=== PATIENT | female | born 1950 | race African-American/Black ===

== ENCOUNTER 2017-03-02 10:04 | Inpatient (IN) | payer OTHER ==
[2017-03-02 10:56] VITALS: BMI 51.5
[2017-03-02] MEDS ORDERED: methylPREDNISolone NA SUCC 125 MG/2 ML VIAL IVPB ONE (11:04)
[2017-03-02] MEDS ORDERED: ASPIRIN 81 MG CHEWABLE TABLETS PO ONE (11:05)
--- NOTE | 2017-03-02 11:09 | PDOC ---
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 Patient reports having a nose bleed last night. She reports waking up today with diffuse chest pain with slight wheezing. She alerted EMS and was given one nebulizer treatment with slight relief of symptoms. Patient states she was given steroid medication for two weeks and finished the medication yesterday. 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 Hernandez PCP: Dr. Jerome Springer <Paige Swanson - Last Filed: 03/02/17 15:29> - General Chief Complaint: Chest Pain Stated Complaint: Shortness of Breath Time Seen by Provider: 03/02/17 10:20 Past History - Past Medical History Anemia: Yes Asthma: Yes Cancer: No Cardiac Disorders: No CVA: Yes COPD: Yes CHF: Yes Dementia: No Diabetes: No GI Disorders: No Disorders: No HTN: Yes Hypercholesterolemia: Yes Liver Disease: No Seizures: No Thyroid Disease: No Other medical history: hx of PE, RA - Surgical History Cardiac Surgery: No Neurologic Surgery: No Orthopedic Surgery: Yes - Immunization History Immunization Up to Date: Yes - Psycho/Social/Smoking Cessation Hx Anxiety: No Suicidal Ideation: No Smoking Status: No Smoking History: Former smoker Have you smoked in the past 12 months: No Number of Cigarettes Smoked Daily: 0 If you are a former smoker, when did you quit?: 1999 Cigars Per Day: 5 Information on smoking cessation initiated: No 'Breaking Loose' booklet given: 11/20/13 Hx Alcohol Use: No Drug/Substance Use Hx: No Substance Use Type: None Hx Substance Use Treatment: No <Jay Hyman - Last Filed: 03/02/17 14:10> <Paige Swanson - Last Filed: 03/02/17 15:29> - Past Medical History Allergies/Adverse Reactions: Allergies Allergy/AdvReac Type Severity Reaction Status Date / Time No Known Allergies Allergy Verified 03/02/17 10:40 Home Medications: Ambulatory Orders Mometasone Furoate [Nasonex] 1 - 2 inh NS PRN 01/21/14 Olmesartan/Hydrochlorothiazide [Benicar Hct 20-12.5 mg Tablet] 1 each PO DAILY 01/21/14 Promethazine/Phenyleph/Codeine [Promethazine Vc-Codeine Syrup] 120 ml PO PRN Aspirin [ASA -] 81 mg PO DAILY #30 tab.chew 08/03/14 Cholecalciferol (Vitamin D3) [Vitamin D3] 2,000 unit PO DAILY #30 capsule Docusate Sodium [Colace -] 200 mg PO PRN #30 capsule 08/03/14 Miconazole Nitrate [Miconazole Nitrate -] 1 applic TP PRN #7 tube 08/03/14 Clobetasol Propionate/Emoll [Olux-E 0.05% Foam] 100 gm TP PRN 11/20/15 Acetaminophen [Tylenol] 650 mg PO TID PRN 11/23/15 Colchicine [Colcrys] 0.6 mg PO DAILY PRN 11/23/15 Levalbuterol Tartrate [Xopenex Hfa] 15 gm IH BID 11/23/15 Nystatin Oral Suspension - [Nystatin Oral Susp 203838 Units/5 ML -] 5 ml PO BID 11/23/15 Olopatadine HCl [Patanase] 665 mcg NS DAILY 11/23/15 Albuterol 0.083% Nebulizer Claudia [Ventolin 0.083% Nebulizer Soln -] 1 neb NEB QID PRN #7 vial 11/26/15 Budesonide/Formeterol Fumarate [SYMBICORT 160/4.5mcg -] 1 inh PO BID #7 inhaler 11/26/15 Cyclosporine [Restasis] 1 each OP BID #30 droperette 11/26/15 Ferrous Sulfate [Feosol] 325 mg PO TID #30 ud 11/26/15 Furosemide [Lasix -] 20 mg PO BID #60 tablet 11/26/15 Guaifenesin AC [Robitussin AC -] 5 ml PO Q6H PRN #30 liquid 11/26/15 Meclizine HCl [Antivert -] 12.5 mg PO BID #30 tablet 11/26/15 Nifedipine ER [Procardia XL -] 30 mg PO DAILY #30 tab.er.24 11/26/15 Pantoprazole Sodium [Protonix -] 40 mg PO DAILY #30 tablet.ec 11/26/15 Prednisone [Deltasone -] 25 mg PO BID #30 tablet 11/26/15 Rosuvastatin Calcium [Crestor] 10 mg PO HS #30 tablet 11/26/15 Tiotropium [place] [Spiriva] 1 inh PO DAILY #7 inh 11/26/15 Warfarin Na [Coumadin -] 4 mg PO [id number]@1800 #30 tablet 11/26/15 Review of Systems - Review of Systems Constitutional: No: Chills, Fever HEENTM: No: Nose Congestion Respiratory: Yes: Cough, Shortness of Breath Cardiac (ROS): Yes: Chest Pain ABD/GI: No: Nausea, Vomiting Musculoskeletal: No: Muscle Pain All Other Systems: Reviewed and Negative <Jay Hyman - Last Filed: 03/02/17 14:10> - Review of Systems Able to Perform ROS?: Yes Comments:: 03/02/17 11:35 CONSTITUTIONAL: Absent: fever, no chills, no fatigue EYES: Absent: visual changes ENT: Present: Epistaxis Absent: ear pain, no sore throat CARDIOVASCULAR: Absent: chest pain, no palpitations RESPIRATORY: Present: Shortness of breath and wheezing Absent: cough GI: Absent: abdominal pain, no nausea, no vomiting, no constipation, no diarrhea GENITOURINARY: Absent: dysuria, no frequency, no hematuria MUSCULOSKELETAL: Absent: back pain, no arthralgia, no myalgia SKIN: Absent: rash NEURO: Absent: headache <Uts,Paige - Last Filed: 03/02/17 15:29> *Physical Exam - Vital Signs Last Vital Signs Temp Pulse Resp BP Pulse Ox 98.6 F 108 H 20 147/70 98 03/02/17 10:40 03/02/17 10:40 03/02/17 10:40 03/02/17 10:40 03/02/17 10:40 <Jay Hyman - Last Filed: 03/02/17 14:10> - Vital Signs Last Vital Signs Temp Pulse Resp BP Pulse Ox 98.6 F 108 H 20 147/70 98 03/02/17 10:40 03/02/17 10:40 03/02/17 10:40 03/02/17 10:40 03/02/17 10:40 - Physical Exam Comments: 03/02/17 11:36 GENERAL: Morbidly obese. Speaks in full sentences. Well-appearing, well-nourished. No apparent distress. HEENT: Left lateral subconjunctival hemorrhage. No chemosis. Normocephalic, atraumatic. PERRL, EOM intact. CARDIOVASCULAR: Normal S1, S2. Regular rate and rhythm. PULMONARY: Tachypnea. Distant breath sounds with some end expiratory wheezing. Prolonged expiration. No focal decreased breath sounds. ABDOMEN: Discomfort in the upper abdomen, no guarding. EXTREMITIES: 1+ edema in the bilateral lower extremities, with no calf tenderness or swelling. SKIN: Warm, dry. No rash NEUROLOGICAL: No focal neurological deficits. <Paige Swanson - Last Filed: 03/02/17 15:29> Heart Score/ECG Review #1 ECG reviewed & interpreted by me at: 10:41 General ECG Interpretation: Sinus Rhythm (tachy at 113), Normal Intervals (qtc 419), No acute ischemic changes <Jay Hyman - Last Filed: 03/02/17 14:10> ED Treatment Course - LABORATORY CBC & Chemistry Diagram: 03/02/17 11:00 03/02/17 11:00 - RADIOLOGY Radiology Studies Ordered: Category Date Time Status CHEST X-RAY PORTABLE* [RAD] Stat Radiology 03/02/17 10:36 Ordered <Jay Hyman - Last Filed: 03/02/17 14:10> - LABORATORY CBC & Chemistry Diagram: 03/02/17 11:00 03/02/17 11:00 - Medications Given in the ED: ED Medications Discontinued Medications Generic Name Dose Route Start Last Admin Trade Name Freq PRN Reason Stop Dose Admin Aspirin 162 mg 03/02/17 11:05 03/02/17 11:22 Asa - PO 03/02/17 11:06 162 mg ONCE ONE Administration Methylprednisolone Sodium Succinate 125 mg 03/02/17 11:04 03/02/17 11:22 Solu-Medrol - IVPB 03/02/17 11:05 125 mg ONCE ONE Administration <Paige Swanson - Last Filed: 03/02/17 15:29> Medical Decision Making - Medical Decision Making 03/02/17 11:06 A portion of this note was documented by scribe services under my direction. I have reviewed the details of the note, within reason, and agree with the documentation with the following case summary and management plan written by me. 66-year-old female with history of COPD on home O2 and CHF p/w chest congestion and L chest pain since this morning. EMS activated, given nebulizers with some improvement. no clear precipitating risk factor of change in cough/fever. vitals as noted, tachypneic diffuse end expiratory wheeze with prolonged expiration abdomen soft 66y/o F with both COPD and CHF p/w chest congestion/wheezing with some chest pain. Seems more consistent with COPD exacerbation, possible fluid. labs, ua ekg, cxr nebs, steroids, asa admit 03/02/17 13:27 White count 15.9, but completed steroid course yesterday. Hemoglobin 7.9, slightly worse than her baseline of 9. Creatinine 1.3, which is her baseline, troponin negative. Chest x-ray shows CHF but no acute infiltrate. Feels much better after nebulizers, received steroids. Will proceed with admission, Dr. 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 03/02/17 14:10 Accepted for inpatient tele by Dr. Whitlock, covering Dr. Springer. <Jay Hyman - Last Filed: 03/02/17 14:10> - Medical Decision Making 03/02/17 14:[address] Whitlock <Paige Swanson - Last Filed: 03/02/17 15:29> *DC/Admit/Observation/Transfer - Discharge Dispostion Admit: Yes <Jay Hyman - Last Filed: 03/02/17 14:10> - Attestations Scribe Attestion: 03/02/17 11:40 Documentation prepared by Paige Swanson, acting as medical officer psychiatry for Jay Hyman MD. <Paige Swanson - Last Filed: 03/02/17 15:29> Diagnosis at time of Disposition: COPD exacerbation CHF (congestive heart failure) Qualifiers: Congestive heart failure type: unspecified congestive heart failure type Congestive heart failure chronicity: chronic Qualified Code(s): I50.9 - Heart failure, unspecified - Discharge Dispostion Condition at time of disposition: Fair - Referrals
[2017-03-02 11:10] LABS: BASOPHIL 0.5 % (0-2.0); EOSINOPHIL 0.6 % (0-4.5); MCH 21.7 pg (25.7-33.7); MCHC 28.6 g/dl (32.0-36.0); MEAN CELL VOLUME 75.9 fl (80-96); MEAN PLT VOLUME 8.5 fl (7.5-11.1); NEUTROPHILS 84.9 % (42.8-82.8); PLATELET COUNT 219 K/MM3 (134-434); RDW 15.9 % (11.6-15.6); WHITE BLOOD COUNT 15.9 K/mm3 (4.0-10.0)
[2017-03-02] MEDS ORDERED: ASPIRIN 81 MG CHEWABLE TABLETS ONE (11:17)
[2017-03-02] MEDS ORDERED: methylPREDNISolone NA SUCC 125 MG/2 ML VIAL ONE (11:17)
[2017-03-02] MEDS ORDERED: ALBUTEROL SO4 2.5/IPRATROPIUM 0.5 INH SOL 3 ML VIAL.NEB. NEB ONE (11:17)
[2017-03-02] MEDS: ALBUTEROL SO4 2.5/IPRATROPIUM 0.5 INH SOL 3 ML VIAL.NEB. NEB SCH ×3 (11:22→13:43)
[2017-03-02 11:28] LABS: PROTHROMBIN TIME (PATIENT) 45.8 SEC (9.98-11.88)
[2017-03-02 11:48] LABS: ALBUMIN 3.5 g/dl (3.4-5.0); ANION GAP 8 (8-16); BILIRUBIN,TOTAL 0.3 mg/dL (0.2-1.0); CALCIUM 8.2 mg/dL (8.5-10.1); CO2 32 mmol/L (21-32); CREATININE 1.3 mg/dL (0.55-1.02); GLUCOSE,RANDOM 131 mg/dL (74-106); MAGNESIUM 1.8 mg/dL (1.8-2.4); SGOT/AST 19 U/L (15-37); SGPT/ALT 26 U/L (12-78); TOT PROT 6.5 g/dl (6.4-8.2)
[2017-03-02 11:49] LABS: ALK PHOS 66 U/L (45-117); TROPONIN I < 0.02 ng/ml (0.00-0.05)
[2017-03-02 11:52] LABS: INR 4.05 (0.82-1.09)
--- NOTE | 2017-03-02 12:34 | EKG ---
Test Reason : Blood Pressure : / mmHG Vent. Rate : 113 BPM Atrial Rate : 113 BPM P-R Int : 162 ms QRS Dur : 062 ms QT Int : 306 ms P-R-T Axes : 067 -04 019 degrees QTc Int : 419 ms SINUS TACHYCARDIA LOW VOLTAGE QRS POSSIBLE INFERIOR INFARCT , AGE UNDETERMINED ABNORMAL ECG WHEN COMPARED WITH ECG OF 20-NOV-2015 05:57, NO SIGNIFICANT CHANGE WAS FOUND Confirmed by CESAR CEVALLOS MD ([id number]) on 03/02/2017 12:34:40 PM Referred By: Confirmed By:CESAR CEVALLOS MD
[2017-03-02] MEDS ORDERED: LEVOFLOXACIN 750 MG IVPB 150 ML IVPB ONE (15:52)
--- NOTE | 2017-03-02 16:00 | PN ---
Teaching Attending Note Name of Resident: Peter Bolivar ATTENDING PHYSICIAN STATEMENT I saw and evaluated the patient. I reviewed the resident's note and discussed the case with the resident. I agree with the resident's findings and plan as documented. PULMONARY IMP DYSPNEA ADVANCED COPD O2 DEPENDENT WITH ACUTE EXACERBATION CHRONIC HYPOXEMIC RESPIRATORY CHF PULMONARY HTN H/O PULMONARY EMBOLISM EPISTAXIS SUPRA-THERAPEUTIC INR PLAN INHALED BRONCHODILATORS O2 ANTIBIOTICS SPUTUM C+S CHEST CT MONITOR INR ENT EVALUATION DR FOX
--- NOTE | 2017-03-02 16:06 | CONSULT ---
Consultation: REQUESTING PROVIDER: CONSULT REQUEST: We have been asked to medically evaluate this patient for ( pulmonology). HISTORY OF PRESENT ILLNESS: 66 y/o f with pmh of copd, chf, stroke, pulmonary embolism, pulmonary htn. Came to hospital with a complaint sob and chest pain. Patient states that she woke up with sob, she states that she has couple of episodes of copd excerbration every year. She states that this sob is also like her old one and she has weezing with it. Denies swelling in legs, denies recent travel. Patient states that she was on antibiotics and steroid taper. She finished her antibiotics around 10 days ago but from thursday she agian started having productive cough, yellow color sputum, increasing. She also report chills but denies fever. Patient also states that she has chest pain in middle of chest, and left side, radiating to left arm, constant, increase on lying down and got better with nebulizer therapy. Denies trauma to chest. Patient also reports epistaxis last night, which lasted for more than 2 hours. She states normally when she has epistaxis it stop in 15-20min. Patient also complaints of vaginal yeast infection. in ED patient got duoneb treatment and patient feels better. wheezing improved. REVIEW OF SYSTEMS: CONSTITUTIONAL: Absent: fever, chills, diaphoresis, HEENT: Absent: rhinorrhea, nasal congestion, throat pain, throat swelling, CARDIOVASCULAR: Absent: chest pain, syncope, palpitations, irregular heart rate, lightheadedness , peripheral edema RESPIRATORY: Absent: cough, shortness of breath, dyspnea with exertion, orthopnea, wheezing, stridor, hemoptysis GASTROINTESTINAL: Absent: abdominal pain, abdominal distension, nausea, vomiting, diarrhea, constipation, GENITOURINARY: Absent: dysuria, frequency, urgency, hesitancy, NEUROLOGIC: Absent: headache, PHYSICAL EXAMINATION GENERAL: Awake, alert, and fully oriented, in no acute distress. HEAD: Normal with no signs of trauma. EARS, NOSE, THROAT: Ears normal, nares patent. Moist mucous membranes. NECK: Normal range of motion, supple without lymphadenopathy, JVD, or masses. LUNGS: Breath sounds equal, clear to auscultation bilaterally.mild expiratory wheez HEART: Regular rate and rhythm, normal S1 and S2 without murmur, rub or gallop. ABDOMEN: Soft, nontender, not distended, normoactive bowel sounds, MUSCULOSKELETAL: Normal range of motion at all joints. No bony deformities or tenderness. No CVA tenderness. UPPER EXTREMITIES: 2+ pulses, warm, well-perfused. No cyanosis. LOWER EXTREMITIES: 2+ pulses, warm, well-perfused. No calf tenderness. No peripheral edema. Active Medications Generic Name Dose Route Start Last Admin Trade Name Freq PRN Reason Stop Dose Admin Albuterol Sulfate 1 amp 03/02/17 15:42 Ventolin 0.083% Nebulizer Soln - NEB Q4H PRN SHORT OF BREATH/WHEEZING Albuterol/Ipratropium 1 amp 03/02/17 15:42 Duoneb - NEB Q6H PRN SHORTNESS OF BREATH Levofloxacin 150 mls @ 100 mls/hr 03/02/17 15:52 Levaquin 750 Mg Premixed Ivpb - IVPB 03/02/17 17:21 ONCE ONE Methylprednisolone Sodium Succinate 40 mg 03/02/17 21:00 Solu-Medrol - IVPB Q6H-IV SAIMA Miconazole Nitrate 1 applic 03/02/17 22:00 Monistat-7 Vaginal Cream - VG 03/08/17 22:01 HS SAIMA Nystatin 500,000 unit 03/02/17 22:00 Mycolog - PO TID SAIMA Sodium Chloride 2 spray 03/02/17 15:46 [place] Nasal [place] - NS TID PRN NASAL CONGESTION ASSESSMENT DYSPNEA copd excerbration, Has advanced copd with oxygen dependent in home chf epistaxis supra therapeutic inr h/o pulmonary hypertension h/o pulmonary embolism h/o stroke h/o htn PLAN duoneb nebulizer iv steroid oxygen keep spo2 . 90 antibitics, levaquin get sputum c/s urine for legioneall/ strep Ct chest w/o contrast monitor vitals monitor inr ent evaluation cardiology evaluation Dispo: We will continue to follow the patient. Thank you for this consultative opportunity. Visit type - Emergency Visit Emergency Visit: Yes ED Registration Date: 03/02/17 Care time: The patient presented to the Emergency Department on the above date and was hospitalized for further evaluation of their emergent condition. - New Patient This patient is new to me today: Yes Date on this admission: 03/02/17 - Critical Care Critical Care patient: No
[2017-03-02] MEDS: ALBUTEROL SO4 2.5/IPRATROPIUM 0.5 INH SOL 3 ML VIAL.NEB. NEB PRN ×2 (16:23→22:39)
[2017-03-02 17:34] LABS: HYPOCHROMIA 2+; POLYCHROMASIA 1+
[2017-03-02] MEDS ORDERED: methylPREDNISolone NA SUCC 40 MG/1 ML VIAL IVPB SCH (21:00)
--- NOTE | 2017-03-02 21:22 | HP ---
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 Patient reports having a nose bleed last night. She reports waking up today with diffuse chest pain with slight wheezing. She alerted EMS and was given one nebulizer treatment with slight relief of symptoms. 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 Cardiovascular: Yes: CHF (chronic diastolic), HTN, Hyperlipdemia Pulmonary: Yes: COPD, O2 Dependent, Pulmonary Embolus, Other (pulmonary HTN) - Smoking History Smoking history: Former smoker Have you smoked in the past 12 months: No Aproximately how many cigarettes per day: 0 If you are a former smoker, when did you quit?: 1998 - Alcohol/Substance Use Hx Alcohol Use: No - Social History History of Recent Travel: No Home Medications - Allergies Allergies/Adverse Reactions: Allergies Allergy/AdvReac Type Severity Reaction Status Date / Time No Known Allergies Allergy Verified 03/02/17 10:40 - Home Medications Home Medications: Ambulatory Orders Mometasone Furoate [Nasonex] 1 - 2 inh NS PRN 01/21/14 Olmesartan/Hydrochlorothiazide [Benicar Hct 20-12.5 mg Tablet] 1 each PO DAILY 01/21/14 Promethazine/Phenyleph/Codeine [Promethazine Vc-Codeine Syrup] 120 ml PO PRN Aspirin [ASA -] 81 mg PO DAILY #30 tab.chew 08/03/14 Cholecalciferol (Vitamin D3) [Vitamin D3] 2,000 unit PO DAILY #30 capsule Docusate Sodium [Colace -] 200 mg PO PRN #30 capsule 08/03/14 Miconazole Nitrate [Miconazole Nitrate -] 1 applic TP PRN #7 tube 08/03/14 Clobetasol Propionate/Emoll [Olux-E 0.05% Foam] 100 gm TP PRN 11/20/15 Acetaminophen [Tylenol] 650 mg PO TID PRN 11/23/15 Colchicine [Colcrys] 0.6 mg PO DAILY PRN 11/23/15 Levalbuterol Tartrate [Xopenex Hfa] 15 gm IH BID 11/23/15 Nystatin Oral Suspension - [Nystatin Oral Susp 102534 Units/5 ML -] 5 ml PO BID 11/23/15 Olopatadine HCl [Patanase] 665 mcg NS DAILY 11/23/15 Albuterol 0.083% Nebulizer Claudia [Ventolin 0.083% Nebulizer Soln -] 1 neb NEB QID PRN #7 vial 11/26/15 Budesonide/Formeterol Fumarate [SYMBICORT 160/4.5mcg -] 1 inh PO BID #7 inhaler 11/26/15 Cyclosporine [Restasis] 1 each OP BID #30 droperette 11/26/15 Ferrous Sulfate [Feosol] 325 mg PO TID #30 ud 11/26/15 Furosemide [Lasix -] 20 mg PO BID #60 tablet 11/26/15 Guaifenesin AC [Robitussin AC -] 5 ml PO Q6H PRN #30 liquid 11/26/15 Meclizine HCl [Antivert -] 12.5 mg PO BID #30 tablet 11/26/15 Nifedipine ER [Procardia XL -] 30 mg PO DAILY #30 tab.er.24 11/26/15 Pantoprazole Sodium [Protonix -] 40 mg PO DAILY #30 tablet.ec 11/26/15 Prednisone [Deltasone -] 25 mg PO BID #30 tablet 11/26/15 Rosuvastatin Calcium [Crestor] 10 mg PO HS #30 tablet 11/26/15 Tiotropium [place] [Spiriva] 1 inh PO DAILY #7 inh 11/26/15 Warfarin Na [Coumadin -] 4 mg PO MoTuThFrSa@1800 #30 tablet 11/26/15 Family Disease History - Family Disease History Family History: Unremarkable Review of Systems - Review of Systems Constitutional: reports: Weakness Eyes: reports: Other (conjunctival hemorrhae lt eye w/ itchyness) Neck: reports: No Symptoms Cardiovascular: reports: Shortness of Breath Respiratory: reports: Cough, SOB, Wheezing Gastrointestinal: reports: No Symptoms Genitourinary: reports: No Symptoms Physical Examination Vital Signs: Vital Signs Temperature 98.3 F 03/02/17 19:57 Pulse Rate 104 H 03/02/17 19:57 Respiratory Rate 22 03/02/17 19:57 Blood Pressure 184/92 03/02/17 19:57 O2 Sat by Pulse Oximetry (%) 95 03/02/17 19:57 Constitutional: Yes: Obese Eyes: Yes: Other (Lt conjunctival hemorrhage) HENT: Yes: WNL Neck: Yes: Supple Cardiovascular: Yes: WNL, Regular Rate and Rhythm Respiratory: Yes: Wheezes Gastrointestinal: Yes: WNL, Normal Bowel Sounds, Soft, Abdomen, Obese Problem List - Problems (1) COPD exacerbation Assessment/Plan: Cont IV steroids/antibx Pulmonary consult Cont nebulizers Cont symbicort Code(s): J44.1 - CHRONIC OBSTRUCTIVE PULMONARY DISEASE W (ACUTE) EXACERBATION (2) Chronic diastolic (congestive) heart failure Code(s): I50.32 - CHRONIC DIASTOLIC (CONGESTIVE) HEART FAILURE (3) Coronary artery disease Code(s): I25.10 - ATHSCL HEART DISEASE OF [place] CORONARY ARTERY W/O ANG PCTRS (4) DVT (deep venous thrombosis) Assessment/Plan: Hold coumadin for today Daily PT/INR and adjust coumadin dose Code(s): I82.409 - ACUTE EMBOLISM AND THOMBOS UNSP DEEP VN UNSP LOWER EXTREMITY (5) History of pulmonary embolism Code(s): Z86.711 - PERSONAL HISTORY OF PULMONARY EMBOLISM (6) Hypertension Code(s): I10 - ESSENTIAL (PRIMARY) HYPERTENSION (7) Obesity Code(s): E66.9 - OBESITY, UNSPECIFIED
[2017-03-02] MEDS ORDERED: FUROSEMIDE 20 MG TABLET (FP) PO SCH (22:00)
[2017-03-02] MEDS ORDERED: NYSTATIN 500,000 UNITS TABLET PO SCH (22:00)
[2017-03-02] MEDS ORDERED: PATIENT'S OWN MEDICATION (NON-FORMULARY) (Cyclosporine [Restasis] 1 EACH) OP SCH (22:00)
[2017-03-02] MEDS: BUDESONIDE/FORMETEROL FUMARATE 160/4.5 mcg INHALER IH SCH (22:32)
[2017-03-02] MEDS: ACLIDINIUM BROMIDE 400 MCG/INH AERO.POWD IH SCH (22:33)
[2017-03-02] MEDS: MICONAZOLE NITRATE 2% VAGINAL CREAM 45 GM TUBE VG SCH (22:34)
[2017-03-02] MEDS: FERROUS SO4 325 MG TABLET (FP) PO SCH (22:34)
[2017-03-02] MEDS: MECLIZINE HCL 12.5 MG TABLET PO SCH (22:34)
[2017-03-02] MEDS: ROSUVASTATIN CA 10 MG TABLET (FP) PO SCH (22:34)
[2017-03-02] MEDS: FLUTICASONE PROP 0.05% 16 GM NASAL SPRAY NS SCH (22:34)
[2017-03-02] MEDS: NYSTATIN 500,000 UNITS/5 ML SUSPENSION PO SCH (22:36)
[2017-03-03] MEDS: methylPREDNISolone NA SUCC 40 MG/1 ML VIAL IVPB SCH ×3 (02:10→17:49)
[2017-03-03] MEDS: ALBUTEROL SO4 0.083% IH SOL 2.5 MG/3 ML VIAL.NEB. NEB PRN ×2 (06:15→14:30)
[2017-03-03] MEDS: FERROUS SO4 325 MG TABLET (FP) PO SCH ×3 (06:37→21:47)
[2017-03-03] MEDS: NYSTATIN 500,000 UNITS/5 ML SUSPENSION PO SCH ×3 (06:39→21:48)
[2017-03-03 08:09] LABS: BASOPHIL 0.1 % (0-2.0); MCH 21.6 pg (25.7-33.7); MCHC 28.4 g/dl (32.0-36.0); MEAN CELL VOLUME 76.2 fl (80-96); MEAN PLT VOLUME 9.4 fl (7.5-11.1); NEUTROPHILS 88.2 % (42.8-82.8); PLATELET COUNT 255 K/MM3 (134-434); RDW 15.6 % (11.6-15.6); WHITE BLOOD COUNT 16.2 K/mm3 (4.0-10.0)
--- NOTE | 2017-03-03 08:19 | CON.CARD ---
Consult Consult Specialty:: Cardiology Referred by:: ER Reason for Consultation:: Chest pain, sob - History of Present Illness Chief Complaint: Chest pain, sob History of Present Illness: 66 year old woman with a history of HTN, HLD, normal coronary arteries on cardiac cath 2013, chronic diastolic chf, COPD, pulm HTN, h/o Pulmonary embolism , CVA on coumadin admitted with chest pain and sob. Pt. seen and examined today in nad. Pt. states that thursday night she noticed hemorrhage in her left eye. when she woke up thursday morning she felt chest pain and sob. she does note a recent URI for which she was tx with Abx and steroids starting approx 1 week ago. SOB worse with exertion. denies pnd, orthopnea, or LE edema. no lightheadedness, dizziness, syncope, or near syncope. 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 Cardio/Vascular: Yes: CHF (chronic diastolic), HTN, Hyperlipdemia Pulmonary: Yes: COPD, O2 Dependent, Pulmonary Embolus, Other (pulmonary HTN) - Alcohol/Substance Use Hx Alcohol Use: No - Smoking History Smoking history: Former smoker Have you smoked in the past 12 months: No Aproximately how many cigarettes per day: 0 If you are a former smoker, when did you quit?: 1998 - Social History Usual Living Arrangement: Alone History of Recent Travel: No Home Medications - Allergies Allergies/Adverse Reactions: Allergies Allergy/AdvReac Type Severity Reaction Status Date / Time No Known Allergies Allergy Verified 03/02/17 10:40 - Home Medications Home Medications: Ambulatory Orders Mometasone Furoate [Nasonex] 1 - 2 inh NS PRN 01/21/14 Olmesartan/Hydrochlorothiazide [Benicar Hct 20-12.5 mg Tablet] 1 each PO DAILY 01/21/14 Promethazine/Phenyleph/Codeine [Promethazine Vc-Codeine Syrup] 120 ml PO PRN Aspirin [ASA -] 81 mg PO DAILY #30 tab.chew 08/03/14 Cholecalciferol (Vitamin D3) [Vitamin D3] 2,000 unit PO DAILY #30 capsule Docusate Sodium [Colace -] 200 mg PO PRN #30 capsule 08/03/14 Miconazole Nitrate [Miconazole Nitrate -] 1 applic TP PRN #7 tube 08/03/14 Clobetasol Propionate/Emoll [Olux-E 0.05% Foam] 100 gm TP PRN 11/20/15 Acetaminophen [Tylenol] 650 mg PO TID PRN 11/23/15 Colchicine [Colcrys] 0.6 mg PO DAILY PRN 11/23/15 Levalbuterol Tartrate [Xopenex Hfa] 15 gm IH BID 11/23/15 Nystatin Oral Suspension - [Nystatin Oral Susp 274404 Units/5 ML -] 5 ml PO BID 11/23/15 Olopatadine HCl [Patanase] 665 mcg NS DAILY 11/23/15 Albuterol 0.083% Nebulizer Claudia [Ventolin 0.083% Nebulizer Soln -] 1 neb NEB QID PRN #7 vial 11/26/15 Budesonide/Formeterol Fumarate [SYMBICORT 160/4.5mcg -] 1 inh PO BID #7 inhaler 11/26/15 Cyclosporine [Restasis] 1 each OP BID #30 droperette 11/26/15 Ferrous Sulfate [Feosol] 325 mg PO TID #30 ud 11/26/15 Furosemide [Lasix -] 20 mg PO BID #60 tablet 11/26/15 Guaifenesin AC [Robitussin AC -] 5 ml PO Q6H PRN #30 liquid 11/26/15 Meclizine HCl [Antivert -] 12.5 mg PO BID #30 tablet 11/26/15 Nifedipine ER [Procardia XL -] 30 mg PO DAILY #30 tab.er.24 11/26/15 Pantoprazole Sodium [Protonix -] 40 mg PO DAILY #30 tablet.ec 11/26/15 Prednisone [Deltasone -] 25 mg PO BID #30 tablet 11/26/15 Rosuvastatin Calcium [Crestor] 10 mg PO HS #30 tablet 11/26/15 Tiotropium [place] [Spiriva] 1 inh PO DAILY #7 inh 11/26/15 Warfarin Na [Coumadin -] 4 mg PO MoTuThFrSa@1800 #30 tablet 11/26/15 Vital Signs: Vital Signs Temperature 98.6 F 03/03/17 06:00 Pulse Rate 88 03/03/17 06:00 Respiratory Rate 20 03/03/17 06:00 Blood Pressure 126/63 03/03/17 06:00 O2 Sat by Pulse Oximetry (%) 95 03/02/17 21:00 - Other Data Labs, Other Data: INR, PTT INR 4.05 (0.82-1.09) H* D 03/02/17 11:00 Assessment/Plan 66 year old woman with a history of HTN, HLD, normal coronary arteries on cardiac cath 2013, chronic diastolic chf, COPD, pulm HTN, h/o Pulmonary embolism , CVA on coumadin admitted with chest pain and sob. Pt. seen and examined today in nad. Pt. states that thursday night she noticed hemorrhage in her left eye. when she woke up thursday morning she felt chest pain and sob. she does note a recent URI for which she was tx with Abx and steroids starting approx 1 week ago. SOB worse with exertion. SOB/chest tightness-likely AE COPD, possible mild acute on chronic diastolic CHF , unlikely ACS -cardiac cath a few years ago showed normal coronary arteries -no ischemia on ekg -cardiac enzymes wnl x 1, would check another set -no arrhythmia on tele -not significantly volume overloaded, cont po Lasix -pulmonary f/up -unlikely recurrent PE given supratherapeutic INR on admission -can check echo to re-evaluate pulm htn, RV function, lv function -ok to dc tele HTN-adequately controlled -cont home medical regimen H/o PE's-supratherapeutic INR -hold coumadin until INR in target range
[2017-03-03 08:43] LABS: INR 3.88 (0.82-1.09); PROTHROMBIN TIME (PATIENT) 43.9 SEC (9.98-11.88)
[2017-03-03 08:55] LABS: ALBUMIN 3.8 g/dl (3.4-5.0); BILIRUBIN,TOTAL 0.3 mg/dL (0.2-1.0); COCKROFT - GAULT 78.013; CREATININE 1.3 mg/dL (0.55-1.02); TOT PROT 7.1 g/dl (6.4-8.2)
[2017-03-03] MEDS: HYDROCHLOROTHIAZIDE 12.5 MG CAPSULE (FP) PO SCH (09:39)
[2017-03-03] MEDS: LEVOFLOXACIN 500 MG IVPB 100 ML IVPB SCH (09:39)
[2017-03-03] MEDS: PANTOPRAZOLE 20 MG TABLET (FP) PO SCH (09:40)
[2017-03-03] MEDS: MECLIZINE HCL 12.5 MG TABLET PO SCH ×2 (09:40→21:46)
[2017-03-03] MEDS: NIFEdipine E.R. 30 MG TABLET (FP) PO SCH (09:40)
[2017-03-03] MEDS: VALSARTAN 160 MG TABLET (UD) PO SCH (09:40)
[2017-03-03] MEDS: ASPIRIN 81 MG CHEWABLE TABLETS PO SCH (09:40)
[2017-03-03] MEDS: BUDESONIDE/FORMETEROL FUMARATE 160/4.5 mcg INHALER IH SCH ×2 (09:42→21:47)
[2017-03-03] MEDS: FLUTICASONE PROP 0.05% 16 GM NASAL SPRAY NS SCH ×2 (09:43→21:49)
[2017-03-03] MEDS: ACLIDINIUM BROMIDE 400 MCG/INH AERO.POWD IH SCH (09:55)
[2017-03-03] MEDS ORDERED: AZITHROMYCIN IVPB 500 MG in DEXTROSE 5%-WATER - 250 ML IVPB SCH (10:00)
[2017-03-03] MEDS ORDERED: CEFTRIAXONE 1 GM in DEXTROSE 5%-WATER - 50 ML IVPB SCH (10:00)
[2017-03-03] MEDS ORDERED: OLOPATADINE HCL NS SCH (10:00)
[2017-03-03] MEDS ORDERED: PATIENT'S OWN MEDICATION (NON-FORMULARY) (Olmesartan/Hydrochlorothiazide [Benicar Hct 20-1 PO SCH (10:00)
--- NOTE | 2017-03-03 10:11 | PN ---
Physical Exam: SUBJECTIVE: Patient seen and examined patient states that she again woke up in morning with sob, but it has improved since yesterday. states lightheadedness has improved since yesterday denies chest pain, nausea, vomiting. complains of irritation in eye in right eye. wheezing decreased since yesterday. OBJECTIVE: Vital Signs Period Temp Pulse Resp BP Sys/Nielsen Pulse Ox Last 24 Hr 98.1 F-98.6 F 61-108 16-22 126-184/63-94 95-100 GENERAL: Awake, alert, and fully oriented, in no acute distress. HEAD: Normal with no signs of trauma. EARS, NOSE, THROAT: Ears normal, nares patent. Moist mucous membranes. NECK: Normal range of motion, without lymphadenopathy, LUNGS: Breath sounds equal, clear to auscultation bilaterally.mild wheez i the end of expiration HEART: Regular rate and rhythm, normal S1 and S2 without murmur, rub or gallop. ABDOMEN: Soft, nontender, not distended, normoactive bowel sounds, MUSCULOSKELETAL: Normal range of motion at all joints. No bony deformities or tenderness. No CVA tenderness. UPPER EXTREMITIES: 2+ pulses, warm, well-perfused. No cyanosis. LOWER EXTREMITIES: 2+ pulses, warm, well-perfused. No calf tenderness. No peripheral edema. Laboratory Results - last 24 hr 03/03/17 03/03/17 03/03/17 06:00 06:00 06:00 WBC 16.2 H RBC 3.86 Hgb 8.3 L Hct 29.4 L MCV 76.2 L MCHC 28.4 L RDW 15.6 Plt Count 255 MPV 9.4 D Neutrophils % 88.2 H Lymphocytes % 8.8 D Monocytes % 2.9 L Eosinophils % 0.0 D Basophils % 0.1 INR 3.88 H Sodium 143 Potassium 5.1 D Chloride 101 Carbon Dioxide 32 Anion Gap 10 BUN 21 H Creatinine 1.3 H Creat Clearance w eGFR 40.73 Random Glucose 171 H D Calcium 9.0 Total Bilirubin 0.3 AST 16 ALT 25 Alkaline Phosphatase 66 Total Protein 7.1 Albumin 3.8 Active Medications Generic Name Dose Route Start Last Admin Trade Name Freq PRN Reason Stop Dose Admin Albuterol Sulfate 1 amp 03/02/17 15:42 03/03/17 06:15 Ventolin 0.083% Nebulizer Soln - NEB 1 amp Q4H PRN Administration SHORT OF BREATH/WHEEZING Albuterol/Ipratropium 1 amp 03/03/17 12:00 Duoneb - NEB QIDR TWIN Aspirin 81 mg 03/03/17 10:00 03/03/17 09:40 Asa - PO 81 mg DAILY TWIN Administration Budesonide/Formoterol Fumarate 1 puff 03/02/17 22:00 03/03/17 09:42 Symbicort 160/4.5mcg - IH 1 puff BID [facility]WIN Administration Docusate Sodium 200 mg 03/02/17 21:30 Colace - PO PRN TWIN Ferrous Sulfate 325 mg 03/02/17 22:00 03/03/17 06:37 Feosol - PO Not Given TID TWIN Fluticasone Propionate 1 spray 03/02/17 22:00 03/03/17 09:43 Flonase - NS 1 spray BID TWIN Administration Furosemide 20 mg 03/03/17 14:00 Lasix - PO BIDLASIX [facility] Hydrochlorothiazide 12.5 mg 03/03/17 10:00 03/03/17 09:39 Hctz - PO 12.5 mg DAILY [facility] Administration Levofloxacin 100 mls @ 100 mls/hr 03/03/17 10:00 03/03/17 09:39 Levaquin 500 Mg Premixed Ivpb - IVPB 100 mls/hr DAILY [facility] Administration Meclizine HCl 12.5 mg 03/02/17 22:00 03/03/17 09:40 Antivert - PO 12.5 mg BID [facility]WIN Administration Methylprednisolone Sodium Succinate 40 mg 03/03/17 02:00 03/03/17 09:41 Solu-Medrol - IVPB 40 mg Q8H-IV [facility]WIN Administration Miconazole Nitrate 1 applic 03/02/17 22:00 03/02/17 22:34 Monistat-7 Vaginal Cream - VG 03/08/17 22:01 1 applic HS [facility]WIN Administration Nifedipine 30 mg 03/03/17 10:00 03/03/17 09:40 Procardia Xl - PO 30 mg DAILY [facility] Administration Non-Formulary Medication 1 each 03/02/17 22:00 Cyclosporine [Restasis] OP BID [facility] Non-Formulary Medication 665 mcg 03/03/17 10:00 Olopatadine Hcl [Patanase] NS DAILY [facility] Nystatin 500,000 units 03/02/17 22:00 03/03/17 06:39 Nystatin Oral Suspension - PO 500,000 units TID [facility]WIN Administration Pantoprazole Sodium 40 mg 03/03/17 10:00 03/03/17 09:40 Protonix - PO 40 mg DAILY [facility] Administration Rosuvastatin Calcium 10 mg 03/02/17 22:00 03/02/17 22:34 Crestor - PO 10 mg HS [facility]WIN Administration Sodium Chloride 2 spray 03/02/17 15:46 [place] Nasal [place] - NS TID PRN NASAL CONGESTION Valsartan 160 mg 03/03/17 10:00 03/03/17 09:40 Diovan - PO 160 mg DAILY [facility]WIN Administration ASSESSMENT/PLAN: DYSPNEA copd excerbration, Has advanced copd with oxygen dependent in home chf epistaxis supra therapeutic inr h/o pulmonary hypertension h/o pulmonary embolism h/o stroke h/o htn PLAN duoneb nebulizer qid twin iv solumedrol 40 q8h humdified oxygen keep spo2 > 90 ocean nasal spray on iv levaquin get sputum c/s get urine for legioneall/ strep monitor vitals monitor inr, still elevated. ent evaluation for epistaxis cardiology evaluation appreciated consider opthalmology evaluation. Dispo: We will continue to follow the patient. Thank you for this consultative opportunity. Visit type - Emergency Visit Emergency Visit: Yes ED Registration Date: 03/02/17 Care time: The patient presented to the Emergency Department on the above date and was hospitalized for further evaluation of their emergent condition. - New Patient This patient is new to me today: No - Critical Care Critical Care patient: No
[2017-03-03] MEDS: ALBUTEROL SO4 2.5/IPRATROPIUM 0.5 INH SOL 3 ML VIAL.NEB. NEB SCH ×3 (11:00→23:30)
--- NOTE | 2017-03-03 11:06 | PN ---
Teaching Attending Note Name of Resident: Peter Bolivar ATTENDING PHYSICIAN STATEMENT I saw and evaluated the patient. I reviewed the resident's note and discussed the case with the resident. I agree with the resident's findings and plan as documented. pulmonary alert,feeling better,less dyspneic,-epistaxis. chest ct - infiltrates IMP DYSPNEA ADVANCED COPD O2 DEPENDENT WITH ACUTE EXACERBATION CHRONIC HYPOXEMIC RESPIRATORY CHF PULMONARY HTN H/O PULMONARY EMBOLISM EPISTAXIS SUPRA-THERAPEUTIC INR PLAN INHALED BRONCHODILATORS O2 ANTIBIOTICS STEROIDS MONITOR INR ENT EVALUATION DR FOX
[2017-03-03] MEDS: FUROSEMIDE 20 MG TABLET (FP) PO SCH (14:35)
[2017-03-03] MEDS: SODIUM CHLORIDE NASAL SPRAY 44 ML BOTTLE NS PRN ×2 (17:50→21:47)
[2017-03-03] MEDS ORDERED: WARFARIN NA 2 MG TABLET (UD) PO SCH (18:00)
[2017-03-03] MEDS: ROSUVASTATIN CA 10 MG TABLET (FP) PO SCH (21:47)
[2017-03-03] MEDS: MICONAZOLE NITRATE 2% VAGINAL CREAM 45 GM TUBE VG SCH (21:49)
--- NOTE | 2017-03-04 00:09 | PN ---
Progress Note, Physician History of Present Illness: Pt c/o itchiness of lt eye wc is still w/ erythema Pt was seen and examined on 03/03/17 however note was entered late - Current Medication List Current Medications: Active Medications Albuterol Sulfate (Ventolin 0.083% Nebulizer Soln -) 1 amp NEB Q4H PRN PRN Reason: SHORT OF BREATH/WHEEZING Last Admin: 03/03/17 14:30 Dose: 1 amp Albuterol/Ipratropium (Duoneb -) 1 amp NEB QIDR [facility] Last Admin: 03/03/17 23:30 Dose: 1 amp Aspirin (Asa -) 81 mg PO DAILY [facility] Last Admin: 03/03/17 09:40 Dose: 81 mg Budesonide/Formoterol Fumarate (Symbicort 160/4.5mcg -) 1 puff IH BID [facility] Last Admin: 03/03/17 21:47 Dose: 1 puff Docusate Sodium (Colace -) 200 mg PO DAILY PRN Ferrous Sulfate (Feosol -) 325 mg PO TID [facility] Last Admin: 03/03/17 21:47 Dose: Not Given Fluticasone Propionate (Flonase -) 1 spray NS BID [facility] Last Admin: 03/03/17 21:49 Dose: Not Given Furosemide (Lasix -) 20 mg PO BIDLASIX [facility] Last Admin: 03/03/17 14:35 Dose: 20 mg Hydrochlorothiazide (Hctz -) 12.5 mg PO DAILY [facility] Last Admin: 03/03/17 09:39 Dose: 12.5 mg Levofloxacin (Levaquin 500 Mg Premixed Ivpb -) 100 mls @ 100 mls/hr IVPB DAILY [facility] Last Admin: 03/03/17 09:39 Dose: 100 mls/hr Meclizine HCl (Antivert -) 12.5 mg PO BID [facility] Last Admin: 03/03/17 21:46 Dose: 12.5 mg Methylprednisolone Sodium Succinate (Solu-Medrol -) 40 mg IVPB Q8H-IV [facility] Last Admin: 03/03/17 17:49 Dose: 40 mg Miconazole Nitrate (Monistat-7 Vaginal Cream -) 1 applic VG HS [facility] Stop: 03/08/17 22:01 Last Admin: 03/03/17 21:49 Dose: 1 applic Nifedipine (Procardia Xl -) 30 mg PO DAILY [facility] Last Admin: 03/03/17 09:40 Dose: 30 mg Non-Formulary Medication (Cyclosporine [Restasis]) 1 each OP BID [facility] Non-Formulary Medication (Olopatadine Hcl [Patanase]) 665 mcg NS DAILY [facility] Nystatin (Nystatin Oral Suspension -) 500,000 units PO TID [facility] Last Admin: 03/03/17 21:48 Dose: 500,000 units Pantoprazole Sodium (Protonix -) 40 mg PO DAILY [facility] Last Admin: 03/03/17 09:40 Dose: 40 mg Polyethylene Glycol (Miralax (For Daily Use) -) 17 gm PO DAILY [facility] Rosuvastatin Calcium (Crestor -) 10 mg PO HS [facility] Last Admin: 03/03/17 21:47 Dose: 10 mg Sodium Chloride ([place] Nasal [place] -) 2 spray NS TID PRN PRN Reason: NASAL CONGESTION Last Admin: 03/03/17 21:47 Dose: 2 spray Valsartan (Diovan -) 160 mg PO DAILY [facility] Last Admin: 03/03/17 09:40 Dose: 160 mg - Objective Vital Signs: Vital Signs Temperature 98.1 F 03/03/17 17:00 Pulse Rate 95 H 03/03/17 17:00 Respiratory Rate 18 03/03/17 17:00 Blood Pressure 137/67 03/03/17 17:00 O2 Sat by Pulse Oximetry (%) 96 03/03/17 10:34 Constitutional: Yes: Well Nourished, Obese Eyes: Yes: Other (Lt conjunctival hemorrhage) Neck: Yes: Supple Cardiovascular: Yes: WNL, Regular Rate and Rhythm Respiratory: Yes: Wheezes Gastrointestinal: Yes: WNL, Normal Bowel Sounds, Soft, Abdomen, Obese Extremities: Yes: WNL Edema: No Peripheral Pulses WNL: No Labs: CBC, BMP 03/03/17 06:00 03/03/17 06:00 INR, PTT INR 3.88 (0.82-1.09) H 03/03/17 06:00 Problem List - Problems (1) COPD exacerbation Code(s): J44.1 - CHRONIC OBSTRUCTIVE PULMONARY DISEASE W (ACUTE) EXACERBATION (2) Coronary artery disease Code(s): I25.10 - ATHSCL HEART DISEASE OF [place] CORONARY ARTERY W/O ANG PCTRS (3) DVT (deep venous thrombosis) Code(s): I82.409 - ACUTE EMBOLISM AND [place] UNSP DEEP VN UNSP LOWER EXTREMITY (4) History of pulmonary embolism Code(s): Z86.711 - PERSONAL HISTORY OF PULMONARY EMBOLISM (5) Hypertension Code(s): I10 - ESSENTIAL (PRIMARY) HYPERTENSION (6) Obesity Code(s): E66.9 - OBESITY, UNSPECIFIED
[2017-03-04] MEDS: methylPREDNISolone NA SUCC 40 MG/1 ML VIAL IVPB SCH ×4 (02:56→23:22)
[2017-03-04] MEDS: ALBUTEROL SO4 2.5/IPRATROPIUM 0.5 INH SOL 3 ML VIAL.NEB. NEB SCH ×3 (06:30→17:52)
[2017-03-04] MEDS: FUROSEMIDE 20 MG TABLET (FP) PO SCH ×2 (06:32→14:12)
[2017-03-04] MEDS: NYSTATIN 500,000 UNITS/5 ML SUSPENSION PO SCH ×3 (06:32→21:57)
[2017-03-04] MEDS: FERROUS SO4 325 MG TABLET (FP) PO SCH ×3 (06:32→21:57)
[2017-03-04] MEDS: INSULIN SLIDING SCALE (NOVOLOG) 1 VIAL SQ SCH ×4 (06:33→22:07)
--- NOTE | 2017-03-04 09:23 | PN ---
Progress Note, Physician Chief Complaint: sitting comfortably, no distress TELE: reviewed. NSR and mild sinus tach - Current Medication List Current Medications: Active Medications Albuterol Sulfate (Ventolin 0.083% Nebulizer Soln -) 1 amp NEB Q4H PRN PRN Reason: SHORT OF BREATH/WHEEZING Last Admin: 03/03/17 14:30 Dose: 1 amp Albuterol/Ipratropium (Duoneb -) 1 amp NEB QIDR [facility] Last Admin: 03/04/17 06:30 Dose: 1 amp Aspirin (Asa -) 81 mg PO DAILY [facility] Last Admin: 03/03/17 09:40 Dose: 81 mg Budesonide/Formoterol Fumarate (Symbicort 160/4.5mcg -) 1 puff IH BID [facility] Last Admin: 03/03/17 21:47 Dose: 1 puff Docusate Sodium (Colace -) 200 mg PO DAILY PRN Ferrous Sulfate (Feosol -) 325 mg PO TID [facility] Last Admin: 03/04/17 06:32 Dose: 325 mg Fluticasone Propionate (Flonase -) 1 spray NS BID [facility] Last Admin: 03/03/17 21:49 Dose: Not Given Furosemide (Lasix -) 20 mg PO BIDLASIX [facility] Last Admin: 03/04/17 06:32 Dose: 20 mg Hydrochlorothiazide (Hctz -) 12.5 mg PO DAILY [facility] Last Admin: 03/03/17 09:39 Dose: 12.5 mg Levofloxacin (Levaquin 500 Mg Premixed Ivpb -) 100 mls @ 100 mls/hr IVPB DAILY [facility] Last Admin: 03/03/17 09:39 Dose: 100 mls/hr Insulin Aspart (Novolog Vial Sliding Scale -) 1 vial SQ ACHS [facility] PRN Reason: Protocol Last Admin: 03/04/17 06:33 Dose: Not Given Meclizine HCl (Antivert -) 12.5 mg PO BID [facility] Last Admin: 03/03/17 21:46 Dose: 12.5 mg Methylprednisolone Sodium Succinate (Solu-Medrol -) 40 mg IVPB Q8H-IV [facility] Last Admin: 03/04/17 02:56 Dose: 40 mg Miconazole Nitrate (Monistat-7 Vaginal Cream -) 1 applic VG HS [facility] Stop: 03/08/17 22:01 Last Admin: 03/03/17 21:49 Dose: 1 applic Nifedipine (Procardia Xl -) 30 mg PO DAILY [facility] Last Admin: 03/03/17 09:40 Dose: 30 mg Non-Formulary Medication (Cyclosporine [Restasis]) 1 each OP BID [facility] Non-Formulary Medication (Olopatadine Hcl [Patanase]) 665 mcg NS DAILY [facility] Nystatin (Nystatin Oral Suspension -) 500,000 units PO TID [facility] Last Admin: 03/04/17 06:32 Dose: 500,000 units Pantoprazole Sodium (Protonix -) 40 mg PO DAILY [facility] Last Admin: 03/03/17 09:40 Dose: 40 mg Polyethylene Glycol (Miralax (For Daily Use) -) 17 gm PO DAILY [facility] Rosuvastatin Calcium (Crestor -) 10 mg PO HS [facility] Last Admin: 03/03/17 21:47 Dose: 10 mg Sodium Chloride ([place] Nasal [place] -) 2 spray NS TID PRN PRN Reason: NASAL CONGESTION Last Admin: 03/03/17 21:47 Dose: 2 spray Valsartan (Diovan -) 160 mg PO DAILY [facility] Last Admin: 03/03/17 09:40 Dose: 160 mg - Objective Vital Signs: Vital Signs Temperature 98.2 F 03/04/17 08:07 Pulse Rate 110 H 03/04/17 08:07 Respiratory Rate 20 03/04/17 08:07 Blood Pressure 151/82 03/04/17 08:07 O2 Sat by Pulse Oximetry (%) 98 03/03/17 21:00 Constitutional: Yes: No Distress Cardiovascular: Yes: Regular Rate and Rhythm Respiratory: Yes: Other (mild bilateral expiratory wheezing) Gastrointestinal: Yes: Soft, Abdomen, Obese Edema: Yes Edema: LLE: 1+, RLE: 1+ Neurological: Yes: Alert Labs: CBC, BMP 03/03/17 06:00 03/03/17 06:00 INR, PTT INR 3.88 (0.82-1.09) H 03/03/17 06:00 Microbiology 03/02/17 00:45 Blood - Peripheral Venous Blood Culture - Preliminary NO GROWTH OBTAINED AFTER 24 HOURS, INCUBATION TO CONTINUE FOR 4 DAYS. 03/02/17 00:45 Blood - Peripheral Venous Blood Culture - Preliminary NO GROWTH OBTAINED AFTER 24 HOURS, INCUBATION TO CONTINUE FOR 4 DAYS. Laboratory Tests 03/03/17 03/03/1717 06:00 06:00 06:00 WBC 16.2 H Hgb 8.3 L Plt Count 255 INR 3.88 H Sodium 143 Potassium 5.1 D BUN 21 H Creatinine 1.3 H Assessment/Plan IMP: DYSPNEA ADVANCED COPD O2 DEPENDENT WITH ACUTE EXACERBATION CHRONIC HYPOXEMIC RESPIRATORY CHF PULMONARY HTN H/O PULMONARY EMBOLISM EPISTAXIS SUPRA-THERAPEUTIC INR REC: Holding coumadin, resume when INR between 2-3 (goal for h/o recurrent PE). Steroid taper as per pulmonary. Mild sinus tach likely due to acute exacerbation COPD, steroid and effect of albuterol
[2017-03-04] MEDS: POLYETHYLENE GLYCOL 3350 119 GM BTL PO SCH (09:54)
[2017-03-04] MEDS: NIFEdipine E.R. 30 MG TABLET (FP) PO SCH (09:55)
[2017-03-04] MEDS: HYDROCHLOROTHIAZIDE 12.5 MG CAPSULE (FP) PO SCH (09:55)
[2017-03-04] MEDS: ASPIRIN 81 MG CHEWABLE TABLETS PO SCH (09:55)
[2017-03-04] MEDS: MECLIZINE HCL 12.5 MG TABLET PO SCH ×2 (09:55→21:56)
[2017-03-04] MEDS: VALSARTAN 160 MG TABLET (UD) PO SCH (09:55)
[2017-03-04] MEDS: BUDESONIDE/FORMETEROL FUMARATE 160/4.5 mcg INHALER IH SCH ×2 (09:57→21:58)
[2017-03-04] MEDS: SODIUM CHLORIDE NASAL SPRAY 44 ML BOTTLE NS PRN (09:57)
[2017-03-04] MEDS: FLUTICASONE PROP 0.05% 16 GM NASAL SPRAY NS SCH ×2 (09:58→23:00)
[2017-03-04] MEDS ORDERED: DOCUSATE SODIUM 100 MG CAPSULE (FP) PO PRN (10:00)
[2017-03-04] MEDS: LEVOFLOXACIN 500 MG IVPB 100 ML IVPB SCH (10:27)
[2017-03-04] MEDS: PANTOPRAZOLE 20 MG TABLET (FP) PO SCH (10:27)
--- NOTE | 2017-03-04 11:23 | PN ---
Teaching Attending Note Name of Resident: Peter Bolivar ATTENDING PHYSICIAN STATEMENT I saw and evaluated the patient. I reviewed the resident's note and discussed the case with the resident. I agree with the resident's findings and plan as documented. pulmonary alert,still dyspneic,but slowly improving,+ cough(yellow sputum) IMP DYSPNEA ADVANCED COPD O2 DEPENDENT WITH ACUTE EXACERBATION CHRONIC HYPOXEMIC RESPIRATORY CHF PULMONARY HTN H/O PULMONARY EMBOLISM EPISTAXIS RESOLVED SUPRA-THERAPEUTIC INR CORRECTING PLAN INHALED BRONCHODILATORS O2 ANTIBIOTICS STEROID TAPER MONITOR INR ENT EVALUATION pending DR FOX
[2017-03-04] MEDS ORDERED: INSULIN (NOVOLOG) ASPART 100 UNITS/ML 10ML VIAL ONE (11:38)
[2017-03-04] MEDS: guaiFENesin/CODEINE 5 ML UNIT-DOSE CUPS PO PRN ×2 (14:11→22:10)
--- NOTE | 2017-03-04 19:41 | CON.ENT ---
Consult Consult Specialty:: ENT Referred by:: Dr. Whitlock Reason for Consultation:: nasal bleeding - History of Present Illness Chief Complaint: nasal bleeding History of Present Illness: 66 yo F admitted with shortness of breath hx COPD, on home O2 on Coumadin for pulmonary embolism and hx stroke reports intermittent chronic nasal bleeding usually lasts 10-15 minutes hd a longer episode 3 days ago at home said lasted 2 hours, then stopped also states INR was high. 2 days ago felt SOB, came to hospital no nasal bleeding since admission pt states that when she has nasal bleeding at home, she inserts cotton into nose and pinches her nose. 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 Cardio/Vascular: Yes: CHF (chronic diastolic), HTN, Hyperlipdemia Pulmonary: Yes: COPD, O2 Dependent, Pulmonary Embolus, Other (pulmonary HTN) - Alcohol/Substance Use Hx Alcohol Use: No - Smoking History Smoking history: Former smoker Have you smoked in the past 12 months: No Aproximately how many cigarettes per day: 0 If you are a former smoker, when did you quit?: 1998 - Social History Usual Living Arrangement: Alone History of Recent Travel: No Home Medications - Allergies Allergies/Adverse Reactions: Allergies Allergy/AdvReac Type Severity Reaction Status Date / Time No Known Allergies Allergy Verified 03/02/17 10:40 - Home Medications Home Medications: Ambulatory Orders Mometasone Furoate [Nasonex] 1 - 2 inh NS PRN 01/21/14 Olmesartan/Hydrochlorothiazide [Benicar Hct 20-12.5 mg Tablet] 1 each PO DAILY 01/21/14 Promethazine/Phenyleph/Codeine [Promethazine Vc-Codeine Syrup] 120 ml PO PRN Aspirin [ASA -] 81 mg PO DAILY #30 tab.chew 08/03/14 Cholecalciferol (Vitamin D3) [Vitamin D3] 2,000 unit PO DAILY #30 capsule Docusate Sodium [Colace -] 200 mg PO PRN #30 capsule 08/03/14 Miconazole Nitrate [Miconazole Nitrate -] 1 applic TP PRN #7 tube 08/03/14 Clobetasol Propionate/Emoll [Olux-E 0.05% Foam] 100 gm TP PRN 11/20/15 Acetaminophen [Tylenol] 650 mg PO TID PRN 11/23/15 Colchicine [Colcrys] 0.6 mg PO DAILY PRN 11/23/15 Levalbuterol Tartrate [Xopenex Hfa] 15 gm IH BID 11/23/15 Nystatin Oral Suspension - [Nystatin Oral Susp 219987 Units/5 ML -] 5 ml PO BID 11/23/15 Olopatadine HCl [Patanase] 665 mcg NS DAILY 11/23/15 Albuterol 0.083% Nebulizer [place] [Ventolin 0.083% Nebulizer Soln -] 1 neb NEB QID PRN #7 vial 11/26/15 Budesonide/Formeterol Fumarate [SYMBICORT 160/4.5mcg -] 1 inh PO BID #7 inhaler 11/26/15 Cyclosporine [Restasis] 1 each OP BID #30 droperette 11/26/15 Ferrous Sulfate [Feosol] 325 mg PO TID #30 ud 11/26/15 Furosemide [Lasix -] 20 mg PO BID #60 tablet 11/26/15 Guaifenesin AC [Robitussin AC -] 5 ml PO Q6H PRN #30 liquid 11/26/15 Meclizine HCl [Antivert -] 12.5 mg PO BID #30 tablet 11/26/15 Nifedipine ER [Procardia XL -] 30 mg PO DAILY #30 tab.er.24 11/26/15 Pantoprazole Sodium [Protonix -] 40 mg PO DAILY #30 tablet.ec 11/26/15 Prednisone [Deltasone -] 25 mg PO BID #30 tablet 11/26/15 Rosuvastatin Calcium [Crestor] 10 mg PO HS #30 tablet 11/26/15 Tiotropium [place] [Spiriva] 1 inh PO DAILY #7 inh 11/26/15 Warfarin Na [Coumadin -] 4 mg PO [id number]@1800 #30 tablet 11/26/15 Physical Exam-ENT Vital Signs: Vital Signs Temperature 98.1 F 03/04/17 14:00 Pulse Rate 106 H 03/04/17 14:00 Respiratory Rate 22 03/04/17 14:00 Blood Pressure 132/77 03/04/17 14:00 O2 Sat by Pulse Oximetry (%) 91 L 03/04/17 11:45 Constitutional: Yes: Well Nourished, No Distress, Calm Head: Yes: WNL Face: Yes: WNL Eyes: Yes: Other (left conjunctival injection) Nose: Yes: Other (no bleeding +dry blood and crust left nasal cavity, no active bleeding. Left nasal cavity clear, no bleeding) Oral/Pharynx: Yes: WNL (no bleeding) Outer Ear: Yes: WNL Imaging - Results Chest X-ray: Report Reviewed Cat Scan: Report Reviewed (chest) Problem List - Problems (1) Epistaxis, recurrent Assessment/Plan: pt with hx recurrent epistaxis use of nasal oxygen and anticoagulation for hx pulmonary embolism and stroke contributory usually left side has not had any bleeding since admission dry blood present left nasal cavity Recommend: nasal saline spray ordered, use BID needs to continue oxygen for COPD monitor INR and keep therapeutic may be candidate for elective cauterization if continues recurrent bleeding despite moisturizing measures Thank you for consultation, Sarthak Gonzalez MD FACS Code(s): R04.0 - EPISTAXIS
[2017-03-04] MEDS: MICONAZOLE NITRATE 2% VAGINAL CREAM 45 GM TUBE VG SCH (21:57)
[2017-03-04] MEDS: ROSUVASTATIN CA 10 MG TABLET (FP) PO SCH (21:57)
--- NOTE | 2017-03-04 22:50 | PN ---
Progress Note, Physician History of Present Illness: Pt c/o constipation - Current Medication List Current Medications: Active Medications Albuterol Sulfate (Ventolin 0.083% Nebulizer Soln -) 1 amp NEB Q4H PRN PRN Reason: SHORT OF BREATH/WHEEZING Last Admin: 03/03/17 14:30 Dose: 1 amp Albuterol/Ipratropium (Duoneb -) 1 amp NEB QIDR [facility] Last Admin: 03/04/17 17:52 Dose: 1 amp Aspirin (Asa -) 81 mg PO DAILY [facility] Last Admin: 03/04/17 09:55 Dose: 81 mg Budesonide/Formoterol Fumarate (Symbicort 160/4.5mcg -) 1 puff IH BID [facility] Last Admin: 03/04/17 21:58 Dose: 1 puff Docusate Sodium (Colace -) 200 mg PO DAILY [facility]N Last Admin: 03/04/17 09:56 Dose: 200 mg Ferrous Sulfate (Feosol -) 325 mg PO TID [facility] Last Admin: 03/04/17 21:57 Dose: 325 mg Fluticasone Propionate (Flonase -) 1 spray NS BID [facility] Last Admin: 03/04/17 09:58 Dose: Not Given Furosemide (Lasix -) 20 mg PO BIDLASIX [facility] Last Admin: 03/04/17 14:12 Dose: 20 mg Guaifenesin/Codeine Phosphate (Robitussin Ac -) 5 ml PO QID PRN PRN Reason: COUGH Last Admin: 03/04/17 22:10 Dose: 5 ml Hydrochlorothiazide (Hctz -) 12.5 mg PO DAILY [facility] Last Admin: 03/04/17 09:55 Dose: 12.5 mg Levofloxacin (Levaquin 500 Mg Premixed Ivpb -) 100 mls @ 100 mls/hr IVPB DAILY [facility] Last Admin: 03/04/17 10:27 Dose: 100 mls/hr Insulin Aspart (Novolog Vial Sliding Scale -) 1 vial SQ ACHS [facility] PRN Reason: Protocol Last Admin: 03/04/17 22:07 Dose: Not Given Meclizine HCl (Antivert -) 12.5 mg PO BID [facility] Last Admin: 03/04/17 21:56 Dose: 12.5 mg Methylprednisolone Sodium Succinate (Solu-Medrol -) 40 mg IVPB Q12H [facility] Last Admin: 03/04/17 11:41 Dose: Not Given Miconazole Nitrate (Monistat-7 Vaginal Cream -) 1 applic VG HS [facility] Stop: 03/08/17 22:01 Last Admin: 03/04/17 21:57 Dose: 1 applic Nifedipine (Procardia Xl -) 30 mg PO DAILY [facility] Last Admin: 03/04/17 09:55 Dose: 30 mg Non-Formulary Medication (Cyclosporine [Restasis]) 1 each OP BID [facility] Non-Formulary Medication (Olopatadine Hcl [Patanase]) 665 mcg NS DAILY [facility] Nystatin (Nystatin Oral Suspension -) 500,000 units PO TID [facility] Last Admin: 03/04/17 21:57 Dose: 500,000 units Pantoprazole Sodium (Protonix -) 40 mg PO DAILY [facility] Last Admin: 03/04/17 10:27 Dose: 40 mg Polyethylene Glycol (Miralax (For Daily Use) -) 17 gm PO DAILY [facility] Last Admin: 03/04/17 09:54 Dose: 17 grams Rosuvastatin Calcium (Crestor -) 10 mg PO [facility] Last Admin: 03/04/17 21:57 Dose: 10 mg Sodium Chloride ([place] Nasal [place] -) 2 spray NS TID PRN PRN Reason: NASAL CONGESTION Last Admin: 03/04/17 09:57 Dose: 2 spray Sodium Chloride ([place] Nasal [place] -) 2 spray NS BID [facility] Valsartan (Diovan -) 160 mg PO DAILY [facility] Last Admin: 03/04/17 09:55 Dose: 160 mg - Objective Vital Signs: Vital Signs Temperature 98.2 F 03/04/17 17:00 Pulse Rate 95 H 03/04/17 17:00 Respiratory Rate 18 03/04/17 17:00 Blood Pressure 133/66 03/04/17 17:00 O2 Sat by Pulse Oximetry (%) 91 L 03/04/17 11:45 Constitutional: Yes: Well Nourished, Obese Eyes: Yes: Other (Lt conjunctival hemorrhage improved) Cardiovascular: Yes: WNL, Regular Rate and Rhythm Respiratory: Yes: Wheezes Gastrointestinal: Yes: WNL, Soft, Abdomen, Obese Extremities: Yes: WNL Edema: No Labs: CBC, BMP 03/03/17 06:00 03/03/17 06:00 INR, PTT INR 3.88 (0.82-1.09) H 03/03/17 06:00 Problem List - Problems (1) COPD exacerbation Code(s): J44.1 - CHRONIC OBSTRUCTIVE PULMONARY DISEASE W (ACUTE) EXACERBATION (2) Coronary artery disease Code(s): I25.10 - ATHSCL HEART DISEASE OF [place] CORONARY ARTERY W/O ANG PCTRS (3) DVT (deep venous thrombosis) Code(s): I82.409 - ACUTE EMBOLISM AND THOMBOS UNSP DEEP VN UNSP LOWER EXTREMITY (4) History of pulmonary embolism Code(s): Z86.711 - PERSONAL HISTORY OF PULMONARY EMBOLISM (5) Hypertension Code(s): I10 - ESSENTIAL (PRIMARY) HYPERTENSION (6) Obesity Code(s): E66.9 - OBESITY, UNSPECIFIED Assessment/Plan 1. COPD exacerbation PT still requiring IV steroids/IV levaquin Cont nebulizers 2. Epitaxis As per ENT 3. HTN/CHF 4. H/O PE/DVT INR has been supratherapeutic Check in am and restart coumadin when appropiate
[2017-03-04] MEDS: SODIUM CHLORIDE NASAL SPRAY 44 ML BOTTLE NS SCH (22:59)
[2017-03-04] MEDS: SENNOSIDES 8.6MG TABLET (FP) PO SCH (23:22)
[2017-03-05] MEDS: ALBUTEROL SO4 2.5/IPRATROPIUM 0.5 INH SOL 3 ML VIAL.NEB. NEB SCH ×5 (00:40→18:25)
[2017-03-05] MEDS: FUROSEMIDE 20 MG TABLET (FP) PO SCH ×2 (05:56→13:57)
[2017-03-05] MEDS: NYSTATIN 500,000 UNITS/5 ML SUSPENSION PO SCH ×3 (05:56→22:29)
[2017-03-05] MEDS: INSULIN SLIDING SCALE (NOVOLOG) 1 VIAL SQ SCH ×4 (06:27→22:36)
[2017-03-05 07:04] LABS: INR 2.66 (0.82-1.09); PROTHROMBIN TIME (PATIENT) 29.9 SEC (9.98-11.88)
[2017-03-05 07:26] LABS: ALBUMIN 3.4 g/dl (3.4-5.0); CALCIUM 8.4 mg/dL (8.5-10.1); COCKROFT - GAULT 87.3375; CREATININE 1.3 mg/dL (0.55-1.02)
[2017-03-05 07:28] LABS: BILIRUBIN,TOTAL 0.3 mg/dL (0.2-1.0); TOT PROT 6.1 g/dl (6.4-8.2)
[2017-03-05 09:11] LABS: BASOPHIL 0.2 % (0-2.0); MCH 21.6 pg (25.7-33.7); MCHC 28.2 g/dl (32.0-36.0); MEAN CELL VOLUME 76.7 fl (80-96); MEAN PLT VOLUME 8.8 fl (7.5-11.1); NEUTROPHILS 85.7 % (42.8-82.8); PLATELET COUNT 218 K/MM3 (134-434); RDW 15.6 % (11.6-15.6); WHITE BLOOD COUNT 15.4 K/mm3 (4.0-10.0)
--- NOTE | 2017-03-05 09:34 | PN ---
Progress Note, Physician Chief Complaint: no chest pain INR back in therapeutic range - Current Medication List Current Medications: Active Medications Albuterol Sulfate (Ventolin 0.083% Nebulizer Soln -) 1 amp NEB Q4H PRN PRN Reason: SHORT OF BREATH/WHEEZING Last Admin: 03/03/17 14:30 Dose: 1 amp Albuterol/Ipratropium (Duoneb -) 1 amp NEB QIDR [facility] Last Admin: 03/05/17 06:58 Dose: 1 amp Aspirin (Asa -) 81 mg PO DAILY [facility] Last Admin: 03/04/17 09:55 Dose: 81 mg Budesonide/Formoterol Fumarate (Symbicort 160/4.5mcg -) 1 puff IH BID [facility] Last Admin: 03/04/17 21:58 Dose: 1 puff Docusate Sodium (Colace -) 200 mg PO DAILY PRN Last Admin: 03/04/17 09:56 Dose: 200 mg Ferrous Sulfate (Feosol -) 325 mg PO DAILY [facility] Fluticasone Propionate (Flonase -) 1 spray NS BID [facility] Last Admin: 03/04/17 23:00 Dose: Not Given Furosemide (Lasix -) 20 mg PO BIDLASIX [facility] Last Admin: 03/05/17 05:56 Dose: 20 mg Guaifenesin/Codeine Phosphate (Robitussin Ac -) 5 ml PO QID PRN PRN Reason: COUGH Last Admin: 03/04/17 22:10 Dose: 5 ml Hydrochlorothiazide (Hctz -) 12.5 mg PO DAILY [facility] Last Admin: 03/04/17 09:55 Dose: 12.5 mg Levofloxacin (Levaquin 500 Mg Premixed Ivpb -) 100 mls @ 100 mls/hr IVPB DAILY [facility] Last Admin: 03/04/17 10:27 Dose: 100 mls/hr Insulin Aspart (Novolog Vial Sliding Scale -) 1 vial SQ ACHS [facility] PRN Reason: Protocol Last Admin: 03/05/17 06:27 Dose: Not Given Meclizine HCl (Antivert -) 12.5 mg PO BID [facility] Last Admin: 03/04/17 21:56 Dose: 12.5 mg Methylprednisolone Sodium Succinate (Solu-Medrol -) 40 mg IVPB Q12H [facility] Last Admin: 03/04/17 23:22 Dose: 40 mg Miconazole Nitrate (Monistat-7 Vaginal Cream -) 1 applic VG HS [facility] Stop: 03/08/17 22:01 Last Admin: 03/04/17 21:57 Dose: 1 applic Nifedipine (Procardia Xl -) 30 mg PO DAILY [facility] Last Admin: 03/04/17 09:55 Dose: 30 mg Non-Formulary Medication (Cyclosporine [Restasis]) 1 each OP BID [facility] Non-Formulary Medication (Olopatadine Hcl [Patanase]) 665 mcg NS DAILY [facility] Nystatin (Nystatin Oral Suspension -) 500,000 units PO TID [facility] Last Admin: 03/05/17 05:56 Dose: 500,000 units Pantoprazole Sodium (Protonix -) 40 mg PO DAILY [facility] Last Admin: 03/04/17 10:27 Dose: 40 mg Polyethylene Glycol (Miralax (For Daily Use) -) 17 gm PO DAILY [facility] Last Admin: 03/04/17 09:54 Dose: 17 grams Rosuvastatin Calcium (Crestor -) 10 mg PO [facility] Last Admin: 03/04/17 21:57 Dose: 10 mg Senna (Senna -) 1 tab PO BID [facility] Last Admin: 03/04/17 23:22 Dose: 1 tab Sodium Chloride ([place] Nasal [place] -) 2 spray NS TID PRN PRN Reason: NASAL CONGESTION Last Admin: 03/04/17 09:57 Dose: 2 spray Sodium Chloride ([place] Nasal [place] -) 2 spray NS BID [facility] Last Admin: 03/04/17 22:59 Dose: 2 sprays Valsartan (Diovan -) 160 mg PO DAILY [facility] Last Admin: 03/04/17 09:55 Dose: 160 mg - Objective Vital Signs: Vital Signs Temperature 98.2 F 03/05/17 08:05 Pulse Rate 102 H 03/05/17 08:05 Respiratory Rate 18 03/05/17 08:05 Blood Pressure 142/70 03/05/17 08:05 O2 Sat by Pulse Oximetry (%) 96 03/04/17 21:00 Constitutional: Yes: No Distress Cardiovascular: Yes: Regular Rate and Rhythm (decreased breath sounds, but no active wheezing.) Respiratory: Yes: Other (see above) Edema: No Neurological: Yes: Alert Labs: CBC, BMP 03/05/17 05:35 03/05/17 05:35 INR, PTT INR 2.66 (0.82-1.09) H D 03/05/17 05:35 Laboratory Tests 03/05/17 03/05/17 03/05/17 05:35 05:35 05:35 WBC 15.4 H Hgb 7.3 L D Hct 25.9 L Plt Count 218 INR 2.66 H D Potassium 5.0 BUN 33 H D Creatinine 1.3 H - ....Imaging Other: Image Reviewed (NSR) Assessment/Plan IMP: DYSPNEA ADVANCED COPD O2 DEPENDENT WITH ACUTE EXACERBATION CHRONIC HYPOXEMIC RESPIRATORY CHF PULMONARY HTN H/O PULMONARY EMBOLISM EPISTAXIS SUPRA-THERAPEUTIC INR REC: Can resume coumadin as INR back within range, follow INR daily. Steroid taper as per pulmonary. Mild sinus tach likely due to acute exacerbation COPD, steroid and effect of albuterol
--- NOTE | 2017-03-05 09:39 | PN ---
Physical Exam: SUBJECTIVE: Patient seen and examined Patient sitting comfartably in bed, states that breathing and cough got slightly better but still feels congested. states normally she gets short of breth even if she tries to move in bed states cough is slightly better than before. denies nausea, vomting, fever OBJECTIVE: Vital Signs Period Temp Pulse Resp BP Sys/Nielsen Pulse Ox Last 24 Hr 98 F-98.6 F 71-108 18-22 124-146/66-88 91-96 GENERAL: Awake, alert, and fully oriented, in no acute distress. EARS, NOSE, THROAT: Ears normal, nares patent. Moist mucous membranes. NECK: Normal range of motion, without lymphadenopathy, LUNGS: Breath sounds equal, clear to auscultation bilaterally, decrease air entry b/l . still have wheez in end of expiration. HEART: s1s2 normal ABDOMEN: Soft, nontender, not distended, normoactive bowel sounds, UPPER EXTREMITIES: 2+ pulses, warm, well-perfused. No cyanosis. LOWER EXTREMITIES: 2+ pulses, warm, well-perfused. No calf tenderness. No peripheral edema. Laboratory Results - last 24 hr 03/04/17 03/04/17 03/04/17 11:07 15:46 22:03 WBC RBC Hgb Hct MCV MCHC RDW Plt Count MPV Neutrophils % Lymphocytes % Monocytes % Eosinophils % Basophils % INR Sodium Potassium Chloride Carbon Dioxide Anion Gap BUN Creatinine Creat Clearance w eGFR POC Glucometer 200 164 155 Random Glucose Calcium Total Bilirubin AST ALT Alkaline Phosphatase Total Protein Albumin 03/05/17 03/05/17 03/05/17 05:35 05:35 05:35 WBC 15.4 H RBC 3.37 L Hgb 7.3 L D Hct 25.9 L MCV 76.7 L MCHC 28.2 L RDW 15.6 Plt Count 218 MPV 8.8 Neutrophils % 85.7 H Lymphocytes % 8.5 Monocytes % 5.6 D Eosinophils % 0.0 Basophils % 0.2 INR 2.66 H D Sodium 142 Potassium 5.0 Chloride 98 Carbon Dioxide 36 H Anion Gap 8 BUN 33 H D Creatinine 1.3 H Creat Clearance w eGFR 40.73 POC Glucometer Random Glucose 164 H Calcium 8.4 L Total Bilirubin 0.3 AST 15 ALT 22 Alkaline Phosphatase 55 Total Protein 6.1 L Albumin 3.4 03/05/17 05:53 WBC RBC Hgb Hct MCV MCHC RDW Plt Count MPV Neutrophils % Lymphocytes % Monocytes % Eosinophils % Basophils % INR Sodium Potassium Chloride Carbon Dioxide Anion Gap BUN Creatinine Creat Clearance w eGFR POC Glucometer 168 Random Glucose Calcium Total Bilirubin AST ALT Alkaline Phosphatase Total Protein Albumin Active Medications Generic Name Dose Route Start Last Admin Trade Name Freq PRN Reason Stop Dose Admin Albuterol Sulfate 1 amp 03/02/17 15:42 03/03/17 14:30 Ventolin 0.083% Nebulizer Soln - NEB 1 amp Q4H PRN Administration SHORT OF BREATH/WHEEZING Albuterol/Ipratropium 1 amp 03/03/17 12:00 03/05/17 06:58 Duoneb - NEB 1 amp QIDR [facility] Administration Aspirin 81 mg 03/03/17 10:00 03/04/17 09:55 Asa - PO 81 mg DAILY [facility] Administration Budesonide/Formoterol Fumarate 1 puff 03/02/17 22:00 03/04/17 21:58 Symbicort 160/4.5mcg - IH 1 puff BID [facility] Administration Docusate Sodium 200 mg 03/04/17 10:00 03/04/17 09:56 Colace - PO 200 mg DAILY PRN Administration Ferrous Sulfate 325 mg 03/05/17 10:00 Feosol - PO DAILY [facility] Fluticasone Propionate 1 spray 03/02/17 22:00 03/04/17 23:00 Flonase - NS Not Given BID [facility] Furosemide 20 mg 03/03/17 14:00 03/05/17 05:56 Lasix - PO 20 mg BIDLASIX [facility] Administration Guaifenesin/Codeine Phosphate 5 ml 03/04/17 11:23 03/04/17 22:10 Robitussin Ac - PO 5 ml QID PRN Administration COUGH Hydrochlorothiazide 12.5 mg 03/03/17 10:00 03/04/17 09:55 Hctz - PO 12.5 mg DAILY [facility] Administration Levofloxacin 100 mls @ 100 mls/hr 03/03/17 10:00 03/04/17 10:27 Levaquin 500 Mg Premixed Ivpb - IVPB 100 mls/hr DAILY [facility] Administration Insulin Aspart 1 vial 03/04/17 07:00 03/05/17 06:27 Novolog Vial Sliding Scale - SQ Not Given ACHS [facility] Protocol Meclizine HCl 12.5 mg 03/02/17 22:00 03/04/17 21:56 Antivert - PO 12.5 mg BID [facility] Administration Methylprednisolone Sodium Succinate 40 mg 03/04/17 11:30 03/04/17 23:22 Solu-Medrol - IVPB 40 mg Q12H [facility] Administration Miconazole Nitrate 1 applic 03/02/17 22:00 03/04/17 21:57 Monistat-7 Vaginal Cream - VG 03/08/17 22:01 1 applic HS [facility] Administration Nifedipine 30 mg 03/03/17 10:00 03/04/17 09:55 Procardia Xl - PO 30 mg DAILY [facility] Administration Non-Formulary Medication 1 each 03/02/17 22:00 Cyclosporine [Restasis] OP BID [facility] Non-Formulary Medication 665 mcg 03/03/17 10:00 Olopatadine Hcl [Patanase] NS DAILY [facility] Nystatin 500,000 units 03/02/17 22:00 03/05/17 05:56 Nystatin Oral Suspension - PO 500,000 units TID [facility] Administration Pantoprazole Sodium 40 mg 03/03/17 10:00 03/04/17 10:27 Protonix - PO 40 mg DAILY [facility] Administration Polyethylene Glycol 17 gm 03/04/17 10:00 03/04/17 09:54 Miralax (For Daily Use) - PO 17 grams DAILY [facility] Administration Rosuvastatin Calcium 10 mg 03/02/17 22:00 03/04/17 21:57 Crestor - PO 10 mg HS [facility] Administration Senna 1 tab 03/04/17 23:00 03/04/17 23:22 Senna - PO 1 tab BID [facility] Administration Sodium Chloride 2 spray 03/02/17 15:46 03/04/17 09:57 [place] Nasal [place] - NS 2 spray TID PRN Administration NASAL CONGESTION Sodium Chloride 2 spray 03/04/17 22:00 03/04/17 22:59 [place] Nasal [place] - NS 2 sprays BID [facility] Administration Valsartan 160 mg 03/03/17 10:00 03/04/17 09:55 Diovan - PO 160 mg DAILY [facility] Administration ASSESSMENT/PLAN: DYSPNEA copd excerbration, Has advanced copd with oxygen dependent in home CHRONIC HYPOXEMIC RESPIRATORY chf epistaxis resolved supra therapeutic inr : improved h/o pulmonary hypertension h/o pulmonary embolism h/o stroke h/o htn PLAN duoneb nebulizer qid twin on symbicort 1 puff bid Iv steroid solu 40 mg bid humdified oxygen keep spo2 > 90 ocean nasal spray continue eith antibiotics on iv levaquin INR in theraputic range Dispo: We will continue to follow the patient. Thank you for this consultative opportunity. Visit type - Emergency Visit Emergency Visit: Yes ED Registration Date: 03/02/17 Care time: The patient presented to the Emergency Department on the above date and was hospitalized for further evaluation of their emergent condition. - New Patient This patient is new to me today: No - Critical Care Critical Care patient: No
[2017-03-05] MEDS: guaiFENesin/CODEINE 5 ML UNIT-DOSE CUPS PO PRN ×2 (09:53→22:32)
[2017-03-05] MEDS: LEVOFLOXACIN 500 MG IVPB 100 ML IVPB SCH (09:53)
[2017-03-05] MEDS: VALSARTAN 160 MG TABLET (UD) PO SCH (09:54)
[2017-03-05] MEDS: MECLIZINE HCL 12.5 MG TABLET PO SCH ×3 (09:54→22:51)
[2017-03-05] MEDS: SENNOSIDES 8.6MG TABLET (FP) PO SCH ×2 (09:54→22:26)
[2017-03-05] MEDS: HYDROCHLOROTHIAZIDE 12.5 MG CAPSULE (FP) PO SCH (09:54)
[2017-03-05] MEDS: PANTOPRAZOLE 20 MG TABLET (FP) PO SCH (09:54)
[2017-03-05] MEDS: FERROUS SO4 325 MG TABLET (FP) PO SCH (09:54)
[2017-03-05] MEDS: ASPIRIN 81 MG CHEWABLE TABLETS PO SCH (09:54)
[2017-03-05] MEDS: NIFEdipine E.R. 30 MG TABLET (FP) PO SCH (09:54)
[2017-03-05] MEDS: POLYETHYLENE GLYCOL 3350 119 GM BTL PO SCH (09:55)
[2017-03-05] MEDS: SODIUM CHLORIDE NASAL SPRAY 44 ML BOTTLE NS SCH ×2 (09:55→22:28)
[2017-03-05] MEDS: FLUTICASONE PROP 0.05% 16 GM NASAL SPRAY NS SCH ×2 (09:55→22:31)
[2017-03-05] MEDS: BUDESONIDE/FORMETEROL FUMARATE 160/4.5 mcg INHALER IH SCH ×2 (09:55→22:25)
[2017-03-05 10:24] LABS: HYPOCHROMIA 2+; PLATELET ESTIMATE ADEQUATE (NORMAL); TARGET CELLS FEW
[2017-03-05] MEDS: methylPREDNISolone NA SUCC 40 MG/1 ML VIAL IVPB SCH ×2 (11:52→22:37)
[2017-03-05 14:25] LABS: URIC ACID 7.3 mg/dL (2.6-7.2)
--- NOTE | 2017-03-05 14:52 | PN ---
Progress Note (short form) - Note Progress Note: PULMONARY Still with chest tightness, cough and wheezing. Last Vital Signs Temp Pulse Resp BP Pulse Ox 98.2 F 102 H 18 142/70 96 03/05/17 08:05 03/05/17 08:05 03/05/17 08:05 03/05/17 08:05 03/04/17 21:00 Gen: NAD at rest Heart: RRR Lung: distant breath sounds, +wheezes, rhonchi Abd: soft, nontender Ext: no edema CBC, BMP 03/05/17 05:35 03/05/17 05:35 Active Medications Albuterol Sulfate (Ventolin 0.083% Nebulizer Soln -) 1 amp NEB Q4H PRN PRN Reason: SHORT OF BREATH/WHEEZING Last Admin: 03/03/17 14:30 Dose: 1 amp Albuterol/Ipratropium (Duoneb -) 1 amp NEB QIDR [facility] Last Admin: 03/05/17 11:20 Dose: 1 amp Aspirin (Asa -) 81 mg PO DAILY [facility] Last Admin: 03/05/17 09:54 Dose: 81 mg Budesonide/Formoterol Fumarate (Symbicort 160/4.5mcg -) 1 puff IH BID [facility] Last Admin: 03/05/17 09:55 Dose: 1 puff Docusate Sodium (Colace -) 200 mg PO DAILY [facility] Last Admin: 03/04/17 09:56 Dose: 200 mg Ferrous Sulfate (Feosol -) 325 mg PO DAILY [facility] Last Admin: 03/05/17 09:54 Dose: 325 mg Fluticasone Propionate (Flonase -) 1 spray NS BID [facility] Last Admin: 03/05/17 09:55 Dose: Not Given Furosemide (Lasix -) 20 mg PO BIDLASIX [facility] Last Admin: 03/05/17 13:57 Dose: 20 mg Guaifenesin/Codeine Phosphate (Robitussin Ac -) 5 ml PO QID PRN PRN Reason: COUGH Last Admin: 03/05/17 09:53 Dose: 5 ml Hydrochlorothiazide (Hctz -) 12.5 mg PO DAILY [facility] Last Admin: 03/05/17 09:54 Dose: 12.5 mg Levofloxacin (Levaquin 500 Mg Premixed Ivpb -) 100 mls @ 100 mls/hr IVPB DAILY [facility] Last Admin: 03/05/17 09:53 Dose: 100 mls/hr Insulin Aspart (Novolog Vial Sliding Scale -) 1 vial SQ ACHS [facility] PRN Reason: Protocol Last Admin: 03/05/17 11:52 Dose: Not Given Meclizine HCl (Antivert -) 12.5 mg PO BID [facility] Last Admin: 03/05/17 09:54 Dose: 12.5 mg Methylprednisolone Sodium Succinate (Solu-Medrol -) 40 mg IVPB Q12H [facility] Last Admin: 03/05/17 11:52 Dose: 40 mg Miconazole Nitrate (Monistat-7 Vaginal Cream -) 1 applic VG [facility] Stop: 03/08/17 22:01 Last Admin: 03/04/17 21:57 Dose: 1 applic Nifedipine (Procardia Xl -) 30 mg PO DAILY [facility] Last Admin: 03/05/17 09:54 Dose: 30 mg Non-Formulary Medication (Cyclosporine [Restasis]) 1 each OP BID [facility] Non-Formulary Medication (Olopatadine Hcl [Patanase]) 665 mcg NS DAILY [facility] Nystatin (Nystatin Oral Suspension -) 500,000 units PO TID [facility] Last Admin: 03/05/17 13:56 Dose: 500,000 units Pantoprazole Sodium (Protonix -) 40 mg PO DAILY [facility] Last Admin: 03/05/17 09:54 Dose: 40 mg Polyethylene Glycol (Miralax (For Daily Use) -) 17 gm PO DAILY [facility] Last Admin: 03/05/17 09:55 Dose: 17 grams Rosuvastatin Calcium (Crestor -) 10 mg PO [facility] Last Admin: 03/04/17 21:57 Dose: 10 mg Senna (Senna -) 1 tab PO BID [facility] Last Admin: 03/05/17 09:54 Dose: 1 tab Sodium Chloride ([place] Nasal [place] -) 2 spray NS TID PRN PRN Reason: NASAL CONGESTION Last Admin: 03/04/17 09:57 Dose: 2 spray Sodium Chloride ([place] Nasal [place] -) 2 spray NS BID [facility] Last Admin: 03/05/17 09:55 Dose: 2 sprays Valsartan (Diovan -) 160 mg PO DAILY [facility] Last Admin: 03/05/17 09:54 Dose: 160 mg Warfarin Sodium (Coumadin -) 5 mg PO ONCE ONE Stop: 03/05/17 18:01 A/P Acute COPD Exacerbation Acute Hypoxic Respiratory Failure LV Diastolic Dysfunction Pulmonary HTN h/o PE - continue medrol at current dose - inhaled bronchodilators - O2 as needed - continue anticoagulation with target INR 2-3 - lasix
[2017-03-05] MEDS ORDERED: WARFARIN NA 5 MG TABLET (UD) PO ONE (18:00)
--- NOTE | 2017-03-05 20:32 | PN ---
Progress Note, Physician History of Present Illness: Pt still constipated - Current Medication List Current Medications: Active Medications Albuterol Sulfate (Ventolin 0.083% Nebulizer Soln -) 1 amp NEB Q4H PRN PRN Reason: SHORT OF BREATH/WHEEZING Last Admin: 03/03/17 14:30 Dose: 1 amp Albuterol/Ipratropium (Duoneb -) 1 amp NEB QIDR [facility] Last Admin: 03/05/17 18:25 Dose: Not Given Aspirin (Asa -) 81 mg PO DAILY [facility] Last Admin: 03/05/17 09:54 Dose: 81 mg Budesonide/Formoterol Fumarate (Symbicort 160/4.5mcg -) 1 puff IH BID [facility] Last Admin: 03/05/17 09:55 Dose: 1 puff Docusate Sodium (Colace -) 200 mg PO DAILY [facility] Last Admin: 03/04/17 09:56 Dose: 200 mg Ferrous Sulfate (Feosol -) 325 mg PO DAILY [facility] Last Admin: 03/05/17 09:54 Dose: 325 mg Fluticasone Propionate (Flonase -) 1 spray NS BID [facility] Last Admin: 03/05/17 09:55 Dose: Not Given Furosemide (Lasix -) 20 mg PO BIDLASIX [facility] Last Admin: 03/05/17 13:57 Dose: 20 mg Guaifenesin/Codeine Phosphate (Robitussin Ac -) 5 ml PO QID PRN PRN Reason: COUGH Last Admin: 03/05/17 09:53 Dose: 5 ml Hydrochlorothiazide (Hctz -) 12.5 mg PO DAILY [facility] Last Admin: 03/05/17 09:54 Dose: 12.5 mg Levofloxacin (Levaquin 500 Mg Premixed Ivpb -) 100 mls @ 100 mls/hr IVPB DAILY [facility] Last Admin: 03/05/17 09:53 Dose: 100 mls/hr Insulin Aspart (Novolog Vial Sliding Scale -) 1 vial SQ ACHS [facility] PRN Reason: Protocol Last Admin: 03/05/17 18:14 Dose: Not Given Meclizine HCl (Antivert -) 12.5 mg PO BID [facility] Last Admin: 03/05/17 09:54 Dose: 12.5 mg Methylprednisolone Sodium Succinate (Solu-Medrol -) 40 mg IVPB Q12H [facility] Last Admin: 03/05/17 11:52 Dose: 40 mg Miconazole Nitrate (Monistat-7 Vaginal Cream -) 1 applic VG [facility] Stop: 03/08/17 22:01 Last Admin: 03/04/17 21:57 Dose: 1 applic Nifedipine (Procardia Xl -) 30 mg PO DAILY [facility] Last Admin: 03/05/17 09:54 Dose: 30 mg Non-Formulary Medication (Cyclosporine [Restasis]) 1 each OP BID [facility] Non-Formulary Medication (Olopatadine Hcl [Patanase]) 665 mcg NS DAILY [facility] Nystatin (Nystatin Oral Suspension -) 500,000 units PO TID [facility] Last Admin: 03/05/17 13:56 Dose: 500,000 units Pantoprazole Sodium (Protonix -) 40 mg PO DAILY [facility] Last Admin: 03/05/17 09:54 Dose: 40 mg Polyethylene Glycol (Miralax (For Daily Use) -) 17 gm PO DAILY [facility] Last Admin: 03/05/17 09:55 Dose: 17 grams Rosuvastatin Calcium (Crestor -) 10 mg PO [facility] Last Admin: 03/04/17 21:57 Dose: 10 mg Senna (Senna -) 1 tab PO BID [facility] Last Admin: 03/05/17 09:54 Dose: 1 tab Sodium Chloride ([place] Nasal [place] -) 2 spray NS TID PRN PRN Reason: NASAL CONGESTION Last Admin: 03/04/17 09:57 Dose: 2 spray Sodium Chloride ([place] Nasal [place] -) 2 spray NS BID [facility] Last Admin: 03/05/17 09:55 Dose: 2 sprays Valsartan (Diovan -) 160 mg PO DAILY [facility] Last Admin: 03/05/17 09:54 Dose: 160 mg - Objective Vital Signs: Vital Signs Temperature 98.6 F 03/05/17 18:00 Pulse Rate 114 H 03/05/17 18:00 Respiratory Rate 20 03/05/17 18:00 Blood Pressure 123/69 03/05/17 18:00 O2 Sat by Pulse Oximetry (%) 97 03/05/17 15:00 Constitutional: Yes: Well Nourished, Obese Neck: Yes: Supple Cardiovascular: Yes: WNL, Regular Rate and Rhythm Respiratory: Yes: Wheezes Gastrointestinal: Yes: Normal Bowel Sounds, Soft, Abdomen, Obese Labs: CBC, BMP 03/05/17 05:35 03/05/17 05:35 INR, PTT INR 2.66 (0.82-1.09) H D 03/05/17 05:35 Problem List - Problems (1) Anemia Assessment/Plan: Monitor H/H Pt states that she has had blood transfusions in the past and was intubated? Heme consult Cont [id number] Anemia of chronic dz Code(s): D64.9 - ANEMIA, UNSPECIFIED (2) COPD exacerbation Assessment/Plan: Pt still requiring IV steroids Cont IV Levaquin Cont nebulizers Cont symbicort Code(s): J44.1 - CHRONIC OBSTRUCTIVE PULMONARY DISEASE W (ACUTE) EXACERBATION (3) Hypertension Assessment/Plan: Bp stable Cont procardia/diovan Code(s): I10 - ESSENTIAL (PRIMARY) HYPERTENSION (4) Chronic diastolic (congestive) heart failure Code(s): I50.32 - CHRONIC DIASTOLIC (CONGESTIVE) HEART FAILURE (5) Coronary artery disease Code(s): I25.10 - ATHSCL HEART DISEASE OF [place] CORONARY ARTERY W/O ANG PCTRS (6) DVT (deep venous thrombosis) Assessment/Plan: Cont coumadin Check pt/inr Code(s): I82.409 - ACUTE EMBOLISM AND THOMBOS UNSP DEEP VN UNSP LOWER EXTREMITY (7) History of pulmonary embolism Code(s): Z86.711 - PERSONAL HISTORY OF PULMONARY EMBOLISM (8) Obesity Code(s): E66.9 - OBESITY, UNSPECIFIED
[2017-03-05] MEDS: ROSUVASTATIN CA 10 MG TABLET (FP) PO SCH (22:28)
[2017-03-05] MEDS: MICONAZOLE NITRATE 2% VAGINAL CREAM 45 GM TUBE VG SCH (22:31)
[2017-03-06] MEDS: ALBUTEROL SO4 2.5/IPRATROPIUM 0.5 INH SOL 3 ML VIAL.NEB. NEB SCH ×5 (00:02→23:30)
[2017-03-06] MEDS: NYSTATIN 500,000 UNITS/5 ML SUSPENSION PO SCH ×3 (06:08→21:33)
[2017-03-06] MEDS: FUROSEMIDE 20 MG TABLET (FP) PO SCH ×2 (06:08→15:09)
[2017-03-06] MEDS: INSULIN SLIDING SCALE (NOVOLOG) 1 VIAL SQ SCH ×4 (06:09→21:36)
[2017-03-06 07:45] LABS: INR 2.02 (0.82-1.09); PROTHROMBIN TIME (PATIENT) 22.5 SEC (9.98-11.88)
[2017-03-06] MEDS ORDERED: BISACODYL 10 MG SUPP.RECT PR ONE (08:00)
[2017-03-06 08:29] LABS: BASOPHIL 0.1 % (0-2.0); MCH 21.7 pg (25.7-33.7); MCHC 28.4 g/dl (32.0-36.0); MEAN CELL VOLUME 76.4 fl (80-96); MEAN PLT VOLUME 8.9 fl (7.5-11.1); NEUTROPHILS 86.7 % (42.8-82.8); PLATELET COUNT 249 K/MM3 (134-434); RDW 16.1 % (11.6-15.6); WHITE BLOOD COUNT 16.5 K/mm3 (4.0-10.0)
--- NOTE | 2017-03-06 09:51 | PN ---
Progress Note, Physician Chief Complaint: sitting up in bed, no distress Denies chest pain - Current Medication List Current Medications: Active Medications Albuterol Sulfate (Ventolin 0.083% Nebulizer Soln -) 1 amp NEB Q4H PRN PRN Reason: SHORT OF BREATH/WHEEZING Last Admin: 03/03/17 14:30 Dose: 1 amp Albuterol/Ipratropium (Duoneb -) 1 amp NEB QIDR [facility] Last Admin: 03/06/17 06:45 Dose: 1 amp Aspirin (Asa -) 81 mg PO DAILY [facility] Last Admin: 03/05/17 09:54 Dose: 81 mg Budesonide/Formoterol Fumarate (Symbicort 160/4.5mcg -) 1 puff IH BID [facility] Last Admin: 03/05/17 22:25 Dose: 1 puff Ferrous Sulfate (Feosol -) 325 mg PO DAILY [facility] Last Admin: 03/05/17 09:54 Dose: 325 mg Fluticasone Propionate (Flonase -) 1 spray NS BID [facility] Last Admin: 03/05/17 22:31 Dose: Not Given Furosemide (Lasix -) 20 mg PO BIDLASIX [facility] Last Admin: 03/06/17 06:08 Dose: 20 mg Guaifenesin/Codeine Phosphate (Robitussin Ac -) 5 ml PO QID PRN PRN Reason: COUGH Last Admin: 03/05/17 22:32 Dose: 5 ml Hydrochlorothiazide (Hctz -) 12.5 mg PO DAILY [facility] Last Admin: 03/05/17 09:54 Dose: 12.5 mg Levofloxacin (Levaquin 500 Mg Premixed Ivpb -) 100 mls @ 100 mls/hr IVPB DAILY [facility] Last Admin: 03/05/17 09:53 Dose: 100 mls/hr Insulin Aspart (Novolog Vial Sliding Scale -) 1 vial SQ ACHS [facility] PRN Reason: Protocol Last Admin: 03/06/17 06:09 Dose: Not Given Meclizine HCl (Antivert -) 12.5 mg PO BID [facility] Last Admin: 03/05/17 22:51 Dose: 12.5 mg Methylprednisolone Sodium Succinate (Solu-Medrol -) 40 mg IVPB Q12H [facility] Last Admin: 03/05/17 22:37 Dose: 40 mg Miconazole Nitrate (Monistat-7 Vaginal Cream -) 1 applic VG [facility] Stop: 03/08/17 22:01 Last Admin: 03/05/17 22:31 Dose: 1 applic Nifedipine (Procardia Xl -) 30 mg PO DAILY [facility] Last Admin: 03/05/17 09:54 Dose: 30 mg Non-Formulary Medication (Cyclosporine [Restasis]) 1 each OP BID [facility] Non-Formulary Medication (Olopatadine Hcl [Patanase]) 665 mcg NS DAILY [facility] Nystatin (Nystatin Oral Suspension -) 500,000 units PO TID [facility] Last Admin: 03/06/17 06:08 Dose: 500,000 units Pantoprazole Sodium (Protonix -) 40 mg PO DAILY [facility] Last Admin: 03/05/17 09:54 Dose: 40 mg Polyethylene Glycol (Miralax (For Daily Use) -) 17 gm PO DAILY [facility] Last Admin: 03/05/17 09:55 Dose: 17 grams Rosuvastatin Calcium (Crestor -) 10 mg PO [facility] Last Admin: 03/05/17 22:28 Dose: 10 mg Senna (Senna -) 1 tab PO BID [facility] Last Admin: 03/05/17 22:26 Dose: 1 tab Sodium Chloride ([place] Nasal [place] -) 2 spray NS TID PRN PRN Reason: NASAL CONGESTION Last Admin: 03/04/17 09:57 Dose: 2 spray Sodium Chloride ([place] Nas[place] -) 2 spray NS BID [facility] Last Admin: 03/05/17 22:28 Dose: 2 sprays Valsartan (Diovan -) 160 mg PO DAILY [facility] Last Admin: 03/05/17 09:54 Dose: 160 mg - Objective Vital Signs: Vital Signs Temperature 98.3 F 03/06/17 05:57 Pulse Rate 75 03/06/17 05:57 Respiratory Rate 20 03/06/17 05:57 Blood Pressure 149/61 03/06/17 05:57 O2 Sat by Pulse Oximetry (%) 97 03/05/17 21:00 Constitutional: Yes: No Distress Cardiovascular: Yes: Regular Rate and Rhythm Respiratory: Yes: Other (scattered rhonchi, mild expiratory wheezing anteriorly) Gastrointestinal: Yes: Soft, Abdomen, Obese Edema: No Integumentary: Yes: Bruising Neurological: Yes: Alert Labs: CBC, BMP 03/06/17 06:00 03/05/17 05:35 INR, PTT INR 2.02 (0.82-1.09) H 03/06/17 06:00 Microbiology 03/02/17 00:45 Blood - Peripheral Venous Blood Culture - Preliminary NO GROWTH OBTAINED AFTER 72 HOURS, INCUBATION TO CONTINUE FOR 2 DAYS. 03/02/17 00:45 Blood - Peripheral Venous Blood Culture - Preliminary NO GROWTH OBTAINED AFTER 72 HOURS, INCUBATION TO CONTINUE FOR 2 DAYS. Laboratory Tests 03/06/17 03/06/17 06:00 06:00 WBC 16.5 H Hgb 7.8 L Plt Count 249 INR 2.02 H Assessment/Plan IMP: ADVANCED COPD O2 DEPENDENT WITH ACUTE EXACERBATION CHRONIC HYPOXEMIC RESPIRATORY CHF PULMONARY HTN H/O PULMONARY EMBOLISM EPISTAXIS SUPRA-THERAPEUTIC INR REC: Coumadin resumed, consider switch to a NOAC if ok w/ pulmonary. Steroid taper as per pulmonary. Mild sinus tach likely due to acute exacerbation COPD, steroid and effect of albuterol now improved/resolved.
--- NOTE | 2017-03-06 10:10 | PN ---
Physical Exam: SUBJECTIVE: Patient seen and examined patient states that she fells better, states bretahing is slighly better than yesterday but still gets short of breath while getting out of bed states cough has improved denies nausea, vomting, fever OBJECTIVE: Vital Signs Period Temp Pulse Resp BP Sys/Nielsen Pulse Ox Last 24 Hr 98.3 F-98.6 F 75-114 20-20 123-149/59-69 97-97 GENERAL: Awake, alert, and fully oriented, in no acute distress. EARS, NOSE, THROAT: Moist mucous membranes. NECK: no lymphadenopathy, LUNGS: Breath sounds equal, clear to auscultation bilaterally, decrease air entry b/l . wheez decreased since yesterday. HEART: s1s2 normal ABDOMEN: Soft, nontender, not distended, normoactive bowel sounds, UPPER EXTREMITIES: 2+ pulses, warm, well-perfused. No cyanosis. LOWER EXTREMITIES: warm, well-perfused. No peripheral edema. Laboratory Results - last 24 hr 03/05/17 03/05/17 03/05/17 05:35 05:35 05:35 WBC RBC Hgb Hct MCV MCHC RDW Plt Count MPV Neutrophils % Lymphocytes % Monocytes % Eosinophils % Basophils % Platelet Estimate Adequate Hypochromic-Microcytic 2+ Basophilic Stippling Occ Target Cells Few INR POC Glucometer Uric Acid 7.3 H Cancelled 03/05/17 03/05/17 03/05/17 11:51 17:51 22:35 WBC RBC Hgb Hct MCV MCHC RDW Plt Count MPV Neutrophils % Lymphocytes % Monocytes % Eosinophils % Basophils % Platelet Estimate Hypochromic-Microcytic Basophilic Stippling Target Cells INR POC Glucometer 115 172 194 Uric Acid 03/06/17 03/06/17 03/06/17 06:00 06:00 06:06 WBC 16.5 H RBC 3.60 Hgb 7.8 L Hct 27.5 L MCV 76.4 L MCHC 28.4 L RDW 16.1 H Plt Count 249 MPV 8.9 Neutrophils % 86.7 H Lymphocytes % 8.2 Monocytes % 5.0 Eosinophils % 0.0 Basophils % 0.1 Platelet Estimate Hypochromic-Microcytic Basophilic Stippling Target Cells INR 2.02 H POC Glucometer 172 Uric Acid Active Medications Generic Name Dose Route Start Last Admin Trade Name Freq PRN Reason Stop Dose Admin Albuterol Sulfate 1 amp 03/02/17 15:42 03/03/17 14:30 Ventolin 0.083% Nebulizer Soln - NEB 1 amp Q4H PRN Administration SHORT OF BREATH/WHEEZING Albuterol/Ipratropium 1 amp 03/03/17 12:00 03/06/17 06:45 Duoneb - NEB 1 amp QIDR TWIN Administration Aspirin 81 mg 03/03/17 10:00 03/05/17 09:54 Asa - PO 81 mg DAILY TWIN Administration Budesonide/Formoterol Fumarate 1 puff 03/02/17 22:00 03/05/17 22:25 Symbicort 160/4.5mcg - IH 1 puff BID TWIN Administration Ferrous Sulfate 325 mg 03/05/17 10:00 03/05/17 09:54 Feosol - PO 325 mg DAILY TWIN Administration Fluticasone Propionate 1 spray 03/02/17 22:00 03/05/17 22:31 Flonase - NS Not Given BID TWIN Furosemide 20 mg 03/03/17 14:00 03/06/17 06:08 Lasix - PO 20 mg BIDLASIX TWIN Administration Guaifenesin/Codeine Phosphate 5 ml 03/04/17 11:23 03/05/17 22:32 Robitussin Ac - PO 5 ml QID PRN Administration COUGH Hydrochlorothiazide 12.5 mg 03/03/17 10:00 03/05/17 09:54 Hctz - PO 12.5 mg DAILY TWIN Administration Levofloxacin 100 mls @ 100 mls/hr 03/03/17 10:00 03/05/17 09:53 Levaquin 500 Mg Premixed Ivpb - IVPB 100 mls/hr DAILY TWIN Administration Insulin Aspart 1 vial 03/04/17 07:00 03/06/17 06:09 Novolog Vial Sliding Scale - SQ Not Given ACHS [facility] Protocol Meclizine HCl 12.5 mg 03/02/17 22:00 03/05/17 22:51 Antivert - PO 12.5 mg BID TWIN Administration Methylprednisolone Sodium Succinate 40 mg 03/04/17 11:30 03/05/17 22:37 Solu-Medrol - IVPB 40 mg Q12H TWIN Administration Miconazole Nitrate 1 applic 03/02/17 22:00 03/05/17 22:31 Monistat-7 Vaginal Cream - VG 03/08/17 22:01 1 applic HS TWIN Administration Nifedipine 30 mg 03/03/17 10:00 03/05/17 09:54 Procardia Xl - PO 30 mg DAILY TWIN Administration Non-Formulary Medication 1 each 03/02/17 22:00 Cyclosporine [Restasis] OP BID TWIN Non-Formulary Medication 665 mcg 03/03/17 10:00 Olopatadine Hcl [Patanase] NS DAILY TWIN Nystatin 500,000 units 03/02/17 22:00 03/06/17 06:08 Nystatin Oral Suspension - PO 500,000 units TID TWIN Administration Pantoprazole Sodium 40 mg 03/03/17 10:00 03/05/17 09:54 Protonix - PO 40 mg DAILY TWIN Administration Polyethylene Glycol 17 gm 03/04/17 10:00 03/05/17 09:55 Miralax (For Daily Use) - PO 17 grams DAILY TWIN Administration Rosuvastatin Calcium 10 mg 03/02/17 22:00 03/05/17 22:28 Crestor - PO 10 mg HS TWIN Administration Senna 1 tab 03/04/17 23:00 03/05/17 22:26 Senna - PO 1 tab BID TWIN Administration Sodium Chloride 2 spray 03/02/17 15:46 03/04/17 09:57 [place] Nas[place] - NS 2 spray TID PRN Administration NASAL CONGESTION Sodium Chloride 2 spray 03/04/17 22:00 03/05/17 22:28 [place] - NS 2 sprays BID TWIN Administration Valsartan 160 mg 03/03/17 10:00 03/05/17 09:54 Diovan - PO 160 mg DAILY TWIN Administration ASSESSMENT/PLAN: DYSPNEA: improved copd excerbration, Has advanced copd with oxygen dependent in home CHRONIC HYPOXEMIC RESPIRATORY chronic chf : LV Diastolic Dysfunction epistaxis resolved supra therapeutic inr : improved h/o pulmonary hypertension h/o pulmonary embolism and dvt h/o stroke h/o htn morbid obesity PLAN continue duoneb nebulizer qid twin on symbicort 1 puff bid continue with Iv steroid solu 40 mg bid humdified oxygen keep spo2 > 90 ocean nasal spray for crusting in nose can change to po levaquin INR in theraputic range Visit type - Emergency Visit Emergency Visit: Yes ED Registration Date: 03/02/17 Care time: The patient presented to the Emergency Department on the above date and was hospitalized for further evaluation of their emergent condition. - New Patient This patient is new to me today: No - Critical Care Critical Care patient: No
[2017-03-06] MEDS ORDERED: PT OWN MED DRAWER 7, Y5N ONE (10:17)
[2017-03-06] MEDS: SODIUM CHLORIDE NASAL SPRAY 44 ML BOTTLE NS PRN ×2 (10:31→21:37)
[2017-03-06] MEDS: POLYETHYLENE GLYCOL 3350 119 GM BTL PO SCH (10:32)
[2017-03-06] MEDS: LEVOFLOXACIN 500 MG IVPB 100 ML IVPB SCH (10:32)
[2017-03-06] MEDS: BUDESONIDE/FORMETEROL FUMARATE 160/4.5 mcg INHALER IH SCH ×2 (10:32→21:37)
[2017-03-06] MEDS: ASPIRIN 81 MG CHEWABLE TABLETS PO SCH (10:36)
[2017-03-06] MEDS: NIFEdipine E.R. 30 MG TABLET (FP) PO SCH (10:36)
[2017-03-06] MEDS: SENNOSIDES 8.6MG TABLET (FP) PO SCH ×2 (10:36→21:32)
[2017-03-06] MEDS: FERROUS SO4 325 MG TABLET (FP) PO SCH (10:36)
[2017-03-06] MEDS: VALSARTAN 160 MG TABLET (UD) PO SCH (10:36)
[2017-03-06] MEDS: HYDROCHLOROTHIAZIDE 12.5 MG CAPSULE (FP) PO SCH (10:37)
[2017-03-06] MEDS: FLUTICASONE PROP 0.05% 16 GM NASAL SPRAY NS SCH ×2 (10:38→21:33)
[2017-03-06] MEDS: MECLIZINE HCL 12.5 MG TABLET PO SCH ×2 (10:39→21:32)
[2017-03-06] MEDS: PANTOPRAZOLE 20 MG TABLET (FP) PO SCH (10:39)
[2017-03-06] MEDS: SODIUM CHLORIDE NASAL SPRAY 44 ML BOTTLE NS SCH ×2 (10:41→22:00)
[2017-03-06] MEDS ORDERED: BISACODYL 10 MG SUPP.RECT RC ONE (10:45)
[2017-03-06] MEDS: methylPREDNISolone NA SUCC 40 MG/1 ML VIAL IVPB SCH (12:18)
--- NOTE | 2017-03-06 14:29 | PN ---
Teaching Attending Note Name of Resident: Peter Bolivar ATTENDING PHYSICIAN STATEMENT I saw and evaluated the patient. I reviewed the resident's note and discussed the case with the resident. I agree with the resident's findings and plan as documented. PATIENT STATES SHE HAD A HOME SLEEP STUDY THAT WAS NEGATIVE FOR [facility] AGREE WITH CURRENT LINE OF TREATMENT FOR A/E COPD WHICH SEEMS TO BE IMPROVING SLOWLY Danny ROMERO MD
[2017-03-06] MEDS ORDERED: WARFARIN NA 7.5 MG TABLET (FP) PO ONE (18:00)
[2017-03-06] MEDS: ROSUVASTATIN CA 10 MG TABLET (FP) PO SCH (21:33)
[2017-03-06] MEDS: MICONAZOLE NITRATE 2% VAGINAL CREAM 45 GM TUBE VG SCH (21:37)
[2017-03-06] MEDS: guaiFENesin/CODEINE 5 ML UNIT-DOSE CUPS PO PRN (21:45)
--- NOTE | 2017-03-06 22:42 | PN ---
Progress Note, Physician History of Present Illness: Pt still constipated - Current Medication List Current Medications: Active Medications Albuterol Sulfate (Ventolin 0.083% Nebulizer Soln -) 1 amp NEB Q4H PRN PRN Reason: SHORT OF BREATH/WHEEZING Last Admin: 03/03/17 14:30 Dose: 1 amp Albuterol/Ipratropium (Duoneb -) 1 amp NEB QIDR [facility] Last Admin: 03/06/17 17:16 Dose: 1 amp Aspirin (Asa -) 81 mg PO DAILY [facility] Last Admin: 03/06/17 10:36 Dose: 81 mg Budesonide/Formoterol Fumarate (Symbicort 160/4.5mcg -) 1 puff IH BID [facility] Last Admin: 03/06/17 21:37 Dose: 1 puff Ferrous Sulfate (Feosol -) 325 mg PO DAILY [facility] Last Admin: 03/06/17 10:36 Dose: 325 mg Fluticasone Propionate (Flonase -) 1 spray NS BID [facility] Last Admin: 03/06/17 21:33 Dose: Not Given Furosemide (Lasix -) 20 mg PO BIDLASIX [facility] Last Admin: 03/06/17 15:09 Dose: 20 mg Guaifenesin/Codeine Phosphate (Robitussin Ac -) 5 ml PO QID PRN PRN Reason: COUGH Last Admin: 03/06/17 21:45 Dose: 5 ml Hydrochlorothiazide (Hctz -) 12.5 mg PO DAILY [facility] Last Admin: 03/06/17 10:37 Dose: 12.5 mg Insulin Aspart (Novolog Vial Sliding Scale -) 1 vial SQ ACHS [facility] PRN Reason: Protocol Last Admin: 03/06/17 21:36 Dose: Not Given Levofloxacin (Levaquin -) 500 mg PO DAILY@0600 [facility] Meclizine HCl (Antivert -) 12.5 mg PO BID [facility] Last Admin: 03/06/17 21:32 Dose: 12.5 mg Methylprednisolone Sodium Succinate (Solu-Medrol -) 40 mg IVPB Q12H [facility] Last Admin: 03/06/17 12:18 Dose: 40 mg Miconazole Nitrate (Monistat-7 Vaginal Cream -) 1 applic VG HS [facility] Stop: 03/08/17 22:01 Last Admin: 03/06/17 21:37 Dose: 1 applic Nifedipine (Procardia Xl -) 30 mg PO DAILY [facility] Last Admin: 03/06/17 10:36 Dose: 30 mg Non-Formulary Medication (Cyclosporine [Restasis]) 1 each OP BID [facility] Non-Formulary Medication (Olopatadine Hcl [Patanase]) 665 mcg NS DAILY [facility] Nystatin (Nystatin Oral Suspension -) 500,000 units PO TID [facility] Last Admin: 03/06/17 21:33 Dose: 500,000 units Pantoprazole Sodium (Protonix -) 40 mg PO DAILY [facility] Last Admin: 03/06/17 10:39 Dose: 40 mg Polyethylene Glycol (Miralax (For Daily Use) -) 17 gm PO DAILY [facility] Last Admin: 03/06/17 10:32 Dose: 17 grams Rosuvastatin Calcium (Crestor -) 10 mg PO HS [facility] Last Admin: 03/06/17 21:33 Dose: 10 mg Senna (Senna -) 1 tab PO BID [facility] Last Admin: 03/06/17 21:32 Dose: 1 tab Sodium Chloride ([place] Nasal [place] -) 2 spray NS TID PRN PRN Reason: NASAL CONGESTION Last Admin: 03/06/17 21:37 Dose: 2 spray Sodium Chloride ([place] Nasal [place] -) 2 spray NS BID [facility] Last Admin: 03/06/17 10:41 Dose: 2 sprays Valsartan (Diovan -) 160 mg PO DAILY [facility] Last Admin: 03/06/17 10:36 Dose: 160 mg - Objective Vital Signs: Vital Signs Temperature 99.0 F 03/06/17 18:00 Pulse Rate 100 H 03/06/17 18:00 Respiratory Rate 20 03/06/17 18:00 Blood Pressure 109/62 03/06/17 18:00 O2 Sat by Pulse Oximetry (%) 97 03/06/17 11:11 Constitutional: Yes: Well Nourished, Obese HENT: Yes: WNL Neck: Yes: Supple Cardiovascular: Yes: WNL, Regular Rate and Rhythm Respiratory: Yes: Diminished, Other Gastrointestinal: Yes: WNL, Normal Bowel Sounds, Abdomen, Obese Labs: CBC, BMP 03/06/17 06:00 03/05/17 05:35 INR, PTT INR 2.02 (0.82-1.09) H 03/06/17 06:00 Problem List - Problems (1) Anemia Code(s): D64.9 - ANEMIA, UNSPECIFIED (2) COPD exacerbation Code(s): J44.1 - CHRONIC OBSTRUCTIVE PULMONARY DISEASE W (ACUTE) EXACERBATION (3) Hypertension Code(s): I10 - ESSENTIAL (PRIMARY) HYPERTENSION (4) Chronic diastolic (congestive) heart failure Code(s): I50.32 - CHRONIC DIASTOLIC (CONGESTIVE) HEART FAILURE (5) Coronary artery disease Code(s): I25.10 - ATHSCL HEART DISEASE OF [place] CORONARY ARTERY W/O ANG PCTRS (6) DVT (deep venous thrombosis) Code(s): I82.409 - ACUTE EMBOLISM AND THOMBOS UNSP DEEP VN UNSP LOWER EXTREMITY (7) History of pulmonary embolism Code(s): Z86.711 - PERSONAL HISTORY OF PULMONARY EMBOLISM (8) Obesity Code(s): E66.9 - OBESITY, UNSPECIFIED
[2017-03-07] MEDS: methylPREDNISolone NA SUCC 40 MG/1 ML VIAL IVPB SCH ×3 (00:02→23:49)
[2017-03-07] MEDS: LEVOFLOXACIN 500 MG TABLET (FP) PO SCH (06:19)
[2017-03-07] MEDS: NYSTATIN 500,000 UNITS/5 ML SUSPENSION PO SCH ×3 (06:19→22:38)
[2017-03-07] MEDS: FUROSEMIDE 20 MG TABLET (FP) PO SCH ×2 (06:19→13:19)
[2017-03-07] MEDS: INSULIN SLIDING SCALE (NOVOLOG) 1 VIAL SQ SCH ×4 (06:19→22:35)
[2017-03-07] MEDS: ALBUTEROL SO4 2.5/IPRATROPIUM 0.5 INH SOL 3 ML VIAL.NEB. NEB SCH ×4 (06:40→23:15)
[2017-03-07 07:47] LABS: BASOPHIL 0.5 % (0-2.0); MCH 21.5 pg (25.7-33.7); MCHC 28.3 g/dl (32.0-36.0); MEAN CELL VOLUME 75.9 fl (80-96); MEAN PLT VOLUME 9.3 fl (7.5-11.1); PLATELET COUNT 278 K/MM3 (134-434); RDW 15.9 % (11.6-15.6); WHITE BLOOD COUNT 18.2 K/mm3 (4.0-10.0)
[2017-03-07 08:18] LABS: ALBUMIN 3.6 g/dl (3.4-5.0); BILIRUBIN,TOTAL 0.4 mg/dL (0.2-1.0); CALCIUM 8.5 mg/dL (8.5-10.1); COCKROFT - GAULT 75.327; CREATININE 1.5 mg/dL (0.55-1.02); TOT PROT 6.4 g/dl (6.4-8.2)
[2017-03-07] MEDS: ASPIRIN 81 MG CHEWABLE TABLETS PO SCH (09:46)
[2017-03-07] MEDS: PANTOPRAZOLE 20 MG TABLET (FP) PO SCH (09:46)
[2017-03-07] MEDS: NIFEdipine E.R. 30 MG TABLET (FP) PO SCH (09:47)
[2017-03-07] MEDS: HYDROCHLOROTHIAZIDE 12.5 MG CAPSULE (FP) PO SCH (09:47)
[2017-03-07] MEDS: VALSARTAN 160 MG TABLET (UD) PO SCH (09:47)
[2017-03-07] MEDS: SENNOSIDES 8.6MG TABLET (FP) PO SCH ×2 (09:47→22:38)
[2017-03-07] MEDS: FERROUS SO4 325 MG TABLET (FP) PO SCH (09:47)
[2017-03-07] MEDS: BUDESONIDE/FORMETEROL FUMARATE 160/4.5 mcg INHALER IH SCH ×2 (09:49→22:38)
[2017-03-07] MEDS: SODIUM CHLORIDE NASAL SPRAY 44 ML BOTTLE NS SCH ×2 (09:49→22:45)
[2017-03-07] MEDS: FLUTICASONE PROP 0.05% 16 GM NASAL SPRAY NS SCH ×2 (09:50→22:31)
[2017-03-07] MEDS ORDERED: PT OWN MED DRAWER 7, Y5N ONE (09:51)
[2017-03-07] MEDS: POLYETHYLENE GLYCOL 3350 119 GM BTL PO SCH (09:53)
[2017-03-07] MEDS: MECLIZINE HCL 12.5 MG TABLET PO SCH ×2 (09:53→22:37)
[2017-03-07] MEDS: guaiFENesin/CODEINE 5 ML UNIT-DOSE CUPS PO PRN ×2 (11:00→22:37)
--- NOTE | 2017-03-07 12:11 | CONSULT ---
Consult Consult Specialty:: Hematology Reason for Consultation:: Anemia, ecchymoses - History of Present Illness Chief Complaint: Patient with COPD, frequent presentations for exacerbations, is admitted for same, noted to have multiple ecchymoses - possibly worse than her baseline. On coumadin for history of PE, and ?embolic stroke. Also with long standing microcytic anemia - with gradual downtrend over past several months. History of Present Illness: No acute complaints at this time - respiratory symptoms improved with steroids/ bronchodilation etc, Has always had ecchymoses while on coumaduin - but believes worse than usual at this time. Anemia chronic and has been on iron sulfate for a several years - with no evidence of response. No overt signs of GI bleeding, but noted that hemeoccult presently positive. 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 Cardio/Vascular: Yes: CHF (chronic diastolic), HTN, Hyperlipdemia Pulmonary: Yes: COPD, O2 Dependent, Pulmonary Embolus, Other (pulmonary HTN) Heme/Onc: Yes: Anemia, Hypercoaguable State - Alcohol/Substance Use Hx Alcohol Use: No - Smoking History Smoking history: Former smoker Have you smoked in the past 12 months: No Aproximately how many cigarettes per day: 0 If you are a former smoker, when did you quit?: 1998 - Social History Usual Living Arrangement: Alone History of Recent Travel: No Home Medications - Allergies Allergies/Adverse Reactions: Allergies Allergy/AdvReac Type Severity Reaction Status Date / Time No Known Allergies Allergy Verified 03/02/17 10:40 - Home Medications Home Medications: Ambulatory Orders Mometasone Furoate [Nasonex] 1 - 2 inh NS PRN 01/21/14 Olmesartan/Hydrochlorothiazide [Benicar Hct 20-12.5 mg Tablet] 1 each PO DAILY 01/21/14 Promethazine/Phenyleph/Codeine [Promethazine Vc-Codeine Syrup] 120 ml PO PRN Aspirin [ASA -] 81 mg PO DAILY #30 tab.chew 08/03/14 Cholecalciferol (Vitamin D3) [Vitamin D3] 2,000 unit PO DAILY #30 capsule Docusate Sodium [Colace -] 200 mg PO PRN #30 capsule 08/03/14 Miconazole Nitrate [Miconazole Nitrate -] 1 applic TP PRN #7 tube 08/03/14 Clobetasol Propionate/Emoll [Olux-E 0.05% Foam] 100 gm TP PRN 11/20/15 Acetaminophen [Tylenol] 650 mg PO TID PRN 11/23/15 Colchicine [Colcrys] 0.6 mg PO DAILY PRN 11/23/15 Levalbuterol Tartrate [Xopenex Hfa] 15 gm IH BID 11/23/15 Nystatin Oral Suspension - [Nystatin Oral Susp 094983 Units/5 ML -] 5 ml PO BID 11/23/15 Olopatadine HCl [Patanase] 665 mcg NS DAILY 11/23/15 Albuterol 0.083% Nebulizer [place] [Ventolin 0.083% Nebulizer Soln -] 1 neb NEB QID PRN #7 vial 11/26/15 Budesonide/Formeterol Fumarate [SYMBICORT 160/4.5mcg -] 1 inh PO BID #7 inhaler 11/26/15 Cyclosporine [Restasis] 1 each OP BID #30 droperette 11/26/15 Ferrous Sulfate [Feosol] 325 mg PO TID #30 ud 11/26/15 Furosemide [Lasix -] 20 mg PO BID #60 tablet 11/26/15 Guaifenesin AC [Robitussin AC -] 5 ml PO Q6H PRN #30 liquid 11/26/15 Meclizine HCl [Antivert -] 12.5 mg PO BID #30 tablet 11/26/15 Nifedipine ER [Procardia XL -] 30 mg PO DAILY #30 tab.er.24 11/26/15 Pantoprazole Sodium [Protonix -] 40 mg PO DAILY #30 tablet.ec 11/26/15 Prednisone [Deltasone -] 25 mg PO BID #30 tablet 11/26/15 Rosuvastatin Calcium [Crestor] 10 mg PO HS #30 tablet 11/26/15 Tiotropium [place] [Spiriva] 1 inh PO DAILY #7 inh 11/26/15 Warfarin Na [Coumadin -] 4 mg PO [id number] #30 tablet 11/26/15 Family Disease History - Family Disease History Family History: Unremarkable (No reported history of thromboembolism.) Review of Systems - Review of Systems Constitutional: reports: No Symptoms Eyes: reports: No Symptoms HENT: reports: No Symptoms Neck: reports: No Symptoms Cardiovascular: reports: No Symptoms Respiratory: reports: Exercise Intolerance, Orthopnea, SOB on Exertion Gastrointestinal: reports: No Symptoms Genitourinary: reports: No Symptoms Musculoskeletal: reports: No Symptoms Integumentary: reports: Bruising Neurological: reports: No Symptoms Endocrine: reports: No Symptoms Hematology/Lymphatic: reports: Easily Bruised Psychiatric: reports: No Symptoms Physical Exam Vital Signs: Vital Signs Temperature 98.2 F 03/07/17 09:00 Pulse Rate 107 H 03/07/17 09:00 Respiratory Rate 20 03/07/17 09:00 Blood Pressure 157/71 03/07/17 09:00 O2 Sat by Pulse Oximetry (%) 99 03/07/17 09:00 Constitutional: Yes: Well Nourished, Obese Eyes: Yes: WNL, Other (L eye injection) HENT: Yes: WNL, Atraumatic, Normocephalic Neck: Yes: WNL, Trachea Midline Cardiovascular: Yes: WNL, Regular Rate and Rhythm Respiratory: Yes: WNL, Wheezes Gastrointestinal: Yes: WNL, Normal Bowel Sounds, Soft, Abdomen, Obese Renal/: Yes: WNL Breast(s): Yes: WNL Musculoskeletal: Yes: WNL Extremities: Yes: WNL Integumentary: Yes: Bruising Neurological: Yes: WNL, Alert, Oriented ...Motor Strength: WNL Psychiatric: Yes: WNL Labs: CBC, BMP 03/07/17 06:00 03/07/17 06:00 Assessment/Plan Patient with COPD, multiple exacerbations, consulted re. ecchymoses, and anemia. Echymoses likley attributable to elevated INRs, aspirin, and steroids. Observation alone warranted, and maintaining INR <3. Remote history of PE (?provoked), on anticoagulation for a period of time but then apparently stopped. 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 In light of current morbidity with warfarin (echymoses, possible GI hemorrhage), important to revisit prior decision for lifelong AC. CVA in of itself is not an indication for full AC - aspirin alone may be sufficient. Microcytic anemia is long standing, empiricaly being treated with iron. Most recent available ferritin (2013) > 400, suggesting that microcytosis more likely attributable to a thalassemia trait. Patient with significant constipation from iron supplementation. Will check iron panel, and DC iron if ferritin > 100 at this time. Drop in Hb over past several months noted - warrants workup. Possibly attributable to decline in renal function. Will check hematinics, and also screen for plasma cell dyscrasias. Positive stool hemeoccult noted.
--- NOTE | 2017-03-07 13:46 | PN ---
Progress Note (short form) - Note Progress Note: PULMONARY Breathing slowly improving. +cough and wheezing. Last Vital Signs Temp Pulse Resp BP Pulse Ox 98.2 F 107 H 20 157/71 99 03/07/17 09:00 03/07/17 09:00 03/07/17 09:00 03/07/17 09:00 03/07/17 09:00 Gen: NAD at rest Heart: RRR Lung: distant breath sounds, +wheezes, rhonchi but less Abd: soft, nontender Ext: no edema CBC, BMP 03/07/17 06:00 03/07/17 06:00 Active Medications Albuterol Sulfate (Ventolin 0.083% Nebulizer Soln -) 1 amp NEB Q4H PRN PRN Reason: SHORT OF BREATH/WHEEZING Last Admin: 03/03/17 14:30 Dose: 1 amp Albuterol/Ipratropium (Duoneb -) 1 amp NEB QIDR [facility] Last Admin: 03/07/17 11:44 Dose: 1 amp Aspirin (Asa -) 81 mg PO DAILY [facility] Last Admin: 03/07/17 09:46 Dose: 81 mg Budesonide/Formoterol Fumarate (Symbicort 160/4.5mcg -) 1 puff IH BID [facility] Last Admin: 03/07/17 09:49 Dose: 1 puff Ferrous Sulfate (Feosol -) 325 mg PO DAILY [facility] Last Admin: 03/07/17 09:47 Dose: 325 mg Fluticasone Propionate (Flonase -) 1 spray NS BID [facility] Last Admin: 03/07/17 09:50 Dose: Not Given Furosemide (Lasix -) 20 mg PO BIDLASIX [facility] Last Admin: 03/07/17 13:19 Dose: 20 mg Guaifenesin/Codeine Phosphate (Robitussin Ac -) 5 ml PO QID PRN PRN Reason: COUGH Last Admin: 03/07/17 11:00 Dose: 5 ml Hydrochlorothiazide (Hctz -) 12.5 mg PO DAILY [facility] Last Admin: 03/07/17 09:47 Dose: 12.5 mg Insulin Aspart (Novolog Vial Sliding Scale -) 1 vial SQ ACHS [facility] PRN Reason: Protocol Last Admin: 03/07/17 11:54 Dose: Not Given Levofloxacin (Levaquin -) 500 mg PO DAILY@0600 [facility] Last Admin: 03/07/17 06:19 Dose: 500 mg Meclizine HCl (Antivert -) 12.5 mg PO BID [facility] Last Admin: 03/07/17 09:53 Dose: 12.5 mg Methylprednisolone Sodium Succinate (Solu-Medrol -) 40 mg IVPB Q12H [facility] Last Admin: 03/07/17 11:00 Dose: 40 mg Miconazole Nitrate (Monistat-7 Vaginal Cream -) 1 applic VG [facility] Stop: 03/08/17 22:01 Last Admin: 03/06/17 21:37 Dose: 1 applic Nifedipine (Procardia Xl -) 30 mg PO DAILY [facility] Last Admin: 03/07/17 09:47 Dose: 30 mg Non-Formulary Medication (Cyclosporine [Restasis]) 1 each OP BID [facility] Non-Formulary Medication (Olopatadine Hcl [Patanase]) 665 mcg NS DAILY [facility] Nystatin (Nystatin Oral Suspension -) 500,000 units PO TID [facility] Last Admin: 03/07/17 13:19 Dose: 500,000 units Pantoprazole Sodium (Protonix -) 40 mg PO DAILY [facility] Last Admin: 03/07/17 09:46 Dose: 40 mg Polyethylene Glycol (Miralax (For Daily Use) -) 17 gm PO DAILY [facility] Last Admin: 03/07/17 09:53 Dose: 17 grams Rosuvastatin Calcium (Crestor -) 10 mg PO [facility] Last Admin: 03/06/17 21:33 Dose: 10 mg Senna (Senna -) 1 tab PO BID [facility] Last Admin: 03/07/17 09:47 Dose: 1 tab Sodium Chloride ([place]al [place] -) 2 spray NS TID PRN PRN Reason: NASAL CONGESTION Last Admin: 03/06/17 21:37 Dose: 2 spray Sodium Chloride ([place] -) 2 spray NS BID [facility] Last Admin: 03/07/17 09:49 Dose: 2 sprays Valsartan (Diovan -) 160 mg PO DAILY [facility] Last Admin: 03/07/17 09:47 Dose: 160 mg A/P Acute COPD Exacerbation Acute Hypoxic Respiratory Failure LV Diastolic Dysfunction Pulmonary HTN h/o PE - continue medrol at current dose, can change steroids to PO in AM if continues to improve - inhaled bronchodilators - O2 as needed - continue anticoagulation with target INR 2-3 - lasix
--- NOTE | 2017-03-07 15:13 | PN ---
Progress Note, Physician History of Present Illness: Pt states that she is feeling weak and is not sure if she is able to be dc'ed tomorrow - Current Medication List Current Medications: Active Medications Albuterol Sulfate (Ventolin 0.083% Nebulizer Soln -) 1 amp NEB Q4H PRN PRN Reason: SHORT OF BREATH/WHEEZING Last Admin: 03/03/17 14:30 Dose: 1 amp Albuterol/Ipratropium (Duoneb -) 1 amp NEB QIDR [facility] Last Admin: 03/07/17 11:44 Dose: 1 amp Aspirin (Asa -) 81 mg PO DAILY [facility] Last Admin: 03/07/17 09:46 Dose: 81 mg Budesonide/Formoterol Fumarate (Symbicort 160/4.5mcg -) 1 puff IH BID [facility] Last Admin: 03/07/17 09:49 Dose: 1 puff Ferrous Sulfate (Feosol -) 325 mg PO DAILY [facility] Last Admin: 03/07/17 09:47 Dose: 325 mg Fluticasone Propionate (Flonase -) 1 spray NS BID [facility] Last Admin: 03/07/17 09:50 Dose: Not Given Furosemide (Lasix -) 20 mg PO BIDLASIX [facility] Last Admin: 03/07/17 13:19 Dose: 20 mg Guaifenesin/Codeine Phosphate (Robitussin Ac -) 5 ml PO QID PRN PRN Reason: COUGH Last Admin: 03/07/17 11:00 Dose: 5 ml Hydrochlorothiazide (Hctz -) 12.5 mg PO DAILY [facility] Last Admin: 03/07/17 09:47 Dose: 12.5 mg Insulin Aspart (Novolog Vial Sliding Scale -) 1 vial SQ ACHS [facility] PRN Reason: Protocol Last Admin: 03/07/17 11:54 Dose: Not Given Levofloxacin (Levaquin -) 500 mg PO DAILY@0600 [facility] Last Admin: 03/07/17 06:19 Dose: 500 mg Meclizine HCl (Antivert -) 12.5 mg PO BID [facility] Last Admin: 03/07/17 09:53 Dose: 12.5 mg Methylprednisolone Sodium Succinate (Solu-Medrol -) 40 mg IVPB Q12H [facility] Last Admin: 03/07/17 11:00 Dose: 40 mg Miconazole Nitrate (Monistat-7 Vaginal Cream -) 1 applic VG [facility] Stop: 03/08/17 22:01 Last Admin: 03/06/17 21:37 Dose: 1 applic Nifedipine (Procardia Xl -) 30 mg PO DAILY [facility] Last Admin: 03/07/17 09:47 Dose: 30 mg Non-Formulary Medication (Cyclosporine [Restasis]) 1 each OP BID [facility] Non-Formulary Medication (Olopatadine Hcl [Patanase]) 665 mcg NS DAILY [facility] Nystatin (Nystatin Oral Suspension -) 500,000 units PO TID [facility] Last Admin: 03/07/17 13:19 Dose: 500,000 units Pantoprazole Sodium (Protonix -) 40 mg PO DAILY [facility] Last Admin: 03/07/17 09:46 Dose: 40 mg Polyethylene Glycol (Miralax (For Daily Use) -) 17 gm PO DAILY [facility] Last Admin: 03/07/17 09:53 Dose: 17 grams Rosuvastatin Calcium (Crestor -) 10 mg PO [facility] Last Admin: 03/06/17 21:33 Dose: 10 mg Senna (Senna -) 1 tab PO BID [facility] Last Admin: 03/07/17 09:47 Dose: 1 tab Sodium Chloride ([place] Nasal [place] -) 2 spray NS TID PRN PRN Reason: NASAL CONGESTION Last Admin: 03/06/17 21:37 Dose: 2 spray Sodium Chloride ([place] Nasal [place] -) 2 spray NS BID [facility] Last Admin: 03/07/17 09:49 Dose: 2 sprays Valsartan (Diovan -) 160 mg PO DAILY [facility] Last Admin: 03/07/17 09:47 Dose: 160 mg Warfarin Sodium (Coumadin -) 5 mg PO DAILY@1800 [facility] - Objective Vital Signs: Vital Signs Temperature 98.9 F 03/07/17 15:10 Pulse Rate 91 H 03/07/17 15:10 Respiratory Rate 20 03/07/17 15:10 Blood Pressure 125/53 03/07/17 15:10 O2 Sat by Pulse Oximetry (%) 99 03/07/17 09:00 Constitutional: Yes: Well Nourished HENT: Yes: WNL Neck: Yes: Supple Cardiovascular: Yes: WNL, Regular Rate and Rhythm Respiratory: Yes: WNL, Regular, CTA Bilaterally Gastrointestinal: Yes: WNL, Normal Bowel Sounds, Soft Labs: CBC, BMP 03/07/17 06:00 03/07/17 06:00 INR, PTT INR 2.02 (0.82-1.09) H 03/06/17 06:00 Problem List - Problems (1) Anemia Code(s): D64.9 - ANEMIA, UNSPECIFIED (2) COPD exacerbation Code(s): J44.1 - CHRONIC OBSTRUCTIVE PULMONARY DISEASE W (ACUTE) EXACERBATION (3) Hypertension Code(s): I10 - ESSENTIAL (PRIMARY) HYPERTENSION (4) Chronic diastolic (congestive) heart failure Code(s): I50.32 - CHRONIC DIASTOLIC (CONGESTIVE) HEART FAILURE (5) Coronary artery disease Code(s): I25.10 - ATHSCL HEART DISEASE OF [place] CORONARY ARTERY W/O ANG PCTRS (6) DVT (deep venous thrombosis) Code(s): I82.409 - ACUTE EMBOLISM AND THOMBOS UNSP DEEP VN UNSP LOWER EXTREMITY (7) History of pulmonary embolism Code(s): Z86.711 - PERSONAL HISTORY OF PULMONARY EMBOLISM (8) Obesity Code(s): E66.9 - OBESITY, UNSPECIFIED
[2017-03-07 17:49] LABS: INR 3.34 (0.82-1.09); PROTHROMBIN TIME (PATIENT) 37.6 SEC (9.98-11.88)
[2017-03-07] MEDS: WARFARIN NA 5 MG TABLET (UD) PO SCH (20:29)
[2017-03-07] MEDS: MICONAZOLE NITRATE 2% VAGINAL CREAM 45 GM TUBE VG SCH (22:38)
[2017-03-07] MEDS: ROSUVASTATIN CA 10 MG TABLET (FP) PO SCH (22:38)
[2017-03-07] MEDS: SODIUM CHLORIDE NASAL SPRAY 44 ML BOTTLE NS PRN (22:39)
[2017-03-08] MEDS: ALBUTEROL SO4 0.083% IH SOL 2.5 MG/3 ML VIAL.NEB. NEB PRN (02:16)
[2017-03-08] MEDS: LEVOFLOXACIN 500 MG TABLET (FP) PO SCH (06:26)
[2017-03-08] MEDS: FUROSEMIDE 20 MG TABLET (FP) PO SCH ×2 (06:26→13:46)
[2017-03-08] MEDS: INSULIN SLIDING SCALE (NOVOLOG) 1 VIAL SQ SCH ×4 (06:26→22:43)
[2017-03-08] MEDS: NYSTATIN 500,000 UNITS/5 ML SUSPENSION PO SCH ×3 (06:26→22:38)
[2017-03-08] MEDS: ALBUTEROL SO4 2.5/IPRATROPIUM 0.5 INH SOL 3 ML VIAL.NEB. NEB SCH ×3 (06:30→18:05)
[2017-03-08 07:36] LABS: BASOPHIL 0.1 % (0-2.0); MCH 21.6 pg (25.7-33.7); MCHC 28.3 g/dl (32.0-36.0); MEAN CELL VOLUME 76.3 fl (80-96); MEAN PLT VOLUME 9.7 fl (7.5-11.1); NEUTROPHILS 87.9 % (42.8-82.8); PLATELET COUNT 293 K/MM3 (134-434); RDW 15.7 % (11.6-15.6); WHITE BLOOD COUNT 18.5 K/mm3 (4.0-10.0)
[2017-03-08 07:41] LABS: INR 3.39 (0.82-1.09); PROTHROMBIN TIME (PATIENT) 38.2 SEC (9.98-11.88)
[2017-03-08 08:00] LABS: ALBUMIN 3.5 g/dl (3.4-5.0); BILIRUBIN,TOTAL 0.4 mg/dL (0.2-1.0); CALCIUM 8.3 mg/dL (8.5-10.1); CREATININE 1.5 mg/dL (0.55-1.02); TOT PROT 6.3 g/dl (6.4-8.2)
[2017-03-08 08:02] LABS: FERRITIN 19.73 ng/ml (6.9-282.5)
[2017-03-08 08:26] LABS: COCKROFT - GAULT 75.3355
[2017-03-08] MEDS ORDERED: PT OWN MED DRAWER 7, Y5N ONE ×3 (10:04→21:44)
[2017-03-08] MEDS: HYDROCHLOROTHIAZIDE 12.5 MG CAPSULE (FP) PO SCH (11:22)
[2017-03-08] MEDS: ASPIRIN 81 MG CHEWABLE TABLETS PO SCH (11:22)
[2017-03-08] MEDS: methylPREDNISolone NA SUCC 40 MG/1 ML VIAL IVPB SCH ×2 (11:22→23:24)
[2017-03-08] MEDS: VALSARTAN 160 MG TABLET (UD) PO SCH (11:22)
[2017-03-08] MEDS: FERROUS SO4 325 MG TABLET (FP) PO SCH (11:22)
[2017-03-08] MEDS: PANTOPRAZOLE 20 MG TABLET (FP) PO SCH (11:23)
[2017-03-08] MEDS: FLUTICASONE PROP 0.05% 16 GM NASAL SPRAY NS SCH ×2 (11:24→22:41)
[2017-03-08] MEDS: guaiFENesin/CODEINE 5 ML UNIT-DOSE CUPS PO PRN ×2 (11:24→22:48)
[2017-03-08] MEDS: NIFEdipine E.R. 30 MG TABLET (FP) PO SCH (11:24)
[2017-03-08] MEDS: POLYETHYLENE GLYCOL 3350 119 GM BTL PO SCH (11:25)
--- NOTE | 2017-03-08 11:26 | PN ---
Progress Note (short form) - Note Progress Note: PULMONARY Breathing slowly improving but still with chest tightness. +cough and wheezing. Last Vital Signs Temp Pulse Resp BP Pulse Ox 98.9 F 100 H 20 119/63 96 03/08/17 10:00 03/08/17 10:00 03/08/17 10:00 03/08/17 10:00 03/08/17 09:00 Gen: NAD at rest Heart: RRR Lung: distant breath sounds, +wheezes, rhonchi but less Abd: soft, nontender Ext: no edema CBC, BMP 03/08/17 06:10 03/08/17 06:10 Active Medications Albuterol Sulfate (Ventolin 0.083% Nebulizer Soln -) 1 amp NEB Q4H PRN PRN Reason: SHORT OF BREATH/WHEEZING Last Admin: 03/08/17 02:16 Dose: 1 amp Albuterol/Ipratropium (Duoneb -) 1 amp NEB QIDR [facility] Last Admin: 03/08/17 06:30 Dose: 1 amp Aspirin (Asa -) 81 mg PO DAILY [facility] Last Admin: 03/07/17 09:46 Dose: 81 mg Budesonide/Formoterol Fumarate (Symbicort 160/4.5mcg -) 1 puff IH BID [facility] Last Admin: 03/07/17 22:38 Dose: 1 puff Ferrous Sulfate (Feosol -) 325 mg PO DAILY [facility] Last Admin: 03/07/17 09:47 Dose: 325 mg Fluticasone Propionate (Flonase -) 1 spray NS BID [facility] Last Admin: 03/07/17 22:31 Dose: Not Given Furosemide (Lasix -) 20 mg PO BIDLASIX [facility] Last Admin: 03/08/17 06:26 Dose: 20 mg Guaifenesin/Codeine Phosphate (Robitussin Ac -) 5 ml PO QID PRN PRN Reason: COUGH Last Admin: 03/07/17 22:37 Dose: 5 ml Hydrochlorothiazide (Hctz -) 12.5 mg PO DAILY [facility] Last Admin: 03/07/17 09:47 Dose: 12.5 mg Insulin Aspart (Novolog Vial Sliding Scale -) 1 vial SQ ACHS [facility] PRN Reason: Protocol Last Admin: 03/08/17 06:26 Dose: Not Given Levofloxacin (Levaquin -) 500 mg PO DAILY@0600 [facility] Last Admin: 03/08/17 06:26 Dose: 500 mg Meclizine HCl (Antivert -) 12.5 mg PO BID [facility] Last Admin: 03/07/17 22:37 Dose: 12.5 mg Methylprednisolone Sodium Succinate (Solu-Medrol -) 40 mg IVPB Q12H [facility] Last Admin: 03/07/17 23:49 Dose: 40 mg Miconazole Nitrate (Monistat-7 Vaginal Cream -) 1 applic VG [facility] Stop: 03/08/17 22:01 Last Admin: 03/07/17 22:38 Dose: 1 applic Nifedipine (Procardia Xl -) 30 mg PO DAILY [facility] Last Admin: 03/07/17 09:47 Dose: 30 mg Non-Formulary Medication (Cyclosporine [Restasis]) 1 each OP BID [facility] Non-Formulary Medication (Olopatadine Hcl [Patanase]) 665 mcg NS DAILY [facility] Nystatin (Nystatin Oral Suspension -) 500,000 units PO TID [facility] Last Admin: 03/08/17 06:26 Dose: 500,000 units Pantoprazole Sodium (Protonix -) 40 mg PO DAILY [facility] Last Admin: 03/07/17 09:46 Dose: 40 mg Polyethylene Glycol (Miralax (For Daily Use) -) 17 gm PO DAILY [facility] Last Admin: 03/07/17 09:53 Dose: 17 grams Rosuvastatin Calcium (Crestor -) 10 mg PO [facility] Last Admin: 03/07/17 22:38 Dose: 10 mg Senna (Senna -) 1 tab PO BID [facility] Last Admin: 03/07/17 22:38 Dose: 1 tab Sodium Chloride ([place] -) 2 spray NS TID PRN PRN Reason: NASAL CONGESTION Last Admin: 03/07/17 22:39 Dose: 2 spray Sodium Chloride ([place] -) 2 spray NS BID [facility] Last Admin: 03/07/17 22:45 Dose: 2 sprays Valsartan (Diovan -) 160 mg PO DAILY [facility] Last Admin: 03/07/17 09:47 Dose: 160 mg Warfarin Sodium (Coumadin -) 5 mg PO DAILY@1800 [facility] Last Admin: 03/07/17 20:29 Dose: Not Given A/P Acute COPD Exacerbation Acute Hypoxic Respiratory Failure LV Diastolic Dysfunction Pulmonary HTN h/o PE - will continue medrol at current dose, can change steroids to PO in AM if continues to improve - inhaled bronchodilators - O2 as needed - continue anticoagulation with target INR 2-3 - lasix
[2017-03-08] MEDS: SODIUM CHLORIDE NASAL SPRAY 44 ML BOTTLE NS PRN (11:27)
[2017-03-08] MEDS: BUDESONIDE/FORMETEROL FUMARATE 160/4.5 mcg INHALER IH SCH ×2 (11:27→22:41)
[2017-03-08] MEDS: SODIUM CHLORIDE NASAL SPRAY 44 ML BOTTLE NS SCH ×2 (11:59→22:40)
[2017-03-08] MEDS: SENNOSIDES 8.6MG TABLET (FP) PO SCH ×2 (11:59→22:39)
[2017-03-08] MEDS: MECLIZINE HCL 12.5 MG TABLET PO SCH ×2 (11:59→22:39)
--- NOTE | 2017-03-08 12:00 | PN ---
Progress Note (short form) - Note Progress Note: Patient seen in follow up. Overnight events noted. Now feeling well, without acute complaints. Meds reviewed. Current Medications Generic Name Dose Route Start Last Admin Trade Name Freq PRN Reason Stop Dose Admin Albuterol Sulfate 1 amp 03/02/17 15:42 03/08/17 02:16 Ventolin 0.083% Nebulizer Soln - NEB 1 amp Q4H PRN Administration SHORT OF BREATH/WHEEZING Albuterol/Ipratropium 1 amp 03/03/17 12:00 03/08/17 06:30 Duoneb - NEB 1 amp QIDR [facility] Administration Aspirin 81 mg 03/03/17 10:00 03/07/17 09:46 Asa - PO 81 mg DAILY [facility] Administration Budesonide/Formoterol Fumarate 1 puff 03/02/17 22:00 03/07/17 22:38 Symbicort 160/4.5mcg - IH 1 puff BID [facility] Administration Ferrous Sulfate 325 mg 03/05/17 10:00 03/07/17 09:47 Feosol - PO 325 mg DAILY [facility] Administration Fluticasone Propionate 1 spray 03/02/17 22:00 03/07/17 22:31 Flonase - NS Not Given BID [facility] Furosemide 20 mg 03/03/17 14:00 03/08/17 06:26 Lasix - PO 20 mg BIDLASIX [facility] Administration Guaifenesin/Codeine Phosphate 5 ml 03/04/17 11:23 03/07/17 22:37 Robitussin Ac - PO 5 ml QID PRN Administration COUGH Hydrochlorothiazide 12.5 mg 03/03/17 10:00 03/07/17 09:47 Hctz - PO 12.5 mg DAILY [facility] Administration Insulin Aspart 1 vial 03/04/17 07:00 03/08/17 06:26 Novolog Vial Sliding Scale - SQ Not Given ACHS [facility] Protocol Levofloxacin 500 mg 03/07/17 06:00 03/08/17 06:26 Levaquin - PO 500 mg DAILY@0600 [facility] Administration Meclizine HCl 12.5 mg 03/02/17 22:00 03/07/17 22:37 Antivert - PO 12.5 mg BID [facility] Administration Methylprednisolone Sodium Succinate 40 mg 03/04/17 11:30 03/07/17 23:49 Solu-Medrol - IVPB 40 mg Q12H [facility] Administration Miconazole Nitrate 1 applic 03/02/17 22:00 03/07/17 22:38 Monistat-7 Vaginal Cream - VG 03/08/17 22:01 1 applic HS [facility] Administration Nifedipine 30 mg 03/03/17 10:00 03/07/17 09:47 Procardia Xl - PO 30 mg DAILY [facility] Administration Non-Formulary Medication 1 each 03/02/17 22:00 Cyclosporine [Restasis] OP BID [facility] Non-Formulary Medication 665 mcg 03/03/17 10:00 Olopatadine Hcl [Patanase] NS DAILY [facility] Nystatin 500,000 units 03/02/17 22:00 03/08/17 06:26 Nystatin Oral Suspension - PO 500,000 units TID [facility] Administration Pantoprazole Sodium 40 mg 03/03/17 10:00 03/07/17 09:46 Protonix - PO 40 mg DAILY [facility] Administration Polyethylene Glycol 17 gm 03/04/17 10:00 03/07/17 09:53 Miralax (For Daily Use) - PO 17 grams DAILY [facility] Administration Rosuvastatin Calcium 10 mg 03/02/17 22:00 03/07/17 22:38 Crestor - PO 10 mg HS [facility] Administration Senna 1 tab 03/04/17 23:00 03/07/17 22:38 Senna - PO 1 tab BID [facility] Administration Sodium Chloride 2 spray 03/02/17 15:46 03/07/17 22:39 [place] - NS 2 spray TID PRN Administration NASAL CONGESTION Sodium Chloride 2 spray 03/04/17 22:00 03/07/17 22:45 [place] - NS 2 sprays BID [facility] Administration Valsartan 160 mg 03/03/17 10:00 03/07/17 09:47 Diovan - PO 160 mg DAILY [facility] Administration Warfarin Sodium 5 mg 03/07/17 18:00 03/07/17 20:29 Coumadin - PO Not Given DAILY@1800 [facility] On examination: Last Vital Signs Temp Pulse Resp BP Pulse Ox 98.9 F 100 H 20 119/63 96 03/08/17 10:00 03/08/17 10:00 03/08/17 10:00 03/08/17 10:00 03/08/17 09:00 General: In no acute distress, obese. Oropharyngeal: No signs mucosal hemorrhage, no mucosal lesions. Extremities: Pallor, no icterus, no pedal edema. Chest: Good air entry bilaterally, scattered wheezes. Abdomen: Distended, but resonant throughout, soft, no organomegaly, no masses. Neuro: Alert and oriented, non-focal. CVS: Normal sinus rhythm, S1, S2, no gallop or murmur. Skin: Scattered ecchymoses Labs reviewed: CBC, BMP 03/08/17 06:10 03/08/17 06:10 Assessment: Patient with COPD, multiple exacerbations, consulted re. ecchymoses, and anemia. Ecchymoses likely attributable to elevated INRs, aspirin, and steroids. Observation alone warranted, and maintaining INR <3. Remote history of PE (?provoked), on anticoagulation for a period of time but then apparently stopped. 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 In light of current morbidity with warfarin (echymoses, possible GI hemorrhage), important to revisit prior decision for lifelong AC. CVA in of itself is not an indication for full AC - aspirin alone may be sufficient. Microcytic anemia is long standing, empirically being treated with iron. Prior most recent available ferritin (2013) > 400, and was microcytic at that time, suggesting that microcytosis more likely attributable to a thalassemia trait, albeit anemia more marked than would be expected with thalassemia trait alone - warrants workup for concomitant etiological factors. Currently ferritin < 20, confirming current iron deficiency. Will offer IV iron while admitted Patient with significant constipation from oral iron supplementation. Drop in Hb over past several months noted - warrants workup. In light of newly discovered hypoferritinemia, likely attributable to ongoing GI bleed hemorrhage. Reinforced importance of re-evaluation strength of indication for anticoagulation. Possibly attributable to some extent to decline in renal function. Will also screen for plasma cell dyscrasias, albeit with low index of suspicion. Positive stool hemeoccult noted.
[2017-03-08] MEDS: WARFARIN NA 5 MG TABLET (UD) PO SCH (17:20)
[2017-03-08] MEDS: IRON SUCROSE INJECTION 200 MG in SODIUM CHLORIDE 100 ML IVPB SCH (17:20)
--- NOTE | 2017-03-08 20:53 | PN ---
Progress Note, Physician History of Present Illness: Pt states she is having some SOB today - Current Medication List Current Medications: Active Medications Albuterol Sulfate (Ventolin 0.083% Nebulizer Soln -) 1 amp NEB Q4H PRN PRN Reason: SHORT OF BREATH/WHEEZING Last Admin: 03/08/17 02:16 Dose: 1 amp Albuterol/Ipratropium (Duoneb -) 1 amp NEB QIDR [facility] Last Admin: 03/08/17 18:05 Dose: 1 amp Aspirin (Asa -) 81 mg PO DAILY [facility] Last Admin: 03/08/17 11:22 Dose: 81 mg Budesonide/Formoterol Fumarate (Symbicort 160/4.5mcg -) 1 puff IH BID [facility] Last Admin: 03/08/17 11:27 Dose: 1 puff Ferrous Sulfate (Feosol -) 325 mg PO DAILY [facility] Last Admin: 03/08/17 11:22 Dose: 325 mg Fluticasone Propionate (Flonase -) 1 spray NS BID [facility] Last Admin: 03/08/17 11:24 Dose: Not Given Furosemide (Lasix -) 20 mg PO BIDLASIX [facility] Last Admin: 03/08/17 13:46 Dose: 20 mg Guaifenesin/Codeine Phosphate (Robitussin Ac -) 5 ml PO QID PRN PRN Reason: COUGH Last Admin: 03/08/17 11:24 Dose: 5 ml Hydrochlorothiazide (Hctz -) 12.5 mg PO DAILY [facility] Last Admin: 03/08/17 11:22 Dose: 12.5 mg Iron Sucrose 200 mg/ Sodium (Chloride) 110 mls @ 110 mls/hr IVPB DAILY [facility] Last Admin: 03/08/17 17:20 Dose: 110 mls/hr Insulin Aspart (Novolog Vial Sliding Scale -) 1 vial SQ ACHS [facility] PRN Reason: Protocol Last Admin: 03/08/17 17:27 Dose: 2 units Levofloxacin (Levaquin -) 500 mg PO DAILY@0600 [facility] Last Admin: 03/08/17 06:26 Dose: 500 mg Meclizine HCl (Antivert -) 12.5 mg PO BID [facility] Last Admin: 03/08/17 11:59 Dose: 12.5 mg Methylprednisolone Sodium Succinate (Solu-Medrol -) 40 mg IVPB Q12H [facility] Last Admin: 03/08/17 11:22 Dose: 40 mg Miconazole Nitrate (Monistat-7 Vaginal Cream -) 1 applic VG HS [facility] Stop: 03/08/17 22:01 Last Admin: 03/07/17 22:38 Dose: 1 applic Nifedipine (Procardia Xl -) 30 mg PO DAILY [facility] Last Admin: 03/08/17 11:24 Dose: 30 mg Non-Formulary Medication (Cyclosporine [Restasis]) 1 each OP BID [facility] Non-Formulary Medication (Olopatadine Hcl [Patanase]) 665 mcg NS DAILY [facility] Nystatin (Nystatin Oral Suspension -) 500,000 units PO TID [facility] Last Admin: 03/08/17 13:46 Dose: 500,000 units Pantoprazole Sodium (Protonix -) 40 mg PO DAILY [facility] Last Admin: 03/08/17 11:23 Dose: 40 mg Polyethylene Glycol (Miralax (For Daily Use) -) 17 gm PO DAILY [facility] Last Admin: 03/08/17 11:25 Dose: 17 grams Rosuvastatin Calcium (Crestor -) 10 mg PO [facility] Last Admin: 03/07/17 22:38 Dose: 10 mg Senna (Senna -) 1 tab PO BID [facility] Last Admin: 03/08/17 11:59 Dose: 1 tab Sodium Chloride ([place]al [place] -) 2 spray NS TID PRN PRN Reason: NASAL CONGESTION Last Admin: 03/08/17 11:27 Dose: 2 spray Sodium Chloride ([place] Nasal [place] -) 2 spray NS BID [facility] Last Admin: 03/08/17 11:59 Dose: 2 sprays Valsartan (Diovan -) 160 mg PO DAILY [facility] Last Admin: 03/08/17 11:22 Dose: 160 mg Warfarin Sodium (Coumadin -) 5 mg PO DAILY@1800 [facility] Last Admin: 03/08/17 17:20 Dose: Not Given - Objective Vital Signs: Vital Signs Temperature 98.5 F 03/08/17 19:32 Pulse Rate 93 H 03/08/17 19:32 Respiratory Rate 20 03/08/17 19:32 Blood Pressure 110/54 03/08/17 19:32 O2 Sat by Pulse Oximetry (%) 96 03/08/17 09:00 Constitutional: Yes: Well Nourished, Obese Eyes: Yes: Other (Resolving Lt conjunctival hemorrhage) Neck: Yes: Supple Cardiovascular: Yes: WNL, Regular Rate and Rhythm Respiratory: Yes: Wheezes Gastrointestinal: Yes: WNL, Normal Bowel Sounds, Soft, Abdomen, Obese Labs: CBC, BMP 03/08/17 06:10 03/08/17 06:10 INR, PTT INR 3.39 (0.82-1.09) H 03/08/17 06:10 Problem List - Problems (1) Anemia Assessment/Plan: Monitor H/H Heme consult noted Will hold coumadin today IV Fe Will need to investigate AC w/ her PMD Code(s): D64.9 - ANEMIA, UNSPECIFIED (2) COPD exacerbation Assessment/Plan: Pt still requiring IV steroids wc are being tapered Cont po levaquin Cont nebulizers Cont symbicort Code(s): J44.1 - CHRONIC OBSTRUCTIVE PULMONARY DISEASE W (ACUTE) EXACERBATION (3) Hypertension Assessment/Plan: Bp stable Cont procardia/diovan Code(s): I10 - ESSENTIAL (PRIMARY) HYPERTENSION (4) Chronic diastolic (congestive) heart failure Code(s): I50.32 - CHRONIC DIASTOLIC (CONGESTIVE) HEART FAILURE (5) Coronary artery disease Code(s): I25.10 - ATHSCL HEART DISEASE OF [place] CORONARY ARTERY W/O ANG PCTRS (6) DVT (deep venous thrombosis) Assessment/Plan: Daily PT/INR and adjust coumadin dose Code(s): I82.409 - ACUTE EMBOLISM AND THOMBOS UNSP DEEP VN UNSP LOWER EXTREMITY (7) History of pulmonary embolism Code(s): Z86.711 - PERSONAL HISTORY OF PULMONARY EMBOLISM (8) Obesity Code(s): E66.9 - OBESITY, UNSPECIFIED
[2017-03-08] MEDS: ROSUVASTATIN CA 10 MG TABLET (FP) PO SCH (22:39)
[2017-03-08] MEDS: MICONAZOLE NITRATE 2% VAGINAL CREAM 45 GM TUBE VG SCH (22:41)
[2017-03-09 06:06] LABS: SERUM IRON 37 ug/dL (27-139)
[2017-03-09] MEDS ORDERED: PT OWN MED DRAWER 7, Y5N ONE ×2 (06:32→11:39)
[2017-03-09] MEDS: NYSTATIN 500,000 UNITS/5 ML SUSPENSION PO SCH ×3 (06:43→21:46)
[2017-03-09] MEDS: FUROSEMIDE 20 MG TABLET (FP) PO SCH ×2 (06:43→13:18)
[2017-03-09] MEDS: LEVOFLOXACIN 500 MG TABLET (FP) PO SCH (06:43)
[2017-03-09] MEDS: INSULIN SLIDING SCALE (NOVOLOG) 1 VIAL SQ SCH ×4 (06:46→21:50)
[2017-03-09] MEDS: ALBUTEROL SO4 2.5/IPRATROPIUM 0.5 INH SOL 3 ML VIAL.NEB. NEB SCH ×4 (06:55→18:18)
[2017-03-09 07:34] LABS: BASOPHIL 0.1 % (0-2.0); EOSINOPHIL 0.5 % (0-4.5); MCH 21.7 pg (25.7-33.7); MCHC 28.6 g/dl (32.0-36.0); MEAN CELL VOLUME 75.9 fl (80-96); MEAN PLT VOLUME 8.8 fl (7.5-11.1); NEUTROPHILS 89.2 % (42.8-82.8); PLATELET COUNT 280 K/MM3 (134-434); RDW 16.1 % (11.6-15.6); WHITE BLOOD COUNT 19.9 K/mm3 (4.0-10.0)
[2017-03-09 07:35] LABS: INR 2.93 (0.82-1.09)
[2017-03-09] MEDS: IRON SUCROSE INJECTION 200 MG in SODIUM CHLORIDE 100 ML IVPB SCH (10:40)
--- NOTE | 2017-03-09 11:05 | PN ---
Progress Note (short form) - Note Progress Note: Breathing feels about the same. Still with chest tightness, cough, and wheezing. Intake & Output 03/06/17 03/07/17 03/08/17 03/09/17 23:59 23:59 23:59 23:59 Intake Total 450 0 Balance 450 0 Weight 292 lb 12.8 oz 293 lb 1 oz 293 lb 1.6 oz 295 lb 14.4 oz Last Vital Signs Temp Pulse Resp BP Pulse Ox 98.6 F 110 H 20 156/75 96 03/09/17 05:50 03/09/17 05:50 03/09/17 05:50 03/09/17 05:50 03/08/17 21:00 Active Medications Albuterol Sulfate (Ventolin 0.083% Nebulizer Soln -) 1 amp NEB Q4H PRN PRN Reason: SHORT OF BREATH/WHEEZING Last Admin: 03/08/17 02:16 Dose: 1 amp Albuterol/Ipratropium (Duoneb -) 1 amp NEB QIDR [facility] Last Admin: 03/09/17 06:55 Dose: 1 amp Aspirin (Asa -) 81 mg PO DAILY [facility] Last Admin: 03/08/17 11:22 Dose: 81 mg Budesonide/Formoterol Fumarate (Symbicort 160/4.5mcg -) 1 puff IH BID [facility] Last Admin: 03/08/17 22:41 Dose: 1 puff Ferrous Sulfate (Feosol -) 325 mg PO DAILY [facility] Last Admin: 03/08/17 11:22 Dose: 325 mg Fluticasone Propionate (Flonase -) 1 spray NS BID [facility] Last Admin: 03/08/17 22:41 Dose: Not Given Furosemide (Lasix -) 20 mg PO BIDLASIX [facility] Last Admin: 03/09/17 06:43 Dose: 20 mg Guaifenesin/Codeine Phosphate (Robitussin Ac -) 5 ml PO QID PRN PRN Reason: COUGH Last Admin: 03/08/17 22:48 Dose: 5 ml Hydrochlorothiazide (Hctz -) 12.5 mg PO DAILY [facility] Last Admin: 03/08/17 11:22 Dose: 12.5 mg Iron Sucrose 200 mg/ Sodium (Chloride) 110 mls @ 110 mls/hr IVPB DAILY [facility] Last Admin: 05/15/17 10:40 Dose: 110 mls/hr Insulin Aspart (Novolog Vial Sliding Scale -) 1 vial SQ ACHS [facility] PRN Reason: Protocol Last Admin: 03/09/17 06:46 Dose: Not Given Levofloxacin (Levaquin -) 500 mg PO DAILY@0600 [facility] Last Admin: 03/09/17 06:43 Dose: 500 mg Meclizine HCl (Antivert -) 12.5 mg PO BID [facility] Last Admin: 03/08/17 22:39 Dose: 12.5 mg Methylprednisolone Sodium Succinate (Solu-Medrol -) 40 mg IVPB Q12H [facility] Last Admin: 03/08/17 23:24 Dose: 40 mg Nifedipine (Procardia Xl -) 30 mg PO DAILY [facility] Last Admin: 03/08/17 11:24 Dose: 30 mg Non-Formulary Medication (Cyclosporine [Restasis]) 1 each OP BID [facility] Non-Formulary Medication (Olopatadine Hcl [Patanase]) 665 mcg NS DAILY [facility] Nystatin (Nystatin Oral Suspension -) 500,000 units PO TID [facility] Last Admin: 03/09/17 06:43 Dose: 500,000 units Pantoprazole Sodium (Protonix -) 40 mg PO DAILY [facility] Last Admin: 03/08/17 11:23 Dose: 40 mg Polyethylene Glycol (Miralax (For Daily Use) -) 17 gm PO DAILY [facility] Last Admin: 03/08/17 11:25 Dose: 17 grams Rosuvastatin Calcium (Crestor -) 10 mg PO HS [facility] Last Admin: 03/08/17 22:39 Dose: 10 mg Senna (Senna -) 1 tab PO BID [facility] Last Admin: 03/08/17 22:39 Dose: 1 tab Sodium Chloride ([place] Nasal [place] -) 2 spray NS TID PRN PRN Reason: NASAL CONGESTION Last Admin: 03/08/17 11:27 Dose: 2 spray Sodium Chloride ([place] Nasal [place] -) 2 spray NS BID [facility] Last Admin: 03/08/17 22:40 Dose: 2 sprays Valsartan (Diovan -) 160 mg PO DAILY [facility] Last Admin: 03/08/17 11:22 Dose: 160 mg Gen: NAD at rest Heart: RRR Lung: distant breath sounds, +wheezes, rhonchi but less Abd: soft, nontender Ext: no edema Laboratory Results - last 24 hr 03/08/17 03/08/17 03/08/17 06:10 06:10 11:35 WBC RBC Hgb Hct MCV MCHC RDW Plt Count MPV Neutrophils % Lymphocytes % Monocytes % Eosinophils % Basophils % INR POC Glucometer 122 Iron 37 Vitamin B12 921 H Serum Folate 10 03/08/17 03/08/17 03/09/17 17:25 22:42 06:00 WBC 19.9 H RBC 3.46 L Hgb 7.5 L Hct 26.3 L MCV 75.9 L MCHC 28.6 L RDW 16.1 H Plt Count 280 MPV 8.8 Neutrophils % 89.2 H Lymphocytes % 5.9 L Monocytes % 4.3 Eosinophils % 0.5 D Basophils % 0.1 INR POC Glucometer 205 150 Iron Vitamin B12 Serum Folate 03/09/17 03/09/17 06:00 06:44 WBC RBC Hgb Hct MCV MCHC RDW Plt Count MPV Neutrophils % Lymphocytes % Monocytes % Eosinophils % Basophils % INR 2.93 H POC Glucometer 158 Iron Vitamin B12 Serum Folate A/P Acute COPD Exacerbation Acute Hypoxic Respiratory Failure LV Diastolic Dysfunction Pulmonary HTN h/o PE - will continue medrol at current dose - inhaled bronchodilators - Increase Symbicort to 2 inhalations BID - O2 as needed - continue anticoagulation with target INR 2-3 - Darcie Waters
[2017-03-09] MEDS: VALSARTAN 160 MG TABLET (UD) PO SCH (11:51)
[2017-03-09] MEDS: MECLIZINE HCL 12.5 MG TABLET PO SCH ×2 (11:51→21:45)
[2017-03-09] MEDS: ASPIRIN 81 MG CHEWABLE TABLETS PO SCH (11:51)
[2017-03-09] MEDS: SENNOSIDES 8.6MG TABLET (FP) PO SCH ×2 (11:52→21:45)
[2017-03-09] MEDS: HYDROCHLOROTHIAZIDE 12.5 MG CAPSULE (FP) PO SCH (11:52)
[2017-03-09] MEDS: POLYETHYLENE GLYCOL 3350 119 GM BTL PO SCH (11:52)
[2017-03-09] MEDS: FLUTICASONE PROP 0.05% 16 GM NASAL SPRAY NS SCH ×2 (11:52→21:45)
[2017-03-09] MEDS: NIFEdipine E.R. 30 MG TABLET (FP) PO SCH (11:52)
[2017-03-09] MEDS: PANTOPRAZOLE 20 MG TABLET (FP) PO SCH (11:52)
[2017-03-09] MEDS: FERROUS SO4 325 MG TABLET (FP) PO SCH (11:52)
[2017-03-09] MEDS: BUDESONIDE/FORMETEROL FUMARATE 160/4.5 mcg INHALER IH SCH ×2 (11:53→21:44)
[2017-03-09] MEDS: SODIUM CHLORIDE NASAL SPRAY 44 ML BOTTLE NS SCH ×2 (11:53→21:44)
[2017-03-09] MEDS: methylPREDNISolone NA SUCC 40 MG/1 ML VIAL IVPB SCH ×2 (11:54→22:56)
--- NOTE | 2017-03-09 21:21 | PN ---
Progress Note, Physician History of Present Illness: No new complaints - Current Medication List Current Medications: Active Medications Albuterol Sulfate (Ventolin 0.083% Nebulizer Soln -) 1 amp NEB Q4H PRN PRN Reason: SHORT OF BREATH/WHEEZING Last Admin: 03/08/17 02:16 Dose: 1 amp Albuterol/Ipratropium (Duoneb -) 1 amp NEB QIDR [facility] Last Admin: 03/09/17 18:18 Dose: 1 amp Aspirin (Asa -) 81 mg PO DAILY [facility] Last Admin: 03/09/17 11:51 Dose: 81 mg Budesonide/Formoterol Fumarate (Symbicort 160/4.5mcg -) 2 puff IH BID [facility] Fluticasone Propionate (Flonase -) 1 spray NS BID [facility] Last Admin: 03/09/17 11:52 Dose: Not Given Furosemide (Lasix -) 20 mg PO BIDLASIX [facility] Last Admin: 03/09/17 13:18 Dose: 20 mg Hydrochlorothiazide (Hctz -) 12.5 mg PO DAILY [facility] Last Admin: 03/09/17 11:52 Dose: 12.5 mg Iron Sucrose 200 mg/ Sodium (Chloride) 110 mls @ 110 mls/hr IVPB DAILY [facility] Last Admin: 03/09/17 10:40 Dose: 110 mls/hr Insulin Aspart (Novolog Vial Sliding Scale -) 1 vial SQ ACHS [facility] PRN Reason: Protocol Last Admin: 03/09/17 17:30 Dose: Not Given Levofloxacin (Levaquin -) 500 mg PO DAILY@0600 [facility] Last Admin: 03/09/17 06:43 Dose: 500 mg Meclizine HCl (Antivert -) 12.5 mg PO BID [facility] Last Admin: 03/09/17 11:51 Dose: 12.5 mg Methylprednisolone Sodium Succinate (Solu-Medrol -) 40 mg IVPB Q12H [facility] Last Admin: 03/09/17 11:54 Dose: 40 mg Nifedipine (Procardia Xl -) 30 mg PO DAILY [facility] Last Admin: 03/09/17 11:52 Dose: 30 mg Non-Formulary Medication (Cyclosporine [Restasis]) 1 each OP BID [facility] Non-Formulary Medication (Olopatadine Hcl [Patanase]) 665 mcg NS DAILY [facility] Nystatin (Nystatin Oral Suspension -) 500,000 units PO TID [facility] Last Admin: 03/09/17 13:18 Dose: 500,000 units Pantoprazole Sodium (Protonix -) 40 mg PO DAILY [facility] Last Admin: 03/09/17 11:52 Dose: 40 mg Polyethylene Glycol (Miralax (For Daily Use) -) 17 gm PO DAILY [facility] Last Admin: 03/09/17 11:52 Dose: 17 grams Rosuvastatin Calcium (Crestor -) 10 mg PO HS [facility] Last Admin: 03/08/17 22:39 Dose: 10 mg Senna (Senna -) 1 tab PO BID [facility] Last Admin: 03/09/17 11:52 Dose: 1 tab Sodium Chloride ([place] -) 2 spray NS TID PRN PRN Reason: NASAL CONGESTION Last Admin: 03/08/17 11:27 Dose: 2 spray Sodium Chloride ([place] -) 2 spray NS BID [facility] Last Admin: 03/09/17 11:53 Dose: 2 sprays Valsartan (Diovan -) 160 mg PO DAILY [facility] Last Admin: 03/09/17 11:51 Dose: 160 mg Warfarin Sodium (Coumadin -) 3 mg PO DAILY@1800 [facility] - Objective Vital Signs: Vital Signs Temperature 98.7 F 03/09/17 18:00 Pulse Rate 90 03/09/17 18:00 Respiratory Rate 20 03/09/17 18:00 Blood Pressure 131/64 03/09/17 18:00 O2 Sat by Pulse Oximetry (%) 93 L 03/09/17 09:00 Constitutional: Yes: Well Nourished Eyes: Yes: WNL, Other (Minimal lt conjunctival hemmorrhage) HENT: Yes: WNL Neck: Yes: Supple Cardiovascular: Yes: WNL, Regular Rate and Rhythm Respiratory: Yes: Diminished, Wheezes Gastrointestinal: Yes: WNL, Normal Bowel Sounds, Soft, Abdomen, Obese Extremities: Yes: Other ((+) multiple ecchymosis on upper extremities) Labs: CBC, BMP 03/09/17 06:00 03/08/17 06:10 INR, PTT INR 2.93 (0.82-1.09) H 03/09/17 06:00 Problem List - Problems (1) Anemia Assessment/Plan: Monitor H/H Probably due to chronic dz Stool heme (+) Will get GI consult Code(s): D64.9 - ANEMIA, UNSPECIFIED (2) COPD exacerbation Assessment/Plan: Cont IV steroids/antibx Pt encouraged to ambulate Cont nebulizers Cont symbicort Code(s): J44.1 - CHRONIC OBSTRUCTIVE PULMONARY DISEASE W (ACUTE) EXACERBATION (3) Hypertension Assessment/Plan: Bp stable Cont procardia/diovan Code(s): I10 - ESSENTIAL (PRIMARY) HYPERTENSION (4) Chronic diastolic (congestive) heart failure Code(s): I50.32 - CHRONIC DIASTOLIC (CONGESTIVE) HEART FAILURE (5) Coronary artery disease Code(s): I25.10 - ATHSCL HEART DISEASE OF [place] CORONARY ARTERY W/O ANG PCTRS (6) DVT (deep venous thrombosis) Assessment/Plan: Daily PT/INR and adjust coumadin dose Code(s): I82.409 - ACUTE EMBOLISM AND THOMBOS UNSP DEEP VN UNSP LOWER EXTREMITY (7) History of pulmonary embolism Code(s): Z86.711 - PERSONAL HISTORY OF PULMONARY EMBOLISM (8) Obesity Code(s): E66.9 - OBESITY, UNSPECIFIED
[2017-03-09] MEDS: WARFARIN NA 3 MG TABLET PO SCH (21:45)
[2017-03-09] MEDS: ROSUVASTATIN CA 10 MG TABLET (FP) PO SCH (21:45)
[2017-03-09] MEDS: guaiFENesin/CODEINE 5 ML UNIT-DOSE CUPS PO PRN (22:55)
[2017-03-10 06:06] LABS: TRANSFERRIN 272 mg/dL (200-370)
[2017-03-10] MEDS: FUROSEMIDE 20 MG TABLET (FP) PO SCH ×2 (06:06→15:47)
[2017-03-10] MEDS: LEVOFLOXACIN 500 MG TABLET (FP) PO SCH (06:06)
[2017-03-10] MEDS: NYSTATIN 500,000 UNITS/5 ML SUSPENSION PO SCH ×3 (06:06→22:51)
[2017-03-10] MEDS: INSULIN SLIDING SCALE (NOVOLOG) 1 VIAL SQ SCH ×4 (06:09→22:58)
[2017-03-10] MEDS: ALBUTEROL SO4 2.5/IPRATROPIUM 0.5 INH SOL 3 ML VIAL.NEB. NEB SCH ×4 (06:20→18:48)
[2017-03-10 07:42] LABS: MCH 21.7 pg (25.7-33.7); MCHC 28.5 g/dl (32.0-36.0); MEAN PLT VOLUME 9.2 fl (7.5-11.1); PLATELET COUNT 337 K/MM3 (134-434); RDW 15.8 % (11.6-15.6); WHITE BLOOD COUNT 24.5 K/mm3 (4.0-10.0)
[2017-03-10 09:00] LABS: INR 2.38 (0.82-1.09); PROTHROMBIN TIME (PATIENT) 26.7 SEC (9.98-11.88)
--- NOTE | 2017-03-10 09:30 | PN ---
Physical Exam: SUBJECTIVE: Patient seen and examined feeling better, states breathing is improving. Less sob while getting out of bed and going to bathroom. feels wheezing is also getting better states chest congestion is getting better. OBJECTIVE: Vital Signs Period Temp Pulse Resp BP Sys/Nielsen Pulse Ox Last 24 Hr 97.8 F-98.7 F 85-101 20-20 102-145/53-76 GENERAL: Awake, alert, and fully oriented, in no acute distress. EARS, NOSE, THROAT: Moist mucous membranes. NECK: no lymphadenopathy, LUNGS: Breath sounds equal, clear to auscultation bilaterally, decrease air entry b/l . wheez decreased since yesterday. HEART: s1s2 normal ABDOMEN: Soft, nontender, not distended, normoactive bowel sounds, UPPER EXTREMITIES: 2+ pulses, warm, well-perfused. No cyanosis. LOWER EXTREMITIES: warm, well-perfused. No peripheral edema. Laboratory Results - last 24 hr 03/08/17 03/09/17 03/09/17 06:10 12:01 17:28 WBC RBC Hgb Hct MCV MCHC RDW Plt Count MPV Neutrophils % Lymphocytes % INR POC Glucometer 121 171 Transferrin 272 03/09/17 03/10/17 03/10/17 21:49 06:00 06:00 WBC 24.5 H RBC 3.48 L Hgb 7.5 L Hct 26.4 L MCV 76.0 L MCHC 28.5 L RDW 15.8 H Plt Count 337 D MPV 9.2 Neutrophils % Y Lymphocytes % Y INR 2.38 H POC Glucometer 235 Transferrin 03/10/17 06:09 WBC RBC Hgb Hct MCV MCHC RDW Plt Count MPV Neutrophils % Lymphocytes % INR POC Glucometer 180 Transferrin Active Medications Generic Name Dose Route Start Last Admin Trade Name Freq PRN Reason Stop Dose Admin Albuterol Sulfate 1 amp 03/02/17 15:42 03/08/17 02:16 Ventolin 0.083% Nebulizer Soln - NEB 1 amp Q4H PRN Administration SHORT OF BREATH/WHEEZING Albuterol/Ipratropium 1 amp 03/03/17 12:00 03/10/17 06:20 Duoneb - NEB 1 amp QIDR [facility] Administration Aspirin 81 mg 03/03/17 10:00 03/09/17 11:51 Asa - PO 81 mg DAILY [facility] Administration Budesonide/Formoterol Fumarate 2 puff 03/09/17 11:07 03/09/17 21:44 Symbicort 160/4.5mcg - IH Not Given BID [facility] Fluticasone Propionate 1 spray 03/02/17 22:00 03/09/17 21:45 Flonase - NS Not Given BID [facility] Furosemide 20 mg 03/03/17 14:00 03/10/17 06:06 Lasix - PO 20 mg BIDLASIX [facility] Administration Guaifenesin/Codeine Phosphate 5 ml 03/09/17 21:59 03/09/17 22:55 Robitussin Ac - PO 5 ml Q6H PRN Administration COUGH Hydrochlorothiazide 12.5 mg 03/03/17 10:00 03/09/17 11:52 Hctz - PO 12.5 mg DAILY [facility] Administration Iron Sucrose 200 mg/ Sodium 110 mls @ 110 mls/hr 03/08/17 14:00 03/09/17 10:40 Chloride IVPB 110 mls/hr DAILY [facility] Administration Insulin Aspart 1 vial 03/04/17 07:00 03/10/17 06:09 Novolog Vial Sliding Scale - SQ Not Given ACHS [facility] Protocol Levofloxacin 500 mg 03/07/17 06:00 03/10/17 06:06 Levaquin - PO 500 mg DAILY@0600 [facility] Administration Meclizine HCl 12.5 mg 03/02/17 22:00 03/09/17 21:45 Antivert - PO 12.5 mg BID [facility] Administration Methylprednisolone Sodium Succinate 40 mg 03/04/17 11:30 03/09/17 22:56 Solu-Medrol - IVPB 40 mg Q12H [facility] Administration Nifedipine 30 mg 03/03/17 10:00 03/09/17 11:52 Procardia Xl - PO 30 mg DAILY [facility] Administration Non-Formulary Medication 1 each 03/02/17 22:00 Cyclosporine [Restasis] OP BID [facility] Non-Formulary Medication 665 mcg 03/03/17 10:00 Olopatadine Hcl [Patanase] NS DAILY [facility] Nystatin 500,000 units 03/02/17 22:00 03/10/17 06:06 Nystatin Oral Suspension - PO 500,000 units TID [facility] Administration Pantoprazole Sodium 40 mg 03/03/17 10:00 03/09/17 11:52 Protonix - PO 40 mg DAILY [facility] Administration Polyethylene Glycol 17 gm 03/04/17 10:00 03/09/17 11:52 Miralax (For Daily Use) - PO 17 grams DAILY [facility] Administration Rosuvastatin Calcium 10 mg 03/02/17 22:00 03/09/17 21:45 Crestor - PO 10 mg HS [facility] Administration Senna 1 tab 03/04/17 23:00 03/09/17 21:45 Senna - PO 1 tab BID [facility] Administration Sodium Chloride 2 spray 03/02/17 15:46 03/08/17 11:27 [place] Nasal [place] - NS 2 spray TID PRN Administration NASAL CONGESTION Sodium Chloride 2 spray 03/04/17 22:00 03/09/17 21:44 [place] Nas[place] - NS 2 sprays BID [facility] Administration Valsartan 160 mg 03/03/17 10:00 03/09/17 11:51 Diovan - PO 160 mg DAILY [facility] Administration Warfarin Sodium 3 mg 03/09/17 20:00 03/09/17 21:45 Coumadin - PO 3 mg DAILY@1800 [facility] Administration ASSESSMENT/PLAN: DYSPNEA: improved copd excerbration, Has advanced copd with oxygen dependent in home CHRONIC HYPOXEMIC RESPIRATORY chronic chf : LV Diastolic Dysfunction epistaxis resolved supra therapeutic inr : improved h/o pulmonary hypertension h/o pulmonary embolism and dvt h/o stroke h/o htn morbid obesity PLAN continue duoneb nebulizer qid twin on symbicort 2 puff bid continue with same dose of steroid humdified oxygen keep spo2 > 90 ocean nasal spray for crusting in nose po levaquin, will stop it tomorrow. monitor inr Visit type - Emergency Visit Emergency Visit: Yes ED Registration Date: 03/02/17 Care time: The patient presented to the Emergency Department on the above date and was hospitalized for further evaluation of their emergent condition. - New Patient This patient is new to me today: No - Critical Care Critical Care patient: No
[2017-03-10] MEDS ORDERED: PT OWN MED DRAWER 7, Y5N ONE ×2 (11:35→21:57)
[2017-03-10] MEDS: BUDESONIDE/FORMETEROL FUMARATE 160/4.5 mcg INHALER IH SCH ×2 (11:47→22:53)
[2017-03-10] MEDS: SODIUM CHLORIDE NASAL SPRAY 44 ML BOTTLE NS PRN (11:47)
[2017-03-10] MEDS: MECLIZINE HCL 12.5 MG TABLET PO SCH ×2 (11:49→22:51)
[2017-03-10] MEDS: ASPIRIN 81 MG CHEWABLE TABLETS PO SCH (11:50)
[2017-03-10] MEDS: FLUTICASONE PROP 0.05% 16 GM NASAL SPRAY NS SCH ×2 (11:50→22:51)
--- NOTE | 2017-03-10 11:50 | PN ---
Teaching Attending Note Name of Resident: Peter Bolivar ATTENDING PHYSICIAN STATEMENT I saw and evaluated the patient. I reviewed the resident's note and discussed the case with the resident. I agree with the resident's findings and plan as documented. SUBJECTIVE: Breathing feels a little better today. Less SOB and PICKERING. Still with some chest tightness, cough, and wheezing. Intake & Output 03/07/17 03/08/17 03/09/17 03/10/17 23:59 23:59 23:59 23:59 Intake Total 500 50 Balance 500 50 Weight 293 lb 1 oz 293 lb 1.6 oz 295 lb 14.4 oz 292 lb 11.2 oz Last Vital Signs Temp Pulse Resp BP Pulse Ox 98.1 F 90 20 129/62 93 L 03/10/17 06:00 03/10/17 06:00 03/10/17 06:00 03/10/17 06:00 03/09/17 09:00 Active Medications Albuterol Sulfate (Ventolin 0.083% Nebulizer Soln -) 1 amp NEB Q4H PRN PRN Reason: SHORT OF BREATH/WHEEZING Last Admin: 03/08/17 02:16 Dose: 1 amp Albuterol/Ipratropium (Duoneb -) 1 amp NEB QIDR [facility] Last Admin: 03/10/17 06:20 Dose: 1 amp Aspirin (Asa -) 81 mg PO DAILY [facility] Last Admin: 03/09/17 11:51 Dose: 81 mg Budesonide/Formoterol Fumarate (Symbicort 160/4.5mcg -) 2 puff IH BID [facility] Last Admin: 03/09/17 21:44 Dose: Not Given Fluticasone Propionate (Flonase -) 1 spray NS BID [facility] Last Admin: 03/09/17 21:45 Dose: Not Given Furosemide (Lasix -) 20 mg PO BIDLASIX [facility] Last Admin: 03/10/17 06:06 Dose: 20 mg Guaifenesin/Codeine Phosphate (Robitussin Ac -) 5 ml PO Q6H PRN PRN Reason: COUGH Last Admin: 03/09/17 22:55 Dose: 5 ml Hydrochlorothiazide (Hctz -) 12.5 mg PO DAILY [facility] Last Admin: 03/09/17 11:52 Dose: 12.5 mg Iron Sucrose 200 mg/ Sodium (Chloride) 110 mls @ 110 mls/hr IVPB DAILY [facility] Last Admin: 03/09/17 10:40 Dose: 110 mls/hr Insulin Aspart (Novolog Vial Sliding Scale -) 1 vial SQ ACHS [facility] PRN Reason: Protocol Last Admin: 03/10/17 06:09 Dose: Not Given Levofloxacin (Levaquin -) 500 mg PO DAILY@0600 [facility] Last Admin: 03/10/17 06:06 Dose: 500 mg Meclizine HCl (Antivert -) 12.5 mg PO BID [facility] Last Admin: 03/09/17 21:45 Dose: 12.5 mg Methylprednisolone Sodium Succinate (Solu-Medrol -) 40 mg IVPB Q12H [facility] Last Admin: 03/09/17 22:56 Dose: 40 mg Nifedipine (Procardia Xl -) 30 mg PO DAILY [facility] Last Admin: 03/09/17 11:52 Dose: 30 mg Non-Formulary Medication (Cyclosporine [Restasis]) 1 each OP BID [facility] Non-Formulary Medication (Olopatadine Hcl [Patanase]) 665 mcg NS DAILY [facility] Nystatin (Nystatin Oral Suspension -) 500,000 units PO TID [facility] Last Admin: 03/10/17 06:06 Dose: 500,000 units Pantoprazole Sodium (Protonix -) 40 mg PO DAILY [facility] Last Admin: 03/09/17 11:52 Dose: 40 mg Polyethylene Glycol (Miralax (For Daily Use) -) 17 gm PO DAILY [facility] Last Admin: 03/09/17 11:52 Dose: 17 grams Rosuvastatin Calcium (Crestor -) 10 mg PO HS [facility] Last Admin: 03/09/17 21:45 Dose: 10 mg Senna (Senna -) 1 tab PO BID [facility] Last Admin: 03/09/17 21:45 Dose: 1 tab Sodium Chloride ([place] Nasal [place] -) 2 spray NS TID PRN PRN Reason: NASAL CONGESTION Last Admin: 03/08/17 11:27 Dose: 2 spray Sodium Chloride ([place] Nasal [place] -) 2 spray NS BID [facility] Last Admin: 03/09/17 21:44 Dose: 2 sprays Valsartan (Diovan -) 160 mg PO DAILY [facility] Last Admin: 03/09/17 11:51 Dose: 160 mg Warfarin Sodium (Coumadin -) 3 mg PO DAILY@1800 [facility] Last Admin: 03/09/17 21:45 Dose: 3 mg Gen: NAD at rest Heart: RRR Lung: distant breath sounds, +wheezes, rhonchi but less Abd: soft, nontender Ext: no edema Laboratory Results - last 24 hr 03/08/17 03/09/17 03/09/17 06:10 12:01 17:28 WBC RBC Hgb Hct MCV MCHC RDW Plt Count MPV Neutrophils % Lymphocytes % INR POC Glucometer 121 171 Transferrin 272 03/09/17 03/10/17 03/10/17 21:49 06:00 06:00 WBC 24.5 H RBC 3.48 L Hgb 7.5 L Hct 26.4 L MCV 76.0 L MCHC 28.5 L RDW 15.8 H Plt Count 337 D MPV 9.2 Neutrophils % Y Lymphocytes % Y INR 2.38 H POC Glucometer 235 Transferrin 03/10/17 06:09 WBC RBC Hgb Hct MCV MCHC RDW Plt Count MPV Neutrophils % Lymphocytes % INR POC Glucometer 180 Transferrin A/P Acute COPD Exacerbation Acute Hypoxic Respiratory Failure LV Diastolic Dysfunction Pulmonary HTN h/o PE - will continue medrol at current dose -> can likely change to Prednisone by tomorrow - inhaled bronchodilators - Symbicort 2 inhalations BID - O2 as needed - continue anticoagulation with target INR 2-3 - Lasix - D/C ABX tomorrow Dr Waters
[2017-03-10] MEDS: SODIUM CHLORIDE NASAL SPRAY 44 ML BOTTLE NS SCH ×2 (11:51→22:53)
[2017-03-10] MEDS: POLYETHYLENE GLYCOL 3350 119 GM BTL PO SCH (11:51)
[2017-03-10] MEDS: HYDROCHLOROTHIAZIDE 12.5 MG CAPSULE (FP) PO SCH (11:51)
[2017-03-10] MEDS: PANTOPRAZOLE 20 MG TABLET (FP) PO SCH (11:52)
[2017-03-10] MEDS: SENNOSIDES 8.6MG TABLET (FP) PO SCH ×2 (11:53→22:50)
[2017-03-10] MEDS: guaiFENesin/CODEINE 5 ML UNIT-DOSE CUPS PO PRN ×2 (11:54→22:51)
[2017-03-10] MEDS: VALSARTAN 160 MG TABLET (UD) PO SCH (11:54)
[2017-03-10] MEDS: methylPREDNISolone NA SUCC 40 MG/1 ML VIAL IVPB SCH ×2 (11:54→22:54)
[2017-03-10] MEDS: IRON SUCROSE INJECTION 200 MG in SODIUM CHLORIDE 100 ML IVPB SCH (12:32)
[2017-03-10 13:23] LABS: PLATELET ESTIMATE ADEQUATE (NORMAL)
[2017-03-10] MEDS: ALBUTEROL SO4 0.083% IH SOL 2.5 MG/3 ML VIAL.NEB. NEB PRN (15:10)
[2017-03-10] MEDS: NIFEdipine E.R. 30 MG TABLET (FP) PO SCH (15:52)
[2017-03-10] MEDS: WARFARIN NA 3 MG TABLET PO SCH ×2 (17:47→20:38)
--- NOTE | 2017-03-10 18:15 | PN ---
Progress Note (short form) - Note Progress Note: Patient seen and examined Remains SOB and dyspneic on minimal exertion Complains of numerous ecchymoses on trunk and extremities Last Vital Signs Temp Pulse Resp BP Pulse Ox 98.9 F 99 H 20 117/63 98 03/10/17 14:56 03/10/17 14:56 03/10/17 14:56 03/10/17 14:56 03/10/17 09:00 Decrease vision left eye No thrush Diminished breath sounds bilaterally Cor -RSR Abd- obese Numerous extermity and truncal ecchymoses CBC, BMP 03/10/17 06:00 03/08/17 06:10 Current Medications Generic Name Dose Route Start Last Admin Trade Name Freq PRN Reason Stop Dose Admin Albuterol Sulfate 1 amp 03/02/17 15:42 03/10/17 15:10 Ventolin 0.083% Nebulizer Soln - NEB 1 amp Q4H PRN Administration SHORT OF BREATH/WHEEZING Albuterol/Ipratropium 1 amp 03/03/17 12:00 03/10/17 11:45 Duoneb - NEB 1 amp QIDR [facility] Administration Aspirin 81 mg 03/03/17 10:00 03/10/17 11:50 Asa - PO 81 mg DAILY [facility] Administration Budesonide/Formoterol Fumarate 2 puff 03/09/17 11:07 03/10/17 11:47 Symbicort 160/4.5mcg - IH 2 inh BID [facility] Administration Fluticasone Propionate 1 spray 03/02/17 22:00 03/10/17 11:50 Flonase - NS Not Given BID [facility] Furosemide 20 mg 03/03/17 14:00 03/10/17 15:47 Lasix - PO 20 mg BIDLASIX [facility] Administration Guaifenesin/Codeine Phosphate 5 ml 03/09/17 21:59 03/10/17 11:54 Robitussin Ac - PO 5 ml Q6H PRN Administration COUGH Hydrochlorothiazide 12.5 mg 03/03/17 10:00 03/10/17 11:51 Hctz - PO 12.5 mg DAILY [facility] Administration Iron Sucrose 200 mg/ Sodium 110 mls @ 110 mls/hr 03/08/17 14:00 03/10/17 12:32 Chloride IVPB 110 mls/hr DAILY [facility] Administration Insulin Aspart 1 vial 03/04/17 07:00 03/10/17 17:42 Novolog Vial Sliding Scale - SQ 2 units ACHS [facility] Administration Protocol Levofloxacin 500 mg 03/07/17 06:00 03/10/17 06:06 Levaquin - PO 500 mg DAILY@0600 [facility] Administration Meclizine HCl 12.5 mg 03/02/17 22:00 03/10/17 11:49 Antivert - PO 12.5 mg BID [facility] Administration Methylprednisolone Sodium Succinate 40 mg 03/04/17 11:30 03/10/17 11:54 Solu-Medrol - IVPB 40 mg Q12H [facility] Administration Nifedipine 30 mg 03/03/17 10:00 03/10/17 15:52 Procardia Xl - PO Not Given DAILY [facility] Non-Formulary Medication 1 each 03/02/17 22:00 Cyclosporine [Restasis] OP BID [facility] Non-Formulary Medication 665 mcg 03/03/17 10:00 Olopatadine Hcl [Patanase] NS DAILY [facility] Nystatin 500,000 units 03/02/17 22:00 03/10/17 15:51 Nystatin Oral Suspension - PO 500,000 units TID [facility] Administration Pantoprazole Sodium 40 mg 03/03/17 10:00 03/10/17 11:52 Protonix - PO 40 mg DAILY [facility] Administration Polyethylene Glycol 17 gm 03/04/17 10:00 03/10/17 11:51 Miralax (For Daily Use) - PO 17 grams DAILY [facility] Administration Rosuvastatin Calcium 10 mg 03/02/17 22:00 03/09/17 21:45 Crestor - PO 10 mg HS [facility] Administration Senna 1 tab 03/04/17 23:00 03/10/17 11:53 Senna - PO 1 tab BID [facility] Administration Sodium Chloride 2 spray 03/02/17 15:46 03/10/17 11:47 [place] Te[place] Pos Nasal Teec Nos Pos - NS 2 spray TID PRN Administration NASAL CONGESTION Sodium Chloride 2 spray 03/04/17 22:00 03/10/17 11:51 [place] Te[place] Pos Nasal Te[place] Pos - NS 2 sprays BID SAIMA Administration Valsartan 160 mg 03/03/17 10:00 03/10/17 11:54 Diovan - PO 160 mg DAILY SAIMA Administration Warfarin Sodium 3 mg 03/09/17 20:00 03/10/17 17:47 Coumadin - PO 3 mg DAILY@1800 SAIMA Administration Impression: Exacerbation of COPD Anemia- multifactorial including blood loss, chronic disease, renal insufficiency Receiving IV Venofer Ecchymoses- likely related to steroids, coumadin, ASA therapy Past hx of P.E. 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 In view of hemoccult positive stool , when feasible and when medically fit consider GI assessment. Continue ongoing therpay for COPD
--- NOTE | 2017-03-10 20:46 | PN ---
Progress Note, Physician History of Present Illness: No new complaints - Current Medication List Current Medications: Active Medications Albuterol Sulfate (Ventolin 0.083% Nebulizer Soln -) 1 amp NEB Q4H PRN PRN Reason: SHORT OF BREATH/WHEEZING Last Admin: 03/10/17 15:10 Dose: 1 amp Albuterol/Ipratropium (Duoneb -) 1 amp NEB QIDR [facility] Last Admin: 03/10/17 18:48 Dose: 1 amp Aspirin (Asa -) 81 mg PO DAILY [facility] Last Admin: 03/10/17 11:50 Dose: 81 mg Budesonide/Formoterol Fumarate (Symbicort 160/4.5mcg -) 2 puff IH BID [facility] Last Admin: 03/10/17 11:47 Dose: 2 inh Fluticasone Propionate (Flonase -) 1 spray NS BID [facility] Last Admin: 03/10/17 11:50 Dose: Not Given Furosemide (Lasix -) 20 mg PO BIDLASIX [facility] Last Admin: 03/10/17 15:47 Dose: 20 mg Guaifenesin/Codeine Phosphate (Robitussin Ac -) 5 ml PO Q6H PRN PRN Reason: COUGH Last Admin: 03/10/17 11:54 Dose: 5 ml Hydrochlorothiazide (Hctz -) 12.5 mg PO DAILY [facility] Last Admin: 03/10/17 11:51 Dose: 12.5 mg Iron Sucrose 200 mg/ Sodium (Chloride) 110 mls @ 110 mls/hr IVPB DAILY [facility] Last Admin: 03/10/17 12:32 Dose: 110 mls/hr Insulin Aspart (Novolog Vial Sliding Scale -) 1 vial SQ ACHS [facility] PRN Reason: Protocol Last Admin: 03/10/17 17:42 Dose: 2 units Levofloxacin (Levaquin -) 500 mg PO DAILY@0600 [facility] Last Admin: 03/10/17 06:06 Dose: 500 mg Meclizine HCl (Antivert -) 12.5 mg PO BID [facility] Last Admin: 03/10/17 11:49 Dose: 12.5 mg Methylprednisolone Sodium Succinate (Solu-Medrol -) 40 mg IVPB Q12H [facility] Last Admin: 03/10/17 11:54 Dose: 40 mg Nifedipine (Procardia Xl -) 30 mg PO DAILY [facility] Last Admin: 03/10/17 15:52 Dose: Not Given Non-Formulary Medication (Cyclosporine [Restasis]) 1 each OP BID [facility] Non-Formulary Medication (Olopatadine Hcl [Patanase]) 665 mcg NS DAILY [facility] Nystatin (Nystatin Oral Suspension -) 500,000 units PO TID [facility] Last Admin: 03/10/17 15:51 Dose: 500,000 units Pantoprazole Sodium (Protonix -) 40 mg PO DAILY [facility] Last Admin: 03/10/17 11:52 Dose: 40 mg Polyethylene Glycol (Miralax (For Daily Use) -) 17 gm PO DAILY [facility] Last Admin: 03/10/17 11:51 Dose: 17 grams Rosuvastatin Calcium (Crestor -) 10 mg PO HS [facility] Last Admin: 03/09/17 21:45 Dose: 10 mg Senna (Senna -) 1 tab PO BID [facility] Last Admin: 03/10/17 11:53 Dose: 1 tab Sodium Chloride ([place]al [place] -) 2 spray NS TID PRN PRN Reason: NASAL CONGESTION Last Admin: 03/10/17 11:47 Dose: 2 spray Sodium Chloride ([place] -) 2 spray NS BID [facility] Last Admin: 03/10/17 11:51 Dose: 2 sprays Valsartan (Diovan -) 160 mg PO DAILY [facility] Last Admin: 03/10/17 11:54 Dose: 160 mg Warfarin Sodium (Coumadin -) 3 mg PO DAILY@1800 [facility] Last Admin: 03/10/17 20:38 Dose: Not Given - Objective Vital Signs: Vital Signs Temperature 98.8 F 03/10/17 18:00 Pulse Rate 98 H 03/10/17 18:00 Respiratory Rate 20 03/10/17 18:00 Blood Pressure 116/54 03/10/17 18:00 O2 Sat by Pulse Oximetry (%) 98 03/10/17 09:00 Constitutional: Yes: Well Nourished Eyes: Yes: WNL Neck: Yes: Supple Cardiovascular: Yes: WNL, Regular Rate and Rhythm Respiratory: Yes: Wheezes Gastrointestinal: Yes: WNL, Normal Bowel Sounds, Soft, Abdomen, Obese Labs: CBC, BMP 03/10/17 06:00 03/08/17 06:10 INR, PTT INR 2.38 (0.82-1.09) H 03/10/17 06:00 Problem List - Problems (1) Anemia Assessment/Plan: Pt getting IV Fe+ Long d/c w/ pt about need for neuro consult to determine ling term AC Monitor H/H Probably due to chronic dz Stool heme (+) GI consult Code(s): D64.9 - ANEMIA, UNSPECIFIED (2) COPD exacerbation Assessment/Plan: Pt still requiring IV solumedrol DC antibx in am Pt encouraged to ambulate Cont nebulizers Cont symbicort PT eval As per pulmonary Possible dc planning for am Code(s): J44.1 - CHRONIC OBSTRUCTIVE PULMONARY DISEASE W (ACUTE) EXACERBATION (3) Hypertension Assessment/Plan: Bp stable Cont procardia/diovan However procardia was held today for slight hypotension Code(s): I10 - ESSENTIAL (PRIMARY) HYPERTENSION (4) Chronic diastolic (congestive) heart failure Code(s): I50.32 - CHRONIC DIASTOLIC (CONGESTIVE) HEART FAILURE (5) Coronary artery disease Code(s): I25.10 - ATHSCL HEART DISEASE OF [place] CORONARY ARTERY W/O ANG PCTRS (6) DVT (deep venous thrombosis) Code(s): I82.409 - ACUTE EMBOLISM AND THOMBOS UNSP DEEP VN UNSP LOWER EXTREMITY (7) History of pulmonary embolism Code(s): Z86.711 - PERSONAL HISTORY OF PULMONARY EMBOLISM (8) Obesity Code(s): E66.9 - OBESITY, UNSPECIFIED
--- NOTE | 2017-03-10 21:13 | CON.GI ---
Consult Consult Specialty:: GI Referred by:: Dr Whitolck Reason for Consultation:: Anemia - History of Present Illness Chief Complaint: Chest pain and SOB History of Present Illness: 66 F with h/o CHF, COPD, h/o PE, CVA on AC, admitted with CP and dyspnea. I am called to evaluate anemia. She has a Cr of 1.5 and GFR in the 30s. There is no report of ford bleeding. She is on AC. 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 Cardio/Vascular: Yes: CHF (chronic diastolic), HTN, Hyperlipdemia Pulmonary: Yes: COPD, O2 Dependent, Pulmonary Embolus, Other (pulmonary HTN) - Alcohol/Substance Use Hx Alcohol Use: No - Smoking History Smoking history: Former smoker Have you smoked in the past 12 months: No Aproximately how many cigarettes per day: 0 If you are a former smoker, when did you quit?: 1998 - Social History Usual Living Arrangement: Alone History of Recent Travel: No Home Medications - Allergies Allergies/Adverse Reactions: Allergies Allergy/AdvReac Type Severity Reaction Status Date / Time No Known Allergies Allergy Verified 03/02/17 10:40 - Home Medications Home Medications: Ambulatory Orders Mometasone Furoate [Nasonex] 1 - 2 inh NS PRN 01/21/14 Olmesartan/Hydrochlorothiazide [Benicar Hct 20-12.5 mg Tablet] 1 each PO DAILY 01/21/14 Promethazine/Phenyleph/Codeine [Promethazine Vc-Codeine Syrup] 120 ml PO PRN Aspirin [ASA -] 81 mg PO DAILY #30 tab.chew 08/03/14 Cholecalciferol (Vitamin D3) [Vitamin D3] 2,000 unit PO DAILY #30 capsule Docusate Sodium [Colace -] 200 mg PO PRN #30 capsule 08/03/14 Miconazole Nitrate [Miconazole Nitrate -] 1 applic TP PRN #7 tube 08/03/14 Clobetasol Propionate/Emoll [Olux-E 0.05% Foam] 100 gm TP PRN 11/20/15 Acetaminophen [Tylenol] 650 mg PO TID PRN 11/23/15 Colchicine [Colcrys] 0.6 mg PO DAILY PRN 11/23/15 Levalbuterol Tartrate [Xopenex Hfa] 15 gm IH BID 11/23/15 Nystatin Oral Suspension - [Nystatin Oral Susp 984166 Units/5 ML -] 5 ml PO BID 11/23/15 Olopatadine HCl [Patanase] 665 mcg NS DAILY 11/23/15 Albuterol 0.083% Nebulizer [place] [Ventolin 0.083% Nebulizer Soln -] 1 neb NEB QID PRN #7 vial 11/26/15 Budesonide/Formeterol Fumarate [SYMBICORT 160/4.5mcg -] 1 inh PO BID #7 inhaler 11/26/15 Cyclosporine [Restasis] 1 each OP BID #30 droperette 11/26/15 Ferrous Sulfate [Feosol] 325 mg PO TID #30 ud 11/26/15 Furosemide [Lasix -] 20 mg PO BID #60 tablet 11/26/15 Guaifenesin AC [Robitussin AC -] 5 ml PO Q6H PRN #30 liquid 11/26/15 Meclizine HCl [Antivert -] 12.5 mg PO BID #30 tablet 11/26/15 Nifedipine ER [Procardia XL -] 30 mg PO DAILY #30 tab.er.24 11/26/15 Pantoprazole Sodium [Protonix -] 40 mg PO DAILY #30 tablet.ec 11/26/15 Prednisone [Deltasone -] 25 mg PO BID #30 tablet 11/26/15 Rosuvastatin Calcium [Crestor] 10 mg PO HS #30 tablet 11/26/15 Tiotropium [place] [Spiriva] 1 inh PO DAILY #7 inh 11/26/15 Warfarin Na [Coumadin -] 4 mg PO MoTuThFrSa@1800 #30 tablet 11/26/15 Physical Exam-GI Vital Signs: Vital Signs Temperature 98.8 F 03/10/17 18:00 Pulse Rate 98 H 03/10/17 18:00 Respiratory Rate 20 03/10/17 18:00 Blood Pressure 116/54 03/10/17 18:00 O2 Sat by Pulse Oximetry (%) 98 03/10/17 09:00 Constitutional: Yes: Obese HENT: Yes: Atraumatic Cardiovascular: Yes: Regular Rate and Rhythm, Tachycardia Respiratory: Yes: Regular, On Nasal O2 Gastrointestinal Inspection: Yes: Other (obese abdomen) ...Auscultate: Yes: Normoactive Bowel Sounds ...Palpate: Yes: Soft. No: Tenderness Labs: CBC, BMP 03/10/17 06:00 03/08/17 06:10 INR, PTT INR 2.38 (0.82-1.09) H 03/10/17 06:00 Assessment/Plan Called to evaluate anemia. Patient had baseline Hgb of 9 prior to this admission. She has been 7.5 for a few days and there is no active bleeding. She is guaiac (+) but relates a nosebleed that lasted for 2 hours the other day. She denies rectal bleeding otherwise and is a poor candidate for procedures due to her weight and cardiorespiratory status. As Hgb currently stable, would refrain from over-transfusing this patient. Protonix, agree with diet. Please call should overt bleeding occur. Thank you
[2017-03-10] MEDS ORDERED: INSULIN (NOVOLOG) ASPART 100 UNITS/ML 10ML VIAL ONE (21:56)
[2017-03-10] MEDS: ROSUVASTATIN CA 10 MG TABLET (FP) PO SCH (22:51)
[2017-03-11 00:11] LABS: A/G RATIO 1.2 (0.7-1.7); ALBUMIN 3.3 g/dL (2.9-4.4); GLOBULIN, TOTAL 2.7 g/dL (2.2-3.9); M-SPIKE Not Observed g/dL (Not Observed)
[2017-03-11] MEDS ORDERED: PT OWN MED DRAWER 7, Y5N ONE ×3 (05:52→22:09)
[2017-03-11] MEDS: ALBUTEROL SO4 2.5/IPRATROPIUM 0.5 INH SOL 3 ML VIAL.NEB. NEB SCH ×4 (06:10→18:24)
[2017-03-11] MEDS: INSULIN SLIDING SCALE (NOVOLOG) 1 VIAL SQ SCH ×4 (06:17→23:11)
[2017-03-11] MEDS: LEVOFLOXACIN 500 MG TABLET (FP) PO SCH (06:18)
[2017-03-11] MEDS: FUROSEMIDE 20 MG TABLET (FP) PO SCH ×2 (06:18→13:22)
[2017-03-11] MEDS: NYSTATIN 500,000 UNITS/5 ML SUSPENSION PO SCH ×3 (06:18→23:09)
[2017-03-11 07:42] LABS: MCH 21.7 pg (25.7-33.7); MCHC 28.7 g/dl (32.0-36.0); MEAN CELL VOLUME 75.7 fl (80-96); MEAN PLT VOLUME 8.5 fl (7.5-11.1); PLATELET COUNT 301 K/MM3 (134-434); WHITE BLOOD COUNT 23.8 K/mm3 (4.0-10.0)
[2017-03-11 08:18] LABS: INR 2.53 (0.82-1.09); PROTHROMBIN TIME (PATIENT) 28.4 SEC (9.98-11.88)
--- NOTE | 2017-03-11 09:10 | PN ---
Physical Exam: SUBJECTIVE: Patient seen and examined feels better chest congestion has decreased sob has decreased cough has improved afebrile, denies chills denies chest pain OBJECTIVE: Vital Signs Period Temp Pulse Resp BP Sys/Nielsen Pulse Ox Last 24 Hr 98.5 F-98.9 F 73-99 20-20 113-142/52-63 98 GENERAL: Awake, alert, and fully oriented, in no acute distress. EARS, NOSE, THROAT: Moist mucous membranes. NECK: no lymphadenopathy, LUNGS: Breath sounds equal, clear to auscultation bilaterally,b/l air entry improved . mild wheez b/l on end of expiration HEART: s1s2 normal ABDOMEN: Soft, nontender, not distended, normoactive bowel sounds, UPPER EXTREMITIES: 2+ pulses, warm, well-perfused. No cyanosis. LOWER EXTREMITIES: warm, well-perfused. No peripheral edema. Laboratory Results - last 24 hr 03/08/17 03/10/17 03/10/17 06:10 06:00 12:35 WBC RBC Hgb Hct MCV MCHC RDW Plt Count MPV Neutrophils % 76.0 Lymphocytes % 15.0 D Monocytes % 7.0 Myelocytes 2 D Nucleated RBCs 2 H Differential Comment Manual diff done Platelet Estimate Adequate INR POC Glucometer 121 Prot Electrophoresis Serum Total Protein 6.0 Albumin 3.3 Globulin 2.7 Albumin/Globulin Ratio 1.2 Emzko-3-Hlsijffuz 0.2 Omsdp-6-Abalunceh 0.8 Beta Globulins 1.1 Gamma Globulins 0.6 ESDRAS M-Wolf Not observed Free [place] LC, Quant 13.98 Free Lambda LC, Quant 13.06 Free [place]/Lambda Ratio 1.07 03/10/17 03/10/17 03/11/17 17:40 22:58 06:00 WBC 23.8 H RBC 3.47 L Hgb 7.5 L Hct 26.2 L MCV 75.7 L MCHC 28.7 L RDW 16.0 H Plt Count 301 MPV 8.5 Neutrophils % Y Lymphocytes % Y Monocytes % Myelocytes Nucleated RBCs Differential Comment Platelet Estimate INR POC Glucometer 203 225 Prot Electrophoresis Serum Total Protein Albumin Globulin Albumin/Globulin Ratio Gjdkr-1-Ahjlxoaoe Ixtmr-6-Iazfbtize Beta Globulins Gamma Globulins ESDRAS M-Wolf Free [place] LC, Quant Free Lambda LC, Quant Free [place]/Lambda Ratio 03/11/17 03/11/17 06:00 06:17 WBC RBC Hgb Hct MCV MCHC RDW Plt Count MPV Neutrophils % Lymphocytes % Monocytes % Myelocytes Nucleated RBCs Differential Comment Platelet Estimate INR 2.53 H POC Glucometer 151 Prot Electrophoresis Serum Total Protein Albumin Globulin Albumin/Globulin Ratio Ooyfz-3-Pihvzbkxw Zakml-8-Cyxyppanq Beta Globulins Gamma Globulins ESDRAS M-Wolf Free [place] LC, Quant Free Lambda LC, Quant Free [place]/Lambda Ratio Active Medications Generic Name Dose Route Start Last Admin Trade Name Freq PRN Reason Stop Dose Admin Albuterol Sulfate 1 amp 03/02/17 15:42 03/10/17 15:10 Ventolin 0.083% Nebulizer Soln - NEB 1 amp Q4H PRN Administration SHORT OF BREATH/WHEEZING Albuterol/Ipratropium 1 amp 03/03/17 12:00 03/11/17 06:10 Duoneb - NEB 1 amp QIDR [facility] Administration Aspirin 81 mg 03/03/17 10:00 03/10/17 11:50 Asa - PO 81 mg DAILY [facility] Administration Budesonide/Formoterol Fumarate 2 puff 03/09/17 11:07 03/10/17 22:53 Symbicort 160/4.5mcg - IH 2 inh BID [facility] Administration Fluticasone Propionate 1 spray 03/02/17 22:00 03/10/17 22:51 Flonase - NS Not Given BID [facility] Furosemide 20 mg 03/03/17 14:00 03/11/17 06:18 Lasix - PO 20 mg BIDLASIX [facility] Administration Guaifenesin/Codeine Phosphate 5 ml 03/09/17 21:59 03/10/17 22:51 Robitussin Ac - PO 5 ml Q6H PRN Administration COUGH Hydrochlorothiazide 12.5 mg 03/03/17 10:00 03/10/17 11:51 Hctz - PO 12.5 mg DAILY [facility] Administration Iron Sucrose 200 mg/ Sodium 110 mls @ 110 mls/hr 03/08/17 14:00 03/10/17 12:32 Chloride IVPB 110 mls/hr DAILY [facility] Administration Insulin Aspart 1 vial 03/04/17 07:00 03/11/17 06:17 Novolog Vial Sliding Scale - SQ Not Given ACHS [facility] Protocol Meclizine HCl 12.5 mg 03/02/17 22:00 03/10/17 22:51 Antivert - PO 12.5 mg BID [facility] Administration Nifedipine 30 mg 03/03/17 10:00 03/10/17 15:52 Procardia Xl - PO Not Given DAILY [facility] Non-Formulary Medication 1 each 03/02/17 22:00 Cyclosporine [Restasis] OP BID [facility] Non-Formulary Medication 665 mcg 03/03/17 10:00 Olopatadine Hcl [Patanase] NS DAILY [facility] Nystatin 500,000 units 03/02/17 22:00 03/11/17 06:18 Nystatin Oral Suspension - PO 500,000 units TID [facility] Administration Pantoprazole Sodium 40 mg 03/03/17 10:00 03/10/17 11:52 Protonix - PO 40 mg DAILY [facility] Administration Polyethylene Glycol 17 gm 03/04/17 10:00 03/10/17 11:51 Miralax (For Daily Use) - PO 17 grams DAILY [facility] Administration Prednisone 40 mg 03/11/17 10:00 Deltasone - PO DAILY [facility] Rosuvastatin Calcium 10 mg 03/02/17 22:00 03/10/17 22:51 Crestor - PO 10 mg HS [facility] Administration Senna 1 tab 03/04/17 23:00 03/10/17 22:50 Senna - PO 1 tab BID [facility] Administration Sodium Chloride 2 spray 03/02/17 15:46 03/10/17 11:47 [place] Nasal [place] - NS 2 spray TID PRN Administration NASAL CONGESTION Sodium Chloride 2 spray 03/04/17 22:00 03/10/17 22:53 [place] Nasal [place] - NS 2 sprays BID [facility] Administration Valsartan 160 mg 03/03/17 10:00 03/10/17 11:54 Diovan - PO 160 mg DAILY [facility] Administration Warfarin Sodium 3 mg 03/10/17 20:15 03/10/17 20:38 Coumadin - PO Not Given DAILY@1800 [facility] ASSESSMENT/PLAN: DYSPNEA: improved copd excerbration, Has advanced copd with oxygen dependent in home CHRONIC HYPOXEMIC RESPIRATORY chronic chf : LV Diastolic Dysfunction epistaxis resolved supra therapeutic inr : improved h/o pulmonary hypertension h/o pulmonary embolism and dvt h/o stroke h/o htn morbid obesity PLAN continue duoneb nebulizer qid [facility] on symbicort 2 puff bid change to po steroid prednisone 40 humdified oxygen keep spo2 > 90 ocean nasal spray for crusting in nose stop antibiotic monitor inr, keep inr 2-3 Visit type - Emergency Visit Emergency Visit: Yes ED Registration Date: 03/02/17 Care time: The patient presented to the Emergency Department on the above date and was hospitalized for further evaluation of their emergent condition. - New Patient This patient is new to me today: No - Critical Care Critical Care patient: No
[2017-03-11 09:15] LABS: ALBUMIN 3.5 g/dl (3.4-5.0); BILIRUBIN,TOTAL 0.5 mg/dL (0.2-1.0); COCKROFT - GAULT 80.716; CREATININE 1.4 mg/dL (0.55-1.02); TOT PROT 6.1 g/dl (6.4-8.2)
[2017-03-11] MEDS: BUDESONIDE/FORMETEROL FUMARATE 160/4.5 mcg INHALER IH SCH ×2 (11:39→23:11)
[2017-03-11] MEDS: SODIUM CHLORIDE NASAL SPRAY 44 ML BOTTLE NS SCH ×2 (11:39→23:11)
[2017-03-11] MEDS: POLYETHYLENE GLYCOL 3350 119 GM BTL PO SCH (11:39)
[2017-03-11] MEDS: SENNOSIDES 8.6MG TABLET (FP) PO SCH ×2 (11:40→23:09)
[2017-03-11] MEDS: VALSARTAN 160 MG TABLET (UD) PO SCH (11:40)
[2017-03-11] MEDS: NIFEdipine E.R. 30 MG TABLET (FP) PO SCH (11:41)
[2017-03-11] MEDS: PANTOPRAZOLE 20 MG TABLET (FP) PO SCH (11:41)
[2017-03-11] MEDS: HYDROCHLOROTHIAZIDE 12.5 MG CAPSULE (FP) PO SCH (11:41)
[2017-03-11] MEDS: MECLIZINE HCL 12.5 MG TABLET PO SCH ×2 (11:42→23:09)
[2017-03-11] MEDS: FLUTICASONE PROP 0.05% 16 GM NASAL SPRAY NS SCH (11:42)
[2017-03-11] MEDS: IRON SUCROSE INJECTION 200 MG in SODIUM CHLORIDE 100 ML IVPB SCH (11:42)
[2017-03-11] MEDS: predniSONE 20 MG TABLET (UD) PO SCH (11:42)
[2017-03-11] MEDS: ASPIRIN 81 MG CHEWABLE TABLETS PO SCH (11:42)
--- NOTE | 2017-03-11 12:36 | PN ---
Teaching Attending Note Name of Resident: Peter Bolivar ATTENDING PHYSICIAN STATEMENT I saw and evaluated the patient. I reviewed the resident's note and discussed the case with the resident. I agree with the resident's findings and plan as documented. SUBJECTIVE:IMPROVED OBJECTIVE:DISTANT BREATH SOUNDS REVIEWED GI NOTE, NO PROCEDURE INDICATED AT THIS TIME ASSESSMENT AND PLAN: STABILIZING COPD/O2 DEP/M. OBESITY HAVE CHANGED TO ORAL PREDNISONE WILL MONITOR NEEDS PT Danny ROMERO MD
[2017-03-11 16:42] LABS: HYPOCHROMIA 2+; METAMYELOCYTE 1 % (0-2); PLATELET ESTIMATE ADEQUATE (NORMAL); POLYCHROMASIA 1+
[2017-03-11] MEDS: WARFARIN NA 3 MG TABLET PO SCH (17:37)
--- NOTE | 2017-03-11 17:44 | CONSULT ---
Consult - text type - Consultation Consultation Note: NEUROLOGY CONSULTATION is greatly appreciated: This 66 yo RH woman with h/o COPD, obesity, CHF is s/p PE in the distant past. 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 Torres). Has been on coumadin and ASA ever since. Multiple bleeding episodes including nose bleeds and GI bleeds requiring transfusions in the past and this hospitalization as well. Pt c/o diffuse, recurrent echymoses. JOANNE: Cor reg. No bruits. Neg Rashi's. Obese NEURO: MS/Speech: Normal CN II-XII: normal including bi/ monocular visual farmer. Fundi not well-visualized. Motor: No drift or tremor. Normal strength, bulk, tone and reflexes. Toes downgoing. Coord: No FTN dystaxia Sensory: Normal Gait: Slight waddle IMP: Normal neurological exam. No obvious neurological indication for continued anticoagulation ( certainly not dual therapy with ASA. Etiology of optic neuropathy not immediately apparent and, even if ischemic (arterial, not venous), would not necessarily be on an embolic basis. Antiplatelet monotherapy maight suffice. SUGGEST: Long-term ambulatory halter (>36 hrs) to r/o A Fib Echocardiogram for ventricular dyskinesis and valvulopathy. Consult Dr. Torres for review of prior ophtho w/u for etiology of visual disturbance LE venous dopplers to r/o DVT. Thank you very much, Barney Becker MD
--- NOTE | 2017-03-11 21:09 | PN ---
Progress Note, Physician - Current Medication List Current Medications: Active Medications Albuterol/Ipratropium (Duoneb -) 1 amp NEB QIDR [facility] Last Admin: 03/11/17 18:24 Dose: 1 amp Aspirin (Asa -) 81 mg PO DAILY [facility] Last Admin: 03/11/17 11:42 Dose: 81 mg Budesonide/Formoterol Fumarate (Symbicort 160/4.5mcg -) 2 puff IH BID [facility] Last Admin: 03/11/17 11:39 Dose: 2 inh Fluticasone Propionate (Flonase -) 1 spray NS BID [facility] Last Admin: 03/11/17 11:42 Dose: Not Given Furosemide (Lasix -) 20 mg PO BIDLASIX [facility] Last Admin: 03/11/17 13:22 Dose: 20 mg Guaifenesin/Codeine Phosphate (Robitussin Ac -) 5 ml PO Q6H PRN PRN Reason: COUGH Last Admin: 03/10/17 22:51 Dose: 5 ml Hydrochlorothiazide (Hctz -) 12.5 mg PO DAILY [facility] Last Admin: 03/11/17 11:41 Dose: 12.5 mg Iron Sucrose 200 mg/ Sodium (Chloride) 110 mls @ 110 mls/hr IVPB DAILY [facility] Last Admin: 03/11/17 11:42 Dose: 110 mls/hr Insulin Aspart (Novolog Vial Sliding Scale -) 1 vial SQ ACHS [facility] PRN Reason: Protocol Last Admin: 03/11/17 17:37 Dose: 2 units Meclizine HCl (Antivert -) 12.5 mg PO BID [facility] Last Admin: 03/11/17 11:42 Dose: 12.5 mg Nifedipine (Procardia Xl -) 30 mg PO DAILY [facility] Last Admin: 03/11/17 11:41 Dose: 30 mg Non-Formulary Medication (Cyclosporine [Restasis]) 1 each OP BID [facility] Non-Formulary Medication (Olopatadine Hcl [Patanase]) 665 mcg NS DAILY [facility] Nystatin (Nystatin Oral Suspension -) 500,000 units PO TID [facility] Last Admin: 03/11/17 13:22 Dose: 500,000 units Pantoprazole Sodium (Protonix -) 40 mg PO DAILY [facility] Last Admin: 03/11/17 11:41 Dose: 40 mg Polyethylene Glycol (Miralax (For Daily Use) -) 17 gm PO DAILY [facility] Last Admin: 03/11/17 11:39 Dose: 17 grams Prednisone (Deltasone -) 40 mg PO DAILY [facility] Last Admin: 03/11/17 11:42 Dose: 40 mg Rosuvastatin Calcium (Crestor -) 10 mg PO HS [facility] Last Admin: 03/10/17 22:51 Dose: 10 mg Senna (Senna -) 1 tab PO BID [facility] Last Admin: 03/11/17 11:40 Dose: 1 tab Sodium Chloride ([place] Nasal [place] -) 2 spray NS TID PRN PRN Reason: NASAL CONGESTION Last Admin: 03/10/17 11:47 Dose: 2 spray Sodium Chloride ([place] -) 2 spray NS BID [facility] Last Admin: 03/11/17 11:39 Dose: 2 sprays Valsartan (Diovan -) 160 mg PO DAILY [facility] Last Admin: 03/11/17 11:40 Dose: 160 mg Warfarin Sodium (Coumadin -) 3 mg PO DAILY@1800 [facility] Last Admin: 03/11/17 17:37 Dose: 3 mg - Objective Vital Signs: Vital Signs Temperature 98.8 F 03/11/17 17:19 Pulse Rate 92 H 03/11/17 17:19 Respiratory Rate 20 03/11/17 17:19 Blood Pressure 128/63 03/11/17 17:19 O2 Sat by Pulse Oximetry (%) 98 03/11/17 09:00 Constitutional: Yes: Well Nourished Eyes: Yes: WNL HENT: Yes: WNL Neck: Yes: Supple Cardiovascular: Yes: WNL, Regular Rate and Rhythm Respiratory: Yes: WNL, Regular, CTA Bilaterally Gastrointestinal: Yes: WNL, Normal Bowel Sounds, Soft, Abdomen, Obese Labs: CBC, BMP 03/11/17 06:00 03/11/17 06:00 INR, PTT INR 2.53 (0.82-1.09) H 03/11/17 06:00 Problem List - Problems (1) half-way current use of anticoagulant Assessment/Plan: Will need to determine [facility] use As per neuro unclear it retinal vein/artery was embolic Will need holter as outpt and cardio f/u Code(s): Z79.01 - RETAIL GIFT CARD MERCHANDISING (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 OF 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 (2) COPD exacerbation Assessment/Plan: Change to po steroids/antibxs Will cont to monitor Cont inhalers Code(s): J44.1 - CHRONIC OBSTRUCTIVE PULMONARY DISEASE W (ACUTE) EXACERBATION (3) Anemia Assessment/Plan: Pt getting IV Fe+ Monitor H/h Code(s): D64.9 - ANEMIA, UNSPECIFIED (4) Hypertension Assessment/Plan: Bp stable Code(s): I10 - ESSENTIAL (PRIMARY) HYPERTENSION (5) Chronic diastolic (congestive) heart failure Code(s): I50.32 - CHRONIC DIASTOLIC (CONGESTIVE) HEART FAILURE (6) Coronary artery disease Code(s): I25.10 - ATHSCL HEART DISEASE OF [place] CORONARY ARTERY W/O ANG PCTRS (7) DVT (deep venous thrombosis) Code(s): I82.409 - ACUTE EMBOLISM AND THOMBOS UNSP DEEP VN UNSP LOWER EXTREMITY (8) History of pulmonary embolism Code(s): Z86.711 - PERSONAL HISTORY OF PULMONARY EMBOLISM (9) Obesity Code(s): E66.9 - OBESITY, UNSPECIFIED
[2017-03-11] MEDS: ROSUVASTATIN CA 10 MG TABLET (FP) PO SCH (23:08)
[2017-03-11] MEDS: guaiFENesin/CODEINE 5 ML UNIT-DOSE CUPS PO PRN (23:14)
[2017-03-11] MEDS ORDERED: INSULIN (NOVOLOG) ASPART 100 UNITS/ML 10ML VIAL ONE (23:16)
[2017-03-12] MEDS: FLUTICASONE PROP 0.05% 16 GM NASAL SPRAY NS SCH ×3 (00:10→21:43)
[2017-03-12] MEDS: ALBUTEROL SO4 2.5/IPRATROPIUM 0.5 INH SOL 3 ML VIAL.NEB. NEB SCH ×2 (06:10)
[2017-03-12] MEDS: FUROSEMIDE 20 MG TABLET (FP) PO SCH ×2 (06:27→13:56)
[2017-03-12] MEDS: NYSTATIN 500,000 UNITS/5 ML SUSPENSION PO SCH ×3 (06:27→21:45)
[2017-03-12] MEDS: INSULIN SLIDING SCALE (NOVOLOG) 1 VIAL SQ SCH ×4 (06:38→21:45)
[2017-03-12 07:45] LABS: INR 2.45 (0.82-1.09); PROTHROMBIN TIME (PATIENT) 27.5 SEC (9.98-11.88)
--- NOTE | 2017-03-12 09:29 | PN ---
Physical Exam: SUBJECTIVE: Patient seen and examined feels better sob has improved, now able to walk till bathroom without sob. when came ho hospital use to get short of breath while changing position in bed. states cough has decreased significantly afebrile, denies chills, chest pain OBJECTIVE: Vital Signs Period Temp Pulse Resp BP Sys/Nielsen Pulse Ox Last 24 Hr 97.8 F-98.8 F 67-98 20-22 103-155/55-67 96 GENERAL: Awake, alert, and fully oriented, in no acute distress. EARS, NOSE, THROAT: Moist mucous membranes. NECK: no lymphadenopathy, LUNGS: Breath sounds equal, clear to auscultation bilaterally,b/l air entry improved . mild wheez b/l on end of expiration HEART: s1s2 normal ABDOMEN: Soft, nontender, not distended, normoactive bowel sounds, UPPER EXTREMITIES: 2+ pulses, warm, well-perfused. No cyanosis. LOWER EXTREMITIES: warm, well-perfused. No peripheral edema. Laboratory Results - last 24 hr 03/11/17 03/11/17 03/11/17 06:00 12:20 17:33 Neutrophils % 82.0 Lymphocytes % 10.0 D Monocytes % 6.0 Metamyelocytes 1 D Myelocytes 1 D Platelet Estimate Adequate Platelet Comment No clumping noted Polychromasia 1+ Hypochromic-Microcytic 2+ Basophilic Stippling 1+ POC Glucometer 110 222 03/11/17 03/12/17 23:08 06:25 Neutrophils % Lymphocytes % Monocytes % Metamyelocytes Myelocytes Platelet Estimate Platelet Comment Polychromasia Hypochromic-Microcytic Basophilic Stippling POC Glucometer 229 104 Active Medications Generic Name Dose Route Start Last Admin Trade Name Freq PRN Reason Stop Dose Admin Albuterol/Ipratropium 1 amp 03/03/17 12:00 03/12/17 06:10 Duoneb - NEB 1 amp QIDR SAIMA Administration Aspirin 81 mg 03/03/17 10:00 03/11/17 11:42 Asa - PO 81 mg DAILY SAIMA Administration Budesonide/Formoterol Fumarate 2 puff 03/09/17 11:07 03/11/17 23:11 Symbicort 160/4.5mcg - IH 2 inh BID SAIMA Administration Fluticasone Propionate 1 spray 03/02/17 22:00 03/12/17 00:10 Flonase - NS Not Given BID SAIMA Furosemide 20 mg 03/03/17 14:00 03/12/17 06:27 Lasix - PO 20 mg BIDLASIX SAIMA Administration Guaifenesin/Codeine Phosphate 5 ml 03/09/17 21:59 03/11/17 23:14 Robitussin Ac - PO 5 ml Q6H PRN Administration COUGH Hydrochlorothiazide 12.5 mg 03/03/17 10:00 03/11/17 11:41 Hctz - PO 12.5 mg DAILY SAIMA Administration Iron Sucrose 200 mg/ Sodium 110 mls @ 110 mls/hr 03/08/17 14:00 03/11/17 11:42 Chloride IVPB 110 mls/hr DAILY SAIMA Administration Insulin Aspart 1 vial 03/04/17 07:00 03/12/17 06:38 Novolog Vial Sliding Scale - SQ Not Given ACHS [facility] Protocol Meclizine HCl 12.5 mg 03/02/17 22:00 03/11/17 23:09 Antivert - PO 12.5 mg BID [facility]IMA Administration Nifedipine 30 mg 03/03/17 10:00 03/11/17 11:41 Procardia Xl - PO 30 mg DAILY SAIMA Administration Non-Formulary Medication 1 each 03/02/17 22:00 Cyclosporine [Restasis] OP BID SAIMA Non-Formulary Medication 665 mcg 03/03/17 10:00 Olopatadine Hcl [Patanase] NS DAILY [facility]IMA Nystatin 500,000 units 03/02/17 22:00 03/12/17 06:27 Nystatin Oral Suspension - PO 500,000 units TID SAIMA Administration Pantoprazole Sodium 40 mg 03/03/17 10:00 03/11/17 11:41 Protonix - PO 40 mg DAILY [facility] Administration Polyethylene Glycol 17 gm 03/04/17 10:00 03/11/17 11:39 Miralax (For Daily Use) - PO 17 grams DAILY [facility]IMA Administration Prednisone 40 mg 03/11/17 10:00 03/11/17 11:42 Deltasone - PO 40 mg DAILY [facility]IMA Administration Rosuvastatin Calcium 10 mg 03/02/17 22:00 03/11/17 23:08 Crestor - PO 10 mg HS SAIMA Administration Senna 1 tab 03/04/17 23:00 03/11/17 23:09 Senna - PO 1 tab BID [facility]IM[facility] Administration Sodium Chloride 2 spray 03/02/17 15:46 03/10/17 11:47 [place] Nasal [place] - NS 2 spray TID PRN Administration NASAL CONGESTION Sodium Chloride 2 spray 03/04/17 22:00 03/11/17 23:11 [place] - NS 2 sprays BID SAIMA Administration Valsartan 160 mg 03/03/17 10:00 03/11/17 11:40 Diovan - PO 160 mg DAILY SAIMA Administration Warfarin Sodium 3 mg 03/10/17 20:15 03/11/17 17:37 Coumadin - PO 3 mg DAILY@1800 [facility]IMA Administration ASSESSMENT/PLAN: DYSPNEA: improved copd excerbration, Has advanced copd with oxygen dependent in home CHRONIC HYPOXEMIC RESPIRATORY chronic chf : LV Diastolic Dysfunction epistaxis resolved supra therapeutic inr : improved h/o pulmonary hypertension h/o pulmonary embolism and dvt h/o stroke h/o htn morbid obesity PLAN change to tamiko clarkea on symbicort 2 puff bid albuterol prn continue po steroid humdified oxygen keep spo2 > 90 antibiotic stopped yesterday, patient had completed 10 day course of antibiotic. ( levaquin) monitor inr, keep inr 2-3 Visit type - Emergency Visit Emergency Visit: Yes ED Registration Date: 03/02/17 Care time: The patient presented to the Emergency Department on the above date and was hospitalized for further evaluation of their emergent condition. - New Patient This patient is new to me today: No - Critical Care Critical Care patient: No
--- NOTE | 2017-03-12 09:50 | PN ---
Teaching Attending Note Name of Resident: Peter Bolivar ATTENDING PHYSICIAN STATEMENT I saw and evaluated the patient. I reviewed the resident's note and discussed the case with the resident. I agree with the resident's findings and plan as documented. SUBJECTIVE: Breathing feels a little better today. Overall Less SOB and PICKERING. Still with some cough and raspy voice. Intake & Output 03/09/17 03/10/17 03/11/17 03/12/17 23:59 23:59 23:59 23:59 Intake Total 500 50 Balance 500 50 Weight 295 lb 14.4 oz 292 lb 11.2 oz 293 lb 1.6 oz 293 lb 11.2 oz Last Vital Signs Temp Pulse Resp BP Pulse Ox 97.8 F 110 H 22 143/60 94 L 03/12/17 09:25 03/12/17 09:48 03/12/17 09:25 03/12/17 09:25 03/12/17 09:48 Active Medications Albuterol Sulfate (Ventolin 0.083% Nebulizer Soln -) 1 amp NEB Q6H PRN PRN Reason: SHORT OF BREATH/WHEEZING Arformoterol Tartrate ([place] (Restricted To Pulmonology/Resp) -) 1 amp NEB BID [facility] Aspirin (Asa -) 81 mg PO DAILY [facility] Last Admin: 03/11/17 11:42 Dose: 81 mg Budesonide/Formoterol Fumarate (Symbicort 160/4.5mcg -) 2 puff IH BID [facility] Last Admin: 03/11/17 23:11 Dose: 2 inh Fluticasone Propionate (Flonase -) 1 spray NS BID [facility] Last Admin: 03/12/17 00:10 Dose: Not Given Furosemide (Lasix -) 20 mg PO BIDLASIX [facility] Last Admin: 03/12/17 06:27 Dose: 20 mg Guaifenesin/Codeine Phosphate (Robitussin Ac -) 5 ml PO Q6H PRN PRN Reason: COUGH Last Admin: 03/11/17 23:14 Dose: 5 ml Hydrochlorothiazide (Hctz -) 12.5 mg PO DAILY [facility] Last Admin: 03/11/17 11:41 Dose: 12.5 mg Iron Sucrose 200 mg/ Sodium (Chloride) 110 mls @ 110 mls/hr IVPB DAILY [facility] Last Admin: 03/11/17 11:42 Dose: 110 mls/hr Insulin Aspart (Novolog Vial Sliding Scale -) 1 vial SQ ACHS [facility] PRN Reason: Protocol Last Admin: 03/12/17 06:38 Dose: Not Given Meclizine HCl (Antivert -) 12.5 mg PO BID [facility] Last Admin: 03/11/17 23:09 Dose: 12.5 mg Nifedipine (Procardia Xl -) 30 mg PO DAILY [facility] Last Admin: 03/11/17 11:41 Dose: 30 mg Non-Formulary Medication (Cyclosporine [Restasis]) 1 each OP BID [facility] Non-Formulary Medication (Olopatadine Hcl [Patanase]) 665 mcg NS DAILY [facility] Nystatin (Nystatin Oral Suspension -) 500,000 units PO TID [facility] Last Admin: 03/12/17 06:27 Dose: 500,000 units Pantoprazole Sodium (Protonix -) 40 mg PO DAILY [facility] Last Admin: 03/11/17 11:41 Dose: 40 mg Polyethylene Glycol (Miralax (For Daily Use) -) 17 gm PO DAILY [facility] Last Admin: 03/11/17 11:39 Dose: 17 grams Prednisone (Deltasone -) 40 mg PO DAILY [facility] Last Admin: 03/11/17 11:42 Dose: 40 mg Rosuvastatin Calcium (Crestor -) 10 mg PO HS [facility] Last Admin: 03/11/17 23:08 Dose: 10 mg Senna (Senna -) 1 tab PO BID [facility] Last Admin: 03/11/17 23:09 Dose: 1 tab Sodium Chloride ([place] Nasal [place] -) 2 spray NS TID PRN PRN Reason: NASAL CONGESTION Last Admin: 03/10/17 11:47 Dose: 2 spray Sodium Chloride ([place] -) 2 spray NS BID [facility] Last Admin: 03/11/17 23:11 Dose: 2 sprays Tiotropium [place] (Spiriva -) 1 puff IH DAILY [facility] Valsartan (Diovan -) 160 mg PO DAILY [facility] Last Admin: 03/11/17 11:40 Dose: 160 mg Warfarin Sodium (Coumadin -) 3 mg PO DAILY@1800 [facility] Last Admin: 03/11/17 17:37 Dose: 3 mg Gen: NAD at rest Heart: RRR Lung: distant breath sounds, No wheezes, rhonchi but less, (+) Transmitted upper airway sounds Abd: soft, nontender Ext: no edema Laboratory Results - last 24 hr 03/11/17 03/11/17 03/11/17 06:00 12:20 17:33 Neutrophils % 82.0 Lymphocytes % 10.0 D Monocytes % 6.0 Metamyelocytes 1 D Myelocytes 1 D Platelet Estimate Adequate Platelet Comment No clumping noted Polychromasia 1+ Hypochromic-Microcytic 2+ Basophilic Stippling 1+ POC Glucometer 110 222 03/11/17 03/12/17 23:08 06:25 Neutrophils % Lymphocytes % Monocytes % Metamyelocytes Myelocytes Platelet Estimate Platelet Comment Polychromasia Hypochromic-Microcytic Basophilic Stippling POC Glucometer 229 104 A/P Acute COPD Exacerbation Acute Hypoxic Respiratory Failure LV Diastolic Dysfunction Pulmonary HTN h/o PE - Prednisone - Spiriva - Symbicort 2 inhalations BID - O2 as needed - continue anticoagulation with target INR 2-3 - Lasix - Monitor off ABX - (?) Short term rehab Dr Waters
[2017-03-12] MEDS ORDERED: ARFORMOTEROL TARTRATE 15 MCG/2 ML VIAL NEB SCH (10:00)
--- NOTE | 2017-03-12 10:28 | PN ---
Progress Note, Physician History of Present Illness: seen and examined today in nad. no overnight events. feeling better overall. pt concerned about bruising and superficial hemorrhage in eye. - Current Medication List Current Medications: Active Medications Aclidinium [place] (Tudorza -) 1 puff IH BID [facility]IMA Albuterol Sulfate (Ventolin 0.083% Nebulizer Soln -) 1 amp NEB Q6H PRN PRN Reason: SHORT OF BREATH/WHEEZING Arformoterol Tartrate (Brovana (Restricted To Pulmonology/Resp) -) 1 amp NEB BID [facility] Budesonide/Formoterol Fumarate (Symbicort 160/4.5mcg -) 2 puff IH BID [facility] Last Admin: 03/11/17 23:11 Dose: 2 inh Fluticasone Propionate (Flonase -) 1 spray NS BID [facility] Last Admin: 03/12/17 00:10 Dose: Not Given Furosemide (Lasix -) 20 mg PO BIDLASIX [facility] Last Admin: 03/12/17 06:27 Dose: 20 mg Guaifenesin/Codeine Phosphate (Robitussin Ac -) 5 ml PO Q6H PRN PRN Reason: COUGH Last Admin: 03/11/17 23:14 Dose: 5 ml Hydrochlorothiazide (Hctz -) 12.5 mg PO DAILY [facility] Last Admin: 03/11/17 11:41 Dose: 12.5 mg Iron Sucrose 200 mg/ Sodium (Chloride) 110 mls @ 110 mls/hr IVPB DAILY [facility] Last Admin: 03/11/17 11:42 Dose: 110 mls/hr Insulin Aspart (Novolog Vial Sliding Scale -) 1 vial SQ ACHS [facility] PRN Reason: Protocol Last Admin: 03/12/17 06:38 Dose: Not Given Meclizine HCl (Antivert -) 12.5 mg PO BID [facility] Last Admin: 03/11/17 23:09 Dose: 12.5 mg Nifedipine (Procardia Xl -) 30 mg PO DAILY [facility] Last Admin: 03/11/17 11:41 Dose: 30 mg Non-Formulary Medication (Cyclosporine [Restasis]) 1 each OP BID [facility] Non-Formulary Medication (Olopatadine Hcl [Patanase]) 665 mcg NS DAILY [facility] Nystatin (Nystatin Oral Suspension -) 500,000 units PO TID [facility] Last Admin: 03/12/17 06:27 Dose: 500,000 units Pantoprazole Sodium (Protonix -) 40 mg PO DAILY [facility] Last Admin: 03/11/17 11:41 Dose: 40 mg Polyethylene Glycol (Miralax (For Daily Use) -) 17 gm PO DAILY [facility] Last Admin: 03/11/17 11:39 Dose: 17 grams Prednisone (Deltasone -) 40 mg PO DAILY [facility] Last Admin: 03/11/17 11:42 Dose: 40 mg Rosuvastatin Calcium (Crestor -) 10 mg PO HS [facility] [place] Last Admin: 03/11/17 23:08 Dose: 10 mg Senna (Senna -) 1 tab PO BID [facility] Last Admin: 03/11/17 23:09 Dose: 1 tab Sodium Chloride ([place] Nasal [place] -) 2 spray NS TID PRN PRN Reason: NASAL CONGESTION Last Admin: 03/10/17 11:47 Dose: 2 spray Sodium Chloride ([place] Nasal [place] -) 2 spray NS BID [facility] Last Admin: 03/11/17 23:11 Dose: 2 sprays Valsartan (Diovan -) 160 mg PO DAILY [facility] Last Admin: 03/11/17 11:40 Dose: 160 mg Warfarin Sodium (Coumadin -) 3 mg PO DAILY@1800 [facility] Last Admin: 03/11/17 17:37 Dose: 3 mg - Objective Vital Signs: Vital Signs Temperature 97.8 F 03/12/17 09:25 Pulse Rate 110 H 03/12/17 09:48 Respiratory Rate 22 03/12/17 09:25 Blood Pressure 143/60 03/12/17 09:25 O2 Sat by Pulse Oximetry (%) 94 L 03/12/17 09:48 Constitutional: Yes: No Distress, Calm, Obese Eyes: Yes: Conjunctiva Clear, EOM Intact, PERRL HENT: Yes: Atraumatic, Normocephalic Neck: Yes: Supple, Thyromegaly Cardiovascular: Yes: Regular Rate and Rhythm, S1, S2. No: Bradycardia, Tachycardia, Pulse Irregular, Bruit, JVD, Gallop, Murmur, Rub, S3, S4, Varicosities Respiratory: Yes: Regular, Diminished, On Nasal O2. No: Rales, Rhonchi, SOB, Wheezes Gastrointestinal: Yes: WNL, Normal Bowel Sounds, Soft. No: Distention, Tenderness Musculoskeletal: Yes: WNL Extremities: Yes: WNL Edema: No Peripheral Pulses WNL: Yes Peripheral Pulses: Left Doralis Pedis: 2+, Right Dorsalis Pedis: 2+ Integumentary: Yes: WNL Neurological: Yes: Alert, Oriented Psychiatric: Yes: Alert, Oriented Labs: CBC, BMP 03/11/17 06:00 03/11/17 06:00 INR, PTT INR 2.45 (0.82-1.09) H 03/12/17 06:00 - ....Imaging Chest X-ray: Report Reviewed, Image Reviewed EKG: Report Reviewed, Image Reviewed Other: Report Reviewed, Image Reviewed Assessment/Plan IMP: ADVANCED COPD O2 DEPENDENT WITH ACUTE EXACERBATION CHRONIC HYPOXEMIC RESPIRATORY CHF PULMONARY HTN H/O PULMONARY EMBOLISM EPISTAXIS/bruising SUPRA-THERAPEUTIC INR REC: In regards to anti-coagulation: 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 There was no documentation of afib or aflutter at the time, it was started empirically. Pt. also had a cardiac cath 2013 that reportedly showed normal coronary arteries. In light of the above and considering her recurrent severe epistaxis, bruising, and conjunctival hemorrhages, it is reasonable to consider adjustment in her anti-coagulation regimen. Discussed at length with patient regarding the different options and risks vs benefits of each. She has decided to give a trial of stopping ASA (given no CAD on cardiac cath) and to continue with coumadin alone. At the same time will plan for longer term event monitoring as outpatient with a wearable event monitor and will consider an implantable loop recorder. Will also check a TTE today to confirm no sig structural heart disease. -dc ASA today -cont coumadin for goal INR 2-3 -echo today -further work up as outpatient with event monitor
[2017-03-12] MEDS ORDERED: ARFORMOTEROL TARTRATE 15 MCG/2 ML VIAL NEB ONE (10:42)
[2017-03-12] MEDS: PANTOPRAZOLE 20 MG TABLET (FP) PO SCH (11:00)
[2017-03-12] MEDS: predniSONE 20 MG TABLET (UD) PO SCH (11:00)
[2017-03-12] MEDS: POLYETHYLENE GLYCOL 3350 119 GM BTL PO SCH (11:00)
[2017-03-12] MEDS: NIFEdipine E.R. 30 MG TABLET (FP) PO SCH (11:00)
[2017-03-12] MEDS: HYDROCHLOROTHIAZIDE 12.5 MG CAPSULE (FP) PO SCH (11:00)
[2017-03-12] MEDS: VALSARTAN 160 MG TABLET (UD) PO SCH (11:00)
[2017-03-12] MEDS: SENNOSIDES 8.6MG TABLET (FP) PO SCH ×2 (11:00→21:49)
[2017-03-12] MEDS: ASPIRIN 81 MG CHEWABLE TABLETS PO SCH (11:43)
[2017-03-12] MEDS: MECLIZINE HCL 12.5 MG TABLET PO SCH ×2 (12:07→21:42)
[2017-03-12] MEDS: IRON SUCROSE INJECTION 200 MG in SODIUM CHLORIDE 100 ML IVPB SCH (12:08)
[2017-03-12] MEDS: BUDESONIDE/FORMETEROL FUMARATE 160/4.5 mcg INHALER IH SCH ×2 (12:18→21:50)
[2017-03-12] MEDS: SODIUM CHLORIDE NASAL SPRAY 44 ML BOTTLE NS SCH ×2 (12:19→21:50)
[2017-03-12] MEDS: ALBUTEROL SO4 0.083% IH SOL 2.5 MG/3 ML VIAL.NEB. NEB PRN ×2 (12:20→18:50)
[2017-03-12] MEDS: WARFARIN NA 3 MG TABLET PO SCH (18:07)
--- NOTE | 2017-03-12 18:08 | PN ---
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
--- NOTE | 2017-03-12 20:55 | PN ---
Progress Note, Physician History of Present Illness: No new complaints - Current Medication List Current Medications: Active Medications Aclidinium [place] (Tudorza -) 1 puff IH BID [facility] Albuterol Sulfate (Ventolin 0.083% Nebulizer Soln -) 1 amp NEB Q6H PRN PRN Reason: SHORT OF BREATH/WHEEZING Last Admin: 03/12/17 18:50 Dose: 1 amp Arformoterol Tartrate ([place]rov[place] (Restricted To Pulmonology/Resp) -) 1 amp NEB BID [facility] Budesonide/Formoterol Fumarate (Symbicort 160/4.5mcg -) 2 puff IH BID [facility] Last Admin: 03/12/17 12:18 Dose: 2 inh Fluticasone Propionate (Flonase -) 1 spray NS BID [facility] Last Admin: 03/12/17 12:19 Dose: 1 spray Furosemide (Lasix -) 20 mg PO BIDLASIX [facility] Last Admin: 03/12/17 13:56 Dose: 20 mg Guaifenesin/Codeine Phosphate (Robitussin Ac -) 5 ml PO Q6H PRN PRN Reason: COUGH Last Admin: 03/11/17 23:14 Dose: 5 ml Hydrochlorothiazide (Hctz -) 12.5 mg PO DAILY [facility] Last Admin: 03/12/17 11:00 Dose: 12.5 mg Iron Sucrose 200 mg/ Sodium (Chloride) 110 mls @ 110 mls/hr IVPB DAILY [facility] Last Admin: 03/12/17 12:08 Dose: 110 mls/hr Insulin Aspart (Novolog Vial Sliding Scale -) 1 vial SQ ACHS [facility] PRN Reason: Protocol Last Admin: 03/12/17 16:39 Dose: Not Given Meclizine HCl (Antivert -) 12.5 mg PO BID [facility] Last Admin: 03/12/17 12:07 Dose: 12.5 mg Nifedipine (Procardia Xl -) 30 mg PO DAILY [facility] Last Admin: 03/12/17 11:00 Dose: 30 mg Non-Formulary Medication (Cyclosporine [Restasis]) 1 each OP BID [facility] Non-Formulary Medication (Olopatadine Hcl [Patanase]) 665 mcg NS DAILY [facility] Nystatin (Nystatin Oral Suspension -) 500,000 units PO TID [facility] Last Admin: 03/12/17 13:56 Dose: 500,000 units Pantoprazole Sodium (Protonix -) 40 mg PO DAILY [facility] Last Admin: 03/12/17 11:00 Dose: 40 mg Polyethylene Glycol (Miralax (For Daily Use) -) 17 gm PO DAILY [facility] Last Admin: 03/12/17 11:00 Dose: 17 grams Prednisone (Deltasone -) 40 mg PO DAILY [facility] Last Admin: 03/12/17 11:00 Dose: 40 mg Rosuvastatin Calcium (Crestor -) 10 mg PO HS [facility] Last Admin: 03/11/17 23:08 Dose: 10 mg Senna (Senna -) 1 tab PO BID [facility] Last Admin: 03/12/17 11:00 Dose: 1 tab Sodium Chloride ([place] Nasal [place] -) 2 spray NS TID PRN PRN Reason: NASAL CONGESTION Last Admin: 03/10/17 11:47 Dose: 2 spray Sodium Chloride ([place] Nasal [place] -) 2 spray NS BID [facility] Last Admin: 03/12/17 12:19 Dose: 2 sprays Valsartan (Diovan -) 160 mg PO DAILY [facility] Last Admin: 03/12/17 11:00 Dose: 160 mg Warfarin Sodium (Coumadin -) 3 mg PO DAILY@1800 [facility] Last Admin: 03/12/17 18:07 Dose: 3 mg - Objective Vital Signs: Vital Signs Temperature 98.5 F 03/12/17 17:41 Pulse Rate 96 H 03/12/17 17:41 Respiratory Rate 20 03/12/17 17:41 Blood Pressure 133/62 03/12/17 17:41 O2 Sat by Pulse Oximetry (%) 94 L 03/12/17 09:48 Cardiovascular: Yes: WNL, Regular Rate and Rhythm Respiratory: Yes: WNL, Regular, CTA Bilaterally Gastrointestinal: Yes: WNL, Normal Bowel Sounds, Soft Labs: CBC, BMP 03/11/17 06:00 03/11/17 06:00 INR, PTT INR 2.45 (0.82-1.09) H 03/12/17 06:00 Problem List - Problems (1) prison current use of anticoagulant Code(s): Z79.01 - NURSING HOME (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 OF 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 (2) COPD exacerbation Code(s): J44.1 - CHRONIC OBSTRUCTIVE PULMONARY DISEASE W (ACUTE) EXACERBATION (3) Anemia Code(s): D64.9 - ANEMIA, UNSPECIFIED (4) Hypertension Code(s): I10 - ESSENTIAL (PRIMARY) HYPERTENSION (5) Chronic diastolic (congestive) heart failure Code(s): I50.32 - CHRONIC DIASTOLIC (CONGESTIVE) HEART FAILURE (6) Coronary artery disease Code(s): I25.10 - ATHSCL HEART DISEASE OF [place] CORONARY ARTERY W/O ANG PCTRS (7) DVT (deep venous thrombosis) Code(s): I82.409 - ACUTE EMBOLISM AND THOMBOS UNSP DEEP VN UNSP LOWER EXTREMITY (8) History of pulmonary embolism Code(s): Z86.711 - PERSONAL HISTORY OF PULMONARY EMBOLISM (9) Obesity Code(s): E66.9 - OBESITY, UNSPECIFIED
[2017-03-12] MEDS ORDERED: PT OWN MED DRAWER 7, Y5N ONE (21:13)
[2017-03-12] MEDS: ROSUVASTATIN CA 10 MG TABLET (FP) PO SCH (21:42)
[2017-03-12] MEDS: guaiFENesin/CODEINE 5 ML UNIT-DOSE CUPS PO PRN (21:45)
[2017-03-12] MEDS: ACLIDINIUM BROMIDE 400 MCG/INH AERO.POWD IH SCH (23:44)
[2017-03-13] MEDS: ALBUTEROL SO4 0.083% IH SOL 2.5 MG/3 ML VIAL.NEB. NEB PRN ×3 (05:41→20:55)
[2017-03-13] MEDS: FUROSEMIDE 20 MG TABLET (FP) PO SCH ×2 (06:03→13:05)
[2017-03-13] MEDS: NYSTATIN 500,000 UNITS/5 ML SUSPENSION PO SCH ×3 (06:03→22:08)
[2017-03-13] MEDS: INSULIN SLIDING SCALE (NOVOLOG) 1 VIAL SQ SCH ×4 (06:03→22:13)
[2017-03-13] MEDS ORDERED: PT OWN MED DRAWER 7, Y5N ONE (11:07)
[2017-03-13] MEDS: FLUTICASONE PROP 0.05% 16 GM NASAL SPRAY NS SCH ×2 (11:10→22:08)
[2017-03-13] MEDS: IRON SUCROSE INJECTION 200 MG in SODIUM CHLORIDE 100 ML IVPB SCH (11:33)
[2017-03-13] MEDS: MECLIZINE HCL 12.5 MG TABLET PO SCH ×2 (11:36→22:08)
[2017-03-13] MEDS: SENNOSIDES 8.6MG TABLET (FP) PO SCH ×2 (11:36→22:08)
[2017-03-13] MEDS: PANTOPRAZOLE 20 MG TABLET (FP) PO SCH (11:36)
[2017-03-13] MEDS: NIFEdipine E.R. 30 MG TABLET (FP) PO SCH (11:36)
[2017-03-13] MEDS: HYDROCHLOROTHIAZIDE 12.5 MG CAPSULE (FP) PO SCH (11:36)
[2017-03-13] MEDS: VALSARTAN 160 MG TABLET (UD) PO SCH (11:37)
[2017-03-13] MEDS: predniSONE 20 MG TABLET (UD) PO SCH (11:37)
[2017-03-13] MEDS: BUDESONIDE/FORMETEROL FUMARATE 160/4.5 mcg INHALER IH SCH ×2 (11:39→22:09)
[2017-03-13] MEDS: SODIUM CHLORIDE NASAL SPRAY 44 ML BOTTLE NS SCH ×2 (11:39→22:09)
[2017-03-13] MEDS: ACLIDINIUM BROMIDE 400 MCG/INH AERO.POWD IH SCH ×2 (11:40→22:09)
[2017-03-13] MEDS: POLYETHYLENE GLYCOL 3350 119 GM BTL PO SCH (11:46)
[2017-03-13 14:11] LABS: INR 2.27 (0.82-1.09); PROTHROMBIN TIME (PATIENT) 25.4 SEC (9.98-11.88)
--- NOTE | 2017-03-13 14:48 | PN ---
Progress Note, Physician History of Present Illness: pulmonary alert,feeling better,-resp distress - Current Medication List Current Medications: Active Medications Aclidinium [place] (Tudorza -) 1 puff IH BID [facility] Last Admin: 03/13/17 11:40 Dose: 1 puff Albuterol Sulfate (Ventolin 0.083% Nebulizer Soln -) 1 amp NEB Q6H PRN PRN Reason: SHORT OF BREATH/WHEEZING Last Admin: 03/13/17 10:42 Dose: 1 amp Arformoterol Tartrate (Brovana (Restricted To Pulmonology/Resp) -) 1 amp NEB BID [facility] Budesonide/Formoterol Fumarate (Symbicort 160/4.5mcg -) 2 puff IH BID [facility] Last Admin: 03/13/17 11:39 Dose: 2 inh Fluticasone Propionate (Flonase -) 1 spray NS BID [facility] Last Admin: 03/13/17 11:10 Dose: Not Given Furosemide (Lasix -) 20 mg PO BIDLASIX [facility] Last Admin: 03/13/17 13:05 Dose: 20 mg Hydrochlorothiazide (Hctz -) 12.5 mg PO DAILY [facility] Last Admin: 03/13/17 11:36 Dose: 12.5 mg Iron Sucrose 200 mg/ Sodium (Chloride) 110 mls @ 110 mls/hr IVPB DAILY [facility] Last Admin: 03/13/17 11:33 Dose: 110 mls/hr Insulin Aspart (Novolog Vial Sliding Scale -) 1 vial SQ ACHS [facility] PRN Reason: Protocol Last Admin: 03/13/17 12:41 Dose: Not Given Meclizine HCl (Antivert -) 12.5 mg PO BID [facility] Last Admin: 03/13/17 11:36 Dose: 12.5 mg Nifedipine (Procardia Xl -) 30 mg PO DAILY [facility] Last Admin: 03/13/17 11:36 Dose: 30 mg Non-Formulary Medication (Cyclosporine [Restasis]) 1 each OP BID [facility] Non-Formulary Medication (Olopatadine Hcl [Patanase]) 665 mcg NS DAILY [facility] Nystatin (Nystatin Oral Suspension -) 500,000 units PO TID [facility] Last Admin: 03/13/17 13:05 Dose: 500,000 units Pantoprazole Sodium (Protonix -) 40 mg PO DAILY [facility] Last Admin: 03/13/17 11:36 Dose: 40 mg Polyethylene Glycol (Miralax (For Daily Use) -) 17 gm PO DAILY [facility] Last Admin: 03/13/17 11:46 Dose: 17 grams Prednisone (Deltasone -) 40 mg PO DAILY [facility] Last Admin: 03/13/17 11:37 Dose: 40 mg Rosuvastatin Calcium (Crestor -) 10 mg PO HS [facility] Last Admin: 03/12/17 21:42 Dose: 10 mg Senna (Senna -) 1 tab PO BID [facility] Last Admin: 03/13/17 11:36 Dose: 1 tab Sodium Chloride ([place] Nasal [place] -) 2 spray NS TID PRN PRN Reason: NASAL CONGESTION Last Admin: 03/10/17 11:47 Dose: 2 spray Sodium Chloride ([place] Nasal [place] -) 2 spray NS BID [facility] Last Admin: 03/13/17 11:39 Dose: 2 sprays Valsartan (Diovan -) 160 mg PO DAILY [facility] Last Admin: 03/13/17 11:37 Dose: 160 mg Warfarin Sodium (Coumadin -) 3 mg PO DAILY@1800 [facility] Last Admin: 03/12/17 18:07 Dose: 3 mg - Objective Vital Signs: Vital Signs Temperature 98.3 F 03/13/17 10:00 Pulse Rate 81 03/13/17 10:42 Respiratory Rate 20 03/13/17 10:00 Blood Pressure 134/72 03/13/17 10:00 O2 Sat by Pulse Oximetry (%) 98 03/13/17 10:42 Constitutional: Yes: Calm, Obese Eyes: Yes: WNL HENT: Yes: WNL Neck: Yes: Supple Cardiovascular: Yes: Regular Rate and Rhythm, S1, S2 Respiratory: Yes: Diminished Gastrointestinal: Yes: Normal Bowel Sounds, Soft Extremities: Yes: WNL Edema: No Labs: CBC, BMP 03/11/17 06:00 03/11/17 06:00 INR, PTT INR 2.27 (0.82-1.09) H 03/13/17 13:40 Assessment/Plan IMP DYSPNEA ADVANCED COPD O2 DEPENDENT WITH ACUTE EXACERBATION improved CHRONIC HYPOXEMIC RESPIRATORY CHF PULMONARY HTN H/O PULMONARY EMBOLISM EPISTAXIS resolved SUPRA-THERAPEUTIC INR corrected ANEMIA PLAN INHALED BRONCHODILATORS O2 MONITOR INR SHORT TERM REHAB DR FOX
--- NOTE | 2017-03-13 17:16 | PN ---
Progress Note (short form) - Note Progress Note: PAtient seen and examined NO specific complaints Last Vital Signs Temp Pulse Resp BP Pulse Ox 98.3 F 81 20 134/72 98 03/13/17 10:00 03/13/17 10:42 03/13/17 10:00 03/13/17 10:00 03/13/17 10:42 Cor: RSR, No murmurs, No gallops Lungs: Clear to P&A Abd: Soft, Normal bowel sounds, No organomegaly Ext:No significant edema Skin: No rashes, Integument intact Abnormal Lab Results 03/13/17 13:40 INR 2.27 H Current Medications Aclidinium [place] (Tudorza -) 1 puff IH BID [facility] Last Admin: 03/13/17 11:40 Dose: 1 puff Albuterol Sulfate (Ventolin 0.083% Nebulizer Soln -) 1 amp NEB Q6H PRN PRN Reason: SHORT OF BREATH/WHEEZING Last Admin: 03/13/17 10:42 Dose: 1 amp Arformoterol Tartrate ([place]rovana (Restricted To Pulmonology/Resp) -) 1 amp NEB BID [facility] Budesonide/Formoterol Fumarate (Symbicort 160/4.5mcg -) 2 puff IH BID [facility] Last Admin: 03/13/17 11:39 Dose: 2 inh Fluticasone Propionate (Flonase -) 1 spray NS BID [facility] Last Admin: 03/13/17 11:10 Dose: Not Given Furosemide (Lasix -) 20 mg PO BIDLASIX [facility] Last Admin: 03/13/17 13:05 Dose: 20 mg Hydrochlorothiazide (Hctz -) 12.5 mg PO DAILY [facility] Last Admin: 03/13/17 11:36 Dose: 12.5 mg Insulin Aspart (Novolog Vial Sliding Scale -) 1 vial SQ ACHS [facility] PRN Reason: Protocol Last Admin: 03/13/17 12:41 Dose: Not Given Meclizine HCl (Antivert -) 12.5 mg PO BID [facility] Last Admin: 03/13/17 11:36 Dose: 12.5 mg Nifedipine (Procardia Xl -) 30 mg PO DAILY [facility] Last Admin: 03/13/17 11:36 Dose: 30 mg Non-Formulary Medication (Cyclosporine [Restasis]) 1 each OP BID [facility] Non-Formulary Medication (Olopatadine Hcl [Patanase]) 665 mcg NS DAILY [facility] Nystatin (Nystatin Oral Suspension -) 500,000 units PO TID [facility] Last Admin: 03/13/17 13:05 Dose: 500,000 units Pantoprazole Sodium (Protonix -) 40 mg PO DAILY [facility] Last Admin: 03/13/17 11:36 Dose: 40 mg Polyethylene Glycol (Miralax (For Daily Use) -) 17 gm PO DAILY [facility] Last Admin: 03/13/17 11:46 Dose: 17 grams Prednisone (Deltasone -) 40 mg PO DAILY [facility] Last Admin: 03/13/17 11:37 Dose: 40 mg Rosuvastatin Calcium (Crestor -) 10 mg PO HS [facility] Last Admin: 03/12/17 21:42 Dose: 10 mg Senna (Senna -) 1 tab PO BID [facility] Last Admin: 03/13/17 11:36 Dose: 1 tab Sodium Chloride ([place] Nasal Declo -) 2 spray NS TID PRN PRN Reason: NASAL CONGESTION Last Admin: 03/10/17 11:47 Dose: 2 spray Sodium Chloride ([place] Decl[place] Nasal Declo -) 2 spray NS BID [facility] Last Admin: 03/13/17 11:39 Dose: 2 sprays Valsartan (Diovan -) 160 mg PO DAILY [facility] Last Admin: 03/13/17 11:37 Dose: 160 mg Warfarin Sodium (Coumadin -) 3 mg PO DAILY@1800 [facility] Last Admin: 03/12/17 18:07 Dose: 3 mg A/P 66 y/o patient with morbid obesity/COPD, h/o DVT/PE, 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
[2017-03-13] MEDS: WARFARIN NA 3 MG TABLET PO SCH (18:03)
[2017-03-13] MEDS: ROSUVASTATIN CA 10 MG TABLET (FP) PO SCH (22:08)
--- NOTE | 2017-03-13 22:18 | PN ---
Progress Note, Physician History of Present Illness: No new complaints - Current Medication List Current Medications: Active Medications Aclidinium [place] (Tudorza -) 1 puff IH BID [facility] Last Admin: 03/13/17 22:09 Dose: Not Given Albuterol Sulfate (Ventolin 0.083% Nebulizer Soln -) 1 amp NEB Q6H PRN PRN Reason: SHORT OF BREATH/WHEEZING Last Admin: 03/13/17 20:55 Dose: 1 amp Arformoterol Tartrate (Brovana (Restricted To Pulmonology/Resp) -) 1 amp NEB BID [facility] Budesonide/Formoterol Fumarate (Symbicort 160/4.5mcg -) 2 puff IH BID [facility] Last Admin: 03/13/17 22:09 Dose: 2 inh Fluticasone Propionate (Flonase -) 1 spray NS BID [facility] Last Admin: 03/13/17 22:08 Dose: Not Given Furosemide (Lasix -) 20 mg PO BIDLASIX [facility] Last Admin: 03/13/17 13:05 Dose: 20 mg Hydrochlorothiazide (Hctz -) 12.5 mg PO DAILY [facility] Last Admin: 03/13/17 11:36 Dose: 12.5 mg Insulin Aspart (Novolog Vial Sliding Scale -) 1 vial SQ ACHS [facility] PRN Reason: Protocol Last Admin: 03/13/17 22:13 Dose: 2 units Meclizine HCl (Antivert -) 12.5 mg PO BID [facility] Last Admin: 03/13/17 22:08 Dose: 12.5 mg Nifedipine (Procardia Xl -) 30 mg PO DAILY [facility] Last Admin: 03/13/17 11:36 Dose: 30 mg Non-Formulary Medication (Cyclosporine [Restasis]) 1 each OP BID [facility] Non-Formulary Medication (Olopatadine Hcl [Patanase]) 665 mcg NS DAILY [facility] Nystatin (Nystatin Oral Suspension -) 500,000 units PO TID [facility] Last Admin: 03/13/17 22:08 Dose: 500,000 units Pantoprazole Sodium (Protonix -) 40 mg PO DAILY [facility] Last Admin: 03/13/17 11:36 Dose: 40 mg Polyethylene Glycol (Miralax (For Daily Use) -) 17 gm PO DAILY [facility] Last Admin: 03/13/17 11:46 Dose: 17 grams Prednisone (Deltasone -) 40 mg PO DAILY [facility] Last Admin: 05/19/17 11:37 Dose: 40 mg Rosuvastatin Calcium (Crestor -) 10 mg PO HS [facility] Last Admin: 03/13/17 22:08 Dose: 10 mg Senna (Senna -) 1 tab PO BID [facility] Last Admin: 03/13/17 22:08 Dose: 1 tab Sodium Chloride ([place] Nasal [place] -) 2 spray NS TID PRN PRN Reason: NASAL CONGESTION Last Admin: 03/10/17 11:47 Dose: 2 spray Sodium Chloride ([place] Nasal [place] -) 2 spray NS BID [facility] Last Admin: 03/13/17 22:09 Dose: 2 sprays Valsartan (Diovan -) 160 mg PO DAILY [facility] Last Admin: 03/13/17 11:37 Dose: 160 mg Warfarin Sodium (Coumadin -) 3 mg PO DAILY@1800 [facility] Last Admin: 03/13/17 18:03 Dose: 3 mg - Objective Vital Signs: Vital Signs Temperature 99.3 F 03/13/17 18:00 Pulse Rate 95 H 03/13/17 18:00 Respiratory Rate 18 03/13/17 18:00 Blood Pressure 138/68 03/13/17 18:00 O2 Sat by Pulse Oximetry (%) 98 03/13/17 10:42 Cardiovascular: Yes: WNL, Regular Rate and Rhythm Respiratory: Yes: WNL, Regular, CTA Bilaterally Gastrointestinal: Yes: WNL, Normal Bowel Sounds, Soft Labs: CBC, BMP 03/11/17 06:00 03/11/17 06:00 INR, PTT INR 2.27 (0.82-1.09) H 03/13/17 13:40 Problem List - Problems (1) intermission coordinator current use of anticoagulant Code(s): Z79.01 - RESIDENTIAL (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 OF 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 (2) COPD exacerbation Code(s): J44.1 - CHRONIC OBSTRUCTIVE PULMONARY DISEASE W (ACUTE) EXACERBATION (3) Anemia Code(s): D64.9 - ANEMIA, UNSPECIFIED (4) Hypertension Code(s): I10 - ESSENTIAL (PRIMARY) HYPERTENSION (5) Chronic diastolic (congestive) heart failure Code(s): I50.32 - CHRONIC DIASTOLIC (CONGESTIVE) HEART FAILURE (6) Coronary artery disease Code(s): I25.10 - ATHSCL HEART DISEASE OF [place] CORONARY ARTERY W/O ANG PCTRS (7) DVT (deep venous thrombosis) Code(s): I82.409 - ACUTE EMBOLISM AND THOMBOS UNSP DEEP VN UNSP LOWER EXTREMITY (8) History of pulmonary embolism Code(s): Z86.711 - PERSONAL HISTORY OF PULMONARY EMBOLISM (9) Obesity Code(s): E66.9 - OBESITY, UNSPECIFIED
[2017-03-14] MEDS: ALBUTEROL SO4 0.083% IH SOL 2.5 MG/3 ML VIAL.NEB. NEB PRN ×3 (00:07→11:23)
[2017-03-14] MEDS: NYSTATIN 500,000 UNITS/5 ML SUSPENSION PO SCH ×2 (06:20→14:20)
[2017-03-14] MEDS: FUROSEMIDE 20 MG TABLET (FP) PO SCH ×2 (06:20→14:20)
[2017-03-14] MEDS: INSULIN SLIDING SCALE (NOVOLOG) 1 VIAL SQ SCH ×2 (06:22→11:52)
[2017-03-14 07:45] LABS: MCH 21.8 pg (25.7-33.7); MCHC 28.6 g/dl (32.0-36.0); MEAN CELL VOLUME 76.3 fl (80-96); MEAN PLT VOLUME 8.6 fl (7.5-11.1); PLATELET COUNT 282 K/MM3 (134-434); RDW 16.5 % (11.6-15.6); WHITE BLOOD COUNT 29.1 K/mm3 (4.0-10.0)
[2017-03-14 07:56] LABS: ALBUMIN 3.4 g/dl (3.4-5.0); BILIRUBIN,TOTAL 0.8 mg/dL (0.2-1.0); CALCIUM 8.5 mg/dL (8.5-10.1); COCKROFT - GAULT 81.073; CREATININE 1.4 mg/dL (0.55-1.02)
[2017-03-14 10:29] LABS: HYPOCHROMIA 3+; PLATELET ESTIMATE ADEQUATE (NORMAL)
[2017-03-14 10:30] LABS: ANISOCYTOSIS 1+; MICROCYTOSIS 1+; TEAR DROP CELLS 1+
[2017-03-14] MEDS: VALSARTAN 160 MG TABLET (UD) PO SCH (10:33)
[2017-03-14] MEDS: SENNOSIDES 8.6MG TABLET (FP) PO SCH (10:33)
[2017-03-14] MEDS: MECLIZINE HCL 12.5 MG TABLET PO SCH (10:33)
[2017-03-14] MEDS: PANTOPRAZOLE 20 MG TABLET (FP) PO SCH (10:33)
[2017-03-14] MEDS: HYDROCHLOROTHIAZIDE 12.5 MG CAPSULE (FP) PO SCH (10:34)
[2017-03-14] MEDS: predniSONE 20 MG TABLET (UD) PO SCH (10:34)
[2017-03-14] MEDS: NIFEdipine E.R. 30 MG TABLET (FP) PO SCH (10:34)
[2017-03-14] MEDS: POLYETHYLENE GLYCOL 3350 119 GM BTL PO SCH (10:35)
[2017-03-14] MEDS: SODIUM CHLORIDE NASAL SPRAY 44 ML BOTTLE NS SCH (10:36)
[2017-03-14] MEDS: BUDESONIDE/FORMETEROL FUMARATE 160/4.5 mcg INHALER IH SCH (10:36)
[2017-03-14] MEDS: FLUTICASONE PROP 0.05% 16 GM NASAL SPRAY NS SCH (10:37)
[2017-03-14] MEDS: ACLIDINIUM BROMIDE 400 MCG/INH AERO.POWD IH SCH (10:37)
--- NOTE | 2017-03-14 12:39 | PN ---
Progress Note, Physician History of Present Illness: pulmonary alert,no distress,-cp,-sob at rest. - Current Medication List Current Medications: Active Medications Aclidinium [place] (Tudorza -) 1 puff IH BID [facility] Last Admin: 03/14/17 10:37 Dose: 1 puff Albuterol Sulfate (Ventolin 0.083% Nebulizer Soln -) 1 amp NEB Q6H PRN PRN Reason: SHORT OF BREATH/WHEEZING Last Admin: 03/14/17 11:23 Dose: 1 amp Arformoterol Tartrate (Brovana (Restricted To Pulmonology/Resp) -) 1 amp NEB BID [facility] Budesonide/Formoterol Fumarate (Symbicort 160/4.5mcg -) 2 puff IH BID [facility] Last Admin: 03/14/17 10:36 Dose: 2 inh Fluticasone Propionate (Flonase -) 1 spray NS BID [facility] Last Admin: 03/14/17 10:37 Dose: 1 spray Furosemide (Lasix -) 20 mg PO BIDLASIX [facility] Last Admin: 03/14/17 06:20 Dose: 20 mg Hydrochlorothiazide (Hctz -) 12.5 mg PO DAILY [facility] Last Admin: 03/14/17 10:34 Dose: 12.5 mg Insulin Aspart (Novolog Vial Sliding Scale -) 1 vial SQ ACHS [facility] PRN Reason: Protocol Last Admin: 03/14/17 11:52 Dose: Not Given Meclizine HCl (Antivert -) 12.5 mg PO BID [facility] Last Admin: 03/14/17 10:33 Dose: 12.5 mg Nifedipine (Procardia Xl -) 30 mg PO DAILY [facility] Last Admin: 03/14/17 10:34 Dose: 30 mg Non-Formulary Medication (Cyclosporine [Restasis]) 1 each OP BID [facility] Non-Formulary Medication (Olopatadine Hcl [Patanase]) 665 mcg NS DAILY [facility] Nystatin (Nystatin Oral Suspension -) 500,000 units PO TID [facility] Last Admin: 03/14/17 06:20 Dose: 500,000 units Pantoprazole Sodium (Protonix -) 40 mg PO DAILY [facility] Last Admin: 03/14/17 10:33 Dose: 40 mg Polyethylene Glycol (Miralax (For Daily Use) -) 17 gm PO DAILY [facility] Last Admin: 03/14/17 10:35 Dose: 17 grams Prednisone (Deltasone -) 40 mg PO DAILY [facility] Last Admin: 03/14/17 10:34 Dose: 40 mg Rosuvastatin Calcium (Crestor -) 10 mg PO HS [facility] Last Admin: 03/13/17 22:08 Dose: 10 mg Senna (Senna -) 1 tab PO BID [facility] Last Admin: 03/14/17 10:33 Dose: 1 tab Sodium Chloride ([place] Nasal [place] -) 2 spray NS TID PRN PRN Reason: NASAL CONGESTION Last Admin: 03/10/17 11:47 Dose: 2 spray Sodium Chloride ([place] Nasal [place] -) 2 spray NS BID [facility] Last Admin: 03/14/17 10:36 Dose: 2 sprays Valsartan (Diovan -) 160 mg PO DAILY [facility] Last Admin: 03/14/17 10:33 Dose: 160 mg Warfarin Sodium (Coumadin -) 3 mg PO DAILY@1800 [facility] Last Admin: 03/13/17 18:03 Dose: 3 mg - Objective Vital Signs: Vital Signs Temperature 98.2 F 03/14/17 06:00 Pulse Rate 87 03/14/17 10:21 Respiratory Rate 20 03/14/17 06:00 Blood Pressure 123/45 03/14/17 06:00 O2 Sat by Pulse Oximetry (%) 99 03/14/17 10:21 Constitutional: Yes: Well Nourished, Calm Eyes: Yes: WNL HENT: Yes: WNL Neck: Yes: WNL Cardiovascular: Yes: Regular Rate and Rhythm, S1, S2 Respiratory: Yes: Wheezes (few wheezes) Gastrointestinal: Yes: Normal Bowel Sounds, Soft Extremities: Yes: WNL Edema: Yes Labs: CBC, BMP 03/14/17 06:00 03/14/17 06:00 INR, PTT INR 2.27 (0.82-1.09) H 03/13/17 13:40 Assessment/Plan IMP DYSPNEA ADVANCED COPD O2 DEPENDENT WITH ACUTE EXACERBATION improved CHRONIC HYPOXEMIC RESPIRATORY CHF PULMONARY HTN H/O PULMONARY EMBOLISM EPISTAXIS resolved SUPRA-THERAPEUTIC INR corrected ANEMIA PLAN INHALED BRONCHODILATORS O2 MONITOR INR PREDNISONE SHORT TERM REHAB DR FOX
[2017-03-14 13:47] VITALS: BP 112/60; PULSE 92; TEMP 98.3
== END 2017-03-14 17:25 | DRG 190 ==
LOC: JER 10:04 → JERBED 14:11 → J4W 19:35 → J7W 03-05 14:40
PROVIDERS: ADMIT Internal Medicine; ATTEND Internal Medicine
PROC: 3E0F7GC Introduction of Other Therapeutic Substance into Respiratory Tract, Via Natural or Artificial Opening (ICD-10-PCS; principal; 2017-03-02)
DX: J44.1 Chronic obstructive pulmonary disease with (acute) exacerbation (principal); J96.21 Acute and chronic respiratory failure with hypoxia; Z68.42 Body mass index [BMI] 45.0-49.9, adult; I50.32 Chronic diastolic (congestive) heart failure; Z99.81 Dependence on supplemental oxygen; D64.9 Anemia, unspecified; I27.2 Other secondary pulmonary hypertension; R04.0 Epistaxis; E66.01 Morbid (severe) obesity due to excess calories; Z71.3 Dietary counseling and surveillance; Z86.711 Personal history of pulmonary embolism; Z79.01 Long term (current) use of anticoagulants; H11.32 Conjunctival hemorrhage, left eye; I11.0 Hypertensive heart disease with heart failure; Z87.891 Personal history of nicotine dependence; Z86.73 Personal history of transient ischemic attack (TIA), and cerebral infarction without residual deficits; K59.00 Constipation, unspecified; R23.3 Spontaneous ecchymoses; R79.1 Abnormal coagulation profile
CPT/HCPCS: 36415; 71010-TC; 71250-TC; 80053; 82272; 82550; 82607; 82728; 82746; 83540; 83735; 83883; 84155; 84165; 84466; 84484; 84550; 85025; 85044; 85610; 87040; 87070; 87081; 87205; 87899; 93005; 93010; 93306-TC; 94640; 97116-GP; 97161-GP; 99284-25; J1756

== ENCOUNTER 2017-06-14 15:15 | Inpatient (IN) | payer OTHER ==
--- NOTE | 2017-06-14 15:39 | PDOC ---
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 She relates her symptoms to her CHF but states that her pain radiates to her back which is new. She denies any fevers or chills, nausea, vomiting, diarrhea, cough, or urinary symptoms. 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 [employer] Comp[employer] Inspector: Brian Hernandez <Margarita Chávez - Last Filed: 06/14/17 18:25> <Angel Collins - Last Filed: 06/14/17 18:29> - General Chief Complaint: Chest Pain Stated Complaint: CHEST PAIN/SOB Time Seen by Provider: 06/14/17 15:38 Past History <Margarita Chávez - Last Filed: 06/14/17 18:25> - Past Medical History Anemia: Yes Asthma: Yes Cancer: No Cardiac Disorders: No CVA: Yes COPD: Yes CHF: Yes Dementia: No Diabetes: No GI Disorders: No Disorders: No HTN: Yes Hypercholesterolemia: Yes Liver Disease: No Seizures: No Thyroid Disease: No - Surgical History Cardiac Surgery: No Neurologic Surgery: No Orthopedic Surgery: Yes - Immunization History Immunization Up to Date: Yes - Psycho/Social/Smoking Cessation Hx Anxiety: No Suicidal Ideation: No Smoking Status: No Smoking History: Former smoker Have you smoked in the past 12 months: No Number of Cigarettes Smoked Daily: 0 If you are a former smoker, when did you quit?: 1998 Cigars Per Day: 5 Information on smoking cessation initiated: No 'Breaking Loose' booklet given: 11/20/13 Hx Alcohol Use: No Drug/Substance Use Hx: No Substance Use Type: None Hx Substance Use Treatment: No <Angel Collins - Last Filed: 06/14/17 18:29> - Past Medical History Allergies/Adverse Reactions: Allergies Allergy/AdvReac Type Severity Reaction Status Date / Time No Known Allergies Allergy Verified 06/14/17 15:30 Home Medications: Ambulatory Orders Mometasone Furoate [Nasonex] 1 - 2 inh NS PRN 03/29/14 Olmesartan/Hydrochlorothiazide [Benicar Hct 20-12.5 mg Tablet] 1 each PO DAILY 01/21/14 Promethazine/Phenyleph/Codeine [Promethazine Vc-Codeine Syrup] 120 ml PO PRN Aspirin [ASA -] 81 mg PO DAILY #30 tab.chew 08/03/14 Cholecalciferol (Vitamin D3) [Vitamin D3] 2,000 unit PO DAILY #30 capsule Docusate Sodium [Colace -] 200 mg PO PRN #30 capsule 08/03/14 Miconazole Nitrate [Miconazole Nitrate -] 1 applic TP PRN #7 tube 08/03/14 Clobetasol Propionate/Emoll [Olux-E 0.05% Foam] 100 gm TP PRN 11/20/15 Acetaminophen [Tylenol] 650 mg PO TID PRN 11/23/15 Colchicine [Colcrys] 0.6 mg PO DAILY PRN 11/23/15 Levalbuterol Tartrate [Xopenex Hfa] 15 gm IH BID 11/23/15 Nystatin Oral Suspension - [Nystatin Oral Susp 004322 Units/5 ML -] 5 ml PO BID 11/23/15 Olopatadine HCl [Patanase] 665 mcg NS DAILY 11/23/15 Albuterol 0.083% Nebulizer Claudia [Ventolin 0.083% Nebulizer Soln -] 1 neb NEB QID PRN #7 vial 11/26/15 Budesonide/Formeterol Fumarate [SYMBICORT 160/4.5mcg -] 1 inh PO BID #7 inhaler 11/26/15 Cyclosporine [Restasis] 1 each OP BID #30 droperette 11/26/15 Ferrous Sulfate [Feosol] 325 mg PO TID #30 ud 11/26/15 Furosemide [Lasix -] 20 mg PO BID #60 tablet 11/26/15 Guaifenesin AC [Robitussin AC -] 5 ml PO Q6H PRN #30 liquid 11/26/15 Meclizine HCl [Antivert -] 12.5 mg PO BID #30 tablet 11/26/15 Nifedipine ER [Procardia XL -] 30 mg PO DAILY #30 tab.er.24 11/26/15 Pantoprazole Sodium [Protonix -] 40 mg PO DAILY #30 tablet.ec 11/26/15 Rosuvastatin Calcium [Crestor] 10 mg PO HS #30 tablet 11/26/15 Tiotropium [place] [Spiriva] 1 inh PO DAILY #7 inh 11/26/15 Prednisone [Deltasone -] 10 mg PO DAILY 06/14/17 Warfarin Na [Coumadin -] 3 mg PO HS 06/14/17 Review of Systems - Review of Systems Able to Perform ROS?: Yes Comments:: 06/14/17 16:01 GENERAL/CONSTITUTIONAL: No fever or chills. No weakness. HEAD, EYES, EARS, NOSE AND THROAT: No change in vision. No ear pain or discharge. No sore throat. CARDIOVASCULAR: Present: Chest pain, SOB RESPIRATORY: No cough, wheezing, or hemoptysis. GASTROINTESTINAL: No nausea, vomiting, diarrhea or constipation. GENITOURINARY: No dysuria, frequency, or change in urination. MUSCULOSKELETAL: No joint or muscle swelling or pain. No neck or back pain. SKIN: No rash NEUROLOGIC: No headache, vertigo, loss of consciousness, or change in strength/ sensation. ENDOCRINE: No increased thirst. No abnormal weight change. HEMATOLOGIC/LYMPHATIC: No anemia, easy bleeding, or history of blood clots. ALLERGIC/IMMUNOLOGIC: No hives or skin allergy. All Other Systems: Reviewed and Negative <Margarita Chávez - Last Filed: 06/14/17 18:25> *Physical Exam - Vital Signs Last Vital Signs Temp Pulse Resp BP Pulse Ox 128 H 18 161/87 95 06/14/17 15:18 06/14/17 15:18 06/14/17 15:18 06/14/17 15:18 - Physical Exam Comments: 06/14/17 16:02 GENERAL: Awake, alert, and fully oriented, in no acute distress HEAD: No signs of trauma EYES: PERRLA, EOMI, sclera anicteric, conjunctiva clear ENT: Auricles normal inspection, hearing grossly normal, nares patent, oropharynx clear without exudates. Moist mucosa NECK: Positive JVD, Normal ROM, supple, no lymphadenopathy, or masses LUNGS: Breath sounds equal. Bilateral rales at the bases HEART: Regular rate and rhythm, normal S1 and S2, no murmurs, rubs or gallops ABDOMEN: Soft, nontender, normoactive bowel sounds. No guarding, no rebound. No masses EXTREMITIES: Normal range of motion, no edema. No clubbing or cyanosis. No cords, erythema, or tenderness NEUROLOGICAL: Cranial nerves II through XII grossly intact. Normal speech, normal gait SKIN: Warm, Dry, normal turgor, no rashes or lesions noted. <Margarita Chávez - Last Filed: 06/14/17 18:25> - Vital Signs Last Vital Signs Temp Pulse Resp BP Pulse Ox 128 H 18 161/87 95 06/14/17 15:18 06/14/17 15:18 06/14/17 15:18 06/14/17 15:18 <Angel Collins - Last Filed: 06/14/17 18:29> ED Treatment Course - LABORATORY CBC & Chemistry Diagram: 06/14/17 16:50 06/14/17 16:50 <Margarita Chávez - Last Filed: 06/14/17 18:25> - LABORATORY CBC & Chemistry Diagram: 06/14/17 16:50 06/14/17 16:50 <Angel Collins - Last Filed: 06/14/17 18:29> Medical Decision Making - Medical Decision Making 06/14/17 18:[address] call [address] to Dr[address] Graciela Whitlock, covering for Dr. Jerome Springer and call returned promptly. <Margarita Chávez - Last Filed: 06/14/17 18:25> *DC/Admit/Observation/Transfer - Attestations Scribe Attestion: 06/14/17 16:03 Documentation prepared by Margarita Chávez, acting as medical staff specialist for Angel Collins DO. <Margarita Chávez - Last Filed: 06/14/17 18:25> - Discharge Dispostion Admit: Yes - Attestations Physician Attestion: 06/14/17 15:39 I, Dr. Angel Collins, attest that this document has been prepared under my direction and personally reviewed by me in its entirety. I further attest, that it accurately reflects all work, treatment, procedures and medical decision -making performed by me. <Angel Collins - Last Filed: 06/14/17 18:29> Diagnosis at time of Disposition: COPD exacerbation CHF (congestive heart failure) Qualifiers: Congestive heart failure type: combined Congestive heart failure chronicity: acute on chronic Qualified Code(s): I50.43 - Acute on chronic combined systolic (congestive) and diastolic (congestive) heart failure - Discharge Dispostion Condition at time of disposition: Improved - Referrals Referrals: Jerome Springer MD [Primary Care Provider] -
[2017-06-14] MEDS ORDERED: ALBUTEROL SO4 0.083% IH SOL 2.5 MG/3 ML VIAL.NEB. NEB ONE ×2 (16:15→16:21)
[2017-06-14] MEDS ORDERED: ALBUTEROL SO4 2.5/IPRATROPIUM 0.5 INH SOL 3 ML VIAL.NEB. NEB ONE ×2 (16:15→16:22)
[2017-06-14] MEDS ORDERED: methylPREDNISolone NA SUCC 125 MG/2 ML VIAL IVPB ONE (16:15)
[2017-06-14] MEDS ORDERED: FUROSEMIDE 40 MG/4 ML INJECTABLE VIAL IVPUSH ONE (16:15)
[2017-06-14] MEDS ORDERED: FUROSEMIDE 40 MG/4 ML INJECTABLE VIAL ONE (16:22)
[2017-06-14] MEDS ORDERED: methylPREDNISolone NA SUCC 125 MG/2 ML VIAL ONE (17:04)
[2017-06-14 17:12] LABS: INR 2.66 (0.82-1.09); PROTHROMBIN TIME (PATIENT) 29.9 SEC (9.98-11.88)
[2017-06-14 17:44] LABS: BASOPHIL 0.5 % (0-2.0); EOSINOPHIL 0.6 % (0-4.5); MCH 22.3 pg (25.7-33.7); MCHC 29.2 g/dl (32.0-36.0); MEAN CELL VOLUME 76.5 fl (80-96); MEAN PLT VOLUME 9.7 fl (7.5-11.1); NEUTROPHILS 90.6 % (42.8-82.8); PLATELET COUNT 229 K/MM3 (134-434); RDW 16.4 % (11.6-15.6)
[2017-06-14] MEDS ORDERED: LEVOFLOXACIN 750 MG IVPB 150 ML IVPB ONE ×2 (18:28→18:33)
[2017-06-14 18:57] LABS: ALBUMIN 3.9 g/dl (3.4-5.0); ANION GAP 6 (8-16); BILIRUBIN,TOTAL 0.4 mg/dL (0.2-1.0); CO2 35 mmol/L (21-32); CREATININE 1.3 mg/dL (0.55-1.02); GLUCOSE,RANDOM 147 mg/dL (74-106); SGOT/AST 17 U/L (15-37); SGPT/ALT 28 U/L (12-78)
[2017-06-14 19:00] LABS: ALK PHOS 75 U/L (45-117); CPK 152 IU/L (26-192); TROPONIN I 0.02 ng/ml (0.00-0.05)
[2017-06-14 19:10] LABS: ARTERIAL BLOOD GAS BASE EXCESS 7.5 meq/l (-2-2); ARTERIAL BLOOD GAS HCO3 33.4 meq/L (22-26); ARTERIAL BLOOD GAS PO2 99.3 mmHg (80-100); ARTERIAL BLOOD GAS pH 7.38 (7.35-7.45)
[2017-06-14 19:11] LABS: ART PUNCT SITE RIGHT BRACHIAL; LPM/O2% 3.5 LPM; METHEMOGLOBIN 0.4 % (0.4-1.5); PT. ON O2? YES; TYPE OF O2 NASAL O2
[2017-06-15] MEDS ORDERED: ACETAMINOPHEN 325 MG TABLET (FP) PO PRN (02:55)
[2017-06-15] MEDS ORDERED: AZITHROMYCIN IVPB 250 ML IVPB ONE (02:59)
[2017-06-15] MEDS: FERROUS SO4 325 MG TABLET (FP) PO SCH ×3 (06:25→22:04)
[2017-06-15] MEDS ORDERED: FERROUS SO4 325 MG TABLET (FP) ONE (06:43)
[2017-06-15 07:50] LABS: BASOPHIL 0.4 % (0-2.0); EOSINOPHIL 0.1 % (0-4.5); MCH 22.2 pg (25.7-33.7); MCHC 29.1 g/dl (32.0-36.0); MEAN CELL VOLUME 76.1 fl (80-96); MEAN PLT VOLUME 8.6 fl (7.5-11.1); NEUTROPHILS 86.9 % (42.8-82.8); PLATELET COUNT 257 K/MM3 (134-434); RDW 15.7 % (11.6-15.6); WHITE BLOOD COUNT 17.1 K/mm3 (4.0-10.0)
[2017-06-15 08:19] LABS: ALBUMIN 3.8 g/dl (3.4-5.0); ANION GAP 5 (8-16); BILIRUBIN,TOTAL 0.4 mg/dL (0.2-1.0); CALCIUM 8.9 mg/dL (8.5-10.1); CO2 39 mmol/L (21-32); CREATININE 1.2 mg/dL (0.55-1.02); GLUCOSE,RANDOM 128 mg/dL (74-106); SGOT/AST 17 U/L (15-37); SGPT/ALT 26 U/L (12-78)
[2017-06-15 08:21] LABS: ALK PHOS 64 U/L (45-117); TOT PROT 6.7 g/dl (6.4-8.2)
[2017-06-15] MEDS ORDERED: ACETAMINOPHEN 325 MG TABLET (FP) ONE (08:43)
[2017-06-15] MEDS: HYDROCHLOROTHIAZIDE 12.5 MG CAPSULE (FP) PO SCH (09:43)
[2017-06-15] MEDS: PANTOPRAZOLE 40 MG TABLET (FP) PO SCH (09:43)
[2017-06-15] MEDS: FUROSEMIDE 40 MG/4 ML INJECTABLE VIAL IVPUSH SCH (09:43)
[2017-06-15] MEDS: ASPIRIN 81 MG CHEWABLE TABLETS PO SCH (09:43)
[2017-06-15] MEDS: NIFEdipine E.R. 30 MG TABLET (FP) PO SCH (09:43)
[2017-06-15] MEDS: BUDESONIDE/FORMETEROL FUMARATE 160/4.5 mcg INHALER IH SCH ×2 (09:44→22:02)
[2017-06-15] MEDS ORDERED: methylPREDNISolone NA SUCC 40 MG/1 ML VIAL ONE (09:48)
[2017-06-15] MEDS ORDERED: CEFTRIAXONE 50 ML ONE (09:48)
[2017-06-15 10:23] LABS: CPK 163 IU/L (26-192); TROPONIN I < 0.02 ng/ml (0.00-0.05)
[2017-06-15] MEDS: methylPREDNISolone NA SUCC 40 MG/1 ML VIAL IVPB SCH ×2 (10:30→17:25)
[2017-06-15] MEDS: CEFTRIAXONE 1 GM in DEXTROSE 5%-WATER - 50 ML IVPB SCH (10:30)
[2017-06-15] MEDS: VALSARTAN 160 MG TABLET (UD) PO SCH (10:30)
[2017-06-15] MEDS: ACLIDINIUM BROMIDE 400 MCG/INH AERO.POWD IH SCH ×2 (10:30→22:02)
--- NOTE | 2017-06-15 10:40 | CON.CARD ---
Consult Consult Specialty:: Cardiology Referred by:: Dr. Whitlock Reason for Consultation:: chest pain, sob - History of Present Illness Chief Complaint: back pain, chest pain, sob History of Present Illness: 67 year old woman with a history of HTN, HLD, normal coronary arteries on cardiac cath 2013, chronic diastolic chf, COPD, pulm HTN, h/o Pulmonary embolism , CVA on coumadin admitted with back pain, chest pain, sob. Pt. seen and examined today in nad. Pt. states that her symptoms have been going on for the past few days. she has noticed intermittent b/l LE edema which is currently improved. she states that she denies pnd, orthopnea. no lightheadedness, dizziness, syncope, or near syncope. also notes abd discomfort. 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 Cardio/Vascular: Yes: CHF (chronic diastolic), HTN, Hyperlipdemia Pulmonary: Yes: COPD, O2 Dependent, Pulmonary Embolus, Other (pulmonary HTN) - Alcohol/Substance Use Hx Alcohol Use: No - Smoking History Smoking history: Former smoker Have you smoked in the past 12 months: No Aproximately how many cigarettes per day: 0 If you are a former smoker, when did you quit?: 1998 - Social History Usual Living Arrangement: Alone History of Recent Travel: No Home Medications - Allergies Allergies/Adverse Reactions: Allergies Allergy/AdvReac Type Severity Reaction Status Date / Time No Known Allergies Allergy Verified 06/14/17 15:30 - Home Medications Home Medications: Ambulatory Orders Mometasone Furoate [Nasonex] 1 - 2 inh NS PRN 01/21/14 Olmesartan/Hydrochlorothiazide [Benicar Hct 20-12.5 mg Tablet] 1 each PO DAILY 01/21/14 Promethazine/Phenyleph/Codeine [Promethazine Vc-Codeine Syrup] 120 ml PO PRN Aspirin [ASA -] 81 mg PO DAILY #30 tab.chew 08/03/14 Cholecalciferol (Vitamin D3) [Vitamin D3] 2,000 unit PO DAILY #30 capsule Docusate Sodium [Colace -] 200 mg PO PRN #30 capsule 08/03/14 Miconazole Nitrate [Miconazole Nitrate -] 1 applic TP PRN #7 tube 08/03/14 Clobetasol Propionate/Emoll [Olux-E 0.05% Foam] 100 gm TP PRN 11/20/15 Acetaminophen [Tylenol] 650 mg PO TID PRN 11/23/15 Colchicine [Colcrys] 0.6 mg PO DAILY PRN 11/23/15 Levalbuterol Tartrate [Xopenex Hfa] 15 gm IH BID 11/23/15 Nystatin Oral Suspension - [Nystatin Oral Susp 930608 Units/5 ML -] 5 ml PO BID 11/23/15 Olopatadine HCl [Patanase] 665 mcg NS DAILY 11/23/15 Albuterol 0.083% Nebulizer Claudia [Ventolin 0.083% Nebulizer Soln -] 1 neb NEB QID PRN #7 vial 11/26/15 Budesonide/Formeterol Fumarate [SYMBICORT 160/4.5mcg -] 1 inh PO BID #7 inhaler 11/26/15 Cyclosporine [Restasis] 1 each OP BID #30 droperette 11/26/15 Ferrous Sulfate [Feosol] 325 mg PO TID #30 ud 11/26/15 Furosemide [Lasix -] 20 mg PO BID #60 tablet 11/26/15 Guaifenesin AC [Robitussin AC -] 5 ml PO Q6H PRN #30 liquid 11/26/15 Meclizine HCl [Antivert -] 12.5 mg PO BID #30 tablet 11/26/15 Nifedipine ER [Procardia XL -] 30 mg PO DAILY #30 tab.er.24 11/26/15 Pantoprazole Sodium [Protonix -] 40 mg PO DAILY #30 tablet.ec 11/26/15 Rosuvastatin Calcium [Crestor] 10 mg PO HS #30 tablet 11/26/15 Tiotropium [place] [Spiriva] 1 inh PO DAILY #7 inh 11/26/15 Prednisone [Deltasone -] 10 mg PO DAILY 06/14/17 Warfarin Na [Coumadin -] 3 mg PO HS 06/14/17 Family Disease History - Family Disease History Family History: Denies Review of Systems - Review of Systems Constitutional: reports: Malaise. denies: No Symptoms, Chills, Diaphoresis, Fever, Lethargy, Loss of Appetite, Night Sweats, Unintentional Wgt. Loss, Weakness, Other Eyes: denies: No Symptoms, Blind Spots, Blurred Vision, Double Vision, Eye Pain , Floaters, Photophobia, Recent Change in Vision, Other HENT: denies: No Symptoms, Difficult Swallowing, Ear Discharge, Ear Pain, Epistaxis, Gingival Bleeding, Hearing Loss, Mouth Swelling, Nasal Congestion, Ocular Prosthesis, Throat Pain, Toothache, Ringing in Ears, Other Neck: denies: No Symptoms, Decreased ROM, Lumps, Pain on Movement, Stiffness, Swollen Glands, Tenderness, Other Cardiovascular: reports: Chest Pain, Edema, Shortness of Breath. denies: No Symptoms, Palpitations, Other Respiratory: reports: Exercise Intolerance, SOB, SOB on Exertion. denies: No Symptoms, Cough, Hemoptysis, Orthopnea, PND, Snoring, Wheezing, Other Gastrointestinal: reports: Abdominal Pain. denies: No Symptoms, Bloating, Constipation, Diarrhea, Dysphagia, Indigestion, Melena, Nausea, Rectal Bleeding , Vomiting, Vomiting Blood, Other Genitourinary: denies: No Symptoms, Burning, Discharge, Dysuria, Flank Pain, Frequency, Hematuria, Incontinence, Lesions, Menses, Pain, Testicular Mass, Testicular Pain, Testicular Swelling, Urgency, Vaginal Bleeding, Other Breasts: denies: No Symptoms Reported, See HPI, Breast Implants, Discharge from Nipple, Lumps, Pain, Skin Changes, Other Musculoskeletal: reports: Back Pain. denies: No Symptoms, Crepitus, Decreased ROM, Extremity Pain, Joint Pain, Joint Swelling, Muscle Pain, Muscle Cramps, Muscle Weakness, Other Integumentary: denies: No Symptoms, Blister, Bruising, Change in Color, Eczema, Erythema, Incision, Lesions, Lump, Pallor, Pruritis, Rash, Wound, Other Neurological: denies: No Symptoms, Change in LOC, Change in Speech, Confusion, Dizziness, Headache, Incoordination, Numbness, Parasthesia, Pre-Existing Deficit , Seizure, Syncope, Tremors, Unsteady Gait, Weakness, Other Endocrine: denies: No Symptoms, Excessive Sweating, Flushing, Increased Hunger, Increased Thirst, Intolerance to Cold, Intolerance to Heat, Unexplained Weight Gain, Unexplained Weight Loss, Other Hematology/Lymphatic: denies: No Symptoms, Easily Bruised, Excessive Bleeding, Swollen Glands, Other Psychiatric: denies: No Symptoms, Altered Sleep Pattern, Anxiety, Depression, Hallucinations, Panic, Paranoia, Suicidal, Other - Risk Factors Known Risk Factors: Yes: Hypercholesterolemia, Hypertension, Physical Inactivity Vital Signs: Vital Signs Temperature 98.4 F 06/14/17 16:00 Pulse Rate 95 H 06/15/17 03:28 Respiratory Rate 18 06/15/17 00:27 Blood Pressure 130/75 06/15/17 00:27 O2 Sat by Pulse Oximetry (%) 98 06/15/17 00:27 Constitutional: Yes: No Distress, Obese Eyes: Yes: Conjunctiva Clear, EOM Intact, PERRL HENT: Yes: Atraumatic, Normocephalic Neck: Yes: Supple, Trachea Midline Respiratory: Yes: Regular, Diminished. No: Rales, Rhonchi, SOB, Wheezes Gastrointestinal: Yes: Normal Bowel Sounds, Soft. No: Distention, Tenderness Cardiovascular: Yes: Tachycardia. No: Regular Rate and Rhythm, Bradycardia, Pulse Irregular, Gallop, Rub, Varicosities, Other JVD: No Carotid Bruit: No PMI: Non-Displaced Heart Sounds: Yes: S1, S2. No: Split S2, S3, S4, Clicks, Gallop, Rub, Bruit Murmur: No: Systolic Murmur, Diastolic Murmur Musculoskeletal: Yes: Back Pain Edema: No Peripheral Pulses WNL: Yes Peripheral Pulses: 2+ Left Doralis Pedis, 2+ Right Dorsalis Pedis Integumentary: Yes: WNL Neurological: Yes: Alert, Oriented Psychiatric: Yes: Alert, Oriented - Other Data Labs, Other Data: CBC, BMP 06/15/17 07:35 06/15/17 07:35 INR, PTT INR 2.66 (0.82-1.09) H 06/14/17 16:50 Troponin, BNP 06/15/17 07:35 Troponin I < 0.02 B-Natriuretic Peptide 173.04 H Troponin, BNP 06/15/17 07:35 Troponin I < 0.02 B-Natriuretic Peptide 173.04 H ekg-sinus tach 144bpm, inf infarct, septal infarct, nsst Echo: Pending, Report Reviewed Prior Cardiac Procedures: Cardiac Catheterization Imaging - Results Chest X-ray: Report Reviewed, Image Reviewed EKG: Report Reviewed, Image Reviewed Other: Report Reviewed, Image Reviewed Assessment/Plan 67 year old woman with a history of HTN, HLD, normal coronary arteries on cardiac cath 2013, chronic diastolic chf, COPD, pulm HTN, h/o Pulmonary embolism , CVA on coumadin admitted with back pain, chest pain, sob. Pt. seen and examined today in nad. Pt. states that her symptoms have been going on for the past few days. she has noticed intermittent b/l LE edema which is currently improved. IMP: Chest pain ADVANCED COPD O2 DEPENDENT WITH ACUTE EXACERBATION CHRONIC HYPOXEMIC RESPIRATORY FAILURE CHronic diastolic CHF PULMONARY HTN H/O PULMONARY EMBOLISM EPISTAXIS/bruising SUPRA-THERAPEUTIC INR REC: Reports some improvement with Lasix, cont Lasix 40mg IV daily for now, but likely stop tomorrow Monitor strict I/Os and daily weights cardiac enzymes wnl, no ischemia on ekg evaluate for infectious source INR therapeutic on admission, PE unlikely Would obtain pulm evaluation ok to dc tele
--- NOTE | 2017-06-15 11:28 | EKG ---
Test Reason : Blood Pressure : / mmHG Vent. Rate : 144 BPM Atrial Rate : 144 BPM P-R Int : 162 ms QRS Dur : 058 ms QT Int : 308 ms P-R-T Axes : 073 -10 033 degrees QTc Int : 476 ms SINUS TACHYCARDIA LOW VOLTAGE QRS INFERIOR INFARCT (CITED ON OR BEFORE 02-MAR-2017) ABNORMAL ECG WHEN COMPARED WITH ECG OF 02-MAR-2017 10:41, VENT. RATE HAS INCREASED Confirmed by BAN ADAMS, CESAR ([id number]) on 06/15/2017 11:27:47 AM Referred By: Confirmed By:CESAR CEVALLOS MD
[2017-06-15 11:59] VITALS: BMI 48.6
[2017-06-15] MEDS: ALBUTEROL SO4 2.5/IPRATROPIUM 0.5 INH SOL 3 ML VIAL.NEB. NEB PRN (15:45)
--- NOTE | 2017-06-15 16:35 | PN ---
Progress Note (short form) - Note Progress Note: PULMONARY CONSULTATION DICTATED 06/15/17 IMP ACUTE ON CHRONIC HYPOXEMIC/HYPERCAPNEIC RESPIRATORY FAILURE COPD END STAGE WITH ACUTE EXACERBATION CHEST PAIN SYNDROME H/O PULMONARY EMBOLISM PULMONARY HTN BACK PAIN LIKELY SCIATICA HTN MORBID OBESITY PLAN INHALED BRONCHODILATORS O2 STEROIDS CARDIOLOGY EVALUATION ANALGESICS DR FOX Problem List - Problems (1) COPD exacerbation Code(s): J44.1 - CHRONIC OBSTRUCTIVE PULMONARY DISEASE W (ACUTE) EXACERBATION (2) Anemia Code(s): D64.9 - ANEMIA, UNSPECIFIED (3) Chest pain Code(s): R07.9 - CHEST PAIN, UNSPECIFIED Qualifiers: Chest pain type: unspecified Qualified Code(s): R07.9 - Chest pain, unspecified (4) Chronic diastolic (congestive) heart failure Code(s): I50.32 - CHRONIC DIASTOLIC (CONGESTIVE) HEART FAILURE (5) Coronary artery disease Code(s): I25.10 - ATHSCL HEART DISEASE OF [place] CORONARY ARTERY W/O ANG PCTRS (6) History of pulmonary embolism Code(s): Z86.711 - PERSONAL HISTORY OF PULMONARY EMBOLISM (7) nursing home current use of anticoagulant Code(s): Z79.01 - FDC (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 OF 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 (8) Obesity Code(s): E66.9 - OBESITY, UNSPECIFIED (9) Pulmonary hypertension Code(s): I27.2 - OTHER SECONDARY PULMONARY HYPERTENSION (10) SOB (shortness of breath) Code(s): R06.02 - SHORTNESS OF BREATH (11) Stroke Code(s): I63.9 - CEREBRAL INFARCTION, UNSPECIFIED (12) Acute on chronic respiratory failure with hypoxia and hypercapnia Code(s): J96.21 - ACUTE AND CHRONIC RESPIRATORY FAILURE WITH HYPOXIA J96.22 - ACUTE AND CHRONIC RESPIRATORY FAILURE WITH HYPERCAPNIA
--- NOTE | 2017-06-15 17:09 | HP ---
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 Cardiovascular: Yes: CHF (chronic diastolic), HTN, Hyperlipdemia Pulmonary: Yes: COPD, O2 Dependent, Pulmonary Embolus, Other (pulmonary HTN) Heme/Onc: Yes: Anemia, Hypercoaguable State - Smoking History Smoking history: Former smoker Have you smoked in the past 12 months: No Aproximately how many cigarettes per day: 0 If you are a former smoker, when did you quit?: 1998 - Alcohol/Substance Use Hx Alcohol Use: No - Social History History of Recent Travel: No Home Medications - Allergies Allergies/Adverse Reactions: Allergies Allergy/AdvReac Type Severity Reaction Status Date / Time No Known Allergies Allergy Verified 06/14/17 15:30 - Home Medications Home Medications: Ambulatory Orders Mometasone Furoate [Nasonex] 1 - 2 inh NS PRN 01/21/14 Olmesartan/Hydrochlorothiazide [Benicar Hct 20-12.5 mg Tablet] 1 each PO DAILY 01/21/14 Promethazine/Phenyleph/Codeine [Promethazine Vc-Codeine Syrup] 120 ml PO PRN Aspirin [ASA -] 81 mg PO DAILY #30 tab.chew 08/03/14 Cholecalciferol (Vitamin D3) [Vitamin D3] 2,000 unit PO DAILY #30 capsule Docusate Sodium [Colace -] 200 mg PO PRN #30 capsule 08/03/14 Miconazole Nitrate [Miconazole Nitrate -] 1 applic TP PRN #7 tube 08/03/14 Clobetasol Propionate/Emoll [Olux-E 0.05% Foam] 100 gm TP PRN 11/20/15 Acetaminophen [Tylenol] 650 mg PO TID PRN 11/23/15 Colchicine [Colcrys] 0.6 mg PO DAILY PRN 11/23/15 Levalbuterol Tartrate [Xopenex Hfa] 15 gm IH BID 11/23/15 Nystatin Oral Suspension - [Nystatin Oral Susp 686369 Units/5 ML -] 5 ml PO BID 11/23/15 Olopatadine HCl [Patanase] 665 mcg NS DAILY 11/23/15 Albuterol 0.083% Nebulizer Claudia [Ventolin 0.083% Nebulizer Soln -] 1 neb NEB QID PRN #7 vial 11/26/15 Budesonide/Formeterol Fumarate [SYMBICORT 160/4.5mcg -] 1 inh PO BID #7 inhaler 11/26/15 Cyclosporine [Restasis] 1 each OP BID #30 droperette 11/26/15 Ferrous Sulfate [Feosol] 325 mg PO TID #30 ud 11/26/15 Furosemide [Lasix -] 20 mg PO BID #60 tablet 11/26/15 Guaifenesin AC [Robitussin AC -] 5 ml PO Q6H PRN #30 liquid 11/26/15 Meclizine HCl [Antivert -] 12.5 mg PO BID #30 tablet 11/26/15 Nifedipine ER [Procardia XL -] 30 mg PO DAILY #30 tab.er.24 11/26/15 Pantoprazole Sodium [Protonix -] 40 mg PO DAILY #30 tablet.ec 11/26/15 Rosuvastatin Calcium [Crestor] 10 mg PO HS #30 tablet 11/26/15 Tiotropium [place] [Spiriva] 1 inh PO DAILY #7 inh 11/26/15 Prednisone [Deltasone -] 10 mg PO DAILY 06/14/17 Warfarin Na [Coumadin -] 3 mg PO HS 06/14/17 Physical Examination Vital Signs: Vital Signs Temperature 98.4 F 06/15/17 15:45 Pulse Rate 101 H 06/15/17 15:45 Respiratory Rate 22 06/15/17 15:45 Blood Pressure 138/75 06/15/17 15:45 O2 Sat by Pulse Oximetry (%) 95 06/15/17 15:19 Labs: CBC, BMP 06/15/17 07:35 06/15/17 07:35
[2017-06-15] MEDS: WARFARIN NA 3 MG TABLET PO SCH (17:25)
[2017-06-15] MEDS ORDERED: PT OWN MED DRAWER 7, Y5N ONE (21:59)
[2017-06-15] MEDS: ROSUVASTATIN CA 10 MG TABLET (FP) PO SCH (22:04)
[2017-06-16] MEDS: methylPREDNISolone NA SUCC 40 MG/1 ML VIAL IVPB SCH ×3 (02:07→17:58)
[2017-06-16] MEDS: ALBUTEROL SO4 2.5/IPRATROPIUM 0.5 INH SOL 3 ML VIAL.NEB. NEB PRN ×3 (05:21→22:16)
[2017-06-16] MEDS: FERROUS SO4 325 MG TABLET (FP) PO SCH ×3 (06:34→22:17)
--- NOTE | 2017-06-16 07:58 | CONS ---
DATE OF CONSULTATION: 06/15/2017 REFERRING PHYSICIAN: Graciela Whitlock MD The patient is a 67-year-old black female known to me from previous hospitalization plus office followup, past medication events, COPD on home O2, 4 L; history of pulmonary emboli, pulmonary hypertension; CVA, left eye; obesity, hypertension, admitted to [facility], [place] with complaint of couple-week history of increasing shortness of breath, chest discomfort. The patient states that a few weeks ago she started developing increasing shortness of breath and occasional cough and wheeze. At that time she placed herself on steroids, which offered initial improvement. After tapering the steroids, she again started getting increasing shortness of breath and difficulty taking deep breath. She also complained of some chest pain radiating to the left side. She describes the pain as pressure-like and occasionally sharp in character. She also has been complaining about back pain which radiates down the left lower extremity. Patient denies any fevers, chills, nausea, hemoptysis. Denies any nausea, vomiting, or diaphoresis. There is no history of recent URI symptoms. 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 SOCIAL HISTORY: History of smoking, quit in 1998. No occupational exposures. REVIEW OF SYSTEMS: Positive orthopnea, positive dyspnea. Occasional cough, occasional wheezing. Positive chest pain, positive back pain. No nausea, no vomiting, no abdominal pain. Positive lower extremity edema. MEDICATIONS: Current medications include: 1. Restasis. 2. Symbicort. 3. Solu-Medrol. 4. Tylenol. 5. Diovan. 6. Ceftriaxone. 7. Coumadin. 8. Antivert. 9. Tudorza. 10. DuoNeb. 11. Colace. 12. Procardia. 13. Crestor. 14. Feosol. 15. Lasix. 16. Aspirin. 17. Protonix. 18. Hydrochlorothiazide. PHYSICAL EXAMINATION: General: The patient is an obese black female, awake, alert, in no acute distress. Vital Signs: She is currently afebrile. Blood pressure is 138/75. Respiratory rate is 22. O2 saturation is 95% on 4 L. HEENT: Exam is normocephalic, atraumatic. Neck: Supple. Heart: Regular, S1, S2. Chest: Transmitted breath sounds bilaterally. Abdomen: Soft. Bowel sounds positive. Extremities: Bilateral lower extremity edema. LABORATORY: WBC is 17.1, hemoglobin 9.4, hematocrit 32.4, with a platelet count of 257,000. INR is 2.66. Blood gas: pH of 7.38, PCO2 of 57, a PO2 of 99, bicarbonate of 33, and a saturation of 98. That is on 3.5 L. Chemistries: BUN is 18, creatinine 1.2. Chest x-ray shows cardiomegaly, but no acute infiltrates or effusions. IMPRESSION: Acute on chronic hypoxemic hypercapnic respiratory failure, likely secondary to: 1. Chronic obstructive pulmonary disease exacerbation. 2. Mild congestive heart failure. 3. Chest pain syndrome. 4. Back pain, likely sciatica. 5. Hypertension. 6. History of pulmonary emboli. 7. Pulmonary hypertension. 8. Chronic kidney disease. PLAN: Continue inhaler bronchodilators, supplemental O2, steroids, cardiology evaluation. Consider workup for sciatica. Analgesics. Thank you. Will followup closely with you. STEPHIE FOX M.D. [id number]
[2017-06-16] MEDS ORDERED: PT OWN MED DRAWER 7, Y5N ONE (09:04)
[2017-06-16] MEDS ORDERED: DEXTROSE 5%-WATER - 50 ML IVPB ONE (09:05)
[2017-06-16] MEDS ORDERED: cefTRIAXone SODIUM 1 GM VIAL ONE (09:05)
[2017-06-16] MEDS: NIFEdipine E.R. 30 MG TABLET (FP) PO SCH (09:22)
[2017-06-16] MEDS: ASPIRIN 81 MG CHEWABLE TABLETS PO SCH (09:22)
[2017-06-16] MEDS: HYDROCHLOROTHIAZIDE 12.5 MG CAPSULE (FP) PO SCH (09:23)
[2017-06-16] MEDS: VALSARTAN 160 MG TABLET (UD) PO SCH (09:23)
[2017-06-16] MEDS: BUDESONIDE/FORMETEROL FUMARATE 160/4.5 mcg INHALER IH SCH ×2 (09:24→22:16)
[2017-06-16] MEDS: ACLIDINIUM BROMIDE 400 MCG/INH AERO.POWD IH SCH ×2 (09:25→22:17)
[2017-06-16] MEDS: FUROSEMIDE 40 MG/4 ML INJECTABLE VIAL IVPUSH SCH (09:26)
[2017-06-16] MEDS: PANTOPRAZOLE 40 MG TABLET (FP) PO SCH (09:26)
[2017-06-16] MEDS: CEFTRIAXONE 1 GM in DEXTROSE 5%-WATER - 50 ML IVPB SCH (11:01)
[2017-06-16] MEDS: DOCUSATE SODIUM 100 MG CAPSULE (FP) PO SCH ×2 (12:29→22:17)
[2017-06-16] MEDS: NYSTATIN POWDER 100,000 UNITS/GM - 15 GM TOPICAL POWDER TP PRN (14:43)
[2017-06-16] MEDS: SODIUM CHLORIDE NASAL SPRAY 44 ML BOTTLE NS PRN (14:43)
--- NOTE | 2017-06-16 15:15 | PN ---
Progress Note, Physician History of Present Illness: pulmonary alert,no significant change,dyspneic,chest discomfort - Current Medication List Current Medications: Active Medications Acetaminophen (Tylenol -) 650 mg PO Q8H PRN PRN Reason: PAIN Last Admin: 06/15/17 08:56 Dose: 650 mg Aclidinium [place] (Tudorza -) 1 puff IH BID [facility] Last Admin: 06/16/17 09:25 Dose: 1 puff Albuterol/Ipratropium (Duoneb -) 1 amp NEB Q6H PRN PRN Reason: SHORTNESS OF BREATH Last Admin: 06/16/17 14:05 Dose: 1 amp Aspirin (Asa -) 81 mg PO DAILY [facility] Last Admin: 06/16/17 09:22 Dose: 81 mg Budesonide/Formoterol Fumarate (Symbicort 160/4.5mcg -) 1 puff IH BID [facility] Last Admin: 06/16/17 09:24 Dose: 1 puff Docusate Sodium (Colace -) 100 mg PO BID [facility] Last Admin: 06/16/17 12:29 Dose: 100 mg Ferrous Sulfate (Feosol -) 325 mg PO TID [facility] Last Admin: 06/16/17 14:40 Dose: 325 mg Furosemide (Lasix Injection -) 40 mg IVPUSH DAILY [facility] Last Admin: 06/16/17 09:26 Dose: 40 mg Hydrochlorothiazide (Hctz -) 12.5 mg PO DAILY [facility] Last Admin: 06/16/17 09:23 Dose: 12.5 mg Ceftriaxone Sodium 1 gm/ (Dextrose) 50 mls @ 100 mls/hr IVPB DAILY [facility] Last Admin: 06/16/17 11:01 Dose: 100 mls/hr Meclizine HCl (Antivert -) 12.5 mg PO Q12H PRN PRN Reason: VERTIGO Methylprednisolone Sodium Succinate (Solu-Medrol -) 40 mg IVPB Q8H-IV [facility] Last Admin: 06/16/17 09:26 Dose: 40 mg Nifedipine (Procardia Xl -) 30 mg PO DAILY [facility] Last Admin: 06/16/17 09:22 Dose: 30 mg Pt's Own Med (Non- Form) (Cyclosporine [Restasis] 1 Each) 1 each OU BID [facility] Nystatin (Nystop Powder -) 1 applic TP BID PRN Last Admin: 06/16/17 14:43 Dose: 1 applic Pantoprazole Sodium (Protonix -) 40 mg PO DAILY [facility] Last Admin: 06/16/17 09:26 Dose: 40 mg Rosuvastatin Calcium (Crestor -) 10 mg PO HS [facility] Last Admin: 06/15/17 22:04 Dose: 10 mg Sodium Chloride ([place] Nasal [place] -) 1 spray NS Q4H PRN PRN Reason: NASAL CONGESTION Last Admin: 06/16/17 14:43 Dose: 1 spray Valsartan (Diovan -) 160 mg PO DAILY [facility] Last Admin: 06/16/17 09:23 Dose: 160 mg Warfarin Sodium (Coumadin -) 3 mg PO DAILY@1800 [facility] Last Admin: 06/15/17 17:25 Dose: 3 mg - Objective Vital Signs: Vital Signs Temperature 99.4 F 06/16/17 14:39 Pulse Rate 100 H 06/16/17 14:39 Respiratory Rate 21 06/16/17 14:39 Blood Pressure 120/62 06/16/17 14:39 O2 Sat by Pulse Oximetry (%) 96 06/16/17 10:45 Constitutional: Yes: Calm, Obese Eyes: Yes: WNL HENT: Yes: WNL Neck: Yes: WNL Cardiovascular: Yes: Regular Rate and Rhythm, S1, S2 Respiratory: Yes: Diminished Gastrointestinal: Yes: Normal Bowel Sounds, Soft Extremities: Yes: WNL Edema: Yes Labs: CBC, BMP Problem List - Problems (1) COPD exacerbation Code(s): J44.1 - CHRONIC OBSTRUCTIVE PULMONARY DISEASE W (ACUTE) EXACERBATION (2) Anemia Code(s): D64.9 - ANEMIA, UNSPECIFIED (3) Chest pain Code(s): R07.9 - CHEST PAIN, UNSPECIFIED Qualifiers: Chest pain type: unspecified Qualified Code(s): R07.9 - Chest pain, unspecified (4) Chronic diastolic (congestive) heart failure Code(s): I50.32 - CHRONIC DIASTOLIC (CONGESTIVE) HEART FAILURE (5) Coronary artery disease Code(s): I25.10 - ATHSCL HEART DISEASE OF [place] CORONARY ARTERY W/O ANG PCTRS (6) History of pulmonary embolism Code(s): Z86.711 - PERSONAL HISTORY OF PULMONARY EMBOLISM (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 Assessment/Plan IMP ACUTE ON CHRONIC HYPOXEMIC/HYPERCAPNEIC RESPIRATORY FAILURE COPD END STAGE WITH ACUTE EXACERBATION CHEST PAIN SYNDROME H/O PULMONARY EMBOLISM PULMONARY HTN BACK PAIN LIKELY SCIATICA HTN MORBID OBESITY PLAN INHALED BRONCHODILATORS O2 STEROIDS ANAL[address] DR FOX Problem List - Problems (1) COPD exacerbation Code(s): J44.1 - CHRONIC OBSTRUCTIVE PULMONARY DISEASE W (ACUTE) EXACERBATION (2) Anemia Code(s): D64.9 - ANEMIA, UNSPECIFIED (3) Chest pain Code(s): R07.9 - CHEST PAIN, UNSPECIFIED Qualifiers: Chest pain type: unspecified Qualified Code(s): R07.9 - Chest pain, unspecified (4) Chronic diastolic (congestive) heart failure Code(s): I50.32 - CHRONIC DIASTOLIC (CONGESTIVE) HEART FAILURE (5) Coronary artery disease Code(s): I25.10 - ATHSCL HEART DISEASE OF [place] CORONARY ARTERY W/O ANG PCTRS (6) History of pulmonary embolism Code(s): Z86.711 - PERSONAL HISTORY OF PULMONARY EMBOLISM (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
--- NOTE | 2017-06-16 17:02 | PN ---
Progress Note, Physician History of Present Illness: seen and examined today in nad. states she feels worse today, more sob and chest tightness. has been urinating a lot with lasix. no overnight events. - Current Medication List Current Medications: Active Medications Acetaminophen (Tylenol -) 650 mg PO Q8H PRN PRN Reason: PAIN Last Admin: 06/15/17 08:56 Dose: 650 mg Aclidinium [place] (Tudorza -) 1 puff IH BID [facility] Last Admin: 06/16/17 09:25 Dose: 1 puff Albuterol/Ipratropium (Duoneb -) 1 amp NEB Q6H PRN PRN Reason: SHORTNESS OF BREATH Last Admin: 06/16/17 14:05 Dose: 1 amp Aspirin (Asa -) 81 mg PO DAILY [facility] Last Admin: 06/16/17 09:22 Dose: 81 mg Budesonide/Formoterol Fumarate (Symbicort 160/4.5mcg -) 1 puff IH BID [facility] Last Admin: 06/16/17 09:24 Dose: 1 puff Docusate Sodium (Colace -) 100 mg PO BID [facility] Last Admin: 06/16/17 12:29 Dose: 100 mg Ferrous Sulfate (Feosol -) 325 mg PO TID [facility] Last Admin: 06/16/17 14:40 Dose: 325 mg Furosemide (Lasix -) 20 mg PO BID@0600,1400 [facility] Hydrochlorothiazide (Hctz -) 12.5 mg PO DAILY [facility] Last Admin: 06/16/17 09:23 Dose: 12.5 mg Ceftriaxone Sodium 1 gm/ (Dextrose) 50 mls @ 100 mls/hr IVPB DAILY [facility] Last Admin: 06/16/17 11:01 Dose: 100 mls/hr Meclizine HCl (Antivert -) 12.5 mg PO Q12H PRN PRN Reason: VERTIGO Methylprednisolone Sodium Succinate (Solu-Medrol -) 40 mg IVPB Q8H-IV [facility] Last Admin: 06/16/17 09:26 Dose: 40 mg Nifedipine (Procardia Xl -) 30 mg PO DAILY [facility] Last Admin: 06/16/17 09:22 Dose: 30 mg Pt's Own Med (Non- Form) (Cyclosporine [Restasis] 1 Each) 1 each OU BID [facility] Nystatin (Nystop Powder -) 1 applic TP BID PRN Last Admin: 06/16/17 14:43 Dose: 1 applic Pantoprazole Sodium (Protonix -) 40 mg PO DAILY [facility] Last Admin: 06/16/17 09:26 Dose: 40 mg Rosuvastatin Calcium (Crestor -) 10 mg PO HS [facility] Last Admin: 06/15/17 22:04 Dose: 10 mg Sodium Chloride ([place] Nasal [place] -) 1 spray NS Q4H PRN PRN Reason: NASAL CONGESTION Last Admin: 06/16/17 14:43 Dose: 1 spray Valsartan (Diovan -) 160 mg PO DAILY [facility] Last Admin: 06/16/17 09:23 Dose: 160 mg Warfarin Sodium (Coumadin -) 3 mg PO DAILY@1800 [facility] Last Admin: 06/15/17 17:25 Dose: 3 mg - Objective Vital Signs: Vital Signs Temperature 99.4 F 06/16/17 14:39 Pulse Rate 100 H 06/16/17 14:39 Respiratory Rate 21 06/16/17 14:39 Blood Pressure 120/62 06/16/17 14:39 O2 Sat by Pulse Oximetry (%) 96 06/16/17 10:45 Constitutional: Yes: No Distress, Calm, Obese Eyes: Yes: Conjunctiva Clear, EOM Intact, PERRL HENT: Yes: Atraumatic, Normocephalic Neck: Yes: Supple, Trachea Midline Cardiovascular: Yes: Regular Rate and Rhythm, S1, S2. No: Bradycardia, Tachycardia, Pulse Irregular, Bruit, JVD, Gallop, Murmur, Rub, S3, S4, Varicosities Respiratory: Yes: Regular, Diminished, On Nasal O2. No: Rales, Rhonchi, SOB, Wheezes Gastrointestinal: Yes: Normal Bowel Sounds, Soft. No: Distention, Tenderness Edema: No Peripheral Pulses WNL: Yes Peripheral Pulses: Left Doralis Pedis: 2+, Right Dorsalis Pedis: 2+ Neurological: Yes: Alert, Oriented Psychiatric: Yes: Alert, Oriented Labs: CBC, BMP 06/15/17 07:35 06/15/17 07:35 INR, PTT INR 2.66 (0.82-1.09) H 06/14/17 16:50 - ....Imaging Chest X-ray: Report Reviewed, Image Reviewed EKG: Report Reviewed, Image Reviewed Other: Report Reviewed, Image Reviewed Assessment/Plan 67 year old woman with a history of HTN, HLD, normal coronary arteries on cardiac cath 2013, chronic diastolic chf, COPD, pulm HTN, h/o Pulmonary embolism , CVA on coumadin admitted with back pain, chest pain, sob. SOB/chest tightness -pt does not appear to be in significant volume overload, clinically, radiographically, and bnp is not significantly elevated -she reports urinating a lot with Lasix but that her symptoms have worsened since yesterday which would not be consistent with CHF -symptoms more likely secondary to AE COPD -would stop IV Lasix and change back to home regimen of Lasix 20mg po bid -pulmonary evaluation appreciated -cardiac cath 2013 showed normal coronary arteries thus less likely her chest tightness is from ischemia, cardiac enzymes were wnl -cont tx of AE COPD -f/up echo that was done today -at this point, no additional planned inpatient cardiac work up H/o PE, pulm HTN, CVA -cont coumadin for goal INR 2-3 HTN-adequately controlled -cont current medical regimen
[2017-06-16] MEDS: WARFARIN NA 3 MG TABLET PO SCH (17:58)
[2017-06-16] MEDS: [UNRECOGNIZED DRUG - REMARK] OU SCH (22:16)
[2017-06-16] MEDS: ROSUVASTATIN CA 10 MG TABLET (FP) PO SCH (22:17)
--- NOTE | 2017-06-16 22:20 | PN ---
Progress Note, Physician History of Present Illness: Pt describes a chest like tightness [place] on [employer] - Current Medication List Current Medications: Active Medications Acetaminophen (Tylenol -) 650 mg PO Q8H PRN PRN Reason: PAIN Last Admin: 06/15/17 08:56 Dose: 650 mg Aclidinium [place] (Tudorza -) 1 puff IH BID [facility] Last Admin: 06/16/17 09:25 Dose: 1 puff Albuterol/Ipratropium (Duoneb -) 1 amp NEB Q6H PRN PRN Reason: SHORTNESS OF BREATH Last Admin: 06/16/17 22:16 Dose: 1 amp Aspirin (Asa -) 81 mg PO DAILY [facility] Last Admin: 06/16/17 09:22 Dose: 81 mg Budesonide/Formoterol Fumarate (Symbicort 160/4.5mcg -) 1 puff IH BID [facility] Last Admin: 06/16/17 09:24 Dose: 1 puff Docusate Sodium (Colace -) 100 mg PO BID [facility] Last Admin: 06/16/17 12:29 Dose: 100 mg Ferrous Sulfate (Feosol -) 325 mg PO TID [facility] Last Admin: 06/16/17 14:40 Dose: 325 mg Furosemide (Lasix -) 20 mg PO BID@0600,1400 [facility] Hydrochlorothiazide (Hctz -) 12.5 mg PO DAILY [facility] Last Admin: 06/16/17 09:23 Dose: 12.5 mg Ceftriaxone Sodium 1 gm/ (Dextrose) 50 mls @ 100 mls/hr IVPB DAILY [facility] Last Admin: 06/16/17 11:01 Dose: 100 mls/hr Meclizine HCl (Antivert -) 12.5 mg PO Q12H PRN PRN Reason: VERTIGO Methylprednisolone Sodium Succinate (Solu-Medrol -) 40 mg IVPB Q8H-IV [facility] Last Admin: 06/16/17 17:58 Dose: 40 mg Nifedipine (Procardia Xl -) 30 mg PO DAILY [facility] Last Admin: 06/16/17 09:22 Dose: 30 mg Pt's Own Med (Non- Form) (Cyclosporine [Restasis] 1 Each) 1 each OU BID [facility] Nystatin (Nystop Powder -) 1 applic TP BID PRN Last Admin: 06/16/17 14:43 Dose: 1 applic Pantoprazole Sodium (Protonix -) 40 mg PO DAILY [facility] Last Admin: 06/16/17 09:26 Dose: 40 mg Rosuvastatin Calcium (Crestor -) 10 mg PO HS [facility] Last Admin: 06/15/17 22:04 Dose: 10 mg Sodium Chloride ([place] Nas[place] -) 1 spray NS Q4H PRN PRN Reason: NASAL CONGESTION Last Admin: 06/16/17 14:43 Dose: 1 spray Valsartan (Diovan -) 160 mg PO DAILY [facility] Last Admin: 06/16/17 09:23 Dose: 160 mg Warfarin Sodium (Coumadin -) 3 mg PO DAILY@1800 [facility] Last Admin: 06/16/17 17:58 Dose: 3 mg - Objective Vital Signs: Vital Signs Temperature 98.2 F 06/16/17 18:00 Pulse Rate 92 H 06/16/17 18:00 Respiratory Rate 16 06/16/17 18:00 Blood Pressure 115/65 06/16/17 18:00 O2 Sat by Pulse Oximetry (%) 96 06/16/17 10:45 Constitutional: Yes: Well Nourished, Obese Neck: Yes: WNL, Supple Cardiovascular: Yes: WNL, Regular Rate and Rhythm Respiratory: Yes: Diminished Gastrointestinal: Yes: WNL, Normal Bowel Sounds, Soft Labs: CBC, BMP 06/15/17 07:35 06/15/17 07:35 INR, PTT INR 2.66 (0.82-1.09) H 06/14/17 16:50 Problem List - Problems (1) COPD exacerbation Assessment/Plan: Cont IV steroids/IV antibxs/nebulizers Monitor glucose Code(s): J44.1 - CHRONIC OBSTRUCTIVE PULMONARY DISEASE W (ACUTE) EXACERBATION (2) Chronic diastolic (congestive) heart failure Assessment/Plan: Acute on chronic diastolic heart failure Cont iv lasix Monitor electrolytes Code(s): I50.32 - CHRONIC DIASTOLIC (CONGESTIVE) HEART FAILURE (3) Acute on chronic respiratory failure with hypoxia and hypercapnia Assessment/Plan: Cardiac vs pulmonary CHF vs COPD Code(s): J96.21 - ACUTE AND CHRONIC RESPIRATORY FAILURE WITH HYPOXIA J96.22 - ACUTE AND CHRONIC RESPIRATORY FAILURE WITH HYPERCAPNIA (4) Anemia Assessment/Plan: Cont feoso4 Monitor H/H Code(s): D64.9 - ANEMIA, UNSPECIFIED (5) Coronary artery disease Code(s): I25.10 - ATHSCL HEART DISEASE OF [place] CORONARY ARTERY W/O ANG PCTRS (6) Hypertension Code(s): I10 - ESSENTIAL (PRIMARY) HYPERTENSION (7) SOB (shortness of breath) Code(s): R06.02 - SHORTNESS OF BREATH
[2017-06-17] MEDS: methylPREDNISolone NA SUCC 40 MG/1 ML VIAL IVPB SCH ×3 (01:04→17:30)
[2017-06-17] MEDS: FUROSEMIDE 20 MG TABLET (FP) PO SCH ×2 (06:00→14:31)
[2017-06-17] MEDS: FERROUS SO4 325 MG TABLET (FP) PO SCH ×3 (06:00→22:06)
[2017-06-17] MEDS: INSULIN SLIDING SCALE (NOVOLOG) 1 VIAL SQ SCH ×4 (07:00→22:06)
[2017-06-17] MEDS: ALBUTEROL SO4 2.5/IPRATROPIUM 0.5 INH SOL 3 ML VIAL.NEB. NEB PRN ×2 (07:34→14:23)
[2017-06-17 07:44] LABS: CALCIUM 8.6 mg/dL (8.5-10.1)
[2017-06-17 07:51] LABS: ALK PHOS 64 U/L (45-117); ANION GAP 8 (8-16); BILIRUBIN,TOTAL 0.4 mg/dL (0.2-1.0); CO2 40 mmol/L (21-32); CREATININE 1.3 mg/dL (0.55-1.02); GLUCOSE,RANDOM 164 mg/dL (74-106); SGOT/AST 13 U/L (15-37); SGPT/ALT 25 U/L (12-78); TOT PROT 7.1 g/dl (6.4-8.2)
[2017-06-17 10:00] LABS: BASOPHIL 0.2 % (0-2.0); MCH 21.7 pg (25.7-33.7); MEAN CELL VOLUME 77.3 fl (80-96); MEAN PLT VOLUME 8.8 fl (7.5-11.1); NEUTROPHILS 88.6 % (42.8-82.8); PLATELET COUNT 216 K/MM3 (134-434); RDW 16.2 % (11.6-15.6); WHITE BLOOD COUNT 17.9 K/mm3 (4.0-10.0)
[2017-06-17] MEDS ORDERED: DEXTROSE 5%-WATER - 50 ML IVPB ONE (10:56)
[2017-06-17] MEDS ORDERED: cefTRIAXone SODIUM 1 GM VIAL ONE (10:56)
[2017-06-17] MEDS: CEFTRIAXONE 1 GM in DEXTROSE 5%-WATER - 50 ML IVPB SCH (10:58)
[2017-06-17] MEDS: BUDESONIDE/FORMETEROL FUMARATE 160/4.5 mcg INHALER IH SCH ×2 (10:59→22:07)
[2017-06-17] MEDS: NIFEdipine E.R. 30 MG TABLET (FP) PO SCH (10:59)
[2017-06-17] MEDS: VALSARTAN 160 MG TABLET (UD) PO SCH (10:59)
[2017-06-17] MEDS: ASPIRIN 81 MG CHEWABLE TABLETS PO SCH (10:59)
[2017-06-17] MEDS: PANTOPRAZOLE 40 MG TABLET (FP) PO SCH (10:59)
[2017-06-17] MEDS: HYDROCHLOROTHIAZIDE 12.5 MG CAPSULE (FP) PO SCH (10:59)
[2017-06-17] MEDS: DOCUSATE SODIUM 100 MG CAPSULE (FP) PO SCH ×2 (10:59→22:06)
[2017-06-17] MEDS: ACLIDINIUM BROMIDE 400 MCG/INH AERO.POWD IH SCH ×2 (11:00→22:07)
[2017-06-17] MEDS: [UNRECOGNIZED DRUG - REMARK] OU SCH ×2 (11:03→22:09)
[2017-06-17] MEDS ORDERED: PT OWN MED DRAWER 7, Y5N ONE ×2 (12:00→21:41)
--- NOTE | 2017-06-17 12:55 | PN ---
Progress Note (short form) - Note Progress Note: PULMONARY KNOWN BY ME FROM PREVIOUS CONSULTATION VSS ANICTERIC SCATTERED EXP RHONCHI S1S2 OBESE SOFT MILD LOWER EXT EDEMA LABS/MEDS/NOTES/IMAGING/MEDS/ REVIEWED IMP ACUTE ON CHRONIC HYPOXEMIC/HYPERCAPNEIC RESPIRATORY FAILURE COPD END STAGE WITH ACUTE EXACERBATION CHEST PAIN SYNDROME H/O PULMONARY EMBOLISM PULMONARY HTN BACK PAIN LIKELY SCIAT[place] HTN MORBID OBESITY PLAN INHALED BRONCHODILATORS O2 STEROIDS ANALGESICS ANTIBIOTICS ANTICOAGULATION Danny ROMERO MD
--- NOTE | 2017-06-17 14:59 | PN ---
Progress Note, Physician History of Present Illness: seen and examined today in nad. states she is feeling better today. still has dyspnea and some chest tightness. pain in R shoulder after reaching for object in the bathroom - Current Medication List Current Medications: Active Medications Acetaminophen (Tylenol -) 650 mg PO Q8H PRN PRN Reason: PAIN Last Admin: 06/15/17 08:56 Dose: 650 mg Aclidinium [place] (Tudorza -) 1 puff IH BID [facility] Last Admin: 06/17/17 11:00 Dose: 1 puff Albuterol/Ipratropium (Duoneb -) 1 amp NEB Q6H PRN PRN Reason: SHORTNESS OF BREATH Last Admin: 06/17/17 14:23 Dose: 1 amp Aspirin (Asa -) 81 mg PO DAILY [facility] Last Admin: 06/17/17 10:59 Dose: 81 mg Budesonide/Formoterol Fumarate (Symbicort 160/4.5mcg -) 1 puff IH BID [facility] Last Admin: 06/17/17 10:59 Dose: 1 puff Docusate Sodium (Colace -) 100 mg PO BID [facility] Last Admin: 06/17/17 10:59 Dose: 100 mg Ferrous Sulfate (Feosol -) 325 mg PO TID [facility] Last Admin: 06/17/17 14:31 Dose: 325 mg Furosemide (Lasix -) 20 mg PO BID@0600,1400 [facility] Last Admin: 06/17/17 14:31 Dose: 20 mg Hydrochlorothiazide (Hctz -) 12.5 mg PO DAILY [facility] Last Admin: 06/17/17 10:59 Dose: 12.5 mg Ceftriaxone Sodium 1 gm/ (Dextrose) 50 mls @ 100 mls/hr IVPB DAILY [facility] Last Admin: 06/17/17 10:58 Dose: 100 mls/hr Insulin Aspart (Novolog Vial Sliding Scale -) 1 vial SQ ACHS [facility] PRN Reason: Protocol Last Admin: 06/17/17 12:16 Dose: Not Given Meclizine HCl (Antivert -) 12.5 mg PO Q12H PRN PRN Reason: VERTIGO Methylprednisolone Sodium Succinate (Solu-Medrol -) 40 mg IVPB Q8H-IV [facility] Last Admin: 06/17/17 10:59 Dose: 40 mg Nifedipine (Procardia Xl -) 30 mg PO DAILY [facility] Last Admin: 06/17/17 10:59 Dose: 30 mg Pt's Own Med (Non- Form) (Cyclosporine [Restasis] 1 Each) 1 each OU BID [facility] Last Admin: 06/17/17 11:03 Dose: 1 each Nystatin (Nystop Powder -) 1 applic TP BID PRN Last Admin: 06/16/17 14:43 Dose: 1 applic Pantoprazole Sodium (Protonix -) 40 mg PO DAILY [facility] Last Admin: 06/17/17 10:59 Dose: 40 mg Rosuvastatin Calcium (Crestor -) 10 mg PO HS [facility] Last Admin: 06/16/17 22:17 Dose: 10 mg Sodium Chloride ([place] Nasal [place] -) 1 spray NS Q4H PRN PRN Reason: NASAL CONGESTION Last Admin: 06/16/17 14:43 Dose: 1 spray Valsartan (Diovan -) 160 mg PO DAILY [facility] Last Admin: 06/17/17 10:59 Dose: 160 mg Warfarin Sodium (Coumadin -) 3 mg PO DAILY@1800 [facility] Last Admin: 06/16/17 17:58 Dose: 3 mg - Objective Vital Signs: Vital Signs Temperature 99.4 F 06/17/17 14:37 Pulse Rate 101 H 06/17/17 14:37 Respiratory Rate 20 06/17/17 14:37 Blood Pressure 122/93 06/17/17 14:37 O2 Sat by Pulse Oximetry (%) 95 06/17/17 11:02 Constitutional: Yes: No Distress, Calm, Obese Eyes: Yes: Conjunctiva Clear, EOM Intact, PERRL HENT: Yes: Atraumatic, Normocephalic Neck: Yes: Supple, Trachea Midline Cardiovascular: Yes: Regular Rate and Rhythm, S1, S2. No: Bradycardia, Tachycardia, Pulse Irregular, Bruit, JVD, Gallop, Murmur, Rub, S3, S4, Varicosities Respiratory: Yes: Regular, Diminished, On Nasal O2, Wheezes. No: Rales, Rhonchi , SOB Gastrointestinal: Yes: Normal Bowel Sounds, Soft. No: Distention, Tenderness Edema: No Peripheral Pulses WNL: Yes Peripheral Pulses: Left Doralis Pedis: 2+, Right Dorsalis Pedis: 2+ Neurological: Yes: Alert, Oriented Psychiatric: Yes: Alert, Oriented Labs: CBC, BMP 06/17/17 06:00 06/17/17 05:50 INR, PTT INR 2.66 (0.82-1.09) H 06/14/17 16:50 - ....Imaging Chest X-ray: Report Reviewed, Image Reviewed EKG: Report Reviewed, Image Reviewed Other: Report Reviewed, Image Reviewed Assessment/Plan 67 year old woman with a history of HTN, HLD, normal coronary arteries on cardiac cath 2013, chronic diastolic chf, COPD, pulm HTN, h/o Pulmonary embolism , CVA on coumadin admitted with back pain, chest pain, sob. SOB/chest tightness-most likely AE COPD -again does not appear to be in significant volume overload, clinically, radiographically, and bnp is not significantly elevated -lasix changed from IV to her home po dose after yesterdays am IV lasix dose -pulmonary evaluation appreciated -cardiac cath 2013 showed normal coronary arteries thus less likely her chest tightness is from ischemia, cardiac enzymes were wnl -cont tx of AE COPD -f/up echo that was completed yesterday, report not in EMR -at this point, no additional planned inpatient cardiac work up H/o PE, pulm HTN, CVA -cont coumadin for goal INR 2-3 HTN-adequately controlled -cont current medical regimen
[2017-06-17 16:24] LABS: INR 3.24 (0.82-1.09); PROTHROMBIN TIME (PATIENT) 36.5 SEC (9.98-11.88)
[2017-06-17] MEDS: WARFARIN NA 3 MG TABLET PO SCH (17:31)
[2017-06-17] MEDS: ROSUVASTATIN CA 10 MG TABLET (FP) PO SCH (22:06)
--- NOTE | 2017-06-17 23:31 | PN ---
Progress Note, Physician History of Present Illness: Pt c/o lt shoulder pain - Current Medication List Current Medications: Active Medications Acetaminophen (Tylenol -) 650 mg PO Q8H PRN PRN Reason: PAIN Last Admin: 06/15/17 08:56 Dose: 650 mg Aclidinium [place] (Tudorza -) 1 puff IH BID [facility] Last Admin: 06/17/17 22:07 Dose: 1 puff Albuterol/Ipratropium (Duoneb -) 1 amp NEB Q6H PRN PRN Reason: SHORTNESS OF BREATH Last Admin: 06/17/17 14:23 Dose: 1 amp Aspirin (Asa -) 81 mg PO DAILY [facility] Last Admin: 06/17/17 10:59 Dose: 81 mg Budesonide/Formoterol Fumarate (Symbicort 160/4.5mcg -) 1 puff IH BID [facility] Last Admin: 06/17/17 22:07 Dose: 1 puff Docusate Sodium (Colace -) 100 mg PO BID [facility] Last Admin: 06/17/17 22:06 Dose: 100 mg Ferrous Sulfate (Feosol -) 325 mg PO TID [facility] Last Admin: 06/17/17 22:06 Dose: 325 mg Furosemide (Lasix -) 20 mg PO BID@0600,1400 [facility] Last Admin: 06/17/17 14:31 Dose: 20 mg Hydrochlorothiazide (Hctz -) 12.5 mg PO DAILY [facility] Last Admin: 06/17/17 10:59 Dose: 12.5 mg Ceftriaxone Sodium 1 gm/ (Dextrose) 50 mls @ 100 mls/hr IVPB DAILY [facility] Last Admin: 06/17/17 10:58 Dose: 100 mls/hr Insulin Aspart (Novolog Vial Sliding Scale -) 1 vial SQ ACHS [facility] PRN Reason: Protocol Last Admin: 06/17/17 22:06 Dose: 4 units Meclizine HCl (Antivert -) 12.5 mg PO Q12H PRN PRN Reason: VERTIGO Methylprednisolone Sodium Succinate (Solu-Medrol -) 40 mg IVPB Q8H-IV [facility] Last Admin: 06/17/17 17:30 Dose: 40 mg Nifedipine (Procardia Xl -) 30 mg PO DAILY [facility] Last Admin: 06/17/17 10:59 Dose: 30 mg Pt's Own Med (Non- Form) (Cyclosporine [Restasis] 1 Each) 1 each OU BID [facility] Last Admin: 06/17/17 22:09 Dose: 1 each Nystatin (Nystop Powder -) 1 applic TP BID PRN Last Admin: 06/16/17 14:43 Dose: 1 applic Pantoprazole Sodium (Protonix -) 40 mg PO DAILY [facility] Last Admin: 06/17/17 10:59 Dose: 40 mg Rosuvastatin Calcium (Crestor -) 10 mg PO HS [facility] Last Admin: 06/17/17 22:06 Dose: 10 mg Sodium Chloride ([place] Nasal [place] -) 1 spray NS Q4H PRN PRN Reason: NASAL CONGESTION Last Admin: 06/16/17 14:43 Dose: 1 spray Valsartan (Diovan -) 160 mg PO DAILY [facility] Last Admin: 06/17/17 10:59 Dose: 160 mg Warfarin Sodium (Coumadin -) 3 mg PO DAILY@1800 [facility] Last Admin: 06/17/17 17:31 Dose: Not Given - Objective Vital Signs: Vital Signs Temperature 98.2 F 06/17/17 18:00 Pulse Rate 94 H 06/17/17 18:00 Respiratory Rate 16 06/17/17 18:00 Blood Pressure 130/67 06/17/17 18:00 O2 Sat by Pulse Oximetry (%) 95 06/17/17 11:02 Constitutional: Yes: Well Nourished HENT: Yes: WNL Neck: Yes: WNL, Supple Cardiovascular: Yes: Pulse Irregular Respiratory: Yes: Wheezes Gastrointestinal: Yes: Normal Bowel Sounds, Soft, Abdomen, Obese Edema: No Labs: CBC, BMP 06/17/17 06:00 06/17/17 05:50 INR, PTT INR 3.24 (0.82-1.09) H 06/17/17 15:30 Problem List - Problems (1) COPD exacerbation Assessment/Plan: Cont IV steroids/IV antibxs/nebulizers Monitor glucose Code(s): J44.1 - CHRONIC OBSTRUCTIVE PULMONARY DISEASE W (ACUTE) EXACERBATION (2) Chronic diastolic (congestive) heart failure Assessment/Plan: Acute on chronic diastolic heart failure Pt now on po lasix Monitor electrolytes Code(s): I50.32 - CHRONIC DIASTOLIC (CONGESTIVE) HEART FAILURE (3) Shoulder pain Assessment/Plan: Xray showed ?rotator cuff tear Will get ortho consult Spoke to pt about STR for dc planning and she refused Code(s): M25.519 - PAIN IN UNSPECIFIED SHOULDER (4) Pulmonary embolus Assessment/Plan: Cont coumadin Monitor pt/inr Code(s): I26.99 - OTHER PULMONARY EMBOLISM WITHOUT ACUTE COR PULMONALE (5) Acute on chronic respiratory failure with hypoxia and hypercapnia Code(s): J96.21 - ACUTE AND CHRONIC RESPIRATORY FAILURE WITH HYPOXIA J96.22 - ACUTE AND CHRONIC RESPIRATORY FAILURE WITH HYPERCAPNIA (6) Anemia Assessment/Plan: Cont feoso4 Monitor H/H Code(s): D64.9 - ANEMIA, UNSPECIFIED (7) Coronary artery disease Code(s): I25.10 - ATHSCL HEART DISEASE OF [place] CORONARY ARTERY W/O ANG PCTRS (8) Hypertension Code(s): I10 - ESSENTIAL (PRIMARY) HYPERTENSION (9) SOB (shortness of breath) Code(s): R06.02 - SHORTNESS OF BREATH (10) Morbid obesity Code(s): E66.01 - MORBID (SEVERE) OBESITY DUE TO EXCESS CALORIES
[2017-06-18] MEDS: methylPREDNISolone NA SUCC 40 MG/1 ML VIAL IVPB SCH ×3 (03:00→17:49)
[2017-06-18] MEDS ORDERED: PT OWN MED DRAWER 7, Y5N ONE ×2 (07:17→10:40)
[2017-06-18] MEDS: INSULIN SLIDING SCALE (NOVOLOG) 1 VIAL SQ SCH ×4 (07:32→21:55)
[2017-06-18] MEDS: FERROUS SO4 325 MG TABLET (FP) PO SCH ×3 (07:33→21:55)
[2017-06-18] MEDS: FUROSEMIDE 20 MG TABLET (FP) PO SCH ×2 (07:33→15:07)
[2017-06-18 08:10] LABS: INR 2.93 (0.82-1.09)
--- NOTE | 2017-06-18 08:37 | CONSULT ---
Consult - text type - Consultation Consultation Note: FULL CONSULT DICTATED IMP: BURSITIS RIGHT SHOULDER WITH CHRONIC ROTATOR CUFF TEAR PLAN: WARM SOAKS, NSAIDS IF MEDICALLY OK. IF SYMPTOMS PERSIST I WILL GIVE HER A CORTISONE INJECTION AN OUTPATIENT
--- NOTE | 2017-06-18 09:14 | CONS ---
ORTHOPEDIC CONSULTATION/[facility] DATE OF CONSULTATION: 06/18/2017 HISTORY OF PRESENT ILLNESS: Patient is a 67-year-old female with past medical history significant for COPD on O2 at home, a history of pulmonary embolus, stroke, and obesity, who was admitted to the hospital for shortness of breath. While in the bathroom, she reached to 1 of the bars to try to lift her, and since then, her right shoulder has been bothering her. Prior to that, patient denies problems with her shoulder. No real recent fall or trauma. PHYSICAL EXAMINATION: SHOULDER: She has a positive impingement sign on forward flexion and internal rotation and increased forward flexion. Good strength with thumb-down induction and external rotation and liftoff. Crepitus with range of motion of the shoulder. Nontender clavicle, AC joint, and acromion. Full range of motion elbow, wrist, and fingers. Active range of motion is only about 120 degrees of forward flexion of the shoulder and external rotation to about neutral and marked decreased internal rotation. X-rays show high-riding humeral head consistent with chronic rotator cuff tear. IMPRESSION: Chronic right rotator cuff tear, right shoulder with acute bursitis. PLAN: Warm soaks, nonsteroidals if medically able, and if the patient's symptoms do not improve, in the future, I would give her a lidocaine/depo injection. CAR NARANJO M.D. MARY [id number]
[2017-06-18] MEDS ORDERED: cefTRIAXone SODIUM 1 GM VIAL ONE (10:40)
[2017-06-18] MEDS ORDERED: DEXTROSE 5%-WATER - 50 ML IVPB ONE (10:40)
[2017-06-18] MEDS: CEFTRIAXONE 1 GM in DEXTROSE 5%-WATER - 50 ML IVPB SCH (10:44)
[2017-06-18] MEDS: HYDROCHLOROTHIAZIDE 12.5 MG CAPSULE (FP) PO SCH (10:45)
[2017-06-18] MEDS: PANTOPRAZOLE 40 MG TABLET (FP) PO SCH (10:45)
[2017-06-18] MEDS: DOCUSATE SODIUM 100 MG CAPSULE (FP) PO SCH ×2 (10:46→21:55)
[2017-06-18] MEDS: BUDESONIDE/FORMETEROL FUMARATE 160/4.5 mcg INHALER IH SCH ×2 (10:46→21:56)
[2017-06-18] MEDS: ACLIDINIUM BROMIDE 400 MCG/INH AERO.POWD IH SCH ×2 (10:46→21:56)
[2017-06-18] MEDS: VALSARTAN 160 MG TABLET (UD) PO SCH (10:46)
[2017-06-18] MEDS: ASPIRIN 81 MG CHEWABLE TABLETS PO SCH (10:46)
[2017-06-18] MEDS: NIFEdipine E.R. 30 MG TABLET (FP) PO SCH (10:46)
[2017-06-18] MEDS: [UNRECOGNIZED DRUG - REMARK] OU SCH ×2 (10:47→21:57)
[2017-06-18] MEDS: ALBUTEROL SO4 2.5/IPRATROPIUM 0.5 INH SOL 3 ML VIAL.NEB. NEB PRN (10:51)
--- NOTE | 2017-06-18 12:40 | PN ---
Progress Note, Physician History of Present Illness: PULMOARY ALERT,NO CHANGE STILL VERY DYSPNEIC WITH MIN EXERTION - Current Medication List Current Medications: Active Medications Acetaminophen (Tylenol -) 650 mg PO Q8H PRN PRN Reason: PAIN Last Admin: 06/15/17 08:56 Dose: 650 mg Aclidinium [place] (Tudorza -) 1 puff IH BID [facility] Last Admin: 06/18/17 10:46 Dose: 1 puff Albuterol/Ipratropium (Duoneb -) 1 amp NEB Q6H PRN PRN Reason: SHORTNESS OF BREATH Last Admin: 06/18/17 10:51 Dose: 1 amp Aspirin (Asa -) 81 mg PO DAILY [facility] Last Admin: 06/18/17 10:46 Dose: 81 mg Budesonide/Formoterol Fumarate (Symbicort 160/4.5mcg -) 1 puff IH BID [facility] Last Admin: 06/18/17 10:46 Dose: 1 puff Docusate Sodium (Colace -) 100 mg PO BID [facility] Last Admin: 06/18/17 10:46 Dose: 100 mg Ferrous Sulfate (Feosol -) 325 mg PO TID [facility] Last Admin: 06/18/17 07:33 Dose: 325 mg Furosemide (Lasix -) 20 mg PO BID@0600,1400 [facility] Last Admin: 06/18/17 07:33 Dose: 20 mg Hydrochlorothiazide (Hctz -) 12.5 mg PO DAILY [facility] Last Admin: 06/18/17 10:45 Dose: 12.5 mg Ceftriaxone Sodium 1 gm/ (Dextrose) 50 mls @ 100 mls/hr IVPB DAILY [facility] Last Admin: 06/18/17 10:44 Dose: 100 mls/hr Insulin Aspart (Novolog Vial Sliding Scale -) 1 vial SQ ACHS [facility] PRN Reason: Protocol Last Admin: 06/18/17 12:30 Dose: Not Given Meclizine HCl (Antivert -) 12.5 mg PO Q12H PRN PRN Reason: VERTIGO Methylprednisolone Sodium Succinate (Solu-Medrol -) 40 mg IVPB Q8H-IV [facility] Last Admin: 06/18/17 10:43 Dose: 40 mg Nifedipine (Procardia Xl -) 30 mg PO DAILY [facility] Last Admin: 06/18/17 10:46 Dose: 30 mg Pt's Own Med (Non- Form) (Cyclosporine [Restasis] 1 Each) 1 each OU BID [facility] Last Admin: 06/18/17 10:47 Dose: 1 each Nystatin (Nystop Powder -) 1 applic TP BID PRN Last Admin: 06/16/17 14:43 Dose: 1 applic Pantoprazole Sodium (Protonix -) 40 mg PO DAILY [facility] Last Admin: 06/18/17 10:45 Dose: 40 mg Rosuvastatin Calcium (Crestor -) 10 mg PO HS [facility] Last Admin: 06/17/17 22:06 Dose: 10 mg Sodium Chloride ([place]al [place] -) 1 spray NS Q4H PRN PRN Reason: NASAL CONGESTION Last Admin: 06/16/17 14:43 Dose: 1 spray Valsartan (Diovan -) 160 mg PO DAILY [facility] Last Admin: 06/18/17 10:46 Dose: 160 mg Warfarin Sodium (Coumadin -) 3 mg PO DAILY@1800 [facility] Last Admin: 06/17/17 17:31 Dose: Not Given - Objective Vital Signs: Vital Signs Temperature 99.0 F 06/18/17 06:00 Pulse Rate 80 06/18/17 10:50 Respiratory Rate 18 06/18/17 06:00 Blood Pressure 140/74 06/18/17 06:00 O2 Sat by Pulse Oximetry (%) 98 06/18/17 10:50 Constitutional: Yes: Calm, Obese Eyes: Yes: WNL HENT: Yes: WNL Neck: Yes: WNL Cardiovascular: Yes: Regular Rate and Rhythm, S1, S2 Respiratory: Yes: Wheezes (FEW SCATTERED LUPE WHEEZES) Gastrointestinal: Yes: Normal Bowel Sounds, Soft Extremities: Yes: WNL Edema: No Labs: CBC, BMP Problem List - Problems (1) COPD exacerbation Code(s): J44.1 - CHRONIC OBSTRUCTIVE PULMONARY DISEASE W (ACUTE) EXACERBATION (2) Anemia Code(s): D64.9 - ANEMIA, UNSPECIFIED (3) Chest pain Code(s): R07.9 - CHEST PAIN, UNSPECIFIED Qualifiers: Chest pain type: unspecified Qualified Code(s): R07.9 - Chest pain, unspecified (4) Chronic diastolic (congestive) heart failure Code(s): I50.32 - CHRONIC DIASTOLIC (CONGESTIVE) HEART FAILURE (5) Coronary artery disease Code(s): I25.10 - ATHSCL HEART DISEASE OF [place] CORONARY ARTERY W/O ANG PCTRS (6) History of pulmonary embolism Code(s): Z86.711 - PERSONAL HISTORY OF PULMONARY EMBOLISM (7) retirement current use of anticoagulant Code(s): Z79.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 Assessment/Plan IMP ACUTE ON CHRONIC HYPOXEMIC/HYPERCAPNEIC RESPIRATORY FAILURE COPD END STAGE WITH ACUTE EXACERBATION CHEST PAIN SYNDROME IMPROVED H/O PULMONARY EMBOLISM PULMONARY HTN BACK PAIN LIKELY SCIATICA HTN MORBID OBESITY L SHOULDER PAIN PLAN INHALED BRONCHODILATORS O2 STEROIDS ANALGESICS PT DR FOX Problem List - Problems (1) COPD exacerbation Code(s): J44.1 - CHRONIC OBSTRUCTIVE PULMONARY DISEASE W (ACUTE) EXACERBATION (2) Anemia Code(s): D64.9 - ANEMIA, UNSPECIFIED (3) Chest pain Code(s): R07.9 - CHEST PAIN, UNSPECIFIED Qualifiers: Chest pain type: unspecified Qualified Code(s): R07.9 - Chest pain, unspecified (4) Chronic diastolic (congestive) heart failure Code(s): I50.32 - CHRONIC DIASTOLIC (CONGESTIVE) HEART FAILURE (5) Coronary artery disease Code(s): I25.10 - ATHSCL HEART DISEASE OF [place] CORONARY ARTERY W/O ANG PCTRS (6) History of pulmonary embolism Code(s): Z86.711 - PERSONAL HISTORY OF PULMONARY EMBOLISM (7) retirement current use of anticoagulant Code(s): Z79.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
--- NOTE | 2017-06-18 13:43 | PN ---
Progress Note, Physician History of Present Illness: seen and examined today in nad. feels about the same today. chest tightness improved. wheezing continues. - Current Medication List Current Medications: Active Medications Acetaminophen (Tylenol -) 650 mg PO Q8H PRN PRN Reason: PAIN Last Admin: 06/15/17 08:56 Dose: 650 mg Aclidinium [place] (Tudorza -) 1 puff IH BID [facility] Last Admin: 06/18/17 10:46 Dose: 1 puff Albuterol/Ipratropium (Duoneb -) 1 amp NEB Q6H PRN PRN Reason: SHORTNESS OF BREATH Last Admin: 06/18/17 10:51 Dose: 1 amp Aspirin (Asa -) 81 mg PO DAILY [facility] Last Admin: 06/18/17 10:46 Dose: 81 mg Budesonide/Formoterol Fumarate (Symbicort 160/4.5mcg -) 1 puff IH BID [facility] Last Admin: 06/18/17 10:46 Dose: 1 puff Docusate Sodium (Colace -) 100 mg PO BID [facility] Last Admin: 06/18/17 10:46 Dose: 100 mg Ferrous Sulfate (Feosol -) 325 mg PO TID [facility] Last Admin: 06/18/17 07:33 Dose: 325 mg Furosemide (Lasix -) 20 mg PO BID@0600,1400 [facility] Last Admin: 06/18/17 07:33 Dose: 20 mg Hydrochlorothiazide (Hctz -) 12.5 mg PO DAILY [facility] Last Admin: 06/18/17 10:45 Dose: 12.5 mg Ceftriaxone Sodium 1 gm/ (Dextrose) 50 mls @ 100 mls/hr IVPB DAILY [facility] Last Admin: 06/18/17 10:44 Dose: 100 mls/hr Insulin Aspart (Novolog Vial Sliding Scale -) 1 vial SQ ACHS [facility] PRN Reason: Protocol Last Admin: 06/18/17 12:30 Dose: Not Given Meclizine HCl (Antivert -) 12.5 mg PO Q12H PRN PRN Reason: VERTIGO Methylprednisolone Sodium Succinate (Solu-Medrol -) 40 mg IVPB Q8H-IV [facility] Last Admin: 06/18/17 10:43 Dose: 40 mg Nifedipine (Procardia Xl -) 30 mg PO DAILY [facility] Last Admin: 06/18/17 10:46 Dose: 30 mg Pt's Own Med (Non- Form) (Cyclosporine [Restasis] 1 Each) 1 each OU BID [facility] Last Admin: 06/18/17 10:47 Dose: 1 each Nystatin (Nystop Powder -) 1 applic TP BID PRN Last Admin: 06/16/17 14:43 Dose: 1 applic Pantoprazole Sodium (Protonix -) 40 mg PO DAILY [facility] Last Admin: 06/18/17 10:45 Dose: 40 mg Rosuvastatin Calcium (Crestor -) 10 mg PO HS [facility] Last Admin: 06/17/17 22:06 Dose: 10 mg Sodium Chloride ([place] Nasal [place] -) 1 spray NS Q4H PRN PRN Reason: NASAL CONGESTION Last Admin: 06/16/17 14:43 Dose: 1 spray Valsartan (Diovan -) 160 mg PO DAILY [facility] Last Admin: 06/18/17 10:46 Dose: 160 mg Warfarin Sodium (Coumadin -) 3 mg PO DAILY@1800 [facility] Last Admin: 06/17/17 17:31 Dose: Not Given - Objective Vital Signs: Vital Signs Temperature 98.6 F 06/18/17 10:00 Pulse Rate 80 06/18/17 10:50 Respiratory Rate 22 06/18/17 10:00 Blood Pressure 145/75 06/18/17 10:00 O2 Sat by Pulse Oximetry (%) 98 06/18/17 10:50 Constitutional: Yes: No Distress, Calm, Obese Eyes: Yes: Conjunctiva Clear, EOM Intact, PERRL HENT: Yes: Atraumatic, Normocephalic Cardiovascular: Yes: Regular Rate and Rhythm, S1, S2. No: Bradycardia, Tachycardia, Pulse Irregular, Bruit, JVD, Gallop, Murmur, Rub, S3, S4, Varicosities Respiratory: Yes: Regular, Diminished, On Nasal O2, Wheezes. No: Rales, Rhonchi , SOB Gastrointestinal: Yes: Normal Bowel Sounds, Soft. No: Distention, Tenderness Edema: No Peripheral Pulses WNL: Yes Peripheral Pulses: Left Doralis Pedis: 2+, Right Dorsalis Pedis: 2+ Neurological: Yes: Alert, Oriented Psychiatric: Yes: Alert, Oriented Labs: CBC, BMP 06/17/17 06:00 06/17/17 05:50 INR, PTT INR 2.93 (0.82-1.09) H 06/18/17 06:00 - ....Imaging Chest X-ray: Report Reviewed, Image Reviewed EKG: Report Reviewed, Image Reviewed Other: Report Reviewed, Image Reviewed Assessment/Plan 67 year old woman with a history of HTN, HLD, normal coronary arteries on cardiac cath 2013, chronic diastolic chf, COPD, pulm HTN, h/o Pulmonary embolism , CVA on coumadin admitted with back pain, chest pain, sob. SOB/chest tightness-most likely AE COPD -euvolemic -cont po lasix -pulmonary evaluation appreciated -cardiac cath 2013 showed normal coronary arteries thus less likely her chest tightness is from ischemia, cardiac enzymes were wnl -cont tx of AE COPD -f/up echo that was done, report not in EMR -at this point, no additional planned inpatient cardiac work up H/o PE, pulm HTN, CVA -cont coumadin for goal INR 2-3 HTN-adequately controlled -cont current medical regimen
[2017-06-18] MEDS ORDERED: INSULIN (NOVOLOG) ASPART 100 UNITS/ML 10ML VIAL ONE ×2 (17:47→21:27)
[2017-06-18] MEDS: WARFARIN NA 3 MG TABLET PO SCH (18:49)
--- NOTE | 2017-06-18 19:52 | PN ---
Progress Note, Physician History of Present Illness: Pt having lt shoulder pain - Current Medication List Current Medications: Active Medications Acetaminophen (Tylenol -) 650 mg PO Q8H PRN PRN Reason: PAIN Last Admin: 06/15/17 08:56 Dose: 650 mg Aclidinium [place] (Tudorza -) 1 puff IH BID [facility] Last Admin: 06/18/17 10:46 Dose: 1 puff Albuterol/Ipratropium (Duoneb -) 1 amp NEB Q6H PRN PRN Reason: SHORTNESS OF BREATH Last Admin: 06/18/17 10:51 Dose: 1 amp Aspirin (Asa -) 81 mg PO DAILY [facility] Last Admin: 06/18/17 10:46 Dose: 81 mg Budesonide/Formoterol Fumarate (Symbicort 160/4.5mcg -) 1 puff IH BID [facility] Last Admin: 06/18/17 10:46 Dose: 1 puff Docusate Sodium (Colace -) 100 mg PO BID [facility] Last Admin: 06/18/17 10:46 Dose: 100 mg Ferrous Sulfate (Feosol -) 325 mg PO TID [facility] Last Admin: 06/18/17 15:07 Dose: 325 mg Furosemide (Lasix -) 20 mg PO BID@0600,1400 [facility] Last Admin: 06/18/17 15:07 Dose: 20 mg Hydrochlorothiazide (Hctz -) 12.5 mg PO DAILY [facility] Last Admin: 06/18/17 10:45 Dose: 12.5 mg Ceftriaxone Sodium 1 gm/ (Dextrose) 50 mls @ 100 mls/hr IVPB DAILY [facility] Last Admin: 06/18/17 10:44 Dose: 100 mls/hr Insulin Aspart (Novolog Vial Sliding Scale -) 1 vial SQ ACHS [facility] PRN Reason: Protocol Last Admin: 06/18/17 17:48 Dose: 2 units Meclizine HCl (Antivert -) 12.5 mg PO Q12H PRN PRN Reason: VERTIGO Methylprednisolone Sodium Succinate (Solu-Medrol -) 40 mg IVPB Q8H-IV [facility] Last Admin: 06/18/17 17:49 Dose: 40 mg Nifedipine (Procardia Xl -) 30 mg PO DAILY [facility] Last Admin: 06/18/17 10:46 Dose: 30 mg Pt's Own Med (Non- Form) (Cyclosporine [Restasis] 1 Each) 1 each OU BID [facility] Last Admin: 06/18/17 10:47 Dose: 1 each Nystatin (Nystop Powder -) 1 applic TP BID PRN Last Admin: 06/16/17 14:43 Dose: 1 applic Pantoprazole Sodium (Protonix -) 40 mg PO DAILY [facility] Last Admin: 06/18/17 10:45 Dose: 40 mg Rosuvastatin Calcium (Crestor -) 10 mg PO HS [facility] Last Admin: 06/17/17 22:06 Dose: 10 mg Sodium Chloride ([place] Nasal [place] -) 1 spray NS Q4H PRN PRN Reason: NASAL CONGESTION Last Admin: 06/16/17 14:43 Dose: 1 spray Valsartan (Diovan -) 160 mg PO DAILY [facility] Last Admin: 06/18/17 10:46 Dose: 160 mg Warfarin Sodium (Coumadin -) 3 mg PO DAILY@1800 [facility] Last Admin: 06/18/17 18:49 Dose: 3 mg - Objective Vital Signs: Vital Signs Temperature 97.9 F 06/18/17 18:10 Pulse Rate 99 H 06/18/17 18:10 Respiratory Rate 20 06/18/17 18:10 Blood Pressure 157/73 06/18/17 18:10 O2 Sat by Pulse Oximetry (%) 98 06/18/17 10:50 Constitutional: Yes: Well Nourished Neck: Yes: WNL, Supple Cardiovascular: Yes: WNL, Regular Rate and Rhythm Respiratory: Yes: Wheezes Gastrointestinal: Yes: WNL, Normal Bowel Sounds, Soft, Abdomen, Obese Labs: CBC, BMP 06/17/17 06:00 06/17/17 05:50 INR, PTT INR 2.93 (0.82-1.09) H 06/18/17 06:00 Problem List - Problems (1) COPD exacerbation Code(s): J44.1 - CHRONIC OBSTRUCTIVE PULMONARY DISEASE W (ACUTE) EXACERBATION (2) Chronic diastolic (congestive) heart failure Code(s): I50.32 - CHRONIC DIASTOLIC (CONGESTIVE) HEART FAILURE (3) Shoulder pain Code(s): M25.519 - PAIN IN UNSPECIFIED SHOULDER (4) Pulmonary embolus Code(s): I26.99 - OTHER PULMONARY EMBOLISM WITHOUT ACUTE COR PULMONALE (5) Acute on chronic respiratory failure with hypoxia and hypercapnia Code(s): J96.21 - ACUTE AND CHRONIC RESPIRATORY FAILURE WITH HYPOXIA J96.22 - ACUTE AND CHRONIC RESPIRATORY FAILURE WITH HYPERCAPNIA (6) Anemia Code(s): D64.9 - ANEMIA, UNSPECIFIED (7) Coronary artery disease Code(s): I25.10 - ATHSCL HEART DISEASE OF [place] CORONARY ARTERY W/O ANG PCTRS (8) Hypertension Code(s): I10 - ESSENTIAL (PRIMARY) HYPERTENSION (9) SOB (shortness of breath) Code(s): R06.02 - SHORTNESS OF BREATH (10) Morbid obesity Code(s): E66.01 - MORBID (SEVERE) OBESITY DUE TO EXCESS CALORIES
[2017-06-18] MEDS: ROSUVASTATIN CA 10 MG TABLET (FP) PO SCH (21:55)
[2017-06-19] MEDS: methylPREDNISolone NA SUCC 40 MG/1 ML VIAL IVPB SCH ×3 (02:46→17:24)
[2017-06-19] MEDS: FERROUS SO4 325 MG TABLET (FP) PO SCH ×3 (06:32→21:27)
[2017-06-19] MEDS: FUROSEMIDE 20 MG TABLET (FP) PO SCH ×2 (06:32→14:57)
[2017-06-19] MEDS: INSULIN SLIDING SCALE (NOVOLOG) 1 VIAL SQ SCH ×4 (06:33→21:28)
[2017-06-19] MEDS: ALBUTEROL SO4 2.5/IPRATROPIUM 0.5 INH SOL 3 ML VIAL.NEB. NEB PRN (08:09)
[2017-06-19 08:22] LABS: INR 2.8 (0.82-1.09); PROTHROMBIN TIME (PATIENT) 31.4 SEC (9.98-11.88)
[2017-06-19] MEDS ORDERED: cefTRIAXone SODIUM 1 GM VIAL ONE (10:02)
[2017-06-19] MEDS ORDERED: DEXTROSE 5%-WATER - 50 ML IVPB ONE (10:02)
[2017-06-19] MEDS: BUDESONIDE/FORMETEROL FUMARATE 160/4.5 mcg INHALER IH SCH ×2 (10:06→21:28)
[2017-06-19] MEDS: ACLIDINIUM BROMIDE 400 MCG/INH AERO.POWD IH SCH ×2 (10:06→21:28)
[2017-06-19] MEDS: DOCUSATE SODIUM 100 MG CAPSULE (FP) PO SCH ×2 (10:09→21:25)
[2017-06-19] MEDS: CEFTRIAXONE 1 GM in DEXTROSE 5%-WATER - 50 ML IVPB SCH (10:09)
[2017-06-19] MEDS: PANTOPRAZOLE 40 MG TABLET (FP) PO SCH (10:09)
[2017-06-19] MEDS: ASPIRIN 81 MG CHEWABLE TABLETS PO SCH (10:09)
[2017-06-19] MEDS: VALSARTAN 160 MG TABLET (UD) PO SCH (10:09)
[2017-06-19] MEDS: NIFEdipine E.R. 30 MG TABLET (FP) PO SCH (10:09)
[2017-06-19] MEDS: HYDROCHLOROTHIAZIDE 12.5 MG CAPSULE (FP) PO SCH (10:09)
[2017-06-19] MEDS: [UNRECOGNIZED DRUG - REMARK] OU SCH ×2 (10:10→21:25)
--- NOTE | 2017-06-19 11:02 | PN ---
Progress Note, Physician History of Present Illness: seen and examined today in nad. voice is more hoarse today, cont wheezing. chest tightness improving. - Current Medication List Current Medications: Active Medications Acetaminophen (Tylenol -) 650 mg PO Q8H PRN PRN Reason: PAIN Last Admin: 06/15/17 08:56 Dose: 650 mg Aclidinium [place] ([place]or[place] -) 1 puff IH BID [facility] Last Admin: 06/19/17 10:06 Dose: 1 puff Albuterol/Ipratropium (Duoneb -) 1 amp NEB Q6H PRN PRN Reason: SHORTNESS OF BREATH Last Admin: 06/19/17 08:09 Dose: 1 amp Aspirin (Asa -) 81 mg PO DAILY [facility] Last Admin: 06/19/17 10:09 Dose: 81 mg Budesonide/Formoterol Fumarate (Symbicort 160/4.5mcg -) 1 puff IH BID [facility] Last Admin: 06/19/17 10:06 Dose: 1 puff Docusate Sodium (Colace -) 100 mg PO BID [facility] Last Admin: 06/19/17 10:09 Dose: 100 mg Ferrous Sulfate (Feosol -) 325 mg PO TID [facility] Last Admin: 06/19/17 06:32 Dose: 325 mg Furosemide (Lasix -) 20 mg PO BID@0600,1400 [facility] Last Admin: 06/19/17 06:32 Dose: 20 mg Hydrochlorothiazide (Hctz -) 12.5 mg PO DAILY [facility] Last Admin: 06/19/17 10:09 Dose: 12.5 mg Ceftriaxone Sodium 1 gm/ (Dextrose) 50 mls @ 100 mls/hr IVPB DAILY [facility] Last Admin: 06/19/17 10:09 Dose: 100 mls/hr Insulin Aspart (Novolog Vial Sliding Scale -) 1 vial SQ ACHS [facility] PRN Reason: Protocol Last Admin: 06/19/17 06:33 Dose: Not Given Meclizine HCl (Antivert -) 12.5 mg PO Q12H PRN PRN Reason: VERTIGO Methylprednisolone Sodium Succinate (Solu-Medrol -) 40 mg IVPB Q8H-IV [facility] Last Admin: 06/19/17 10:10 Dose: 40 mg Nifedipine (Procardia Xl -) 30 mg PO DAILY [facility] Last Admin: 06/19/17 10:09 Dose: 30 mg Pt's Own Med (Non- Form) (Cyclosporine [Restasis] 1 Each) 1 each OU BID [facility] Last Admin: 06/19/17 10:10 Dose: 1 each Nystatin (Nystop Powder -) 1 applic TP BID [facility]N Last Admin: 06/16/17 14:43 Dose: 1 applic Pantoprazole Sodium (Protonix -) 40 mg PO DAILY [facility] Last Admin: 06/19/17 10:09 Dose: 40 mg Rosuvastatin Calcium (Crestor -) 10 mg PO HS [facility] Last Admin: 06/18/17 21:55 Dose: 10 mg Sodium Chloride ([place] Nasal [place] -) 1 spray NS Q4H PRN PRN Reason: NASAL CONGESTION Last Admin: 06/16/17 14:43 Dose: 1 spray Valsartan (Diovan -) 160 mg PO DAILY [facility] Last Admin: 06/19/17 10:09 Dose: 160 mg Warfarin Sodium (Coumadin -) 3 mg PO DAILY@1800 [facility] Last Admin: 06/18/17 18:49 Dose: 3 mg - Objective Vital Signs: Vital Signs Temperature 98.6 F 06/19/17 06:00 Pulse Rate 61 06/19/17 06:00 Respiratory Rate 12 06/19/17 06:00 Blood Pressure 150/67 06/19/17 06:00 O2 Sat by Pulse Oximetry (%) 97 06/18/17 21:00 Constitutional: Yes: No Distress, Calm, Obese Eyes: Yes: Conjunctiva Clear, EOM Intact HENT: Yes: Atraumatic, Normocephalic Neck: Yes: Supple, Trachea Midline Cardiovascular: Yes: Regular Rate and Rhythm, S1, S2. No: Bradycardia, Tachycardia, Pulse Irregular, Bruit, JVD, Gallop, Murmur, Rub, S3, S4, Varicosities Respiratory: Yes: Regular, Diminished, On Nasal O2, Wheezes. No: Rales, Rhonchi , SOB Gastrointestinal: Yes: Normal Bowel Sounds, Soft. No: Distention, Tenderness Edema: No Peripheral Pulses WNL: Yes Peripheral Pulses: Left Doralis Pedis: 2+, Right Dorsalis Pedis: 2+ Neurological: Yes: Alert, Oriented Psychiatric: Yes: Alert, Oriented Labs: CBC, BMP 06/17/17 06:00 06/17/17 05:50 INR, PTT INR 2.80 (0.82-1.09) H 06/19/17 07:40 - ....Imaging Chest X-ray: Report Reviewed, Image Reviewed EKG: Report Reviewed, Image Reviewed Other: Report Reviewed, Image Reviewed Assessment/Plan 67 year old woman with a history of HTN, HLD, normal coronary arteries on cardiac cath 2013, chronic diastolic chf, COPD, pulm HTN, h/o Pulmonary embolism , CVA on coumadin admitted with back pain, chest pain, sob. SOB/chest tightness-most likely AE COPD -euvolemic -cont po lasix at home dose -pulmonary following -cardiac cath 2013 showed normal coronary arteries thus less likely her chest tightness is from ischemia, cardiac enzymes were wnl -cont tx of AE COPD -f/up echo that was done on this admission, report still not in EMR, although low suspicion for any change -at this point, no additional planned inpatient cardiac work up -close outpatient f/up H/o PE, pulm HTN, CVA -cont coumadin for goal INR 2-3 HTN-adequately controlled -cont current medical regimen
--- NOTE | 2017-06-19 11:43 | PN ---
Progress Note (short form) - Note Progress Note: PULMONARY STILL WITH SOB VSS ANICTERIC SCATTERED EXP RHONCHI S1S2 OBESE SOFT MILD LOWER EXT [facility] LABS/MEDS/NOTES/IMAGING/MEDS/ REVIEWED IMP ACUTE ON CHRONIC HYPOXEMIC/HYPERCAPNEIC RESPIRATORY FAILURE COPD END STAGE WITH ACUTE EXACERBATION CHEST PAIN SYNDROME H/O PULMONARY EMBOLISM PULMONARY HTN BACK PAIN LIKELY SCIATICA HTN MORBID OBESITY PLAN INHALED BRONCHODILATORS O2 STEROIDS SAME DOSE ANALGESICS ANTIBIOTICS ANTICOAGULATION WILL FOLLOW Danny ROMERO MD
[2017-06-19] MEDS ORDERED: ALBUTEROL SO4 0.083% IH SOL 2.5 MG/3 ML VIAL.NEB. NEB SCH (11:45)
[2017-06-19] MEDS ORDERED: INSULIN (NOVOLOG) ASPART 100 UNITS/ML 10ML VIAL ONE (11:54)
[2017-06-19] MEDS: MECLIZINE HCL 12.5 MG TABLET PO PRN (14:59)
[2017-06-19] MEDS: WARFARIN NA 3 MG TABLET PO SCH (17:23)
[2017-06-19] MEDS ORDERED: FLUCONAZOLE 150 MG TABLET PO ONE (20:30)
[2017-06-19] MEDS: ROSUVASTATIN CA 10 MG TABLET (FP) PO SCH (21:25)
[2017-06-19] MEDS: CLOTRIMAZOLE 10 MG TROCHE (FP) PO SCH (21:34)
[2017-06-19] MEDS: ALBUTEROL SO4 0.083% IH SOL 2.5 MG/3 ML VIAL.NEB. NEB SCH (22:40)
--- NOTE | 2017-06-19 22:44 | PN ---
Progress Note, Physician History of Present Illness: Pt having lt shoulder pain - Current Medication List Current Medications: Active Medications Acetaminophen (Tylenol -) 650 mg PO Q8H PRN PRN Reason: PAIN Last Admin: 06/15/17 08:56 Dose: 650 mg Aclidinium [place] (Tudorza -) 1 puff IH BID [facility] Last Admin: 06/19/17 21:28 Dose: 1 puff Albuterol Sulfate (Ventolin 0.083% Nebulizer Soln -) 1 amp NEB TIDR [facility] Last Admin: 06/19/17 22:40 Dose: 1 amp Aspirin (Asa -) 81 mg PO DAILY [facility] Last Admin: 06/19/17 10:09 Dose: 81 mg Budesonide/Formoterol Fumarate (Symbicort 160/4.5mcg -) 1 puff IH BID [facility] Last Admin: 06/19/17 21:28 Dose: 1 puff Clotrimazole (Mycelex Emile's -) 10 mg PO 5XD [facility] Last Admin: 06/19/17 21:34 Dose: 10 mg Docusate Sodium (Colace -) 100 mg PO BID [facility] Last Admin: 06/19/17 21:25 Dose: 100 mg Ferrous Sulfate (Feosol -) 325 mg PO TID [facility] Last Admin: 06/19/17 21:27 Dose: 325 mg Furosemide (Lasix -) 20 mg PO BID@0600,1400 [facility] Last Admin: 06/19/17 14:57 Dose: 20 mg Hydrochlorothiazide (Hctz -) 12.5 mg PO DAILY [facility] Last Admin: 06/19/17 10:09 Dose: 12.5 mg Ceftriaxone Sodium 1 gm/ (Dextrose) 50 mls @ 100 mls/hr IVPB DAILY [facility] Last Admin: 06/19/17 10:09 Dose: 100 mls/hr Insulin Aspart (Novolog Vial Sliding Scale -) 1 vial SQ ACHS SAIMA PRN Reason: Protocol Last Admin: 06/19/17 21:28 Dose: 2 units Meclizine HCl (Antivert -) 12.5 mg PO Q12H PRN PRN Reason: VERTIGO Last Admin: 06/19/17 14:59 Dose: 12.5 mg Methylprednisolone Sodium Succinate (Solu-Medrol -) 40 mg IVPB Q8H-IV [facility] Last Admin: 06/19/17 17:24 Dose: 40 mg Nifedipine (Procardia Xl -) 30 mg PO DAILY [facility] Last Admin: 06/19/17 10:09 Dose: 30 mg Pt's Own Med (Non- Form) (Cyclosporine [Restasis] 1 Each) 1 each OU BID [facility] Last Admin: 06/19/17 21:25 Dose: 1 each Nystatin (Nystop Powder -) 1 applic TP BID PRN Last Admin: 06/16/17 14:43 Dose: 1 applic Pantoprazole Sodium (Protonix -) 40 mg PO DAILY [facility] Last Admin: 06/19/17 10:09 Dose: 40 mg Rosuvastatin Calcium (Crestor -) 10 mg PO HS [facility] Last Admin: 06/19/17 21:25 Dose: 10 mg Sodium Chloride ([place] Nasal [place] -) 1 spray NS Q4H PRN PRN Reason: NASAL CONGESTION Last Admin: 06/16/17 14:43 Dose: 1 spray Valsartan (Diovan -) 160 mg PO DAILY [facility] Last Admin: 06/19/17 10:09 Dose: 160 mg Warfarin Sodium (Coumadin -) 3 mg PO DAILY@1800 [facility] Last Admin: 06/19/17 17:23 Dose: 3 mg - Objective Vital Signs: Vital Signs Temperature 98.2 F 06/19/17 18:00 Pulse Rate 92 H 06/19/17 18:00 Respiratory Rate 20 06/19/17 18:00 Blood Pressure 111/51 06/19/17 18:00 O2 Sat by Pulse Oximetry (%) 98 06/19/17 09:00 Constitutional: Yes: Well Nourished HENT: Yes: WNL Neck: Yes: WNL, Supple Cardiovascular: Yes: WNL, Regular Rate and Rhythm Respiratory: Yes: Wheezes Gastrointestinal: Yes: WNL, Normal Bowel Sounds, Soft, Abdomen, Obese Labs: CBC, BMP 06/17/17 06:00 06/17/17 05:50 INR, PTT INR 2.80 (0.82-1.09) H 06/19/17 07:40 Problem List - Problems (1) COPD exacerbation Code(s): J44.1 - CHRONIC OBSTRUCTIVE PULMONARY DISEASE W (ACUTE) EXACERBATION (2) Chronic diastolic (congestive) heart failure Code(s): I50.32 - CHRONIC DIASTOLIC (CONGESTIVE) HEART FAILURE (3) Shoulder pain Code(s): M25.519 - PAIN IN UNSPECIFIED SHOULDER (4) Pulmonary embolus Code(s): I26.99 - OTHER PULMONARY EMBOLISM WITHOUT ACUTE COR PULMONALE (5) Acute on chronic respiratory failure with hypoxia and hypercapnia Code(s): J96.21 - ACUTE AND CHRONIC RESPIRATORY FAILURE WITH HYPOXIA J96.22 - ACUTE AND CHRONIC RESPIRATORY FAILURE WITH HYPERCAPNIA (6) Anemia Code(s): D64.9 - ANEMIA, UNSPECIFIED (7) Coronary artery disease Code(s): I25.10 - ATHSCL HEART DISEASE OF [place] CORONARY ARTERY W/O ANG PCTRS (8) Hypertension Code(s): I10 - ESSENTIAL (PRIMARY) HYPERTENSION (9) SOB (shortness of breath) Code(s): R06.02 - SHORTNESS OF BREATH (10) Morbid obesity Code(s): E66.01 - MORBID (SEVERE) OBESITY DUE TO EXCESS CALORIES
[2017-06-20] MEDS: methylPREDNISolone NA SUCC 40 MG/1 ML VIAL IVPB SCH ×3 (01:59→17:27)
[2017-06-20] MEDS: ALBUTEROL SO4 0.083% IH SOL 2.5 MG/3 ML VIAL.NEB. NEB SCH ×3 (06:30→22:10)
[2017-06-20] MEDS: FERROUS SO4 325 MG TABLET (FP) PO SCH ×3 (06:53→23:24)
[2017-06-20] MEDS: FUROSEMIDE 20 MG TABLET (FP) PO SCH ×2 (06:53→14:27)
[2017-06-20] MEDS: CLOTRIMAZOLE 10 MG TROCHE (FP) PO SCH ×5 (06:53→23:24)
[2017-06-20] MEDS: INSULIN SLIDING SCALE (NOVOLOG) 1 VIAL SQ SCH ×4 (06:54→23:25)
[2017-06-20] MEDS: MECLIZINE HCL 12.5 MG TABLET PO PRN (06:59)
[2017-06-20 07:06] LABS: INR 3.62 (0.82-1.09); PROTHROMBIN TIME (PATIENT) 40.9 SEC (9.98-11.88)
[2017-06-20 07:12] LABS: BASOPHIL 0.1 % (0-2.0); MCH 21.8 pg (25.7-33.7); MCHC 28.4 g/dl (32.0-36.0); MEAN CELL VOLUME 76.7 fl (80-96); MEAN PLT VOLUME 8.9 fl (7.5-11.1); NEUTROPHILS 89.8 % (42.8-82.8); PLATELET COUNT 207 K/MM3 (134-434); RDW 15.4 % (11.6-15.6); WHITE BLOOD COUNT 16.7 K/mm3 (4.0-10.0)
[2017-06-20 07:20] LABS: ALBUMIN 3.3 g/dl (3.4-5.0); ANION GAP 4 (8-16); CO2 42 mmol/L (21-32); GLUCOSE,RANDOM 157 mg/dL (74-106); SGOT/AST 10 U/L (15-37); SGPT/ALT 25 U/L (12-78)
[2017-06-20 07:22] LABS: ALK PHOS 52 U/L (45-117); BILIRUBIN,TOTAL 0.5 mg/dL (0.2-1.0); CREATININE 1.3 mg/dL (0.55-1.02)
[2017-06-20 08:34] LABS: ANISOCYTOSIS 1+; HYPOCHROMIA 1+; MICROCYTOSIS 1+; PLATELET COMMENT2 NO CLOTTING DETECTED; PLATELET COMMENT3 FEW LARGE PLTS; PLATELET ESTIMATE ADEQUATE (NORMAL); POIKILOCYTOSIS 1+; POLYCHROMASIA 1+
--- NOTE | 2017-06-20 08:52 | PN ---
Progress Note, Physician - Current Medication List Current Medications: Active Medications Acetaminophen (Tylenol -) 650 mg PO Q8H PRN PRN Reason: PAIN Last Admin: 06/15/17 08:56 Dose: 650 mg Aclidinium [place] (Tudorza -) 1 puff IH BID [facility] Last Admin: 06/19/17 21:28 Dose: 1 puff Albuterol Sulfate (Ventolin 0.083% Nebulizer Soln -) 1 amp NEB TIDR [facility] Last Admin: 06/20/17 06:30 Dose: 1 amp Aspirin (Asa -) 81 mg PO DAILY [facility] Last Admin: 06/19/17 10:09 Dose: 81 mg Budesonide/Formoterol Fumarate (Symbicort 160/4.5mcg -) 1 puff IH BID [facility] Last Admin: 06/19/17 21:28 Dose: 1 puff Clotrimazole (Mycelex Emile's -) 10 mg PO 5XD [facility] Last Admin: 06/20/17 06:53 Dose: 10 mg Docusate Sodium (Colace -) 100 mg PO BID [facility] Last Admin: 06/19/17 21:25 Dose: 100 mg Ferrous Sulfate (Feosol -) 325 mg PO TID [facility] Last Admin: 06/20/17 06:53 Dose: 325 mg Furosemide (Lasix -) 20 mg PO BID@0600,1400 [facility] Last Admin: 06/20/17 06:53 Dose: 20 mg Hydrochlorothiazide (Hctz -) 12.5 mg PO DAILY [facility] Last Admin: 06/19/17 10:09 Dose: 12.5 mg Ceftriaxone Sodium 1 gm/ (Dextrose) 50 mls @ 100 mls/hr IVPB DAILY [facility] Last Admin: 06/19/17 10:09 Dose: 100 mls/hr Insulin Aspart (Novolog Vial Sliding Scale -) 1 vial SQ ACHS SAIMA PRN Reason: Protocol Last Admin: 06/20/17 06:54 Dose: 2 units Meclizine HCl (Antivert -) 12.5 mg PO Q12H PRN PRN Reason: VERTIGO Last Admin: 06/20/17 06:59 Dose: 12.5 mg Methylprednisolone Sodium Succinate (Solu-Medrol -) 40 mg IVPB Q8H-IV [facility] Last Admin: 06/20/17 01:59 Dose: 40 mg Nifedipine (Procardia Xl -) 30 mg PO DAILY [facility] Last Admin: 06/19/17 10:09 Dose: 30 mg Pt's Own Med (Non- Form) (Cyclosporine [Restasis] 1 Each) 1 each OU BID [facility] Last Admin: 06/19/17 21:25 Dose: 1 each Nystatin (Nystop Powder -) 1 applic TP BID PRN Last Admin: 06/16/17 14:43 Dose: 1 applic Pantoprazole Sodium (Protonix -) 40 mg PO DAILY [facility] Last Admin: 06/19/17 10:09 Dose: 40 mg Rosuvastatin Calcium (Crestor -) 10 mg PO HS [facility] Last Admin: 06/19/17 21:25 Dose: 10 mg Sodium Chloride ([place] Nasal [place] -) 1 spray NS Q4H PRN PRN Reason: NASAL CONGESTION Last Admin: 06/16/17 14:43 Dose: 1 spray Valsartan (Diovan -) 160 mg PO DAILY [facility] Last Admin: 06/19/17 10:09 Dose: 160 mg Warfarin Sodium (Coumadin -) 3 mg PO DAILY@1800 [facility] Last Admin: 06/19/17 17:23 Dose: 3 mg - Objective Vital Signs: Vital Signs Temperature 98.6 F 06/20/17 06:00 Pulse Rate 78 06/20/17 06:00 Respiratory Rate 20 06/20/17 06:00 Blood Pressure 126/52 06/20/17 06:00 O2 Sat by Pulse Oximetry (%) 100 06/19/17 21:00 Eyes: Yes: WNL, Conjunctiva Clear, EOM Intact HENT: Yes: WNL, Atraumatic, Normocephalic Neck: Yes: WNL, Supple, Trachea Midline Cardiovascular: Yes: WNL, Regular Rate and Rhythm Respiratory: Yes: WNL, Regular, CTA Bilaterally Gastrointestinal: Yes: WNL, Normal Bowel Sounds Genitourinary: Yes: WNL Musculoskeletal: Yes: WNL Extremities: Yes: WNL Edema: No Integumentary: Yes: WNL Neurological: Yes: WNL, Alert, Oriented ...Motor Strength: WNL Psychiatric: Yes: WNL Labs: CBC, BMP 06/20/17 06:00 06/20/17 06:00 INR, PTT INR 3.62 (0.82-1.09) H 06/20/17 06:00 Assessment/Plan 67 year old woman with a history of HTN, HLD, normal coronary arteries on cardiac cath 2013, chronic diastolic chf, COPD, pulm HTN, h/o Pulmonary embolism , CVA on coumadin admitted with back pain, chest pain, sob. SOB/chest tightness-most likely AE COPD -euvolemic -cont po lasix at home dose -pulmonary following -cardiac cath 2013 showed normal coronary arteries thus less likely her chest tightness is from ischemia, cardiac enzymes were wnl -cont tx of AE COPD -f/up echo that was done on this admission, report still not in EMR, although low suspicion for any change -at this point, no additional planned inpatient cardiac work up -close outpatient f/up H/o PE, pulm HTN, CVA -cont coumadin for goal INR 2-3 HTN-adequately controlled -cont current medical regimen
[2017-06-20] MEDS ORDERED: DEXTROSE 5%-WATER - 50 ML IVPB ONE (09:09)
[2017-06-20] MEDS ORDERED: cefTRIAXone SODIUM 1 GM VIAL ONE (09:09)
[2017-06-20] MEDS: CEFTRIAXONE 1 GM in DEXTROSE 5%-WATER - 50 ML IVPB SCH (09:13)
[2017-06-20] MEDS: ACLIDINIUM BROMIDE 400 MCG/INH AERO.POWD IH SCH ×2 (09:14→23:27)
[2017-06-20] MEDS: BUDESONIDE/FORMETEROL FUMARATE 160/4.5 mcg INHALER IH SCH ×2 (09:14→23:26)
[2017-06-20] MEDS: ASPIRIN 81 MG CHEWABLE TABLETS PO SCH (09:14)
[2017-06-20] MEDS: PANTOPRAZOLE 40 MG TABLET (FP) PO SCH (09:14)
[2017-06-20] MEDS: VALSARTAN 160 MG TABLET (UD) PO SCH (09:14)
[2017-06-20] MEDS: HYDROCHLOROTHIAZIDE 12.5 MG CAPSULE (FP) PO SCH (09:14)
[2017-06-20] MEDS: DOCUSATE SODIUM 100 MG CAPSULE (FP) PO SCH ×2 (09:14→23:22)
[2017-06-20] MEDS: NIFEdipine E.R. 30 MG TABLET (FP) PO SCH (09:14)
[2017-06-20] MEDS: SODIUM CHLORIDE NASAL SPRAY 44 ML BOTTLE NS PRN (09:18)
[2017-06-20] MEDS: [UNRECOGNIZED DRUG - REMARK] OU SCH ×2 (09:18→23:24)
[2017-06-20] MEDS: NYSTATIN POWDER 100,000 UNITS/GM - 15 GM TOPICAL POWDER TP PRN (09:18)
--- NOTE | 2017-06-20 10:45 | PN ---
Progress Note (short form) - Note Progress Note: PULMONARY STILL WITH SOB/WHEEZE VSS ANICTERIC SCATTERED EXP RHONCHI S1S2 OBESE SOFT MILD LOWER EXT EDEMA LABS/MEDS/NOTES/IMAGING/MEDS/ REVIEWED IMP ACUTE ON CHRONIC HYPOXEMIC/HYPERCAPNEIC RESPIRATORY FAILURE COPD END STAGE WITH ACUTE EXACERBATION CHEST PAIN SYNDROME H/O PULMONARY EMBOLISM PULMONARY HTN BACK PAIN LIKELY SCIATICA HTN MORBID OBESITY PLAN INHALED BRONCHODILATORS O2 STEROIDS SAME DOSE ANALGESICS ANTIBIOTICS ANTICOAGULATION WILL FOLLOW Danny ROMERO MD
[2017-06-20] MEDS ORDERED: INSULIN (NOVOLOG) ASPART 100 UNITS/ML 10ML VIAL ONE ×2 (11:23→17:39)
[2017-06-20] MEDS ORDERED: PT OWN MED DRAWER 7, Y5N ONE (14:21)
[2017-06-20] MEDS: WARFARIN NA 3 MG TABLET PO SCH (17:00)
[2017-06-20] MEDS: ROSUVASTATIN CA 10 MG TABLET (FP) PO SCH (23:23)
--- NOTE | 2017-06-20 23:48 | PN ---
Progress Note, Physician History of Present Illness: No new complaints - Current Medication List Current Medications: Active Medications Acetaminophen (Tylenol -) 650 mg PO Q8H PRN PRN Reason: PAIN Last Admin: 06/15/17 08:56 Dose: 650 mg Aclidinium [place] (Tudorza -) 1 puff IH BID [facility] Last Admin: 06/20/17 23:27 Dose: 1 puff Albuterol Sulfate (Ventolin 0.083% Nebulizer Soln -) 1 amp NEB TIDR [facility] Last Admin: 06/20/17 22:10 Dose: 1 amp Aspirin (Asa -) 81 mg PO DAILY [facility] Last Admin: 06/20/17 09:14 Dose: 81 mg Budesonide/Formoterol Fumarate (Symbicort 160/4.5mcg -) 1 puff IH BID [facility] Last Admin: 06/20/17 23:26 Dose: 1 puff Clotrimazole (Mycelex Emile's -) 10 mg PO 5XD [facility] Last Admin: 06/20/17 23:24 Dose: 10 mg Docusate Sodium (Colace -) 100 mg PO BID [facility] Last Admin: 06/20/17 23:22 Dose: 100 mg Ferrous Sulfate (Feosol -) 325 mg PO TID [facility] Last Admin: 06/20/17 23:24 Dose: 325 mg Furosemide (Lasix -) 20 mg PO BID@0600,1400 [facility] Last Admin: 06/20/17 14:27 Dose: 20 mg Hydrochlorothiazide (Hctz -) 12.5 mg PO DAILY [facility] Last Admin: 06/20/17 09:14 Dose: 12.5 mg Ceftriaxone Sodium 1 gm/ (Dextrose) 50 mls @ 100 mls/hr IVPB DAILY [facility] Last Admin: 06/20/17 09:13 Dose: 100 mls/hr Insulin Aspart (Novolog Vial Sliding Scale -) 1 vial SQ ACHS SAIMA PRN Reason: Protocol Last Admin: 06/20/17 23:25 Dose: 6 units Meclizine HCl (Antivert -) 12.5 mg PO Q12H PRN PRN Reason: VERTIGO Last Admin: 06/20/17 06:59 Dose: 12.5 mg Methylprednisolone Sodium Succinate (Solu-Medrol -) 40 mg IVPB Q8H-IV [facility] Last Admin: 06/20/17 17:27 Dose: 40 mg Nifedipine (Procardia Xl -) 30 mg PO DAILY [facility] Last Admin: 06/20/17 09:14 Dose: 30 mg Pt's Own Med (Non- Form) (Cyclosporine [Restasis] 1 Each) 1 each OU BID [facility] Last Admin: 06/20/17 23:24 Dose: 1 each Nystatin (Nystop Powder -) 1 applic TP BID PRN Last Admin: 06/20/17 09:18 Dose: 1 applic Pantoprazole Sodium (Protonix -) 40 mg PO DAILY [facility] Last Admin: 06/20/17 09:14 Dose: 40 mg Rosuvastatin Calcium (Crestor -) 10 mg PO HS [facility] Last Admin: 06/20/17 23:23 Dose: 10 mg Sodium Chloride ([place] Nasal [place] -) 1 spray NS Q4H PRN PRN Reason: NASAL CONGESTION Last Admin: 06/20/17 09:18 Dose: 1 spray Valsartan (Diovan -) 160 mg PO DAILY [facility] Last Admin: 06/20/17 09:14 Dose: 160 mg Warfarin Sodium (Coumadin -) 3 mg PO DAILY@1800 [facility] Last Admin: 06/20/17 17:00 Dose: Not Given - Objective Vital Signs: Vital Signs Temperature 98.3 F 06/20/17 18:40 Pulse Rate 92 H 06/20/17 18:40 Respiratory Rate 19 06/20/17 18:40 Blood Pressure 148/84 06/20/17 18:40 O2 Sat by Pulse Oximetry (%) 98 06/20/17 13:40 Constitutional: Yes: Well Nourished Neck: Yes: WNL, Supple Cardiovascular: Yes: WNL, Regular Rate and Rhythm Respiratory: Yes: Wheezes Gastrointestinal: Yes: WNL, Normal Bowel Sounds, Soft, Abdomen, Obese Labs: CBC, BMP 06/20/17 06:00 06/20/17 06:00 INR, PTT INR 3.62 (0.82-1.09) H 06/20/17 06:00 Problem List - Problems (1) COPD exacerbation Code(s): J44.1 - CHRONIC OBSTRUCTIVE PULMONARY DISEASE W (ACUTE) EXACERBATION (2) Chronic diastolic (congestive) heart failure Code(s): I50.32 - CHRONIC DIASTOLIC (CONGESTIVE) HEART FAILURE (3) Shoulder pain Code(s): M25.519 - PAIN IN UNSPECIFIED SHOULDER (4) Pulmonary embolus Code(s): I26.99 - OTHER PULMONARY EMBOLISM WITHOUT ACUTE COR PULMONALE (5) Acute on chronic respiratory failure with hypoxia and hypercapnia Code(s): J96.21 - ACUTE AND CHRONIC RESPIRATORY FAILURE WITH HYPOXIA J96.22 - ACUTE AND CHRONIC RESPIRATORY FAILURE WITH HYPERCAPNIA (6) Anemia Code(s): D64.9 - ANEMIA, UNSPECIFIED (7) Coronary artery disease Code(s): I25.10 - ATHSCL HEART DISEASE OF [place] CORONARY ARTERY W/O ANG PCTRS (8) Hypertension Code(s): I10 - ESSENTIAL (PRIMARY) HYPERTENSION (9) SOB (shortness of breath) Code(s): R06.02 - SHORTNESS OF BREATH (10) Morbid obesity Code(s): E66.01 - MORBID (SEVERE) OBESITY DUE TO EXCESS CALORIES
[2017-06-21] MEDS: methylPREDNISolone NA SUCC 40 MG/1 ML VIAL IVPB SCH ×3 (01:34→17:06)
[2017-06-21] MEDS: FERROUS SO4 325 MG TABLET (FP) PO SCH ×3 (06:15→21:21)
[2017-06-21] MEDS: CLOTRIMAZOLE 10 MG TROCHE (FP) PO SCH ×5 (06:15→21:20)
[2017-06-21] MEDS: FUROSEMIDE 20 MG TABLET (FP) PO SCH ×2 (06:15→13:45)
[2017-06-21] MEDS: INSULIN SLIDING SCALE (NOVOLOG) 1 VIAL SQ SCH ×4 (06:18→21:22)
[2017-06-21] MEDS: ALBUTEROL SO4 0.083% IH SOL 2.5 MG/3 ML VIAL.NEB. NEB SCH ×4 (06:30→22:36)
[2017-06-21] MEDS ORDERED: INSULIN (NOVOLOG) ASPART 100 UNITS/ML 10ML VIAL ONE ×2 (07:00→18:13)
[2017-06-21] MEDS ORDERED: PT OWN MED DRAWER 7, Y5N ONE (07:01)
[2017-06-21 07:38] LABS: INR 3.18 (0.82-1.09); PROTHROMBIN TIME (PATIENT) 35.8 SEC (9.98-11.88)
[2017-06-21] MEDS ORDERED: DEXTROSE 5%-WATER - 50 ML IVPB ONE (09:18)
[2017-06-21] MEDS ORDERED: cefTRIAXone SODIUM 1 GM VIAL ONE (09:18)
[2017-06-21] MEDS: ACLIDINIUM BROMIDE 400 MCG/INH AERO.POWD IH SCH ×2 (09:20→21:22)
[2017-06-21] MEDS: BUDESONIDE/FORMETEROL FUMARATE 160/4.5 mcg INHALER IH SCH ×2 (09:20→21:22)
[2017-06-21] MEDS: HYDROCHLOROTHIAZIDE 12.5 MG CAPSULE (FP) PO SCH (09:22)
[2017-06-21] MEDS: CEFTRIAXONE 1 GM in DEXTROSE 5%-WATER - 50 ML IVPB SCH (09:22)
[2017-06-21] MEDS: ASPIRIN 81 MG CHEWABLE TABLETS PO SCH (09:22)
[2017-06-21] MEDS: NIFEdipine E.R. 30 MG TABLET (FP) PO SCH (09:22)
[2017-06-21] MEDS: PANTOPRAZOLE 40 MG TABLET (FP) PO SCH (09:22)
[2017-06-21] MEDS: DOCUSATE SODIUM 100 MG CAPSULE (FP) PO SCH ×2 (09:22→21:21)
[2017-06-21] MEDS: VALSARTAN 160 MG TABLET (UD) PO SCH (09:22)
[2017-06-21] MEDS: [UNRECOGNIZED DRUG - REMARK] OU SCH ×2 (09:22→21:24)
[2017-06-21] MEDS: NYSTATIN POWDER 100,000 UNITS/GM - 15 GM TOPICAL POWDER TP PRN ×2 (09:28→21:23)
[2017-06-21] MEDS: SODIUM CHLORIDE NASAL SPRAY 44 ML BOTTLE NS PRN (09:29)
[2017-06-21] MEDS: MECLIZINE HCL 12.5 MG TABLET PO PRN (13:47)
[2017-06-21] MEDS: WARFARIN NA 3 MG TABLET PO SCH (17:03)
[2017-06-21] MEDS: ACETAMINOPHEN 325 MG TABLET (FP) PO PRN (17:07)
--- NOTE | 2017-06-21 20:18 | PN ---
Progress Note, Physician History of Present Illness: Pt c/o lt shoulder pain - Current Medication List Current Medications: Active Medications Acetaminophen (Tylenol -) 650 mg PO Q4H PRN PRN Reason: FEVER OR PAIN Last Admin: 06/21/17 17:07 Dose: 650 mg Aclidinium [place] (Tudorza -) 1 puff IH BID [facility] Last Admin: 06/21/17 09:20 Dose: 1 puff Albuterol Sulfate (Ventolin 0.083% Nebulizer Soln -) 1 amp NEB TIDR [facility] Last Admin: 06/21/17 14:05 Dose: 1 amp Aspirin (Asa -) 81 mg PO DAILY [facility] Last Admin: 06/21/17 09:22 Dose: 81 mg Budesonide/Formoterol Fumarate (Symbicort 160/4.5mcg -) 1 puff IH BID [facility] Last Admin: 06/21/17 09:20 Dose: 1 puff Clotrimazole (Mycelex Emile's -) 10 mg PO 5XD [facility] Last Admin: 06/21/17 17:08 Dose: 10 mg Docusate Sodium (Colace -) 100 mg PO BID [facility] Last Admin: 06/21/17 09:22 Dose: 100 mg Ferrous Sulfate (Feosol -) 325 mg PO TID [facility] Last Admin: 06/21/17 13:45 Dose: 325 mg Furosemide (Lasix -) 20 mg PO BID@0600,1400 [facility] Last Admin: 06/21/17 13:45 Dose: 20 mg Hydrochlorothiazide (Hctz -) 12.5 mg PO DAILY [facility] Last Admin: 06/21/17 09:22 Dose: 12.5 mg Ceftriaxone Sodium 1 gm/ (Dextrose) 50 mls @ 100 mls/hr IVPB DAILY [facility] Last Admin: 06/21/17 09:22 Dose: 100 mls/hr Insulin Aspart (Novolog Vial Sliding Scale -) 1 vial SQ ACHS SAIMA PRN Reason: Protocol Last Admin: 06/21/17 17:06 Dose: 4 units Meclizine HCl (Antivert -) 12.5 mg PO Q12H PRN PRN Reason: VERTIGO Last Admin: 06/21/17 13:47 Dose: 12.5 mg Methylprednisolone Sodium Succinate (Solu-Medrol -) 40 mg IVPB Q8H-IV [facility] Last Admin: 06/21/17 17:06 Dose: 40 mg Nifedipine (Procardia Xl -) 30 mg PO DAILY [facility] Last Admin: 06/21/17 09:22 Dose: 30 mg Pt's Own Med (Non- Form) (Cyclosporine [Restasis] 1 Each) 1 each OU BID [facility] Last Admin: 06/21/17 09:22 Dose: 1 each Nystatin (Nystop Powder -) 1 applic TP BID PRN Last Admin: 06/21/17 09:28 Dose: 1 applic Pantoprazole Sodium (Protonix -) 40 mg PO DAILY [facility] Last Admin: 06/21/17 09:22 Dose: 40 mg Rosuvastatin Calcium (Crestor -) 10 mg PO HS [facility] Last Admin: 06/20/17 23:23 Dose: 10 mg Sodium Chloride ([place] Nasal [place] -) 1 spray NS Q4H PRN PRN Reason: NASAL CONGESTION Last Admin: 06/21/17 09:29 Dose: 1 spray Valsartan (Diovan -) 160 mg PO DAILY [facility] Last Admin: 06/21/17 09:22 Dose: 160 mg Warfarin Sodium (Coumadin -) 3 mg PO DAILY@1800 [facility] Last Admin: 06/21/17 17:03 Dose: Not Given - Objective Vital Signs: Vital Signs Temperature 98.8 F 06/21/17 17:58 Pulse Rate 94 H 06/21/17 15:02 Respiratory Rate 22 06/21/17 15:02 Blood Pressure 111/72 06/21/17 15:02 O2 Sat by Pulse Oximetry (%) 98 06/21/17 14:05 Constitutional: Yes: Well Nourished HENT: Yes: WNL Neck: Yes: WNL, Supple Cardiovascular: Yes: WNL, Regular Rate and Rhythm Respiratory: Yes: WNL, Regular, CTA Bilaterally Gastrointestinal: Yes: WNL, Normal Bowel Sounds, Soft, Abdomen, Obese Extremities: Yes: Other (limited ROM of upper extremities due to pain) Labs: CBC, BMP 06/20/17 06:00 06/20/17 06:00 INR, PTT INR 3.18 (0.82-1.09) H 06/21/17 06:15 Problem List - Problems (1) COPD exacerbation Assessment/Plan: Cont IV steroids/IV antibxs/nebulizers Monitor glucose Code(s): J44.1 - CHRONIC OBSTRUCTIVE PULMONARY DISEASE W (ACUTE) EXACERBATION (2) Chronic diastolic (congestive) heart failure Assessment/Plan: Acute on chronic diastolic heart failure Cont lasix Monitor electrolytes Code(s): I50.32 - CHRONIC DIASTOLIC (CONGESTIVE) HEART FAILURE (3) Shoulder pain Assessment/Plan: Xray showed ?rotator cuff tear Increase tylenol dose PT Code(s): M25.519 - PAIN IN UNSPECIFIED SHOULDER (4) Pulmonary embolus Assessment/Plan: Cont coumadin Monitor pt/inr Code(s): I26.99 - OTHER PULMONARY EMBOLISM WITHOUT ACUTE COR PULMONALE (5) Acute on chronic respiratory failure with hypoxia and hypercapnia Assessment/Plan: Cardiac vs pulmonary CHF vs COPD Code(s): J96.21 - ACUTE AND CHRONIC RESPIRATORY FAILURE WITH HYPOXIA J96.22 - ACUTE AND CHRONIC RESPIRATORY FAILURE WITH HYPERCAPNIA (6) Anemia Assessment/Plan: Cont feoso4 Monitor H/H Code(s): D64.9 - ANEMIA, UNSPECIFIED (7) Coronary artery disease Code(s): I25.10 - ATHSCL HEART DISEASE OF [place] CORONARY ARTERY W/O ANG PCTRS (8) Hypertension Code(s): I10 - ESSENTIAL (PRIMARY) HYPERTENSION (9) SOB (shortness of breath) Code(s): R06.02 - SHORTNESS OF BREATH (10) Morbid obesity Code(s): E66.01 - MORBID (SEVERE) OBESITY DUE TO EXCESS CALORIES
[2017-06-21] MEDS: ROSUVASTATIN CA 10 MG TABLET (FP) PO SCH (21:21)
[2017-06-21] MEDS: NYSTATIN 100,000 UNIT/GM TOPICAL CREAM 15 GM TUBE TP SCH (21:41)
[2017-06-22] MEDS: methylPREDNISolone NA SUCC 40 MG/1 ML VIAL IVPB SCH ×3 (01:49→21:52)
[2017-06-22] MEDS: FUROSEMIDE 20 MG TABLET (FP) PO SCH ×2 (06:15→14:52)
[2017-06-22] MEDS: CLOTRIMAZOLE 10 MG TROCHE (FP) PO SCH ×5 (06:15→21:51)
[2017-06-22] MEDS: FERROUS SO4 325 MG TABLET (FP) PO SCH ×3 (06:15→21:50)
[2017-06-22] MEDS: INSULIN SLIDING SCALE (NOVOLOG) 1 VIAL SQ SCH ×4 (06:15→21:51)
[2017-06-22] MEDS: ALBUTEROL SO4 0.083% IH SOL 2.5 MG/3 ML VIAL.NEB. NEB SCH ×3 (06:30→22:26)
[2017-06-22] MEDS ORDERED: INSULIN (NOVOLOG) ASPART 100 UNITS/ML 10ML VIAL ONE ×2 (06:30→21:40)
[2017-06-22] MEDS ORDERED: PT OWN MED DRAWER 7, Y5N ONE ×4 (06:31→21:41)
[2017-06-22 07:05] LABS: MCH 21.8 pg (25.7-33.7); MCHC 28.4 g/dl (32.0-36.0); MEAN CELL VOLUME 76.7 fl (80-96); PLATELET COUNT 215 K/MM3 (134-434); RDW 15.4 % (11.6-15.6); WHITE BLOOD COUNT 20.2 K/mm3 (4.0-10.0)
[2017-06-22 07:26] LABS: ALBUMIN 3.5 g/dl (3.4-5.0); ANION GAP 5 (8-16); BILIRUBIN,TOTAL 0.4 mg/dL (0.2-1.0); CALCIUM 8.8 mg/dL (8.5-10.1); CO2 43 mmol/L (21-32); CREATININE 1.3 mg/dL (0.55-1.02); GLUCOSE,RANDOM 159 mg/dL (74-106); SGOT/AST 15 U/L (15-37); SGPT/ALT 29 U/L (12-78); TOT PROT 6.1 g/dl (6.4-8.2)
[2017-06-22 07:27] LABS: ALK PHOS 59 U/L (45-117)
[2017-06-22 08:06] LABS: INR 2.35 (0.82-1.09); PROTHROMBIN TIME (PATIENT) 26.3 SEC (9.98-11.88)
[2017-06-22 08:54] LABS: TOTAL CELLS COUNTED 100
[2017-06-22 08:56] LABS: MYELOCYTE 1 % (0-2)
--- NOTE | 2017-06-22 08:57 | PN ---
Progress Note (short form) - Note Progress Note: Ortho Pt seen and examined feeling slightly better right shoulder- + ttp, decr rom, + empty can nvi a/p PT defers injection at the present time orthopedically stable f/u as outpt if pain persists and would like an injection d/w Dr. Kenyon
--- NOTE | 2017-06-22 09:03 | PN ---
Progress Note, Physician Chief Complaint: feeling "better" History of Present Illness: blood pressure well controlled - Current Medication List Current Medications: Active Medications Acetaminophen (Tylenol -) 650 mg PO Q4H PRN PRN Reason: FEVER OR PAIN Last Admin: 06/21/17 17:07 Dose: 650 mg Aclidinium [place] (Tudorza -) 1 puff IH BID [facility] Last Admin: 06/21/17 21:22 Dose: 1 puff Albuterol Sulfate (Ventolin 0.083% Nebulizer Soln -) 1 amp NEB TIDR [facility] Last Admin: 06/22/17 06:30 Dose: 1 amp Aspirin (Asa -) 81 mg PO DAILY [facility] Last Admin: 06/21/17 09:22 Dose: 81 mg Budesonide/Formoterol Fumarate (Symbicort 160/4.5mcg -) 1 puff IH BID [facility] Last Admin: 06/21/17 21:22 Dose: 1 puff Clotrimazole (Mycelex Emile's -) 10 mg PO 5XD [facility] Last Admin: 06/22/17 06:15 Dose: 10 mg Docusate Sodium (Colace -) 100 mg PO BID [facility] Last Admin: 06/21/17 21:21 Dose: 100 mg Ferrous Sulfate (Feosol -) 325 mg PO TID [facility] Last Admin: 06/22/17 06:15 Dose: 325 mg Furosemide (Lasix -) 20 mg PO BID@0600,1400 [facility] Last Admin: 06/22/17 06:15 Dose: 20 mg Hydrochlorothiazide (Hctz -) 12.5 mg PO DAILY [facility] Last Admin: 06/21/17 09:22 Dose: 12.5 mg Ceftriaxone Sodium 1 gm/ (Dextrose) 50 mls @ 100 mls/hr IVPB DAILY [facility] Last Admin: 06/21/17 09:22 Dose: 100 mls/hr Insulin Aspart (Novolog Vial Sliding Scale -) 1 vial SQ ACHS [facility] PRN Reason: Protocol Last Admin: 06/22/17 06:15 Dose: 2 units Meclizine HCl (Antivert -) 12.5 mg PO Q12H PRN PRN Reason: VERTIGO Last Admin: 06/21/17 13:47 Dose: 12.5 mg Methylprednisolone Sodium Succinate (Solu-Medrol -) 40 mg IVPB Q8H-IV [facility] Last Admin: 06/22/17 01:49 Dose: 40 mg Nifedipine (Procardia Xl -) 30 mg PO DAILY [facility] Last Admin: 06/21/17 09:22 Dose: 30 mg Pt's Own Med (Non- Form) (Cyclosporine [Restasis] 1 Each) 1 each OU BID [facility] Last Admin: 06/21/17 21:24 Dose: 1 each Nystatin (Nystop Powder -) 1 applic TP BID PRN Last Admin: 06/21/17 21:23 Dose: 1 applic Nystatin (Mycostatin Cream -) 1 applic TP BID [facility] Last Admin: 06/21/17 21:41 Dose: 1 applic Pantoprazole Sodium (Protonix -) 40 mg PO DAILY [facility] Last Admin: 06/21/17 09:22 Dose: 40 mg Rosuvastatin Calcium (Crestor -) 10 mg PO HS [facility] Last Admin: 06/21/17 21:21 Dose: 10 mg Sodium Chloride ([place] Nasal Shubuta -) 1 spray NS Q4H PRN PRN Reason: NASAL CONGESTION Last Admin: 06/21/17 09:29 Dose: 1 spray Valsartan (Diovan -) 160 mg PO DAILY [facility] Last Admin: 06/21/17 09:22 Dose: 160 mg Warfarin Sodium (Coumadin -) 3 mg PO DAILY@1800 [facility] Last Admin: 06/21/17 17:03 Dose: Not Given - Objective Vital Signs: Vital Signs Temperature 98.9 F 06/21/17 22:00 Pulse Rate 75 06/21/17 22:00 Respiratory Rate 20 06/21/17 22:00 Blood Pressure 121/58 06/21/17 22:00 O2 Sat by Pulse Oximetry (%) 99 06/21/17 23:57 Constitutional: Yes: No Distress, Calm Eyes: Yes: Conjunctiva Clear Cardiovascular: Yes: Regular Rate and Rhythm Respiratory: Yes: Other (mild expiratory wheezing) Gastrointestinal: Yes: Soft, Abdomen, Obese Edema: No Neurological: Yes: Alert, Oriented Labs: CBC, BMP 06/22/17 06:10 06/22/17 06:10 INR, PTT INR 2.35 (0.82-1.09) H 06/22/17 06:10 Assessment/Plan Assessment/Plan 67 year old woman with a history of HTN, HLD, normal coronary arteries on cardiac cath 2013, chronic diastolic chf, COPD, pulm HTN, h/o Pulmonary embolism , CVA on coumadin admitted with back pain, chest pain, sob. SOB/chest tightness-most likely AE COPD -euvolemic -cont po lasix -pulmonary following -cardiac cath 2013 showed normal coronary arteries thus less likely her chest tightness is from ischemia, cardiac enzymes were wnl -cont tx of AE COPD -at this point, no additional planned inpatient cardiac work up, awaiting echo report H/o PE, pulm HTN, CVA -cont coumadin for goal INR 2-3 HTN-adequately controlled -cont current medical regimen
[2017-06-22] MEDS ORDERED: DEXTROSE 5%-WATER - 50 ML IVPB ONE (09:04)
[2017-06-22] MEDS ORDERED: cefTRIAXone SODIUM 1 GM VIAL ONE (09:04)
[2017-06-22] MEDS: BUDESONIDE/FORMETEROL FUMARATE 160/4.5 mcg INHALER IH SCH ×2 (10:04→21:52)
[2017-06-22] MEDS: CEFTRIAXONE 1 GM in DEXTROSE 5%-WATER - 50 ML IVPB SCH (10:04)
[2017-06-22] MEDS: ACLIDINIUM BROMIDE 400 MCG/INH AERO.POWD IH SCH ×2 (10:04→21:53)
[2017-06-22] MEDS: SODIUM CHLORIDE NASAL SPRAY 44 ML BOTTLE NS PRN (10:05)
[2017-06-22] MEDS: NYSTATIN POWDER 100,000 UNITS/GM - 15 GM TOPICAL POWDER TP PRN (10:05)
[2017-06-22] MEDS: NYSTATIN 100,000 UNIT/GM TOPICAL CREAM 15 GM TUBE TP SCH ×2 (10:05→21:53)
[2017-06-22] MEDS: DOCUSATE SODIUM 100 MG CAPSULE (FP) PO SCH ×2 (10:06→21:48)
[2017-06-22] MEDS: HYDROCHLOROTHIAZIDE 12.5 MG CAPSULE (FP) PO SCH (10:06)
[2017-06-22] MEDS: NIFEdipine E.R. 30 MG TABLET (FP) PO SCH (10:06)
[2017-06-22] MEDS: VALSARTAN 160 MG TABLET (UD) PO SCH (10:06)
[2017-06-22] MEDS: PANTOPRAZOLE 40 MG TABLET (FP) PO SCH (10:07)
[2017-06-22] MEDS: ASPIRIN 81 MG CHEWABLE TABLETS PO SCH (10:07)
[2017-06-22] MEDS: [UNRECOGNIZED DRUG - REMARK] OU SCH ×2 (10:08→21:54)
--- NOTE | 2017-06-22 12:53 | PN ---
Progress Note, Physician History of Present Illness: pulmonary alert,c/o sob,less chest tightness - Current Medication List Current Medications: Active Medications Acetaminophen (Tylenol -) 650 mg PO Q4H PRN PRN Reason: FEVER OR PAIN Last Admin: 06/21/17 17:07 Dose: 650 mg Aclidinium [place] (Tudorza -) 1 puff IH BID [facility] Last Admin: 06/22/17 10:04 Dose: 1 puff Albuterol Sulfate (Ventolin 0.083% Nebulizer Soln -) 1 amp NEB TIDR [facility] Last Admin: 06/22/17 06:30 Dose: 1 amp Aspirin (Asa -) 81 mg PO DAILY [facility] Last Admin: 06/22/17 10:07 Dose: 81 mg Budesonide/Formoterol Fumarate (Symbicort 160/4.5mcg -) 1 puff IH BID [facility] Last Admin: 06/22/17 10:04 Dose: 1 puff Clotrimazole (Mycelex Emile's -) 10 mg PO 5XD [facility] Last Admin: 06/22/17 10:08 Dose: 10 mg Docusate Sodium (Colace -) 100 mg PO BID [facility] Last Admin: 06/22/17 10:06 Dose: 100 mg Ferrous Sulfate (Feosol -) 325 mg PO TID [facility] Last Admin: 06/22/17 06:15 Dose: 325 mg Furosemide (Lasix -) 20 mg PO BID@0600,1400 [facility] Last Admin: 06/22/17 06:15 Dose: 20 mg Hydrochlorothiazide (Hctz -) 12.5 mg PO DAILY [facility] Last Admin: 06/22/17 10:06 Dose: 12.5 mg Insulin Aspart (Novolog Vial Sliding Scale -) 1 vial SQ ACHS [facility] PRN Reason: Protocol Last Admin: 06/22/17 06:15 Dose: 2 units Meclizine HCl (Antivert -) 12.5 mg PO Q12H PRN PRN Reason: VERTIGO Last Admin: 06/21/17 13:47 Dose: 12.5 mg Methylprednisolone Sodium Succinate (Solu-Medrol -) 40 mg IVPB Q8H-IV [facility] Last Admin: 06/22/17 10:07 Dose: 40 mg Nifedipine (Procardia Xl -) 30 mg PO DAILY [facility] Last Admin: 06/22/17 10:06 Dose: 30 mg Pt's Own Med (Non- Form) (Cyclosporine [Restasis] 1 Each) 1 each OU BID [facility] Last Admin: 06/22/17 10:08 Dose: 1 each Nystatin (Nystop Powder -) 1 applic TP BID [facility]N Last Admin: 06/22/17 10:05 Dose: 1 applic Nystatin (Mycostatin Cream -) 1 applic TP BID [facility] Last Admin: 06/22/17 10:05 Dose: 1 applic Pantoprazole Sodium (Protonix -) 40 mg PO DAILY [facility] Last Admin: 06/22/17 10:07 Dose: 40 mg Rosuvastatin Calcium (Crestor -) 10 mg PO HS [facility] Last Admin: 06/21/17 21:21 Dose: 10 mg Sodium Chloride ([place] Nasal [place] -) 1 spray NS Q4H PRN PRN Reason: NASAL CONGESTION Last Admin: 06/22/17 10:05 Dose: 1 spray Valsartan (Diovan -) 160 mg PO DAILY [facility] Last Admin: 06/22/17 10:06 Dose: 160 mg Warfarin Sodium (Coumadin -) 3 mg PO DAILY@1800 [facility] Last Admin: 06/21/17 17:03 Dose: Not Given - Objective Vital Signs: Vital Signs Temperature 98.2 F 06/22/17 10:02 Pulse Rate 97 H 06/22/17 10:02 Respiratory Rate 20 06/22/17 10:02 Blood Pressure 136/81 06/22/17 10:02 O2 Sat by Pulse Oximetry (%) 99 06/21/17 23:57 Constitutional: Yes: Calm, Obese Eyes: Yes: WNL HENT: Yes: WNL Neck: Yes: WNL Cardiovascular: Yes: Regular Rate and Rhythm, S1, S2 Respiratory: Yes: CTA Bilaterally Gastrointestinal: Yes: Normal Bowel Sounds, Soft Extremities: Yes: WNL Edema: Yes Labs: CBC, BMP 06/22/17 06:10 06/22/17 06:10 INR, PTT INR 2.35 (0.82-1.09) H 06/22/17 06:10 Problem List - Problems (1) COPD exacerbation Code(s): J44.1 - CHRONIC OBSTRUCTIVE PULMONARY DISEASE W (ACUTE) EXACERBATION (2) Anemia Code(s): D64.9 - ANEMIA, UNSPECIFIED (3) Chest pain Code(s): R07.9 - CHEST PAIN, UNSPECIFIED Qualifiers: Chest pain type: unspecified Qualified Code(s): R07.9 - Chest pain, unspecified (4) Chronic diastolic (congestive) heart failure Code(s): I50.32 - CHRONIC DIASTOLIC (CONGESTIVE) HEART FAILURE (5) Coronary artery disease Code(s): I25.10 - ATHSCL HEART DISEASE OF [place] CORONARY ARTERY W/O ANG PCTRS (6) History of pulmonary embolism Code(s): Z86.711 - PERSONAL HISTORY OF PULMONARY EMBOLISM (7) FDC current use of anticoagulant Code(s): Z79.01 - DB2 DBA (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 OF 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 (8) Obesity Code(s): E66.9 - OBESITY, UNSPECIFIED (9) Pulmonary hypertension Code(s): I27.2 - OTHER SECONDARY PULMONARY HYPERTENSION (10) SOB (shortness of breath) Code(s): R06.02 - SHORTNESS OF BREATH (11) Stroke Code(s): I63.9 - CEREBRAL INFARCTION, UNSPECIFIED (12) Acute on chronic respiratory failure with hypoxia and hypercapnia Code(s): J96.21 - ACUTE AND CHRONIC RESPIRATORY FAILURE WITH HYPOXIA J96.22 - ACUTE AND CHRONIC RESPIRATORY FAILURE WITH HYPERCAPNIA Assessment/Plan IMP ACUTE ON CHRONIC HYPOXEMIC/HYPERCAPNEIC RESPIRATORY FAILURE COPD END STAGE WITH ACUTE EXACERBATION CHEST PAIN SYNDROME IMPROVED H/O PULMONARY EMBOLISM PULMONARY HTN BACK PAIN LIKELY SCIATICA HTN MORBID OBESITY L SHOULDER PAIN PLAN INHALED BRONCHODILATORS O2 STEROID TAPER ANALGESICS PT DR FOX Problem List - Problems (1) COPD exacerbation Code(s): J44.1 - CHRONIC OBSTRUCTIVE PULMONARY DISEASE W (ACUTE) EXACERBATION (2) Anemia Code(s): D64.9 - ANEMIA, UNSPECIFIED (3) Chest pain Code(s): R07.9 - CHEST PAIN, UNSPECIFIED Qualifiers: Chest pain type: unspecified Qualified Code(s): R07.9 - Chest pain, unspecified (4) Chronic diastolic (congestive) heart failure Code(s): I50.32 - CHRONIC DIASTOLIC (CONGESTIVE) HEART FAILURE (5) Coronary artery disease Code(s): I25.10 - ATHSCL HEART DISEASE OF [place] CORONARY ARTERY W/O ANG PCTRS (6) History of pulmonary embolism Code(s): Z86.711 - PERSONAL HISTORY OF PULMONARY EMBOLISM (7) FDC current use of anticoagulant Code(s): Z79.01 - FDC (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 OF 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 (8) Obesity Code(s): E66.9 - OBESITY, UNSPECIFIED (9) Pulmonary hypertension Code(s): I27.2 - OTHER SECONDARY PULMONARY HYPERTENSION (10) SOB (shortness of breath) Code(s): R06.02 - SHORTNESS OF BREATH (11) Stroke Code(s): I63.9 - CEREBRAL INFARCTION, UNSPECIFIED (12) Acute on chronic respiratory failure with hypoxia and hypercapnia Code(s): J96.21 - ACUTE AND CHRONIC RESPIRATORY FAILURE WITH HYPOXIA J96.22 - ACUTE AND CHRONIC RESPIRATORY FAILURE WITH HYPERCAPNIA
[2017-06-22] MEDS: ACETAMINOPHEN 325 MG TABLET (FP) PO PRN (14:58)
[2017-06-22] MEDS: ROSUVASTATIN CA 10 MG TABLET (FP) PO SCH (21:50)
--- NOTE | 2017-06-22 23:04 | PN ---
Progress Note, Physician - Current Medication List Current Medications: Active Medications Acetaminophen (Tylenol -) 650 mg PO Q4H PRN PRN Reason: FEVER OR PAIN Last Admin: 06/22/17 14:58 Dose: 650 mg Aclidinium [place] (Tudorza -) 1 puff IH BID [facility] Last Admin: 06/22/17 21:53 Dose: 1 puff Albuterol Sulfate (Ventolin 0.083% Nebulizer Soln -) 1 amp NEB TIDR [facility] Last Admin: 06/22/17 22:26 Dose: 1 amp Aspirin (Asa -) 81 mg PO DAILY [facility] Last Admin: 06/22/17 10:07 Dose: 81 mg Budesonide/Formoterol Fumarate (Symbicort 160/4.5mcg -) 1 puff IH BID [facility] Last Admin: 06/22/17 21:52 Dose: 1 puff Clotrimazole (Mycelex Emile's -) 10 mg PO 5XD [facility] Last Admin: 06/22/17 21:51 Dose: 10 mg Docusate Sodium (Colace -) 100 mg PO BID [facility] Last Admin: 06/22/17 21:48 Dose: 100 mg Ferrous Sulfate (Feosol -) 325 mg PO TID [facility] Last Admin: 06/22/17 21:50 Dose: 325 mg Furosemide (Lasix -) 20 mg PO BID@0600,1400 [facility] Last Admin: 06/22/17 14:52 Dose: 20 mg Hydrochlorothiazide (Hctz -) 12.5 mg PO DAILY [facility] Last Admin: 06/22/17 10:06 Dose: 12.5 mg Insulin Aspart (Novolog Vial Sliding Scale -) 1 vial SQ ACHS [facility] PRN Reason: Protocol Last Admin: 06/22/17 21:51 Dose: 2 units Meclizine HCl (Antivert -) 12.5 mg PO Q12H PRN PRN Reason: VERTIGO Last Admin: 06/21/17 13:47 Dose: 12.5 mg Methylprednisolone Sodium Succinate (Solu-Medrol -) 30 mg IVPB BID [facility] Last Admin: 06/22/17 21:52 Dose: 30 mg Nifedipine (Procardia Xl -) 30 mg PO DAILY [facility] Last Admin: 06/22/17 10:06 Dose: 30 mg Pt's Own Med (Non- Form) (Cyclosporine [Restasis] 1 Each) 1 each OU BID [facility] Last Admin: 06/22/17 21:54 Dose: 1 each Nystatin (Nystop Powder -) 1 applic TP BID [facility] Last Admin: 06/22/17 10:05 Dose: 1 applic Nystatin (Mycostatin Cream -) 1 applic TP BID [facility] Last Admin: 06/22/17 21:53 Dose: 1 applic Pantoprazole Sodium (Protonix -) 40 mg PO DAILY [facility] Last Admin: 06/22/17 10:07 Dose: 40 mg Rosuvastatin Calcium (Crestor -) 10 mg PO HS [facility] Last Admin: 06/22/17 21:50 Dose: 10 mg Sodium Chloride ([place] Nasal [place] -) 1 spray NS Q4H PRN PRN Reason: NASAL CONGESTION Last Admin: 06/22/17 10:05 Dose: 1 spray Valsartan (Diovan -) 160 mg PO DAILY [facility] Last Admin: 06/22/17 10:06 Dose: 160 mg - Objective Vital Signs: Vital Signs Temperature 98.6 F 06/22/17 18:00 Pulse Rate 85 06/22/17 18:00 Respiratory Rate 20 06/22/17 18:00 Blood Pressure 117/56 06/22/17 18:00 O2 Sat by Pulse Oximetry (%) 97 06/22/17 14:02 Labs: CBC, BMP 06/22/17 06:10 06/22/17 06:10 INR, PTT INR 2.35 (0.82-1.09) H 06/22/17 06:10 Problem List - Problems (1) COPD exacerbation Code(s): J44.1 - CHRONIC OBSTRUCTIVE PULMONARY DISEASE W (ACUTE) EXACERBATION (2) Chronic diastolic (congestive) heart failure Code(s): I50.32 - CHRONIC DIASTOLIC (CONGESTIVE) HEART FAILURE (3) Shoulder pain Code(s): M25.519 - PAIN IN UNSPECIFIED SHOULDER (4) Pulmonary embolus Code(s): I26.99 - OTHER PULMONARY EMBOLISM WITHOUT ACUTE COR PULMONALE (5) Acute on chronic respiratory failure with hypoxia and hypercapnia Code(s): J96.21 - ACUTE AND CHRONIC RESPIRATORY FAILURE WITH HYPOXIA J96.22 - ACUTE AND CHRONIC RESPIRATORY FAILURE WITH HYPERCAPNIA (6) Anemia Code(s): D64.9 - ANEMIA, UNSPECIFIED (7) Coronary artery disease Code(s): I25.10 - ATHSCL HEART DISEASE OF [place] CORONARY ARTERY W/O ANG PCTRS (8) Hypertension Code(s): I10 - ESSENTIAL (PRIMARY) HYPERTENSION (9) SOB (shortness of breath) Code(s): R06.02 - SHORTNESS OF BREATH (10) Morbid obesity Code(s): E66.01 - MORBID (SEVERE) OBESITY DUE TO EXCESS CALORIES
[2017-06-23] MEDS: WARFARIN NA 3 MG TABLET PO SCH ×2 (01:15→17:40)
[2017-06-23] MEDS: MECLIZINE HCL 12.5 MG TABLET PO PRN ×2 (01:17→14:26)
[2017-06-23] MEDS: FERROUS SO4 325 MG TABLET (FP) PO SCH ×3 (06:35→22:55)
[2017-06-23] MEDS: FUROSEMIDE 20 MG TABLET (FP) PO SCH ×2 (06:35→14:26)
[2017-06-23] MEDS: CLOTRIMAZOLE 10 MG TROCHE (FP) PO SCH ×5 (06:36→22:56)
[2017-06-23] MEDS: ALBUTEROL SO4 0.083% IH SOL 2.5 MG/3 ML VIAL.NEB. NEB SCH ×3 (06:37→22:10)
[2017-06-23] MEDS: INSULIN SLIDING SCALE (NOVOLOG) 1 VIAL SQ SCH ×4 (06:37→22:56)
[2017-06-23 09:30] LABS: INR 1.84 (0.82-1.09); PROTHROMBIN TIME (PATIENT) 20.5 SEC (9.98-11.88)
[2017-06-23] MEDS ORDERED: INSULIN (NOVOLOG) ASPART 100 UNITS/ML 10ML VIAL ONE ×2 (11:20→20:13)
[2017-06-23] MEDS: ACLIDINIUM BROMIDE 400 MCG/INH AERO.POWD IH SCH ×2 (11:23→22:57)
[2017-06-23] MEDS: BUDESONIDE/FORMETEROL FUMARATE 160/4.5 mcg INHALER IH SCH ×2 (11:23→22:57)
[2017-06-23] MEDS: DOCUSATE SODIUM 100 MG CAPSULE (FP) PO SCH ×2 (11:24→22:55)
[2017-06-23] MEDS: HYDROCHLOROTHIAZIDE 12.5 MG CAPSULE (FP) PO SCH (11:24)
[2017-06-23] MEDS: NIFEdipine E.R. 30 MG TABLET (FP) PO SCH (11:24)
[2017-06-23] MEDS: VALSARTAN 160 MG TABLET (UD) PO SCH (11:24)
[2017-06-23] MEDS: ASPIRIN 81 MG CHEWABLE TABLETS PO SCH (11:24)
[2017-06-23] MEDS: PANTOPRAZOLE 40 MG TABLET (FP) PO SCH (11:24)
[2017-06-23] MEDS: methylPREDNISolone NA SUCC 40 MG/1 ML VIAL IVPB SCH ×2 (11:24→18:03)
[2017-06-23] MEDS: NYSTATIN 100,000 UNIT/GM TOPICAL CREAM 15 GM TUBE TP SCH ×2 (11:25→22:56)
[2017-06-23] MEDS: NYSTATIN POWDER 100,000 UNITS/GM - 15 GM TOPICAL POWDER TP PRN (11:25)
[2017-06-23] MEDS: SODIUM CHLORIDE NASAL SPRAY 44 ML BOTTLE NS PRN (11:25)
[2017-06-23] MEDS: ACETAMINOPHEN 325 MG TABLET (FP) PO PRN (11:33)
--- NOTE | 2017-06-23 11:40 | PN ---
Progress Note, Physician History of Present Illness: pulmonary alert,feeling better,less dyspneic,-cp - Current Medication List Current Medications: Active Medications Acetaminophen (Tylenol -) 650 mg PO Q4H PRN PRN Reason: FEVER OR PAIN Last Admin: 06/22/17 14:58 Dose: 650 mg Aclidinium [place] (Tudorza -) 1 puff IH BID [facility] Last Admin: 06/22/17 21:53 Dose: 1 puff Albuterol Sulfate (Ventolin 0.083% Nebulizer Soln -) 1 amp NEB TIDR [facility] Last Admin: 06/23/17 06:37 Dose: 1 amp Aspirin (Asa -) 81 mg PO DAILY [facility] Last Admin: 06/22/17 10:07 Dose: 81 mg Budesonide/Formoterol Fumarate (Symbicort 160/4.5mcg -) 1 puff IH BID [facility] Last Admin: 06/22/17 21:52 Dose: 1 puff Clotrimazole (Mycelex Emile's -) 10 mg PO 5XD [facility] Last Admin: 06/23/17 06:36 Dose: 10 mg Docusate Sodium (Colace -) 100 mg PO BID [facility] Last Admin: 06/22/17 21:48 Dose: 100 mg Ferrous Sulfate (Feosol -) 325 mg PO TID [facility] Last Admin: 06/23/17 06:35 Dose: 325 mg Furosemide (Lasix -) 20 mg PO BID@0600,1400 [facility] Last Admin: 06/23/17 06:35 Dose: 20 mg Hydrochlorothiazide (Hctz -) 12.5 mg PO DAILY [facility] Last Admin: 06/22/17 10:06 Dose: 12.5 mg Insulin Aspart (Novolog Vial Sliding Scale -) 1 vial SQ ACHS [facility] PRN Reason: Protocol Last Admin: 06/23/17 06:37 Dose: 2 units Meclizine HCl (Antivert -) 12.5 mg PO Q12H PRN PRN Reason: VERTIGO Last Admin: 06/23/17 01:17 Dose: 12.5 mg Methylprednisolone Sodium Succinate (Solu-Medrol -) 30 mg IVPB BID [facility] Last Admin: 06/22/17 21:52 Dose: 30 mg Nifedipine (Procardia Xl -) 30 mg PO DAILY [facility] Last Admin: 06/22/17 10:06 Dose: 30 mg Pt's Own Med (Non- Form) (Cyclosporine [Restasis] 1 Each) 1 each OU BID [facility] Last Admin: 06/22/17 21:54 Dose: 1 each Nystatin (Nystop Powder -) 1 applic TP BID [facility] Last Admin: 06/22/17 10:05 Dose: 1 applic Nystatin (Mycostatin Cream -) 1 applic TP BID [facility] Last Admin: 06/22/17 21:53 Dose: 1 applic Pantoprazole Sodium (Protonix -) 40 mg PO DAILY [facility] Last Admin: 06/22/17 10:07 Dose: 40 mg Rosuvastatin Calcium (Crestor -) 10 mg PO HS [facility] Last Admin: 06/22/17 21:50 Dose: 10 mg Sodium Chloride ([place] Nasal [place] -) 1 spray NS Q4H PRN PRN Reason: NASAL CONGESTION Last Admin: 06/22/17 10:05 Dose: 1 spray Valsartan (Diovan -) 160 mg PO DAILY [facility] Last Admin: 06/22/17 10:06 Dose: 160 mg Warfarin Sodium (Coumadin -) 3 mg PO DAILY@1800 [facility] Last Admin: 06/23/17 01:15 Dose: 3 mg - Objective Vital Signs: Vital Signs Temperature 98.6 F 06/22/17 18:00 Pulse Rate 88 06/23/17 11:25 Respiratory Rate 20 06/22/17 22:00 Blood Pressure 132/74 06/22/17 22:00 O2 Sat by Pulse Oximetry (%) 98 06/23/17 11:25 Constitutional: Yes: Calm, Obese Eyes: Yes: WNL HENT: Yes: WNL Neck: Yes: WNL Cardiovascular: Yes: Regular Rate and Rhythm, S1, S2 Respiratory: Yes: CTA Bilaterally Gastrointestinal: Yes: Normal Bowel Sounds, Soft Extremities: Yes: WNL Edema: Yes Labs: CBC, BMP INR 1.84 (0.82-1.09) H 06/23/17 09:05 Problem List - Problems (1) COPD exacerbation Code(s): J44.1 - CHRONIC OBSTRUCTIVE PULMONARY DISEASE W (ACUTE) EXACERBATION (2) Anemia Code(s): D64.9 - ANEMIA, UNSPECIFIED (3) Chest pain Code(s): R07.9 - CHEST PAIN, UNSPECIFIED Qualifiers: Chest pain type: unspecified Qualified Code(s): R07.9 - Chest pain, unspecified (4) Chronic diastolic (congestive) heart failure Code(s): I50.32 - CHRONIC DIASTOLIC (CONGESTIVE) HEART FAILURE (5) Coronary artery disease Code(s): I25.10 - ATHSCL HEART DISEASE OF [place] CORONARY ARTERY W/O ANG PCTRS (6) History of pulmonary embolism Code(s): Z86.711 - PERSONAL HISTORY OF PULMONARY EMBOLISM (7) assisted current use of anticoagulant Code(s): Z79.01 - DESK MANAGER (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 OF 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 (8) Obesity Code(s): E66.9 - OBESITY, UNSPECIFIED (9) Pulmonary hypertension Code(s): I27.2 - OTHER SECONDARY PULMONARY HYPERTENSION (10) SOB (shortness of breath) Code(s): R06.02 - SHORTNESS OF BREATH (11) Stroke Code(s): I63.9 - CEREBRAL INFARCTION, UNSPECIFIED (12) Acute on chronic respiratory failure with hypoxia and hypercapnia Code(s): J96.21 - ACUTE AND CHRONIC RESPIRATORY FAILURE WITH HYPOXIA J96.22 - ACUTE AND CHRONIC RESPIRATORY FAILURE WITH HYPERCAPNIA Assessment/Plan IMP ACUTE ON CHRONIC HYPOXEMIC/HYPERCAPNEIC RESPIRATORY FAILURE COPD END STAGE WITH ACUTE EXACERBATION CHEST PAIN SYNDROME IMPROVED H/O PULMONARY EMBOLISM PULMONARY HTN BACK PAIN LIKELY SCIATICA HTN MORBID OBESITY L SHOULDER PAIN PLAN INHALED BRONCHODILATORS O2 STEROID TAPER ANALGESICS PT AC DR FOX Problem List - Problems (1) COPD exacerbation Code(s): J44.1 - CHRONIC OBSTRUCTIVE PULMONARY DISEASE W (ACUTE) EXACERBATION (2) Anemia Code(s): D64.9 - ANEMIA, UNSPECIFIED (3) Chest pain Code(s): R07.9 - CHEST PAIN, UNSPECIFIED Qualifiers: Chest pain type: unspecified Qualified Code(s): R07.9 - Chest pain, unspecified (4) Chronic diastolic (congestive) heart failure Code(s): I50.32 - CHRONIC DIASTOLIC (CONGESTIVE) HEART FAILURE (5) Coronary artery disease Code(s): I25.10 - ATHSCL HEART DISEASE OF [place] CORONARY ARTERY W/O ANG PCTRS (6) History of pulmonary embolism Code(s): Z86.711 - PERSONAL HISTORY OF PULMONARY EMBOLISM (7) oysterman current use of anticoagulant Code(s): Z79.01 - PENITENTIARY (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 OF 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 (8) Obesity Code(s): E66.9 - OBESITY, UNSPECIFIED (9) Pulmonary hypertension Code(s): I27.2 - OTHER SECONDARY PULMONARY HYPERTENSION (10) SOB (shortness of breath) Code(s): R06.02 - SHORTNESS OF BREATH (11) Stroke Code(s): I63.9 - CEREBRAL INFARCTION, UNSPECIFIED (12) Acute on chronic respiratory failure with hypoxia and hypercapnia Code(s): J96.21 - ACUTE AND CHRONIC RESPIRATORY FAILURE WITH HYPOXIA J96.22 - ACUTE AND CHRONIC RESPIRATORY FAILURE WITH HYPERCAPNIA
[2017-06-23] MEDS: [UNRECOGNIZED DRUG - REMARK] OU SCH ×2 (11:43→22:55)
[2017-06-23] MEDS ORDERED: WARFARIN NA 3 MG TABLET PO SCH (18:00)
[2017-06-23] MEDS: predniSONE 20 MG TABLET (UD) PO SCH (18:02)
[2017-06-23] MEDS: ROSUVASTATIN CA 10 MG TABLET (FP) PO SCH (22:55)
--- NOTE | 2017-06-23 23:25 | PN ---
Progress Note, Physician - Current Medication List Current Medications: Active Medications Acetaminophen (Tylenol -) 650 mg PO Q4H PRN PRN Reason: FEVER OR PAIN Last Admin: 06/23/17 11:33 Dose: 650 mg Aclidinium [place] (Tudorza -) 1 puff IH BID [facility] Last Admin: 06/23/17 22:57 Dose: 1 puff Albuterol Sulfate (Ventolin 0.083% Nebulizer Soln -) 1 amp NEB TIDR [facility] Last Admin: 06/23/17 22:10 Dose: 1 amp Aspirin (Asa -) 81 mg PO DAILY [facility] Last Admin: 06/23/17 11:24 Dose: 81 mg Budesonide/Formoterol Fumarate (Symbicort 160/4.5mcg -) 1 puff IH BID [facility] Last Admin: 06/23/17 22:57 Dose: 1 puff Clotrimazole (Mycelex Emile's -) 10 mg PO 5XD [facility] Last Admin: 06/23/17 22:56 Dose: 10 mg Docusate Sodium (Colace -) 100 mg PO BID [facility] Last Admin: 06/23/17 22:55 Dose: 100 mg Ferrous Sulfate (Feosol -) 325 mg PO TID [facility] Last Admin: 06/23/17 22:55 Dose: 325 mg Furosemide (Lasix -) 20 mg PO BID@0600,1400 [facility] Last Admin: 06/23/17 14:26 Dose: 20 mg Hydrochlorothiazide (Hctz -) 12.5 mg PO DAILY [facility] Last Admin: 06/23/17 11:24 Dose: 12.5 mg Insulin Aspart (Novolog Vial Sliding Scale -) 1 vial SQ ACHS [facility] PRN Reason: Protocol Last Admin: 06/23/17 22:56 Dose: 4 units Meclizine HCl (Antivert -) 12.5 mg PO Q12H PRN PRN Reason: VERTIGO Last Admin: 06/23/17 14:26 Dose: 12.5 mg Nifedipine (Procardia Xl -) 30 mg PO DAILY [facility] Last Admin: 06/23/17 11:24 Dose: 30 mg Pt's Own Med (Non- Form) (Cyclosporine [Restasis] 1 Each) 1 each OU BID [facility] Last Admin: 06/23/17 22:55 Dose: 1 each Nystatin (Nystop Powder -) 1 applic TP BID [facility] Last Admin: 06/23/17 11:25 Dose: 1 applic Nystatin (Mycostatin Cream -) 1 applic TP BID [facility] Last Admin: 06/23/17 22:56 Dose: 1 applic Pantoprazole Sodium (Protonix -) 40 mg PO DAILY [facility] Last Admin: 06/23/17 11:24 Dose: 40 mg Prednisone (Deltasone -) 40 mg PO DAILY [facility] Last Admin: 06/23/17 18:02 Dose: 40 mg Rosuvastatin Calcium (Crestor -) 10 mg PO HS [facility] Last Admin: 06/23/17 22:55 Dose: 10 mg Sodium Chloride ([place] Nasal [place] -) 1 spray NS Q4H PRN PRN Reason: NASAL CONGESTION Last Admin: 06/23/17 11:25 Dose: 1 spray Valsartan (Diovan -) 160 mg PO DAILY [facility] Last Admin: 06/23/17 11:24 Dose: 160 mg Warfarin Sodium (Coumadin -) 3 mg PO DAILY@1800 [facility] Last Admin: 06/23/17 17:40 Dose: 3 mg - Objective Vital Signs: Vital Signs Temperature 98.0 F 06/23/17 17:00 Pulse Rate 62 06/23/17 17:00 Respiratory Rate 18 06/23/17 17:00 Blood Pressure 117/62 06/23/17 17:00 O2 Sat by Pulse Oximetry (%) 98 06/23/17 19:45 Labs: CBC, BMP 06/22/17 06:10 06/22/17 06:10 INR, PTT INR 1.84 (0.82-1.09) H 06/23/17 09:05 Problem List - Problems (1) COPD exacerbation Code(s): J44.1 - CHRONIC OBSTRUCTIVE PULMONARY DISEASE W (ACUTE) EXACERBATION (2) Chronic diastolic (congestive) heart failure Code(s): I50.32 - CHRONIC DIASTOLIC (CONGESTIVE) HEART FAILURE (3) Shoulder pain Code(s): M25.519 - PAIN IN UNSPECIFIED SHOULDER (4) Pulmonary embolus Code(s): I26.99 - OTHER PULMONARY EMBOLISM WITHOUT ACUTE COR PULMONALE (5) Acute on chronic respiratory failure with hypoxia and hypercapnia Code(s): J96.21 - ACUTE AND CHRONIC RESPIRATORY FAILURE WITH HYPOXIA J96.22 - ACUTE AND CHRONIC RESPIRATORY FAILURE WITH HYPERCAPNIA (6) Anemia Code(s): D64.9 - ANEMIA, UNSPECIFIED (7) Coronary artery disease Code(s): I25.10 - ATHSCL HEART DISEASE OF [place] CORONARY ARTERY W/O ANG PCTRS (8) Hypertension Code(s): I10 - ESSENTIAL (PRIMARY) HYPERTENSION (9) SOB (shortness of breath) Code(s): R06.02 - SHORTNESS OF BREATH (10) Morbid obesity Code(s): E66.01 - MORBID (SEVERE) OBESITY DUE TO EXCESS CALORIES
[2017-06-24] MEDS: FERROUS SO4 325 MG TABLET (FP) PO SCH ×2 (06:36→14:02)
[2017-06-24] MEDS: CLOTRIMAZOLE 10 MG TROCHE (FP) PO SCH ×3 (06:37→14:02)
[2017-06-24] MEDS: FUROSEMIDE 20 MG TABLET (FP) PO SCH ×2 (06:37→14:02)
[2017-06-24] MEDS: ALBUTEROL SO4 0.083% IH SOL 2.5 MG/3 ML VIAL.NEB. NEB SCH ×2 (06:40→14:36)
[2017-06-24] MEDS: MECLIZINE HCL 12.5 MG TABLET PO PRN (06:40)
[2017-06-24] MEDS: INSULIN SLIDING SCALE (NOVOLOG) 1 VIAL SQ SCH ×2 (06:40→11:47)
[2017-06-24] MEDS ORDERED: INSULIN (NOVOLOG) ASPART 100 UNITS/ML 10ML VIAL ONE ×2 (06:55→11:47)
[2017-06-24] MEDS ORDERED: PT OWN MED DRAWER 7, Y5N ONE (06:55)
--- NOTE | 2017-06-24 08:47 | PN ---
Progress Note (short form) - Note Progress Note: Feeling much better Wheezing improved. Vitals reviewed in EMR, stable. Chest: decreased breath sounds but no wheezing (chronically decreased breath sounds) CV: S1-2. Regular. Ext: no edema REC: Ok for discharge from CV perspective. She has superficial bruises on arms (coumadin + Steroids) which need to be watched; but stopping coumadin is not option.
[2017-06-24] MEDS: BUDESONIDE/FORMETEROL FUMARATE 160/4.5 mcg INHALER IH SCH (09:31)
[2017-06-24] MEDS: NYSTATIN POWDER 100,000 UNITS/GM - 15 GM TOPICAL POWDER TP PRN (09:32)
[2017-06-24] MEDS: ACLIDINIUM BROMIDE 400 MCG/INH AERO.POWD IH SCH (09:32)
[2017-06-24] MEDS: SODIUM CHLORIDE NASAL SPRAY 44 ML BOTTLE NS PRN (09:32)
[2017-06-24] MEDS: PANTOPRAZOLE 40 MG TABLET (FP) PO SCH (09:33)
[2017-06-24] MEDS: NYSTATIN 100,000 UNIT/GM TOPICAL CREAM 15 GM TUBE TP SCH (09:33)
[2017-06-24] MEDS: predniSONE 20 MG TABLET (UD) PO SCH (09:33)
[2017-06-24] MEDS: VALSARTAN 160 MG TABLET (UD) PO SCH (09:34)
[2017-06-24] MEDS: ASPIRIN 81 MG CHEWABLE TABLETS PO SCH (09:34)
[2017-06-24] MEDS: NIFEdipine E.R. 30 MG TABLET (FP) PO SCH (09:34)
[2017-06-24] MEDS: DOCUSATE SODIUM 100 MG CAPSULE (FP) PO SCH (09:34)
[2017-06-24] MEDS: [UNRECOGNIZED DRUG - REMARK] OU SCH (09:34)
[2017-06-24] MEDS: HYDROCHLOROTHIAZIDE 12.5 MG CAPSULE (FP) PO SCH (09:34)
[2017-06-24] MEDS: ACETAMINOPHEN 325 MG TABLET (FP) PO PRN (09:48)
[2017-06-24] MEDS ORDERED: methylPREDNISolone NA SUCC 40 MG/1 ML VIAL IVPB SCH (10:00)
[2017-06-24 11:31] LABS: MCH 21.6 pg (25.7-33.7); MEAN PLT VOLUME 9.1 fl (7.5-11.1); PLATELET COUNT 231 K/MM3 (134-434); RDW 15.7 % (11.6-15.6); WHITE BLOOD COUNT 21.5 K/mm3 (4.0-10.0)
[2017-06-24 11:34] VITALS: PULSE 94
[2017-06-24] MEDS ORDERED: predniSONE 10 MG TABLET (UD) PO SCH (11:38)
--- NOTE | 2017-06-24 11:40 | PN ---
Progress Note (short form) - Note Progress Note: PULMONARY SUBJECTIVE IMPROVEMENT VSS ANICTERIC MINIMAL EXP RHONCHI LEFT BASE S1S2 OBESE SOFT MILD LOWER EXT EDEMA LABS/MEDS/NOTES/IMAGING/MEDS/ REVIEWED IMP ACUTE ON CHRONIC HYPOXEMIC/HYPERCAPNEIC RESPIRATORY FAILURE RESOLVED COPD END STAGE WITH ACUTE EXACERBATION RESOLVED CHEST PAIN SYNDROME H/O PULMONARY EMBOLISM PULMONARY HTN BACK PAIN LIKELY SCIATICA HTN MORBID OBESITY PLAN INHALED BRONCHODILATORS O2 STEROIDS TO TAPER ANALGESICS ANTICOAGULATION/DIURETICS NO OBJECTION FROM A PULMONARY STANDPOINT FOR CONTINUING TREATMENT IN A SNF REHAB Danny ROMERO MD
[2017-06-24 11:43] LABS: INR 1.88 (0.82-1.09); PROTHROMBIN TIME (PATIENT) 20.9 SEC (9.98-11.88)
[2017-06-24 12:16] LABS: ALBUMIN 3.4 g/dl (3.4-5.0); ANION GAP 9 (8-16); CALCIUM 8.6 mg/dL (8.5-10.1); CO2 40 mmol/L (21-32); GLUCOSE,RANDOM 178 mg/dL (74-106); SGPT/ALT 34 U/L (12-78)
[2017-06-24 12:19] LABS: ALK PHOS 67 U/L (45-117); BILIRUBIN,TOTAL 0.6 mg/dL (0.2-1.0); CREATININE 1.2 mg/dL (0.55-1.02); SGOT/AST 18 U/L (15-37); TOT PROT 5.9 g/dl (6.4-8.2)
[2017-06-24 12:31] VITALS: BP 131/56; TEMP 98.1
== END 2017-06-24 16:33 | DRG 189 ==
LOC: JER 15:15 → JERBED 18:30 → UNDOADMIN 19:09 → J5S 06-15 11:57
PROVIDERS: ADMIT Internal Medicine; ATTEND Internal Medicine
DX: J96.20 Acute and chronic respiratory failure, unspecified whether with hypoxia or hypercapnia (principal); J44.1 Chronic obstructive pulmonary disease with (acute) exacerbation; Z68.42 Body mass index [BMI] 45.0-49.9, adult; I50.32 Chronic diastolic (congestive) heart failure; Z99.81 Dependence on supplemental oxygen; E66.9 Obesity, unspecified; M71.9 Bursopathy, unspecified; Z87.891 Personal history of nicotine dependence; I27.2 Other secondary pulmonary hypertension; M54.30 Sciatica, unspecified side
CPT/HCPCS: 36415; 36600; 71010-TC; 73030-TC-RT; 80053; 82375; 82553; 82803; 83050; 83880; 84484; 85025; 85027; 85610; 93005; 93010; 93306-TC; 94640; 97116-GP; 97161-GP; 99285-25

== ENCOUNTER 2017-08-20 16:08 | Inpatient (IN) | payer OTHER ==
[2017-08-20] MEDS ORDERED: ALBUTEROL SO4 2.5/IPRATROPIUM 0.5 INH SOL 3 ML VIAL.NEB. NEB ONE ×2 (16:21→16:22)
[2017-08-20] MEDS ORDERED: methylPREDNISolone NA SUCC 125 MG/2 ML VIAL IVPUSH ONE (16:22)
--- NOTE | 2017-08-20 16:27 | PDOC ---
Attending Attestation - Resident Resident Name: Wicho Mills - HPI HPI: 08/20/17 17:13 Pt presents to the ED complaining of the acute onset of shortness of breath two hours ago. Patient has a history of severe COPD on chronic home O2 and a history of intubations. - Physicial Exam PE: 08/20/17 17:15 patient presented to the ED with severe tachpnea, speaking in one word sentences. + decreased air entry and accesory muscle use. Improving dramatically with nebs and bipap. - Medical Decision Making 08/20/17 17:16 Pt presents to the ED complaining of shortness of breath similar to previous COPD exacerbations. Improving dramatically on bipap. Most likely COPd exacerbation. Will treat with nebs and steroids, check labs and admit to medicine. <Romy Becerra - Last Filed: 08/20/17 17:13> - Medical Decision Making 08/20/17 18:[address] Whitlock [phone] 08/20/17 18:[address] Whitlock a second time <[place]a [place] - Last Filed: 08/20/17 18:36>
[2017-08-20] MEDS ORDERED: SODIUM CHLORIDE 0.9% 1000 ML INFUS.BAG IV ONE (16:30)
[2017-08-20 16:52] LABS: BASOPHIL 0.4 % (0-2.0); EOSINOPHIL 0.1 % (0-4.5); MCHC 28.8 g/dl (32.0-36.0); MEAN CELL VOLUME 76.4 fl (80-96); MEAN PLT VOLUME 9.8 fl (7.5-11.1); NEUTROPHILS 90.7 % (42.8-82.8); PLATELET COUNT 274 K/MM3 (134-434); RDW 16.1 % (11.6-15.6); WHITE BLOOD COUNT 15.3 K/mm3 (4.0-10.0)
[2017-08-20 17:04] LABS: PROTHROMBIN TIME (PATIENT) 54.9 SEC (9.98-11.88)
[2017-08-20 17:07] LABS: ACTIVATED PTT 42.5 SECONDS (26.9-34.4)
[2017-08-20 17:13] LABS: INR 4.86 (0.82-1.09)
[2017-08-20 17:17] LABS: ALBUMIN 3.9 g/dl (3.4-5.0); ANION GAP 12 (8-16); BILIRUBIN,TOTAL 0.5 mg/dL (0.2-1.0); CALCIUM 8.8 mg/dL (8.5-10.1); CO2 28 mmol/L (21-32); CREATININE 1.4 mg/dL (0.55-1.02); GLUCOSE,RANDOM 237 mg/dL (74-106); SGOT/AST 26 U/L (15-37); SGPT/ALT 29 U/L (12-78); TOT PROT 6.8 g/dl (6.4-8.2)
[2017-08-20 17:20] LABS: ALK PHOS 62 U/L (45-117); CPK 184 IU/L (26-192); TROPONIN I < 0.02 ng/ml (0.00-0.05)
[2017-08-20 17:36] LABS: ARTERIAL BLD GAS O2 SATURATION 99.9 % (90-98.9); ARTERIAL BLOOD GAS BASE EXCESS 6.4 meq/l (-2-2); ARTERIAL BLOOD GAS HCO3 32.8 meq/L (22-26); ARTERIAL BLOOD GAS pH 7.33 (7.35-7.45)
[2017-08-20 17:37] LABS: ALLENS TEST POSITIVE; ART PUNCT SITE RIGHT RADIAL; LPM/O2% 60%; MECH. VENT. BIPAP; METHEMOGLOBIN 0.5 % (0.4-1.5); PT. ON O2? YES; TYPE OF O2 BIPAP
[2017-08-20 17:38] LABS: VENT RATE 12
--- NOTE | 2017-08-20 18:20 | PDOC ---
History of Present Illness <Ren Hernandez - Last Filed: 08/20/17 19:29> - General History Source: Patient Exam Limitations: No Limitations - History of Present Illness Initial Comments: 08/20/17 18:12 The patient is a 67F with a PMH of COPD (on 4L at home), PE, and morbid obesity , who presents to the ED with shortness of breath. The patient states that she began not feeling well 3 days ago, but today she began to feel chills, cough, and became extremely short of breath. This happened in May of this year and she was admitted. She has been intubated once in the past but she does not recall when. The patient states that she was having CP, SOB, with some chills, but denies fevers, dysuria, cough, congestion. All: none PCP: Dr. Springer <[place] - Last Filed: 08/20/17 19:32> - General Chief Complaint: Shortness of Breath Stated Complaint: SHORTNESS OF BREATH Time Seen by Provider: 08/20/17 16:22 Past History <Ren Hernandez - Last Filed: 08/20/17 19:29> - Past Medical History Anemia: Yes Asthma: Yes Cancer: No Cardiac Disorders: No CVA: Yes COPD: Yes CHF: Yes Dementia: No Diabetes: No GI Disorders: No Disorders: No HTN: Yes Hypercholesterolemia: Yes Liver Disease: No Seizures: No Thyroid Disease: No - Surgical History Cardiac Surgery: No Neurologic Surgery: No Orthopedic Surgery: Yes - Immunization History Immunization Up to Date: Yes - Suicide/Smoking/Psychosocial Hx Smoking Status: No Smoking History: Unknown if ever smoked Have you smoked in the past 12 months: No Number of Cigarettes Smoked Daily: 0 If you are a former smoker, when did you quit?: 1998 Cigars Per Day: 5 Information on smoking cessation initiated: No 'Breaking Loose' booklet given: 11/20/13 Hx Alcohol Use: No Drug/Substance Use Hx: No Substance Use Type: None Hx Substance Use Treatment: No <[place] - Last Filed: 08/20/17 19:32> - Past Medical History Allergies/Adverse Reactions: Allergies Allergy/AdvReac Type Severity Reaction Status Date / Time No Known Allergies Allergy Verified 06/14/17 15:30 Home Medications: Ambulatory Orders Mometasone Furoate [Nasonex] 1 - 2 inh NS PRN 01/21/14 Olmesartan/Hydrochlorothiazide [Benicar Hct 20-12.5 mg Tablet] 1 each PO DAILY 01/21/14 Promethazine/Phenyleph/Codeine [Promethazine Vc-Codeine Syrup] 120 ml PO PRN Aspirin [ASA -] 81 mg PO DAILY #30 tab.chew 08/03/14 Cholecalciferol (Vitamin D3) [Vitamin D3] 2,000 unit PO DAILY #30 capsule Docusate Sodium [Colace -] 200 mg PO PRN #30 capsule 08/03/14 Miconazole Nitrate [Miconazole Nitrate -] 1 applic TP PRN #7 tube 08/03/14 Clobetasol Propionate/Emoll [Olux-E 0.05% Foam] 100 gm TP PRN 11/20/15 Acetaminophen [Tylenol] 650 mg PO TID PRN 11/23/15 Colchicine [Colcrys] 0.6 mg PO DAILY PRN 11/23/15 Nystatin Oral Suspension - [Nystatin Oral Susp 641446 Units/5 ML -] 5 ml PO BID 11/23/15 Olopatadine HCl [Patanase] 665 mcg NS DAILY 11/23/15 Budesonide/Formeterol Fumarate [SYMBICORT 160/4.5mcg -] 1 inh PO BID #7 inhaler 11/26/15 Cyclosporine [Restasis] 1 each OP BID #30 droperette 11/26/15 Ferrous Sulfate [Feosol] 325 mg PO TID #30 ud 11/26/15 Furosemide [Lasix -] 20 mg PO BID #60 tablet 11/26/15 Guaifenesin AC [Robitussin AC -] 5 ml PO Q6H PRN #30 liquid 11/26/15 Meclizine HCl [Antivert -] 12.5 mg PO BID #30 tablet 11/26/15 Nifedipine ER [Procardia XL -] 30 mg PO DAILY #30 tab.er.24 11/26/15 Pantoprazole Sodium [Protonix -] 40 mg PO DAILY #30 tablet.ec 11/26/15 Rosuvastatin Calcium [Crestor] 10 mg PO HS #30 tablet 11/26/15 Tiotropium [place] [Spiriva] 1 inh PO DAILY #7 inh 11/26/15 Warfarin Na [Coumadin -] 3 mg PO HS 06/14/17 Albuterol 0.083% Nebulizer Claudia [Ventolin 0.083% Nebulizer Soln -] 1 amp NEB TIDR amp 06/24/17 Furosemide [Lasix -] 20 mg PO BID@0600,1400 tablet 06/24/17 Insulin Sliding Scale [Novolog Vial Sliding Scale -] 1 vial SQ ACHS units 06/24 Nystatin Cream [Mycostatin Cream -] 1 applic TP BID applic 06/24/17 Nystatin Powder [Nystop Powder -] 1 applic TP BID PRN #0 applic 06/24/17 Prednisone [Deltasone -] 40 mg PO DAILY tablet 06/24/17 Sodium Chloride Nasal [place] [[place] Nasal [place] -] 1 spray NS Q4H PRN #0 spray 06/24/17 Valsartan [Diovan] 160 mg PO DAILY tablet 06/24/17 Warfarin Na [Coumadin -] 3 mg PO DAILY@1800 tablet 06/24/17 Review of Systems - Review of Systems Able to Perform ROS?: Yes Comments:: 08/20/17 18:21 GENERAL/CONSTITUTIONAL: No fever. No weakness. Positive for chills. HEAD, EYES, EARS, NOSE AND THROAT: No change in vision. No ear pain or discharge. No sore throat. GASTROINTESTINAL: No nausea, vomiting, diarrhea, constipation, or abdominal pain. GENITOURINARY: No dysuria, frequency, hematuria, or change in urination. CARDIOVASCULAR: No palpitations or lightheadedness. Positive for chest pain. RESPIRATORY: No cough, wheezing, or hemoptysis. Positive for shortness of breath. MUSCULOSKELETAL: No joint or muscle swelling or pain. No neck or back pain. SKIN: No rash or lesions. NEUROLOGIC: No headache, numbness, tingling, weakness, loss of consciousness, or change in strength/sensation. ENDOCRINE: No increased thirst. No abnormal weight change. HEMATOLOGIC/LYMPHATIC: No anemia, easy bleeding, or history of blood clots. ALLERGIC/IMMUNOLOGIC: No hives or skin allergy. Is the patient limited [place] proficient: No <[place] - Last Filed: 08/20/17 19:32> *Physical Exam - Vital Signs Last Vital Signs Temp Pulse Resp BP Pulse Ox 97.6 F 103 H 20 120/63 100 08/20/17 16:12 08/20/17 16:55 08/20/17 16:55 08/20/17 16:55 08/20/17 16:55 <Ren Hernandez - Last Filed: 08/20/17 19:29> - Vital Signs Last Vital Signs Temp Pulse Resp BP Pulse Ox 97.6 F 103 H 20 120/63 100 08/20/17 16:12 08/20/17 16:55 08/20/17 16:55 08/20/17 16:55 08/20/17 16:55 - Physical Exam General Appearance: Yes: Nourished, Appropriately Dressed. No: Apparent Distress HEENT: positive: Normal Voice, Hearing Grossly Normal Respiratory/Chest: positive: Normal Breath Sounds, Accessory Muscle Use. negative: Chest Tender, Lungs Clear (Coarse breath sounds b/l lower lobes.), Respiratory Distress, Labored Respiration Cardiovascular: positive: Regular Rhythm, Regular Rate, S1, S2. negative: Diastolic Murmur, Systolic Murmur Gastrointestinal/Abdominal: positive: Flat, Soft. negative: Tender, Guarding, Rebound, Tenderness Integumentary: positive: Dry, Warm. negative: Clammy, Ecchymosis Neurologic: positive: Fully Oriented, Alert, Normal Mood/Affect, Motor Strength 5/5 <[place] - Last Filed: 08/20/17 19:32> Heart Score/ECG Review #1 08/20/17 19:29 Vent rate 91 bpm Normal sinus rhythm Normal ECG <Ren Hernandez - Last Filed: 08/20/17 19:29> - ECG Impressions Comment:: 08/20/17 18:25 NSR Rate 108 QRS 64 QTc 452 <[place] - Last Filed: 08/20/17 19:32> ED Treatment Course - LABORATORY CBC & Chemistry Diagram: 08/20/17 16:46 08/20/17 16:46 - ADDITIONAL ORDERS Additional order review: Laboratory Results 08/20/17 08/20/17 08/20/17 17:30 16:46 16:46 PT with INR INR PTT (Actin FS) Puncture Site Right radial ABG pH 7.33 L ABG pCO2 at Pt Temp 63.8 H* ABG pO2 at Pt Temp 244.0 H* ABG HCO3 32.8 H ABG O2 Sat (Measured) 99.9 H* ABG O2 Content 12.0 L ABG Base Excess 6.4 H Willy Test Positive Carboxyhemoglobin 1.2 Methemoglobin 0.5 O2 Delivery Device Bipap Oxygen Flow Rate 60% Vent Mode S/t Vent Rate 12 Mechanical Rate Bipap PEEP 0.0 Pressure Support Vent 12/5 Sodium Potassium Chloride Carbon Dioxide Anion Gap BUN Creatinine Creat Clearance w eGFR Random Glucose Lactic Acid 3.4 H* Calcium Total Bilirubin AST ALT Alkaline Phosphatase Creatine Kinase Creatine Kinase Index CK-MB (CK-2) Troponin I Total Protein Albumin Blood Type O POSITIVE Antibody Screen Negative 08/20/17 08/20/17 16:46 16:46 PT with INR 54.90 H INR 4.86 H* D PTT (Actin FS) 42.5 H Puncture Site ABG pH ABG pCO2 at Pt Temp ABG pO2 at Pt Temp ABG HCO3 ABG O2 Sat (Measured) ABG O2 Content ABG Base Excess Willy Test Carboxyhemoglobin Methemoglobin O2 Delivery Device Oxygen Flow Rate Vent Mode Vent Rate Mechanical Rate PEEP Pressure Support Vent Sodium 143 Potassium 4.3 D Chloride 103 D Carbon Dioxide 28 D Anion Gap 12 BUN 15 D Creatinine 1.4 H Creat Clearance w eGFR 37.28 Random Glucose 237 H D Lactic Acid Calcium 8.8 Total Bilirubin 0.5 AST 26 D ALT 29 Alkaline Phosphatase 62 Creatine Kinase 184 Creatine Kinase Index 0.8 CK-MB (CK-2) 1.631 Troponin I < 0.02 Total Protein 6.8 Albumin 3.9 Blood Type Antibody Screen 08/20/17 16:46 RBC 4.03 MCV 76.4 L MCHC 28.8 L RDW 16.1 H MPV 9.8 Neutrophils % 90.7 H Lymphocytes % 5.6 L Monocytes % 3.2 L Eosinophils % 0.1 D Basophils % 0.4 D - Medications Given in the ED: ED Medications Discontinued Medications Generic Name Dose Route Start Last Admin Trade Name Freq PRN Reason Stop Dose Admin Albuterol/Ipratropium 1 amp 08/20/17 16:22 08/20/17 16:32 Duoneb - NEB 08/20/17 16:23 1 amp ONCE ONE Administration Methylprednisolone Sodium Succinate 125 mg 08/20/17 16:22 08/20/17 16:32 Solu-Medrol - IVPUSH 08/20/17 16:23 125 mg ONCE ONE Administration Sodium Chloride 500 ml 08/20/17 16:30 08/20/17 16:47 Normal Saline - IV 08/20/17 16:31 500 ml ONCE ONE Administration <Ren Hernandez - Last Filed: 08/20/17 19:29> - LABORATORY CBC & Chemistry Diagram: 08/20/17 16:46 08/20/17 16:46 - ADDITIONAL ORDERS Additional order review: Laboratory Results 08/20/17 08/20/17 08/20/17 17:30 16:46 16:46 PT with INR INR PTT (Actin FS) Puncture Site Right radial ABG pH 7.33 L ABG pCO2 at Pt Temp 63.8 H* ABG pO2 at Pt Temp 244.0 H* ABG HCO3 32.8 H ABG O2 Sat (Measured) 99.9 H* ABG O2 Content 12.0 L ABG Base Excess 6.4 H Willy Test Positive Carboxyhemoglobin 1.2 Methemoglobin 0.5 O2 Delivery Device Bipap Oxygen Flow Rate 60% Vent Mode S/t Vent Rate 12 Mechanical Rate Bipap PEEP 0.0 Pressure Support Vent 12/5 Sodium Potassium Chloride Carbon Dioxide Anion Gap BUN Creatinine Creat Clearance w eGFR Random Glucose Lactic Acid 3.4 H* Calcium Total Bilirubin AST ALT Alkaline Phosphatase Creatine Kinase Creatine Kinase Index CK-MB (CK-2) Troponin I Total Protein Albumin Blood Type O POSITIVE Antibody Screen Negative 08/20/17 08/20/17 16:46 16:46 PT with INR 54.90 H INR 4.86 H* D PTT (Actin FS) 42.5 H Puncture Site ABG pH ABG pCO2 at Pt Temp ABG pO2 at Pt Temp ABG HCO3 ABG O2 Sat (Measured) ABG O2 Content ABG Base Excess Willy Test Carboxyhemoglobin Methemoglobin O2 Delivery Device Oxygen Flow Rate Vent Mode Vent Rate Mechanical Rate PEEP Pressure Support Vent Sodium 143 Potassium 4.3 D Chloride 103 D Carbon Dioxide 28 D Anion Gap 12 BUN 15 D Creatinine 1.4 H Creat Clearance w eGFR 37.28 Random Glucose 237 H D Lactic Acid Calcium 8.8 Total Bilirubin 0.5 AST 26 D ALT 29 Alkaline Phosphatase 62 Creatine Kinase 184 Creatine Kinase Index 0.8 CK-MB (CK-2) 1.631 Troponin I < 0.02 Total Protein 6.8 Albumin 3.9 Blood Type Antibody Screen 08/20/17 16:46 RBC 4.03 MCV 76.4 L MCHC 28.8 L RDW 16.1 H MPV 9.8 Neutrophils % 90.7 H Lymphocytes % 5.6 L Monocytes % 3.2 L Eosinophils % 0.1 D Basophils % 0.4 D - RADIOLOGY Radiology Studies Ordered: Category Date Time Status CHEST X-RAY PORTABLE* [RAD] Stat Radiology 08/20/17 16:30 Ordered - Medications Given in the ED: ED Medications Discontinued Medications Generic Name Dose Route Start Last Admin Trade Name Freq PRN Reason Stop Dose Admin Albuterol/Ipratropium 1 amp 08/20/17 16:22 08/20/17 16:32 Duoneb - NEB 08/20/17 16:23 1 amp ONCE ONE Administration Methylprednisolone Sodium Succinate 125 mg 08/20/17 16:22 08/20/17 16:32 Solu-Medrol - IVPUSH 08/20/17 16:23 125 mg ONCE ONE Administration Sodium Chloride 500 ml 08/20/17 16:30 08/20/17 16:47 Normal Saline - IV 08/20/17 16:31 500 ml ONCE ONE Administration <[place] - Last Filed: 08/20/17 19:32> Medical Decision Making - Medical Decision Making 08/20/17 18:27 The patient is a 67F with a PMH of COPD on 4L, PE on coumadin who presents to the ED with SOB. On the differential is a PE, acute exacerbation of COPD, ACS, PNA. Will order appropriate labs/imaging. Lactate 3.4. 08/20/17 18:31 Labs significant for WBC count of 15.3, Hgb 8.9 (normal for pt), INR of 4.86, pCO2 on ABG 63.8. Will discuss with attending. 08/20/17 19:26 I took the patient off bipap and she is tolerating 7L O2 nasal canula. She is satting 100%. She complained of chest pressure so I ordered a stat EKG. It showed NSR. Patient admitted to Dr. Whitlock's service. Patient signed out to night resident, Dr. Morris. <[place] - Last Filed: 08/20/17 19:32> *DC/Admit/Observation/Transfer <Hernandez,Ren - Last Filed: 08/20/17 19:29> - Discharge Dispostion Admit: Yes <[place]o [place] - Last Filed: 08/20/17 19:32> Diagnosis at time of Disposition: SOB (shortness of breath) - Discharge Dispostion Condition at time of disposition: Stable - Referrals Referrals: Jerome Springer MD [Primary Care Provider] -
[2017-08-20] MEDS ORDERED: PIPERACILLIN/TAZOB 3.375 GM/50 ML PRE-DOCKED IV ONE (18:40)
[2017-08-20] MEDS ORDERED: SODIUM CHLORIDE 500 ML IV ONE (19:32)
[2017-08-20 20:08] LABS: PLATELET COMMENT2 NO CLOTTING DETECTED; PLATELET ESTIMATE ADEQUATE (NORMAL)
[2017-08-20 20:09] LABS: ANISOCYTOSIS 2+; HYPOCHROMIA 1+; MICROCYTOSIS 1+
[2017-08-20 20:12] LABS: URINE APPEARANCE SLCLOUDY; URINE BILIRUBIN NEGATIVE (NEGATIVE); URINE BLOOD NEGATIVE (NEGATIVE); URINE COLOR YELLOW; URINE GLUCOSE (UA) NEGATIVE (NEGATIVE); URINE KETONE NEGATIVE (NEGATIVE); URINE NITRITE NEGATIVE (NEGATIVE); URINE UROBILINOGEN NEGATIVE mg/dL (0.2-1.0)
[2017-08-20 20:16] LABS: URINE PROTEIN 2+ (NEGATIVE)
[2017-08-20 20:17] LABS: URINE HYALINE CAST 1 /lpf; URINE MUCUS RARE; URINE RBC 2 /hpf (0-3); URINE WBC 6 /hpf (3-5)
[2017-08-20 21:26] LABS: URINE LEUK ESTERASE TRACE (NEGATIVE)
[2017-08-20] MEDS ORDERED: PIPERACILLIN/TAZOB 3.375 GM 50 ML IVPB ONE (21:49)
[2017-08-20] MEDS: VANCOMYCIN 1,000 MG in DEXTROSE 5%-WATER - 250 ML IVPB SCH (23:00)
[2017-08-21] MEDS ORDERED: SODIUM CHLORIDE NASAL SPRAY 44 ML BOTTLE NS PRN (03:33)
[2017-08-21 03:34] LABS: VENOUS PH 7.25 (7.32-7.42)
[2017-08-21 03:37] LABS: VENOUS BLOOD GAS HCO3 31.8 meq/L (19-25)
[2017-08-21] MEDS ORDERED: LEVOFLOXACIN 500 MG IVPB 100 ML IVPB ONE ×2 (03:39→04:31)
[2017-08-21] MEDS ORDERED: DOCUSATE SODIUM 100 MG CAPSULE (FP) PO SCH (03:45)
[2017-08-21] MEDS ORDERED: methylPREDNISolone NA SUCC 40 MG/1 ML VIAL ONE (04:33)
[2017-08-21] MEDS: methylPREDNISolone NA SUCC 40 MG/1 ML VIAL IVPUSH SCH ×3 (04:56→17:22)
[2017-08-21] MEDS ORDERED: FUROSEMIDE 20 MG TABLET (FP) PO SCH (06:00)
[2017-08-21] MEDS: FERROUS SO4 325 MG TABLET (FP) PO SCH ×3 (06:10→23:03)
[2017-08-21] MEDS: INSULIN SLIDING SCALE (NOVOLOG) 1 VIAL SQ SCH ×4 (07:00→23:02)
--- NOTE | 2017-08-21 09:09 | CON.CARD ---
Cardiology Consult (text) - Consultation Consultation Note: Cardiology Consult Well known to out service: 67F, former smoker with severe COPD, history of PE on coumadin, mild non-obstx CAD, HTN, chronic diastolic CHF admitted again with increased PRIMO, wheezing, cough. Received IV steroids in ER wih improvement in sx. She has chronic PICKERING, chronic chest pain associated w/ cough; recently discharged from rehab. Denies fever or chills. No syncope. No palps. + edema b/l CXR showed mildly increased PVC. MEDS: reviewed in EMR Solumedrol Diovan and Benicar/HCT ASA Statin Levaquin ALL: None FH: Non- contrib SH: Former smoker. Over 25 pack years, quit. Exam: 96% on 2L NC, BP: 140s/70s P: 70s and regular Anicteric CV: S1, 2. RRR Chest: diffusely decreased breath sounds, currently no active wheezing Abd: obese soft, NT Ext: 2+ pitting edema to mid villagomez b/l Labs and Data: ECG: NSR with no acute ST changes CXR: reviewed. Microbiology Laboratory Tests 06/22/17 06/22/17 06/22/17 06:10 06:10 06:10 WBC Hgb 8.6 L Hct Plt Count 215 INR 2.35 H Puncture Site ABG pCO2 at Pt Temp ABG pO2 at Pt Temp Sodium Potassium Creatinine Lactic Acid Calcium 8.8 Total Bilirubin 0.4 AST 15 D ALT 29 Alkaline Phosphatase 59 Creatine Kinase Troponin I 08/20/17 08/20/17 08/20/17 16:46 16:46 16:46 WBC 15.3 H Hgb 8.9 L Hct 30.8 L Plt Count 274 INR 4.86 H* D Puncture Site ABG pCO2 at Pt Temp ABG pO2 at Pt Temp Sodium 143 Potassium 4.3 D Creatinine 1.4 H Lactic Acid Calcium Total Bilirubin AST ALT Alkaline Phosphatase Creatine Kinase 184 Troponin I < 0.02 08/20/17 08/20/17 16:46 17:30 WBC Hgb Hct Plt Count INR Puncture Site Right radial ABG pCO2 at Pt Temp 63.8 H* ABG pO2 at Pt Temp 244.0 H* Sodium Potassium Creatinine Lactic Acid 3.4 H* Calcium Total Bilirubin AST ALT Alkaline Phosphatase Creatine Kinase Troponin I IMP: AECOPD Acute on chronic diastolic CHF, mild exacerbation History of PE on coumadin REC: 1. CHF: mildly decompensated acute on chronic diastolic CHF -Mild CAD on recent cath -Recent echo in February with normal LV function -Will switch Lasix to 40mg IV daily -Ordered for both Alondra and Ana, will hold one for now -Daily weights, low sodium diet 2. AECOPD: -As per PMD and pulmonary -She also has chronic PHTN due to COPD which leads to right sided CHF symptoms 3. History of PEs on coumadin: -INR supratherapeutic -Hold coumadin until IN drifts within desired range of 2-3 and then resume at adjusted dose with daily INRs while on Abx.
--- NOTE | 2017-08-21 09:09 | EKG ---
Test Reason : Blood Pressure : / mmHG Vent. Rate : 091 BPM Atrial Rate : 091 BPM P-R Int : 162 ms QRS Dur : 072 ms QT Int : 368 ms P-R-T Axes : 064 -10 027 degrees QTc Int : 452 ms NORMAL SINUS RHYTHM NORMAL ECG WHEN COMPARED WITH ECG OF 20-AUG-2017 16:29, NO SIGNIFICANT CHANGE WAS FOUND Confirmed by JENNIFER IRBY MD ([id number]) on 08/21/2017 9:09:41 AM Referred By: Confirmed By:JENNIFER IRBY MD
[2017-08-21] MEDS ORDERED: PATIENT'S OWN MEDICATION (NON-FORMULARY) (Olmesartan/Hydrochlorothiazide [Benicar Hct 20-1 PO SCH (10:00)
[2017-08-21] MEDS: BUDESONIDE/FORMETEROL FUMARATE 160/4.5 mcg INHALER IH SCH ×2 (10:00→21:30)
[2017-08-21 10:59] LABS: BASOPHIL 0.4 % (0-2.0); EOSINOPHIL 0.1 % (0-4.5); MCH 22.3 pg (25.7-33.7); MCHC 29.5 g/dl (32.0-36.0); MEAN CELL VOLUME 75.6 fl (80-96); MEAN PLT VOLUME 8.6 fl (7.5-11.1); NEUTROPHILS 87.7 % (42.8-82.8); PLATELET COUNT 290 K/MM3 (134-434); RDW 15.9 % (11.6-15.6); WHITE BLOOD COUNT 19.5 K/mm3 (4.0-10.0)
[2017-08-21] MEDS: ALBUTEROL SO4 2.5/IPRATROPIUM 0.5 INH SOL 3 ML VIAL.NEB. NEB PRN ×2 (11:19→19:39)
[2017-08-21 11:23] LABS: PROTHROMBIN TIME (PATIENT) 64.1 SEC (9.98-11.88)
[2017-08-21 11:31] LABS: ALBUMIN 3.9 g/dl (3.4-5.0); ANION GAP 7 (8-16); CALCIUM 8.5 mg/dL (8.5-10.1); CO2 32 mmol/L (21-32); CREATININE 1.6 mg/dL (0.55-1.02); GLUCOSE,RANDOM 135 mg/dL (74-106); SGOT/AST 18 U/L (15-37); SGPT/ALT 29 U/L (12-78)
[2017-08-21 11:33] LABS: ALK PHOS 63 U/L (45-117); BILIRUBIN,TOTAL 0.3 mg/dL (0.2-1.0)
[2017-08-21 12:05] LABS: INR 5.67 (0.82-1.09)
[2017-08-21] MEDS: VALSARTAN 160 MG TABLET (UD) PO SCH (12:14)
[2017-08-21] MEDS: NIFEdipine E.R. 30 MG TABLET (FP) PO SCH (12:14)
[2017-08-21] MEDS: MECLIZINE HCL 12.5 MG TABLET PO SCH ×2 (12:15→21:29)
[2017-08-21] MEDS: PANTOPRAZOLE 40 MG TABLET (FP) PO SCH (12:15)
[2017-08-21] MEDS: CHOLECALCIFEROL (VITAMIN D3) 1,000 UNIT TABLET (FP) PO SCH (12:15)
[2017-08-21] MEDS: ASPIRIN 81 MG CHEWABLE TABLETS PO SCH (12:22)
[2017-08-21] MEDS: FUROSEMIDE 40 MG/4 ML INJECTABLE VIAL IVPUSH SCH (12:22)
--- NOTE | 2017-08-21 12:44 | HP ---
Admitting History and Physical - Primary Care Physician PCP: Sagar Springer E - Admission Chief Complaint: SOB History of Present Illness: The patient is a 67F with a PMH of COPD (on 4L at home), PE, and morbid obesity , who presents to the ED with shortness of breath. The patient states that she began not feeling well 3 days ago, but today she began to feel chills, cough, and became extremely short of breath. This happened in May of this year and she was admitted. She has been intubated once in the past but she does not recall when. The patient states that she was having CP, SOB, with some chills, but denies fevers, dysuria, cough, congestion. 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: Yes: CVA Cardiovascular: Yes: CHF (chronic diastolic), HTN, Hyperlipdemia Pulmonary: Yes: COPD, O2 Dependent, Pulmonary Embolus, Other (pulmonary HTN) Heme/Onc: Yes: Anemia, Hypercoaguable State - Smoking History Smoking history: Unknown if ever smoked Have you smoked in the past 12 months: No Aproximately how many cigarettes per day: 0 If you are a former smoker, when did you quit?: 1998 - Alcohol/Substance Use Hx Alcohol Use: No - Social History History of Recent Travel: No Home Medications - Allergies Allergies/Adverse Reactions: Allergies Allergy/AdvReac Type Severity Reaction Status Date / Time No Known Allergies Allergy Verified 06/14/17 15:30 - Home Medications Home Medications: Ambulatory Orders Mometasone Furoate [Nasonex] 1 - 2 inh NS PRN 01/21/14 Olmesartan/Hydrochlorothiazide [Benicar Hct 20-12.5 mg Tablet] 1 each PO DAILY 01/21/14 Promethazine/Phenyleph/Codeine [Promethazine Vc-Codeine Syrup] 120 ml PO PRN Cholecalciferol (Vitamin D3) [Vitamin D3] 2,000 unit PO DAILY #30 capsule Docusate Sodium [Colace -] 200 mg PO PRN #30 capsule 08/03/14 Clobetasol Propionate/Emoll [Olux-E 0.05% Foam] 100 gm TP PRN 11/20/15 Acetaminophen [Tylenol] 650 mg PO TID PRN 11/23/15 Colchicine [Colcrys] 0.6 mg PO DAILY PRN 11/23/15 Nystatin Oral Suspension - [Nystatin Oral Susp [id number] Units/5 ML -] 5 ml PO BID 11/23/15 Budesonide/Formeterol Fumarate [SYMBICORT 160/4.5mcg -] 1 inh PO BID #7 inhaler 11/26/15 Cyclosporine [Restasis] 1 each OP BID #30 droperette 11/26/15 Ferrous Sulfate [Feosol] 325 mg PO TID #30 ud 11/26/15 Furosemide [Lasix -] 20 mg PO BID #60 tablet 11/26/15 Guaifenesin AC [Robitussin AC -] 5 ml PO Q6H PRN #30 liquid 11/26/15 Meclizine HCl [Antivert -] 12.5 mg PO BID #30 tablet 11/26/15 Nifedipine ER [Procardia XL -] 30 mg PO DAILY #30 tab.er.24 11/26/15 Pantoprazole Sodium [Protonix -] 40 mg PO DAILY #30 tablet.ec 11/26/15 Rosuvastatin Calcium [Crestor] 10 mg PO HS #30 tablet 11/26/15 Tiotropium [place] [Spiriva] 1 inh PO DAILY #7 inh 11/26/15 Warfarin Na [Coumadin -] 3 mg PO HS 06/14/17 Albuterol 0.083% Nebulizer [place] [Ventolin 0.083% Nebulizer Soln -] 1 amp NEB TIDR amp 06/24/17 Nystatin Cream [Mycostatin Cream -] 1 applic TP BID applic 06/24/17 Prednisone [Deltasone -] 40 mg PO DAILY tablet 06/24/17 Review of Systems - Review of Systems Respiratory: reports: SOB Physical Examination Vital Signs: Vital Signs Temperature 99 F 08/21/17 06:50 Pulse Rate 112 H 08/21/17 06:50 Respiratory Rate 24 08/21/17 06:50 Blood Pressure 148/79 08/21/17 06:50 O2 Sat by Pulse Oximetry (%) 96 08/21/17 12:11 Constitutional: Yes: Calm, Obese Cardiovascular: Yes: Regular Rate and Rhythm, S1, S2 Respiratory: Yes: On Nasal O2, Other (decreased breath sounds in both lungs) Gastrointestinal: Yes: Normal Bowel Sounds, Soft, Abdomen, Obese Edema: Yes Edema: LLE: 1+, RLE: 1+ Neurological: Yes: Alert, Oriented Labs: CBC, BMP 08/21/17 10:40 08/21/17 10:40 Problem List - Problems (1) SOB (shortness of breath) Assessment/Plan: elevated wbc ID eval pulm eval copd exacerbation steroids abx bronchodilators oxygen Code(s): R06.02 - SHORTNESS OF BREATH (2) CHF (congestive heart failure) Assessment/Plan: iv lasix cardio on board valsartan monitor lytes Code(s): I50.9 - HEART FAILURE, UNSPECIFIED (3) COPD exacerbation Code(s): J44.1 - CHRONIC OBSTRUCTIVE PULMONARY DISEASE W (ACUTE) EXACERBATION (4) Pulmonary embolus Assessment/Plan: on coumadin INR is supratherapeutic will hold and monitor inr Code(s): I26.99 - OTHER PULMONARY EMBOLISM WITHOUT ACUTE COR PULMONALE
[2017-08-21] MEDS ORDERED: DOCUSATE SODIUM 100 MG CAPSULE (FP) PO PRN (13:01)
--- NOTE | 2017-08-21 14:39 | PN ---
Progress Note (short form) - Note Progress Note: PULMONARY CONSULTATION DICTATED 08/21/17 IMP ACUTE ON CHRONIC HYPOXEMIC/HYPERCAPNEIC RESPIRATORY FAILURE END STAGE COPD O2 DEPENDENT WITH ACUTE EXACERBATION URI DIASTOLIC HF PULMONARY HTN H/O RECURRENT PULMONARY EMBOLI HTN MORBID OBESITY PLAN IV STEROIDS SUPPLEMENTAL O2 INHALED BRONCHODILATORS NIPPV NEEDED DIURETICS SLEEP SCREEN DR FOX Problem List - Problems (1) SOB (shortness of breath) Code(s): R06.02 - SHORTNESS OF BREATH (2) Acute on chronic respiratory failure with hypoxia and hypercapnia Code(s): J96.21 - ACUTE AND CHRONIC RESPIRATORY FAILURE WITH HYPOXIA J96.22 - ACUTE AND CHRONIC RESPIRATORY FAILURE WITH HYPERCAPNIA (3) Anemia Code(s): D64.9 - ANEMIA, UNSPECIFIED (4) CHF (congestive heart failure) Code(s): I50.9 - HEART FAILURE, UNSPECIFIED (5) COPD exacerbation Code(s): J44.1 - CHRONIC OBSTRUCTIVE PULMONARY DISEASE W (ACUTE) EXACERBATION (6) Chronic diastolic (congestive) heart failure Code(s): I50.32 - CHRONIC DIASTOLIC (CONGESTIVE) HEART FAILURE (7) Coronary artery disease Code(s): I25.10 - ATHSCL HEART DISEASE OF [place] CORONARY ARTERY W/O ANG PCTRS (8) History of pulmonary embolism Code(s): Z86.711 - PERSONAL HISTORY OF PULMONARY EMBOLISM (9) Morbid obesity Code(s): E66.01 - MORBID (SEVERE) OBESITY DUE TO EXCESS CALORIES (10) Pulmonary hypertension Code(s): I27.2 - OTHER SECONDARY PULMONARY HYPERTENSION * DO NOT USE *
--- NOTE | 2017-08-21 15:00 | CON.ID ---
Consult Consult Specialty:: infectious diseases Referred by:: Reason for Consultation:: sob/pneumoia - History of Present Illness Chief Complaint: sob History of Present Illness: 67F with a PMH of COPD (on 4L at home), PE, and morbid obesity, admitted with shortness of breath. The patient states that she began not feeling well 3 days ago, but today she began to feel chills, cough, and became extremely short of breath. 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: Yes: CVA Cardio/Vascular: Yes: CHF (chronic diastolic), HTN, Hyperlipdemia Pulmonary: Yes: COPD, O2 Dependent, Pulmonary Embolus, Other (pulmonary HTN) - Alcohol/Substance Use Hx Alcohol Use: No - Smoking History Smoking history: Unknown if ever smoked Have you smoked in the past 12 months: No Aproximately how many cigarettes per day: 0 If you are a former smoker, when did you quit?: 1998 - Social History Usual Living Arrangement: Alone History of Recent Travel: No Home Medications - Allergies Allergies/Adverse Reactions: Allergies Allergy/AdvReac Type Severity Reaction Status Date / Time No Known Allergies Allergy Verified 06/14/17 15:30 - Home Medications Home Medications: Ambulatory Orders Mometasone Furoate [Nasonex] 1 - 2 inh NS PRN 01/21/14 Olmesartan/Hydrochlorothiazide [Benicar Hct 20-12.5 mg Tablet] 1 each PO DAILY 01/21/14 Promethazine/Phenyleph/Codeine [Promethazine Vc-Codeine Syrup] 120 ml PO PRN Cholecalciferol (Vitamin D3) [Vitamin D3] 2,000 unit PO DAILY #30 capsule Docusate Sodium [Colace -] 200 mg PO PRN #30 capsule 08/03/14 Clobetasol Propionate/Emoll [Olux-E 0.05% Foam] 100 gm TP PRN 11/20/15 Acetaminophen [Tylenol] 650 mg PO TID PRN 11/23/15 Colchicine [Colcrys] 0.6 mg PO DAILY PRN 11/23/15 Nystatin Oral Suspension - [Nystatin Oral Susp 687944 Units/5 ML -] 5 ml PO BID 11/23/15 Budesonide/Formeterol Fumarate [SYMBICORT 160/4.5mcg -] 1 inh PO BID #7 inhaler 11/26/15 Cyclosporine [Restasis] 1 each OP BID #30 droperette 11/26/15 Ferrous Sulfate [Feosol] 325 mg PO TID #30 ud 11/26/15 Furosemide [Lasix -] 20 mg PO BID #60 tablet 11/26/15 Guaifenesin AC [Robitussin AC -] 5 ml PO Q6H PRN #30 liquid 11/26/15 Meclizine HCl [Antivert -] 12.5 mg PO BID #30 tablet 11/26/15 Nifedipine ER [Procardia XL -] 30 mg PO DAILY #30 tab.er.24 11/26/15 Pantoprazole Sodium [Protonix -] 40 mg PO DAILY #30 tablet.ec 11/26/15 Rosuvastatin Calcium [Crestor] 10 mg PO HS #30 tablet 11/26/15 Tiotropium [place] [Spiriva] 1 inh PO DAILY #7 inh 11/26/15 Warfarin Na [Coumadin -] 3 mg PO HS 06/14/17 Albuterol 0.083% Nebulizer Claudia [Ventolin 0.083% Nebulizer Soln -] 1 amp NEB TIDR amp 06/24/17 Nystatin Cream [Mycostatin Cream -] 1 applic TP BID applic 06/24/17 Prednisone [Deltasone -] 40 mg PO DAILY tablet 06/24/17 Review of Systems - Review of Systems Constitutional: reports: Weakness Eyes: reports: No Symptoms HENT: reports: No Symptoms Neck: reports: No Symptoms Cardiovascular: reports: No Symptoms Respiratory: reports: Cough, SOB Physical Exam Vital Signs: Vital Signs Temperature 99.6 F 08/21/17 09:00 Pulse Rate 106 H 08/21/17 09:00 Respiratory Rate 24 08/21/17 09:00 Blood Pressure 151/73 08/21/17 09:00 O2 Sat by Pulse Oximetry (%) 96 08/21/17 12:11 Constitutional: Yes: Obese Eyes: Yes: Conjunctiva Clear HENT: Yes: Atraumatic Cardiovascular: Yes: Regular Rate and Rhythm Respiratory: Yes: On Nasal O2, Poor Air Entry (at both bases), Other Gastrointestinal: Yes: Normal Bowel Sounds, Soft Musculoskeletal: Yes: WNL Extremities: Yes: WNL Neurological: Yes: Alert, Oriented Psychiatric: Yes: Alert, Oriented Labs: CBC, BMP 08/21/17 10:40 08/21/17 10:40 Imaging - Results Chest X-ray: Report Reviewed, Image Reviewed Assessment/Plan Problem List - Problems (1) SOB (shortness of breath) Code(s): R06.02 - SHORTNESS OF BREATH (2) Acute on chronic respiratory failure with hypoxia and hypercapnia Code(s): J96.21 - ACUTE AND CHRONIC RESPIRATORY FAILURE WITH HYPOXIA J96.22 - ACUTE AND CHRONIC RESPIRATORY FAILURE WITH HYPERCAPNIA (3) Anemia Code(s): D64.9 - ANEMIA, UNSPECIFIED (4) CHF (congestive heart failure) Code(s): I50.9 - HEART FAILURE, UNSPECIFIED (5) COPD exacerbation Code(s): J44.1 - CHRONIC OBSTRUCTIVE PULMONARY DISEASE W (ACUTE) EXACERBATION (6) Chronic diastolic (congestive) heart failure Code(s): I50.32 - CHRONIC DIASTOLIC (CONGESTIVE) HEART FAILURE (7) Coronary artery disease Code(s): I25.10 - ATHSCL HEART DISEASE OF [place] CORONARY ARTERY W/O ANG PCTRS (8) History of pulmonary embolism Code(s): Z86.711 - PERSONAL HISTORY OF PULMONARY EMBOLISM (9) Morbid obesity Code(s): E66.01 - MORBID (SEVERE) OBESITY DUE TO EXCESS CALORIES (10) Pulmonary hypertension Code(s): I27.2 - OTHER SECONDARY PULMONARY HYPERTENSION * DO NOT USE * plan after looing at the picture and the story 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
[2017-08-21] MEDS: VANCOMYCIN 1,000 MG in DEXTROSE 5%-WATER - 250 ML IVPB SCH (15:05)
--- NOTE | 2017-08-21 15:27 | CONS ---
DATE OF CONSULTATION: 08/21/2017 REFERRING PHYSICIAN: Graciela Whitlock MD The patient is a 67-year-old black female well known to me from previous hospitalizations as well as office followup. Past medical history includes end- stage COPD on home oxygen therapy, pulmonary hypertension secondary to recurrent pulmonary emboli as well as COPD, history of morbid obesity, likely obstructive sleep apnea, hypercholesterolemia, history of CVA, congestive heart failure, admitted to [facility] with complaint of 3-day history of increasing shortness of breath, cough, and sputum production. Patient did complain of some chest tightness, not any actual chest pain. Denied and nausea, vomiting, or diaphoresis. On day of admission she started feeling some chills and cough and became acutely short of breath when ambulating. She presented to the emergency room with the above. In the ER she was noted to be in acute hypoxemic hypercapnic respiratory failure. She was placed on O2 and BiPAP with good clinical response and transferred to for further management. Patient denies any hemoptysis. There is no history of recent travel. Patient has been hospitalized on numerous occasions at [facility] secondary to COPD exacerbation. She was recently in pulmonary rehab. PAST MEDICAL HISTORY: Again includes advanced COPD on home O2, 4 L; pulmonary hypertension; chronic pulmonary emboli, maintained on anticoagulation; morbid obesity, history of CHF, anemia, hypertension, nonobstructive coronary artery disease. REVIEW OF SYSTEMS: Positive orthopnea, positive dyspnea, positive cough, positive sputum, yellow. Positive chest tightness, no chest pain. No chills, no fever, no hemoptysis, no abdominal pain. Positive lower extremity edema. CURRENT MEDICATIONS: Include Restasis, Symbicort, Solu-Medrol, Tylenol, Diovan, vancomycin, Antivert, Spiriva, DuoNeb, Colace, [place] nasal spray, Crestor, NovoLog, Lasix, Feosol, aspirin, Protonix, vitamin D3. PHYSICAL EXAMINATION: General: The patient is an obese female, awake, alert, in no acute distress. Vital Signs: She is currently afebrile. Blood pressure is 151/73, respiratory rate 24, O2 saturation is 97% on 3 L. HEENT: Normocephalic, atraumatic. Neck: Supple. Heart: Regular, S1, S2. Lungs: Scattered wheezes with few crackles at the bases. Abdomen: Soft. Bowel sounds are positive. Extremities: Bilateral lower extremity edema. LABORATORY: WBC is 19.5, hemoglobin 9, hematocrit 30.4, with a platelet count of 290,000. INR is 5.67. Blood gas shows pH 7.33, PCO2 of 63, a PO2 of 244, bicarbonate of 32, and a saturation of 99. That was on BiPAP with an IPAP of 12 , EPAP of 5, FiO2 of 60% with a rate of 12. Chest x-ray: There are no acute infiltrates and/or effusions. IMPRESSION: Acute on chronic hypoxemic hypercapnic respiratory failure secondary to: 1. Decompensated chronic obstructive pulmonary disease. 2. Possible pneumonia, acute bronchitis. 3. History of diastolic congestive heart failure. 4. Arteriosclerotic heart disease. 5. History of chronic pulmonary emboli. 6. Morbid obesity. 7. Likely obstructive sleep apnea. 8. Hypertension. PLAN: IV steroids, inhaled bronchodilators, supplemental O2, BiPAP at night and p.r.n., sleep screen, antibiotics, sputum for culture and sensitivity, daily weights, diuretics. STEPHIE FOX M.D. [id number] MTDD
[2017-08-21 16:58] VITALS: BMI 50.6
[2017-08-21] MEDS ORDERED: INSULIN (NOVOLOG) ASPART 100 UNITS/ML 10ML VIAL ONE (17:02)
[2017-08-21] MEDS: TIOTROPIUM BROMIDE 18 MCG/INH (DEVICE W/ 5 CAPSULES) IH SCH (17:17)
[2017-08-21] MEDS ORDERED: FLU VACCINE QUAD 60 MCG/0.5 ML (MDV 17-18) IM ONE (17:30)
[2017-08-21] MEDS ORDERED: PT OWN MED DRAWER 7, Y5N ONE (21:18)
[2017-08-21] MEDS: ROSUVASTATIN CA 10 MG TABLET (FP) PO SCH (21:27)
[2017-08-21] MEDS: NYSTATIN POWDER 100,000 UNITS/GM - 15 GM TOPICAL POWDER TP SCH (21:28)
--- NOTE | 2017-08-21 22:47 | HOSP ---
Subjective - Review of Symptoms Subjective: Paged to assess patient with epistaxis. Pt reports being oxygen-dependent and starting to have epistaxis around dinner time from her R nare. Pt reports having previous bleeds. Pt INR supratherapeutic at 5.16. Pt denies any taste of blood in her mouth or sensation of dripping. Physical Examination Vital Signs: Vital Signs Temperature 99.0 F 08/21/17 19:00 Pulse Rate 100 H 08/21/17 19:00 Respiratory Rate 20 08/21/17 19:00 Blood Pressure 150/77 08/21/17 19:00 O2 Sat by Pulse Oximetry (%) 96 08/21/17 12:11 Constitutional: Yes: Anxious HENT: Yes: Other (Clotted blood seen in R nare. None seen in left nare. No blood seen in back of throat or on back of tongue.) Cardiovascular: Yes: Regular Rate and Rhythm Respiratory: Yes: Regular, On Nasal O2 (Humidified) Neurological: Yes: Alert, Oriented Labs: CBC, BMP 08/21/17 10:40 08/21/17 10:40 Hospitalist Encounter Assessment: 1) Anterior epistaxis --Jerald rocket not indicated due to clotted blood --Digitation would most likely dislodge clot and cause more bleeding --Jerald rocket and other materials at bedside; nursing staff understand that if bleeding occurs again to page and packing will be placed --Pt instructed to not digitally explore, place any ice, or disturb the area in question Sarthak Joyce, DO - Internal Medicine PGY-1
[2017-08-22] MEDS: methylPREDNISolone NA SUCC 40 MG/1 ML VIAL IVPUSH SCH ×3 (02:11→17:57)
[2017-08-22] MEDS: INSULIN SLIDING SCALE (NOVOLOG) 1 VIAL SQ SCH ×4 (06:14→22:31)
[2017-08-22] MEDS: FERROUS SO4 325 MG TABLET (FP) PO SCH ×3 (06:14→22:23)
[2017-08-22 08:54] LABS: BASOPHIL 0.1 % (0-2.0); MCH 22.2 pg (25.7-33.7); MCHC 29.3 g/dl (32.0-36.0); MEAN CELL VOLUME 75.5 fl (80-96); MEAN PLT VOLUME 8.8 fl (7.5-11.1); NEUTROPHILS 89.2 % (42.8-82.8); PLATELET COUNT 266 K/MM3 (134-434); RDW 15.7 % (11.6-15.6); WHITE BLOOD COUNT 14.9 K/mm3 (4.0-10.0)
--- NOTE | 2017-08-22 09:04 | PN ---
Progress Note, Physician History of Present Illness: Well known to out service: 67F, former smoker with severe COPD, history of PE on coumadin, mild non-obstx CAD, HTN, chronic diastolic CHF admitted again with increased PRIMO, wheezing, cough. Received IV steroids in ER wih improvement in sx. She has chronic PICKERING, chronic chest pain associated w/ cough; recently discharged from rehab. Denies fever or chills. No syncope. No palps. + edema b/l CXR showed mildly increased PVC. - Current Medication List Current Medications: Active Medications Acetaminophen (Tylenol -) 650 mg PO TID PRN PRN Reason: PAIN Albuterol/Ipratropium (Duoneb -) 1 amp NEB Q6H PRN PRN Reason: SHORTNESS OF BREATH Last Admin: 08/21/17 19:39 Dose: 1 amp Aspirin (Asa -) 81 mg PO DAILY [facility] Last Admin: 08/21/17 12:22 Dose: 81 mg Budesonide/Formoterol Fumarate (Symbicort 160/4.5mcg -) 1 puff IH BID [facility] Last Admin: 08/21/17 21:30 Dose: Not Given Cholecalciferol (Vitamin D3 -) 2,000 unit PO DAILY [facility] Last Admin: 08/21/17 12:15 Dose: 2,000 unit Docusate Sodium (Colace -) 300 mg PO HS PRN PRN Reason: CONSTIPATION Ferrous Sulfate (Feosol -) 325 mg PO TID [facility] Last Admin: 08/22/17 06:14 Dose: 325 mg Furosemide (Lasix Injection -) 40 mg IVPUSH DAILY [facility] Last Admin: 08/21/17 12:22 Dose: 40 mg Insulin Aspart (Novolog Vial Sliding Scale -) 1 vial SQ ACHS [facility] PRN Reason: Protocol Last Admin: 08/22/17 06:14 Dose: 2 units Meclizine HCl (Antivert -) 12.5 mg PO BID [facility] Last Admin: 08/21/17 21:29 Dose: 12.5 mg Methylprednisolone Sodium Succinate (Solu-Medrol -) 40 mg IVPUSH Q8H-IV [facility] Last Admin: 08/22/17 02:11 Dose: 40 mg Nifedipine (Procardia Xl -) 30 mg PO DAILY [facility] Last Admin: 08/21/17 12:14 Dose: 30 mg Non-Formulary Medication (Cyclosporine [Restasis]) 1 each OP BID [facility] Nystatin (Nystop Powder -) 1 applic TP BID [facility] Last Admin: 08/21/17 21:28 Dose: 1 applic Pantoprazole Sodium (Protonix -) 40 mg PO DAILY [facility] Last Admin: 08/21/17 12:15 Dose: 40 mg Rosuvastatin Calcium (Crestor -) 10 mg PO HS [facility] Last Admin: 08/21/17 21:27 Dose: 10 mg Sodium Chloride ([place] -) 1 spray NS Q4H PRN PRN Reason: NASAL CONGESTION Tiotropium [place] (Spiriva -) 1 puff IH DAILY [facility] Last Admin: 08/21/17 17:17 Dose: Not Given Valsartan (Diovan -) 160 mg PO DAILY [facility] Last Admin: 08/21/17 12:14 Dose: 160 mg - Objective Vital Signs: Vital Signs Temperature 98.0 F 08/22/17 06:00 Pulse Rate 99 H 08/22/17 06:00 Respiratory Rate 20 08/22/17 06:00 Blood Pressure 145/77 08/22/17 06:00 O2 Sat by Pulse Oximetry (%) 96 08/21/17 12:11 Eyes: Yes: WNL, Conjunctiva Clear, EOM Intact HENT: Yes: WNL, Atraumatic, Normocephalic Neck: Yes: WNL, Supple, Trachea Midline Cardiovascular: Yes: WNL, Regular Rate and Rhythm Respiratory: Yes: WNL, Regular, Diminished Gastrointestinal: Yes: WNL, Normal Bowel Sounds Genitourinary: Yes: WNL Musculoskeletal: Yes: WNL Extremities: Yes: WNL Edema: No Integumentary: Yes: WNL Neurological: Yes: WNL, Alert, Oriented ...Motor Strength: WNL Psychiatric: Yes: WNL Labs: INR, PTT INR 5.67 (0.82-1.09) H* 08/21/17 10:40 Assessment/Plan AECOPD Acute on chronic diastolic CHF, mild exacerbation History of PE on coumadin REC: 1. CHF: mildly decompensated acute on chronic diastolic CHF -Mild CAD on recent cath -Recent echo in February with normal LV function -Will switch Lasix to 40mg IV daily -Ordered for both Benicar and Diovan, will hold one for now -Daily weights, low sodium diet 2. AECOPD: -As per PMD and pulmonary -She also has chronic PHTN due to COPD which leads to right sided CHF symptoms 3. History of PEs on coumadin: -INR supratherapeutic -Hold coumadin until IN drifts within desired range of 2-3 and then resume at adjusted dose with daily INRs while on Abx.
[2017-08-22 09:14] LABS: PROTHROMBIN TIME (PATIENT) 52.2 SEC (9.98-11.88)
[2017-08-22 09:25] LABS: ALBUMIN 3.7 g/dl (3.4-5.0); ANION GAP 7 (8-16); BILIRUBIN,TOTAL 0.7 mg/dL (0.2-1.0); CALCIUM 8.4 mg/dL (8.5-10.1); CO2 34 mmol/L (21-32); CREATININE 1.6 mg/dL (0.55-1.02); GLUCOSE,RANDOM 174 mg/dL (74-106); SGOT/AST 13 U/L (15-37); SGPT/ALT 25 U/L (12-78); TOT PROT 6.1 g/dl (6.4-8.2)
[2017-08-22 09:26] LABS: ALK PHOS 51 U/L (45-117)
[2017-08-22] MEDS ORDERED: PT OWN MED DRAWER 7, Y5N ONE ×2 (09:36→19:20)
[2017-08-22 09:38] LABS: INR 4.62 (0.82-1.09)
[2017-08-22] MEDS: ASPIRIN 81 MG CHEWABLE TABLETS PO SCH (09:43)
[2017-08-22] MEDS: TIOTROPIUM BROMIDE 18 MCG/INH (DEVICE W/ 5 CAPSULES) IH SCH (09:43)
[2017-08-22] MEDS: NYSTATIN POWDER 100,000 UNITS/GM - 15 GM TOPICAL POWDER TP SCH ×2 (09:43→22:23)
[2017-08-22] MEDS: CHOLECALCIFEROL (VITAMIN D3) 1,000 UNIT TABLET (FP) PO SCH (09:45)
[2017-08-22] MEDS: PANTOPRAZOLE 40 MG TABLET (FP) PO SCH (09:45)
[2017-08-22] MEDS: MECLIZINE HCL 12.5 MG TABLET PO SCH ×2 (09:45→22:23)
[2017-08-22] MEDS: VALSARTAN 160 MG TABLET (UD) PO SCH (09:45)
[2017-08-22] MEDS: NIFEdipine E.R. 30 MG TABLET (FP) PO SCH (09:46)
[2017-08-22] MEDS: BUDESONIDE/FORMETEROL FUMARATE 160/4.5 mcg INHALER IH SCH ×2 (09:46→22:23)
[2017-08-22] MEDS: FUROSEMIDE 40 MG/4 ML INJECTABLE VIAL IVPUSH SCH (09:46)
--- NOTE | 2017-08-22 10:56 | PN ---
Progress Note, Physician History of Present Illness: Pt seen and examined. Chart reviewed, events noted. She is currently alert, afebrile. Has dyspnea on exertion. Complains of hemorrhoidal itching. s/p epistaxis. - Current Medication List Current Medications: Active Medications Acetaminophen (Tylenol -) 650 mg PO TID PRN PRN Reason: PAIN Albuterol/Ipratropium (Duoneb -) 1 amp NEB Q6H PRN PRN Reason: SHORTNESS OF BREATH Last Admin: 08/21/17 19:39 Dose: 1 amp Aspirin (Asa -) 81 mg PO DAILY [facility] Last Admin: 08/22/17 09:43 Dose: 81 mg Budesonide/Formoterol Fumarate (Symbicort 160/4.5mcg -) 1 puff IH BID [facility] Last Admin: 08/22/17 09:46 Dose: 1 puff Cholecalciferol (Vitamin D3 -) 2,000 unit PO DAILY [facility] Last Admin: 08/22/17 09:45 Dose: 2,000 unit Docusate Sodium (Colace -) 300 mg PO HS PRN PRN Reason: CONSTIPATION Ferrous Sulfate (Feosol -) 325 mg PO TID [facility] Last Admin: 08/22/17 06:14 Dose: 325 mg Furosemide (Lasix Injection -) 40 mg IVPUSH DAILY [facility] Last Admin: 08/22/17 09:46 Dose: 40 mg Hydrocortisone (Anusol 2.5% Hc Cream -) 1 applic TP BID [facility] Insulin Aspart (Novolog Vial Sliding Scale -) 1 vial SQ ACHS [facility] PRN Reason: Protocol Last Admin: 08/22/17 06:14 Dose: 2 units Meclizine HCl (Antivert -) 12.5 mg PO BID [facility] Last Admin: 08/22/17 09:45 Dose: 12.5 mg Methylprednisolone Sodium Succinate (Solu-Medrol -) 40 mg IVPUSH Q8H-IV [facility] Last Admin: 08/22/17 09:43 Dose: 40 mg Nifedipine (Procardia Xl -) 30 mg PO DAILY [facility] Last Admin: 08/22/17 09:46 Dose: 30 mg Non-Formulary Medication (Cyclosporine [Restasis]) 1 each OP BID [facility] Nystatin (Nystop Powder -) 1 applic TP BID [facility] Last Admin: 08/22/17 09:43 Dose: 1 applic Pantoprazole Sodium (Protonix -) 40 mg PO DAILY [facility] Last Admin: 08/22/17 09:45 Dose: 40 mg Rosuvastatin Calcium (Crestor -) 10 mg PO HS [facility] Last Admin: 08/21/17 21:27 Dose: 10 mg Sodium Chloride ([place] -) 1 spray NS Q4H PRN PRN Reason: NASAL CONGESTION Tiotropium [place] (Spiriva -) 1 puff IH DAILY [facility] Last Admin: 08/22/17 09:43 Dose: Not Given Valsartan (Diovan -) 160 mg PO DAILY [facility] Last Admin: 08/22/17 09:45 Dose: 160 mg - Objective Vital Signs: Vital Signs Temperature 98.0 F 08/22/17 06:00 Pulse Rate 99 H 08/22/17 06:00 Respiratory Rate 20 08/22/17 06:00 Blood Pressure 145/77 08/22/17 06:00 O2 Sat by Pulse Oximetry (%) 96 08/21/17 12:11 Constitutional: Yes: Calm Cardiovascular: Yes: Tachycardia Respiratory: Yes: Diminished, Other (no wheezing, no rhonchi) Gastrointestinal: Yes: Normal Bowel Sounds, Soft, Abdomen, Obese ...Rectal Exam: Yes: Hemorrhoids/External Extremities: Yes: WNL Integumentary: Yes: WNL Neurological: Yes: Alert, Oriented Labs: CBC, BMP 08/22/17 08:36 08/22/17 08:36 INR, PTT INR 4.62 (0.82-1.09) H* 08/22/17 08:36 Blood cultures -results pending - ....Imaging Chest X-ray: Report Reviewed Problem List - Problems (1) Acute exacerbation of chronic bronchitis Code(s): J20.9 - ACUTE BRONCHITIS, UNSPECIFIED J42 - UNSPECIFIED CHRONIC BRONCHITIS (2) Anemia Code(s): D64.9 - ANEMIA, UNSPECIFIED (3) CHF (congestive heart failure) Code(s): I50.9 - HEART FAILURE, UNSPECIFIED (4) COPD exacerbation Code(s): J44.1 - CHRONIC OBSTRUCTIVE PULMONARY DISEASE W (ACUTE) EXACERBATION (5) Morbid obesity Code(s): E66.01 - MORBID (SEVERE) OBESITY DUE TO EXCESS CALORIES (6) Pulmonary embolus Code(s): I26.99 - OTHER PULMONARY EMBOLISM WITHOUT ACUTE COR PULMONALE Assessment/Plan COPD Exacerbation CHF Obesity Pt remains afebrile, with dry cough. Dyspnea on exertion. WBC trending down continue monitor off antibiotics for now
--- NOTE | 2017-08-22 11:44 | PN ---
Progress Note (short form) - Note Progress Note: Still with PICKERING. No further epistaxis. Intake & Output 08/19/17 08/20/17 08/21/17 08/22/17 23:59 23:59 23:59 23:59 Intake Total 1680 200 Output Total 450 Balance 1230 200 Weight 276 lb 295 lb 0.4 oz Last Vital Signs Temp Pulse Resp BP Pulse Ox 98.0 F 99 H 20 145/77 96 08/22/17 06:00 08/22/17 06:00 08/22/17 06:00 08/22/17 06:00 08/21/17 12:11 Active Medications Acetaminophen (Tylenol -) 650 mg PO TID PRN PRN Reason: PAIN Albuterol/Ipratropium (Duoneb -) 1 amp NEB Q6H PRN PRN Reason: SHORTNESS OF BREATH Last Admin: 08/21/17 19:39 Dose: 1 amp Aspirin (Asa -) 81 mg PO DAILY [facility] Last Admin: 08/22/17 09:43 Dose: 81 mg Budesonide/Formoterol Fumarate (Symbicort 160/4.5mcg -) 1 puff IH BID [facility] Last Admin: 08/22/17 09:46 Dose: 1 puff Cholecalciferol (Vitamin D3 -) 2,000 unit PO DAILY [facility] Last Admin: 08/22/17 09:45 Dose: 2,000 unit Docusate Sodium (Colace -) 300 mg PO HS PRN PRN Reason: CONSTIPATION Ferrous Sulfate (Feosol -) 325 mg PO TID [facility] Last Admin: 08/22/17 06:14 Dose: 325 mg Furosemide (Lasix Injection -) 40 mg IVPUSH DAILY [facility] Last Admin: 08/22/17 09:46 Dose: 40 mg Hydrocortisone (Anusol 2.5% Hc Cream -) 1 applic TP BID [facility] Insulin Aspart (Novolog Vial Sliding Scale -) 1 vial SQ ACHS [facility] PRN Reason: Protocol Last Admin: 08/22/17 06:14 Dose: 2 units Meclizine HCl (Antivert -) 12.5 mg PO BID [facility] Last Admin: 08/22/17 09:45 Dose: 12.5 mg Methylprednisolone Sodium Succinate (Solu-Medrol -) 40 mg IVPUSH Q8H-IV [facility] Last Admin: 08/22/17 09:43 Dose: 40 mg Nifedipine (Procardia Xl -) 30 mg PO DAILY [facility] Last Admin: 08/22/17 09:46 Dose: 30 mg Non-Formulary Medication (Cyclosporine [Restasis]) 1 each OP BID [facility] Nystatin (Nystop Powder -) 1 applic TP BID [facility] Last Admin: 08/22/17 09:43 Dose: 1 applic Pantoprazole Sodium (Protonix -) 40 mg PO DAILY [facility] Last Admin: 08/22/17 09:45 Dose: 40 mg Rosuvastatin Calcium (Crestor -) 10 mg PO HS [facility] Last Admin: 08/21/17 21:27 Dose: 10 mg Sodium Chloride ([place] Nasal [place] -) 1 spray NS Q4H PRN PRN Reason: NASAL CONGESTION Tiotropium [place] (Spiriva -) 1 puff IH DAILY [facility] Last Admin: 08/22/17 09:43 Dose: Not Given Valsartan (Diovan -) 160 mg PO DAILY [facility] Last Admin: 08/22/17 09:45 Dose: 160 mg Constitutional: Yes: NAD HENT: Yes: No active bleed Cardiovascular: Yes: Regular Rate and Rhythm Respiratory: Yes: Diminished at the bases Neurological: Yes: Alert, Oriented Laboratory Results - last 24 hr 08/21/17 08/21/17 08/21/17 10:40 10:40 12:06 WBC RBC Hgb Hct MCV MCH MCHC RDW Plt Count MPV Neutrophils % Lymphocytes % Monocytes % Eosinophils % Basophils % PT with INR 64.10 H INR 5.67 H* Sodium 145 Potassium 4.5 Chloride 106 Carbon Dioxide 32 Anion Gap 7 L BUN 17 Creatinine 1.6 H Creat Clearance w eGFR 31.96 POC Glucometer 159 Random Glucose 135 H D Calcium 8.5 Total Bilirubin 0.3 D AST 18 D ALT 29 Alkaline Phosphatase 63 Total Protein 7.0 Albumin 3.9 08/21/17 08/21/17 08/22/17 16:43 21:36 05:36 WBC RBC Hgb Hct MCV MCH MCHC RDW Plt Count MPV Neutrophils % Lymphocytes % Monocytes % Eosinophils % Basophils % PT with INR INR Sodium Potassium Chloride Carbon Dioxide Anion Gap BUN Creatinine Creat Clearance w eGFR POC Glucometer 183 186 155 Random Glucose Calcium Total Bilirubin AST ALT Alkaline Phosphatase Total Protein Albumin 08/22/17 08/22/17 08/22/17 08:36 08:36 08:36 WBC 14.9 H RBC 3.60 Hgb 8.0 L D Hct 27.2 L MCV 75.5 L MCH 22.2 L MCHC 29.3 L RDW 15.7 H Plt Count 266 MPV 8.8 Neutrophils % 89.2 H Lymphocytes % 5.3 L D Monocytes % 5.4 Eosinophils % 0.0 D Basophils % 0.1 PT with INR 52.20 H INR 4.62 H* Sodium 145 Potassium 4.4 Chloride 104 Carbon Dioxide 34 H Anion Gap 7 L BUN 25 H D Creatinine 1.6 H Creat Clearance w eGFR 31.96 POC Glucometer Random Glucose 174 H D Calcium 8.4 L Total Bilirubin 0.7 D AST 13 L D ALT 25 Alkaline Phosphatase 51 Total Protein 6.1 L Albumin 3.7 Problem List - Problems (1) SOB (shortness of breath) Code(s): R06.02 - SHORTNESS OF BREATH (2) Acute on chronic respiratory failure with hypoxia and hypercapnia Code(s): J96.21 - ACUTE AND CHRONIC RESPIRATORY FAILURE WITH HYPOXIA J96.22 - ACUTE AND CHRONIC RESPIRATORY FAILURE WITH HYPERCAPNIA (3) Anemia Code(s): D64.9 - ANEMIA, UNSPECIFIED (4) CHF (congestive heart failure) Code(s): I50.9 - HEART FAILURE, UNSPECIFIED (5) COPD exacerbation Code(s): J44.1 - CHRONIC OBSTRUCTIVE PULMONARY DISEASE W (ACUTE) EXACERBATION (6) Chronic diastolic (congestive) heart failure Code(s): I50.32 - CHRONIC DIASTOLIC (CONGESTIVE) HEART FAILURE (7) Coronary artery disease Code(s): I25.10 - ATHSCL HEART DISEASE OF [place] CORONARY ARTERY W/O ANG PCTRS (8) History of pulmonary embolism Code(s): Z86.711 - PERSONAL HISTORY OF PULMONARY EMBOLISM (9) Morbid obesity Code(s): E66.01 - MORBID (SEVERE) OBESITY DUE TO EXCESS CALORIES (10) Pulmonary hypertension Code(s): I27.2 - OTHER SECONDARY PULMONARY HYPERTENSION * DO NOT USE * IMP ACUTE ON CHRONIC HYPOXEMIC/HYPERCAPNEIC RESPIRATORY FAILURE END STAGE COPD O2 DEPENDENT WITH ACUTE EXACERBATION URI DIASTOLIC HF PULMONARY HTN H/O RECURRENT PULMONARY EMBOLI HTN MORBID OBESITY PLAN IV STEROIDS SUPPLEMENTAL O2 INHALED BRONCHODILATORS NIPPV NEEDED DIURETICS SLEEP SCREEN DR MANJARREZ
[2017-08-22] MEDS: ALBUTEROL SO4 2.5/IPRATROPIUM 0.5 INH SOL 3 ML VIAL.NEB. NEB PRN ×2 (11:46→18:38)
[2017-08-22] MEDS ORDERED: INSULIN (NOVOLOG) ASPART 100 UNITS/ML 10ML VIAL ONE (19:21)
--- NOTE | 2017-08-22 22:18 | DS ---
Physical Examination Vital Signs: Vital Signs Temperature 98.3 F 08/22/17 18:05 Pulse Rate 111 H 08/22/17 18:05 Respiratory Rate 20 08/22/17 18:05 Blood Pressure 130/69 08/22/17 18:05 O2 Sat by Pulse Oximetry (%) 98 08/22/17 18:37 Labs: CBC, BMP 08/22/17 08:36 08/22/17 08:36 Discharge Summary Reason For Visit: SHORTNESS OF BREATH Current Active Problems SOB (shortness of breath) (Acute) (1) SOB (shortness of breath) Assessment/Plan: Code(s): R06.02 - SHORTNESS OF BREATH (2) CHF (congestive heart failure) Assessment/Plan: Code(s): I50.9 - HEART FAILURE, UNSPECIFIED (3) COPD exacerbation Code(s): J44.1 - CHRONIC OBSTRUCTIVE PULMONARY DISEASE W (ACUTE) EXACERBATION (4) Pulmonary embolus Assessment/Plan: Code(s): I26.99 - OTHER PULMONARY EMBOLISM WITHOUT ACUTE COR PULMONALE Hospital Course: The patient is a 67F with a PMH of COPD (on 4L at home), PE, and morbid obesity , who presents to the ED with shortness of breath. The patient states that she began not feeling well 3 days ago, but today she began to feel chills, cough, and became extremely short of breath. This happened in May of this year and she was admitted. She has been intubated once in the past but she does not recall when. The patient states that she was having CP, SOB, with some chills. Pt was treated w/ IV steroids/antibxs and nebulizers. Pt followed by pulmonary. Condition: Good - Instructions Referrals: Jerome Springer MD [Primary Care Provider] - - Home Medications Comprehensive Discharge Medication List: Ambulatory Orders Mometasone Furoate [Nasonex] 1 - 2 inh NS PRN 01/21/14 Olmesartan/Hydrochlorothiazide [Benicar Hct 20-12.5 mg Tablet] 1 each PO DAILY 01/21/14 Promethazine/Phenyleph/Codeine [Promethazine Vc-Codeine Syrup] 120 ml PO PRN Cholecalciferol (Vitamin D3) [Vitamin D3] 2,000 unit PO DAILY #30 capsule Docusate Sodium [Colace -] 200 mg PO PRN #30 capsule 08/03/14 Clobetasol Propionate/Emoll [Olux-E 0.05% Foam] 100 gm TP PRN 11/20/15 Acetaminophen [Tylenol] 650 mg PO TID PRN 11/23/15 Colchicine [Colcrys] 0.6 mg PO DAILY PRN 11/23/15 Nystatin Oral Suspension - [Nystatin Oral Susp 462703 Units/5 ML -] 5 ml PO BID 11/23/15 Budesonide/Formeterol Fumarate [SYMBICORT 160/4.5mcg -] 1 inh PO BID #7 inhaler 11/26/15 Cyclosporine [Restasis] 1 each OP BID #30 droperette 11/26/15 Ferrous Sulfate [Feosol] 325 mg PO TID #30 ud 11/26/15 Furosemide [Lasix -] 20 mg PO BID #60 tablet 11/26/15 Guaifenesin AC [Robitussin AC -] 5 ml PO Q6H PRN #30 liquid 11/26/15 Meclizine HCl [Antivert -] 12.5 mg PO BID #30 tablet 11/26/15 Nifedipine ER [Procardia XL -] 30 mg PO DAILY #30 tab.er.24 11/26/15 Pantoprazole Sodium [Protonix -] 40 mg PO DAILY #30 tablet.ec 11/26/15 Rosuvastatin Calcium [Crestor] 10 mg PO HS #30 tablet 11/26/15 Tiotropium [place] [Spiriva] 1 inh PO DAILY #7 inh 11/26/15 Warfarin Na [Coumadin -] 3 mg PO HS 06/14/17 Albuterol 0.083% Nebulizer Claudia [Ventolin 0.083% Nebulizer Soln -] 1 amp NEB TIDR amp 06/24/17 Nystatin Cream [Mycostatin Cream -] 1 applic TP BID applic 06/24/17 Prednisone [Deltasone -] 40 mg PO DAILY tablet 06/24/17
[2017-08-22] MEDS: ROSUVASTATIN CA 10 MG TABLET (FP) PO SCH (22:23)
[2017-08-22] MEDS: HYDROCORTISONE 2.5% TOPICAL CREAM 30 GM TUBE TP SCH (23:03)
--- NOTE | 2017-08-22 23:15 | PN ---
Progress Note, Physician History of Present Illness: Pt w/ increased cough - Current Medication List Current Medications: Active Medications Acetaminophen (Tylenol -) 650 mg PO TID PRN PRN Reason: PAIN Albuterol/Ipratropium (Duoneb -) 1 amp NEB Q6H PRN PRN Reason: SHORTNESS OF BREATH Last Admin: 08/22/17 18:38 Dose: 1 amp Aspirin (Asa -) 81 mg PO DAILY [facility] Last Admin: 08/22/17 09:43 Dose: 81 mg Budesonide/Formoterol Fumarate (Symbicort 160/4.5mcg -) 1 puff IH BID [facility] Last Admin: 08/22/17 22:23 Dose: 1 puff Cholecalciferol (Vitamin D3 -) 2,000 unit PO DAILY [facility] Last Admin: 08/22/17 09:45 Dose: 2,000 unit Docusate Sodium (Colace -) 300 mg PO HS PRN PRN Reason: CONSTIPATION Ferrous Sulfate (Feosol -) 325 mg PO TID [facility] Last Admin: 08/22/17 22:23 Dose: 325 mg Furosemide (Lasix Injection -) 40 mg IVPUSH DAILY [facility] Last Admin: 08/22/17 09:46 Dose: 40 mg Hydrocortisone (Anusol 2.5% Hc Cream -) 1 applic TP BID [facility] Last Admin: 08/22/17 23:03 Dose: 1 applic Insulin Aspart (Novolog Vial Sliding Scale -) 1 vial SQ ACHS [facility] PRN Reason: Protocol Last Admin: 08/22/17 22:31 Dose: 4 units Meclizine HCl (Antivert -) 12.5 mg PO BID [facility] Last Admin: 08/22/17 22:23 Dose: 12.5 mg Methylprednisolone Sodium Succinate (Solu-Medrol -) 40 mg IVPUSH Q8H-IV [facility] Last Admin: 08/22/17 17:57 Dose: 40 mg Nifedipine (Procardia Xl -) 30 mg PO DAILY [facility] Last Admin: 08/22/17 09:46 Dose: 30 mg Non-Formulary Medication (Cyclosporine [Restasis]) 1 each OP BID [facility] Nystatin (Nystop Powder -) 1 applic TP BID [facility] Last Admin: 08/22/17 22:23 Dose: 1 applic Pantoprazole Sodium (Protonix -) 40 mg PO DAILY [facility] Last Admin: 08/22/17 09:45 Dose: 40 mg Rosuvastatin Calcium (Crestor -) 10 mg PO HS [facility] Last Admin: 08/22/17 22:23 Dose: 10 mg Sodium Chloride ([place] Nasal [place] -) 1 spray NS Q4H PRN PRN Reason: NASAL CONGESTION Tiotropium [place] (Spiriva -) 1 puff IH DAILY [facility] Last Admin: 08/22/17 09:43 Dose: Not Given Valsartan (Diovan -) 160 mg PO DAILY [facility] Last Admin: 08/22/17 09:45 Dose: 160 mg - Objective Vital Signs: Vital Signs Temperature 98.3 F 08/22/17 18:05 Pulse Rate 111 H 08/22/17 18:05 Respiratory Rate 20 08/22/17 18:05 Blood Pressure 130/69 08/22/17 18:05 O2 Sat by Pulse Oximetry (%) 98 08/22/17 18:37 Constitutional: Yes: Well Nourished, Obese Neck: Yes: WNL, Supple Cardiovascular: Yes: WNL, Regular Rate and Rhythm Respiratory: Yes: Diminished, Wheezes Gastrointestinal: Yes: WNL, Normal Bowel Sounds, Soft, Abdomen, Obese Labs: CBC, BMP 08/22/17 08:36 08/22/17 08:36 INR, PTT INR 4.62 (0.82-1.09) H* 08/22/17 08:36 Problem List - Problems (1) COPD exacerbation Assessment/Plan: Cont IV solumedrol Cont nebulizers/spiriva/symbicort Code(s): J44.1 - CHRONIC OBSTRUCTIVE PULMONARY DISEASE W (ACUTE) EXACERBATION (2) HLD (hyperlipidemia) Assessment/Plan: Cont crestor Code(s): E78.5 - HYPERLIPIDEMIA, UNSPECIFIED (3) Chronic diastolic (congestive) heart failure Assessment/Plan: Cont lasix Monitor electrolytes Code(s): I50.32 - CHRONIC DIASTOLIC (CONGESTIVE) HEART FAILURE (4) Hypertension Assessment/Plan: BP stable Cont procardia/diovan Code(s): I10 - ESSENTIAL (PRIMARY) HYPERTENSION (5) DVT (deep venous thrombosis) Assessment/Plan: PT/inr supratherapeutic Cont to follow Restart coumadin once below 3 Code(s): I82.409 - ACUTE EMBOLISM AND THOMBOS UNSP DEEP VN UNSP LOWER EXTREMITY (6) History of pulmonary embolism Assessment/Plan: PT/inr supratherapeutic Cont to follow Restart coumadin once below 3 Code(s): Z86.711 - PERSONAL HISTORY OF PULMONARY EMBOLISM (7) Hemorrhoid Assessment/Plan: Cont ausol Code(s): K64.9 - UNSPECIFIED HEMORRHOIDS (8) Coronary artery disease Code(s): I25.10 - ATHSCL HEART DISEASE OF [place] CORONARY ARTERY W/O ANG PCTRS (9) Morbid obesity Code(s): E66.01 - MORBID (SEVERE) OBESITY DUE TO EXCESS CALORIES
[2017-08-23] MEDS: methylPREDNISolone NA SUCC 40 MG/1 ML VIAL IVPUSH SCH ×3 (02:46→17:35)
[2017-08-23] MEDS: FERROUS SO4 325 MG TABLET (FP) PO SCH ×2 (06:18→14:57)
[2017-08-23] MEDS: INSULIN SLIDING SCALE (NOVOLOG) 1 VIAL SQ SCH ×4 (06:18→21:18)
[2017-08-23] MEDS: ALBUTEROL SO4 2.5/IPRATROPIUM 0.5 INH SOL 3 ML VIAL.NEB. NEB PRN ×3 (06:39→21:05)
--- NOTE | 2017-08-23 08:51 | PN ---
Progress Note, Physician History of Present Illness: Well known to out service: 67F, former smoker with severe COPD, history of PE on coumadin, mild non-obstx CAD, HTN, chronic diastolic CHF admitted again with increased PRIMO, wheezing, cough. Received IV steroids in ER wih improvement in sx. She has chronic PICKERING, chronic chest pain associated w/ cough; recently discharged from rehab. Denies fever or chills. No syncope. No palps. + edema b/l CXR showed mildly increased PVC. - Current Medication List Current Medications: Active Medications Acetaminophen (Tylenol -) 650 mg PO TID PRN PRN Reason: PAIN Albuterol/Ipratropium (Duoneb -) 1 amp NEB Q6H PRN PRN Reason: SHORTNESS OF BREATH Last Admin: 08/23/17 06:39 Dose: 1 amp Aspirin (Asa -) 81 mg PO DAILY [facility] Last Admin: 08/22/17 09:43 Dose: 81 mg Budesonide/Formoterol Fumarate (Symbicort 160/4.5mcg -) 1 puff IH BID [facility] Last Admin: 08/22/17 22:23 Dose: 1 puff Cholecalciferol (Vitamin D3 -) 2,000 unit PO DAILY [facility] Last Admin: 08/22/17 09:45 Dose: 2,000 unit Docusate Sodium (Colace -) 300 mg PO HS PRN PRN Reason: CONSTIPATION Ferrous Sulfate (Feosol -) 325 mg PO TID [facility] Last Admin: 08/23/17 06:18 Dose: 325 mg Furosemide (Lasix Injection -) 40 mg IVPUSH DAILY [facility] Last Admin: 08/22/17 09:46 Dose: 40 mg Hydrocortisone (Anusol 2.5% Hc Cream -) 1 applic TP BID [facility] Last Admin: 08/22/17 23:03 Dose: 1 applic Insulin Aspart (Novolog Vial Sliding Scale -) 1 vial SQ ACHS [facility] PRN Reason: Protocol Last Admin: 08/23/17 06:18 Dose: 4 units Meclizine HCl (Antivert -) 12.5 mg PO BID [facility] Last Admin: 08/22/17 22:23 Dose: 12.5 mg Methylprednisolone Sodium Succinate (Solu-Medrol -) 40 mg IVPUSH Q8H-IV [facility] Last Admin: 08/23/17 02:46 Dose: 40 mg Nifedipine (Procardia Xl -) 30 mg PO DAILY [facility] Last Admin: 08/22/17 09:46 Dose: 30 mg Non-Formulary Medication (Cyclosporine [Restasis]) 1 each OP BID [facility] Nystatin (Nystop Powder -) 1 applic TP BID [facility] Last Admin: 08/22/17 22:23 Dose: 1 applic Pantoprazole Sodium (Protonix -) 40 mg PO DAILY [facility] Last Admin: 08/22/17 09:45 Dose: 40 mg Rosuvastatin Calcium (Crestor -) 10 mg PO HS [facility] Last Admin: 08/22/17 22:23 Dose: 10 mg Sodium Chloride ([place] Nasal [place] -) 1 spray NS Q4H PRN PRN Reason: NASAL CONGESTION Tiotropium [place] (Spiriva -) 1 puff IH DAILY [facility] Last Admin: 08/22/17 09:43 Dose: Not Given Valsartan (Diovan -) 160 mg PO DAILY [facility] Last Admin: 08/22/17 09:45 Dose: 160 mg - Objective Vital Signs: Vital Signs Temperature 98 F 08/22/17 22:00 Pulse Rate 97 H 08/22/17 22:00 Respiratory Rate 18 08/22/17 22:00 Blood Pressure 137/63 08/22/17 22:00 O2 Sat by Pulse Oximetry (%) 98 08/22/17 21:00 Eyes: Yes: WNL, Conjunctiva Clear, EOM Intact HENT: Yes: WNL, Atraumatic, Normocephalic Neck: Yes: WNL, Supple, Trachea Midline Cardiovascular: Yes: WNL, Regular Rate and Rhythm Respiratory: Yes: WNL, Regular, CTA Bilaterally Gastrointestinal: Yes: WNL, Normal Bowel Sounds Genitourinary: Yes: WNL Musculoskeletal: Yes: WNL Extremities: Yes: WNL Edema: No Integumentary: Yes: WNL Neurological: Yes: WNL, Alert, Oriented ...Motor Strength: WNL Psychiatric: Yes: WNL Labs: CBC, BMP 08/22/17 08:36 08/22/17 08:36 INR, PTT INR 4.62 (0.82-1.09) H* 08/22/17 08:36 Assessment/Plan AECOPD Acute on chronic diastolic CHF, mild exacerbation History of PE on coumadin REC: 1. CHF: mildly decompensated acute on chronic diastolic CHF -Mild CAD on recent cath -Recent echo in February with normal LV function -Will switch Lasix to 40mg IV daily -Ordered for both Alondra and Ana, will hold one for now -Daily weights, low sodium diet 2. AECOPD: -As per PMD and pulmonary -She also has chronic PHTN due to COPD which leads to right sided CHF symptoms 3. History of PEs on coumadin: -INR supratherapeutic -Hold coumadin until IN drifts within desired range of 2-3 and then resume at adjusted dose with daily INRs while on Abx.
--- NOTE | 2017-08-23 09:10 | EKG ---
Test Reason : Blood Pressure : / mmHG Vent. Rate : 105 BPM Atrial Rate : 105 BPM P-R Int : 156 ms QRS Dur : 066 ms QT Int : 322 ms P-R-T Axes : 069 -15 037 degrees QTc Int : 425 ms POOR DATA QUALITY, INTERPRETATION MAY BE ADVERSELY AFFECTED SINUS TACHYCARDIA LOW VOLTAGE QRS POSSIBLE INFERIOR INFARCT , AGE UNDETERMINED ABNORMAL ECG WHEN COMPARED WITH ECG OF 20-AUG-2017 19:04, NO SIGNIFICANT CHANGE WAS FOUND Confirmed by YANIQUE THOMAS MD ([id number]) on 08/23/2017 9:09:40 AM Referred By: Confirmed By:YANIQUE THOMAS MD
[2017-08-23] MEDS: TIOTROPIUM BROMIDE 18 MCG/INH (DEVICE W/ 5 CAPSULES) IH SCH (10:33)
[2017-08-23] MEDS: BUDESONIDE/FORMETEROL FUMARATE 160/4.5 mcg INHALER IH SCH ×2 (10:33→21:19)
[2017-08-23] MEDS: ASPIRIN 81 MG CHEWABLE TABLETS PO SCH (10:35)
[2017-08-23] MEDS: CHOLECALCIFEROL (VITAMIN D3) 1,000 UNIT TABLET (FP) PO SCH (10:35)
[2017-08-23] MEDS: PANTOPRAZOLE 40 MG TABLET (FP) PO SCH (10:36)
[2017-08-23] MEDS: MECLIZINE HCL 12.5 MG TABLET PO SCH ×2 (10:36→21:18)
[2017-08-23] MEDS: FUROSEMIDE 40 MG/4 ML INJECTABLE VIAL IVPUSH SCH (10:36)
[2017-08-23] MEDS: NIFEdipine E.R. 30 MG TABLET (FP) PO SCH (10:36)
[2017-08-23] MEDS: VALSARTAN 160 MG TABLET (UD) PO SCH (10:36)
[2017-08-23] MEDS: NYSTATIN POWDER 100,000 UNITS/GM - 15 GM TOPICAL POWDER TP SCH ×2 (10:56→21:19)
--- NOTE | 2017-08-23 11:31 | PN ---
Progress Note (short form) - Note Progress Note: Still with PICKERING. No further epistaxis. Intake & Output 08/20/17 08/21/17 08/22/17 08/23/17 23:59 23:59 23:59 23:59 Intake Total 1680 1095 400 Output Total 450 Balance 1230 1095 400 Weight 276 lb 295 lb 0.4 oz 290 lb 8 oz Last Vital Signs Temp Pulse Resp BP Pulse Ox 100 F H 116 H 18 136/74 98 08/23/17 10:51 08/23/17 10:51 08/23/17 10:51 08/23/17 10:51 08/22/17 21:00 Active Medications Acetaminophen (Tylenol -) 650 mg PO TID PRN PRN Reason: PAIN Albuterol/Ipratropium (Duoneb -) 1 amp NEB Q6H PRN PRN Reason: SHORTNESS OF BREATH Last Admin: 08/23/17 06:39 Dose: 1 amp Aspirin (Asa -) 81 mg PO DAILY [facility] Last Admin: 08/23/17 10:35 Dose: 81 mg Budesonide/Formoterol Fumarate (Symbicort 160/4.5mcg -) 1 puff IH BID [facility] Last Admin: 08/23/17 10:33 Dose: 1 puff Cholecalciferol (Vitamin D3 -) 2,000 unit PO DAILY [facility] Last Admin: 08/23/17 10:35 Dose: 2,000 unit Docusate Sodium (Colace -) 300 mg PO HS PRN PRN Reason: CONSTIPATION Ferrous Sulfate (Feosol -) 325 mg PO TID [facility] Last Admin: 08/23/17 06:18 Dose: 325 mg Furosemide (Lasix Injection -) 40 mg IVPUSH DAILY [facility] Last Admin: 08/23/17 10:36 Dose: 40 mg Hydrocortisone (Anusol 2.5% Hc Cream -) 1 applic TP BID [facility] Last Admin: 08/22/17 23:03 Dose: 1 applic Insulin Aspart (Novolog Vial Sliding Scale -) 1 vial SQ ACHS [facility] PRN Reason: Protocol Last Admin: 08/23/17 06:18 Dose: 4 units Meclizine HCl (Antivert -) 12.5 mg PO BID [facility] Last Admin: 08/23/17 10:36 Dose: 12.5 mg Methylprednisolone Sodium Succinate (Solu-Medrol -) 40 mg IVPUSH Q8H-IV [facility] Last Admin: 08/23/17 10:34 Dose: 40 mg Nifedipine (Procardia Xl -) 30 mg PO DAILY [facility] Last Admin: 08/23/17 10:36 Dose: 30 mg Non-Formulary Medication (Cyclosporine [Restasis]) 1 each OP BID [facility] Nystatin (Nystop Powder -) 1 applic TP BID [facility] Last Admin: 08/22/17 22:23 Dose: 1 applic Pantoprazole Sodium (Protonix -) 40 mg PO DAILY [facility] Last Admin: 08/23/17 10:36 Dose: 40 mg Rosuvastatin Calcium (Crestor -) 10 mg PO HS [facility] Last Admin: 08/22/17 22:23 Dose: 10 mg Sodium Chloride ([place] [employer] Nasal [employer] -) 1 spray NS Q4H PRN PRN Reason: NASAL CONGESTION Tiotropium [place] (Spiriva -) 1 puff IH DAILY [facility] Last Admin: 08/23/17 10:33 Dose: 1 puff Valsartan (Diovan -) 160 mg PO DAILY [facility] Last Admin: 08/23/17 10:36 Dose: 160 mg Constitutional: Yes: NAD HENT: Yes: No active bleed Cardiovascular: Yes: Regular Rate and Rhythm Respiratory: Yes: Diminished at the bases Neurological: Yes: Alert, Oriented Laboratory Results - last 24 hr 08/22/17 08/22/17 08/22/17 12:01 17:42 22:28 POC Glucometer 204 196 213 08/23/17 06:16 POC Glucometer 218 Problem List - Problems (1) SOB (shortness of breath) Code(s): R06.02 - SHORTNESS OF BREATH (2) Acute on chronic respiratory failure with hypoxia and hypercapnia Code(s): J96.21 - ACUTE AND CHRONIC RESPIRATORY FAILURE WITH HYPOXIA J96.22 - ACUTE AND CHRONIC RESPIRATORY FAILURE WITH HYPERCAPNIA (3) Anemia Code(s): D64.9 - ANEMIA, UNSPECIFIED (4) CHF (congestive heart failure) Code(s): I50.9 - HEART FAILURE, UNSPECIFIED (5) COPD exacerbation Code(s): J44.1 - CHRONIC OBSTRUCTIVE PULMONARY DISEASE W (ACUTE) EXACERBATION (6) Chronic diastolic (congestive) heart failure Code(s): I50.32 - CHRONIC DIASTOLIC (CONGESTIVE) HEART FAILURE (7) Coronary artery disease Code(s): I25.10 - ATHSCL HEART DISEASE OF [place] CORONARY ARTERY W/O ANG PCTRS (8) History of pulmonary embolism Code(s): Z86.711 - PERSONAL HISTORY OF PULMONARY EMBOLISM (9) Morbid obesity Code(s): E66.01 - MORBID (SEVERE) OBESITY DUE TO EXCESS CALORIES (10) Pulmonary hypertension Code(s): I27.2 - OTHER SECONDARY PULMONARY HYPERTENSION * DO NOT USE * IMP ACUTE ON CHRONIC HYPOXEMIC/HYPERCAPNEIC RESPIRATORY FAILURE END STAGE COPD O2 DEPENDENT WITH ACUTE EXACERBATION URI DIASTOLIC HF PULMONARY HTN H/O RECURRENT PULMONARY EMBOLI HTN MORBID OBESITY PLAN IV STEROIDS SUPPLEMENTAL O2 INHALED BRONCHODILATORS NIPPV NEEDED DIURETICS SLEEP WORKUP AFTER DISCHARGE DR MANJARREZ
[2017-08-23] MEDS ORDERED: AZITHROMYCIN 250 MG TABLET PO ONE (14:09)
--- NOTE | 2017-08-23 14:18 | PN ---
Progress Note, Physician History of Present Illness: Pt seen and examined. c/o dyspnea on exertion. Reports increase in sputum production. Low grade temp elevation 100F today. - Current Medication List Current Medications: Active Medications Acetaminophen (Tylenol -) 650 mg PO TID PRN PRN Reason: PAIN Albuterol/Ipratropium (Duoneb -) 1 amp NEB Q6H PRN PRN Reason: SHORTNESS OF BREATH Last Admin: 08/23/17 13:20 Dose: 1 amp Aspirin (Asa -) 81 mg PO DAILY [facility] Last Admin: 08/23/17 10:35 Dose: 81 mg Azithromycin (Zithromax -) 250 mg PO DAILY [facility] Stop: 08/28/17 09:59 Budesonide/Formoterol Fumarate (Symbicort 160/4.5mcg -) 1 puff IH BID [facility] Last Admin: 08/23/17 10:33 Dose: 1 puff Cholecalciferol (Vitamin D3 -) 2,000 unit PO DAILY [facility] Last Admin: 08/23/17 10:35 Dose: 2,000 unit Ferrous Sulfate (Feosol -) 325 mg PO DAILY@0800 [facility] Furosemide (Lasix Injection -) 40 mg IVPUSH DAILY [facility] Last Admin: 08/23/17 10:36 Dose: 40 mg Hydrocortisone (Anusol 2.5% Hc Cream -) 1 applic TP BID [facility] Last Admin: 08/22/17 23:03 Dose: 1 applic Insulin Aspart (Novolog Vial Sliding Scale -) 1 vial SQ ACHS [facility] PRN Reason: Protocol Last Admin: 08/23/17 12:31 Dose: 2 units Meclizine HCl (Antivert -) 12.5 mg PO BID [facility] Last Admin: 08/23/17 10:36 Dose: 12.5 mg Methylprednisolone Sodium Succinate (Solu-Medrol -) 40 mg IVPUSH Q8H-IV [facility] Last Admin: 08/23/17 10:34 Dose: 40 mg Nifedipine (Procardia Xl -) 30 mg PO DAILY [facility] Last Admin: 08/23/17 10:36 Dose: 30 mg Non-Formulary Medication (Cyclosporine [Restasis]) 1 each OP BID [facility] Nystatin (Nystop Powder -) 1 applic TP BID [facility] Last Admin: 08/22/17 22:23 Dose: 1 applic Pantoprazole Sodium (Protonix -) 40 mg PO DAILY [facility] Last Admin: 08/23/17 10:36 Dose: 40 mg Rosuvastatin Calcium (Crestor -) 10 mg PO HS [facility] Last Admin: 08/22/17 22:23 Dose: 10 mg Senna (Senna -) 1 tab PO BID [facility] Sodium Chloride ([place] Nasal [place] -) 1 spray NS Q4H PRN PRN Reason: NASAL CONGESTION Tiotropium [place] (Spiriva -) 1 puff IH DAILY [facility] Last Admin: 08/23/17 10:33 Dose: 1 puff Valsartan (Diovan -) 160 mg PO DAILY [facility] Last Admin: 08/23/17 10:36 Dose: 160 mg - Objective Vital Signs: Vital Signs Temperature 100 F H 08/23/17 10:51 Pulse Rate 111 H 08/23/17 13:15 Respiratory Rate 18 08/23/17 10:51 Blood Pressure 136/74 08/23/17 10:51 O2 Sat by Pulse Oximetry (%) 99 08/23/17 13:15 Constitutional: Yes: No Distress Neck: Yes: Supple Cardiovascular: Yes: Tachycardia Respiratory: Yes: Diminished, Wheezes Gastrointestinal: Yes: Normal Bowel Sounds, Soft, Abdomen, Obese Genitourinary: Yes: WNL Integumentary: Yes: WNL Labs: CBC, BMP 08/22/17 08:36 08/22/17 08:36 INR, PTT INR 4.62 (0.82-1.09) H* 08/22/17 08:36 Problem List - Problems (1) Acute exacerbation of chronic bronchitis Code(s): J20.9 - ACUTE BRONCHITIS, UNSPECIFIED J42 - UNSPECIFIED CHRONIC BRONCHITIS (2) Anemia Code(s): D64.9 - ANEMIA, UNSPECIFIED (3) CHF (congestive heart failure) Code(s): I50.9 - HEART FAILURE, UNSPECIFIED (4) COPD exacerbation Code(s): J44.1 - CHRONIC OBSTRUCTIVE PULMONARY DISEASE W (ACUTE) EXACERBATION (5) Morbid obesity Code(s): E66.01 - MORBID (SEVERE) OBESITY DUE TO EXCESS CALORIES (6) Pulmonary embolus Code(s): I26.99 - OTHER PULMONARY EMBOLISM WITHOUT ACUTE COR PULMONALE Assessment/Plan COPD exacerbation Possible acute bronchitis Fever Leukocytosis, on steroids - start Azithromycin - continue monitor temperatures
[2017-08-23] MEDS: HYDROCORTISONE 2.5% TOPICAL CREAM 30 GM TUBE TP SCH ×2 (14:56→21:18)
--- NOTE | 2017-08-23 21:06 | PN ---
Progress Note, Physician History of Present Illness: Tmax 100.4 Pt w/ multiple complaints Hemorrhoids/wheezing - Current Medication List Current Medications: Active Medications Acetaminophen (Tylenol -) 650 mg PO TID PRN PRN Reason: PAIN Albuterol/Ipratropium (Duoneb -) 1 amp NEB Q6H PRN PRN Reason: SHORTNESS OF BREATH Last Admin: 08/23/17 21:05 Dose: 1 amp Aspirin (Asa -) 81 mg PO DAILY [facility] Last Admin: 08/23/17 10:35 Dose: 81 mg Azithromycin (Zithromax -) 250 mg PO DAILY [facility] Stop: 08/28/17 09:59 Budesonide/Formoterol Fumarate (Symbicort 160/4.5mcg -) 1 puff IH BID [facility] Last Admin: 08/23/17 10:33 Dose: 1 puff Cholecalciferol (Vitamin D3 -) 2,000 unit PO DAILY [facility] Last Admin: 08/23/17 10:35 Dose: 2,000 unit Ferrous Sulfate (Feosol -) 325 mg PO DAILY@0800 [facility] Furosemide (Lasix Injection -) 40 mg IVPUSH DAILY [facility] Last Admin: 08/23/17 10:36 Dose: 40 mg Hydrocortisone (Anusol 2.5% Hc Cream -) 1 applic TP BID [facility] Last Admin: 08/23/17 14:56 Dose: 1 applic Insulin Aspart (Novolog Vial Sliding Scale -) 1 vial SQ ACHS [facility] PRN Reason: Protocol Last Admin: 08/23/17 17:35 Dose: 6 units Meclizine HCl (Antivert -) 12.5 mg PO BID [facility] Last Admin: 08/23/17 10:36 Dose: 12.5 mg Methylprednisolone Sodium Succinate (Solu-Medrol -) 40 mg IVPUSH Q8H-IV [facility] Last Admin: 08/23/17 17:35 Dose: 40 mg Nifedipine (Procardia Xl -) 30 mg PO DAILY [facility] Last Admin: 08/23/17 10:36 Dose: 30 mg Non-Formulary Medication (Cyclosporine [Restasis]) 1 each OP BID [facility] Nystatin (Nystop Powder -) 1 applic TP BID [facility] Last Admin: 08/23/17 10:56 Dose: 1 applic Pantoprazole Sodium (Protonix -) 40 mg PO DAILY [facility] Last Admin: 08/23/17 10:36 Dose: 40 mg Rosuvastatin Calcium (Crestor -) 10 mg PO HS [facility] Last Admin: 08/22/17 22:23 Dose: 10 mg Senna (Senna -) 1 tab PO BID [facility] Sodium Chloride ([place] Nasal [place] -) 1 spray NS Q4H PRN PRN Reason: NASAL CONGESTION Tiotropium [place] (Spiriva -) 1 puff IH DAILY [facility] Last Admin: 08/23/17 10:33 Dose: 1 puff Valsartan (Diovan -) 160 mg PO DAILY [facility] Last Admin: 08/23/17 10:36 Dose: 160 mg - Objective Vital Signs: Vital Signs Temperature 100.2 F H 08/23/17 18:48 Pulse Rate 100 H 08/23/17 18:48 Respiratory Rate 20 08/23/17 18:48 Blood Pressure 125/75 08/23/17 18:48 O2 Sat by Pulse Oximetry (%) 99 08/23/17 13:15 Constitutional: Yes: Well Nourished Neck: Yes: WNL, Supple Cardiovascular: Yes: WNL, Regular Rate and Rhythm Respiratory: Yes: Diminished, Wheezes Gastrointestinal: Yes: WNL, Normal Bowel Sounds, Soft, Abdomen, Obese Labs: CBC, BMP 08/22/17 08:36 08/22/17 08:36 INR, PTT INR 4.62 (0.82-1.09) H* 08/22/17 08:36 Problem List - Problems (1) Anemia Code(s): D64.9 - ANEMIA, UNSPECIFIED (2) COPD exacerbation Assessment/Plan: Cont OV solumedrol Pt also w/ acute bronchitis and now has increased wbc w/ shift Cont nebulizers/spiriva/symbicort Pt now started on po zithro Code(s): J44.1 - CHRONIC OBSTRUCTIVE PULMONARY DISEASE W (ACUTE) EXACERBATION (3) DVT (deep venous thrombosis) Assessment/Plan: PT/inr supratherapeutic Cont to follow Restart coumadin once below 3 Code(s): I82.409 - ACUTE EMBOLISM AND THOMBOS UNSP DEEP VN UNSP LOWER EXTREMITY (4) History of pulmonary embolism Assessment/Plan: PT/inr supratherapeutic Cont to follow Restart coumadin once below 3 Code(s): Z86.711 - PERSONAL HISTORY OF PULMONARY EMBOLISM (5) Acute exacerbation of chronic bronchitis Code(s): J20.9 - ACUTE BRONCHITIS, UNSPECIFIED J42 - UNSPECIFIED CHRONIC BRONCHITIS (6) Chronic diastolic (congestive) heart failure Assessment/Plan: Cont lasix Monitor electrolytes Code(s): I50.32 - CHRONIC DIASTOLIC (CONGESTIVE) HEART FAILURE (7) Hypertension Assessment/Plan: BP stable Cont procardia/diovan Code(s): I10 - ESSENTIAL (PRIMARY) HYPERTENSION (8) HLD (hyperlipidemia) Assessment/Plan: Cont crestor Code(s): E78.5 - HYPERLIPIDEMIA, UNSPECIFIED (9) Hemorrhoid Assessment/Plan: Cont ausol Code(s): K64.9 - UNSPECIFIED HEMORRHOIDS (10) Morbid obesity Code(s): E66.01 - MORBID (SEVERE) OBESITY DUE TO EXCESS CALORIES (11) Coronary artery disease Code(s): I25.10 - ATHSCL HEART DISEASE OF [place] CORONARY ARTERY W/O ANG PCTRS
[2017-08-23] MEDS ORDERED: INSULIN (NOVOLOG) ASPART 100 UNITS/ML 10ML VIAL ONE (21:11)
[2017-08-23] MEDS: ROSUVASTATIN CA 10 MG TABLET (FP) PO SCH (21:18)
[2017-08-23] MEDS: SENNOSIDES 8.6MG TABLET (FP) PO SCH (21:19)
[2017-08-24] MEDS: methylPREDNISolone NA SUCC 40 MG/1 ML VIAL IVPUSH SCH ×3 (02:00→17:07)
[2017-08-24] MEDS: ALBUTEROL SO4 2.5/IPRATROPIUM 0.5 INH SOL 3 ML VIAL.NEB. NEB PRN ×2 (06:53→13:39)
[2017-08-24] MEDS: INSULIN SLIDING SCALE (NOVOLOG) 1 VIAL SQ SCH ×4 (06:56→22:14)
[2017-08-24] MEDS ORDERED: FERROUS SO4 325 MG TABLET (FP) PO SCH (08:00)
[2017-08-24 08:12] LABS: BASOPHIL 0.2 % (0-2.0); MCH 22.4 pg (25.7-33.7); MCHC 29.3 g/dl (32.0-36.0); MEAN CELL VOLUME 76.3 fl (80-96); MEAN PLT VOLUME 9.8 fl (7.5-11.1); NEUTROPHILS 86.2 % (42.8-82.8); PLATELET COUNT 283 K/MM3 (134-434); RDW 15.7 % (11.6-15.6); WHITE BLOOD COUNT 17.5 K/mm3 (4.0-10.0)
[2017-08-24 08:43] LABS: INR 2.93 (0.82-1.09); PROTHROMBIN TIME (PATIENT) 33.1 SEC (9.98-11.88)
[2017-08-24 08:50] LABS: ALBUMIN 3.5 g/dl (3.4-5.0); ANION GAP 7 (8-16); CALCIUM 8.3 mg/dL (8.5-10.1); CO2 37 mmol/L (21-32); GLUCOSE,RANDOM 155 mg/dL (74-106)
[2017-08-24 08:55] LABS: ALK PHOS 45 U/L (45-117); BILIRUBIN,TOTAL 0.4 mg/dL (0.2-1.0); CREATININE 1.3 mg/dL (0.55-1.02); SGOT/AST 10 U/L (15-37); SGPT/ALT 24 U/L (12-78); TOT PROT 6.1 g/dl (6.4-8.2)
[2017-08-24] MEDS: TIOTROPIUM BROMIDE 18 MCG/INH (DEVICE W/ 5 CAPSULES) IH SCH (11:20)
[2017-08-24] MEDS: BUDESONIDE/FORMETEROL FUMARATE 160/4.5 mcg INHALER IH SCH ×2 (11:21→22:02)
[2017-08-24] MEDS: NYSTATIN POWDER 100,000 UNITS/GM - 15 GM TOPICAL POWDER TP SCH ×2 (11:22→22:10)
[2017-08-24] MEDS: VALSARTAN 160 MG TABLET (UD) PO SCH (11:23)
[2017-08-24] MEDS: CHOLECALCIFEROL (VITAMIN D3) 1,000 UNIT TABLET (FP) PO SCH (11:23)
[2017-08-24] MEDS: FUROSEMIDE 40 MG/4 ML INJECTABLE VIAL IVPUSH SCH (11:24)
[2017-08-24] MEDS: MECLIZINE HCL 12.5 MG TABLET PO SCH ×2 (11:24→22:01)
[2017-08-24] MEDS: ASPIRIN 81 MG CHEWABLE TABLETS PO SCH (11:24)
[2017-08-24] MEDS: SENNOSIDES 8.6MG TABLET (FP) PO SCH ×2 (11:24→22:01)
[2017-08-24] MEDS: PANTOPRAZOLE 40 MG TABLET (FP) PO SCH (11:25)
[2017-08-24] MEDS: NIFEdipine E.R. 30 MG TABLET (FP) PO SCH (11:25)
[2017-08-24] MEDS: HYDROCORTISONE 2.5% TOPICAL CREAM 30 GM TUBE TP SCH ×2 (11:25→22:10)
[2017-08-24] MEDS: AZITHROMYCIN 250 MG TABLET PO SCH (11:27)
--- NOTE | 2017-08-24 11:36 | PN ---
Progress Note, Physician History of Present Illness: seen and examined today in nad. states she is wheezing more, has more plegm and cough, LE edema resolved. sob when getting up. - Current Medication List Current Medications: Active Medications Acetaminophen (Tylenol -) 650 mg PO TID PRN PRN Reason: PAIN Albuterol/Ipratropium (Duoneb -) 1 amp NEB Q6H PRN PRN Reason: SHORTNESS OF BREATH Last Admin: 08/24/17 06:53 Dose: 1 amp Aspirin (Asa -) 81 mg PO DAILY [facility] Last Admin: 08/24/17 11:24 Dose: 81 mg Azithromycin (Zithromax -) 250 mg PO DAILY [facility] Stop: 08/28/17 09:59 Last Admin: 08/24/17 11:27 Dose: 250 mg Budesonide/Formoterol Fumarate (Symbicort 160/4.5mcg -) 1 puff IH BID [facility] Last Admin: 08/24/17 11:21 Dose: 1 puff Cholecalciferol (Vitamin D3 -) 2,000 unit PO DAILY [facility] Last Admin: 08/24/17 11:23 Dose: 2,000 unit Ferrous Sulfate (Feosol -) 325 mg PO DAILY@0800 [facility] Furosemide (Lasix Injection -) 40 mg IVPUSH DAILY [facility] Last Admin: 08/24/17 11:24 Dose: 40 mg Hydrocortisone (Anusol 2.5% Hc Cream -) 1 applic TP BID [facility] Last Admin: 08/24/17 11:25 Dose: 1 applic Insulin Aspart (Novolog Vial Sliding Scale -) 1 vial SQ ACHS [facility] PRN Reason: Protocol Last Admin: 08/24/17 06:56 Dose: 2 units Meclizine HCl (Antivert -) 12.5 mg PO BID [facility] Last Admin: 08/24/17 11:24 Dose: 12.5 mg Methylprednisolone Sodium Succinate (Solu-Medrol -) 40 mg IVPUSH Q8H-IV [facility] Last Admin: 08/24/17 11:26 Dose: 40 mg Nifedipine (Procardia Xl -) 30 mg PO DAILY [facility] Last Admin: 08/24/17 11:25 Dose: 30 mg Non-Formulary Medication (Cyclosporine [Restasis]) 1 each OP BID [facility] Nystatin (Nystop Powder -) 1 applic TP BID [facility] Last Admin: 08/24/17 11:22 Dose: 1 applic Pantoprazole Sodium (Protonix -) 40 mg PO DAILY [facility] Last Admin: 08/24/17 11:25 Dose: 40 mg Rosuvastatin Calcium (Crestor -) 10 mg PO HS [facility] Last Admin: 08/23/17 21:18 Dose: 10 mg Senna (Senna -) 1 tab PO BID [facility] Last Admin: 08/24/17 11:24 Dose: 1 tab Sodium Chloride ([place] Nasal [place] -) 1 spray NS Q4H PRN PRN Reason: NASAL CONGESTION Tiotropium [place] (Spiriva -) 1 puff IH DAILY [facility] Last Admin: 08/24/17 11:20 Dose: 1 puff Valsartan (Diovan -) 160 mg PO DAILY [facility] Last Admin: 08/24/17 11:23 Dose: 160 mg - Objective Vital Signs: Vital Signs Temperature 98.8 F 08/24/17 09:23 Pulse Rate 117 H 08/24/17 09:23 Respiratory Rate 20 08/24/17 09:23 Blood Pressure 158/90 08/24/17 09:23 O2 Sat by Pulse Oximetry (%) 99 08/24/17 10:00 Constitutional: Yes: No Distress, Calm, Obese Eyes: Yes: Conjunctiva Clear, EOM Intact, PERRL HENT: Yes: Atraumatic, Normocephalic Neck: Yes: Supple, Trachea Midline Cardiovascular: Yes: Regular Rate and Rhythm, S1, S2. No: Bradycardia, Tachycardia, Pulse Irregular, Bruit, JVD, Gallop, Murmur, Rub, S3, S4, Varicosities Respiratory: Yes: Regular, Diminished, Rhonchi, Wheezes. No: Rales, SOB Gastrointestinal: Yes: Normal Bowel Sounds, Soft. No: Distention, Tenderness Extremities: Yes: WNL Edema: No Peripheral Pulses WNL: Yes Peripheral Pulses: Left Doralis Pedis: 2+, Right Dorsalis Pedis: 2+ Neurological: Yes: Alert, Oriented Psychiatric: Yes: Alert, Oriented Labs: CBC, BMP 08/24/17 06:58 08/24/17 06:58 INR, PTT INR 2.93 (0.82-1.09) H D 08/24/17 06:58 - ....Imaging Chest X-ray: Report Reviewed, Image Reviewed EKG: Report Reviewed, Image Reviewed Other: Report Reviewed, Image Reviewed Assessment/Plan AECOPD Acute on chronic diastolic CHF, mild exacerbation History of PE on coumadin REC: SOB-multifactorial, appears primarily AE COPD with mild superimposed acute on chronic diastolic CHF -Mild CAD on recent cath -Recent echo in February with normal LV function -LE edema has resolved, pt reported lightheadedness this am -I/Os positive but does not appear recorded accurately, weight is trending down -Will cont Lasix 40mg IV daily for 1 more day with plan to likely transition to po tomorrow -monitor strict I/Os, daily weights, labs for bun/creat, electrolytes and replete as needed AECOPD: -As per PMD and pulmonary -She also has chronic PHTN due to COPD which leads to right sided CHF symptoms History of PEs on coumadin: -INR in therapeutic range now, supratherapeutic on admission -likely need to reduce dose going forward
--- NOTE | 2017-08-24 11:45 | PN ---
Progress Note (short form) - Note Progress Note: PULMONARY Still feels short of breath with cough productive of green sputum. +wheezing. No fevers or chills. Last Vital Signs Temp Pulse Resp BP Pulse Ox 98.8 F 117 H 20 158/90 99 08/24/17 09:23 08/24/17 09:23 08/24/17 09:23 08/24/17 09:23 08/24/17 10:00 Gen: mildly tachypneic with speaking Heart: RRR Lung: distant breath sounds, scattered wheezes Abd: soft, nontender Ext: no edema CBC, BMP 08/24/17 06:58 08/24/17 06:58 Active Medications Acetaminophen (Tylenol -) 650 mg PO TID PRN PRN Reason: PAIN Albuterol/Ipratropium (Duoneb -) 1 amp NEB Q6H PRN PRN Reason: SHORTNESS OF BREATH Last Admin: 08/24/17 06:53 Dose: 1 amp Aspirin (Asa -) 81 mg PO DAILY [facility] Last Admin: 08/24/17 11:24 Dose: 81 mg Azithromycin (Zithromax -) 250 mg PO DAILY [facility] Stop: 08/28/17 09:59 Last Admin: 08/24/17 11:27 Dose: 250 mg Budesonide/Formoterol Fumarate (Symbicort 160/4.5mcg -) 1 puff IH BID [facility] Last Admin: 08/24/17 11:21 Dose: 1 puff Cholecalciferol (Vitamin D3 -) 2,000 unit PO DAILY [facility] Last Admin: 08/24/17 11:23 Dose: 2,000 unit Ferrous Sulfate (Feosol -) 325 mg PO DAILY@0800 [facility] Furosemide (Lasix Injection -) 40 mg IVPUSH DAILY [facility] Last Admin: 08/24/17 11:24 Dose: 40 mg Hydrocortisone (Anusol 2.5% Hc Cream -) 1 applic TP BID [facility] Last Admin: 08/24/17 11:25 Dose: 1 applic Insulin Aspart (Novolog Vial Sliding Scale -) 1 vial SQ ACHS [facility] PRN Reason: Protocol Last Admin: 08/24/17 06:56 Dose: 2 units Meclizine HCl (Antivert -) 12.5 mg PO BID [facility] Last Admin: 08/24/17 11:24 Dose: 12.5 mg Methylprednisolone Sodium Succinate (Solu-Medrol -) 40 mg IVPUSH Q8H-IV [facility] Last Admin: 08/24/17 11:26 Dose: 40 mg Nifedipine (Procardia Xl -) 30 mg PO DAILY [facility] Last Admin: 08/24/17 11:25 Dose: 30 mg Non-Formulary Medication (Cyclosporine [Restasis]) 1 each OP BID [facility] Nystatin (Nystop Powder -) 1 applic TP BID [facility] Last Admin: 08/24/17 11:22 Dose: 1 applic Pantoprazole Sodium (Protonix -) 40 mg PO DAILY [facility] Last Admin: 08/24/17 11:25 Dose: 40 mg Rosuvastatin Calcium (Crestor -) 10 mg PO HS [facility] Last Admin: 08/23/17 21:18 Dose: 10 mg Senna (Senna -) 1 tab PO BID [facility] Last Admin: 08/24/17 11:24 Dose: 1 tab Sodium Chloride ([place] Nasal [place] -) 1 spray NS Q4H PRN PRN Reason: NASAL CONGESTION Tiotropium [place] (Spiriva -) 1 puff IH DAILY [facility] Last Admin: 08/24/17 11:20 Dose: 1 puff Valsartan (Diovan -) 160 mg PO DAILY [facility] Last Admin: 08/24/17 11:23 Dose: 160 mg A/P Acute on Chronic Hypoxic and Hypercapneic Respiratory Failure Acute COPD Exacerbation URI LV Diastolic Dysfunction Pulmonary HTN h/o PE Morbid Obesity HTN - continue medrol at current dose - if feels the same or better tomorrow, can start to taper - inhaled bronchodilators - O2 to keep SpO2 >90% - DVT prophylaxis
[2017-08-24] MEDS ORDERED: PT OWN MED DRAWER 7, Y5N ONE ×3 (12:30→22:09)
--- NOTE | 2017-08-24 15:00 | PN ---
Progress Note, Physician History of Present Illness: patient feeling slightly better still sob - Current Medication List Current Medications: Active Medications Acetaminophen (Tylenol -) 650 mg PO TID PRN PRN Reason: PAIN Albuterol/Ipratropium (Duoneb -) 1 amp NEB Q6H PRN PRN Reason: SHORTNESS OF BREATH Last Admin: 08/24/17 13:39 Dose: 1 amp Aspirin (Asa -) 81 mg PO DAILY [facility] Last Admin: 08/24/17 11:24 Dose: 81 mg Azithromycin (Zithromax -) 250 mg PO DAILY [facility] Stop: 08/28/17 09:59 Last Admin: 08/24/17 11:27 Dose: 250 mg Budesonide/Formoterol Fumarate (Symbicort 160/4.5mcg -) 1 puff IH BID [facility] Last Admin: 08/24/17 11:21 Dose: 1 puff Cholecalciferol (Vitamin D3 -) 2,000 unit PO DAILY [facility] Last Admin: 08/24/17 11:23 Dose: 2,000 unit Ferrous Sulfate (Feosol -) 325 mg PO DAILY@0800 [facility] Last Admin: 08/24/17 12:19 Dose: 325 mg Furosemide (Lasix Injection -) 40 mg IVPUSH DAILY [facility] Last Admin: 08/24/17 11:24 Dose: 40 mg Hydrocortisone (Anusol 2.5% Hc Cream -) 1 applic TP BID [facility] Last Admin: 08/24/17 11:25 Dose: 1 applic Insulin Aspart (Novolog Vial Sliding Scale -) 1 vial SQ ACHS [facility] PRN Reason: Protocol Last Admin: 08/24/17 12:19 Dose: 6 units Meclizine HCl (Antivert -) 12.5 mg PO BID [facility] Last Admin: 08/24/17 11:24 Dose: 12.5 mg Methylprednisolone Sodium Succinate (Solu-Medrol -) 40 mg IVPUSH Q8H-IV [facility] Last Admin: 08/24/17 11:26 Dose: 40 mg Nifedipine (Procardia Xl -) 30 mg PO DAILY [facility] Last Admin: 08/24/17 11:25 Dose: 30 mg Non-Formulary Medication (Cyclosporine [Restasis]) 1 each OP BID [facility] Nystatin (Nystop Powder -) 1 applic TP BID [facility] Last Admin: 08/24/17 11:22 Dose: 1 applic Pantoprazole Sodium (Protonix -) 40 mg PO DAILY [facility] Last Admin: 08/24/17 11:25 Dose: 40 mg Rosuvastatin Calcium (Crestor -) 10 mg PO HS [facility] Last Admin: 08/23/17 21:18 Dose: 10 mg Senna (Senna -) 1 tab PO BID [facility] Last Admin: 08/24/17 11:24 Dose: 1 tab Sodium Chloride ([place] Nasal [place] -) 1 spray NS Q4H PRN PRN Reason: NASAL CONGESTION Tiotropium [place] (Spiriva -) 1 puff IH DAILY [facility] Last Admin: 08/24/17 11:20 Dose: 1 puff Valsartan (Diovan -) 160 mg PO DAILY [facility] Last Admin: 08/24/17 11:23 Dose: 160 mg - Objective Vital Signs: Vital Signs Temperature 98.8 F 08/24/17 09:23 Pulse Rate 117 H 08/24/17 09:23 Respiratory Rate 20 08/24/17 09:23 Blood Pressure 158/90 08/24/17 09:23 O2 Sat by Pulse Oximetry (%) 99 08/24/17 10:00 Constitutional: Yes: Calm, Mild Distress Cardiovascular: Yes: S1, S2 Respiratory: Yes: On Nasal O2, Poor Air Entry, Rhonchi Gastrointestinal: Yes: Normal Bowel Sounds, Soft Musculoskeletal: Yes: WNL Extremities: Yes: WNL Neurological: Yes: Alert, Oriented Psychiatric: Yes: Alert, Oriented Labs: CBC, BMP 08/24/17 06:58 08/24/17 06:58 INR, PTT INR 2.93 (0.82-1.09) H D 08/24/17 06:58 Assessment/Plan Problem List - Problems (1) SOB (shortness of breath) Code(s): R06.02 - SHORTNESS OF BREATH (2) Acute on chronic respiratory failure with hypoxia and hypercapnia Code(s): J96.21 - ACUTE AND CHRONIC RESPIRATORY FAILURE WITH HYPOXIA J96.22 - ACUTE AND CHRONIC RESPIRATORY FAILURE WITH HYPERCAPNIA (3) Anemia Code(s): D64.9 - ANEMIA, UNSPECIFIED (4) CHF (congestive heart failure) Code(s): I50.9 - HEART FAILURE, UNSPECIFIED (5) COPD exacerbation Code(s): J44.1 - CHRONIC OBSTRUCTIVE PULMONARY DISEASE W (ACUTE) EXACERBATION (6) Chronic diastolic (congestive) heart failure Code(s): I50.32 - CHRONIC DIASTOLIC (CONGESTIVE) HEART FAILURE (7) Coronary artery disease Code(s): I25.10 - ATHSCL HEART DISEASE OF [place] CORONARY ARTERY W/O ANG PCTRS (8) History of pulmonary embolism Code(s): Z86.711 - PERSONAL HISTORY OF PULMONARY EMBOLISM (9) Morbid obesity Code(s): E66.01 - MORBID (SEVERE) OBESITY DUE TO EXCESS CALORIES (10) Pulmonary hypertension Code(s): I27.2 - OTHER SECONDARY PULMONARY HYPERTENSION * DO NOT USE * plan after looing at the picture and the story i think this is probably copra processor exacerbation plan continue current mgmt cx result noted incentive schuyler rest as per primary team
[2017-08-24] MEDS ORDERED: WARFARIN NA 3 MG TABLET PO ONE ×2 (19:15→22:00)
--- NOTE | 2017-08-24 20:11 | PN ---
Progress Note, Physician History of Present Illness: No new complaints - Current Medication List Current Medications: Active Medications Acetaminophen (Tylenol -) 650 mg PO TID PRN PRN Reason: PAIN Albuterol/Ipratropium (Duoneb -) 1 amp NEB Q6H PRN PRN Reason: SHORTNESS OF BREATH Last Admin: 08/24/17 13:39 Dose: 1 amp Aspirin (Asa -) 81 mg PO DAILY [facility] Last Admin: 08/24/17 11:24 Dose: 81 mg Azithromycin (Zithromax -) 250 mg PO DAILY [facility] Stop: 08/28/17 09:59 Last Admin: 08/24/17 11:27 Dose: 250 mg Budesonide/Formoterol Fumarate (Symbicort 160/4.5mcg -) 1 puff IH BID [facility] Last Admin: 08/24/17 11:21 Dose: 1 puff Cholecalciferol (Vitamin D3 -) 2,000 unit PO DAILY [facility] Last Admin: 08/24/17 11:23 Dose: 2,000 unit Ferrous Sulfate (Feosol -) 325 mg PO TIDCM [facility] Furosemide (Lasix Injection -) 40 mg IVPUSH DAILY [facility] Last Admin: 08/24/17 11:24 Dose: 40 mg Hydrocortisone (Anusol 2.5% Hc Cream -) 1 applic TP BID [facility] Last Admin: 08/24/17 11:25 Dose: 1 applic Insulin Aspart (Novolog Vial Sliding Scale -) 1 vial SQ ACHS [facility] PRN Reason: Protocol Last Admin: 08/24/17 17:07 Dose: 4 units Meclizine HCl (Antivert -) 12.5 mg PO BID [facility] Last Admin: 08/24/17 11:24 Dose: 12.5 mg Methylprednisolone Sodium Succinate (Solu-Medrol -) 40 mg IVPUSH Q8H-IV [facility] Last Admin: 08/24/17 17:07 Dose: 40 mg Nifedipine (Procardia Xl -) 30 mg PO DAILY [facility] Last Admin: 08/24/17 11:25 Dose: 30 mg Non-Formulary Medication (Cyclosporine [Restasis]) 1 each OP BID [facility] Nystatin (Nystop Powder -) 1 applic TP BID [facility] Last Admin: 08/24/17 11:22 Dose: 1 applic Pantoprazole Sodium (Protonix -) 40 mg PO DAILY [facility] Last Admin: 08/24/17 11:25 Dose: 40 mg Rosuvastatin Calcium (Crestor -) 10 mg PO HS [facility] Last Admin: 08/23/17 21:18 Dose: 10 mg Senna (Senna -) 1 tab PO BID [facility] Last Admin: 08/24/17 11:24 Dose: 1 tab Sodium Chloride ([place] Nasal [place] -) 1 spray NS Q4H PRN PRN Reason: NASAL CONGESTION Tiotropium [place] (Spiriva -) 1 puff IH DAILY [facility] Last Admin: 08/24/17 11:20 Dose: 1 puff Valsartan (Diovan -) 160 mg PO DAILY [facility] Last Admin: 08/24/17 11:23 Dose: 160 mg - Objective Vital Signs: Vital Signs Temperature 98.8 F 08/24/17 19:16 Pulse Rate 95 H 08/24/17 19:16 Respiratory Rate 20 08/24/17 19:16 Blood Pressure 143/76 08/24/17 19:16 O2 Sat by Pulse Oximetry (%) 94 L 08/24/17 10:00 Constitutional: Yes: Well Nourished, Obese HENT: Yes: WNL Neck: Yes: WNL, Supple Cardiovascular: Yes: WNL, Regular Rate and Rhythm Respiratory: Yes: Wheezes Gastrointestinal: Yes: WNL, Normal Bowel Sounds, Soft, Abdomen, Obese Labs: CBC, BMP 08/24/17 06:58 08/24/17 06:58 INR, PTT INR 2.93 (0.82-1.09) H D 08/24/17 06:58 Problem List - Problems (1) COPD exacerbation Assessment/Plan: Cont IV solumedrol Cont nebulizers/spiriva/symbicort Code(s): J44.1 - CHRONIC OBSTRUCTIVE PULMONARY DISEASE W (ACUTE) EXACERBATION (2) HLD (hyperlipidemia) Assessment/Plan: Cont crestor Code(s): E78.5 - HYPERLIPIDEMIA, UNSPECIFIED (3) Chronic diastolic (congestive) heart failure Assessment/Plan: Cont lasix Monitor electrolytes Code(s): I50.32 - CHRONIC DIASTOLIC (CONGESTIVE) HEART FAILURE (4) Hypertension Assessment/Plan: BP stable Cont procardia/diovan Code(s): I10 - ESSENTIAL (PRIMARY) HYPERTENSION (5) History of pulmonary embolism Assessment/Plan: PT/inr in therapeutic range Coumadin restarted Code(s): Z86.711 - PERSONAL HISTORY OF PULMONARY EMBOLISM (6) DVT (deep venous thrombosis) Code(s): I82.409 - ACUTE EMBOLISM AND THOMBOS UNSP DEEP VN UNSP LOWER EXTREMITY (7) Hemorrhoid Code(s): K64.9 - UNSPECIFIED HEMORRHOIDS (8) Coronary artery disease Code(s): I25.10 - ATHSCL HEART DISEASE OF [place] CORONARY ARTERY W/O ANG PCTRS (9) Morbid obesity Code(s): E66.01 - MORBID (SEVERE) OBESITY DUE TO EXCESS CALORIES
[2017-08-24] MEDS: ROSUVASTATIN CA 10 MG TABLET (FP) PO SCH (22:01)
[2017-08-24] MEDS: FERROUS SO4 325 MG TABLET (FP) PO SCH (22:01)
[2017-08-25] MEDS: methylPREDNISolone NA SUCC 40 MG/1 ML VIAL IVPUSH SCH ×3 (02:46→18:07)
[2017-08-25] MEDS ORDERED: PT OWN MED DRAWER 7, Y5N ONE ×5 (05:58→20:36)
[2017-08-25] MEDS: INSULIN SLIDING SCALE (NOVOLOG) 1 VIAL SQ SCH ×4 (06:20→23:14)
[2017-08-25] MEDS ORDERED: FERROUS SO4 325 MG TABLET (FP) PO SCH (08:00)
[2017-08-25 08:05] LABS: INR 2.33 (0.82-1.09); PROTHROMBIN TIME (PATIENT) 26.3 SEC (9.98-11.88)
[2017-08-25] MEDS: CHOLECALCIFEROL (VITAMIN D3) 1,000 UNIT TABLET (FP) PO SCH (09:28)
[2017-08-25] MEDS: FERROUS SO4 325 MG TABLET (FP) PO SCH ×3 (09:28→18:07)
[2017-08-25] MEDS: SENNOSIDES 8.6MG TABLET (FP) PO SCH ×2 (09:29→23:06)
[2017-08-25] MEDS: ASPIRIN 81 MG CHEWABLE TABLETS PO SCH (09:29)
[2017-08-25] MEDS: MECLIZINE HCL 12.5 MG TABLET PO SCH ×2 (09:29→23:06)
[2017-08-25] MEDS: PANTOPRAZOLE 40 MG TABLET (FP) PO SCH (09:29)
[2017-08-25] MEDS: VALSARTAN 160 MG TABLET (UD) PO SCH (09:29)
[2017-08-25] MEDS: NIFEdipine E.R. 30 MG TABLET (FP) PO SCH (09:29)
[2017-08-25] MEDS: AZITHROMYCIN 250 MG TABLET PO SCH (09:30)
[2017-08-25] MEDS: BUDESONIDE/FORMETEROL FUMARATE 160/4.5 mcg INHALER IH SCH ×2 (09:31→23:05)
[2017-08-25] MEDS: FUROSEMIDE 40 MG/4 ML INJECTABLE VIAL IVPUSH SCH (09:40)
[2017-08-25] MEDS: TIOTROPIUM BROMIDE 18 MCG/INH (DEVICE W/ 5 CAPSULES) IH SCH (09:41)
[2017-08-25] MEDS: ACETAMINOPHEN 325 MG TABLET (FP) PO PRN (09:42)
--- NOTE | 2017-08-25 11:08 | EKG ---
Test Reason : Blood Pressure : / mmHG Vent. Rate : 108 BPM Atrial Rate : 108 BPM P-R Int : 150 ms QRS Dur : 064 ms QT Int : 338 ms P-R-T Axes : 070 -08 029 degrees QTc Int : 452 ms POOR DATA QUALITY, INTERPRETATION MAY BE ADVERSELY AFFECTED SINUS TACHYCARDIA LOW VOLTAGE QRS EARLY TRANSITION IN V2,MAY BE DUE TO TECHNICAL AND/OR POSITIONAL FACTORS, TRUE POSTERIOR WALL OH CANNOT BE EXCLUDED POSSIBLE INFERIOR INFARCT (CITED ON OR BEFORE 02-MAR-2017) ABNORMAL ECG WHEN COMPARED WITH ECG OF 14-JUN-2017 15:53, CRITERIA FOR SEPTAL INFARCT ARE NO LONGER PRESENT REPEAT EKG IF CLINICALLY INDICATED Confirmed by MALIA CROWELL MD ([id number]) on 08/25/2017 11:08:11 AM Referred By: Confirmed By:MALIA CROWELL MD
--- NOTE | 2017-08-25 11:55 | PN ---
Progress Note (short form) - Note Progress Note: PULMONARY Still feels chest tightness, short of breath with cough productive of green sputum. +wheezing. No fevers or chills. Last Vital Signs Temp Pulse Resp BP Pulse Ox 99 F 88 20 148/73 98 08/25/17 07:46 08/25/17 07:46 08/25/17 07:46 08/25/17 07:46 08/24/17 21:00 Gen: mildly tachypneic with speaking Heart: RRR Lung: distant breath sounds, poor air entry, scattered wheezes Abd: soft, nontender Ext: no edema CBC, BMP 08/24/17 06:58 08/24/17 06:58 Active Medications Acetaminophen (Tylenol -) 650 mg PO TID PRN PRN Reason: PAIN Last Admin: 08/25/17 09:42 Dose: 650 mg Albuterol/Ipratropium (Duoneb -) 1 amp NEB Q6H PRN PRN Reason: SHORTNESS OF BREATH Last Admin: 08/24/17 13:39 Dose: 1 amp Aspirin (Asa -) 81 mg PO DAILY [facility] Last Admin: 08/25/17 09:29 Dose: 81 mg Azithromycin (Zithromax -) 250 mg PO DAILY [facility] Stop: 08/28/17 09:59 Last Admin: 08/25/17 09:30 Dose: 250 mg Budesonide/Formoterol Fumarate (Symbicort 160/4.5mcg -) 1 puff IH BID [facility] Last Admin: 08/25/17 09:31 Dose: 1 puff Cholecalciferol (Vitamin D3 -) 2,000 unit PO DAILY [facility] Last Admin: 08/25/17 09:28 Dose: 2,000 unit Ferrous Sulfate (Feosol -) 325 mg PO TIDCM [facility] Last Admin: 08/25/17 09:28 Dose: 325 mg Furosemide (Lasix Injection -) 40 mg IVPUSH DAILY [facility] Last Admin: 08/25/17 09:40 Dose: 40 mg Hydrocortisone (Anusol 2.5% Hc Cream -) 1 applic TP BID [facility] Last Admin: 08/24/17 22:10 Dose: 1 applic Insulin Aspart (Novolog Vial Sliding Scale -) 1 vial SQ ACHS [facility] PRN Reason: Protocol Last Admin: 08/25/17 06:20 Dose: 2 units Meclizine HCl (Antivert -) 12.5 mg PO BID [facility] Last Admin: 08/25/17 09:29 Dose: 12.5 mg Methylprednisolone Sodium Succinate (Solu-Medrol -) 40 mg IVPUSH Q8H-IV [facility] Last Admin: 08/25/17 09:34 Dose: 40 mg Nifedipine (Procardia Xl -) 30 mg PO DAILY [facility] Last Admin: 08/25/17 09:29 Dose: 30 mg Non-Formulary Medication (Cyclosporine [Restasis]) 1 each OP BID [facility] Nystatin (Nystop Powder -) 1 applic TP BID [facility] Last Admin: 08/24/17 22:10 Dose: 1 applic Pantoprazole Sodium (Protonix -) 40 mg PO DAILY [facility] Last Admin: 08/25/17 09:29 Dose: 40 mg Rosuvastatin Calcium (Crestor -) 10 mg PO HS [facility] Last Admin: 08/24/17 22:01 Dose: 10 mg Senna (Senna -) 1 tab PO BID [facility] Last Admin: 08/25/17 09:29 Dose: 1 tab Sodium Chloride ([place] Nasal [place] -) 1 spray NS Q4H PRN PRN Reason: NASAL CONGESTION Tiotropium [place] (Spiriva -) 1 puff IH DAILY [facility] Last Admin: 08/25/17 09:41 Dose: 1 puff Valsartan (Diovan -) 160 mg PO DAILY [facility] Last Admin: 08/25/17 09:29 Dose: 160 mg A/P Acute on Chronic Hypoxic and Hypercapneic Respiratory Failure Acute COPD Exacerbation URI LV Diastolic Dysfunction Pulmonary HTN h/o PE Morbid Obesity HTN - continue medrol at current dose - inhaled bronchodilators standing and PRN - O2 to keep SpO2 >90% - DVT prophylaxis
[2017-08-25] MEDS: NYSTATIN POWDER 100,000 UNITS/GM - 15 GM TOPICAL POWDER TP SCH ×2 (13:41→23:06)
[2017-08-25] MEDS: HYDROCORTISONE 2.5% TOPICAL CREAM 30 GM TUBE TP SCH ×2 (13:42→23:06)
[2017-08-25] MEDS: ALBUTEROL SO4 2.5/IPRATROPIUM 0.5 INH SOL 3 ML VIAL.NEB. NEB PRN ×2 (13:57→23:17)
--- NOTE | 2017-08-25 14:57 | PN ---
Progress Note, Physician History of Present Illness: does not feel so well today overall no changes - Current Medication List Current Medications: Active Medications Acetaminophen (Tylenol -) 650 mg PO TID PRN PRN Reason: PAIN Last Admin: 08/25/17 09:42 Dose: 650 mg Albuterol/Ipratropium (Duoneb -) 1 amp NEB Q6H PRN PRN Reason: SHORTNESS OF BREATH Last Admin: 08/25/17 13:57 Dose: 1 amp Aspirin (Asa -) 81 mg PO DAILY [facility] Last Admin: 08/25/17 09:29 Dose: 81 mg Azithromycin (Zithromax -) 250 mg PO DAILY [facility] Stop: 08/28/17 09:59 Last Admin: 08/25/17 09:30 Dose: 250 mg Budesonide/Formoterol Fumarate (Symbicort 160/4.5mcg -) 1 puff IH BID [facility] Last Admin: 08/25/17 09:31 Dose: 1 puff Cholecalciferol (Vitamin D3 -) 2,000 unit PO DAILY [facility] Last Admin: 08/25/17 09:28 Dose: 2,000 unit Ferrous Sulfate (Feosol -) 325 mg PO TIDCM [facility] Last Admin: 08/25/17 13:41 Dose: 325 mg Furosemide (Lasix Injection -) 40 mg IVPUSH DAILY [facility] Last Admin: 08/25/17 09:40 Dose: 40 mg Hydrocortisone (Anusol 2.5% Hc Cream -) 1 applic TP BID [facility] Last Admin: 08/25/17 13:42 Dose: 1 applic Insulin Aspart (Novolog Vial Sliding Scale -) 1 vial SQ ACHS [facility] PRN Reason: Protocol Last Admin: 08/25/17 11:59 Dose: 4 units Meclizine HCl (Antivert -) 12.5 mg PO BID [facility] Last Admin: 08/25/17 09:29 Dose: 12.5 mg Methylprednisolone Sodium Succinate (Solu-Medrol -) 40 mg IVPUSH Q8H-IV [facility] Last Admin: 08/25/17 09:34 Dose: 40 mg Nifedipine (Procardia Xl -) 30 mg PO DAILY [facility] Last Admin: 08/25/17 09:29 Dose: 30 mg Non-Formulary Medication (Cyclosporine [Restasis]) 1 each OP BID [facility] Nystatin (Nystop Powder -) 1 applic TP BID [facility] Last Admin: 08/25/17 13:41 Dose: 1 applic Pantoprazole Sodium (Protonix -) 40 mg PO DAILY [facility] Last Admin: 08/25/17 09:29 Dose: 40 mg Rosuvastatin Calcium (Crestor -) 10 mg PO HS [facility] Last Admin: 08/24/17 22:01 Dose: 10 mg Senna (Senna -) 1 tab PO BID [facility] Last Admin: 08/25/17 09:29 Dose: 1 tab Sodium Chloride ([place] Nasal [place] -) 1 spray NS Q4H PRN PRN Reason: NASAL CONGESTION Tiotropium [place] (Spiriva -) 1 puff IH DAILY [facility] Last Admin: 08/25/17 09:41 Dose: 1 puff Valsartan (Diovan -) 160 mg PO DAILY [facility] Last Admin: 08/25/17 09:29 Dose: 160 mg - Objective Vital Signs: Vital Signs Temperature 99 F 08/25/17 07:46 Pulse Rate 96 H 08/25/17 13:57 Respiratory Rate 20 08/25/17 07:46 Blood Pressure 148/73 08/25/17 07:46 O2 Sat by Pulse Oximetry (%) 99 08/25/17 13:57 Constitutional: Yes: No Distress, Calm, Obese Cardiovascular: Yes: S1, S2 Respiratory: Yes: Regular, Poor Air Entry, Rhonchi Gastrointestinal: Yes: Normal Bowel Sounds, Soft Musculoskeletal: Yes: WNL Extremities: Yes: WNL Neurological: Yes: Alert, Oriented Psychiatric: Yes: Alert, Oriented Labs: CBC, BMP 08/24/17 06:58 08/24/17 06:58 INR, PTT INR 2.33 (0.82-1.09) H 08/25/17 06:40 Assessment/Plan Problem List - Problems (1) SOB (shortness of breath) Code(s): R06.02 - SHORTNESS OF BREATH (2) Acute on chronic respiratory failure with hypoxia and hypercapnia Code(s): J96.21 - ACUTE AND CHRONIC RESPIRATORY FAILURE WITH HYPOXIA J96.22 - ACUTE AND CHRONIC RESPIRATORY FAILURE WITH HYPERCAPNIA (3) Anemia Code(s): D64.9 - ANEMIA, UNSPECIFIED (4) CHF (congestive heart failure) Code(s): I50.9 - HEART FAILURE, UNSPECIFIED (5) COPD exacerbation Code(s): J44.1 - CHRONIC OBSTRUCTIVE PULMONARY DISEASE W (ACUTE) EXACERBATION (6) Chronic diastolic (congestive) heart failure Code(s): I50.32 - CHRONIC DIASTOLIC (CONGESTIVE) HEART FAILURE (7) Coronary artery disease Code(s): I25.10 - ATHSCL HEART DISEASE OF [place] CORONARY ARTERY W/O ANG PCTRS (8) History of pulmonary embolism Code(s): Z86.711 - PERSONAL HISTORY OF PULMONARY EMBOLISM (9) Morbid obesity Code(s): E66.01 - MORBID (SEVERE) OBESITY DUE TO EXCESS CALORIES (10) Pulmonary hypertension Code(s): I27.2 - OTHER SECONDARY PULMONARY HYPERTENSION * DO NOT USE * plan after looing at the picture and the story i think this is probably cop breaker exacerbation plan continue current mgmt cx result noted incentive schuyler rest as per primary team physio
[2017-08-25] MEDS ORDERED: INSULIN (NOVOLOG) ASPART 100 UNITS/ML 10ML VIAL ONE (18:06)
--- NOTE | 2017-08-25 20:26 | PN ---
Progress Note, Physician History of Present Illness: No new complaints - Current Medication List Current Medications: Active Medications Acetaminophen (Tylenol -) 650 mg PO TID PRN PRN Reason: PAIN Last Admin: 08/25/17 09:42 Dose: 650 mg Albuterol/Ipratropium (Duoneb -) 1 amp NEB Q6H PRN PRN Reason: SHORTNESS OF BREATH Last Admin: 08/25/17 13:57 Dose: 1 amp Aspirin (Asa -) 81 mg PO DAILY [facility] Last Admin: 08/25/17 09:29 Dose: 81 mg Azithromycin (Zithromax -) 250 mg PO DAILY [facility] Stop: 08/28/17 09:59 Last Admin: 08/25/17 09:30 Dose: 250 mg Budesonide/Formoterol Fumarate (Symbicort 160/4.5mcg -) 1 puff IH BID [facility] Last Admin: 08/25/17 09:31 Dose: 1 puff Cholecalciferol (Vitamin D3 -) 2,000 unit PO DAILY [facility] Last Admin: 08/25/17 09:28 Dose: 2,000 unit Ferrous Sulfate (Feosol -) 325 mg PO TIDCM [facility] Last Admin: 08/25/17 18:07 Dose: 325 mg Furosemide (Lasix Injection -) 40 mg IVPUSH DAILY [facility] Last Admin: 08/25/17 09:40 Dose: 40 mg Hydrocortisone (Anusol 2.5% Hc Cream -) 1 applic TP BID [facility] Last Admin: 08/25/17 13:42 Dose: 1 applic Insulin Aspart (Novolog Vial Sliding Scale -) 1 vial SQ ACHS [facility] PRN Reason: Protocol Last Admin: 08/25/17 18:07 Dose: 6 units Meclizine HCl (Antivert -) 12.5 mg PO BID [facility] Last Admin: 08/25/17 09:29 Dose: 12.5 mg Methylprednisolone Sodium Succinate (Solu-Medrol -) 40 mg IVPUSH Q8H-IV [facility] Last Admin: 08/25/17 18:07 Dose: 40 mg Nifedipine (Procardia Xl -) 30 mg PO DAILY [facility] Last Admin: 08/25/17 09:29 Dose: 30 mg Non-Formulary Medication (Cyclosporine [Restasis]) 1 each OP BID [facility] Nystatin (Nystop Powder -) 1 applic TP BID [facility] Last Admin: 08/25/17 13:41 Dose: 1 applic Pantoprazole Sodium (Protonix -) 40 mg PO DAILY [facility] Last Admin: 08/25/17 09:29 Dose: 40 mg Rosuvastatin Calcium (Crestor -) 10 mg PO HS [facility] Last Admin: 08/24/17 22:01 Dose: 10 mg Senna (Senna -) 1 tab PO BID [facility] Last Admin: 08/25/17 09:29 Dose: 1 tab Sodium Chloride ([place]al [place] -) 1 spray NS Q4H PRN PRN Reason: NASAL CONGESTION Tiotropium [place] (Spiriva -) 1 puff IH DAILY [facility] Last Admin: 08/25/17 09:41 Dose: 1 puff Valsartan (Diovan -) 160 mg PO DAILY [facility] Last Admin: 08/25/17 09:29 Dose: 160 mg Warfarin Sodium (Coumadin -) 3 mg PO DAILY@1800 [facility] - Objective Vital Signs: Vital Signs Temperature 99.1 F 08/25/17 19:00 Pulse Rate 92 H 08/25/17 19:00 Respiratory Rate 20 08/25/17 19:00 Blood Pressure 133/82 08/25/17 19:00 O2 Sat by Pulse Oximetry (%) 96 08/25/17 18:47 Constitutional: Yes: Well Nourished, Obese HENT: Yes: WNL Neck: Yes: WNL, Supple Cardiovascular: Yes: WNL, Regular Rate and Rhythm Respiratory: Yes: Wheezes Gastrointestinal: Yes: WNL, Normal Bowel Sounds, Soft, Abdomen, Obese Labs: CBC, BMP 08/24/17 06:58 08/24/17 06:58 INR, PTT INR 2.33 (0.82-1.09) H 08/25/17 06:40 Problem List - Problems (1) COPD exacerbation Assessment/Plan: Cont IV solumedrol Cont nebulizers/spiriva/symbicort Code(s): J44.1 - CHRONIC OBSTRUCTIVE PULMONARY DISEASE W (ACUTE) EXACERBATION (2) HLD (hyperlipidemia) Assessment/Plan: Cont crestor Code(s): E78.5 - HYPERLIPIDEMIA, UNSPECIFIED (3) Chronic diastolic (congestive) heart failure Assessment/Plan: Cont lasix Monitor electrolytes Code(s): I50.32 - CHRONIC DIASTOLIC (CONGESTIVE) HEART FAILURE (4) Hypertension Assessment/Plan: BP stable Cont procardia/diovan Code(s): I10 - ESSENTIAL (PRIMARY) HYPERTENSION (5) History of pulmonary embolism Code(s): Z86.711 - PERSONAL HISTORY OF PULMONARY EMBOLISM (6) DVT (deep venous thrombosis) Code(s): I82.409 - ACUTE EMBOLISM AND THOMBOS UNSP DEEP VN UNSP LOWER EXTREMITY (7) Hemorrhoid Code(s): K64.9 - UNSPECIFIED HEMORRHOIDS (8) Coronary artery disease Code(s): I25.10 - ATHSCL HEART DISEASE OF [place] CORONARY ARTERY W/O ANG PCTRS (9) Morbid obesity Code(s): E66.01 - MORBID (SEVERE) OBESITY DUE TO EXCESS CALORIES
[2017-08-25] MEDS: WARFARIN NA 3 MG TABLET PO SCH (23:06)
[2017-08-25] MEDS: ROSUVASTATIN CA 10 MG TABLET (FP) PO SCH (23:06)
[2017-08-26] MEDS: methylPREDNISolone NA SUCC 40 MG/1 ML VIAL IVPUSH SCH ×4 (01:36→21:22)
[2017-08-26] MEDS: ALBUTEROL SO4 2.5/IPRATROPIUM 0.5 INH SOL 3 ML VIAL.NEB. NEB PRN ×3 (06:40→23:10)
[2017-08-26] MEDS: INSULIN SLIDING SCALE (NOVOLOG) 1 VIAL SQ SCH ×4 (06:57→21:26)
[2017-08-26] MEDS ORDERED: PT OWN MED DRAWER 7, Y5N ONE ×2 (07:10→08:24)
[2017-08-26 08:27] LABS: INR 2.55 (0.82-1.09); PROTHROMBIN TIME (PATIENT) 28.8 SEC (9.98-11.88)
[2017-08-26] MEDS: FERROUS SO4 325 MG TABLET (FP) PO SCH ×3 (08:55→17:59)
[2017-08-26] MEDS: ASPIRIN 81 MG CHEWABLE TABLETS PO SCH (09:02)
[2017-08-26] MEDS: FUROSEMIDE 40 MG/4 ML INJECTABLE VIAL IVPUSH SCH (09:02)
[2017-08-26] MEDS: PANTOPRAZOLE 40 MG TABLET (FP) PO SCH (09:02)
[2017-08-26] MEDS: AZITHROMYCIN 250 MG TABLET PO SCH (09:02)
[2017-08-26] MEDS: VALSARTAN 160 MG TABLET (UD) PO SCH (09:02)
[2017-08-26] MEDS: NIFEdipine E.R. 30 MG TABLET (FP) PO SCH (09:02)
[2017-08-26] MEDS: MECLIZINE HCL 12.5 MG TABLET PO SCH ×2 (09:02→21:22)
[2017-08-26] MEDS: SENNOSIDES 8.6MG TABLET (FP) PO SCH ×2 (09:02→21:21)
[2017-08-26] MEDS: TIOTROPIUM BROMIDE 18 MCG/INH (DEVICE W/ 5 CAPSULES) IH SCH (09:03)
[2017-08-26] MEDS: BUDESONIDE/FORMETEROL FUMARATE 160/4.5 mcg INHALER IH SCH ×2 (09:03→21:21)
[2017-08-26] MEDS: HYDROCORTISONE 2.5% TOPICAL CREAM 30 GM TUBE TP SCH ×2 (09:04→21:22)
[2017-08-26] MEDS: CHOLECALCIFEROL (VITAMIN D3) 1,000 UNIT TABLET (FP) PO SCH (09:04)
[2017-08-26] MEDS: NYSTATIN POWDER 100,000 UNITS/GM - 15 GM TOPICAL POWDER TP SCH ×2 (09:04→21:23)
--- NOTE | 2017-08-26 09:21 | PN ---
Progress Note, Physician Chief Complaint: feels more SOB w/ cough and increased wheezing today - Current Medication List Current Medications: Active Medications Acetaminophen (Tylenol -) 650 mg PO TID PRN PRN Reason: PAIN Last Admin: 08/25/17 09:42 Dose: 650 mg Albuterol/Ipratropium (Duoneb -) 1 amp NEB Q6H PRN PRN Reason: SHORTNESS OF BREATH Last Admin: 08/26/17 06:40 Dose: 1 amp Aspirin (Asa -) 81 mg PO DAILY [facility] Last Admin: 08/26/17 09:02 Dose: 81 mg Azithromycin (Zithromax -) 250 mg PO DAILY [facility] Stop: 08/28/17 09:59 Last Admin: 08/26/17 09:02 Dose: 250 mg Budesonide/Formoterol Fumarate (Symbicort 160/4.5mcg -) 1 puff IH BID [facility] Last Admin: 08/26/17 09:03 Dose: 1 puff Cholecalciferol (Vitamin D3 -) 2,000 unit PO DAILY [facility] Last Admin: 08/26/17 09:04 Dose: 2,000 unit Ferrous Sulfate (Feosol -) 325 mg PO TIDCM [facility] Last Admin: 08/26/17 08:55 Dose: 325 mg Furosemide (Lasix Injection -) 40 mg IVPUSH DAILY [facility] Last Admin: 08/26/17 09:02 Dose: 40 mg Hydrocortisone (Anusol 2.5% Hc Cream -) 1 applic TP BID [facility] Last Admin: 08/26/17 09:04 Dose: 1 applic Insulin Aspart (Novolog Vial Sliding Scale -) 1 vial SQ ACHS [facility] PRN Reason: Protocol Last Admin: 08/26/17 06:57 Dose: 4 units Meclizine HCl (Antivert -) 12.5 mg PO BID [facility] Last Admin: 08/26/17 09:02 Dose: 12.5 mg Methylprednisolone Sodium Succinate (Solu-Medrol -) 40 mg IVPUSH Q8H-IV [facility] Last Admin: 08/26/17 09:05 Dose: 40 mg Nifedipine (Procardia Xl -) 30 mg PO DAILY [facility] Last Admin: 08/26/17 09:02 Dose: 30 mg Non-Formulary Medication (Cyclosporine [Restasis]) 1 each OP BID [facility] Nystatin (Nystop Powder -) 1 applic TP BID [facility] Last Admin: 08/26/17 09:04 Dose: 1 applic Pantoprazole Sodium (Protonix -) 40 mg PO DAILY [facility] Last Admin: 08/26/17 09:02 Dose: 40 mg Rosuvastatin Calcium (Crestor -) 10 mg PO HS [facility] Last Admin: 08/25/17 23:06 Dose: 10 mg Senna (Senna -) 1 tab PO BID [facility] Last Admin: 08/26/17 09:02 Dose: 1 tab Sodium Chloride ([place] Nasal [place] -) 1 spray NS Q4H PRN PRN Reason: NASAL CONGESTION Tiotropium [place] (Spiriva -) 1 puff IH DAILY [facility] Last Admin: 08/26/17 09:03 Dose: 1 puff Valsartan (Diovan -) 160 mg PO DAILY [facility] Last Admin: 08/26/17 09:02 Dose: 160 mg Warfarin Sodium (Coumadin -) 3 mg PO DAILY@1800 [facility] Last Admin: 08/25/17 23:06 Dose: 3 mg - Objective Vital Signs: Vital Signs Temperature 98.3 F 08/26/17 06:00 Pulse Rate 94 H 08/26/17 06:00 Respiratory Rate 20 08/26/17 06:00 Blood Pressure 129/70 08/26/17 06:00 O2 Sat by Pulse Oximetry (%) 98 08/25/17 21:00 Constitutional: Yes: No Distress Cardiovascular: Yes: Regular Rate and Rhythm Respiratory: Yes: Other (b/l expiratory wheezing) Gastrointestinal: Yes: Soft, Abdomen, Obese Edema: No Neurological: Yes: Alert, Oriented Labs: CBC, BMP 08/24/17 06:58 08/24/17 06:58 INR, PTT INR 2.55 (0.82-1.09) H 08/26/17 06:15 Microbiology 08/20/17 16:46 Blood - Peripheral Venous Blood Culture - Final NO GROWTH AFTER 5 DAYS INCUBATION 08/20/17 16:46 Blood - Peripheral Venous Blood Culture - Preliminary NO GROWTH OBTAINED AFTER 96 HOURS, INCUBATION TO CONTINUE FOR 1 DAYS. Laboratory Tests 08/24/17 08/26/17 06:58 06:15 WBC 17.5 H Hgb 7.9 L Plt Count 283 INR 2.55 H Assessment/Plan AECOPD Acute on chronic diastolic CHF, mild exacerbation History of PE on coumadin REC: AE COPD possibly triggered by recent Influenza Vaccine. Continue nebs, supp. O2 and steroid taper as per Pulmonary. INR now therapeutic, maintain b/ 2-3. BP controlled on current regimen.
--- NOTE | 2017-08-26 12:12 | PN ---
Progress Note, Physician History of Present Illness: PULMONARY ALERT,STILL DYSPNEIC WITH ANY EXERTION,+ COUGH,CONGESTION,-CP. SLEEP SCREEN - [facility]ONNA - Current Medication List Current Medications: Active Medications Acetaminophen (Tylenol -) 650 mg PO TID PRN PRN Reason: PAIN Last Admin: 08/25/17 09:42 Dose: 650 mg Albuterol/Ipratropium (Duoneb -) 1 amp NEB Q6H PRN PRN Reason: SHORTNESS OF BREATH Last Admin: 08/26/17 06:40 Dose: 1 amp Aspirin (Asa -) 81 mg PO DAILY [facility] Last Admin: 08/26/17 09:02 Dose: 81 mg Azithromycin (Zithromax -) 250 mg PO DAILY [facility] Stop: 08/28/17 09:59 Last Admin: 08/26/17 09:02 Dose: 250 mg Budesonide/Formoterol Fumarate (Symbicort 160/4.5mcg -) 1 puff IH BID [facility] Last Admin: 08/26/17 09:03 Dose: 1 puff Cholecalciferol (Vitamin D3 -) 2,000 unit PO DAILY [facility] Last Admin: 08/26/17 09:04 Dose: 2,000 unit Ferrous Sulfate (Feosol -) 325 mg PO TIDCM [facility] Last Admin: 08/26/17 08:55 Dose: 325 mg Furosemide (Lasix Injection -) 40 mg IVPUSH DAILY [facility] Last Admin: 08/26/17 09:02 Dose: 40 mg Hydrocortisone (Anusol 2.5% Hc Cream -) 1 applic TP BID [facility] Last Admin: 08/26/17 09:04 Dose: 1 applic Insulin Aspart (Novolog Vial Sliding Scale -) 1 vial SQ ACHS [facility] PRN Reason: Protocol Last Admin: 08/26/17 06:57 Dose: 4 units Meclizine HCl (Antivert -) 12.5 mg PO BID [facility] Last Admin: 08/26/17 09:02 Dose: 12.5 mg Methylprednisolone Sodium Succinate (Solu-Medrol -) 40 mg IVPUSH Q8H-IV [facility] Last Admin: 08/26/17 09:05 Dose: 40 mg Nifedipine (Procardia Xl -) 30 mg PO DAILY [facility] Last Admin: 08/26/17 09:02 Dose: 30 mg Non-Formulary Medication (Cyclosporine [Restasis]) 1 each OP BID [facility] Nystatin (Nystop Powder -) 1 applic TP BID [facility] Last Admin: 08/26/17 09:04 Dose: 1 applic Pantoprazole Sodium (Protonix -) 40 mg PO DAILY [facility] Last Admin: 08/26/17 09:02 Dose: 40 mg Rosuvastatin Calcium (Crestor -) 10 mg PO HS [facility] Last Admin: 08/25/17 23:06 Dose: 10 mg Senna (Senna -) 1 tab PO BID [facility] Last Admin: 08/26/17 09:02 Dose: 1 tab Sodium Chloride ([place] Nasal [place] -) 1 spray NS Q4H PRN PRN Reason: NASAL CONGESTION Tiotropium [place] (Spiriva -) 1 puff IH DAILY [facility] Last Admin: 08/26/17 09:03 Dose: 1 puff Valsartan (Diovan -) 160 mg PO DAILY [facility] Last Admin: 08/26/17 09:02 Dose: 160 mg Warfarin Sodium (Coumadin -) 3 mg PO DAILY@1800 [facility] Last Admin: 08/25/17 23:06 Dose: 3 mg - Objective Vital Signs: Vital Signs Temperature 98.3 F 08/26/17 06:00 Pulse Rate 100 H 08/26/17 10:00 Respiratory Rate 22 08/26/17 10:00 Blood Pressure 146/70 08/26/17 10:00 O2 Sat by Pulse Oximetry (%) 97 08/26/17 09:00 Constitutional: Yes: Calm, Obese Eyes: Yes: WNL HENT: Yes: WNL Neck: Yes: WNL Cardiovascular: Yes: Regular Rate and Rhythm, S1, S2 Respiratory: Yes: Wheezes (SCATTERED LUPE WHEEZES) Gastrointestinal: Yes: Normal Bowel Sounds, Soft Extremities: Yes: WNL Edema: No Labs: CBC, BMP 08/24/17 06:58 08/24/17 06:58 INR, PTT INR 2.55 (0.82-1.09) H 08/26/17 06:15 Problem List - Problems (1) SOB (shortness of breath) Code(s): R06.02 - SHORTNESS OF BREATH (2) Acute on chronic respiratory failure with hypoxia and hypercapnia Code(s): J96.21 - ACUTE AND CHRONIC RESPIRATORY FAILURE WITH HYPOXIA J96.22 - ACUTE AND CHRONIC RESPIRATORY FAILURE WITH HYPERCAPNIA (3) Anemia Code(s): D64.9 - ANEMIA, UNSPECIFIED (4) CHF (congestive heart failure) Code(s): I50.9 - HEART FAILURE, UNSPECIFIED (5) COPD exacerbation Code(s): J44.1 - CHRONIC OBSTRUCTIVE PULMONARY DISEASE W (ACUTE) EXACERBATION (6) Chronic diastolic (congestive) heart failure Code(s): I50.32 - CHRONIC DIASTOLIC (CONGESTIVE) HEART FAILURE (7) Coronary artery disease Code(s): I25.10 - ATHSCL HEART DISEASE OF [place] CORONARY ARTERY W/O ANG PCTRS (8) History of pulmonary embolism Code(s): Z86.711 - PERSONAL HISTORY OF PULMONARY EMBOLISM (9) Morbid obesity Code(s): E66.01 - MORBID (SEVERE) OBESITY DUE TO EXCESS CALORIES (10) Pulmonary hypertension Code(s): I27.2 - OTHER SECONDARY PULMONARY HYPERTENSION * DO NOT USE * Assessment/Plan IMP ACUTE ON CHRONIC HYPOXEMIC/HYPERCAPNEIC RESPIRATORY FAILURE END STAGE COPD O2 DEPENDENT WITH ACUTE EXACERBATION URI DIASTOLIC HF PULMONARY HTN H/O RECURRENT PULMONARY EMBOLI HTN MORBID OBESITY PLAN IV STEROIDS INCREASE TO 40Q6 SUPPLEMENTAL O2 INHALED BRONCHODILATORS NIPPV NEEDED DIURETICS DR FOX Problem List - Problems (1) SOB (shortness of breath) Code(s): R06.02 - SHORTNESS OF BREATH (2) Acute on chronic respiratory failure with hypoxia and hypercapnia Code(s): J96.21 - ACUTE AND CHRONIC RESPIRATORY FAILURE WITH HYPOXIA J96.22 - ACUTE AND CHRONIC RESPIRATORY FAILURE WITH HYPERCAPNIA (3) Anemia Code(s): D64.9 - ANEMIA, UNSPECIFIED (4) CHF (congestive heart failure) Code(s): I50.9 - HEART FAILURE, UNSPECIFIED (5) COPD exacerbation Code(s): J44.1 - CHRONIC OBSTRUCTIVE PULMONARY DISEASE W (ACUTE) EXACERBATION (6) Chronic diastolic (congestive) heart failure Code(s): I50.32 - CHRONIC DIASTOLIC (CONGESTIVE) HEART FAILURE (7) Coronary artery disease Code(s): I25.10 - ATHSCL HEART DISEASE OF [place] CORONARY ARTERY W/O ANG PCTRS (8) History of pulmonary embolism Code(s): Z86.711 - PERSONAL HISTORY OF PULMONARY EMBOLISM (9) Morbid obesity Code(s): E66.01 - MORBID (SEVERE) OBESITY DUE TO EXCESS CALORIES (10) Pulmonary hypertension Code(s): I27.2 - OTHER SECONDARY PULMONARY HYPERTENSION * DO NOT USE *
--- NOTE | 2017-08-26 13:14 | PN ---
Progress Note, Physician History of Present Illness: patient states she is ok walked with physio - Current Medication List Current Medications: Active Medications Acetaminophen (Tylenol -) 650 mg PO TID PRN PRN Reason: PAIN Last Admin: 08/25/17 09:42 Dose: 650 mg Albuterol/Ipratropium (Duoneb -) 1 amp NEB Q6H PRN PRN Reason: SHORTNESS OF BREATH Last Admin: 08/26/17 06:40 Dose: 1 amp Aspirin (Asa -) 81 mg PO DAILY [facility] Last Admin: 08/26/17 09:02 Dose: 81 mg Azithromycin (Zithromax -) 250 mg PO DAILY [facility] Stop: 08/28/17 09:59 Last Admin: 08/26/17 09:02 Dose: 250 mg Budesonide/Formoterol Fumarate (Symbicort 160/4.5mcg -) 1 puff IH BID [facility] Last Admin: 08/26/17 09:03 Dose: 1 puff Cholecalciferol (Vitamin D3 -) 2,000 unit PO DAILY [facility] Last Admin: 08/26/17 09:04 Dose: 2,000 unit Ferrous Sulfate (Feosol -) 325 mg PO TIDCM [facility] Last Admin: 08/26/17 12:39 Dose: 325 mg Furosemide (Lasix Injection -) 40 mg IVPUSH DAILY [facility] Last Admin: 08/26/17 09:02 Dose: 40 mg Hydrocortisone (Anusol 2.5% Hc Cream -) 1 applic TP BID [facility] Last Admin: 08/26/17 09:04 Dose: 1 applic Insulin Aspart (Novolog Vial Sliding Scale -) 1 vial SQ ACHS [facility] PRN Reason: Protocol Last Admin: 08/26/17 12:39 Dose: 2 units Meclizine HCl (Antivert -) 12.5 mg PO BID [facility] Last Admin: 08/26/17 09:02 Dose: 12.5 mg Methylprednisolone Sodium Succinate (Solu-Medrol -) 40 mg IVPUSH Q6H-IV [facility] Nifedipine (Procardia Xl -) 30 mg PO DAILY [facility] Last Admin: 08/26/17 09:02 Dose: 30 mg Non-Formulary Medication (Cyclosporine [Restasis]) 1 each OP BID [facility] Nystatin (Nystop Powder -) 1 applic TP BID [facility] Last Admin: 08/26/17 09:04 Dose: 1 applic Pantoprazole Sodium (Protonix -) 40 mg PO DAILY [facility] Last Admin: 08/26/17 09:02 Dose: 40 mg Rosuvastatin Calcium (Crestor -) 10 mg PO HS [facility] Last Admin: 08/25/17 23:06 Dose: 10 mg Senna (Senna -) 1 tab PO BID [facility] Last Admin: 08/26/17 09:02 Dose: 1 tab Sodium Chloride ([place]al [place] -) 1 spray NS Q4H PRN PRN Reason: NASAL CONGESTION Tiotropium [place] (Spiriva -) 1 puff IH DAILY [facility] Last Admin: 08/26/17 09:03 Dose: 1 puff Valsartan (Diovan -) 160 mg PO DAILY [facility] Last Admin: 08/26/17 09:02 Dose: 160 mg Warfarin Sodium (Coumadin -) 3 mg PO DAILY@1800 [facility] Last Admin: 08/25/17 23:06 Dose: 3 mg - Objective Vital Signs: Vital Signs Temperature 98.3 F 08/26/17 06:00 Pulse Rate 100 H 08/26/17 10:00 Respiratory Rate 22 08/26/17 10:00 Blood Pressure 146/70 08/26/17 10:00 O2 Sat by Pulse Oximetry (%) 97 08/26/17 09:00 Constitutional: Yes: No Distress, Calm Cardiovascular: Yes: Regular Rate and Rhythm Respiratory: Yes: Regular, CTA Bilaterally Gastrointestinal: Yes: Normal Bowel Sounds, Soft Musculoskeletal: Yes: WNL Extremities: Yes: WNL Neurological: Yes: Alert, Oriented Psychiatric: Yes: Alert, Oriented Labs: CBC, BMP 08/24/17 06:58 08/24/17 06:58 INR, PTT INR 2.55 (0.82-1.09) H 08/26/17 06:15 Assessment/Plan Problem List - Problems (1) SOB (shortness of breath) Code(s): R06.02 - SHORTNESS OF BREATH (2) Acute on chronic respiratory failure with hypoxia and hypercapnia Code(s): J96.21 - ACUTE AND CHRONIC RESPIRATORY FAILURE WITH HYPOXIA J96.22 - ACUTE AND CHRONIC RESPIRATORY FAILURE WITH HYPERCAPNIA (3) Anemia Code(s): D64.9 - ANEMIA, UNSPECIFIED (4) CHF (congestive heart failure) Code(s): I50.9 - HEART FAILURE, UNSPECIFIED (5) COPD exacerbation Code(s): J44.1 - CHRONIC OBSTRUCTIVE PULMONARY DISEASE W (ACUTE) EXACERBATION (6) Chronic diastolic (congestive) heart failure Code(s): I50.32 - CHRONIC DIASTOLIC (CONGESTIVE) HEART FAILURE (7) Coronary artery disease Code(s): I25.10 - ATHSCL HEART DISEASE OF [place] CORONARY ARTERY W/O ANG PCTRS (8) History of pulmonary embolism Code(s): Z86.711 - PERSONAL HISTORY OF PULMONARY EMBOLISM (9) Morbid obesity Code(s): E66.01 - MORBID (SEVERE) OBESITY DUE TO EXCESS CALORIES (10) Pulmonary hypertension Code(s): I27.2 - OTHER SECONDARY PULMONARY HYPERTENSION * DO NOT USE * plan after looing at the picture and the story i think 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
[2017-08-26] MEDS: WARFARIN NA 3 MG TABLET PO SCH (17:59)
--- NOTE | 2017-08-26 18:43 | PN ---
Physical Exam: SUBJECTIVE: Patient seen and examined oob to chair. States four days ago she heard a loud pop in her left ear and since then she believes she has diminished hearing in that ear. OBJECTIVE: Vital Signs Period Temp Pulse Resp BP Sys/Nielsen Pulse Ox Last 24 Hr 98.1 F-99.3 F 92-108 20-22 115-146/69-82 96-98 GENERAL: The patient is awake, alert, and fully oriented, in no acute distress. LUNGS: Breath sounds diminished HEART: Regular rate and rhythm, S1, S2 without murmur, rub or gallop. ABDOMEN: Soft, nontender, obese EXTREMITIES: 2+ pulses, warm, well-perfused, 1+edema bilaterally NEUROLOGICAL: Cranial nerves II through XII grossly intact. Normal speech, gait not observed. CBCD WBC 17.5 K/mm3 (4.0-10.0) H 08/24/17 06:58 RBC 3.52 M/mm3 (3.60-5.2) L 08/24/17 06:58 Hgb 7.9 GM/dL (10.7-15.3) L 08/24/17 06:58 Hct 26.9 % (32.4-45.2) L 08/24/17 06:58 MCV 76.3 fl (80-96) L 08/24/17 06:58 MCHC 29.3 g/dl (32.0-36.0) L 08/24/17 06:58 RDW 15.7 % (11.6-15.6) H 08/24/17 06:58 Plt Count 283 K/MM3 (134-434) 08/24/17 06:58 MPV 9.8 fl (7.5-11.1) D 08/24/17 06:58 CMP Sodium 143 mmol/L (136-145) 08/24/17 06:58 Potassium 4.6 mmol/L (3.5-5.1) 08/24/17 06:58 Chloride 99 mmol/L (98-107) 08/24/17 06:58 Carbon Dioxide 37 mmol/L (21-32) H 08/24/17 06:58 Anion Gap 7 (8-16) L 08/24/17 06:58 BUN 34 mg/dL (7-18) H D 08/24/17 06:58 Creatinine 1.3 mg/dL (0.55-1.02) H 08/24/17 06:58 Creat Clearance w eGFR 40.61 (>60) 08/24/17 06:58 Calcium 8.3 mg/dL (8.5-10.1) L 08/24/17 06:58 Total Bilirubin 0.4 mg/dL (0.2-1.0) D 08/24/17 06:58 AST 10 U/L (15-37) L D 08/24/17 06:58 ALT 24 U/L (12-78) 08/24/17 06:58 Alkaline Phosphatase 45 U/L (45-117) 08/24/17 06:58 Total Protein 6.1 g/dl (6.4-8.2) L 08/24/17 06:58 Albumin 3.5 g/dl (3.4-5.0) 08/24/17 06:58 Laboratory Results - last 24 hr 08/25/17 08/26/17 08/26/17 23:13 06:15 06:56 PT with INR 28.80 H INR 2.55 H POC Glucometer 254 209 08/26/17 08/26/17 12:16 17:33 PT with INR INR POC Glucometer 184 206 Active Medications Generic Name Dose Route Start Last Admin Trade Name Lesa PRN Reason Stop Dose Admin Acetaminophen 650 mg 08/21/17 03:33 08/25/17 09:42 Tylenol - PO 650 mg TID PRN Administration PAIN Albuterol/Ipratropium 1 amp 08/21/17 03:39 08/26/17 11:30 Duoneb - NEB 1 amp Q6H PRN Administration SHORTNESS OF BREATH Aspirin 81 mg 08/21/17 10:00 08/26/17 09:02 Asa - PO 81 mg DAILY [facility] Administration Azithromycin 250 mg 08/24/17 10:00 08/26/17 09:02 Zithromax - PO 08/28/17 09:59 250 mg DAILY [facility] Administration Budesonide/Formoterol Fumarate 1 puff 08/21/17 10:00 08/26/17 09:03 Symbicort 160/4.5mcg - IH 1 puff BID [facility] Administration Cholecalciferol 2,000 unit 08/21/17 10:00 11/01/17 09:04 Vitamin D3 - PO 2,000 unit DAILY [facility] Administration Ferrous Sulfate 325 mg 08/24/17 20:00 08/26/17 17:59 Feosol - PO 325 mg TIDCM [facility] Administration Furosemide 40 mg 08/21/17 10:00 08/26/17 09:02 Lasix Injection - IVPUSH 40 mg DAILY [facility] Administration Hydrocortisone 1 applic 08/22/17 22:00 08/26/17 09:04 Anusol 2.5% Hc Cream - TP 1 applic BID [facility] Administration Insulin Aspart 1 vial 08/21/17 07:00 08/26/17 17:52 Novolog Vial Sliding Scale - SQ 4 units ACHS [facility] Administration Protocol Meclizine HCl 12.5 mg 08/21/17 10:00 08/26/17 09:02 Antivert - PO 12.5 mg BID [facility] Administration Methylprednisolone Sodium Succinate 40 mg 08/26/17 15:00 08/26/17 14:59 Solu-Medrol - IVPUSH 40 mg Q6H-IV [facility] Administration Nifedipine 30 mg 08/21/17 10:00 08/26/17 09:02 Procardia Xl - PO 30 mg DAILY [facility] Administration Non-Formulary Medication 1 each 08/21/17 10:00 Cyclosporine [Restasis] OP BID [facility] Nystatin 1 applic 08/21/17 22:00 08/26/17 09:04 Nystop Powder - TP 1 applic BID [facility] Administration Nystatin 500,000 units 08/26/17 22:00 Nystatin Oral Suspension - PO TID [facility] Pantoprazole Sodium 40 mg 08/21/17 10:00 08/26/17 09:02 Protonix - PO 40 mg DAILY [facility] Administration Rosuvastatin Calcium 10 mg 08/21/17 22:00 08/25/17 23:06 Crestor - PO 10 mg HS [facility] Administration Senna 1 tab 08/23/17 22:00 08/26/17 09:02 Senna - PO 1 tab BID [facility] Administration Sodium Chloride 1 spray 08/21/17 03:33 [place] Nasal [place] - NS Q4H PRN NASAL CONGESTION Tiotropium [place] 1 puff 08/21/17 10:00 08/26/17 09:03 Spiriva - IH 1 puff DAILY [facility] Administration Valsartan 160 mg 08/21/17 10:00 08/26/17 09:02 Diovan - PO 160 mg DAILY [facility] Administration Warfarin Sodium 3 mg 08/25/17 19:30 08/26/17 17:59 Coumadin - PO 3 mg DAILY@1800 [facility] Administration ASSESSMENT/PLAN Acute on chronic hypoxemic/hypercapneic respiratory failure Acute exacerbation of end-stage COPD --IV steroids increased to 40mg q6h --continue Spiriva, Symbicort, duoneb --pulmonary following Hyperlipidemia --continue Crestor Chronic diastolic heart failure --continue Lasix IV Hypertension --BP well-controlled --continuue Procardia, Diovan H/o Pulmonary embolism h/o DVT --INR therapeutic, continue current coumadin dosing CAD --continue ASA, statin Visit type - Emergency Visit Emergency Visit: Yes ED Registration Date: 08/20/17 Care time: The patient presented to the Emergency Department on the above date and was hospitalized for further evaluation of their emergent condition. - New Patient This patient is new to me today: Yes Date on this admission: 08/26/17 - Critical Care Critical Care patient: No
[2017-08-26] MEDS: ROSUVASTATIN CA 10 MG TABLET (FP) PO SCH (21:22)
[2017-08-26] MEDS: NYSTATIN 500,000 UNITS/5 ML SUSPENSION PO SCH (21:23)
[2017-08-27] MEDS: methylPREDNISolone NA SUCC 40 MG/1 ML VIAL IVPUSH SCH ×4 (02:31→21:31)
[2017-08-27] MEDS: NYSTATIN 500,000 UNITS/5 ML SUSPENSION PO SCH ×3 (06:30→21:32)
[2017-08-27] MEDS: INSULIN SLIDING SCALE (NOVOLOG) 1 VIAL SQ SCH ×4 (06:31→21:31)
[2017-08-27] MEDS: ALBUTEROL SO4 2.5/IPRATROPIUM 0.5 INH SOL 3 ML VIAL.NEB. NEB PRN ×4 (07:15→23:12)
[2017-08-27] MEDS: FERROUS SO4 325 MG TABLET (FP) PO SCH ×3 (08:26→17:34)
[2017-08-27 08:37] LABS: MCH 21.6 pg (25.7-33.7); MCHC 28.3 g/dl (32.0-36.0); MEAN CELL VOLUME 76.4 fl (80-96); MEAN PLT VOLUME 9.8 fl (7.5-11.1); PLATELET COUNT 304 K/MM3 (134-434); RDW 15.6 % (11.6-15.6); WHITE BLOOD COUNT 24.7 K/mm3 (4.0-10.0)
[2017-08-27 09:03] LABS: INR 3.02 (0.82-1.09); PROTHROMBIN TIME (PATIENT) 34.1 SEC (9.98-11.88)
[2017-08-27 09:19] LABS: ALBUMIN 3.5 g/dl (3.4-5.0); ALK PHOS 55 U/L (45-117); ANION GAP 5 (8-16); BILIRUBIN,TOTAL 0.5 mg/dL (0.2-1.0); CALCIUM 8.6 mg/dL (8.5-10.1); CO2 39 mmol/L (21-32); CREATININE 1.3 mg/dL (0.55-1.02); GLUCOSE,RANDOM 233 mg/dL (74-106); MAGNESIUM 2.1 mg/dL (1.8-2.4); SGOT/AST 11 U/L (15-37); SGPT/ALT 28 U/L (12-78)
--- NOTE | 2017-08-27 09:20 | PN ---
Progress Note, Physician Chief Complaint: less SOB today, feels much improved - Current Medication List Current Medications: Active Medications Acetaminophen (Tylenol -) 650 mg PO TID PRN PRN Reason: PAIN Last Admin: 08/25/17 09:42 Dose: 650 mg Albuterol/Ipratropium (Duoneb -) 1 amp NEB Q6H PRN PRN Reason: SHORTNESS OF BREATH Last Admin: 08/27/17 07:15 Dose: 1 amp Aspirin (Asa -) 81 mg PO DAILY [facility] Last Admin: 08/26/17 09:02 Dose: 81 mg Azithromycin (Zithromax -) 250 mg PO DAILY [facility] Stop: 08/28/17 09:59 Last Admin: 08/26/17 09:02 Dose: 250 mg Budesonide/Formoterol Fumarate (Symbicort 160/4.5mcg -) 1 puff IH BID [facility] Last Admin: 08/26/17 21:21 Dose: 1 puff Cholecalciferol (Vitamin D3 -) 2,000 unit PO DAILY [facility] Last Admin: 08/26/17 09:04 Dose: 2,000 unit Ferrous Sulfate (Feosol -) 325 mg PO TIDCM [facility] Last Admin: 08/27/17 08:26 Dose: 325 mg Furosemide (Lasix Injection -) 40 mg IVPUSH DAILY [facility] Last Admin: 08/26/17 09:02 Dose: 40 mg Hydrocortisone (Anusol 2.5% Hc Cream -) 1 applic TP BID [facility] Last Admin: 08/26/17 21:22 Dose: 1 applic Insulin Aspart (Novolog Vial Sliding Scale -) 1 vial SQ ACHS [facility] PRN Reason: Protocol Last Admin: 08/27/17 06:31 Dose: 6 units Meclizine HCl (Antivert -) 12.5 mg PO BID [facility] Last Admin: 08/26/17 21:22 Dose: 12.5 mg Methylprednisolone Sodium Succinate (Solu-Medrol -) 40 mg IVPUSH Q6H-IV [facility] Last Admin: 08/27/17 02:31 Dose: 40 mg Nifedipine (Procardia Xl -) 30 mg PO DAILY [facility] Last Admin: 08/26/17 09:02 Dose: 30 mg Non-Formulary Medication (Cyclosporine [Restasis]) 1 each OP BID [facility] Nystatin (Nystop Powder -) 1 applic TP BID [facility] Last Admin: 08/26/17 21:23 Dose: 1 applic Nystatin (Nystatin Oral Suspension -) 500,000 units PO TID [facility] Last Admin: 08/27/17 06:30 Dose: 500,000 units Pantoprazole Sodium (Protonix -) 40 mg PO DAILY [facility] Last Admin: 08/26/17 09:02 Dose: 40 mg Rosuvastatin Calcium (Crestor -) 10 mg PO HS [facility] Last Admin: 08/26/17 21:22 Dose: 10 mg Senna (Senna -) 1 tab PO BID [facility] Last Admin: 08/26/17 21:21 Dose: 1 tab Sodium Chloride ([place] Nasal [place] -) 1 spray NS Q4H PRN PRN Reason: NASAL CONGESTION Tiotropium [place] (Spiriva -) 1 puff IH DAILY [facility] Last Admin: 08/26/17 09:03 Dose: 1 puff Valsartan (Diovan -) 160 mg PO DAILY [facility] Last Admin: 08/26/17 09:02 Dose: 160 mg Warfarin Sodium (Coumadin -) 3 mg PO DAILY@1800 [facility] Last Admin: 08/26/17 17:59 Dose: 3 mg - Objective Vital Signs: Vital Signs Temperature 98.4 F 08/27/17 06:23 Pulse Rate 101 H 08/27/17 06:23 Respiratory Rate 18 08/27/17 06:23 Blood Pressure 148/78 08/27/17 06:23 O2 Sat by Pulse Oximetry (%) 98 08/26/17 22:00 Constitutional: Yes: No Distress Cardiovascular: Yes: Regular Rate and Rhythm Respiratory: Yes: Other (decreased breath sounds b/l no wheezing) Gastrointestinal: Yes: Soft, Abdomen, Obese Edema: No Neurological: Yes: Alert, Oriented ...Motor Strength: WNL Labs: CBC, BMP 08/27/17 06:00 INR, PTT INR 2.55 (0.82-1.09) H 08/26/17 06:15 Microbiology 08/20/17 16:46 Blood - Peripheral Venous Blood Culture - Final NO GROWTH AFTER 5 DAYS INCUBATION 08/20/17 16:46 Blood - Peripheral Venous Blood Culture - Final NO GROWTH AFTER 5 DAYS INCUBATION Laboratory Tests 08/27/17 08/27/17 08/27/17 06:00 06:00 06:00 WBC 24.7 H D Hgb 7.8 L Plt Count 304 INR Pending Potassium Pending Creatinine Pending Assessment/Plan Assessment/Plan AECOPD Acute on chronic diastolic CHF, mild exacerbation History of PE on coumadin REC: AE COPD possibly triggered by recent Influenza Vaccine. Continue nebs, supp. O2 and steroid taper as per Pulmonary. INR now therapeutic, maintain b/ 2-3. BP controlled on current regimen, remains euvolemic.
[2017-08-27 09:41] LABS: ANISOCYTOSIS 1+; HYPOCHROMIA 1+; MACROCYTOSIS FEW; METAMYELOCYTE 2 % (0-2); MICROCYTOSIS FEW; PLATELET ESTIMATE ADEQUATE (NORMAL); TOTAL CELLS COUNTED 100
[2017-08-27 09:42] LABS: TEAR DROP CELLS 1+
[2017-08-27] MEDS: FUROSEMIDE 40 MG/4 ML INJECTABLE VIAL IVPUSH SCH (10:50)
[2017-08-27] MEDS ORDERED: PT OWN MED DRAWER 7, Y5N ONE ×3 (11:27→23:44)
[2017-08-27] MEDS: AZITHROMYCIN 250 MG TABLET PO SCH (11:29)
[2017-08-27] MEDS: MECLIZINE HCL 12.5 MG TABLET PO SCH ×2 (11:29→21:31)
[2017-08-27] MEDS: SENNOSIDES 8.6MG TABLET (FP) PO SCH ×2 (11:29→21:32)
[2017-08-27] MEDS: ASPIRIN 81 MG CHEWABLE TABLETS PO SCH (11:29)
[2017-08-27] MEDS: VALSARTAN 160 MG TABLET (UD) PO SCH (11:29)
[2017-08-27] MEDS: CHOLECALCIFEROL (VITAMIN D3) 1,000 UNIT TABLET (FP) PO SCH (11:29)
[2017-08-27] MEDS: TIOTROPIUM BROMIDE 18 MCG/INH (DEVICE W/ 5 CAPSULES) IH SCH (11:30)
[2017-08-27] MEDS: PANTOPRAZOLE 40 MG TABLET (FP) PO SCH (11:30)
[2017-08-27] MEDS: NIFEdipine E.R. 30 MG TABLET (FP) PO SCH (11:30)
[2017-08-27] MEDS: BUDESONIDE/FORMETEROL FUMARATE 160/4.5 mcg INHALER IH SCH ×2 (11:30→21:32)
[2017-08-27] MEDS: NYSTATIN POWDER 100,000 UNITS/GM - 15 GM TOPICAL POWDER TP SCH ×2 (11:32→21:32)
[2017-08-27] MEDS: HYDROCORTISONE 2.5% TOPICAL CREAM 30 GM TUBE TP SCH ×2 (11:32→21:31)
[2017-08-27] MEDS ORDERED: INSULIN (NOVOLOG) ASPART 100 UNITS/ML 10ML VIAL ONE ×2 (11:57→21:27)
--- NOTE | 2017-08-27 12:14 | PN ---
Progress Note (short form) - Note Progress Note: PULMONARY Feels slightly improved with increased dose of steroids but still with chest tightness and wheezing. Last Vital Signs Temp Pulse Resp BP Pulse Ox 99.4 F 104 H 18 142/63 98 08/27/17 10:57 08/27/17 10:57 08/27/17 10:57 08/27/17 10:57 08/26/17 22:00 Gen: mildly tachypneic with speaking Heart: RRR Lung: distant breath sounds, poor air entry, scattered wheezes Abd: soft, nontender Ext: no edema CBC, BMP 08/27/17 06:00 08/27/17 06:00 Active Medications Acetaminophen (Tylenol -) 650 mg PO TID PRN PRN Reason: PAIN Last Admin: 08/25/17 09:42 Dose: 650 mg Albuterol/Ipratropium (Duoneb -) 1 amp NEB Q6H PRN PRN Reason: SHORTNESS OF BREATH Last Admin: 08/27/17 07:15 Dose: 1 amp Aspirin (Asa -) 81 mg PO DAILY [facility] Last Admin: 08/27/17 11:29 Dose: 81 mg Azithromycin (Zithromax -) 250 mg PO DAILY [facility] Stop: 08/28/17 09:59 Last Admin: 08/27/17 11:29 Dose: 250 mg Budesonide/Formoterol Fumarate (Symbicort 160/4.5mcg -) 1 puff IH BID [facility] Last Admin: 08/27/17 11:30 Dose: 1 puff Cholecalciferol (Vitamin D3 -) 2,000 unit PO DAILY [facility] Last Admin: 08/27/17 11:29 Dose: 2,000 unit Ferrous Sulfate (Feosol -) 325 mg PO TIDCM [facility] Last Admin: 08/27/17 11:29 Dose: 325 mg Furosemide (Lasix Injection -) 40 mg IVPUSH DAILY [facility] Last Admin: 08/27/17 10:50 Dose: 40 mg Hydrocortisone (Anusol 2.5% Hc Cream -) 1 applic TP BID [facility] Last Admin: 08/27/17 11:32 Dose: 1 applic Insulin Aspart (Novolog Vial Sliding Scale -) 1 vial SQ ACHS [facility] PRN Reason: Protocol Last Admin: 08/27/17 12:05 Dose: 4 units Meclizine HCl (Antivert -) 12.5 mg PO BID [facility] Last Admin: 08/27/17 11:29 Dose: 12.5 mg Methylprednisolone Sodium Succinate (Solu-Medrol -) 40 mg IVPUSH Q6H-IV [facility] Last Admin: 08/27/17 10:44 Dose: 40 mg Nifedipine (Procardia Xl -) 30 mg PO DAILY [facility] Last Admin: 08/27/17 11:30 Dose: 30 mg Non-Formulary Medication (Cyclosporine [Restasis]) 1 each OP BID [facility] Nystatin (Nystop Powder -) 1 applic TP BID [facility] Last Admin: 08/27/17 11:32 Dose: 1 applic Nystatin (Nystatin Oral Suspension -) 500,000 units PO TID [facility] Last Admin: 08/27/17 06:30 Dose: 500,000 units Pantoprazole Sodium (Protonix -) 40 mg PO DAILY [facility] Last Admin: 08/27/17 11:30 Dose: 40 mg Rosuvastatin Calcium (Crestor -) 10 mg PO HS [facility] Last Admin: 08/26/17 21:22 Dose: 10 mg Senna (Senna -) 1 tab PO BID [facility] Last Admin: 08/27/17 11:29 Dose: 1 tab Sodium Chloride ([place] Nasal [place] -) 1 spray NS Q4H PRN PRN Reason: NASAL CONGESTION Tiotropium [place] (Spiriva -) 1 puff IH DAILY [facility] Last Admin: 08/27/17 11:30 Dose: Not Given Valsartan (Diovan -) 160 mg PO DAILY [facility] Last Admin: 08/27/17 11:29 Dose: 160 mg A/P Acute on Chronic Hypoxic and Hypercapneic Respiratory Failure Acute COPD Exacerbation URI LV Diastolic Dysfunction Pulmonary HTN h/o PE Morbid Obesity HTN - continue medrol at current dose - inhaled bronchodilators standing and PRN - O2 to keep SpO2 >90% - DVT prophylaxis - will d/c BiPAP per pt request
--- NOTE | 2017-08-27 15:30 | PN ---
Progress Note, Physician History of Present Illness: continues to have chest discomfort no other issues - Current Medication List Current Medications: Active Medications Acetaminophen (Tylenol -) 650 mg PO TID PRN PRN Reason: PAIN Last Admin: 08/25/17 09:42 Dose: 650 mg Albuterol/Ipratropium (Duoneb -) 1 amp NEB Q6H PRN PRN Reason: SHORTNESS OF BREATH Last Admin: 08/27/17 11:00 Dose: 1 amp Aspirin (Asa -) 81 mg PO DAILY [facility] Last Admin: 08/27/17 11:29 Dose: 81 mg Budesonide/Formoterol Fumarate (Symbicort 160/4.5mcg -) 1 puff IH BID [facility] Last Admin: 08/27/17 11:30 Dose: 1 puff Cholecalciferol (Vitamin D3 -) 2,000 unit PO DAILY [facility] Last Admin: 08/27/17 11:29 Dose: 2,000 unit Ferrous Sulfate (Feosol -) 325 mg PO TIDCM [facility] Last Admin: 08/27/17 11:29 Dose: 325 mg Furosemide (Lasix Injection -) 40 mg IVPUSH DAILY [facility] Last Admin: 08/27/17 10:50 Dose: 40 mg Hydrocortisone (Anusol 2.5% Hc Cream -) 1 applic TP BID [facility] Last Admin: 08/27/17 11:32 Dose: 1 applic Insulin Aspart (Novolog Vial Sliding Scale -) 1 vial SQ ACHS [facility] PRN Reason: Protocol Last Admin: 08/27/17 12:05 Dose: 4 units Meclizine HCl (Antivert -) 12.5 mg PO BID [facility] Last Admin: 08/27/17 11:29 Dose: 12.5 mg Methylprednisolone Sodium Succinate (Solu-Medrol -) 40 mg IVPUSH Q6H-IV [facility] Last Admin: 08/27/17 14:19 Dose: 40 mg Nifedipine (Procardia Xl -) 30 mg PO DAILY [facility] Last Admin: 08/27/17 11:30 Dose: 30 mg Non-Formulary Medication (Cyclosporine [Restasis]) 1 each OP BID [facility] Nystatin (Nystop Powder -) 1 applic TP BID [facility] Last Admin: 08/27/17 11:32 Dose: 1 applic Nystatin (Nystatin Oral Suspension -) 500,000 units PO TID [facility] Last Admin: 08/27/17 14:54 Dose: 500,000 units Pantoprazole Sodium (Protonix -) 40 mg PO DAILY [facility] Last Admin: 08/27/17 11:30 Dose: 40 mg Rosuvastatin Calcium (Crestor -) 10 mg PO HS [facility] Last Admin: 08/26/17 21:22 Dose: 10 mg Senna (Senna -) 1 tab PO BID [facility] Last Admin: 08/27/17 11:29 Dose: 1 tab Sodium Chloride ([place] Nasal [place] -) 1 spray NS Q4H PRN PRN Reason: NASAL CONGESTION Tiotropium [place] (Spiriva -) 1 puff IH DAILY [facility] Last Admin: 08/27/17 11:30 Dose: Not Given Valsartan (Diovan -) 160 mg PO DAILY [facility] Last Admin: 08/27/17 11:29 Dose: 160 mg - Objective Vital Signs: Vital Signs Temperature 99.4 F 08/27/17 14:51 Pulse Rate 102 H 08/27/17 14:51 Respiratory Rate 22 08/27/17 14:51 Blood Pressure 113/79 08/27/17 14:51 O2 Sat by Pulse Oximetry (%) 96 08/27/17 11:00 Constitutional: Yes: Calm, Mild Distress Cardiovascular: Yes: Regular Rate and Rhythm Respiratory: Yes: Regular, CTA Bilaterally Gastrointestinal: Yes: Normal Bowel Sounds, Soft Musculoskeletal: Yes: WNL Extremities: Yes: WNL Neurological: Yes: Alert, Oriented Psychiatric: Yes: Alert Labs: CBC, BMP 08/27/17 06:00 08/27/17 06:00 INR, PTT INR 3.02 (0.82-1.09) H 08/27/17 06:00 Assessment/Plan Problem List - Problems (1) SOB (shortness of breath) Code(s): R06.02 - SHORTNESS OF BREATH (2) Acute on chronic respiratory failure with hypoxia and hypercapnia Code(s): J96.21 - ACUTE AND CHRONIC RESPIRATORY FAILURE WITH HYPOXIA J96.22 - ACUTE AND CHRONIC RESPIRATORY FAILURE WITH HYPERCAPNIA (3) Anemia Code(s): D64.9 - ANEMIA, UNSPECIFIED (4) CHF (congestive heart failure) Code(s): I50.9 - HEART FAILURE, UNSPECIFIED (5) COPD exacerbation Code(s): J44.1 - CHRONIC OBSTRUCTIVE PULMONARY DISEASE W (ACUTE) EXACERBATION (6) Chronic diastolic (congestive) heart failure Code(s): I50.32 - CHRONIC DIASTOLIC (CONGESTIVE) HEART FAILURE (7) Coronary artery disease Code(s): I25.10 - ATHSCL HEART DISEASE OF [place] CORONARY ARTERY W/O ANG PCTRS (8) History of pulmonary embolism Code(s): Z86.711 - PERSONAL HISTORY OF PULMONARY EMBOLISM (9) Morbid obesity Code(s): E66.01 - MORBID (SEVERE) OBESITY DUE TO EXCESS CALORIES (10) Pulmonary hypertension Code(s): I27.2 - OTHER SECONDARY PULMONARY HYPERTENSION * DO NOT USE * plan after looing at the picture and the story 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
--- NOTE | 2017-08-27 18:22 | CON.ENT ---
Consult Consult Specialty:: ENT Referred by:: Daniella Esparza NP Reason for Consultation:: hearing loss - History of Present Illness Chief Complaint: hearing loss History of Present Illness: pt reported hearing a pop in her ear, then could not hear as well ~5 days ago, she also noted dark spots in her left eye vision at the same time, this is improving had audiogram many years ago, no ear infections, ear trauma, or ear surgery some tinnitus, also hx dizziness (s/p CVA) no ear pain or drainage had a stroke affecting left eye vision ~5 yrs ago , sees a neurologist whenever she is in the hospital but does not have one that she sees when home. 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 Cardio/Vascular: Yes: CHF (chronic diastolic), HTN, Hyperlipdemia Pulmonary: Yes: COPD, O2 Dependent, Pulmonary Embolus, Other (pulmonary HTN) - Alcohol/Substance Use Hx Alcohol Use: No - Smoking History Smoking history: Unknown if ever smoked Have you smoked in the past 12 months: No Aproximately how many cigarettes per day: 0 If you are a former smoker, when did you quit?: 1998 - Social History Usual Living Arrangement: Alone History of Recent Travel: No Home Medications - Allergies Allergies/Adverse Reactions: Allergies Allergy/AdvReac Type Severity Reaction Status Date / Time No Known Allergies Allergy Verified 06/14/17 15:30 - Home Medications Home Medications: Ambulatory Orders Mometasone Furoate [Nasonex] 1 - 2 inh NS PRN 01/21/14 Olmesartan/Hydrochlorothiazide [Benicar Hct 20-12.5 mg Tablet] 1 each PO DAILY 01/21/14 Promethazine/Phenyleph/Codeine [Promethazine Vc-Codeine Syrup] 120 ml PO PRN Cholecalciferol (Vitamin D3) [Vitamin D3] 2,000 unit PO DAILY #30 capsule Docusate Sodium [Colace -] 200 mg PO PRN #30 capsule 08/03/14 Clobetasol Propionate/Emoll [Olux-E 0.05% Foam] 100 gm TP PRN 11/20/15 Acetaminophen [Tylenol] 650 mg PO TID PRN 11/23/15 Colchicine [Colcrys] 0.6 mg PO DAILY PRN 11/23/15 Nystatin Oral Suspension - [Nystatin Oral Susp 940022 Units/5 ML -] 5 ml PO BID 11/23/15 Budesonide/Formeterol Fumarate [SYMBICORT 160/4.5mcg -] 1 inh PO BID #7 inhaler 11/26/15 Cyclosporine [Restasis] 1 each OP BID #30 droperette 11/26/15 Ferrous Sulfate [Feosol] 325 mg PO TID #30 ud 11/26/15 Furosemide [Lasix -] 20 mg PO BID #60 tablet 11/26/15 Guaifenesin AC [Robitussin AC -] 5 ml PO Q6H PRN #30 liquid 11/26/15 Meclizine HCl [Antivert -] 12.5 mg PO BID #30 tablet 11/26/15 Nifedipine ER [Procardia XL -] 30 mg PO DAILY #30 tab.er.24 11/26/15 Pantoprazole Sodium [Protonix -] 40 mg PO DAILY #30 tablet.ec 11/26/15 Rosuvastatin Calcium [Crestor] 10 mg PO HS #30 tablet 11/26/15 Tiotropium [place] [Spiriva] 1 inh PO DAILY #7 inh 11/26/15 Warfarin Na [Coumadin -] 3 mg PO HS 06/14/17 Albuterol 0.083% Nebulizer [place] [Ventolin 0.083% Nebulizer Soln -] 1 amp NEB TIDR amp 06/24/17 Nystatin Cream [Mycostatin Cream -] 1 applic TP BID applic 06/24/17 Prednisone [Deltasone -] 40 mg PO DAILY tablet 06/24/17 Physical Exam-ENT Vital Signs: Vital Signs Temperature 99.4 F 08/27/17 14:51 Pulse Rate 102 H 08/27/17 14:51 Respiratory Rate 22 08/27/17 14:51 Blood Pressure 113/79 08/27/17 14:51 O2 Sat by Pulse Oximetry (%) 96 08/27/17 11:00 Constitutional: Yes: No Distress, Calm, Obese Head: Yes: WNL Face: Yes: WNL Eyes: Yes: WNL Nose: Yes: Other (no bleeding, nasal endoscopy: septum intact with minimal deviation, inferior turbinates mildly enlarged and dry, sl dry blood left, middle turbinates sl dry, middle meati WNL, superior meati, superior turbinates and sphenoethmoid recesses not visualized) Oral/Pharynx: Yes: WNL Outer Ear: Yes: WNL Ear Canal: Yes: WNL Tympanic Membrane: Yes: Other (left TM normal, no fluid, right TM intact but + serous effusion in middle ear with air bubbles. NO evidence of infection either ear) Neck: Yes: WNL Respiratory: Yes: Other (using nasal oxygen by cannulae) Neurological: Yes: WNL, Alert, Oriented Problem List - Problems (1) Hearing loss in left ear Assessment/Plan: pt reports hearing a pop in left ear, then noted hearing trouble associated with some left eye symptoms prior hearing trouble left ear after stroke 5 yrs ago on exam left ear is better, right ear has serous effusion in middle ear with bubbles Recommend: elevate head of bed needs complete audiogram in office after discharge no other medications indicated worst case: if pt had sudden sensorineural hearing loss, then corticosteroids would be recommended, which she is already getting (methylprenisolone) consider Neurology evaluation since she also reported left eye visual changes like when she had her stroke. Code(s): H91.92 - UNSPECIFIED HEARING LOSS, LEFT EAR Qualifiers: Hearing loss type: unspecified Qualified Code(s): H91.92 - Unspecified hearing loss, left ear; H91.92 - Unspecified hearing loss, left ear (2) Epistaxis, recurrent Assessment/Plan: had severe bleeding, now resolved, hx recurrent bleeding chronic expect htis is exacerbated by chronic oxygen use with associated drying of nasal mucosa nasal endoscopy shows mucosal dryness but no lesion and no active bleeding Recommend: made saline spray BID, not prn humidify oxygen source may also use vaseline or other emollient in nostrils nightly Thank you for consultation Sarthak Gonzalez MD FACS Code(s): R04.0 - EPISTAXIS
--- NOTE | 2017-08-27 19:59 | PN ---
Progress Note, Physician History of Present Illness: No new complaints - Current Medication List Current Medications: Active Medications Acetaminophen (Tylenol -) 650 mg PO TID PRN PRN Reason: PAIN Last Admin: 08/25/17 09:42 Dose: 650 mg Albuterol/Ipratropium (Duoneb -) 1 amp NEB Q6H PRN PRN Reason: SHORTNESS OF BREATH Last Admin: 08/27/17 18:37 Dose: 1 amp Aspirin (Asa -) 81 mg PO DAILY [facility] Last Admin: 08/27/17 11:29 Dose: 81 mg Budesonide/Formoterol Fumarate (Symbicort 160/4.5mcg -) 1 puff IH BID [facility] Last Admin: 08/27/17 11:30 Dose: 1 puff Cholecalciferol (Vitamin D3 -) 2,000 unit PO DAILY [facility] Last Admin: 08/27/17 11:29 Dose: 2,000 unit Ferrous Sulfate (Feosol -) 325 mg PO TIDCM [facility] Last Admin: 08/27/17 17:34 Dose: 325 mg Furosemide (Lasix Injection -) 40 mg IVPUSH DAILY [facility] Last Admin: 08/27/17 10:50 Dose: 40 mg Hydrocortisone (Anusol 2.5% Hc Cream -) 1 applic TP BID [facility] Last Admin: 08/27/17 11:32 Dose: 1 applic Insulin Aspart (Novolog Vial Sliding Scale -) 1 vial SQ ACHS [facility] PRN Reason: Protocol Last Admin: 08/27/17 17:34 Dose: 4 units Meclizine HCl (Antivert -) 12.5 mg PO BID [facility] Last Admin: 08/27/17 11:29 Dose: 12.5 mg Methylprednisolone Sodium Succinate (Solu-Medrol -) 40 mg IVPUSH Q6H-IV [facility] Last Admin: 08/27/17 14:19 Dose: 40 mg Nifedipine (Procardia Xl -) 30 mg PO DAILY [facility] Last Admin: 08/27/17 11:30 Dose: 30 mg Non-Formulary Medication (Cyclosporine [Restasis]) 1 each OP BID [facility] Nystatin (Nystop Powder -) 1 applic TP BID [facility] Last Admin: 08/27/17 11:32 Dose: 1 applic Nystatin (Nystatin Oral Suspension -) 500,000 units PO TID [facility] Last Admin: 08/27/17 14:54 Dose: 500,000 units Pantoprazole Sodium (Protonix -) 40 mg PO DAILY [facility] Last Admin: 08/27/17 11:30 Dose: 40 mg Rosuvastatin Calcium (Crestor -) 10 mg PO HS [facility] Last Admin: 08/26/17 21:22 Dose: 10 mg Senna (Senna -) 1 tab PO BID [facility] Last Admin: 08/27/17 11:29 Dose: 1 tab Sodium Chloride ([place] Nasal [place] -) 2 spray NS BID [facility] Tiotropium [place] (Spiriva -) 1 puff IH DAILY [facility] Last Admin: 08/27/17 11:30 Dose: Not Given Valsartan (Diovan -) 160 mg PO DAILY [facility] Last Admin: 08/27/17 11:29 Dose: 160 mg - Objective Vital Signs: Vital Signs Temperature 99.4 F 08/27/17 14:51 Pulse Rate 102 H 08/27/17 14:51 Respiratory Rate 22 08/27/17 14:51 Blood Pressure 113/79 08/27/17 14:51 O2 Sat by Pulse Oximetry (%) 96 08/27/17 11:00 Constitutional: Yes: Well Nourished Neck: Yes: WNL, Supple Cardiovascular: Yes: WNL, Regular Rate and Rhythm Respiratory: Yes: Diminished, Wheezes Gastrointestinal: Yes: WNL, Normal Bowel Sounds, Soft, Abdomen, Obese Labs: CBC, BMP 08/27/17 06:00 08/27/17 06:00 INR, PTT INR 3.02 (0.82-1.09) H 08/27/17 06:00 Problem List - Problems (1) COPD exacerbation Code(s): J44.1 - CHRONIC OBSTRUCTIVE PULMONARY DISEASE W (ACUTE) EXACERBATION (2) HLD (hyperlipidemia) Code(s): E78.5 - HYPERLIPIDEMIA, UNSPECIFIED (3) Chronic diastolic (congestive) heart failure Code(s): I50.32 - CHRONIC DIASTOLIC (CONGESTIVE) HEART FAILURE (4) Hypertension Code(s): I10 - ESSENTIAL (PRIMARY) HYPERTENSION (5) History of pulmonary embolism Code(s): Z86.711 - PERSONAL HISTORY OF PULMONARY EMBOLISM (6) DVT (deep venous thrombosis) Code(s): I82.409 - ACUTE EMBOLISM AND THOMBOS UNSP DEEP VN UNSP LOWER EXTREMITY (7) Hemorrhoid Code(s): K64.9 - UNSPECIFIED HEMORRHOIDS (8) Coronary artery disease Code(s): I25.10 - ATHSCL HEART DISEASE OF [place] CORONARY ARTERY W/O ANG PCTRS (9) Morbid obesity Code(s): E66.01 - MORBID (SEVERE) OBESITY DUE TO EXCESS CALORIES
[2017-08-27] MEDS: ROSUVASTATIN CA 10 MG TABLET (FP) PO SCH (21:31)
[2017-08-27] MEDS: SODIUM CHLORIDE NASAL SPRAY 44 ML BOTTLE NS SCH (21:41)
[2017-08-28] MEDS: methylPREDNISolone NA SUCC 40 MG/1 ML VIAL IVPUSH SCH ×4 (02:53→21:05)
[2017-08-28] MEDS: INSULIN SLIDING SCALE (NOVOLOG) 1 VIAL SQ SCH ×4 (06:21→23:00)
[2017-08-28] MEDS: NYSTATIN 500,000 UNITS/5 ML SUSPENSION PO SCH ×3 (06:21→22:50)
[2017-08-28] MEDS: ALBUTEROL SO4 2.5/IPRATROPIUM 0.5 INH SOL 3 ML VIAL.NEB. NEB PRN ×4 (06:58→22:45)
[2017-08-28] MEDS: FERROUS SO4 325 MG TABLET (FP) PO SCH ×3 (08:35→17:35)
--- NOTE | 2017-08-28 09:15 | PN ---
Progress Note, Physician Chief Complaint: feeling stable, same as yesterday - Current Medication List Current Medications: Active Medications Acetaminophen (Tylenol -) 650 mg PO TID PRN PRN Reason: PAIN Last Admin: 08/25/17 09:42 Dose: 650 mg Albuterol/Ipratropium (Duoneb -) 1 amp NEB Q6H PRN PRN Reason: SHORTNESS OF BREATH Last Admin: 08/28/17 06:58 Dose: 1 amp Aspirin (Asa -) 81 mg PO DAILY [facility] Last Admin: 08/27/17 11:29 Dose: 81 mg Budesonide/Formoterol Fumarate (Symbicort 160/4.5mcg -) 1 puff IH BID [facility] Last Admin: 08/27/17 21:32 Dose: 1 puff Cholecalciferol (Vitamin D3 -) 2,000 unit PO DAILY [facility] Last Admin: 08/27/17 11:29 Dose: 2,000 unit Ferrous Sulfate (Feosol -) 325 mg PO TIDCM [facility] Last Admin: 08/28/17 08:35 Dose: 325 mg Furosemide (Lasix Injection -) 40 mg IVPUSH DAILY [facility] Last Admin: 08/27/17 10:50 Dose: 40 mg Hydrocortisone (Anusol 2.5% Hc Cream -) 1 applic TP BID [facility] Last Admin: 08/27/17 21:31 Dose: 1 applic Insulin Aspart (Novolog Vial Sliding Scale -) 1 vial SQ ACHS [facility] PRN Reason: Protocol Last Admin: 08/28/17 06:21 Dose: 4 units Meclizine HCl (Antivert -) 12.5 mg PO BID [facility] Last Admin: 08/27/17 21:31 Dose: 12.5 mg Methylprednisolone Sodium Succinate (Solu-Medrol -) 40 mg IVPUSH Q6H-IV [facility] Last Admin: 08/28/17 08:35 Dose: 40 mg Nifedipine (Procardia Xl -) 30 mg PO DAILY [facility] Last Admin: 08/27/17 11:30 Dose: 30 mg Non-Formulary Medication (Cyclosporine [Restasis]) 1 each OP BID [facility] Nystatin (Nystop Powder -) 1 applic TP BID [facility] Last Admin: 08/27/17 21:32 Dose: 1 applic Nystatin (Nystatin Oral Suspension -) 500,000 units PO TID [facility] Last Admin: 08/28/17 06:21 Dose: 500,000 units Pantoprazole Sodium (Protonix -) 40 mg PO DAILY [facility] Last Admin: 08/27/17 11:30 Dose: 40 mg Rosuvastatin Calcium (Crestor -) 10 mg PO HS [facility] Last Admin: 08/27/17 21:31 Dose: 10 mg Senna (Senna -) 1 tab PO BID [facility] Last Admin: 08/27/17 21:32 Dose: 1 tab Sodium Chloride ([place] Nasal [place] -) 2 spray NS BID [facility] Last Admin: 08/27/17 21:41 Dose: 2 sprays Tiotropium [place] (Spiriva -) 1 puff IH DAILY [facility] Last Admin: 08/27/17 11:30 Dose: Not Given Valsartan (Diovan -) 160 mg PO DAILY [facility] Last Admin: 08/27/17 11:29 Dose: 160 mg - Objective Vital Signs: Vital Signs Temperature 98.7 F 08/28/17 06:00 Pulse Rate 93 H 08/28/17 06:00 Respiratory Rate 18 08/28/17 06:00 Blood Pressure 103/55 08/28/17 06:00 O2 Sat by Pulse Oximetry (%) 96 08/27/17 21:00 Constitutional: Yes: Calm Cardiovascular: Yes: Regular Rate and Rhythm Respiratory: Yes: Other (b.l decreased breath sounds, mild wheezing on expirtation anteriorly) Gastrointestinal: Yes: Soft, Abdomen, Obese Edema: No Neurological: Yes: Alert, Oriented ...Motor Strength: WNL Labs: CBC, BMP 08/27/17 06:00 08/27/17 06:00 INR, PTT INR 3.02 (0.82-1.09) H 08/27/17 06:00 Microbiology 08/20/17 16:46 Blood - Peripheral Venous Blood Culture - Final NO GROWTH AFTER 5 DAYS INCUBATION 08/20/17 16:46 Blood - Peripheral Venous Blood Culture - Final NO GROWTH AFTER 5 DAYS INCUBATION Laboratory Tests 08/27/17 08/27/17 08/28/17 06:00 06:00 07:12 WBC 24.7 H D Hgb 7.8 L Plt Count 304 INR 3.02 H Pending Assessment/Plan Assessment/Plan AECOPD Acute on chronic diastolic CHF, mild exacerbation History of PE on coumadin REC: AE COPD possibly triggered by recent Influenza Vaccine vs other viral URI Continue nebs, supp. O2 and steroid taper as per Pulmonary. INR now therapeutic, maintain b/ 2-3. BP controlled on current regimen, remains euvolemic; agree w/ Daily IV Lasix while receiving IV steroids as she is prone to fluid retention.
[2017-08-28 09:21] LABS: INR 2.81 (0.82-1.09); PROTHROMBIN TIME (PATIENT) 31.7 SEC (9.98-11.88)
[2017-08-28] MEDS: ASPIRIN 81 MG CHEWABLE TABLETS PO SCH (09:43)
[2017-08-28] MEDS: NIFEdipine E.R. 30 MG TABLET (FP) PO SCH (09:43)
[2017-08-28] MEDS: FUROSEMIDE 40 MG/4 ML INJECTABLE VIAL IVPUSH SCH (09:43)
[2017-08-28] MEDS: CHOLECALCIFEROL (VITAMIN D3) 1,000 UNIT TABLET (FP) PO SCH (09:43)
[2017-08-28] MEDS: MECLIZINE HCL 12.5 MG TABLET PO SCH ×2 (09:43→22:50)
[2017-08-28] MEDS: VALSARTAN 160 MG TABLET (UD) PO SCH (09:43)
[2017-08-28] MEDS: HYDROCORTISONE 2.5% TOPICAL CREAM 30 GM TUBE TP SCH ×2 (09:43→22:25)
[2017-08-28] MEDS: PANTOPRAZOLE 40 MG TABLET (FP) PO SCH (09:43)
[2017-08-28] MEDS: SENNOSIDES 8.6MG TABLET (FP) PO SCH ×2 (09:43→22:50)
[2017-08-28] MEDS: NYSTATIN POWDER 100,000 UNITS/GM - 15 GM TOPICAL POWDER TP SCH ×2 (09:43→22:50)
[2017-08-28] MEDS: BUDESONIDE/FORMETEROL FUMARATE 160/4.5 mcg INHALER IH SCH ×2 (09:44→22:50)
[2017-08-28] MEDS: TIOTROPIUM BROMIDE 18 MCG/INH (DEVICE W/ 5 CAPSULES) IH SCH (09:44)
[2017-08-28] MEDS: SODIUM CHLORIDE NASAL SPRAY 44 ML BOTTLE NS SCH ×2 (09:44→22:35)
[2017-08-28] MEDS ORDERED: INSULIN (NOVOLOG) ASPART 100 UNITS/ML 10ML VIAL ONE (11:01)
--- NOTE | 2017-08-28 11:53 | PN ---
Progress Note, Physician History of Present Illness: patient left eye looks a bit red says she popped something still sob no fevers - Current Medication List Current Medications: Active Medications Acetaminophen (Tylenol -) 650 mg PO TID PRN PRN Reason: PAIN Last Admin: 08/25/17 09:42 Dose: 650 mg Albuterol/Ipratropium (Duoneb -) 1 amp NEB Q6H PRN PRN Reason: SHORTNESS OF BREATH Last Admin: 08/28/17 11:37 Dose: 1 amp Aspirin (Asa -) 81 mg PO DAILY [facility] Last Admin: 08/28/17 09:43 Dose: 81 mg Budesonide/Formoterol Fumarate (Symbicort 160/4.5mcg -) 1 puff IH BID [facility] Last Admin: 08/28/17 09:44 Dose: 1 puff Cholecalciferol (Vitamin D3 -) 2,000 unit PO DAILY [facility] Last Admin: 08/28/17 09:43 Dose: 2,000 unit Ferrous Sulfate (Feosol -) 325 mg PO TIDCM [facility] Last Admin: 08/28/17 11:17 Dose: 325 mg Furosemide (Lasix Injection -) 40 mg IVPUSH DAILY [facility] Last Admin: 08/28/17 09:43 Dose: 40 mg Hydrocortisone (Anusol 2.5% Hc Cream -) 1 applic TP BID [facility] Last Admin: 08/28/17 09:43 Dose: 1 applic Insulin Aspart (Novolog Vial Sliding Scale -) 1 vial SQ ACHS [facility] PRN Reason: Protocol Last Admin: 08/28/17 11:07 Dose: 8 units Meclizine HCl (Antivert -) 12.5 mg PO BID [facility] Last Admin: 08/28/17 09:43 Dose: 12.5 mg Methylprednisolone Sodium Succinate (Solu-Medrol -) 40 mg IVPUSH Q6H-IV [facility] Last Admin: 08/28/17 08:35 Dose: 40 mg Nifedipine (Procardia Xl -) 30 mg PO DAILY [facility] Last Admin: 08/28/17 09:43 Dose: 30 mg Non-Formulary Medication (Cyclosporine [Restasis]) 1 each OP BID [facility] Nystatin (Nystop Powder -) 1 applic TP BID [facility] Last Admin: 08/28/17 09:43 Dose: 1 applic Nystatin (Nystatin Oral Suspension -) 500,000 units PO TID [facility] Last Admin: 08/28/17 06:21 Dose: 500,000 units Pantoprazole Sodium (Protonix -) 40 mg PO DAILY [facility] Last Admin: 08/28/17 09:43 Dose: 40 mg Rosuvastatin Calcium (Crestor -) 10 mg PO HS [facility] Last Admin: 08/27/17 21:31 Dose: 10 mg Senna (Senna -) 1 tab PO BID [facility] Last Admin: 08/28/17 09:43 Dose: 1 tab Sodium Chloride ([place] Nasal [place] -) 2 spray NS BID [facility] Last Admin: 08/28/17 09:44 Dose: 2 sprays Tiotropium [place] (Spiriva -) 1 puff IH DAILY [facility] Last Admin: 08/28/17 09:44 Dose: Not Given Valsartan (Diovan -) 160 mg PO DAILY [facility] Last Admin: 08/28/17 09:43 Dose: 160 mg - Objective Vital Signs: Vital Signs Temperature 97.9 F 08/28/17 10:00 Pulse Rate 100 H 08/28/17 11:36 Respiratory Rate 18 08/28/17 10:00 Blood Pressure 119/53 08/28/17 10:00 O2 Sat by Pulse Oximetry (%) 97 08/28/17 11:36 Constitutional: Yes: No Distress, Calm, Obese Cardiovascular: Yes: Regular Rate and Rhythm Respiratory: Yes: On Nasal O2, Poor Air Entry (bases) Gastrointestinal: Yes: Normal Bowel Sounds, Soft Musculoskeletal: Yes: WNL Extremities: Yes: WNL Neurological: Yes: Alert, Oriented Psychiatric: Yes: Alert, Oriented Labs: CBC, BMP 08/27/17 06:00 08/27/17 06:00 INR, PTT INR 2.81 (0.82-1.09) H 08/28/17 07:12 Assessment/Plan Problem List - Problems (1) SOB (shortness of breath) Code(s): R06.02 - SHORTNESS OF BREATH (2) Acute on chronic respiratory failure with hypoxia and hypercapnia Code(s): J96.21 - ACUTE AND CHRONIC RESPIRATORY FAILURE WITH HYPOXIA J96.22 - ACUTE AND CHRONIC RESPIRATORY FAILURE WITH HYPERCAPNIA (3) Anemia Code(s): D64.9 - ANEMIA, UNSPECIFIED (4) CHF (congestive heart failure) Code(s): I50.9 - HEART FAILURE, UNSPECIFIED (5) COPD exacerbation Code(s): J44.1 - CHRONIC OBSTRUCTIVE PULMONARY DISEASE W (ACUTE) EXACERBATION (6) Chronic diastolic (congestive) heart failure Code(s): I50.32 - CHRONIC DIASTOLIC (CONGESTIVE) HEART FAILURE (7) Coronary artery disease Code(s): I25.10 - ATHSCL HEART DISEASE OF [place] CORONARY ARTERY W/O ANG PCTRS (8) History of pulmonary embolism Code(s): Z86.711 - PERSONAL HISTORY OF PULMONARY EMBOLISM (9) Morbid obesity Code(s): E66.01 - MORBID (SEVERE) OBESITY DUE TO EXCESS CALORIES (10) Pulmonary hypertension Code(s): I27.2 - OTHER SECONDARY PULMONARY HYPERTENSION * DO NOT USE * plan after looing at the picture and the story 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
--- NOTE | 2017-08-28 12:45 | PN ---
Progress Note, Physician History of Present Illness: PULMONARY ALERT,REMAINS DYSPNEIC,LESS COUGH,-CP - Current Medication List Current Medications: Active Medications Acetaminophen (Tylenol -) 650 mg PO TID PRN PRN Reason: PAIN Last Admin: 08/25/17 09:42 Dose: 650 mg Albuterol/Ipratropium (Duoneb -) 1 amp NEB Q6H PRN PRN Reason: SHORTNESS OF BREATH Last Admin: 08/28/17 11:37 Dose: 1 amp Aspirin (Asa -) 81 mg PO DAILY [facility] Last Admin: 08/28/17 09:43 Dose: 81 mg Budesonide/Formoterol Fumarate (Symbicort 160/4.5mcg -) 1 puff IH BID [facility] Last Admin: 08/28/17 09:44 Dose: 1 puff Cholecalciferol (Vitamin D3 -) 2,000 unit PO DAILY [facility] Last Admin: 08/28/17 09:43 Dose: 2,000 unit Ferrous Sulfate (Feosol -) 325 mg PO TIDCM [facility] Last Admin: 08/28/17 11:17 Dose: 325 mg Furosemide (Lasix Injection -) 40 mg IVPUSH DAILY [facility] Last Admin: 08/28/17 09:43 Dose: 40 mg Hydrocortisone (Anusol 2.5% Hc Cream -) 1 applic TP BID [facility] Last Admin: 08/28/17 09:43 Dose: 1 applic Insulin Aspart (Novolog Vial Sliding Scale -) 1 vial SQ ACHS [facility] PRN Reason: Protocol Last Admin: 08/28/17 11:07 Dose: 8 units Meclizine HCl (Antivert -) 12.5 mg PO BID [facility] Last Admin: 08/28/17 09:43 Dose: 12.5 mg Methylprednisolone Sodium Succinate (Solu-Medrol -) 40 mg IVPUSH Q6H-IV [facility] Last Admin: 08/28/17 08:35 Dose: 40 mg Nifedipine (Procardia Xl -) 30 mg PO DAILY [facility] Last Admin: 08/28/17 09:43 Dose: 30 mg Non-Formulary Medication (Cyclosporine [Restasis]) 1 each OP BID [facility] Nystatin (Nystop Powder -) 1 applic TP BID [facility] Last Admin: 08/28/17 09:43 Dose: 1 applic Nystatin (Nystatin Oral Suspension -) 500,000 units PO TID [facility] Last Admin: 08/28/17 06:21 Dose: 500,000 units Pantoprazole Sodium (Protonix -) 40 mg PO DAILY [facility] Last Admin: 08/28/17 09:43 Dose: 40 mg Rosuvastatin Calcium (Crestor -) 10 mg PO HS [facility] Last Admin: 08/27/17 21:31 Dose: 10 mg Senna (Senna -) 1 tab PO BID [facility] Last Admin: 08/28/17 09:43 Dose: 1 tab Sodium Chloride ([place] Nasal [place] -) 2 spray NS BID [facility] Last Admin: 08/28/17 09:44 Dose: 2 sprays Tiotropium [place] (Spiriva -) 1 puff IH DAILY [facility] Last Admin: 08/28/17 09:44 Dose: Not Given Valsartan (Diovan -) 160 mg PO DAILY [facility] Last Admin: 08/28/17 09:43 Dose: 160 mg - Objective Vital Signs: Vital Signs Temperature 97.9 F 08/28/17 10:00 Pulse Rate 100 H 08/28/17 11:36 Respiratory Rate 18 08/28/17 10:00 Blood Pressure 119/53 08/28/17 10:00 O2 Sat by Pulse Oximetry (%) 97 08/28/17 11:36 Constitutional: Yes: Well Nourished, Calm, Obese Eyes: Yes: WNL HENT: Yes: WNL Neck: Yes: WNL Cardiovascular: Yes: Regular Rate and Rhythm, S1, S2 Respiratory: Yes: Rhonchi (SCATTERED WHEEZES BILATERALLY), Wheezes Gastrointestinal: Yes: Normal Bowel Sounds, Soft Extremities: Yes: WNL Edema: Yes Problem List - Problems (1) SOB (shortness of breath) Code(s): R06.02 - SHORTNESS OF BREATH (2) Acute on chronic respiratory failure with hypoxia and hypercapnia Code(s): J96.21 - ACUTE AND CHRONIC RESPIRATORY FAILURE WITH HYPOXIA J96.22 - ACUTE AND CHRONIC RESPIRATORY FAILURE WITH HYPERCAPNIA (3) Anemia Code(s): D64.9 - ANEMIA, UNSPECIFIED (4) CHF (congestive heart failure) Code(s): I50.9 - HEART FAILURE, UNSPECIFIED (5) COPD exacerbation Code(s): J44.1 - CHRONIC OBSTRUCTIVE PULMONARY DISEASE W (ACUTE) EXACERBATION (6) Chronic diastolic (congestive) heart failure Code(s): I50.32 - CHRONIC DIASTOLIC (CONGESTIVE) HEART FAILURE (7) Coronary artery disease Code(s): I25.10 - ATHSCL HEART DISEASE OF [place] CORONARY ARTERY W/O ANG PCTRS (8) History of pulmonary embolism Code(s): Z86.711 - PERSONAL HISTORY OF PULMONARY EMBOLISM (9) Morbid obesity Code(s): E66.01 - MORBID (SEVERE) OBESITY DUE TO EXCESS CALORIES (10) Pulmonary hypertension Code(s): I27.2 - OTHER SECONDARY PULMONARY HYPERTENSION * DO NOT USE * Assessment/Plan IMP ACUTE ON CHRONIC HYPOXEMIC/HYPERCAPNEIC RESPIRATORY FAILURE END STAGE COPD O2 DEPENDENT WITH ACUTE EXACERBATION URI DIASTOLIC HF PULMONARY HTN H/O RECURRENT PULMONARY EMBOLI HTN MORBID OBESITY PLAN CONTINUE IV STEROIDS 40Q6 SUPPLEMENTAL O2 INHALED BRONCHODILATORS NIPPV NEEDED DIURETICS DR FOX Problem List - Problems (1) SOB (shortness of breath) Code(s): R06.02 - SHORTNESS OF BREATH (2) Acute on chronic respiratory failure with hypoxia and hypercapnia Code(s): J96.21 - ACUTE AND CHRONIC RESPIRATORY FAILURE WITH HYPOXIA J96.22 - ACUTE AND CHRONIC RESPIRATORY FAILURE WITH HYPERCAPNIA (3) Anemia Code(s): D64.9 - ANEMIA, UNSPECIFIED (4) CHF (congestive heart failure) Code(s): I50.9 - HEART FAILURE, UNSPECIFIED (5) COPD exacerbation Code(s): J44.1 - CHRONIC OBSTRUCTIVE PULMONARY DISEASE W (ACUTE) EXACERBATION (6) Chronic diastolic (congestive) heart failure Code(s): I50.32 - CHRONIC DIASTOLIC (CONGESTIVE) HEART FAILURE (7) Coronary artery disease Code(s): I25.10 - ATHSCL HEART DISEASE OF [place] CORONARY ARTERY W/O ANG PCTRS (8) History of pulmonary embolism Code(s): Z86.711 - PERSONAL HISTORY OF PULMONARY EMBOLISM (9) Morbid obesity Code(s): E66.01 - MORBID (SEVERE) OBESITY DUE TO EXCESS CALORIES (10) Pulmonary hypertension Code(s): I27.2 - OTHER SECONDARY PULMONARY HYPERTENSION * DO NOT USE *
--- NOTE | 2017-08-28 18:24 | PN ---
Progress Note (short form) - Note Progress Note: ENT pt states her hearing is the same, better in right ear, not as good in left no further nasal bleeding reports right eye bleeding (subconjunctival hemorrhage) but no change in vision or pain also reports bleeding per rectum (reports hx hemorrhoids) PE NAD right subconjunctival hemorrhage nose: no bleeding, nasal cannnulae in place hearing grossly WNL for hearing voice over television at moderate volume Impression: subjective hearing loss left ear serous otitis media right ear epistaxis, resolved dry nose from nasal oxygen right subconjunctival hemorrhage, acute rectal bleeding Recommend: continue nasal moisture to office after discharge for complete audiogram new subconjunctival hemorrhage right eye, consider Ophthalmology consultation if pain or change in vision rectal bleeding - evaluation as per medical team Sarthak Gonzalez MD FACS. Problem List - Problems (1) Hearing loss in left ear Code(s): H91.92 - UNSPECIFIED HEARING LOSS, LEFT EAR Qualifiers: Hearing loss type: unspecified Qualified Code(s): H91.92 - Unspecified hearing loss, left ear; H91.92 - Unspecified hearing loss, left ear (2) Epistaxis, recurrent Code(s): R04.0 - EPISTAXIS
--- NOTE | 2017-08-28 18:51 | PN ---
Progress Note, Physician History of Present Illness: (+) Rt eye conjunctival hemorrhage - Current Medication List Current Medications: Active Medications Acetaminophen (Tylenol -) 650 mg PO TID PRN PRN Reason: PAIN Last Admin: 08/25/17 09:42 Dose: 650 mg Albuterol/Ipratropium (Duoneb -) 1 amp NEB Q6H PRN PRN Reason: SHORTNESS OF BREATH Last Admin: 08/28/17 11:37 Dose: 1 amp Aspirin (Asa -) 81 mg PO DAILY [facility] Last Admin: 08/28/17 09:43 Dose: 81 mg Budesonide/Formoterol Fumarate (Symbicort 160/4.5mcg -) 1 puff IH BID [facility] Last Admin: 08/28/17 09:44 Dose: 1 puff Cholecalciferol (Vitamin D3 -) 2,000 unit PO DAILY [facility] Last Admin: 08/28/17 09:43 Dose: 2,000 unit Ferrous Sulfate (Feosol -) 325 mg PO TIDCM [facility] Last Admin: 08/28/17 17:35 Dose: 325 mg Furosemide (Lasix Injection -) 40 mg IVPUSH DAILY [facility] Last Admin: 08/28/17 09:43 Dose: 40 mg Hydrocortisone (Anusol 2.5% Hc Cream -) 1 applic TP BID [facility] Last Admin: 08/28/17 09:43 Dose: 1 applic Insulin Aspart (Novolog Vial Sliding Scale -) 1 vial SQ ACHS [facility] PRN Reason: Protocol Last Admin: 08/28/17 17:35 Dose: 2 units Meclizine HCl (Antivert -) 12.5 mg PO BID [facility] Last Admin: 08/28/17 09:43 Dose: 12.5 mg Methylprednisolone Sodium Succinate (Solu-Medrol -) 40 mg IVPUSH Q6H-IV [facility] Last Admin: 08/28/17 14:58 Dose: 40 mg Nifedipine (Procardia Xl -) 30 mg PO DAILY [facility] Last Admin: 08/28/17 09:43 Dose: 30 mg Non-Formulary Medication (Cyclosporine [Restasis]) 1 each OP BID [facility] Nystatin (Nystop Powder -) 1 applic TP BID [facility] Last Admin: 08/28/17 09:43 Dose: 1 applic Nystatin (Nystatin Oral Suspension -) 500,000 units PO TID [facility] Last Admin: 08/28/17 14:56 Dose: 500,000 units Pantoprazole Sodium (Protonix -) 40 mg PO DAILY [facility] Last Admin: 08/28/17 09:43 Dose: 40 mg Rosuvastatin Calcium (Crestor -) 10 mg PO HS [facility] Last Admin: 08/27/17 21:31 Dose: 10 mg Senna (Senna -) 1 tab PO BID [facility] Last Admin: 08/28/17 09:43 Dose: 1 tab Sodium Chloride ([place] Nasal [place] -) 2 spray NS BID [facility] Last Admin: 08/28/17 09:44 Dose: 2 sprays Tiotropium [place] (Spiriva -) 1 puff IH DAILY [facility] Last Admin: 08/28/17 09:44 Dose: Not Given Valsartan (Diovan -) 160 mg PO DAILY [facility] Last Admin: 08/28/17 09:43 Dose: 160 mg - Objective Vital Signs: Vital Signs Temperature 98.6 F 08/28/17 14:32 Pulse Rate 104 H 08/28/17 14:32 Respiratory Rate 24 08/28/17 14:32 Blood Pressure 140/77 08/28/17 14:32 O2 Sat by Pulse Oximetry (%) 97 08/28/17 11:36 Constitutional: Yes: Well Nourished HENT: Yes: WNL Neck: Yes: WNL, Supple Cardiovascular: Yes: WNL, Regular Rate and Rhythm Respiratory: Yes: Diminished, Wheezes Gastrointestinal: Yes: WNL, Normal Bowel Sounds, Soft, Abdomen, Obese Edema: LLE: Trace, RLE: Trace Labs: CBC, BMP 08/27/17 06:00 08/27/17 06:00 INR, PTT INR 2.81 (0.82-1.09) H 08/28/17 07:12 Problem List - Problems (1) COPD exacerbation Assessment/Plan: Cont IV solumedrol at same dose Cont nebulizers/spiriva/symbicort Code(s): J44.1 - CHRONIC OBSTRUCTIVE PULMONARY DISEASE W (ACUTE) EXACERBATION (2) HLD (hyperlipidemia) Assessment/Plan: Cont crestor Code(s): E78.5 - HYPERLIPIDEMIA, UNSPECIFIED (3) Conjunctival hemorrhage of right eye Assessment/Plan: Cont to monitor Code(s): H11.31 - CONJUNCTIVAL HEMORRHAGE, RIGHT EYE (4) Chronic diastolic (congestive) heart failure Assessment/Plan: Cont lasix Monitor electrolytes Code(s): I50.32 - CHRONIC DIASTOLIC (CONGESTIVE) HEART FAILURE (5) Hypertension Assessment/Plan: BP stable Cont procardia/diovan Code(s): I10 - ESSENTIAL (PRIMARY) HYPERTENSION (6) History of pulmonary embolism Assessment/Plan: Monitor PT/inr Cont coumadin Code(s): Z86.711 - PERSONAL HISTORY OF PULMONARY EMBOLISM (7) DVT (deep venous thrombosis) Assessment/Plan: Monitor PT/inr Code(s): I82.409 - ACUTE EMBOLISM AND THOMBOS UNSP DEEP VN UNSP LOWER EXTREMITY (8) Hemorrhoid Assessment/Plan: Cont anusol Code(s): K64.9 - UNSPECIFIED HEMORRHOIDS (9) Coronary artery disease Code(s): I25.10 - ATHSCL HEART DISEASE OF [place] CORONARY ARTERY W/O ANG PCTRS (10) Morbid obesity Code(s): E66.01 - MORBID (SEVERE) OBESITY DUE TO EXCESS CALORIES
[2017-08-28] MEDS: WARFARIN NA 3 MG TABLET PO SCH (19:03)
[2017-08-28] MEDS: ROSUVASTATIN CA 10 MG TABLET (FP) PO SCH (22:50)
[2017-08-29] MEDS: methylPREDNISolone NA SUCC 40 MG/1 ML VIAL IVPUSH SCH ×4 (03:15→22:59)
[2017-08-29] MEDS: INSULIN SLIDING SCALE (NOVOLOG) 1 VIAL SQ SCH ×4 (06:32→23:05)
[2017-08-29] MEDS: NYSTATIN 500,000 UNITS/5 ML SUSPENSION PO SCH ×3 (06:32→23:00)
[2017-08-29] MEDS: ALBUTEROL SO4 2.5/IPRATROPIUM 0.5 INH SOL 3 ML VIAL.NEB. NEB PRN ×4 (06:45→23:10)
[2017-08-29 08:17] LABS: INR 2.66 (0.82-1.09); PROTHROMBIN TIME (PATIENT) 30.1 SEC (9.98-11.88)
[2017-08-29] MEDS ORDERED: PT OWN MED DRAWER 7, Y5N ONE ×3 (08:35→19:13)
[2017-08-29] MEDS: FERROUS SO4 325 MG TABLET (FP) PO SCH ×3 (08:58→17:42)
[2017-08-29] MEDS: NIFEdipine E.R. 30 MG TABLET (FP) PO SCH (09:16)
[2017-08-29] MEDS: BUDESONIDE/FORMETEROL FUMARATE 160/4.5 mcg INHALER IH SCH ×2 (09:16→23:00)
[2017-08-29] MEDS: VALSARTAN 160 MG TABLET (UD) PO SCH (09:16)
[2017-08-29] MEDS: MECLIZINE HCL 12.5 MG TABLET PO SCH ×2 (09:16→22:59)
[2017-08-29] MEDS: PANTOPRAZOLE 40 MG TABLET (FP) PO SCH (09:16)
[2017-08-29] MEDS: ASPIRIN 81 MG CHEWABLE TABLETS PO SCH (09:16)
[2017-08-29] MEDS: SENNOSIDES 8.6MG TABLET (FP) PO SCH ×2 (09:16→22:59)
[2017-08-29] MEDS: CHOLECALCIFEROL (VITAMIN D3) 1,000 UNIT TABLET (FP) PO SCH (09:16)
[2017-08-29] MEDS: TIOTROPIUM BROMIDE 18 MCG/INH (DEVICE W/ 5 CAPSULES) IH SCH (09:19)
[2017-08-29] MEDS: HYDROCORTISONE 2.5% TOPICAL CREAM 30 GM TUBE TP SCH ×2 (09:22→22:59)
[2017-08-29] MEDS: FUROSEMIDE 40 MG/4 ML INJECTABLE VIAL IVPUSH SCH (09:22)
[2017-08-29] MEDS: NYSTATIN POWDER 100,000 UNITS/GM - 15 GM TOPICAL POWDER TP SCH ×2 (09:22→22:59)
[2017-08-29] MEDS: SODIUM CHLORIDE NASAL SPRAY 44 ML BOTTLE NS SCH ×2 (09:23→23:00)
--- NOTE | 2017-08-29 10:42 | PN ---
Progress Note, Physician History of Present Illness: seen and examined today in nad. no new complaints. states her sob is slightly better today, edema resolved. shaky from steroids. - Current Medication List Current Medications: Active Medications Acetaminophen (Tylenol -) 650 mg PO TID PRN PRN Reason: PAIN Last Admin: 08/25/17 09:42 Dose: 650 mg Albuterol/Ipratropium (Duoneb -) 1 amp NEB Q6H PRN PRN Reason: SHORTNESS OF BREATH Last Admin: 08/29/17 06:45 Dose: 1 amp Aspirin (Asa -) 81 mg PO DAILY [facility] Last Admin: 08/29/17 09:16 Dose: 81 mg Budesonide/Formoterol Fumarate (Symbicort 160/4.5mcg -) 1 puff IH BID [facility] Last Admin: 08/29/17 09:16 Dose: 1 puff Cholecalciferol (Vitamin D3 -) 2,000 unit PO DAILY [facility] Last Admin: 08/29/17 09:16 Dose: 2,000 unit Ferrous Sulfate (Feosol -) 325 mg PO TIDCM [facility] Last Admin: 08/29/17 08:58 Dose: 325 mg Furosemide (Lasix Injection -) 40 mg IVPUSH DAILY [facility] Last Admin: 08/29/17 09:22 Dose: 40 mg Hydrocortisone (Anusol 2.5% Hc Cream -) 1 applic TP BID [facility] Last Admin: 08/29/17 09:22 Dose: 1 applic Insulin Aspart (Novolog Vial Sliding Scale -) 1 vial SQ ACHS [facility] PRN Reason: Protocol Last Admin: 08/29/17 06:32 Dose: 4 units Meclizine HCl (Antivert -) 12.5 mg PO BID [facility] Last Admin: 08/29/17 09:16 Dose: 12.5 mg Methylprednisolone Sodium Succinate (Solu-Medrol -) 40 mg IVPUSH Q6H-IV [facility] Last Admin: 08/29/17 09:16 Dose: 40 mg Nifedipine (Procardia Xl -) 30 mg PO DAILY [facility] Last Admin: 08/29/17 09:16 Dose: 30 mg Non-Formulary Medication (Cyclosporine [Restasis]) 1 each OP BID [facility] Nystatin (Nystop Powder -) 1 applic TP BID [facility] Last Admin: 08/29/17 09:22 Dose: 1 applic Nystatin (Nystatin Oral Suspension -) 500,000 units PO TID [facility] Last Admin: 08/29/17 06:32 Dose: 500,000 units Pantoprazole Sodium (Protonix -) 40 mg PO DAILY [facility] Last Admin: 08/29/17 09:16 Dose: 40 mg Rosuvastatin Calcium (Crestor -) 10 mg PO HS [facility] Last Admin: 08/28/17 22:50 Dose: 10 mg Senna (Senna -) 1 tab PO BID [facility] Last Admin: 08/29/17 09:16 Dose: 1 tab Sodium Chloride ([place] Nasal [place] -) 2 spray NS BID [facility] Last Admin: 08/29/17 09:23 Dose: 2 sprays Tiotropium [place] (Spiriva -) 1 puff IH DAILY [facility] Last Admin: 08/29/17 09:19 Dose: Not Given Valsartan (Diovan -) 160 mg PO DAILY [facility] Last Admin: 08/29/17 09:16 Dose: 160 mg Warfarin Sodium (Coumadin -) 3 mg PO DAILY@1800 [facility] Last Admin: 08/28/17 19:03 Dose: 3 mg - Objective Vital Signs: Vital Signs Temperature 98.6 F 08/29/17 06:00 Pulse Rate 68 08/29/17 06:00 Respiratory Rate 20 08/29/17 06:00 Blood Pressure 128/68 08/29/17 06:00 O2 Sat by Pulse Oximetry (%) 98 08/28/17 21:00 Constitutional: Yes: No Distress, Calm, Obese Eyes: Yes: Other (conjunctival hemorrhage) HENT: Yes: Atraumatic, Normocephalic Neck: Yes: Supple, Trachea Midline Cardiovascular: Yes: Regular Rate and Rhythm, S1, S2. No: Bradycardia, Tachycardia, Pulse Irregular, Bruit, JVD, Gallop, Murmur, Rub, S3, S4, Varicosities Respiratory: Yes: Regular, Diminished, Wheezes. No: Rales, Rhonchi, SOB Gastrointestinal: Yes: Normal Bowel Sounds, Soft. No: Distention, Tenderness Extremities: Yes: WNL Edema: No Peripheral Pulses WNL: Yes Peripheral Pulses: Left Doralis Pedis: 2+, Right Dorsalis Pedis: 2+ Neurological: Yes: Alert, Oriented Psychiatric: Yes: Alert, Oriented Labs: CBC, BMP 08/27/17 06:00 08/27/17 06:00 INR, PTT INR 2.66 (0.82-1.09) H 08/29/17 06:30 - ....Imaging Chest X-ray: Report Reviewed, Image Reviewed EKG: Report Reviewed, Image Reviewed Other: Report Reviewed, Image Reviewed Assessment/Plan AECOPD Acute on chronic diastolic CHF, mild exacerbation History of PE on coumadin REC: AE COPD Continue nebs, supp. O2 and steroid taper as per Pulmonary. INR therapeutic for PE, goal 2-3 HTN is adequately controlled on valsartan, nifedipine, and Lasix Currently euvolemic, she has been continued on IV Lasix as she is receiving steroids and has a tendency to retain fluids on steroids, if she is to remain on IV Lasix would follow daily labs for bun/creat, electrolytes and replete as needed and monitor I/Os and daily weights
--- NOTE | 2017-08-29 10:44 | PN ---
Progress Note, Physician History of Present Illness: stable feels a little better still some difficuilty breathing - Current Medication List Current Medications: Active Medications Acetaminophen (Tylenol -) 650 mg PO TID PRN PRN Reason: PAIN Last Admin: 08/25/17 09:42 Dose: 650 mg Albuterol/Ipratropium (Duoneb -) 1 amp NEB Q6H PRN PRN Reason: SHORTNESS OF BREATH Last Admin: 08/29/17 06:45 Dose: 1 amp Aspirin (Asa -) 81 mg PO DAILY [facility] Last Admin: 08/29/17 09:16 Dose: 81 mg Budesonide/Formoterol Fumarate (Symbicort 160/4.5mcg -) 1 puff IH BID [facility] Last Admin: 08/29/17 09:16 Dose: 1 puff Cholecalciferol (Vitamin D3 -) 2,000 unit PO DAILY [facility] Last Admin: 08/29/17 09:16 Dose: 2,000 unit Ferrous Sulfate (Feosol -) 325 mg PO TIDCM [facility] Last Admin: 08/29/17 08:58 Dose: 325 mg Furosemide (Lasix Injection -) 40 mg IVPUSH DAILY [facility] Last Admin: 08/29/17 09:22 Dose: 40 mg Hydrocortisone (Anusol 2.5% Hc Cream -) 1 applic TP BID [facility] Last Admin: 08/29/17 09:22 Dose: 1 applic Insulin Aspart (Novolog Vial Sliding Scale -) 1 vial SQ ACHS [facility] PRN Reason: Protocol Last Admin: 08/29/17 06:32 Dose: 4 units Meclizine HCl (Antivert -) 12.5 mg PO BID [facility] Last Admin: 08/29/17 09:16 Dose: 12.5 mg Methylprednisolone Sodium Succinate (Solu-Medrol -) 40 mg IVPUSH Q6H-IV [facility] Last Admin: 08/29/17 09:16 Dose: 40 mg Nifedipine (Procardia Xl -) 30 mg PO DAILY [facility] Last Admin: 08/29/17 09:16 Dose: 30 mg Non-Formulary Medication (Cyclosporine [Restasis]) 1 each OP BID [facility] Nystatin (Nystop Powder -) 1 applic TP BID [facility] Last Admin: 08/29/17 09:22 Dose: 1 applic Nystatin (Nystatin Oral Suspension -) 500,000 units PO TID [facility] Last Admin: 08/29/17 06:32 Dose: 500,000 units Pantoprazole Sodium (Protonix -) 40 mg PO DAILY [facility] Last Admin: 08/29/17 09:16 Dose: 40 mg Rosuvastatin Calcium (Crestor -) 10 mg PO HS [facility] Last Admin: 08/28/17 22:50 Dose: 10 mg Senna (Senna -) 1 tab PO BID [facility] Last Admin: 08/29/17 09:16 Dose: 1 tab Sodium Chloride ([place] Nasal [place] -) 2 spray NS BID [facility] Last Admin: 08/29/17 09:23 Dose: 2 sprays Tiotropium [place] (Spiriva -) 1 puff IH DAILY [facility] Last Admin: 08/29/17 09:19 Dose: Not Given Valsartan (Diovan -) 160 mg PO DAILY [facility] Last Admin: 08/29/17 09:16 Dose: 160 mg Warfarin Sodium (Coumadin -) 3 mg PO DAILY@1800 [facility] Last Admin: 08/28/17 19:03 Dose: 3 mg - Objective Vital Signs: Vital Signs Temperature 98.6 F 08/29/17 06:00 Pulse Rate 68 08/29/17 06:00 Respiratory Rate 20 08/29/17 06:00 Blood Pressure 128/68 08/29/17 06:00 O2 Sat by Pulse Oximetry (%) 98 08/28/17 21:00 Constitutional: Yes: No Distress, Calm, Obese Cardiovascular: Yes: S1, S2 Respiratory: Yes: On Nasal O2, Poor Air Entry, Wheezes Gastrointestinal: Yes: Normal Bowel Sounds, Soft Musculoskeletal: Yes: WNL Extremities: Yes: WNL Neurological: Yes: Alert, Oriented Psychiatric: Yes: Alert, Oriented Labs: CBC, BMP 08/27/17 06:00 08/27/17 06:00 INR, PTT INR 2.66 (0.82-1.09) H 08/29/17 06:30 Assessment/Plan Problem List - Problems (1) SOB (shortness of breath) Code(s): R06.02 - SHORTNESS OF BREATH (2) Acute on chronic respiratory failure with hypoxia and hypercapnia Code(s): J96.21 - ACUTE AND CHRONIC RESPIRATORY FAILURE WITH HYPOXIA J96.22 - ACUTE AND CHRONIC RESPIRATORY FAILURE WITH HYPERCAPNIA (3) Anemia Code(s): D64.9 - ANEMIA, UNSPECIFIED (4) CHF (congestive heart failure) Code(s): I50.9 - HEART FAILURE, UNSPECIFIED (5) COPD exacerbation Code(s): J44.1 - CHRONIC OBSTRUCTIVE PULMONARY DISEASE W (ACUTE) EXACERBATION (6) Chronic diastolic (congestive) heart failure Code(s): I50.32 - CHRONIC DIASTOLIC (CONGESTIVE) HEART FAILURE (7) Coronary artery disease Code(s): I25.10 - ATHSCL HEART DISEASE OF [place] CORONARY ARTERY W/O ANG PCTRS (8) History of pulmonary embolism Code(s): Z86.711 - PERSONAL HISTORY OF PULMONARY EMBOLISM (9) Morbid obesity Code(s): E66.01 - MORBID (SEVERE) OBESITY DUE TO EXCESS CALORIES (10) Pulmonary hypertension Code(s): I27.2 - OTHER SECONDARY PULMONARY HYPERTENSION * DO NOT USE * plan after looing at the picture and 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
--- NOTE | 2017-08-29 14:02 | PN ---
Progress Note, Physician History of Present Illness: PULMONARY ALET ,FEELING BETTER TODAY,LESS DYSPNEIC - Current Medication List Current Medications: Active Medications Acetaminophen (Tylenol -) 650 mg PO TID PRN PRN Reason: PAIN Last Admin: 08/25/17 09:42 Dose: 650 mg Albuterol/Ipratropium (Duoneb -) 1 amp NEB Q6H PRN PRN Reason: SHORTNESS OF BREATH Last Admin: 08/29/17 11:00 Dose: 1 amp Aspirin (Asa -) 81 mg PO DAILY [facility] Last Admin: 08/29/17 09:16 Dose: 81 mg Budesonide/Formoterol Fumarate (Symbicort 160/4.5mcg -) 1 puff IH BID [facility] Last Admin: 08/29/17 09:16 Dose: 1 puff Cholecalciferol (Vitamin D3 -) 2,000 unit PO DAILY [facility] Last Admin: 08/29/17 09:16 Dose: 2,000 unit Ferrous Sulfate (Feosol -) 325 mg PO TIDCM [facility] Last Admin: 08/29/17 12:33 Dose: 325 mg Furosemide (Lasix Injection -) 40 mg IVPUSH DAILY [facility] Last Admin: 08/29/17 09:22 Dose: 40 mg Hydrocortisone (Anusol 2.5% Hc Cream -) 1 applic TP BID [facility] Last Admin: 08/29/17 09:22 Dose: 1 applic Insulin Aspart (Novolog Vial Sliding Scale -) 1 vial SQ ACHS [facility] PRN Reason: Protocol Last Admin: 08/29/17 12:33 Dose: 6 units Meclizine HCl (Antivert -) 12.5 mg PO BID [facility] Last Admin: 08/29/17 09:16 Dose: 12.5 mg Methylprednisolone Sodium Succinate (Solu-Medrol -) 40 mg IVPUSH Q6H-IV [facility] Last Admin: 08/29/17 09:16 Dose: 40 mg Nifedipine (Procardia Xl -) 30 mg PO DAILY [facility] Last Admin: 08/29/17 09:16 Dose: 30 mg Non-Formulary Medication (Cyclosporine [Restasis]) 1 each OP BID [facility] Nystatin (Nystop Powder -) 1 applic TP BID [facility] Last Admin: 08/29/17 09:22 Dose: 1 applic Nystatin (Nystatin Oral Suspension -) 500,000 units PO TID [facility] Last Admin: 08/29/17 06:32 Dose: 500,000 units Pantoprazole Sodium (Protonix -) 40 mg PO DAILY [facility] Last Admin: 08/29/17 09:16 Dose: 40 mg Rosuvastatin Calcium (Crestor -) 10 mg PO HS [facility] Last Admin: 08/28/17 22:50 Dose: 10 mg Senna (Senna -) 1 tab PO BID [facility] Last Admin: 08/29/17 09:16 Dose: 1 tab Sodium Chloride ([place] Nasal [place] -) 2 spray NS BID [facility] Last Admin: 08/29/17 09:23 Dose: 2 sprays Tiotropium [place] (Spiriva -) 1 puff IH DAILY [facility] Last Admin: 08/29/17 09:19 Dose: Not Given Valsartan (Diovan -) 160 mg PO DAILY [facility] Last Admin: 08/29/17 09:16 Dose: 160 mg Warfarin Sodium (Coumadin -) 3 mg PO DAILY@1800 [facility] Last Admin: 08/28/17 19:03 Dose: 3 mg - Objective Vital Signs: Vital Signs Temperature 98.6 F 08/29/17 06:00 Pulse Rate 104 H 08/29/17 11:38 Respiratory Rate 20 08/29/17 06:00 Blood Pressure 128/68 08/29/17 06:00 O2 Sat by Pulse Oximetry (%) 97 08/29/17 11:38 Constitutional: Yes: Calm, Obese Eyes: Yes: WNL HENT: Yes: WNL Neck: Yes: WNL Cardiovascular: Yes: Regular Rate and Rhythm, S1, S2 Respiratory: Yes: Diminished (FEW WHEEZES) Gastrointestinal: Yes: Normal Bowel Sounds, Soft Extremities: Yes: WNL Edema: No Labs: CBC, BMP 08/27/17 06:00 Problem List - Problems (1) SOB (shortness of breath) Code(s): R06.02 - SHORTNESS OF BREATH (2) Acute on chronic respiratory failure with hypoxia and hypercapnia Code(s): J96.21 - ACUTE AND CHRONIC RESPIRATORY FAILURE WITH HYPOXIA J96.22 - ACUTE AND CHRONIC RESPIRATORY FAILURE WITH HYPERCAPNIA (3) Anemia Code(s): D64.9 - ANEMIA, UNSPECIFIED (4) CHF (congestive heart failure) Code(s): I50.9 - HEART FAILURE, UNSPECIFIED (5) COPD exacerbation Code(s): J44.1 - CHRONIC OBSTRUCTIVE PULMONARY DISEASE W (ACUTE) EXACERBATION (6) Chronic diastolic (congestive) heart failure Code(s): I50.32 - CHRONIC DIASTOLIC (CONGESTIVE) HEART FAILURE (7) Coronary artery disease Code(s): I25.10 - ATHSCL HEART DISEASE OF [place] CORONARY ARTERY W/O ANG PCTRS (8) History of pulmonary embolism Code(s): Z86.711 - PERSONAL HISTORY OF PULMONARY EMBOLISM (9) Morbid obesity Code(s): E66.01 - MORBID (SEVERE) OBESITY DUE TO EXCESS CALORIES (10) Pulmonary hypertension Code(s): I27.2 - OTHER SECONDARY PULMONARY HYPERTENSION * DO NOT USE * Assessment/Plan IMP ACUTE ON CHRONIC HYPOXEMIC/HYPERCAPNEIC RESPIRATORY FAILURE END STAGE COPD O2 DEPENDENT WITH ACUTE EXACERBATION URI DIASTOLIC HF PULMONARY HTN H/O RECURRENT PULMONARY EMBOLI HTN MORBID OBESITY PLAN CONTINUE IV STEROIDS 40Q6 SUPPLEMENTAL O2 INHALED BRONCHODILATORS NIPPV NEEDED DIURETICS DR FOX Problem List - Problems (1) SOB (shortness of breath) Code(s): R06.02 - SHORTNESS OF BREATH (2) Acute on chronic respiratory failure with hypoxia and hypercapnia Code(s): J96.21 - ACUTE AND CHRONIC RESPIRATORY FAILURE WITH HYPOXIA J96.22 - ACUTE AND CHRONIC RESPIRATORY FAILURE WITH HYPERCAPNIA (3) Anemia Code(s): D64.9 - ANEMIA, UNSPECIFIED (4) CHF (congestive heart failure) Code(s): I50.9 - HEART FAILURE, UNSPECIFIED (5) COPD exacerbation Code(s): J44.1 - CHRONIC OBSTRUCTIVE PULMONARY DISEASE W (ACUTE) EXACERBATION (6) Chronic diastolic (congestive) heart failure Code(s): I50.32 - CHRONIC DIASTOLIC (CONGESTIVE) HEART FAILURE (7) Coronary artery disease Code(s): I25.10 - ATHSCL HEART DISEASE OF [place] CORONARY ARTERY W/O ANG PCTRS (8) History of pulmonary embolism Code(s): Z86.711 - PERSONAL HISTORY OF PULMONARY EMBOLISM (9) Morbid obesity Code(s): E66.01 - MORBID (SEVERE) OBESITY DUE TO EXCESS CALORIES (10) Pulmonary hypertension Code(s): I27.2 - OTHER SECONDARY PULMONARY HYPERTENSION * DO NOT USE *
[2017-08-29 14:31] LABS: MCH 21.4 pg (25.7-33.7); MCHC 27.9 g/dl (32.0-36.0); MEAN CELL VOLUME 76.7 fl (80-96); MEAN PLT VOLUME 9.5 fl (7.5-11.1); PLATELET COUNT 332 K/MM3 (134-434); RDW 15.9 % (11.6-15.6)
[2017-08-29 14:34] LABS: WHITE BLOOD COUNT 32.2 K/mm3 (4.0-10.0)
[2017-08-29 14:59] LABS: INR 2.6 (0.82-1.09); PROTHROMBIN TIME (PATIENT) 29.4 SEC (9.98-11.88)
[2017-08-29 15:04] LABS: ALBUMIN 3.7 g/dl (3.4-5.0); ANION GAP 10 (8-16); CALCIUM 8.4 mg/dL (8.5-10.1); CO2 34 mmol/L (21-32); CREATININE 1.5 mg/dL (0.55-1.02); GLUCOSE,RANDOM 182 mg/dL (74-106); SGOT/AST 16 U/L (15-37); SGPT/ALT 34 U/L (12-78)
[2017-08-29 15:05] LABS: BILIRUBIN,TOTAL 0.7 mg/dL (0.2-1.0); TOT PROT 6.2 g/dl (6.4-8.2)
[2017-08-29 15:06] LABS: ALK PHOS 63 U/L (45-117)
[2017-08-29 15:35] LABS: TOTAL CELLS COUNTED 100
[2017-08-29 15:36] LABS: MYELOCYTE 1 % (0-2); PLATELET ESTIMATE ADEQUATE (NORMAL)
[2017-08-29] MEDS ORDERED: INSULIN (NOVOLOG) ASPART 100 UNITS/ML 10ML VIAL ONE ×2 (17:36→19:12)
[2017-08-29] MEDS: WARFARIN NA 3 MG TABLET PO SCH (17:42)
--- NOTE | 2017-08-29 17:43 | PN ---
Progress Note, Physician History of Present Illness: (+) Rt eye conjunctival hemorrhage - Current Medication List Current Medications: Active Medications Acetaminophen (Tylenol -) 650 mg PO TID PRN PRN Reason: PAIN Last Admin: 08/25/17 09:42 Dose: 650 mg Albuterol/Ipratropium (Duoneb -) 1 amp NEB Q6H PRN PRN Reason: SHORTNESS OF BREATH Last Admin: 08/29/17 11:00 Dose: 1 amp Aspirin (Asa -) 81 mg PO DAILY [facility] Last Admin: 08/29/17 09:16 Dose: 81 mg Budesonide/Formoterol Fumarate (Symbicort 160/4.5mcg -) 1 puff IH BID [facility] Last Admin: 08/29/17 09:16 Dose: 1 puff Cholecalciferol (Vitamin D3 -) 2,000 unit PO DAILY [facility] Last Admin: 08/29/17 09:16 Dose: 2,000 unit Ferrous Sulfate (Feosol -) 325 mg PO TIDCM [facility] Last Admin: 08/29/17 17:42 Dose: 325 mg Furosemide (Lasix Injection -) 40 mg IVPUSH DAILY [facility] Last Admin: 08/29/17 09:22 Dose: 40 mg Hydrocortisone (Anusol 2.5% Hc Cream -) 1 applic TP BID [facility] Last Admin: 08/29/17 09:22 Dose: 1 applic Insulin Aspart (Novolog Vial Sliding Scale -) 1 vial SQ ACHS [facility] PRN Reason: Protocol Last Admin: 08/29/17 17:42 Dose: 4 units Meclizine HCl (Antivert -) 12.5 mg PO BID [facility] Last Admin: 08/29/17 09:16 Dose: 12.5 mg Methylprednisolone Sodium Succinate (Solu-Medrol -) 40 mg IVPUSH Q6H-IV [facility] Last Admin: 08/29/17 15:42 Dose: 40 mg Nifedipine (Procardia Xl -) 30 mg PO DAILY [facility] Last Admin: 08/29/17 09:16 Dose: 30 mg Cyclosporine [ Restasis] 0.05% Eye Drops 1 each OU BID [place] Nystatin (Nystop Powder -) 1 applic TP BID [facility] Last Admin: 08/29/17 09:22 Dose: 1 applic Nystatin (Nystatin Oral Suspension -) 500,000 units PO TID [facility] Last Admin: 08/29/17 15:42 Dose: 500,000 units Pantoprazole Sodium (Protonix -) 40 mg PO DAILY [facility] Last Admin: 08/29/17 09:16 Dose: 40 mg Rosuvastatin Calcium (Crestor -) 10 mg PO HS [facility] Last Admin: 08/28/17 22:50 Dose: 10 mg Senna (Senna -) 1 tab PO BID [facility] Last Admin: 08/29/17 09:16 Dose: 1 tab Sodium Chloride ([place] Nasal [place] -) 2 spray NS BID [facility] Last Admin: 08/29/17 09:23 Dose: 2 sprays Tiotropium [place] (Spiriva -) 1 puff IH DAILY [facility] Last Admin: 08/29/17 09:19 Dose: Not Given Valsartan (Diovan -) 160 mg PO DAILY [facility] Last Admin: 08/29/17 09:16 Dose: 160 mg Warfarin Sodium (Coumadin -) 3 mg PO DAILY@1800 [facility] Last Admin: 08/29/17 17:42 Dose: 3 mg - Objective Vital Signs: Vital Signs Temperature 98.6 F 08/29/17 14:24 Pulse Rate 100 H 08/29/17 14:24 Respiratory Rate 21 08/29/17 14:24 Blood Pressure 125/57 08/29/17 14:24 O2 Sat by Pulse Oximetry (%) 97 08/29/17 11:38 Constitutional: Yes: Well Nourished HENT: Yes: WNL Neck: Yes: WNL, Supple Cardiovascular: Yes: WNL, Regular Rate and Rhythm Respiratory: Yes: Diminished, Wheezes Gastrointestinal: Yes: WNL, Normal Bowel Sounds, Soft, Abdomen, Obese Edema: LLE: Trace, RLE: Trace Labs: CBC, BMP 08/29/17 13:20 08/29/17 13:20 INR, PTT INR 2.60 (0.82-1.09) H 08/29/17 13:20 Problem List - Problems (1) COPD exacerbation Code(s): J44.1 - CHRONIC OBSTRUCTIVE PULMONARY DISEASE W (ACUTE) EXACERBATION (2) HLD (hyperlipidemia) Code(s): E78.5 - HYPERLIPIDEMIA, UNSPECIFIED (3) Chronic diastolic (congestive) heart failure Code(s): I50.32 - CHRONIC DIASTOLIC (CONGESTIVE) HEART FAILURE (4) Hypertension Code(s): I10 - ESSENTIAL (PRIMARY) HYPERTENSION (5) History of pulmonary embolism Code(s): Z86.711 - PERSONAL HISTORY OF PULMONARY EMBOLISM (6) DVT (deep venous thrombosis) Code(s): I82.409 - ACUTE EMBOLISM AND THOMBOS UNSP DEEP VN UNSP LOWER EXTREMITY (7) Hemorrhoid Code(s): K64.9 - UNSPECIFIED HEMORRHOIDS (8) Coronary artery disease Code(s): I25.10 - ATHSCL HEART DISEASE OF [place] CORONARY ARTERY W/O ANG PCTRS (9) Morbid obesity Code(s): E66.01 - MORBID (SEVERE) OBESITY DUE TO EXCESS CALORIES
[2017-08-29] MEDS: ROSUVASTATIN CA 10 MG TABLET (FP) PO SCH (22:59)
[2017-08-30] MEDS: methylPREDNISolone NA SUCC 40 MG/1 ML VIAL IVPUSH SCH ×4 (04:00→21:07)
[2017-08-30] MEDS: ALBUTEROL SO4 2.5/IPRATROPIUM 0.5 INH SOL 3 ML VIAL.NEB. NEB PRN ×2 (04:30→10:34)
[2017-08-30] MEDS: NYSTATIN 500,000 UNITS/5 ML SUSPENSION PO SCH ×3 (06:25→21:08)
[2017-08-30] MEDS: INSULIN SLIDING SCALE (NOVOLOG) 1 VIAL SQ SCH ×4 (06:29→22:25)
[2017-08-30] MEDS: FERROUS SO4 325 MG TABLET (FP) PO SCH ×3 (08:30→17:55)
[2017-08-30] MEDS: MECLIZINE HCL 12.5 MG TABLET PO SCH ×2 (11:22→21:08)
[2017-08-30] MEDS: VALSARTAN 160 MG TABLET (UD) PO SCH (11:22)
[2017-08-30] MEDS: FUROSEMIDE 40 MG/4 ML INJECTABLE VIAL IVPUSH SCH (11:22)
[2017-08-30] MEDS: ASPIRIN 81 MG CHEWABLE TABLETS PO SCH (11:22)
[2017-08-30] MEDS: CHOLECALCIFEROL (VITAMIN D3) 1,000 UNIT TABLET (FP) PO SCH (11:23)
[2017-08-30] MEDS: SENNOSIDES 8.6MG TABLET (FP) PO SCH ×2 (11:24→21:08)
[2017-08-30] MEDS: PANTOPRAZOLE 40 MG TABLET (FP) PO SCH (11:24)
[2017-08-30] MEDS: NIFEdipine E.R. 30 MG TABLET (FP) PO SCH (11:25)
[2017-08-30] MEDS: NYSTATIN POWDER 100,000 UNITS/GM - 15 GM TOPICAL POWDER TP SCH ×2 (11:25→21:09)
[2017-08-30] MEDS: SODIUM CHLORIDE NASAL SPRAY 44 ML BOTTLE NS SCH ×2 (11:27→21:09)
[2017-08-30] MEDS: TIOTROPIUM BROMIDE 18 MCG/INH (DEVICE W/ 5 CAPSULES) IH SCH (11:27)
[2017-08-30] MEDS: HYDROCORTISONE 2.5% TOPICAL CREAM 30 GM TUBE TP SCH ×2 (11:28→21:10)
--- NOTE | 2017-08-30 11:34 | PN ---
Progress Note, Physician History of Present Illness: seen and examined today in nad. feeling better today. no overnight events. no new complaints. - Current Medication List Current Medications: Active Medications Acetaminophen (Tylenol -) 650 mg PO TID PRN PRN Reason: PAIN Last Admin: 08/25/17 09:42 Dose: 650 mg Albuterol/Ipratropium (Duoneb -) 1 amp NEB Q6H PRN PRN Reason: SHORTNESS OF BREATH Last Admin: 08/30/17 10:34 Dose: 1 amp Aspirin (Asa -) 81 mg PO DAILY [facility] Last Admin: 08/29/17 09:16 Dose: 81 mg Budesonide/Formoterol Fumarate (Symbicort 160/4.5mcg -) 1 puff IH BID [facility] Last Admin: 08/29/17 23:00 Dose: 1 puff Cholecalciferol (Vitamin D3 -) 2,000 unit PO DAILY [facility] Last Admin: 08/29/17 09:16 Dose: 2,000 unit Ferrous Sulfate (Feosol -) 325 mg PO TIDCM [facility] Last Admin: 08/30/17 08:30 Dose: 325 mg Furosemide (Lasix Injection -) 40 mg IVPUSH DAILY [facility] Last Admin: 08/29/17 09:22 Dose: 40 mg Hydrocortisone (Anusol 2.5% Hc Cream -) 1 applic TP BID [facility] Last Admin: 08/29/17 22:59 Dose: 1 applic Insulin Aspart (Novolog Vial Sliding Scale -) 1 vial SQ ACHS [facility] PRN Reason: Protocol Last Admin: 08/30/17 06:29 Dose: 4 units Meclizine HCl (Antivert -) 12.5 mg PO BID [facility] Last Admin: 08/29/17 22:59 Dose: 12.5 mg Methylprednisolone Sodium Succinate (Solu-Medrol -) 40 mg IVPUSH Q6H-IV [facility] Last Admin: 08/30/17 08:30 Dose: 40 mg Nifedipine (Procardia Xl -) 30 mg PO DAILY [facility] Last Admin: 08/29/17 09:16 Dose: 30 mg Cyclosporine [ Restasis] 0.05% Eye Drops 1 each OU BID [facility] Last Admin: 08/29/17 22:59 Dose: 1 each Nystatin (Nystop Powder -) 1 applic TP BID [facility] Last Admin: 08/29/17 22:59 Dose: 1 applic Nystatin (Nystatin Oral Suspension -) 500,000 units PO TID [facility] Last Admin: 08/30/17 06:25 Dose: 500,000 units Pantoprazole Sodium (Protonix -) 40 mg PO DAILY [facility] Last Admin: 08/29/17 09:16 Dose: 40 mg Rosuvastatin Calcium (Crestor -) 10 mg PO HS [facility] Last Admin: 08/29/17 22:59 Dose: 10 mg Senna (Senna -) 1 tab PO BID [facility] Last Admin: 08/29/17 22:59 Dose: 1 tab Sodium Chloride ([place] Nasal [place] -) 2 spray NS BID [facility] Last Admin: 08/29/17 23:00 Dose: 2 sprays Tiotropium [place] (Spiriva -) 1 puff IH DAILY [facility] Last Admin: 08/29/17 09:19 Dose: Not Given Valsartan (Diovan -) 160 mg PO DAILY [facility] Last Admin: 08/29/17 09:16 Dose: 160 mg Warfarin Sodium (Coumadin -) 3 mg PO DAILY@1800 [facility] Last Admin: 08/29/17 17:42 Dose: 3 mg - Objective Vital Signs: Vital Signs Temperature 98.3 F 08/30/17 09:45 Pulse Rate 102 H 08/30/17 10:33 Respiratory Rate 20 08/30/17 09:45 Blood Pressure 136/77 08/30/17 09:45 O2 Sat by Pulse Oximetry (%) 92 L 08/30/17 10:33 Constitutional: Yes: No Distress, Calm, Obese Eyes: Yes: Conjunctiva Clear, EOM Intact, PERRL HENT: Yes: Atraumatic, Normocephalic Cardiovascular: Yes: Regular Rate and Rhythm, S1, S2. No: Bradycardia, Tachycardia, Pulse Irregular, Bruit, JVD, Gallop, Murmur, Rub, S3, Varicosities Respiratory: Yes: Regular, Diminished, On Nasal O2. No: Rales, Rhonchi, SOB, Wheezes Gastrointestinal: Yes: Normal Bowel Sounds, Soft. No: Distention, Tenderness Extremities: Yes: WNL Edema: No Peripheral Pulses WNL: Yes Peripheral Pulses: Left Doralis Pedis: 2+, Right Dorsalis Pedis: 2+ Integumentary: Yes: WNL Neurological: Yes: Alert, Oriented Psychiatric: Yes: Alert, Oriented Labs: CBC, BMP 08/29/17 13:20 08/29/17 13:20 INR, PTT INR 2.60 (0.82-1.09) H 08/29/17 13:20 - ....Imaging Chest X-ray: Report Reviewed, Image Reviewed EKG: Report Reviewed, Image Reviewed Other: Report Reviewed, Image Reviewed Assessment/Plan AECOPD Acute on chronic diastolic CHF, mild exacerbation History of PE on coumadin REC: AE COPD Continue nebs, supp. O2 and steroid taper as per Pulmonary. INR therapeutic for PE, goal 2-3 HTN is adequately controlled on valsartan, nifedipine, and Lasix Will transition to po Lasix as she is currently euvolemic, if she requires additional IV Lasix given ongoing steroids can be dosed prn Follow daily labs for bun/creat, electrolytes and replete as needed and monitor I/Os and daily weights
[2017-08-30] MEDS ORDERED: PT OWN MED DRAWER 7, Y5N ONE ×2 (11:40→12:01)
[2017-08-30] MEDS: BUDESONIDE/FORMETEROL FUMARATE 160/4.5 mcg INHALER IH SCH ×2 (11:42→21:08)
[2017-08-30] MEDS ORDERED: INSULIN (NOVOLOG) ASPART 100 UNITS/ML 10ML VIAL ONE ×2 (12:02→19:37)
--- NOTE | 2017-08-30 13:11 | PN ---
Progress Note, Physician History of Present Illness: PULMONARY ALERT,C/O INCREASED SOB TODAY,-CP,-COUGH - Current Medication List Current Medications: Active Medications Acetaminophen (Tylenol -) 650 mg PO TID PRN PRN Reason: PAIN Last Admin: 08/25/17 09:42 Dose: 650 mg Aspirin (Asa -) 81 mg PO DAILY [facility] Last Admin: 08/30/17 11:22 Dose: 81 mg Budesonide/Formoterol Fumarate (Symbicort 160/4.5mcg -) 1 puff IH BID [facility] Last Admin: 08/30/17 11:42 Dose: 1 puff Cholecalciferol (Vitamin D3 -) 2,000 unit PO DAILY [facility] Last Admin: 08/30/17 11:23 Dose: 2,000 unit Ferrous Sulfate (Feosol -) 325 mg PO TIDCM [facility] Last Admin: 08/30/17 11:24 Dose: 325 mg Furosemide (Lasix -) 40 mg PO DAILY [facility] Hydrocortisone (Anusol 2.5% Hc Cream -) 1 applic TP BID [facility] Last Admin: 08/30/17 11:28 Dose: 1 applic Insulin Aspart (Novolog Vial Sliding Scale -) 1 vial SQ ACHS [facility] PRN Reason: Protocol Last Admin: 08/30/17 12:06 Dose: 6 units Meclizine HCl (Antivert -) 12.5 mg PO BID [facility] Last Admin: 08/30/17 11:22 Dose: 12.5 mg Methylprednisolone Sodium Succinate (Solu-Medrol -) 40 mg IVPUSH Q6H-IV [facility] Last Admin: 08/30/17 08:30 Dose: 40 mg Nifedipine (Procardia Xl -) 30 mg PO DAILY [facility] Last Admin: 08/30/17 11:25 Dose: 30 mg Cyclosporine [ Restasis] 0.05% Eye Drops 1 each OU BID [facility] Last Admin: 08/29/17 22:59 Dose: 1 each Nystatin (Nystop Powder -) 1 applic TP BID [facility] Last Admin: 08/30/17 11:25 Dose: 1 applic Nystatin (Nystatin Oral Suspension -) 500,000 units PO TID [facility] Last Admin: 08/30/17 06:25 Dose: 500,000 units Pantoprazole Sodium (Protonix -) 40 mg PO DAILY [facility] Last Admin: 08/30/17 11:24 Dose: 40 mg Rosuvastatin Calcium (Crestor -) 10 mg PO HS [facility] Last Admin: 08/29/17 22:59 Dose: 10 mg Senna (Senna -) 1 tab PO BID [facility] Last Admin: 08/30/17 11:24 Dose: 1 tab Sodium Chloride ([place] Nasal [place] -) 2 spray NS BID [facility] Last Admin: 08/30/17 11:27 Dose: 2 sprays Tiotropium [place] (Spiriva -) 1 puff IH DAILY [facility] Last Admin: 08/30/17 11:27 Dose: 1 puff Valsartan (Diovan -) 160 mg PO DAILY [facility] Last Admin: 08/30/17 11:22 Dose: 160 mg Warfarin Sodium (Coumadin -) 3 mg PO DAILY@1800 [facility] Last Admin: 08/29/17 17:42 Dose: 3 mg - Objective Vital Signs: Vital Signs Temperature 98.3 F 08/30/17 09:45 Pulse Rate 102 H 08/30/17 10:33 Respiratory Rate 20 08/30/17 09:45 Blood Pressure 136/77 08/30/17 09:45 O2 Sat by Pulse Oximetry (%) 92 L 08/30/17 10:33 Constitutional: Yes: Calm, Obese Eyes: Yes: WNL HENT: Yes: WNL Neck: Yes: WNL Cardiovascular: Yes: Regular Rate and Rhythm, S1, S2 Respiratory: Yes: Diminished Gastrointestinal: Yes: Normal Bowel Sounds, Soft Extremities: Yes: WNL Edema: No Labs: CBC, BMP 08/29/17 13:20 08/29/17 13:20 INR, PTT INR 2.60 (0.82-1.09) H 08/29/17 13:20 Problem List - Problems (1) SOB (shortness of breath) Code(s): R06.02 - SHORTNESS OF BREATH (2) Acute on chronic respiratory failure with hypoxia and hypercapnia Code(s): J96.21 - ACUTE AND CHRONIC RESPIRATORY FAILURE WITH HYPOXIA J96.22 - ACUTE AND CHRONIC RESPIRATORY FAILURE WITH HYPERCAPNIA (3) Anemia Code(s): D64.9 - ANEMIA, UNSPECIFIED (4) CHF (congestive heart failure) Code(s): I50.9 - HEART FAILURE, UNSPECIFIED (5) COPD exacerbation Code(s): J44.1 - CHRONIC OBSTRUCTIVE PULMONARY DISEASE W (ACUTE) EXACERBATION (6) Chronic diastolic (congestive) heart failure Code(s): I50.32 - CHRONIC DIASTOLIC (CONGESTIVE) HEART FAILURE (7) Coronary artery disease Code(s): I25.10 - ATHSCL HEART DISEASE OF [place] CORONARY ARTERY W/O ANG PCTRS (8) History of pulmonary embolism Code(s): Z86.711 - PERSONAL HISTORY OF PULMONARY EMBOLISM (9) Morbid obesity Code(s): E66.01 - MORBID (SEVERE) OBESITY DUE TO EXCESS CALORIES (10) Pulmonary hypertension Code(s): I27.2 - OTHER SECONDARY PULMONARY HYPERTENSION * DO NOT USE * Assessment/Plan IMP ACUTE ON CHRONIC HYPOXEMIC/HYPERCAPNEIC RESPIRATORY FAILURE END STAGE COPD O2 DEPENDENT WITH ACUTE EXACERBATION URI DIASTOLIC HF PULMONARY HTN H/O RECURRENT PULMONARY EMBOLI HTN MORBID OBESITY PLAN CONTINUE IV STEROIDS 40Q8 SUPPLEMENTAL O2 INHALED BRONCHODILATORS NIPPV NEEDED DIURETICS DR FOX Problem List - Problems (1) SOB (shortness of breath) Code(s): R06.02 - SHORTNESS OF BREATH (2) Acute on chronic respiratory failure with hypoxia and hypercapnia Code(s): J96.21 - ACUTE AND CHRONIC RESPIRATORY FAILURE WITH HYPOXIA J96.22 - ACUTE AND CHRONIC RESPIRATORY FAILURE WITH HYPERCAPNIA (3) Anemia Code(s): D64.9 - ANEMIA, UNSPECIFIED (4) CHF (congestive heart failure) Code(s): I50.9 - HEART FAILURE, UNSPECIFIED (5) COPD exacerbation Code(s): J44.1 - CHRONIC OBSTRUCTIVE PULMONARY DISEASE W (ACUTE) EXACERBATION (6) Chronic diastolic (congestive) heart failure Code(s): I50.32 - CHRONIC DIASTOLIC (CONGESTIVE) HEART FAILURE (7) Coronary artery disease Code(s): I25.10 - ATHSCL HEART DISEASE OF [place] CORONARY ARTERY W/O ANG PCTRS (8) History of pulmonary embolism Code(s): Z86.711 - PERSONAL HISTORY OF PULMONARY EMBOLISM (9) Morbid obesity Code(s): E66.01 - MORBID (SEVERE) OBESITY DUE TO EXCESS CALORIES (10) Pulmonary hypertension Code(s): I27.2 - OTHER SECONDARY PULMONARY HYPERTENSION * DO NOT USE *
[2017-08-30] MEDS: CEFTRIAXONE 1 G/50 ML PREMIX 50 ML IVPB SCH (15:43)
[2017-08-30 16:32] LABS: INR 2.87 (0.82-1.09); PROTHROMBIN TIME (PATIENT) 32.4 SEC (9.98-11.88)
[2017-08-30] MEDS: WARFARIN NA 3 MG TABLET PO SCH (17:55)
[2017-08-30] MEDS: ROSUVASTATIN CA 10 MG TABLET (FP) PO SCH (21:08)
--- NOTE | 2017-08-30 22:08 | PN ---
Progress Note, Physician History of Present Illness: Pt w/ no new complaints - Current Medication List Current Medications: Active Medications Acetaminophen (Tylenol -) 650 mg PO TID PRN PRN Reason: PAIN Last Admin: 08/25/17 09:42 Dose: 650 mg Aspirin (Asa -) 81 mg PO DAILY [facility] Last Admin: 08/30/17 11:22 Dose: 81 mg Budesonide/Formoterol Fumarate (Symbicort 160/4.5mcg -) 1 puff IH BID [facility] Last Admin: 08/30/17 21:08 Dose: 1 puff Cholecalciferol (Vitamin D3 -) 2,000 unit PO DAILY [facility] Last Admin: 08/30/17 11:23 Dose: 2,000 unit Ferrous Sulfate (Feosol -) 325 mg PO TIDCM [facility] Last Admin: 08/30/17 17:55 Dose: 325 mg Furosemide (Lasix -) 40 mg PO DAILY [facility] Hydrocortisone (Anusol 2.5% Hc Cream -) 1 applic TP BID [facility] Last Admin: 08/30/17 21:10 Dose: 1 applic CEFTRIAXONE 1 G/50 ML PREMIX (Ceftriaxone 1 Gm-D5w Bag) 50 mls @ 100 mls/hr IVPB DAILY [facility] Last Admin: 08/30/17 15:43 Dose: 100 mls/hr Insulin Aspart (Novolog Vial Sliding Scale -) 1 vial SQ ACHS [facility] PRN Reason: Protocol Last Admin: 08/30/17 17:04 Dose: 4 units Meclizine HCl (Antivert -) 12.5 mg PO BID [facility] Last Admin: 08/30/17 21:08 Dose: 12.5 mg Methylprednisolone Sodium Succinate (Solu-Medrol -) 40 mg IVPUSH Q6H-IV [facility] Last Admin: 08/30/17 21:07 Dose: 40 mg Nifedipine (Procardia Xl -) 30 mg PO DAILY [facility] Last Admin: 08/30/17 11:25 Dose: 30 mg Cyclosporine [ Restasis] 0.05% Eye Drops 1 each OU BID [facility] Last Admin: 08/30/17 10:45 Dose: 1 each Nystatin (Nystop Powder -) 1 applic TP BID [facility] Last Admin: 08/30/17 21:09 Dose: 1 applic Nystatin (Nystatin Oral Suspension -) 500,000 units PO TID [facility] Last Admin: 08/30/17 21:08 Dose: 500,000 units Pantoprazole Sodium (Protonix -) 40 mg PO DAILY [facility] Last Admin: 08/30/17 11:24 Dose: 40 mg Rosuvastatin Calcium (Crestor -) 10 mg PO HS [facility] Last Admin: 08/30/17 21:08 Dose: 10 mg Senna (Senna -) 1 tab PO BID [facility] Last Admin: 08/30/17 21:08 Dose: 1 tab Sodium Chloride ([place] Nasal [place] -) 2 spray NS BID [facility] Last Admin: 08/30/17 21:09 Dose: 2 sprays Tiotropium [place] (Spiriva -) 1 puff IH DAILY [facility] Last Admin: 08/30/17 11:27 Dose: 1 puff Valsartan (Diovan -) 160 mg PO DAILY [facility] Last Admin: 08/30/17 11:22 Dose: 160 mg Warfarin Sodium (Coumadin -) 3 mg PO DAILY@1800 [facility] Last Admin: 08/30/17 17:55 Dose: 3 mg - Objective Vital Signs: Vital Signs Temperature 98.7 F 08/30/17 20:05 Pulse Rate 93 H 08/30/17 20:05 Respiratory Rate 20 08/30/17 20:05 Blood Pressure 147/93 08/30/17 20:05 O2 Sat by Pulse Oximetry (%) 92 L 08/30/17 10:33 Constitutional: Yes: Well Nourished Neck: Yes: WNL, Supple Cardiovascular: Yes: WNL, Regular Rate and Rhythm Respiratory: Yes: Diminished, Wheezes Gastrointestinal: Yes: WNL, Normal Bowel Sounds, Soft, Abdomen, Obese Labs: CBC, BMP 08/29/17 13:20 08/29/17 13:20 INR, PTT INR 2.87 (0.82-1.09) H 08/30/17 15:30 Problem List - Problems (1) COPD exacerbation Assessment/Plan: Cont IV solumedrol Cont nebulizers/spiriva/symbicort Code(s): J44.1 - CHRONIC OBSTRUCTIVE PULMONARY DISEASE W (ACUTE) EXACERBATION (2) Chronic diastolic (congestive) heart failure Assessment/Plan: Cont lasix Monitor electrolytes Code(s): I50.32 - CHRONIC DIASTOLIC (CONGESTIVE) HEART FAILURE (3) History of pulmonary embolism Assessment/Plan: Monitor PT/inr Cont coumadin Code(s): Z86.711 - PERSONAL HISTORY OF PULMONARY EMBOLISM (4) DVT (deep venous thrombosis) Assessment/Plan: Monitor PT/inr Code(s): I82.409 - ACUTE EMBOLISM AND THOMBOS UNSP DEEP VN UNSP LOWER EXTREMITY (5) Hypertension Assessment/Plan: BP stable Cont procardia/diovan Code(s): I10 - ESSENTIAL (PRIMARY) HYPERTENSION (6) Coronary artery disease Code(s): I25.10 - ATHSCL HEART DISEASE OF [place] CORONARY ARTERY W/O ANG PCTRS (7) Morbid obesity Code(s): E66.01 - MORBID (SEVERE) OBESITY DUE TO EXCESS CALORIES (8) HLD (hyperlipidemia) Code(s): E78.5 - HYPERLIPIDEMIA, UNSPECIFIED (9) Hemorrhoid Code(s): K64.9 - UNSPECIFIED HEMORRHOIDS (10) Conjunctival hemorrhage of right eye Code(s): H11.31 - CONJUNCTIVAL HEMORRHAGE, RIGHT EYE
[2017-08-31] MEDS: methylPREDNISolone NA SUCC 40 MG/1 ML VIAL IVPUSH SCH ×3 (03:39→17:42)
[2017-08-31] MEDS: INSULIN SLIDING SCALE (NOVOLOG) 1 VIAL SQ SCH ×4 (06:08→22:18)
[2017-08-31] MEDS: NYSTATIN 500,000 UNITS/5 ML SUSPENSION PO SCH ×3 (06:09→22:12)
[2017-08-31] MEDS ORDERED: PT OWN MED DRAWER 7, Y5N ONE (06:20)
[2017-08-31 08:37] LABS: MCH 21.1 pg (25.7-33.7); MCHC 27.6 g/dl (32.0-36.0); MEAN CELL VOLUME 76.4 fl (80-96); MEAN PLT VOLUME 8.7 fl (7.5-11.1); PLATELET COUNT 279 K/MM3 (134-434); RDW 15.6 % (11.6-15.6); WHITE BLOOD COUNT 30.7 K/mm3 (4.0-10.0)
[2017-08-31 08:51] LABS: INR 3.13 (0.82-1.09); PROTHROMBIN TIME (PATIENT) 35.4 SEC (9.98-11.88)
[2017-08-31 09:03] LABS: ALBUMIN 3.4 g/dl (3.4-5.0); ANION GAP 5 (8-16); CALCIUM 8.6 mg/dL (8.5-10.1); CO2 41 mmol/L (21-32); CREATININE 1.3 mg/dL (0.55-1.02); GLUCOSE,RANDOM 196 mg/dL (74-106); SGOT/AST 20 U/L (15-37); SGPT/ALT 36 U/L (12-78); TOT PROT 5.6 g/dl (6.4-8.2)
[2017-08-31 09:04] LABS: ALK PHOS 56 U/L (45-117); BILIRUBIN,TOTAL 0.7 mg/dL (0.2-1.0)
[2017-08-31] MEDS: MECLIZINE HCL 12.5 MG TABLET PO SCH ×2 (10:37→22:12)
[2017-08-31] MEDS: FERROUS SO4 325 MG TABLET (FP) PO SCH ×3 (10:37→17:41)
[2017-08-31] MEDS: FUROSEMIDE 40 MG TABLET (FP) PO SCH (10:37)
[2017-08-31] MEDS: CHOLECALCIFEROL (VITAMIN D3) 1,000 UNIT TABLET (FP) PO SCH (10:37)
[2017-08-31] MEDS: VALSARTAN 160 MG TABLET (UD) PO SCH (10:37)
[2017-08-31] MEDS: ASPIRIN 81 MG CHEWABLE TABLETS PO SCH (10:37)
[2017-08-31] MEDS: SENNOSIDES 8.6MG TABLET (FP) PO SCH ×2 (10:37→22:12)
[2017-08-31] MEDS: NIFEdipine E.R. 30 MG TABLET (FP) PO SCH (10:37)
[2017-08-31] MEDS: PANTOPRAZOLE 40 MG TABLET (FP) PO SCH (10:37)
[2017-08-31] MEDS: BUDESONIDE/FORMETEROL FUMARATE 160/4.5 mcg INHALER IH SCH ×2 (10:40→22:09)
[2017-08-31] MEDS: CEFTRIAXONE 1 G/50 ML PREMIX 50 ML IVPB SCH (10:41)
[2017-08-31] MEDS: NYSTATIN POWDER 100,000 UNITS/GM - 15 GM TOPICAL POWDER TP SCH ×2 (10:56→22:12)
[2017-08-31] MEDS: HYDROCORTISONE 2.5% TOPICAL CREAM 30 GM TUBE TP SCH ×2 (10:56→22:12)
[2017-08-31] MEDS: SODIUM CHLORIDE NASAL SPRAY 44 ML BOTTLE NS SCH ×2 (10:56→22:12)
[2017-08-31] MEDS: TIOTROPIUM BROMIDE 18 MCG/INH (DEVICE W/ 5 CAPSULES) IH SCH (10:56)
[2017-08-31 11:26] LABS: METAMYELOCYTE 1 % (0-2); MYELOCYTE 1 % (0-2); PLATELET ESTIMATE ADEQUATE (NORMAL); TOTAL CELLS COUNTED 100
--- NOTE | 2017-08-31 11:38 | PN ---
Progress Note, Physician History of Present Illness: seen and examined today in nad. states she is feeling slightly better today. - Current Medication List Current Medications: Active Medications Acetaminophen (Tylenol -) 650 mg PO TID PRN PRN Reason: PAIN Last Admin: 08/25/17 09:42 Dose: 650 mg Aspirin (Asa -) 81 mg PO DAILY [facility] Last Admin: 08/31/17 10:37 Dose: 81 mg Budesonide/Formoterol Fumarate (Symbicort 160/4.5mcg -) 1 puff IH BID [facility] Last Admin: 08/31/17 10:40 Dose: 1 puff Cholecalciferol (Vitamin D3 -) 2,000 unit PO DAILY [facility] Last Admin: 08/31/17 10:37 Dose: 2,000 unit Ferrous Sulfate (Feosol -) 325 mg PO TIDCM [facility] Last Admin: 08/31/17 10:37 Dose: 325 mg Furosemide (Lasix -) 40 mg PO DAILY [facility] Last Admin: 08/31/17 10:37 Dose: 40 mg Hydrocortisone (Anusol 2.5% Hc Cream -) 1 applic TP BID [facility] Last Admin: 08/31/17 10:56 Dose: 1 applic CEFTRIAXONE 1 G/50 ML PREMIX (Ceftriaxone 1 Gm-D5w Bag) 50 mls @ 100 mls/hr IVPB DAILY [facility] Last Admin: 08/31/17 10:41 Dose: 100 mls/hr Insulin Aspart (Novolog Vial Sliding Scale -) 1 vial SQ ACHS [facility] PRN Reason: Protocol Last Admin: 08/31/17 06:08 Dose: 4 units Meclizine HCl (Antivert -) 12.5 mg PO BID [facility] Last Admin: 08/31/17 10:37 Dose: 12.5 mg Methylprednisolone Sodium Succinate (Solu-Medrol -) 40 mg IVPUSH Q6H-IV [facility] Last Admin: 08/31/17 10:36 Dose: 40 mg Nifedipine (Procardia Xl -) 30 mg PO DAILY [facility] Last Admin: 08/31/17 10:37 Dose: 30 mg Cyclosporine [ Restasis] 0.05% Eye Drops 1 each OU BID [facility] Last Admin: 08/31/17 10:56 Dose: 1 each Nystatin (Nystop Powder -) 1 applic TP BID [facility] Last Admin: 08/31/17 10:56 Dose: 1 applic Nystatin (Nystatin Oral Suspension -) 500,000 units PO TID [facility] Last Admin: 08/31/17 06:09 Dose: 500,000 units Pantoprazole Sodium (Protonix -) 40 mg PO DAILY [facility] Last Admin: 08/31/17 10:37 Dose: 40 mg Rosuvastatin Calcium (Crestor -) 10 mg PO HS [facility] Last Admin: 08/30/17 21:08 Dose: 10 mg Senna (Senna -) 1 tab PO BID [facility] Last Admin: 08/31/17 10:37 Dose: 1 tab Sodium Chloride ([place] -) 2 spray NS BID [facility] Last Admin: 08/31/17 10:56 Dose: 2 sprays Tiotropium Dane (Spiriva -) 1 puff IH DAILY [facility] Last Admin: 08/31/17 10:56 Dose: 1 puff Valsartan (Diovan -) 160 mg PO DAILY [facility] Last Admin: 08/31/17 10:37 Dose: 160 mg Warfarin Sodium (Coumadin -) 3 mg PO DAILY@1800 [facility] Last Admin: 08/30/17 17:55 Dose: 3 mg - Objective Vital Signs: Vital Signs Temperature 98.7 F 08/30/17 20:05 Pulse Rate 98 H 08/31/17 06:09 Respiratory Rate 20 08/31/17 06:09 Blood Pressure 145/100 08/31/17 06:09 O2 Sat by Pulse Oximetry (%) 95 08/30/17 21:00 Constitutional: Yes: No Distress, Calm, Obese Eyes: Yes: Conjunctiva Clear, EOM Intact HENT: Yes: Atraumatic, Normocephalic Cardiovascular: Yes: Regular Rate and Rhythm, S1, S2. No: Bradycardia, Tachycardia, Pulse Irregular, Bruit, JVD, Gallop, Murmur, Rub, S3, S4, Varicosities Respiratory: Yes: Regular, Diminished, On Nasal O2. No: Rales, Rhonchi, Wheezes Gastrointestinal: Yes: Normal Bowel Sounds, Soft Edema: No Peripheral Pulses WNL: Yes Peripheral Pulses: Left Doralis Pedis: 2+, Right Dorsalis Pedis: 2+ Neurological: Yes: Alert, Oriented Psychiatric: Yes: Alert, Oriented Labs: CBC, BMP 08/31/17 08:05 08/31/17 08:05 INR, PTT INR 3.13 (0.82-1.09) H 08/31/17 08:05 - ....Imaging Chest X-ray: Report Reviewed, Image Reviewed EKG: Report Reviewed, Image Reviewed Other: Report Reviewed, Image Reviewed Assessment/Plan AECOPD Acute on chronic diastolic CHF, mild exacerbation History of PE on coumadin REC: AE COPD Continue nebs, supp. O2 and steroid taper as per Pulmonary. Maintain INR therapeutic for PE, goal 2-3 HTN is adequately controlled on valsartan, nifedipine, and Lasix Change to po Lasix today as she is currently euvolemic, if she requires additional IV Lasix can be dosed prn Follow daily labs for bun/creat, electrolytes and replete as needed and monitor I/Os and daily weights
--- NOTE | 2017-08-31 12:41 | PN ---
Progress Note, Physician History of Present Illness: events noted from the week end patient had increased sob and cough wbc jumped up was started on abx wbc slightly better today - Current Medication List Current Medications: Active Medications Acetaminophen (Tylenol -) 650 mg PO TID PRN PRN Reason: PAIN Last Admin: 08/25/17 09:42 Dose: 650 mg Aspirin (Asa -) 81 mg PO DAILY [facility] Last Admin: 08/31/17 10:37 Dose: 81 mg Budesonide/Formoterol Fumarate (Symbicort 160/4.5mcg -) 1 puff IH BID [facility] Last Admin: 08/31/17 10:40 Dose: 1 puff Cholecalciferol (Vitamin D3 -) 2,000 unit PO DAILY [facility] Last Admin: 08/31/17 10:37 Dose: 2,000 unit Ferrous Sulfate (Feosol -) 325 mg PO TIDCM [facility] Last Admin: 08/31/17 12:20 Dose: 325 mg Furosemide (Lasix -) 40 mg PO DAILY [facility] Last Admin: 08/31/17 10:37 Dose: 40 mg Hydrocortisone (Anusol 2.5% Hc Cream -) 1 applic TP BID [facility] Last Admin: 08/31/17 10:56 Dose: 1 applic CEFTRIAXONE 1 G/50 ML PREMIX (Ceftriaxone 1 Gm-D5w Bag) 50 mls @ 100 mls/hr IVPB DAILY [facility] Last Admin: 08/31/17 10:41 Dose: 100 mls/hr Insulin Aspart (Novolog Vial Sliding Scale -) 1 vial SQ ACHS [facility] PRN Reason: Protocol Last Admin: 08/31/17 12:20 Dose: 4 units Meclizine HCl (Antivert -) 12.5 mg PO BID [facility] Last Admin: 08/31/17 10:37 Dose: 12.5 mg Methylprednisolone Sodium Succinate (Solu-Medrol -) 40 mg IVPUSH Q6H-IV [facility] Last Admin: 08/31/17 10:36 Dose: 40 mg Nifedipine (Procardia Xl -) 30 mg PO DAILY [facility] Last Admin: 08/31/17 10:37 Dose: 30 mg Cyclosporine [ Restasis] 0.05% Eye Drops 1 each OU BID [facility] Last Admin: 08/31/17 10:56 Dose: 1 each Nystatin (Nystop Powder -) 1 applic TP BID [facility] Last Admin: 08/31/17 10:56 Dose: 1 applic Nystatin (Nystatin Oral Suspension -) 500,000 units PO TID [facility] Last Admin: 08/31/17 06:09 Dose: 500,000 units Pantoprazole Sodium (Protonix -) 40 mg PO DAILY [facility] Last Admin: 08/31/17 10:37 Dose: 40 mg Rosuvastatin Calcium (Crestor -) 10 mg PO HS [facility] Last Admin: 08/30/17 21:08 Dose: 10 mg Senna (Senna -) 1 tab PO BID [facility] Last Admin: 08/31/17 10:37 Dose: 1 tab Sodium Chloride ([place] Nasal [place] -) 2 spray NS BID [facility] Last Admin: 08/31/17 10:56 Dose: 2 sprays Tiotropium [place] (Spiriva -) 1 puff IH DAILY [facility] Last Admin: 08/31/17 10:56 Dose: 1 puff Valsartan (Diovan -) 160 mg PO DAILY [facility] Last Admin: 08/31/17 10:37 Dose: 160 mg Warfarin Sodium (Coumadin -) 3 mg PO DAILY@1800 [facility] Last Admin: 08/30/17 17:55 Dose: 3 mg - Objective Vital Signs: Vital Signs Temperature 98.7 F 08/30/17 20:05 Pulse Rate 98 H 08/31/17 06:09 Respiratory Rate 20 08/31/17 06:09 Blood Pressure 145/100 08/31/17 06:09 O2 Sat by Pulse Oximetry (%) 95 08/30/17 21:00 Constitutional: Yes: No Distress, Calm, Obese Cardiovascular: Yes: Regular Rate and Rhythm Respiratory: Yes: Regular, On Nasal O2, Poor Air Entry, Rhonchi Gastrointestinal: Yes: Normal Bowel Sounds, Soft Musculoskeletal: Yes: WNL Extremities: Yes: WNL Neurological: Yes: Alert, Oriented Psychiatric: Yes: Alert, Oriented Labs: CBC, BMP 08/31/17 08:05 08/31/17 08:05 INR, PTT INR 3.13 (0.82-1.09) H 08/31/17 08:05 Assessment/Plan Problem List - Problems (1) SOB (shortness of breath) Code(s): R06.02 - SHORTNESS OF BREATH (2) Acute on chronic respiratory failure with hypoxia and hypercapnia Code(s): J96.21 - ACUTE AND CHRONIC RESPIRATORY FAILURE WITH HYPOXIA J96.22 - ACUTE AND CHRONIC RESPIRATORY FAILURE WITH HYPERCAPNIA (3) Anemia Code(s): D64.9 - ANEMIA, UNSPECIFIED (4) CHF (congestive heart failure) Code(s): I50.9 - HEART FAILURE, UNSPECIFIED (5) COPD exacerbation Code(s): J44.1 - CHRONIC OBSTRUCTIVE PULMONARY DISEASE W (ACUTE) EXACERBATION (6) Chronic diastolic (congestive) heart failure Code(s): I50.32 - CHRONIC DIASTOLIC (CONGESTIVE) HEART FAILURE (7) Coronary artery disease Code(s): I25.10 - ATHSCL HEART DISEASE OF [place] CORONARY ARTERY W/O ANG PCTRS (8) History of pulmonary embolism Code(s): Z86.711 - PERSONAL HISTORY OF PULMONARY EMBOLISM (9) Morbid obesity Code(s): E66.01 - MORBID (SEVERE) OBESITY DUE TO EXCESS CALORIES (10) Pulmonary hypertension Code(s): I27.2 - OTHER SECONDARY PULMONARY HYPERTENSION * DO NOT USE * plan conitnue abx will order xray chest to see for any new findings
--- NOTE | 2017-08-31 12:53 | PN ---
Progress Note, Physician History of Present Illness: PULMONARY ALERT,DYSPNEIC WITH ANY EXERTION - Current Medication List Current Medications: Active Medications Acetaminophen (Tylenol -) 650 mg PO TID PRN PRN Reason: PAIN Last Admin: 08/25/17 09:42 Dose: 650 mg Aspirin (Asa -) 81 mg PO DAILY [facility] Last Admin: 08/31/17 10:37 Dose: 81 mg Budesonide/Formoterol Fumarate (Symbicort 160/4.5mcg -) 1 puff IH BID [facility] Last Admin: 08/31/17 10:40 Dose: 1 puff Cholecalciferol (Vitamin D3 -) 2,000 unit PO DAILY [facility] Last Admin: 08/31/17 10:37 Dose: 2,000 unit Ferrous Sulfate (Feosol -) 325 mg PO TIDCM [facility] Last Admin: 08/31/17 12:20 Dose: 325 mg Furosemide (Lasix -) 40 mg PO DAILY [facility] Last Admin: 08/31/17 10:37 Dose: 40 mg Hydrocortisone (Anusol 2.5% Hc Cream -) 1 applic TP BID [facility] Last Admin: 08/31/17 10:56 Dose: 1 applic CEFTRIAXONE 1 G/50 ML PREMIX (Ceftriaxone 1 Gm-D5w Bag) 50 mls @ 100 mls/hr IVPB DAILY [facility] Last Admin: 08/31/17 10:41 Dose: 100 mls/hr Insulin Aspart (Novolog Vial Sliding Scale -) 1 vial SQ ACHS [facility] PRN Reason: Protocol Last Admin: 08/31/17 12:20 Dose: 4 units Meclizine HCl (Antivert -) 12.5 mg PO BID [facility] Last Admin: 08/31/17 10:37 Dose: 12.5 mg Methylprednisolone Sodium Succinate (Solu-Medrol -) 40 mg IVPUSH Q6H-IV [facility] Last Admin: 08/31/17 10:36 Dose: 40 mg Nifedipine (Procardia Xl -) 30 mg PO DAILY [facility] Last Admin: 08/31/17 10:37 Dose: 30 mg Cyclosporine [ Restasis] 0.05% Eye Drops 1 each OU BID [facility] Last Admin: 08/31/17 10:56 Dose: 1 each Nystatin (Nystop Powder -) 1 applic TP BID [facility] Last Admin: 08/31/17 10:56 Dose: 1 applic Nystatin (Nystatin Oral Suspension -) 500,000 units PO TID [facility] Last Admin: 08/31/17 06:09 Dose: 500,000 units Pantoprazole Sodium (Protonix -) 40 mg PO DAILY [facility] Last Admin: 08/31/17 10:37 Dose: 40 mg Rosuvastatin Calcium (Crestor -) 10 mg PO HS [facility] Last Admin: 08/30/17 21:08 Dose: 10 mg Senna (Senna -) 1 tab PO BID [facility] Last Admin: 08/31/17 10:37 Dose: 1 tab Sodium Chloride ([place] Nasal [place] -) 2 spray NS BID [facility] Last Admin: 08/31/17 10:56 Dose: 2 sprays Tiotropium [place] (Spiriva -) 1 puff IH DAILY [facility] Last Admin: 08/31/17 10:56 Dose: 1 puff Valsartan (Diovan -) 160 mg PO DAILY [facility] Last Admin: 08/31/17 10:37 Dose: 160 mg Warfarin Sodium (Coumadin -) 3 mg PO DAILY@1800 [facility] Last Admin: 08/30/17 17:55 Dose: 3 mg - Objective Vital Signs: Vital Signs Temperature 98.7 F 08/30/17 20:05 Pulse Rate 98 H 08/31/17 06:09 Respiratory Rate 20 08/31/17 06:09 Blood Pressure 145/100 08/31/17 06:09 O2 Sat by Pulse Oximetry (%) 95 08/30/17 21:00 Constitutional: Yes: Calm, Obese Eyes: Yes: WNL HENT: Yes: WNL Neck: Yes: WNL Cardiovascular: Yes: Regular Rate and Rhythm, S1, S2 Respiratory: Yes: Diminished Gastrointestinal: Yes: Normal Bowel Sounds, Soft Extremities: Yes: WNL Edema: No Labs: CBC, BMP 08/31/17 08:05 08/31/17 08:05 INR, PTT INR 3.13 (0.82-1.09) H 08/31/17 08:05 Problem List - Problems (1) SOB (shortness of breath) Code(s): R06.02 - SHORTNESS OF BREATH (2) Acute on chronic respiratory failure with hypoxia and hypercapnia Code(s): J96.21 - ACUTE AND CHRONIC RESPIRATORY FAILURE WITH HYPOXIA J96.22 - ACUTE AND CHRONIC RESPIRATORY FAILURE WITH HYPERCAPNIA (3) Anemia Code(s): D64.9 - ANEMIA, UNSPECIFIED (4) CHF (congestive heart failure) Code(s): I50.9 - HEART FAILURE, UNSPECIFIED (5) COPD exacerbation Code(s): J44.1 - CHRONIC OBSTRUCTIVE PULMONARY DISEASE W (ACUTE) EXACERBATION (6) Chronic diastolic (congestive) heart failure Code(s): I50.32 - CHRONIC DIASTOLIC (CONGESTIVE) HEART FAILURE (7) Coronary artery disease Code(s): I25.10 - ATHSCL HEART DISEASE OF [place] CORONARY ARTERY W/O ANG PCTRS (8) History of pulmonary embolism Code(s): Z86.711 - PERSONAL HISTORY OF PULMONARY EMBOLISM (9) Morbid obesity Code(s): E66.01 - MORBID (SEVERE) OBESITY DUE TO EXCESS CALORIES (10) Pulmonary hypertension Code(s): I27.2 - OTHER SECONDARY PULMONARY HYPERTENSION * DO NOT USE * Assessment/Plan IMP ACUTE ON CHRONIC HYPOXEMIC/HYPERCAPNEIC RESPIRATORY FAILURE END STAGE COPD O2 DEPENDENT WITH ACUTE EXACERBATION URI DIASTOLIC HF PULMONARY HTN H/O RECURRENT PULMONARY EMBOLI HTN MORBID OBESITY PLAN IV STEROIDS 40Q8 SUPPLEMENTAL O2 INHALED BRONCHODILATORS NIPPV NEEDED DIURETICS DR FOX Problem List - Problems (1) SOB (shortness of breath) Code(s): R06.02 - SHORTNESS OF BREATH (2) Acute on chronic respiratory failure with hypoxia and hypercapnia Code(s): J96.21 - ACUTE AND CHRONIC RESPIRATORY FAILURE WITH HYPOXIA J96.22 - ACUTE AND CHRONIC RESPIRATORY FAILURE WITH HYPERCAPNIA (3) Anemia Code(s): D64.9 - ANEMIA, UNSPECIFIED (4) CHF (congestive heart failure) Code(s): I50.9 - HEART FAILURE, UNSPECIFIED (5) COPD exacerbation Code(s): J44.1 - CHRONIC OBSTRUCTIVE PULMONARY DISEASE W (ACUTE) EXACERBATION (6) Chronic diastolic (congestive) heart failure Code(s): I50.32 - CHRONIC DIASTOLIC (CONGESTIVE) HEART FAILURE (7) Coronary artery disease Code(s): I25.10 - ATHSCL HEART DISEASE OF [place] CORONARY ARTERY W/O ANG PCTRS (8) History of pulmonary embolism Code(s): Z86.711 - PERSONAL HISTORY OF PULMONARY EMBOLISM (9) Morbid obesity Code(s): E66.01 - MORBID (SEVERE) OBESITY DUE TO EXCESS CALORIES (10) Pulmonary hypertension Code(s): I27.2 - OTHER SECONDARY PULMONARY HYPERTENSION * DO NOT USE *
[2017-08-31] MEDS ORDERED: ALBUTEROL SO4 2.5/IPRATROPIUM 0.5 INH SOL 3 ML VIAL.NEB. NEB ONE (14:00)
[2017-08-31] MEDS: ALBUTEROL SO4 2.5/IPRATROPIUM 0.5 INH SOL 3 ML VIAL.NEB. NEB PRN ×2 (14:15→17:25)
[2017-08-31] MEDS: WARFARIN NA 3 MG TABLET PO SCH (17:41)
[2017-08-31] MEDS ORDERED: INSULIN (NOVOLOG) ASPART 100 UNITS/ML 10ML VIAL ONE (22:01)
[2017-08-31] MEDS: ROSUVASTATIN CA 10 MG TABLET (FP) PO SCH (22:12)
--- NOTE | 2017-08-31 23:14 | PN ---
Progress Note, Physician History of Present Illness: Pt w/ no new complaints - Current Medication List Current Medications: Active Medications Acetaminophen (Tylenol -) 650 mg PO TID PRN PRN Reason: PAIN Last Admin: 08/25/17 09:42 Dose: 650 mg Albuterol/Ipratropium (Duoneb -) 1 amp NEB Q6H PRN Last Admin: 08/31/17 17:25 Dose: 1 amp Aspirin (Asa -) 81 mg PO DAILY [facility] Last Admin: 08/31/17 10:37 Dose: 81 mg Budesonide/Formoterol Fumarate (Symbicort 160/4.5mcg -) 1 puff IH BID [facility] Last Admin: 08/31/17 22:09 Dose: 1 puff Cholecalciferol (Vitamin D3 -) 2,000 unit PO DAILY [facility] Last Admin: 08/31/17 10:37 Dose: 2,000 unit Ferrous Sulfate (Feosol -) 325 mg PO TIDCM [facility] Last Admin: 08/31/17 17:41 Dose: 325 mg Furosemide (Lasix -) 40 mg PO DAILY [facility] Last Admin: 08/31/17 10:37 Dose: 40 mg Hydrocortisone (Anusol 2.5% Hc Cream -) 1 applic TP BID [facility] Last Admin: 08/31/17 22:12 Dose: 1 applic CEFTRIAXONE 1 G/50 ML PREMIX (Ceftriaxone 1 Gm-D5w Bag) 50 mls @ 100 mls/hr IVPB DAILY [facility] Last Admin: 08/31/17 10:41 Dose: 100 mls/hr Insulin Aspart (Novolog Vial Sliding Scale -) 1 vial SQ ACHS [facility] PRN Reason: Protocol Last Admin: 08/31/17 22:18 Dose: 8 units Meclizine HCl (Antivert -) 12.5 mg PO BID [facility] Last Admin: 08/31/17 22:12 Dose: 12.5 mg Methylprednisolone Sodium Succinate (Solu-Medrol -) 40 mg IVPUSH Q8H-IV [facility] Last Admin: 08/31/17 17:42 Dose: 40 mg Nifedipine (Procardia Xl -) 30 mg PO DAILY [facility] Last Admin: 08/31/17 10:37 Dose: 30 mg Cyclosporine [ Restasis] 0.05% Eye Drops 1 each OU BID [facility] Last Admin: 08/31/17 22:12 Dose: 1 each Nystatin (Nystop Powder -) 1 applic TP BID [facility] Last Admin: 08/31/17 22:12 Dose: 1 applic Nystatin (Nystatin Oral Suspension -) 500,000 units PO TID [facility] Last Admin: 08/31/17 22:12 Dose: 500,000 units Pantoprazole Sodium (Protonix -) 40 mg PO DAILY [facility] Last Admin: 08/31/17 10:37 Dose: 40 mg Rosuvastatin Calcium (Crestor -) 10 mg PO HS [facility] Last Admin: 08/31/17 22:12 Dose: 10 mg Senna (Senna -) 1 tab PO BID [facility] Last Admin: 08/31/17 22:12 Dose: 1 tab Sodium Chloride ([place] Nasal [place] -) 2 spray NS BID [facility] Last Admin: 08/31/17 22:12 Dose: 2 sprays Tiotropium [place] (Spiriva -) 1 puff IH DAILY [facility] Last Admin: 08/31/17 10:56 Dose: 1 puff Valsartan (Diovan -) 160 mg PO DAILY [facility] Last Admin: 08/31/17 10:37 Dose: 160 mg Warfarin Sodium (Coumadin -) 3 mg PO DAILY@1800 [facility] Last Admin: 08/31/17 17:41 Dose: 3 mg - Objective Vital Signs: Vital Signs Temperature 98.1 F 08/31/17 18:05 Pulse Rate 95 H 08/31/17 18:05 Respiratory Rate 22 08/31/17 18:05 Blood Pressure 138/67 08/31/17 18:05 O2 Sat by Pulse Oximetry (%) 97 08/31/17 14:25 Constitutional: Yes: Well Nourished Neck: Yes: WNL, Supple Cardiovascular: Yes: WNL, Regular Rate and Rhythm Respiratory: Yes: Diminished, Wheezes Gastrointestinal: Yes: WNL, Normal Bowel Sounds, Soft, Abdomen, Obese Edema: LLE: Trace, RLE: Trace Labs: CBC, BMP 08/31/17 08:05 08/31/17 08:05 INR, PTT INR 3.13 (0.82-1.09) H 08/31/17 08:05 Problem List - Problems (1) COPD exacerbation Code(s): J44.1 - CHRONIC OBSTRUCTIVE PULMONARY DISEASE W (ACUTE) EXACERBATION (2) Chronic diastolic (congestive) heart failure Code(s): I50.32 - CHRONIC DIASTOLIC (CONGESTIVE) HEART FAILURE (3) Anemia Assessment/Plan: Cont Feso4 Monitor H/H Code(s): D64.9 - ANEMIA, UNSPECIFIED (4) History of pulmonary embolism Code(s): Z86.711 - PERSONAL HISTORY OF PULMONARY EMBOLISM (5) DVT (deep venous thrombosis) Code(s): I82.409 - ACUTE EMBOLISM AND THOMBOS UNSP DEEP VN UNSP LOWER EXTREMITY (6) Hypertension Code(s): I10 - ESSENTIAL (PRIMARY) HYPERTENSION (7) Coronary artery disease Code(s): I25.10 - ATHSCL HEART DISEASE OF [place] CORONARY ARTERY W/O ANG PCTRS (8) Morbid obesity Code(s): E66.01 - MORBID (SEVERE) OBESITY DUE TO EXCESS CALORIES (9) HLD (hyperlipidemia) Code(s): E78.5 - HYPERLIPIDEMIA, UNSPECIFIED (10) Hemorrhoid Code(s): K64.9 - UNSPECIFIED HEMORRHOIDS (11) Conjunctival hemorrhage of right eye Code(s): H11.31 - CONJUNCTIVAL HEMORRHAGE, RIGHT EYE (12) Anemia Code(s): D64.9 - ANEMIA, UNSPECIFIED
[2017-09-01] MEDS: methylPREDNISolone NA SUCC 40 MG/1 ML VIAL IVPUSH SCH ×3 (03:00→18:28)
[2017-09-01] MEDS: NYSTATIN 500,000 UNITS/5 ML SUSPENSION PO SCH ×3 (06:30→21:52)
[2017-09-01] MEDS: INSULIN SLIDING SCALE (NOVOLOG) 1 VIAL SQ SCH ×4 (06:32→21:51)
[2017-09-01 08:25] LABS: INR 3.78 (0.82-1.09); PROTHROMBIN TIME (PATIENT) 42.7 SEC (9.98-11.88)
--- NOTE | 2017-09-01 10:16 | PN ---
Progress Note, Physician Chief Complaint: INR elevated, will hold coumadin History of Present Illness: CXR with increasing congestive changes. - Current Medication List Current Medications: Active Medications Acetaminophen (Tylenol -) 650 mg PO TID PRN PRN Reason: PAIN Last Admin: 08/25/17 09:42 Dose: 650 mg Albuterol/Ipratropium (Duoneb -) 1 amp NEB Q6H PRN Last Admin: 08/31/17 17:25 Dose: 1 amp Aspirin (Asa -) 81 mg PO DAILY [facility] Last Admin: 08/31/17 10:37 Dose: 81 mg Budesonide/Formoterol Fumarate (Symbicort 160/4.5mcg -) 1 puff IH BID [facility] Last Admin: 08/31/17 22:09 Dose: 1 puff Cholecalciferol (Vitamin D3 -) 2,000 unit PO DAILY [facility] Last Admin: 08/31/17 10:37 Dose: 2,000 unit Ferrous Sulfate (Feosol -) 325 mg PO TIDCM [facility] Last Admin: 08/31/17 17:41 Dose: 325 mg Furosemide (Lasix -) 40 mg PO DAILY [facility] Last Admin: 08/31/17 10:37 Dose: 40 mg Hydrocortisone (Anusol 2.5% Hc Cream -) 1 applic TP BID [facility] Last Admin: 08/31/17 22:12 Dose: 1 applic CEFTRIAXONE 1 G/50 ML PREMIX (Ceftriaxone 1 Gm-D5w Bag) 50 mls @ 100 mls/hr IVPB DAILY [facility] Last Admin: 08/31/17 10:41 Dose: 100 mls/hr Insulin Aspart (Novolog Vial Sliding Scale -) 1 vial SQ ACHS [facility] PRN Reason: Protocol Last Admin: 09/01/17 06:32 Dose: 2 units Meclizine HCl (Antivert -) 12.5 mg PO BID [facility] Last Admin: 08/31/17 22:12 Dose: 12.5 mg Methylprednisolone Sodium Succinate (Solu-Medrol -) 40 mg IVPUSH Q8H-IV [facility] Last Admin: 09/01/17 03:00 Dose: 40 mg Nifedipine (Procardia Xl -) 30 mg PO DAILY [facility] Last Admin: 08/31/17 10:37 Dose: 30 mg Cyclosporine [ Restasis] 0.05% Eye Drops 1 each OU BID [facility] Last Admin: 08/31/17 22:12 Dose: 1 each Nystatin (Nystop Powder -) 1 applic TP BID [facility] Last Admin: 08/31/17 22:12 Dose: 1 applic Nystatin (Nystatin Oral Suspension -) 500,000 units PO TID [facility] Last Admin: 09/01/17 06:30 Dose: 500,000 units Pantoprazole Sodium (Protonix -) 40 mg PO DAILY [facility] Last Admin: 08/31/17 10:37 Dose: 40 mg Rosuvastatin Calcium (Crestor -) 10 mg PO HS [facility] Last Admin: 08/31/17 22:12 Dose: 10 mg Senna (Senna -) 1 tab PO BID [facility] Last Admin: 08/31/17 22:12 Dose: 1 tab Sodium Chloride ([place] Nasal [place] -) 2 spray NS BID [facility] Last Admin: 08/31/17 22:12 Dose: 2 sprays Tiotropium [place] (Spiriva -) 1 puff IH DAILY [facility] Last Admin: 08/31/17 10:56 Dose: 1 puff Valsartan (Diovan -) 160 mg PO DAILY [facility] Last Admin: 08/31/17 10:37 Dose: 160 mg - Objective Vital Signs: Vital Signs Temperature 98.5 F 09/01/17 09:00 Pulse Rate 101 H 09/01/17 09:00 Respiratory Rate 18 09/01/17 09:00 Blood Pressure 138/68 09/01/17 09:00 O2 Sat by Pulse Oximetry (%) 100 08/31/17 21:00 Constitutional: Yes: No Distress Cardiovascular: Yes: Regular Rate and Rhythm Respiratory: Yes: Other (decreased breath sounds at bases b/l) Gastrointestinal: Yes: Soft Edema: No Neurological: Yes: Alert, Oriented Labs: CBC, BMP 08/31/17 08:05 08/31/17 08:05 INR, PTT INR 3.78 (0.82-1.09) H 09/01/17 07:28 Microbiology 08/20/17 16:46 Blood - Peripheral Venous Blood Culture - Final NO GROWTH AFTER 5 DAYS INCUBATION 08/20/17 16:46 Blood - Peripheral Venous Blood Culture - Final NO GROWTH AFTER 5 DAYS INCUBATION Laboratory Tests 08/31/17 09/01/17 08:05 07:28 WBC 30.7 H* Hgb 7.4 L Plt Count 279 INR 3.78 H Assessment/Plan Assessment/Plan AECOPD Acute on chronic diastolic CHF, mild exacerbation History of PE on coumadin REC: AE COPD Continue nebs, supp. O2 and steroid taper as per Pulmonary. Maintain INR therapeutic for PE, goal 2-3 HTN is adequately controlled on valsartan and nifedipine. Increase Lasix to BID dosing, CXR shows increased PVC. Check daily metabolic panel to follow electrolytes and creatinine.
[2017-09-01] MEDS ORDERED: PT OWN MED DRAWER 7, Y5N ONE ×2 (10:41→23:13)
[2017-09-01] MEDS: FERROUS SO4 325 MG TABLET (FP) PO SCH ×3 (11:24→18:28)
[2017-09-01] MEDS: NIFEdipine E.R. 30 MG TABLET (FP) PO SCH (11:24)
[2017-09-01] MEDS: MECLIZINE HCL 12.5 MG TABLET PO SCH ×2 (11:24→21:50)
[2017-09-01] MEDS: PANTOPRAZOLE 40 MG TABLET (FP) PO SCH (11:24)
[2017-09-01] MEDS: VALSARTAN 160 MG TABLET (UD) PO SCH (11:24)
[2017-09-01] MEDS: SENNOSIDES 8.6MG TABLET (FP) PO SCH ×2 (11:24→21:52)
[2017-09-01] MEDS: ASPIRIN 81 MG CHEWABLE TABLETS PO SCH (11:24)
[2017-09-01] MEDS: CHOLECALCIFEROL (VITAMIN D3) 1,000 UNIT TABLET (FP) PO SCH (11:24)
[2017-09-01] MEDS: HYDROCORTISONE 2.5% TOPICAL CREAM 30 GM TUBE TP SCH ×2 (11:26→21:50)
[2017-09-01] MEDS: NYSTATIN POWDER 100,000 UNITS/GM - 15 GM TOPICAL POWDER TP SCH ×2 (11:26→21:52)
[2017-09-01] MEDS: BUDESONIDE/FORMETEROL FUMARATE 160/4.5 mcg INHALER IH SCH ×2 (11:28→21:52)
[2017-09-01] MEDS: TIOTROPIUM BROMIDE 18 MCG/INH (DEVICE W/ 5 CAPSULES) IH SCH (11:28)
[2017-09-01] MEDS: SODIUM CHLORIDE NASAL SPRAY 44 ML BOTTLE NS SCH ×2 (11:29→21:52)
[2017-09-01] MEDS ORDERED: INSULIN (NOVOLOG) ASPART 100 UNITS/ML 10ML VIAL ONE ×2 (11:31→16:54)
[2017-09-01] MEDS: CEFTRIAXONE 1 G/50 ML PREMIX 50 ML IVPB SCH (11:32)
[2017-09-01] MEDS: FUROSEMIDE 40 MG TABLET (FP) PO SCH ×2 (11:58→14:12)
--- NOTE | 2017-09-01 14:45 | PN ---
Progress Note, Physician History of Present Illness: patient feeling a little better still not 100 percent - Current Medication List Current Medications: Active Medications Acetaminophen (Tylenol -) 650 mg PO TID PRN PRN Reason: PAIN Last Admin: 08/25/17 09:42 Dose: 650 mg Albuterol/Ipratropium (Duoneb -) 1 amp NEB Q6H PRN Last Admin: 08/31/17 17:25 Dose: 1 amp Aspirin (Asa -) 81 mg PO DAILY [facility] Last Admin: 09/01/17 11:24 Dose: 81 mg Budesonide/Formoterol Fumarate (Symbicort 160/4.5mcg -) 1 puff IH BID [facility] Last Admin: 09/01/17 11:28 Dose: 1 puff Cholecalciferol (Vitamin D3 -) 2,000 unit PO DAILY [facility] Last Admin: 09/01/17 11:24 Dose: 2,000 unit Ferrous Sulfate (Feosol -) 325 mg PO TIDCM [facility] Last Admin: 09/01/17 14:12 Dose: 325 mg Furosemide (Lasix -) 40 mg PO BID@0600,1400 [facility] Last Admin: 09/01/17 14:12 Dose: 40 mg Hydrocortisone (Anusol 2.5% Hc Cream -) 1 applic TP BID [facility] Last Admin: 09/01/17 11:26 Dose: 1 applic CEFTRIAXONE 1 G/50 ML PREMIX (Ceftriaxone 1 Gm-D5w Bag) 50 mls @ 100 mls/hr IVPB DAILY [facility] Last Admin: 09/01/17 11:32 Dose: 100 mls/hr Insulin Aspart (Novolog Vial Sliding Scale -) 1 vial SQ ACHS [facility] PRN Reason: Protocol Last Admin: 09/01/17 11:38 Dose: 4 units Meclizine HCl (Antivert -) 12.5 mg PO BID [facility] Last Admin: 09/01/17 11:24 Dose: 12.5 mg Methylprednisolone Sodium Succinate (Solu-Medrol -) 40 mg IVPUSH Q8H-IV [facility] Last Admin: 09/01/17 11:22 Dose: 40 mg Nifedipine (Procardia Xl -) 30 mg PO DAILY [facility] Last Admin: 09/01/17 11:24 Dose: 30 mg Cyclosporine [ Restasis] 0.05% Eye Drops 1 each OU BID [facility] Last Admin: 09/01/17 11:27 Dose: 1 each Nystatin (Nystop Powder -) 1 applic TP BID [facility] Last Admin: 09/01/17 11:26 Dose: 1 applic Nystatin (Nystatin Oral Suspension -) 500,000 units PO TID [facility] Last Admin: 09/01/17 14:12 Dose: 500,000 units Pantoprazole Sodium (Protonix -) 40 mg PO DAILY [facility] Last Admin: 09/01/17 11:24 Dose: 40 mg Rosuvastatin Calcium (Crestor -) 10 mg PO HS [facility] Last Admin: 08/31/17 22:12 Dose: 10 mg Senna (Senna -) 1 tab PO BID [facility] Last Admin: 09/01/17 11:24 Dose: 1 tab Sodium Chloride ([place]al [place] -) 2 spray NS BID [facility] Last Admin: 09/01/17 11:29 Dose: 2 sprays Tiotropium [place] (Spiriva -) 1 puff IH DAILY [facility] Last Admin: 09/01/17 11:28 Dose: 1 puff Valsartan (Diovan -) 160 mg PO DAILY [facility] Last Admin: 09/01/17 11:24 Dose: 160 mg - Objective Vital Signs: Vital Signs Temperature 98.6 F 09/01/17 14:22 Pulse Rate 100 H 09/01/17 14:22 Respiratory Rate 22 09/01/17 14:22 Blood Pressure 127/67 09/01/17 14:22 O2 Sat by Pulse Oximetry (%) 97 09/01/17 09:00 Constitutional: Yes: Calm, Mild Distress, Obese Cardiovascular: Yes: Regular Rate and Rhythm Respiratory: Yes: Regular, Poor Air Entry (bases) Gastrointestinal: Yes: Normal Bowel Sounds, Soft Musculoskeletal: Yes: WNL Extremities: Yes: WNL Neurological: Yes: Alert, Oriented Psychiatric: Yes: Alert, Oriented Labs: CBC, BMP 08/31/17 08:05 08/31/17 08:05 INR, PTT INR 3.78 (0.82-1.09) H 09/01/17 07:28 Assessment/Plan Problem List - Problems (1) SOB (shortness of breath) Code(s): R06.02 - SHORTNESS OF BREATH (2) Acute on chronic respiratory failure with hypoxia and hypercapnia Code(s): J96.21 - ACUTE AND CHRONIC RESPIRATORY FAILURE WITH HYPOXIA J96.22 - ACUTE AND CHRONIC RESPIRATORY FAILURE WITH HYPERCAPNIA (3) Anemia Code(s): D64.9 - ANEMIA, UNSPECIFIED (4) CHF (congestive heart failure) Code(s): I50.9 - HEART FAILURE, UNSPECIFIED (5) COPD exacerbation Code(s): J44.1 - CHRONIC OBSTRUCTIVE PULMONARY DISEASE W (ACUTE) EXACERBATION (6) Chronic diastolic (congestive) heart failure Code(s): I50.32 - CHRONIC DIASTOLIC (CONGESTIVE) HEART FAILURE (7) Coronary artery disease Code(s): I25.10 - ATHSCL HEART DISEASE OF [place] CORONARY ARTERY W/O ANG PCTRS (8) History of pulmonary embolism Code(s): Z86.711 - PERSONAL HISTORY OF PULMONARY EMBOLISM (9) Morbid obesity Code(s): E66.01 - MORBID (SEVERE) OBESITY DUE TO EXCESS CALORIES (10) Pulmonary hypertension Code(s): I27.2 - OTHER SECONDARY PULMONARY HYPERTENSION * DO NOT USE * plan continue abx xray seen and result noted more congestive changes rest as per primary team
--- NOTE | 2017-09-01 14:53 | PN ---
Progress Note (short form) - Note Progress Note: Feels less SOB. No acute events overnight. Intake & Output 08/30/17 08/30/17 08/31/17 09/01/17 00:59 23:59 23:59 23:59 Intake Total 0 940 Balance 0 940 Last Vital Signs Temp Pulse Resp BP Pulse Ox 98.6 F 100 H 22 127/67 97 09/01/17 14:22 09/01/17 14:22 09/01/17 14:22 09/01/17 14:22 09/01/17 09:00 Active Medications Acetaminophen (Tylenol -) 650 mg PO TID PRN PRN Reason: PAIN Last Admin: 08/25/17 09:42 Dose: 650 mg Albuterol/Ipratropium (Duoneb -) 1 amp NEB Q6H PRN Last Admin: 08/31/17 17:25 Dose: 1 amp Aspirin (Asa -) 81 mg PO DAILY [facility] Last Admin: 09/01/17 11:24 Dose: 81 mg Budesonide/Formoterol Fumarate (Symbicort 160/4.5mcg -) 1 puff IH BID [facility] Last Admin: 09/01/17 11:28 Dose: 1 puff Cholecalciferol (Vitamin D3 -) 2,000 unit PO DAILY [facility] Last Admin: 09/01/17 11:24 Dose: 2,000 unit Ferrous Sulfate (Feosol -) 325 mg PO TIDCM [facility] Last Admin: 09/01/17 14:12 Dose: 325 mg Furosemide (Lasix -) 40 mg PO BID@0600,1400 [facility] Last Admin: 09/01/17 14:12 Dose: 40 mg Hydrocortisone (Anusol 2.5% Hc Cream -) 1 applic TP BID [facility] Last Admin: 09/01/17 11:26 Dose: 1 applic CEFTRIAXONE 1 G/50 ML PREMIX (Ceftriaxone 1 Gm-D5w Bag) 50 mls @ 100 mls/hr IVPB DAILY [facility] Last Admin: 09/01/17 11:32 Dose: 100 mls/hr Insulin Aspart (Novolog Vial Sliding Scale -) 1 vial SQ ACHS [facility] PRN Reason: Protocol Last Admin: 09/01/17 11:38 Dose: 4 units Meclizine HCl (Antivert -) 12.5 mg PO BID [facility] Last Admin: 09/01/17 11:24 Dose: 12.5 mg Methylprednisolone Sodium Succinate (Solu-Medrol -) 40 mg IVPUSH Q8H-IV [facility] Last Admin: 09/01/17 11:22 Dose: 40 mg Nifedipine (Procardia Xl -) 30 mg PO DAILY [facility] Last Admin: 09/01/17 11:24 Dose: 30 mg Cyclosporine [ Restasis] 0.05% Eye Drops 1 each OU BID [facility] Last Admin: 09/01/17 11:27 Dose: 1 each Nystatin (Nystop Powder -) 1 applic TP BID [facility] Last Admin: 09/01/17 11:26 Dose: 1 applic Nystatin (Nystatin Oral Suspension -) 500,000 units PO TID [facility] Last Admin: 09/01/17 14:12 Dose: 500,000 units Pantoprazole Sodium (Protonix -) 40 mg PO DAILY [facility] Last Admin: 09/01/17 11:24 Dose: 40 mg Rosuvastatin Calcium (Crestor -) 10 mg PO HS [facility] Last Admin: 08/31/17 22:12 Dose: 10 mg Senna (Senna -) 1 tab PO BID [facility] Last Admin: 09/01/17 11:24 Dose: 1 tab Sodium Chloride ([place] Nasal [place] -) 2 spray NS BID [facility] Last Admin: 09/01/17 11:29 Dose: 2 sprays Tiotropium [place] (Spiriva -) 1 puff IH DAILY [facility] Last Admin: 09/01/17 11:28 Dose: 1 puff Valsartan (Diovan -) 160 mg PO DAILY [facility] Last Admin: 09/01/17 11:24 Dose: 160 mg Constitutional: Yes: NAD, Obese Eyes: Yes: WNL HENT: Yes: WNL Neck: Yes: WNL Cardiovascular: Yes: Regular Rate and Rhythm, S1, S2 Respiratory: Yes: Diminished Gastrointestinal: Yes: Normal Bowel Sounds, Soft Extremities: Yes: WNL Edema: No Labs: Laboratory Results - last 24 hr 08/31/17 08/31/17 09/01/17 17:40 22:16 06:32 PT with INR INR POC Glucometer 257 329 181 09/01/17 09/01/17 07:28 11:37 PT with INR 42.70 H INR 3.78 H POC Glucometer 247 Problem List - Problems (1) SOB (shortness of breath) Code(s): R06.02 - SHORTNESS OF BREATH (2) Acute on chronic respiratory failure with hypoxia and hypercapnia Code(s): J96.21 - ACUTE AND CHRONIC RESPIRATORY FAILURE WITH HYPOXIA J96.22 - ACUTE AND CHRONIC RESPIRATORY FAILURE WITH HYPERCAPNIA (3) Anemia Code(s): D64.9 - ANEMIA, UNSPECIFIED (4) CHF (congestive heart failure) Code(s): I50.9 - HEART FAILURE, UNSPECIFIED (5) COPD exacerbation Code(s): J44.1 - CHRONIC OBSTRUCTIVE PULMONARY DISEASE W (ACUTE) EXACERBATION (6) Chronic diastolic (congestive) heart failure Code(s): I50.32 - CHRONIC DIASTOLIC (CONGESTIVE) HEART FAILURE (7) Coronary artery disease Code(s): I25.10 - ATHSCL HEART DISEASE OF [place] CORONARY ARTERY W/O ANG PCTRS (8) History of pulmonary embolism Code(s): Z86.711 - PERSONAL HISTORY OF PULMONARY EMBOLISM (9) Morbid obesity Code(s): E66.01 - MORBID (SEVERE) OBESITY DUE TO EXCESS CALORIES (10) Pulmonary hypertension Code(s): I27.2 - OTHER SECONDARY PULMONARY HYPERTENSION * DO NOT USE * Assessment/Plan IMP ACUTE ON CHRONIC HYPOXEMIC/HYPERCAPNEIC RESPIRATORY FAILURE END STAGE COPD O2 DEPENDENT WITH ACUTE EXACERBATION URI DIASTOLIC HF PULMONARY HTN H/O RECURRENT PULMONARY EMBOLI HTN MORBID OBESITY PLAN IV STEROIDS CURRENTLY 40MG Q8 -. CAN LIKELY DECREASE IN AM SUPPLEMENTAL O2 INHALED BRONCHODILATORS NIPPV NEEDED DIURETICS DR MANJARREZ
[2017-09-01] MEDS: ALBUTEROL SO4 2.5/IPRATROPIUM 0.5 INH SOL 3 ML VIAL.NEB. NEB PRN ×2 (17:05→23:35)
[2017-09-01] MEDS: ROSUVASTATIN CA 10 MG TABLET (FP) PO SCH (21:51)
--- NOTE | 2017-09-01 22:40 | PN ---
Progress Note, Physician History of Present Illness: No new complaints - Current Medication List Current Medications: Active Medications Acetaminophen (Tylenol -) 650 mg PO TID PRN PRN Reason: PAIN Last Admin: 08/25/17 09:42 Dose: 650 mg Albuterol/Ipratropium (Duoneb -) 1 amp NEB Q6H PRN Last Admin: 09/01/17 17:05 Dose: 1 amp Aspirin (Asa -) 81 mg PO DAILY [facility] Last Admin: 09/01/17 11:24 Dose: 81 mg Budesonide/Formoterol Fumarate (Symbicort 160/4.5mcg -) 1 puff IH BID [facility] Last Admin: 09/01/17 21:52 Dose: 1 puff Cholecalciferol (Vitamin D3 -) 2,000 unit PO DAILY [facility] Last Admin: 09/01/17 11:24 Dose: 2,000 unit Ferrous Sulfate (Feosol -) 325 mg PO TIDCM [facility] Last Admin: 09/01/17 18:28 Dose: 325 mg Furosemide (Lasix -) 40 mg PO BID@0600,1400 [facility] Last Admin: 09/01/17 14:12 Dose: 40 mg Hydrocortisone (Anusol 2.5% Hc Cream -) 1 applic TP BID [facility] Last Admin: 09/01/17 21:50 Dose: 1 applic CEFTRIAXONE 1 G/50 ML PREMIX (Ceftriaxone 1 Gm-D5w Bag) 50 mls @ 100 mls/hr IVPB DAILY [facility] Last Admin: 09/01/17 11:32 Dose: 100 mls/hr Insulin Aspart (Novolog Vial Sliding Scale -) 1 vial SQ ACHS [facility] PRN Reason: Protocol Last Admin: 09/01/17 21:51 Dose: 10 units Meclizine HCl (Antivert -) 12.5 mg PO BID [facility] Last Admin: 09/01/17 21:50 Dose: 12.5 mg Methylprednisolone Sodium Succinate (Solu-Medrol -) 40 mg IVPUSH Q8H-IV [facility] Last Admin: 09/01/17 18:28 Dose: 40 mg Nifedipine (Procardia Xl -) 30 mg PO DAILY [facility] Last Admin: 09/01/17 11:24 Dose: 30 mg Cyclosporine [ Restasis] 0.05% Eye Drops 1 each OU BID [facility] Last Admin: 09/01/17 21:51 Dose: 1 each Nystatin (Nystop Powder -) 1 applic TP BID [facility] Last Admin: 09/01/17 21:52 Dose: 1 applic Nystatin (Nystatin Oral Suspension -) 500,000 units PO TID [facility] Last Admin: 09/01/17 21:52 Dose: 500,000 units Pantoprazole Sodium (Protonix -) 40 mg PO DAILY [facility] Last Admin: 09/01/17 11:24 Dose: 40 mg Rosuvastatin Calcium (Crestor -) 10 mg PO HS [facility] Last Admin: 09/01/17 21:51 Dose: 10 mg Senna (Senna -) 1 tab PO BID [facility] Last Admin: 09/01/17 21:52 Dose: 1 tab Sodium Chloride ([place] Nasal [place] -) 2 spray NS BID [facility] Last Admin: 09/01/17 21:52 Dose: 2 sprays Tiotropium [place] (Spiriva -) 1 puff IH DAILY [facility] Last Admin: 09/01/17 11:28 Dose: 1 puff Valsartan (Diovan -) 160 mg PO DAILY [facility] Last Admin: 09/01/17 11:24 Dose: 160 mg - Objective Vital Signs: Vital Signs Temperature 99.0 F 09/01/17 18:54 Pulse Rate 94 H 09/01/17 18:54 Respiratory Rate 22 09/01/17 18:54 Blood Pressure 114/50 09/01/17 18:54 O2 Sat by Pulse Oximetry (%) 97 09/01/17 09:00 Constitutional: Yes: Well Nourished, Obese Neck: Yes: WNL, Supple Cardiovascular: Yes: WNL, Regular Rate and Rhythm Respiratory: Yes: WNL, Regular, CTA Bilaterally Gastrointestinal: Yes: WNL, Normal Bowel Sounds, Soft, Abdomen, Obese Labs: CBC, BMP 08/31/17 08:05 08/31/17 08:05 INR, PTT INR 3.78 (0.82-1.09) H 09/01/17 07:28 Problem List - Problems (1) COPD exacerbation Assessment/Plan: Cont IV solumedrol Cont nebulizers/spiriva/symbicort Cont IV antibxs Code(s): J44.1 - CHRONIC OBSTRUCTIVE PULMONARY DISEASE W (ACUTE) EXACERBATION (2) HLD (hyperlipidemia) Assessment/Plan: Cont crestor Code(s): E78.5 - HYPERLIPIDEMIA, UNSPECIFIED (3) Conjunctival hemorrhage of right eye Assessment/Plan: Cont to monitor Code(s): H11.31 - CONJUNCTIVAL HEMORRHAGE, RIGHT EYE (4) Chronic diastolic (congestive) heart failure Assessment/Plan: Cont lasix Monitor electrolytes Code(s): I50.32 - CHRONIC DIASTOLIC (CONGESTIVE) HEART FAILURE (5) Hypertension Assessment/Plan: BP stable Cont procardia/diovan Code(s): I10 - ESSENTIAL (PRIMARY) HYPERTENSION (6) History of pulmonary embolism Code(s): Z86.711 - PERSONAL HISTORY OF PULMONARY EMBOLISM (7) DVT (deep venous thrombosis) Code(s): I82.409 - ACUTE EMBOLISM AND THOMBOS UNSP DEEP VN UNSP LOWER EXTREMITY (8) Hemorrhoid Code(s): K64.9 - UNSPECIFIED HEMORRHOIDS (9) Coronary artery disease Code(s): I25.10 - ATHSCL HEART DISEASE OF [place] CORONARY ARTERY W/O ANG PCTRS (10) Morbid obesity Code(s): E66.01 - MORBID (SEVERE) OBESITY DUE TO EXCESS CALORIES
[2017-09-02] MEDS: methylPREDNISolone NA SUCC 40 MG/1 ML VIAL IVPUSH SCH ×3 (02:30→18:04)
[2017-09-02] MEDS: ALBUTEROL SO4 2.5/IPRATROPIUM 0.5 INH SOL 3 ML VIAL.NEB. NEB PRN ×4 (06:50→23:25)
[2017-09-02] MEDS ORDERED: INSULIN (NOVOLOG) ASPART 100 UNITS/ML 10ML VIAL ONE ×4 (06:56→21:23)
[2017-09-02] MEDS: NYSTATIN 500,000 UNITS/5 ML SUSPENSION PO SCH ×3 (07:57→22:31)
[2017-09-02] MEDS: FUROSEMIDE 40 MG TABLET (FP) PO SCH ×2 (07:57→13:50)
[2017-09-02] MEDS: INSULIN SLIDING SCALE (NOVOLOG) 1 VIAL SQ SCH ×4 (07:58→22:29)
[2017-09-02 08:09] LABS: INR 3.5 (0.82-1.09); PROTHROMBIN TIME (PATIENT) 39.6 SEC (9.98-11.88)
[2017-09-02] MEDS: FERROUS SO4 325 MG TABLET (FP) PO SCH ×3 (08:45→18:04)
[2017-09-02 09:22] LABS: ANION GAP 7 (8-16); CALCIUM 8.2 mg/dL (8.5-10.1); CO2 38 mmol/L (21-32); CREATININE 1.3 mg/dL (0.55-1.02); GLUCOSE,RANDOM 236 mg/dL (74-106)
[2017-09-02] MEDS: NYSTATIN POWDER 100,000 UNITS/GM - 15 GM TOPICAL POWDER TP SCH ×2 (10:00→22:35)
--- NOTE | 2017-09-02 10:02 | PN ---
Progress Note, Physician Chief Complaint: feeling better INR still above range - Current Medication List Current Medications: Active Medications Acetaminophen (Tylenol -) 650 mg PO TID PRN PRN Reason: PAIN Last Admin: 08/25/17 09:42 Dose: 650 mg Albuterol/Ipratropium (Duoneb -) 1 amp NEB Q6H PRN Last Admin: 09/02/17 06:50 Dose: 1 amp Aspirin (Asa -) 81 mg PO DAILY [facility] Last Admin: 09/01/17 11:24 Dose: 81 mg Budesonide/Formoterol Fumarate (Symbicort 160/4.5mcg -) 1 puff IH BID [facility] Last Admin: 09/01/17 21:52 Dose: 1 puff Cholecalciferol (Vitamin D3 -) 2,000 unit PO DAILY [facility] Last Admin: 09/01/17 11:24 Dose: 2,000 unit Ferrous Sulfate (Feosol -) 325 mg PO TIDCM [facility] Last Admin: 09/02/17 08:45 Dose: 325 mg Furosemide (Lasix -) 40 mg PO BID@0600,1400 [facility] Last Admin: 09/02/17 07:57 Dose: Not Given Hydrocortisone (Anusol 2.5% Hc Cream -) 1 applic TP BID [facility] Last Admin: 09/01/17 21:50 Dose: 1 applic CEFTRIAXONE 1 G/50 ML PREMIX (Ceftriaxone 1 Gm-D5w Bag) 50 mls @ 100 mls/hr IVPB DAILY [facility] Last Admin: 09/01/17 11:32 Dose: 100 mls/hr Insulin Aspart (Novolog Vial Sliding Scale -) 1 vial SQ ACHS [facility] PRN Reason: Protocol Last Admin: 09/02/17 07:58 Dose: Not Given Meclizine HCl (Antivert -) 12.5 mg PO BID [facility] Last Admin: 09/01/17 21:50 Dose: 12.5 mg Methylprednisolone Sodium Succinate (Solu-Medrol -) 40 mg IVPUSH Q8H-IV [facility] Last Admin: 09/02/17 02:30 Dose: 40 mg Nifedipine (Procardia Xl -) 30 mg PO DAILY [facility] Last Admin: 09/01/17 11:24 Dose: 30 mg Cyclosporine [ Restasis] 0.05% Eye Drops 1 each OU BID [facility] Last Admin: 09/01/17 21:51 Dose: 1 each Nystatin (Nystop Powder -) 1 applic TP BID [facility] Last Admin: 09/01/17 21:52 Dose: 1 applic Nystatin (Nystatin Oral Suspension -) 500,000 units PO TID [facility] Last Admin: 09/02/17 07:57 Dose: Not Given Pantoprazole Sodium (Protonix -) 40 mg PO DAILY [facility] Last Admin: 09/01/17 11:24 Dose: 40 mg Rosuvastatin Calcium (Crestor -) 10 mg PO HS [facility] Last Admin: 09/01/17 21:51 Dose: 10 mg Senna (Senna -) 1 tab PO BID [facility] Last Admin: 09/01/17 21:52 Dose: 1 tab Sodium Chloride ([place] Nasal [place] -) 2 spray NS BID [facility] Last Admin: 09/01/17 21:52 Dose: 2 sprays Tiotropium [place] (Spiriva -) 1 puff IH DAILY [facility] Last Admin: 09/01/17 11:28 Dose: 1 puff Valsartan (Diovan -) 160 mg PO DAILY [facility] Last Admin: 09/01/17 11:24 Dose: 160 mg - Objective Vital Signs: Vital Signs Temperature 99.0 F 09/01/17 18:54 Pulse Rate 94 H 09/01/17 22:00 Respiratory Rate 20 09/01/17 22:00 Blood Pressure 128/59 09/01/17 22:00 O2 Sat by Pulse Oximetry (%) 98 09/01/17 21:00 Constitutional: Yes: No Distress, Calm Cardiovascular: Yes: Regular Rate and Rhythm Respiratory: Yes: Other (decreased breath sounds b/l) Gastrointestinal: Yes: Soft, Abdomen, Obese Edema: No Neurological: Yes: Alert, Oriented ...Motor Strength: WNL Labs: CBC, BMP 08/31/17 08:05 09/02/17 07:20 INR, PTT INR 3.50 (0.82-1.09) H 09/02/17 07:20 Laboratory Tests 08/31/17 09/02/17 09/02/17 08:05 07:20 07:20 WBC 30.7 H* Hgb 7.4 L Plt Count 279 INR 3.50 H Potassium 5.0 BUN 37 H Creatinine 1.3 H Assessment/Plan Assessment/Plan AECOPD Acute on chronic diastolic CHF, mild exacerbation History of PE on coumadin REC: AE COPD Continue nebs, supp. O2 and steroid taper as per Pulmonary. Maintain INR therapeutic for PE, goal 2-3 HTN is adequately controlled on valsartan and nifedipine. Increase Lasix to BID dosing, CXR shows increased PVC. Follow renal fxn
[2017-09-02] MEDS: NIFEdipine E.R. 30 MG TABLET (FP) PO SCH (10:04)
[2017-09-02] MEDS: ASPIRIN 81 MG CHEWABLE TABLETS PO SCH (10:04)
[2017-09-02] MEDS: SENNOSIDES 8.6MG TABLET (FP) PO SCH ×2 (10:04→22:33)
[2017-09-02] MEDS: PANTOPRAZOLE 40 MG TABLET (FP) PO SCH (10:04)
[2017-09-02] MEDS: VALSARTAN 160 MG TABLET (UD) PO SCH (10:04)
[2017-09-02] MEDS: MECLIZINE HCL 12.5 MG TABLET PO SCH ×2 (10:05→22:30)
[2017-09-02] MEDS: CHOLECALCIFEROL (VITAMIN D3) 1,000 UNIT TABLET (FP) PO SCH (10:05)
[2017-09-02] MEDS: HYDROCORTISONE 2.5% TOPICAL CREAM 30 GM TUBE TP SCH ×2 (10:06→22:36)
[2017-09-02] MEDS: SODIUM CHLORIDE NASAL SPRAY 44 ML BOTTLE NS SCH ×2 (10:07→22:35)
[2017-09-02] MEDS: BUDESONIDE/FORMETEROL FUMARATE 160/4.5 mcg INHALER IH SCH ×2 (10:07→22:31)
[2017-09-02] MEDS: CEFTRIAXONE 1 G/50 ML PREMIX 50 ML IVPB SCH (10:08)
[2017-09-02] MEDS ORDERED: PT OWN MED DRAWER 7, Y5N ONE ×3 (10:24→23:39)
[2017-09-02] MEDS: TIOTROPIUM BROMIDE 18 MCG/INH (DEVICE W/ 5 CAPSULES) IH SCH (10:24)
--- NOTE | 2017-09-02 11:56 | PN ---
Progress Note, Physician History of Present Illness: pulmonary no change still very dyspneic with min exertion - Current Medication List Current Medications: Active Medications Acetaminophen (Tylenol -) 650 mg PO TID PRN PRN Reason: PAIN Last Admin: 08/25/17 09:42 Dose: 650 mg Albuterol/Ipratropium (Duoneb -) 1 amp NEB Q6H PRN Last Admin: 09/02/17 10:47 Dose: 1 amp Aspirin (Asa -) 81 mg PO DAILY [facility] Last Admin: 09/02/17 10:04 Dose: 81 mg Budesonide/Formoterol Fumarate (Symbicort 160/4.5mcg -) 1 puff IH BID [facility] Last Admin: 09/02/17 10:07 Dose: 1 puff Cholecalciferol (Vitamin D3 -) 2,000 unit PO DAILY [facility] Last Admin: 09/02/17 10:05 Dose: 2,000 unit Ferrous Sulfate (Feosol -) 325 mg PO TIDCM [facility] Last Admin: 09/02/17 08:45 Dose: 325 mg Furosemide (Lasix -) 40 mg PO BID@0600,1400 [facility] Last Admin: 09/02/17 07:57 Dose: Not Given Hydrocortisone (Anusol 2.5% Hc Cream -) 1 applic TP BID [facility] Last Admin: 09/02/17 10:06 Dose: 1 applic CEFTRIAXONE 1 G/50 ML PREMIX (Ceftriaxone 1 Gm-D5w Bag) 50 mls @ 100 mls/hr IVPB DAILY [facility] Last Admin: 09/02/17 10:08 Dose: 100 mls/hr Insulin Aspart (Novolog Vial Sliding Scale -) 1 vial SQ ACHS [facility] PRN Reason: Protocol Last Admin: 09/02/17 07:58 Dose: Not Given Meclizine HCl (Antivert -) 12.5 mg PO BID [facility] Last Admin: 09/02/17 10:05 Dose: 12.5 mg Methylprednisolone Sodium Succinate (Solu-Medrol -) 40 mg IVPUSH Q8H-IV [facility] Last Admin: 09/02/17 09:56 Dose: 40 mg Nifedipine (Procardia Xl -) 30 mg PO DAILY [facility] Last Admin: 09/02/17 10:04 Dose: 30 mg Cyclosporine [ Restasis] 0.05% Eye Drops 1 each OU BID [facility] Last Admin: 09/02/17 10:07 Dose: 1 each Nystatin (Nystop Powder -) 1 applic TP BID [facility] Last Admin: 09/01/17 21:52 Dose: 1 applic Nystatin (Nystatin Oral Suspension -) 500,000 units PO TID [facility] Last Admin: 09/02/17 07:57 Dose: Not Given Pantoprazole Sodium (Protonix -) 40 mg PO DAILY [facility] Last Admin: 09/02/17 10:04 Dose: 40 mg Rosuvastatin Calcium (Crestor -) 10 mg PO HS [facility] Last Admin: 09/01/17 21:51 Dose: 10 mg Senna (Senna -) 1 tab PO BID [facility] Last Admin: 09/02/17 10:04 Dose: 1 tab Sodium Chloride ([place] Nasal [place] -) 2 spray NS BID [facility] Last Admin: 09/02/17 10:07 Dose: 2 sprays Tiotropium [place] (Spiriva -) 1 puff IH DAILY [facility] Last Admin: 09/02/17 10:24 Dose: 1 puff Valsartan (Diovan -) 160 mg PO DAILY [facility] Last Admin: 09/02/17 10:04 Dose: 160 mg - Objective Vital Signs: Vital Signs Temperature 99.0 F 09/01/17 18:54 Pulse Rate 102 H 09/02/17 10:50 Respiratory Rate 20 09/01/17 22:00 Blood Pressure 128/59 09/01/17 22:00 O2 Sat by Pulse Oximetry (%) 96 09/02/17 10:50 Constitutional: Yes: Calm, Obese Eyes: Yes: WNL HENT: Yes: WNL Neck: Yes: WNL Cardiovascular: Yes: Regular Rate and Rhythm, S1, S2 Respiratory: Yes: Diminished Gastrointestinal: Yes: Normal Bowel Sounds, Soft Extremities: Yes: WNL Edema: No Labs: CBC, BMP 09/02/17 07:20 INR, PTT INR 3.50 (0.82-1.09) H 09/02/17 07:20 Problem List - Problems (1) Coronary artery disease Code(s): I25.10 - ATHSCL HEART DISEASE OF [place] CORONARY ARTERY W/O ANG PCTRS (2) COPD exacerbation Code(s): J44.1 - CHRONIC OBSTRUCTIVE PULMONARY DISEASE W (ACUTE) EXACERBATION (3) CHF (congestive heart failure) Code(s): I50.9 - HEART FAILURE, UNSPECIFIED (4) History of pulmonary embolism Code(s): Z86.711 - PERSONAL HISTORY OF PULMONARY EMBOLISM (5) Pulmonary hypertension Code(s): I27.2 - OTHER SECONDARY PULMONARY HYPERTENSION * DO NOT USE * (6) SOB (shortness of breath) Code(s): R06.02 - SHORTNESS OF BREATH (7) Chronic diastolic (congestive) heart failure Code(s): I50.32 - CHRONIC DIASTOLIC (CONGESTIVE) HEART FAILURE (8) Anemia Code(s): D64.9 - ANEMIA, UNSPECIFIED (9) Acute on chronic respiratory failure with hypoxia and hypercapnia Code(s): J96.21 - ACUTE AND CHRONIC RESPIRATORY FAILURE WITH HYPOXIA; J96.22 - ACUTE AND CHRONIC RESPIRATORY FAILURE WITH HYPERCAPNIA (10) Morbid obesity Code(s): E66.01 - MORBID (SEVERE) OBESITY DUE TO EXCESS CALORIES Assessment/Plan IMP ACUTE ON CHRONIC HYPOXEMIC/HYPERCAPNEIC RESPIRATORY FAILURE END STAGE COPD O2 DEPENDENT WITH ACUTE EXACERBATION URI DIASTOLIC HF PULMONARY HTN H/O RECURRENT PULMONARY EMBOLI HTN MORBID OBESITY PLAN IV STEROIDS 40Q12 SUPPLEMENTAL O2 INHALED BRONCHODILATORS NIPPV NEEDED DIURETICS DR FOX Problem List - Problems (1) SOB (shortness of breath) Code(s): R06.02 - SHORTNESS OF BREATH (2) Acute on chronic respiratory failure with hypoxia and hypercapnia Code(s): J96.21 - ACUTE AND CHRONIC RESPIRATORY FAILURE WITH HYPOXIA J96.22 - ACUTE AND CHRONIC RESPIRATORY FAILURE WITH HYPERCAPNIA (3) Anemia Code(s): D64.9 - ANEMIA, UNSPECIFIED (4) CHF (congestive heart failure) Code(s): I50.9 - HEART FAILURE, UNSPECIFIED (5) COPD exacerbation Code(s): J44.1 - CHRONIC OBSTRUCTIVE PULMONARY DISEASE W (ACUTE) EXACERBATION (6) Chronic diastolic (congestive) heart failure Code(s): I50.32 - CHRONIC DIASTOLIC (CONGESTIVE) HEART FAILURE (7) Coronary artery disease Code(s): I25.10 - ATHSCL HEART DISEASE OF [place] CORONARY ARTERY W/O ANG PCTRS (8) History of pulmonary embolism Code(s): Z86.711 - PERSONAL HISTORY OF PULMONARY EMBOLISM (9) Morbid obesity Code(s): E66.01 - MORBID (SEVERE) OBESITY DUE TO EXCESS CALORIES (10) Pulmonary hypertension Code(s): I27.2 - OTHER SECONDARY PULMONARY HYPERTENSION * DO NOT USE *
--- NOTE | 2017-09-02 12:26 | PN ---
Progress Note, Physician History of Present Illness: patient feeling a little better no new issues - Current Medication List Current Medications: Active Medications Acetaminophen (Tylenol -) 650 mg PO TID PRN PRN Reason: PAIN Last Admin: 08/25/17 09:42 Dose: 650 mg Albuterol/Ipratropium (Duoneb -) 1 amp NEB Q6H PRN Last Admin: 09/02/17 10:47 Dose: 1 amp Aspirin (Asa -) 81 mg PO DAILY [facility] Last Admin: 09/02/17 10:04 Dose: 81 mg Budesonide/Formoterol Fumarate (Symbicort 160/4.5mcg -) 1 puff IH BID [facility] Last Admin: 09/02/17 10:07 Dose: 1 puff Cholecalciferol (Vitamin D3 -) 2,000 unit PO DAILY [facility] Last Admin: 09/02/17 10:05 Dose: 2,000 unit Ferrous Sulfate (Feosol -) 325 mg PO TIDCM [facility] Last Admin: 09/02/17 12:14 Dose: 325 mg Furosemide (Lasix -) 40 mg PO BID@0600,1400 [facility] Last Admin: 09/02/17 07:57 Dose: Not Given Hydrocortisone (Anusol 2.5% Hc Cream -) 1 applic TP BID [facility] Last Admin: 09/02/17 10:06 Dose: 1 applic CEFTRIAXONE 1 G/50 ML PREMIX (Ceftriaxone 1 Gm-D5w Bag) 50 mls @ 100 mls/hr IVPB DAILY [facility] Last Admin: 09/02/17 10:08 Dose: 100 mls/hr Insulin Aspart (Novolog Vial Sliding Scale -) 1 vial SQ ACHS [facility] PRN Reason: Protocol Last Admin: 09/02/17 12:14 Dose: 6 units Meclizine HCl (Antivert -) 12.5 mg PO BID [facility] Last Admin: 09/02/17 10:05 Dose: 12.5 mg Methylprednisolone Sodium Succinate (Solu-Medrol -) 40 mg IVPUSH Q8H-IV [facility] Last Admin: 09/02/17 09:56 Dose: 40 mg Nifedipine (Procardia Xl -) 30 mg PO DAILY [facility] Last Admin: 09/02/17 10:04 Dose: 30 mg Cyclosporine [ Restasis] 0.05% Eye Drops 1 each OU BID [facility] Last Admin: 09/02/17 10:07 Dose: 1 each Nystatin (Nystop Powder -) 1 applic TP BID [facility] Last Admin: 09/01/17 21:52 Dose: 1 applic Nystatin (Nystatin Oral Suspension -) 500,000 units PO TID [facility] Last Admin: 09/02/17 07:57 Dose: Not Given Pantoprazole Sodium (Protonix -) 40 mg PO DAILY [facility] Last Admin: 09/02/17 10:04 Dose: 40 mg Rosuvastatin Calcium (Crestor -) 10 mg PO HS [facility] Last Admin: 09/01/17 21:51 Dose: 10 mg Senna (Senna -) 1 tab PO BID [facility] Last Admin: 09/02/17 10:04 Dose: 1 tab Sodium Chloride ([place] Nasal [place] -) 2 spray NS BID [facility] Last Admin: 09/02/17 10:07 Dose: 2 sprays Tiotropium Frederica (Spiriva -) 1 puff IH DAILY [facility] Last Admin: 09/02/17 10:24 Dose: 1 puff Valsartan (Diovan -) 160 mg PO DAILY [facility] Last Admin: 09/02/17 10:04 Dose: 160 mg - Objective Vital Signs: Vital Signs Temperature 98.1 F 09/02/17 09:30 Pulse Rate 102 H 09/02/17 10:50 Respiratory Rate 19 09/02/17 09:30 Blood Pressure 130/60 09/02/17 09:30 O2 Sat by Pulse Oximetry (%) 96 09/02/17 10:50 Constitutional: Yes: No Distress, Calm, Obese Cardiovascular: Yes: Regular Rate and Rhythm Respiratory: Yes: Regular, CTA Bilaterally, On Nasal O2 Gastrointestinal: Yes: Normal Bowel Sounds, Soft Musculoskeletal: Yes: WNL Extremities: Yes: WNL Neurological: Yes: Alert, Oriented Labs: CBC, BMP 08/31/17 08:05 09/02/17 07:20 INR, PTT INR 3.50 (0.82-1.09) H 09/02/17 07:20 Assessment/Plan Problem List - Problems (1) SOB (shortness of breath) Code(s): R06.02 - SHORTNESS OF BREATH (2) Acute on chronic respiratory failure with hypoxia and hypercapnia Code(s): J96.21 - ACUTE AND CHRONIC RESPIRATORY FAILURE WITH HYPOXIA J96.22 - ACUTE AND CHRONIC RESPIRATORY FAILURE WITH HYPERCAPNIA (3) Anemia Code(s): D64.9 - ANEMIA, UNSPECIFIED (4) CHF (congestive heart failure) Code(s): I50.9 - HEART FAILURE, UNSPECIFIED (5) COPD exacerbation Code(s): J44.1 - CHRONIC OBSTRUCTIVE PULMONARY DISEASE W (ACUTE) EXACERBATION (6) Chronic diastolic (congestive) heart failure Code(s): I50.32 - CHRONIC DIASTOLIC (CONGESTIVE) HEART FAILURE (7) Coronary artery disease Code(s): I25.10 - ATHSCL HEART DISEASE OF [place] CORONARY ARTERY W/O ANG PCTRS (8) History of pulmonary embolism Code(s): Z86.711 - PERSONAL HISTORY OF PULMONARY EMBOLISM (9) Morbid obesity Code(s): E66.01 - MORBID (SEVERE) OBESITY DUE TO EXCESS CALORIES (10) Pulmonary hypertension Code(s): I27.2 - OTHER SECONDARY PULMONARY HYPERTENSION * DO NOT USE * plan will deescalate tomorrow rest as per primary team starting to do better pul on case
[2017-09-02] MEDS: ROSUVASTATIN CA 10 MG TABLET (FP) PO SCH (22:34)
[2017-09-03] MEDS: methylPREDNISolone NA SUCC 40 MG/1 ML VIAL IVPUSH SCH ×3 (02:23→23:00)
[2017-09-03] MEDS ORDERED: MAGNESIUM HYDROX 2400MG/30ML ORAL SUSPENSION 30 ML CUP PO ONE (03:43)
[2017-09-03] MEDS: POLYETHYLENE GLYCOL 3350 119 GM BTL PO SCH (05:08)
[2017-09-03] MEDS: NYSTATIN 500,000 UNITS/5 ML SUSPENSION PO SCH ×3 (05:40→22:33)
[2017-09-03] MEDS: FUROSEMIDE 40 MG TABLET (FP) PO SCH ×2 (05:40→13:50)
[2017-09-03] MEDS: INSULIN SLIDING SCALE (NOVOLOG) 1 VIAL SQ SCH ×4 (07:10→22:33)
[2017-09-03] MEDS ORDERED: INSULIN (NOVOLOG) ASPART 100 UNITS/ML 10ML VIAL ONE ×2 (07:22→12:05)
[2017-09-03 07:51] LABS: INR 2.58 (0.82-1.09); PROTHROMBIN TIME (PATIENT) 29.1 SEC (9.98-11.88)
[2017-09-03] MEDS: FERROUS SO4 325 MG TABLET (FP) PO SCH ×3 (08:16→17:00)
[2017-09-03] MEDS: ALBUTEROL SO4 2.5/IPRATROPIUM 0.5 INH SOL 3 ML VIAL.NEB. NEB PRN ×3 (08:43→20:54)
--- NOTE | 2017-09-03 09:39 | PN ---
Physical Exam: SUBJECTIVE: Patient seen and examined. She reports she remains dyspneic with minimal exertion- walking to bathroom. OBJECTIVE: Vital Signs Period Temp Pulse Resp BP Sys/Nielsen Pulse Ox Last 24 Hr 98.1 F-99.1 F 79-102 18-20 108-132/55-70 96-100 GENERAL: The patient is awake, alert, and fully oriented, in no acute distress. EYES: PERRL, extraocular movements intact, sclera anicteric, conjunctiva clear. No ptosis. Right subconjunctival hemorrhage noted. NECK: Trachea midline, full range of motion, supple. No JVD present. LUNGS: Breath sounds equal. Diffuse expiratory wheezes noted throughout all farmer. No accessory muscle use noted. HEART: Regular rate and rhythm, S1, S2 without murmur, rub or gallop. ABDOMEN: Soft, nontender, nondistended, normoactive bowel sounds, no guarding, no rebound, no hepatosplenomegaly, no masses. SKIN: Warm, dry, normal turgor, no rashes or lesions noted Laboratory Results - last 24 hr 09/02/17 09/02/17 09/02/17 05:49 07:20 12:07 PT with INR INR Sodium 137 Potassium 5.0 Chloride 92 L Carbon Dioxide 38 H Anion Gap 7 L BUN 37 H Creatinine 1.3 H POC Glucometer 268 252 Random Glucose 236 H D Calcium 8.2 L 09/02/17 09/02/17 09/03/17 17:07 21:00 05:36 PT with INR INR Sodium Potassium Chloride Carbon Dioxide Anion Gap BUN Creatinine POC Glucometer 264 291 271 Random Glucose Calcium 09/03/17 07:10 PT with INR 29.10 H INR 2.58 H Sodium Potassium Chloride Carbon Dioxide Anion Gap BUN Creatinine POC Glucometer Random Glucose Calcium Active Medications Generic Name Dose Route Start Last Admin Trade Name Freq PRN Reason Stop Dose Admin Acetaminophen 650 mg 08/21/17 03:33 08/25/17 09:42 Tylenol - PO 650 mg TID PRN Administration PAIN Albuterol/Ipratropium 1 amp 08/31/17 16:23 09/03/17 08:43 Duoneb - NEB 1 amp Q6H PRN Administration Aspirin 81 mg 08/21/17 10:00 09/02/17 10:04 Asa - PO 81 mg DAILY SAIMA Administration Budesonide/Formoterol Fumarate 1 puff 08/21/17 10:00 09/02/17 22:31 Symbicort 160/4.5mcg - IH 1 puff BID SAIMA Administration Cholecalciferol 2,000 unit 08/21/17 10:00 09/02/17 10:05 Vitamin D3 - PO 2,000 unit DAILY [facility] Administration Ferrous Sulfate 325 mg 08/24/17 20:00 09/03/17 08:16 Feosol - PO 325 mg TIDCM SAIMA Administration Furosemide 40 mg 09/01/17 14:00 09/03/17 05:40 Lasix - PO 40 mg BID@0600,1400 [facility] Administration Hydrocortisone 1 applic 08/22/17 22:00 09/02/17 22:36 Anusol 2.5% Hc Cream - TP 1 applic BID [facility]IMA Administration CEFTRIAXONE 1 G/50 ML PREMIX 50 mls @ 100 mls/hr 08/30/17 15:15 09/02/17 10: 08 Ceftriaxone 1 Gm-D5w Bag IVPB 100 mls/hr DAILY [facility] Administration Insulin Aspart 1 vial 08/21/17 07:00 09/03/17 07:10 Novolog Vial Sliding Scale - SQ 6 units ACHS [facility]IMA Administration Protocol Meclizine HCl 12.5 mg 08/21/17 10:00 09/02/17 22:30 Antivert - PO 12.5 mg BID [facility] Administration Methylprednisolone Sodium Succinate 40 mg 08/31/17 18:00 09/03/17 02:23 Solu-Medrol - IVPUSH 40 mg Q8H-IV [facility] Administration Nifedipine 30 mg 08/21/17 10:00 09/02/17 10:04 Procardia Xl - PO 30 mg DAILY [facility] Administration Cyclosporine [ 1 each 08/29/17 22:00 09/02/17 22:35 Restasis] 0.05% Eye OU 1 each Drops BID [facility] Administration Nystatin 1 applic 08/21/17 22:00 09/02/17 22:35 Nystop Powder - TP 1 applic BID [facility] Administration Nystatin 500,000 units 08/26/17 22:00 09/03/17 05:40 Nystatin Oral Suspension - PO 500,000 units TID [facility] Administration Pantoprazole Sodium 40 mg 08/21/17 10:00 09/02/17 10:04 Protonix - PO 40 mg DAILY [facility] Administration Polyethylene Glycol 17 gm 09/03/17 04:00 09/03/17 05:08 Miralax (For Daily Use) - PO 17 grams DAILY [facility] Administration Rosuvastatin Calcium 10 mg 08/21/17 22:00 09/02/17 22:34 Crestor - PO 10 mg HS [facility] Administration Senna 1 tab 08/23/17 22:00 09/02/17 22:33 Senna - PO 1 tab BID [facility] Administration Sodium Chloride 2 spray 08/27/17 22:00 09/02/17 22:35 [place] Nasal [place] - NS 2 sprays BID [facility] Administration Tiotropium [place] 1 puff 08/21/17 10:00 09/02/17 10:24 Spiriva - IH 1 puff DAILY [facility] Administration Valsartan 160 mg 08/21/17 10:00 09/02/17 10:04 Diovan - PO 160 mg DAILY [facility] Administration Warfarin Sodium 2.5 mg 09/03/17 18:00 Coumadin - PO 09/03/17 18:01 ONCE@1800 ONE ASSESSMENT/PLAN: A: 67yo woman with exacerbation of COPD, CHF, HTN, pulm HTN, DM2. P: COPD exacerbation - cont Spiriva - cont Solumedrol per pulm - cont Symbicort - cont standing Duonebs CHF - Lasix 40mg bid - daily weights - strict I&O's - Diovan HTN - well controlled - Diovan - Nifedipine - Lasix H/O PE - therapeutic INR - restart Coumadin 2.5mg tonight - daily INR Right subconjunctival hematoma - monitor DM - glucose remains elevated- likely from steroid use - FS qACHS - ISS Leukocytosis - CXR with increased congestion- no evidence of PNA - UA with WBC-6 and trace LE - likely reactive from steroids given no fevers but cannot r/o urinary source - Rocephin - trend CBC HLD - Crestor Constipation - senna - colace - Miralax - MOM prn Hemorrhoids - Anusol Morbid obesity - lifestyle modifications discussed with patient F/E/N - diabetic diet - replete prn PPX - therapeutic on Coumadin Dispo- Requires continued inpatient treatment of her acute medical conditions Visit type - Emergency Visit Emergency Visit: Yes ED Registration Date: 08/20/17 Care time: The patient presented to the Emergency Department on the above date and was hospitalized for further evaluation of their emergent condition. - New Patient This patient is new to me today: Yes Date on this admission: 09/03/17 - Critical Care Critical Care patient: No
--- NOTE | 2017-09-03 10:02 | PN ---
Progress Note (short form) - Note Progress Note: Feels less SOB. Some congested cough. No acute events overnight. Intake & Output 08/31/17 09/01/17 09/02/17 09/03/17 23:59 23:59 23:59 23:59 Intake Total 0 1440 800 200 Balance 0 1440 800 200 Last Vital Signs Temp Pulse Resp BP Pulse Ox 99.1 F 89 20 131/70 100 09/03/17 06:00 09/03/17 06:00 09/03/17 06:00 09/03/17 06:00 09/02/17 21:00 Active Medications Acetaminophen (Tylenol -) 650 mg PO TID PRN PRN Reason: PAIN Last Admin: 08/25/17 09:42 Dose: 650 mg Albuterol/Ipratropium (Duoneb -) 1 amp NEB Q6H PRN Last Admin: 09/03/17 08:43 Dose: 1 amp Aspirin (Asa -) 81 mg PO DAILY [facility] Last Admin: 09/02/17 10:04 Dose: 81 mg Budesonide/Formoterol Fumarate (Symbicort 160/4.5mcg -) 1 puff IH BID [facility] Last Admin: 09/02/17 22:31 Dose: 1 puff Cholecalciferol (Vitamin D3 -) 2,000 unit PO DAILY [facility] Last Admin: 09/02/17 10:05 Dose: 2,000 unit Ferrous Sulfate (Feosol -) 325 mg PO TIDCM [facility] Last Admin: 09/03/17 08:16 Dose: 325 mg Furosemide (Lasix -) 40 mg PO BID@0600,1400 [facility] Last Admin: 09/03/17 05:40 Dose: 40 mg Hydrocortisone (Anusol 2.5% Hc Cream -) 1 applic TP BID [facility] Last Admin: 09/02/17 22:36 Dose: 1 applic CEFTRIAXONE 1 G/50 ML PREMIX (Ceftriaxone 1 Gm-D5w Bag) 50 mls @ 100 mls/hr IVPB DAILY [facility] Last Admin: 09/02/17 10:08 Dose: 100 mls/hr Insulin Aspart (Novolog Vial Sliding Scale -) 1 vial SQ ACHS [facility] PRN Reason: Protocol Last Admin: 09/03/17 07:10 Dose: 6 units Meclizine HCl (Antivert -) 12.5 mg PO BID [facility] Last Admin: 09/02/17 22:30 Dose: 12.5 mg Methylprednisolone Sodium Succinate (Solu-Medrol -) 40 mg IVPUSH Q12H [facility] Nifedipine (Procardia Xl -) 30 mg PO DAILY [facility] Last Admin: 09/02/17 10:04 Dose: 30 mg Cyclosporine [ Restasis] 0.05% Eye Drops 1 each OU BID [facility] Last Admin: 09/02/17 22:35 Dose: 1 each Nystatin (Nystop Powder -) 1 applic TP BID [facility] Last Admin: 09/02/17 22:35 Dose: 1 applic Nystatin (Nystatin Oral Suspension -) 500,000 units PO TID [facility] Last Admin: 09/03/17 05:40 Dose: 500,000 units Pantoprazole Sodium (Protonix -) 40 mg PO DAILY [facility] Last Admin: 09/02/17 10:04 Dose: 40 mg Polyethylene Glycol (Miralax (For Daily Use) -) 17 gm PO DAILY [facility] Last Admin: 09/03/17 05:08 Dose: 17 grams Rosuvastatin Calcium (Crestor -) 10 mg PO HS [facility] Last Admin: 09/02/17 22:34 Dose: 10 mg Senna (Senna -) 1 tab PO BID [facility] Last Admin: 09/02/17 22:33 Dose: 1 tab Sodium Chloride ([place] Nasal [place] -) 2 spray NS BID [facility] Last Admin: 09/02/17 22:35 Dose: 2 sprays Tiotropium [place] (Spiriva -) 1 puff IH DAILY [facility] Last Admin: 09/02/17 10:24 Dose: 1 puff Valsartan (Diovan -) 160 mg PO DAILY [facility] Last Admin: 09/02/17 10:04 Dose: 160 mg Warfarin Sodium (Coumadin -) 2.5 mg PO ONCE@1800 ONE Stop: 09/03/17 18:01 Constitutional: Yes: NAD, Obese Eyes: Yes: WNL HENT: Yes: WNL Neck: Yes: WNL Cardiovascular: Yes: Regular Rate and Rhythm, S1, S2 Respiratory: Yes: Diminished Gastrointestinal: Yes: Normal Bowel Sounds, Soft Extremities: Yes: WNL Edema: No Labs: Laboratory Results - last 24 hr 09/02/17 09/02/17 09/02/17 12:07 17:07 21:00 PT with INR INR POC Glucometer 252 264 291 09/03/17 09/03/17 05:36 07:10 PT with INR 29.10 H INR 2.58 H POC Glucometer 271 Problem List - Problems (1) SOB (shortness of breath) Code(s): R06.02 - SHORTNESS OF BREATH (2) Acute on chronic respiratory failure with hypoxia and hypercapnia Code(s): J96.21 - ACUTE AND CHRONIC RESPIRATORY FAILURE WITH HYPOXIA J96.22 - ACUTE AND CHRONIC RESPIRATORY FAILURE WITH HYPERCAPNIA (3) Anemia Code(s): D64.9 - ANEMIA, UNSPECIFIED (4) CHF (congestive heart failure) Code(s): I50.9 - HEART FAILURE, UNSPECIFIED (5) COPD exacerbation Code(s): J44.1 - CHRONIC OBSTRUCTIVE PULMONARY DISEASE W (ACUTE) EXACERBATION (6) Chronic diastolic (congestive) heart failure Code(s): I50.32 - CHRONIC DIASTOLIC (CONGESTIVE) HEART FAILURE (7) Coronary artery disease Code(s): I25.10 - ATHSCL HEART DISEASE OF [place] CORONARY ARTERY W/O ANG PCTRS (8) History of pulmonary embolism Code(s): Z86.711 - PERSONAL HISTORY OF PULMONARY EMBOLISM (9) Morbid obesity Code(s): E66.01 - MORBID (SEVERE) OBESITY DUE TO EXCESS CALORIES (10) Pulmonary hypertension Code(s): I27.2 - OTHER SECONDARY PULMONARY HYPERTENSION * DO NOT USE * Assessment/Plan IMP ACUTE ON CHRONIC HYPOXEMIC/HYPERCAPNEIC RESPIRATORY FAILURE END STAGE COPD O2 DEPENDENT WITH ACUTE EXACERBATION URI DIASTOLIC HF PULMONARY HTN H/O RECURRENT PULMONARY EMBOLI HTN MORBID OBESITY PLAN TAPER IV STEROIDS TO Q12 SUPPLEMENTAL O2 INHALED BRONCHODILATORS NIPPV NEEDED DIURETICS DR MANJARREZ
--- NOTE | 2017-09-03 10:02 | PN ---
Progress Note, Physician Chief Complaint: no new complaints - Current Medication List Current Medications: Active Medications Acetaminophen (Tylenol -) 650 mg PO TID PRN PRN Reason: PAIN Last Admin: 08/25/17 09:42 Dose: 650 mg Albuterol/Ipratropium (Duoneb -) 1 amp NEB Q6H PRN Last Admin: 09/03/17 08:43 Dose: 1 amp Aspirin (Asa -) 81 mg PO DAILY [facility] Last Admin: 09/02/17 10:04 Dose: 81 mg Budesonide/Formoterol Fumarate (Symbicort 160/4.5mcg -) 1 puff IH BID [facility] Last Admin: 09/02/17 22:31 Dose: 1 puff Cholecalciferol (Vitamin D3 -) 2,000 unit PO DAILY [facility] Last Admin: 09/02/17 10:05 Dose: 2,000 unit Ferrous Sulfate (Feosol -) 325 mg PO TIDCM [facility] Last Admin: 09/03/17 08:16 Dose: 325 mg Furosemide (Lasix -) 40 mg PO BID@0600,1400 [facility] Last Admin: 09/03/17 05:40 Dose: 40 mg Hydrocortisone (Anusol 2.5% Hc Cream -) 1 applic TP BID [facility] Last Admin: 09/02/17 22:36 Dose: 1 applic CEFTRIAXONE 1 G/50 ML PREMIX (Ceftriaxone 1 Gm-D5w Bag) 50 mls @ 100 mls/hr IVPB DAILY [facility] Last Admin: 09/02/17 10:08 Dose: 100 mls/hr Insulin Aspart (Novolog Vial Sliding Scale -) 1 vial SQ ACHS [facility] PRN Reason: Protocol Last Admin: 09/03/17 07:10 Dose: 6 units Meclizine HCl (Antivert -) 12.5 mg PO BID [facility] Last Admin: 09/02/17 22:30 Dose: 12.5 mg Methylprednisolone Sodium Succinate (Solu-Medrol -) 40 mg IVPUSH Q8H-IV [facility] Last Admin: 09/03/17 02:23 Dose: 40 mg Nifedipine (Procardia Xl -) 30 mg PO DAILY [facility] Last Admin: 09/02/17 10:04 Dose: 30 mg Cyclosporine [ Restasis] 0.05% Eye Drops 1 each OU BID [facility] Last Admin: 09/02/17 22:35 Dose: 1 each Nystatin (Nystop Powder -) 1 applic TP BID [facility] Last Admin: 09/02/17 22:35 Dose: 1 applic Nystatin (Nystatin Oral Suspension -) 500,000 units PO TID [facility] Last Admin: 09/03/17 05:40 Dose: 500,000 units Pantoprazole Sodium (Protonix -) 40 mg PO DAILY [facility] Last Admin: 09/02/17 10:04 Dose: 40 mg Polyethylene Glycol (Miralax (For Daily Use) -) 17 gm PO DAILY [facility] Last Admin: 09/03/17 05:08 Dose: 17 grams Rosuvastatin Calcium (Crestor -) 10 mg PO HS [facility] Last Admin: 09/02/17 22:34 Dose: 10 mg Senna (Senna -) 1 tab PO BID [facility] Last Admin: 09/02/17 22:33 Dose: 1 tab Sodium Chloride ([place] Nasal [place] -) 2 spray NS BID [facility] Last Admin: 09/02/17 22:35 Dose: 2 sprays Tiotropium [place] (Spiriva -) 1 puff IH DAILY [facility] Last Admin: 09/02/17 10:24 Dose: 1 puff Valsartan (Diovan -) 160 mg PO DAILY [facility] Last Admin: 09/02/17 10:04 Dose: 160 mg Warfarin Sodium (Coumadin -) 2.5 mg PO ONCE@1800 ONE Stop: 09/03/17 18:01 - Objective Vital Signs: Vital Signs Temperature 99.1 F 09/03/17 06:00 Pulse Rate 89 09/03/17 06:00 Respiratory Rate 20 09/03/17 06:00 Blood Pressure 131/70 09/03/17 06:00 O2 Sat by Pulse Oximetry (%) 100 09/02/17 21:00 Constitutional: Yes: No Distress Cardiovascular: Yes: Regular Rate and Rhythm Respiratory: Yes: Other (wheezing upon forced expiration) Gastrointestinal: Yes: Soft, Abdomen, Obese Edema: No Neurological: Yes: Alert, Oriented Labs: CBC, BMP 08/31/17 08:05 09/02/17 07:20 INR, PTT INR 2.58 (0.82-1.09) H 09/03/17 07:10 Laboratory Tests 09/02/17 09/03/17 07:20 07:10 INR 2.58 H Creatinine 1.3 H Assessment/Plan Assessment/Plan AECOPD Acute on chronic diastolic CHF, mild exacerbation History of PE on coumadin REC: AE COPD Continue nebs, supp. O2 and steroid taper as per Pulmonary. Maintain INR therapeutic for PE, goal 2-3, to be resumed tonight Follow renal fxn on Lasix
[2017-09-03] MEDS ORDERED: PT OWN MED DRAWER 7, Y5N ONE ×2 (10:10→10:45)
[2017-09-03] MEDS: ASPIRIN 81 MG CHEWABLE TABLETS PO SCH (10:37)
[2017-09-03] MEDS: CHOLECALCIFEROL (VITAMIN D3) 1,000 UNIT TABLET (FP) PO SCH (10:37)
[2017-09-03] MEDS: TIOTROPIUM BROMIDE 18 MCG/INH (DEVICE W/ 5 CAPSULES) IH SCH (10:38)
[2017-09-03] MEDS: VALSARTAN 160 MG TABLET (UD) PO SCH (10:38)
[2017-09-03] MEDS: BUDESONIDE/FORMETEROL FUMARATE 160/4.5 mcg INHALER IH SCH ×2 (10:38→22:33)
[2017-09-03] MEDS: NIFEdipine E.R. 30 MG TABLET (FP) PO SCH (10:38)
[2017-09-03] MEDS: PANTOPRAZOLE 40 MG TABLET (FP) PO SCH (10:38)
[2017-09-03] MEDS: MECLIZINE HCL 12.5 MG TABLET PO SCH ×2 (10:38→22:33)
[2017-09-03] MEDS: SENNOSIDES 8.6MG TABLET (FP) PO SCH ×2 (10:38→22:33)
[2017-09-03] MEDS: HYDROCORTISONE 2.5% TOPICAL CREAM 30 GM TUBE TP SCH ×2 (10:39→22:34)
[2017-09-03] MEDS: NYSTATIN POWDER 100,000 UNITS/GM - 15 GM TOPICAL POWDER TP SCH ×2 (10:39→22:35)
[2017-09-03] MEDS: SODIUM CHLORIDE NASAL SPRAY 44 ML BOTTLE NS SCH ×2 (10:40→22:35)
[2017-09-03] MEDS: CEFTRIAXONE 1 G/50 ML PREMIX 50 ML IVPB SCH (12:07)
--- NOTE | 2017-09-03 16:55 | PN ---
Progress Note, Physician History of Present Illness: says she is still not able to breath better cough production according to nursing staff they have not seen much sputum production - Current Medication List Current Medications: Active Medications Acetaminophen (Tylenol -) 650 mg PO TID PRN PRN Reason: PAIN Last Admin: 08/25/17 09:42 Dose: 650 mg Albuterol/Ipratropium (Duoneb -) 1 amp NEB Q6H PRN Last Admin: 09/03/17 14:07 Dose: 1 amp Aspirin (Asa -) 81 mg PO DAILY [facility] Last Admin: 09/03/17 10:37 Dose: 81 mg Budesonide/Formoterol Fumarate (Symbicort 160/4.5mcg -) 1 puff IH BID [facility] Last Admin: 09/03/17 10:38 Dose: 1 puff Cholecalciferol (Vitamin D3 -) 2,000 unit PO DAILY [facility] Last Admin: 09/03/17 10:37 Dose: 2,000 unit Ferrous Sulfate (Feosol -) 325 mg PO TIDCM [facility] Last Admin: 09/03/17 12:29 Dose: 325 mg Furosemide (Lasix -) 40 mg PO BID@0600,1400 [facility] Last Admin: 09/03/17 13:50 Dose: 40 mg Hydrocortisone (Anusol 2.5% Hc Cream -) 1 applic TP BID [facility] Last Admin: 09/03/17 10:39 Dose: 1 applic Insulin Aspart (Novolog Vial Sliding Scale -) 1 vial SQ ACHS [facility] PRN Reason: Protocol Last Admin: 09/03/17 12:07 Dose: 6 units Meclizine HCl (Antivert -) 12.5 mg PO BID [facility] Last Admin: 09/03/17 10:38 Dose: 12.5 mg Methylprednisolone Sodium Succinate (Solu-Medrol -) 40 mg IVPUSH Q12H [facility] Last Admin: 09/03/17 10:53 Dose: 40 mg Nifedipine (Procardia Xl -) 30 mg PO DAILY [facility] Last Admin: 09/03/17 10:38 Dose: 30 mg Cyclosporine [ Restasis] 0.05% Eye Drops 1 each OU BID [facility] Last Admin: 09/03/17 10:40 Dose: 1 each Nystatin (Nystop Powder -) 1 applic TP BID [facility] Last Admin: 09/03/17 10:39 Dose: 1 applic Nystatin (Nystatin Oral Suspension -) 500,000 units PO TID [facility] Last Admin: 09/03/17 13:50 Dose: 500,000 units Pantoprazole Sodium (Protonix -) 40 mg PO DAILY [facility] Last Admin: 09/03/17 10:38 Dose: 40 mg Polyethylene Glycol (Miralax (For Daily Use) -) 17 gm PO DAILY [facility] Last Admin: 09/03/17 05:08 Dose: 17 grams Rosuvastatin Calcium (Crestor -) 10 mg PO HS [facility] Last Admin: 09/02/17 22:34 Dose: 10 mg Senna (Senna -) 1 tab PO BID [facility] Last Admin: 09/03/17 10:38 Dose: 1 tab Sodium Chloride ([place] Nasal [place] -) 2 spray NS BID [facility] Last Admin: 09/03/17 10:40 Dose: 1 sprays Tiotropium [place] (Spiriva -) 1 puff IH DAILY [facility] Last Admin: 09/03/17 10:38 Dose: 1 puff Valsartan (Diovan -) 160 mg PO DAILY [facility] Last Admin: 09/03/17 10:38 Dose: 160 mg Warfarin Sodium (Coumadin -) 2.5 mg PO ONCE@1800 ONE Stop: 09/03/17 18:01 - Objective Vital Signs: Vital Signs Temperature 98.4 F 09/03/17 14:36 Pulse Rate 110 H 09/03/17 14:36 Respiratory Rate 21 09/03/17 14:36 Blood Pressure 150/69 09/03/17 14:36 O2 Sat by Pulse Oximetry (%) 100 09/03/17 11:08 Constitutional: Yes: No Distress, Calm, Obese Cardiovascular: Yes: S1, S2 Respiratory: Yes: On Nasal O2, Poor Air Entry, Rhonchi Gastrointestinal: Yes: Normal Bowel Sounds, Soft Musculoskeletal: Yes: WNL Extremities: Yes: WNL Neurological: Yes: Alert, Oriented Psychiatric: Yes: Alert Labs: CBC, BMP 08/31/17 08:05 09/02/17 07:20 INR, PTT INR 2.58 (0.82-1.09) H 09/03/17 07:10 Assessment/Plan Problem List - Problems (1) SOB (shortness of breath) Code(s): R06.02 - SHORTNESS OF BREATH (2) Acute on chronic respiratory failure with hypoxia and hypercapnia Code(s): J96.21 - ACUTE AND CHRONIC RESPIRATORY FAILURE WITH HYPOXIA J96.22 - ACUTE AND CHRONIC RESPIRATORY FAILURE WITH HYPERCAPNIA (3) Anemia Code(s): D64.9 - ANEMIA, UNSPECIFIED (4) CHF (congestive heart failure) Code(s): I50.9 - HEART FAILURE, UNSPECIFIED (5) COPD exacerbation Code(s): J44.1 - CHRONIC OBSTRUCTIVE PULMONARY DISEASE W (ACUTE) EXACERBATION (6) Chronic diastolic (congestive) heart failure Code(s): I50.32 - CHRONIC DIASTOLIC (CONGESTIVE) HEART FAILURE (7) Coronary artery disease Code(s): I25.10 - ATHSCL HEART DISEASE OF [place] CORONARY ARTERY W/O ANG PCTRS (8) History of pulmonary embolism Code(s): Z86.711 - PERSONAL HISTORY OF PULMONARY EMBOLISM (9) Morbid obesity Code(s): E66.01 - MORBID (SEVERE) OBESITY DUE TO EXCESS CALORIES (10) Pulmonary hypertension Code(s): I27.2 - OTHER SECONDARY PULMONARY HYPERTENSION * DO NOT USE * plan will stop abx will check cbc incentive schuyler rest as per primary team
[2017-09-03] MEDS ORDERED: WARFARIN NA 2.5 MG TABLET (FP) PO ONE (18:00)
[2017-09-03] MEDS: ROSUVASTATIN CA 10 MG TABLET (FP) PO SCH (22:34)
[2017-09-03] MEDS: ACETAMINOPHEN 325 MG TABLET (FP) PO PRN (23:56)
[2017-09-04] MEDS: NYSTATIN 500,000 UNITS/5 ML SUSPENSION PO SCH ×3 (05:43→21:40)
[2017-09-04] MEDS: FUROSEMIDE 40 MG TABLET (FP) PO SCH ×2 (05:43→14:07)
[2017-09-04] MEDS: INSULIN SLIDING SCALE (NOVOLOG) 1 VIAL SQ SCH ×4 (06:10→21:40)
[2017-09-04] MEDS: ALBUTEROL SO4 2.5/IPRATROPIUM 0.5 INH SOL 3 ML VIAL.NEB. NEB PRN ×2 (06:34→14:44)
[2017-09-04 07:11] LABS: MCH 21.8 pg (25.7-33.7); MCHC 28.4 g/dl (32.0-36.0); MEAN CELL VOLUME 76.8 fl (80-96); PLATELET COUNT 231 K/MM3 (134-434); WHITE BLOOD COUNT 28.6 K/mm3 (4.0-10.0)
[2017-09-04 07:20] LABS: INR 1.86 (0.82-1.09)
[2017-09-04 07:46] LABS: ANION GAP 2 (8-16); CALCIUM 8.1 mg/dL (8.5-10.1); CO2 42 mmol/L (21-32); GLUCOSE,RANDOM 216 mg/dL (74-106)
[2017-09-04 07:47] LABS: CREATININE 1.3 mg/dL (0.55-1.02)
[2017-09-04 08:44] LABS: PLATELET ESTIMATE ADEQUATE (NORMAL)
[2017-09-04] MEDS ORDERED: PT OWN MED DRAWER 7, Y5N ONE ×2 (08:47→14:05)
[2017-09-04] MEDS: FERROUS SO4 325 MG TABLET (FP) PO SCH ×3 (09:29→17:05)
[2017-09-04] MEDS ORDERED: methylPREDNISolone NA SUCC 40 MG/1 ML VIAL IVPUSH ONE (09:44)
--- NOTE | 2017-09-04 09:45 | PN ---
Physical Exam: SUBJECTIVE: Patient seen and examined, states she is experiencing shortness of breath at rest. Given Solumedrol @ 0600 this a.m. with minimal relief. OBJECTIVE: Patient experiencing shortness of breath at rest Has not received her morning dose of Solumedrol yet Chest xray Lidoderm patch for right shoulder discomfort K 5.7, repeat potassium levels at 12 Vital Signs Period Temp Pulse Resp BP Sys/Nielsen Pulse Ox Last 24 Hr 98.4 F-98.5 F 73-110 20-22 124-152/62-92 100-100 GENERAL: The patient is awake, alert, and fully oriented, in mild respiratory distress. HEAD: Normal with no signs of trauma. EYES: PERRL, extraocular movements intact, sclera anicteric, conjunctiva clear. No ptosis. ENT: Ears normal, nares patent, oropharynx clear without exudates, moist mucous membranes. NECK: Trachea midline, full range of motion, supple. LUNGS: +scattered wheezing, on 2 liters of nasal cannula HEART: Regular rate and rhythm ABDOMEN: soft obese abdomen, no abdominal pain EXTREMITIES: 2+ pulses, warm, well-perfused, no edema. NEUROLOGICAL: Normal speech, gait not observed. PSYCH: Normal mood, normal affect. SKIN: Warm, dry, normal turgor, scattered bruising on both arms Laboratory Results - last 24 hr 09/03/17 09/03/17 09/03/17 12:02 16:43 22:29 WBC RBC Hgb Hct MCV MCH MCHC RDW Plt Count MPV Total Counted Neutrophils % Neutrophils % (Manual) Band Neutrophils % Lymphocytes % Lymphocytes % (Manual) Monocytes % Monocytes % (Manual) Eosinophils % (Manual) Basophils % (Manual) Myelocytes % (Man) Promyelocytes % (Man) Blast Cells % (Manual) Nucleated RBC % Metamyelocytes Hypersegmented Neuts Plasma Cells Smudge Cells Other Cell Type Hypochromia Toxic Granulation Dohle Bodies Rupal Rods Platelet Estimate Platelet Comment RBC Morphology Polychromasia Poikilocytosis Basophilic Stippling Anisocytosis Microcytosis Macrocytosis Spherocytes Siderocytes Sickle Cells Target Cells Tear Drop Cells Ovalocytes Stomatocytes Helmet Cells [place] Bodies [place] Rings Yazmin Cells Acanthocytes (Spur) Rouleaux Fragmented RBCs Schistocytes PT with INR INR Sodium Potassium Chloride Carbon Dioxide Anion Gap BUN Creatinine POC Glucometer 282 228 280 Random Glucose Calcium 11/10/17 11/10/17 11/10/17 05:41 06:15 06:15 WBC 28.6 H RBC 3.19 L Hgb 7.0 L Hct 24.5 L MCV 76.8 L MCH 21.8 L MCHC 28.4 L RDW 16.0 H Plt Count 231 MPV 9.0 Total Counted Neutrophils % 91.0 H Neutrophils % (Manual) Band Neutrophils % Lymphocytes % 2.0 L D Lymphocytes % (Manual) Monocytes % 3.0 L Monocytes % (Manual) Eosinophils % (Manual) Basophils % (Manual) Myelocytes % (Man) Promyelocytes % (Man) Blast Cells % (Manual) Nucleated RBC % Metamyelocytes Hypersegmented Neuts Plasma Cells Smudge Cells Other Cell Type Hypochromia Toxic Granulation Dohle Bodies Rupal Rods Platelet Estimate Adequate Platelet Comment No clumping noted RBC Morphology Polychromasia Poikilocytosis Basophilic Stippling Anisocytosis Microcytosis Macrocytosis Spherocytes Siderocytes Sickle Cells Target Cells Tear Drop Cells Ovalocytes Stomatocytes Helmet Cells [place] Bodies [place] Rings Yazmin Cells Acanthocytes (Spur) Rouleaux Fragmented RBCs Schistocytes PT with INR 21.00 H INR 1.86 H Sodium Potassium Chloride Carbon Dioxide Anion Gap BUN Creatinine POC Glucometer 238 Random Glucose Calcium 09/04/17 09/04/17 06:15 06:15 WBC RBC Hgb Hct MCV MCH MCHC RDW Plt Count MPV Total Counted Cancelled Neutrophils % Neutrophils % (Manual) Cancelled Band Neutrophils % Cancelled Lymphocytes % Lymphocytes % (Manual) Cancelled Monocytes % Monocytes % (Manual) Cancelled Eosinophils % (Manual) Cancelled Basophils % (Manual) Cancelled Myelocytes % (Man) Cancelled Promyelocytes % (Man) Cancelled Blast Cells % (Manual) Cancelled Nucleated RBC % Cancelled Metamyelocytes Cancelled Hypersegmented Neuts Cancelled Plasma Cells Cancelled Smudge Cells Cancelled Other Cell Type Cancelled Hypochromia Cancelled Toxic Granulation Cancelled Dohle Bodies Cancelled Rupal Rods Cancelled Platelet Estimate Cancelled Platelet Comment Cancelled RBC Morphology Polychromasia Cancelled Poikilocytosis Cancelled Basophilic Stippling Cancelled Anisocytosis Cancelled Microcytosis Cancelled Macrocytosis Cancelled Spherocytes Cancelled Siderocytes Cancelled Sickle Cells Cancelled Target Cells Cancelled Tear Drop Cells Cancelled Ovalocytes Cancelled Stomatocytes Cancelled Helmet Cells Cancelled [place] Bodies Cancelled [place] Rings Cancelled [place] Cells Cancelled Acanthocytes (Spur) Cancelled Rouleaux Cancelled Fragmented RBCs Cancelled Schistocytes Cancelled PT with INR INR Sodium 136 Potassium 5.7 H Chloride 92 L Carbon Dioxide 42 H Anion Gap 2 L BUN 41 H Creatinine 1.3 H POC Glucometer Random Glucose 216 H Calcium 8.1 L Active Medications Generic Name Dose Route Start Last Admin Trade Name Freq PRN Reason Stop Dose Admin Acetaminophen 650 mg 08/21/17 03:33 09/03/17 23:56 Tylenol - PO 650 mg TID PRN Administration PAIN Albuterol/Ipratropium 1 amp 08/31/17 16:23 09/04/17 06:34 Duoneb - NEB 1 amp Q6H PRN Administration Aspirin 81 mg 08/21/17 10:00 09/03/17 10:37 Asa - PO 81 mg DAILY SAIMA Administration Budesonide/Formoterol Fumarate 1 puff 08/21/17 10:00 09/03/17 22:33 Symbicort 160/4.5mcg - IH 1 puff BID SAIMA Administration Cholecalciferol 2,000 unit 08/21/17 10:00 09/03/17 10:37 Vitamin D3 - PO 2,000 unit DAILY SAIMA Administration Ferrous Sulfate 325 mg 08/24/17 20:00 09/04/17 09:29 Feosol - PO 325 mg TIDCM SAIMA Administration Furosemide 40 mg 09/01/17 14:00 09/04/17 05:43 Lasix - PO 40 mg BID@0600,1400 SAIMA Administration Hydrocortisone 1 applic 08/22/17 22:00 09/03/17 22:34 Anusol 2.5% Hc Cream - TP 1 applic BID SAIMA Administration Insulin Aspart 1 vial 08/21/17 07:00 09/04/17 06:10 Novolog Vial Sliding Scale - SQ 4 units ACHS SAIMA Administration Protocol Meclizine HCl 12.5 mg 08/21/17 10:00 09/03/17 22:33 Antivert - PO 12.5 mg BID SAIMA Administration Methylprednisolone Sodium Succinate 40 mg 09/03/17 10:45 09/03/17 23:00 Solu-Medrol - IVPUSH 40 mg Q12H SAIMA Administration Nifedipine 30 mg 08/21/17 10:00 09/03/17 10:38 Procardia Xl - PO 30 mg DAILY SAIMA Administration Cyclosporine [ 1 each 08/29/17 22:00 09/03/17 22:34 Restasis] 0.05% Eye OU 1 each Drops BID SAIMA Administration Nystatin 1 applic 08/21/17 22:00 09/03/17 22:35 Nystop Powder - TP 1 applic BID SAIMA Administration Nystatin 500,000 units 08/26/17 22:00 09/04/17 05:43 Nystatin Oral Suspension - PO 500,000 units TID SAIMA Administration Pantoprazole Sodium 40 mg 08/21/17 10:00 09/03/17 10:38 Protonix - PO 40 mg DAILY SAIMA Administration Polyethylene Glycol 17 gm 09/03/17 04:00 09/03/17 05:08 Miralax (For Daily Use) - PO 17 grams DAILY SAIMA Administration Rosuvastatin Calcium 10 mg 08/21/17 22:00 09/03/17 22:34 Crestor - PO 10 mg HS SAIMA Administration Senna 1 tab 08/23/17 22:00 09/03/17 22:33 Senna - PO 1 tab BID SAIMA Administration Sodium Chloride 2 spray 08/27/17 22:00 09/03/17 22:35 [place] Nasal [place] - NS 2 sprays BID SAIMA Administration Tiotropium [place] 1 puff 08/21/17 10:00 09/03/17 10:38 Spiriva - IH 1 puff DAILY SAIMA Administration Valsartan 160 mg 08/21/17 10:00 09/03/17 10:38 Diovan - PO 160 mg DAILY SAIMA Administration ASSESSMENT/PLAN: Patient is a 67 year old female with a significant past medical history of COPD , CHF, HTN, pulm HTN, diabetes and anemia. She presents to the ED on 2015 with worsening shortness of breath and was found to have COPD exacerbation.. Pulmonary COPD exacerbation, acute on chronic Experiencing shortness of breath again today with scattered wheezing Chest xray shows no evidence of vascular congestion Continue on Spiriva, Symbicort Solumedrol 40mg IV BID Supplemental oxygen, duonebs q6 Monitor respiratory status on Solumedrol taper Pulmonary following H/O PE Coumadin 2.5mg, monitor INR daily INR 1.86 (goal 2-3) Cardiology: HLD, chronicc on Crestor CHF, chronic On Lasix PO 40mg BID Monitor daily weights, strict intake/output HTN, chronic, controlled On Diovan, Nifedipine Endocrine: Diabetes, chronic glucose remains elevated- likely from steroid use Novolog, monitor BGMs Leukocytosis, improving No evidence of PNA, leukocytosis likely due to steroid use Continue to trend Constipation, chronic On Miralax, senna Hematology: Anemia, likely chronic Venofer ordered by heme Has received Venofer infusions in the past On Ferrous sulfate TID but still anemic, will continue PO iron and venofer as per heme notes Heme consulted, as they followed pt on previous admission F.E.N. Fluids: tolerating PO Electrolytes: monitor Nutrition: diabetic diet DVT PPX: Continue on Coumadin GI: Protonix Dispo- Requires continued inpatient treatment of her acute medical conditions Visit type - Emergency Visit Emergency Visit: Yes ED Registration Date: 08/20/17 Care time: The patient presented to the Emergency Department on the above date and was hospitalized for further evaluation of their emergent condition. - New Patient This patient is new to me today: Yes Date on this admission: 09/04/17 - Critical Care Critical Care patient: No - Discharge Referral Referred to [facility] No
[2017-09-04] MEDS ORDERED: POLYETHYLENE GLYCOL 3350 119 GM BTL PO ONE (09:48)
[2017-09-04] MEDS ORDERED: SODIUM POLYSTYRENE SULFONATE 15 GM/60 ML BOTTLE PO ONE (10:30)
[2017-09-04] MEDS: VALSARTAN 160 MG TABLET (UD) PO SCH (11:03)
[2017-09-04] MEDS: PANTOPRAZOLE 40 MG TABLET (FP) PO SCH (11:03)
[2017-09-04] MEDS: SENNOSIDES 8.6MG TABLET (FP) PO SCH ×2 (11:03→21:40)
[2017-09-04] MEDS: NIFEdipine E.R. 30 MG TABLET (FP) PO SCH (11:03)
[2017-09-04] MEDS: CHOLECALCIFEROL (VITAMIN D3) 1,000 UNIT TABLET (FP) PO SCH (11:03)
[2017-09-04] MEDS: ASPIRIN 81 MG CHEWABLE TABLETS PO SCH (11:03)
[2017-09-04] MEDS: LIDOCAINE 5% TOPICAL PATCH TP SCH (11:04)
[2017-09-04] MEDS: TIOTROPIUM BROMIDE 18 MCG/INH (DEVICE W/ 5 CAPSULES) IH SCH (11:04)
[2017-09-04] MEDS: MECLIZINE HCL 12.5 MG TABLET PO SCH ×2 (11:04→21:40)
[2017-09-04] MEDS: HYDROCORTISONE 2.5% TOPICAL CREAM 30 GM TUBE TP SCH ×2 (11:05→21:40)
[2017-09-04] MEDS: BUDESONIDE/FORMETEROL FUMARATE 160/4.5 mcg INHALER IH SCH ×2 (11:05→21:41)
[2017-09-04] MEDS: POLYETHYLENE GLYCOL 3350 119 GM BTL PO SCH (11:06)
[2017-09-04] MEDS: NYSTATIN POWDER 100,000 UNITS/GM - 15 GM TOPICAL POWDER TP SCH ×2 (11:06→21:41)
[2017-09-04] MEDS: SODIUM CHLORIDE NASAL SPRAY 44 ML BOTTLE NS SCH ×2 (11:07→21:41)
[2017-09-04] MEDS: methylPREDNISolone NA SUCC 40 MG/1 ML VIAL IVPUSH SCH ×2 (11:07→22:42)
--- NOTE | 2017-09-04 12:52 | CONSULT ---
Consult Consult Specialty:: Hematology Reason for Consultation:: Anemia - History of Present Illness History of Present Illness: 67F with a PMH of COPD (on 4L at home), PE, and morbid obesity, who presents to the ED with shortness of breath. per patient her baseline SOB got worse yesterday when she was comming down the stairs so she came to ER: got lasix,steroids,abx in the eR During the hospitalization she is being treated for COPD exacerbation. 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: CVA Cardio/Vascular: Yes: CHF (chronic diastolic), HTN, Hyperlipdemia Pulmonary: Yes: COPD, O2 Dependent, Pulmonary Embolus, Other (pulmonary HTN) - Alcohol/Substance Use Hx Alcohol Use: No - Smoking History Smoking history: Unknown if ever smoked Have you smoked in the past 12 months: No Aproximately how many cigarettes per day: 0 If you are a former smoker, when did you quit?: 1998 - Social History Usual Living Arrangement: Alone History of Recent Travel: No Home Medications - Allergies Allergies/Adverse Reactions: Allergies Allergy/AdvReac Type Severity Reaction Status Date / Time No Known Allergies Allergy Verified 06/14/17 15:30 - Home Medications Home Medications: Ambulatory Orders Mometasone Furoate [Nasonex] 1 - 2 inh NS PRN 01/21/14 Olmesartan/Hydrochlorothiazide [Benicar Hct 20-12.5 mg Tablet] 1 each PO DAILY 01/21/14 Promethazine/Phenyleph/Codeine [Promethazine Vc-Codeine Syrup] 120 ml PO PRN Cholecalciferol (Vitamin D3) [Vitamin D3] 2,000 unit PO DAILY #30 capsule Docusate Sodium [Colace -] 200 mg PO PRN #30 capsule 08/03/14 Clobetasol Propionate/Emoll [Olux-E 0.05% Foam] 100 gm TP PRN 11/20/15 Acetaminophen [Tylenol] 650 mg PO TID PRN 11/23/15 Colchicine [Colcrys] 0.6 mg PO DAILY PRN 11/23/15 Nystatin Oral Suspension - [Nystatin Oral Susp 354451 Units/5 ML -] 5 ml PO BID 11/23/15 Budesonide/Formeterol Fumarate [SYMBICORT 160/4.5mcg -] 1 inh PO BID #7 inhaler 11/26/15 Cyclosporine [Restasis] 1 each OP BID #30 droperette 11/26/15 Ferrous Sulfate [Feosol] 325 mg PO TID #30 ud 11/26/15 Furosemide [Lasix -] 20 mg PO BID #60 tablet 11/26/15 Guaifenesin AC [Robitussin AC -] 5 ml PO Q6H PRN #30 liquid 11/26/15 Meclizine HCl [Antivert -] 12.5 mg PO BID #30 tablet 11/26/15 Nifedipine ER [Procardia XL -] 30 mg PO DAILY #30 tab.er.24 11/26/15 Pantoprazole Sodium [Protonix -] 40 mg PO DAILY #30 tablet.ec 11/26/15 Rosuvastatin Calcium [Crestor] 10 mg PO HS #30 tablet 11/26/15 Tiotropium [place] [Spiriva] 1 inh PO DAILY #7 inh 11/26/15 Warfarin Na [Coumadin -] 3 mg PO HS 06/14/17 Albuterol 0.083% Nebulizer Claudia [Ventolin 0.083% Nebulizer Soln -] 1 amp NEB TIDR amp 06/24/17 Nystatin Cream [Mycostatin Cream -] 1 applic TP BID applic 06/24/17 Prednisone [Deltasone -] 40 mg PO DAILY tablet 06/24/17 Family Disease History - Family Disease History Family History: Denies Review of Systems - Review of Systems Constitutional: denies: Diaphoresis, Fever, Lethargy, Loss of Appetite HENT: reports: Hearing Loss Neck: denies: Decreased ROM, Lumps Respiratory: reports: Cough, Exercise Intolerance, Snoring, SOB, SOB on Exertion Gastrointestinal: denies: Abdominal Pain Neurological: reports: No Symptoms Endocrine: reports: No Symptoms Hematology/Lymphatic: reports: No Symptoms Physical Exam Vital Signs: Vital Signs Temperature 99.6 F 09/04/17 10:00 Pulse Rate 107 H 09/04/17 10:00 Respiratory Rate 22 09/04/17 10:00 Blood Pressure 137/76 09/04/17 10:00 O2 Sat by Pulse Oximetry (%) 100 09/04/17 11:30 Constitutional: Yes: Moderate Distress, Other (obese) HENT: Yes: Atraumatic, Normocephalic Neck: Yes: Supple Respiratory: Yes: Regular, SOB on Exertion Gastrointestinal: Yes: WNL, Abdomen, Obese Edema: Yes Psychiatric: Yes: Alert, Oriented Labs: CBC, BMP 09/04/17 06:15 09/04/17 12:00 Imaging - Results X-ray: Report Reviewed Assessment/Plan Chronic Microcytic anemia Leukocytosis Pulmonary emboli Acute COPD exacerbation End Stage Lung disease ( O2 dependant) dCHF Pulmonary HTN ( 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 -Etiology of the chronic microcytic anemia is unclear at this time. 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 Resumed today -continues to be on IV steroids -COPD/dCHF as per Pulm and Cardiology d/w pt in detail dKrisw RN will follow
--- NOTE | 2017-09-04 15:07 | PN ---
Progress Note, Physician History of Present Illness: PULMONARY ALERT,STILL CONGESTED,+COUGH - Current Medication List Current Medications: Active Medications Acetaminophen (Tylenol -) 650 mg PO TID PRN PRN Reason: PAIN Last Admin: 09/03/17 23:56 Dose: 650 mg Albuterol/Ipratropium (Duoneb -) 1 amp NEB Q6H PRN Last Admin: 09/04/17 14:44 Dose: 1 amp Aspirin (Asa -) 81 mg PO DAILY [facility] Last Admin: 09/04/17 11:03 Dose: 81 mg Budesonide/Formoterol Fumarate (Symbicort 160/4.5mcg -) 1 puff IH BID [facility] Last Admin: 09/04/17 11:05 Dose: 1 puff Cholecalciferol (Vitamin D3 -) 2,000 unit PO DAILY [facility] Last Admin: 09/04/17 11:03 Dose: 2,000 unit Ferrous Sulfate (Feosol -) 325 mg PO TIDCM [facility] Last Admin: 09/04/17 12:33 Dose: 325 mg Furosemide (Lasix -) 40 mg PO BID@0600,1400 [facility] Last Admin: 09/04/17 14:07 Dose: 40 mg Hydrocortisone (Anusol 2.5% Hc Cream -) 1 applic TP BID [facility] Last Admin: 09/04/17 11:05 Dose: 1 applic Iron Sucrose 100 mg/ Sodium (Chloride) 100 mls @ 200 mls/hr IVPB DAILY [facility] Stop: 09/08/17 10:29 Insulin Aspart (Novolog Vial Sliding Scale -) 1 vial SQ ACHS SAIMA PRN Reason: Protocol Last Admin: 09/04/17 12:33 Dose: 2 units Lidocaine (Lidoderm Patch -) 1 patch TP DAILY [facility] Last Admin: 09/04/17 11:04 Dose: 1 patch Meclizine HCl (Antivert -) 12.5 mg PO BID [facility] Last Admin: 09/04/17 11:04 Dose: 12.5 mg Methylprednisolone Sodium Succinate (Solu-Medrol -) 40 mg IVPUSH Q12H [facility] Last Admin: 09/04/17 11:07 Dose: 40 mg Miscellaneous (Lidoderm Patch Removal) 1 each MC DAILY@2200 [facility] Nifedipine (Procardia Xl -) 30 mg PO DAILY [facility] Last Admin: 09/04/17 11:03 Dose: 30 mg Cyclosporine [ Restasis] 0.05% Eye Drops 1 each OU BID [facility] Last Admin: 09/04/17 11:04 Dose: 1 each Nystatin (Nystop Powder -) 1 applic TP BID [facility] Last Admin: 09/04/17 11:06 Dose: 1 applic Nystatin (Nystatin Oral Suspension -) 500,000 units PO TID [facility] Last Admin: 09/04/17 14:08 Dose: 500,000 units Pantoprazole Sodium (Protonix -) 40 mg PO DAILY [facility] Last Admin: 09/04/17 11:03 Dose: 40 mg Polyethylene Glycol (Miralax (For Daily Use) -) 17 gm PO DAILY [facility] Last Admin: 09/04/17 11:06 Dose: 17 grams Rosuvastatin Calcium (Crestor -) 10 mg PO HS [facility] Last Admin: 09/03/17 22:34 Dose: 10 mg Senna (Senna -) 1 tab PO BID [facility] Last Admin: 09/04/17 11:03 Dose: 1 tab Sodium Chloride ([place] Nasal [place] -) 2 spray NS BID [facility] Last Admin: 09/04/17 11:07 Dose: 2 sprays Tiotropium [place] (Spiriva -) 1 puff IH DAILY [facility] Last Admin: 09/04/17 11:04 Dose: 1 puff Valsartan (Diovan -) 160 mg PO DAILY [facility] Last Admin: 09/04/17 11:03 Dose: 160 mg Warfarin Sodium (Coumadin -) 2.5 mg PO Q2D@1800 [facility] - Objective Vital Signs: Vital Signs Temperature 99.6 F 09/04/17 10:00 Pulse Rate 107 H 09/04/17 10:00 Respiratory Rate 22 09/04/17 10:00 Blood Pressure 137/76 09/04/17 10:00 O2 Sat by Pulse Oximetry (%) 100 09/04/17 11:30 Constitutional: Yes: Calm, Obese Eyes: Yes: WNL HENT: Yes: WNL Neck: Yes: WNL Cardiovascular: Yes: Regular Rate and Rhythm, S1, S2 Respiratory: Yes: Wheezes (FEW WHEEZES) Gastrointestinal: Yes: Normal Bowel Sounds, Soft Extremities: Yes: WNL Edema: No Labs: CBC, BMP 09/04/17 06:15 09/04/17 12:00 INR, PTT INR 1.86 (0.82-1.09) H 09/04/17 06:15 Problem List - Problems (1) Coronary artery disease Code(s): I25.10 - ATHSCL HEART DISEASE OF [place] CORONARY ARTERY W/O ANG PCTRS (2) COPD exacerbation Code(s): J44.1 - CHRONIC OBSTRUCTIVE PULMONARY DISEASE W (ACUTE) EXACERBATION (3) CHF (congestive heart failure) Code(s): I50.9 - HEART FAILURE, UNSPECIFIED (4) History of pulmonary embolism Code(s): Z86.711 - PERSONAL HISTORY OF PULMONARY EMBOLISM (5) Pulmonary hypertension Code(s): I27.2 - OTHER SECONDARY PULMONARY HYPERTENSION * DO NOT USE * (6) SOB (shortness of breath) Code(s): R06.02 - SHORTNESS OF BREATH (7) Chronic diastolic (congestive) heart failure Code(s): I50.32 - CHRONIC DIASTOLIC (CONGESTIVE) HEART FAILURE (8) Anemia Code(s): D64.9 - ANEMIA, UNSPECIFIED (9) Acute on chronic respiratory failure with hypoxia and hypercapnia Code(s): J96.21 - ACUTE AND CHRONIC RESPIRATORY FAILURE WITH HYPOXIA; J96.22 - ACUTE AND CHRONIC RESPIRATORY FAILURE WITH HYPERCAPNIA (10) Morbid obesity Code(s): E66.01 - MORBID (SEVERE) OBESITY DUE TO EXCESS CALORIES Assessment/Plan IMP ACUTE ON CHRONIC HYPOXEMIC/HYPERCAPNEIC RESPIRATORY FAILURE END STAGE COPD O2 DEPENDENT WITH ACUTE EXACERBATION URI DIASTOLIC HF PULMONARY HTN H/O RECURRENT PULMONARY EMBOLI HTN MORBID OBESITY PLAN IV STEROIDS 40Q12 SUPPLEMENTAL O2 INHALED BRONCHODILATORS NIPPV NEEDED DIURETICS DR FOX Problem List - Problems (1) SOB (shortness of breath) Code(s): R06.02 - SHORTNESS OF BREATH (2) Acute on chronic respiratory failure with hypoxia and hypercapnia Code(s): J96.21 - ACUTE AND CHRONIC RESPIRATORY FAILURE WITH HYPOXIA J96.22 - ACUTE AND CHRONIC RESPIRATORY FAILURE WITH HYPERCAPNIA (3) Anemia Code(s): D64.9 - ANEMIA, UNSPECIFIED (4) CHF (congestive heart failure) Code(s): I50.9 - HEART FAILURE, UNSPECIFIED (5) COPD exacerbation Code(s): J44.1 - CHRONIC OBSTRUCTIVE PULMONARY DISEASE W (ACUTE) EXACERBATION (6) Chronic diastolic (congestive) heart failure Code(s): I50.32 - CHRONIC DIASTOLIC (CONGESTIVE) HEART FAILURE (7) Coronary artery disease Code(s): I25.10 - ATHSCL HEART DISEASE OF [place] CORONARY ARTERY W/O ANG PCTRS (8) History of pulmonary embolism Code(s): Z86.711 - PERSONAL HISTORY OF PULMONARY EMBOLISM (9) Morbid obesity Code(s): E66.01 - MORBID (SEVERE) OBESITY DUE TO EXCESS CALORIES (10) Pulmonary hypertension Code(s): I27.2 - OTHER SECONDARY PULMONARY HYPERTENSION * DO NOT USE *
--- NOTE | 2017-09-04 15:46 | PN ---
Progress Note, Physician History of Present Illness: still with cough and congestion - Current Medication List Current Medications: Active Medications Acetaminophen (Tylenol -) 650 mg PO TID PRN PRN Reason: PAIN Last Admin: 09/03/17 23:56 Dose: 650 mg Albuterol/Ipratropium (Duoneb -) 1 amp NEB Q6H PRN Last Admin: 09/04/17 14:44 Dose: 1 amp Aspirin (Asa -) 81 mg PO DAILY [facility] Last Admin: 09/04/17 11:03 Dose: 81 mg Budesonide/Formoterol Fumarate (Symbicort 160/4.5mcg -) 1 puff IH BID [facility] Last Admin: 09/04/17 11:05 Dose: 1 puff Cholecalciferol (Vitamin D3 -) 2,000 unit PO DAILY [facility] Last Admin: 09/04/17 11:03 Dose: 2,000 unit Ferrous Sulfate (Feosol -) 325 mg PO TIDCM [facility] Last Admin: 09/04/17 12:33 Dose: 325 mg Furosemide (Lasix -) 40 mg PO BID@0600,1400 [facility] Last Admin: 09/04/17 14:07 Dose: 40 mg Hydrocortisone (Anusol 2.5% Hc Cream -) 1 applic TP BID [facility] Last Admin: 09/04/17 11:05 Dose: 1 applic Iron Sucrose 100 mg/ Sodium (Chloride) 100 mls @ 200 mls/hr IVPB DAILY [facility] Stop: 09/08/17 10:29 Insulin Aspart (Novolog Vial Sliding Scale -) 1 vial SQ ACHS [facility] PRN Reason: Protocol Last Admin: 09/04/17 12:33 Dose: 2 units Lidocaine (Lidoderm Patch -) 1 patch TP DAILY [facility] Last Admin: 09/04/17 11:04 Dose: 1 patch Meclizine HCl (Antivert -) 12.5 mg PO BID [facility] Last Admin: 09/04/17 11:04 Dose: 12.5 mg Methylprednisolone Sodium Succinate (Solu-Medrol -) 40 mg IVPUSH Q12H [facility] Last Admin: 09/04/17 11:07 Dose: 40 mg Miscellaneous (Lidoderm Patch Removal) 1 each MC DAILY@2200 [facility] Nifedipine (Procardia Xl -) 30 mg PO DAILY [facility] Last Admin: 09/04/17 11:03 Dose: 30 mg Cyclosporine [ Restasis] 0.05% Eye Drops 1 each OU BID [facility] Last Admin: 09/04/17 11:04 Dose: 1 each Nystatin (Nystop Powder -) 1 applic TP BID [facility] Last Admin: 09/04/17 11:06 Dose: 1 applic Nystatin (Nystatin Oral Suspension -) 500,000 units PO TID [facility] Last Admin: 09/04/17 14:08 Dose: 500,000 units Pantoprazole Sodium (Protonix -) 40 mg PO DAILY [facility] Last Admin: 09/04/17 11:03 Dose: 40 mg Polyethylene Glycol (Miralax (For Daily Use) -) 17 gm PO DAILY [facility] Last Admin: 09/04/17 11:06 Dose: 17 grams Rosuvastatin Calcium (Crestor -) 10 mg PO HS [facility] Last Admin: 09/03/17 22:34 Dose: 10 mg Senna (Senna -) 1 tab PO BID [facility] Last Admin: 09/04/17 11:03 Dose: 1 tab Sodium Chloride ([place]al [place] -) 2 spray NS BID [facility] Last Admin: 09/04/17 11:07 Dose: 2 sprays Tiotropium [place] (Spiriva -) 1 puff IH DAILY [facility] Last Admin: 09/04/17 11:04 Dose: 1 puff Valsartan (Diovan -) 160 mg PO DAILY [facility] Last Admin: 09/04/17 11:03 Dose: 160 mg Warfarin Sodium (Coumadin -) 2.5 mg PO Q2D@1800 [facility] - Objective Vital Signs: Vital Signs Temperature 99.6 F 09/04/17 10:00 Pulse Rate 107 H 09/04/17 10:00 Respiratory Rate 22 09/04/17 10:00 Blood Pressure 137/76 09/04/17 10:00 O2 Sat by Pulse Oximetry (%) 100 09/04/17 11:30 Constitutional: Yes: Calm, Mild Distress, Obese Cardiovascular: Yes: S1, S2 Respiratory: Yes: On Nasal O2, Poor Air Entry Gastrointestinal: Yes: Normal Bowel Sounds, Soft Musculoskeletal: Yes: WNL Extremities: Yes: WNL Neurological: Yes: Alert, Oriented Psychiatric: Yes: Alert Labs: CBC, BMP 09/04/17 06:15 09/04/17 12:00 INR, PTT INR 1.86 (0.82-1.09) H 09/04/17 06:15 Assessment/Plan Problem List - Problems (1) SOB (shortness of breath) Code(s): R06.02 - SHORTNESS OF BREATH (2) Acute on chronic respiratory failure with hypoxia and hypercapnia Code(s): J96.21 - ACUTE AND CHRONIC RESPIRATORY FAILURE WITH HYPOXIA J96.22 - ACUTE AND CHRONIC RESPIRATORY FAILURE WITH HYPERCAPNIA (3) Anemia Code(s): D64.9 - ANEMIA, UNSPECIFIED (4) CHF (congestive heart failure) Code(s): I50.9 - HEART FAILURE, UNSPECIFIED (5) COPD exacerbation Code(s): J44.1 - CHRONIC OBSTRUCTIVE PULMONARY DISEASE W (ACUTE) EXACERBATION (6) Chronic diastolic (congestive) heart failure Code(s): I50.32 - CHRONIC DIASTOLIC (CONGESTIVE) HEART FAILURE (7) Coronary artery disease Code(s): I25.10 - ATHSCL HEART DISEASE OF [place] CORONARY ARTERY W/O ANG PCTRS (8) History of pulmonary embolism Code(s): Z86.711 - PERSONAL HISTORY OF PULMONARY EMBOLISM (9) Morbid obesity Code(s): E66.01 - MORBID (SEVERE) OBESITY DUE TO EXCESS CALORIES (10) Pulmonary hypertension Code(s): I27.2 - OTHER SECONDARY PULMONARY HYPERTENSION * DO NOT USE * plan continue to monitor off of abx wbc marginally down incentive schuyler rest as per primary
[2017-09-04] MEDS: IRON SUCROSE INJECTION 100 MG in SODIUM CHLORIDE 95 ML IVPB SCH (15:52)
[2017-09-04] MEDS ORDERED: WARFARIN NA 2.5 MG TABLET (FP) PO SCH (18:00)
[2017-09-04] MEDS: ALBUTEROL SO4 2.5/IPRATROPIUM 0.5 INH SOL 3 ML VIAL.NEB. NEB SCH (18:31)
[2017-09-04] MEDS: LIDOCAINE PATCH REMOVAL MC SCH (21:40)
[2017-09-04] MEDS: ROSUVASTATIN CA 10 MG TABLET (FP) PO SCH (21:49)
[2017-09-05] MEDS: ALBUTEROL SO4 2.5/IPRATROPIUM 0.5 INH SOL 3 ML VIAL.NEB. NEB SCH ×5 (06:45→19:48)
[2017-09-05] MEDS: NYSTATIN 500,000 UNITS/5 ML SUSPENSION PO SCH ×3 (06:46→22:17)
[2017-09-05] MEDS: FUROSEMIDE 40 MG TABLET (FP) PO SCH ×2 (06:46→14:33)
[2017-09-05] MEDS: INSULIN SLIDING SCALE (NOVOLOG) 1 VIAL SQ SCH ×4 (06:46→22:16)
[2017-09-05] MEDS ORDERED: INSULIN (NOVOLOG) ASPART 100 UNITS/ML 10ML VIAL ONE (06:52)
[2017-09-05 08:36] LABS: MCH 21.8 pg (25.7-33.7); MCHC 28.5 g/dl (32.0-36.0); MEAN CELL VOLUME 76.5 fl (80-96); MEAN PLT VOLUME 8.7 fl (7.5-11.1); PLATELET COUNT 207 K/MM3 (134-434); RDW 15.7 % (11.6-15.6)
[2017-09-05 08:38] LABS: WHITE BLOOD COUNT 25.4 K/mm3 (4.0-10.0)
[2017-09-05] MEDS: FERROUS SO4 325 MG TABLET (FP) PO SCH ×3 (08:45→18:46)
[2017-09-05 08:51] LABS: INR 1.92 (0.82-1.09); PROTHROMBIN TIME (PATIENT) 21.7 SEC (9.98-11.88)
[2017-09-05 09:11] LABS: FERRITIN 549.004 ng/ml (6.9-282.5); THYROID STIMULATING HORMONE 0.12 uIU/ml (0.358-3.74)
[2017-09-05] MEDS: CHOLECALCIFEROL (VITAMIN D3) 1,000 UNIT TABLET (FP) PO SCH (09:15)
[2017-09-05] MEDS: MECLIZINE HCL 12.5 MG TABLET PO SCH ×2 (09:15→22:15)
[2017-09-05] MEDS: VALSARTAN 160 MG TABLET (UD) PO SCH (09:15)
[2017-09-05] MEDS: NIFEdipine E.R. 30 MG TABLET (FP) PO SCH (09:15)
[2017-09-05] MEDS: ASPIRIN 81 MG CHEWABLE TABLETS PO SCH (09:15)
[2017-09-05] MEDS: SENNOSIDES 8.6MG TABLET (FP) PO SCH ×2 (09:15→22:17)
[2017-09-05] MEDS: NYSTATIN POWDER 100,000 UNITS/GM - 15 GM TOPICAL POWDER TP SCH ×2 (09:16→22:17)
[2017-09-05] MEDS: HYDROCORTISONE 2.5% TOPICAL CREAM 30 GM TUBE TP SCH ×2 (09:16→22:15)
[2017-09-05] MEDS: LIDOCAINE 5% TOPICAL PATCH TP SCH (09:16)
[2017-09-05] MEDS: SODIUM CHLORIDE NASAL SPRAY 44 ML BOTTLE NS SCH ×2 (09:17→22:17)
[2017-09-05] MEDS: BUDESONIDE/FORMETEROL FUMARATE 160/4.5 mcg INHALER IH SCH ×2 (09:18→22:15)
[2017-09-05] MEDS: PANTOPRAZOLE 40 MG TABLET (FP) PO SCH (09:22)
[2017-09-05] MEDS: POLYETHYLENE GLYCOL 3350 119 GM BTL PO SCH (09:22)
[2017-09-05] MEDS: TIOTROPIUM BROMIDE 18 MCG/INH (DEVICE W/ 5 CAPSULES) IH SCH (09:23)
[2017-09-05] MEDS: methylPREDNISolone NA SUCC 40 MG/1 ML VIAL IVPUSH SCH ×2 (11:42→22:15)
[2017-09-05] MEDS: IRON SUCROSE INJECTION 100 MG in SODIUM CHLORIDE 95 ML IVPB SCH (11:47)
[2017-09-05] MEDS ORDERED: FUROSEMIDE 40 MG/4 ML INJECTABLE VIAL IVPUSH PRN (12:16)
--- NOTE | 2017-09-05 13:10 | PN ---
Progress Note (short form) - Note Progress Note: PULMONARY Still with chest tightness and wheezing. Last Vital Signs Temp Pulse Resp BP Pulse Ox 98.1 F 92 H 22 124/64 97 09/05/17 06:00 09/05/17 11:27 09/05/17 09:30 09/05/17 09:30 09/05/17 11:27 Gen: less tachypneic with speaking Heart: RRR Lung: distant breath sounds, poor air entry, scattered wheezes Abd: soft, nontender Ext: no edema CBC, BMP 09/05/17 07:25 09/04/17 12:00 Active Medications Acetaminophen (Tylenol -) 650 mg PO TID PRN PRN Reason: PAIN Last Admin: 09/03/17 23:56 Dose: 650 mg Albuterol/Ipratropium (Duoneb -) 1 amp NEB QIDR [facility] Last Admin: 09/05/17 11:28 Dose: 1 amp Aspirin (Asa -) 81 mg PO DAILY [facility] Last Admin: 09/05/17 09:15 Dose: 81 mg Budesonide/Formoterol Fumarate (Symbicort 160/4.5mcg -) 1 puff IH BID [facility] Last Admin: 09/05/17 09:18 Dose: 1 puff Cholecalciferol (Vitamin D3 -) 2,000 unit PO DAILY [facility] Last Admin: 09/05/17 09:15 Dose: 2,000 unit Ferrous Sulfate (Feosol -) 325 mg PO TIDCM [facility] Last Admin: 09/05/17 08:45 Dose: 325 mg Furosemide (Lasix -) 40 mg PO BID@0600,1400 [facility] Last Admin: 09/05/17 06:46 Dose: 40 mg Furosemide (Lasix Injection -) 20 mg IVPUSH ONCE PRN PRN Reason: SHORTNESS OF BREATH Hydrocortisone (Anusol 2.5% Hc Cream -) 1 applic TP BID [facility] Last Admin: 09/05/17 09:16 Dose: 1 applic Iron Sucrose 100 mg/ Sodium (Chloride) 100 mls @ 200 mls/hr IVPB DAILY [facility] Stop: 09/08/17 10:29 Last Admin: 09/05/17 11:47 Dose: 200 mls/hr Insulin Aspart (Novolog Vial Sliding Scale -) 1 vial SQ ACHS [facility] PRN Reason: Protocol Last Admin: 09/05/17 11:50 Dose: 2 units Lidocaine (Lidoderm Patch -) 1 patch TP DAILY [facility] Last Admin: 09/05/17 09:16 Dose: 1 patch Meclizine HCl (Antivert -) 12.5 mg PO BID [facility] Last Admin: 09/05/17 09:15 Dose: 12.5 mg Methylprednisolone Sodium Succinate (Solu-Medrol -) 40 mg IVPUSH Q12H [facility] Last Admin: 09/05/17 11:42 Dose: 40 mg Miscellaneous (Lidoderm Patch Removal) 1 each MC DAILY@2200 [facility] Last Admin: 09/04/17 21:40 Dose: 1 each Nifedipine (Procardia Xl -) 30 mg PO DAILY [facility] Last Admin: 09/05/17 09:15 Dose: 30 mg Cyclosporine [ Restasis] 0.05% Eye Drops 1 each OU BID [facility] Last Admin: 09/05/17 09:16 Dose: 1 each Nystatin (Nystop Powder -) 1 applic TP BID [facility] Last Admin: 09/05/17 09:16 Dose: 1 applic Nystatin (Nystatin Oral Suspension -) 500,000 units PO TID [facility] Last Admin: 09/05/17 06:46 Dose: 500,000 units Pantoprazole Sodium (Protonix -) 40 mg PO DAILY [facility] Last Admin: 09/05/17 09:22 Dose: 40 mg Polyethylene Glycol (Miralax (For Daily Use) -) 17 gm PO DAILY [facility] Last Admin: 09/05/17 09:22 Dose: 17 grams Rosuvastatin Calcium (Crestor -) 10 mg PO HS [facility] Last Admin: 09/04/17 21:49 Dose: 10 mg Senna (Senna -) 1 tab PO BID [facility] Last Admin: 09/05/17 09:15 Dose: 1 tab Sodium Chloride ([place] Nasal [place] -) 2 spray NS BID [facility] Last Admin: 09/05/17 09:17 Dose: 2 sprays Tiotropium [place] (Spiriva -) 1 puff IH DAILY [facility] Last Admin: 09/05/17 09:23 Dose: 1 puff Valsartan (Diovan -) 160 mg PO DAILY [facility] Last Admin: 09/05/17 09:15 Dose: 160 mg Warfarin Sodium (Coumadin -) 2.5 mg PO Q2D@1800 [facility] Last Admin: 09/04/17 17:05 Dose: 2.5 mg A/P Acute on Chronic Hypoxic and Hypercapneic Respiratory Failure Acute COPD Exacerbation URI LV Diastolic Dysfunction Pulmonary HTN h/o PE Morbid Obesity HTN - continue medrol at current dose - inhaled bronchodilators standing and PRN - O2 to keep SpO2 >90% - DVT prophylaxis
--- NOTE | 2017-09-05 13:19 | PN ---
Progress Note (short form) - Note Progress Note: HEMATOLOGY CONSULT NOTE Progress Note: Patient seen and examined She feels slightly better than yesterday but not still upto it. Vital Signs Period Temp Pulse Resp BP Sys/Nielsen Pulse Ox Last 24 Hr 98.1 F-98.5 F 74-110 20-22 124-156/51-80 97-97 Current Medications Generic Name Dose Route Start Last Admin Trade Name Freq PRN Reason Stop Dose Admin Acetaminophen 650 mg 08/21/17 03:33 09/03/17 23:56 Tylenol - PO 650 mg TID PRN Administration PAIN Albuterol Sulfate 1 amp 09/05/17 13:08 Ventolin 0.083% Nebulizer Soln - NEB Q4H PRN SHORT OF BREATH/WHEEZING Albuterol/Ipratropium 1 amp 09/04/17 18:00 09/05/17 11:28 Duoneb - NEB 1 amp QIDR [facility] Administration Aspirin 81 mg 08/21/17 10:00 09/05/17 09:15 Asa - PO 81 mg DAILY [facility] Administration Budesonide/Formoterol Fumarate 1 puff 08/21/17 10:00 09/05/17 09:18 Symbicort 160/4.5mcg - IH 1 puff BID [facility] Administration Cholecalciferol 2,000 unit 08/21/17 10:00 09/05/17 09:15 Vitamin D3 - PO 2,000 unit DAILY [facility] Administration Ferrous Sulfate 325 mg 08/24/17 20:00 09/05/17 08:45 Feosol - PO 325 mg TIDCM [facility] Administration Furosemide 40 mg 09/01/17 14:00 09/05/17 06:46 Lasix - PO 40 mg BID@0600,1400 [facility] Administration Furosemide 20 mg 09/05/17 12:16 Lasix Injection - IVPUSH ONCE PRN SHORTNESS OF BREATH Hydrocortisone 1 applic 08/22/17 22:00 09/05/17 09:16 Anusol 2.5% Hc Cream - TP 1 applic BID [facility] Administration Iron Sucrose 100 mg/ Sodium 100 mls @ 200 mls/hr 09/04/17 14:00 09/05/17 11: 47 Chloride IVPB 09/08/17 10:29 200 mls/hr DAILY [facility] Administration Insulin Aspart 1 vial 08/21/17 07:00 09/05/17 11:50 Novolog Vial Sliding Scale - SQ 2 units ACHS [facility] Administration Protocol Lidocaine 1 patch 09/04/17 10:00 09/05/17 09:16 Lidoderm Patch - TP 1 patch DAILY [facility] Administration Meclizine HCl 12.5 mg 08/21/17 10:00 09/05/17 09:15 Antivert - PO 12.5 mg BID [facility] Administration Methylprednisolone Sodium Succinate 40 mg 09/03/17 10:45 09/05/17 11:42 Solu-Medrol - IVPUSH 40 mg Q12H [facility] Administration Miscellaneous 1 each 09/04/17 22:00 09/04/17 21:40 Lidoderm Patch Removal MC 1 each DAILY@2200 [facility] Administration Nifedipine 30 mg 08/21/17 10:00 09/05/17 09:15 Procardia Xl - PO 30 mg DAILY [facility] Administration Cyclosporine [ 1 each 08/29/17 22:00 09/05/17 09:16 Restasis] 0.05% Eye OU 1 each Drops BID [facility] Administration Nystatin 1 applic 08/21/17 22:00 09/05/17 09:16 Nystop Powder - TP 1 applic BID [facility] Administration Nystatin 500,000 units 08/26/17 22:00 09/05/17 06:46 Nystatin Oral Suspension - PO 500,000 units TID [facility] Administration Pantoprazole Sodium 40 mg 08/21/17 10:00 09/05/17 09:22 Protonix - PO 40 mg DAILY [facility] Administration Polyethylene Glycol 17 gm 09/03/17 04:00 09/05/17 09:22 Miralax (For Daily Use) - PO 17 grams DAILY [facility] Administration Rosuvastatin Calcium 10 mg 08/21/17 22:00 09/04/17 21:49 Crestor - PO 10 mg HS [facility] Administration Senna 1 tab 08/23/17 22:00 09/05/17 09:15 Senna - PO 1 tab BID [facility] Administration Sodium Chloride 2 spray 08/27/17 22:00 09/05/17 09:17 [place] Nasal [place] - NS 2 sprays BID [facility] Administration Valsartan 160 mg 08/21/17 10:00 09/05/17 09:15 Diovan - PO 160 mg DAILY [facility] Administration Warfarin Sodium 2.5 mg 09/04/17 18:00 09/04/17 17:05 Coumadin - PO 2.5 mg Q2D@1800 [facility] Administration AFVSS Morbid obseity Receiving iron On O2. HEENT: [place], EOM Intact Cor: RSR, No murmurs, No gallops Lungs: Clear to P&A.scattered rhonchi Abd: Soft, Normal bowel sounds, No organomegaly Ext:chronic edema CBC, BMP 09/05/17 07:25 09/04/17 12:00 Labs: reviewed A/P We had a long conversation regarding transfusion. She says the last time she ahd a blood transfusion she had fluid overload and was intubated. I offered her lasix prn, but she says she is peeing well currently. She was afraid about further decompensation, but apart form lasix I dont ahve better solutions and I said the risk cannot be completely avoided. I also dont think the Hb is going to increase well tomorrow. Hence she ahs now agreed to the transfusion. We will do it slowly over 4 hours. Her INR is ok and coumadin can be continued.The need for dual anticoagulation needs to be re-evlaauted in the presence of anemia
[2017-09-05] MEDS ORDERED: PT OWN MED DRAWER 7, Y5N ONE (13:40)
--- NOTE | 2017-09-05 15:42 | PN ---
Progress Note, Physician History of Present Illness: still with cough feeling better - Current Medication List Current Medications: Active Medications Acetaminophen (Tylenol -) 650 mg PO TID PRN PRN Reason: PAIN Last Admin: 09/03/17 23:56 Dose: 650 mg Albuterol Sulfate (Ventolin 0.083% Nebulizer Soln -) 1 amp NEB Q4H PRN PRN Reason: SHORT OF BREATH/WHEEZING Albuterol/Ipratropium (Duoneb -) 1 amp NEB QIDR [facility] Last Admin: 09/05/17 11:28 Dose: 1 amp Aspirin (Asa -) 81 mg PO DAILY [facility] Last Admin: 09/05/17 09:15 Dose: 81 mg Budesonide/Formoterol Fumarate (Symbicort 160/4.5mcg -) 1 puff IH BID [facility] Last Admin: 09/05/17 09:18 Dose: 1 puff Cholecalciferol (Vitamin D3 -) 2,000 unit PO DAILY [facility] Last Admin: 09/05/17 09:15 Dose: 2,000 unit Ferrous Sulfate (Feosol -) 325 mg PO TIDCM [facility] Last Admin: 09/05/17 14:33 Dose: 325 mg Furosemide (Lasix -) 40 mg PO BID@0600,1400 [facility] Last Admin: 09/05/17 14:33 Dose: 40 mg Furosemide (Lasix Injection -) 20 mg IVPUSH ONCE PRN PRN Reason: SHORTNESS OF BREATH Hydrocortisone (Anusol 2.5% Hc Cream -) 1 applic TP BID [facility] Last Admin: 09/05/17 09:16 Dose: 1 applic Iron Sucrose 100 mg/ Sodium (Chloride) 100 mls @ 200 mls/hr IVPB DAILY [facility] Stop: 09/08/17 10:29 Last Admin: 09/05/17 11:47 Dose: 200 mls/hr Insulin Aspart (Novolog Vial Sliding Scale -) 1 vial SQ ACHS [facility] PRN Reason: Protocol Last Admin: 09/05/17 11:50 Dose: 2 units Lidocaine (Lidoderm Patch -) 1 patch TP DAILY [facility] Last Admin: 09/05/17 09:16 Dose: 1 patch Meclizine HCl (Antivert -) 12.5 mg PO BID [facility] Last Admin: 09/05/17 09:15 Dose: 12.5 mg Methylprednisolone Sodium Succinate (Solu-Medrol -) 40 mg IVPUSH Q12H [facility] Last Admin: 09/05/17 11:42 Dose: 40 mg Miscellaneous (Lidoderm Patch Removal) 1 each MC DAILY@2200 [facility] Last Admin: 09/04/17 21:40 Dose: 1 each Nifedipine (Procardia Xl -) 30 mg PO DAILY [facility] Last Admin: 09/05/17 09:15 Dose: 30 mg Cyclosporine [ Restasis] 0.05% Eye Drops 1 each OU BID [facility] Last Admin: 09/05/17 09:16 Dose: 1 each Nystatin (Nystop Powder -) 1 applic TP BID [facility] Last Admin: 09/05/17 09:16 Dose: 1 applic Nystatin (Nystatin Oral Suspension -) 500,000 units PO TID [facility] Last Admin: 09/05/17 14:33 Dose: 500,000 units Pantoprazole Sodium (Protonix -) 40 mg PO DAILY [facility] Last Admin: 09/05/17 09:22 Dose: 40 mg Polyethylene Glycol (Miralax (For Daily Use) -) 17 gm PO DAILY [facility] Last Admin: 09/05/17 09:22 Dose: 17 grams Rosuvastatin Calcium (Crestor -) 10 mg PO HS [facility] Last Admin: 09/04/17 21:49 Dose: 10 mg Senna (Senna -) 1 tab PO BID [facility] Last Admin: 09/05/17 09:15 Dose: 1 tab Sodium Chloride ([place] Nasal [place] -) 2 spray NS BID [facility] Last Admin: 09/05/17 09:17 Dose: 2 sprays Valsartan (Diovan -) 160 mg PO DAILY [facility] Last Admin: 09/05/17 09:15 Dose: 160 mg Warfarin Sodium (Coumadin -) 2.5 mg PO Q2D@1800 [facility] Last Admin: 09/04/17 17:05 Dose: 2.5 mg - Objective Vital Signs: Vital Signs Temperature 98.1 F 09/05/17 06:00 Pulse Rate 92 H 09/05/17 11:27 Respiratory Rate 22 09/05/17 09:30 Blood Pressure 124/64 09/05/17 09:30 O2 Sat by Pulse Oximetry (%) 97 09/05/17 11:27 Constitutional: Yes: No Distress, Calm Respiratory: Yes: Regular, On Nasal O2, Poor Air Entry Gastrointestinal: Yes: Normal Bowel Sounds, Soft Musculoskeletal: Yes: WNL Extremities: Yes: WNL Neurological: Yes: Alert, Oriented Psychiatric: Yes: Alert, Oriented Labs: CBC, BMP 09/05/17 07:25 09/04/17 12:00 INR, PTT INR 1.92 (0.82-1.09) H 09/05/17 07:25 Assessment/Plan Problem List - Problems (1) SOB (shortness of breath) Code(s): R06.02 - SHORTNESS OF BREATH (2) Acute on chronic respiratory failure with hypoxia and hypercapnia Code(s): J96.21 - ACUTE AND CHRONIC RESPIRATORY FAILURE WITH HYPOXIA J96.22 - ACUTE AND CHRONIC RESPIRATORY FAILURE WITH HYPERCAPNIA (3) Anemia Code(s): D64.9 - ANEMIA, UNSPECIFIED (4) CHF (congestive heart failure) Code(s): I50.9 - HEART FAILURE, UNSPECIFIED (5) COPD exacerbation Code(s): J44.1 - CHRONIC OBSTRUCTIVE PULMONARY DISEASE W (ACUTE) EXACERBATION (6) Chronic diastolic (congestive) heart failure Code(s): I50.32 - CHRONIC DIASTOLIC (CONGESTIVE) HEART FAILURE (7) Coronary artery disease Code(s): I25.10 - ATHSCL HEART DISEASE OF [place] CORONARY ARTERY W/O ANG PCTRS (8) History of pulmonary embolism Code(s): Z86.711 - PERSONAL HISTORY OF PULMONARY EMBOLISM (9) Morbid obesity Code(s): E66.01 - MORBID (SEVERE) OBESITY DUE TO EXCESS CALORIES (10) Pulmonary hypertension Code(s): I27.2 - OTHER SECONDARY PULMONARY HYPERTENSION * DO NOT USE * plan continue to monitor off of abx wbc trending down incentive schuyler rest as per primary
--- NOTE | 2017-09-05 21:33 | PN ---
Progress Note, Physician History of Present Illness: Pt w/ no new complaints - Current Medication List Current Medications: Active Medications Acetaminophen (Tylenol -) 650 mg PO TID PRN PRN Reason: PAIN Last Admin: 09/03/17 23:56 Dose: 650 mg Albuterol Sulfate (Ventolin 0.083% Nebulizer Soln -) 1 amp NEB Q4H PRN PRN Reason: SHORT OF BREATH/WHEEZING Albuterol/Ipratropium (Duoneb -) 1 amp NEB QIDR [facility] Last Admin: 09/05/17 19:48 Dose: 1 amp Aspirin (Asa -) 81 mg PO DAILY [facility] Last Admin: 09/05/17 09:15 Dose: 81 mg Budesonide/Formoterol Fumarate (Symbicort 160/4.5mcg -) 1 puff IH BID [facility] Last Admin: 09/05/17 09:18 Dose: 1 puff Cholecalciferol (Vitamin D3 -) 2,000 unit PO DAILY [facility] Last Admin: 09/05/17 09:15 Dose: 2,000 unit Ferrous Sulfate (Feosol -) 325 mg PO TIDCM [facility] Last Admin: 09/05/17 18:46 Dose: 325 mg Furosemide (Lasix -) 40 mg PO BID@0600,1400 [facility] Last Admin: 09/05/17 14:33 Dose: 40 mg Furosemide (Lasix Injection -) 20 mg IVPUSH ONCE PRN PRN Reason: SHORTNESS OF BREATH Hydrocortisone (Anusol 2.5% Hc Cream -) 1 applic TP BID [facility] Last Admin: 09/05/17 09:16 Dose: 1 applic Iron Sucrose 100 mg/ Sodium (Chloride) 100 mls @ 200 mls/hr IVPB DAILY [facility] Stop: 09/08/17 10:29 Last Admin: 09/05/17 11:47 Dose: 200 mls/hr Insulin Aspart (Novolog Vial Sliding Scale -) 1 vial SQ ACHS [facility] PRN Reason: Protocol Last Admin: 09/05/17 17:53 Dose: 6 units Lidocaine (Lidoderm Patch -) 1 patch TP DAILY [facility] Last Admin: 09/05/17 09:16 Dose: 1 patch Meclizine HCl (Antivert -) 12.5 mg PO BID [facility] Last Admin: 09/05/17 09:15 Dose: 12.5 mg Methylprednisolone Sodium Succinate (Solu-Medrol -) 40 mg IVPUSH Q12H [facility] Last Admin: 09/05/17 11:42 Dose: 40 mg Miscellaneous (Lidoderm Patch Removal) 1 each MC DAILY@2200 [facility] Last Admin: 09/04/17 21:40 Dose: 1 each Nifedipine (Procardia Xl -) 30 mg PO DAILY [facility] Last Admin: 09/05/17 09:15 Dose: 30 mg Cyclosporine [ Restasis] 0.05% Eye Drops 1 each OU BID [facility] Last Admin: 09/05/17 09:16 Dose: 1 each Nystatin (Nystop Powder -) 1 applic TP BID [facility] Last Admin: 09/05/17 09:16 Dose: 1 applic Nystatin (Nystatin Oral Suspension -) 500,000 units PO TID [facility] Last Admin: 09/05/17 14:33 Dose: 500,000 units Pantoprazole Sodium (Protonix -) 40 mg PO DAILY [facility] Last Admin: 09/05/17 09:22 Dose: 40 mg Polyethylene Glycol (Miralax (For Daily Use) -) 17 gm PO DAILY [facility] Last Admin: 09/05/17 09:22 Dose: 17 grams Rosuvastatin Calcium (Crestor -) 10 mg PO HS [facility] Last Admin: 09/04/17 21:49 Dose: 10 mg Senna (Senna -) 1 tab PO BID [facility] Last Admin: 09/05/17 09:15 Dose: 1 tab Sodium Chloride ([place] Nasal [place] -) 2 spray NS BID [facility] Last Admin: 09/05/17 09:17 Dose: 2 sprays Valsartan (Diovan -) 160 mg PO DAILY [facility] Last Admin: 09/05/17 09:15 Dose: 160 mg Warfarin Sodium (Coumadin -) 2.5 mg PO Q2D@1800 [facility] Last Admin: 09/04/17 17:05 Dose: 2.5 mg - Objective Vital Signs: Vital Signs Temperature 98.4 F 09/05/17 17:46 Pulse Rate 83 09/05/17 17:46 Respiratory Rate 20 09/05/17 17:46 Blood Pressure 129/53 09/05/17 17:46 O2 Sat by Pulse Oximetry (%) 97 09/05/17 11:27 Constitutional: Yes: Well Nourished Neck: Yes: WNL, Supple Cardiovascular: Yes: WNL, Regular Rate and Rhythm Respiratory: Yes: Diminished, Wheezes Gastrointestinal: Yes: WNL, Normal Bowel Sounds, Soft, Abdomen, Obese Labs: CBC, BMP 09/05/17 07:25 09/04/17 12:00 INR, PTT INR 1.92 (0.82-1.09) H 09/05/17 07:25 Problem List - Problems (1) COPD exacerbation Assessment/Plan: Cont IV solumedrol Cont nebulizers/spiriva/symbicort Code(s): J44.1 - CHRONIC OBSTRUCTIVE PULMONARY DISEASE W (ACUTE) EXACERBATION (2) Anemia Assessment/Plan: Cont Feso4 Cont IV venofor Monitor H/H Code(s): D64.9 - ANEMIA, UNSPECIFIED (3) Hypertension Assessment/Plan: BP stable Cont procardia/diovan Code(s): I10 - ESSENTIAL (PRIMARY) HYPERTENSION (4) Coronary artery disease Code(s): I25.10 - ATHSCL HEART DISEASE OF [place] CORONARY ARTERY W/O ANG PCTRS (5) History of pulmonary embolism Assessment/Plan: Monitor PT/inr Cont coumadin Code(s): Z86.711 - PERSONAL HISTORY OF PULMONARY EMBOLISM (6) Chronic diastolic (congestive) heart failure Assessment/Plan: Cont lasix Monitor electrolytes Code(s): I50.32 - CHRONIC DIASTOLIC (CONGESTIVE) HEART FAILURE (7) HLD (hyperlipidemia) Code(s): E78.5 - HYPERLIPIDEMIA, UNSPECIFIED (8) Hemorrhoid Code(s): K64.9 - UNSPECIFIED HEMORRHOIDS (9) DVT (deep venous thrombosis) Code(s): I82.409 - ACUTE EMBOLISM AND THOMBOS UNSP DEEP VN UNSP LOWER EXTREMITY (10) Conjunctival hemorrhage of right eye Assessment/Plan: Resolved Code(s): H11.31 - CONJUNCTIVAL HEMORRHAGE, RIGHT EYE (11) Morbid obesity Code(s): E66.01 - MORBID (SEVERE) OBESITY DUE TO EXCESS CALORIES
[2017-09-05] MEDS: ROSUVASTATIN CA 10 MG TABLET (FP) PO SCH (22:15)
[2017-09-05] MEDS: LIDOCAINE PATCH REMOVAL MC SCH (22:16)
[2017-09-06] MEDS: ALBUTEROL SO4 2.5/IPRATROPIUM 0.5 INH SOL 3 ML VIAL.NEB. NEB SCH ×6 (06:40→23:00)
[2017-09-06] MEDS: NYSTATIN 500,000 UNITS/5 ML SUSPENSION PO SCH ×3 (06:42→21:10)
[2017-09-06] MEDS: INSULIN SLIDING SCALE (NOVOLOG) 1 VIAL SQ SCH ×4 (06:42→21:12)
[2017-09-06] MEDS: FUROSEMIDE 40 MG TABLET (FP) PO SCH ×2 (06:42→13:39)
[2017-09-06] MEDS ORDERED: INSULIN (NOVOLOG) ASPART 100 UNITS/ML 10ML VIAL ONE (06:51)
[2017-09-06] MEDS ORDERED: PT OWN MED DRAWER 7, Y5N ONE (08:54)
[2017-09-06] MEDS: FERROUS SO4 325 MG TABLET (FP) PO SCH ×3 (09:00→17:31)
[2017-09-06] MEDS: VALSARTAN 160 MG TABLET (UD) PO SCH (09:02)
[2017-09-06] MEDS: LIDOCAINE 5% TOPICAL PATCH TP SCH (09:02)
[2017-09-06] MEDS: ASPIRIN 81 MG CHEWABLE TABLETS PO SCH (09:03)
[2017-09-06] MEDS: CHOLECALCIFEROL (VITAMIN D3) 1,000 UNIT TABLET (FP) PO SCH (09:03)
[2017-09-06] MEDS: NIFEdipine E.R. 30 MG TABLET (FP) PO SCH (09:03)
[2017-09-06] MEDS: SENNOSIDES 8.6MG TABLET (FP) PO SCH ×2 (09:03→21:11)
[2017-09-06] MEDS: MECLIZINE HCL 12.5 MG TABLET PO SCH ×2 (09:03→21:10)
[2017-09-06] MEDS: PANTOPRAZOLE 40 MG TABLET (FP) PO SCH (09:03)
[2017-09-06] MEDS: BUDESONIDE/FORMETEROL FUMARATE 160/4.5 mcg INHALER IH SCH ×2 (09:04→21:11)
[2017-09-06] MEDS: SODIUM CHLORIDE NASAL SPRAY 44 ML BOTTLE NS SCH ×2 (09:11→21:11)
[2017-09-06] MEDS: HYDROCORTISONE 2.5% TOPICAL CREAM 30 GM TUBE TP SCH (09:11)
[2017-09-06] MEDS: NYSTATIN POWDER 100,000 UNITS/GM - 15 GM TOPICAL POWDER TP SCH ×2 (09:11→21:10)
[2017-09-06] MEDS: POLYETHYLENE GLYCOL 3350 119 GM BTL PO SCH (10:26)
[2017-09-06] MEDS: methylPREDNISolone NA SUCC 40 MG/1 ML VIAL IVPUSH SCH ×2 (10:26→21:47)
[2017-09-06] MEDS: IRON SUCROSE INJECTION 100 MG in SODIUM CHLORIDE 95 ML IVPB SCH (10:28)
[2017-09-06 12:58] LABS: MCH 22.4 pg (25.7-33.7); MEAN CELL VOLUME 77.4 fl (80-96); MEAN PLT VOLUME 9.4 fl (7.5-11.1); PLATELET COUNT 193 K/MM3 (134-434); RDW 16.2 % (11.6-15.6); WHITE BLOOD COUNT 25.9 K/mm3 (4.0-10.0)
--- NOTE | 2017-09-06 13:49 | PN ---
Progress Note, Physician History of Present Illness: still with cough feeling better received transfusion yesterday - Current Medication List Current Medications: Active Medications Acetaminophen (Tylenol -) 650 mg PO TID PRN PRN Reason: PAIN Last Admin: 09/03/17 23:56 Dose: 650 mg Albuterol Sulfate (Ventolin 0.083% Nebulizer Soln -) 1 amp NEB Q4H PRN PRN Reason: SHORT OF BREATH/WHEEZING Albuterol/Ipratropium (Duoneb -) 1 amp NEB QIDR [facility] Last Admin: 09/06/17 11:20 Dose: 1 amp Aspirin (Asa -) 81 mg PO DAILY [facility] Last Admin: 09/06/17 09:03 Dose: 81 mg Budesonide/Formoterol Fumarate (Symbicort 160/4.5mcg -) 1 puff IH BID [facility] Last Admin: 09/06/17 09:04 Dose: 1 puff Cholecalciferol (Vitamin D3 -) 2,000 unit PO DAILY [facility] Last Admin: 09/06/17 09:03 Dose: 2,000 unit Ferrous Sulfate (Feosol -) 325 mg PO TIDCM [facility] Last Admin: 09/06/17 09:00 Dose: 325 mg Furosemide (Lasix -) 40 mg PO BID@0600,1400 [facility] Last Admin: 09/06/17 06:42 Dose: 40 mg Furosemide (Lasix Injection -) 20 mg IVPUSH ONCE PRN PRN Reason: SHORTNESS OF BREATH Last Admin: 09/05/17 22:23 Dose: 20 mg Hydrocortisone (Anusol 2.5% Hc Cream -) 1 applic TP BID [facility] Last Admin: 09/06/17 09:11 Dose: 1 applic Iron Sucrose 100 mg/ Sodium (Chloride) 100 mls @ 200 mls/hr IVPB DAILY [facility] Stop: 09/08/17 10:29 Last Admin: 09/06/17 10:28 Dose: 200 mls/hr Insulin Aspart (Novolog Vial Sliding Scale -) 1 vial SQ ACHS [facility] PRN Reason: Protocol Last Admin: 09/06/17 12:06 Dose: 4 units Lidocaine (Lidoderm Patch -) 1 patch TP DAILY [facility] Last Admin: 09/06/17 09:02 Dose: 1 patch Meclizine HCl (Antivert -) 12.5 mg PO BID [facility] Last Admin: 09/06/17 09:03 Dose: 12.5 mg Methylprednisolone Sodium Succinate (Solu-Medrol -) 40 mg IVPUSH Q12H [facility] Last Admin: 09/06/17 10:26 Dose: 40 mg Miscellaneous (Lidoderm Patch Removal) 1 each MC DAILY@2200 [facility] Last Admin: 09/05/17 22:16 Dose: 1 each Nifedipine (Procardia Xl -) 30 mg PO DAILY [facility] Last Admin: 09/06/17 09:03 Dose: 30 mg Cyclosporine [ Restasis] 0.05% Eye Drops 1 each OU BID [facility] Last Admin: 09/06/17 09:11 Dose: 1 each Nystatin (Nystop Powder -) 1 applic TP BID [facility] Last Admin: 09/06/17 09:11 Dose: 1 applic Nystatin (Nystatin Oral Suspension -) 500,000 units PO TID [facility] Last Admin: 09/06/17 06:42 Dose: 500,000 units Pantoprazole Sodium (Protonix -) 40 mg PO DAILY [facility] Last Admin: 09/06/17 09:03 Dose: 40 mg Polyethylene Glycol (Miralax (For Daily Use) -) 17 gm PO DAILY [facility] Last Admin: 09/06/17 10:26 Dose: 17 grams Rosuvastatin Calcium (Crestor -) 10 mg PO HS [facility] Last Admin: 09/05/17 22:15 Dose: 10 mg Senna (Senna -) 1 tab PO BID [facility] Last Admin: 09/06/17 09:03 Dose: 1 tab Sodium Chloride ([place] Nasal [place] -) 2 spray NS BID [facility] Last Admin: 09/06/17 09:11 Dose: 1 sprays Valsartan (Diovan -) 160 mg PO DAILY [facility] Last Admin: 09/06/17 09:02 Dose: 160 mg Warfarin Sodium (Coumadin -) 3 mg PO DAILY@1800 [facility] - Objective Vital Signs: Vital Signs Temperature 98.4 F 09/06/17 06:00 Pulse Rate 93 H 09/06/17 06:00 Respiratory Rate 20 09/06/17 06:00 Blood Pressure 137/70 09/06/17 06:00 O2 Sat by Pulse Oximetry (%) 97 09/05/17 21:00 Constitutional: Yes: No Distress, Calm Cardiovascular: Yes: Regular Rate and Rhythm Respiratory: Yes: Regular, CTA Bilaterally Gastrointestinal: Yes: Normal Bowel Sounds, Soft Musculoskeletal: Yes: Other Extremities: Yes: Other Neurological: Yes: Alert Psychiatric: Yes: Alert Labs: CBC, BMP 09/06/17 12:53 09/04/17 12:00 INR, PTT INR 1.92 (0.82-1.09) H 09/05/17 07:25 Assessment/Plan Problem List - Problems (1) SOB (shortness of breath) Code(s): R06.02 - SHORTNESS OF BREATH (2) Acute on chronic respiratory failure with hypoxia and hypercapnia Code(s): J96.21 - ACUTE AND CHRONIC RESPIRATORY FAILURE WITH HYPOXIA J96.22 - ACUTE AND CHRONIC RESPIRATORY FAILURE WITH HYPERCAPNIA (3) Anemia Code(s): D64.9 - ANEMIA, UNSPECIFIED (4) CHF (congestive heart failure) Code(s): I50.9 - HEART FAILURE, UNSPECIFIED (5) COPD exacerbation Code(s): J44.1 - CHRONIC OBSTRUCTIVE PULMONARY DISEASE W (ACUTE) EXACERBATION (6) Chronic diastolic (congestive) heart failure Code(s): I50.32 - CHRONIC DIASTOLIC (CONGESTIVE) HEART FAILURE (7) Coronary artery disease Code(s): I25.10 - ATHSCL HEART DISEASE OF [place] CORONARY ARTERY W/O ANG PCTRS (8) History of pulmonary embolism Code(s): Z86.711 - PERSONAL HISTORY OF PULMONARY EMBOLISM (9) Morbid obesity Code(s): E66.01 - MORBID (SEVERE) OBESITY DUE TO EXCESS CALORIES (10) Pulmonary hypertension Code(s): I27.2 - OTHER SECONDARY PULMONARY HYPERTENSION * DO NOT USE * plan continue to monitor off of abx wbc trending down incentive schuyler rest as per primary
--- NOTE | 2017-09-06 13:50 | PN ---
Progress Note (short form) - Note Progress Note: HEMATOLOGY CONSULT NOTE Progress Note: Patient seen and examined She feels better than yesterday She is pleased seh ot ehr transfusion without any issues. Vital Signs Period Temp Pulse Resp BP Sys/Nielsen Pulse Ox Last 24 Hr 98.4 F-99.4 F 83-112 20-22 114-150/53-74 97 AFVSS Morbid obseity Receiving iron On O2. HEENT: [place], EOM Intact Cor: RSR, No murmurs, No gallops Lungs: Clear to P&A.scattered rhonchi Abd: Soft, Normal bowel sounds, No organomegaly Ext:chronic edema CBC, BMP 09/06/17 12:53 09/04/17 12:00 Active Medications Generic Name Dose Route Start Last Admin Trade Name Freq PRN Reason Stop Dose Admin Acetaminophen 650 mg 08/21/17 03:33 09/03/17 23:56 Tylenol - PO 650 mg TID PRN Administration PAIN Albuterol Sulfate 1 amp 09/05/17 13:08 Ventolin 0.083% Nebulizer Soln - NEB Q4H PRN SHORT OF BREATH/WHEEZING Albuterol/Ipratropium 1 amp 09/04/17 18:00 09/06/17 11:20 Duoneb - NEB 1 amp QIDR [facility] Administration Aspirin 81 mg 08/21/17 10:00 09/06/17 09:03 Asa - PO 81 mg DAILY [facility] Administration Budesonide/Formoterol Fumarate 1 puff 08/21/17 10:00 09/06/17 09:04 Symbicort 160/4.5mcg - IH 1 puff BID [facility] Administration Cholecalciferol 2,000 unit 08/21/17 10:00 09/06/17 09:03 Vitamin D3 - PO 2,000 unit DAILY [facility] Administration Ferrous Sulfate 325 mg 08/24/17 20:00 09/06/17 09:00 Feosol - PO 325 mg TIDCM [facility] Administration Furosemide 40 mg 09/01/17 14:00 09/06/17 06:42 Lasix - PO 40 mg BID@0600,1400 [facility] Administration Furosemide 20 mg 09/05/17 12:16 09/05/17 22:23 Lasix Injection - IVPUSH 20 mg ONCE PRN Administration SHORTNESS OF BREATH Hydrocortisone 1 applic 08/22/17 22:00 09/06/17 09:11 Anusol 2.5% Hc Cream - TP 1 applic BID [facility] Administration Iron Sucrose 100 mg/ Sodium 100 mls @ 200 mls/hr 09/04/17 14:00 09/06/17 10: 28 Chloride IVPB 09/08/17 10:29 200 mls/hr DAILY [facility] Administration Insulin Aspart 1 vial 08/21/17 07:00 09/06/17 12:06 Novolog Vial Sliding Scale - SQ 4 units ACHS [facility] Administration Protocol Lidocaine 1 patch 09/04/17 10:00 09/06/17 09:02 Lidoderm Patch - TP 1 patch DAILY [facility] Administration Meclizine HCl 12.5 mg 08/21/17 10:00 09/06/17 09:03 Antivert - PO 12.5 mg BID [facility] Administration Methylprednisolone Sodium Succinate 40 mg 09/03/17 10:45 09/06/17 10:26 Solu-Medrol - IVPUSH 40 mg Q12H [facility] Administration Miscellaneous 1 each 09/04/17 22:00 09/05/17 22:16 Lidoderm Patch Removal MC 1 each DAILY@2200 [facility] Administration Nifedipine 30 mg 08/21/17 10:00 09/06/17 09:03 Procardia Xl - PO 30 mg DAILY [facility] Administration Cyclosporine [ 1 each 08/29/17 22:00 09/06/17 09:11 Restasis] 0.05% Eye OU 1 each Drops BID [facility] Administration Nystatin 1 applic 08/21/17 22:00 09/06/17 09:11 Nystop Powder - TP 1 applic BID [facility] Administration Nystatin 500,000 units 08/26/17 22:00 09/06/17 06:42 Nystatin Oral Suspension - PO 500,000 units TID [facility] Administration Pantoprazole Sodium 40 mg 08/21/17 10:00 09/06/17 09:03 Protonix - PO 40 mg DAILY [facility] Administration Polyethylene Glycol 17 gm 09/03/17 04:00 09/06/17 10:26 Miralax (For Daily Use) - PO 17 grams DAILY [facility] Administration Rosuvastatin Calcium 10 mg 08/21/17 22:00 09/05/17 22:15 Crestor - PO 10 mg HS [facility] Administration Senna 1 tab 08/23/17 22:00 09/06/17 09:03 Senna - PO 1 tab BID [facility] Administration Sodium Chloride 2 spray 08/27/17 22:00 09/06/17 09:11 [place] Nasal [place] - NS 1 sprays BID [facility] Administration Valsartan 160 mg 08/21/17 10:00 09/06/17 09:02 Diovan - PO 160 mg DAILY [facility] Administration Warfarin Sodium 3 mg 09/06/17 18:00 Coumadin - PO DAILY@1800 [facility] Labs: reviewed A/P Appropriate increase in Hb after transfusion Difficult to know the source of bleeding will continue to follow W[facility] very slowly trending down
[2017-09-06 14:16] LABS: INR 1.64 (0.82-1.09); PROTHROMBIN TIME (PATIENT) 18.5 SEC (9.98-11.88)
--- NOTE | 2017-09-06 14:17 | PN ---
Progress Note (short form) - Note Progress Note: PULMONARY Still with chest tightness and wheezing but states breathing slightly improved. Last Vital Signs Temp Pulse Resp BP Pulse Ox 98.4 F 93 H 20 137/70 97 09/06/17 06:00 09/06/17 06:00 09/06/17 06:00 09/06/17 06:00 09/05/17 21:00 Gen: less tachypneic with speaking Heart: RRR Lung: distant breath sounds, poor air entry, scattered wheezes Abd: soft, nontender Ext: no edema CBC, BMP 09/06/17 12:53 09/04/17 12:00 Active Medications Acetaminophen (Tylenol -) 650 mg PO TID PRN PRN Reason: PAIN Last Admin: 09/03/17 23:56 Dose: 650 mg Albuterol Sulfate (Ventolin 0.083% Nebulizer Soln -) 1 amp NEB Q4H PRN PRN Reason: SHORT OF BREATH/WHEEZING Albuterol/Ipratropium (Duoneb -) 1 amp NEB QIDR [facility] Last Admin: 09/06/17 11:20 Dose: 1 amp Aspirin (Asa -) 81 mg PO DAILY [facility] Last Admin: 09/06/17 09:03 Dose: 81 mg Budesonide/Formoterol Fumarate (Symbicort 160/4.5mcg -) 1 puff IH BID [facility] Last Admin: 09/06/17 09:04 Dose: 1 puff Cholecalciferol (Vitamin D3 -) 2,000 unit PO DAILY [facility] Last Admin: 09/06/17 09:03 Dose: 2,000 unit Ferrous Sulfate (Feosol -) 325 mg PO TIDCM [facility] Last Admin: 09/06/17 13:39 Dose: 325 mg Furosemide (Lasix -) 40 mg PO BID@0600,1400 [facility] Last Admin: 09/06/17 13:39 Dose: 40 mg Furosemide (Lasix Injection -) 20 mg IVPUSH ONCE PRN PRN Reason: SHORTNESS OF BREATH Last Admin: 09/05/17 22:23 Dose: 20 mg Hydrocortisone (Anusol 2.5% Hc Cream -) 1 applic TP BID [facility] Last Admin: 09/06/17 09:11 Dose: 1 applic Iron Sucrose 100 mg/ Sodium (Chloride) 100 mls @ 200 mls/hr IVPB DAILY [facility] Stop: 09/08/17 10:29 Last Admin: 09/06/17 10:28 Dose: 200 mls/hr Insulin Aspart (Novolog Vial Sliding Scale -) 1 vial SQ ACHS [facility] PRN Reason: Protocol Last Admin: 09/06/17 12:06 Dose: 4 units Lidocaine (Lidoderm Patch -) 1 patch TP DAILY [facility] Last Admin: 09/06/17 09:02 Dose: 1 patch Meclizine HCl (Antivert -) 12.5 mg PO BID [facility] Last Admin: 09/06/17 09:03 Dose: 12.5 mg Methylprednisolone Sodium Succinate (Solu-Medrol -) 40 mg IVPUSH Q12H [facility] Last Admin: 09/06/17 10:26 Dose: 40 mg Miscellaneous (Lidoderm Patch Removal) 1 each MC DAILY@2200 [facility] Last Admin: 09/05/17 22:16 Dose: 1 each Nifedipine (Procardia Xl -) 30 mg PO DAILY [facility] Last Admin: 09/06/17 09:03 Dose: 30 mg Cyclosporine [ Restasis] 0.05% Eye Drops 1 each OU BID [facility] Last Admin: 09/06/17 09:11 Dose: 1 each Nystatin (Nystop Powder -) 1 applic TP BID [facility] Last Admin: 09/06/17 09:11 Dose: 1 applic Nystatin (Nystatin Oral Suspension -) 500,000 units PO TID [facility] Last Admin: 09/06/17 13:39 Dose: 500,000 units Pantoprazole Sodium (Protonix -) 40 mg PO DAILY [facility] Last Admin: 09/06/17 09:03 Dose: 40 mg Polyethylene Glycol (Miralax (For Daily Use) -) 17 gm PO DAILY [facility] Last Admin: 09/06/17 10:26 Dose: 17 grams Rosuvastatin Calcium (Crestor -) 10 mg PO HS [facility] Last Admin: 09/05/17 22:15 Dose: 10 mg Senna (Senna -) 1 tab PO BID [facility] Last Admin: 09/06/17 09:03 Dose: 1 tab Sodium Chloride ([place] Nasal [place] -) 2 spray NS BID [facility] Last Admin: 09/06/17 09:11 Dose: 1 sprays Valsartan (Diovan -) 160 mg PO DAILY [facility] Last Admin: 09/06/17 09:02 Dose: 160 mg Warfarin Sodium (Coumadin -) 3 mg PO DAILY@1800 [facility] A/P Acute on Chronic Hypoxic and Hypercapneic Respiratory Failure Acute COPD Exacerbation URI LV Diastolic Dysfunction Pulmonary HTN h/o PE Morbid Obesity HTN - continue medrol at current dose, will consider decreasing to daily dosing in AM if continues to improve - inhaled bronchodilators standing and PRN - O2 to keep SpO2 >90% - continue anticoagulation - DVT prophylaxis
[2017-09-06] MEDS ORDERED: ACETAMINOPHEN 500 MG TABLET (FP) PO PRN (14:52)
[2017-09-06] MEDS: WARFARIN NA 3 MG TABLET PO SCH (17:31)
[2017-09-06] MEDS: ROSUVASTATIN CA 10 MG TABLET (FP) PO SCH (21:10)
[2017-09-06] MEDS: LIDOCAINE PATCH REMOVAL MC SCH (21:10)
[2017-09-06] MEDS: PHENYLEPH/MINERAL OIL/PETROLAT 28 GM OINTMENT RC SCH (21:11)
--- NOTE | 2017-09-06 22:28 | PN ---
Progress Note, Physician History of Present Illness: Pt w/ multiple complaints Pt appears slightly SOB Pt c/o hemorrhoids - Current Medication List Current Medications: Active Medications Acetaminophen (Tylenol -) 650 mg PO TID PRN PRN Reason: PAIN Last Admin: 09/03/17 23:56 Dose: 650 mg Acetaminophen (Tylenol -) 1,000 mg PO Q8H PRN PRN Reason: PAIN Albuterol Sulfate (Ventolin 0.083% Nebulizer Soln -) 1 amp NEB Q4H PRN PRN Reason: SHORT OF BREATH/WHEEZING Albuterol/Ipratropium (Duoneb -) 1 amp NEB QIDR [facility] Last Admin: 09/06/17 18:05 Dose: 1 amp Aspirin (Asa -) 81 mg PO DAILY [facility] Last Admin: 09/06/17 09:03 Dose: 81 mg Budesonide/Formoterol Fumarate (Symbicort 160/4.5mcg -) 1 puff IH BID [facility] Last Admin: 09/06/17 21:11 Dose: 1 puff Cholecalciferol (Vitamin D3 -) 2,000 unit PO DAILY [facility] Last Admin: 09/06/17 09:03 Dose: 2,000 unit Ferrous Sulfate (Feosol -) 325 mg PO TIDCM [facility] Last Admin: 09/06/17 17:31 Dose: 325 mg Furosemide (Lasix -) 40 mg PO BID@0600,1400 [facility] Last Admin: 09/06/17 13:39 Dose: 40 mg Furosemide (Lasix Injection -) 20 mg IVPUSH ONCE PRN PRN Reason: SHORTNESS OF BREATH Last Admin: 09/05/17 22:23 Dose: 20 mg Iron Sucrose 100 mg/ Sodium (Chloride) 100 mls @ 200 mls/hr IVPB DAILY [facility] Stop: 09/08/17 10:29 Last Admin: 09/06/17 10:28 Dose: 200 mls/hr Insulin Aspart (Novolog Vial Sliding Scale -) 1 vial SQ ACHS [facility] PRN Reason: Protocol Last Admin: 09/06/17 21:12 Dose: 6 units Lidocaine (Lidoderm Patch -) 2 patch TP DAILY [facility] Meclizine HCl (Antivert -) 12.5 mg PO BID [facility] Last Admin: 09/06/17 21:10 Dose: 12.5 mg Methylprednisolone Sodium Succinate (Solu-Medrol -) 40 mg IVPUSH Q12H [facility] Last Admin: 09/06/17 21:47 Dose: 40 mg Miscellaneous (Lidoderm Patch Removal) 1 each MC DAILY@2200 [facility] Last Admin: 09/06/17 21:10 Dose: 1 each Nifedipine (Procardia Xl -) 30 mg PO DAILY [facility] Last Admin: 09/06/17 09:03 Dose: 30 mg Cyclosporine [ Restasis] 0.05% Eye Drops 1 each OU BID [facility] Last Admin: 09/06/17 21:10 Dose: 1 each Nystatin (Nystop Powder -) 1 applic TP BID [facility] Last Admin: 09/06/17 21:10 Dose: 1 applic Nystatin (Nystatin Oral Suspension -) 500,000 units PO TID [facility] Last Admin: 09/06/17 21:10 Dose: 500,000 units Pantoprazole Sodium (Protonix -) 40 mg PO DAILY [facility] Last Admin: 09/06/17 09:03 Dose: 40 mg Polyethylene Glycol (Miralax (For Daily Use) -) 17 gm PO DAILY [facility] Last Admin: 09/06/17 10:26 Dose: 17 grams Rosuvastatin Calcium (Crestor -) 10 mg PO HS [facility] Last Admin: 09/06/17 21:10 Dose: 10 mg Senna (Senna -) 1 tab PO BID [facility] Last Admin: 09/06/17 21:11 Dose: 1 tab Sodium Chloride ([place] Nasal [place] -) 2 spray NS BID [facility] Last Admin: 09/06/17 21:11 Dose: 2 sprays Valsartan (Diovan -) 160 mg PO DAILY [facility] Last Admin: 09/06/17 09:02 Dose: 160 mg Warfarin Sodium (Coumadin -) 3 mg PO DAILY@1800 [facility] Last Admin: 09/06/17 17:31 Dose: 3 mg - Objective Vital Signs: Vital Signs Temperature 98.4 F 09/06/17 18:00 Pulse Rate 79 09/06/17 18:00 Respiratory Rate 24 09/06/17 18:00 Blood Pressure 134/68 09/06/17 18:00 O2 Sat by Pulse Oximetry (%) 100 09/06/17 09:00 Constitutional: Yes: Well Nourished HENT: Yes: WNL Neck: Yes: WNL, Supple Cardiovascular: Yes: WNL, Regular Rate and Rhythm Respiratory: Yes: Diminished Gastrointestinal: Yes: WNL, Normal Bowel Sounds, Soft Edema: LLE: Trace, RLE: Trace Labs: CBC, BMP 09/06/17 12:53 09/04/17 12:00 INR, PTT INR 1.64 (0.82-1.09) H 09/06/17 13:49 Problem List - Problems (1) COPD exacerbation Assessment/Plan: Cont IV solumedrol wc has been tapered Pt encourage to OOB Cont nebulizers/spiriva/symbicort Code(s): J44.1 - CHRONIC OBSTRUCTIVE PULMONARY DISEASE W (ACUTE) EXACERBATION (2) History of pulmonary embolism Assessment/Plan: Monitor PT/inr Cont coumadin Code(s): Z86.711 - PERSONAL HISTORY OF PULMONARY EMBOLISM (3) Hypertension Assessment/Plan: BP stable Cont procardia/diovan Code(s): I10 - ESSENTIAL (PRIMARY) HYPERTENSION (4) Chronic diastolic (congestive) heart failure Assessment/Plan: Cont lasix Monitor electrolytes Code(s): I50.32 - CHRONIC DIASTOLIC (CONGESTIVE) HEART FAILURE (5) Morbid obesity Code(s): E66.01 - MORBID (SEVERE) OBESITY DUE TO EXCESS CALORIES (6) HLD (hyperlipidemia) Code(s): E78.5 - HYPERLIPIDEMIA, UNSPECIFIED (7) Hemorrhoid Assessment/Plan: Cont anusol Code(s): K64.9 - UNSPECIFIED HEMORRHOIDS (8) Conjunctival hemorrhage of right eye Assessment/Plan: Resolved Code(s): H11.31 - CONJUNCTIVAL HEMORRHAGE, RIGHT EYE (9) DVT (deep venous thrombosis) Assessment/Plan: Monitor PT/inr Code(s): I82.409 - ACUTE EMBOLISM AND THOMBOS UNSP DEEP VN UNSP LOWER EXTREMITY (10) Coronary artery disease Code(s): I25.10 - ATHSCL HEART DISEASE OF [place] CORONARY ARTERY W/O ANG PCTRS
[2017-09-07 00:10] LABS: SERUM IRON 227 ug/dL (27-139); TOTAL IRON BINDING CAPACITY 251 ug/dL (250-450); UIBC 24 ug/dL (118-369)
[2017-09-07] MEDS: NYSTATIN 500,000 UNITS/5 ML SUSPENSION PO SCH ×3 (06:27→21:46)
[2017-09-07] MEDS: INSULIN SLIDING SCALE (NOVOLOG) 1 VIAL SQ SCH ×4 (06:27→22:03)
[2017-09-07] MEDS: FUROSEMIDE 40 MG TABLET (FP) PO SCH ×2 (06:27→14:59)
[2017-09-07] MEDS: ALBUTEROL SO4 2.5/IPRATROPIUM 0.5 INH SOL 3 ML VIAL.NEB. NEB SCH ×4 (06:53→23:14)
[2017-09-07 07:57] LABS: INR 1.5 (0.82-1.09)
[2017-09-07] MEDS: FERROUS SO4 325 MG TABLET (FP) PO SCH ×3 (08:26→17:34)
[2017-09-07] MEDS: ASPIRIN 81 MG CHEWABLE TABLETS PO SCH (11:21)
[2017-09-07] MEDS: SENNOSIDES 8.6MG TABLET (FP) PO SCH ×2 (11:21→21:47)
[2017-09-07] MEDS: PANTOPRAZOLE 40 MG TABLET (FP) PO SCH (11:22)
[2017-09-07] MEDS: MECLIZINE HCL 12.5 MG TABLET PO SCH ×2 (11:22→21:47)
[2017-09-07] MEDS: VALSARTAN 160 MG TABLET (UD) PO SCH (11:22)
[2017-09-07] MEDS: methylPREDNISolone NA SUCC 40 MG/1 ML VIAL IVPUSH SCH ×2 (11:23→21:47)
[2017-09-07] MEDS: CHOLECALCIFEROL (VITAMIN D3) 1,000 UNIT TABLET (FP) PO SCH (11:23)
[2017-09-07] MEDS: NIFEdipine E.R. 30 MG TABLET (FP) PO SCH (11:23)
[2017-09-07] MEDS: NYSTATIN POWDER 100,000 UNITS/GM - 15 GM TOPICAL POWDER TP SCH ×2 (11:24→21:45)
[2017-09-07] MEDS: LIDOCAINE 5% TOPICAL PATCH TP SCH (11:26)
[2017-09-07] MEDS: POLYETHYLENE GLYCOL 3350 119 GM BTL PO SCH (11:26)
[2017-09-07] MEDS: PHENYLEPH/MINERAL OIL/PETROLAT 28 GM OINTMENT RC SCH ×2 (11:27→21:48)
[2017-09-07] MEDS: SODIUM CHLORIDE NASAL SPRAY 44 ML BOTTLE NS SCH ×2 (11:28→21:48)
[2017-09-07] MEDS: IRON SUCROSE INJECTION 100 MG in SODIUM CHLORIDE 95 ML IVPB SCH (11:46)
[2017-09-07] MEDS: BUDESONIDE/FORMETEROL FUMARATE 160/4.5 mcg INHALER IH SCH ×2 (11:48→21:46)
[2017-09-07] MEDS ORDERED: PT OWN MED DRAWER 7, Y5N ONE (12:24)
--- NOTE | 2017-09-07 14:36 | PN ---
Progress Note, Physician History of Present Illness: puloary alert,c/o sob,-cough,-cp - Current Medication List Current Medications: Active Medications Acetaminophen (Tylenol -) 1,000 mg PO Q8H PRN PRN Reason: PAIN Albuterol Sulfate (Ventolin 0.083% Nebulizer Soln -) 1 amp NEB Q4H PRN PRN Reason: SHORT OF BREATH/WHEEZING Albuterol/Ipratropium (Duoneb -) 1 amp NEB QIDR [facility] Last Admin: 09/07/17 11:07 Dose: 1 amp Aspirin (Asa -) 81 mg PO DAILY [facility] Last Admin: 09/07/17 11:21 Dose: 81 mg Budesonide/Formoterol Fumarate (Symbicort 160/4.5mcg -) 1 puff IH BID [facility] Last Admin: 09/07/17 11:48 Dose: 1 puff Cholecalciferol (Vitamin D3 -) 2,000 unit PO DAILY [facility] Last Admin: 09/07/17 11:23 Dose: 2,000 unit Ferrous Sulfate (Feosol -) 325 mg PO TIDCM [facility] Last Admin: 09/07/17 11:23 Dose: 325 mg Furosemide (Lasix -) 40 mg PO BID@0600,1400 [facility] Last Admin: 09/07/17 06:27 Dose: 40 mg Furosemide (Lasix Injection -) 20 mg IVPUSH ONCE PRN PRN Reason: SHORTNESS OF BREATH Last Admin: 09/05/17 22:23 Dose: 20 mg Iron Sucrose 100 mg/ Sodium (Chloride) 100 mls @ 200 mls/hr IVPB DAILY [facility] Stop: 09/08/17 10:29 Last Admin: 09/07/17 11:46 Dose: 200 mls/hr Insulin Aspart (Novolog Vial Sliding Scale -) 1 vial SQ ACHS [facility] PRN Reason: Protocol Last Admin: 09/07/17 11:49 Dose: Not Given Lidocaine (Lidoderm Patch -) 2 patch TP DAILY [facility] Last Admin: 09/07/17 11:26 Dose: 2 patch Meclizine HCl (Antivert -) 12.5 mg PO BID [facility] Last Admin: 09/07/17 11:22 Dose: 12.5 mg Methylprednisolone Sodium Succinate (Solu-Medrol -) 40 mg IVPUSH Q12H [facility] Last Admin: 09/07/17 11:23 Dose: 40 mg Miscellaneous (Lidoderm Patch Removal) 1 each MC DAILY@2200 [facility] Last Admin: 09/06/17 21:10 Dose: 1 each Nifedipine (Procardia Xl -) 30 mg PO DAILY [facility] Last Admin: 09/07/17 11:23 Dose: 30 mg Cyclosporine [ Restasis] 0.05% Eye Drops 1 each OU BID [facility] Last Admin: 09/07/17 11:27 Dose: 1 each Nystatin (Nystop Powder -) 1 applic TP BID [facility] Last Admin: 09/07/17 11:24 Dose: 1 applic Nystatin (Nystatin Oral Suspension -) 500,000 units PO TID [facility] Last Admin: 09/07/17 06:27 Dose: 500,000 units Pantoprazole Sodium (Protonix -) 40 mg PO DAILY [facility] Last Admin: 09/07/17 11:22 Dose: 40 mg Polyethylene Glycol (Miralax (For Daily Use) -) 17 gm PO DAILY [facility] Last Admin: 09/07/17 11:26 Dose: 17 grams Rosuvastatin Calcium (Crestor -) 10 mg PO HS [facility] Last Admin: 09/06/17 21:10 Dose: 10 mg Senna (Senna -) 1 tab PO BID [facility] Last Admin: 09/07/17 11:21 Dose: 1 tab Sodium Chloride ([place] Nasal [place] -) 2 spray NS BID [facility] Last Admin: 09/07/17 11:28 Dose: Not Given Valsartan (Diovan -) 160 mg PO DAILY [facility] Last Admin: 09/07/17 11:22 Dose: 160 mg Warfarin Sodium (Coumadin -) 3 mg PO DAILY@1800 [facility] Last Admin: 09/06/17 17:31 Dose: 3 mg - Objective Vital Signs: Vital Signs Temperature 98.3 F 09/07/17 08:31 Pulse Rate 84 09/07/17 10:07 Respiratory Rate 19 09/07/17 08:31 Blood Pressure 149/61 09/07/17 08:31 O2 Sat by Pulse Oximetry (%) 97 09/07/17 10:07 Constitutional: Yes: Well Nourished, Calm, Obese Eyes: Yes: WNL HENT: Yes: WNL Neck: Yes: WNL Cardiovascular: Yes: Regular Rate and Rhythm, S1, S2 Respiratory: Yes: Diminished Gastrointestinal: Yes: Normal Bowel Sounds, Soft Extremities: Yes: WNL Edema: Yes Labs: CBC, BMP Problem List - Problems (1) Coronary artery disease Code(s): I25.10 - ATHSCL HEART DISEASE OF [place] CORONARY ARTERY W/O ANG PCTRS (2) COPD exacerbation Code(s): J44.1 - CHRONIC OBSTRUCTIVE PULMONARY DISEASE W (ACUTE) EXACERBATION (3) CHF (congestive heart failure) Code(s): I50.9 - HEART FAILURE, UNSPECIFIED (4) History of pulmonary embolism Code(s): Z86.711 - PERSONAL HISTORY OF PULMONARY EMBOLISM (5) Pulmonary hypertension Code(s): I27.2 - OTHER SECONDARY PULMONARY HYPERTENSION * DO NOT USE * (6) SOB (shortness of breath) Code(s): R06.02 - SHORTNESS OF BREATH (7) Chronic diastolic (congestive) heart failure Code(s): I50.32 - CHRONIC DIASTOLIC (CONGESTIVE) HEART FAILURE (8) Anemia Code(s): D64.9 - ANEMIA, UNSPECIFIED (9) Acute on chronic respiratory failure with hypoxia and hypercapnia Code(s): J96.21 - ACUTE AND CHRONIC RESPIRATORY FAILURE WITH HYPOXIA; J96.22 - ACUTE AND CHRONIC RESPIRATORY FAILURE WITH HYPERCAPNIA (10) Morbid obesity Code(s): E66.01 - MORBID (SEVERE) OBESITY DUE TO EXCESS CALORIES Assessment/Plan IMP ACUTE ON CHRONIC HYPOXEMIC/HYPERCAPNEIC RESPIRATORY FAILURE END STAGE COPD O2 DEPENDENT WITH ACUTE EXACERBATION URI DIASTOLIC HF PULMONARY HTN H/O RECURRENT PULMONARY EMBOLI HTN MORBID OBESITY ANEMIA S/P TRANSFUSION PLAN IV STEROIDS 30mg q12 SUPPLEMENTAL O2 INHALED BRONCHODILATORS NIPPV NEEDED DIURETICS MONITOR H+H TRANSFUSE NEEDED DR FOX Problem List - Problems (1) SOB (shortness of breath) Code(s): R06.02 - SHORTNESS OF BREATH (2) Acute on chronic respiratory failure with hypoxia and hypercapnia Code(s): J96.21 - ACUTE AND CHRONIC RESPIRATORY FAILURE WITH HYPOXIA J96.22 - ACUTE AND CHRONIC RESPIRATORY FAILURE WITH HYPERCAPNIA (3) Anemia Code(s): D64.9 - ANEMIA, UNSPECIFIED (4) CHF (congestive heart failure) Code(s): I50.9 - HEART FAILURE, UNSPECIFIED (5) COPD exacerbation Code(s): J44.1 - CHRONIC OBSTRUCTIVE PULMONARY DISEASE W (ACUTE) EXACERBATION (6) Chronic diastolic (congestive) heart failure Code(s): I50.32 - CHRONIC DIASTOLIC (CONGESTIVE) HEART FAILURE (7) Coronary artery disease Code(s): I25.10 - ATHSCL HEART DISEASE OF [place] CORONARY ARTERY W/O ANG PCTRS (8) History of pulmonary embolism Code(s): Z86.711 - PERSONAL HISTORY OF PULMONARY EMBOLISM (9) Morbid obesity Code(s): E66.01 - MORBID (SEVERE) OBESITY DUE TO EXCESS CALORIES (10) Pulmonary hypertension Code(s): I27.2 - OTHER SECONDARY PULMONARY HYPERTENSION * DO NOT USE *
--- NOTE | 2017-09-07 15:36 | PN ---
Progress Note, Physician History of Present Illness: stable hurts in abd after coughing - Current Medication List Current Medications: Active Medications Acetaminophen (Tylenol -) 1,000 mg PO Q8H PRN PRN Reason: PAIN Albuterol Sulfate (Ventolin 0.083% Nebulizer Soln -) 1 amp NEB Q4H PRN PRN Reason: SHORT OF BREATH/WHEEZING Albuterol/Ipratropium (Duoneb -) 1 amp NEB QIDR [facility] Last Admin: 09/07/17 11:07 Dose: 1 amp Aspirin (Asa -) 81 mg PO DAILY [facility] Last Admin: 09/07/17 11:21 Dose: 81 mg Budesonide/Formoterol Fumarate (Symbicort 160/4.5mcg -) 1 puff IH BID [facility] Last Admin: 09/07/17 11:48 Dose: 1 puff Cholecalciferol (Vitamin D3 -) 2,000 unit PO DAILY [facility] Last Admin: 09/07/17 11:23 Dose: 2,000 unit Ferrous Sulfate (Feosol -) 325 mg PO TIDCM [facility] Last Admin: 09/07/17 11:23 Dose: 325 mg Furosemide (Lasix -) 40 mg PO BID@0600,1400 [facility] Last Admin: 09/07/17 14:59 Dose: 40 mg Furosemide (Lasix Injection -) 20 mg IVPUSH ONCE PRN PRN Reason: SHORTNESS OF BREATH Last Admin: 09/05/17 22:23 Dose: 20 mg Iron Sucrose 100 mg/ Sodium (Chloride) 100 mls @ 200 mls/hr IVPB DAILY [facility] Stop: 09/08/17 10:29 Last Admin: 09/07/17 11:46 Dose: 200 mls/hr Insulin Aspart (Novolog Vial Sliding Scale -) 1 vial SQ ACHS [facility] PRN Reason: Protocol Last Admin: 09/07/17 11:49 Dose: Not Given Lidocaine (Lidoderm Patch -) 2 patch TP DAILY [facility] Last Admin: 09/07/17 11:26 Dose: 2 patch Meclizine HCl (Antivert -) 12.5 mg PO BID [facility] Last Admin: 09/07/17 11:22 Dose: 12.5 mg Methylprednisolone Sodium Succinate (Solu-Medrol -) 40 mg IVPUSH Q12H [facility] Last Admin: 09/07/17 11:23 Dose: 40 mg Miscellaneous (Lidoderm Patch Removal) 1 each MC DAILY@2200 [facility] Last Admin: 09/06/17 21:10 Dose: 1 each Nifedipine (Procardia Xl -) 30 mg PO DAILY [facility] Last Admin: 09/07/17 11:23 Dose: 30 mg Cyclosporine [ Restasis] 0.05% Eye Drops 1 each OU BID [facility] Last Admin: 09/07/17 11:27 Dose: 1 each Nystatin (Nystop Powder -) 1 applic TP BID [facility] Last Admin: 09/07/17 11:24 Dose: 1 applic Nystatin (Nystatin Oral Suspension -) 500,000 units PO TID [facility] Last Admin: 09/07/17 14:59 Dose: 500,000 units Pantoprazole Sodium (Protonix -) 40 mg PO DAILY [facility] Last Admin: 09/07/17 11:22 Dose: 40 mg Polyethylene Glycol (Miralax (For Daily Use) -) 17 gm PO DAILY [facility] Last Admin: 09/07/17 11:26 Dose: 17 grams Rosuvastatin Calcium (Crestor -) 10 mg PO HS [facility] Last Admin: 09/06/17 21:10 Dose: 10 mg Senna (Senna -) 1 tab PO BID [facility] Last Admin: 09/07/17 11:21 Dose: 1 tab Sodium Chloride ([place] Nasal [place] -) 2 spray NS BID [facility] Last Admin: 09/07/17 11:28 Dose: Not Given Valsartan (Diovan -) 160 mg PO DAILY [facility] Last Admin: 09/07/17 11:22 Dose: 160 mg Warfarin Sodium (Coumadin -) 3 mg PO DAILY@1800 [facility] Last Admin: 09/06/17 17:31 Dose: 3 mg - Objective Vital Signs: Vital Signs Temperature 99.2 F 09/07/17 14:00 Pulse Rate 101 H 09/07/17 14:00 Respiratory Rate 18 09/07/17 14:00 Blood Pressure 132/63 09/07/17 14:00 O2 Sat by Pulse Oximetry (%) 97 09/07/17 10:07 Constitutional: Yes: No Distress, Calm, Obese Cardiovascular: Yes: S1, S2 Respiratory: Yes: Cough, On Nasal O2, Poor Air Entry Gastrointestinal: Yes: Normal Bowel Sounds, Soft Musculoskeletal: Yes: WNL Extremities: Yes: WNL Neurological: Yes: Alert, Oriented Psychiatric: Yes: Alert, Oriented Labs: CBC, BMP 09/06/17 12:53 11/10/17 12:00 INR, PTT INR 1.50 (0.82-1.09) H 09/07/17 05:15 Assessment/Plan Problem List - Problems (1) SOB (shortness of breath) Code(s): R06.02 - SHORTNESS OF BREATH (2) Acute on chronic respiratory failure with hypoxia and hypercapnia Code(s): J96.21 - ACUTE AND CHRONIC RESPIRATORY FAILURE WITH HYPOXIA J96.22 - ACUTE AND CHRONIC RESPIRATORY FAILURE WITH HYPERCAPNIA (3) Anemia Code(s): D64.9 - ANEMIA, UNSPECIFIED (4) CHF (congestive heart failure) Code(s): I50.9 - HEART FAILURE, UNSPECIFIED (5) COPD exacerbation Code(s): J44.1 - CHRONIC OBSTRUCTIVE PULMONARY DISEASE W (ACUTE) EXACERBATION (6) Chronic diastolic (congestive) heart failure Code(s): I50.32 - CHRONIC DIASTOLIC (CONGESTIVE) HEART FAILURE (7) Coronary artery disease Code(s): I25.10 - ATHSCL HEART DISEASE OF [place] CORONARY ARTERY W/O ANG PCTRS (8) History of pulmonary embolism Code(s): Z86.711 - PERSONAL HISTORY OF PULMONARY EMBOLISM (9) Morbid obesity Code(s): E66.01 - MORBID (SEVERE) OBESITY DUE TO EXCESS CALORIES (10) Pulmonary hypertension Code(s): I27.2 - OTHER SECONDARY PULMONARY HYPERTENSION * DO NOT USE * plan continue to monitor off of abx patient receiving iron transfusion continue current mgmt rest as per primary
[2017-09-07] MEDS ORDERED: INSULIN (NOVOLOG) ASPART 100 UNITS/ML 10ML VIAL ONE ×2 (16:36→21:10)
[2017-09-07] MEDS: WARFARIN NA 3 MG TABLET PO SCH (18:07)
[2017-09-07] MEDS ORDERED: WARFARIN NA 2 MG TABLET (UD) PO ONE (18:15)
[2017-09-07] MEDS: ROSUVASTATIN CA 10 MG TABLET (FP) PO SCH (21:47)
[2017-09-07] MEDS: LIDOCAINE PATCH REMOVAL MC SCH (21:47)
--- NOTE | 2017-09-07 22:11 | PN ---
Progress Note, Physician History of Present Illness: Pt w/ no new complaints however she seems slightly winded while speaking - Current Medication List Current Medications: Active Medications Acetaminophen (Tylenol -) 1,000 mg PO Q8H PRN PRN Reason: PAIN Albuterol Sulfate (Ventolin 0.083% Nebulizer Soln -) 1 amp NEB Q4H PRN PRN Reason: SHORT OF BREATH/WHEEZING Albuterol/Ipratropium (Duoneb -) 1 amp NEB QIDR [facility] Last Admin: 09/07/17 18:49 Dose: 1 amp Aspirin (Asa -) 81 mg PO DAILY [facility] Last Admin: 09/07/17 11:21 Dose: 81 mg Budesonide/Formoterol Fumarate (Symbicort 160/4.5mcg -) 1 puff IH BID [facility] Last Admin: 09/07/17 21:46 Dose: 1 puff Cholecalciferol (Vitamin D3 -) 2,000 unit PO DAILY [facility] Last Admin: 09/07/17 11:23 Dose: 2,000 unit Ferrous Sulfate (Feosol -) 325 mg PO TIDCM [facility] Last Admin: 09/07/17 17:34 Dose: 325 mg Furosemide (Lasix -) 40 mg PO BID@0600,1400 [facility] Last Admin: 09/07/17 14:59 Dose: 40 mg Furosemide (Lasix Injection -) 20 mg IVPUSH ONCE PRN PRN Reason: SHORTNESS OF BREATH Last Admin: 09/05/17 22:23 Dose: 20 mg Iron Sucrose 100 mg/ Sodium (Chloride) 100 mls @ 200 mls/hr IVPB DAILY [facility] Stop: 09/08/17 10:29 Last Admin: 09/07/17 11:46 Dose: 200 mls/hr Insulin Aspart (Novolog Vial Sliding Scale -) 1 vial SQ ACHS [facility] PRN Reason: Protocol Last Admin: 09/07/17 22:03 Dose: 6 units Lidocaine (Lidoderm Patch -) 2 patch TP DAILY [facility] Last Admin: 09/07/17 11:26 Dose: 2 patch Meclizine HCl (Antivert -) 12.5 mg PO BID [facility] Last Admin: 09/07/17 21:47 Dose: 12.5 mg Methylprednisolone Sodium Succinate (Solu-Medrol -) 40 mg IVPUSH Q12H [facility] Last Admin: 09/07/17 21:47 Dose: 40 mg Miscellaneous (Lidoderm Patch Removal) 1 each MC DAILY@2200 [facility] Last Admin: 09/07/17 21:47 Dose: 1 each Nifedipine (Procardia Xl -) 30 mg PO DAILY [facility] Last Admin: 09/07/17 11:23 Dose: 30 mg Cyclosporine [ Restasis] 0.05% Eye Drops 1 each OU BID [facility] Last Admin: 09/07/17 21:47 Dose: 1 each Nystatin (Nystop Powder -) 1 applic TP BID [facility] Last Admin: 09/07/17 21:45 Dose: 1 applic Nystatin (Nystatin Oral Suspension -) 500,000 units PO TID [facility] Last Admin: 09/07/17 21:46 Dose: 500,000 units Pantoprazole Sodium (Protonix -) 40 mg PO DAILY [facility] Last Admin: 09/07/17 11:22 Dose: 40 mg Polyethylene Glycol (Miralax (For Daily Use) -) 17 gm PO DAILY [facility] Last Admin: 09/07/17 11:26 Dose: 17 grams Rosuvastatin Calcium (Crestor -) 10 mg PO HS [facility] Last Admin: 09/07/17 21:47 Dose: 10 mg Senna (Senna -) 1 tab PO BID [facility] Last Admin: 09/07/17 21:47 Dose: 1 tab Sodium Chloride ([place] Nasal [place] -) 2 spray NS BID [facility] Last Admin: 09/07/17 21:48 Dose: Not Given Valsartan (Diovan -) 160 mg PO DAILY [facility] Last Admin: 09/07/17 11:22 Dose: 160 mg Warfarin Sodium (Coumadin -) 3 mg PO DAILY@1800 [facility] Last Admin: 09/07/17 18:07 Dose: 3 mg - Objective Vital Signs: Vital Signs Temperature 98.7 F 09/07/17 18:00 Pulse Rate 99 H 09/07/17 18:00 Respiratory Rate 18 09/07/17 18:00 Blood Pressure 131/56 09/07/17 18:00 O2 Sat by Pulse Oximetry (%) 97 09/07/17 10:07 Constitutional: Yes: Well Nourished Eyes: Yes: WNL HENT: Yes: WNL Neck: Yes: WNL, Supple Cardiovascular: Yes: WNL, Regular Rate and Rhythm Respiratory: Yes: Diminished Gastrointestinal: Yes: WNL, Normal Bowel Sounds, Soft, Abdomen, Obese Edema: LLE: 2+, RLE: 2+ Labs: CBC, BMP 09/06/17 12:53 09/04/17 12:00 INR, PTT INR 1.50 (0.82-1.09) H 09/07/17 05:15 Problem List - Problems (1) COPD exacerbation Assessment/Plan: Cont IV solumedrol wc is being slowly tapered Cont nebulizers/spiriva/symbicort Code(s): J44.1 - CHRONIC OBSTRUCTIVE PULMONARY DISEASE W (ACUTE) EXACERBATION (2) Chronic diastolic (congestive) heart failure Assessment/Plan: Cont lasix Pt w/ increased edema Will give extra dose of IV lasix in am Monitor electrolytes Code(s): I50.32 - CHRONIC DIASTOLIC (CONGESTIVE) HEART FAILURE (3) History of pulmonary embolism Assessment/Plan: Monitor PT/inr wc is subtherapeutic Will increase coumadin and give extra dose today Code(s): Z86.711 - PERSONAL HISTORY OF PULMONARY EMBOLISM (4) Hypertension Assessment/Plan: BP stable Cont procardia/diovan Code(s): I10 - ESSENTIAL (PRIMARY) HYPERTENSION (5) Coronary artery disease Code(s): I25.10 - ATHSCL HEART DISEASE OF [place] CORONARY ARTERY W/O ANG PCTRS (6) HLD (hyperlipidemia) Code(s): E78.5 - HYPERLIPIDEMIA, UNSPECIFIED (7) Hemorrhoid Code(s): K64.9 - UNSPECIFIED HEMORRHOIDS (8) Conjunctival hemorrhage of right eye Code(s): H11.31 - CONJUNCTIVAL HEMORRHAGE, RIGHT EYE (9) Morbid obesity Code(s): E66.01 - MORBID (SEVERE) OBESITY DUE TO EXCESS CALORIES (10) Pulmonary embolus Code(s): I26.99 - OTHER PULMONARY EMBOLISM WITHOUT ACUTE COR PULMONALE (11) DVT (deep venous thrombosis) Code(s): I82.409 - ACUTE EMBOLISM AND THOMBOS UNSP DEEP VN UNSP LOWER EXTREMITY
[2017-09-08 00:06] LABS: A/G RATIO 1.3 (0.7-1.7); ALPHA-1-GLOBULIN 0.2 g/dL (0.0-0.4); BETA GLOBULIN 0.9 g/dL (0.7-1.3); GAMMA GLOBULIN 0.5 g/dL (0.4-1.8); GLOBULIN, TOTAL 2.4 g/dL (2.2-3.9); M-SPIKE Not Observed g/dL (Not Observed); TOTAL PROTEIN 5.4 g/dL (6.0-8.5)
[2017-09-08] MEDS: WARFARIN NA 2 MG TABLET (UD) PO SCH ×2 (02:55→18:06)
[2017-09-08] MEDS: ALBUTEROL SO4 2.5/IPRATROPIUM 0.5 INH SOL 3 ML VIAL.NEB. NEB SCH ×4 (06:19→23:45)
[2017-09-08] MEDS: INSULIN SLIDING SCALE (NOVOLOG) 1 VIAL SQ SCH ×4 (06:40→22:30)
[2017-09-08] MEDS: NYSTATIN 500,000 UNITS/5 ML SUSPENSION PO SCH ×3 (06:40→22:30)
[2017-09-08] MEDS: FUROSEMIDE 40 MG TABLET (FP) PO SCH ×2 (06:40→14:22)
[2017-09-08 07:27] LABS: BASOPHIL 0.3 % (0-2.0); MCH 22.6 pg (25.7-33.7); MCHC 28.7 g/dl (32.0-36.0); MEAN CELL VOLUME 78.8 fl (80-96); MEAN PLT VOLUME 8.7 fl (7.5-11.1); NEUTROPHILS 89.3 % (42.8-82.8); PLATELET COUNT 150 K/MM3 (134-434); RDW 16.6 % (11.6-15.6); WHITE BLOOD COUNT 18.9 K/mm3 (4.0-10.0)
[2017-09-08 07:50] LABS: INR 1.83 (0.82-1.09); PROTHROMBIN TIME (PATIENT) 20.7 SEC (9.98-11.88)
[2017-09-08 08:21] LABS: ALBUMIN 3.4 g/dl (3.4-5.0); ALK PHOS 59 U/L (45-117); ANION GAP 10 (8-16); CALCIUM 8.4 mg/dL (8.5-10.1); CO2 39 mmol/L (21-32); CREATININE 1.2 mg/dL (0.55-1.02); GLUCOSE,RANDOM 188 mg/dL (74-106); SGOT/AST 21 U/L (15-37); SGPT/ALT 45 U/L (12-78); TOT PROT 5.7 g/dl (6.4-8.2)
--- NOTE | 2017-09-08 08:44 | PN ---
Progress Note, Physician Chief Complaint: still SOB ambulating to bathroom Transfused over weekend - Current Medication List Current Medications: Active Medications Acetaminophen (Tylenol -) 1,000 mg PO Q8H PRN PRN Reason: PAIN Albuterol Sulfate (Ventolin 0.083% Nebulizer Soln -) 1 amp NEB Q4H PRN PRN Reason: SHORT OF BREATH/WHEEZING Albuterol/Ipratropium (Duoneb -) 1 amp NEB QIDR [facility] Last Admin: 09/08/17 06:19 Dose: 1 amp Aspirin (Asa -) 81 mg PO DAILY [facility] Last Admin: 09/07/17 11:21 Dose: 81 mg Budesonide/Formoterol Fumarate (Symbicort 160/4.5mcg -) 1 puff IH BID [facility] Last Admin: 09/07/17 21:46 Dose: 1 puff Cholecalciferol (Vitamin D3 -) 2,000 unit PO DAILY [facility] Last Admin: 09/07/17 11:23 Dose: 2,000 unit Ferrous Sulfate (Feosol -) 325 mg PO TIDCM [facility] Last Admin: 09/07/17 17:34 Dose: 325 mg Furosemide (Lasix -) 40 mg PO BID@0600,1400 [facility] Last Admin: 09/08/17 06:40 Dose: 40 mg Furosemide (Lasix Injection -) 20 mg IVPUSH ONCE PRN PRN Reason: SHORTNESS OF BREATH Last Admin: 09/05/17 22:23 Dose: 20 mg Furosemide (Lasix Injection -) 20 mg IVPUSH ONCE ONE Stop: 09/08/17 10:51 Iron Sucrose 100 mg/ Sodium (Chloride) 100 mls @ 200 mls/hr IVPB DAILY [facility] Stop: 09/08/17 10:29 Last Admin: 09/07/17 11:46 Dose: 200 mls/hr Insulin Aspart (Novolog Vial Sliding Scale -) 1 vial SQ ACHS [facility] PRN Reason: Protocol Last Admin: 09/08/17 06:40 Dose: 2 units Lidocaine (Lidoderm Patch -) 2 patch TP DAILY [facility] Last Admin: 09/07/17 11:26 Dose: 2 patch Meclizine HCl (Antivert -) 12.5 mg PO BID [facility] Last Admin: 09/07/17 21:47 Dose: 12.5 mg Methylprednisolone Sodium Succinate (Solu-Medrol -) 40 mg IVPUSH Q12H [facility] Last Admin: 09/07/17 21:47 Dose: 40 mg Miscellaneous (Lidoderm Patch Removal) 1 each MC DAILY@2200 [facility] Last Admin: 09/07/17 21:47 Dose: 1 each Nifedipine (Procardia Xl -) 30 mg PO DAILY [facility] Last Admin: 09/07/17 11:23 Dose: 30 mg Cyclosporine [ Restasis] 0.05% Eye Drops 1 each OU BID [facility] Last Admin: 09/07/17 21:47 Dose: 1 each Nystatin (Nystop Powder -) 1 applic TP BID [facility] Last Admin: 09/07/17 21:45 Dose: 1 applic Nystatin (Nystatin Oral Suspension -) 500,000 units PO TID [facility] Last Admin: 09/08/17 06:40 Dose: 500,000 units Pantoprazole Sodium (Protonix -) 40 mg PO DAILY [facility] Last Admin: 09/07/17 11:22 Dose: 40 mg Polyethylene Glycol (Miralax (For Daily Use) -) 17 gm PO DAILY [facility] Last Admin: 09/07/17 11:26 Dose: 17 grams Rosuvastatin Calcium (Crestor -) 10 mg PO HS [facility] Last Admin: 09/07/17 21:47 Dose: 10 mg Senna (Senna -) 1 tab PO BID [facility] Last Admin: 09/07/17 21:47 Dose: 1 tab Sodium Chloride ([place] Nasal [place] -) 2 spray NS BID [facility] Last Admin: 09/07/17 21:48 Dose: Not Given Valsartan (Diovan -) 160 mg PO DAILY [facility] Last Admin: 09/07/17 11:22 Dose: 160 mg Warfarin Sodium (Coumadin -) 4 mg PO DAILY@1800 [facility] Last Admin: 09/08/17 02:55 Dose: 4 mg - Objective Vital Signs: Vital Signs Temperature 98.2 F 09/08/17 06:00 Pulse Rate 97 H 09/08/17 06:00 Respiratory Rate 20 09/08/17 06:00 Blood Pressure 150/78 09/08/17 06:00 O2 Sat by Pulse Oximetry (%) 95 09/07/17 21:00 Constitutional: Yes: No Distress Cardiovascular: Yes: Regular Rate and Rhythm Respiratory: Yes: Other (decreased breath sounds bilaterally, no active wheezing.) Gastrointestinal: Yes: Soft, Abdomen, Obese Musculoskeletal: Yes: Other (right arm with large superficial hematoma) Edema: No Neurological: Yes: Alert, Oriented Labs: CBC, BMP 09/08/17 06:35 09/08/17 06:35 INR, PTT INR 1.83 (0.82-1.09) H 09/08/17 06:35 Laboratory Tests 09/05/17 09/08/17 09/08/17 07:25 06:35 06:35 WBC 18.9 H Hgb 6.9 L* 8.5 L Plt Count 150 D INR 1.83 H Sodium Potassium BUN Creatinine 09/08/17 06:35 WBC Hgb Plt Count INR Sodium 141 Potassium 4.6 BUN 27 H D Creatinine 1.2 H Assessment/Plan Assessment/Plan AECOPD Acute on chronic diastolic CHF, mild exacerbation History of PE on coumadin REC: AE COPD Continue nebs, supp. O2 and steroid taper as per Pulmonary. Coumadin for INR 2-3; watch hematoma on right arm-- superficial. Check stool guaiac, assure H/H not from occult GI source.
[2017-09-08] MEDS ORDERED: PT OWN MED DRAWER 7, Y5N ONE ×2 (10:04→19:19)
[2017-09-08] MEDS: FERROUS SO4 325 MG TABLET (FP) PO SCH ×3 (10:34→18:07)
[2017-09-08] MEDS: PANTOPRAZOLE 40 MG TABLET (FP) PO SCH (10:35)
[2017-09-08] MEDS: LIDOCAINE 5% TOPICAL PATCH TP SCH (10:35)
[2017-09-08] MEDS: SENNOSIDES 8.6MG TABLET (FP) PO SCH ×2 (10:35→22:30)
[2017-09-08] MEDS: MECLIZINE HCL 12.5 MG TABLET PO SCH ×2 (10:40→22:30)
[2017-09-08] MEDS: NIFEdipine E.R. 30 MG TABLET (FP) PO SCH (10:40)
[2017-09-08] MEDS: NYSTATIN POWDER 100,000 UNITS/GM - 15 GM TOPICAL POWDER TP SCH ×2 (10:40→22:32)
[2017-09-08] MEDS: VALSARTAN 160 MG TABLET (UD) PO SCH (10:40)
[2017-09-08] MEDS: ASPIRIN 81 MG CHEWABLE TABLETS PO SCH (10:40)
[2017-09-08] MEDS: SODIUM CHLORIDE NASAL SPRAY 44 ML BOTTLE NS SCH ×2 (10:40→22:32)
[2017-09-08] MEDS: BUDESONIDE/FORMETEROL FUMARATE 160/4.5 mcg INHALER IH SCH ×2 (10:40→22:29)
[2017-09-08] MEDS: PHENYLEPH/MINERAL OIL/PETROLAT 28 GM OINTMENT RC SCH ×2 (10:41→22:34)
[2017-09-08] MEDS ORDERED: INSULIN (NOVOLOG) ASPART 100 UNITS/ML 10ML VIAL ONE ×2 (10:44→19:19)
[2017-09-08] MEDS: methylPREDNISolone NA SUCC 40 MG/1 ML VIAL IVPUSH SCH ×2 (10:48→22:30)
[2017-09-08] MEDS: CHOLECALCIFEROL (VITAMIN D3) 1,000 UNIT TABLET (FP) PO SCH (10:49)
[2017-09-08] MEDS ORDERED: FUROSEMIDE 40 MG/4 ML INJECTABLE VIAL IVPUSH ONE (10:50)
--- NOTE | 2017-09-08 10:52 | PN ---
Progress Note (short form) - Note Progress Note: Seen and examined Has SOB+ O/E: Last Vital Signs Morbid obseity On O2. HEENT: [place], EOM Intact Cor: RSR, No murmurs, No gallops Lungs: Clear to P&A.scattered rhonchi Abd: Soft, Normal bowel sounds, No organomegaly Ext:chronic edema Temp Pulse Resp BP Pulse Ox 98.2 F 97 H 20 150/78 95 09/08/17 06:00 09/08/17 06:00 09/08/17 06:00 09/08/17 06:00 09/07/17 21:00 CBC, BMP 09/08/17 06:35 09/08/17 06:35 Current Medications Generic Name Dose Route Start Last Admin Trade Name Freq PRN Reason Stop Dose Admin Acetaminophen 1,000 mg 09/06/17 14:52 Tylenol - PO Q8H PRN PAIN Albuterol Sulfate 1 amp 09/05/17 13:08 Ventolin 0.083% Nebulizer Soln - NEB Q4H PRN SHORT OF BREATH/WHEEZING Albuterol/Ipratropium 1 amp 09/04/17 18:00 09/08/17 06:19 Duoneb - NEB 1 amp QIDR SAIMA Administration Aspirin 81 mg 08/21/17 10:00 09/08/17 10:40 Asa - PO 81 mg DAILY SAIMA Administration Budesonide/Formoterol Fumarate 1 puff 08/21/17 10:00 09/08/17 10:40 Symbicort 160/4.5mcg - IH 1 puff BID SAIMA Administration Cholecalciferol 2,000 unit 08/21/17 10:00 09/08/17 10:49 Vitamin D3 - PO 2,000 unit DAILY SAIMA Administration Ferrous Sulfate 325 mg 08/24/17 20:00 09/08/17 10:34 Feosol - PO 325 mg TIDCM SAIMA Administration Furosemide 40 mg 09/01/17 14:00 09/08/17 06:40 Lasix - PO 40 mg BID@0600,1400 SAIMA Administration Furosemide 20 mg 09/05/17 12:16 09/05/17 22:23 Lasix Injection - IVPUSH 20 mg ONCE PRN Administration SHORTNESS OF BREATH Insulin Aspart 1 vial 08/21/17 07:00 09/08/17 06:40 Novolog Vial Sliding Scale - SQ 2 units ACHS SAIMA Administration Protocol Lidocaine 2 patch 09/06/17 14:53 09/08/17 10:35 Lidoderm Patch - TP 2 patch DAILY SAIMA Administration Meclizine HCl 12.5 mg 08/21/17 10:00 09/08/17 10:40 Antivert - PO 12.5 mg BID SAIMA Administration Methylprednisolone Sodium Succinate 40 mg 09/03/17 10:45 09/08/17 10:48 Solu-Medrol - IVPUSH 40 mg Q12H SAIMA Administration Miscellaneous 1 each 09/04/17 22:00 09/07/17 21:47 Lidoderm Patch Removal MC 1 each DAILY@2200 SAIMA Administration Nifedipine 30 mg 08/21/17 10:00 09/08/17 10:40 Procardia Xl - PO 30 mg DAILY SAIMA Administration Cyclosporine [ 1 each 08/29/17 22:00 09/08/17 10:40 Restasis] 0.05% Eye OU 1 each Drops BID SAIMA Administration Nystatin 1 applic 08/21/17 22:00 09/08/17 10:40 Nystop Powder - TP 1 applic BID SAIMA Administration Nystatin 500,000 units 08/26/17 22:00 09/08/17 06:40 Nystatin Oral Suspension - PO 500,000 units TID SAIMA Administration Pantoprazole Sodium 40 mg 08/21/17 10:00 09/08/17 10:35 Protonix - PO 40 mg DAILY SAIMA Administration Polyethylene Glycol 17 gm 09/03/17 04:00 09/07/17 11:26 Miralax (For Daily Use) - PO 17 grams DAILY SAIMA Administration Rosuvastatin Calcium 10 mg 08/21/17 22:00 09/07/17 21:47 Crestor - PO 10 mg HS SAIMA Administration Senna 1 tab 08/23/17 22:00 09/08/17 10:35 Senna - PO 1 tab BID SAIMA Administration Sodium Chloride 2 spray 08/27/17 22:00 09/08/17 10:40 [place] Nasal [place] - NS Not Given BID SAIMA Valsartan 160 mg 08/21/17 10:00 09/08/17 10:40 Diovan - PO 160 mg DAILY SAIMA Administration Warfarin Sodium 4 mg 09/08/17 02:00 09/08/17 02:55 Coumadin - PO 4 mg DAILY@1800 SAIMA Administration Chronic Microcytic anemia Leukocytosis Pulmonary emboli Acute COPD exacerbation End Stage Lung disease ( O2 dependant) dCHF Pulmonary HTN ( 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 -no M-spine noted -Stool occult was requested on 09/04 (downtime procedure, butr wasn't done), re- did the same today, now stool Occult reported as negative. -she was evaluated by GI in 02/2017 ("written as poor candidate for procedures given weight and respiratory status") -stool softeners, po iron -leucocytosis: combination of steroids/inflammatory, improving -c/w anastasiya, INR 2-3. -hematoma on the RUE, compressors recommended. will continue to monitor. -continues to be on IV steroids -COPD/dCHF as per Pulm and Cardiology d/w BRUCE
[2017-09-08] MEDS: POLYETHYLENE GLYCOL 3350 119 GM BTL PO SCH (11:25)
--- NOTE | 2017-09-08 12:07 | PN ---
Progress Note, Physician History of Present Illness: PULMONARY ALERT,DYSPNEIC WITH MIN EXERTION,+ HYPOXIC EARLIER ON NASAL O2 PLACED ON 40%VM O2 SAT97% - Current Medication List Current Medications: Active Medications Acetaminophen (Tylenol -) 1,000 mg PO Q8H PRN PRN Reason: PAIN Albuterol Sulfate (Ventolin 0.083% Nebulizer Soln -) 1 amp NEB Q4H PRN PRN Reason: SHORT OF BREATH/WHEEZING Albuterol/Ipratropium (Duoneb -) 1 amp NEB QIDR [facility] Last Admin: 09/08/17 11:18 Dose: Not Given Aspirin (Asa -) 81 mg PO DAILY [facility] Last Admin: 09/08/17 10:40 Dose: 81 mg Budesonide/Formoterol Fumarate (Symbicort 160/4.5mcg -) 1 puff IH BID [facility] Last Admin: 09/08/17 10:40 Dose: 1 puff Cholecalciferol (Vitamin D3 -) 2,000 unit PO DAILY [facility] Last Admin: 09/08/17 10:49 Dose: 2,000 unit Ferrous Sulfate (Feosol -) 325 mg PO TIDCM [facility] Last Admin: 09/08/17 10:34 Dose: 325 mg Furosemide (Lasix -) 40 mg PO BID@0600,1400 [facility] Last Admin: 09/08/17 06:40 Dose: 40 mg Furosemide (Lasix Injection -) 20 mg IVPUSH ONCE PRN PRN Reason: SHORTNESS OF BREATH Last Admin: 09/05/17 22:23 Dose: 20 mg Insulin Aspart (Novolog Vial Sliding Scale -) 1 vial SQ ACHS [facility] PRN Reason: Protocol Last Admin: 09/08/17 11:21 Dose: 2 units Lidocaine (Lidoderm Patch -) 2 patch TP DAILY [facility] Last Admin: 09/08/17 10:35 Dose: 2 patch Meclizine HCl (Antivert -) 12.5 mg PO BID [facility] Last Admin: 09/08/17 10:40 Dose: 12.5 mg Methylprednisolone Sodium Succinate (Solu-Medrol -) 40 mg IVPUSH Q12H [facility] Last Admin: 09/08/17 10:48 Dose: 40 mg Miscellaneous (Lidoderm Patch Removal) 1 each MC DAILY@2200 [facility] Last Admin: 09/07/17 21:47 Dose: 1 each Nifedipine (Procardia Xl -) 30 mg PO DAILY [facility] Last Admin: 09/08/17 10:40 Dose: 30 mg Cyclosporine [ Restasis] 0.05% Eye Drops 1 each OU BID [facility] Last Admin: 09/08/17 10:40 Dose: 1 each Nystatin (Nystop Powder -) 1 applic TP BID [facility] Last Admin: 09/08/17 10:40 Dose: 1 applic Nystatin (Nystatin Oral Suspension -) 500,000 units PO TID [facility] Last Admin: 09/08/17 06:40 Dose: 500,000 units Pantoprazole Sodium (Protonix -) 40 mg PO DAILY [facility] Last Admin: 09/08/17 10:35 Dose: 40 mg Polyethylene Glycol (Miralax (For Daily Use) -) 17 gm PO DAILY [facility] Last Admin: 09/08/17 11:25 Dose: Not Given Rosuvastatin Calcium (Crestor -) 10 mg PO HS [facility] Last Admin: 09/07/17 21:47 Dose: 10 mg Senna (Senna -) 1 tab PO BID [facility] Last Admin: 09/08/17 10:35 Dose: 1 tab Sodium Chloride ([place] Nasal [place] -) 2 spray NS BID [facility] Last Admin: 09/08/17 10:40 Dose: Not Given Valsartan (Diovan -) 160 mg PO DAILY [facility] Last Admin: 09/08/17 10:40 Dose: 160 mg Warfarin Sodium (Coumadin -) 4 mg PO DAILY@1800 [facility] Last Admin: 09/08/17 02:55 Dose: 4 mg - Objective Vital Signs: Vital Signs Temperature 98.2 F 09/08/17 06:00 Pulse Rate 108 H 09/08/17 11:18 Respiratory Rate 20 09/08/17 06:00 Blood Pressure 150/78 09/08/17 06:00 O2 Sat by Pulse Oximetry (%) 96 09/08/17 11:18 Constitutional: Yes: Calm, Obese Eyes: Yes: WNL HENT: Yes: WNL Neck: Yes: WNL Cardiovascular: Yes: Regular Rate and Rhythm, S1, S2 Respiratory: Yes: Diminished Gastrointestinal: Yes: Normal Bowel Sounds, Soft Extremities: Yes: WNL Edema: No Labs: CBC, BMP 09/08/17 06:35 09/08/17 06:35 INR, PTT INR 1.83 (0.82-1.09) H 09/08/17 06:35 Problem List - Problems (1) Coronary artery disease Code(s): I25.10 - ATHSCL HEART DISEASE OF [place] CORONARY ARTERY W/O ANG PCTRS (2) COPD exacerbation Code(s): J44.1 - CHRONIC OBSTRUCTIVE PULMONARY DISEASE W (ACUTE) EXACERBATION (3) CHF (congestive heart failure) Code(s): I50.9 - HEART FAILURE, UNSPECIFIED (4) History of pulmonary embolism Code(s): Z86.711 - PERSONAL HISTORY OF PULMONARY EMBOLISM (5) Pulmonary hypertension Code(s): I27.2 - OTHER SECONDARY PULMONARY HYPERTENSION * DO NOT USE * (6) SOB (shortness of breath) Code(s): R06.02 - SHORTNESS OF BREATH (7) Chronic diastolic (congestive) heart failure Code(s): I50.32 - CHRONIC DIASTOLIC (CONGESTIVE) HEART FAILURE (8) Anemia Code(s): D64.9 - ANEMIA, UNSPECIFIED (9) Acute on chronic respiratory failure with hypoxia and hypercapnia Code(s): J96.21 - ACUTE AND CHRONIC RESPIRATORY FAILURE WITH HYPOXIA; J96.22 - ACUTE AND CHRONIC RESPIRATORY FAILURE WITH HYPERCAPNIA (10) Morbid obesity Code(s): E66.01 - MORBID (SEVERE) OBESITY DUE TO EXCESS CALORIES Assessment/Plan IMP ACUTE ON CHRONIC HYPOXEMIC/HYPERCAPNEIC RESPIRATORY FAILURE END STAGE COPD O2 DEPENDENT WITH ACUTE EXACERBATION URI DIASTOLIC HF PULMONARY HTN H/O RECURRENT PULMONARY EMBOLI HTN MORBID OBESITY ANEMIA S/P TRANSFUSION PLAN IV STEROIDS 30mg q12 SUPPLEMENTAL O2 VIA VM INHALED BRONCHODILATORS NIPPV NEEDED DIURETICS MONITOR H+H TRANSFUSE NEEDED DR FOX Problem List - Problems (1) SOB (shortness of breath) Code(s): R06.02 - SHORTNESS OF BREATH (2) Acute on chronic respiratory failure with hypoxia and hypercapnia Code(s): J96.21 - ACUTE AND CHRONIC RESPIRATORY FAILURE WITH HYPOXIA J96.22 - ACUTE AND CHRONIC RESPIRATORY FAILURE WITH HYPERCAPNIA (3) Anemia Code(s): D64.9 - ANEMIA, UNSPECIFIED (4) CHF (congestive heart failure) Code(s): I50.9 - HEART FAILURE, UNSPECIFIED (5) COPD exacerbation Code(s): J44.1 - CHRONIC OBSTRUCTIVE PULMONARY DISEASE W (ACUTE) EXACERBATION (6) Chronic diastolic (congestive) heart failure Code(s): I50.32 - CHRONIC DIASTOLIC (CONGESTIVE) HEART FAILURE (7) Coronary artery disease Code(s): I25.10 - ATHSCL HEART DISEASE OF [place] CORONARY ARTERY W/O ANG PCTRS (8) History of pulmonary embolism Code(s): Z86.711 - PERSONAL HISTORY OF PULMONARY EMBOLISM (9) Morbid obesity Code(s): E66.01 - MORBID (SEVERE) OBESITY DUE TO EXCESS CALORIES (10) Pulmonary hypertension Code(s): I27.2 - OTHER SECONDARY PULMONARY HYPERTENSION * DO NOT USE *
[2017-09-08] MEDS: IRON SUCROSE INJECTION 100 MG in SODIUM CHLORIDE 95 ML IVPB SCH (13:17)
--- NOTE | 2017-09-08 15:37 | PN ---
Progress Note, Physician History of Present Illness: stable events noted fall in oxygen levels no on ventimask - Current Medication List Current Medications: Active Medications Acetaminophen (Tylenol -) 1,000 mg PO Q8H PRN PRN Reason: PAIN Albuterol Sulfate (Ventolin 0.083% Nebulizer Soln -) 1 amp NEB Q4H PRN PRN Reason: SHORT OF BREATH/WHEEZING Albuterol/Ipratropium (Duoneb -) 1 amp NEB QIDR [facility] Last Admin: 09/08/17 11:18 Dose: Not Given Aspirin (Asa -) 81 mg PO DAILY [facility] Last Admin: 09/08/17 10:40 Dose: 81 mg Budesonide/Formoterol Fumarate (Symbicort 160/4.5mcg -) 1 puff IH BID [facility] Last Admin: 09/08/17 10:40 Dose: 1 puff Cholecalciferol (Vitamin D3 -) 2,000 unit PO DAILY [facility] Last Admin: 09/08/17 10:49 Dose: 2,000 unit Ferrous Sulfate (Feosol -) 325 mg PO TIDCM [facility] Last Admin: 09/08/17 14:22 Dose: 325 mg Furosemide (Lasix -) 40 mg PO BID@0600,1400 [facility] Last Admin: 09/08/17 14:22 Dose: 40 mg Furosemide (Lasix Injection -) 20 mg IVPUSH ONCE PRN PRN Reason: SHORTNESS OF BREATH Last Admin: 09/05/17 22:23 Dose: 20 mg Insulin Aspart (Novolog Vial Sliding Scale -) 1 vial SQ ACHS [facility] PRN Reason: Protocol Last Admin: 09/08/17 11:21 Dose: 2 units Lidocaine (Lidoderm Patch -) 2 patch TP DAILY [facility] Last Admin: 09/08/17 10:35 Dose: 2 patch Meclizine HCl (Antivert -) 12.5 mg PO BID [facility] Last Admin: 09/08/17 10:40 Dose: 12.5 mg Methylprednisolone Sodium Succinate (Solu-Medrol -) 40 mg IVPUSH Q12H [facility] Last Admin: 09/08/17 10:48 Dose: 40 mg Miscellaneous (Lidoderm Patch Removal) 1 each MC DAILY@2200 [facility] Last Admin: 09/07/17 21:47 Dose: 1 each Nifedipine (Procardia Xl -) 30 mg PO DAILY [facility] Last Admin: 09/08/17 10:40 Dose: 30 mg Cyclosporine [ Restasis] 0.05% Eye Drops 1 each OU BID [facility] Last Admin: 09/08/17 10:40 Dose: 1 each Nystatin (Nystop Powder -) 1 applic TP BID [facility] Last Admin: 09/08/17 10:40 Dose: 1 applic Nystatin (Nystatin Oral Suspension -) 500,000 units PO TID [facility] Last Admin: 09/08/17 14:22 Dose: 500,000 units Pantoprazole Sodium (Protonix -) 40 mg PO DAILY [facility] Last Admin: 09/08/17 10:35 Dose: 40 mg Polyethylene Glycol (Miralax (For Daily Use) -) 17 gm PO DAILY [facility] Last Admin: 09/08/17 11:25 Dose: Not Given Rosuvastatin Calcium (Crestor -) 10 mg PO HS [facility] Last Admin: 09/07/17 21:47 Dose: 10 mg Senna (Senna -) 1 tab PO BID [facility] Last Admin: 09/08/17 10:35 Dose: 1 tab Sodium Chloride ([place] Nasal [place] -) 2 spray NS BID [facility] Last Admin: 09/08/17 10:40 Dose: Not Given Valsartan (Diovan -) 160 mg PO DAILY [facility] Last Admin: 09/08/17 10:40 Dose: 160 mg Warfarin Sodium (Coumadin -) 4 mg PO DAILY@1800 [facility] Last Admin: 09/08/17 02:55 Dose: 4 mg - Objective Vital Signs: Vital Signs Temperature 99.0 F 09/08/17 15:32 Pulse Rate 96 H 09/08/17 15:32 Respiratory Rate 22 09/08/17 15:32 Blood Pressure 144/68 09/08/17 15:32 O2 Sat by Pulse Oximetry (%) 96 09/08/17 11:18 Constitutional: Yes: No Distress, Calm Cardiovascular: Yes: Regular Rate and Rhythm Respiratory: Yes: Regular, CTA Bilaterally, Poor Air Entry Gastrointestinal: Yes: Normal Bowel Sounds, Soft Musculoskeletal: Yes: WNL Extremities: Yes: WNL Neurological: Yes: Alert, Oriented Psychiatric: Yes: Alert Labs: CBC, BMP 09/08/17 06:35 09/08/17 06:35 INR, PTT INR 1.83 (0.82-1.09) H 09/08/17 06:35 Assessment/Plan Problem List - Problems (1) SOB (shortness of breath) Code(s): R06.02 - SHORTNESS OF BREATH (2) Acute on chronic respiratory failure with hypoxia and hypercapnia Code(s): J96.21 - ACUTE AND CHRONIC RESPIRATORY FAILURE WITH HYPOXIA J96.22 - ACUTE AND CHRONIC RESPIRATORY FAILURE WITH HYPERCAPNIA (3) Anemia Code(s): D64.9 - ANEMIA, UNSPECIFIED (4) CHF (congestive heart failure) Code(s): I50.9 - HEART FAILURE, UNSPECIFIED (5) COPD exacerbation Code(s): J44.1 - CHRONIC OBSTRUCTIVE PULMONARY DISEASE W (ACUTE) EXACERBATION (6) Chronic diastolic (congestive) heart failure Code(s): I50.32 - CHRONIC DIASTOLIC (CONGESTIVE) HEART FAILURE (7) Coronary artery disease Code(s): I25.10 - ATHSCL HEART DISEASE OF [place] CORONARY ARTERY W/O ANG PCTRS (8) History of pulmonary embolism Code(s): Z86.711 - PERSONAL HISTORY OF PULMONARY EMBOLISM (9) Morbid obesity Code(s): E66.01 - MORBID (SEVERE) OBESITY DUE TO EXCESS CALORIES (10) Pulmonary hypertension Code(s): I27.2 - OTHER SECONDARY PULMONARY HYPERTENSION * DO NOT USE * plan continue to monitor off of abx patient receiving iron transfusion continue current mgmt rest as per primary resp support monitor o2 sat
[2017-09-08 16:27] LABS: Hgb A2 7.3 % (0.7-3.1)
--- NOTE | 2017-09-08 21:30 | PN ---
Progress Note, Physician History of Present Illness: Pt w/ hypoxia and increased SOB today Pt now on ventimask - Current Medication List Current Medications: Active Medications Acetaminophen (Tylenol -) 1,000 mg PO Q8H PRN PRN Reason: PAIN Albuterol Sulfate (Ventolin 0.083% Nebulizer Soln -) 1 amp NEB Q4H PRN PRN Reason: SHORT OF BREATH/WHEEZING Albuterol/Ipratropium (Duoneb -) 1 amp NEB QIDR [facility] Last Admin: 09/08/17 18:28 Dose: 1 amp Aspirin (Asa -) 81 mg PO DAILY [facility] Last Admin: 09/08/17 10:40 Dose: 81 mg Budesonide/Formoterol Fumarate (Symbicort 160/4.5mcg -) 1 puff IH BID [facility] Last Admin: 09/08/17 10:40 Dose: 1 puff Cholecalciferol (Vitamin D3 -) 2,000 unit PO DAILY [facility] Last Admin: 09/08/17 10:49 Dose: 2,000 unit Ferrous Sulfate (Feosol -) 325 mg PO TIDCM [facility] Last Admin: 09/08/17 18:07 Dose: 325 mg Furosemide (Lasix -) 40 mg PO BID@0600,1400 [facility] Last Admin: 09/08/17 14:22 Dose: 40 mg Furosemide (Lasix Injection -) 20 mg IVPUSH ONCE PRN PRN Reason: SHORTNESS OF BREATH Last Admin: 09/05/17 22:23 Dose: 20 mg Insulin Aspart (Novolog Vial Sliding Scale -) 1 vial SQ ACHS [facility] PRN Reason: Protocol Last Admin: 09/08/17 18:06 Dose: 8 units Lidocaine (Lidoderm Patch -) 2 patch TP DAILY [facility] Last Admin: 09/08/17 10:35 Dose: 2 patch Meclizine HCl (Antivert -) 12.5 mg PO BID [facility] Last Admin: 09/08/17 10:40 Dose: 12.5 mg Methylprednisolone Sodium Succinate (Solu-Medrol -) 40 mg IVPUSH Q12H [facility] Last Admin: 09/08/17 10:48 Dose: 40 mg Miscellaneous (Lidoderm Patch Removal) 1 each MC DAILY@2200 [facility] Last Admin: 09/07/17 21:47 Dose: 1 each Nifedipine (Procardia Xl -) 30 mg PO DAILY [facility] Last Admin: 09/08/17 10:40 Dose: 30 mg Cyclosporine [ Restasis] 0.05% Eye Drops 1 each OU BID [facility] Last Admin: 09/08/17 10:40 Dose: 1 each Nystatin (Nystop Powder -) 1 applic TP BID [facility] Last Admin: 09/08/17 10:40 Dose: 1 applic Nystatin (Nystatin Oral Suspension -) 500,000 units PO TID [facility] Last Admin: 09/08/17 14:22 Dose: 500,000 units Pantoprazole Sodium (Protonix -) 40 mg PO DAILY [facility] Last Admin: 09/08/17 10:35 Dose: 40 mg Polyethylene Glycol (Miralax (For Daily Use) -) 17 gm PO DAILY [facility] Last Admin: 09/08/17 11:25 Dose: Not Given Rosuvastatin Calcium (Crestor -) 10 mg PO HS [facility] Last Admin: 09/07/17 21:47 Dose: 10 mg Senna (Senna -) 1 tab PO BID [facility] Last Admin: 09/08/17 10:35 Dose: 1 tab Sodium Chloride ([place] Nasal [place] -) 2 spray NS BID [facility] Last Admin: 09/08/17 10:40 Dose: Not Given Valsartan (Diovan -) 160 mg PO DAILY [facility] Last Admin: 09/08/17 10:40 Dose: 160 mg Warfarin Sodium (Coumadin -) 4 mg PO DAILY@1800 [facility] Last Admin: 09/08/17 18:06 Dose: 4 mg - Objective Vital Signs: Vital Signs Temperature 98.3 F 09/08/17 18:39 Pulse Rate 100 H 09/08/17 18:39 Respiratory Rate 22 09/08/17 18:39 Blood Pressure 147/72 09/08/17 18:39 O2 Sat by Pulse Oximetry (%) 96 09/08/17 11:18 Constitutional: Yes: Well Nourished HENT: Yes: WNL Neck: Yes: WNL, Supple Cardiovascular: Yes: WNL, Regular Rate and Rhythm Respiratory: Yes: Wheezes Gastrointestinal: Yes: WNL, Normal Bowel Sounds, Soft, Abdomen, Obese Edema: LLE: Trace, RLE: Trace Labs: CBC, BMP 09/08/17 06:35 09/08/17 06:35 INR, PTT INR 1.83 (0.82-1.09) H 09/08/17 06:35 Problem List - Problems (1) COPD exacerbation Assessment/Plan: Cont IV solumedrol Cont nebulizers/spiriva/symbicort Pt now on ventimask Check cxr in am Code(s): J44.1 - CHRONIC OBSTRUCTIVE PULMONARY DISEASE W (ACUTE) EXACERBATION (2) Chronic diastolic (congestive) heart failure Assessment/Plan: Pt given extra dose of IV lasix this am Monitor electrolytes Code(s): I50.32 - CHRONIC DIASTOLIC (CONGESTIVE) HEART FAILURE (3) History of pulmonary embolism Assessment/Plan: Monitor PT/inr Cont coumadin Code(s): Z86.711 - PERSONAL HISTORY OF PULMONARY EMBOLISM (4) Hypertension Assessment/Plan: BP stable Cont procardia/diovan Code(s): I10 - ESSENTIAL (PRIMARY) HYPERTENSION (5) Coronary artery disease Code(s): I25.10 - ATHSCL HEART DISEASE OF [place] CORONARY ARTERY W/O ANG PCTRS (6) HLD (hyperlipidemia) Code(s): E78.5 - HYPERLIPIDEMIA, UNSPECIFIED (7) Hemorrhoid Code(s): K64.9 - UNSPECIFIED HEMORRHOIDS (8) Conjunctival hemorrhage of right eye Code(s): H11.31 - CONJUNCTIVAL HEMORRHAGE, RIGHT EYE (9) Morbid obesity Code(s): E66.01 - MORBID (SEVERE) OBESITY DUE TO EXCESS CALORIES (10) Pulmonary embolus Code(s): I26.99 - OTHER PULMONARY EMBOLISM WITHOUT ACUTE COR PULMONALE (11) DVT (deep venous thrombosis) Code(s): I82.409 - ACUTE EMBOLISM AND THOMBOS UNSP DEEP VN UNSP LOWER EXTREMITY
[2017-09-08] MEDS: LIDOCAINE PATCH REMOVAL MC SCH (22:31)
[2017-09-08] MEDS: ROSUVASTATIN CA 10 MG TABLET (FP) PO SCH (22:31)
[2017-09-09] MEDS: ALBUTEROL SO4 2.5/IPRATROPIUM 0.5 INH SOL 3 ML VIAL.NEB. NEB SCH ×2 (06:04→11:20)
[2017-09-09] MEDS: FUROSEMIDE 40 MG TABLET (FP) PO SCH ×2 (06:18→14:39)
[2017-09-09] MEDS: NYSTATIN 500,000 UNITS/5 ML SUSPENSION PO SCH ×3 (06:18→21:51)
[2017-09-09] MEDS: INSULIN SLIDING SCALE (NOVOLOG) 1 VIAL SQ SCH ×4 (06:18→21:52)
[2017-09-09 08:16] LABS: BASOPHIL 0.6 % (0-2.0); MCH 22.7 pg (25.7-33.7); MCHC 28.6 g/dl (32.0-36.0); MEAN CELL VOLUME 79.4 fl (80-96); MEAN PLT VOLUME 8.8 fl (7.5-11.1); NEUTROPHILS 90.3 % (42.8-82.8); PLATELET COUNT 143 K/MM3 (134-434); RDW 16.6 % (11.6-15.6); WHITE BLOOD COUNT 18.5 K/mm3 (4.0-10.0)
[2017-09-09 08:33] LABS: INR 2.92 (0.82-1.09)
--- NOTE | 2017-09-09 08:39 | PN ---
Progress Note, Physician Chief Complaint: no acute distress Says her breathing is no worse - Current Medication List Current Medications: Active Medications Acetaminophen (Tylenol -) 1,000 mg PO Q8H PRN PRN Reason: PAIN Albuterol Sulfate (Ventolin 0.083% Nebulizer Soln -) 1 amp NEB Q4H PRN PRN Reason: SHORT OF BREATH/WHEEZING Albuterol/Ipratropium (Duoneb -) 1 amp NEB QIDR [facility] Last Admin: 09/09/17 06:04 Dose: 1 amp Aspirin (Asa -) 81 mg PO DAILY [facility] Last Admin: 09/08/17 10:40 Dose: 81 mg Budesonide/Formoterol Fumarate (Symbicort 160/4.5mcg -) 1 puff IH BID [facility] Last Admin: 09/08/17 22:29 Dose: 1 puff Cholecalciferol (Vitamin D3 -) 2,000 unit PO DAILY [facility] Last Admin: 09/08/17 10:49 Dose: 2,000 unit Ferrous Sulfate (Feosol -) 325 mg PO TIDCM [facility] Last Admin: 09/08/17 18:07 Dose: 325 mg Furosemide (Lasix -) 40 mg PO BID@0600,1400 [facility] Last Admin: 09/09/17 06:18 Dose: 40 mg Furosemide (Lasix Injection -) 20 mg IVPUSH ONCE PRN PRN Reason: SHORTNESS OF BREATH Last Admin: 09/05/17 22:23 Dose: 20 mg Insulin Aspart (Novolog Vial Sliding Scale -) 1 vial SQ ACHS [facility] PRN Reason: Protocol Last Admin: 09/09/17 06:18 Dose: 6 units Lidocaine (Lidoderm Patch -) 2 patch TP DAILY [facility] Last Admin: 09/08/17 10:35 Dose: 2 patch Meclizine HCl (Antivert -) 12.5 mg PO BID [facility] Last Admin: 09/08/17 22:30 Dose: 12.5 mg Methylprednisolone Sodium Succinate (Solu-Medrol -) 40 mg IVPUSH Q12H [facility] Last Admin: 09/08/17 22:30 Dose: 40 mg Miscellaneous (Lidoderm Patch Removal) 1 each MC DAILY@2200 [facility] Last Admin: 09/08/17 22:31 Dose: 1 each Nifedipine (Procardia Xl -) 30 mg PO DAILY [facility] Last Admin: 11/14/17 10:40 Dose: 30 mg Cyclosporine [ Restasis] 0.05% Eye Drops 1 each OU BID [facility] Last Admin: 09/08/17 22:40 Dose: 1 each Nystatin (Nystop Powder -) 1 applic TP BID [facility] Last Admin: 09/08/17 22:32 Dose: 1 applic Nystatin (Nystatin Oral Suspension -) 500,000 units PO TID [facility] Last Admin: 09/09/17 06:18 Dose: 500,000 units Pantoprazole Sodium (Protonix -) 40 mg PO DAILY [facility] Last Admin: 09/08/17 10:35 Dose: 40 mg Polyethylene Glycol (Miralax (For Daily Use) -) 17 gm PO DAILY [facility] Last Admin: 09/08/17 11:25 Dose: Not Given Rosuvastatin Calcium (Crestor -) 10 mg PO HS [facility] Last Admin: 09/08/17 22:31 Dose: 10 mg Senna (Senna -) 1 tab PO BID [facility] Last Admin: 09/08/17 22:30 Dose: 1 tab Sodium Chloride ([place] Nasal [place] -) 2 spray NS BID [facility] Last Admin: 09/08/17 22:32 Dose: Not Given Valsartan (Diovan -) 160 mg PO DAILY [facility] Last Admin: 09/08/17 10:40 Dose: 160 mg Warfarin Sodium (Coumadin -) 4 mg PO DAILY@1800 [facility] Last Admin: 09/08/17 18:06 Dose: 4 mg - Objective Vital Signs: Vital Signs Temperature 99.1 F 09/09/17 06:24 Pulse Rate 108 H 09/09/17 06:24 Respiratory Rate 20 09/09/17 06:24 Blood Pressure 150/78 09/09/17 06:24 O2 Sat by Pulse Oximetry (%) 96 09/08/17 21:00 Constitutional: Yes: Calm Cardiovascular: Yes: Regular Rate and Rhythm Respiratory: Yes: Other (bilateral decreased breath sounds without wheezing) Gastrointestinal: Yes: Soft, Abdomen, Obese Edema: No Neurological: Yes: Alert, Oriented Labs: CBC, BMP 09/09/17 06:50 INR, PTT INR 1.83 (0.82-1.09) H 09/08/17 06:35 Laboratory Tests 09/08/17 09/09/17 09/09/17 06:35 06:50 06:50 WBC 18.5 H Hgb 8.5 L Hct 29.8 L Plt Count 143 INR 1.83 H Pending Sodium Potassium BUN Creatinine 09/09/17 06:50 WBC Hgb Hct Plt Count INR Sodium Pending Potassium Pending BUN Pending Creatinine Pending Assessment/Plan Assessment/Plan AECOPD Acute on chronic diastolic CHF, mild exacerbation- improved. History of PE on coumadin REC Continue nebs, supp. O2 and steroid taper as per Pulmonary. Coumadin for INR 2-3; watch hematoma on right arm-- superficial. Check stool guaiac, assure H/H not from occult GI source.
[2017-09-09 08:54] LABS: ALBUMIN 3.3 g/dl (3.4-5.0); ANION GAP 6 (8-16); BILIRUBIN,TOTAL 0.8 mg/dL (0.2-1.0); CALCIUM 8.8 mg/dL (8.5-10.1); CO2 43 mmol/L (21-32); CREATININE 1.3 mg/dL (0.55-1.02); GLUCOSE,RANDOM 207 mg/dL (74-106); SGOT/AST 22 U/L (15-37); SGPT/ALT 44 U/L (12-78); TOT PROT 5.6 g/dl (6.4-8.2)
[2017-09-09 08:55] LABS: ALK PHOS 55 U/L (45-117)
[2017-09-09] MEDS: FERROUS SO4 325 MG TABLET (FP) PO SCH ×3 (09:00→17:16)
[2017-09-09] MEDS ORDERED: PT OWN MED DRAWER 7, Y5N ONE ×2 (09:06→12:49)
[2017-09-09] MEDS: BUDESONIDE/FORMETEROL FUMARATE 160/4.5 mcg INHALER IH SCH ×2 (09:36→21:51)
[2017-09-09] MEDS: PANTOPRAZOLE 40 MG TABLET (FP) PO SCH (09:36)
[2017-09-09] MEDS: SENNOSIDES 8.6MG TABLET (FP) PO SCH ×2 (09:36→21:51)
[2017-09-09] MEDS: ASPIRIN 81 MG CHEWABLE TABLETS PO SCH (09:36)
[2017-09-09] MEDS: MECLIZINE HCL 12.5 MG TABLET PO SCH ×2 (09:36→21:51)
[2017-09-09] MEDS: NIFEdipine E.R. 30 MG TABLET (FP) PO SCH (09:36)
[2017-09-09] MEDS: VALSARTAN 160 MG TABLET (UD) PO SCH (09:36)
[2017-09-09] MEDS: LIDOCAINE 5% TOPICAL PATCH TP SCH (09:36)
[2017-09-09] MEDS: CHOLECALCIFEROL (VITAMIN D3) 1,000 UNIT TABLET (FP) PO SCH (09:36)
[2017-09-09] MEDS: POLYETHYLENE GLYCOL 3350 119 GM BTL PO SCH (09:40)
[2017-09-09] MEDS: NYSTATIN POWDER 100,000 UNITS/GM - 15 GM TOPICAL POWDER TP SCH ×2 (10:06→21:52)
[2017-09-09] MEDS: PHENYLEPH/MINERAL OIL/PETROLAT 28 GM OINTMENT RC SCH ×2 (10:11→21:51)
[2017-09-09] MEDS: SODIUM CHLORIDE NASAL SPRAY 44 ML BOTTLE NS SCH ×2 (10:12→21:52)
[2017-09-09] MEDS: methylPREDNISolone NA SUCC 40 MG/1 ML VIAL IVPUSH SCH ×4 (10:57→21:51)
[2017-09-09] MEDS ORDERED: INSULIN (NOVOLOG) ASPART 100 UNITS/ML 10ML VIAL ONE ×2 (11:28→21:30)
--- NOTE | 2017-09-09 12:06 | PN ---
Progress Note, Physician History of Present Illness: stable events noted says she is better - Current Medication List Current Medications: Active Medications Acetaminophen (Tylenol -) 1,000 mg PO Q8H PRN PRN Reason: PAIN Albuterol Sulfate (Ventolin 0.083% Nebulizer Soln -) 1 amp NEB Q4H PRN PRN Reason: SHORT OF BREATH/WHEEZING Albuterol/Ipratropium (Duoneb -) 1 amp NEB QIDR [facility] Last Admin: 09/09/17 11:20 Dose: 1 amp Aspirin (Asa -) 81 mg PO DAILY [facility] Last Admin: 09/09/17 09:36 Dose: 81 mg Budesonide/Formoterol Fumarate (Symbicort 160/4.5mcg -) 1 puff IH BID [facility] Last Admin: 09/09/17 09:36 Dose: 1 puff Cholecalciferol (Vitamin D3 -) 2,000 unit PO DAILY [facility] Last Admin: 09/09/17 09:36 Dose: 2,000 unit Ferrous Sulfate (Feosol -) 325 mg PO TIDCM [facility] Last Admin: 09/09/17 09:00 Dose: 325 mg Furosemide (Lasix -) 40 mg PO BID@0600,1400 [facility] Last Admin: 09/09/17 06:18 Dose: 40 mg Furosemide (Lasix Injection -) 20 mg IVPUSH ONCE PRN PRN Reason: SHORTNESS OF BREATH Last Admin: 09/05/17 22:23 Dose: 20 mg Insulin Aspart (Novolog Vial Sliding Scale -) 1 vial SQ ACHS [facility] PRN Reason: Protocol Last Admin: 09/09/17 11:29 Dose: 2 units Lidocaine (Lidoderm Patch -) 2 patch TP DAILY [facility] Last Admin: 09/09/17 09:36 Dose: 2 patch Meclizine HCl (Antivert -) 12.5 mg PO BID [facility] Last Admin: 09/09/17 09:36 Dose: 12.5 mg Methylprednisolone Sodium Succinate (Solu-Medrol -) 40 mg IVPUSH Q12H [facility] Last Admin: 09/09/17 11:01 Dose: Not Given Miscellaneous (Lidoderm Patch Removal) 1 each MC DAILY@2200 [facility] Last Admin: 09/08/17 22:31 Dose: 1 each Nifedipine (Procardia Xl -) 30 mg PO DAILY [facility] Last Admin: 11/15/17 09:36 Dose: 30 mg Cyclosporine [ Restasis] 0.05% Eye Drops 1 each OU BID [facility] Last Admin: 09/09/17 10:12 Dose: 1 each Nystatin (Nystop Powder -) 1 applic TP BID [facility] Last Admin: 09/09/17 10:06 Dose: 1 applic Nystatin (Nystatin Oral Suspension -) 500,000 units PO TID [facility] Last Admin: 09/09/17 06:18 Dose: 500,000 units Pantoprazole Sodium (Protonix -) 40 mg PO DAILY [facility] Last Admin: 09/09/17 09:36 Dose: 40 mg Polyethylene Glycol (Miralax (For Daily Use) -) 17 gm PO DAILY [facility] Last Admin: 09/09/17 09:40 Dose: Not Given Rosuvastatin Calcium (Crestor -) 10 mg PO HS [facility] Last Admin: 09/08/17 22:31 Dose: 10 mg Senna (Senna -) 1 tab PO BID [facility] Last Admin: 09/09/17 09:36 Dose: 1 tab Sodium Chloride ([place] Nasal [place] -) 2 spray NS BID [facility] Last Admin: 09/09/17 10:12 Dose: Not Given Valsartan (Diovan -) 160 mg PO DAILY [facility] Last Admin: 09/09/17 09:36 Dose: 160 mg Warfarin Sodium (Coumadin -) 4 mg PO DAILY@1800 [facility] Last Admin: 09/08/17 18:06 Dose: 4 mg - Objective Vital Signs: Vital Signs Temperature 99.1 F 09/09/17 06:24 Pulse Rate 102 H 09/09/17 11:25 Respiratory Rate 24 09/09/17 09:18 Blood Pressure 150/62 09/09/17 09:18 O2 Sat by Pulse Oximetry (%) 93 L 09/09/17 11:25 Constitutional: Yes: No Distress, Calm Cardiovascular: Yes: S1, S2 Respiratory: Yes: Regular, On Nasal O2 Gastrointestinal: Yes: Normal Bowel Sounds, Soft Musculoskeletal: Yes: Other Extremities: Yes: Other Neurological: Yes: Alert, Oriented Psychiatric: Yes: Alert, Oriented Labs: CBC, BMP 09/09/17 06:50 09/09/17 06:50 INR, PTT INR 2.92 (0.82-1.09) H D 09/09/17 06:50 Assessment/Plan Problem List - Problems (1) SOB (shortness of breath) Code(s): R06.02 - SHORTNESS OF BREATH (2) Acute on chronic respiratory failure with hypoxia and hypercapnia Code(s): J96.21 - ACUTE AND CHRONIC RESPIRATORY FAILURE WITH HYPOXIA J96.22 - ACUTE AND CHRONIC RESPIRATORY FAILURE WITH HYPERCAPNIA (3) Anemia Code(s): D64.9 - ANEMIA, UNSPECIFIED (4) CHF (congestive heart failure) Code(s): I50.9 - HEART FAILURE, UNSPECIFIED (5) COPD exacerbation Code(s): J44.1 - CHRONIC OBSTRUCTIVE PULMONARY DISEASE W (ACUTE) EXACERBATION (6) Chronic diastolic (congestive) heart failure Code(s): I50.32 - CHRONIC DIASTOLIC (CONGESTIVE) HEART FAILURE (7) Coronary artery disease Code(s): I25.10 - ATHSCL HEART DISEASE OF [place] CORONARY ARTERY W/O ANG PCTRS (8) History of pulmonary embolism Code(s): Z86.711 - PERSONAL HISTORY OF PULMONARY EMBOLISM (9) Morbid obesity Code(s): E66.01 - MORBID (SEVERE) OBESITY DUE TO EXCESS CALORIES (10) Pulmonary hypertension Code(s): I27.2 - OTHER SECONDARY PULMONARY HYPERTENSION * DO NOT USE * plan better today continue to monitor resp supprt rest as per primary team
--- NOTE | 2017-09-09 13:19 | PN ---
Progress Note (short form) - Note Progress Note: PULMONARY SITTING UP IN BED CONGESTED COUGH FAMILY PRESENT VSS/AFEBRILE ANICTERIC SCATTERED B/L RHONCHI/EXP WHEEZE S1S2 BS+ OBESE NO ANKLE EDEMA LABS/MEDS/NOTES/IMAGING REVIEWED IMP ACUTE ON CHRONIC HYPOXEMIC/HYPERCAPNEIC RESPIRATORY FAILURE END STAGE COPD O2 DEPENDENT WITH ACUTE EXACERBATION URI DIASTOLIC HF PULMONARY HTN H/O RECURRENT PULMONARY EMBOLI HTN MORBID OBESITY ANEMIA S/P TRANSFUSION PLAN IV STEROIDS SUPPLEMENTAL O2 VIA VM INHALED BRONCHODILATORS NIPPV NEEDED DIURETICS MONITOR H+H TRANSFUSE NEEDED Danny ROMERO MD
--- NOTE | 2017-09-09 15:31 | PN ---
Progress Note (short form) - Note Progress Note: Seen and examined Has +cough New redness of the right eye O/E: Morbid obseity On O2. HEENT: [place], EOM Intact Cor: RSR, No murmurs, No gallops Lungs: Clear to P&A.scattered rhonchi Abd: Soft, Normal bowel sounds, No organomegaly Ext:chronic edema eye: redness noted in the rt eye Temp Pulse Resp BP Pulse Ox 98.2 F 97 H 20 150/78 95 09/08/17 06:00 09/08/17 06:00 09/08/17 06:00 09/08/17 06:00 09/07/17 21:00 CBC, BMP 09/08/17 06:35 09/08/17 06:35 Current Medications Generic Name Dose Route Start Last Admin Trade Name Freq PRN Reason Stop Dose Admin Acetaminophen 1,000 mg 09/06/17 14:52 Tylenol - PO Q8H PRN PAIN Albuterol Sulfate 1 amp 09/05/17 13:08 Ventolin 0.083% Nebulizer Soln - NEB Q4H PRN SHORT OF BREATH/WHEEZING Albuterol/Ipratropium 1 amp 09/04/17 18:00 09/08/17 06:19 Duoneb - NEB 1 amp QIDR [facility] Administration Aspirin 81 mg 08/21/17 10:00 09/08/17 10:40 Asa - PO 81 mg DAILY [facility] Administration Budesonide/Formoterol Fumarate 1 puff 08/21/17 10:00 09/08/17 10:40 Symbicort 160/4.5mcg - IH 1 puff BID [facility] Administration Cholecalciferol 2,000 unit 08/21/17 10:00 09/08/17 10:49 Vitamin D3 - PO 2,000 unit DAILY [facility] Administration Ferrous Sulfate 325 mg 08/24/17 20:00 09/08/17 10:34 Feosol - PO 325 mg TIDCM [facility] Administration Furosemide 40 mg 09/01/17 14:00 09/08/17 06:40 Lasix - PO 40 mg BID@0600,1400 [facility] Administration Furosemide 20 mg 09/05/17 12:16 09/05/17 22:23 Lasix Injection - IVPUSH 20 mg ONCE PRN Administration SHORTNESS OF BREATH Insulin Aspart 1 vial 08/21/17 07:00 09/08/17 06:40 Novolog Vial Sliding Scale - SQ 2 units ACHS [facility] Administration Protocol Lidocaine 2 patch 09/06/17 14:53 09/08/17 10:35 Lidoderm Patch - TP 2 patch DAILY [facility] Administration Meclizine HCl 12.5 mg 08/21/17 10:00 09/08/17 10:40 Antivert - PO 12.5 mg BID [facility] Administration Methylprednisolone Sodium Succinate 40 mg 09/03/17 10:45 09/08/17 10:48 Solu-Medrol - IVPUSH 40 mg Q12H [facility] Administration Miscellaneous 1 each 09/04/17 22:00 09/07/17 21:47 Lidoderm Patch Removal MC 1 each DAILY@2200 [facility] Administration Nifedipine 30 mg 08/21/17 10:00 09/08/17 10:40 Procardia Xl - PO 30 mg DAILY [facility] Administration Cyclosporine [ 1 each 08/29/17 22:00 09/08/17 10:40 Restasis] 0.05% Eye OU 1 each Drops BID [facility] Administration Nystatin 1 applic 08/21/17 22:00 09/08/17 10:40 Nystop Powder - TP 1 applic BID [facility] Administration Nystatin 500,000 units 08/26/17 22:00 09/08/17 06:40 Nystatin Oral Suspension - PO 500,000 units TID [facility] Administration Pantoprazole Sodium 40 mg 08/21/17 10:00 09/08/17 10:35 Protonix - PO 40 mg DAILY [facility] Administration Polyethylene Glycol 17 gm 09/03/17 04:00 09/07/17 11:26 Miralax (For Daily Use) - PO 17 grams DAILY [facility] Administration Rosuvastatin Calcium 10 mg 08/21/17 22:00 09/07/17 21:47 Crestor - PO 10 mg HS [facility] Administration Senna 1 tab 08/23/17 22:00 09/08/17 10:35 Senna - PO 1 tab BID [facility] Administration Sodium Chloride 2 spray 08/27/17 22:00 09/08/17 10:40 [place] Nasal [place] - NS Not Given BID [facility] Valsartan 160 mg 08/21/17 10:00 09/08/17 10:40 Diovan - PO 160 mg DAILY [facility] Administration Warfarin Sodium 4 mg 09/08/17 02:00 09/08/17 02:55 Coumadin - PO 4 mg DAILY@1800 [facility] Administration anemia leucocytoiss PE End stage COPD New subconjunctival haemorrhage Rt arm hematoma dCHF Pulmonary HTN ( 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 -Today with new subconjunctival hge, pt with coughing ( she says has happened in the past). She has mild pain. If pain worsens, or if any swelling develops, will need CT orbit non-contrast. -Will consult Ophthal, hold coumadin for today and repeat INR in the am -resume couamdin, likely tomorrow, if continues to be stable. -hematoma on the RUE, compressors recommended. will continue to monitor. stable to slightly smaller than yesterday. -continues to be on IV steroids -COPD/dCHF as per Pulm and Cardiology d/w BRUCE
[2017-09-09] MEDS: ALBUTEROL SO4 0.083% IH SOL 2.5 MG/3 ML VIAL.NEB. NEB PRN ×2 (17:30→22:40)
[2017-09-09] MEDS: ROSUVASTATIN CA 10 MG TABLET (FP) PO SCH (21:51)
[2017-09-09] MEDS: LIDOCAINE PATCH REMOVAL MC SCH (21:52)
--- NOTE | 2017-09-09 22:30 | PN ---
Progress Note, Physician History of Present Illness: Pt concerned about not improving - Current Medication List Current Medications: Active Medications Acetaminophen (Tylenol -) 1,000 mg PO Q8H PRN PRN Reason: PAIN Albuterol Sulfate (Ventolin 0.083% Nebulizer Soln -) 1 amp NEB Q4H PRN PRN Reason: SHORT OF BREATH/WHEEZING Last Admin: 09/09/17 17:30 Dose: 1 amp Aspirin (Asa -) 81 mg PO DAILY [facility] Last Admin: 09/09/17 09:36 Dose: 81 mg Budesonide/Formoterol Fumarate (Symbicort 160/4.5mcg -) 1 puff IH BID [facility] Last Admin: 09/09/17 21:51 Dose: 1 puff Cholecalciferol (Vitamin D3 -) 2,000 unit PO DAILY [facility] Last Admin: 09/09/17 09:36 Dose: 2,000 unit Ferrous Sulfate (Feosol -) 325 mg PO TIDCM [facility] Last Admin: 09/09/17 17:16 Dose: 325 mg Furosemide (Lasix -) 40 mg PO BID@0600,1400 [facility] Last Admin: 09/09/17 14:39 Dose: 40 mg Furosemide (Lasix Injection -) 20 mg IVPUSH ONCE PRN PRN Reason: SHORTNESS OF BREATH Last Admin: 09/05/17 22:23 Dose: 20 mg Insulin Aspart (Novolog Vial Sliding Scale -) 1 vial SQ ACHS [facility] PRN Reason: Protocol Last Admin: 09/09/17 21:52 Dose: 8 units Lidocaine (Lidoderm Patch -) 2 patch TP DAILY [facility] Last Admin: 09/09/17 09:36 Dose: 2 patch Meclizine HCl (Antivert -) 12.5 mg PO BID [facility] Last Admin: 09/09/17 21:51 Dose: 12.5 mg Methylprednisolone Sodium Succinate (Solu-Medrol -) 40 mg IVPUSH Q12H [facility] Last Admin: 09/09/17 21:51 Dose: 40 mg Miscellaneous (Lidoderm Patch Removal) 1 each MC DAILY@2200 [facility] Last Admin: 09/09/17 21:52 Dose: 1 each Nifedipine (Procardia Xl -) 30 mg PO DAILY [facility] Last Admin: 09/09/17 09:36 Dose: 30 mg Cyclosporine [ Restasis] 0.05% Eye Drops 1 each OU BID [facility] Last Admin: 09/09/17 21:52 Dose: 1 each Nystatin (Nystop Powder -) 1 applic TP BID [facility] Last Admin: 09/09/17 21:52 Dose: 1 applic Nystatin (Nystatin Oral Suspension -) 500,000 units PO TID [facility] Last Admin: 09/09/17 21:51 Dose: 500,000 units Pantoprazole Sodium (Protonix -) 40 mg PO DAILY [facility] Last Admin: 09/09/17 09:36 Dose: 40 mg Polyethylene Glycol (Miralax (For Daily Use) -) 17 gm PO DAILY [facility] Last Admin: 09/09/17 09:40 Dose: Not Given Rosuvastatin Calcium (Crestor -) 10 mg PO HS [facility] Last Admin: 09/09/17 21:51 Dose: 10 mg Senna (Senna -) 1 tab PO BID [facility] Last Admin: 09/09/17 21:51 Dose: 1 tab Sodium Chloride ([place] Nasal [place] -) 2 spray NS BID [facility] Last Admin: 09/09/17 21:52 Dose: Not Given Valsartan (Diovan -) 160 mg PO DAILY [facility] Last Admin: 09/09/17 09:36 Dose: 160 mg Warfarin Sodium (Coumadin -) 4 mg PO DAILY@1800 [facility] Last Admin: 09/08/17 18:06 Dose: 4 mg - Objective Vital Signs: Vital Signs Temperature 99.2 F 09/09/17 14:21 Pulse Rate 107 H 09/09/17 14:21 Respiratory Rate 20 09/09/17 14:21 Blood Pressure 123/73 09/09/17 14:21 O2 Sat by Pulse Oximetry (%) 93 L 09/09/17 11:25 Constitutional: Yes: Well Nourished HENT: Yes: WNL Neck: Yes: WNL, Supple Cardiovascular: Yes: WNL, Regular Rate and Rhythm Respiratory: Yes: Wheezes Gastrointestinal: Yes: WNL, Normal Bowel Sounds, Soft, Abdomen, Obese Edema: No Labs: CBC, BMP 09/09/17 06:50 09/09/17 06:50 INR, PTT INR 2.92 (0.82-1.09) H D 09/09/17 06:50 Problem List - Problems (1) COPD exacerbation Assessment/Plan: Cont current dose of IV steroid Cont nebulizers/spiriva/symbicort Ventimask prn Code(s): J44.1 - CHRONIC OBSTRUCTIVE PULMONARY DISEASE W (ACUTE) EXACERBATION (2) Chronic diastolic (congestive) heart failure Assessment/Plan: Cont lasix Monitor electrolytes Code(s): I50.32 - CHRONIC DIASTOLIC (CONGESTIVE) HEART FAILURE (3) History of pulmonary embolism Assessment/Plan: Monitor PT/inr Adjust coumadin dose accordingly Code(s): Z86.711 - PERSONAL HISTORY OF PULMONARY EMBOLISM (4) Hypertension Assessment/Plan: BP stable Cont procardia/diovan Code(s): I10 - ESSENTIAL (PRIMARY) HYPERTENSION (5) Coronary artery disease Code(s): I25.10 - ATHSCL HEART DISEASE OF [place] CORONARY ARTERY W/O ANG PCTRS (6) HLD (hyperlipidemia) Code(s): E78.5 - HYPERLIPIDEMIA, UNSPECIFIED (7) Hemorrhoid Code(s): K64.9 - UNSPECIFIED HEMORRHOIDS (8) Conjunctival hemorrhage of right eye Code(s): H11.31 - CONJUNCTIVAL HEMORRHAGE, RIGHT EYE (9) Morbid obesity Code(s): E66.01 - MORBID (SEVERE) OBESITY DUE TO EXCESS CALORIES (10) Pulmonary embolus Code(s): I26.99 - OTHER PULMONARY EMBOLISM WITHOUT ACUTE COR PULMONALE (11) DVT (deep venous thrombosis) Code(s): I82.409 - ACUTE EMBOLISM AND THOMBOS UNSP DEEP VN UNSP LOWER EXTREMITY
[2017-09-10 00:07] LABS: IMMUNOGLOBULIN A QN 75 mg/dL (87-352); TRANS GLUTA IGG < 2 U/mL (0-5)
[2017-09-10] MEDS: ALBUTEROL SO4 0.083% IH SOL 2.5 MG/3 ML VIAL.NEB. NEB PRN ×2 (06:10→11:52)
[2017-09-10] MEDS: NYSTATIN 500,000 UNITS/5 ML SUSPENSION PO SCH ×3 (06:31→22:04)
[2017-09-10] MEDS: FUROSEMIDE 40 MG TABLET (FP) PO SCH ×2 (06:31→14:18)
[2017-09-10] MEDS: INSULIN SLIDING SCALE (NOVOLOG) 1 VIAL SQ SCH ×4 (06:33→22:03)
[2017-09-10 08:41] LABS: INR 3.19 (0.82-1.09); PROTHROMBIN TIME (PATIENT) 36.1 SEC (9.98-11.88)
--- NOTE | 2017-09-10 09:24 | PN ---
Progress Note, Physician Chief Complaint: right eye subconjunctival hemorrhage History of Present Illness: saying her sputum is now "yellow/ brown" - Current Medication List Current Medications: Active Medications Acetaminophen (Tylenol -) 1,000 mg PO Q8H PRN PRN Reason: PAIN Albuterol Sulfate (Ventolin 0.083% Nebulizer Soln -) 1 amp NEB Q4H PRN PRN Reason: SHORT OF BREATH/WHEEZING Last Admin: 09/10/17 06:10 Dose: 1 amp Aspirin (Asa -) 81 mg PO DAILY [facility] Last Admin: 09/09/17 09:36 Dose: 81 mg Budesonide/Formoterol Fumarate (Symbicort 160/4.5mcg -) 1 puff IH BID [facility] Last Admin: 09/09/17 21:51 Dose: 1 puff Cholecalciferol (Vitamin D3 -) 2,000 unit PO DAILY [facility] Last Admin: 09/09/17 09:36 Dose: 2,000 unit Ferrous Sulfate (Feosol -) 325 mg PO TIDCM [facility] Last Admin: 09/09/17 17:16 Dose: 325 mg Furosemide (Lasix -) 40 mg PO BID@0600,1400 [facility] Last Admin: 09/10/17 06:31 Dose: 40 mg Furosemide (Lasix Injection -) 20 mg IVPUSH ONCE PRN PRN Reason: SHORTNESS OF BREATH Last Admin: 09/05/17 22:23 Dose: 20 mg Insulin Aspart (Novolog Vial Sliding Scale -) 1 vial SQ ACHS [facility] PRN Reason: Protocol Last Admin: 09/10/17 06:33 Dose: 4 units Lidocaine (Lidoderm Patch -) 2 patch TP DAILY [facility] Last Admin: 09/09/17 09:36 Dose: 2 patch Meclizine HCl (Antivert -) 12.5 mg PO BID [facility] Last Admin: 09/09/17 21:51 Dose: 12.5 mg Methylprednisolone Sodium Succinate (Solu-Medrol -) 40 mg IVPUSH Q12H [facility] Last Admin: 09/09/17 21:51 Dose: 40 mg Miscellaneous (Lidoderm Patch Removal) 1 each MC DAILY@2200 [facility] Last Admin: 09/09/17 21:52 Dose: 1 each Nifedipine (Procardia Xl -) 30 mg PO DAILY [facility] Last Admin: 09/09/17 09:36 Dose: 30 mg Cyclosporine [ Restasis] 0.05% Eye Drops 1 each OU BID [facility] Last Admin: 09/09/17 21:52 Dose: 1 each Nystatin (Nystop Powder -) 1 applic TP BID [facility] Last Admin: 09/09/17 21:52 Dose: 1 applic Nystatin (Nystatin Oral Suspension -) 500,000 units PO TID [facility] Last Admin: 09/10/17 06:31 Dose: 500,000 units Pantoprazole Sodium (Protonix -) 40 mg PO DAILY [facility] Last Admin: 09/09/17 09:36 Dose: 40 mg Polyethylene Glycol (Miralax (For Daily Use) -) 17 gm PO DAILY [facility] Last Admin: 09/09/17 09:40 Dose: Not Given Rosuvastatin Calcium (Crestor -) 10 mg PO HS [facility] Last Admin: 09/09/17 21:51 Dose: 10 mg Senna (Senna -) 1 tab PO BID [facility] Last Admin: 09/09/17 21:51 Dose: 1 tab Sodium Chloride ([place] Nasal [place] -) 2 spray NS BID [facility] Last Admin: 09/09/17 21:52 Dose: Not Given Valsartan (Diovan -) 160 mg PO DAILY [facility] Last Admin: 09/09/17 09:36 Dose: 160 mg Warfarin Sodium (Coumadin -) 4 mg PO DAILY@1800 [facility] Last Admin: 09/08/17 18:06 Dose: 4 mg - Objective Vital Signs: Vital Signs Temperature 98.1 F 09/10/17 06:38 Pulse Rate 109 H 09/10/17 08:50 Respiratory Rate 20 09/10/17 06:38 Blood Pressure 145/78 09/10/17 06:38 O2 Sat by Pulse Oximetry (%) 96 09/10/17 08:50 Constitutional: Yes: Calm Cardiovascular: Yes: Regular Rate and Rhythm Respiratory: Yes: Other (decreased breath sounds bilaterally) Gastrointestinal: Yes: Soft, Abdomen, Obese Peripheral Pulses WNL: No Neurological: Yes: Alert Labs: CBC, BMP 09/09/17 06:50 09/09/17 06:50 INR, PTT INR 3.19 (0.82-1.09) H 09/10/17 07:00 Laboratory Tests 09/10/17 07:00 INR 3.19 H Assessment/Plan Assessment/Plan AECOPD Acute on chronic diastolic CHF, mild exacerbation- improved. History of PE on coumadin REC Continue nebs, supp. O2 and steroid taper as per Pulmonary. Holding coumadin, level > 3 with right eye subconjunctival hemorrhage Check stool guaiac, assure H/H not from occult GI source.
[2017-09-10] MEDS: NIFEdipine E.R. 30 MG TABLET (FP) PO SCH (09:32)
[2017-09-10] MEDS: CHOLECALCIFEROL (VITAMIN D3) 1,000 UNIT TABLET (FP) PO SCH (09:32)
[2017-09-10] MEDS: FERROUS SO4 325 MG TABLET (FP) PO SCH ×3 (09:32→18:00)
[2017-09-10] MEDS: ASPIRIN 81 MG CHEWABLE TABLETS PO SCH (09:32)
[2017-09-10] MEDS: SENNOSIDES 8.6MG TABLET (FP) PO SCH ×2 (09:32→22:04)
[2017-09-10] MEDS: PANTOPRAZOLE 40 MG TABLET (FP) PO SCH (09:32)
[2017-09-10] MEDS: MECLIZINE HCL 12.5 MG TABLET PO SCH ×2 (09:32→22:04)
[2017-09-10] MEDS: VALSARTAN 160 MG TABLET (UD) PO SCH (09:32)
[2017-09-10] MEDS: LIDOCAINE 5% TOPICAL PATCH TP SCH (09:33)
[2017-09-10] MEDS: NYSTATIN POWDER 100,000 UNITS/GM - 15 GM TOPICAL POWDER TP SCH ×2 (09:43→22:05)
[2017-09-10] MEDS: PHENYLEPH/MINERAL OIL/PETROLAT 28 GM OINTMENT RC SCH ×2 (09:44→22:07)
[2017-09-10] MEDS: SODIUM CHLORIDE NASAL SPRAY 44 ML BOTTLE NS SCH ×2 (09:44→22:05)
[2017-09-10] MEDS: BUDESONIDE/FORMETEROL FUMARATE 160/4.5 mcg INHALER IH SCH ×2 (09:53→22:05)
[2017-09-10] MEDS: POLYETHYLENE GLYCOL 3350 119 GM BTL PO SCH (10:02)
[2017-09-10] MEDS: methylPREDNISolone NA SUCC 40 MG/1 ML VIAL IVPUSH SCH ×2 (10:02→18:00)
--- NOTE | 2017-09-10 12:13 | PN ---
Progress Note (short form) - Note Progress Note: PULMONARY More short of breath today with yellow sputum. Last Vital Signs Temp Pulse Resp BP Pulse Ox 99.6 F 115 H 20 158/74 97 09/10/17 11:36 09/10/17 11:36 09/10/17 11:36 09/10/17 11:36 09/10/17 11:36 Gen: less tachypneic with speaking Heart: RRR Lung: distant breath sounds, poor air entry, bilateral rhonchi, wheezes Abd: soft, nontender Ext: no edema CBC, BMP 09/09/17 06:50 09/09/17 06:50 Active Medications Acetaminophen (Tylenol -) 1,000 mg PO Q8H PRN PRN Reason: PAIN Albuterol Sulfate (Ventolin 0.083% Nebulizer Soln -) 1 amp NEB Q4H PRN PRN Reason: SHORT OF BREATH/WHEEZING Last Admin: 09/10/17 11:52 Dose: 1 amp Aspirin (Asa -) 81 mg PO DAILY [facility] Last Admin: 09/10/17 09:32 Dose: 81 mg Budesonide/Formoterol Fumarate (Symbicort 160/4.5mcg -) 1 puff IH BID [facility] Last Admin: 09/10/17 09:53 Dose: 1 puff Cholecalciferol (Vitamin D3 -) 2,000 unit PO DAILY [facility] Last Admin: 09/10/17 09:32 Dose: 2,000 unit Ferrous Sulfate (Feosol -) 325 mg PO TIDCM [facility] Last Admin: 09/10/17 09:32 Dose: 325 mg Furosemide (Lasix -) 40 mg PO BID@0600,1400 [facility] Last Admin: 09/10/17 06:31 Dose: 40 mg Furosemide (Lasix Injection -) 20 mg IVPUSH ONCE PRN PRN Reason: SHORTNESS OF BREATH Last Admin: 09/05/17 22:23 Dose: 20 mg Insulin Aspart (Novolog Vial Sliding Scale -) 1 vial SQ ACHS [facility] PRN Reason: Protocol Last Admin: 09/10/17 11:16 Dose: Not Given Lidocaine (Lidoderm Patch -) 2 patch TP DAILY [facility] Last Admin: 09/10/17 09:33 Dose: 2 patch Meclizine HCl (Antivert -) 12.5 mg PO BID [facility] Last Admin: 09/10/17 09:32 Dose: 12.5 mg Methylprednisolone Sodium Succinate (Solu-Medrol -) 40 mg IVPUSH Q12H [facility] Last Admin: 09/10/17 10:02 Dose: 40 mg Miscellaneous (Lidoderm Patch Removal) 1 each MC DAILY@2200 [facility] Last Admin: 09/09/17 21:52 Dose: 1 each Nifedipine (Procardia Xl -) 30 mg PO DAILY [facility] Last Admin: 09/10/17 09:32 Dose: 30 mg Cyclosporine [ Restasis] 0.05% Eye Drops 1 each OU BID [facility] Last Admin: 09/10/17 09:44 Dose: 1 each Nystatin (Nystop Powder -) 1 applic TP BID [facility] Last Admin: 09/10/17 09:43 Dose: 1 applic Nystatin (Nystatin Oral Suspension -) 500,000 units PO TID [facility] Last Admin: 09/10/17 06:31 Dose: 500,000 units Pantoprazole Sodium (Protonix -) 40 mg PO DAILY [facility] Last Admin: 09/10/17 09:32 Dose: 40 mg Polyethylene Glycol (Miralax (For Daily Use) -) 17 gm PO DAILY [facility] Last Admin: 09/10/17 10:02 Dose: 17 grams Rosuvastatin Calcium (Crestor -) 10 mg PO HS [facility] Last Admin: 09/09/17 21:51 Dose: 10 mg Senna (Senna -) 1 tab PO BID [facility] Last Admin: 09/10/17 09:32 Dose: 1 tab Sodium Chloride ([place] Nasal [place] -) 2 spray NS BID [facility] Last Admin: 09/10/17 09:44 Dose: 2 sprays Valsartan (Diovan -) 160 mg PO DAILY [facility] Last Admin: 09/10/17 09:32 Dose: 160 mg Warfarin Sodium (Coumadin -) 4 mg PO DAILY@1800 [facility] Last Admin: 09/08/17 18:06 Dose: 4 mg A/P Acute on Chronic Hypoxic and Hypercapneic Respiratory Failure Acute COPD Exacerbation URI LV Diastolic Dysfunction Pulmonary HTN h/o PE Morbid Obesity HTN - will increase medrol to 60mg q8h - check CXR - inhaled bronchodilators standing and PRN - O2 to keep SpO2 >90% - continue anticoagulation - DVT prophylaxis
[2017-09-10 14:03] LABS: IMMUNOGLB A QN 75
--- NOTE | 2017-09-10 14:08 | PN ---
Progress Note, Physician History of Present Illness: continues to be sob still with poor resp effort - Current Medication List Current Medications: Active Medications Acetaminophen (Tylenol -) 1,000 mg PO Q8H PRN PRN Reason: PAIN Aspirin (Asa -) 81 mg PO DAILY [facility] Last Admin: 09/10/17 09:32 Dose: 81 mg Budesonide/Formoterol Fumarate (Symbicort 160/4.5mcg -) 1 puff IH BID [facility] Last Admin: 09/10/17 09:53 Dose: 1 puff Cholecalciferol (Vitamin D3 -) 2,000 unit PO DAILY [facility] Last Admin: 09/10/17 09:32 Dose: 2,000 unit Ferrous Sulfate (Feosol -) 325 mg PO TIDCM [facility] Last Admin: 09/10/17 12:13 Dose: 325 mg Furosemide (Lasix -) 40 mg PO BID@0600,1400 [facility] Last Admin: 09/10/17 06:31 Dose: 40 mg Furosemide (Lasix Injection -) 20 mg IVPUSH ONCE PRN PRN Reason: SHORTNESS OF BREATH Last Admin: 09/05/17 22:23 Dose: 20 mg Insulin Aspart (Novolog Vial Sliding Scale -) 1 vial SQ ACHS [facility] PRN Reason: Protocol Last Admin: 09/10/17 11:16 Dose: Not Given Lidocaine (Lidoderm Patch -) 2 patch TP DAILY [facility] Last Admin: 09/10/17 09:33 Dose: 2 patch Meclizine HCl (Antivert -) 12.5 mg PO BID [facility] Last Admin: 09/10/17 09:32 Dose: 12.5 mg Methylprednisolone Sodium Succinate (Solu-Medrol -) 60 mg IVPUSH Q8H-IV [facility] Miscellaneous (Lidoderm Patch Removal) 1 each MC DAILY@2200 [facility] Last Admin: 09/09/17 21:52 Dose: 1 each Nifedipine (Procardia Xl -) 30 mg PO DAILY [facility] Last Admin: 09/10/17 09:32 Dose: 30 mg Cyclosporine [ Restasis] 0.05% Eye Drops 1 each OU BID [facility] Last Admin: 09/10/17 09:44 Dose: 1 each Nystatin (Nystop Powder -) 1 applic TP BID [facility] Last Admin: 09/10/17 09:43 Dose: 1 applic Nystatin (Nystatin Oral Suspension -) 500,000 units PO TID [facility] Last Admin: 09/10/17 06:31 Dose: 500,000 units Pantoprazole Sodium (Protonix -) 40 mg PO DAILY [facility] Last Admin: 09/10/17 09:32 Dose: 40 mg Polyethylene Glycol (Miralax (For Daily Use) -) 17 gm PO DAILY [facility] Last Admin: 09/10/17 10:02 Dose: 17 grams Rosuvastatin Calcium (Crestor -) 10 mg PO HS [facility] Last Admin: 09/09/17 21:51 Dose: 10 mg Senna (Senna -) 1 tab PO BID [facility] Last Admin: 09/10/17 09:32 Dose: 1 tab Sodium Chloride ([place] Nasal [place] -) 2 spray NS BID [facility] Last Admin: 09/10/17 09:44 Dose: 2 sprays Valsartan (Diovan -) 160 mg PO DAILY [facility] Last Admin: 09/10/17 09:32 Dose: 160 mg Warfarin Sodium (Coumadin -) 4 mg PO DAILY@1800 [facility] Last Admin: 09/08/17 18:06 Dose: 4 mg - Objective Vital Signs: Vital Signs Temperature 99.6 F 09/10/17 11:36 Pulse Rate 115 H 09/10/17 11:36 Respiratory Rate 20 09/10/17 11:36 Blood Pressure 158/74 09/10/17 11:36 O2 Sat by Pulse Oximetry (%) 97 09/10/17 11:36 Constitutional: Yes: No Distress, Calm HENT: Yes: Atraumatic Respiratory: Yes: Poor Air Entry, Rhonchi, Wheezes Gastrointestinal: Yes: Normal Bowel Sounds, Soft Musculoskeletal: Yes: WNL Extremities: Yes: WNL Neurological: Yes: Alert, Oriented Psychiatric: Yes: Alert, Oriented Labs: CBC, BMP 09/09/17 06:50 09/09/17 06:50 INR, PTT INR 3.19 (0.82-1.09) H 09/10/17 07:00 Assessment/Plan Problem List - Problems (1) SOB (shortness of breath) Code(s): R06.02 - SHORTNESS OF BREATH (2) Acute on chronic respiratory failure with hypoxia and hypercapnia Code(s): J96.21 - ACUTE AND CHRONIC RESPIRATORY FAILURE WITH HYPOXIA J96.22 - ACUTE AND CHRONIC RESPIRATORY FAILURE WITH HYPERCAPNIA (3) Anemia Code(s): D64.9 - ANEMIA, UNSPECIFIED (4) CHF (congestive heart failure) Code(s): I50.9 - HEART FAILURE, UNSPECIFIED (5) COPD exacerbation Code(s): J44.1 - CHRONIC OBSTRUCTIVE PULMONARY DISEASE W (ACUTE) EXACERBATION (6) Chronic diastolic (congestive) heart failure Code(s): I50.32 - CHRONIC DIASTOLIC (CONGESTIVE) HEART FAILURE (7) Coronary artery disease Code(s): I25.10 - ATHSCL HEART DISEASE OF [place] CORONARY ARTERY W/O ANG PCTRS (8) History of pulmonary embolism Code(s): Z86.711 - PERSONAL HISTORY OF PULMONARY EMBOLISM (9) Morbid obesity Code(s): E66.01 - MORBID (SEVERE) OBESITY DUE TO EXCESS CALORIES (10) Pulmonary hypertension Code(s): I27.2 - OTHER SECONDARY PULMONARY HYPERTENSION * DO NOT USE * plan still wiht resp effort wbc still on the higher will hold off on starting abx rest continue current mgmt
--- NOTE | 2017-09-10 18:30 | PN ---
Progress Note (short form) - Note Progress Note: Seen and examined she feels a little better O/E: Morbid obseity On O2. HEENT: [place], EOM Intact Cor: RSR, No murmurs, No gallops Lungs: Clear to P&A.scattered rhonchi Abd: Soft, Normal bowel sounds, No organomegaly Ext:chronic edema eye: redness noted in the rt eye Temp Pulse Resp BP Pulse Ox 98.2 F 97 H 20 150/78 95 09/08/17 06:00 09/08/17 06:00 09/08/17 06:00 09/08/17 06:00 09/07/17 21:00 CBC, BMP 09/08/17 06:35 09/08/17 06:35 Current Medications Generic Name Dose Route Start Last Admin Trade Name Freq PRN Reason Stop Dose Admin Acetaminophen 1,000 mg 09/06/17 14:52 Tylenol - PO Q8H PRN PAIN Albuterol Sulfate 1 amp 09/05/17 13:08 Ventolin 0.083% Nebulizer Soln - NEB Q4H PRN SHORT OF BREATH/WHEEZING Albuterol/Ipratropium 1 amp 09/04/17 18:00 09/08/17 06:19 Duoneb - NEB 1 amp QIDR [facility] Administration Aspirin 81 mg 08/21/17 10:00 09/08/17 10:40 Asa - PO 81 mg DAILY [facility] Administration Budesonide/Formoterol Fumarate 1 puff 08/21/17 10:00 09/08/17 10:40 Symbicort 160/4.5mcg - IH 1 puff BID [facility] Administration Cholecalciferol 2,000 unit 08/21/17 10:00 09/08/17 10:49 Vitamin D3 - PO 2,000 unit DAILY [facility] Administration Ferrous Sulfate 325 mg 08/24/17 20:00 09/08/17 10:34 Feosol - PO 325 mg TIDCM [facility] Administration Furosemide 40 mg 09/01/17 14:00 09/08/17 06:40 Lasix - PO 40 mg BID@0600,1400 [facility] Administration Furosemide 20 mg 09/05/17 12:16 09/05/17 22:23 Lasix Injection - IVPUSH 20 mg ONCE PRN Administration SHORTNESS OF BREATH Insulin Aspart 1 vial 08/21/17 07:00 09/08/17 06:40 Novolog Vial Sliding Scale - SQ 2 units ACHS [facility] Administration Protocol Lidocaine 2 patch 09/06/17 14:53 09/08/17 10:35 Lidoderm Patch - TP 2 patch DAILY [facility] Administration Meclizine HCl 12.5 mg 08/21/17 10:00 09/08/17 10:40 Antivert - PO 12.5 mg BID [facility] Administration Methylprednisolone Sodium Succinate 40 mg 09/03/17 10:45 09/08/17 10:48 Solu-Medrol - IVPUSH 40 mg Q12H [facility] Administration Miscellaneous 1 each 09/04/17 22:00 09/07/17 21:47 Lidoderm Patch Removal MC 1 each DAILY@2200 [facility] Administration Nifedipine 30 mg 08/21/17 10:00 09/08/17 10:40 Procardia Xl - PO 30 mg DAILY [facility] Administration Cyclosporine [ 1 each 08/29/17 22:00 09/08/17 10:40 Restasis] 0.05% Eye OU 1 each Drops BID [facility] Administration Nystatin 1 applic 08/21/17 22:00 09/08/17 10:40 Nystop Powder - TP 1 applic BID [facility] Administration Nystatin 500,000 units 08/26/17 22:00 09/08/17 06:40 Nystatin Oral Suspension - PO 500,000 units TID [facility] Administration Pantoprazole Sodium 40 mg 08/21/17 10:00 09/08/17 10:35 Protonix - PO 40 mg DAILY [facility] Administration Polyethylene Glycol 17 gm 09/03/17 04:00 09/07/17 11:26 Miralax (For Daily Use) - PO 17 grams DAILY [facility] Administration Rosuvastatin Calcium 10 mg 08/21/17 22:00 09/07/17 21:47 Crestor - PO 10 mg HS [facility] Administration Senna 1 tab 08/23/17 22:00 09/08/17 10:35 Senna - PO 1 tab BID [facility] Administration Sodium Chloride 2 spray 08/27/17 22:00 09/08/17 10:40 [place] Nasal [place] - NS Not Given BID [facility] Valsartan 160 mg 08/21/17 10:00 09/08/17 10:40 Diovan - PO 160 mg DAILY [facility] Administration Warfarin Sodium 4 mg 09/08/17 02:00 09/08/17 02:55 Coumadin - PO 4 mg DAILY@1800 [facility] Administration anemia leucocytoiss PE End stage COPD New subconjunctival haemorrhage Rt arm hematoma dCHF Pulmonary HTN ( 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 evaluated by Ophthalmology as per pt. -hold coumadin for today and repeat INR in the am -hematoma on the RUE, getting better -continues to be on IV steroids,increased -COPD/dCHF as per Pulm and Cardiology d/w RN
[2017-09-10] MEDS: LIDOCAINE PATCH REMOVAL MC SCH (22:04)
[2017-09-10] MEDS: ROSUVASTATIN CA 10 MG TABLET (FP) PO SCH (22:04)
--- NOTE | 2017-09-10 22:28 | PN ---
Progress Note, Physician History of Present Illness: Pt SOB at rest - Current Medication List Current Medications: Active Medications Acetaminophen (Tylenol -) 1,000 mg PO Q8H PRN PRN Reason: PAIN Aspirin (Asa -) 81 mg PO DAILY [facility] Last Admin: 09/10/17 09:32 Dose: 81 mg Budesonide/Formoterol Fumarate (Symbicort 160/4.5mcg -) 1 puff IH BID [facility] Last Admin: 09/10/17 22:05 Dose: 1 puff Cholecalciferol (Vitamin D3 -) 2,000 unit PO DAILY [facility] Last Admin: 09/10/17 09:32 Dose: 2,000 unit Ferrous Sulfate (Feosol -) 325 mg PO TIDCM [facility] Last Admin: 09/10/17 18:00 Dose: 325 mg Furosemide (Lasix -) 40 mg PO BID@0600,1400 [facility] Last Admin: 09/10/17 14:18 Dose: 40 mg Furosemide (Lasix Injection -) 20 mg IVPUSH ONCE PRN PRN Reason: SHORTNESS OF BREATH Last Admin: 09/05/17 22:23 Dose: 20 mg Insulin Aspart (Novolog Vial Sliding Scale -) 1 vial SQ ACHS [facility] PRN Reason: Protocol Last Admin: 09/10/17 22:03 Dose: 4 units Lidocaine (Lidoderm Patch -) 2 patch TP DAILY [facility] Last Admin: 09/10/17 09:33 Dose: 2 patch Meclizine HCl (Antivert -) 12.5 mg PO BID [facility] Last Admin: 09/10/17 22:04 Dose: 12.5 mg Methylprednisolone Sodium Succinate (Solu-Medrol -) 60 mg IVPUSH Q8H-IV [facility] Last Admin: 09/10/17 18:00 Dose: 60 mg Miscellaneous (Lidoderm Patch Removal) 1 each MC DAILY@2200 [facility] Last Admin: 09/10/17 22:04 Dose: 1 each Nifedipine (Procardia Xl -) 30 mg PO DAILY [facility] Last Admin: 09/10/17 09:32 Dose: 30 mg Cyclosporine [ Restasis] 0.05% Eye Drops 1 each OU BID [facility] Last Admin: 09/10/17 22:04 Dose: 1 each Nystatin (Nystop Powder -) 1 applic TP BID [facility] Last Admin: 09/10/17 22:05 Dose: 1 applic Nystatin (Nystatin Oral Suspension -) 500,000 units PO TID [facility] Last Admin: 09/10/17 22:04 Dose: 500,000 units Pantoprazole Sodium (Protonix -) 40 mg PO DAILY [facility] Last Admin: 09/10/17 09:32 Dose: 40 mg Polyethylene Glycol (Miralax (For Daily Use) -) 17 gm PO DAILY [facility] Last Admin: 09/10/17 10:02 Dose: 17 grams Rosuvastatin Calcium (Crestor -) 10 mg PO HS [facility] Last Admin: 09/10/17 22:04 Dose: 10 mg Senna (Senna -) 1 tab PO BID [facility] Last Admin: 09/10/17 22:04 Dose: 1 tab Sodium Chloride ([place] Nasal [place] -) 2 spray NS BID [facility] Last Admin: 09/10/17 22:05 Dose: Not Given Valsartan (Diovan -) 160 mg PO DAILY [facility] Last Admin: 09/10/17 09:32 Dose: 160 mg Warfarin Sodium (Coumadin -) 4 mg PO DAILY@1800 [facility] Last Admin: 09/08/17 18:06 Dose: 4 mg - Objective Vital Signs: Vital Signs Temperature 98.8 F 09/10/17 21:20 Pulse Rate 85 09/10/17 21:20 Respiratory Rate 16 09/10/17 21:20 Blood Pressure 147/76 09/10/17 18:00 O2 Sat by Pulse Oximetry (%) 97 09/10/17 21:00 Constitutional: Yes: Well Nourished Neck: Yes: WNL, Supple Cardiovascular: Yes: WNL, Regular Rate and Rhythm Respiratory: Yes: Diminished, Wheezes Gastrointestinal: Yes: WNL, Normal Bowel Sounds, Soft, Abdomen, Obese Labs: CBC, BMP 09/09/17 06:50 09/09/17 06:50 INR, PTT INR 3.19 (0.82-1.09) H 09/10/17 07:00 Problem List - Problems (1) COPD exacerbation Assessment/Plan: Cont IV steroid increased today due to worsening SOB Cont nebulizers/spiriva/symbicort Ventimask prn Check cxr Code(s): J44.1 - CHRONIC OBSTRUCTIVE PULMONARY DISEASE W (ACUTE) EXACERBATION (2) Chronic diastolic (congestive) heart failure Assessment/Plan: Cont lasix Monitor electrolytes Code(s): I50.32 - CHRONIC DIASTOLIC (CONGESTIVE) HEART FAILURE (3) History of pulmonary embolism Assessment/Plan: Monitor PT/inr Hold coumadin Code(s): Z86.711 - PERSONAL HISTORY OF PULMONARY EMBOLISM (4) Hypertension Assessment/Plan: BP stable Cont procardia/diovan Code(s): I10 - ESSENTIAL (PRIMARY) HYPERTENSION (5) Coronary artery disease Code(s): I25.10 - ATHSCL HEART DISEASE OF [place] CORONARY ARTERY W/O ANG PCTRS (6) HLD (hyperlipidemia) Code(s): E78.5 - HYPERLIPIDEMIA, UNSPECIFIED (7) Hemorrhoid Code(s): K64.9 - UNSPECIFIED HEMORRHOIDS (8) Conjunctival hemorrhage of right eye Code(s): H11.31 - CONJUNCTIVAL HEMORRHAGE, RIGHT EYE (9) Morbid obesity Code(s): E66.01 - MORBID (SEVERE) OBESITY DUE TO EXCESS CALORIES (10) Pulmonary embolus Code(s): I26.99 - OTHER PULMONARY EMBOLISM WITHOUT ACUTE COR PULMONALE (11) DVT (deep venous thrombosis) Code(s): I82.409 - ACUTE EMBOLISM AND THOMBOS UNSP DEEP VN UNSP LOWER EXTREMITY
[2017-09-11] MEDS: methylPREDNISolone NA SUCC 40 MG/1 ML VIAL IVPUSH SCH ×3 (03:00→18:09)
[2017-09-11] MEDS: FUROSEMIDE 40 MG TABLET (FP) PO SCH ×2 (05:32→14:23)
[2017-09-11] MEDS: NYSTATIN 500,000 UNITS/5 ML SUSPENSION PO SCH ×3 (05:32→22:25)
[2017-09-11] MEDS: INSULIN SLIDING SCALE (NOVOLOG) 1 VIAL SQ SCH ×4 (06:07→22:39)
[2017-09-11 07:52] LABS: INR 3.22 (0.82-1.09); PROTHROMBIN TIME (PATIENT) 36.4 SEC (9.98-11.88)
--- NOTE | 2017-09-11 09:12 | PN ---
Progress Note, Physician Chief Complaint: feeling better - Current Medication List Current Medications: Active Medications Acetaminophen (Tylenol -) 1,000 mg PO Q8H PRN PRN Reason: PAIN Albuterol Sulfate (Ventolin 0.083% Nebulizer Soln -) 1 amp NEB Q4H PRN PRN Reason: SHORT OF BREATH/WHEEZING Aspirin (Asa -) 81 mg PO DAILY [facility] Last Admin: 09/10/17 09:32 Dose: 81 mg Budesonide/Formoterol Fumarate (Symbicort 160/4.5mcg -) 1 puff IH BID [facility] Last Admin: 09/10/17 22:05 Dose: 1 puff Cholecalciferol (Vitamin D3 -) 2,000 unit PO DAILY [facility] Last Admin: 09/10/17 09:32 Dose: 2,000 unit Ferrous Sulfate (Feosol -) 325 mg PO TIDCM [facility] Last Admin: 09/10/17 18:00 Dose: 325 mg Furosemide (Lasix -) 40 mg PO BID@0600,1400 [facility] Last Admin: 09/11/17 05:32 Dose: 40 mg Furosemide (Lasix Injection -) 20 mg IVPUSH ONCE PRN PRN Reason: SHORTNESS OF BREATH Last Admin: 09/05/17 22:23 Dose: 20 mg Insulin Aspart (Novolog Vial Sliding Scale -) 1 vial SQ ACHS [facility] PRN Reason: Protocol Last Admin: 09/11/17 06:07 Dose: 4 units Lidocaine (Lidoderm Patch -) 2 patch TP DAILY [facility] Last Admin: 09/10/17 09:33 Dose: 2 patch Meclizine HCl (Antivert -) 12.5 mg PO BID [facility] Last Admin: 09/10/17 22:04 Dose: 12.5 mg Methylprednisolone Sodium Succinate (Solu-Medrol -) 60 mg IVPUSH Q8H-IV [facility] Last Admin: 09/11/17 03:00 Dose: 60 mg Miscellaneous (Lidoderm Patch Removal) 1 each MC DAILY@2200 [facility] Last Admin: 09/10/17 22:04 Dose: 1 each Nifedipine (Procardia Xl -) 30 mg PO DAILY [facility] Last Admin: 09/10/17 09:32 Dose: 30 mg Cyclosporine [ Restasis] 0.05% Eye Drops 1 each OU BID [facility] Last Admin: 09/10/17 22:04 Dose: 1 each Nystatin (Nystop Powder -) 1 applic TP BID [facility] Last Admin: 09/10/17 22:05 Dose: 1 applic Nystatin (Nystatin Oral Suspension -) 500,000 units PO TID [facility] Last Admin: 09/11/17 05:32 Dose: 500,000 units Pantoprazole Sodium (Protonix -) 40 mg PO DAILY [facility] Last Admin: 09/10/17 09:32 Dose: 40 mg Polyethylene Glycol (Miralax (For Daily Use) -) 17 gm PO DAILY [facility] Last Admin: 09/10/17 10:02 Dose: 17 grams Rosuvastatin Calcium (Crestor -) 10 mg PO HS [facility] Last Admin: 09/10/17 22:04 Dose: 10 mg Senna (Senna -) 1 tab PO BID [facility] Last Admin: 09/10/17 22:04 Dose: 1 tab Sodium Chloride ([place] Nasal [place] -) 2 spray NS BID [facility] Last Admin: 09/10/17 22:05 Dose: Not Given Valsartan (Diovan -) 160 mg PO DAILY [facility] Last Admin: 09/10/17 09:32 Dose: 160 mg - Objective Vital Signs: Vital Signs Temperature 98.0 F 09/11/17 05:59 Pulse Rate 89 09/11/17 05:59 Respiratory Rate 18 09/11/17 05:59 Blood Pressure 140/53 09/11/17 05:59 O2 Sat by Pulse Oximetry (%) 97 09/10/17 21:00 Constitutional: Yes: Calm Cardiovascular: Yes: Regular Rate and Rhythm Respiratory: Yes: Other (decreased breath sounds no wheezing) Gastrointestinal: Yes: Soft, Abdomen, Obese Edema: No Neurological: Yes: Alert, Oriented Labs: CBC, BMP 09/09/17 06:50 09/09/17 06:50 INR, PTT INR 3.22 (0.82-1.09) H 09/11/17 07:20 Laboratory Tests 09/11/17 07:20 INR 3.22 H Assessment/Plan Assessment/Plan AECOPD Acute on chronic diastolic CHF, mild exacerbation- improved. History of PE on coumadin Anemia REC Continue nebs, supp. O2 and steroid taper as per Pulmonary. Holding coumadin, level > 3 with right eye subconjunctival hemorrhage Stool guaiac negative x 2.
--- NOTE | 2017-09-11 09:51 | PN ---
Progress Note, Physician History of Present Illness: continues to be sob still with poor resp effort on nasal cannula - Current Medication List Current Medications: Active Medications Acetaminophen (Tylenol -) 1,000 mg PO Q8H PRN PRN Reason: PAIN Albuterol Sulfate (Ventolin 0.083% Nebulizer Soln -) 1 amp NEB Q4H PRN PRN Reason: SHORT OF BREATH/WHEEZING Aspirin (Asa -) 81 mg PO DAILY [facility] Last Admin: 09/10/17 09:32 Dose: 81 mg Budesonide/Formoterol Fumarate (Symbicort 160/4.5mcg -) 1 puff IH BID [facility] Last Admin: 09/10/17 22:05 Dose: 1 puff Cholecalciferol (Vitamin D3 -) 2,000 unit PO DAILY [facility] Last Admin: 09/10/17 09:32 Dose: 2,000 unit Ferrous Sulfate (Feosol -) 325 mg PO TIDCM [facility] Last Admin: 09/10/17 18:00 Dose: 325 mg Furosemide (Lasix -) 40 mg PO BID@0600,1400 [facility] Last Admin: 09/11/17 05:32 Dose: 40 mg Furosemide (Lasix Injection -) 20 mg IVPUSH ONCE PRN PRN Reason: SHORTNESS OF BREATH Last Admin: 09/05/17 22:23 Dose: 20 mg Insulin Aspart (Novolog Vial Sliding Scale -) 1 vial SQ ACHS [facility] PRN Reason: Protocol Last Admin: 09/11/17 06:07 Dose: 4 units Lidocaine (Lidoderm Patch -) 2 patch TP DAILY [facility] Last Admin: 09/10/17 09:33 Dose: 2 patch Meclizine HCl (Antivert -) 12.5 mg PO BID [facility] Last Admin: 09/10/17 22:04 Dose: 12.5 mg Methylprednisolone Sodium Succinate (Solu-Medrol -) 60 mg IVPUSH Q8H-IV [facility] Last Admin: 09/11/17 03:00 Dose: 60 mg Miscellaneous (Lidoderm Patch Removal) 1 each MC DAILY@2200 [facility] Last Admin: 09/10/17 22:04 Dose: 1 each Nifedipine (Procardia Xl -) 30 mg PO DAILY [facility] Last Admin: 09/10/17 09:32 Dose: 30 mg Cyclosporine [ Restasis] 0.05% Eye Drops 1 each OU BID [facility] Last Admin: 09/10/17 22:04 Dose: 1 each Nystatin (Nystop Powder -) 1 applic TP BID [facility] Last Admin: 09/10/17 22:05 Dose: 1 applic Nystatin (Nystatin Oral Suspension -) 500,000 units PO TID [facility] Last Admin: 09/11/17 05:32 Dose: 500,000 units Pantoprazole Sodium (Protonix -) 40 mg PO DAILY [facility] Last Admin: 09/10/17 09:32 Dose: 40 mg Polyethylene Glycol (Miralax (For Daily Use) -) 17 gm PO DAILY [facility] Last Admin: 09/10/17 10:02 Dose: 17 grams Rosuvastatin Calcium (Crestor -) 10 mg PO HS [facility] Last Admin: 09/10/17 22:04 Dose: 10 mg Senna (Senna -) 1 tab PO BID [facility] Last Admin: 09/10/17 22:04 Dose: 1 tab Sodium Chloride ([place] Nasal [place] -) 2 spray NS BID [facility] Last Admin: 09/10/17 22:05 Dose: Not Given Valsartan (Diovan -) 160 mg PO DAILY [facility] Last Admin: 09/10/17 09:32 Dose: 160 mg - Objective Vital Signs: Vital Signs Temperature 98.2 F 09/11/17 09:27 Pulse Rate 102 H 09/11/17 09:27 Respiratory Rate 20 09/11/17 09:27 Blood Pressure 144/75 09/11/17 09:27 O2 Sat by Pulse Oximetry (%) 97 09/10/17 21:00 Constitutional: Yes: Calm, Mild Distress, Obese Cardiovascular: Yes: Regular Rate and Rhythm Respiratory: Yes: On Nasal O2, Poor Air Entry, Wheezes Gastrointestinal: Yes: Normal Bowel Sounds, Soft Musculoskeletal: Yes: Other Extremities: Yes: Other Integumentary: Yes: Other (bruise of the rt arm wide patch) Neurological: Yes: Alert, Oriented Psychiatric: Yes: Alert, Oriented Labs: CBC, BMP 09/09/17 06:50 09/09/17 06:50 INR, PTT INR 3.22 (0.82-1.09) H 09/11/17 07:20 Assessment/Plan Problem List - Problems (1) SOB (shortness of breath) Code(s): R06.02 - SHORTNESS OF BREATH (2) Acute on chronic respiratory failure with hypoxia and hypercapnia Code(s): J96.21 - ACUTE AND CHRONIC RESPIRATORY FAILURE WITH HYPOXIA J96.22 - ACUTE AND CHRONIC RESPIRATORY FAILURE WITH HYPERCAPNIA (3) Anemia Code(s): D64.9 - ANEMIA, UNSPECIFIED (4) CHF (congestive heart failure) Code(s): I50.9 - HEART FAILURE, UNSPECIFIED (5) COPD exacerbation Code(s): J44.1 - CHRONIC OBSTRUCTIVE PULMONARY DISEASE W (ACUTE) EXACERBATION (6) Chronic diastolic (congestive) heart failure Code(s): I50.32 - CHRONIC DIASTOLIC (CONGESTIVE) HEART FAILURE (7) Coronary artery disease Code(s): I25.10 - ATHSCL HEART DISEASE OF [place] CORONARY ARTERY W/O ANG PCTRS (8) History of pulmonary embolism Code(s): Z86.711 - PERSONAL HISTORY OF PULMONARY EMBOLISM (9) Morbid obesity Code(s): E66.01 - MORBID (SEVERE) OBESITY DUE TO EXCESS CALORIES (10) Pulmonary hypertension Code(s): I27.2 - OTHER SECONDARY PULMONARY HYPERTENSION * DO NOT USE * plan continue resp support monitor the bruise on the hand rest as per primary team and pul
[2017-09-11] MEDS: FERROUS SO4 325 MG TABLET (FP) PO SCH ×3 (10:53→18:09)
[2017-09-11] MEDS: BUDESONIDE/FORMETEROL FUMARATE 160/4.5 mcg INHALER IH SCH ×2 (10:55→22:26)
[2017-09-11] MEDS: ASPIRIN 81 MG CHEWABLE TABLETS PO SCH (10:55)
[2017-09-11] MEDS: MECLIZINE HCL 12.5 MG TABLET PO SCH ×2 (10:55→22:25)
[2017-09-11] MEDS: PANTOPRAZOLE 40 MG TABLET (FP) PO SCH (10:55)
[2017-09-11] MEDS: CHOLECALCIFEROL (VITAMIN D3) 1,000 UNIT TABLET (FP) PO SCH (10:55)
[2017-09-11] MEDS: SENNOSIDES 8.6MG TABLET (FP) PO SCH ×2 (10:55→22:28)
[2017-09-11] MEDS: VALSARTAN 160 MG TABLET (UD) PO SCH (10:55)
[2017-09-11] MEDS: NIFEdipine E.R. 30 MG TABLET (FP) PO SCH (10:55)
[2017-09-11] MEDS: NYSTATIN POWDER 100,000 UNITS/GM - 15 GM TOPICAL POWDER TP SCH ×2 (10:56→22:25)
[2017-09-11] MEDS: SODIUM CHLORIDE NASAL SPRAY 44 ML BOTTLE NS SCH ×2 (10:57→22:26)
[2017-09-11] MEDS: PHENYLEPH/MINERAL OIL/PETROLAT 28 GM OINTMENT RC SCH ×2 (10:57→22:26)
[2017-09-11] MEDS: LIDOCAINE 5% TOPICAL PATCH TP SCH (10:59)
[2017-09-11] MEDS: POLYETHYLENE GLYCOL 3350 119 GM BTL PO SCH (11:10)
[2017-09-11] MEDS: ALBUTEROL SO4 0.083% IH SOL 2.5 MG/3 ML VIAL.NEB. NEB PRN ×2 (12:34→22:15)
--- NOTE | 2017-09-11 13:54 | PN ---
Progress Note (short form) - Note Progress Note: Seen and examined she feels a little better, but continues to have cough. O/E: Morbid obseity On O2. HEENT: [place], EOM Intact Cor: RSR, No murmurs, No gallops Lungs: Clear to P&A.scattered rhonchi Abd: Soft, Normal bowel sounds, No organomegaly Ext:chronic edema eye: redness noted in the rt eye is improving Last Vital Signs Temp Pulse Resp BP Pulse Ox 98.2 F 105 H 20 144/75 95 09/11/17 09:27 09/11/17 12:35 09/11/17 09:27 09/11/17 09:27 09/11/17 12:35 CBC, BMP 09/09/17 06:50 09/09/17 06:50 Current Medications Generic Name Dose Route Start Last Admin Trade Name Freq PRN Reason Stop Dose Admin Acetaminophen 1,000 mg 09/06/17 14:52 Tylenol - PO Q8H PRN PAIN Albuterol Sulfate 1 amp 09/11/17 06:27 09/11/17 12:34 Ventolin 0.083% Nebulizer Soln - NEB 1 amp Q4H PRN Administration SHORT OF BREATH/WHEEZING Aspirin 81 mg 08/21/17 10:00 09/11/17 10:55 Asa - PO 81 mg DAILY [facility] Administration Budesonide/Formoterol Fumarate 1 puff 08/21/17 10:00 09/11/17 10:55 Symbicort 160/4.5mcg - IH 1 puff BID [facility] Administration Cholecalciferol 2,000 unit 08/21/17 10:00 09/11/17 10:55 Vitamin D3 - PO 2,000 unit DAILY [facility] Administration Ferrous Sulfate 325 mg 08/24/17 20:00 09/11/17 10:53 Feosol - PO 325 mg TIDCM [facility] Administration Furosemide 40 mg 09/01/17 14:00 09/11/17 05:32 Lasix - PO 40 mg BID@0600,1400 [facility] Administration Furosemide 20 mg 09/05/17 12:16 09/05/17 22:23 Lasix Injection - IVPUSH 20 mg ONCE PRN Administration SHORTNESS OF BREATH Insulin Aspart 1 vial 08/21/17 07:00 09/11/17 11:47 Novolog Vial Sliding Scale - SQ 6 units ACHS [facility] Administration Protocol Lidocaine 2 patch 09/06/17 14:53 09/11/17 10:59 Lidoderm Patch - TP 2 patch DAILY [facility] Administration Meclizine HCl 12.5 mg 08/21/17 10:00 09/11/17 10:55 Antivert - PO 12.5 mg BID [facility] Administration Methylprednisolone Sodium Succinate 60 mg 09/10/17 18:00 09/11/17 10:52 Solu-Medrol - IVPUSH 60 mg Q8H-IV [facility] Administration Miscellaneous 1 each 09/04/17 22:00 09/10/17 22:04 Lidoderm Patch Removal MC 1 each DAILY@2200 [facility] Administration Nifedipine 30 mg 08/21/17 10:00 09/11/17 10:55 Procardia Xl - PO 30 mg DAILY [facility] Administration Cyclosporine [ 1 each 08/29/17 22:00 09/11/17 10:57 Restasis] 0.05% Eye OU 1 each Drops BID [facility] Administration Nystatin 1 applic 08/21/17 22:00 09/11/17 10:56 Nystop Powder - TP 1 applic BID [facility] Administration Nystatin 500,000 units 08/26/17 22:00 09/11/17 05:32 Nystatin Oral Suspension - PO 500,000 units TID [facility] Administration Pantoprazole Sodium 40 mg 08/21/17 10:00 09/11/17 10:55 Protonix - PO 40 mg DAILY [facility] Administration Polyethylene Glycol 17 gm 09/03/17 04:00 09/11/17 11:10 Miralax (For Daily Use) - PO 17 grams DAILY [facility] Administration Rosuvastatin Calcium 10 mg 08/21/17 22:00 09/10/17 22:04 Crestor - PO 10 mg HS [facility] Administration Senna 1 tab 08/23/17 22:00 09/11/17 10:55 Senna - PO 1 tab BID [facility] Administration Sodium Chloride 2 spray 08/27/17 22:00 09/11/17 10:57 [place] Nasal [place] - NS Not Given BID [facility] Valsartan 160 mg 08/21/17 10:00 09/11/17 10:55 Diovan - PO 160 mg DAILY [facility] Administration anemia leucocytoiss PE End stage COPD subconjunctival haemorrhage; improving Rt arm hematoma :improving dCHF Pulmonary HTN ( 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 evaluated by Ophthalmology as per pt. -hold coumadin for today and repeat INR in the am -COPD/dCHF as per Pulm and Cardiology d/w RN
--- NOTE | 2017-09-11 15:28 | PN ---
Progress Note (short form) - Note Progress Note: PULMONARY SITTING UP IN BED CONGESTED COUGH VSS/AFEBRILE ANICTERIC SCATTERED B/L RHONCHI/EXP WHEEZE S1S2 BS+ OBESE NO ANKLE EDEMA LABS/MEDS/NOTES/IMAGING REVIEWED IMP ACUTE ON CHRONIC HYPOXEMIC/HYPERCAPNEIC RESPIRATORY FAILURE END STAGE COPD O2 DEPENDENT WITH ACUTE EXACERBATION URI DIASTOLIC HF PULMONARY HTN H/O RECURRENT PULMONARY EMBOLI HTN MORBID OBESITY ANEMIA S/P TRANSFUSION PLAN IV STEROIDS SUPPLEMENTAL O2 VIA VM INHALED BRONCHODILATORS NIPPV NEEDED DIURETICS MONITOR H+H TRANSFUSE NEEDED Danny ROMERO MD
[2017-09-11] MEDS ORDERED: PT OWN MED DRAWER 7, Y5N ONE ×2 (17:19→21:56)
[2017-09-11] MEDS ORDERED: INSULIN (NOVOLOG) ASPART 100 UNITS/ML 10ML VIAL ONE (17:19)
[2017-09-11] MEDS: ROSUVASTATIN CA 10 MG TABLET (FP) PO SCH (22:25)
[2017-09-11] MEDS: LIDOCAINE PATCH REMOVAL MC SCH (22:25)
--- NOTE | 2017-09-11 22:54 | PN ---
Progress Note, Physician History of Present Illness: No new changes. Pt has conjunctival hemorrhage again in rt eye - Current Medication List Current Medications: Active Medications Acetaminophen (Tylenol -) 1,000 mg PO Q8H PRN PRN Reason: PAIN Albuterol Sulfate (Ventolin 0.083% Nebulizer Soln -) 1 amp NEB Q4H PRN PRN Reason: SHORT OF BREATH/WHEEZING Last Admin: 09/11/17 12:34 Dose: 1 amp Aspirin (Asa -) 81 mg PO DAILY [facility] Last Admin: 09/11/17 10:55 Dose: 81 mg Budesonide/Formoterol Fumarate (Symbicort 160/4.5mcg -) 1 puff IH BID [facility] Last Admin: 09/11/17 22:26 Dose: 1 puff Cholecalciferol (Vitamin D3 -) 2,000 unit PO DAILY [facility] Last Admin: 09/11/17 10:55 Dose: 2,000 unit Ferrous Sulfate (Feosol -) 325 mg PO TIDCM [facility] Last Admin: 09/11/17 18:09 Dose: 325 mg Furosemide (Lasix -) 40 mg PO BID@0600,1400 [facility] Last Admin: 09/11/17 14:23 Dose: 40 mg Furosemide (Lasix Injection -) 20 mg IVPUSH ONCE PRN PRN Reason: SHORTNESS OF BREATH Last Admin: 09/05/17 22:23 Dose: 20 mg Insulin Aspart (Novolog Vial Sliding Scale -) 1 vial SQ ACHS [facility] PRN Reason: Protocol Last Admin: 09/11/17 22:39 Dose: 8 units Lidocaine (Lidoderm Patch -) 2 patch TP DAILY [facility] Last Admin: 09/11/17 10:59 Dose: 2 patch Meclizine HCl (Antivert -) 12.5 mg PO BID [facility] Last Admin: 09/11/17 22:25 Dose: 12.5 mg Methylprednisolone Sodium Succinate (Solu-Medrol -) 60 mg IVPUSH Q8H-IV [facility] Last Admin: 09/11/17 18:09 Dose: 60 mg Miscellaneous (Lidoderm Patch Removal) 1 each MC DAILY@2200 [facility] Last Admin: 09/11/17 22:25 Dose: 1 each Nifedipine (Procardia Xl -) 30 mg PO DAILY [facility] Last Admin: 09/11/17 10:55 Dose: 30 mg Cyclosporine [ Restasis] 0.05% Eye Drops 1 each OU BID [facility] Last Admin: 09/11/17 22:25 Dose: 1 each Nystatin (Nystop Powder -) 1 applic TP BID [facility] Last Admin: 09/11/17 22:25 Dose: 1 applic Nystatin (Nystatin Oral Suspension -) 500,000 units PO TID [facility] Last Admin: 09/11/17 22:25 Dose: 500,000 units Pantoprazole Sodium (Protonix -) 40 mg PO DAILY [facility] Last Admin: 09/11/17 10:55 Dose: 40 mg Polyethylene Glycol (Miralax (For Daily Use) -) 17 gm PO DAILY [facility] Last Admin: 09/11/17 11:10 Dose: 17 grams Rosuvastatin Calcium (Crestor -) 10 mg PO HS [facility] Last Admin: 09/11/17 22:25 Dose: 10 mg Senna (Senna -) 1 tab PO BID [facility] Last Admin: 09/11/17 22:28 Dose: 1 tab Sodium Chloride ([place] Nasal [place] -) 2 spray NS BID [facility] Last Admin: 09/11/17 22:26 Dose: Not Given Valsartan (Diovan -) 160 mg PO DAILY [facility] Last Admin: 09/11/17 10:55 Dose: 160 mg - Objective Vital Signs: Vital Signs Temperature 98.3 F 09/11/17 20:55 Pulse Rate 95 H 09/11/17 20:55 Respiratory Rate 20 09/11/17 20:55 Blood Pressure 139/80 09/11/17 20:55 O2 Sat by Pulse Oximetry (%) 95 09/11/17 12:35 Constitutional: Yes: Well Nourished Eyes: Yes: Other ((+) rt conjunctival hemorrhage) Neck: Yes: WNL, Supple Cardiovascular: Yes: WNL, Regular Rate and Rhythm Respiratory: Yes: Wheezes Gastrointestinal: Yes: WNL, Normal Bowel Sounds, Soft, Abdomen, Obese Extremities: Yes: Other ((+) ecchymosis) Edema: No Labs: CBC, BMP 09/09/17 06:50 09/09/17 06:50 INR, PTT INR 3.22 (0.82-1.09) H 09/11/17 07:20 Problem List - Problems (1) COPD exacerbation Assessment/Plan: Cont higher dose of IV steroid Cont nebulizers/spiriva/symbicort Ventimask prn Code(s): J44.1 - CHRONIC OBSTRUCTIVE PULMONARY DISEASE W (ACUTE) EXACERBATION (2) Chronic diastolic (congestive) heart failure Assessment/Plan: Cont lasix Monitor electrolytes Code(s): I50.32 - CHRONIC DIASTOLIC (CONGESTIVE) HEART FAILURE (3) History of pulmonary embolism Assessment/Plan: Monitor PT/inr Adjust coumadin dose accordingly Code(s): Z86.711 - PERSONAL HISTORY OF PULMONARY EMBOLISM (4) Hypertension Assessment/Plan: BP stable Cont procardia/diovan Code(s): I10 - ESSENTIAL (PRIMARY) HYPERTENSION (5) Coronary artery disease Code(s): I25.10 - ATHSCL HEART DISEASE OF [place] CORONARY ARTERY W/O ANG PCTRS (6) HLD (hyperlipidemia) Code(s): E78.5 - HYPERLIPIDEMIA, UNSPECIFIED (7) Hemorrhoid Assessment/Plan: Cont anusol Code(s): K64.9 - UNSPECIFIED HEMORRHOIDS (8) Conjunctival hemorrhage of right eye Assessment/Plan: Cont to monitor Code(s): H11.31 - CONJUNCTIVAL HEMORRHAGE, RIGHT EYE (9) Morbid obesity Code(s): E66.01 - MORBID (SEVERE) OBESITY DUE TO EXCESS CALORIES (10) Pulmonary embolus Code(s): I26.99 - OTHER PULMONARY EMBOLISM WITHOUT ACUTE COR PULMONALE (11) DVT (deep venous thrombosis) Code(s): I82.409 - ACUTE EMBOLISM AND THOMBOS UNSP DEEP VN UNSP LOWER EXTREMITY
[2017-09-12] MEDS: methylPREDNISolone NA SUCC 40 MG/1 ML VIAL IVPUSH SCH ×3 (03:18→18:24)
[2017-09-12] MEDS: ALBUTEROL SO4 0.083% IH SOL 2.5 MG/3 ML VIAL.NEB. NEB PRN ×3 (06:30→21:40)
[2017-09-12] MEDS: FUROSEMIDE 40 MG TABLET (FP) PO SCH ×2 (06:46→14:12)
[2017-09-12] MEDS: NYSTATIN 500,000 UNITS/5 ML SUSPENSION PO SCH ×3 (06:46→22:20)
[2017-09-12] MEDS: INSULIN SLIDING SCALE (NOVOLOG) 1 VIAL SQ SCH ×4 (06:49→22:21)
[2017-09-12 07:09] LABS: MCH 22.7 pg (25.7-33.7); MCHC 28.6 g/dl (32.0-36.0); MEAN CELL VOLUME 79.5 fl (80-96); MEAN PLT VOLUME 8.5 fl (7.5-11.1); PLATELET COUNT 97 K/MM3 (134-434); RDW 16.7 % (11.6-15.6); WHITE BLOOD COUNT 17.7 K/mm3 (4.0-10.0)
[2017-09-12 07:21] LABS: INR 2.82 (0.82-1.09); PROTHROMBIN TIME (PATIENT) 31.9 SEC (9.98-11.88)
[2017-09-12] MEDS: FERROUS SO4 325 MG TABLET (FP) PO SCH ×2 (08:32→12:02)
--- NOTE | 2017-09-12 09:21 | PN ---
Progress Note, Physician History of Present Illness: Well known to out service: 67F, former smoker with severe COPD, history of PE on coumadin, mild non-obstx CAD, HTN, chronic diastolic CHF admitted again with increased PRIMO, wheezing, cough. Received IV steroids in ER wih improvement in sx. She has chronic PICKERING, chronic chest pain associated w/ cough; recently discharged from rehab. Denies fever or chills. No syncope. No palps. + edema b/l CXR showed mildly increased PVC. - Current Medication List Current Medications: Active Medications Acetaminophen (Tylenol -) 1,000 mg PO Q8H PRN PRN Reason: PAIN Albuterol Sulfate (Ventolin 0.083% Nebulizer Soln -) 1 amp NEB Q4H PRN PRN Reason: SHORT OF BREATH/WHEEZING Last Admin: 09/12/17 06:30 Dose: 1 amp Aspirin (Asa -) 81 mg PO DAILY [facility] Last Admin: 09/11/17 10:55 Dose: 81 mg Budesonide/Formoterol Fumarate (Symbicort 160/4.5mcg -) 1 puff IH BID [facility] Last Admin: 09/11/17 22:26 Dose: 1 puff Cholecalciferol (Vitamin D3 -) 2,000 unit PO DAILY [facility] Last Admin: 09/11/17 10:55 Dose: 2,000 unit Ferrous Sulfate (Feosol -) 325 mg PO TIDCM [facility] Last Admin: 09/12/17 08:32 Dose: 325 mg Furosemide (Lasix -) 40 mg PO BID@0600,1400 [facility] Last Admin: 09/12/17 06:46 Dose: 40 mg Furosemide (Lasix Injection -) 20 mg IVPUSH ONCE PRN PRN Reason: SHORTNESS OF BREATH Last Admin: 09/05/17 22:23 Dose: 20 mg Insulin Aspart (Novolog Vial Sliding Scale -) 1 vial SQ ACHS [facility] PRN Reason: Protocol Last Admin: 09/12/17 06:49 Dose: 4 units Lidocaine (Lidoderm Patch -) 2 patch TP DAILY [facility] Last Admin: 09/11/17 10:59 Dose: 2 patch Meclizine HCl (Antivert -) 12.5 mg PO BID [facility] Last Admin: 09/11/17 22:25 Dose: 12.5 mg Methylprednisolone Sodium Succinate (Solu-Medrol -) 60 mg IVPUSH Q8H-IV [facility] Last Admin: 09/12/17 03:18 Dose: 60 mg Miscellaneous (Lidoderm Patch Removal) 1 each MC DAILY@2200 [facility] Last Admin: 09/11/17 22:25 Dose: 1 each Nifedipine (Procardia Xl -) 30 mg PO DAILY [facility] Last Admin: 09/11/17 10:55 Dose: 30 mg Cyclosporine [ Restasis] 0.05% Eye Drops 1 each OU BID [facility] Last Admin: 09/11/17 22:25 Dose: 1 each Nystatin (Nystop Powder -) 1 applic TP BID [facility] Last Admin: 09/11/17 22:25 Dose: 1 applic Nystatin (Nystatin Oral Suspension -) 500,000 units PO TID [facility] Last Admin: 09/12/17 06:46 Dose: 500,000 units Pantoprazole Sodium (Protonix -) 40 mg PO DAILY [facility] Last Admin: 09/11/17 10:55 Dose: 40 mg Polyethylene Glycol (Miralax (For Daily Use) -) 17 gm PO DAILY [facility] Last Admin: 09/11/17 11:10 Dose: 17 grams Rosuvastatin Calcium (Crestor -) 10 mg PO HS [facility] Last Admin: 09/11/17 22:25 Dose: 10 mg Senna (Senna -) 1 tab PO BID [facility] Last Admin: 09/11/17 22:28 Dose: 1 tab Sodium Chloride ([place] Nasal [place] -) 2 spray NS BID [facility] Last Admin: 09/11/17 22:26 Dose: Not Given Valsartan (Diovan -) 160 mg PO DAILY [facility] Last Admin: 09/11/17 10:55 Dose: 160 mg - Objective Vital Signs: Vital Signs Temperature 98.2 F 09/12/17 06:00 Pulse Rate 97 H 09/12/17 06:00 Respiratory Rate 20 09/12/17 06:00 Blood Pressure 132/62 09/12/17 06:00 O2 Sat by Pulse Oximetry (%) 99 09/11/17 21:00 Eyes: Yes: WNL, Conjunctiva Clear, EOM Intact HENT: Yes: WNL, Atraumatic, Normocephalic Neck: Yes: WNL, Supple, Trachea Midline Cardiovascular: Yes: WNL, Regular Rate and Rhythm Respiratory: Yes: WNL, Regular, Wheezes Gastrointestinal: Yes: WNL, Normal Bowel Sounds Genitourinary: Yes: WNL Musculoskeletal: Yes: WNL Extremities: Yes: WNL Edema: Yes Edema: LLE: Trace, RLE: Trace Integumentary: Yes: WNL Neurological: Yes: WNL, Alert, Oriented ...Motor Strength: WNL Psychiatric: Yes: WNL Labs: CBC, BMP 09/12/17 06:00 09/09/17 06:50 INR, PTT INR 2.82 (0.82-1.09) H 09/12/17 06:00 Assessment/Plan AECOPD Acute on chronic diastolic CHF, mild exacerbation History of PE on coumadin REC: 1. CHF: mildly decompensated acute on chronic diastolic CHF -Mild CAD on recent cath -Recent echo in February with normal LV function -Will switch Lasix to 40mg IV daily -Ordered for both Alondra and Ana, will hold one for now -Daily weights, low sodium diet 2. AECOPD: -As per PMD and pulmonary -She also has chronic PHTN due to COPD which leads to right sided CHF symptoms 3. History of PEs on coumadin: Coumadin on hold
[2017-09-12] MEDS ORDERED: PT OWN MED DRAWER 7, Y5N ONE (10:26)
[2017-09-12] MEDS: ASPIRIN 81 MG CHEWABLE TABLETS PO SCH ×2 (10:46→11:15)
[2017-09-12] MEDS: LIDOCAINE 5% TOPICAL PATCH TP SCH ×2 (10:46→11:15)
[2017-09-12] MEDS: VALSARTAN 160 MG TABLET (UD) PO SCH ×2 (10:46→11:14)
[2017-09-12] MEDS: NIFEdipine E.R. 30 MG TABLET (FP) PO SCH (10:46)
[2017-09-12] MEDS: PANTOPRAZOLE 40 MG TABLET (FP) PO SCH ×2 (10:46→11:15)
[2017-09-12] MEDS: CHOLECALCIFEROL (VITAMIN D3) 1,000 UNIT TABLET (FP) PO SCH ×2 (10:46→11:15)
[2017-09-12] MEDS: MECLIZINE HCL 12.5 MG TABLET PO SCH ×3 (10:47→22:20)
[2017-09-12] MEDS: SENNOSIDES 8.6MG TABLET (FP) PO SCH ×3 (10:47→22:21)
[2017-09-12] MEDS: NYSTATIN POWDER 100,000 UNITS/GM - 15 GM TOPICAL POWDER TP SCH ×2 (11:23→22:24)
[2017-09-12] MEDS: POLYETHYLENE GLYCOL 3350 119 GM BTL PO SCH (11:23)
[2017-09-12] MEDS: PHENYLEPH/MINERAL OIL/PETROLAT 28 GM OINTMENT RC SCH ×2 (11:25→22:45)
[2017-09-12] MEDS: SODIUM CHLORIDE NASAL SPRAY 44 ML BOTTLE NS SCH ×2 (11:25→23:21)
[2017-09-12] MEDS: BUDESONIDE/FORMETEROL FUMARATE 160/4.5 mcg INHALER IH SCH ×2 (12:02→23:20)
--- NOTE | 2017-09-12 12:58 | PN ---
Progress Note (short form) - Note Progress Note: Seen in follow up. No new complaints. Meds reviewed. Current Medications Generic Name Dose Route Start Last Admin Trade Name Freq PRN Reason Stop Dose Admin Acetaminophen 1,000 mg 09/06/17 14:52 Tylenol - PO Q8H PRN PAIN Albuterol Sulfate 1 amp 09/11/17 06:27 09/12/17 10:14 Ventolin 0.083% Nebulizer Soln - NEB 1 amp Q4H PRN Administration SHORT OF BREATH/WHEEZING Aspirin 81 mg 08/21/17 10:00 09/12/17 11:15 Asa - PO 81 mg DAILY [facility] Administration Budesonide/Formoterol Fumarate 1 puff 08/21/17 10:00 09/12/17 12:02 Symbicort 160/4.5mcg - IH 1 puff BID [facility] Administration Cholecalciferol 2,000 unit 08/21/17 10:00 09/12/17 11:15 Vitamin D3 - PO 2,000 unit DAILY [facility] Administration Furosemide 40 mg 09/01/17 14:00 09/12/17 06:46 Lasix - PO 40 mg BID@0600,1400 [facility] Administration Furosemide 20 mg 09/05/17 12:16 09/05/17 22:23 Lasix Injection - IVPUSH 20 mg ONCE PRN Administration SHORTNESS OF BREATH Insulin Aspart 1 vial 08/21/17 07:00 09/12/17 11:46 Novolog Vial Sliding Scale - SQ 6 units ACHS [facility] Administration Protocol Lidocaine 2 patch 09/06/17 14:53 09/12/17 11:15 Lidoderm Patch - TP 2 patch DAILY [facility] Administration Meclizine HCl 12.5 mg 08/21/17 10:00 09/12/17 11:15 Antivert - PO 12.5 mg BID [facility] Administration Methylprednisolone Sodium Succinate 60 mg 09/10/17 18:00 09/12/17 10:47 Solu-Medrol - IVPUSH 60 mg Q8H-IV [facility] Administration Miscellaneous 1 each 09/04/17 22:00 09/11/17 22:25 Lidoderm Patch Removal MC 1 each DAILY@2200 [facility] Administration Nifedipine 30 mg 08/21/17 10:00 09/12/17 10:46 Procardia Xl - PO 30 mg DAILY [facility] Administration Cyclosporine [ 1 each 08/29/17 22:00 09/12/17 11:24 Restasis] 0.05% Eye OU 1 each Drops BID [facility] Administration Nystatin 1 applic 08/21/17 22:00 09/12/17 11:23 Nystop Powder - TP 1 applic BID [facility] Administration Nystatin 500,000 units 08/26/17 22:00 09/12/17 06:46 Nystatin Oral Suspension - PO 500,000 units TID [facility] Administration Pantoprazole Sodium 40 mg 08/21/17 10:00 09/12/17 11:15 Protonix - PO 40 mg DAILY [facility] Administration Polyethylene Glycol 17 gm 09/03/17 04:00 09/12/17 11:23 Miralax (For Daily Use) - PO Not Given DAILY [facility] Rosuvastatin Calcium 10 mg 08/21/17 22:00 09/11/17 22:25 Crestor - PO 10 mg HS [facility] Administration Senna 1 tab 08/23/17 22:00 09/12/17 11:15 Senna - PO 1 tab BID [facility] Administration Sodium Chloride 2 spray 08/27/17 22:00 09/12/17 11:25 [place] Nasal [place] - NS Not Given BID [facility] Valsartan 160 mg 08/21/17 10:00 09/12/17 11:14 Diovan - PO 160 mg DAILY [facility] Administration On exam: Last Vital Signs Temp Pulse Resp BP Pulse Ox 98.2 F 108 H 20 139/58 99 09/12/17 06:00 09/12/17 11:13 09/12/17 11:13 09/12/17 11:13 09/12/17 10:14 General: Looks well, sitting in bed, obese++ Extremities: No pallor, no icterus. Chest: breathing comfortably, clear to auscultation CVS: S1, S2, no gallop or murmur. Abdomen: Soft, no organomegaly, no masses. Neuro: Alert, oriented, non-focal. Skin: Multiple large ecchymoses. CBC, BMP 09/12/17 06:00 09/09/17 06:50 Assessment. COPD - with acute exacerbation - stable/improved History of thromboembolic disease with ongoing recommendation for anticoagulation - coumadin currently held due to supratherapeutic INR, with large UE hematoma and conjunctival hemorrhage. Today INR < 3. Can re-institute warfarin 3mgs daily. Continue to monitor INR. Anemia, possibly exacerbated by SQ hemorrhage. Not iron deficient - stop oral iron - causing constipation. Will actively follow. Thrombocytopenia - worsening - unclear etiology. Will review peripheral smear.
--- NOTE | 2017-09-12 14:02 | PN ---
Progress Note (short form) - Note Progress Note: PULMONARY RESTING COMFORTABLY VSS/AFEBRILE ANICTERIC SCATTERED B/L RHONCHI/EXP WHEEZE S1S2 BS+ OBESE NO ANKLE EDEMA LABS/MEDS/NOTES/IMAGING REVIEWED IMP ACUTE ON CHRONIC HYPOXEMIC/HYPERCAPNEIC RESPIRATORY FAILURE END STAGE COPD O2 DEPENDENT WITH ACUTE EXACERBATION URI DIASTOLIC HF PULMONARY HTN H/O RECURRENT PULMONARY EMBOLI HTN MORBID OBESITY ANEMIA S/P TRANSFUSION PLAN IV STEROIDS TAPERING SUPPLEMENTAL O2 VIA VM INHALED BRONCHODILATORS NIPPV NEEDED DIURETICS MONITOR H+H R NICK ADAMS
--- NOTE | 2017-09-12 16:58 | PN ---
Progress Note, Physician History of Present Illness: says she is breathing better no new issues - Current Medication List Current Medications: Active Medications Acetaminophen (Tylenol -) 1,000 mg PO Q8H PRN PRN Reason: PAIN Albuterol Sulfate (Ventolin 0.083% Nebulizer Soln -) 1 amp NEB Q4H PRN PRN Reason: SHORT OF BREATH/WHEEZING Last Admin: 09/12/17 10:14 Dose: 1 amp Aspirin (Asa -) 81 mg PO DAILY [facility] Last Admin: 09/12/17 11:15 Dose: 81 mg Budesonide/Formoterol Fumarate (Symbicort 160/4.5mcg -) 1 puff IH BID [facility] Last Admin: 09/12/17 12:02 Dose: 1 puff Cholecalciferol (Vitamin D3 -) 2,000 unit PO DAILY [facility] Last Admin: 09/12/17 11:15 Dose: 2,000 unit Furosemide (Lasix -) 40 mg PO BID@0600,1400 [facility] Last Admin: 09/12/17 14:12 Dose: 40 mg Furosemide (Lasix Injection -) 20 mg IVPUSH ONCE PRN PRN Reason: SHORTNESS OF BREATH Last Admin: 09/05/17 22:23 Dose: 20 mg Insulin Aspart (Novolog Vial Sliding Scale -) 1 vial SQ ACHS [facility] PRN Reason: Protocol Last Admin: 09/12/17 11:46 Dose: 6 units Lidocaine (Lidoderm Patch -) 2 patch TP DAILY [facility] Last Admin: 09/12/17 11:15 Dose: 2 patch Meclizine HCl (Antivert -) 12.5 mg PO BID [facility] Last Admin: 09/12/17 11:15 Dose: 12.5 mg Methylprednisolone Sodium Succinate (Solu-Medrol -) 40 mg IVPUSH Q8H-IV [facility] Miscellaneous (Lidoderm Patch Removal) 1 each MC DAILY@2200 [facility] Last Admin: 09/11/17 22:25 Dose: 1 each Nifedipine (Procardia Xl -) 30 mg PO DAILY [facility] Last Admin: 09/12/17 10:46 Dose: 30 mg Cyclosporine [ Restasis] 0.05% Eye Drops 1 each OU BID [facility] Last Admin: 09/12/17 11:24 Dose: 1 each Nystatin (Nystop Powder -) 1 applic TP BID [facility] Last Admin: 09/12/17 11:23 Dose: 1 applic Nystatin (Nystatin Oral Suspension -) 500,000 units PO TID [facility] Last Admin: 09/12/17 14:12 Dose: 500,000 units Pantoprazole Sodium (Protonix -) 40 mg PO DAILY [facility] Last Admin: 09/12/17 11:15 Dose: 40 mg Polyethylene Glycol (Miralax (For Daily Use) -) 17 gm PO DAILY [facility] Last Admin: 09/12/17 11:23 Dose: Not Given Rosuvastatin Calcium (Crestor -) 10 mg PO HS [facility] Last Admin: 09/11/17 22:25 Dose: 10 mg Senna (Senna -) 1 tab PO BID [facility] Last Admin: 09/12/17 11:15 Dose: 1 tab Sodium Chloride ([place] Nasal [place] -) 2 spray NS BID [facility] Last Admin: 09/12/17 11:25 Dose: Not Given Valsartan (Diovan -) 160 mg PO DAILY [facility] Last Admin: 09/12/17 11:14 Dose: 160 mg - Objective Vital Signs: Vital Signs Temperature 98.6 F 09/12/17 14:10 Pulse Rate 97 H 09/12/17 14:10 Respiratory Rate 20 09/12/17 14:10 Blood Pressure 114/69 09/12/17 14:10 O2 Sat by Pulse Oximetry (%) 99 09/12/17 10:14 Constitutional: Yes: Calm, Mild Distress, Obese Cardiovascular: Yes: S1, S2 Gastrointestinal: Yes: Normal Bowel Sounds, Soft Musculoskeletal: Yes: WNL Extremities: Yes: WNL Neurological: Yes: Alert, Oriented Psychiatric: Yes: Alert Labs: CBC, BMP 09/12/17 06:00 09/09/17 06:50 INR, PTT INR 2.82 (0.82-1.09) H 09/12/17 06:00 Assessment/Plan Problem List - Problems (1) SOB (shortness of breath) Code(s): R06.02 - SHORTNESS OF BREATH (2) Acute on chronic respiratory failure with hypoxia and hypercapnia Code(s): J96.21 - ACUTE AND CHRONIC RESPIRATORY FAILURE WITH HYPOXIA J96.22 - ACUTE AND CHRONIC RESPIRATORY FAILURE WITH HYPERCAPNIA (3) Anemia Code(s): D64.9 - ANEMIA, UNSPECIFIED (4) CHF (congestive heart failure) Code(s): I50.9 - HEART FAILURE, UNSPECIFIED (5) COPD exacerbation Code(s): J44.1 - CHRONIC OBSTRUCTIVE PULMONARY DISEASE W (ACUTE) EXACERBATION (6) Chronic diastolic (congestive) heart failure Code(s): I50.32 - CHRONIC DIASTOLIC (CONGESTIVE) HEART FAILURE (7) Coronary artery disease Code(s): I25.10 - ATHSCL HEART DISEASE OF [place] CORONARY ARTERY W/O ANG PCTRS (8) History of pulmonary embolism Code(s): Z86.711 - PERSONAL HISTORY OF PULMONARY EMBOLISM (9) Morbid obesity Code(s): E66.01 - MORBID (SEVERE) OBESITY DUE TO EXCESS CALORIES (10) Pulmonary hypertension Code(s): I27.2 - OTHER SECONDARY PULMONARY HYPERTENSION * DO NOT USE * plan continue resp support monitor the bruise on the hand rest as per primary team and pul
[2017-09-12] MEDS ORDERED: INSULIN (NOVOLOG) ASPART 100 UNITS/ML 10ML VIAL ONE (17:58)
[2017-09-12] MEDS: ROSUVASTATIN CA 10 MG TABLET (FP) PO SCH (22:20)
[2017-09-12] MEDS: LIDOCAINE PATCH REMOVAL MC SCH (23:22)
--- NOTE | 2017-09-12 23:48 | PN ---
Progress Note, Physician History of Present Illness: No new changes. - Current Medication List Current Medications: Active Medications Acetaminophen (Tylenol -) 1,000 mg PO Q8H PRN PRN Reason: PAIN Albuterol Sulfate (Ventolin 0.083% Nebulizer Soln -) 1 amp NEB Q4H PRN PRN Reason: SHORT OF BREATH/WHEEZING Last Admin: 09/12/17 21:40 Dose: 1 amp Aspirin (Asa -) 81 mg PO DAILY [facility] Last Admin: 09/12/17 11:15 Dose: 81 mg Budesonide/Formoterol Fumarate (Symbicort 160/4.5mcg -) 1 puff IH BID [facility] Last Admin: 09/12/17 23:20 Dose: 1 puff Cholecalciferol (Vitamin D3 -) 2,000 unit PO DAILY [facility] Last Admin: 09/12/17 11:15 Dose: 2,000 unit Furosemide (Lasix -) 40 mg PO BID@0600,1400 [facility] Last Admin: 09/12/17 14:12 Dose: 40 mg Furosemide (Lasix Injection -) 20 mg IVPUSH ONCE PRN PRN Reason: SHORTNESS OF BREATH Last Admin: 09/05/17 22:23 Dose: 20 mg Insulin Aspart (Novolog Vial Sliding Scale -) 1 vial SQ ACHS [facility] PRN Reason: Protocol Last Admin: 09/12/17 22:21 Dose: 8 units Lidocaine (Lidoderm Patch -) 2 patch TP DAILY [facility] Last Admin: 09/12/17 11:15 Dose: 2 patch Meclizine HCl (Antivert -) 12.5 mg PO BID [facility] Last Admin: 09/12/17 22:20 Dose: 12.5 mg Methylprednisolone Sodium Succinate (Solu-Medrol -) 40 mg IVPUSH Q8H-IV [facility] Last Admin: 09/12/17 18:24 Dose: 40 mg Miscellaneous (Lidoderm Patch Removal) 1 each MC DAILY@2200 [facility] Last Admin: 09/12/17 23:22 Dose: 1 each Nifedipine (Procardia Xl -) 30 mg PO DAILY [facility] Last Admin: 09/12/17 10:46 Dose: 30 mg Cyclosporine [ Restasis] 0.05% Eye Drops 1 each OU BID [facility] Last Admin: 09/12/17 23:22 Dose: 1 each Nystatin (Nystop Powder -) 1 applic TP BID [facility] Last Admin: 09/12/17 22:24 Dose: 1 applic Nystatin (Nystatin Oral Suspension -) 500,000 units PO TID [facility] Last Admin: 09/12/17 22:20 Dose: 500,000 units Pantoprazole Sodium (Protonix -) 40 mg PO DAILY [facility] Last Admin: 09/12/17 11:15 Dose: 40 mg Polyethylene Glycol (Miralax (For Daily Use) -) 17 gm PO DAILY [facility] Last Admin: 09/12/17 11:23 Dose: Not Given Rosuvastatin Calcium (Crestor -) 10 mg PO HS [facility] Last Admin: 09/12/17 22:20 Dose: 10 mg Senna (Senna -) 1 tab PO BID [facility] Last Admin: 09/12/17 22:21 Dose: 1 tab Sodium Chloride ([place] Nasal [place] -) 2 spray NS BID [facility] Last Admin: 09/12/17 23:21 Dose: Not Given Valsartan (Diovan -) 160 mg PO DAILY [facility] Last Admin: 09/12/17 11:14 Dose: 160 mg - Objective Vital Signs: Vital Signs Temperature 98.7 F 09/12/17 19:02 Pulse Rate 92 H 09/12/17 19:02 Respiratory Rate 20 09/12/17 19:02 Blood Pressure 115/64 09/12/17 19:02 O2 Sat by Pulse Oximetry (%) 99 09/12/17 10:14 Constitutional: Yes: Well Nourished Eyes: Yes: Other ((+) improvement in rt conjunctival hemorrhage) Neck: Yes: WNL, Supple Cardiovascular: Yes: WNL, Regular Rate and Rhythm Respiratory: Yes: Wheezes Gastrointestinal: Yes: WNL, Normal Bowel Sounds, Soft, Abdomen, Obese Extremities: Yes: Other ((+) ecchymosis) Edema: LLE: Trace, RLE: Trace Labs: CBC, BMP 09/12/17 06:00 09/09/17 06:50 INR, PTT INR 2.82 (0.82-1.09) H 09/12/17 06:00 Problem List - Problems (1) COPD exacerbation Code(s): J44.1 - CHRONIC OBSTRUCTIVE PULMONARY DISEASE W (ACUTE) EXACERBATION (2) Chronic diastolic (congestive) heart failure Code(s): I50.32 - CHRONIC DIASTOLIC (CONGESTIVE) HEART FAILURE (3) History of pulmonary embolism Code(s): Z86.711 - PERSONAL HISTORY OF PULMONARY EMBOLISM (4) Hypertension Code(s): I10 - ESSENTIAL (PRIMARY) HYPERTENSION (5) Coronary artery disease Code(s): I25.10 - ATHSCL HEART DISEASE OF [place] CORONARY ARTERY W/O ANG PCTRS (6) HLD (hyperlipidemia) Code(s): E78.5 - HYPERLIPIDEMIA, UNSPECIFIED (7) Hemorrhoid Code(s): K64.9 - UNSPECIFIED HEMORRHOIDS (8) Conjunctival hemorrhage of right eye Code(s): H11.31 - CONJUNCTIVAL HEMORRHAGE, RIGHT EYE (9) Morbid obesity Code(s): E66.01 - MORBID (SEVERE) OBESITY DUE TO EXCESS CALORIES (10) Pulmonary embolus Code(s): I26.99 - OTHER PULMONARY EMBOLISM WITHOUT ACUTE COR PULMONALE (11) DVT (deep venous thrombosis) Code(s): I82.409 - ACUTE EMBOLISM AND THOMBOS UNSP DEEP VN UNSP LOWER EXTREMITY
[2017-09-13] MEDS: methylPREDNISolone NA SUCC 40 MG/1 ML VIAL IVPUSH SCH ×3 (02:36→18:28)
[2017-09-13] MEDS: INSULIN SLIDING SCALE (NOVOLOG) 1 VIAL SQ SCH ×4 (06:34→23:05)
[2017-09-13] MEDS: NYSTATIN 500,000 UNITS/5 ML SUSPENSION PO SCH ×3 (06:34→23:02)
[2017-09-13] MEDS: FUROSEMIDE 40 MG TABLET (FP) PO SCH ×2 (06:34→14:00)
[2017-09-13] MEDS: ALBUTEROL SO4 0.083% IH SOL 2.5 MG/3 ML VIAL.NEB. NEB PRN ×3 (06:48→22:16)
[2017-09-13] MEDS ORDERED: INSULIN (NOVOLOG) ASPART 100 UNITS/ML 10ML VIAL ONE (07:10)
[2017-09-13 08:20] LABS: BASOPHIL 0.2 % (0-2.0); MCH 22.7 pg (25.7-33.7); MCHC 28.4 g/dl (32.0-36.0); MEAN CELL VOLUME 80.2 fl (80-96); MEAN PLT VOLUME 9.3 fl (7.5-11.1); NEUTROPHILS 94.3 % (42.8-82.8); PLATELET COUNT 109 K/MM3 (134-434); RDW 16.9 % (11.6-15.6); WHITE BLOOD COUNT 19.7 K/mm3 (4.0-10.0)
[2017-09-13 08:38] LABS: INR 2.19 (0.82-1.09); PROTHROMBIN TIME (PATIENT) 24.8 SEC (9.98-11.88)
--- NOTE | 2017-09-13 09:35 | PN ---
Progress Note, Physician History of Present Illness: Well known to out service: 67F, former smoker with severe COPD, history of PE on coumadin, mild non-obstx CAD, HTN, chronic diastolic CHF admitted again with increased PRIMO, wheezing, cough. Received IV steroids in ER wih improvement in sx. She has chronic PICKERING, chronic chest pain associated w/ cough; recently discharged from rehab. Denies fever or chills. No syncope. No palps. + edema b/l CXR showed mildly increased PVC. - Current Medication List Current Medications: Active Medications Acetaminophen (Tylenol -) 1,000 mg PO Q8H PRN PRN Reason: PAIN Albuterol Sulfate (Ventolin 0.083% Nebulizer Soln -) 1 amp NEB Q4H PRN PRN Reason: SHORT OF BREATH/WHEEZING Last Admin: 09/13/17 06:48 Dose: 1 amp Aspirin (Asa -) 81 mg PO DAILY [facility] Last Admin: 09/12/17 11:15 Dose: 81 mg Budesonide/Formoterol Fumarate (Symbicort 160/4.5mcg -) 1 puff IH BID [facility] Last Admin: 09/12/17 23:20 Dose: 1 puff Cholecalciferol (Vitamin D3 -) 2,000 unit PO DAILY [facility] Last Admin: 09/12/17 11:15 Dose: 2,000 unit Furosemide (Lasix -) 40 mg PO BID@0600,1400 [facility] Last Admin: 09/13/17 06:34 Dose: 40 mg Furosemide (Lasix Injection -) 20 mg IVPUSH ONCE PRN PRN Reason: SHORTNESS OF BREATH Last Admin: 09/05/17 22:23 Dose: 20 mg Insulin Aspart (Novolog Vial Sliding Scale -) 1 vial SQ ACHS [facility] PRN Reason: Protocol Last Admin: 09/13/17 06:34 Dose: 6 units Lidocaine (Lidoderm Patch -) 2 patch TP DAILY [facility] Last Admin: 09/12/17 11:15 Dose: 2 patch Meclizine HCl (Antivert -) 12.5 mg PO BID [facility] Last Admin: 09/12/17 22:20 Dose: 12.5 mg Methylprednisolone Sodium Succinate (Solu-Medrol -) 40 mg IVPUSH Q8H-IV [facility] Last Admin: 09/13/17 02:36 Dose: 40 mg Miscellaneous (Lidoderm Patch Removal) 1 each MC DAILY@2200 [facility] Last Admin: 09/12/17 23:22 Dose: 1 each Nifedipine (Procardia Xl -) 30 mg PO DAILY [facility] Last Admin: 09/12/17 10:46 Dose: 30 mg Cyclosporine [ Restasis] 0.05% Eye Drops 1 each OU BID [facility] Last Admin: 09/12/17 23:22 Dose: 1 each Nystatin (Nystop Powder -) 1 applic TP BID [facility] Last Admin: 09/12/17 22:24 Dose: 1 applic Nystatin (Nystatin Oral Suspension -) 500,000 units PO TID [facility] Last Admin: 09/13/17 06:34 Dose: 500,000 units Pantoprazole Sodium (Protonix -) 40 mg PO DAILY [facility] Last Admin: 09/12/17 11:15 Dose: 40 mg Polyethylene Glycol (Miralax (For Daily Use) -) 17 gm PO DAILY [facility] Last Admin: 09/12/17 11:23 Dose: Not Given Rosuvastatin Calcium (Crestor -) 10 mg PO HS [facility] Last Admin: 09/12/17 22:20 Dose: 10 mg Senna (Senna -) 1 tab PO BID [facility] Last Admin: 09/12/17 22:21 Dose: 1 tab Sodium Chloride ([place] Nasal [place] -) 2 spray NS BID [facility] Last Admin: 09/12/17 23:21 Dose: Not Given Valsartan (Diovan -) 160 mg PO DAILY [facility] Last Admin: 09/12/17 11:14 Dose: 160 mg - Objective Vital Signs: Vital Signs Temperature 98.7 F 09/12/17 19:02 Pulse Rate 92 H 09/12/17 19:02 Respiratory Rate 21 09/12/17 22:00 Blood Pressure 120/75 09/12/17 22:00 O2 Sat by Pulse Oximetry (%) 99 09/12/17 21:00 Eyes: Yes: WNL, Conjunctiva Clear, EOM Intact HENT: Yes: WNL, Atraumatic, Normocephalic Neck: Yes: WNL, Supple, Trachea Midline Cardiovascular: Yes: WNL, Regular Rate and Rhythm Respiratory: Yes: Wheezes Gastrointestinal: Yes: WNL, Normal Bowel Sounds Genitourinary: Yes: WNL Musculoskeletal: Yes: WNL Extremities: Yes: WNL Edema: No Integumentary: Yes: WNL Neurological: Yes: WNL, Alert, Oriented ...Motor Strength: WNL Psychiatric: Yes: WNL Labs: CBC, BMP 09/13/17 06:20 09/09/17 06:50 INR, PTT INR 2.19 (0.82-1.09) H 09/13/17 06:20 Assessment/Plan AECOPD Acute on chronic diastolic CHF, mild exacerbation History of PE on coumadin REC: 1. CHF: mildly decompensated acute on chronic diastolic CHF -Mild CAD on recent cath -Recent echo in February with normal LV function -Will switch Lasix to 40mg IV daily -Ordered for both Benicar and Diovan, will hold one for now -Daily weights, low sodium diet 2. AECOPD: -As per PMD and pulmonary -She also has chronic PHTN due to COPD which leads to right sided CHF symptoms 3. History of PEs on coumadin: Coumadin on hold
[2017-09-13] MEDS ORDERED: PT OWN MED DRAWER 7, Y5N ONE (10:48)
[2017-09-13] MEDS: ASPIRIN 81 MG CHEWABLE TABLETS PO SCH (10:55)
[2017-09-13] MEDS: NIFEdipine E.R. 30 MG TABLET (FP) PO SCH (10:55)
[2017-09-13] MEDS: VALSARTAN 160 MG TABLET (UD) PO SCH (10:55)
[2017-09-13] MEDS: BUDESONIDE/FORMETEROL FUMARATE 160/4.5 mcg INHALER IH SCH ×2 (10:55→23:02)
[2017-09-13] MEDS: CHOLECALCIFEROL (VITAMIN D3) 1,000 UNIT TABLET (FP) PO SCH (10:55)
[2017-09-13] MEDS: PANTOPRAZOLE 40 MG TABLET (FP) PO SCH (10:55)
[2017-09-13] MEDS: MECLIZINE HCL 12.5 MG TABLET PO SCH ×2 (10:55→23:02)
[2017-09-13] MEDS: SENNOSIDES 8.6MG TABLET (FP) PO SCH ×2 (10:55→23:02)
[2017-09-13] MEDS: LIDOCAINE 5% TOPICAL PATCH TP SCH (10:56)
[2017-09-13] MEDS: NYSTATIN POWDER 100,000 UNITS/GM - 15 GM TOPICAL POWDER TP SCH ×2 (11:01→23:04)
[2017-09-13] MEDS: PHENYLEPH/MINERAL OIL/PETROLAT 28 GM OINTMENT RC SCH ×2 (11:03→23:04)
[2017-09-13] MEDS: SODIUM CHLORIDE NASAL SPRAY 44 ML BOTTLE NS SCH ×2 (11:03→23:04)
--- NOTE | 2017-09-13 11:22 | PN ---
Progress Note (short form) - Note Progress Note: PULMONARY SUBJECTIVE IMPROVEMENT VSS/AFEBRILE ANICTERIC SCATTERED B/L RHONCHI/EXP WHEEZE S1S2 BS+ OBESE NO ANKLE EDEMA LABS/MEDS/NOTES/IMAGING REVIEWED IMP ACUTE ON CHRONIC HYPOXEMIC/HYPERCAPNEIC RESPIRATORY FAILURE END STAGE COPD O2 DEPENDENT WITH ACUTE EXACERBATION URI DIASTOLIC HF PULMONARY HTN H/O RECURRENT PULMONARY EMBOLI HTN MORBID OBESITY ANEMIA S/P TRANSFUSION PLAN IV STEROIDS TAPERING SUPPLEMENTAL O2 VIA VM INHALED BRONCHODILATORS NIPPV NEEDED DIURETICS MONITOR H+H R NICK ADAMS
[2017-09-13] MEDS: POLYETHYLENE GLYCOL 3350 119 GM BTL PO SCH (12:26)
--- NOTE | 2017-09-13 13:27 | PN ---
Progress Note (short form) - Note Progress Note: Seen in follow up. No new complaints. Breathing improved but still coughing. Meds reviewed. Current Medications Generic Name Dose Route Start Last Admin Trade Name Freq PRN Reason Stop Dose Admin Acetaminophen 1,000 mg 09/06/17 14:52 Tylenol - PO Q8H PRN PAIN Albuterol Sulfate 1 amp 09/11/17 06:27 09/13/17 09:41 Ventolin 0.083% Nebulizer Soln - NEB 1 amp Q4H PRN Administration SHORT OF BREATH/WHEEZING Aspirin 81 mg 08/21/17 10:00 09/13/17 10:55 Asa - PO 81 mg DAILY [facility]IMA Administration Budesonide/Formoterol Fumarate 1 puff 08/21/17 10:00 09/13/17 10:55 Symbicort 160/4.5mcg - IH 1 puff BID [facility]A Administration Cholecalciferol 2,000 unit 08/21/17 10:00 09/13/17 10:55 Vitamin D3 - PO 2,000 unit DAILY [facility] Administration Furosemide 40 mg 09/01/17 14:00 09/13/17 06:34 Lasix - PO 40 mg BID@0600,1400 [facility] Administration Furosemide 20 mg 09/05/17 12:16 09/05/17 22:23 Lasix Injection - IVPUSH 20 mg ONCE PRN Administration SHORTNESS OF BREATH Insulin Aspart 1 vial 08/21/17 07:00 09/13/17 11:53 Novolog Vial Sliding Scale - SQ 4 units ACHS [facility]IMA Administration Protocol Lidocaine 2 patch 09/06/17 14:53 09/13/17 10:56 Lidoderm Patch - TP 2 patch DAILY [facility] Administration Meclizine HCl 12.5 mg 08/21/17 10:00 09/13/17 10:55 Antivert - PO 12.5 mg BID [facility] Administration Methylprednisolone Sodium Succinate 40 mg 09/12/17 14:01 09/13/17 10:56 Solu-Medrol - IVPUSH 40 mg Q8H-IV [facility] Administration Miscellaneous 1 each 09/04/17 22:00 09/12/17 23:22 Lidoderm Patch Removal MC 1 each DAILY@2200 [facility] Administration Nifedipine 30 mg 08/21/17 10:00 09/13/17 10:55 Procardia Xl - PO 30 mg DAILY [facility] Administration Cyclosporine [ 1 each 08/29/17 22:00 09/13/17 11:02 Restasis] 0.05% Eye OU 1 each Drops BID [facility] Administration Nystatin 1 applic 08/21/17 22:00 09/13/17 11:01 Nystop Powder - TP 1 applic BID [facility] Administration Nystatin 500,000 units 08/26/17 22:00 09/13/17 06:34 Nystatin Oral Suspension - PO 500,000 units TID [facility] Administration Pantoprazole Sodium 40 mg 08/21/17 10:00 09/13/17 10:55 Protonix - PO 40 mg DAILY [facility] Administration Polyethylene Glycol 17 gm 09/03/17 04:00 09/13/17 12:26 Miralax (For Daily Use) - PO 17 grams DAILY [facility] Administration Rosuvastatin Calcium 10 mg 08/21/17 22:00 09/12/17 22:20 Crestor - PO 10 mg HS [facility] Administration Senna 1 tab 08/23/17 22:00 09/13/17 10:55 Senna - PO 1 tab BID [facility] Administration Sodium Chloride 2 spray 08/27/17 22:00 09/13/17 11:03 [place] Nasal [place] - NS Not Given BID [facility] Valsartan 160 mg 08/21/17 10:00 09/13/17 10:55 Diovan - PO 160 mg DAILY [facility] Administration On exam: Last Vital Signs Temp Pulse Resp BP Pulse Ox 98.8 F 118 H 20 144/73 95 09/13/17 10:52 09/13/17 10:52 09/13/17 10:52 09/13/17 10:52 09/13/17 09:41 General: Looks well, sitting in bed, obese++ Extremities: No pallor, no icterus. Chest: breathing comfortably, clear to auscultation CVS: S1, S2, no gallop or murmur. Abdomen: Soft, no organomegaly, no masses. Neuro: Alert, oriented, non-focal. Skin: Multiple large ecchymoses. CBC, BMP 09/13/17 06:20 09/09/17 06:50 Assessment. COPD - with acute exacerbation - stable/improved History of thromboembolic disease with ongoing recommendation for anticoagulation - coumadin currently held due to supratherapeutic INR, with large UE hematoma and conjunctival hemorrhage. Today INR < 3 (2nd day). Can re- institute warfarin 3mgs daily. Continue to monitor INR. Anemia, possibly exacerbated by SQ hemorrhage. Not iron deficient - stop oral iron - causing constipation. Will actively follow. Thrombocytopenia - was worsening, but improved today - unclear etiology. Reviewed peripheral smear. yesterday - unremarkable. Continue to monitor.
[2017-09-13] MEDS: WARFARIN NA 3 MG TABLET PO SCH (18:28)
[2017-09-13] MEDS ORDERED: WARFARIN NA 2.5 MG TABLET (FP) PO SCH (19:30)
--- NOTE | 2017-09-13 21:05 | PN ---
Progress Note, Physician History of Present Illness: No new changes. - Current Medication List Current Medications: Active Medications Acetaminophen (Tylenol -) 1,000 mg PO Q8H PRN PRN Reason: PAIN Albuterol Sulfate (Ventolin 0.083% Nebulizer Soln -) 1 amp NEB Q4H PRN PRN Reason: SHORT OF BREATH/WHEEZING Last Admin: 09/13/17 09:41 Dose: 1 amp Aspirin (Asa -) 81 mg PO DAILY [facility] Last Admin: 09/13/17 10:55 Dose: 81 mg Budesonide/Formoterol Fumarate (Symbicort 160/4.5mcg -) 1 puff IH BID [facility] Last Admin: 09/13/17 10:55 Dose: 1 puff Cholecalciferol (Vitamin D3 -) 2,000 unit PO DAILY [facility] Last Admin: 09/13/17 10:55 Dose: 2,000 unit Furosemide (Lasix -) 40 mg PO BID@0600,1400 [facility] Last Admin: 09/13/17 14:00 Dose: 40 mg Furosemide (Lasix Injection -) 20 mg IVPUSH ONCE PRN PRN Reason: SHORTNESS OF BREATH Last Admin: 09/05/17 22:23 Dose: 20 mg Insulin Aspart (Novolog Vial Sliding Scale -) 1 vial SQ ACHS [facility] PRN Reason: Protocol Last Admin: 09/13/17 16:32 Dose: 6 units Lidocaine (Lidoderm Patch -) 2 patch TP DAILY [facility] Last Admin: 09/13/17 10:56 Dose: 2 patch Meclizine HCl (Antivert -) 12.5 mg PO BID [facility] Last Admin: 09/13/17 10:55 Dose: 12.5 mg Methylprednisolone Sodium Succinate (Solu-Medrol -) 40 mg IVPUSH Q8H-IV [facility] Last Admin: 09/13/17 18:28 Dose: 40 mg Miscellaneous (Lidoderm Patch Removal) 1 each MC DAILY@2200 [facility] Last Admin: 09/12/17 23:22 Dose: 1 each Nifedipine (Procardia Xl -) 30 mg PO DAILY [facility] Last Admin: 09/13/17 10:55 Dose: 30 mg Cyclosporine [ Restasis] 0.05% Eye Drops 1 each OU BID [facility] Last Admin: 09/13/17 11:02 Dose: 1 each Nystatin (Nystop Powder -) 1 applic TP BID [facility] Last Admin: 09/13/17 11:01 Dose: 1 applic Nystatin (Nystatin Oral Suspension -) 500,000 units PO TID [facility] Last Admin: 09/13/17 14:00 Dose: 500,000 units Pantoprazole Sodium (Protonix -) 40 mg PO DAILY [facility] Last Admin: 09/13/17 10:55 Dose: 40 mg Polyethylene Glycol (Miralax (For Daily Use) -) 17 gm PO DAILY [facility] Last Admin: 09/13/17 12:26 Dose: 17 grams Rosuvastatin Calcium (Crestor -) 10 mg PO HS [facility] Last Admin: 09/12/17 22:20 Dose: 10 mg Senna (Senna -) 1 tab PO BID [facility] Last Admin: 09/13/17 10:55 Dose: 1 tab Sodium Chloride ([place] Nasal [place] -) 2 spray NS BID [facility] Last Admin: 09/13/17 11:03 Dose: Not Given Valsartan (Diovan -) 160 mg PO DAILY [facility] Last Admin: 09/13/17 10:55 Dose: 160 mg Warfarin Sodium (Coumadin -) 3 mg PO DAILY@1800 [facility] Last Admin: 09/13/17 18:28 Dose: 3 mg - Objective Vital Signs: Vital Signs Temperature 98.3 F 09/13/17 19:39 Pulse Rate 88 09/13/17 19:39 Respiratory Rate 20 09/13/17 19:39 Blood Pressure 110/60 09/13/17 19:39 O2 Sat by Pulse Oximetry (%) 97 09/13/17 10:05 Constitutional: Yes: Well Nourished Eyes: Yes: Other ((+) improved rt conjunctival hemorrhage) Neck: Yes: WNL, Supple Cardiovascular: Yes: WNL, Regular Rate and Rhythm Respiratory: Yes: Diminished Gastrointestinal: Yes: WNL, Normal Bowel Sounds, Soft, Abdomen, Obese Labs: CBC, BMP 09/13/17 06:20 09/09/17 06:50 INR, PTT INR 2.19 (0.82-1.09) H 09/13/17 06:20 Problem List - Problems (1) COPD exacerbation Assessment/Plan: IV steroid dose decreased Cont nebulizers/spiriva/symbicort Ventimask prn Code(s): J44.1 - CHRONIC OBSTRUCTIVE PULMONARY DISEASE W (ACUTE) EXACERBATION (2) Chronic diastolic (congestive) heart failure Assessment/Plan: Cont lasix Monitor electrolytes Code(s): I50.32 - CHRONIC DIASTOLIC (CONGESTIVE) HEART FAILURE (3) History of pulmonary embolism Assessment/Plan: Monitor PT/inr Coumadin restarted Code(s): Z86.711 - PERSONAL HISTORY OF PULMONARY EMBOLISM (4) Hypertension Assessment/Plan: BP stable Cont procardia/diovan Code(s): I10 - ESSENTIAL (PRIMARY) HYPERTENSION (5) Coronary artery disease Code(s): I25.10 - ATHSCL HEART DISEASE OF [place] CORONARY ARTERY W/O ANG PCTRS (6) HLD (hyperlipidemia) Code(s): E78.5 - HYPERLIPIDEMIA, UNSPECIFIED (7) Hemorrhoid Assessment/Plan: Cont anusol Code(s): K64.9 - UNSPECIFIED HEMORRHOIDS (8) Conjunctival hemorrhage of right eye Assessment/Plan: Cont to monitor Improved Code(s): H11.31 - CONJUNCTIVAL HEMORRHAGE, RIGHT EYE (9) Morbid obesity Code(s): E66.01 - MORBID (SEVERE) OBESITY DUE TO EXCESS CALORIES (10) DVT (deep venous thrombosis) Code(s): I82.409 - ACUTE EMBOLISM AND THOMBOS UNSP DEEP VN UNSP LOWER EXTREMITY
[2017-09-13] MEDS: ROSUVASTATIN CA 10 MG TABLET (FP) PO SCH (23:02)
[2017-09-13] MEDS: LIDOCAINE PATCH REMOVAL MC SCH (23:04)
[2017-09-14] MEDS: methylPREDNISolone NA SUCC 40 MG/1 ML VIAL IVPUSH SCH ×3 (02:55→17:05)
[2017-09-14] MEDS: NYSTATIN 500,000 UNITS/5 ML SUSPENSION PO SCH ×3 (06:19→21:25)
[2017-09-14] MEDS: FUROSEMIDE 40 MG TABLET (FP) PO SCH ×2 (06:19→14:38)
[2017-09-14] MEDS: INSULIN SLIDING SCALE (NOVOLOG) 1 VIAL SQ SCH ×4 (06:21→21:25)
[2017-09-14] MEDS: ALBUTEROL SO4 0.083% IH SOL 2.5 MG/3 ML VIAL.NEB. NEB PRN ×3 (06:35→17:13)
[2017-09-14 08:10] LABS: BASOPHIL 0.3 % (0-2.0); MCH 22.9 pg (25.7-33.7); MCHC 28.5 g/dl (32.0-36.0); MEAN CELL VOLUME 80.1 fl (80-96); MEAN PLT VOLUME 8.8 fl (7.5-11.1); NEUTROPHILS 94.1 % (42.8-82.8); PLATELET COUNT 93 K/MM3 (134-434); RDW 16.5 % (11.6-15.6); WHITE BLOOD COUNT 14.4 K/mm3 (4.0-10.0)
[2017-09-14 08:39] LABS: CALCIUM 8.7 mg/dL (8.5-10.1); CREATININE 1.3 mg/dL (0.55-1.02); GLUCOSE,RANDOM 211 mg/dL (74-106); SGOT/AST 18 U/L (15-37); SGPT/ALT 38 U/L (12-78)
[2017-09-14 08:41] LABS: ALK PHOS 56 U/L (45-117); BILIRUBIN,TOTAL 0.7 mg/dL (0.2-1.0); TOT PROT 5.4 g/dl (6.4-8.2)
[2017-09-14 08:49] LABS: INR 1.96 (0.82-1.09); PROTHROMBIN TIME (PATIENT) 22.2 SEC (9.98-11.88)
[2017-09-14 09:05] LABS: ANION GAP -1 (8-16); CO2 50 mmol/L (21-32)
[2017-09-14] MEDS: ASPIRIN 81 MG CHEWABLE TABLETS PO SCH (11:29)
[2017-09-14] MEDS: BUDESONIDE/FORMETEROL FUMARATE 160/4.5 mcg INHALER IH SCH ×2 (11:29→21:27)
[2017-09-14] MEDS: LIDOCAINE 5% TOPICAL PATCH TP SCH (11:29)
[2017-09-14] MEDS: VALSARTAN 160 MG TABLET (UD) PO SCH (11:30)
[2017-09-14] MEDS: NIFEdipine E.R. 30 MG TABLET (FP) PO SCH (11:30)
[2017-09-14] MEDS: PANTOPRAZOLE 40 MG TABLET (FP) PO SCH (11:30)
[2017-09-14] MEDS: MECLIZINE HCL 12.5 MG TABLET PO SCH ×3 (11:30→21:29)
[2017-09-14] MEDS: CHOLECALCIFEROL (VITAMIN D3) 1,000 UNIT TABLET (FP) PO SCH (11:30)
[2017-09-14] MEDS: PHENYLEPH/MINERAL OIL/PETROLAT 28 GM OINTMENT RC SCH ×2 (11:34→21:27)
[2017-09-14] MEDS: SODIUM CHLORIDE NASAL SPRAY 44 ML BOTTLE NS SCH ×2 (11:34→21:27)
[2017-09-14] MEDS: NYSTATIN POWDER 100,000 UNITS/GM - 15 GM TOPICAL POWDER TP SCH ×2 (11:35→21:26)
[2017-09-14] MEDS: POLYETHYLENE GLYCOL 3350 119 GM BTL PO SCH (11:36)
[2017-09-14] MEDS: SENNOSIDES 8.6MG TABLET (FP) PO SCH ×2 (11:37→21:25)
--- NOTE | 2017-09-14 12:14 | PN ---
Progress Note, Physician History of Present Illness: seen and examined today sitting in wheelchair. states she is still sob, wheezing , coughing. - Current Medication List Current Medications: Active Medications Acetaminophen (Tylenol -) 1,000 mg PO Q8H PRN PRN Reason: PAIN Albuterol Sulfate (Ventolin 0.083% Nebulizer Soln -) 1 amp NEB Q4H PRN PRN Reason: SHORT OF BREATH/WHEEZING Last Admin: 09/14/17 09:52 Dose: 1 amp Aspirin (Asa -) 81 mg PO DAILY [facility] Last Admin: 09/14/17 11:29 Dose: 81 mg Budesonide/Formoterol Fumarate (Symbicort 160/4.5mcg -) 1 puff IH BID [facility] Last Admin: 09/14/17 11:29 Dose: 1 puff Cholecalciferol (Vitamin D3 -) 2,000 unit PO DAILY [facility] Last Admin: 09/14/17 11:30 Dose: 2,000 unit Furosemide (Lasix -) 40 mg PO BID@0600,1400 [facility] Last Admin: 09/14/17 06:19 Dose: 40 mg Furosemide (Lasix Injection -) 20 mg IVPUSH ONCE PRN PRN Reason: SHORTNESS OF BREATH Last Admin: 09/05/17 22:23 Dose: 20 mg Insulin Aspart (Novolog Vial Sliding Scale -) 1 vial SQ ACHS [facility] PRN Reason: Protocol Last Admin: 09/14/17 11:56 Dose: 4 units Lidocaine (Lidoderm Patch -) 2 patch TP DAILY [facility] Last Admin: 09/14/17 11:29 Dose: 2 patch Meclizine HCl (Antivert -) 12.5 mg PO BID [facility] Last Admin: 09/14/17 11:30 Dose: 12.5 mg Methylprednisolone Sodium Succinate (Solu-Medrol -) 40 mg IVPUSH Q8H-IV [facility] Last Admin: 09/14/17 11:36 Dose: 40 mg Miscellaneous (Lidoderm Patch Removal) 1 each MC DAILY@2200 [facility] Last Admin: 09/13/17 23:04 Dose: 1 each Nifedipine (Procardia Xl -) 30 mg PO DAILY [facility] Last Admin: 09/14/17 11:30 Dose: 30 mg Cyclosporine [ Restasis] 0.05% Eye Drops 1 each OU BID [facility] Last Admin: 09/14/17 11:33 Dose: 1 each Nystatin (Nystop Powder -) 1 applic TP BID [facility] Last Admin: 09/14/17 11:35 Dose: 1 applic Nystatin (Nystatin Oral Suspension -) 500,000 units PO TID [facility] Last Admin: 09/14/17 06:19 Dose: 500,000 units Pantoprazole Sodium (Protonix -) 40 mg PO DAILY [facility] Last Admin: 09/14/17 11:30 Dose: 40 mg Polyethylene Glycol (Miralax (For Daily Use) -) 17 gm PO DAILY [facility] Last Admin: 09/14/17 11:36 Dose: 17 grams Rosuvastatin Calcium (Crestor -) 10 mg PO HS [facility] Last Admin: 09/13/17 23:02 Dose: 10 mg Senna (Senna -) 1 tab PO BID [facility] Last Admin: 09/14/17 11:37 Dose: 1 tab Sodium Chloride ([place] Nasal [place] -) 2 spray NS BID [facility] Last Admin: 09/14/17 11:34 Dose: Not Given Valsartan (Diovan -) 160 mg PO DAILY [facility] Last Admin: 09/14/17 11:30 Dose: 160 mg Warfarin Sodium (Coumadin -) 3 mg PO DAILY@1800 [facility] Last Admin: 09/13/17 18:28 Dose: 3 mg - Objective Vital Signs: Vital Signs Temperature 98.0 F 09/14/17 06:00 Pulse Rate 107 H 09/14/17 09:52 Respiratory Rate 18 09/14/17 06:00 Blood Pressure 115/54 09/14/17 06:00 O2 Sat by Pulse Oximetry (%) 97 09/14/17 09:52 Constitutional: Yes: No Distress, Calm, Obese Eyes: Yes: Conjunctiva Clear, PERRL, Ptosis HENT: Yes: Atraumatic, Normocephalic Neck: Yes: Supple, Trachea Midline Cardiovascular: Yes: Regular Rate and Rhythm, S1, S2. No: Bradycardia, Tachycardia, Pulse Irregular, Bruit, JVD, Gallop, Murmur, Rub, S3, S4, Varicosities Respiratory: Yes: Regular, Diminished, On Venti-Mask, Rhonchi, Wheezes. No: Rales, SOB Gastrointestinal: Yes: Normal Bowel Sounds, Soft. No: Distention, Tenderness Edema: No Peripheral Pulses WNL: Yes Neurological: Yes: Alert, Oriented Psychiatric: Yes: Alert, Oriented Labs: CBC, BMP 09/14/17 06:42 09/14/17 06:42 INR, PTT INR 1.96 (0.82-1.09) H 09/14/17 06:42 - ....Imaging Chest X-ray: Report Reviewed, Image Reviewed EKG: Report Reviewed, Image Reviewed Other: Report Reviewed, Image Reviewed Assessment/Plan SOB AECOPD Acute on chronic diastolic CHF, mild exacerbation History of PE on coumadin REC: 1. CHF: mildly decompensated acute on chronic diastolic CHF -Mild CAD on recent cath -Recent echo in February with normal LV function -cont po Lasix with IV doses prn -cont other current meds -monitor Daily weights, lI/Os, electrolytes 2. AE COPD: -as per pulmonary -additionally chronic PHTN due to COPD/PE resulting in right sided CHF symptoms 3. History of PEs on coumadin: Coumadin on hold due to anemia, bleeding
--- NOTE | 2017-09-14 14:11 | PN ---
Progress Note, Physician History of Present Illness: pulmonary alert,still dyspneic with min exertion, + cough - Current Medication List Current Medications: Active Medications Acetaminophen (Tylenol -) 1,000 mg PO Q8H PRN PRN Reason: PAIN Albuterol Sulfate (Ventolin 0.083% Nebulizer Soln -) 1 amp NEB Q4H PRN PRN Reason: SHORT OF BREATH/WHEEZING Last Admin: 09/14/17 09:52 Dose: 1 amp Aspirin (Asa -) 81 mg PO DAILY [facility] Last Admin: 09/14/17 11:29 Dose: 81 mg Budesonide/Formoterol Fumarate (Symbicort 160/4.5mcg -) 1 puff IH BID [facility] Last Admin: 09/14/17 11:29 Dose: 1 puff Cholecalciferol (Vitamin D3 -) 2,000 unit PO DAILY [facility] Last Admin: 09/14/17 11:30 Dose: 2,000 unit Furosemide (Lasix -) 40 mg PO BID@0600,1400 [facility] Last Admin: 09/14/17 06:19 Dose: 40 mg Furosemide (Lasix Injection -) 20 mg IVPUSH ONCE PRN PRN Reason: SHORTNESS OF BREATH Last Admin: 09/05/17 22:23 Dose: 20 mg Insulin Aspart (Novolog Vial Sliding Scale -) 1 vial SQ ACHS [facility] PRN Reason: Protocol Last Admin: 09/14/17 11:56 Dose: 4 units Lidocaine (Lidoderm Patch -) 2 patch TP DAILY [facility] Last Admin: 09/14/17 11:29 Dose: 2 patch Meclizine HCl (Antivert -) 12.5 mg PO BID [facility] Last Admin: 09/14/17 11:30 Dose: 12.5 mg Methylprednisolone Sodium Succinate (Solu-Medrol -) 40 mg IVPUSH Q8H-IV [facility] Last Admin: 09/14/17 11:36 Dose: 40 mg Miscellaneous (Lidoderm Patch Removal) 1 each MC DAILY@2200 [facility] Last Admin: 09/13/17 23:04 Dose: 1 each Nifedipine (Procardia Xl -) 30 mg PO DAILY [facility] Last Admin: 09/14/17 11:30 Dose: 30 mg Cyclosporine [ Restasis] 0.05% Eye Drops 1 each OU BID [facility] Last Admin: 09/14/17 11:33 Dose: 1 each Nystatin (Nystop Powder -) 1 applic TP BID [facility] Last Admin: 09/14/17 11:35 Dose: 1 applic Nystatin (Nystatin Oral Suspension -) 500,000 units PO TID [facility] Last Admin: 09/14/17 06:19 Dose: 500,000 units Pantoprazole Sodium (Protonix -) 40 mg PO DAILY [facility] Last Admin: 09/14/17 11:30 Dose: 40 mg Polyethylene Glycol (Miralax (For Daily Use) -) 17 gm PO DAILY [facility] Last Admin: 09/14/17 11:36 Dose: 17 grams Rosuvastatin Calcium (Crestor -) 10 mg PO HS [facility] Last Admin: 09/13/17 23:02 Dose: 10 mg Senna (Senna -) 1 tab PO BID [facility] Last Admin: 09/14/17 11:37 Dose: 1 tab Sodium Chloride ([place] Nasal [place] -) 2 spray NS BID [facility] Last Admin: 09/14/17 11:34 Dose: Not Given Valsartan (Diovan -) 160 mg PO DAILY [facility] Last Admin: 09/14/17 11:30 Dose: 160 mg Warfarin Sodium (Coumadin -) 3 mg PO DAILY@1800 [facility] Last Admin: 09/13/17 18:28 Dose: 3 mg - Objective Vital Signs: Vital Signs Temperature 98.0 F 09/14/17 06:00 Pulse Rate 107 H 09/14/17 09:52 Respiratory Rate 18 09/14/17 06:00 Blood Pressure 115/54 09/14/17 06:00 O2 Sat by Pulse Oximetry (%) 97 09/14/17 09:52 Constitutional: Yes: Calm, Obese Eyes: Yes: WNL HENT: Yes: WNL Neck: Yes: WNL Cardiovascular: Yes: Regular Rate and Rhythm, S1, S2 Respiratory: Yes: Wheezes Gastrointestinal: Yes: Normal Bowel Sounds, Soft Extremities: Yes: WNL Edema: Yes Labs: CBC, BMP 09/14/17 06:42 09/14/17 06:42 INR, PTT INR 1.96 (0.82-1.09) H 09/14/17 06:42 Problem List - Problems (1) Coronary artery disease Code(s): I25.10 - ATHSCL HEART DISEASE OF [place] CORONARY ARTERY W/O ANG PCTRS (2) COPD exacerbation Code(s): J44.1 - CHRONIC OBSTRUCTIVE PULMONARY DISEASE W (ACUTE) EXACERBATION (3) CHF (congestive heart failure) Code(s): I50.9 - HEART FAILURE, UNSPECIFIED (4) History of pulmonary embolism Code(s): Z86.711 - PERSONAL HISTORY OF PULMONARY EMBOLISM (5) Pulmonary hypertension Code(s): I27.2 - OTHER SECONDARY PULMONARY HYPERTENSION * DO NOT USE * (6) SOB (shortness of breath) Code(s): R06.02 - SHORTNESS OF BREATH (7) Chronic diastolic (congestive) heart failure Code(s): I50.32 - CHRONIC DIASTOLIC (CONGESTIVE) HEART FAILURE (8) Anemia Code(s): D64.9 - ANEMIA, UNSPECIFIED (9) Acute on chronic respiratory failure with hypoxia and hypercapnia Code(s): J96.21 - ACUTE AND CHRONIC RESPIRATORY FAILURE WITH HYPOXIA; J96.22 - ACUTE AND CHRONIC RESPIRATORY FAILURE WITH HYPERCAPNIA (10) Morbid obesity Code(s): E66.01 - MORBID (SEVERE) OBESITY DUE TO EXCESS CALORIES Assessment/Plan IMP ACUTE ON CHRONIC HYPOXEMIC/HYPERCAPNEIC RESPIRATORY FAILURE END STAGE COPD O2 DEPENDENT WITH ACUTE EXACERBATION URI DIASTOLIC HF PULMONARY HTN H/O RECURRENT PULMONARY EMBOLI HTN MORBID OBESITY ANEMIA S/P TRANSFUSION PLAN IV STEROIDS 4mg q8 SUPPLEMENTAL O2 VIA VM INHALED BRONCHODILATORS NIPPV NEEDED DIURETICS MONITOR H+H TRANSFUSE NEEDED DR FOX Problem List - Problems (1) SOB (shortness of breath) Code(s): R06.02 - SHORTNESS OF BREATH (2) Acute on chronic respiratory failure with hypoxia and hypercapnia Code(s): J96.21 - ACUTE AND CHRONIC RESPIRATORY FAILURE WITH HYPOXIA J96.22 - ACUTE AND CHRONIC RESPIRATORY FAILURE WITH HYPERCAPNIA (3) Anemia Code(s): D64.9 - ANEMIA, UNSPECIFIED (4) CHF (congestive heart failure) Code(s): I50.9 - HEART FAILURE, UNSPECIFIED (5) COPD exacerbation Code(s): J44.1 - CHRONIC OBSTRUCTIVE PULMONARY DISEASE W (ACUTE) EXACERBATION (6) Chronic diastolic (congestive) heart failure Code(s): I50.32 - CHRONIC DIASTOLIC (CONGESTIVE) HEART FAILURE (7) Coronary artery disease Code(s): I25.10 - ATHSCL HEART DISEASE OF [place] CORONARY ARTERY W/O ANG PCTRS (8) History of pulmonary embolism Code(s): Z86.711 - PERSONAL HISTORY OF PULMONARY EMBOLISM (9) Morbid obesity Code(s): E66.01 - MORBID (SEVERE) OBESITY DUE TO EXCESS CALORIES (10) Pulmonary hypertension Code(s): I27.2 - OTHER SECONDARY PULMONARY HYPERTENSION * DO NOT USE *
--- NOTE | 2017-09-14 16:12 | PN ---
Progress Note, Physician History of Present Illness: feels a little better legs bothering her - Current Medication List Current Medications: Active Medications Acetaminophen (Tylenol -) 1,000 mg PO Q8H PRN PRN Reason: PAIN Albuterol Sulfate (Ventolin 0.083% Nebulizer Soln -) 1 amp NEB Q4H PRN PRN Reason: SHORT OF BREATH/WHEEZING Last Admin: 09/14/17 09:52 Dose: 1 amp Aspirin (Asa -) 81 mg PO DAILY [facility] Last Admin: 09/14/17 11:29 Dose: 81 mg Budesonide/Formoterol Fumarate (Symbicort 160/4.5mcg -) 1 puff IH BID [facility] Last Admin: 09/14/17 11:29 Dose: 1 puff Cholecalciferol (Vitamin D3 -) 2,000 unit PO DAILY [facility] Last Admin: 09/14/17 11:30 Dose: 2,000 unit Furosemide (Lasix -) 40 mg PO BID@0600,1400 [facility] Last Admin: 09/14/17 14:38 Dose: 40 mg Furosemide (Lasix Injection -) 20 mg IVPUSH ONCE PRN PRN Reason: SHORTNESS OF BREATH Last Admin: 09/05/17 22:23 Dose: 20 mg Insulin Aspart (Novolog Vial Sliding Scale -) 1 vial SQ ACHS [facility] PRN Reason: Protocol Last Admin: 09/14/17 11:56 Dose: 4 units Lidocaine (Lidoderm Patch -) 2 patch TP DAILY [facility] Last Admin: 09/14/17 11:29 Dose: 2 patch Meclizine HCl (Antivert -) 12.5 mg PO BID@0600,1800 [facility] Methylprednisolone Sodium Succinate (Solu-Medrol -) 40 mg IVPUSH Q8H-IV [facility] Last Admin: 09/14/17 11:36 Dose: 40 mg Miscellaneous (Lidoderm Patch Removal) 1 each MC DAILY@2200 [facility] Last Admin: 09/13/17 23:04 Dose: 1 each Nifedipine (Procardia Xl -) 30 mg PO DAILY [facility] Last Admin: 09/14/17 11:30 Dose: 30 mg Cyclosporine [ Restasis] 0.05% Eye Drops 1 each OU BID [facility] Last Admin: 09/14/17 11:33 Dose: 1 each Nystatin (Nystop Powder -) 1 applic TP BID [facility] Last Admin: 09/14/17 11:35 Dose: 1 applic Nystatin (Nystatin Oral Suspension -) 500,000 units PO TID [facility] Last Admin: 09/14/17 14:38 Dose: 500,000 units Pantoprazole Sodium (Protonix -) 40 mg PO DAILY [facility] Last Admin: 09/14/17 11:30 Dose: 40 mg Polyethylene Glycol (Miralax (For Daily Use) -) 17 gm PO DAILY [facility] Last Admin: 09/14/17 11:36 Dose: 17 grams Rosuvastatin Calcium (Crestor -) 10 mg PO HS [facility] Last Admin: 09/13/17 23:02 Dose: 10 mg Senna (Senna -) 1 tab PO BID [facility] Last Admin: 09/14/17 11:37 Dose: 1 tab Sodium Chloride ([place] Nasal [place] -) 2 spray NS BID [facility] Last Admin: 09/14/17 11:34 Dose: Not Given Valsartan (Diovan -) 160 mg PO DAILY [facility] Last Admin: 09/14/17 11:30 Dose: 160 mg Warfarin Sodium (Coumadin -) 3 mg PO DAILY@1800 [facility] Last Admin: 09/13/17 18:28 Dose: 3 mg - Objective Vital Signs: Vital Signs Temperature 98.8 F 09/14/17 10:00 Pulse Rate 96 H 09/14/17 10:00 Respiratory Rate 18 09/14/17 10:00 Blood Pressure 139/70 09/14/17 10:00 O2 Sat by Pulse Oximetry (%) 97 09/14/17 09:52 Constitutional: Yes: No Distress, Calm Cardiovascular: Yes: S1, S2 Respiratory: Yes: On Nasal O2, Poor Air Entry, Rhonchi Musculoskeletal: Yes: WNL Extremities: Yes: WNL Neurological: Yes: Alert, Oriented Psychiatric: Yes: Alert, Oriented Labs: CBC, BMP 09/14/17 06:42 09/14/17 06:42 INR, PTT INR 1.96 (0.82-1.09) H 09/14/17 06:42 Assessment/Plan Problem List - Problems (1) SOB (shortness of breath) Code(s): R06.02 - SHORTNESS OF BREATH (2) Acute on chronic respiratory failure with hypoxia and hypercapnia Code(s): J96.21 - ACUTE AND CHRONIC RESPIRATORY FAILURE WITH HYPOXIA J96.22 - ACUTE AND CHRONIC RESPIRATORY FAILURE WITH HYPERCAPNIA (3) Anemia Code(s): D64.9 - ANEMIA, UNSPECIFIED (4) CHF (congestive heart failure) Code(s): I50.9 - HEART FAILURE, UNSPECIFIED (5) COPD exacerbation Code(s): J44.1 - CHRONIC OBSTRUCTIVE PULMONARY DISEASE W (ACUTE) EXACERBATION (6) Chronic diastolic (congestive) heart failure Code(s): I50.32 - CHRONIC DIASTOLIC (CONGESTIVE) HEART FAILURE (7) Coronary artery disease Code(s): I25.10 - ATHSCL HEART DISEASE OF [place] CORONARY ARTERY W/O ANG PCTRS (8) History of pulmonary embolism Code(s): Z86.711 - PERSONAL HISTORY OF PULMONARY EMBOLISM (9) Morbid obesity Code(s): E66.01 - MORBID (SEVERE) OBESITY DUE TO EXCESS CALORIES (10) Pulmonary hypertension Code(s): I27.2 - OTHER SECONDARY PULMONARY HYPERTENSION * DO NOT USE * plan continue resp support monitor the bruise on the hand rest as per primary team and pul
[2017-09-14] MEDS: WARFARIN NA 3 MG TABLET PO SCH (17:05)
[2017-09-14] MEDS: ROSUVASTATIN CA 10 MG TABLET (FP) PO SCH (21:25)
[2017-09-14] MEDS: LIDOCAINE PATCH REMOVAL MC SCH (21:26)
--- NOTE | 2017-09-14 22:39 | PN ---
Progress Note, Physician - Current Medication List Current Medications: Active Medications Acetaminophen (Tylenol -) 1,000 mg PO Q8H PRN PRN Reason: PAIN Albuterol Sulfate (Ventolin 0.083% Nebulizer Soln -) 1 amp NEB Q4H PRN PRN Reason: SHORT OF BREATH/WHEEZING Last Admin: 09/14/17 17:13 Dose: 1 amp Aspirin (Asa -) 81 mg PO DAILY [facility] Last Admin: 09/14/17 11:29 Dose: 81 mg Budesonide/Formoterol Fumarate (Symbicort 160/4.5mcg -) 1 puff IH BID [facility] Last Admin: 09/14/17 21:27 Dose: 1 puff Cholecalciferol (Vitamin D3 -) 2,000 unit PO DAILY [facility] Last Admin: 09/14/17 11:30 Dose: 2,000 unit Furosemide (Lasix -) 40 mg PO BID@0600,1400 [facility] Last Admin: 09/14/17 14:38 Dose: 40 mg Furosemide (Lasix Injection -) 20 mg IVPUSH ONCE PRN PRN Reason: SHORTNESS OF BREATH Last Admin: 09/05/17 22:23 Dose: 20 mg Insulin Aspart (Novolog Vial Sliding Scale -) 1 vial SQ ACHS [facility] PRN Reason: Protocol Last Admin: 09/14/17 21:25 Dose: 10 units Lidocaine (Lidoderm Patch -) 2 patch TP DAILY [facility] Last Admin: 09/14/17 11:29 Dose: 2 patch Meclizine HCl (Antivert -) 12.5 mg PO BID@0600,1800 [facility] Last Admin: 09/14/17 21:29 Dose: Not Given Methylprednisolone Sodium Succinate (Solu-Medrol -) 40 mg IVPUSH Q8H-IV [facility] Last Admin: 09/14/17 17:05 Dose: 40 mg Miscellaneous (Lidoderm Patch Removal) 1 each MC DAILY@2200 [facility] Last Admin: 09/14/17 21:26 Dose: 1 each Nifedipine (Procardia Xl -) 30 mg PO DAILY [facility] Last Admin: 09/14/17 11:30 Dose: 30 mg Cyclosporine [ Restasis] 0.05% Eye Drops 1 each OU BID [facility] Last Admin: 09/14/17 21:26 Dose: 1 each Nystatin (Nystop Powder -) 1 applic TP BID [facility] Last Admin: 09/14/17 21:26 Dose: 1 applic Nystatin (Nystatin Oral Suspension -) 500,000 units PO TID [facility] Last Admin: 09/14/17 21:25 Dose: 500,000 units Pantoprazole Sodium (Protonix -) 40 mg PO DAILY [facility] Last Admin: 09/14/17 11:30 Dose: 40 mg Polyethylene Glycol (Miralax (For Daily Use) -) 17 gm PO DAILY [facility] Last Admin: 09/14/17 11:36 Dose: 17 grams Rosuvastatin Calcium (Crestor -) 10 mg PO HS [facility] Last Admin: 09/14/17 21:25 Dose: 10 mg Senna (Senna -) 1 tab PO BID [facility] Last Admin: 09/14/17 21:25 Dose: 1 tab Sodium Chloride ([place] Nasal [place] -) 2 spray NS BID [facility] Last Admin: 09/14/17 21:27 Dose: Not Given Valsartan (Diovan -) 160 mg PO DAILY [facility] Last Admin: 09/14/17 11:30 Dose: 160 mg Warfarin Sodium (Coumadin -) 3 mg PO DAILY@1800 [facility] Last Admin: 09/14/17 17:05 Dose: 3 mg - Objective Vital Signs: Vital Signs Temperature 97.8 F 09/14/17 19:07 Pulse Rate 104 H 09/14/17 19:07 Respiratory Rate 19 09/14/17 19:07 Blood Pressure 139/64 09/14/17 19:07 O2 Sat by Pulse Oximetry (%) 97 09/14/17 09:52 Labs: CBC, BMP 09/14/17 06:42 09/14/17 06:42 INR, PTT INR 1.96 (0.82-1.09) H 09/14/17 06:42 Problem List - Problems (1) COPD exacerbation Code(s): J44.1 - CHRONIC OBSTRUCTIVE PULMONARY DISEASE W (ACUTE) EXACERBATION (2) Chronic diastolic (congestive) heart failure Code(s): I50.32 - CHRONIC DIASTOLIC (CONGESTIVE) HEART FAILURE (3) History of pulmonary embolism Code(s): Z86.711 - PERSONAL HISTORY OF PULMONARY EMBOLISM (4) Hypertension Code(s): I10 - ESSENTIAL (PRIMARY) HYPERTENSION (5) Coronary artery disease Code(s): I25.10 - ATHSCL HEART DISEASE OF [place] CORONARY ARTERY W/O ANG PCTRS (6) HLD (hyperlipidemia) Code(s): E78.5 - HYPERLIPIDEMIA, UNSPECIFIED (7) Hemorrhoid Code(s): K64.9 - UNSPECIFIED HEMORRHOIDS (8) Conjunctival hemorrhage of right eye Code(s): H11.31 - CONJUNCTIVAL HEMORRHAGE, RIGHT EYE (9) Morbid obesity Code(s): E66.01 - MORBID (SEVERE) OBESITY DUE TO EXCESS CALORIES (10) DVT (deep venous thrombosis) Code(s): I82.409 - ACUTE EMBOLISM AND THOMBOS UNSP DEEP VN UNSP LOWER EXTREMITY
[2017-09-15] MEDS: methylPREDNISolone NA SUCC 40 MG/1 ML VIAL IVPUSH SCH ×3 (01:50→21:39)
[2017-09-15] MEDS: FUROSEMIDE 40 MG TABLET (FP) PO SCH ×2 (06:34→13:56)
[2017-09-15] MEDS: MECLIZINE HCL 12.5 MG TABLET PO SCH ×2 (06:34→17:23)
[2017-09-15] MEDS: NYSTATIN 500,000 UNITS/5 ML SUSPENSION PO SCH ×3 (06:35→21:36)
[2017-09-15] MEDS: INSULIN SLIDING SCALE (NOVOLOG) 1 VIAL SQ SCH ×4 (06:35→21:36)
[2017-09-15 07:40] LABS: BASOPHIL 0.3 % (0-2.0); MCH 22.7 pg (25.7-33.7); MCHC 28.5 g/dl (32.0-36.0); MEAN CELL VOLUME 79.8 fl (80-96); MEAN PLT VOLUME 8.7 fl (7.5-11.1); PLATELET COUNT 99 K/MM3 (134-434); RDW 16.4 % (11.6-15.6); WHITE BLOOD COUNT 12.9 K/mm3 (4.0-10.0)
[2017-09-15 07:49] LABS: INR 2.48 (0.82-1.09)
[2017-09-15] MEDS ORDERED: INSULIN (NOVOLOG) ASPART 100 UNITS/ML 10ML VIAL ONE ×3 (07:58→17:56)
[2017-09-15 08:11] LABS: ALK PHOS 62 U/L (45-117); ANION GAP 5 (8-16); BILIRUBIN,TOTAL 0.6 mg/dL (0.2-1.0); CALCIUM 8.7 mg/dL (8.5-10.1); CO2 44 mmol/L (21-32); CREATININE 1.2 mg/dL (0.55-1.02); GLUCOSE,RANDOM 266 mg/dL (74-106); SGOT/AST 20 U/L (15-37); SGPT/ALT 42 U/L (12-78); TOT PROT 5.5 g/dl (6.4-8.2)
[2017-09-15] MEDS: ALBUTEROL SO4 0.083% IH SOL 2.5 MG/3 ML VIAL.NEB. NEB PRN ×3 (08:29→21:45)
[2017-09-15] MEDS: FERROUS SO4 325 MG TABLET (FP) PO SCH ×2 (09:56→21:33)
[2017-09-15] MEDS: ASPIRIN 81 MG CHEWABLE TABLETS PO SCH (09:56)
[2017-09-15] MEDS: PANTOPRAZOLE 40 MG TABLET (FP) PO SCH (09:56)
[2017-09-15] MEDS: NIFEdipine E.R. 30 MG TABLET (FP) PO SCH (09:56)
[2017-09-15] MEDS: SENNOSIDES 8.6MG TABLET (FP) PO SCH ×2 (09:56→21:39)
[2017-09-15] MEDS: VALSARTAN 160 MG TABLET (UD) PO SCH (09:56)
[2017-09-15] MEDS: LIDOCAINE 5% TOPICAL PATCH TP SCH (09:57)
[2017-09-15] MEDS: CHOLECALCIFEROL (VITAMIN D3) 1,000 UNIT TABLET (FP) PO SCH (09:57)
[2017-09-15] MEDS: BUDESONIDE/FORMETEROL FUMARATE 160/4.5 mcg INHALER IH SCH ×2 (09:57→21:41)
[2017-09-15] MEDS: NYSTATIN POWDER 100,000 UNITS/GM - 15 GM TOPICAL POWDER TP SCH ×2 (09:58→21:38)
[2017-09-15] MEDS: PHENYLEPH/MINERAL OIL/PETROLAT 28 GM OINTMENT RC SCH ×2 (09:58→21:39)
[2017-09-15] MEDS: POLYETHYLENE GLYCOL 3350 119 GM BTL PO SCH (10:01)
[2017-09-15] MEDS: SODIUM CHLORIDE NASAL SPRAY 44 ML BOTTLE NS SCH ×2 (10:01→21:38)
--- NOTE | 2017-09-15 10:11 | PN ---
Progress Note (short form) - Note Progress Note: Seen and examined feels better today O/E: Morbid obseity On O2. HEENT: [place], EOM Intact Cor: RSR, No murmurs, No gallops Lungs: Clear to P&A.scattered rhonchi Abd: Soft, Normal bowel sounds, No organomegaly Ext:chronic edema eye: redness noted in the rt eye is improving Last Vital Signs Temp Pulse Resp BP Pulse Ox 98.5 F 102 H 22 123/69 97 09/15/17 06:00 09/15/17 06:00 09/15/17 06:00 09/15/17 06:00 09/14/17 21:00 CBC, BMP 09/15/17 06:50 09/15/17 06:50 Current Medications Generic Name Dose Route Start Last Admin Trade Name Freq PRN Reason Stop Dose Admin Acetaminophen 1,000 mg 09/06/17 14:52 Tylenol - PO Q8H PRN PAIN Albuterol Sulfate 1 amp 09/11/17 06:27 09/15/17 08:29 Ventolin 0.083% Nebulizer Soln - NEB 1 amp Q4H PRN Administration SHORT OF BREATH/WHEEZING Aspirin 81 mg 08/21/17 10:00 09/15/17 09:56 Asa - PO 81 mg DAILY [facility] Administration Budesonide/Formoterol Fumarate 1 puff 08/21/17 10:00 09/15/17 09:57 Symbicort 160/4.5mcg - IH 1 puff BID [facility] Administration Cholecalciferol 2,000 unit 08/21/17 10:00 09/15/17 09:57 Vitamin D3 - PO 2,000 unit DAILY [facility] Administration Ferrous Sulfate 325 mg 09/15/17 10:00 09/15/17 09:56 Feosol - PO 325 mg BID [facility] Administration Furosemide 40 mg 09/01/17 14:00 09/15/17 06:34 Lasix - PO 40 mg BID@0600,1400 [facility] Administration Furosemide 20 mg 09/05/17 12:16 09/05/17 22:23 Lasix Injection - IVPUSH 20 mg ONCE PRN Administration SHORTNESS OF BREATH Insulin Aspart 1 vial 08/21/17 07:00 09/15/17 06:35 Novolog Vial Sliding Scale - SQ 6 units ACHS [facility] Administration Protocol Lidocaine 2 patch 09/06/17 14:53 09/15/17 09:57 Lidoderm Patch - TP 2 patch DAILY [facility] Administration Meclizine HCl 12.5 mg 09/14/17 22:00 09/15/17 06:34 Antivert - PO 12.5 mg BID@0600,1800 [facility] Administration Methylprednisolone Sodium Succinate 40 mg 09/12/17 14:01 09/15/17 10:07 Solu-Medrol - IVPUSH 40 mg Q8H-IV [facility] Administration Miscellaneous 1 each 09/04/17 22:00 09/14/17 21:26 Lidoderm Patch Removal MC 1 each DAILY@2200 [facility] Administration Nifedipine 30 mg 08/21/17 10:00 09/15/17 09:56 Procardia Xl - PO 30 mg DAILY [facility] Administration Cyclosporine [ 1 each 08/29/17 22:00 09/15/17 10:00 Restasis] 0.05% Eye OU 1 each Drops BID [facility] Administration Nystatin 1 applic 08/21/17 22:00 09/15/17 09:58 Nystop Powder - TP 1 applic BID [facility] Administration Nystatin 500,000 units 08/26/17 22:00 09/15/17 06:35 Nystatin Oral Suspension - PO 500,000 units TID [facility] Administration Pantoprazole Sodium 40 mg 08/21/17 10:00 09/15/17 09:56 Protonix - PO 40 mg DAILY [facility] Administration Polyethylene Glycol 17 gm 09/03/17 04:00 09/15/17 10:01 Miralax (For Daily Use) - PO 17 grams DAILY [facility] Administration Rosuvastatin Calcium 10 mg 08/21/17 22:00 09/14/17 21:25 Crestor - PO 10 mg HS [facility] Administration Senna 1 tab 08/23/17 22:00 09/15/17 09:56 Senna - PO 1 tab BID [facility] Administration Sodium Chloride 2 spray 08/27/17 22:00 09/15/17 10:01 [place] Nasal [place] - NS Not Given BID [facility] Valsartan 160 mg 08/21/17 10:00 09/15/17 09:56 Diovan - PO 160 mg DAILY [facility] Administration Warfarin Sodium 3 mg 09/13/17 18:00 09/14/17 17:05 Coumadin - PO 3 mg DAILY@1800 [facility] Administration COPD - with acute exacerbation - stable/improved, pulm f/u noted, decreasing sterouds History of thromboembolic disease on coumadin, will monitor inr Anemia, possibly exacerbated by SQ hemorrhage. Not iron deficient - stop oral iron - causing constipation. Will actively follow. Thrombocytopenia - ?etiology. no new meds noted. ?from the hematoma Continue to monitor.
--- NOTE | 2017-09-15 11:27 | PN ---
Progress Note (short form) - Note Progress Note: OOB to wheelchair on VM O2. Breathing feels a little better today. Still with cough. Intake & Output 09/12/17 09/13/17 09/14/17 09/15/17 23:59 23:59 23:59 23:59 Intake Total 1600 1040 1200 415 Balance 1600 1040 1200 415 Weight 275 lb 8 oz 280 lb 1.6 oz Last Vital Signs Temp Pulse Resp BP Pulse Ox 98.5 F 102 H 22 123/69 97 09/15/17 06:00 09/15/17 06:00 09/15/17 06:00 09/15/17 06:00 09/14/17 21:00 Active Medications Acetaminophen (Tylenol -) 1,000 mg PO Q8H PRN PRN Reason: PAIN Albuterol Sulfate (Ventolin 0.083% Nebulizer Soln -) 1 amp NEB Q4H PRN PRN Reason: SHORT OF BREATH/WHEEZING Last Admin: 09/15/17 08:29 Dose: 1 amp Aspirin (Asa -) 81 mg PO DAILY [facility] Last Admin: 09/15/17 09:56 Dose: 81 mg Budesonide/Formoterol Fumarate (Symbicort 160/4.5mcg -) 1 puff IH BID [facility] Last Admin: 09/15/17 09:57 Dose: 1 puff Cholecalciferol (Vitamin D3 -) 2,000 unit PO DAILY [facility] Last Admin: 09/15/17 09:57 Dose: 2,000 unit Ferrous Sulfate (Feosol -) 325 mg PO BID [facility] Last Admin: 09/15/17 09:56 Dose: 325 mg Furosemide (Lasix -) 40 mg PO BID@0600,1400 [facility] Last Admin: 09/15/17 06:34 Dose: 40 mg Furosemide (Lasix Injection -) 20 mg IVPUSH ONCE PRN PRN Reason: SHORTNESS OF BREATH Last Admin: 09/05/17 22:23 Dose: 20 mg Insulin Aspart (Novolog Vial Sliding Scale -) 1 vial SQ ACHS [facility] PRN Reason: Protocol Last Admin: 09/15/17 06:35 Dose: 6 units Lidocaine (Lidoderm Patch -) 2 patch TP DAILY [facility] Last Admin: 09/15/17 09:57 Dose: 2 patch Meclizine HCl (Antivert -) 12.5 mg PO BID@0600,1800 [facility] Last Admin: 09/15/17 06:34 Dose: 12.5 mg Methylprednisolone Sodium Succinate (Solu-Medrol -) 40 mg IVPUSH Q8H-IV [facility] Last Admin: 09/15/17 10:07 Dose: 40 mg Miscellaneous (Lidoderm Patch Removal) 1 each MC DAILY@2200 [facility] Last Admin: 09/14/17 21:26 Dose: 1 each Nifedipine (Procardia Xl -) 30 mg PO DAILY [facility] Last Admin: 09/15/17 09:56 Dose: 30 mg Cyclosporine [ Restasis] 0.05% Eye Drops 1 each OU BID [facility] Last Admin: 09/15/17 10:00 Dose: 1 each Nystatin (Nystop Powder -) 1 applic TP BID [facility] Last Admin: 09/15/17 09:58 Dose: 1 applic Nystatin (Nystatin Oral Suspension -) 500,000 units PO TID [facility] Last Admin: 09/15/17 06:35 Dose: 500,000 units Pantoprazole Sodium (Protonix -) 40 mg PO DAILY [facility] Last Admin: 09/15/17 09:56 Dose: 40 mg Polyethylene Glycol (Miralax (For Daily Use) -) 17 gm PO DAILY [facility] Last Admin: 09/15/17 10:01 Dose: 17 grams Rosuvastatin Calcium (Crestor -) 10 mg PO HS [facility] Last Admin: 09/14/17 21:25 Dose: 10 mg Senna (Senna -) 1 tab PO BID [facility] Last Admin: 09/15/17 09:56 Dose: 1 tab Sodium Chloride ([place] Nasal [place] -) 2 spray NS BID [facility] Last Admin: 09/15/17 10:01 Dose: Not Given Valsartan (Diovan -) 160 mg PO DAILY [facility] Last Admin: 09/15/17 09:56 Dose: 160 mg Warfarin Sodium (Coumadin -) 3 mg PO DAILY@1800 [facility] Last Admin: 09/14/17 17:05 Dose: 3 mg Constitutional: Yes: Obese, Mildly tachypneic on VM O2 Eyes: Yes: WNL HENT: Yes: WNL Neck: Yes: WNL Cardiovascular: Yes: Regular Rate and Rhythm, S1, S2 Respiratory: Yes: Bilateral rhonchi, minimal expiratory wheezes Gastrointestinal: Yes: Normal Bowel Sounds, Soft, obese Extremities: Yes: WNL Edema: Yes Labs: Laboratory Results - last 24 hr 09/14/17 09/14/17 09/14/17 11:22 16:56 21:02 WBC RBC Hgb Hct MCV MCH MCHC RDW Plt Count MPV Neutrophils % Lymphocytes % Monocytes % Eosinophils % Basophils % PT with INR INR Sodium Potassium Chloride Carbon Dioxide Anion Gap BUN Creatinine Creat Clearance w eGFR POC Glucometer 222 341 382 Random Glucose Calcium Total Bilirubin AST ALT Alkaline Phosphatase Total Protein Albumin 09/15/17 09/15/17 09/15/17 06:12 06:50 06:50 WBC 12.9 H RBC 3.37 L Hgb 7.6 L Hct 26.9 L MCV 79.8 L MCH 22.7 L MCHC 28.5 L RDW 16.4 H Plt Count 99 L MPV 8.7 Neutrophils % 94.0 H Lymphocytes % 2.4 L Monocytes % 3.3 L Eosinophils % 0.0 Basophils % 0.3 PT with INR 28.00 H INR 2.48 H Sodium Potassium Chloride Carbon Dioxide Anion Gap BUN Creatinine Creat Clearance w eGFR POC Glucometer 274 Random Glucose Calcium Total Bilirubin AST ALT Alkaline Phosphatase Total Protein Albumin 09/15/17 06:50 WBC RBC Hgb Hct MCV MCH MCHC RDW Plt Count MPV Neutrophils % Lymphocytes % Monocytes % Eosinophils % Basophils % PT with INR INR Sodium 142 Potassium 4.6 Chloride 93 L Carbon Dioxide 44 H Anion Gap 5 L BUN 35 H Creatinine 1.2 H Creat Clearance w eGFR 44.54 POC Glucometer Random Glucose 266 H D Calcium 8.7 Total Bilirubin 0.6 AST 20 ALT 42 Alkaline Phosphatase 62 Total Protein 5.5 L Albumin 3.0 L Problem List - Problems (1) Coronary artery disease Code(s): I25.10 - ATHSCL HEART DISEASE OF [place] CORONARY ARTERY W/O ANG PCTRS (2) COPD exacerbation Code(s): J44.1 - CHRONIC OBSTRUCTIVE PULMONARY DISEASE W (ACUTE) EXACERBATION (3) CHF (congestive heart failure) Code(s): I50.9 - HEART FAILURE, UNSPECIFIED (4) History of pulmonary embolism Code(s): Z86.711 - PERSONAL HISTORY OF PULMONARY EMBOLISM (5) Pulmonary hypertension Code(s): I27.2 - OTHER SECONDARY PULMONARY HYPERTENSION * DO NOT USE * (6) SOB (shortness of breath) Code(s): R06.02 - SHORTNESS OF BREATH (7) Chronic diastolic (congestive) heart failure Code(s): I50.32 - CHRONIC DIASTOLIC (CONGESTIVE) HEART FAILURE (8) Anemia Code(s): D64.9 - ANEMIA, UNSPECIFIED (9) Acute on chronic respiratory failure with hypoxia and hypercapnia Code(s): J96.21 - ACUTE AND CHRONIC RESPIRATORY FAILURE WITH HYPOXIA; J96.22 - ACUTE AND CHRONIC RESPIRATORY FAILURE WITH HYPERCAPNIA (10) Morbid obesity Code(s): E66.01 - MORBID (SEVERE) OBESITY DUE TO EXCESS CALORIES Assessment/Plan IMP ACUTE ON CHRONIC HYPOXEMIC/HYPERCAPNEIC RESPIRATORY FAILURE END STAGE COPD O2 DEPENDENT WITH ACUTE EXACERBATION URI DIASTOLIC HF PULMONARY HTN H/O RECURRENT PULMONARY EMBOLI HTN MORBID OBESITY ANEMIA S/P TRANSFUSION PLAN DECREASE IV STEROIDS SUPPLEMENTAL O2 VIA VM INHALED BRONCHODILATORS NIPPV NEEDED DIURETICS MONITOR H+H TRANSFUSE NEEDED DR MANJARREZ
--- NOTE | 2017-09-15 14:11 | PN ---
Progress Note, Physician History of Present Illness: continues to improve no other issues - Current Medication List Current Medications: Active Medications Acetaminophen (Tylenol -) 1,000 mg PO Q8H PRN PRN Reason: PAIN Albuterol Sulfate (Ventolin 0.083% Nebulizer Soln -) 1 amp NEB Q4H PRN PRN Reason: SHORT OF BREATH/WHEEZING Last Admin: 09/15/17 08:29 Dose: 1 amp Aspirin (Asa -) 81 mg PO DAILY [facility] Last Admin: 09/15/17 09:56 Dose: 81 mg Budesonide/Formoterol Fumarate (Symbicort 160/4.5mcg -) 1 puff IH BID [facility] Last Admin: 09/15/17 09:57 Dose: 1 puff Cholecalciferol (Vitamin D3 -) 2,000 unit PO DAILY [facility] Last Admin: 09/15/17 09:57 Dose: 2,000 unit Ferrous Sulfate (Feosol -) 325 mg PO BID [facility] Last Admin: 09/15/17 09:56 Dose: 325 mg Furosemide (Lasix -) 40 mg PO BID@0600,1400 [facility] Last Admin: 09/15/17 13:56 Dose: 40 mg Furosemide (Lasix Injection -) 20 mg IVPUSH ONCE PRN PRN Reason: SHORTNESS OF BREATH Last Admin: 09/05/17 22:23 Dose: 20 mg Insulin Aspart (Novolog Vial Sliding Scale -) 1 vial SQ ACHS [facility] PRN Reason: Protocol Last Admin: 09/15/17 12:06 Dose: 4 units Lidocaine (Lidoderm Patch -) 2 patch TP DAILY [facility] Last Admin: 09/15/17 09:57 Dose: 2 patch Meclizine HCl (Antivert -) 12.5 mg PO BID@0600,1800 [facility] Last Admin: 09/15/17 06:34 Dose: 12.5 mg Methylprednisolone Sodium Succinate (Solu-Medrol -) 30 mg IVPUSH BID [facility] Miscellaneous (Lidoderm Patch Removal) 1 each MC DAILY@2200 [facility] Last Admin: 09/14/17 21:26 Dose: 1 each Nifedipine (Procardia Xl -) 30 mg PO DAILY [facility] Last Admin: 09/15/17 09:56 Dose: 30 mg Cyclosporine [ Restasis] 0.05% Eye Drops 1 each OU BID [facility] Last Admin: 09/15/17 10:00 Dose: 1 each Nystatin (Nystop Powder -) 1 applic TP BID [facility] Last Admin: 09/15/17 09:58 Dose: 1 applic Nystatin (Nystatin Oral Suspension -) 500,000 units PO TID [facility] Last Admin: 09/15/17 13:56 Dose: 500,000 units Pantoprazole Sodium (Protonix -) 40 mg PO DAILY [facility] Last Admin: 09/15/17 09:56 Dose: 40 mg Polyethylene Glycol (Miralax (For Daily Use) -) 17 gm PO DAILY [facility] Last Admin: 09/15/17 10:01 Dose: 17 grams Rosuvastatin Calcium (Crestor -) 10 mg PO HS [facility] Last Admin: 09/14/17 21:25 Dose: 10 mg Senna (Senna -) 1 tab PO BID [facility] Last Admin: 09/15/17 09:56 Dose: 1 tab Sodium Chloride ([place] Nasal [place] -) 2 spray NS BID [facility] Last Admin: 09/15/17 10:01 Dose: Not Given Valsartan (Diovan -) 160 mg PO DAILY [facility] Last Admin: 09/15/17 09:56 Dose: 160 mg Warfarin Sodium (Coumadin -) 3 mg PO DAILY@1800 [facility] Last Admin: 09/14/17 17:05 Dose: 3 mg - Objective Vital Signs: Vital Signs Temperature 98.5 F 09/15/17 06:00 Pulse Rate 100 H 09/15/17 10:00 Respiratory Rate 22 09/15/17 10:00 Blood Pressure 135/78 09/15/17 10:00 O2 Sat by Pulse Oximetry (%) 98 09/15/17 09:00 Constitutional: Yes: No Distress, Calm Cardiovascular: Yes: Regular Rate and Rhythm Respiratory: Yes: Regular, CTA Bilaterally Gastrointestinal: Yes: Normal Bowel Sounds, Soft Musculoskeletal: Yes: WNL Extremities: Yes: WNL Neurological: Yes: Alert, Oriented Psychiatric: Yes: Alert Labs: CBC, BMP 09/15/17 06:50 09/15/17 06:50 INR, PTT INR 2.48 (0.82-1.09) H 09/15/17 06:50 Assessment/Plan Problem List - Problems (1) SOB (shortness of breath) Code(s): R06.02 - SHORTNESS OF BREATH (2) Acute on chronic respiratory failure with hypoxia and hypercapnia Code(s): J96.21 - ACUTE AND CHRONIC RESPIRATORY FAILURE WITH HYPOXIA J96.22 - ACUTE AND CHRONIC RESPIRATORY FAILURE WITH HYPERCAPNIA (3) Anemia Code(s): D64.9 - ANEMIA, UNSPECIFIED (4) CHF (congestive heart failure) Code(s): I50.9 - HEART FAILURE, UNSPECIFIED (5) COPD exacerbation Code(s): J44.1 - CHRONIC OBSTRUCTIVE PULMONARY DISEASE W (ACUTE) EXACERBATION (6) Chronic diastolic (congestive) heart failure Code(s): I50.32 - CHRONIC DIASTOLIC (CONGESTIVE) HEART FAILURE (7) Coronary artery disease Code(s): I25.10 - ATHSCL HEART DISEASE OF [place] CORONARY ARTERY W/O ANG PCTRS (8) History of pulmonary embolism Code(s): Z86.711 - PERSONAL HISTORY OF PULMONARY EMBOLISM (9) Morbid obesity Code(s): E66.01 - MORBID (SEVERE) OBESITY DUE TO EXCESS CALORIES (10) Pulmonary hypertension Code(s): I27.2 - OTHER SECONDARY PULMONARY HYPERTENSION * DO NOT USE * plan continue resp support monitor the bruise on the hand rest as per primary team and pul
[2017-09-15] MEDS: WARFARIN NA 3 MG TABLET PO SCH (17:23)
--- NOTE | 2017-09-15 21:11 | PN ---
Progress Note, Physician History of Present Illness: No new changes. - Current Medication List Current Medications: Active Medications Acetaminophen (Tylenol -) 1,000 mg PO Q8H PRN PRN Reason: PAIN Albuterol Sulfate (Ventolin 0.083% Nebulizer Soln -) 1 amp NEB Q4H PRN PRN Reason: SHORT OF BREATH/WHEEZING Last Admin: 09/15/17 14:52 Dose: 1 amp Aspirin (Asa -) 81 mg PO DAILY [facility] Last Admin: 09/15/17 09:56 Dose: 81 mg Budesonide/Formoterol Fumarate (Symbicort 160/4.5mcg -) 1 puff IH BID [facility] Last Admin: 09/15/17 09:57 Dose: 1 puff Cholecalciferol (Vitamin D3 -) 2,000 unit PO DAILY [facility] Last Admin: 09/15/17 09:57 Dose: 2,000 unit Ferrous Sulfate (Feosol -) 325 mg PO BID [facility] Last Admin: 09/15/17 09:56 Dose: 325 mg Furosemide (Lasix -) 40 mg PO BID@0600,1400 [facility] Last Admin: 09/15/17 13:56 Dose: 40 mg Furosemide (Lasix Injection -) 20 mg IVPUSH ONCE PRN PRN Reason: SHORTNESS OF BREATH Last Admin: 09/05/17 22:23 Dose: 20 mg Insulin Aspart (Novolog Vial Sliding Scale -) 1 vial SQ ACHS [facility] PRN Reason: Protocol Last Admin: 09/15/17 16:38 Dose: 6 units Lidocaine (Lidoderm Patch -) 2 patch TP DAILY [facility] Last Admin: 09/15/17 09:57 Dose: 2 patch Meclizine HCl (Antivert -) 12.5 mg PO BID@0600,1800 [facility] Last Admin: 09/15/17 17:23 Dose: Not Given Methylprednisolone Sodium Succinate (Solu-Medrol -) 30 mg IVPUSH BID [facility] Miscellaneous (Lidoderm Patch Removal) 1 each MC DAILY@2200 [facility] Last Admin: 09/14/17 21:26 Dose: 1 each Nifedipine (Procardia Xl -) 30 mg PO DAILY [facility] Last Admin: 09/15/17 09:56 Dose: 30 mg Cyclosporine [ Restasis] 0.05% Eye Drops 1 each OU BID [facility] Last Admin: 09/15/17 10:00 Dose: 1 each Nystatin (Nystop Powder -) 1 applic TP BID [facility] Last Admin: 09/15/17 09:58 Dose: 1 applic Nystatin (Nystatin Oral Suspension -) 500,000 units PO TID [facility] Last Admin: 09/15/17 13:56 Dose: 500,000 units Pantoprazole Sodium (Protonix -) 40 mg PO DAILY [facility] Last Admin: 09/15/17 09:56 Dose: 40 mg Polyethylene Glycol (Miralax (For Daily Use) -) 17 gm PO DAILY [facility] Last Admin: 09/15/17 10:01 Dose: 17 grams Rosuvastatin Calcium (Crestor -) 10 mg PO HS [facility] Last Admin: 09/14/17 21:25 Dose: 10 mg Senna (Senna -) 1 tab PO BID [facility] Last Admin: 09/15/17 09:56 Dose: 1 tab Sodium Chloride ([place] Nasal [place] -) 2 spray NS BID [facility] Last Admin: 09/15/17 10:01 Dose: Not Given Valsartan (Diovan -) 160 mg PO DAILY [facility] Last Admin: 09/15/17 09:56 Dose: 160 mg Warfarin Sodium (Coumadin -) 3 mg PO DAILY@1800 [facility] Last Admin: 09/15/17 17:23 Dose: 3 mg - Objective Vital Signs: Vital Signs Temperature 99.2 F 09/15/17 18:00 Pulse Rate 101 H 09/15/17 18:00 Respiratory Rate 22 09/15/17 18:00 Blood Pressure 112/55 09/15/17 18:00 O2 Sat by Pulse Oximetry (%) 98 09/15/17 09:00 Constitutional: Yes: Well Nourished Neck: Yes: WNL, Supple Cardiovascular: Yes: WNL, Regular Rate and Rhythm Respiratory: Yes: Diminished Gastrointestinal: Yes: WNL, Normal Bowel Sounds, Soft, Abdomen, Obese Edema: No Labs: CBC, BMP 09/15/17 06:50 09/15/17 06:50 INR, PTT INR 2.48 (0.82-1.09) H 09/15/17 06:50 Problem List - Problems (1) COPD exacerbation Assessment/Plan: IV steroid dose being tapered Cont nebulizers/spiriva/symbicort Ventimask prn Code(s): J44.1 - CHRONIC OBSTRUCTIVE PULMONARY DISEASE W (ACUTE) EXACERBATION (2) Chronic diastolic (congestive) heart failure Assessment/Plan: Cont lasix Monitor electrolytes Code(s): I50.32 - CHRONIC DIASTOLIC (CONGESTIVE) HEART FAILURE (3) History of pulmonary embolism Assessment/Plan: Monitor PT/inr Cont coumadin Code(s): Z86.711 - PERSONAL HISTORY OF PULMONARY EMBOLISM (4) Hypertension Assessment/Plan: BP stable Cont procardia/diovan Code(s): I10 - ESSENTIAL (PRIMARY) HYPERTENSION (5) Coronary artery disease Code(s): I25.10 - ATHSCL HEART DISEASE OF [place] CORONARY ARTERY W/O ANG PCTRS (6) HLD (hyperlipidemia) Code(s): E78.5 - HYPERLIPIDEMIA, UNSPECIFIED (7) Hemorrhoid Code(s): K64.9 - UNSPECIFIED HEMORRHOIDS (8) Conjunctival hemorrhage of right eye Code(s): H11.31 - CONJUNCTIVAL HEMORRHAGE, RIGHT EYE (9) Morbid obesity Code(s): E66.01 - MORBID (SEVERE) OBESITY DUE TO EXCESS CALORIES (10) DVT (deep venous thrombosis) Code(s): I82.409 - ACUTE EMBOLISM AND THOMBOS UNSP DEEP VN UNSP LOWER EXTREMITY
[2017-09-15] MEDS: ROSUVASTATIN CA 10 MG TABLET (FP) PO SCH (21:32)
[2017-09-15] MEDS: LIDOCAINE PATCH REMOVAL MC SCH (21:36)
[2017-09-16] MEDS: MECLIZINE HCL 12.5 MG TABLET PO SCH ×2 (06:04→17:19)
[2017-09-16] MEDS: FUROSEMIDE 40 MG TABLET (FP) PO SCH ×2 (06:05→13:59)
[2017-09-16] MEDS: NYSTATIN 500,000 UNITS/5 ML SUSPENSION PO SCH ×3 (06:05→21:55)
[2017-09-16] MEDS: INSULIN SLIDING SCALE (NOVOLOG) 1 VIAL SQ SCH ×4 (06:06→21:56)
[2017-09-16] MEDS: ALBUTEROL SO4 0.083% IH SOL 2.5 MG/3 ML VIAL.NEB. NEB PRN ×3 (06:30→22:19)
[2017-09-16 08:13] LABS: BASOPHIL 0.3 % (0-2.0); MCHC 28.4 g/dl (32.0-36.0); MEAN CELL VOLUME 81.1 fl (80-96); MEAN PLT VOLUME 8.5 fl (7.5-11.1); NEUTROPHILS 88.8 % (42.8-82.8); PLATELET COUNT 102 K/MM3 (134-434); RDW 16.2 % (11.6-15.6)
[2017-09-16 08:33] LABS: INR 3.01 (0.82-1.09)
[2017-09-16 09:25] LABS: LDH 449 U/L (84-246)
--- NOTE | 2017-09-16 09:36 | PN ---
Progress Note, Physician Chief Complaint: no new complaints - Current Medication List Current Medications: Active Medications Acetaminophen (Tylenol -) 1,000 mg PO Q8H PRN PRN Reason: PAIN Aspirin (Asa -) 81 mg PO DAILY [facility] Last Admin: 09/15/17 09:56 Dose: 81 mg Budesonide/Formoterol Fumarate (Symbicort 160/4.5mcg -) 1 puff IH BID [facility] Last Admin: 09/15/17 21:41 Dose: 1 puff Cholecalciferol (Vitamin D3 -) 2,000 unit PO DAILY [facility] Last Admin: 09/15/17 09:57 Dose: 2,000 unit Ferrous Sulfate (Feosol -) 325 mg PO BID [facility] Last Admin: 09/15/17 21:33 Dose: 325 mg Furosemide (Lasix -) 40 mg PO BID@0600,1400 [facility] Last Admin: 09/16/17 06:05 Dose: 40 mg Furosemide (Lasix Injection -) 20 mg IVPUSH ONCE PRN PRN Reason: SHORTNESS OF BREATH Last Admin: 09/05/17 22:23 Dose: 20 mg Insulin Aspart (Novolog Vial Sliding Scale -) 1 vial SQ ACHS [facility] PRN Reason: Protocol Last Admin: 09/16/17 06:06 Dose: 8 units Lidocaine (Lidoderm Patch -) 2 patch TP DAILY [facility] Last Admin: 09/15/17 09:57 Dose: 2 patch Meclizine HCl (Antivert -) 12.5 mg PO BID@0600,1800 [facility] Last Admin: 09/16/17 06:04 Dose: 12.5 mg Methylprednisolone Sodium Succinate (Solu-Medrol -) 30 mg IVPUSH BID [facility] Last Admin: 09/15/17 21:39 Dose: 30 mg Miscellaneous (Lidoderm Patch Removal) 1 each MC DAILY@2200 [facility] Last Admin: 09/15/17 21:36 Dose: 1 each Nifedipine (Procardia Xl -) 30 mg PO DAILY [facility] Last Admin: 09/15/17 09:56 Dose: 30 mg Cyclosporine [ Restasis] 0.05% Eye Drops 1 each OU BID [facility] Last Admin: 09/15/17 21:33 Dose: 1 each Nystatin (Nystop Powder -) 1 applic TP BID [facility] Last Admin: 09/15/17 21:38 Dose: 1 applic Nystatin (Nystatin Oral Suspension -) 500,000 units PO TID [facility] Last Admin: 09/16/17 06:05 Dose: 500,000 units Pantoprazole Sodium (Protonix -) 40 mg PO DAILY [facility] Last Admin: 09/15/17 09:56 Dose: 40 mg Polyethylene Glycol (Miralax (For Daily Use) -) 17 gm PO DAILY [facility] Last Admin: 09/15/17 10:01 Dose: 17 grams Rosuvastatin Calcium (Crestor -) 10 mg PO HS [facility] Last Admin: 09/15/17 21:32 Dose: 10 mg Senna (Senna -) 1 tab PO BID [facility] Last Admin: 09/15/17 21:39 Dose: 1 tab Sodium Chloride ([place] Nasal [place] -) 2 spray NS BID [facility] Last Admin: 09/15/17 21:38 Dose: Not Given Valsartan (Diovan -) 160 mg PO DAILY [facility] Last Admin: 09/15/17 09:56 Dose: 160 mg Warfarin Sodium (Coumadin -) 3 mg PO DAILY@1800 [facility] Last Admin: 09/15/17 17:23 Dose: 3 mg - Objective Vital Signs: Vital Signs Temperature 98.3 F 09/16/17 06:00 Pulse Rate 116 H 09/16/17 06:00 Respiratory Rate 22 09/16/17 06:00 Blood Pressure 106/58 09/16/17 06:00 O2 Sat by Pulse Oximetry (%) 100 09/15/17 21:00 Cardiovascular: Yes: Regular Rate and Rhythm Respiratory: Yes: Other (decreased breath sounds, no wheezing) Gastrointestinal: Yes: Soft Edema: No Neurological: Yes: Alert, Oriented ...Motor Strength: WNL Labs: CBC, BMP 09/16/17 07:30 09/15/17 06:50 INR, PTT INR 3.01 (0.82-1.09) H 09/16/17 07:30 Laboratory Tests 09/15/17 09/16/17 09/16/17 06:50 07:30 07:30 WBC 12.0 H Hgb 7.3 L Hct 25.9 L Plt Count 102 L INR 3.01 H Potassium 4.6 Creatinine 1.2 H Assessment/Plan Assessment/Plan SOB AECOPD Acute on chronic diastolic CHF, mild exacerbation History of PE on coumadin REC: 1. CHF: chronic diastolic CHF -Mild CAD on recent cath -Recent echo in February with normal LV function -cont po Lasix with IV doses prn -cont other current meds -monitor Daily weights, lI/Os, electrolytes 2. AE COPD: -as per pulmonary -additionally chronic PHTN due to COPD/PE resulting in right sided CHF symptoms 3. History of PEs on coumadin: INR 2-3
[2017-09-16] MEDS: VALSARTAN 160 MG TABLET (UD) PO SCH (09:52)
[2017-09-16] MEDS: FERROUS SO4 325 MG TABLET (FP) PO SCH ×2 (09:52→21:55)
[2017-09-16] MEDS: NIFEdipine E.R. 30 MG TABLET (FP) PO SCH (09:52)
[2017-09-16] MEDS: PANTOPRAZOLE 40 MG TABLET (FP) PO SCH (09:52)
[2017-09-16] MEDS: methylPREDNISolone NA SUCC 40 MG/1 ML VIAL IVPUSH SCH ×2 (09:52→21:58)
[2017-09-16] MEDS: ASPIRIN 81 MG CHEWABLE TABLETS PO SCH (09:52)
[2017-09-16] MEDS: CHOLECALCIFEROL (VITAMIN D3) 1,000 UNIT TABLET (FP) PO SCH (09:52)
[2017-09-16] MEDS: SENNOSIDES 8.6MG TABLET (FP) PO SCH ×2 (09:52→21:55)
[2017-09-16] MEDS: LIDOCAINE 5% TOPICAL PATCH TP SCH (09:53)
[2017-09-16] MEDS: NYSTATIN POWDER 100,000 UNITS/GM - 15 GM TOPICAL POWDER TP SCH ×2 (09:57→22:03)
[2017-09-16] MEDS: PHENYLEPH/MINERAL OIL/PETROLAT 28 GM OINTMENT RC SCH ×2 (09:57→22:03)
[2017-09-16] MEDS: SODIUM CHLORIDE NASAL SPRAY 44 ML BOTTLE NS SCH ×2 (09:58→22:03)
[2017-09-16] MEDS: POLYETHYLENE GLYCOL 3350 119 GM BTL PO SCH (09:59)
[2017-09-16] MEDS: BUDESONIDE/FORMETEROL FUMARATE 160/4.5 mcg INHALER IH SCH ×2 (09:59→22:02)
--- NOTE | 2017-09-16 12:57 | PN ---
Progress Note (short form) - Note Progress Note: Seen and examined continues to feel better. She still has a cough, wet cough. O/E: Morbid obseity On O2. HEENT: [place], EOM Intact Cor: RSR, No murmurs, No gallops Lungs: Clear to P&A.scattered rhonchi Abd: Soft, Normal bowel sounds, No organomegaly Ext:chronic edema eye: redness noted in the rt eye is improving CBC, BMP 09/16/17 07:30 09/15/17 06:50 Current Medications Generic Name Dose Route Start Last Admin Trade Name Freq PRN Reason Stop Dose Admin Acetaminophen 1,000 mg 09/06/17 14:52 Tylenol - PO Q8H PRN PAIN Albuterol Sulfate 1 amp 09/16/17 12:01 Ventolin 0.083% Nebulizer Soln - NEB Q4H PRN SHORT OF BREATH/WHEEZING Aspirin 81 mg 08/21/17 10:00 09/16/17 09:52 Asa - PO 81 mg DAILY [facility] Administration Budesonide/Formoterol Fumarate 1 puff 08/21/17 10:00 09/16/17 09:59 Symbicort 160/4.5mcg - IH 1 puff BID [facility] Administration Cholecalciferol 2,000 unit 08/21/17 10:00 09/16/17 09:52 Vitamin D3 - PO 2,000 unit DAILY [facility] Administration Ferrous Sulfate 325 mg 09/15/17 10:00 09/16/17 09:52 Feosol - PO 325 mg BID [facility] Administration Furosemide 40 mg 09/01/17 14:00 09/16/17 06:05 Lasix - PO 40 mg BID@0600,1400 [facility] Administration Furosemide 20 mg 09/05/17 12:16 09/05/17 22:23 Lasix Injection - IVPUSH 20 mg ONCE PRN Administration SHORTNESS OF BREATH Insulin Aspart 1 vial 08/21/17 07:00 09/16/17 12:02 Novolog Vial Sliding Scale - SQ 2 units ACHS [facility] Administration Protocol Lidocaine 2 patch 09/06/17 14:53 09/16/17 09:53 Lidoderm Patch - TP 2 patch DAILY [facility] Administration Meclizine HCl 12.5 mg 09/14/17 22:00 09/16/17 06:04 Antivert - PO 12.5 mg BID@0600,1800 [facility] Administration Methylprednisolone Sodium Succinate 30 mg 09/15/17 22:00 09/16/17 09:52 Solu-Medrol - IVPUSH 30 mg BID [facility] Administration Miscellaneous 1 each 09/04/17 22:00 09/15/17 21:36 Lidoderm Patch Removal MC 1 each DAILY@2200 [facility] Administration Nifedipine 30 mg 08/21/17 10:00 09/16/17 09:52 Procardia Xl - PO 30 mg DAILY [facility] Administration Cyclosporine [ 1 each 08/29/17 22:00 09/16/17 09:56 Restasis] 0.05% Eye OU 1 each Drops BID [facility] Administration Nystatin 1 applic 08/21/17 22:00 09/16/17 09:57 Nystop Powder - TP 1 applic BID [facility] Administration Nystatin 500,000 units 08/26/17 22:00 09/16/17 06:05 Nystatin Oral Suspension - PO 500,000 units TID [facility] Administration Pantoprazole Sodium 40 mg 08/21/17 10:00 09/16/17 09:52 Protonix - PO 40 mg DAILY [facility] Administration Polyethylene Glycol 17 gm 09/03/17 04:00 09/16/17 09:59 Miralax (For Daily Use) - PO 17 grams DAILY [facility] Administration Rosuvastatin Calcium 10 mg 08/21/17 22:00 09/15/17 21:32 Crestor - PO 10 mg HS [facility] Administration Senna 1 tab 08/23/17 22:00 09/16/17 09:52 Senna - PO 1 tab BID [facility] Administration Sodium Chloride 2 spray 08/27/17 22:00 09/16/17 09:58 [place] Nasal [place] - NS Not Given BID [facility] Valsartan 160 mg 08/21/17 10:00 09/16/17 09:52 Diovan - PO 160 mg DAILY [facility] Administration Warfarin Sodium 3 mg 09/13/17 18:00 09/15/17 17:23 Coumadin - PO 3 mg DAILY@1800 [facility] Administration COPD - with acute exacerbation - stable/improved, pulm f/u noted, decreasing steroids History of thromboembolic disease on coumadin, will monitor inr, hold coumadin for today ( goal of 2-3) Anemia, will follow tomorrow blood work , to assess for transfusion. Thrombocytopenia - ?etiology.improving Continue to monitor. d/w BRUCE
--- NOTE | 2017-09-16 13:07 | PN ---
Progress Note, Physician History of Present Illness: PULMONARY ALERT,LESS DYSPNEIC,-CP,LESS COUGH - Current Medication List Current Medications: Active Medications Acetaminophen (Tylenol -) 1,000 mg PO Q8H PRN PRN Reason: PAIN Albuterol Sulfate (Ventolin 0.083% Nebulizer Soln -) 1 amp NEB Q4H PRN PRN Reason: SHORT OF BREATH/WHEEZING Last Admin: 09/16/17 12:59 Dose: 1 amp Aspirin (Asa -) 81 mg PO DAILY [facility] Last Admin: 09/16/17 09:52 Dose: 81 mg Budesonide/Formoterol Fumarate (Symbicort 160/4.5mcg -) 1 puff IH BID [facility] Last Admin: 09/16/17 09:59 Dose: 1 puff Cholecalciferol (Vitamin D3 -) 2,000 unit PO DAILY [facility] Last Admin: 09/16/17 09:52 Dose: 2,000 unit Ferrous Sulfate (Feosol -) 325 mg PO BID [facility] Last Admin: 09/16/17 09:52 Dose: 325 mg Furosemide (Lasix -) 40 mg PO BID@0600,1400 [facility] Last Admin: 09/16/17 06:05 Dose: 40 mg Furosemide (Lasix Injection -) 20 mg IVPUSH ONCE PRN PRN Reason: SHORTNESS OF BREATH Last Admin: 09/05/17 22:23 Dose: 20 mg Insulin Aspart (Novolog Vial Sliding Scale -) 1 vial SQ ACHS [facility] PRN Reason: Protocol Last Admin: 09/16/17 12:02 Dose: 2 units Lidocaine (Lidoderm Patch -) 2 patch TP DAILY [facility] Last Admin: 09/16/17 09:53 Dose: 2 patch Meclizine HCl (Antivert -) 12.5 mg PO BID@0600,1800 [facility] Last Admin: 09/16/17 06:04 Dose: 12.5 mg Methylprednisolone Sodium Succinate (Solu-Medrol -) 30 mg IVPUSH BID [facility] Last Admin: 09/16/17 09:52 Dose: 30 mg Miscellaneous (Lidoderm Patch Removal) 1 each MC DAILY@2200 [facility] Last Admin: 09/15/17 21:36 Dose: 1 each Nifedipine (Procardia Xl -) 30 mg PO DAILY [facility] Last Admin: 09/16/17 09:52 Dose: 30 mg Cyclosporine [ Restasis] 0.05% Eye Drops 1 each OU BID [facility] Last Admin: 09/16/17 09:56 Dose: 1 each Nystatin (Nystop Powder -) 1 applic TP BID [facility] Last Admin: 09/16/17 09:57 Dose: 1 applic Nystatin (Nystatin Oral Suspension -) 500,000 units PO TID [facility] Last Admin: 09/16/17 06:05 Dose: 500,000 units Pantoprazole Sodium (Protonix -) 40 mg PO DAILY [facility] Last Admin: 09/16/17 09:52 Dose: 40 mg Polyethylene Glycol (Miralax (For Daily Use) -) 17 gm PO DAILY [facility] Last Admin: 09/16/17 09:59 Dose: 17 grams Rosuvastatin Calcium (Crestor -) 10 mg PO HS [facility] Last Admin: 09/15/17 21:32 Dose: 10 mg Senna (Senna -) 1 tab PO BID [facility] Last Admin: 09/16/17 09:52 Dose: 1 tab Sodium Chloride ([place] Nasal [place] -) 2 spray NS BID [facility] Last Admin: 09/16/17 09:58 Dose: Not Given Valsartan (Diovan -) 160 mg PO DAILY [facility] Last Admin: 09/16/17 09:52 Dose: 160 mg Warfarin Sodium (Coumadin -) 3 mg PO DAILY@1800 [facility] Last Admin: 09/15/17 17:23 Dose: 3 mg - Objective Vital Signs: Vital Signs Temperature 98.6 F 09/16/17 10:00 Pulse Rate 79 09/16/17 11:20 Respiratory Rate 20 09/16/17 10:00 Blood Pressure 115/65 09/16/17 10:00 O2 Sat by Pulse Oximetry (%) 95 09/16/17 11:20 Constitutional: Yes: Well Nourished, Obese Eyes: Yes: WNL HENT: Yes: WNL Neck: Yes: WNL Cardiovascular: Yes: Regular Rate and Rhythm, S1, S2 Respiratory: Yes: Wheezes (FEW SCATTERED WHEEZES) Gastrointestinal: Yes: Normal Bowel Sounds, Soft Extremities: Yes: WNL Edema: Yes Labs: CBC, BMP 09/16/17 07:30 INR, PTT INR 3.01 (0.82-1.09) H 09/16/17 07:30 Problem List - Problems (1) Coronary artery disease Code(s): I25.10 - ATHSCL HEART DISEASE OF [place] CORONARY ARTERY W/O ANG PCTRS (2) COPD exacerbation Code(s): J44.1 - CHRONIC OBSTRUCTIVE PULMONARY DISEASE W (ACUTE) EXACERBATION (3) CHF (congestive heart failure) Code(s): I50.9 - HEART FAILURE, UNSPECIFIED (4) History of pulmonary embolism Code(s): Z86.711 - PERSONAL HISTORY OF PULMONARY EMBOLISM (5) Pulmonary hypertension Code(s): I27.2 - OTHER SECONDARY PULMONARY HYPERTENSION * DO NOT USE * (6) SOB (shortness of breath) Code(s): R06.02 - SHORTNESS OF BREATH (7) Chronic diastolic (congestive) heart failure Code(s): I50.32 - CHRONIC DIASTOLIC (CONGESTIVE) HEART FAILURE (8) Anemia Code(s): D64.9 - ANEMIA, UNSPECIFIED (9) Acute on chronic respiratory failure with hypoxia and hypercapnia Code(s): J96.21 - ACUTE AND CHRONIC RESPIRATORY FAILURE WITH HYPOXIA; J96.22 - ACUTE AND CHRONIC RESPIRATORY FAILURE WITH HYPERCAPNIA (10) Morbid obesity Code(s): E66.01 - MORBID (SEVERE) OBESITY DUE TO EXCESS CALORIES Assessment/Plan IMP ACUTE ON CHRONIC HYPOXEMIC/HYPERCAPNEIC RESPIRATORY FAILURE END STAGE COPD O2 DEPENDENT WITH ACUTE EXACERBATION URI DIASTOLIC HF PULMONARY HTN H/O RECURRENT PULMONARY EMBOLI HTN MORBID OBESITY ANEMIA S/P TRANSFUSION PLAN IV STEROIDS 30mg bid SUPPLEMENTAL O2 VIA VM INHALED BRONCHODILATORS NIPPV NEEDED DIURETICS MONITOR H+H TRANSFUSE NEEDED DR FOX Problem List - Problems (1) SOB (shortness of breath) Code(s): R06.02 - SHORTNESS OF BREATH (2) Acute on chronic respiratory failure with hypoxia and hypercapnia Code(s): J96.21 - ACUTE AND CHRONIC RESPIRATORY FAILURE WITH HYPOXIA J96.22 - ACUTE AND CHRONIC RESPIRATORY FAILURE WITH HYPERCAPNIA (3) Anemia Code(s): D64.9 - ANEMIA, UNSPECIFIED (4) CHF (congestive heart failure) Code(s): I50.9 - HEART FAILURE, UNSPECIFIED (5) COPD exacerbation Code(s): J44.1 - CHRONIC OBSTRUCTIVE PULMONARY DISEASE W (ACUTE) EXACERBATION (6) Chronic diastolic (congestive) heart failure Code(s): I50.32 - CHRONIC DIASTOLIC (CONGESTIVE) HEART FAILURE (7) Coronary artery disease Code(s): I25.10 - ATHSCL HEART DISEASE OF [place] CORONARY ARTERY W/O ANG PCTRS (8) History of pulmonary embolism Code(s): Z86.711 - PERSONAL HISTORY OF PULMONARY EMBOLISM (9) Morbid obesity Code(s): E66.01 - MORBID (SEVERE) OBESITY DUE TO EXCESS CALORIES (10) Pulmonary hypertension Code(s): I27.2 - OTHER SECONDARY PULMONARY HYPERTENSION * DO NOT USE *
--- NOTE | 2017-09-16 17:37 | PN ---
Progress Note, Physician History of Present Illness: continues to improve no other issues - Current Medication List Current Medications: Active Medications Acetaminophen (Tylenol -) 1,000 mg PO Q8H PRN PRN Reason: PAIN Albuterol Sulfate (Ventolin 0.083% Nebulizer Soln -) 1 amp NEB Q4H PRN PRN Reason: SHORT OF BREATH/WHEEZING Last Admin: 09/16/17 12:59 Dose: 1 amp Aspirin (Asa -) 81 mg PO DAILY [facility] Last Admin: 09/16/17 09:52 Dose: 81 mg Budesonide/Formoterol Fumarate (Symbicort 160/4.5mcg -) 1 puff IH BID [facility] Last Admin: 09/16/17 09:59 Dose: 1 puff Cholecalciferol (Vitamin D3 -) 2,000 unit PO DAILY [facility] Last Admin: 09/16/17 09:52 Dose: 2,000 unit Ferrous Sulfate (Feosol -) 325 mg PO BID [facility] Last Admin: 09/16/17 09:52 Dose: 325 mg Furosemide (Lasix -) 40 mg PO BID@0600,1400 [facility] Last Admin: 09/16/17 13:59 Dose: 40 mg Furosemide (Lasix Injection -) 20 mg IVPUSH ONCE PRN PRN Reason: SHORTNESS OF BREATH Last Admin: 09/05/17 22:23 Dose: 20 mg Insulin Aspart (Novolog Vial Sliding Scale -) 1 vial SQ ACHS [facility] PRN Reason: Protocol Last Admin: 09/16/17 17:18 Dose: 6 units Lidocaine (Lidoderm Patch -) 2 patch TP DAILY [facility] Last Admin: 09/16/17 09:53 Dose: 2 patch Meclizine HCl (Antivert -) 12.5 mg PO BID@0600,1800 [facility] Last Admin: 09/16/17 17:19 Dose: Not Given Methylprednisolone Sodium Succinate (Solu-Medrol -) 30 mg IVPUSH BID [facility] Last Admin: 09/16/17 09:52 Dose: 30 mg Miscellaneous (Lidoderm Patch Removal) 1 each MC DAILY@2200 [facility] Last Admin: 09/15/17 21:36 Dose: 1 each Nifedipine (Procardia Xl -) 30 mg PO DAILY [facility] Last Admin: 09/16/17 09:52 Dose: 30 mg Cyclosporine [ Restasis] 0.05% Eye Drops 1 each OU BID [facility] Last Admin: 09/16/17 09:56 Dose: 1 each Nystatin (Nystop Powder -) 1 applic TP BID [facility] Last Admin: 09/16/17 09:57 Dose: 1 applic Nystatin (Nystatin Oral Suspension -) 500,000 units PO TID [facility] Last Admin: 09/16/17 13:59 Dose: 500,000 units Pantoprazole Sodium (Protonix -) 40 mg PO DAILY [facility] Last Admin: 09/16/17 09:52 Dose: 40 mg Polyethylene Glycol (Miralax (For Daily Use) -) 17 gm PO DAILY [facility] Last Admin: 09/16/17 09:59 Dose: 17 grams Rosuvastatin Calcium (Crestor -) 10 mg PO HS [facility] Last Admin: 09/15/17 21:32 Dose: 10 mg Senna (Senna -) 1 tab PO BID [facility] Last Admin: 09/16/17 09:52 Dose: 1 tab Sodium Chloride ([place] Nasal [place] -) 2 spray NS BID [facility] Last Admin: 09/16/17 09:58 Dose: Not Given Valsartan (Diovan -) 160 mg PO DAILY [facility] Last Admin: 09/16/17 09:52 Dose: 160 mg Warfarin Sodium (Coumadin -) 3 mg PO DAILY@1800 [facility] Last Admin: 09/15/17 17:23 Dose: 3 mg - Objective Vital Signs: Vital Signs Temperature 98.6 F 09/16/17 13:46 Pulse Rate 106 H 09/16/17 13:46 Respiratory Rate 24 09/16/17 13:46 Blood Pressure 126/78 09/16/17 13:46 O2 Sat by Pulse Oximetry (%) 95 09/16/17 11:20 Constitutional: Yes: No Distress, Calm Cardiovascular: Yes: Regular Rate and Rhythm Respiratory: Yes: On Nasal O2, Poor Air Entry Gastrointestinal: Yes: Normal Bowel Sounds, Soft Musculoskeletal: Yes: WNL Extremities: Yes: WNL Neurological: Yes: Alert, Oriented Psychiatric: Yes: Alert, Oriented Labs: CBC, BMP 09/16/17 07:30 09/15/17 06:50 INR, PTT INR 3.01 (0.82-1.09) H 09/16/17 07:30 Assessment/Plan Problem List - Problems (1) SOB (shortness of breath) Code(s): R06.02 - SHORTNESS OF BREATH (2) Acute on chronic respiratory failure with hypoxia and hypercapnia Code(s): J96.21 - ACUTE AND CHRONIC RESPIRATORY FAILURE WITH HYPOXIA J96.22 - ACUTE AND CHRONIC RESPIRATORY FAILURE WITH HYPERCAPNIA (3) Anemia Code(s): D64.9 - ANEMIA, UNSPECIFIED (4) CHF (congestive heart failure) Code(s): I50.9 - HEART FAILURE, UNSPECIFIED (5) COPD exacerbation Code(s): J44.1 - CHRONIC OBSTRUCTIVE PULMONARY DISEASE W (ACUTE) EXACERBATION (6) Chronic diastolic (congestive) heart failure Code(s): I50.32 - CHRONIC DIASTOLIC (CONGESTIVE) HEART FAILURE (7) Coronary artery disease Code(s): I25.10 - ATHSCL HEART DISEASE OF [place] CORONARY ARTERY W/O ANG PCTRS (8) History of pulmonary embolism Code(s): Z86.711 - PERSONAL HISTORY OF PULMONARY EMBOLISM (9) Morbid obesity Code(s): E66.01 - MORBID (SEVERE) OBESITY DUE TO EXCESS CALORIES (10) Pulmonary hypertension Code(s): I27.2 - OTHER SECONDARY PULMONARY HYPERTENSION * DO NOT USE * plan continue resp support monitor the bruise on the hand rest as per primary team and pul
[2017-09-16] MEDS: ROSUVASTATIN CA 10 MG TABLET (FP) PO SCH (21:55)
[2017-09-16] MEDS: LIDOCAINE PATCH REMOVAL MC SCH (22:03)
--- NOTE | 2017-09-16 23:51 | PN ---
Progress Note, Physician - Current Medication List Current Medications: Active Medications Acetaminophen (Tylenol -) 1,000 mg PO Q8H PRN PRN Reason: PAIN Albuterol Sulfate (Ventolin 0.083% Nebulizer Soln -) 1 amp NEB Q4H PRN PRN Reason: SHORT OF BREATH/WHEEZING Last Admin: 09/16/17 22:19 Dose: 1 amp Aspirin (Asa -) 81 mg PO DAILY [facility] Last Admin: 09/16/17 09:52 Dose: 81 mg Budesonide/Formoterol Fumarate (Symbicort 160/4.5mcg -) 1 puff IH BID [facility] Last Admin: 09/16/17 22:02 Dose: 1 puff Cholecalciferol (Vitamin D3 -) 2,000 unit PO DAILY [facility] Last Admin: 09/16/17 09:52 Dose: 2,000 unit Ferrous Sulfate (Feosol -) 325 mg PO BID [facility] Last Admin: 09/16/17 21:55 Dose: 325 mg Furosemide (Lasix -) 40 mg PO BID@0600,1400 [facility] Last Admin: 09/16/17 13:59 Dose: 40 mg Furosemide (Lasix Injection -) 20 mg IVPUSH ONCE PRN PRN Reason: SHORTNESS OF BREATH Last Admin: 09/05/17 22:23 Dose: 20 mg Insulin Aspart (Novolog Vial Sliding Scale -) 1 vial SQ ACHS [facility] PRN Reason: Protocol Last Admin: 09/16/17 21:56 Dose: 2 units Lidocaine (Lidoderm Patch -) 2 patch TP DAILY [facility] Last Admin: 09/16/17 09:53 Dose: 2 patch Meclizine HCl (Antivert -) 12.5 mg PO BID@0600,1800 [facility] Last Admin: 09/16/17 17:19 Dose: Not Given Methylprednisolone Sodium Succinate (Solu-Medrol -) 30 mg IVPUSH BID [facility] Last Admin: 09/16/17 21:58 Dose: 30 mg Miscellaneous (Lidoderm Patch Removal) 1 each MC DAILY@2200 [facility] Last Admin: 09/16/17 22:03 Dose: 1 each Nifedipine (Procardia Xl -) 30 mg PO DAILY [facility] Last Admin: 09/16/17 09:52 Dose: 30 mg Cyclosporine [ Restasis] 0.05% Eye Drops 1 each OU BID [facility] Last Admin: 09/16/17 22:03 Dose: 1 each Nystatin (Nystop Powder -) 1 applic TP BID [facility] Last Admin: 09/16/17 22:03 Dose: 1 applic Nystatin (Nystatin Oral Suspension -) 500,000 units PO TID [facility] Last Admin: 09/16/17 21:55 Dose: 500,000 units Pantoprazole Sodium (Protonix -) 40 mg PO DAILY [facility] Last Admin: 09/16/17 09:52 Dose: 40 mg Polyethylene Glycol (Miralax (For Daily Use) -) 17 gm PO DAILY [facility] Last Admin: 09/16/17 09:59 Dose: 17 grams Rosuvastatin Calcium (Crestor -) 10 mg PO HS [facility] Last Admin: 09/16/17 21:55 Dose: 10 mg Senna (Senna -) 1 tab PO BID [facility] Last Admin: 09/16/17 21:55 Dose: 1 tab Sodium Chloride ([place] Nasal [place] -) 2 spray NS BID [facility] Last Admin: 09/16/17 22:03 Dose: Not Given Valsartan (Diovan -) 160 mg PO DAILY [facility] Last Admin: 09/16/17 09:52 Dose: 160 mg Warfarin Sodium (Coumadin -) 3 mg PO DAILY@1800 [facility] Last Admin: 09/15/17 17:23 Dose: 3 mg - Objective Vital Signs: Vital Signs Temperature 98.8 F 09/16/17 20:57 Pulse Rate 106 H 09/16/17 20:57 Respiratory Rate 22 09/16/17 20:57 Blood Pressure 128/63 09/16/17 20:57 O2 Sat by Pulse Oximetry (%) 97 09/16/17 21:00 Labs: CBC, BMP 09/16/17 07:30 09/15/17 06:50 INR, PTT INR 3.01 (0.82-1.09) H 09/16/17 07:30 Problem List - Problems (1) COPD exacerbation Code(s): J44.1 - CHRONIC OBSTRUCTIVE PULMONARY DISEASE W (ACUTE) EXACERBATION (2) Chronic diastolic (congestive) heart failure Code(s): I50.32 - CHRONIC DIASTOLIC (CONGESTIVE) HEART FAILURE (3) History of pulmonary embolism Code(s): Z86.711 - PERSONAL HISTORY OF PULMONARY EMBOLISM (4) Hypertension Code(s): I10 - ESSENTIAL (PRIMARY) HYPERTENSION (5) Coronary artery disease Code(s): I25.10 - ATHSCL HEART DISEASE OF [place] CORONARY ARTERY W/O ANG PCTRS (6) HLD (hyperlipidemia) Code(s): E78.5 - HYPERLIPIDEMIA, UNSPECIFIED (7) Hemorrhoid Code(s): K64.9 - UNSPECIFIED HEMORRHOIDS (8) Conjunctival hemorrhage of right eye Code(s): H11.31 - CONJUNCTIVAL HEMORRHAGE, RIGHT EYE (9) Morbid obesity Code(s): E66.01 - MORBID (SEVERE) OBESITY DUE TO EXCESS CALORIES (10) DVT (deep venous thrombosis) Code(s): I82.409 - ACUTE EMBOLISM AND THOMBOS UNSP DEEP VN UNSP LOWER EXTREMITY
[2017-09-17] MEDS: NYSTATIN 500,000 UNITS/5 ML SUSPENSION PO SCH ×3 (06:12→23:13)
[2017-09-17] MEDS: MECLIZINE HCL 12.5 MG TABLET PO SCH ×2 (06:12→17:07)
[2017-09-17] MEDS: FUROSEMIDE 40 MG TABLET (FP) PO SCH ×2 (06:12→14:45)
[2017-09-17] MEDS: INSULIN SLIDING SCALE (NOVOLOG) 1 VIAL SQ SCH ×4 (06:13→23:16)
[2017-09-17] MEDS: ALBUTEROL SO4 0.083% IH SOL 2.5 MG/3 ML VIAL.NEB. NEB PRN ×5 (06:23→22:27)
[2017-09-17 08:14] LABS: INR 3.03 (0.82-1.09); PROTHROMBIN TIME (PATIENT) 34.2 SEC (9.98-11.88)
[2017-09-17 08:28] LABS: BASOPHIL 0.3 % (0-2.0); EOSINOPHIL 0.1 % (0-4.5); MCH 23.7 pg (25.7-33.7); MCHC 29.7 g/dl (32.0-36.0); MEAN CELL VOLUME 79.9 fl (80-96); MEAN PLT VOLUME 8.6 fl (7.5-11.1); NEUTROPHILS 91.1 % (42.8-82.8); PLATELET COUNT 104 K/MM3 (134-434); RDW 15.9 % (11.6-15.6); WHITE BLOOD COUNT 9.7 K/mm3 (4.0-10.0)
[2017-09-17 08:36] LABS: ALBUMIN 2.9 g/dl (3.4-5.0); BILIRUBIN,TOTAL 0.6 mg/dL (0.2-1.0); CALCIUM 7.9 mg/dL (8.5-10.1); CREATININE 1.3 mg/dL (0.55-1.02); GLUCOSE,RANDOM 274 mg/dL (74-106); SGOT/AST 17 U/L (15-37); SGPT/ALT 41 U/L (12-78); TOT PROT 5.1 g/dl (6.4-8.2)
[2017-09-17 08:37] LABS: ALK PHOS 62 U/L (45-117)
[2017-09-17 08:48] LABS: ANION GAP -2 (8-16); CO2 50 mmol/L (21-32)
--- NOTE | 2017-09-17 09:43 | PN ---
Progress Note, Physician Chief Complaint: feels tired Hb drifting down again - Current Medication List Current Medications: Active Medications Acetaminophen (Tylenol -) 1,000 mg PO Q8H PRN PRN Reason: PAIN Albuterol Sulfate (Ventolin 0.083% Nebulizer Soln -) 1 amp NEB Q4H PRN PRN Reason: SHORT OF BREATH/WHEEZING Last Admin: 09/17/17 06:23 Dose: 1 amp Budesonide/Formoterol Fumarate (Symbicort 160/4.5mcg -) 1 puff IH BID [facility] Last Admin: 09/16/17 22:02 Dose: 1 puff Cholecalciferol (Vitamin D3 -) 2,000 unit PO DAILY [facility] Last Admin: 09/16/17 09:52 Dose: 2,000 unit Ferrous Sulfate (Feosol -) 325 mg PO BID [facility] Last Admin: 09/16/17 21:55 Dose: 325 mg Furosemide (Lasix -) 40 mg PO BID@0600,1400 [facility] Last Admin: 09/17/17 06:12 Dose: 40 mg Furosemide (Lasix Injection -) 20 mg IVPUSH ONCE PRN PRN Reason: SHORTNESS OF BREATH Last Admin: 09/05/17 22:23 Dose: 20 mg Insulin Aspart (Novolog Vial Sliding Scale -) 1 vial SQ ACHS [facility] PRN Reason: Protocol Last Admin: 09/17/17 06:13 Dose: 6 units Lidocaine (Lidoderm Patch -) 2 patch TP DAILY [facility] Last Admin: 09/16/17 09:53 Dose: 2 patch Meclizine HCl (Antivert -) 12.5 mg PO BID@0600,1800 [facility] Last Admin: 09/17/17 06:12 Dose: 12.5 mg Methylprednisolone Sodium Succinate (Solu-Medrol -) 30 mg IVPUSH BID [facility] Last Admin: 09/16/17 21:58 Dose: 30 mg Miscellaneous (Lidoderm Patch Removal) 1 each MC DAILY@2200 [facility] Last Admin: 09/16/17 22:03 Dose: 1 each Nifedipine (Procardia Xl -) 30 mg PO DAILY [facility] Last Admin: 09/16/17 09:52 Dose: 30 mg Cyclosporine [ Restasis] 0.05% Eye Drops 1 each OU BID [facility] Last Admin: 09/16/17 22:03 Dose: 1 each Nystatin (Nystop Powder -) 1 applic TP BID [facility] Last Admin: 09/16/17 22:03 Dose: 1 applic Nystatin (Nystatin Oral Suspension -) 500,000 units PO TID [facility] Last Admin: 09/17/17 06:12 Dose: 500,000 units Pantoprazole Sodium (Protonix -) 40 mg PO DAILY [facility] Last Admin: 09/16/17 09:52 Dose: 40 mg Polyethylene Glycol (Miralax (For Daily Use) -) 17 gm PO DAILY [facility] Last Admin: 09/16/17 09:59 Dose: 17 grams Rosuvastatin Calcium (Crestor -) 10 mg PO HS [facility] Last Admin: 09/16/17 21:55 Dose: 10 mg Senna (Senna -) 1 tab PO BID [facility] Last Admin: 09/16/17 21:55 Dose: 1 tab Sodium Chloride ([place] Nasal [place] -) 2 spray NS BID [facility] Last Admin: 09/16/17 22:03 Dose: Not Given Valsartan (Diovan -) 160 mg PO DAILY [facility] Last Admin: 09/16/17 09:52 Dose: 160 mg - Objective Vital Signs: Vital Signs Temperature 98.3 F 09/17/17 06:00 Pulse Rate 112 H 09/17/17 06:00 Respiratory Rate 22 09/17/17 06:00 Blood Pressure 155/73 09/17/17 06:00 O2 Sat by Pulse Oximetry (%) 97 09/16/17 21:00 Constitutional: Yes: No Distress Cardiovascular: Yes: Regular Rate and Rhythm Respiratory: Yes: Other (decreased breath sounds b/l) Gastrointestinal: Yes: Soft, Abdomen, Obese Edema: No Neurological: Yes: Alert Labs: CBC, BMP 09/17/17 06:30 09/17/17 06:00 INR, PTT INR 3.03 (0.82-1.09) H 09/17/17 06:30 Assessment/Plan Assessment/Plan SOB AECOPD Acute on chronic diastolic CHF, mild exacerbation History of PE on coumadin REC: 1. CHF: chronic diastolic CHF -Mild CAD on recent cath. Will hold ASA in setting of recurrent anemia. -Recent echo in February with normal LV function -cont po Lasix with IV doses prn -cont other current meds -monitor Daily weights, lI/Os, electrolytes 2. AE COPD: -as per pulmonary -additionally chronic PHTN due to COPD/PE resulting in right sided CHF symptoms 3. History of PEs on coumadin: Holding Coumadin again in setting of drifting H/H -Stool guiac negative earlier in admission 4.Anemia: -recurrent drift in H/H -Stool guaiac negative earlier in admission -Holding ASA and Coumadin for now
--- NOTE | 2017-09-17 10:53 | PN ---
Progress Note (short form) - Note Progress Note: PULMONARY FEELS WEAK VSS/AFEBRILE ANICTERIC SCATTERED B/L RHONCHI/EXP WHEEZE S1S2 BS+ OBESE NO ANKLE EDEMA LABS/MEDS/NOTES/IMAGING REVIEWED IMP ACUTE ON CHRONIC HYPOXEMIC/HYPERCAPNEIC RESPIRATORY FAILURE END STAGE COPD O2 DEPENDENT WITH ACUTE EXACERBATION URI DIASTOLIC HF PULMONARY HTN H/O RECURRENT PULMONARY EMBOLI HTN MORBID OBESITY ANEMIA S/P TRANSFUSION NOW HGB 7.1GMS PLAN IV STEROIDS TAPERING SUPPLEMENTAL O2 VIA VM INHALED BRONCHODILATORS NIPPV NEEDED DIURETICS SUGGEST PRBC'S/KEEP HGB 8GMS OR ABOVE REPEAT CXR R NICK ADAMS
--- NOTE | 2017-09-17 11:46 | PN ---
Progress Note (short form) - Note Progress Note: Seen and examined continues to feel better. cough improved as per her O/E: Morbid obseity On O2. HEENT: [place], EOM Intact Cor: RSR, No murmurs, No gallops Lungs: Clear to P&A.scattered rhonchi Abd: Soft, Normal bowel sounds, No organomegaly Ext:chronic edema eye: very mild erythema present, much improved from last week. Last Vital Signs Temp Pulse Resp BP Pulse Ox 98.3 F 112 H 22 155/73 97 09/17/17 06:00 09/17/17 06:00 09/17/17 06:00 09/17/17 06:00 09/16/17 21:00 CBC, BMP 09/17/17 06:30 09/17/17 06:00 INR, PTT INR 3.03 (0.82-1.09) H 09/17/17 06:30 Assessment/Plan: COPD - with acute exacerbation - stable/improved, pulm f/u noted History of thromboembolic disease on coumadin, will monitor inr, continue to hold coumadin ( goal of 2-3) Anemia ( stool occult negative x2, ACD/ACI, CKD, Beta thal minor) , transfuse one unit PRBC today, slowly. Thrombocytopenia - improving, no signs of infection/meds/the hematoma could be a possibility ( which now is improving). cardiology f/u noted, ASA on hold Continue to monitor. d/w BRUCE
[2017-09-17] MEDS: SENNOSIDES 8.6MG TABLET (FP) PO SCH ×2 (11:47→23:13)
[2017-09-17] MEDS: VALSARTAN 160 MG TABLET (UD) PO SCH (11:47)
[2017-09-17] MEDS: PANTOPRAZOLE 40 MG TABLET (FP) PO SCH (11:47)
[2017-09-17] MEDS: CHOLECALCIFEROL (VITAMIN D3) 1,000 UNIT TABLET (FP) PO SCH (11:47)
[2017-09-17] MEDS: FERROUS SO4 325 MG TABLET (FP) PO SCH (11:47)
[2017-09-17] MEDS: NIFEdipine E.R. 30 MG TABLET (FP) PO SCH (11:47)
[2017-09-17] MEDS: POLYETHYLENE GLYCOL 3350 119 GM BTL PO SCH (11:48)
[2017-09-17] MEDS: LIDOCAINE 5% TOPICAL PATCH TP SCH (11:48)
[2017-09-17] MEDS: BENZOCAINE 28 GM HEMORRHOIDAL OINTMENT PR PRN (11:50)
[2017-09-17] MEDS: SODIUM CHLORIDE NASAL SPRAY 44 ML BOTTLE NS SCH ×2 (11:51→23:17)
[2017-09-17] MEDS: BUDESONIDE/FORMETEROL FUMARATE 160/4.5 mcg INHALER IH SCH ×2 (11:51→23:14)
[2017-09-17] MEDS: PHENYLEPH/MINERAL OIL/PETROLAT 28 GM OINTMENT RC SCH ×2 (11:52→23:17)
--- NOTE | 2017-09-17 13:13 | PN ---
Progress Note (short form) - Note Progress Note: Medical coverage for Dr. Whitlock Subjective: The patient was seen and examined at the bedside, she reports feeling better today. She states she is having some weakness Hgb 7.1, 1u PRBC ordered Current Medications Generic Name Dose Route Start Last Admin Trade Name Freq PRN Reason Stop Dose Admin Acetaminophen 1,000 mg 09/06/17 14:52 Tylenol - PO Q8H PRN PAIN Albuterol Sulfate 1 amp 09/16/17 12:01 09/17/17 09:58 Ventolin 0.083% Nebulizer Soln - NEB 1 amp Q4H PRN Administration SHORT OF BREATH/WHEEZING Benzocaine 1 applic 09/17/17 10:31 09/17/17 11:50 [place]aine Ointment - NM 1 applic PRN PRN Administration PAIN Budesonide/Formoterol Fumarate 1 puff 08/21/17 10:00 09/17/17 11:51 Symbicort 160/4.5mcg - IH 1 puff BID [facility] Administration Cholecalciferol 2,000 unit 08/21/17 10:00 09/17/17 11:47 Vitamin D3 - PO 2,000 unit DAILY [facility] Administration Ferrous Sulfate 325 mg 09/15/17 10:00 09/17/17 11:47 Feosol - PO 325 mg BID [facility] Administration Furosemide 40 mg 09/01/17 14:00 09/17/17 06:12 Lasix - PO 40 mg BID@0600,1400 [facility] Administration Furosemide 20 mg 09/05/17 12:16 09/05/17 22:23 Lasix Injection - IVPUSH 20 mg ONCE PRN Administration SHORTNESS OF BREATH Insulin Aspart 1 vial 08/21/17 07:00 09/17/17 06:13 Novolog Vial Sliding Scale - SQ 6 units ACHS [facility] Administration Protocol Lidocaine 2 patch 09/06/17 14:53 09/17/17 11:48 Lidoderm Patch - TP 2 patch DAILY [facility] Administration Meclizine HCl 12.5 mg 09/14/17 22:00 09/17/17 06:12 Antivert - PO 12.5 mg BID@0600,1800 [facility] Administration Methylprednisolone Sodium Succinate 20 mg 09/17/17 10:51 Solu-Medrol - IVPUSH BID [facility] Miscellaneous 1 each 09/04/17 22:00 09/16/17 22:03 Lidoderm Patch Removal MC 1 each DAILY@2200 [facility] Administration Nifedipine 30 mg 08/21/17 10:00 09/17/17 11:47 Procardia Xl - PO 30 mg DAILY [facility] Administration Cyclosporine [ 1 each 08/29/17 22:00 09/17/17 11:48 Restasis] 0.05% Eye OU 1 each Drops BID [facility] Administration Nystatin 1 applic 08/21/17 22:00 09/16/17 22:03 Nystop Powder - TP 1 applic BID [facility] Administration Nystatin 500,000 units 08/26/17 22:00 09/17/17 06:12 Nystatin Oral Suspension - PO 500,000 units TID [facility] Administration Pantoprazole Sodium 40 mg 08/21/17 10:00 09/17/17 11:47 Protonix - PO 40 mg DAILY [facility] Administration Polyethylene Glycol 17 gm 09/03/17 04:00 09/17/17 11:48 Miralax (For Daily Use) - PO 17 grams DAILY [facility] Administration Rosuvastatin Calcium 10 mg 08/21/17 22:00 09/16/17 21:55 Crestor - PO 10 mg HS [facility] Administration Senna 1 tab 08/23/17 22:00 09/17/17 11:47 Senna - PO 1 tab BID [facility] Administration Sodium Chloride 2 spray 08/27/17 22:00 09/17/17 11:51 [place] Nasal [place] - NS Not Given BID [facility] Valsartan 160 mg 08/21/17 10:00 09/17/17 11:47 Diovan - PO 160 mg DAILY [facility] Administration Objective: Vital Signs Period Temp Pulse Resp BP Sys/Nielsen Pulse Ox Last 24 Hr 98.3 F-98.8 F 102-112 22-24 121-155/55-78 97 Physical Exam General: NAD, A&Ox3, morbidly obese Lungs: mild end expiratory wheezing Heart: RRR, S1S2 Abd: Soft, non-tender, non-distended Ext: Large LUE hematoma. Warm, 2+ pitting edema bilaterally Neuro: CN 2-12 intact CBCD WBC 9.7 K/mm3 (4.0-10.0) 09/17/17 06:30 RBC 3.01 M/mm3 (3.60-5.2) L 09/17/17 06:30 Hgb 7.1 GM/dL (10.7-15.3) L 09/17/17 06:30 Hct 24.0 % (32.4-45.2) L 09/17/17 06:30 MCV 79.9 fl (80-96) L 09/17/17 06:30 MCHC 29.7 g/dl (32.0-36.0) L 09/17/17 06:30 RDW 15.9 % (11.6-15.6) H 09/17/17 06:30 Plt Count 104 K/MM3 (134-434) L 09/17/17 06:30 MPV 8.6 fl (7.5-11.1) 09/17/17 06:30 CMP Sodium 141 mmol/L (136-145) 09/17/17 06:00 Potassium 4.3 mmol/L (3.5-5.1) 09/17/17 06:00 Chloride 93 mmol/L (98-107) L 09/17/17 06:00 Carbon Dioxide 50 mmol/L (21-32) H 09/17/17 06:00 Anion Gap -2 (8-16) L 09/17/17 06:00 BUN 38 mg/dL (7-18) H 09/17/17 06:00 Creatinine 1.3 mg/dL (0.55-1.02) H 09/17/17 06:00 Creat Clearance w eGFR 40.61 (>60) 09/17/17 06:00 Random Glucose 274 mg/dL (74-106) H 09/17/17 06:00 Calcium 7.9 mg/dL (8.5-10.1) L 09/17/17 06:00 Total Bilirubin 0.6 mg/dL (0.2-1.0) 09/17/17 06:00 AST 17 U/L (15-37) 09/17/17 06:00 ALT 41 U/L (12-78) 09/17/17 06:00 Alkaline Phosphatase 62 U/L (45-117) 09/17/17 06:00 Total Protein 5.1 g/dl (6.4-8.2) L 09/17/17 06:00 Albumin 2.9 g/dl (3.4-5.0) L 09/17/17 06:00 CARDIAC ENZYMES Creatine Kinase 184 IU/L (26-192) 08/20/17 16:46 Troponin I < 0.02 ng/ml (0.00-0.05) 08/20/17 16:46 Microbiology 08/20/17 16:46 Blood - Peripheral Venous Blood Culture - Final NO GROWTH AFTER 5 DAYS INCUBATION 08/20/17 16:46 Blood - Peripheral Venous Blood Culture - Final NO GROWTH AFTER 5 DAYS INCUBATION 08/20/17 19:47 Urine - Urine Clean Catch Urine Culture - Final NO GROWTH OBTAINED Assessment: This is a 67 year old female with PMHx of COPD (on 4L NC at home), PE, morbid obesity, who presented to the ED with shortness of breath. Plan: 1) Acute on chronic hypoxemic/hypercapneic respiratory failure, end stage COPD with acute exacerbation - O2 via NC prn - Continue IV steroids and taper per pulmonary - Continue Albuterol nebulizer - Continue Symbicort - Appreciate pulmonary consult 2) Anemia - Likely 2/2 large LUE hematoma - Hgb 7.1 today, will give 1u PRBC slowly - Stool for occult blood negative x2 - Not iron deficient, will stop ferrous sulfate per hematology as it is causing constipation - Appreciate hematology consult 3) Chronic diastolic heart failure - Continue Lasix - ECHO in 02/2017 with normal LV function - Daily weights - Strict I&Os Mild CAD - on recent cardiac cath, holding ASA in setting of recurrent anemia 4) Hx of recurrent PEs on coumadin - Hold coumadin in the setting of downtrending Hgb requiring PRBCs 5) CKD - Stable - Continue to trend 5) F/E/N: - Sodium controlled diet - Monitor electrolytes 6) Prophylaxis: - OOB to chair - Hold all chemical DVT prophylaxis 2/2 downtrending Hgb 7) Dispo: - Requires continued inpatient care CODE STATUS: FULL CODE Visit type - Emergency Visit Emergency Visit: Yes ED Registration Date: 08/20/17 Care time: The patient presented to the Emergency Department on the above date and was hospitalized for further evaluation of their emergent condition. - New Patient This patient is new to me today: Yes Date on this admission: 09/17/17 - Critical Care Critical Care patient: No
[2017-09-17] MEDS: methylPREDNISolone NA SUCC 40 MG/1 ML VIAL IVPUSH SCH ×2 (14:46→23:13)
[2017-09-17] MEDS: NYSTATIN POWDER 100,000 UNITS/GM - 15 GM TOPICAL POWDER TP SCH ×2 (14:46→23:17)
[2017-09-17] MEDS ORDERED: PT OWN MED DRAWER 7, Y5N ONE (21:24)
[2017-09-17] MEDS: ROSUVASTATIN CA 10 MG TABLET (FP) PO SCH (23:13)
[2017-09-17] MEDS: LIDOCAINE PATCH REMOVAL MC SCH (23:17)
[2017-09-18] MEDS: FUROSEMIDE 40 MG TABLET (FP) PO SCH ×2 (06:20→14:50)
[2017-09-18] MEDS: NYSTATIN 500,000 UNITS/5 ML SUSPENSION PO SCH ×3 (06:21→22:24)
[2017-09-18] MEDS: INSULIN SLIDING SCALE (NOVOLOG) 1 VIAL SQ SCH ×4 (06:23→22:29)
[2017-09-18] MEDS: MECLIZINE HCL 12.5 MG TABLET PO SCH ×3 (06:24→18:01)
[2017-09-18] MEDS: ALBUTEROL SO4 0.083% IH SOL 2.5 MG/3 ML VIAL.NEB. NEB PRN ×3 (06:35→14:05)
[2017-09-18 07:40] LABS: BASOPHIL 0.2 % (0-2.0); MCH 24.3 pg (25.7-33.7); MCHC 29.9 g/dl (32.0-36.0); MEAN CELL VOLUME 81.4 fl (80-96); MEAN PLT VOLUME 8.5 fl (7.5-11.1); NEUTROPHILS 89.3 % (42.8-82.8); PLATELET COUNT 106 K/MM3 (134-434); RDW 15.6 % (11.6-15.6); WHITE BLOOD COUNT 8.8 K/mm3 (4.0-10.0)
[2017-09-18 08:01] LABS: INR 2.4 (0.82-1.09); PROTHROMBIN TIME (PATIENT) 27.1 SEC (9.98-11.88)
[2017-09-18 08:06] LABS: ALBUMIN 2.9 g/dl (3.4-5.0); ALK PHOS 59 U/L (45-117); BILIRUBIN,TOTAL 0.9 mg/dL (0.2-1.0); CALCIUM 7.9 mg/dL (8.5-10.1); CREATININE 1.2 mg/dL (0.55-1.02); GLUCOSE,RANDOM 210 mg/dL (74-106); SGOT/AST 18 U/L (15-37); SGPT/ALT 39 U/L (12-78); TOT PROT 5.2 g/dl (6.4-8.2)
[2017-09-18 09:05] LABS: ANION GAP -2 (8-16); CO2 51 mmol/L (21-32)
--- NOTE | 2017-09-18 09:57 | PN ---
Progress Note, Physician History of Present Illness: stable on treatment feels slightly better - Current Medication List Current Medications: Active Medications Acetaminophen (Tylenol -) 1,000 mg PO Q8H PRN PRN Reason: PAIN Albuterol Sulfate (Ventolin 0.083% Nebulizer Soln -) 1 amp NEB Q4H PRN PRN Reason: SHORT OF BREATH/WHEEZING Last Admin: 09/18/17 09:54 Dose: 1 amp Benzocaine (Americaine Ointment -) 1 applic CO PRN PRN PRN Reason: PAIN Last Admin: 09/17/17 11:50 Dose: 1 applic Budesonide/Formoterol Fumarate (Symbicort 160/4.5mcg -) 1 puff IH BID [facility] Last Admin: 09/17/17 23:14 Dose: 1 puff Cholecalciferol (Vitamin D3 -) 2,000 unit PO DAILY [facility] Last Admin: 09/17/17 11:47 Dose: 2,000 unit Furosemide (Lasix -) 40 mg PO BID@0600,1400 [facility] Last Admin: 09/18/17 06:20 Dose: 40 mg Furosemide (Lasix Injection -) 20 mg IVPUSH ONCE PRN PRN Reason: SHORTNESS OF BREATH Last Admin: 09/05/17 22:23 Dose: 20 mg Insulin Aspart (Novolog Vial Sliding Scale -) 1 vial SQ ACHS [facility] PRN Reason: Protocol Last Admin: 09/18/17 06:23 Dose: 4 units Lidocaine (Lidoderm Patch -) 2 patch TP DAILY [facility] Last Admin: 09/17/17 11:48 Dose: 2 patch Meclizine HCl (Antivert -) 12.5 mg PO BID@0600,1800 [facility] Last Admin: 09/18/17 06:24 Dose: Not Given Methylprednisolone Sodium Succinate (Solu-Medrol -) 20 mg IVPUSH BID [facility] Last Admin: 09/17/17 23:13 Dose: 20 mg Miscellaneous (Lidoderm Patch Removal) 1 each MC DAILY@2200 [facility] Last Admin: 09/17/17 23:17 Dose: 1 each Nifedipine (Procardia Xl -) 30 mg PO DAILY [facility] Last Admin: 09/17/17 11:47 Dose: 30 mg Cyclosporine [ Restasis] 0.05% Eye Drops 1 each OU BID [facility] Last Admin: 09/17/17 23:17 Dose: 1 each Nystatin (Nystop Powder -) 1 applic TP BID [facility] Last Admin: 09/17/17 23:17 Dose: 1 applic Nystatin (Nystatin Oral Suspension -) 500,000 units PO TID [facility] Last Admin: 09/18/17 06:21 Dose: 500,000 units Pantoprazole Sodium (Protonix -) 40 mg PO DAILY [facility] Last Admin: 09/17/17 11:47 Dose: 40 mg Polyethylene Glycol (Miralax (For Daily Use) -) 17 gm PO DAILY [facility] Last Admin: 09/17/17 11:48 Dose: 17 grams Rosuvastatin Calcium (Crestor -) 10 mg PO HS [facility] Last Admin: 09/17/17 23:13 Dose: 10 mg Senna (Senna -) 1 tab PO BID [facility] Last Admin: 09/17/17 23:13 Dose: 1 tab Sodium Chloride ([place] Nasal [place] -) 2 spray NS BID [facility] Last Admin: 09/17/17 23:17 Dose: Not Given Valsartan (Diovan -) 160 mg PO DAILY [facility] Last Admin: 09/17/17 11:47 Dose: 160 mg - Objective Vital Signs: Vital Signs Temperature 97.3 F L 09/18/17 06:19 Pulse Rate 101 H 09/18/17 09:55 Respiratory Rate 18 09/18/17 06:19 Blood Pressure 117/66 09/18/17 06:19 O2 Sat by Pulse Oximetry (%) 94 L 09/18/17 09:55 Constitutional: Yes: No Distress, Calm, Obese Cardiovascular: Yes: Regular Rate and Rhythm Respiratory: Yes: Poor Air Entry Gastrointestinal: Yes: Normal Bowel Sounds, Soft Musculoskeletal: Yes: WNL Extremities: Yes: WNL Neurological: Yes: Alert, Oriented Psychiatric: Yes: Alert, Oriented Labs: CBC, BMP 09/18/17 06:00 09/18/17 06:00 INR, PTT INR 2.40 (0.82-1.09) H 09/18/17 06:00 Assessment/Plan Problem List - Problems (1) SOB (shortness of breath) Code(s): R06.02 - SHORTNESS OF BREATH (2) Acute on chronic respiratory failure with hypoxia and hypercapnia Code(s): J96.21 - ACUTE AND CHRONIC RESPIRATORY FAILURE WITH HYPOXIA J96.22 - ACUTE AND CHRONIC RESPIRATORY FAILURE WITH HYPERCAPNIA (3) Anemia Code(s): D64.9 - ANEMIA, UNSPECIFIED (4) CHF (congestive heart failure) Code(s): I50.9 - HEART FAILURE, UNSPECIFIED (5) COPD exacerbation Code(s): J44.1 - CHRONIC OBSTRUCTIVE PULMONARY DISEASE W (ACUTE) EXACERBATION (6) Chronic diastolic (congestive) heart failure Code(s): I50.32 - CHRONIC DIASTOLIC (CONGESTIVE) HEART FAILURE (7) Coronary artery disease Code(s): I25.10 - ATHSCL HEART DISEASE OF [place] CORONARY ARTERY W/O ANG PCTRS (8) History of pulmonary embolism Code(s): Z86.711 - PERSONAL HISTORY OF PULMONARY EMBOLISM (9) Morbid obesity Code(s): E66.01 - MORBID (SEVERE) OBESITY DUE TO EXCESS CALORIES (10) Pulmonary hypertension Code(s): I27.2 - OTHER SECONDARY PULMONARY HYPERTENSION * DO NOT USE * plan continue resp support incentive schuyler rest as per primary team
[2017-09-18] MEDS ORDERED: PT OWN MED DRAWER 7, Y5N ONE ×3 (10:57→20:10)
[2017-09-18] MEDS: methylPREDNISolone NA SUCC 40 MG/1 ML VIAL IVPUSH SCH (11:00)
[2017-09-18] MEDS: PANTOPRAZOLE 40 MG TABLET (FP) PO SCH (11:01)
[2017-09-18] MEDS: NIFEdipine E.R. 30 MG TABLET (FP) PO SCH (11:01)
[2017-09-18] MEDS: SENNOSIDES 8.6MG TABLET (FP) PO SCH ×2 (11:01→22:24)
[2017-09-18] MEDS: VALSARTAN 160 MG TABLET (UD) PO SCH (11:01)
[2017-09-18] MEDS: CHOLECALCIFEROL (VITAMIN D3) 1,000 UNIT TABLET (FP) PO SCH (11:01)
[2017-09-18] MEDS: LIDOCAINE 5% TOPICAL PATCH TP SCH (11:02)
[2017-09-18] MEDS: BUDESONIDE/FORMETEROL FUMARATE 160/4.5 mcg INHALER IH SCH ×2 (11:03→22:24)
--- NOTE | 2017-09-18 11:03 | PN ---
Progress Note (short form) - Note Progress Note: PULMONARY FEELS WEAK VSS/AFEBRILE ANICTERIC SCATTERED B/L RHONCHI/EXP WHEEZE S1S2 BS+ OBESE NO ANKLE EDEMA LABS/MEDS/NOTES/IMAGING REVIEWED IMP ACUTE ON CHRONIC HYPOXEMIC/HYPERCAPNEIC RESPIRATORY FAILURE END STAGE COPD O2 DEPENDENT WITH ACUTE EXACERBATION URI DIASTOLIC HF PULMONARY HTN H/O RECURRENT PULMONARY EMBOLI HTN MORBID OBESITY ANEMIA S/P TRANSFUSION NOW HGB 7.1GMS PLAN IV STEROIDS CHANGED TO PREDNISONE SUPPLEMENTAL O2 VIA VM INHALED BRONCHODILATORS NIPPV NEEDED DIURETICS SUGGEST PRBC'S/KEEP HGB 8GMS OR ABOVE Danny ROMERO MD
[2017-09-18] MEDS: NYSTATIN POWDER 100,000 UNITS/GM - 15 GM TOPICAL POWDER TP SCH ×2 (11:06→22:25)
[2017-09-18] MEDS: SODIUM CHLORIDE NASAL SPRAY 44 ML BOTTLE NS SCH ×2 (11:07→22:25)
[2017-09-18] MEDS: PHENYLEPH/MINERAL OIL/PETROLAT 28 GM OINTMENT RC SCH ×2 (11:07→22:25)
[2017-09-18] MEDS ORDERED: INSULIN (NOVOLOG) ASPART 100 UNITS/ML 10ML VIAL ONE (12:04)
[2017-09-18] MEDS: POLYETHYLENE GLYCOL 3350 119 GM BTL PO SCH (14:50)
--- NOTE | 2017-09-18 18:56 | PN ---
Progress Note (short form) - Note Progress Note: Patient seen and examined Denies any complaints Last Vital Signs Temp Pulse Resp BP Pulse Ox 98.4 F 102 H 24 113/68 94 L 09/18/17 14:48 09/18/17 14:48 09/18/17 14:48 09/18/17 14:48 09/18/17 09:55 Cor: RSR, No murmurs, No gallops Lungs: Clear to P&A Abd: Soft, Normal bowel sounds, No organomegaly Ext:No significant edema Abnormal Lab Results 09/18/17 09/18/17 09/18/17 06:00 06:00 06:00 RBC 3.31 L Hgb 8.1 L D Hct 27.0 L MCH 24.3 L MCHC 29.9 L Plt Count 106 L Neutrophils % 89.3 H Lymphocytes % 5.7 L D PT with INR 27.10 H INR 2.40 H Chloride 93 L Carbon Dioxide 51 H Anion Gap -2 L BUN 34 H Creatinine 1.2 H Random Glucose 210 H D Calcium 7.9 L Total Protein 5.2 L Albumin 2.9 L Active Medications Acetaminophen (Tylenol -) 1,000 mg PO Q8H PRN PRN Reason: PAIN Albuterol Sulfate (Ventolin 0.083% Nebulizer Soln -) 1 amp NEB Q4H PRN PRN Reason: SHORT OF BREATH/WHEEZING Last Admin: 09/18/17 14:05 Dose: 1 amp Benzocaine (Americaine Ointment -) 1 applic RI PRN PRN PRN Reason: PAIN Last Admin: 09/17/17 11:50 Dose: 1 applic Budesonide/Formoterol Fumarate (Symbicort 160/4.5mcg -) 1 puff IH BID [facility] Last Admin: 09/18/17 11:03 Dose: 1 puff Cholecalciferol (Vitamin D3 -) 2,000 unit PO DAILY [facility] Last Admin: 09/18/17 11:01 Dose: 2,000 unit Furosemide (Lasix -) 40 mg PO BID@0600,1400 [facility] Last Admin: 09/18/17 14:50 Dose: Not Given Furosemide (Lasix Injection -) 20 mg IVPUSH ONCE PRN PRN Reason: SHORTNESS OF BREATH Last Admin: 09/05/17 22:23 Dose: 20 mg Insulin Aspart (Novolog Vial Sliding Scale -) 1 vial SQ ACHS [facility] PRN Reason: Protocol Last Admin: 09/18/17 17:27 Dose: 6 units Lidocaine (Lidoderm Patch -) 2 patch TP DAILY [facility] Last Admin: 09/18/17 11:02 Dose: 2 patch Meclizine HCl (Antivert -) 12.5 mg PO BID@0600,1800 [facility] Last Admin: 09/18/17 18:01 Dose: 12.5 mg Miscellaneous (Lidoderm Patch Removal) 1 each MC DAILY@2200 [facility] Last Admin: 09/17/17 23:17 Dose: 1 each Nifedipine (Procardia Xl -) 30 mg PO DAILY [facility] Last Admin: 09/18/17 11:01 Dose: 30 mg Cyclosporine [ Restasis] 0.05% Eye Drops 1 each OU BID [facility] Last Admin: 09/18/17 11:06 Dose: 1 each Nystatin (Nystop Powder -) 1 applic TP BID [facility] Last Admin: 09/18/17 11:06 Dose: 1 applic Nystatin (Nystatin Oral Suspension -) 500,000 units PO TID [facility] Last Admin: 09/18/17 14:49 Dose: 500,000 units Pantoprazole Sodium (Protonix -) 40 mg PO DAILY [facility] Last Admin: 09/18/17 11:01 Dose: 40 mg Polyethylene Glycol (Miralax (For Daily Use) -) 17 gm PO DAILY [facility] Last Admin: 09/18/17 14:50 Dose: Not Given Prednisone (Deltasone -) 40 mg PO DAILY [facility] Rosuvastatin Calcium (Crestor -) 10 mg PO HS [facility] Last Admin: 09/17/17 23:13 Dose: 10 mg Senna (Senna -) 1 tab PO BID [facility] Last Admin: 09/18/17 11:01 Dose: 1 tab Sodium Chloride ([place] Nasal [place] -) 2 spray NS BID [facility] Last Admin: 09/18/17 11:07 Dose: Not Given Valsartan (Diovan -) 160 mg PO DAILY [facility] Last Admin: 09/18/17 11:01 Dose: 160 mg A/P 67 y/o patient with obesity, COPD exacerbation, CHF, h/o PE/DVT anemia--anemia of chronic disease ? blood loss from hematoma stool occult neg. x2 on 09/09, 09/05 Repeat iron studies--previously high protein studies neg check Hemolysis w/u coumadin/asa on hold--to resume based on clinical course To target Hgb of 8 given cardioresp. status
[2017-09-18] MEDS: LIDOCAINE PATCH REMOVAL MC SCH (22:24)
[2017-09-18] MEDS: ROSUVASTATIN CA 10 MG TABLET (FP) PO SCH (22:24)
--- NOTE | 2017-09-18 23:04 | PN ---
Progress Note, Physician History of Present Illness: No new changes. - Current Medication List Current Medications: Active Medications Acetaminophen (Tylenol -) 1,000 mg PO Q8H PRN PRN Reason: PAIN Albuterol Sulfate (Ventolin 0.083% Nebulizer Soln -) 1 amp NEB Q4H PRN PRN Reason: SHORT OF BREATH/WHEEZING Last Admin: 09/18/17 14:05 Dose: 1 amp Benzocaine (Americaine Ointment -) 1 applic NM PRN PRN PRN Reason: PAIN Last Admin: 09/17/17 11:50 Dose: 1 applic Budesonide/Formoterol Fumarate (Symbicort 160/4.5mcg -) 1 puff IH BID [facility] Last Admin: 09/18/17 22:24 Dose: 1 puff Cholecalciferol (Vitamin D3 -) 2,000 unit PO DAILY [facility] Last Admin: 09/18/17 11:01 Dose: 2,000 unit Furosemide (Lasix -) 40 mg PO BID@0600,1400 [facility] Last Admin: 09/18/17 14:50 Dose: Not Given Furosemide (Lasix Injection -) 20 mg IVPUSH ONCE PRN PRN Reason: SHORTNESS OF BREATH Last Admin: 09/05/17 22:23 Dose: 20 mg Insulin Aspart (Novolog Vial Sliding Scale -) 1 vial SQ ACHS [facility] PRN Reason: Protocol Last Admin: 09/18/17 22:29 Dose: 6 units Lidocaine (Lidoderm Patch -) 2 patch TP DAILY [facility] Last Admin: 09/18/17 11:02 Dose: 2 patch Meclizine HCl (Antivert -) 12.5 mg PO BID@0600,1800 [facility] Last Admin: 09/18/17 18:01 Dose: 12.5 mg Miscellaneous (Lidoderm Patch Removal) 1 each MC DAILY@2200 [facility] Last Admin: 09/18/17 22:24 Dose: 1 each Nifedipine (Procardia Xl -) 30 mg PO DAILY [facility] Last Admin: 09/18/17 11:01 Dose: 30 mg Cyclosporine [ Restasis] 0.05% Eye Drops 1 each OU BID [facility] Last Admin: 09/18/17 22:24 Dose: 1 each Nystatin (Nystop Powder -) 1 applic TP BID [facility] Last Admin: 09/18/17 22:25 Dose: 1 applic Nystatin (Nystatin Oral Suspension -) 500,000 units PO TID [facility] Last Admin: 09/18/17 22:24 Dose: 500,000 units Pantoprazole Sodium (Protonix -) 40 mg PO DAILY [facility] Last Admin: 09/18/17 11:01 Dose: 40 mg Polyethylene Glycol (Miralax (For Daily Use) -) 17 gm PO DAILY [facility] Last Admin: 09/18/17 14:50 Dose: Not Given Prednisone (Deltasone -) 40 mg PO DAILY [facility] Rosuvastatin Calcium (Crestor -) 10 mg PO HS [facility] Last Admin: 09/18/17 22:24 Dose: 10 mg Senna (Senna -) 1 tab PO BID [facility] Last Admin: 09/18/17 22:24 Dose: 1 tab Sodium Chloride ([place] Nasal [place] -) 2 spray NS BID [facility] Last Admin: 09/18/17 22:25 Dose: Not Given Valsartan (Diovan -) 160 mg PO DAILY [facility] Last Admin: 09/18/17 11:01 Dose: 160 mg - Objective Vital Signs: Vital Signs Temperature 98.6 F 09/18/17 18:05 Pulse Rate 107 H 09/18/17 18:05 Respiratory Rate 22 09/18/17 18:05 Blood Pressure 116/62 09/18/17 18:05 O2 Sat by Pulse Oximetry (%) 95 09/18/17 11:00 Constitutional: Yes: Well Nourished HENT: Yes: WNL Neck: Yes: WNL, Supple Cardiovascular: Yes: WNL, Regular Rate and Rhythm Respiratory: Yes: Diminished Gastrointestinal: Yes: WNL, Normal Bowel Sounds, Soft, Abdomen, Obese Labs: CBC, BMP 09/18/17 06:00 09/18/17 06:00 INR, PTT INR 2.40 (0.82-1.09) H 09/18/17 06:00 Problem List - Problems (1) COPD exacerbation Assessment/Plan: PO prednisone Cont nebulizers/spiriva/symbicort Ventimask prn Code(s): J44.1 - CHRONIC OBSTRUCTIVE PULMONARY DISEASE W (ACUTE) EXACERBATION (2) Chronic diastolic (congestive) heart failure Assessment/Plan: Cont lasix Monitor electrolytes Code(s): I50.32 - CHRONIC DIASTOLIC (CONGESTIVE) HEART FAILURE (3) History of pulmonary embolism Assessment/Plan: Monitor PT/inr Code(s): Z86.711 - PERSONAL HISTORY OF PULMONARY EMBOLISM (4) Hypertension Code(s): I10 - ESSENTIAL (PRIMARY) HYPERTENSION (5) Coronary artery disease Code(s): I25.10 - ATHSCL HEART DISEASE OF [place] CORONARY ARTERY W/O ANG PCTRS (6) HLD (hyperlipidemia) Code(s): E78.5 - HYPERLIPIDEMIA, UNSPECIFIED (7) Hemorrhoid Code(s): K64.9 - UNSPECIFIED HEMORRHOIDS (8) Conjunctival hemorrhage of right eye Code(s): H11.31 - CONJUNCTIVAL HEMORRHAGE, RIGHT EYE (9) Morbid obesity Code(s): E66.01 - MORBID (SEVERE) OBESITY DUE TO EXCESS CALORIES (10) DVT (deep venous thrombosis) Code(s): I82.409 - ACUTE EMBOLISM AND THOMBOS UNSP DEEP VN UNSP LOWER EXTREMITY
[2017-09-19] MEDS: MECLIZINE HCL 12.5 MG TABLET PO SCH ×2 (06:21→17:40)
[2017-09-19] MEDS: FUROSEMIDE 40 MG TABLET (FP) PO SCH ×2 (06:21→14:24)
[2017-09-19] MEDS: NYSTATIN 500,000 UNITS/5 ML SUSPENSION PO SCH ×3 (06:22→22:38)
[2017-09-19] MEDS: ALBUTEROL SO4 0.083% IH SOL 2.5 MG/3 ML VIAL.NEB. NEB PRN ×3 (06:25→17:36)
[2017-09-19] MEDS: INSULIN SLIDING SCALE (NOVOLOG) 1 VIAL SQ SCH ×4 (06:28→22:43)
[2017-09-19 08:27] LABS: BASOPHIL 0.4 % (0-2.0); EOSINOPHIL 1.3 % (0-4.5); MCH 24.1 pg (25.7-33.7); MCHC 29.4 g/dl (32.0-36.0); MEAN CELL VOLUME 81.9 fl (80-96); MEAN PLT VOLUME 8.4 fl (7.5-11.1); NEUTROPHILS 82.3 % (42.8-82.8); PLATELET COUNT 124 K/MM3 (134-434); RDW 15.9 % (11.6-15.6); WHITE BLOOD COUNT 7.7 K/mm3 (4.0-10.0)
[2017-09-19 08:40] LABS: INR 2.12 (0.82-1.09)
[2017-09-19 09:33] LABS: ALBUMIN 2.9 g/dl (3.4-5.0); ALK PHOS 61 U/L (45-117); BILIRUBIN,TOTAL 0.7 mg/dL (0.2-1.0); CALCIUM 8.1 mg/dL (8.5-10.1); CREATININE 1.3 mg/dL (0.55-1.02); FERRITIN 895.077 ng/ml (6.9-282.5); GLUCOSE,RANDOM 144 mg/dL (74-106); SGOT/AST 20 U/L (15-37); SGPT/ALT 39 U/L (12-78); TOT PROT 5.2 g/dl (6.4-8.2)
--- NOTE | 2017-09-19 10:07 | PN ---
Progress Note, Physician Chief Complaint: no new complaints - Current Medication List Current Medications: Active Medications Acetaminophen (Tylenol -) 1,000 mg PO Q8H PRN PRN Reason: PAIN Albuterol Sulfate (Ventolin 0.083% Nebulizer Soln -) 1 amp NEB Q4H PRN PRN Reason: SHORT OF BREATH/WHEEZING Last Admin: 09/19/17 06:25 Dose: 1 amp Benzocaine (Americaine Ointment -) 1 applic [place] PRN PRN PRN Reason: PAIN Last Admin: 09/17/17 11:50 Dose: 1 applic Budesonide/Formoterol Fumarate (Symbicort 160/4.5mcg -) 1 puff IH BID [facility] Last Admin: 09/18/17 22:24 Dose: 1 puff Cholecalciferol (Vitamin D3 -) 2,000 unit PO DAILY [facility] Last Admin: 09/18/17 11:01 Dose: 2,000 unit Furosemide (Lasix -) 40 mg PO BID@0600,1400 [facility] Last Admin: 09/19/17 06:21 Dose: 40 mg Furosemide (Lasix Injection -) 20 mg IVPUSH ONCE PRN PRN Reason: SHORTNESS OF BREATH Last Admin: 09/05/17 22:23 Dose: 20 mg Insulin Aspart (Novolog Vial Sliding Scale -) 1 vial SQ ACHS [facility] PRN Reason: Protocol Last Admin: 09/19/17 06:28 Dose: Not Given Lidocaine (Lidoderm Patch -) 2 patch TP DAILY [facility] Last Admin: 09/18/17 11:02 Dose: 2 patch Meclizine HCl (Antivert -) 12.5 mg PO BID@0600,1800 [facility] Last Admin: 09/19/17 06:21 Dose: 12.5 mg Miscellaneous (Lidoderm Patch Removal) 1 each MC DAILY@2200 [facility] Last Admin: 09/18/17 22:24 Dose: 1 each Nifedipine (Procardia Xl -) 30 mg PO DAILY [facility] Last Admin: 09/18/17 11:01 Dose: 30 mg Cyclosporine [ Restasis] 0.05% Eye Drops 1 each OU BID [facility] Last Admin: 09/18/17 22:24 Dose: 1 each Nystatin (Nystop Powder -) 1 applic TP BID [facility] Last Admin: 09/18/17 22:25 Dose: 1 applic Nystatin (Nystatin Oral Suspension -) 500,000 units PO TID [facility] Last Admin: 09/19/17 06:22 Dose: 500,000 units Pantoprazole Sodium (Protonix -) 40 mg PO DAILY [facility] Last Admin: 09/18/17 11:01 Dose: 40 mg Polyethylene Glycol (Miralax (For Daily Use) -) 17 gm PO DAILY [facility] Last Admin: 09/18/17 14:50 Dose: Not Given Prednisone (Deltasone -) 40 mg PO DAILY [facility] Rosuvastatin Calcium (Crestor -) 10 mg PO HS [facility] Last Admin: 09/18/17 22:24 Dose: 10 mg Senna (Senna -) 1 tab PO BID [facility] Last Admin: 09/18/17 22:24 Dose: 1 tab Sodium Chloride ([place] Nasal [place] -) 2 spray NS BID [facility] Last Admin: 09/18/17 22:25 Dose: Not Given Valsartan (Diovan -) 160 mg PO DAILY [facility] Last Admin: 09/18/17 11:01 Dose: 160 mg - Objective Vital Signs: Vital Signs Temperature 98.3 F 09/19/17 05:57 Pulse Rate 113 H 09/19/17 05:57 Respiratory Rate 22 09/19/17 05:57 Blood Pressure 125/93 09/19/17 05:57 O2 Sat by Pulse Oximetry (%) 98 09/18/17 21:00 Constitutional: Yes: No Distress, Calm Cardiovascular: Yes: Regular Rate and Rhythm Respiratory: Yes: Rhonchi, Other (decreased breath sounds b/l) Gastrointestinal: Yes: Soft, Abdomen, Obese Edema: No Neurological: Yes: Alert Labs: CBC, BMP 09/19/17 07:00 INR, PTT INR 2.12 (0.82-1.09) H 09/19/17 07:00 Laboratory Tests 09/17/17 09/17/17 09/17/17 06:00 06:30 06:30 WBC 9.7 Hgb 7.1 L Plt Count 104 L INR 3.03 H Potassium 4.3 Creatinine 1.3 H 09/19/17 09/19/17 09/19/17 07:00 07:00 07:00 WBC 7.7 Hgb 8.1 L Plt Count 124 L INR 2.12 H Potassium Pending Creatinine Pending - ....Imaging EKG: Image Reviewed Assessment/Plan Assessment/Plan SOB AECOPD Acute on chronic diastolic CHF, mild exacerbation History of PE on coumadin REC: 1. CHF: chronic diastolic CHF -Mild CAD on recent cath. Will hold ASA in setting of recurrent anemia. -Recent echo in February with normal LV function -cont po Lasix with IV doses prn -cont other current meds -monitor Daily weights, lI/Os, electrolytes 2. AE COPD: -as per pulmonary -additionally chronic PHTN due to COPD/PE resulting in right sided CHF symptoms 3. History of PEs on coumadin: Holding Coumadin again in setting of drifting H/H -Stool guiac negative earlier in admission 4.Anemia: -recurrent drift in H/H -Stool guaiac negative earlier in admission -Holding ASA and Coumadin for now
[2017-09-19] MEDS: SENNOSIDES 8.6MG TABLET (FP) PO SCH ×2 (10:52→22:38)
[2017-09-19] MEDS: CHOLECALCIFEROL (VITAMIN D3) 1,000 UNIT TABLET (FP) PO SCH (10:52)
[2017-09-19] MEDS: BENZOCAINE 28 GM HEMORRHOIDAL OINTMENT PR PRN (10:53)
[2017-09-19] MEDS: predniSONE 20 MG TABLET (UD) PO SCH (10:53)
[2017-09-19] MEDS: VALSARTAN 160 MG TABLET (UD) PO SCH (10:54)
[2017-09-19] MEDS: NIFEdipine E.R. 30 MG TABLET (FP) PO SCH (10:54)
[2017-09-19] MEDS: PANTOPRAZOLE 40 MG TABLET (FP) PO SCH (10:54)
[2017-09-19] MEDS: NYSTATIN POWDER 100,000 UNITS/GM - 15 GM TOPICAL POWDER TP SCH ×2 (10:54→22:38)
[2017-09-19] MEDS: PHENYLEPH/MINERAL OIL/PETROLAT 28 GM OINTMENT RC SCH ×2 (10:55→22:39)
[2017-09-19] MEDS: BUDESONIDE/FORMETEROL FUMARATE 160/4.5 mcg INHALER IH SCH ×2 (10:55→22:38)
[2017-09-19] MEDS: SODIUM CHLORIDE NASAL SPRAY 44 ML BOTTLE NS SCH ×2 (10:55→22:38)
[2017-09-19] MEDS: LIDOCAINE 5% TOPICAL PATCH TP SCH (10:55)
[2017-09-19] MEDS: POLYETHYLENE GLYCOL 3350 119 GM BTL PO SCH (10:56)
--- NOTE | 2017-09-19 12:30 | PN ---
Progress Note (short form) - Note Progress Note: NAD on NC O2. Still with some PICKERING. Some congested cough persists, but improving. No acute events overnight. Intake & Output 09/16/17 09/17/17 09/18/17 09/19/17 23:59 23:59 23:59 23:59 Intake Total 1150 450 800 Balance 1150 450 800 Last Vital Signs Temp Pulse Resp BP Pulse Ox 98.3 F 113 H 22 125/93 98 09/19/17 05:57 09/19/17 05:57 09/19/17 05:57 09/19/17 05:57 09/18/17 21:00 Active Medications Acetaminophen (Tylenol -) 1,000 mg PO Q8H PRN PRN Reason: PAIN Albuterol Sulfate (Ventolin 0.083% Nebulizer Soln -) 1 amp NEB Q4H PRN PRN Reason: SHORT OF BREATH/WHEEZING Last Admin: 09/19/17 11:32 Dose: 1 amp Benzocaine (Americaine Ointment -) 1 applic [place] PRN PRN PRN Reason: PAIN Last Admin: 09/19/17 10:53 Dose: 1 applic Budesonide/Formoterol Fumarate (Symbicort 160/4.5mcg -) 1 puff IH BID [facility] Last Admin: 09/19/17 10:55 Dose: 1 puff Cholecalciferol (Vitamin D3 -) 2,000 unit PO DAILY [facility] Last Admin: 09/19/17 10:52 Dose: 2,000 unit Furosemide (Lasix -) 40 mg PO BID@0600,1400 [facility] Last Admin: 09/19/17 06:21 Dose: 40 mg Furosemide (Lasix Injection -) 20 mg IVPUSH ONCE PRN PRN Reason: SHORTNESS OF BREATH Last Admin: 09/05/17 22:23 Dose: 20 mg Insulin Aspart (Novolog Vial Sliding Scale -) 1 vial SQ ACHS [facility] PRN Reason: Protocol Last Admin: 09/19/17 11:54 Dose: Not Given Lidocaine (Lidoderm Patch -) 2 patch TP DAILY [facility] Last Admin: 09/19/17 10:55 Dose: 2 patch Meclizine HCl (Antivert -) 12.5 mg PO BID@0600,1800 [facility] Last Admin: 09/19/17 06:21 Dose: 12.5 mg Miscellaneous (Lidoderm Patch Removal) 1 each MC DAILY@2200 [facility] Last Admin: 09/18/17 22:24 Dose: 1 each Nifedipine (Procardia Xl -) 30 mg PO DAILY [facility] Last Admin: 09/19/17 10:54 Dose: 30 mg Cyclosporine [ Restasis] 0.05% Eye Drops 1 each OU BID [facility] Last Admin: 09/19/17 10:54 Dose: 1 each Nystatin (Nystop Powder -) 1 applic TP BID [facility] Last Admin: 09/19/17 10:54 Dose: 1 applic Nystatin (Nystatin Oral Suspension -) 500,000 units PO TID [facility] Last Admin: 09/19/17 06:22 Dose: 500,000 units Pantoprazole Sodium (Protonix -) 40 mg PO DAILY [facility] Last Admin: 09/19/17 10:54 Dose: 40 mg Polyethylene Glycol (Miralax (For Daily Use) -) 17 gm PO DAILY [facility] Last Admin: 09/19/17 10:56 Dose: 17 grams Prednisone (Deltasone -) 40 mg PO DAILY [facility] Last Admin: 09/19/17 10:53 Dose: 40 mg Rosuvastatin Calcium (Crestor -) 10 mg PO HS [facility] Last Admin: 09/18/17 22:24 Dose: 10 mg Senna (Senna -) 1 tab PO BID [facility] Last Admin: 09/19/17 10:52 Dose: 1 tab Sodium Chloride ([place] Nasal [place] -) 2 spray NS BID [facility] Last Admin: 09/19/17 10:55 Dose: Not Given Valsartan (Diovan -) 160 mg PO DAILY [facility] Last Admin: 09/19/17 10:54 Dose: 160 mg Constitutional: Yes: Obese, Mildly tachypneic on NC O2 Eyes: Yes: WNL HENT: Yes: WNL Neck: Yes: WNL Cardiovascular: Yes: Regular Rate and Rhythm, S1, S2 Respiratory: Yes: Bilateral rhonchi, No wheezes appreciated Gastrointestinal: Yes: Normal Bowel Sounds, Soft, obese Extremities: Yes: WNL Edema: Yes Labs: Laboratory Results - last 24 hr 09/18/17 09/18/17 09/19/17 17:25 22:27 06:25 WBC RBC Hgb Hct MCV MCH MCHC RDW Plt Count MPV Neutrophils % Lymphocytes % Monocytes % Eosinophils % Basophils % PT with INR INR Sodium Potassium Chloride BUN Creatinine Creat Clearance w eGFR POC Glucometer 286 270 131 Random Glucose Calcium Ferritin Total Bilirubin AST ALT Alkaline Phosphatase LD Total Total Protein Albumin Direct Antiglob Test 09/19/17 09/19/17 09/19/17 07:00 07:00 07:00 WBC RBC Hgb Hct MCV MCH MCHC RDW Plt Count MPV Neutrophils % Lymphocytes % Monocytes % Eosinophils % Basophils % PT with INR 24.00 H INR 2.12 H Sodium Potassium Chloride BUN Creatinine Creat Clearance w eGFR POC Glucometer Random Glucose Calcium Ferritin Total Bilirubin AST ALT Alkaline Phosphatase LD Total 432 H Total Protein Albumin Direct Antiglob Test Negative 09/19/17 09/19/17 09/19/17 07:00 07:00 11:51 WBC 7.7 RBC 3.38 L Hgb 8.1 L Hct 27.7 L MCV 81.9 MCH 24.1 L MCHC 29.4 L RDW 15.9 H Plt Count 124 L MPV 8.4 Neutrophils % 82.3 Lymphocytes % 11.7 D Monocytes % 4.3 Eosinophils % 1.3 D Basophils % 0.4 PT with INR INR Sodium 144 Potassium 4.0 Chloride 95 L BUN 29 H Creatinine 1.3 H Creat Clearance w eGFR 40.61 POC Glucometer 137 Random Glucose 144 H D Calcium 8.1 L Ferritin 895.077 H Total Bilirubin 0.7 D AST 20 ALT 39 Alkaline Phosphatase 61 LD Total Total Protein 5.2 L Albumin 2.9 L Direct Antiglob Test Problem List - Problems (1) Coronary artery disease Code(s): I25.10 - ATHSCL HEART DISEASE OF [place] CORONARY ARTERY W/O ANG PCTRS (2) COPD exacerbation Code(s): J44.1 - CHRONIC OBSTRUCTIVE PULMONARY DISEASE W (ACUTE) EXACERBATION (3) CHF (congestive heart failure) Code(s): I50.9 - HEART FAILURE, UNSPECIFIED (4) History of pulmonary embolism Code(s): Z86.711 - PERSONAL HISTORY OF PULMONARY EMBOLISM (5) Pulmonary hypertension Code(s): I27.2 - OTHER SECONDARY PULMONARY HYPERTENSION * DO NOT USE * (6) SOB (shortness of breath) Code(s): R06.02 - SHORTNESS OF BREATH (7) Chronic diastolic (congestive) heart failure Code(s): I50.32 - CHRONIC DIASTOLIC (CONGESTIVE) HEART FAILURE (8) Anemia Code(s): D64.9 - ANEMIA, UNSPECIFIED (9) Acute on chronic respiratory failure with hypoxia and hypercapnia Code(s): J96.21 - ACUTE AND CHRONIC RESPIRATORY FAILURE WITH HYPOXIA; J96.22 - ACUTE AND CHRONIC RESPIRATORY FAILURE WITH HYPERCAPNIA (10) Morbid obesity Code(s): E66.01 - MORBID (SEVERE) OBESITY DUE TO EXCESS CALORIES Assessment/Plan IMP ACUTE ON CHRONIC HYPOXEMIC/HYPERCAPNEIC RESPIRATORY FAILURE END STAGE COPD O2 DEPENDENT WITH ACUTE EXACERBATION URI DIASTOLIC HF PULMONARY HTN H/O RECURRENT PULMONARY EMBOLI HTN MORBID OBESITY ANEMIA S/P TRANSFUSION PLAN PREDNISONE SUPPLEMENTAL O2 NEEDED INHALED BRONCHODILATORS DIURETICS MONITOR H+H MAY BE WORTHWHILE TO REPEAT [facility] WORKUP AFTER D/C D/C PLANNING TO REHAB DR MANJARREZ
[2017-09-19 13:01] LABS: ANION GAP -2 (8-16); CO2 51 mmol/L (21-32)
--- NOTE | 2017-09-19 21:51 | PN ---
Progress Note, Physician History of Present Illness: No new changes. - Current Medication List Current Medications: Active Medications Acetaminophen (Tylenol -) 1,000 mg PO Q8H PRN PRN Reason: PAIN Albuterol Sulfate (Ventolin 0.083% Nebulizer Soln -) 1 amp NEB Q4H PRN PRN Reason: SHORT OF BREATH/WHEEZING Last Admin: 09/19/17 17:36 Dose: 1 amp Benzocaine (Americaine Ointment -) 1 applic [place] PRN PRN PRN Reason: PAIN Last Admin: 09/19/17 10:53 Dose: 1 applic Budesonide/Formoterol Fumarate (Symbicort 160/4.5mcg -) 1 puff IH BID [facility] Last Admin: 09/19/17 10:55 Dose: 1 puff Cholecalciferol (Vitamin D3 -) 2,000 unit PO DAILY [facility] Last Admin: 09/19/17 10:52 Dose: 2,000 unit Furosemide (Lasix -) 40 mg PO BID@0600,1400 [facility] Last Admin: 09/19/17 14:24 Dose: 40 mg Furosemide (Lasix Injection -) 20 mg IVPUSH ONCE PRN PRN Reason: SHORTNESS OF BREATH Last Admin: 09/05/17 22:23 Dose: 20 mg Insulin Aspart (Novolog Vial Sliding Scale -) 1 vial SQ ACHS SAIMA PRN Reason: Protocol Last Admin: 09/19/17 17:40 Dose: 8 units Lidocaine (Lidoderm Patch -) 2 patch TP DAILY [facility] Last Admin: 09/19/17 10:55 Dose: 2 patch Meclizine HCl (Antivert -) 12.5 mg PO BID@0600,1800 [facility] Last Admin: 09/19/17 17:40 Dose: 12.5 mg Miscellaneous (Lidoderm Patch Removal) 1 each MC DAILY@2200 [facility] Last Admin: 09/18/17 22:24 Dose: 1 each Nifedipine (Procardia Xl -) 30 mg PO DAILY [facility] Last Admin: 09/19/17 10:54 Dose: 30 mg Cyclosporine [ Restasis] 0.05% Eye Drops 1 each OU BID [facility] Last Admin: 09/19/17 10:54 Dose: 1 each Nystatin (Nystop Powder -) 1 applic TP BID [facility] Last Admin: 09/19/17 10:54 Dose: 1 applic Nystatin (Nystatin Oral Suspension -) 500,000 units PO TID [facility] Last Admin: 09/19/17 14:24 Dose: 500,000 units Pantoprazole Sodium (Protonix -) 40 mg PO DAILY [facility] Last Admin: 09/19/17 10:54 Dose: 40 mg Polyethylene Glycol (Miralax (For Daily Use) -) 17 gm PO DAILY [facility] Last Admin: 09/19/17 10:56 Dose: 17 grams Prednisone (Deltasone -) 40 mg PO DAILY [facility] Last Admin: 09/19/17 10:53 Dose: 40 mg Rosuvastatin Calcium (Crestor -) 10 mg PO HS [facility] Last Admin: 09/18/17 22:24 Dose: 10 mg Senna (Senna -) 1 tab PO BID [facility] Last Admin: 09/19/17 10:52 Dose: 1 tab Sodium Chloride ([place] Nasal [place] -) 2 spray NS BID [facility] Last Admin: 09/19/17 10:55 Dose: Not Given Valsartan (Diovan -) 160 mg PO DAILY [facility] Last Admin: 09/19/17 10:54 Dose: 160 mg - Objective Vital Signs: Vital Signs Temperature 98.7 F 09/19/17 18:00 Pulse Rate 110 H 09/19/17 18:00 Respiratory Rate 20 09/19/17 18:00 Blood Pressure 103/57 09/19/17 18:00 O2 Sat by Pulse Oximetry (%) 98 09/18/17 21:00 Constitutional: Yes: Well Nourished Neck: Yes: WNL, Supple Cardiovascular: Yes: WNL, Regular Rate and Rhythm Respiratory: Yes: Diminished Gastrointestinal: Yes: WNL, Normal Bowel Sounds, Soft, Abdomen, Obese Labs: CBC, BMP 09/19/17 07:00 09/19/17 07:00 INR, PTT INR 2.12 (0.82-1.09) H 09/19/17 07:00 Problem List - Problems (1) COPD exacerbation Assessment/Plan: PO prednisone Cont nebulizers/spiriva/symbicort Ventimask prn Code(s): J44.1 - CHRONIC OBSTRUCTIVE PULMONARY DISEASE W (ACUTE) EXACERBATION (2) Chronic diastolic (congestive) heart failure Assessment/Plan: Cont lasix Monitor electrolytes Code(s): I50.32 - CHRONIC DIASTOLIC (CONGESTIVE) HEART FAILURE (3) History of pulmonary embolism Assessment/Plan: Monitor PT/inr Code(s): Z86.711 - PERSONAL HISTORY OF PULMONARY EMBOLISM (4) Hypertension Assessment/Plan: BP stable Cont procardia/diovan Code(s): I10 - ESSENTIAL (PRIMARY) HYPERTENSION (5) Coronary artery disease Code(s): I25.10 - ATHSCL HEART DISEASE OF [place] CORONARY ARTERY W/O ANG PCTRS (6) HLD (hyperlipidemia) Code(s): E78.5 - HYPERLIPIDEMIA, UNSPECIFIED (7) Hemorrhoid Code(s): K64.9 - UNSPECIFIED HEMORRHOIDS (8) Conjunctival hemorrhage of right eye Code(s): H11.31 - CONJUNCTIVAL HEMORRHAGE, RIGHT EYE (9) Morbid obesity Code(s): E66.01 - MORBID (SEVERE) OBESITY DUE TO EXCESS CALORIES (10) DVT (deep venous thrombosis) Code(s): I82.409 - ACUTE EMBOLISM AND THOMBOS UNSP DEEP VN UNSP LOWER EXTREMITY
[2017-09-19] MEDS ORDERED: INSULIN (NOVOLOG) ASPART 100 UNITS/ML 10ML VIAL ONE (21:58)
[2017-09-19] MEDS: LIDOCAINE PATCH REMOVAL MC SCH (22:39)
[2017-09-19] MEDS: ROSUVASTATIN CA 10 MG TABLET (FP) PO SCH (22:39)
[2017-09-20] MEDS: MECLIZINE HCL 12.5 MG TABLET PO SCH ×2 (06:29→18:03)
[2017-09-20] MEDS: FUROSEMIDE 40 MG TABLET (FP) PO SCH ×2 (06:29→15:18)
[2017-09-20] MEDS: INSULIN SLIDING SCALE (NOVOLOG) 1 VIAL SQ SCH ×4 (06:31→23:11)
[2017-09-20] MEDS: NYSTATIN 500,000 UNITS/5 ML SUSPENSION PO SCH ×3 (06:31→23:08)
[2017-09-20 06:36] LABS: SERUM IRON 68 ug/dL (27-139); TOTAL IRON BINDING CAPACITY 207 ug/dL (250-450); UIBC 139 ug/dL (118-369)
[2017-09-20 08:06] LABS: HAPTOGLOBIN 256 mg/dL (34-200)
[2017-09-20 08:33] LABS: INR 1.67 (0.82-1.09); PROTHROMBIN TIME (PATIENT) 18.9 SEC (9.98-11.88)
--- NOTE | 2017-09-20 10:01 | PN ---
Progress Note, Physician Chief Complaint: says shes coughing more History of Present Illness: INR is 1.67 today - Current Medication List Current Medications: Active Medications Acetaminophen (Tylenol -) 1,000 mg PO Q8H PRN PRN Reason: PAIN Albuterol Sulfate (Ventolin 0.083% Nebulizer Soln -) 1 amp NEB Q4H PRN PRN Reason: SHORT OF BREATH/WHEEZING Last Admin: 09/19/17 17:36 Dose: 1 amp Benzocaine (Americaine Ointment -) 1 applic [place] PRN PRN PRN Reason: PAIN Last Admin: 09/19/17 10:53 Dose: 1 applic Budesonide/Formoterol Fumarate (Symbicort 160/4.5mcg -) 1 puff IH BID [facility] Last Admin: 09/19/17 22:38 Dose: 1 puff Cholecalciferol (Vitamin D3 -) 2,000 unit PO DAILY [facility] Last Admin: 09/19/17 10:52 Dose: 2,000 unit Furosemide (Lasix -) 40 mg PO BID@0600,1400 [facility] Last Admin: 09/20/17 06:29 Dose: 40 mg Furosemide (Lasix Injection -) 20 mg IVPUSH ONCE PRN PRN Reason: SHORTNESS OF BREATH Last Admin: 09/05/17 22:23 Dose: 20 mg Insulin Aspart (Novolog Vial Sliding Scale -) 1 vial SQ ACHS SAIMA PRN Reason: Protocol Last Admin: 09/20/17 06:31 Dose: 2 units Lidocaine (Lidoderm Patch -) 2 patch TP DAILY [facility] Last Admin: 09/19/17 10:55 Dose: 2 patch Meclizine HCl (Antivert -) 12.5 mg PO BID@0600,1800 [facility] Last Admin: 09/20/17 06:29 Dose: 12.5 mg Miscellaneous (Lidoderm Patch Removal) 1 each MC DAILY@2200 [facility] Last Admin: 09/19/17 22:39 Dose: 1 each Nifedipine (Procardia Xl -) 30 mg PO DAILY [facility] Last Admin: 09/19/17 10:54 Dose: 30 mg Cyclosporine [ Restasis] 0.05% Eye Drops 1 each OU BID [facility] Last Admin: 09/19/17 22:39 Dose: 1 each Nystatin (Nystop Powder -) 1 applic TP BID [facility] Last Admin: 09/19/17 22:38 Dose: 1 applic Nystatin (Nystatin Oral Suspension -) 500,000 units PO TID [facility] Last Admin: 09/20/17 06:31 Dose: 500,000 units Pantoprazole Sodium (Protonix -) 40 mg PO DAILY [facility] Last Admin: 09/19/17 10:54 Dose: 40 mg Polyethylene Glycol (Miralax (For Daily Use) -) 17 gm PO DAILY [facility] Last Admin: 09/19/17 10:56 Dose: 17 grams Prednisone (Deltasone -) 40 mg PO DAILY [facility] Last Admin: 09/19/17 10:53 Dose: 40 mg Rosuvastatin Calcium (Crestor -) 10 mg PO HS [facility] Last Admin: 09/19/17 22:39 Dose: 10 mg Senna (Senna -) 1 tab PO BID [facility] Last Admin: 09/19/17 22:38 Dose: 1 tab Sodium Chloride ([place] Nasal [place] -) 2 spray NS BID [facility] Last Admin: 09/19/17 22:38 Dose: 1 sprays Valsartan (Diovan -) 160 mg PO DAILY [facility] Last Admin: 09/19/17 10:54 Dose: 160 mg - Objective Vital Signs: Vital Signs Temperature 98.4 F 09/20/17 06:00 Pulse Rate 108 H 09/20/17 06:00 Respiratory Rate 18 09/20/17 06:00 Blood Pressure 120/47 09/20/17 06:00 O2 Sat by Pulse Oximetry (%) 99 09/19/17 22:00 Constitutional: Yes: No Distress Cardiovascular: Yes: Regular Rate and Rhythm Respiratory: Yes: Other (decreased breath sounds, no wheezing. ?rales right base ) Gastrointestinal: Yes: Soft, Abdomen, Obese Edema: No Neurological: Yes: Alert, Oriented ...Motor Strength: WNL Labs: CBC, BMP 09/19/17 07:00 09/19/17 07:00 INR, PTT INR 1.67 (0.82-1.09) H 09/20/17 07:00 Assessment/Plan Assessment/Plan SOB AECOPD Acute on chronic diastolic CHF, mild exacerbation History of PE on coumadin REC: 1. CHF: chronic diastolic CHF -Repeat CXR today, coughing more: ?congestion? Lung exam does not suggest CHF. -Mild CAD on recent cath. Will hold ASA in setting of recurrent anemia. -Recent echo in May with normal LV function -cont po Lasix with IV doses prn -cont other current meds -monitor Daily weights, lI/Os, electrolytes 2. AE COPD: -as per pulmonary -additionally chronic PHTN due to COPD/PE resulting in right sided CHF symptoms 3. History of PEs on coumadin: Holding Coumadin again in setting of drifting H/H: ?source? -Stool guiac negative earlier in admission -INR now below 2 4.Anemia: -recurrent drift in H/H -Stool guaiac negative earlier in admission -Holding ASA and Coumadin for now
[2017-09-20] MEDS ORDERED: PT OWN MED DRAWER 7, Y5N ONE (11:00)
[2017-09-20] MEDS: NIFEdipine E.R. 30 MG TABLET (FP) PO SCH (11:02)
[2017-09-20] MEDS: BUDESONIDE/FORMETEROL FUMARATE 160/4.5 mcg INHALER IH SCH ×2 (11:02→23:07)
[2017-09-20] MEDS: predniSONE 20 MG TABLET (UD) PO SCH (11:02)
[2017-09-20] MEDS: LIDOCAINE 5% TOPICAL PATCH TP SCH (11:02)
[2017-09-20] MEDS: PANTOPRAZOLE 40 MG TABLET (FP) PO SCH (11:03)
[2017-09-20] MEDS: VALSARTAN 160 MG TABLET (UD) PO SCH (11:03)
[2017-09-20] MEDS: SODIUM CHLORIDE NASAL SPRAY 44 ML BOTTLE NS SCH ×2 (11:04→23:12)
[2017-09-20] MEDS: SENNOSIDES 8.6MG TABLET (FP) PO SCH ×2 (11:04→23:08)
[2017-09-20] MEDS: CHOLECALCIFEROL (VITAMIN D3) 1,000 UNIT TABLET (FP) PO SCH (11:04)
[2017-09-20] MEDS: PHENYLEPH/MINERAL OIL/PETROLAT 28 GM OINTMENT RC SCH ×2 (11:06→23:32)
[2017-09-20] MEDS: NYSTATIN POWDER 100,000 UNITS/GM - 15 GM TOPICAL POWDER TP SCH ×2 (11:06→23:11)
[2017-09-20] MEDS: POLYETHYLENE GLYCOL 3350 119 GM BTL PO SCH (11:08)
[2017-09-20] MEDS: ALBUTEROL SO4 0.083% IH SOL 2.5 MG/3 ML VIAL.NEB. NEB PRN (11:12)
--- NOTE | 2017-09-20 12:06 | PN ---
Progress Note (short form) - Note Progress Note: NAD on NC O2. Says breathing feels a "hair" better. Still with some PICKERING. Some congested cough persists, but improving. No acute events overnight. CXR: no acute process Intake & Output 09/17/17 09/18/17 09/19/17 09/20/17 23:59 23:59 23:59 23:59 Intake Total 450 800 203 100 Balance 450 800 203 100 Last Vital Signs Temp Pulse Resp BP Pulse Ox 98.4 F 108 H 18 120/47 99 09/20/17 06:00 09/20/17 06:00 09/20/17 06:00 09/20/17 06:00 09/19/17 22:00 Active Medications Acetaminophen (Tylenol -) 1,000 mg PO Q8H PRN PRN Reason: PAIN Albuterol Sulfate (Ventolin 0.083% Nebulizer Soln -) 1 amp NEB Q4H PRN PRN Reason: SHORT OF BREATH/WHEEZING Last Admin: 09/20/17 11:12 Dose: 1 amp Benzocaine (Americaine Ointment -) [address] PRN PRN PRN Reason: PAIN Last Admin: 09/19/17 10:53 Dose: 1 applic Budesonide/Formoterol Fumarate (Symbicort 160/4.5mcg -) 1 puff IH BID [facility] Last Admin: 09/20/17 11:02 Dose: 1 puff Cholecalciferol (Vitamin D3 -) 2,000 unit PO DAILY [facility] Last Admin: 09/20/17 11:04 Dose: 2,000 unit Furosemide (Lasix -) 40 mg PO BID@0600,1400 [facility] Last Admin: 09/20/17 06:29 Dose: 40 mg Furosemide (Lasix Injection -) 20 mg IVPUSH ONCE PRN PRN Reason: SHORTNESS OF BREATH Last Admin: 09/05/17 22:23 Dose: 20 mg Insulin Aspart (Novolog Vial Sliding Scale -) 1 vial SQ ACHS SAIMA PRN Reason: Protocol Last Admin: 09/20/17 11:15 Dose: Not Given Lidocaine (Lidoderm Patch -) 2 patch TP DAILY [facility] Last Admin: 09/20/17 11:02 Dose: 2 patch Meclizine HCl (Antivert -) 12.5 mg PO BID@0600,1800 [facility] Last Admin: 09/20/17 06:29 Dose: 12.5 mg Miscellaneous (Lidoderm Patch Removal) 1 each MC DAILY@2200 [facility] Last Admin: 09/19/17 22:39 Dose: 1 each Nifedipine (Procardia Xl -) 30 mg PO DAILY [facility] Last Admin: 09/20/17 11:02 Dose: 30 mg Cyclosporine [ Restasis] 0.05% Eye Drops 1 each OU BID [facility] Last Admin: 09/20/17 11:07 Dose: 1 each Nystatin (Nystop Powder -) 1 applic TP BID [facility] Last Admin: 09/20/17 11:06 Dose: 1 applic Nystatin (Nystatin Oral Suspension -) 500,000 units PO TID [facility] Last Admin: 09/20/17 06:31 Dose: 500,000 units Pantoprazole Sodium (Protonix -) 40 mg PO DAILY [facility] Last Admin: 09/20/17 11:03 Dose: 40 mg Polyethylene Glycol (Miralax (For Daily Use) -) 17 gm PO DAILY [facility] Last Admin: 09/20/17 11:08 Dose: Not Given Prednisone (Deltasone -) 40 mg PO DAILY [facility] Last Admin: 09/20/17 11:02 Dose: 40 mg Rosuvastatin Calcium (Crestor -) 10 mg PO HS [facility] Last Admin: 09/19/17 22:39 Dose: 10 mg Senna (Senna -) 1 tab PO BID [facility] Last Admin: 09/20/17 11:04 Dose: 1 tab Sodium Chloride ([place] Nasal [place] -) 2 spray NS BID [facility] Last Admin: 09/20/17 11:04 Dose: Not Given Valsartan (Diovan -) 160 mg PO DAILY [facility] Last Admin: 09/20/17 11:03 Dose: 160 mg Constitutional: Yes: Obese, Mildly tachypneic on NC O2 Eyes: Yes: WNL HENT: Yes: WNL Neck: Yes: WNL Cardiovascular: Yes: Regular Rate and Rhythm, S1, S2 Respiratory: Yes: Bilateral rhonchi, No wheezes appreciated Gastrointestinal: Yes: Normal Bowel Sounds, Soft, obese Extremities: Yes: WNL Edema: Yes Labs: Laboratory Results - last 24 hr 09/19/17 09/19/17 09/19/17 07:00 07:00 11:51 Haptoglobin 256 H PT with INR INR Carbon Dioxide 51 H Anion Gap -2 L POC Glucometer 137 Iron 68 TIBC 207 L Iron Saturation 33 09/19/17 09/19/17 09/20/17 17:18 22:40 05:27 Haptoglobin PT with INR INR Carbon Dioxide Anion Gap POC Glucometer 337 246 154 Iron TIBC Iron Saturation 09/20/17 09/20/17 07:00 11:11 Haptoglobin PT with INR 18.90 H INR 1.67 H Carbon Dioxide Anion Gap POC Glucometer 130 Iron TIBC Iron Saturation Problem List - Problems (1) Coronary artery disease Code(s): I25.10 - ATHSCL HEART DISEASE OF [place] CORONARY ARTERY W/O ANG PCTRS (2) COPD exacerbation Code(s): J44.1 - CHRONIC OBSTRUCTIVE PULMONARY DISEASE W (ACUTE) EXACERBATION (3) CHF (congestive heart failure) Code(s): I50.9 - HEART FAILURE, UNSPECIFIED (4) History of pulmonary embolism Code(s): Z86.711 - PERSONAL HISTORY OF PULMONARY EMBOLISM (5) Pulmonary hypertension Code(s): I27.2 - OTHER SECONDARY PULMONARY HYPERTENSION * DO NOT USE * (6) SOB (shortness of breath) Code(s): R06.02 - SHORTNESS OF BREATH (7) Chronic diastolic (congestive) heart failure Code(s): I50.32 - CHRONIC DIASTOLIC (CONGESTIVE) HEART FAILURE (8) Anemia Code(s): D64.9 - ANEMIA, UNSPECIFIED (9) Acute on chronic respiratory failure with hypoxia and hypercapnia Code(s): J96.21 - ACUTE AND CHRONIC RESPIRATORY FAILURE WITH HYPOXIA; J96.22 - ACUTE AND CHRONIC RESPIRATORY FAILURE WITH HYPERCAPNIA (10) Morbid obesity Code(s): E66.01 - MORBID (SEVERE) OBESITY DUE TO EXCESS CALORIES Assessment/Plan IMP ACUTE ON CHRONIC HYPOXEMIC/HYPERCAPNEIC RESPIRATORY FAILURE END STAGE COPD O2 DEPENDENT WITH ACUTE EXACERBATION URI DIASTOLIC HF PULMONARY HTN H/O RECURRENT PULMONARY EMBOLI HTN MORBID OBESITY ANEMIA S/P TRANSFUSION PLAN PREDNISONE SUPPLEMENTAL O2 NEEDED INHALED BRONCHODILATORS DIURETICS MONITOR H+H MAY BE WORTHWHILE TO REPEAT [facility] WORKUP AFTER D/C D/C PLANNING TO REHAB DR MANJARREZ
[2017-09-20] MEDS: WARFARIN NA 3 MG TABLET PO SCH (18:02)
--- NOTE | 2017-09-20 23:04 | PN ---
Progress Note, Physician History of Present Illness: No new changes. - Current Medication List Current Medications: Active Medications Acetaminophen (Tylenol -) 1,000 mg PO Q8H PRN PRN Reason: PAIN Albuterol Sulfate (Ventolin 0.083% Nebulizer Soln -) 1 amp NEB Q4H PRN PRN Reason: SHORT OF BREATH/WHEEZING Last Admin: 09/20/17 11:12 Dose: 1 amp Benzocaine (Americaine Ointment -) 1 applic [place] PRN PRN PRN Reason: PAIN Last Admin: 09/19/17 10:53 Dose: 1 applic Budesonide/Formoterol Fumarate (Symbicort 160/4.5mcg -) 1 puff IH BID [facility] Last Admin: 09/20/17 11:02 Dose: 1 puff Cholecalciferol (Vitamin D3 -) 2,000 unit PO DAILY [facility] Last Admin: 09/20/17 11:04 Dose: 2,000 unit Furosemide (Lasix -) 40 mg PO BID@0600,1400 [facility] Last Admin: 09/20/17 15:18 Dose: 40 mg Furosemide (Lasix Injection -) 20 mg IVPUSH ONCE PRN PRN Reason: SHORTNESS OF BREATH Last Admin: 09/05/17 22:23 Dose: 20 mg Insulin Aspart (Novolog Vial Sliding Scale -) 1 vial SQ ACHS SAIMA PRN Reason: Protocol Last Admin: 09/20/17 18:03 Dose: 8 units Lidocaine (Lidoderm Patch -) 2 patch TP DAILY [facility] Last Admin: 09/20/17 11:02 Dose: 2 patch Meclizine HCl (Antivert -) 12.5 mg PO BID@0600,1800 [facility] Last Admin: 09/20/17 18:03 Dose: 12.5 mg Miscellaneous (Lidoderm Patch Removal) 1 each MC DAILY@2200 [facility] Last Admin: 09/19/17 22:39 Dose: 1 each Nifedipine (Procardia Xl -) 30 mg PO DAILY [facility] Last Admin: 09/20/17 11:02 Dose: 30 mg Cyclosporine [ Restasis] 0.05% Eye Drops 1 each OU BID [facility] Last Admin: 09/20/17 11:07 Dose: 1 each Nystatin (Nystop Powder -) 1 applic TP BID [facility] Last Admin: 09/20/17 11:06 Dose: 1 applic Nystatin (Nystatin Oral Suspension -) 500,000 units PO TID [facility] Last Admin: 09/20/17 15:18 Dose: 500,000 units Pantoprazole Sodium (Protonix -) 40 mg PO DAILY [facility] Last Admin: 09/20/17 11:03 Dose: 40 mg Polyethylene Glycol (Miralax (For Daily Use) -) 17 gm PO DAILY [facility] Last Admin: 09/20/17 11:08 Dose: Not Given Prednisone (Deltasone -) 40 mg PO DAILY [facility] Last Admin: 09/20/17 11:02 Dose: 40 mg Rosuvastatin Calcium (Crestor -) 10 mg PO HS [facility] Last Admin: 09/19/17 22:39 Dose: 10 mg Senna (Senna -) 1 tab PO BID [facility] Last Admin: 09/20/17 11:04 Dose: 1 tab Sodium Chloride ([place] Nasal [place] -) 2 spray NS BID [facility] Last Admin: 09/20/17 11:04 Dose: Not Given Valsartan (Diovan -) 160 mg PO DAILY [facility] Last Admin: 09/20/17 11:03 Dose: 160 mg Warfarin Sodium (Coumadin -) 3 mg PO DAILY@1800 [facility] Last Admin: 09/20/17 18:02 Dose: 3 mg - Objective Vital Signs: Vital Signs Temperature 98.7 F 09/20/17 18:00 Pulse Rate 103 H 09/20/17 18:00 Respiratory Rate 20 09/20/17 18:00 Blood Pressure 82/49 09/20/17 18:00 O2 Sat by Pulse Oximetry (%) 99 09/19/17 22:00 Constitutional: Yes: Well Nourished HENT: Yes: WNL Neck: Yes: WNL, Supple Cardiovascular: Yes: WNL, Regular Rate and Rhythm Respiratory: Yes: Diminished Gastrointestinal: Yes: WNL, Normal Bowel Sounds, Soft, Abdomen, Obese Labs: CBC, BMP 09/19/17 07:00 09/19/17 07:00 INR, PTT INR 1.67 (0.82-1.09) H 09/20/17 07:00 Problem List - Problems (1) COPD exacerbation Assessment/Plan: PO prednisone Cont nebulizers/spiriva/symbicort Ventimask prn DC planning to [facility] in am Code(s): J44.1 - CHRONIC OBSTRUCTIVE PULMONARY DISEASE W (ACUTE) EXACERBATION (2) Chronic diastolic (congestive) heart failure Assessment/Plan: Cont lasix Monitor electrolytes Code(s): I50.32 - CHRONIC DIASTOLIC (CONGESTIVE) HEART FAILURE (3) History of pulmonary embolism Assessment/Plan: Monitor PT/inr Restart coumadin Code(s): Z86.711 - PERSONAL HISTORY OF PULMONARY EMBOLISM (4) Hypertension Assessment/Plan: BP stable Cont procardia/diovan Code(s): I10 - ESSENTIAL (PRIMARY) HYPERTENSION (5) Coronary artery disease Code(s): I25.10 - ATHSCL HEART DISEASE OF [place] CORONARY ARTERY W/O ANG PCTRS (6) HLD (hyperlipidemia) Assessment/Plan: Cont crestor Code(s): E78.5 - HYPERLIPIDEMIA, UNSPECIFIED (7) Hemorrhoid Assessment/Plan: Cont anusol Code(s): K64.9 - UNSPECIFIED HEMORRHOIDS (8) Conjunctival hemorrhage of right eye Assessment/Plan: Cont to monitor Improved Code(s): H11.31 - CONJUNCTIVAL HEMORRHAGE, RIGHT EYE (9) Morbid obesity Code(s): E66.01 - MORBID (SEVERE) OBESITY DUE TO EXCESS CALORIES (10) DVT (deep venous thrombosis) Code(s): I82.409 - ACUTE EMBOLISM AND THOMBOS UNSP DEEP VN UNSP LOWER EXTREMITY
[2017-09-20] MEDS: ROSUVASTATIN CA 10 MG TABLET (FP) PO SCH (23:08)
[2017-09-20] MEDS: LIDOCAINE PATCH REMOVAL MC SCH (23:11)
[2017-09-21] MEDS: FUROSEMIDE 40 MG TABLET (FP) PO SCH ×2 (07:00→14:54)
[2017-09-21] MEDS: INSULIN SLIDING SCALE (NOVOLOG) 1 VIAL SQ SCH ×3 (07:00→16:45)
[2017-09-21] MEDS: NYSTATIN 500,000 UNITS/5 ML SUSPENSION PO SCH ×2 (07:00→14:54)
[2017-09-21] MEDS: MECLIZINE HCL 12.5 MG TABLET PO SCH ×2 (07:00→17:31)
[2017-09-21 08:16] LABS: BASOPHIL 0.4 % (0-2.0); EOSINOPHIL 0.6 % (0-4.5); MCH 24.7 pg (25.7-33.7); MCHC 29.7 g/dl (32.0-36.0); MEAN PLT VOLUME 9.1 fl (7.5-11.1); NEUTROPHILS 84.8 % (42.8-82.8); PLATELET COUNT 161 K/MM3 (134-434); RDW 16.8 % (11.6-15.6); WHITE BLOOD COUNT 8.8 K/mm3 (4.0-10.0)
[2017-09-21 08:24] LABS: INR 1.53 (0.82-1.09); PROTHROMBIN TIME (PATIENT) 17.3 SEC (9.98-11.88)
[2017-09-21] MEDS: ALBUTEROL SO4 0.083% IH SOL 2.5 MG/3 ML VIAL.NEB. NEB PRN (08:44)
[2017-09-21] MEDS: PHENYLEPH/MINERAL OIL/PETROLAT 28 GM OINTMENT RC SCH (09:21)
[2017-09-21] MEDS: BUDESONIDE/FORMETEROL FUMARATE 160/4.5 mcg INHALER IH SCH (09:24)
[2017-09-21] MEDS: VALSARTAN 160 MG TABLET (UD) PO SCH (09:25)
[2017-09-21] MEDS: predniSONE 20 MG TABLET (UD) PO SCH (09:25)
[2017-09-21] MEDS: LIDOCAINE 5% TOPICAL PATCH TP SCH (09:26)
[2017-09-21] MEDS: NYSTATIN POWDER 100,000 UNITS/GM - 15 GM TOPICAL POWDER TP SCH (09:27)
[2017-09-21] MEDS: SODIUM CHLORIDE NASAL SPRAY 44 ML BOTTLE NS SCH (09:27)
[2017-09-21] MEDS: POLYETHYLENE GLYCOL 3350 119 GM BTL PO SCH (09:27)
[2017-09-21] MEDS: PANTOPRAZOLE 40 MG TABLET (FP) PO SCH (09:27)
[2017-09-21] MEDS: NIFEdipine E.R. 30 MG TABLET (FP) PO SCH (09:27)
[2017-09-21] MEDS: SENNOSIDES 8.6MG TABLET (FP) PO SCH (09:28)
[2017-09-21] MEDS: CHOLECALCIFEROL (VITAMIN D3) 1,000 UNIT TABLET (FP) PO SCH (09:29)
--- NOTE | 2017-09-21 10:10 | PN ---
Progress Note, Physician History of Present Illness: Seen and examined today in nad. states she is feeling the same. no improvement. she wants to go to rehab as soon as possible. - Current Medication List Current Medications: Active Medications Acetaminophen (Tylenol -) 1,000 mg PO Q8H PRN PRN Reason: PAIN Albuterol Sulfate (Ventolin 0.083% Nebulizer Soln -) 1 amp NEB Q4H PRN PRN Reason: SHORT OF BREATH/WHEEZING Last Admin: 09/21/17 08:44 Dose: 1 amp Benzocaine (Americaine Ointment -) 1 applic [place] PRN PRN PRN Reason: PAIN Last Admin: 09/19/17 10:53 Dose: 1 applic Budesonide/Formoterol Fumarate (Symbicort 160/4.5mcg -) 1 puff IH BID [facility] Last Admin: 09/21/17 09:24 Dose: 1 puff Cholecalciferol (Vitamin D3 -) 2,000 unit PO DAILY [facility] Last Admin: 09/21/17 09:29 Dose: 2,000 unit Furosemide (Lasix -) 40 mg PO BID@0600,1400 [facility] Last Admin: 09/21/17 07:00 Dose: 40 mg Furosemide (Lasix Injection -) 20 mg IVPUSH ONCE PRN PRN Reason: SHORTNESS OF BREATH Last Admin: 09/05/17 22:23 Dose: 20 mg Insulin Aspart (Novolog Vial Sliding Scale -) 1 vial SQ ACHS SAIMA PRN Reason: Protocol Last Admin: 09/21/17 07:00 Dose: Not Given Lidocaine (Lidoderm Patch -) 2 patch TP DAILY [facility] Last Admin: 09/21/17 09:26 Dose: 2 patch Meclizine HCl (Antivert -) 12.5 mg PO BID@0600,1800 [facility] Last Admin: 09/21/17 07:00 Dose: 12.5 mg Miscellaneous (Lidoderm Patch Removal) 1 each MC DAILY@2200 [facility] Last Admin: 09/20/17 23:11 Dose: 1 each Nifedipine (Procardia Xl -) 30 mg PO DAILY [facility] Last Admin: 09/21/17 09:27 Dose: 30 mg Cyclosporine [ Restasis] 0.05% Eye Drops 1 each OU BID [facility] Last Admin: 09/21/17 09:24 Dose: 1 each Nystatin (Nystop Powder -) 1 applic TP BID [facility] Last Admin: 09/21/17 09:27 Dose: 1 applic Nystatin (Nystatin Oral Suspension -) 500,000 units PO TID [facility] Last Admin: 09/21/17 07:00 Dose: 500,000 units Pantoprazole Sodium (Protonix -) 40 mg PO DAILY [facility] Last Admin: 09/21/17 09:27 Dose: 40 mg Polyethylene Glycol (Miralax (For Daily Use) -) 17 gm PO DAILY [facility] Last Admin: 09/21/17 09:27 Dose: Not Given Prednisone (Deltasone -) 40 mg PO DAILY [facility] Last Admin: 09/21/17 09:25 Dose: 40 mg Rosuvastatin Calcium (Crestor -) 10 mg PO HS [facility] Last Admin: 09/20/17 23:08 Dose: 10 mg Senna (Senna -) 1 tab PO BID [facility] Last Admin: 09/21/17 09:28 Dose: 1 tab Sodium Chloride ([place] Nasal [place] -) 2 spray NS BID [facility] Last Admin: 09/21/17 09:27 Dose: Not Given Valsartan (Diovan -) 160 mg PO DAILY [facility] Last Admin: 09/21/17 09:25 Dose: 160 mg Warfarin Sodium (Coumadin -) 3 mg PO DAILY@1800 [facility] Last Admin: 09/20/17 18:02 Dose: 3 mg - Objective Vital Signs: Vital Signs Temperature 97.8 F 09/21/17 06:00 Pulse Rate 106 H 09/21/17 08:44 Respiratory Rate 20 09/21/17 06:00 Blood Pressure 133/73 09/21/17 06:00 O2 Sat by Pulse Oximetry (%) 96 09/21/17 08:44 Constitutional: Yes: No Distress, Calm Eyes: Yes: Conjunctiva Clear, EOM Intact, PERRL HENT: Yes: Atraumatic, Normocephalic Neck: Yes: Supple, Trachea Midline Cardiovascular: Yes: Regular Rate and Rhythm, S1, S2. No: Bradycardia, Tachycardia, Pulse Irregular, Bruit, JVD, Gallop, Murmur, Rub, S3, S4, Varicosities Respiratory: Yes: Regular, Diminished, On Nasal O2, Rhonchi. No: Rales, SOB, Wheezes Gastrointestinal: Yes: Normal Bowel Sounds, Soft. No: Distention Musculoskeletal: Yes: Muscle Weakness Extremities: Yes: WNL Edema: No Peripheral Pulses WNL: Yes Peripheral Pulses: Left Doralis Pedis: 2+, Right Dorsalis Pedis: 2+ Neurological: Yes: Alert, Oriented Psychiatric: Yes: Alert, Oriented Labs: CBC, BMP 09/21/17 06:30 09/19/17 07:00 INR, PTT INR 1.53 (0.82-1.09) H 09/21/17 06:30 - ....Imaging Chest X-ray: Report Reviewed, Image Reviewed EKG: Report Reviewed, Image Reviewed Other: Report Reviewed, Image Reviewed Assessment/Plan Assessment/Plan SOB AECOPD Acute on chronic diastolic CHF, mild exacerbation History of PE on coumadin REC: 1. CHF: chronic diastolic CHF -Overall has remained euvolemic -cont po Lasix -Ok for discharge to rehab from a cardiac standpoint -Mild CAD on recent cath. Will hold ASA in setting of recurrent anemia. -Recent echo in February showed normal LV function -cont other current meds 2. AE COPD: -as per pulmonary -additionally chronic PHTN due to COPD/PE resulting in right sided CHF symptoms 3. History of PEs on coumadin: -coumadin had been held for anemia -pt back on coumadin, INR subtherapeutic -Stool guiac negative earlier in admission -can discuss with pulmonary but likely can follow INR and H/H at rehab 4.Anemia: -monitor H/H -Stool guaiac negative earlier in admission -Holding ASA
--- NOTE | 2017-09-21 11:26 | PATH ---
Surgical Pathology Report Patient Name: USMAN VALLECILLO [facility]. Rec. #: [id number] /Age/Gender: 1950 (Age: 67) / F Account: [id number] Location: [address] [place] [address] Taken: 09/18/2017 Received: 09/18/2017 Reported: 09/21/2017 Physicians: Jes Aguila M.D. Specimen(s) Received PERIPHERAL BLOOD Clinical History Anemia requiring periodic packed red blood cells. Final Diagnosis PERIPHERAL BLOOD: FLOW CYTOMETRY performed and interpreted at [facility], [place], [place] ([id number]) shows the following: INTERPRETATION: In the sample analyzed, there is no evidence of B or T-cell proliferative disorders or increased blasts. Comment: FISH tests are pending, and a report will follow. Electronically Signed Scotty Coreas M.D. Addendum Reported: 09/21/2017 Addendum Diagnosis Hematologic FISH Report performed and interpreted at [facility] in [place], [place] ([id number]) shows the following. INTERPRETATION: No evidence of deletion 5q or monosomy 5 is present. No evidence of deletion 7q or monosomy 7 is present. No evidence of trisomy 8 (+8) is present. No evidence of deletion 13q14 is present. No evidence of a rearrangement of 11q23. No evidence of a deletion of the p53 (17p13) locus. No evidence of deletion 20q12 is present. Comments: The study is negative for many of the most common recurrent genetic abnormalities in Myelodysplastic Syndrome. Scotty Coreas M.D. Gross Description Received labelled with the patient's name are 2 green top tubes of peripheral blood which are forwarded to [facility] for ancillary testing.
--- NOTE | 2017-09-21 13:11 | PN ---
Progress Note, Physician History of Present Illness: pulmonary alert,still dyspneic with exertion,-cp - Current Medication List Current Medications: Active Medications Acetaminophen (Tylenol -) 1,000 mg PO Q8H PRN PRN Reason: PAIN Benzocaine (Americaine Ointment -) 1 applic HI PRN PRN PRN Reason: PAIN Last Admin: 09/19/17 10:53 Dose: 1 applic Budesonide/Formoterol Fumarate (Symbicort 160/4.5mcg -) 1 puff IH BID [facility] Last Admin: 09/21/17 09:24 Dose: 1 puff Cholecalciferol (Vitamin D3 -) 2,000 unit PO DAILY [facility] Last Admin: 09/21/17 09:29 Dose: 2,000 unit Furosemide (Lasix -) 40 mg PO BID@0600,1400 [facility] Last Admin: 09/21/17 07:00 Dose: 40 mg Furosemide (Lasix Injection -) 20 mg IVPUSH ONCE PRN PRN Reason: SHORTNESS OF BREATH Last Admin: 09/05/17 22:23 Dose: 20 mg Insulin Aspart (Novolog Vial Sliding Scale -) 1 vial SQ ACHS [facility] PRN Reason: Protocol Last Admin: 09/21/17 11:47 Dose: 2 units Lidocaine (Lidoderm Patch -) 2 patch TP DAILY [facility] Last Admin: 09/21/17 09:26 Dose: 2 patch Meclizine HCl (Antivert -) 12.5 mg PO BID@0600,1800 [facility] Last Admin: 09/21/17 07:00 Dose: 12.5 mg Miscellaneous (Lidoderm Patch Removal) 1 each MC DAILY@2200 [facility] Last Admin: 09/20/17 23:11 Dose: 1 each Nifedipine (Procardia Xl -) 30 mg PO DAILY [facility] Last Admin: 09/21/17 09:27 Dose: 30 mg Cyclosporine [ Restasis] 0.05% Eye Drops 1 each OU BID [facility] Last Admin: 09/21/17 09:24 Dose: 1 each Nystatin (Nystop Powder -) 1 applic TP BID [facility] Last Admin: 09/21/17 09:27 Dose: 1 applic Nystatin (Nystatin Oral Suspension -) 500,000 units PO TID [facility] Last Admin: 09/21/17 07:00 Dose: 500,000 units Pantoprazole Sodium (Protonix -) 40 mg PO DAILY [facility] Last Admin: 09/21/17 09:27 Dose: 40 mg Polyethylene Glycol (Miralax (For Daily Use) -) 17 gm PO DAILY [facility] Last Admin: 09/21/17 09:27 Dose: Not Given Prednisone (Deltasone -) 40 mg PO DAILY [facility] Last Admin: 09/21/17 09:25 Dose: 40 mg Rosuvastatin Calcium (Crestor -) 10 mg PO HS [facility] Last Admin: 09/20/17 23:08 Dose: 10 mg Senna (Senna -) 1 tab PO BID [facility] Last Admin: 09/21/17 09:28 Dose: 1 tab Sodium Chloride ([place] Nasal [place] -) 2 spray NS BID [facility] Last Admin: 09/21/17 09:27 Dose: Not Given Valsartan (Diovan -) 160 mg PO DAILY [facility] Last Admin: 09/21/17 09:25 Dose: 160 mg Warfarin Sodium (Coumadin -) 3 mg PO DAILY@1800 [facility] Last Admin: 09/20/17 18:02 Dose: 3 mg - Objective Vital Signs: Vital Signs Temperature 99.3 F 09/21/17 10:00 Pulse Rate 118 H 09/21/17 10:00 Respiratory Rate 20 09/21/17 10:00 Blood Pressure 119/90 09/21/17 10:00 O2 Sat by Pulse Oximetry (%) 96 09/21/17 08:44 Constitutional: Yes: Calm, Obese Eyes: Yes: Occular Prosthesis HENT: Yes: WNL Neck: Yes: WNL Cardiovascular: Yes: Regular Rate and Rhythm, S1, S2 Respiratory: Yes: Diminished Gastrointestinal: Yes: Normal Bowel Sounds, Soft Extremities: Yes: WNL Edema: No Labs: CBC, BMP 09/21/17 06:30 INR, PTT INR 1.53 (0.82-1.09) H 09/21/17 06:30 Problem List - Problems (1) Coronary artery disease Code(s): I25.10 - ATHSCL HEART DISEASE OF [place] CORONARY ARTERY W/O ANG PCTRS (2) COPD exacerbation Code(s): J44.1 - CHRONIC OBSTRUCTIVE PULMONARY DISEASE W (ACUTE) EXACERBATION (3) CHF (congestive heart failure) Code(s): I50.9 - HEART FAILURE, UNSPECIFIED (4) History of pulmonary embolism Code(s): Z86.711 - PERSONAL HISTORY OF PULMONARY EMBOLISM (5) Pulmonary hypertension Code(s): I27.2 - OTHER SECONDARY PULMONARY HYPERTENSION * DO NOT USE * (6) SOB (shortness of breath) Code(s): R06.02 - SHORTNESS OF BREATH (7) Chronic diastolic (congestive) heart failure Code(s): I50.32 - CHRONIC DIASTOLIC (CONGESTIVE) HEART FAILURE (8) Anemia Code(s): D64.9 - ANEMIA, UNSPECIFIED (9) Acute on chronic respiratory failure with hypoxia and hypercapnia Code(s): J96.21 - ACUTE AND CHRONIC RESPIRATORY FAILURE WITH HYPOXIA; J96.22 - ACUTE AND CHRONIC RESPIRATORY FAILURE WITH HYPERCAPNIA (10) Morbid obesity Code(s): E66.01 - MORBID (SEVERE) OBESITY DUE TO EXCESS CALORIES Assessment/Plan IMP ACUTE ON CHRONIC HYPOXEMIC/HYPERCAPNEIC RESPIRATORY FAILURE END STAGE COPD O2 DEPENDENT WITH ACUTE EXACERBATION URI DIASTOLIC HF PULMONARY HTN H/O RECURRENT PULMONARY EMBOLI HTN MORBID OBESITY ANEMIA S/P TRANSFUSION PLAN PREDNISONE SUPPLEMENTAL O2 VIA VM INHALED BRONCHODILATORS NIPPV NEEDED MONITOR H+H AC DR FOX Problem List - Problems (1) SOB (shortness of breath) Code(s): R06.02 - SHORTNESS OF BREATH (2) Acute on chronic respiratory failure with hypoxia and hypercapnia Code(s): J96.21 - ACUTE AND CHRONIC RESPIRATORY FAILURE WITH HYPOXIA J96.22 - ACUTE AND CHRONIC RESPIRATORY FAILURE WITH HYPERCAPNIA (3) Anemia Code(s): D64.9 - ANEMIA, UNSPECIFIED (4) CHF (congestive heart failure) Code(s): I50.9 - HEART FAILURE, UNSPECIFIED (5) COPD exacerbation Code(s): J44.1 - CHRONIC OBSTRUCTIVE PULMONARY DISEASE W (ACUTE) EXACERBATION (6) Chronic diastolic (congestive) heart failure Code(s): I50.32 - CHRONIC DIASTOLIC (CONGESTIVE) HEART FAILURE (7) Coronary artery disease Code(s): I25.10 - ATHSCL HEART DISEASE OF [place] CORONARY ARTERY W/O ANG PCTRS (8) History of pulmonary embolism Code(s): Z86.711 - PERSONAL HISTORY OF PULMONARY EMBOLISM (9) Morbid obesity Code(s): E66.01 - MORBID (SEVERE) OBESITY DUE TO EXCESS CALORIES (10) Pulmonary hypertension Code(s): I27.2 - OTHER SECONDARY PULMONARY HYPERTENSION * DO NOT USE *
[2017-09-21] MEDS: WARFARIN NA 3 MG TABLET PO SCH (17:31)
[2017-09-21 19:09] VITALS: BP 105/61; PULSE 109; TEMP 98.7
== END 2017-09-21 19:12 | DRG 291 ==
LOC: JER 16:08 → JERBED 19:31 → J5S 08-21 06:49
PROVIDERS: ADMIT Internal Medicine; ATTEND Internal Medicine
DX: I11.0 Hypertensive heart disease with heart failure (principal); J96.21 Acute and chronic respiratory failure with hypoxia; J96.22 Acute and chronic respiratory failure with hypercapnia; J44.1 Chronic obstructive pulmonary disease with (acute) exacerbation; Z68.42 Body mass index [BMI] 45.0-49.9, adult; K62.5 Hemorrhage of anus and rectum; Z99.81 Dependence on supplemental oxygen; I50.33 Acute on chronic diastolic (congestive) heart failure; E66.01 Morbid (severe) obesity due to excess calories; Z86.711 Personal history of pulmonary embolism; Z79.01 Long term (current) use of anticoagulants; I25.10 Atherosclerotic heart disease of native coronary artery without angina pectoris; Z87.891 Personal history of nicotine dependence; I27.20 Pulmonary hypertension, unspecified; G47.33 Obstructive sleep apnea (adult) (pediatric); E78.00 Pure hypercholesterolemia, unspecified; Z86.73 Personal history of transient ischemic attack (TIA), and cerebral infarction without residual deficits; D64.9 Anemia, unspecified; R04.0 Epistaxis; K64.9 Unspecified hemorrhoids; E78.5 Hyperlipidemia, unspecified; J06.9 Acute upper respiratory infection, unspecified; H91.8X2 Other specified hearing loss, left ear; H11.31 Conjunctival hemorrhage, right eye; H65.91 Unspecified nonsuppurative otitis media, right ear; K59.00 Constipation, unspecified; D72.829 Elevated white blood cell count, unspecified; D69.6 Thrombocytopenia, unspecified; Z86.718 Personal history of other venous thrombosis and embolism
CPT/HCPCS: 36415; 36430; 36600; 71010-TC; 80048; 80053; 81003; 81015; 82272; 82375; 82550; 82553; 82607; 82728; 82746; 82784; 82803; 83010; 83021; 83050; 83516; 83540; 83550; 83605; 83615; 83735; 84132; 84155; 84165; 84443; 84484; 85025; 85027; 85044; 85610; 85660; 85730; 86334; 86850; 86880; 86900; 86901; 86922; 87040; 87086; 88300-TC; 90688; 93005; 93010; 94010; 94640; 94660; 97116-GP; 97161-GP; 99285-25; G0008; J1756; P9038; P9058

== ENCOUNTER 2017-11-23 08:45 | Inpatient (IN) | payer OTHER ==
[2017-11-23] MEDS ORDERED: ACETAMINOPHEN INJECTION 100 ML IVPB ONE (08:58)
[2017-11-23] MEDS ORDERED: methylPREDNISolone NA SUCC 125 MG/2 ML VIAL IVPB ONE (08:59)
[2017-11-23] MEDS ORDERED: ACETAMINOPHEN 1000 MG/100 ML VIAL (NON FORMULARY) IVPB ONE (08:59)
--- NOTE | 2017-11-23 08:59 | PDOC ---
History of Present Illness - General Chief Complaint: Shortness of Breath Stated Complaint: SHORTNESS OF BREATH Time Seen by Provider: 11/23/17 08:57 - History of Present Illness Initial Comments: 11/23/17 09:26 Patient is an 67 y.o. female with a PMH of CHF, COPD (on 3 L NC @ baseline) PE, CVA (w/residual L sided visual loss), IDDM who was BIBA from [facility] for respiratory distress. Patient states she has been feeling short of breath for 2 days and she initially increased her O2 from 3L to 4L with some relief however this morning she woke up and could not breath at all. As per Felix Torres RN @ [facility] ([phone]) - patient was hypertensive (SBP 180's) this am as well as c/o dyspnea. Patient given Duo Neb x1 and transferred to our ED NKDA Surgical: denies PMD: Dr. Eliza Dangelo (@ [facility]); evaluated by Dr. Whitlock on 08/11 admission @ our facility Past History - Past Medical History Allergies/Adverse Reactions: Allergies Allergy/AdvReac Type Severity Reaction Status Date / Time No Known Allergies Allergy Verified 11/23/17 08:55 Home Medications: Ambulatory Orders Cholecalciferol (Vitamin D3) [Vitamin D3] 2,000 unit PO DAILY #30 capsule Budesonide/Formeterol Fumarate [SYMBICORT 160/4.5mcg -] 1 inh PO BID #7 inhaler 11/26/15 Ferrous Sulfate [Feosol] 325 mg PO TID #30 ud 11/26/15 Nifedipine ER [Procardia XL -] 30 mg PO DAILY #30 tab.er.24 11/26/15 Rosuvastatin Calcium [Crestor] 10 mg PO HS #30 tablet 11/26/15 Tiotropium [place] [Spiriva] 1 inh PO DAILY #7 inh 11/26/15 Warfarin Na [Coumadin -] 2 mg PO HS 06/14/17 Albuterol 0.083% Nebulizer Claudia [Ventolin 0.083% Nebulizer Soln -] 1 amp NEB Q4H PRN amp 09/21/17 Benzocaine Ointment [Americaine Ointment -] 1 applic [place] PRN PRN tube 09/21/17 Furosemide [Lasix -] 40 mg PO BID@0600,1400 tablet 09/21/17 Insulin Sliding Scale [Novolog Vial Sliding Scale -] 1 vial SQ ACHS units 09/21 Polyethylene Glycol 3350 [Miralax 119 gm Btl -] 17 gm PO DAILY bottle 09/21/17 Valsartan [Diovan] 160 mg PO DAILY tablet 09/21/17 Acetaminophen [Acetaminophen ER] 2 tab PO Q12H 11/23/17 Cyclosporine [Restasis] 1 drop OU BID 11/23/17 Guaifenesin Dm [Robitussin Dm -] 15 ml PO Q6H 11/23/17 Insulin Glargine,Hum.rec.anlog [Lantus] 2 unit SQ DAILY 11/23/17 Meclizine HCl [Antivert -] 12.5 mg PO BID PRN 11/23/17 Menthol [Bengay Ultra Strength] 1 each TP DAILY 11/23/17 Pantoprazole Sodium [Protonix] 40 mg PO DAILY 11/23/17 Prednisone 30 mg PO Q48H 11/23/17 Prednisone [Deltasone -] 25 mg PO Q48H 11/23/17 Sennosides [Senna -] 2 tab PO HS 11/23/17 Anemia: Yes Asthma: Yes Cancer: No Cardiac Disorders: No CVA: Yes COPD: Yes CHF: Yes Dementia: No Diabetes: No GI Disorders: No Disorders: No HTN: Yes Hypercholesterolemia: Yes Liver Disease: No Seizures: No Thyroid Disease: No - Surgical History Cardiac Surgery: No Neurologic Surgery: No Orthopedic Surgery: Yes - Immunization History Immunization Up to Date: Yes - Suicide/Smoking/Psychosocial Hx Smoking Status: No Smoking History: Unknown if ever smoked Have you smoked in the past 12 months: No Number of Cigarettes Smoked Daily: 0 If you are a former smoker, when did you quit?: 1998 Cigars Per Day: 5 'Breaking Loose' booklet given: 11/20/13 Hx Alcohol Use: No Drug/Substance Use Hx: No Substance Use Type: None Hx Substance Use Treatment: No Review of Systems - Review of Systems Constitutional: No: Chills, Fever HEENTM: No: Recent change in vision Respiratory: Yes: Shortness of Breath, SOB at Rest, Wheezing Cardiac (ROS): No: Chest Pain ABD/GI: No: Constipated, Diarrhea, Nausea, Vomiting : No: Burning, Dysuria *Physical Exam - Physical Exam General Appearance: Yes: Nourished, Obese Neck: positive: Trachea midline, Supple Respiratory/Chest: positive: Labored Respiration, Rapid RR, Wheezing Cardiovascular: positive: S1, S2, Edema Gastrointestinal/Abdominal: positive: Normal Bowel Sounds, Soft Extremity: positive: Normal Capillary Refill, Normal Inspection Integumentary: positive: Normal Color, Dry, Warm Neurologic: positive: Fully Oriented, Alert ED Treatment Course - LABORATORY CBC & Chemistry Diagram: 11/23/17 09:20 11/23/17 09:20 Medical Decision Making - Medical Decision Making 11/23/17 10:28 Patient is a 67 y.o female who presents to our ED in respiratory distress. At presentation patient's is hypoxic and tachycardic. ED sepsis work-up initiated - will place patient on BIPAP. Rectal temp 100.7 --> IV Tylenol. Reassess. 11/23/17 12:02 Patient initially on BIPBP (FiO2 50%) -- with goal SpO2 92-94%. Patient weaned to NC, saturating @ 94% on 4 L. VBG shows pCO2 110 suggesting COPD exacerbation. WBC 13.6, Vanco/Pip Tazo for HCAP. 11/23/17 12:05 Case d/w Dr. Cross agrees with ICU admission. Repeat ABG, EKG pending. Case d/w Dr. Whitlock, accepts for admission. Consult placed to Dr. Hernandez who has evaluated patient on multiple prior occasions as per EMR 11/23/17 12:31 Patient saturating 94% on 4 L NC. BP 140's/70's, patient tachycardia improved to low 100's. Repeat EKG shows sinus tachycardia (HR 103) with possible PVC's, non ischemic. Will continue to monitor while in ED. 11/23/17 18:58 Patient transferred to ICU. *DC/Admit/Observation/Transfer Diagnosis at time of Disposition: Respiratory distress - Discharge Dispostion Admit: Yes - Referrals - Patient Instructions - Post Discharge Activity
--- NOTE | 2017-11-23 09:22 | PDOC ---
Attending Attestation - Resident Resident Name: DamionNancy - ED Attending Attestation I have performed the following: I have examined & evaluated the patient, The case was reviewed & discussed with the resident, I agree w/resident's findings & plan, Exceptions are as noted - HPI HPI: 11/23/17 09:19 67-year-old female with history of COPD on home oxygen, pulmonary hypertension secondary to recurrent PE, morbid obesity, high cholesterol presents from group home with respiratory distress. Found to be hypoxic in the field by EMS , improved with nonrebreather. - Physicial Exam PE: 11/23/17 09:20 Rectal temp 100.7, tachycardia, tachypnea Alert and in moderate respiratory distress Only fair air entry that is symmetric, bilateral inspiratory and expiratory wheezing, no crackles appreciated - Critical Care Time Total Critical Care Time: 105 Critical Care Statement: The care of this patient involved high complexity decision making to prevent further life threatening deterioration of the patient 's condition and/or to evaluate & treat vital organ system(s) failure or risk of failure. - Medical Decision Making 11/23/17 09:21 Patient seen and evaluated with the resident. I agree with the overall evaluation, assessment, and management with the following summary of visit: 67-year-old female with history of COPD and PE presents with acute respiratory distress. Question COPD exacerbation, recurrence of PE, rule out pneumonia. Rule out CHF. Patient seen immediately upon arrival, placed on monitor with nonrebreather and nebulizers, respiratory and BiPAP ordered Labs, EKG, chest x-ray Nebulizers, IV steroids Admission, possible ICU 11/23/17 11:15 Markedly improved after BiPAP, much more alert, speaking in 6-7 words, smiling. ABG shows pH 7.25, pCO2 of 90. Given clinical improvement will continue to monitor on supplemental oxygen with nebulizers and repeat ABG. She was admitted to the ICU, given antibiotics for possible infiltrates on chest x-ray. O2 sat is 88% on 6 L nasal cannula, we'll supplement with high flow and proceed with admission. 11/23/17 14:12 2nd ABG improved pCO2, O2 slightly decreased on nasal cannula. high flow unavailable, refusing bipap. Heart Score/ECG Review #1 ECG reviewed & interpreted by me at: 09:03 General ECG Interpretation: Sinus Rhythm (tachy at 132), Normal Intervals (qtc 423), No acute ischemic changes #2 ECG reviewed & interpreted by me at: 12:17 General ECG Interpretation: Sinus Rhythm (tachy at 103), Normal Intervals (qtc 448), No acute ischemic changes Compared to previous ECG there are: Changes noted (improved HR)
[2017-11-23 09:32] LABS: URINE APPEARANCE CLEAR; URINE BILIRUBIN NEGATIVE (NEGATIVE); URINE BLOOD 1+ (NEGATIVE); URINE COLOR STRAW; URINE GLUCOSE (UA) NEGATIVE (NEGATIVE); URINE KETONE NEGATIVE (NEGATIVE); URINE LEUK ESTERASE NEGATIVE (NEGATIVE); URINE NITRITE NEGATIVE (NEGATIVE); URINE PROTEIN NEGATIVE (NEGATIVE); URINE UROBILINOGEN NEGATIVE mg/dL (0.2-1.0)
[2017-11-23] MEDS: ALBUTEROL SO4 2.5/IPRATROPIUM 0.5 INH SOL 3 ML VIAL.NEB. NEB SCH (09:34)
[2017-11-23] MEDS ORDERED: methylPREDNISolone NA SUCC 125 MG/2 ML VIAL ONE (09:38)
[2017-11-23] MEDS ORDERED: ALBUTEROL SO4 2.5/IPRATROPIUM 0.5 INH SOL 3 ML VIAL.NEB. NEB ONE (09:38)
[2017-11-23 09:46] LABS: BASO % 0.7 % (0-2.0); EOS % 0.3 % (0-4.5); HEMATOCRIT 27.8 % (32.4-45.2); LYMPH % 11.4 % (8-40); MCH 22.7 pg (25.7-33.7); MCHC 27.6 g/dl (32.0-36.0); MEAN CELL VOLUME 82.2 fl (80-96); MEAN PLT VOLUME 8.6 fl (7.5-11.1); MONO % 5.2 % (3.8-10.2); NEUT % 82.4 % (42.8-82.8); PLATELET COUNT 204 K/MM3 (134-434); RBC 3.38 M/mm3 (3.60-5.2); RDW 15.8 % (11.6-15.6); WHITE BLOOD COUNT 13.6 K/mm3 (4.0-10.0)
[2017-11-23 09:47] LABS: HEMOGLOBIN 7.7 GM/dL (10.7-15.3)
[2017-11-23 09:51] LABS: EPI CELLS RARE /HPF (FEW); URINE BACTERIA MODERATE /hpf (NONE SEEN); URINE HYALINE CAST 11 /lpf; URINE MUCUS RARE
[2017-11-23 09:59] LABS: ALBUMIN 3.3 g/dl (3.4-5.0); ANION GAP 5 (8-16); BILIRUBIN,TOTAL 0.4 mg/dL (0.2-1.0); BLOOD UREA NITROGEN 27 mg/dL (7-18); CALCIUM 7.9 mg/dL (8.5-10.1); CHLORIDE 98 mmol/L (98-107); CO2 40 mmol/L (21-32); CREATININE 1.3 mg/dL (0.55-1.02); GLUCOSE,RANDOM 176 mg/dL (74-106); SGPT/ALT 46 U/L (12-78); SODIUM 143 mmol/L (136-145); TOT PROT 6.4 g/dl (6.4-8.2)
[2017-11-23 09:59] LABS: ARTERIAL BLD GAS O2 SATURATION 97.5 % (90-98.9); ARTERIAL BLOOD GAS BASE EXCESS 10.2 meq/l (-2-2); ARTERIAL BLOOD GAS pH 7.25 (7.35-7.45); CARBOXYHEMOGLOBIN 1.3 gm% (0.5-2.0)
[2017-11-23 10:01] LABS: ALK PHOS 73 U/L (45-117)
[2017-11-23 10:03] LABS: POTASSIUM 4.4 mmol/L (3.5-5.1); SGOT/AST 59 U/L (15-37)
[2017-11-23 10:04] LABS: VENOUS PH 7.18 (7.32-7.42); VENOUS PO2 52.5 mmHg (28-48)
[2017-11-23 10:08] LABS: ALLENS TEST POSITIVE
[2017-11-23] MEDS ORDERED: PIPERACILLIN/TAZOB 2.25 GM 2.25 GM/50 ML BAG IVPB ONE (10:21)
[2017-11-23] MEDS ORDERED: VANCOMYCIN 1,000 MG in DEXTROSE 5%-WATER - 250 ML IVPB ONE (10:24)
[2017-11-23] MEDS ORDERED: VANCOMYCIN 1 GRAM (PRE-DOCKED) 1,000 MG/250 ML BAG IVPB ONE (10:30)
[2017-11-23] MEDS ORDERED: PIPERACILLIN/TAZOBACTAM 2.25 GM VIAL IVPB ONE (10:30)
[2017-11-23 10:38] LABS: INR 2.46 (0.82-1.09); PROTHROMBIN TIME (PATIENT) 27.8 SEC (9.98-11.88)
[2017-11-23 10:41] LABS: ACTIVATED PTT 36.1 SECONDS (26.9-34.4)
[2017-11-23 13:33] LABS: ARTERIAL BLD GAS O2 SATURATION 92.7 % (90-98.9); ARTERIAL BLOOD GAS BASE EXCESS 11.4 meq/l (-2-2); ARTERIAL BLOOD GAS PO2 66.7 mmHg (80-100); ARTERIAL BLOOD GAS pH 7.33 (7.35-7.45)
[2017-11-23 13:35] LABS: ALLENS TEST POSITIVE
[2017-11-23 13:36] LABS: ARTERIAL BLOOD GAS PCO2 74.9 mmHg (35-45)
[2017-11-23 17:02] VITALS: BMI 48.0
[2017-11-23] MEDS: MUPIROCIN 2% TOPICAL OINTMENT FOR DECOLONIZATION NS SCH (21:41)
[2017-11-23] MEDS: CHLORHEXIDINE GLUCONATE 4% CLEANSER FOR DECOLONIZATION TP SCH (21:41)
[2017-11-23] MEDS ORDERED: ALBUTEROL SO4 0.083% IH SOL 2.5 MG/3 ML VIAL.NEB. NEB ONE ×2 (22:04)
--- NOTE | 2017-11-23 22:07 | CONSULT ---
Consult Consult Specialty:: PULM/CCM Referred by:: Dr. Graciela Whitlock Reason for Consultation:: Exacerb/o COPD - History of Present Illness Chief Complaint: SOB History of Present Illness: Ms. Geoffrey Feliciano is a 67 y/o woman SNF resident w/ COPD (on 3 L NC @ baseline) , PE, CHF, CVA (w/residual L sided visual loss), & IDDM BIBA from [facility] for respiratory distress. 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 Pt states that she awoke this morning completely unable to catch her breath. Of note, Herscher reports that the pt was SOB & hypertensive (SBP 180's) this AM. Pt Transferred now to the ICU for Exacerb/o COPD. 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 Cardio/Vascular: Yes: CHF (chronic diastolic), HTN, Hyperlipdemia Pulmonary: Yes: COPD, O2 Dependent, Pulmonary Embolus, Other (pulmonary HTN) - Alcohol/Substance Use Hx Alcohol Use: No - Smoking History Smoking history: Unknown if ever smoked Have you smoked in the past 12 months: No Aproximately how many cigarettes per day: 0 If you are a former smoker, when did you quit?: 1998 - Social History Usual Living Arrangement: Alone History of Recent Travel: No Home Medications - Allergies Allergies/Adverse Reactions: Allergies Allergy/AdvReac Type Severity Reaction Status Date / Time No Known Allergies Allergy Verified 11/23/17 08:55 - Home Medications Home Medications: Ambulatory Orders Cholecalciferol (Vitamin D3) [Vitamin D3] 2,000 unit PO DAILY #30 capsule Budesonide/Formeterol Fumarate [SYMBICORT 160/4.5mcg -] 1 inh PO BID #7 inhaler 11/26/15 Ferrous Sulfate [Feosol] 325 mg PO TID #30 ud 11/26/15 Nifedipine ER [Procardia XL -] 30 mg PO DAILY #30 tab.er.24 11/26/15 Rosuvastatin Calcium [Crestor] 10 mg PO HS #30 tablet 11/26/15 Tiotropium [place] [Spiriva] 1 inh PO DAILY #7 inh 11/26/15 Warfarin Na [Coumadin -] 2 mg PO HS 06/14/17 Albuterol 0.083% Nebulizer Claudia [Ventolin 0.083% Nebulizer Soln -] 1 amp NEB Q4H PRN amp 09/21/17 Benzocaine Ointment [Americaine Ointment -] 1 applic [place] PRN PRN tube 09/21/17 Furosemide [Lasix -] 40 mg PO BID@0600,1400 tablet 09/21/17 Insulin Sliding Scale [Novolog Vial Sliding Scale -] 1 vial SQ ACHS units 09/21 Polyethylene Glycol 3350 [Miralax 119 gm Btl -] 17 gm PO DAILY bottle 09/21/17 Valsartan [Diovan] 160 mg PO DAILY tablet 09/21/17 Acetaminophen [Acetaminophen ER] 2 tab PO Q12H 11/23/17 Cyclosporine [Restasis] 1 drop OU BID 11/23/17 Guaifenesin Dm [Robitussin Dm -] 15 ml PO Q6H 11/23/17 Insulin Glargine,Hum.rec.anlog [Lantus] 2 unit SQ DAILY 11/23/17 Meclizine HCl [Antivert -] 12.5 mg PO BID PRN 11/23/17 Menthol [Bengay Ultra Strength] 1 each TP DAILY 11/23/17 Pantoprazole Sodium [Protonix] 40 mg PO DAILY 11/23/17 Prednisone 30 mg PO Q48H 11/23/17 Prednisone [Deltasone -] 25 mg PO Q48H 11/23/17 Sennosides [Senna -] 2 tab PO HS 11/23/17 Family Disease History - Family Disease History Family History: Denies Review of Systems - Review of Systems Constitutional: reports: No Symptoms Eyes: reports: No Symptoms HENT: reports: No Symptoms Neck: reports: No Symptoms Cardiovascular: reports: No Symptoms Respiratory: reports: Exercise Intolerance, SOB, SOB on Exertion, Wheezing Gastrointestinal: reports: No Symptoms Genitourinary: reports: No Symptoms Breasts: reports: No Symptoms Reported Musculoskeletal: reports: Joint Pain Integumentary: reports: No Symptoms Neurological: reports: No Symptoms Endocrine: reports: No Symptoms Hematology/Lymphatic: reports: No Symptoms Psychiatric: reports: No Symptoms Pain Intensity: 0 Physical Exam Vital Signs: Vital Signs Temperature 98.3 F 11/23/17 11:30 Pulse Rate 97 H 11/23/17 21:29 Respiratory Rate 18 11/23/17 21:29 Blood Pressure 118/68 11/23/17 21:29 O2 Sat by Pulse Oximetry (%) 99 11/23/17 21:20 Constitutional: Yes: Well Nourished, No Distress, Calm, Moderate Distress Eyes: Yes: WNL, Conjunctiva Clear, EOM Intact HENT: Yes: WNL, Atraumatic, Normocephalic Neck: Yes: WNL, Supple, Trachea Midline Cardiovascular: Yes: WNL, Regular Rate and Rhythm Respiratory: Yes: Diminished, On Nasal O2, Wheezes Gastrointestinal: Yes: Normal Bowel Sounds, Soft, Abdomen, Obese ...Rectal Exam: Yes: Deferred Renal/: Yes: WNL Breast(s): Yes: WNL Musculoskeletal: Yes: WNL Extremities: Yes: WNL Edema: Yes Edema: LLE: Trace, RLE: Trace Peripheral Pulses WNL: Yes Integumentary: Yes: WNL Neurological: Yes: WNL, Alert, Oriented ...Motor Strength: WNL Psychiatric: Yes: WNL, Alert, Oriented Labs: CBC, BMP 11/23/17 09:20 11/23/17 09:20 Imaging - Results Chest X-ray: Image Reviewed (CXR 11/23: Borderline cardiomegaly. Bilateral increased lung markings and mild bibasal atelectatic changes without gross infiltrates) EKG: Image Reviewed (12-LEAD 11/23: RSR in the low 100's w/o ectopy, no ST or T- wave aberration, QTc = 460ms, no acute process (My Read).) Problem List - Problems (1) COPD exacerbation Code(s): J44.1 - CHRONIC OBSTRUCTIVE PULMONARY DISEASE W (ACUTE) EXACERBATION (2) Respiratory distress Code(s): R06.03 - ACUTE RESPIRATORY DISTRESS (3) CHF (congestive heart failure) Code(s): I50.9 - HEART FAILURE, UNSPECIFIED (4) Hypertension Code(s): I10 - ESSENTIAL (PRIMARY) HYPERTENSION (5) Morbid obesity Code(s): E66.01 - MORBID (SEVERE) OBESITY DUE TO EXCESS CALORIES (6) SOB (shortness of breath) Code(s): R06.02 - SHORTNESS OF BREATH Assessment/Plan ASSESS: This is a 67 y/o woman SNF resident w/ COPD (on 3 L NC @ baseline), PE, CHF, CVA (w/residual L sided visual loss), & IDDM BIBA today w/ Exacerb/o COPD + /- some component of V/O. PLAN: -Rg Clxr -Urine Ags -Flu Jessica -Supp FiO2 for a goal SpO2 > 92% -NEBS -Steroids -Lasix gtt -Bi-Level -Azith X 5 Days -Strict I's & O's -Monitor UOP -Trend BUN/Cr -Replete electrolyte sprn -Daily Weights -SQH -PPI -Transfer to Med Surg in the AM for continued care. Thank you for this interesting consult. ERIKA, ACNP-BC [facility] ICU PULM/CCM [id number] Critical Care Time/MDM Note Total Critical Care Time: 39 Critical Care Statement: The care of this patient involved high complexity decision making to prevent further life threatening deterioration of the patient 's condition and/or to evaluate & treat vital organ system(s) failure or risk of failure.
--- NOTE | 2017-11-23 22:49 | HP ---
Admitting History and Physical - Admission History of Present Illness: Patient is a 67 y/o morbidly obese female with a PMH of HTN, HLD, CHF, COPD (o2 dependent), PE, CVA (w/residual L sided visual loss), IDDM, anemia, CKD, GERD and vertigo. Pt was sent from SNF due to respiratory distress. Patient states she has been feeling short of breath for 2 days and she initially increased her O2 from 3L to 4L with some relief however this morning she woke up and could not breath at all. Pt does have a dry nonproductive cough but denies any wheezing/chest pain/palpitations/abdominal pain/nausea/vomiting. In the ER pt was positive for influenza and had a WBC of >13,000. 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 Cardiovascular: Yes: CHF (chronic diastolic), HTN, Hyperlipdemia Pulmonary: Yes: COPD, O2 Dependent, Pulmonary Embolus, Other (pulmonary HTN) Heme/Onc: Yes: Anemia, Hypercoaguable State - Smoking History Smoking history: Unknown if ever smoked Have you smoked in the past 12 months: No Aproximately how many cigarettes per day: 0 If you are a former smoker, when did you quit?: 1998 - Alcohol/Substance Use Hx Alcohol Use: No - Social History History of Recent Travel: No Home Medications - Allergies Allergies/Adverse Reactions: Allergies Allergy/AdvReac Type Severity Reaction Status Date / Time No Known Allergies Allergy Verified 11/23/17 08:55 - Home Medications Home Medications: Ambulatory Orders Cholecalciferol (Vitamin D3) [Vitamin D3] 2,000 unit PO DAILY #30 capsule Budesonide/Formeterol Fumarate [SYMBICORT 160/4.5mcg -] 1 inh PO BID #7 inhaler 11/26/15 Ferrous Sulfate [Feosol] 325 mg PO TID #30 ud 11/26/15 Nifedipine ER [Procardia XL -] 30 mg PO DAILY #30 tab.er.24 11/26/15 Rosuvastatin Calcium [Crestor] 10 mg PO HS #30 tablet 11/26/[address] [place] [Spiriva] 1 inh PO DAILY #7 inh 11/26/15 Warfarin Na [Coumadin -] 2 mg PO HS 06/14/17 Albuterol 0.083% Nebulizer Claudia [Ventolin 0.083% Nebulizer Soln -] 1 amp NEB Q4H PRN amp 09/21/17 Benzocaine Ointment [Americaine Ointment -] 1 applic [place] PRN PRN tube 09/21/17 Furosemide [Lasix -] 40 mg PO BID@0600,1400 tablet 09/21/17 Insulin Sliding Scale [Novolog Vial Sliding Scale -] 1 vial SQ ACHS units 09/21 Polyethylene Glycol 3350 [Miralax 119 gm Btl -] 17 gm PO DAILY bottle 09/21/17 Valsartan [Diovan] 160 mg PO DAILY tablet 09/21/17 Acetaminophen [Acetaminophen ER] 2 tab PO Q12H 11/23/17 Cyclosporine [Restasis] 1 drop OU BID 11/23/17 Guaifenesin Dm [Robitussin Dm -] 15 ml PO Q6H 11/23/17 Insulin Glargine,Hum.rec.anlog [Lantus] 2 unit SQ DAILY 11/23/17 Meclizine HCl [Antivert -] 12.5 mg PO BID PRN 11/23/17 Menthol [Bengay Ultra Strength] 1 each TP DAILY 11/23/17 Pantoprazole Sodium [Protonix] 40 mg PO DAILY 11/23/17 Prednisone 30 mg PO Q48H 11/23/17 Prednisone [Deltasone -] 25 mg PO Q48H 11/23/17 Sennosides [Senna -] 2 tab PO HS 11/23/17 Family Disease History - Family Disease History Family History: Unremarkable Review of Systems - Review of Systems Constitutional: reports: Lethargy, Loss of Appetite, Weakness HENT: reports: No Symptoms Neck: reports: No Symptoms Cardiovascular: reports: Shortness of Breath Respiratory: reports: Cough, SOB Gastrointestinal: reports: No Symptoms Musculoskeletal: reports: No Symptoms Physical Examination Vital Signs: Vital Signs Temperature 98.3 F 11/23/17 11:30 Pulse Rate 97 H 11/23/17 21:29 Respiratory Rate 18 11/23/17 21:29 Blood Pressure 118/68 11/23/17 21:29 O2 Sat by Pulse Oximetry (%) 99 11/23/17 21:20 Constitutional: Yes: Well Nourished, Obese HENT: Yes: WNL Neck: Yes: WNL, Supple Cardiovascular: Yes: Tachycardia Respiratory: Yes: Diminished, Rhonchi Gastrointestinal: Yes: WNL, Normal Bowel Sounds, Soft, Abdomen, Obese Extremities: Yes: Other ((+) ecchymopsis on upper extremities) Edema: No Labs: CBC, BMP 11/23/17 09:20 11/23/17 09:20 Problem List - Problems (1) Influenza Assessment/Plan: Cont tamiflu Code(s): J11.1 - FLU DUE TO UNIDENTIFIED INFLUENZA VIRUS W OTH RESP MANIFEST (2) Acute on chronic respiratory failure with hypoxia and hypercapnia Assessment/Plan: Cont nebulizers/IV steroids As per pulmonary Cont IV zithro Code(s): J96.21 - ACUTE AND CHRONIC RESPIRATORY FAILURE WITH HYPOXIA; J96.22 - ACUTE AND CHRONIC RESPIRATORY FAILURE WITH HYPERCAPNIA (3) Anemia Assessment/Plan: Pt being transfused PRBC's Monitor H/H Code(s): D64.9 - ANEMIA, UNSPECIFIED (4) CHF (congestive heart failure) Assessment/Plan: Cont diuresis Code(s): I50.9 - HEART FAILURE, UNSPECIFIED Qualifiers: Congestive heart failure type: diastolic Congestive heart failure chronicity: acute on chronic Qualified Code(s): I50.33 - Acute on chronic diastolic (congestive) heart failure (5) COPD exacerbation Assessment/Plan: Cont nebulizers Cont IV solumedrol Code(s): J44.1 - CHRONIC OBSTRUCTIVE PULMONARY DISEASE W (ACUTE) EXACERBATION (6) Chronic diastolic (congestive) heart failure Code(s): I50.32 - CHRONIC DIASTOLIC (CONGESTIVE) HEART FAILURE (7) History of pulmonary embolism Assessment/Plan: Cont coumadin monitor pt/inr Code(s): Z86.711 - PERSONAL HISTORY OF PULMONARY EMBOLISM (8) Hypertension Assessment/Plan: BP stable Code(s): I10 - ESSENTIAL (PRIMARY) HYPERTENSION (9) HLD (hyperlipidemia) Code(s): E78.5 - HYPERLIPIDEMIA, UNSPECIFIED (10) Coronary artery disease Code(s): I25.10 - ATHSCL HEART DISEASE OF [place] CORONARY ARTERY W/O ANG PCTRS (11) Morbid obesity Code(s): E66.01 - MORBID (SEVERE) OBESITY DUE TO EXCESS CALORIES
[2017-11-23] MEDS ORDERED: FUROSEMIDE INJECTION 100 MG in SODIUM CHLORIDE 90 ML IVPB SCH (23:45)
[2017-11-23] MEDS ORDERED: AZITHROMYCIN IVPB 500 MG in DEXTROSE 5%-WATER - 250 ML IVPB STA (23:47)
[2017-11-24] MEDS ORDERED: FUROSEMIDE 40 MG/4 ML INJECTABLE VIAL ONE ×2 (00:17→17:38)
[2017-11-24] MEDS: ALBUTEROL SO4 0.083% IH SOL 2.5 MG/3 ML VIAL.NEB. NEB PRN ×4 (02:19→21:10)
[2017-11-24 06:18] LABS: BASO % 0.3 % (0-2.0); EOS % 0.2 % (0-4.5); HEMATOCRIT 23.8 % (32.4-45.2); LYMPH % 15.7 % (8-40); MCH 23.8 pg (25.7-33.7); MEAN CELL VOLUME 81.9 fl (80-96); MONO % 10.4 % (3.8-10.2); NEUT % 73.4 % (42.8-82.8); PLATELET COUNT 182 K/MM3 (134-434); RBC 2.91 M/mm3 (3.60-5.2); RDW 16.1 % (11.6-15.6); WHITE BLOOD COUNT 8.8 K/mm3 (4.0-10.0)
[2017-11-24 06:32] LABS: INR 2.63 (0.82-1.09); PROTHROMBIN TIME (PATIENT) 29.7 SEC (9.98-11.88)
[2017-11-24 06:37] LABS: HEMOGLOBIN 6.9 GM/dL (10.7-15.3)
[2017-11-24 06:53] LABS: ANION GAP 6 (8-16); BLOOD UREA NITROGEN 22 mg/dL (7-18); CHLORIDE 96 mmol/L (98-107); CO2 43 mmol/L (21-32); GLUCOSE,RANDOM 109 mg/dL (74-106); POTASSIUM 3.6 mmol/L (3.5-5.1); SGOT/AST 32 U/L (15-37); SGPT/ALT 34 U/L (12-78); SODIUM 145 mmol/L (136-145)
[2017-11-24 06:55] LABS: ALK PHOS 53 U/L (45-117); BILIRUBIN,TOTAL 0.3 mg/dL (0.2-1.0); CALCIUM 8.3 mg/dL (8.5-10.1); CREATININE 1.2 mg/dL (0.55-1.02); TOT PROT 5.7 g/dl (6.4-8.2)
--- NOTE | 2017-11-24 07:22 | PN ---
Physical Exam: SUBJECTIVE: Patient seen and examined. Still feels SOB, does not want Bipap ( because she feels claustrophobic) on NC- 4L. Found to be Influenza A positive today. Anemic this am. OBJECTIVE: Vital Signs Period Temp Pulse Resp BP Sys/Nielsen Pulse Ox Last 24 Hr 98.3 F-100.7 F 89-130 15-38 99-161/54-80 90-100 Vital Signs Temp 98.9 F 11/24/17 06:00 Pulse 101 H 11/24/17 06:00 Resp 15 11/24/17 06:00 BP 107/58 11/24/17 06:00 Pulse Ox 99 11/23/17 21:20 Intake & Output 11/21/17 11/22/17 11/23/17 11/24/17 23:59 23:59 23:59 23:59 Intake Total 560 Output Total 1700 900 Balance -1700 -340 Weight 127.006 kg 131.088 kg GENERAL: The patient is obese, awake, alert, NC- 4L. HEAD: Normal with no signs of trauma. EYES: PERRL, extraocular movements intact, ENT: NC- 4L, oropharynx clear without exudates, moist mucous membranes. NECK: supple, No JVP. LUNGS: wheezes/rhonchi > L lung base, scattered creps HEART: tachycardic, S1, S2 . ABDOMEN: Soft, obese, nontender, nondistended, normoactive bowel sounds, EXTREMITIES: 2+ pulses, warm, well-perfused, mild bilateral pedal edema. NEUROLOGICAL: AAOx3,communicating, moving all limbs. Normal speech, gait not observed. PSYCH: Normal mood, normal affect. Lines: TADEO, alarcon, MALLORY peripheral line CBC, BMP 11/24/17 05:20 11/24/17 05:20 Laboratory Results - last 24 hr 11/23/17 11/23/17 11/23/17 09:00 09:20 09:20 WBC 13.6 H D RBC 3.38 L Hgb 7.7 L Hct 27.8 L MCV 82.2 MCH 22.7 L MCHC 27.6 L RDW 15.8 H Plt Count 204 D MPV 8.6 Neutrophils % 82.4 Lymphocytes % 11.4 Monocytes % 5.2 Eosinophils % 0.3 Basophils % 0.7 PT with INR 27.80 H INR 2.46 H D PTT (Actin FS) 36.1 H D Puncture Site ABG pH ABG pCO2 at Pt Temp ABG pO2 at Pt Temp ABG HCO3 ABG O2 Sat (Measured) ABG O2 Content ABG Base Excess Willy Test VBG pH 7.18 L* POC VBG pCO2 110.0 H* D POC VBG pO2 52.5 H D Mixed VBG HCO3 39.3 H Carboxyhemoglobin Methemoglobin O2 Delivery Device Oxygen Flow Rate Vent Mode Vent Rate Mechanical Rate PEEP Pressure Support Vent Sodium Potassium Chloride Carbon Dioxide Anion Gap BUN Creatinine Creat Clearance w eGFR Random Glucose Lactic Acid Calcium Total Bilirubin AST ALT Alkaline Phosphatase Creatine Kinase Troponin I Total Protein Albumin Urine Color Urine Appearance Urine pH Ur Specific [place] Urine Protein Urine Glucose (UA) Urine Ketones Urine Blood Urine Nitrite Urine Bilirubin Urine Urobilinogen Ur Leukocyte Esterase Urine WBC (Auto) Urine RBC (Auto) Ur Epithelial Cells Urine Bacteria Hyaline Casts Urine Mucus Blood Type Antibody Screen 11/23/17 11/23/17 11/23/17 09:20 09:20 09:20 WBC RBC Hgb Hct MCV MCH MCHC RDW Plt Count MPV Neutrophils % Lymphocytes % Monocytes % Eosinophils % Basophils % PT with INR INR PTT (Actin FS) Puncture Site ABG pH ABG pCO2 at Pt Temp ABG pO2 at Pt Temp ABG HCO3 ABG O2 Sat (Measured) ABG O2 Content ABG Base Excess Willy Test VBG pH POC VBG pCO2 POC VBG pO2 Mixed VBG HCO3 Carboxyhemoglobin Methemoglobin O2 Delivery Device Oxygen Flow Rate Vent Mode Vent Rate Mechanical Rate PEEP Pressure Support Vent Sodium 143 Potassium 4.4 Chloride 98 Carbon Dioxide 40 H Anion Gap 5 L BUN 27 H Creatinine 1.3 H Creat Clearance w eGFR 40.61 Random Glucose 176 H Lactic Acid Calcium 7.9 L Total Bilirubin 0.4 D AST 59 H ALT 46 Alkaline Phosphatase 73 Creatine Kinase 118 Troponin I 0.24 H Total Protein 6.4 Albumin 3.3 L Urine Color Straw Urine Appearance Clear Urine pH 5.0 Ur Specific [place] 1.006 Urine Protein Negative Urine Glucose (UA) Negative Urine Ketones Negative Urine Blood 1+ H Urine Nitrite Negative Urine Bilirubin Negative Urine Urobilinogen Negative Ur Leukocyte Esterase Negative Urine WBC (Auto) 3 Urine RBC (Auto) 3 Ur Epithelial Cells Rare Urine Bacteria Moderate Hyaline Casts 11 Urine Mucus Rare Blood Type Cancelled Antibody Screen Cancelled 11/23/17 11/23/17 11/23/17 09:50 09:59 13:15 WBC RBC Hgb Hct MCV MCH MCHC RDW Plt Count MPV Neutrophils % Lymphocytes % Monocytes % Eosinophils % Basophils % PT with INR INR PTT (Actin FS) Puncture Site Right radial Left radial ABG pH 7.25 L 7.33 L ABG pCO2 at Pt Temp 90.0 H* D 74.9 H* ABG pO2 at Pt Temp 101.0 H D 66.7 L D ABG HCO3 38.4 H 38.4 H ABG O2 Sat (Measured) 97.5 92.7 ABG O2 Content 9.9 L* 9.7 L* ABG Base Excess 10.2 H 11.4 H Willy Test Positive Positive VBG pH POC VBG pCO2 POC VBG pO2 Mixed VBG HCO3 Carboxyhemoglobin 1.3 Methemoglobin 1.2 O2 Delivery Device Bipap Nasal cannula Oxygen Flow Rate 50% 4l Vent Mode S/t Vent Rate 14 Mechanical Rate Bipap PEEP 0.0 Pressure Support Vent 14/6 Sodium Potassium Chloride Carbon Dioxide Anion Gap BUN Creatinine Creat Clearance w eGFR Random Glucose Lactic Acid 0.7 Calcium Total Bilirubin AST ALT Alkaline Phosphatase Creatine Kinase Troponin I Total Protein Albumin Urine Color Urine Appearance Urine pH Ur Specific [place] Urine Protein Urine Glucose (UA) Urine Ketones Urine Blood Urine Nitrite Urine Bilirubin Urine Urobilinogen Ur Leukocyte Esterase Urine WBC (Auto) Urine RBC (Auto) Ur Epithelial Cells Urine Bacteria Hyaline Casts Urine Mucus Blood Type Antibody Screen 11/24/17 11/24/17 11/24/17 05:20 05:20 05:20 WBC 8.8 D RBC 2.91 L Hgb 6.9 L* D Hct 23.8 L MCV 81.9 MCH 23.8 L MCHC 29.0 L RDW 16.1 H Plt Count 182 MPV 9.0 Neutrophils % 73.4 Lymphocytes % 15.7 D Monocytes % 10.4 H D Eosinophils % 0.2 Basophils % 0.3 PT with INR 29.70 H INR 2.63 H PTT (Actin FS) Puncture Site ABG pH ABG pCO2 at Pt Temp ABG pO2 at Pt Temp ABG HCO3 ABG O2 Sat (Measured) ABG O2 Content ABG Base Excess Willy Test VBG pH POC VBG pCO2 POC VBG pO2 Mixed VBG HCO3 Carboxyhemoglobin Methemoglobin O2 Delivery Device Oxygen Flow Rate Vent Mode Vent Rate Mechanical Rate PEEP Pressure Support Vent Sodium 145 Potassium 3.6 Chloride 96 L Carbon Dioxide 43 H Anion Gap 6 L BUN 22 H Creatinine 1.2 H Creat Clearance w eGFR 44.54 Random Glucose 109 H Lactic Acid Calcium 8.3 L Total Bilirubin 0.3 D AST 32 ALT 34 Alkaline Phosphatase 53 Creatine Kinase Troponin I Total Protein 5.7 L Albumin 3.0 L Urine Color Urine Appearance Urine pH Ur Specific [place] Urine Protein Urine Glucose (UA) Urine Ketones Urine Blood Urine Nitrite Urine Bilirubin Urine Urobilinogen Ur Leukocyte Esterase Urine WBC (Auto) Urine RBC (Auto) Ur Epithelial Cells Urine Bacteria Hyaline Casts Urine Mucus Blood Type Antibody Screen 11/24/17 05:20 WBC RBC Hgb Hct MCV MCH MCHC RDW Plt Count MPV Neutrophils % Lymphocytes % Monocytes % Eosinophils % Basophils % PT with INR INR PTT (Actin FS) 33.9 Puncture Site ABG pH ABG pCO2 at Pt Temp ABG pO2 at Pt Temp ABG HCO3 ABG O2 Sat (Measured) ABG O2 Content ABG Base Excess Willy Test VBG pH POC VBG pCO2 POC VBG pO2 Mixed VBG HCO3 Carboxyhemoglobin Methemoglobin O2 Delivery Device Oxygen Flow Rate Vent Mode Vent Rate Mechanical Rate PEEP Pressure Support Vent Sodium Potassium Chloride Carbon Dioxide Anion Gap BUN Creatinine Creat Clearance w eGFR Random Glucose Lactic Acid Calcium Total Bilirubin AST ALT Alkaline Phosphatase Creatine Kinase Troponin I Total Protein Albumin Urine Color Urine Appearance Urine pH Ur Specific [place] Urine Protein Urine Glucose (UA) Urine Ketones Urine Blood Urine Nitrite Urine Bilirubin Urine Urobilinogen Ur Leukocyte Esterase Urine WBC (Auto) Urine RBC (Auto) Ur Epithelial Cells Urine Bacteria Hyaline Casts Urine Mucus Blood Type Antibody Screen Ambulatory Orders Cholecalciferol (Vitamin D3) [Vitamin D3] 2,000 unit PO DAILY #30 capsule Budesonide/Formeterol Fumarate [SYMBICORT 160/4.5mcg -] 1 inh PO BID #7 inhaler 11/26/15 Ferrous Sulfate [Feosol] 325 mg PO TID #30 ud 11/26/15 Nifedipine ER [Procardia XL -] 30 mg PO DAILY #30 tab.er.24 11/26/15 Rosuvastatin Calcium [Crestor] 10 mg PO HS #30 tablet 11/26/15 Tiotropium [place] [Spiriva] 1 inh PO DAILY #7 inh 11/26/15 Warfarin Na [Coumadin -] 2 mg PO HS 06/14/17 Albuterol 0.083% Nebulizer Claudia [Ventolin 0.083% Nebulizer Soln -] 1 amp NEB Q4H PRN amp 09/21/17 Benzocaine Ointment [Americaine Ointment -] 1 applic [place] PRN PRN tube 09/21/17 Furosemide [Lasix -] 40 mg PO BID@0600,1400 tablet 09/21/17 Insulin Sliding Scale [Novolog Vial Sliding Scale -] 1 vial SQ ACHS units 09/21 Polyethylene Glycol 3350 [Miralax 119 gm Btl -] 17 gm PO DAILY bottle 09/21/17 Valsartan [Diovan] 160 mg PO DAILY tablet 09/21/17 Acetaminophen [Acetaminophen ER] 2 tab PO Q12H 11/23/17 Cyclosporine [Restasis] 1 drop OU BID 11/23/17 Guaifenesin Dm [Robitussin Dm -] 15 ml PO Q6H 11/23/17 Insulin Glargine,Hum.rec.anlog [Lantus] 2 unit SQ DAILY 11/23/17 Meclizine HCl [Antivert -] 12.5 mg PO BID PRN 11/23/17 Menthol [Bengay Ultra Strength] 1 each TP DAILY 11/23/17 Pantoprazole Sodium [Protonix] 40 mg PO DAILY 11/23/17 Prednisone 30 mg PO Q48H 11/23/17 Prednisone [Deltasone -] 25 mg PO Q48H 11/23/17 Sennosides [Senna -] 2 tab PO HS 11/23/17 Active Medications Generic Name Dose Route Start Last Admin Trade Name Freq PRN Reason Stop Dose Admin Albuterol Sulfate 1 amp 11/23/17 22:05 11/24/17 06:25 Ventolin 0.083% Nebulizer Soln - NEB 1 amp Q4H PRN Administration SHORT OF BREATH/WHEEZING Chlorhexidine Gluconate 1 applic 11/23/17 22:00 11/23/17 21:41 Hibiclens For Decolonization - TP 1 applic HS SAIMA Administration Azithromycin 500 mg/ Dextrose 250 mls @ 250 mls/hr 11/24/17 10:00 IVPB 11/27/17 11:00 DAILY SAIMA Furosemide 100 mg/ Sodium 100 mls @ 5 mls/hr 11/23/17 23:45 11/24/17 00:31 Chloride IVPB 5 ml/hr TITR SAIMA 5 mls/hr Protocol Administration Mupirocin 1 applic 11/23/17 22:00 11/23/17 21:41 Bactroban Ointment (For Decolonization) - NS 11/28/17 21:59 1 applic BID SAIMA Administration Prednisone 40 mg 11/24/17 10:00 Deltasone - PO 11/27/17 10:00 DAILY SAIMA ASSESSMENT/PLAN: 67 yo F with a PMHx of HTN, PHTN, IDDM, CHF, COPD (on 3 L NC) PE, CVA (w/ residual L sided visual loss), IDDM from [facility] admitted to ICU for acute respiratory failure. Pulm: Acute on Chronic Hypoxic and Hypercapneic Respiratory Failure Likely secondary to Acute COPD Exacerbation with Influenza A Continue Nasal cannular, for BIPAP as needed /tolerated goal SpO2 >90% Stop prednisone Start iv solumedrol 60mg Q8H Continue nebs Continue azithromycin add ceftriaxone Start Tamiflu @75 bid ABG CXR Cardio: Hx of CHF Hx of CVA, HTN, PHTN anemic-6.9 Bilateral increased lung markings/basilar atelectasis on admission Stop lasix drip type and screen stat 2u prbcs Give iv lasix 40mg stat between transfusion repeat CBC at 10pm resume home oral lasix 40mg bid Resume home coumadin resume home valsartan resume Nifedipine ER [Procardia XL -] 30 mg PO DAILY Hemonc: Chronic anemia Hx of PE CBC today 6.9 from 7.7 on admission type and screen stat 2u prbcs Give iv lasix 40mg stat between transfusion Repeat CBC at 10pm Endo: IDDM BGMs ACHS ISS ACHS Renal: AMAURY R/O CKD Cr-1.2 Daily weights Ins and Outs BMP Visit type - Emergency Visit Emergency Visit: Yes ED Registration Date: 11/23/17 Care time: The patient presented to the Emergency Department on the above date and was hospitalized for further evaluation of their emergent condition. - New Patient This patient is new to me today: Yes Date on this admission: 11/24/17 - Critical Care Critical Care patient: Yes Total Critical Care Time (in minutes): 40 Critical Care Statement: The care of this patient involved high complexity decision making to prevent further life threatening deterioration of the patient 's condition and/or to evaluate & treat vital organ system(s) failure or risk of failure. - Discharge Referral Referred to [facility] No
[2017-11-24 08:06] LABS: ARTERIAL BLD GAS O2 SATURATION 90.4 % (90-98.9); ARTERIAL BLOOD GAS BASE EXCESS 15.5 meq/l (-2-2); ARTERIAL BLOOD GAS PO2 62.8 mmHg (80-100); ARTERIAL BLOOD GAS pH 7.34 (7.35-7.45)
[2017-11-24 08:17] LABS: ALLENS TEST POSITIVE
--- NOTE | 2017-11-24 09:17 | PN ---
Progress Note, Physician Chief Complaint: Well known to out service: 67F, former smoker with severe COPD, history of PE on coumadin, mild non-obstx CAD, HTN, chronic diastolic CHF. Recent long admission for COPD, anemia- transferred to [facility] where she has been for about one month. Now returns to ER with several days of cough, chills. Found to be febrile. In ER, hypercarbic/hypoxemic respiratory failure which responded to treatment with BiPap, IV steroids and Lasix. She is in the ICU, alert and oriented and feeling better. Denies chest pain. + edema. No syncope. Feels less lethargic. Placed on lasix gtts by ICU team. History of Present Illness: Ms. Geoffrey Feliciano is a 67 y/o woman SNF resident w/ COPD (on 3 L NC @ baseline) , PE, CHF, CVA (w/residual L sided visual loss), & IDDM BIBA from [facility] for respiratory distress. 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 Pt states that she awoke this morning completely unable to catch her breath. Of note, [place] reports that the pt was SOB & hypertensive (SBP 180's) . - Current Medication List Current Medications: Active Medications Albuterol Sulfate (Ventolin 0.083% Nebulizer Soln -) 1 amp NEB Q4H PRN PRN Reason: SHORT OF BREATH/WHEEZING Last Admin: 11/24/17 06:25 Dose: 1 amp Chlorhexidine Gluconate (Hibiclens For Decolonization -) 1 applic TP HS [facility] Last Admin: 11/23/17 21:41 Dose: 1 applic Azithromycin 500 mg/ Dextrose 250 mls @ 250 mls/hr IVPB DAILY SAIMA Stop: 11/27/17 11:00 Furosemide 100 mg/ Sodium (Chloride) 100 mls @ 5 mls/hr IVPB TITR SAIMA PRN Reason: Protocol Last Admin: 11/24/17 00:31 Dose: 5 ml/hr, 5 mls/hr Mupirocin (Bactroban Ointment (For Decolonization) -) 1 applic NS BID SAIMA Stop: 11/28/17 21:59 Last Admin: 11/23/17 21:41 Dose: 1 applic Prednisone (Deltasone -) 40 mg PO DAILY [facility] Stop: 11/27/17 10:00 - Objective Vital Signs: Vital Signs Temperature 98.9 F 11/24/17 06:00 Pulse Rate 112 H 11/24/17 08:47 Respiratory Rate 15 11/24/17 06:00 Blood Pressure 107/58 11/24/17 06:00 O2 Sat by Pulse Oximetry (%) 93 L 11/24/17 08:47 Constitutional: Yes: No Distress, Calm Eyes: Yes: Conjunctiva Clear Cardiovascular: Yes: Regular Rate and Rhythm Respiratory: Yes: Other (Decreased breath sounds bilaterally, scattered wheeze on expiration. Rales at bases 1/3 up) Gastrointestinal: Yes: Soft, Abdomen, Obese Edema: Yes Edema: LLE: 2+ (mid calf), RLE: 2+ (mid calf) Neurological: Yes: Alert, Oriented ...Motor Strength: WNL Labs: CBC, BMP 11/24/17 05:20 11/24/17 05:20 INR, PTT INR 2.63 (0.82-1.09) H 11/24/17 05:20 - ....Imaging Chest X-ray: Image Reviewed EKG: Image Reviewed (Sinus tach. Low voltage, artifact.) Problem List - Problems (1) Respiratory distress Code(s): R06.03 - ACUTE RESPIRATORY DISTRESS (2) Acute exacerbation of chronic bronchitis Code(s): J20.9 - ACUTE BRONCHITIS, UNSPECIFIED; J42 - UNSPECIFIED CHRONIC BRONCHITIS (3) Acute on chronic respiratory failure with hypoxia and hypercapnia Code(s): J96.21 - ACUTE AND CHRONIC RESPIRATORY FAILURE WITH HYPOXIA; J96.22 - ACUTE AND CHRONIC RESPIRATORY FAILURE WITH HYPERCAPNIA (4) Anemia Code(s): D64.9 - ANEMIA, UNSPECIFIED Qualifiers: Anemia type: unspecified type Qualified Code(s): D64.9 - Anemia, unspecified (5) CHF (congestive heart failure) Code(s): I50.9 - HEART FAILURE, UNSPECIFIED Qualifiers: Congestive heart failure type: diastolic Congestive heart failure chronicity: acute on chronic Qualified Code(s): I50.33 - Acute on chronic diastolic (congestive) heart failure Assessment/Plan IMP: Acute on chronic respiratory failure Acute on chronic COPD exacerbation Acute on chronic diastolic CHF Fever URI, possibly viral History of Pulmonary Embolism on coumadin Anemia, chronic- requiring transfusion REC: 1. Recent and prior echo have shown normal LV systolic fxn with no sig CAD on cath. She is prone to diastolic CHF, likely triggered by reported hypertensive episodes this time. 2. Would wean Lasix drip today and transition to Lasix 40mg IV BID for 1-2 days , then to 40mg IV daily with plan to move to PO Lasix by Thursday. Will need careful assessment of volume status as steroids tend to contribute to her chronic volume overload. 3. Resume ARB when BP allows, was on Diovan. 4. Work up of fever as per ICU team, cultures pending. Antibiotics as per Medicine and Pulmonary.
[2017-11-24] MEDS ORDERED: PT OWN MED DRAWER 7, Y5N ONE ×3 (09:48→21:23)
[2017-11-24] MEDS ORDERED: predniSONE 20 MG TABLET (UD) PO SCH (10:00)
[2017-11-24] MEDS: MUPIROCIN 2% TOPICAL OINTMENT FOR DECOLONIZATION NS SCH ×2 (10:07→21:25)
[2017-11-24] MEDS: AZITHROMYCIN IVPB 500 MG in DEXTROSE 5%-WATER - 250 ML IVPB SCH (10:08)
--- NOTE | 2017-11-24 12:40 | PN ---
Teaching Attending Note Name of Resident: Kay Obregon ATTENDING PHYSICIAN STATEMENT I saw and evaluated the patient. I reviewed the resident's note and discussed the case with the resident. I agree with the resident's findings and plan as documented. SUBJECTIVE: Pt seen and examined in the ICU. Breathing better but still short of breath with cough and wheezing. Declining further BiPAP. OBJECTIVE: Last Vital Signs Temp Pulse Resp BP Pulse Ox 98.7 F 97 H 19 139/90 100 11/24/17 10:00 11/24/17 12:00 11/24/17 10:00 11/24/17 10:00 11/24/17 12:00 Intake & Output 11/21/17 11/22/17 11/23/17 11/24/17 23:59 23:59 23:59 23:59 Intake Total 560 Output Total 1700 900 Balance -1700 -340 Weight 127.006 kg 131.088 kg Gen: tachypneic at rest Heart: RRR Lung: bilateral rhonchi, wheezes Abd: soft, nontender Ext: trace edema CBC, BMP 11/24/17 05:20 11/24/17 05:20 Active Medications Albuterol Sulfate (Ventolin 0.083% Nebulizer Soln -) 1 amp NEB Q4H PRN PRN Reason: SHORT OF BREATH/WHEEZING Last Admin: 11/24/17 06:25 Dose: 1 amp Chlorhexidine Gluconate (Hibiclens For Decolonization -) 1 applic TP HS SAIMA Last Admin: 11/23/17 21:41 Dose: 1 applic Azithromycin 500 mg/ Dextrose 250 mls @ 250 mls/hr IVPB DAILY SAIMA Stop: 11/27/17 11:00 Last Admin: 11/24/17 10:08 Dose: 250 mls/hr Furosemide 100 mg/ Sodium (Chloride) 100 mls @ 5 mls/hr IVPB TITR SAIMA PRN Reason: Protocol Last Admin: 11/24/17 00:31 Dose: 5 ml/hr, 5 mls/hr Methylprednisolone Sodium Succinate (Solu-Medrol -) 40 mg IVPUSH Q8H-IV SAIMA Mupirocin (Bactroban Ointment (For Decolonization) -) 1 applic NS BID SAIMA Stop: 11/28/17 21:59 Last Admin: 11/24/17 10:07 Dose: 1 applic Oseltamivir Phosphate (Tamiflu -) 75 mg PO BID [facility] Stop: 11/29/17 11:59 Prednisone (Deltasone -) 40 mg PO DAILY SAIMA Stop: 11/27/17 10:00 Last Admin: 11/24/17 10:08 Dose: 40 mg ASSESSMENT AND PLAN: Acute on Chronic Hypoxic and Hypercapneic Respiratory Failure Influenza A Acute COPD Exacerbation LV Diastolic Dysfunction h/o PE h/o CVA DM CKD Anemia - tamiflu - continue empiric antibiotics - f/u cultures - change prednisone to IV medrol - inhaled bronchodilators standing and PRN - can change lasix gtt to BID dosing - monitor urine output, creatinine - transfuse PRBC - monitor H/H - O2 to keep SpO2 >90% - BiPAP if pt allows - monitor ABG - continue anticoagulation - continue ICU monitoring for tenuous respiratory status critical care time spent in reviewing chart, evaluating patient and formulating plan 35 min
[2017-11-24] MEDS ORDERED: FUROSEMIDE 40 MG/4 ML INJECTABLE VIAL IVPUSH ONE (13:15)
[2017-11-24] MEDS ORDERED: ALBUTEROL SO4 0.083% IH SOL 2.5 MG/3 ML VIAL.NEB. NEB PRN (13:22)
[2017-11-24] MEDS ORDERED: PATIENT'S OWN MEDICATION (NON-FORMULARY) (Cyclosporine [Restasis] 1 DROP) OU SCH (13:30)
[2017-11-24] MEDS ORDERED: CEFTRIAXONE IN IS-OSM DEXTROSE 2 GM/50 ML BAG IVPB ONE (13:30)
[2017-11-24] MEDS ORDERED: guaiFENesin/D-METHORPHAN HB 10 ML UNIT-DOSE CUPS PO SCH (13:30)
[2017-11-24 14:19] LABS: MAGNESIUM 1.4 mg/dL (1.8-2.4)
--- NOTE | 2017-11-24 14:20 | CON.ID ---
Consult Consult Specialty:: infectious diseases Referred by:: Reason for Consultation:: fever,influenza - History of Present Illness Chief Complaint: weakness,and passing out History of Present Illness: 67 y.o. female with a PMH of CHF, COPD PE, CVA , IDDM who was send from [facility] for respiratory distress. Patient states she has been feeling short of breath for 2 days and she initially increased her O2 from 3L to 4L with some relief however this morning she woke up and could not breath at all and patient mentions that next thing she knows that she was in the hospital currently patient is [place] she has refused bipap because she says that it makes her claustrophobic on work up patient was found to have inflenza a positive patient has been started on ceftriaxone and zithro - History Source History Provided By: Patient, Medical Record Limitations to Obtaining History: No Limitations - Past Medical History 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: 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 Cardio/Vascular: Yes: CHF (chronic diastolic), HTN, Hyperlipdemia Pulmonary: Yes: COPD, O2 Dependent, Pulmonary Embolus, Other (pulmonary HTN) - Alcohol/Substance Use Hx Alcohol Use: No - Smoking History Smoking history: Unknown if ever smoked Have you smoked in the past 12 months: No Aproximately how many cigarettes per day: 0 If you are a former smoker, when did you quit?: 1998 - Social History Usual Living Arrangement: Alone History of Recent Travel: No Home Medications - Allergies Allergies/Adverse Reactions: Allergies Allergy/AdvReac Type Severity Reaction Status Date / Time No Known Allergies Allergy Verified 11/23/17 08:55 - Home Medications Home Medications: Ambulatory Orders Cholecalciferol (Vitamin D3) [Vitamin D3] 2,000 unit PO DAILY #30 capsule Budesonide/Formeterol Fumarate [SYMBICORT 160/4.5mcg -] 1 inh PO BID #7 inhaler 11/26/15 Ferrous Sulfate [Feosol] 325 mg PO TID #30 ud 11/26/15 Nifedipine ER [Procardia XL -] 30 mg PO DAILY #30 tab.er.24 11/26/15 Rosuvastatin Calcium [Crestor] 10 mg PO HS #30 tablet 11/26/15 Tiotropium [place] [Spiriva] 1 inh PO DAILY #7 inh 11/26/15 Warfarin Na [Coumadin -] 2 mg PO HS 06/14/17 Albuterol 0.083% Nebulizer Claudia [Ventolin 0.083% Nebulizer Soln -] 1 amp NEB Q4H PRN amp 09/21/17 Benzocaine Ointment [Americaine Ointment -] 1 applic CA PRN PRN tube 09/21/17 Furosemide [Lasix -] 40 mg PO BID@0600,1400 tablet 09/21/17 Insulin Sliding Scale [Novolog Vial Sliding Scale -] 1 vial SQ ACHS units 09/21 Polyethylene Glycol 3350 [Miralax 119 gm Btl -] 17 gm PO DAILY bottle 09/21/17 Valsartan [Diovan] 160 mg PO DAILY tablet 09/21/17 Acetaminophen [Acetaminophen ER] 2 tab PO Q12H 11/23/17 Cyclosporine [Restasis] 1 drop OU BID 11/23/17 Guaifenesin Dm [Robitussin Dm -] 15 ml PO Q6H 11/23/17 Insulin Glargine,Hum.rec.anlog [Lantus] 2 unit SQ DAILY 11/23/17 Meclizine HCl [Antivert -] 12.5 mg PO BID PRN 11/23/17 Menthol [Bengay Ultra Strength] 1 each TP DAILY 11/23/17 Pantoprazole Sodium [Protonix] 40 mg PO DAILY 11/23/17 Prednisone 30 mg PO Q48H 11/23/17 Prednisone [Deltasone -] 25 mg PO Q48H 11/23/17 Sennosides [Senna -] 2 tab PO HS 11/23/17 Review of Systems - Review of Systems Constitutional: reports: No Symptoms Eyes: reports: No Symptoms HENT: reports: No Symptoms Neck: reports: No Symptoms Cardiovascular: reports: No Symptoms Respiratory: reports: Cough, SOB, SOB on Exertion Gastrointestinal: reports: No Symptoms Genitourinary: reports: No Symptoms Musculoskeletal: reports: No Symptoms Integumentary: reports: No Symptoms Neurological: reports: No Symptoms Endocrine: reports: No Symptoms Hematology/Lymphatic: reports: No Symptoms Psychiatric: reports: No Symptoms Physical Exam Vital Signs: Vital Signs Temperature 98.7 F 11/24/17 10:00 Pulse Rate 113 H 11/24/17 14:18 Respiratory Rate 16 11/24/17 12:00 Blood Pressure 147/64 11/24/17 12:00 O2 Sat by Pulse Oximetry (%) 96 11/24/17 14:18 Constitutional: Yes: Well Nourished, Calm, Mild Distress Eyes: Yes: Conjunctiva Clear Neck: Yes: Supple Cardiovascular: Yes: Regular Rate and Rhythm Respiratory: Yes: On Nasal O2, Poor Air Entry, Rhonchi, SOB, SOB on Exertion, Other Gastrointestinal: Yes: Normal Bowel Sounds, Soft Musculoskeletal: Yes: WNL Extremities: Yes: WNL Neurological: Yes: Alert, Oriented Psychiatric: Yes: Alert, Oriented Labs: CBC, BMP 11/24/17 05:20 11/24/17 05:20 Imaging - Results Chest X-ray: Report Reviewed, Image Reviewed Assessment/Plan this patient with multiple comorbid condition and with flu and positive xray findings Problem List - Problems (1) Influenza Code(s): J11.1 - FLU DUE TO UNIDENTIFIED INFLUENZA VIRUS W OTH RESP MANIFEST (2) Acute on chronic respiratory failure with hypoxia and hypercapnia Assessment/Plan: Code(s): J96.21 - ACUTE AND CHRONIC RESPIRATORY FAILURE WITH HYPOXIA; J96.22 - ACUTE AND CHRONIC RESPIRATORY FAILURE WITH HYPERCAPNIA (3) Anemia Code(s): D64.9 - ANEMIA, UNSPECIFIED Qualifiers: Anemia type: unspecified type Qualified Code(s): D64.9 - Anemia, unspecified (4) Chronic diastolic (congestive) heart failure Code(s): I50.32 - CHRONIC DIASTOLIC (CONGESTIVE) HEART FAILURE (5) Hypertension Code(s): I10 - ESSENTIAL (PRIMARY) HYPERTENSION (6) Pulmonary embolus Code(s): I26.99 - OTHER PULMONARY EMBOLISM WITHOUT ACUTE COR PULMONALE (7) Coronary artery disease Code(s): I25.10 - ATHSCL HEART DISEASE OF [place] CORONARY ARTERY W/O ANG PCTRS (8) detention current use of anticoagulant Code(s): Z79.01 - WEIGHER BULKER (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 OF 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 plan at the moment continue zithro might stop it tomorrow await for all results continue tamiflu if patient shows any signs of symptoms will start abx continue resp support close monitoring rest as per icu cc 45 min
[2017-11-24] MEDS ORDERED: guaiFENesin 200 MG/10 ML 10 ML UNIT-DOSE CUPS PO PRN (14:34)
[2017-11-24] MEDS: OSELTAMIVIR PHOSPHATE 75 MG CAPSULE PO SCH ×2 (15:00→21:26)
[2017-11-24] MEDS: NIFEdipine E.R. 30 MG TABLET (FP) PO SCH (15:00)
[2017-11-24] MEDS: methylPREDNISolone NA SUCC 40 MG/1 ML VIAL IVPUSH SCH ×2 (15:01→17:44)
[2017-11-24] MEDS: FERROUS SO4 325 MG TABLET (FP) PO SCH ×2 (15:01→21:26)
[2017-11-24] MEDS: VALSARTAN 160 MG TABLET (UD) PO SCH (15:01)
[2017-11-24] MEDS: POLYETHYLENE GLYCOL 3350 119 GM BTL PO SCH (17:40)
[2017-11-24] MEDS: PANTOPRAZOLE 40 MG TABLET (FP) PO SCH ×2 (17:40→18:35)
[2017-11-24] MEDS: BUDESONIDE/FORMETEROL FUMARATE 160/4.5 mcg INHALER IH SCH ×2 (17:41→21:27)
[2017-11-24] MEDS ORDERED: WARFARIN NA 2 MG TABLET (UD) PO SCH (18:00)
[2017-11-24] MEDS ORDERED: MAGNESIUM OXIDE 400 MG TABLET (FP) PO ONE (19:30)
[2017-11-24] MEDS: CHLORHEXIDINE GLUCONATE 4% CLEANSER FOR DECOLONIZATION TP SCH (21:29)
--- NOTE | 2017-11-24 21:54 | PN ---
Progress Note, Physician History of Present Illness: Pt still w/ SOB and is feeling very claustrophic being that she is in isolation for influenza - Current Medication List Current Medications: Active Medications Albuterol Sulfate (Ventolin 0.083% Nebulizer Soln -) 1 amp NEB Q4H PRN PRN Reason: SHORT OF BREATH/WHEEZING Last Admin: 11/24/17 14:00 Dose: 1 amp Budesonide/Formoterol Fumarate (Symbicort 160/4.5mcg -) 1 puff IH BID [facility] Last Admin: 11/24/17 21:27 Dose: 1 puff Chlorhexidine Gluconate (Hibiclens For Decolonization -) 1 applic TP HS [facility] Last Admin: 11/24/17 21:29 Dose: 1 applic Ferrous Sulfate (Feosol -) 325 mg PO TID [facility] Last Admin: 11/24/17 21:26 Dose: 325 mg Furosemide (Lasix -) 40 mg PO BID@0600,1400 [facility] Guaifenesin (Robitussin -) 10 ml PO Q6H PRN PRN Reason: COUGH Azithromycin 500 mg/ Dextrose 250 mls @ 250 mls/hr IVPB DAILY [facility] Stop: 11/27/17 11:00 Last Admin: 11/24/17 10:08 Dose: 250 mls/hr Methylprednisolone Sodium Succinate (Solu-Medrol -) 40 mg IVPUSH Q8H-IV [facility] Last Admin: 11/24/17 17:44 Dose: 40 mg Mupirocin (Bactroban Ointment (For Decolonization) -) 1 applic NS BID [facility] Stop: 11/28/17 21:59 Last Admin: 11/24/17 21:25 Dose: 1 applic Nifedipine (Procardia Xl -) 30 mg PO DAILY [facility] Last Admin: 11/24/17 15:00 Dose: 30 mg Oseltamivir Phosphate (Tamiflu -) 75 mg PO BID [facility] Stop: 11/29/17 11:59 Last Admin: 11/24/17 21:26 Dose: 75 mg Pantoprazole Sodium (Protonix -) 40 mg PO DAILY [facility] Last Admin: 11/24/17 18:35 Dose: 40 mg Polyethylene Glycol (Miralax (For Daily Use) -) 17 gm PO DAILY [facility] Last Admin: 11/24/17 17:40 Dose: 17 grams Rosuvastatin Calcium (Crestor -) 10 mg PO HS [facility] Last Admin: 11/24/17 21:28 Dose: 10 mg Senna (Senna -) 2 tab PO [facility] Last Admin: 11/24/17 21:26 Dose: 2 tab Tiotropium [place] (Spiriva -) 1 puff IH DAILY [facility] Valsartan (Diovan -) 160 mg PO DAILY [facility] Last Admin: 11/24/17 15:01 Dose: 160 mg Warfarin Sodium (Coumadin -) 2 mg PO DAILY@1800 [facility] Last Admin: 11/24/17 18:26 Dose: 2 mg - Objective Vital Signs: Vital Signs Temperature 99.2 F 11/24/17 18:35 Pulse Rate 98 H 11/24/17 20:00 Respiratory Rate 28 H 11/24/17 20:00 Blood Pressure 111/88 11/24/17 20:00 O2 Sat by Pulse Oximetry (%) 92 L 11/24/17 21:10 Constitutional: Yes: Well Nourished Neck: Yes: WNL, Supple Cardiovascular: Yes: WNL, Regular Rate and Rhythm Respiratory: Yes: Wheezes Gastrointestinal: Yes: WNL, Normal Bowel Sounds, Soft, Abdomen, Obese Edema: LLE: Trace, RLE: Trace Labs: CBC, BMP 11/24/17 05:20 11/24/17 05:20 INR, PTT INR 2.63 (0.82-1.09) H 11/24/17 05:20 Problem List - Problems (1) Influenza Assessment/Plan: Cont tamiflu Code(s): J11.1 - FLU DUE TO UNIDENTIFIED INFLUENZA VIRUS W OTH RESP MANIFEST (2) Acute on chronic respiratory failure with hypoxia and hypercapnia Assessment/Plan: Cont nebulizers/IV steroids As per pulmonary Cont IV zithro Code(s): J96.21 - ACUTE AND CHRONIC RESPIRATORY FAILURE WITH HYPOXIA; J96.22 - ACUTE AND CHRONIC RESPIRATORY FAILURE WITH HYPERCAPNIA (3) Anemia Assessment/Plan: S/P transfusion 2 units PRBC's Monitor H/H Code(s): D64.9 - ANEMIA, UNSPECIFIED Qualifiers: Anemia type: unspecified type Qualified Code(s): D64.9 - Anemia, unspecified (4) Chronic diastolic (congestive) heart failure Assessment/Plan: Cont lasix Code(s): I50.32 - CHRONIC DIASTOLIC (CONGESTIVE) HEART FAILURE (5) Hypertension Assessment/Plan: BP stable Code(s): I10 - ESSENTIAL (PRIMARY) HYPERTENSION (6) Pulmonary embolus Assessment/Plan: Cont coumadin Monitor PT/INR Code(s): I26.99 - OTHER PULMONARY EMBOLISM WITHOUT ACUTE COR PULMONALE (7) Coronary artery disease Code(s): I25.10 - ATHSCL HEART DISEASE OF [place] CORONARY ARTERY W/O ANG PCTRS (8) longterm current use of anticoagulant Assessment/Plan: On coumadin for PE Monitor pt/inr Code(s): Z79.01 - GROUNDS CLEANER (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 OF 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 (9) Morbid obesity Code(s): E66.01 - MORBID (SEVERE) OBESITY DUE TO EXCESS CALORIES
[2017-11-24] MEDS ORDERED: ROSUVASTATIN CA 10 MG TABLET (FP) PO SCH (22:00)
[2017-11-24] MEDS ORDERED: SENNOSIDES 8.6MG TABLET (FP) PO SCH (22:00)
[2017-11-24 23:10] LABS: BASO % 0.6 % (0-2.0); EOS % 0.1 % (0-4.5); HEMATOCRIT 31.9 % (32.4-45.2); HEMOGLOBIN 9.8 GM/dL (10.7-15.3); MCH 25.2 pg (25.7-33.7); MCHC 30.7 g/dl (32.0-36.0); MEAN CELL VOLUME 82.2 fl (80-96); MEAN PLT VOLUME 8.7 fl (7.5-11.1); MONO % 5.1 % (3.8-10.2); NEUT % 86.2 % (42.8-82.8); PLATELET COUNT 163 K/MM3 (134-434); RBC 3.88 M/mm3 (3.60-5.2); RDW 15.8 % (11.6-15.6); WHITE BLOOD COUNT 9.7 K/mm3 (4.0-10.0)
[2017-11-25] MEDS: methylPREDNISolone NA SUCC 40 MG/1 ML VIAL IVPUSH SCH ×3 (01:11→17:38)
[2017-11-25] MEDS: ALBUTEROL SO4 0.083% IH SOL 2.5 MG/3 ML VIAL.NEB. NEB PRN ×4 (04:00→20:30)
[2017-11-25] MEDS: FERROUS SO4 325 MG TABLET (FP) PO SCH ×2 (05:41→17:25)
[2017-11-25 05:45] LABS: BASO % 0.5 % (0-2.0); HEMATOCRIT 34.7 % (32.4-45.2); HEMOGLOBIN 10.5 GM/dL (10.7-15.3); LYMPH % 13.4 % (8-40); MCH 25.2 pg (25.7-33.7); MCHC 30.2 g/dl (32.0-36.0); MEAN CELL VOLUME 83.3 fl (80-96); MEAN PLT VOLUME 8.7 fl (7.5-11.1); MONO % 5.5 % (3.8-10.2); NEUT % 80.6 % (42.8-82.8); PLATELET COUNT 182 K/MM3 (134-434); RBC 4.16 M/mm3 (3.60-5.2); RDW 15.6 % (11.6-15.6); WHITE BLOOD COUNT 9.8 K/mm3 (4.0-10.0)
[2017-11-25] MEDS ORDERED: PT OWN MED DRAWER 7, Y5N ONE ×3 (05:47→21:15)
[2017-11-25] MEDS ORDERED: FUROSEMIDE 40 MG TABLET (FP) PO SCH ×2 (06:00→14:00)
[2017-11-25 06:04] LABS: INR 2.75 (0.82-1.09); PROTHROMBIN TIME (PATIENT) 31.1 SEC (9.98-11.88)
[2017-11-25 06:05] LABS: ALBUMIN 3.4 g/dl (3.4-5.0); ANION GAP 5 (8-16); BLOOD UREA NITROGEN 22 mg/dL (7-18); CALCIUM 8.8 mg/dL (8.5-10.1); CHLORIDE 92 mmol/L (98-107); CO2 44 mmol/L (21-32); CREATININE 1.3 mg/dL (0.55-1.02); GLUCOSE,RANDOM 173 mg/dL (74-106); MAGNESIUM 1.6 mg/dL (1.8-2.4); PHOSPHOROUS 3.5 mg/dL (2.5-4.9); POTASSIUM 3.9 mmol/L (3.5-5.1); SGOT/AST 36 U/L (15-37); SGPT/ALT 40 U/L (12-78); SODIUM 141 mmol/L (136-145)
[2017-11-25 06:07] LABS: ALK PHOS 59 U/L (45-117); BILIRUBIN,TOTAL 0.5 mg/dL (0.2-1.0); TOT PROT 6.5 g/dl (6.4-8.2)
[2017-11-25 07:14] LABS: ARTERIAL BLD GAS O2 SATURATION 91.1 % (90-98.9); ARTERIAL BLOOD GAS BASE EXCESS 14.3 meq/l (-2-2); ARTERIAL BLOOD GAS PO2 63.1 mmHg (80-100); ARTERIAL BLOOD GAS pH 7.36 (7.35-7.45)
[2017-11-25 07:21] LABS: ALLENS TEST POSITIVE
--- NOTE | 2017-11-25 08:05 | EKG ---
Test Reason : Blood Pressure : / mmHG Vent. Rate : 109 BPM Atrial Rate : 109 BPM P-R Int : 138 ms QRS Dur : 076 ms QT Int : 342 ms P-R-T Axes : 074 000 048 degrees QTc Int : 460 ms SINUS TACHYCARDIA LOW VOLTAGE QRS CANNOT RULE OUT ANTERIOR INFARCT , AGE UNDETERMINED ABNORMAL ECG WHEN COMPARED WITH ECG OF 21-AUG-2017 20:11, NO SIGNIFICANT CHANGE WAS FOUND Confirmed by MARTHA ADAMS, YANIQUE ([id number]) on 11/25/2017 8:04:47 AM Referred By: Confirmed By:YANIQUE THOMAS MD
[2017-11-25] MEDS ORDERED: MAGNESIUM SULF 50% (8.12 MEQ/2 ML-1 GM VIAL) IVPB ONE (08:07)
--- NOTE | 2017-11-25 08:07 | EKG ---
Test Reason : Blood Pressure : / mmHG Vent. Rate : 132 BPM Atrial Rate : 375 BPM P-R Int : 000 ms QRS Dur : 072 ms QT Int : 286 ms P-R-T Axes : 000 -26 089 degrees QTc Int : 423 ms POOR DATA QUALITY, INTERPRETATION MAY BE ADVERSELY AFFECTED SINUS TACHYCARDIA LOW VOLTAGE QRS CANNOT RULE OUT ANTEROSEPTAL INFARCT , AGE UNDETERMINED ABNORMAL ECG Confirmed by MARTHA ADAMS, YANIQEU ([id number]) on 11/25/2017 8:07:05 AM Referred By: Confirmed By:YANIQUE THOMAS MD
--- NOTE | 2017-11-25 08:17 | PN ---
Physical Exam: SUBJECTIVE: Patient seen and examined. Sitting up in bed having breakfast. Still SOB. Did not use Bipap overnight due to her claustrophobia. Requesting removal of her alarcon, so she can ambulate, she says. Patient said she used to be on low sodium diet, but now on cholesterol free diet. Otherwise still on 4L- NC. H&H stable post transfusion OBJECTIVE: Vital Signs Period Temp Pulse Resp BP Sys/Nielsen Pulse Ox Last 24 Hr 98.2 F-99.7 F 82-113 16-28 111-159/53-90 92-100 Vital Signs Temp 98.4 F 11/25/17 06:00 Pulse 95 H 11/25/17 06:00 Resp 22 11/25/17 06:00 BP 147/83 11/25/17 06:00 Pulse Ox 92 L 11/24/17 21:10 Intake & Output 11/22/17 11/23/17 11/24/17 11/25/17 23:59 23:59 23:59 23:59 Intake Total 2260 850 Output Total 1700 1700 1100 Balance -1700 560 -250 Weight 127.006 kg 131.088 kg 124.313 kg GENERAL: The patient is obese, awake, alert, NC- 4L. HEAD: Normal with no signs of trauma. EYES: PERRL, extraocular movements intact, ENT: NC- 4L, oropharynx clear without exudates, moist mucous membranes. NECK: supple, No JVP. LUNGS: wheezes > anterior lung, fewer scattered creps bilaterally, reduced breath sounds posteriorly (lung bases bilaterally) HEART: tachycardic, S1, S2 . ABDOMEN: Soft, obese, nontender, nondistended, normoactive bowel sounds, EXTREMITIES: 2+ pulses, warm, well-perfused, mild bilateral pedal edema. NEUROLOGICAL: AAOx3,communicating, moving all limbs. Normal speech, gait not observed. PSYCH: Normal mood, normal affect. Lines: NC, alarcon, RUE and LUE peripheral lines ABG Results ABG pH 7.36 (7.35-7.45) 11/25/17 06:20 ABG pCO2 at Pt Temp 76.0 mmHg (35-45) H* 11/25/17 06:20 ABG pO2 at Pt Temp 63.1 mmHg (80-100) L 11/25/17 06:20 ABG HCO3 42.0 meq/L (22-26) H* 11/25/17 06:20 ABG O2 Sat (Measured) 91.1 % (90-98.9) 11/25/17 06:20 ABG O2 Content 12.5 % vol (15-22) L 11/25/17 06:20 ABG Base Excess 14.3 meq/l (-2-2) H 11/25/17 06:20 CBC, BMP 11/25/17 05:20 11/25/17 05:20 Laboratory Results - last 24 hr 11/24/17 11/24/17 11/24/17 05:20 05:30 07:55 WBC RBC Hgb Hct MCV MCH MCHC RDW Plt Count MPV Neutrophils % Lymphocytes % Monocytes % Eosinophils % Basophils % PT with INR INR Puncture Site ABG pH ABG pCO2 at Pt Temp ABG pO2 at Pt Temp ABG HCO3 ABG O2 Sat (Measured) ABG O2 Content ABG Base Excess Willy Test O2 Delivery Device Oxygen Flow Rate Sodium 145 Potassium 3.6 Chloride 96 L Carbon Dioxide 43 H Anion Gap 6 L BUN 22 H Creatinine 1.2 H Creat Clearance w eGFR 44.54 Random Glucose 109 H Calcium 8.3 L Phosphorus 4.0 Cancelled Magnesium 1.4 L Cancelled Total Bilirubin 0.3 D AST 32 ALT 34 Alkaline Phosphatase 53 Total Protein 5.7 L Albumin 3.0 L Blood Type O POSITIVE Antibody Screen Negative Crossmatch See Detail 11/24/17 11/24/17 11/25/17 08:00 22:30 05:20 WBC 9.7 9.8 RBC 3.88 D 4.16 Hgb 9.8 L D 10.5 L Hct 31.9 L D 34.7 MCV 82.2 83.3 MCH 25.2 L 25.2 L MCHC 30.7 L 30.2 L RDW 15.8 H 15.6 Plt Count 163 182 MPV 8.7 8.7 Neutrophils % 86.2 H 80.6 Lymphocytes % 8.0 D 13.4 D Monocytes % 5.1 5.5 Eosinophils % 0.1 0.0 D Basophils % 0.6 0.5 PT with INR INR Puncture Site Right radial ABG pH 7.34 L ABG pCO2 at Pt Temp 82.0 H* ABG pO2 at Pt Temp 62.8 L ABG HCO3 42.7 H* ABG O2 Sat (Measured) 90.4 ABG O2 Content 8.8 L* ABG Base Excess 15.5 H* Willy Test Positive O2 Delivery Device N/c Oxygen Flow Rate 4l Sodium Potassium Chloride Carbon Dioxide Anion Gap BUN Creatinine Creat Clearance w eGFR Random Glucose Calcium Phosphorus Magnesium Total Bilirubin AST ALT Alkaline Phosphatase Total Protein Albumin Blood Type Antibody Screen Crossmatch 11/25/17 11/25/17 11/25/17 05:20 05:20 06:20 WBC RBC Hgb Hct MCV MCH MCHC RDW Plt Count MPV Neutrophils % Lymphocytes % Monocytes % Eosinophils % Basophils % PT with INR 31.10 H INR 2.75 H Puncture Site Right radial ABG pH 7.36 ABG pCO2 at Pt Temp 76.0 H* ABG pO2 at Pt Temp 63.1 L ABG HCO3 42.0 H* ABG O2 Sat (Measured) 91.1 ABG O2 Content 12.5 L ABG Base Excess 14.3 H Willy Test Positive O2 Delivery Device N/c Oxygen Flow Rate 4lpm Sodium 141 Potassium 3.9 Chloride 92 L Carbon Dioxide 44 H Anion Gap 5 L BUN 22 H Creatinine 1.3 H Creat Clearance w eGFR 40.61 Random Glucose 173 H Calcium 8.8 Phosphorus 3.5 Magnesium 1.6 L Total Bilirubin 0.5 D AST 36 ALT 40 Alkaline Phosphatase 59 Total Protein 6.5 Albumin 3.4 Blood Type Antibody Screen Crossmatch CXR: New infiltrates lung bases Active Medications Generic Name Dose Route Start Last Admin Trade Name Freq PRN Reason Stop Dose Admin Albuterol Sulfate 1 amp 11/23/17 22:05 11/25/17 04:00 Ventolin 0.083% Nebulizer Soln - NEB 1 amp Q4H PRN Administration SHORT OF BREATH/WHEEZING Budesonide/Formoterol Fumarate 1 puff 11/24/17 13:30 11/24/17 21:27 Symbicort 160/4.5mcg - IH 1 puff BID SAIMA Administration Chlorhexidine Gluconate 1 applic 11/23/17 22:00 11/24/17 21:29 Hibiclens For Decolonization - TP 1 applic HS [facility]A Administration Ferrous Sulfate 325 mg 11/24/17 14:00 11/25/17 05:41 Feosol - PO 325 mg TID [facility]IMA Administration Furosemide 40 mg 11/25/17 06:00 11/25/17 05:41 Lasix - PO 40 mg BID@0600,1400 [facility] Administration Guaifenesin 10 ml 11/24/17 14:34 Robitussin - PO Q6H PRN COUGH Azithromycin 500 mg/ Dextrose 250 mls @ 250 mls/hr 11/24/17 10:00 11/24/17 10 :08 IVPB 11/27/17 11:00 250 mls/hr DAILY [facility] Administration Methylprednisolone Sodium Succinate 40 mg 11/24/17 12:15 11/25/17 01:11 Solu-Medrol - IVPUSH 40 mg Q8H-IV [facility] Administration Mupirocin 1 applic 11/23/17 22:00 11/24/17 21:25 Bactroban Ointment (For Decolonization) - NS 11/28/17 21:59 1 applic BID [facility] Administration Nifedipine 30 mg 11/24/17 13:30 11/24/17 15:00 Procardia Xl - PO 30 mg DAILY [facility] Administration Oseltamivir Phosphate 75 mg 11/24/17 12:00 11/24/17 21:26 Tamiflu - PO 11/29/17 11:59 75 mg BID [facility] Administration Pantoprazole Sodium 40 mg 11/24/17 13:30 11/24/17 18:35 Protonix - PO 40 mg DAILY [facility] Administration Polyethylene Glycol 17 gm 11/24/17 13:30 11/24/17 17:40 Miralax (For Daily Use) - PO 17 grams DAILY [facility] Administration Rosuvastatin Calcium 10 mg 11/24/17 22:00 11/24/17 21:28 Crestor - PO 10 mg HS [facility] Administration Senna 2 tab 11/24/17 22:00 11/24/17 21:26 Senna - PO 2 tab HS [facility] Administration Tiotropium [place] 1 puff 11/25/17 10:00 Spiriva - IH DAILY [facility] Valsartan 160 mg 11/24/17 13:30 11/24/17 15:01 Diovan - PO 160 mg DAILY [facility] Administration Warfarin Sodium 2 mg 11/24/17 18:00 11/24/17 18:26 Coumadin - PO 2 mg DAILY@1800 [facility] Administration ASSESSMENT/PLAN: 67 yo F with a PMHx of HTN, PHTN, IDDM, CHF, COPD (on 3 L NC) PE, CVA (w/ residual L sided visual loss), IDDM from [facility] admitted to ICU for acute respiratory failure, found to be flu positive and on 4L-NC. Pulm: Acute on Chronic Hypoxic and Hypercapneic Respiratory Failure Likely secondary to Acute COPD Exacerbation with Influenza A Continue Nasal cannular, for BIPAP as needed /tolerated goal SpO2 >90% Continue iv solumedrol 60mg Q8H Continue nebs Dr Brewer to reevaluate need for azithromycin Per Dr Brewer- stop ceftriaxone Continue Tamiflu @75 bid ABG CXR Cardio: Hx of CHF Hx of CVA, HTN, PHTN Bilateral increased lung markings/basilar atelectasis on admission CXR: New infiltrates lung bases- 11/25/17 Change home oral lasix 40mg bid back to iv lasix 40mg bid Cont home coumadin 2mg daily Cont home valsartan Cont Nifedipine ER [Procardia XL -] 30 mg PO DAILY D/W Dr Estrada- More likely influenza related symptomatology, to continue home cardiac medications If noted to be fluid overloaded-plan is to give iv lasix Hemonc: Chronic anemia Hx of PE s/p 2u prbcs yesterday CBC-10.5 thia am CBC Endo: IDDM BGMs ACHS ISS ACHS Renal/Lines: AMAURY R/O CKD Cr-1.3 Daily weights Ins and Outs BMP Lines: NC, alarcon, RUE and LUE peripheral lines d/c alarcon GI: change to low sodium diet Prophylaxis: On coumadin 2mg daily On home protonix 40mg PO Dispo: Transfer to tele- [facility] for droplets Visit type - Emergency Visit Emergency Visit: Yes ED Registration Date: 11/23/17 Care time: The patient presented to the Emergency Department on the above date and was hospitalized for further evaluation of their emergent condition. - New Patient This patient is new to me today: No - Critical Care Critical Care patient: Yes Total Critical Care Time (in minutes): 35 Critical Care Statement: The care of this patient involved high complexity decision making to prevent further life threatening deterioration of the patient 's condition and/or to evaluate & treat vital organ system(s) failure or risk of failure. - Discharge Referral Referred to [facility] Med [facility] No
[2017-11-25] MEDS: AZITHROMYCIN IVPB 500 MG in DEXTROSE 5%-WATER - 250 ML IVPB SCH (09:47)
[2017-11-25] MEDS: VALSARTAN 160 MG TABLET (UD) PO SCH (09:47)
[2017-11-25] MEDS: MUPIROCIN 2% TOPICAL OINTMENT FOR DECOLONIZATION NS SCH (09:47)
[2017-11-25] MEDS: PANTOPRAZOLE 40 MG TABLET (FP) PO SCH (09:47)
[2017-11-25] MEDS: NIFEdipine E.R. 30 MG TABLET (FP) PO SCH (09:48)
[2017-11-25] MEDS: OSELTAMIVIR PHOSPHATE 75 MG CAPSULE PO SCH ×2 (09:48→21:16)
[2017-11-25] MEDS: POLYETHYLENE GLYCOL 3350 119 GM BTL PO SCH (09:51)
[2017-11-25] MEDS ORDERED: MAGNESIUM SULF 50% (8.12 MEQ/2 ML-1 GM VIAL) ONE (09:54)
[2017-11-25] MEDS: BUDESONIDE/FORMETEROL FUMARATE 160/4.5 mcg INHALER IH SCH ×2 (09:58→21:17)
[2017-11-25] MEDS ORDERED: MAGNESIUM SULFATE IN WATER 2 GM/50 ML IVPB IVPB ONE (10:00)
[2017-11-25] MEDS ORDERED: TIOTROPIUM BROMIDE 18 MCG/INH (DEVICE W/ 5 CAPSULES) IH SCH (10:00)
--- NOTE | 2017-11-25 11:35 | PN ---
Teaching Attending Note Name of Resident: Kay Obregon ATTENDING PHYSICIAN STATEMENT I saw and evaluated the patient. I reviewed the resident's note and discussed the case with the resident. I agree with the resident's findings and plan as documented. SUBJECTIVE: Pt seen and examined in the ICU. States breathing is slightly improved. Refusing BiPAP. +cough and wheezing but no further fevers. OBJECTIVE: Last Vital Signs Temp Pulse Resp BP Pulse Ox 98.4 F 88 20 146/65 98 11/25/17 06:00 11/25/17 11:32 11/25/17 10:00 11/25/17 10:00 11/25/17 11:32 Intake & Output 11/22/17 11/23/17 11/24/17 11/25/17 23:59 23:59 23:59 23:59 Intake Total 2260 850 Output Total 1700 1700 1100 Balance -1700 560 -250 Weight 127.006 kg 131.088 kg 124.313 kg Gen: tachypneic with speaking Heart: RRR Lung: bilateral rhonchi, wheezes Abd: soft, nontender Ext: trace edema CBC, BMP 11/25/17 05:20 11/25/17 05:20 Active Medications Albuterol Sulfate (Ventolin 0.083% Nebulizer Soln -) 1 amp NEB Q4H PRN PRN Reason: SHORT OF BREATH/WHEEZING Last Admin: 11/25/17 11:32 Dose: 1 amp Budesonide/Formoterol Fumarate (Symbicort 160/4.5mcg -) 1 puff IH BID [facility] Ferrous Sulfate (Feosol -) 325 mg PO TID [facility] Furosemide (Lasix Injection -) 40 mg IVPUSH BID@0600,1400 [facility] Guaifenesin (Robitussin -) 10 ml PO Q6H PRN PRN Reason: COUGH Azithromycin 500 mg/ Dextrose 250 mls @ 250 mls/hr IVPB DAILY [facility] Stop: 11/27/17 11:00 Methylprednisolone Sodium Succinate (Solu-Medrol -) 40 mg IVPUSH Q8H-IV [facility] Nifedipine (Procardia Xl -) 30 mg PO DAILY [facility] Oseltamivir Phosphate (Tamiflu -) 75 mg PO BID [facility] Stop: 11/29/17 11:59 Pantoprazole Sodium (Protonix -) 40 mg PO DAILY [facility] Polyethylene Glycol (Miralax (For Daily Use) -) 17 gm PO DAILY [facility] Rosuvastatin Calcium (Crestor -) 10 mg PO HS [facility] Senna (Senna -) 2 tab PO HS [facility] Tiotropium [place] (Spiriva -) 1 puff IH DAILY [facility] Valsartan (Diovan -) 160 mg PO DAILY [facility] Warfarin Sodium (Coumadin -) 2 mg PO DAILY@1800 [facility] ASSESSMENT AND PLAN: Acute on Chronic Hypoxic and Hypercapneic Respiratory Failure Influenza A Acute COPD Exacerbation LV Diastolic Dysfunction h/o PE h/o CVA DM CKD Anemia - continue tamiflu - continue empiric antibiotics - f/u cultures - continue medrol at current dose - inhaled bronchodilators standing and PRN - continue IV lasix - monitor urine output, creatinine - monitor H/H - transfuse as needed - O2 to keep SpO2 >90% - BiPAP if pt allows - continue anticoagulation - will transfer to telemetry as pt on droplet precautions with positive influenz A and refuses to have door closed critical care time spent in reviewing chart, evaluating patient and formulating plan 35 min
[2017-11-25] MEDS ORDERED: FUROSEMIDE 40 MG/4 ML INJECTABLE VIAL IVPUSH SCH (14:00)
[2017-11-25] MEDS: FUROSEMIDE 40 MG/4 ML INJECTABLE VIAL IVPUSH SCH (14:00)
--- NOTE | 2017-11-25 16:15 | PN ---
Progress Note, Physician History of Present Illness: still with sob says slightly better - Current Medication List Current Medications: Active Medications Albuterol Sulfate (Ventolin 0.083% Nebulizer Soln -) 1 amp NEB Q4H PRN PRN Reason: SHORT OF BREATH/WHEEZING Last Admin: 11/25/17 11:32 Dose: 1 amp Budesonide/Formoterol Fumarate (Symbicort 160/4.5mcg -) 1 puff IH BID [facility] Ferrous Sulfate (Feosol -) 325 mg PO TIDCM [facility] Furosemide (Lasix Injection -) 40 mg IVPUSH BID@0600,1400 [facility] Guaifenesin (Robitussin -) 10 ml PO Q6H PRN PRN Reason: COUGH Azithromycin 500 mg/ Dextrose 250 mls @ 250 mls/hr IVPB DAILY [facility] Stop: 11/27/17 11:00 Methylprednisolone Sodium Succinate (Solu-Medrol -) 40 mg IVPUSH Q8H-IV [facility] Nifedipine (Procardia Xl -) 30 mg PO DAILY [facility] Oseltamivir Phosphate (Tamiflu -) 75 mg PO BID [facility] Stop: 11/29/17 11:59 Pantoprazole Sodium (Protonix -) 40 mg PO DAILY [facility] Polyethylene Glycol (Miralax (For Daily Use) -) 17 gm PO DAILY [facility] Rosuvastatin Calcium (Crestor -) 10 mg PO HS [facility] Senna (Senna -) 2 tab PO HS [facility] Tiotropium [place] (Spiriva -) 1 puff IH DAILY [facility] Valsartan (Diovan -) 160 mg PO DAILY [facility] Warfarin Sodium (Coumadin -) 2 mg PO DAILY@1800 [facility] - Objective Vital Signs: Vital Signs Temperature 98.6 F 11/25/17 14:00 Pulse Rate 113 H 11/25/17 14:00 Respiratory Rate 19 11/25/17 14:00 Blood Pressure 154/83 11/25/17 14:00 O2 Sat by Pulse Oximetry (%) 99 11/25/17 16:04 Constitutional: Yes: Calm, Mild Distress Cardiovascular: Yes: S1, S2 Respiratory: Yes: On Nasal O2, Poor Air Entry, Other Gastrointestinal: Yes: Normal Bowel Sounds, Soft Genitourinary: Yes: Smith Present Musculoskeletal: Yes: WNL Extremities: Yes: WNL Neurological: Yes: Other Psychiatric: Yes: Other Labs: CBC, BMP 11/25/17 05:20 11/25/17 05:20 INR, PTT INR 2.75 (0.82-1.09) H 11/25/17 05:20 - ....Imaging Chest X-ray: Report Reviewed, Image Reviewed Assessment/Plan this patient with multiple comorbid condition and with flu and positive xray findings Problem List - Problems (1) Influenza Code(s): J11.1 - FLU DUE TO UNIDENTIFIED INFLUENZA VIRUS W OTH RESP MANIFEST (2) Acute on chronic respiratory failure with hypoxia and hypercapnia Assessment/Plan: Code(s): J96.21 - ACUTE AND CHRONIC RESPIRATORY FAILURE WITH HYPOXIA; J96.22 - ACUTE AND CHRONIC RESPIRATORY FAILURE WITH HYPERCAPNIA (3) Anemia Code(s): D64.9 - ANEMIA, UNSPECIFIED Qualifiers: Anemia type: unspecified type Qualified Code(s): D64.9 - Anemia, unspecified (4) Chronic diastolic (congestive) heart failure Code(s): I50.32 - CHRONIC DIASTOLIC (CONGESTIVE) HEART FAILURE (5) Hypertension Code(s): I10 - ESSENTIAL (PRIMARY) HYPERTENSION (6) Pulmonary embolus Code(s): I26.99 - OTHER PULMONARY EMBOLISM WITHOUT ACUTE COR PULMONALE (7) Coronary artery disease Code(s): I25.10 - ATHSCL HEART DISEASE OF [place] CORONARY ARTERY W/O ANG PCTRS (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
[2017-11-25] MEDS: CEFTRIAXONE 1 G/50 ML PREMIX 50 ML IVPB SCH (17:31)
[2017-11-25] MEDS ORDERED: WARFARIN NA 2 MG TABLET (UD) PO SCH ×2 (18:00)
--- NOTE | 2017-11-25 21:01 | PN ---
Progress Note, Physician - Current Medication List Current Medications: Active Medications Albuterol Sulfate (Ventolin 0.083% Nebulizer Soln -) 1 amp NEB Q4H PRN PRN Reason: SHORT OF BREATH/WHEEZING Last Admin: 11/25/17 16:00 Dose: 1 amp Budesonide/Formoterol Fumarate (Symbicort 160/4.5mcg -) 1 puff IH BID [facility] Ferrous Sulfate (Feosol -) 325 mg PO TIDCM [facility] Last Admin: 11/25/17 17:25 Dose: 325 mg Furosemide (Lasix Injection -) 40 mg IVPUSH BID@0600,1400 [facility] Last Admin: 11/25/17 14:00 Dose: 40 mg Guaifenesin (Robitussin -) 10 ml PO Q6H PRN PRN Reason: COUGH Azithromycin 500 mg/ Dextrose 250 mls @ 250 mls/hr IVPB DAILY [facility] Stop: 11/27/17 11:00 CEFTRIAXONE 1 G/50 ML PREMIX (Ceftriaxone 1 Gm-D5w Bag) 50 mls @ 100 mls/hr IVPB DAILY [facility] Last Admin: 11/25/17 17:31 Dose: 100 mls/hr Methylprednisolone Sodium Succinate (Solu-Medrol -) 40 mg IVPUSH Q8H-IV [facility] Last Admin: 11/25/17 17:38 Dose: 40 mg Nifedipine (Procardia Xl -) 30 mg PO DAILY [facility] Oseltamivir Phosphate (Tamiflu -) 75 mg PO BID [facility] Stop: 11/29/17 11:59 Pantoprazole Sodium (Protonix -) 40 mg PO DAILY [facility] Polyethylene Glycol (Miralax (For Daily Use) -) 17 gm PO DAILY [facility] Rosuvastatin Calcium (Crestor -) 10 mg PO HS [facility] Senna (Senna -) 2 tab PO HS [facility] Tiotropium [place] (Spiriva -) 1 puff IH DAILY [facility] Valsartan (Diovan -) 160 mg PO DAILY [facility] Warfarin Sodium (Coumadin -) 2 mg PO DAILY@1800 [facility] Last Admin: 11/25/17 17:24 Dose: 2 mg - Objective Vital Signs: Vital Signs Temperature 98.6 F 11/25/17 14:00 Pulse Rate 112 H 11/25/17 18:00 Respiratory Rate 25 H 11/25/17 18:00 Blood Pressure 166/77 11/25/17 18:00 O2 Sat by Pulse Oximetry (%) 99 01/31/18 16:04 Constitutional: Yes: Well Nourished, Obese HENT: Yes: WNL Neck: Yes: WNL, Supple Cardiovascular: Yes: WNL, Regular Rate and Rhythm Respiratory: Yes: Diminished Gastrointestinal: Yes: WNL, Normal Bowel Sounds, Soft, Abdomen, Obese Edema: No Labs: CBC, BMP 11/25/17 05:20 11/25/17 05:20 INR, PTT INR 2.75 (0.82-1.09) H 11/25/17 05:20 Problem List - Problems (1) Influenza Assessment/Plan: Cont tamiflu Code(s): J11.1 - FLU DUE TO UNIDENTIFIED INFLUENZA VIRUS W OTH RESP MANIFEST (2) Acute on chronic respiratory failure with hypoxia and hypercapnia Assessment/Plan: Cont nebulizers/IV steroids Cont IV zithro/ceftriaxone Code(s): J96.21 - ACUTE AND CHRONIC RESPIRATORY FAILURE WITH HYPOXIA; J96.22 - ACUTE AND CHRONIC RESPIRATORY FAILURE WITH HYPERCAPNIA (3) Anemia Assessment/Plan: S/P transfusion 2 units PRBC's Monitor H/H Cont feosol Code(s): D64.9 - ANEMIA, UNSPECIFIED Qualifiers: Anemia type: unspecified type Qualified Code(s): D64.9 - Anemia, unspecified (4) Chronic diastolic (congestive) heart failure Assessment/Plan: Cont IV lasix Monitor electrolytes Code(s): I50.32 - CHRONIC DIASTOLIC (CONGESTIVE) HEART FAILURE (5) History of pulmonary embolism Assessment/Plan: Cont coumadin monitor pt/inr Code(s): Z86.711 - PERSONAL HISTORY OF PULMONARY EMBOLISM (6) Hypertension Assessment/Plan: BP stable Cont diovan/procardia Code(s): I10 - ESSENTIAL (PRIMARY) HYPERTENSION (7) CKD (chronic kidney disease) Code(s): N18.9 - CHRONIC KIDNEY DISEASE, UNSPECIFIED (8) HLD (hyperlipidemia) Assessment/Plan: Cont crestor Code(s): E78.5 - HYPERLIPIDEMIA, UNSPECIFIED (9) GERD (gastroesophageal reflux disease) Assessment/Plan: Cont protonix Code(s): K21.9 - GASTRO-ESOPHAGEAL REFLUX DISEASE WITHOUT ESOPHAGITIS (10) Diabetes Assessment/Plan: Cont sliding scale Pt has a h/o steroid induced diabetes Code(s): E11.9 - TYPE 2 DIABETES MELLITUS WITHOUT COMPLICATIONS (11) Morbid obesity Code(s): E66.01 - MORBID (SEVERE) OBESITY DUE TO EXCESS CALORIES
[2017-11-25] MEDS: SENNOSIDES 8.6MG TABLET (FP) PO SCH (21:16)
[2017-11-25] MEDS: ROSUVASTATIN CA 10 MG TABLET (FP) PO SCH (21:16)
[2017-11-26] MEDS: methylPREDNISolone NA SUCC 40 MG/1 ML VIAL IVPUSH SCH ×3 (01:47→17:53)
[2017-11-26] MEDS: FUROSEMIDE 40 MG/4 ML INJECTABLE VIAL IVPUSH SCH ×2 (06:17→14:14)
[2017-11-26 06:25] LABS: BASO % 0.1 % (0-2.0); HEMATOCRIT 33.2 % (32.4-45.2); LYMPH % 7.5 % (8-40); MCHC 30.3 g/dl (32.0-36.0); MEAN CELL VOLUME 82.6 fl (80-96); MEAN PLT VOLUME 8.6 fl (7.5-11.1); NEUT % 86.4 % (42.8-82.8); PLATELET COUNT 174 K/MM3 (134-434); RBC 4.02 M/mm3 (3.60-5.2); RDW 15.8 % (11.6-15.6); WHITE BLOOD COUNT 11.5 K/mm3 (4.0-10.0)
[2017-11-26 06:40] LABS: INR 3.69 (0.82-1.09); PROTHROMBIN TIME (PATIENT) 41.7 SEC (9.98-11.88)
[2017-11-26 07:49] LABS: ALBUMIN 3.4 g/dl (3.4-5.0); BLOOD UREA NITROGEN 23 mg/dL (7-18); CALCIUM 8.5 mg/dL (8.5-10.1); CHLORIDE 92 mmol/L (98-107); CREATININE 1.3 mg/dL (0.55-1.02); GLUCOSE,RANDOM 169 mg/dL (74-106); MAGNESIUM 1.9 mg/dL (1.8-2.4); PHOSPHOROUS 2.7 mg/dL (2.5-4.9); POTASSIUM 3.7 mmol/L (3.5-5.1); SGOT/AST 32 U/L (15-37); SGPT/ALT 38 U/L (12-78); SODIUM 142 mmol/L (136-145)
[2017-11-26 07:51] LABS: ALK PHOS 55 U/L (45-117); BILIRUBIN,TOTAL 0.6 mg/dL (0.2-1.0)
[2017-11-26] MEDS: ALBUTEROL SO4 0.083% IH SOL 2.5 MG/3 ML VIAL.NEB. NEB PRN ×3 (08:15→16:29)
--- NOTE | 2017-11-26 08:24 | PN ---
Physical Exam: SUBJECTIVE: Patient seen and examined. No new c/o this am. Breathing is improved , ABG is improved. Planning to start being moved out of bed. Still on NC OBJECTIVE: Vital Signs Period Temp Pulse Resp BP Sys/Nielsen Pulse Ox Last 24 Hr 98 F-98.8 F 87-120 17-26 131-180/65-86 97-99 Vital Signs Temp 98.8 F 11/26/17 06:00 Pulse 104 H 11/26/17 06:00 Resp 18 11/26/17 06:00 BP 146/76 11/26/17 06:00 Pulse Ox 99 11/25/17 22:00 Intake & Output 11/23/17 11/24/17 11/25/17 11/26/17 23:59 23:59 23:59 23:59 Intake Total 2260 2550 500 Output Total 1700 1700 2550 Balance -1700 560 0 500 Weight 127.006 kg 131.088 kg 124.313 kg 125.673 kg GENERAL: The patient is obese, awake, alert, NC- 4L. HEAD: Normal with no signs of trauma. EYES: PERRL, extraocular movements intact, ENT: NC- 4L, oropharynx clear without exudates, moist mucous membranes. NECK: supple, No JVP. LUNGS: wheezes improved,more on R HEART: tachycardic, S1, S2 . ABDOMEN: Soft, obese, nontender, nondistended, normoactive bowel sounds, EXTREMITIES: 2+ pulses, warm, well-perfused, mild bilateral pedal edema. NEUROLOGICAL: AAOx3,communicating, moving all limbs. Normal speech, gait not observed. PSYCH: Normal mood, normal affect. Lines: NC, RUE and LUE peripheral lines Laboratory Results - last 24 hr 11/26/17 11/26/17 11/26/17 05:20 05:20 05:20 WBC 11.5 H RBC 4.02 Hgb 10.0 L Hct 33.2 MCV 82.6 MCH 25.0 L MCHC 30.3 L RDW 15.8 H Plt Count 174 MPV 8.6 Neutrophils % 86.4 H Lymphocytes % 7.5 L D Monocytes % 6.0 Eosinophils % 0.0 Basophils % 0.1 PT with INR 41.70 H INR 3.69 H D Sodium 142 Potassium 3.7 Chloride 92 L BUN 23 H Creatinine 1.3 H Creat Clearance w eGFR 40.61 Random Glucose 169 H Calcium 8.5 Phosphorus 2.7 Magnesium 1.9 Total Bilirubin 0.6 AST 32 ALT 38 Alkaline Phosphatase 55 Total Protein 6.0 L Albumin 3.4 Active Medications Generic Name Dose Route Start Last Admin Trade Name Freq PRN Reason Stop Dose Admin Albuterol Sulfate 1 amp 11/25/17 11:29 11/25/17 20:30 Ventolin 0.083% Nebulizer Soln - NEB 1 amp Q4H PRN Administration SHORT OF BREATH/WHEEZING Budesonide/Formoterol Fumarate 1 puff 11/25/17 22:00 11/25/17 21:17 Symbicort 160/4.5mcg - IH 1 puff BID [facility] Administration Ferrous Sulfate 325 mg 11/25/17 17:30 11/25/17 17:25 Feosol - PO 325 mg TIDCM [facility] Administration Furosemide 40 mg 11/25/17 14:00 11/26/17 06:17 Lasix Injection - IVPUSH 40 mg BID@0600,1400 [facility] Administration Guaifenesin 10 ml 11/25/17 11:29 Robitussin - PO Q6H PRN COUGH Azithromycin 500 mg/ Dextrose 250 mls @ 250 mls/hr 11/26/17 10:00 IVPB 11/27/17 11:00 DAILY [facility] CEFTRIAXONE 1 G/50 ML PREMIX 50 mls @ 100 mls/hr 11/25/17 17:30 11/25/17 17: 31 Ceftriaxone 1 Gm-D5w Bag IVPB 100 mls/hr DAILY [facility] Administration Methylprednisolone Sodium Succinate 40 mg 11/25/17 18:00 11/26/17 01:47 Solu-Medrol - IVPUSH 40 mg Q8H-IV [facility] Administration Nifedipine 30 mg 11/26/17 10:00 Procardia Xl - PO DAILY [facility] Oseltamivir Phosphate 75 mg 11/25/17 22:00 11/25/17 21:16 Tamiflu - PO 11/29/17 11:59 75 mg BID [facility] Administration Pantoprazole Sodium 40 mg 11/26/17 10:00 Protonix - PO DAILY [facility] Polyethylene Glycol 17 gm 11/26/17 10:00 Miralax (For Daily Use) - PO DAILY [facility] Rosuvastatin Calcium 10 mg 11/25/17 22:00 11/25/17 21:16 Crestor - PO 10 mg HS [facility] Administration Senna 2 tab 11/25/17 22:00 11/25/17 21:16 Senna - PO 2 tab HS [facility] Administration Tiotropium [place] 1 puff 11/26/17 10:00 Spiriva - IH DAILY [facility] Valsartan 160 mg 11/26/17 10:00 Diovan - PO DAILY [facility] Warfarin Sodium 2 mg 11/25/17 18:00 11/25/17 17:24 Coumadin - PO 2 mg DAILY@1800 [facility] Administration ASSESSMENT/PLAN: 67 yo F with a PMHx of HTN, PHTN, IDDM, CHF, COPD (on 3 L NC) PE, CVA (w/ residual L sided visual loss), IDDM from [facility] admitted to ICU for acute respiratory failure, found to be flu positive and on 4L-NC. Pulm: Acute on Chronic Hypoxic and Hypercapneic Respiratory Failure Likely secondary to Acute COPD Exacerbation with Influenza A Continue Nasal cannular, for BIPAP as needed /tolerated goal SpO2 >90% Continue iv solumedrol 60mg Q8H Continue nebs Dr Brewer to reevaluate need for azithromycin Per Dr Brewer- stop ceftriaxone Continue Tamiflu @75 bid ABG CXR Cardio: Hx of CHF Hx of CVA, HTN, PHTN Bilateral increased lung markings/basilar atelectasis on admission CXR: New infiltrates lung bases- 11/25/17 Cont iv lasix 40mg bid Cont coumadin 2mg daily Cont valsartan Cont Nifedipine ER [Procardia XL -] 30 mg PO DAILY to continue home cardiac medications Hemonc: Hx of thalassemia On iron tablets Chronic anemia Hx of PE s/p 2u prbcs CBC-stable CBC Endo: IDDM BGMs ACHS ISS ACHS Renal/Lines: AMAURY R/O CKD Cr-1.3 Daily weights Ins and Outs BMP Lines: NC, RUE and LUE peripheral lines GI: Cont low sodium diet Prophylaxis: On coumadin 2mg daily On home protonix 40mg PO Dispo: Transfer to [facility]- isolation for droplets Visit type - Emergency Visit Emergency Visit: Yes ED Registration Date: 11/23/17 Care time: The patient presented to the Emergency Department on the above date and was hospitalized for further evaluation of their emergent condition. - New Patient This patient is new to me today: No - Critical Care Critical Care patient: Yes Total Critical Care Time (in minutes): 38 Critical Care Statement: The care of this patient involved high complexity decision making to prevent further life threatening deterioration of the patient 's condition and/or to evaluate & treat vital organ system(s) failure or risk of failure. - Discharge Referral Referred to [facility] Med P.C.: No
[2017-11-26] MEDS ORDERED: PT OWN MED DRAWER 7, Y5N ONE (09:03)
[2017-11-26] MEDS: VALSARTAN 160 MG TABLET (UD) PO SCH (09:24)
[2017-11-26] MEDS: NIFEdipine E.R. 30 MG TABLET (FP) PO SCH (09:27)
[2017-11-26] MEDS: PANTOPRAZOLE 40 MG TABLET (FP) PO SCH (09:28)
[2017-11-26] MEDS: OSELTAMIVIR PHOSPHATE 75 MG CAPSULE PO SCH ×2 (09:28→21:29)
[2017-11-26] MEDS: CEFTRIAXONE 1 G/50 ML PREMIX 50 ML IVPB SCH (09:29)
[2017-11-26] MEDS: BUDESONIDE/FORMETEROL FUMARATE 160/4.5 mcg INHALER IH SCH ×2 (09:29→21:30)
[2017-11-26] MEDS: AZITHROMYCIN IVPB 500 MG in DEXTROSE 5%-WATER - 250 ML IVPB SCH (09:30)
[2017-11-26] MEDS: FERROUS SO4 325 MG TABLET (FP) PO SCH ×3 (09:45→17:53)
[2017-11-26 09:46] LABS: ANION GAP 4 (8-16); CO2 46 mmol/L (21-32)
[2017-11-26 09:57] LABS: ARTERIAL BLD GAS O2 SATURATION 88.6 % (90-98.9); ARTERIAL BLOOD GAS BASE EXCESS 16.7 meq/l (-2-2); ARTERIAL BLOOD GAS PO2 57.1 mmHg (80-100); ARTERIAL BLOOD GAS pH 7.41 (7.35-7.45)
[2017-11-26 10:00] LABS: ALLENS TEST POSITIVE
[2017-11-26 10:03] LABS: ARTERIAL BLOOD GAS PCO2 70.6 mmHg (35-45)
[2017-11-26] MEDS: TIOTROPIUM BROMIDE 18 MCG/INH (DEVICE W/ 5 CAPSULES) IH SCH (11:22)
--- NOTE | 2017-11-26 12:21 | PN ---
Teaching Attending Note Name of Resident: Kay Obregon ATTENDING PHYSICIAN STATEMENT I saw and evaluated the patient. I reviewed the resident's note and discussed the case with the resident. I agree with the resident's findings and plan as documented. SUBJECTIVE: Pt seen and examined in the ICU. Breathing slightly improved but still dyspneic with minimal exertion. +cough and wheezing. No fevers or chills. Refusing BiPAP. OBJECTIVE: Last Vital Signs Temp Pulse Resp BP Pulse Ox 98.8 F 95 H 22 145/78 94 L 11/26/17 06:00 11/26/17 08:15 11/26/17 08:00 11/26/17 08:00 11/26/17 10:55 Intake & Output 11/23/17 11/24/17 11/25/17 11/26/17 23:59 23:59 23:59 23:59 Intake Total 2260 2550 500 Output Total 1700 1700 2550 Balance -1700 560 0 500 Weight 127.006 kg 131.088 kg 124.313 kg 125.673 kg Gen: tachypneic at rest Heart: RRR Lung: distant breath sounds, bilateral rhonchi, wheezes Abd: soft, nontender Ext: + edema CBC, BMP 11/26/17 05:20 11/26/17 05:20 Active Medications Albuterol Sulfate (Ventolin 0.083% Nebulizer Soln -) 1 amp NEB Q4H PRN PRN Reason: SHORT OF BREATH/WHEEZING Last Admin: 11/26/17 11:21 Dose: 1 amp Budesonide/Formoterol Fumarate (Symbicort 160/4.5mcg -) 1 puff IH BID [facility] Last Admin: 11/26/17 09:29 Dose: 1 puff Ferrous Sulfate (Feosol -) 325 mg PO TIDCM [facility] Last Admin: 11/26/17 09:45 Dose: 325 mg Furosemide (Lasix Injection -) 40 mg IVPUSH BID@0600,1400 [facility] Last Admin: 11/26/17 06:17 Dose: 40 mg Guaifenesin (Robitussin -) 10 ml PO Q6H PRN PRN Reason: COUGH Azithromycin 500 mg/ Dextrose 250 mls @ 250 mls/hr IVPB DAILY [facility] Stop: 11/27/17 11:00 Last Admin: 02/01/18 09:30 Dose: 250 mls/hr CEFTRIAXONE 1 G/50 ML PREMIX (Ceftriaxone 1 Gm-D5w Bag) 50 mls @ 100 mls/hr IVPB DAILY [facility] Last Admin: 11/26/17 09:29 Dose: 100 mls/hr Methylprednisolone Sodium Succinate (Solu-Medrol -) 40 mg IVPUSH Q8H-IV [facility] Last Admin: 11/26/17 09:30 Dose: 40 mg Nifedipine (Procardia Xl -) 30 mg PO DAILY [facility] Last Admin: 11/26/17 09:27 Dose: 30 mg Oseltamivir Phosphate (Tamiflu -) 75 mg PO BID [facility] Stop: 11/29/17 11:59 Last Admin: 11/26/17 09:28 Dose: 75 mg Pantoprazole Sodium (Protonix -) 40 mg PO DAILY [facility] Last Admin: 11/26/17 09:28 Dose: 40 mg Polyethylene Glycol (Miralax (For Daily Use) -) 17 gm PO DAILY [facility] Rosuvastatin Calcium (Crestor -) 10 mg PO HS [facility] Last Admin: 11/25/17 21:16 Dose: 10 mg Senna (Senna -) 2 tab PO HS [facility] Last Admin: 11/25/17 21:16 Dose: 2 tab Tiotropium [place] (Spiriva -) 1 puff IH DAILY [facility] Last Admin: 11/26/17 11:22 Dose: 1 inh Valsartan (Diovan -) 160 mg PO DAILY [facility] Last Admin: 11/26/17 09:24 Dose: 160 mg Warfarin Sodium (Coumadin -) 2 mg PO DAILY@1800 [facility] Last Admin: 11/25/17 17:24 Dose: 2 mg ASSESSMENT AND PLAN: Acute on Chronic Hypoxic and Hypercapneic Respiratory Failure Influenza A Acute COPD Exacerbation LV Diastolic Dysfunction h/o PE h/o CVA DM CKD Anemia - continue tamiflu - continue empiric antibiotics - f/u cultures - continue medrol at current dose - inhaled bronchodilators standing and PRN - continue IV lasix - monitor urine output, creatinine - monitor H/H - transfuse as needed - O2 to keep SpO2 >90% - BiPAP if pt allows - continue anticoagulation - can transfer to telemetry critical care time spent in reviewing chart, evaluating patient and formulating plan 35 min
[2017-11-26] MEDS: POLYETHYLENE GLYCOL 3350 119 GM BTL PO SCH ×2 (14:14→16:27)
--- NOTE | 2017-11-26 16:56 | PN ---
Progress Note, Physician History of Present Illness: still with sob says slightly better no complaints but still not 100 percent - Current Medication List Current Medications: Active Medications Albuterol Sulfate (Ventolin 0.083% Nebulizer Soln -) 1 amp NEB Q4H PRN PRN Reason: SHORT OF BREATH/WHEEZING Last Admin: 11/26/17 16:29 Dose: 1 amp Budesonide/Formoterol Fumarate (Symbicort 160/4.5mcg -) 1 puff IH BID [facility] Last Admin: 11/26/17 09:29 Dose: 1 puff Ferrous Sulfate (Feosol -) 325 mg PO TIDCM [facility] Last Admin: 11/26/17 14:14 Dose: 325 mg Furosemide (Lasix Injection -) 40 mg IVPUSH BID@0600,1400 [facility] Last Admin: 11/26/17 14:14 Dose: 40 mg Guaifenesin (Robitussin -) 10 ml PO Q6H PRN PRN Reason: COUGH Azithromycin 500 mg/ Dextrose 250 mls @ 250 mls/hr IVPB DAILY [facility] Stop: 11/27/17 11:00 Last Admin: 11/26/17 09:30 Dose: 250 mls/hr CEFTRIAXONE 1 G/50 ML PREMIX (Ceftriaxone 1 Gm-D5w Bag) 50 mls @ 100 mls/hr IVPB DAILY [facility] Last Admin: 11/26/17 09:29 Dose: 100 mls/hr Methylprednisolone Sodium Succinate (Solu-Medrol -) 40 mg IVPUSH Q8H-IV [facility] Last Admin: 11/26/17 09:30 Dose: 40 mg Nifedipine (Procardia Xl -) 30 mg PO DAILY [facility] Last Admin: 11/26/17 09:27 Dose: 30 mg Oseltamivir Phosphate (Tamiflu -) 75 mg PO BID [facility] Stop: 11/29/17 11:59 Last Admin: 11/26/17 09:28 Dose: 75 mg Pantoprazole Sodium (Protonix -) 40 mg PO DAILY [facility] Last Admin: 11/26/17 09:28 Dose: 40 mg Polyethylene Glycol (Miralax (For Daily Use) -) 17 gm PO DAILY [facility] Last Admin: 11/26/17 16:27 Dose: Not Given Rosuvastatin Calcium (Crestor -) 10 mg PO HS [facility] Last Admin: 11/25/17 21:16 Dose: 10 mg Senna (Senna -) 2 tab PO HS [facility] Last Admin: 11/25/17 21:16 Dose: 2 tab Tiotropium [place] (Spiriva -) 1 puff IH DAILY [facility] Last Admin: 11/26/17 11:22 Dose: 1 inh Valsartan (Diovan -) 160 mg PO DAILY [facility] Last Admin: 11/26/17 09:24 Dose: 160 mg Warfarin Sodium (Coumadin -) 2 mg PO DAILY@1800 [facility] Last Admin: 11/25/17 17:24 Dose: 2 mg - Objective Vital Signs: Vital Signs Temperature 99.4 F 11/26/17 14:00 Pulse Rate 110 H 11/26/17 14:00 Respiratory Rate 25 H 11/26/17 14:00 Blood Pressure 151/87 11/26/17 14:00 O2 Sat by Pulse Oximetry (%) 95 11/26/17 16:28 Constitutional: Yes: Calm, Mild Distress Cardiovascular: Yes: Regular Rate and Rhythm Respiratory: Yes: On Nasal O2, Poor Air Entry, Other Gastrointestinal: Yes: Normal Bowel Sounds, Soft Musculoskeletal: Yes: WNL Extremities: Yes: WNL Neurological: Yes: Alert, Oriented Psychiatric: Yes: Alert, Oriented Labs: CBC, BMP 11/26/17 05:20 11/26/17 05:20 INR, PTT INR 3.69 (0.82-1.09) H D 11/26/17 05:20 - ....Imaging Chest X-ray: Report Reviewed, Image Reviewed Assessment/Plan this patient with multiple comorbid condition and with flu and positive xray findings Problem List - Problems (1) Influenza Code(s): J11.1 - FLU DUE TO UNIDENTIFIED INFLUENZA VIRUS W OTH RESP MANIFEST (2) Acute on chronic respiratory failure with hypoxia and hypercapnia Assessment/Plan: Code(s): J96.21 - ACUTE AND CHRONIC RESPIRATORY FAILURE WITH HYPOXIA; J96.22 - ACUTE AND CHRONIC RESPIRATORY FAILURE WITH HYPERCAPNIA (3) Anemia Code(s): D64.9 - ANEMIA, UNSPECIFIED Qualifiers: Anemia type: unspecified type Qualified Code(s): D64.9 - Anemia, unspecified (4) Chronic diastolic (congestive) heart failure Code(s): I50.32 - CHRONIC DIASTOLIC (CONGESTIVE) HEART FAILURE (5) Hypertension Code(s): I10 - ESSENTIAL (PRIMARY) HYPERTENSION (6) Pulmonary embolus Code(s): I26.99 - OTHER PULMONARY EMBOLISM WITHOUT ACUTE COR PULMONALE (7) Coronary artery disease Code(s): I25.10 - ATHSCL HEART DISEASE OF [place] CORONARY ARTERY W/O ANG PCTRS (8) long-term current use of anticoagulant Code(s): Z79.01 - INTERMEDIATE (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 OF 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 9) uti plan continue current mgmt continue abx consider stopping zithro resp support continue tamiflu and resp precautions rest as per icu cc 40 min
[2017-11-26] MEDS: SENNOSIDES 8.6MG TABLET (FP) PO SCH (21:29)
[2017-11-26] MEDS: ROSUVASTATIN CA 10 MG TABLET (FP) PO SCH (21:29)
--- NOTE | 2017-11-26 22:06 | PN ---
Progress Note, Physician History of Present Illness: Pt feeling claustrophic - Current Medication List Current Medications: Active Medications Albuterol Sulfate (Ventolin 0.083% Nebulizer Soln -) 1 amp NEB Q4H PRN PRN Reason: SHORT OF BREATH/WHEEZING Last Admin: 11/26/17 16:29 Dose: 1 amp Budesonide/Formoterol Fumarate (Symbicort 160/4.5mcg -) 1 puff IH BID [facility] Last Admin: 11/26/17 21:30 Dose: 1 puff Ferrous Sulfate (Feosol -) 325 mg PO TIDCM [facility] Last Admin: 11/26/17 17:53 Dose: 325 mg Furosemide (Lasix Injection -) 40 mg IVPUSH BID@0600,1400 [facility] Last Admin: 11/26/17 14:14 Dose: 40 mg Guaifenesin (Robitussin -) 10 ml PO Q6H PRN PRN Reason: COUGH Azithromycin 500 mg/ Dextrose 250 mls @ 250 mls/hr IVPB DAILY [facility] Stop: 11/27/17 11:00 Last Admin: 11/26/17 09:30 Dose: 250 mls/hr CEFTRIAXONE 1 G/50 ML PREMIX (Ceftriaxone 1 Gm-D5w Bag) 50 mls @ 100 mls/hr IVPB DAILY [facility] Last Admin: 11/26/17 09:29 Dose: 100 mls/hr Methylprednisolone Sodium Succinate (Solu-Medrol -) 40 mg IVPUSH Q8H-IV [facility] Last Admin: 11/26/17 17:53 Dose: 40 mg Nifedipine (Procardia Xl -) 30 mg PO DAILY [facility] Last Admin: 11/26/17 09:27 Dose: 30 mg Oseltamivir Phosphate (Tamiflu -) 75 mg PO BID [facility] Stop: 11/29/17 11:59 Last Admin: 11/26/17 21:29 Dose: 75 mg Pantoprazole Sodium (Protonix -) 40 mg PO DAILY [facility] Last Admin: 11/26/17 09:28 Dose: 40 mg Polyethylene Glycol (Miralax (For Daily Use) -) 17 gm PO DAILY [facility] Last Admin: 11/26/17 16:27 Dose: Not Given Rosuvastatin Calcium (Crestor -) 10 mg PO HS [facility] Last Admin: 11/26/17 21:29 Dose: 10 mg Senna (Senna -) 2 tab PO [facility] Last Admin: 11/26/17 21:29 Dose: 2 tab Tiotropium [place] (Spiriva -) 1 puff IH DAILY [facility] Last Admin: 11/26/17 11:22 Dose: 1 inh Valsartan (Diovan -) 160 mg PO DAILY [facility] Last Admin: 11/26/17 09:24 Dose: 160 mg Warfarin Sodium (Coumadin -) 2 mg PO DAILY@1800 [facility] Last Admin: 11/25/17 17:24 Dose: 2 mg - Objective Vital Signs: Vital Signs Temperature 99.4 F 11/26/17 14:00 Pulse Rate 97 H 11/26/17 20:00 Respiratory Rate 22 11/26/17 20:00 Blood Pressure 151/91 11/26/17 20:00 O2 Sat by Pulse Oximetry (%) 95 11/26/17 21:00 Constitutional: Yes: Well Nourished, Obese HENT: Yes: WNL Neck: Yes: WNL, Supple Cardiovascular: Yes: WNL, Regular Rate and Rhythm Respiratory: Yes: Rhonchi Gastrointestinal: Yes: WNL, Normal Bowel Sounds, Soft, Abdomen, Obese Edema: No Labs: CBC, BMP 11/26/17 05:20 11/26/17 05:20 INR, PTT INR 3.69 (0.82-1.09) H D 11/26/17 05:20 Problem List - Problems (1) Diabetes Code(s): E11.9 - TYPE 2 DIABETES MELLITUS WITHOUT COMPLICATIONS (2) GERD (gastroesophageal reflux disease) Code(s): K21.9 - GASTRO-ESOPHAGEAL REFLUX DISEASE WITHOUT ESOPHAGITIS (3) Influenza Code(s): J11.1 - FLU DUE TO UNIDENTIFIED INFLUENZA VIRUS W OTH RESP MANIFEST (4) Acute on chronic respiratory failure with hypoxia and hypercapnia Code(s): J96.21 - ACUTE AND CHRONIC RESPIRATORY FAILURE WITH HYPOXIA; J96.22 - ACUTE AND CHRONIC RESPIRATORY FAILURE WITH HYPERCAPNIA (5) Anemia Code(s): D64.9 - ANEMIA, UNSPECIFIED Qualifiers: Anemia type: unspecified type Qualified Code(s): D64.9 - Anemia, unspecified (6) History of pulmonary embolism Code(s): Z86.711 - PERSONAL HISTORY OF PULMONARY EMBOLISM (7) Hypertension Code(s): I10 - ESSENTIAL (PRIMARY) HYPERTENSION (8) Morbid obesity Code(s): E66.01 - MORBID (SEVERE) OBESITY DUE TO EXCESS CALORIES
[2017-11-27] MEDS: methylPREDNISolone NA SUCC 40 MG/1 ML VIAL IVPUSH SCH ×3 (02:22→17:13)
[2017-11-27] MEDS: FUROSEMIDE 40 MG/4 ML INJECTABLE VIAL IVPUSH SCH ×2 (05:45→13:35)
[2017-11-27 06:58] LABS: PROTHROMBIN TIME (PATIENT) 46.5 SEC (9.98-11.88)
[2017-11-27 07:12] LABS: ALBUMIN 3.1 g/dl (3.4-5.0); ALK PHOS 55 U/L (45-117); BILIRUBIN,TOTAL 0.4 mg/dL (0.2-1.0); BLOOD UREA NITROGEN 25 mg/dL (7-18); CALCIUM 8.8 mg/dL (8.5-10.1); CHLORIDE 89 mmol/L (98-107); CREATININE 1.4 mg/dL (0.55-1.02); GLUCOSE,RANDOM 200 mg/dL (74-106); PHOSPHOROUS 3.2 mg/dL (2.5-4.9); SGOT/AST 29 U/L (15-37); SGPT/ALT 35 U/L (12-78); SODIUM 143 mmol/L (136-145); TOT PROT 6.1 g/dl (6.4-8.2)
[2017-11-27 07:25] LABS: INR 4.12 (0.82-1.09)
[2017-11-27 07:35] LABS: HEMATOCRIT 36.9 % (32.4-45.2); HEMOGLOBIN 10.7 GM/dL (10.7-15.3); MCH 24.3 pg (25.7-33.7); MCHC 29.1 g/dl (32.0-36.0); MEAN CELL VOLUME 83.6 fl (80-96); MEAN PLT VOLUME 8.6 fl (7.5-11.1); PLATELET COUNT 165 K/MM3 (134-434); RBC 4.41 M/mm3 (3.60-5.2); RDW 16.2 % (11.6-15.6); WHITE BLOOD COUNT 13.3 K/mm3 (4.0-10.0)
[2017-11-27 07:36] LABS: ANION GAP 5 (8-16); CO2 49 mmol/L (21-32)
[2017-11-27] MEDS: ALBUTEROL SO4 0.083% IH SOL 2.5 MG/3 ML VIAL.NEB. NEB PRN ×4 (08:24→23:21)
--- NOTE | 2017-11-27 08:33 | PN ---
Physical Exam: SUBJECTIVE: Patient seen and examined. Described subjective fevers overnight, but no objective fevers noted. Still on NC- since claustrophobic and unwilling to use BIPAP. ABGS improved OBJECTIVE: Vital Signs Period Temp Pulse Resp BP Sys/Nielsen Pulse Ox Last 24 Hr 98.0 F-99.4 F 92-112 17-106 131-159/65-96 92-95 Vital Signs Temp 99.4 F 11/27/17 08:02 Pulse 98 H 11/27/17 08:02 Resp 19 11/27/17 08:02 BP 159/96 11/27/17 08:02 Pulse Ox 95 11/26/17 21:00 Intake & Output 11/26/17 11/26/17 11/27/17 11:59 23:59 11:59 Intake Total 500 200 300 Balance 500 200 300 Weight 125.673 kg 123.009 kg Intake: Oral 500 200 300 Other: Voiding Method Incontinent Diaper # Unmeasured Voids Void 1 2 2 Bowel Movement Yes Weight Measurement Method Built in Bedscale Built in Bedshocking [facility] Intake & Output 11/24/17 11/25/17 11/26/17 11/27/17 23:59 23:59 23:59 23:59 Intake Total 2260 2550 700 300 Output Total 1700 2550 Balance 560 0 700 300 Weight 131.088 kg 124.313 kg 125.673 kg 123.009 kg GENERAL: The patient is obese, awake, alert, NC- 4L. HEAD: Normal with no signs of trauma. EYES: PERRL, extraocular movements intact, ENT: NC- 4L, oropharynx clear without exudates, moist mucous membranes. NECK: supple, No JVP. LUNGS: wheezes improved HEART: tachycardic, S1, S2 . ABDOMEN: Soft, obese, nontender, nondistended, normoactive bowel sounds, EXTREMITIES: 2+ pulses, warm, well-perfused, mild bilateral pedal edema. NEUROLOGICAL: AAOx3, communicating, moving all limbs. Normal speech, gait not observed. PSYCH: Normal mood, normal affect. Lines: NC, RUE and LUE peripheral lines ABG Results ABG pH 7.41 (7.35-7.45) 11/26/17 09:48 ABG pCO2 at Pt Temp 70.6 mmHg (35-45) H* 11/26/17 09:48 ABG pO2 at Pt Temp 57.1 mmHg (80-100) L 11/26/17 09:48 ABG HCO3 44.1 meq/L (22-26) H* 11/26/17 09:48 ABG O2 Sat (Measured) 88.6 % (90-98.9) L 11/26/17 09:48 ABG O2 Content 13.0 % vol (15-22) L 11/26/17 09:48 ABG Base Excess 16.7 meq/l (-2-2) H* 11/26/17 09:48 CBC, BMP 11/27/17 06:30 11/27/17 06:30 INR, PTT INR 4.12 (0.82-1.09) H* 11/27/17 06:30 CXR: No pneumothorax, CHF or infiltrates Laboratory Results - last 24 hr 11/26/17 11/26/17 11/27/17 05:20 09:48 06:30 WBC 13.3 H RBC 4.41 Hgb 10.7 Hct 36.9 MCV 83.6 MCH 24.3 L MCHC 29.1 L RDW 16.2 H Plt Count 165 MPV 8.6 Neutrophils % No Result Required. Lymphocytes % No Result Required. PT with INR INR Puncture Site Right radial ABG pH 7.41 ABG pCO2 at Pt Temp 70.6 H* ABG pO2 at Pt Temp 57.1 L ABG HCO3 44.1 H* ABG O2 Sat (Measured) 88.6 L ABG O2 Content 13.0 L ABG Base Excess 16.7 H* Willy Test Positive O2 Delivery Device Nasal Oxygen Flow Rate 2lpm PEEP 0.0 Sodium Potassium Chloride Carbon Dioxide 46 H Anion Gap 4 L BUN Creatinine Creat Clearance w eGFR Random Glucose Calcium Phosphorus Magnesium Total Bilirubin AST ALT Alkaline Phosphatase Total Protein Albumin 11/27/17 11/27/17 06:30 06:30 WBC RBC Hgb Hct MCV MCH MCHC RDW Plt Count MPV Neutrophils % Lymphocytes % PT with INR 46.50 H INR 4.12 H* Puncture Site ABG pH ABG pCO2 at Pt Temp ABG pO2 at Pt Temp ABG HCO3 ABG O2 Sat (Measured) ABG O2 Content ABG Base Excess Willy Test O2 Delivery Device Oxygen Flow Rate PEEP Sodium 143 Potassium 4.0 Chloride 89 L Carbon Dioxide 49 H Anion Gap 5 L BUN 25 H Creatinine 1.4 H Creat Clearance w eGFR 37.28 Random Glucose 200 H Calcium 8.8 Phosphorus 3.2 Magnesium 2.0 Total Bilirubin 0.4 D AST 29 ALT 35 Alkaline Phosphatase 55 Total Protein 6.1 L Albumin 3.1 L Active Medications Generic Name Dose Route Start Last Admin Trade Name Freq PRN Reason Stop Dose Admin Albuterol Sulfate 1 amp 11/25/17 11:29 11/27/17 08:24 Ventolin 0.083% Nebulizer Soln - NEB 1 amp Q4H PRN Administration SHORT OF BREATH/WHEEZING Budesonide/Formoterol Fumarate 1 puff 11/25/17 22:00 11/26/17 21:30 Symbicort 160/4.5mcg - IH 1 puff BID [facility] Administration Ferrous Sulfate 325 mg 11/25/17 17:30 11/26/17 17:53 Feosol - PO 325 mg TIDCM [facility] Administration Furosemide 40 mg 11/25/17 14:00 11/27/17 05:45 Lasix Injection - IVPUSH 40 mg BID@0600,1400 [facility] Administration Guaifenesin 10 ml 11/25/17 11:29 Robitussin - PO Q6H PRN COUGH Azithromycin 500 mg/ Dextrose 250 mls @ 250 mls/hr 11/26/17 10:00 11/26/17 09 :30 IVPB 11/27/17 11:00 250 mls/hr DAILY [facility] Administration CEFTRIAXONE 1 G/50 ML PREMIX 50 mls @ 100 mls/hr 11/25/17 17:30 11/26/17 09: 29 Ceftriaxone 1 Gm-D5w Bag IVPB 100 mls/hr DAILY [facility] Administration Methylprednisolone Sodium Succinate 40 mg 11/25/17 18:00 11/27/17 02:22 Solu-Medrol - IVPUSH 40 mg Q8H-IV [facility] Administration Nifedipine 30 mg 11/26/17 10:00 11/26/17 09:27 Procardia Xl - PO 30 mg DAILY [facility] Administration Oseltamivir Phosphate 75 mg 11/25/17 22:00 11/26/17 21:29 Tamiflu - PO 11/29/17 11:59 75 mg BID [facility] Administration Pantoprazole Sodium 40 mg 11/26/17 10:00 11/26/17 09:28 Protonix - PO 40 mg DAILY [facility] Administration Polyethylene Glycol 17 gm 02/01/18 10:00 11/26/17 16:27 Miralax (For Daily Use) - PO Not Given DAILY [facility] Rosuvastatin Calcium 10 mg 11/25/17 22:00 11/26/17 21:29 Crestor - PO 10 mg HS [facility] Administration Senna 2 tab 11/25/17 22:00 11/26/17 21:29 Senna - PO 2 tab HS [facility] Administration Tiotropium [place] 1 puff 11/26/17 10:00 11/26/17 11:22 Spiriva - IH 1 inh DAILY [facility] Administration Valsartan 160 mg 11/26/17 10:00 11/26/17 09:24 Diovan - PO 160 mg DAILY [facility] Administration ASSESSMENT/PLAN: 67 yo F with a PMHx of HTN, PHTN, IDDM, CHF, COPD (on 3 L NC) PE, CVA (w/ residual L sided visual loss), IDDM from [facility] admitted to ICU for acute respiratory failure, found to be flu positive and on 4L-NC. Pulm: Acute on Chronic Hypoxic and Hypercapneic Respiratory Failure Likely secondary to Acute COPD Exacerbation with Influenza A Continue Nasal cannular, for BIPAP as needed /tolerated goal SpO2 >90% Reduce iv solumedrol to 40mg Q8H Continue nebs Continue iv azithromycin 500mg Continue Tamiflu @75 bid ABG CXR Cardio: Hx of CHF Hx of CVA, HTN, PHTN Bilateral increased lung markings/basilar atelectasis on admission Cont iv lasix 40mg bid Change coumadin to 1mg daily (supratherapeutic) Cont valsartan Cont Nifedipine ER [Procardia XL -] 30 mg PO DAILY to continue home cardiac medications Hemonc: Hx of thalassemia On iron tablets Chronic anemia Hx of PE s/p 2u prbcs-11/24 CBC-stable CBC Endo: IDDM BGMs ACHS ISS ACHS Renal/Lines: AMAURY R/O CKD Cr-1.3 Daily weights Ins and Outs BMP Lines: NC, RUE and LUE peripheral lines GI: Cont low sodium diet Prophylaxis: On coumadin 1mg daily On home protonix 40mg PO Dispo: Transfer to [facility] for droplets Visit type - Emergency Visit Emergency Visit: Yes ED Registration Date: 11/23/17 Care time: The patient presented to the Emergency Department on the above date and was hospitalized for further evaluation of their emergent condition. - New Patient This patient is new to me today: No - Critical Care Critical Care patient: Yes Total Critical Care Time (in minutes): 40 Critical Care Statement: The care of this patient involved high complexity decision making to prevent further life threatening deterioration of the patient 's condition and/or to evaluate & treat vital organ system(s) failure or risk of failure. - Discharge Referral Referred to [facility] No
[2017-11-27] MEDS ORDERED: PT OWN MED DRAWER 7, Y5N ONE ×2 (09:33→21:57)
[2017-11-27] MEDS: OSELTAMIVIR PHOSPHATE 75 MG CAPSULE PO SCH ×2 (09:41→22:48)
[2017-11-27] MEDS: CEFTRIAXONE 1 G/50 ML PREMIX 50 ML IVPB SCH (09:41)
[2017-11-27] MEDS: PANTOPRAZOLE 40 MG TABLET (FP) PO SCH (09:41)
[2017-11-27] MEDS: NIFEdipine E.R. 30 MG TABLET (FP) PO SCH (09:41)
[2017-11-27] MEDS: FERROUS SO4 325 MG TABLET (FP) PO SCH ×3 (09:41→17:13)
[2017-11-27] MEDS: VALSARTAN 160 MG TABLET (UD) PO SCH (09:41)
[2017-11-27] MEDS: BUDESONIDE/FORMETEROL FUMARATE 160/4.5 mcg INHALER IH SCH ×2 (09:42→22:47)
[2017-11-27] MEDS: AZITHROMYCIN IVPB 500 MG in DEXTROSE 5%-WATER - 250 ML IVPB SCH (09:43)
[2017-11-27] MEDS: TIOTROPIUM BROMIDE 18 MCG/INH (DEVICE W/ 5 CAPSULES) IH SCH (09:43)
[2017-11-27] MEDS: POLYETHYLENE GLYCOL 3350 119 GM BTL PO SCH (09:53)
--- NOTE | 2017-11-27 12:22 | PN ---
Teaching Attending Note Name of Resident: Kay Obregon ATTENDING PHYSICIAN STATEMENT I saw and evaluated the patient. I reviewed the resident's note and discussed the case with the resident. I agree with the resident's findings and plan as documented. SUBJECTIVE: Patient seen and examined in the ICU. Breathing continues to slowly improve. Still with some cough and wheezing. Still remains mildly tachypneic at rest. No CP. OBJECTIVE: Last Vital Signs Temp Pulse Resp BP Pulse Ox 98.8 F 95 H 22 145/78 94 L 11/26/17 06:00 11/26/17 08:15 11/26/17 08:00 11/26/17 08:00 11/26/17 10:55 Intake & Output 11/23/17 11/24/17 11/25/17 11/26/17 23:59 23:59 23:59 23:59 Intake Total 2260 2550 500 Output Total 1700 1700 2550 Balance -1700 560 0 500 Weight 127.006 kg 131.088 kg 124.313 kg 125.673 kg Gen: tachypneic at rest Heart: RRR Lung: distant breath sounds, bilateral rhonchi, few wheezes Abd: soft, nontender Ext: + edema Laboratory Results - last 24 hr 11/24/17 11/27/17 11/27/17 07:55 06:30 06:30 WBC 13.3 H RBC 4.41 Hgb 10.7 Hct 36.9 MCV 83.6 MCH 24.3 L MCHC 29.1 L RDW 16.2 H Plt Count 165 MPV 8.6 Neutrophils % No Result Required. Lymphocytes % No Result Required. PT with INR INR Sodium 143 Potassium 4.0 Chloride 89 L Carbon Dioxide 49 H Anion Gap 5 L BUN 25 H Creatinine 1.4 H Creat Clearance w eGFR 37.28 Random Glucose 200 H Calcium 8.8 Phosphorus 3.2 Magnesium 2.0 Total Bilirubin 0.4 D AST 29 ALT 35 Alkaline Phosphatase 55 Total Protein 6.1 L Albumin 3.1 L Blood Type O POSITIVE Antibody Screen Negative Crossmatch See Detail 11/27/17 06:30 WBC RBC Hgb Hct MCV MCH MCHC RDW Plt Count MPV Neutrophils % Lymphocytes % PT with INR 46.50 H INR 4.12 H* Sodium Potassium Chloride Carbon Dioxide Anion Gap BUN Creatinine Creat Clearance w eGFR Random Glucose Calcium Phosphorus Magnesium Total Bilirubin AST ALT Alkaline Phosphatase Total Protein Albumin Blood Type Antibody Screen Crossmatch ASSESSMENT AND PLAN: Acute on Chronic Hypoxic and Hypercapneic Respiratory Failure Influenza A Acute COPD Exacerbation LV Diastolic Dysfunction h/o PE h/o CVA DM CKD Anemia - continue tamiflu - Medrol taper - inhaled bronchodilators standing and PRN - continue IV lasix - monitor urine output, creatinine - monitor H/H - transfuse as needed - O2 to keep SpO2 >90% - BiPAP if pt allows - continue anticoagulation - Cardiac telemetry monitoring Dr Waters Critical care time spent in reviewing chart, evaluating patient and formulating plan 35 min
[2017-11-27 12:29] LABS: PLATELET ESTIMATE ADEQUATE
[2017-11-27] MEDS ORDERED: WARFARIN NA 1 MG TABLET (FP) PO SCH (18:00)
--- NOTE | 2017-11-27 18:04 | PN ---
Progress Note, Physician History of Present Illness: doing better still requiring resp support improving - Current Medication List Current Medications: Active Medications Albuterol Sulfate (Ventolin 0.083% Nebulizer Soln -) 1 amp NEB Q4H PRN PRN Reason: SHORT OF BREATH/WHEEZING Last Admin: 11/27/17 11:58 Dose: 1 amp Budesonide/Formoterol Fumarate (Symbicort 160/4.5mcg -) 2 puff IH BID [facility] Ferrous Sulfate (Feosol -) 325 mg PO TIDCM [facility] Last Admin: 11/27/17 17:13 Dose: 325 mg Furosemide (Lasix Injection -) 40 mg IVPUSH BID@0600,1400 [facility] Last Admin: 11/27/17 13:35 Dose: 40 mg Guaifenesin (Robitussin -) 10 ml PO Q6H PRN PRN Reason: COUGH CEFTRIAXONE 1 G/50 ML PREMIX (Ceftriaxone 1 Gm-D5w Bag) 50 mls @ 100 mls/hr IVPB DAILY [facility] Last Admin: 11/27/17 09:41 Dose: 100 mls/hr Methylprednisolone Sodium Succinate (Solu-Medrol -) 20 mg IVPUSH Q8H-IV [facility] Last Admin: 11/27/17 17:13 Dose: 20 mg Nifedipine (Procardia Xl -) 30 mg PO DAILY [facility] Last Admin: 11/27/17 09:41 Dose: 30 mg Oseltamivir Phosphate (Tamiflu -) 75 mg PO BID [facility] Stop: 11/29/17 11:59 Last Admin: 11/27/17 09:41 Dose: 75 mg Pantoprazole Sodium (Protonix -) 40 mg PO DAILY [facility] Last Admin: 11/27/17 09:41 Dose: 40 mg Polyethylene Glycol (Miralax (For Daily Use) -) 17 gm PO DAILY [facility] Last Admin: 11/27/17 09:53 Dose: Not Given Rosuvastatin Calcium (Crestor -) 10 mg PO HS [facility] Last Admin: 11/26/17 21:29 Dose: 10 mg Senna (Senna -) 2 tab PO HS [facility] Last Admin: 11/26/17 21:29 Dose: 2 tab Tiotropium [place] (Spiriva -) 1 puff IH DAILY [facility] Last Admin: 11/27/17 09:43 Dose: 1 inh Valsartan (Diovan -) 160 mg PO DAILY [facility] Last Admin: 11/27/17 09:41 Dose: 160 mg Warfarin Sodium (Coumadin -) 1 mg PO DAILY@1800 [facility] Last Admin: 11/27/17 17:13 Dose: 1 mg - Objective Vital Signs: Vital Signs Temperature 98.2 F 11/27/17 12:11 Pulse Rate 104 H 11/27/17 17:10 Respiratory Rate 18 11/27/17 17:10 Blood Pressure 161/79 11/27/17 17:10 O2 Sat by Pulse Oximetry (%) 94 L 11/27/17 11:48 Constitutional: Yes: No Distress, Calm Cardiovascular: Yes: Regular Rate and Rhythm Respiratory: Yes: On Nasal O2, Poor Air Entry Gastrointestinal: Yes: Normal Bowel Sounds, Soft Musculoskeletal: Yes: WNL Extremities: Yes: WNL Neurological: Yes: Alert, Oriented Psychiatric: Yes: Alert, Oriented Labs: CBC, BMP 11/27/17 06:30 11/27/17 06:30 INR, PTT INR 4.12 (0.82-1.09) H* 11/27/17 06:30 Assessment/Plan this patient with multiple comorbid condition and with flu and positive xray findings Problem List - Problems (1) Influenza Code(s): J11.1 - FLU DUE TO UNIDENTIFIED INFLUENZA VIRUS W OTH RESP MANIFEST (2) Acute on chronic respiratory failure with hypoxia and hypercapnia Assessment/Plan: Code(s): J96.21 - ACUTE AND CHRONIC RESPIRATORY FAILURE WITH HYPOXIA; J96.22 - ACUTE AND CHRONIC RESPIRATORY FAILURE WITH HYPERCAPNIA (3) Anemia Code(s): D64.9 - ANEMIA, UNSPECIFIED Qualifiers: Anemia type: unspecified type Qualified Code(s): D64.9 - Anemia, unspecified (4) Chronic diastolic (congestive) heart failure Code(s): I50.32 - CHRONIC DIASTOLIC (CONGESTIVE) HEART FAILURE (5) Hypertension Code(s): I10 - ESSENTIAL (PRIMARY) HYPERTENSION (6) Pulmonary embolus Code(s): I26.99 - OTHER PULMONARY EMBOLISM WITHOUT ACUTE COR PULMONALE (7) Coronary artery disease Code(s): I25.10 - ATHSCL HEART DISEASE OF [place] CORONARY ARTERY W/O ANG PCTRS (8) buttermaker continuous churn current use of anticoagulant Code(s): Z79.01 - [facility]IN[facility] (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 OF 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 9) uti plan continue current mgmt continue abx consider stopping zithro resp support tamiflu tomorrow last day can stop after that rest as per icu cc 40 min
[2017-11-27] MEDS: ROSUVASTATIN CA 10 MG TABLET (FP) PO SCH (22:48)
[2017-11-27] MEDS: SENNOSIDES 8.6MG TABLET (FP) PO SCH (22:49)
--- NOTE | 2017-11-27 23:30 | PN ---
Progress Note, Physician History of Present Illness: No new complaints - Current Medication List Current Medications: Active Medications Albuterol Sulfate (Ventolin 0.083% Nebulizer Soln -) 1 amp NEB Q4H PRN PRN Reason: SHORT OF BREATH/WHEEZING Last Admin: 11/27/17 23:21 Dose: 1 amp Budesonide/Formoterol Fumarate (Symbicort 160/4.5mcg -) 2 puff IH BID [facility] Last Admin: 11/27/17 22:47 Dose: 2 puff Ferrous Sulfate (Feosol -) 325 mg PO TIDCM [facility] Last Admin: 11/27/17 17:13 Dose: 325 mg Furosemide (Lasix Injection -) 40 mg IVPUSH BID@0600,1400 [facility] Last Admin: 11/27/17 13:35 Dose: 40 mg Guaifenesin (Robitussin -) 10 ml PO Q6H PRN PRN Reason: COUGH CEFTRIAXONE 1 G/50 ML PREMIX (Ceftriaxone 1 Gm-D5w Bag) 50 mls @ 100 mls/hr IVPB DAILY [facility] Last Admin: 11/27/17 09:41 Dose: 100 mls/hr Methylprednisolone Sodium Succinate (Solu-Medrol -) 20 mg IVPUSH Q8H-IV [facility] Last Admin: 11/27/17 17:13 Dose: 20 mg Nifedipine (Procardia Xl -) 30 mg PO DAILY [facility] Last Admin: 11/27/17 09:41 Dose: 30 mg Oseltamivir Phosphate (Tamiflu -) 75 mg PO BID [facility] Stop: 11/29/17 11:59 Last Admin: 11/27/17 22:48 Dose: 75 mg Pantoprazole Sodium (Protonix -) 40 mg PO DAILY [facility] Last Admin: 11/27/17 09:41 Dose: 40 mg Polyethylene Glycol (Miralax (For Daily Use) -) 17 gm PO DAILY [facility] Last Admin: 11/27/17 09:53 Dose: Not Given Rosuvastatin Calcium (Crestor -) 10 mg PO HS [facility] Last Admin: 11/27/17 22:48 Dose: 10 mg Senna (Senna -) 2 tab PO HS [facility] Last Admin: 11/27/17 22:49 Dose: 2 tab Tiotropium [place] (Spiriva -) 1 puff IH DAILY [facility] Last Admin: 11/27/17 09:43 Dose: 1 inh Valsartan (Diovan -) 160 mg PO DAILY [facility] Last Admin: 11/27/17 09:41 Dose: 160 mg Warfarin Sodium (Coumadin -) 1 mg PO DAILY@1800 [facility] Last Admin: 11/27/17 17:13 Dose: 1 mg - Objective Vital Signs: Vital Signs Temperature 98.8 F 11/27/17 17:30 Pulse Rate 53 L 11/27/17 17:30 Respiratory Rate 18 11/27/17 17:30 Blood Pressure 101/60 11/27/17 17:30 O2 Sat by Pulse Oximetry (%) 94 L 11/27/17 11:48 Constitutional: Yes: Well Nourished, Obese HENT: Yes: WNL Neck: Yes: WNL, Supple Cardiovascular: Yes: WNL, Regular Rate and Rhythm Respiratory: Yes: Diminished Gastrointestinal: Yes: WNL, Normal Bowel Sounds, Soft, Abdomen, Obese Edema: No Labs: CBC, BMP 11/27/17 06:30 11/27/17 06:30 INR, PTT INR 4.12 (0.82-1.09) H* 11/27/17 06:30 Problem List - Problems (1) Acute on chronic respiratory failure with hypoxia and hypercapnia Assessment/Plan: Cont nebulizers/IV steroids Cont IV zithro/ceftriaxone Code(s): J96.21 - ACUTE AND CHRONIC RESPIRATORY FAILURE WITH HYPOXIA; J96.22 - ACUTE AND CHRONIC RESPIRATORY FAILURE WITH HYPERCAPNIA (2) Influenza Assessment/Plan: Cont tamiflu Code(s): J11.1 - FLU DUE TO UNIDENTIFIED INFLUENZA VIRUS W OTH RESP MANIFEST (3) Anemia Assessment/Plan: S/P transfusion 2 units PRBC's Monitor H/H Cont feosol Code(s): D64.9 - ANEMIA, UNSPECIFIED Qualifiers: Anemia type: unspecified type Qualified Code(s): D64.9 - Anemia, unspecified (4) COPD exacerbation Assessment/Plan: Cont nebulizers Cont IV solumedrol Cont symbicort/spireva Code(s): J44.1 - CHRONIC OBSTRUCTIVE PULMONARY DISEASE W (ACUTE) EXACERBATION (5) Chronic diastolic (congestive) heart failure Code(s): I50.32 - CHRONIC DIASTOLIC (CONGESTIVE) HEART FAILURE (6) HLD (hyperlipidemia) Code(s): E78.5 - HYPERLIPIDEMIA, UNSPECIFIED (7) Hypertension Code(s): I10 - ESSENTIAL (PRIMARY) HYPERTENSION (8) Morbid obesity Code(s): E66.01 - MORBID (SEVERE) OBESITY DUE TO EXCESS CALORIES (9) CKD (chronic kidney disease) Code(s): N18.9 - CHRONIC KIDNEY DISEASE, UNSPECIFIED (10) Diabetes Code(s): E11.9 - TYPE 2 DIABETES MELLITUS WITHOUT COMPLICATIONS (11) GERD (gastroesophageal reflux disease) Code(s): K21.9 - GASTRO-ESOPHAGEAL REFLUX DISEASE WITHOUT ESOPHAGITIS
[2017-11-28] MEDS: methylPREDNISolone NA SUCC 40 MG/1 ML VIAL IVPUSH SCH ×3 (02:55→18:18)
[2017-11-28] MEDS: ALBUTEROL SO4 0.083% IH SOL 2.5 MG/3 ML VIAL.NEB. NEB PRN ×2 (04:08→08:15)
[2017-11-28] MEDS: FUROSEMIDE 40 MG/4 ML INJECTABLE VIAL IVPUSH SCH ×2 (06:19→13:43)
[2017-11-28 07:59] LABS: ALBUMIN 3.3 g/dl (3.4-5.0); BLOOD UREA NITROGEN 32 mg/dL (7-18); CALCIUM 8.6 mg/dL (8.5-10.1); CHLORIDE 89 mmol/L (98-107); GLUCOSE,RANDOM 198 mg/dL (74-106); MAGNESIUM 1.7 mg/dL (1.8-2.4); POTASSIUM 3.4 mmol/L (3.5-5.1); PROTHROMBIN TIME (PATIENT) 52.6 SEC (9.98-11.88); SODIUM 142 mmol/L (136-145)
[2017-11-28 08:02] LABS: ALK PHOS 51 U/L (45-117); BILIRUBIN,TOTAL 0.5 mg/dL (0.2-1.0); CREATININE 1.4 mg/dL (0.55-1.02); PHOSPHOROUS 2.6 mg/dL (2.5-4.9); SGOT/AST 33 U/L (15-37); SGPT/ALT 33 U/L (12-78); TOT PROT 5.9 g/dl (6.4-8.2)
[2017-11-28 08:25] LABS: INR 4.65 (0.82-1.09)
[2017-11-28 09:17] LABS: HEMOGLOBIN 10.8 GM/dL (10.7-15.3); MCH 24.1 pg (25.7-33.7); MCHC 28.5 g/dl (32.0-36.0); MEAN CELL VOLUME 84.5 fl (80-96); MEAN PLT VOLUME 8.8 fl (7.5-11.1); PLATELET COUNT 180 K/MM3 (134-434); RBC 4.49 M/mm3 (3.60-5.2); RDW 16.4 % (11.6-15.6)
[2017-11-28 09:18] LABS: ANION GAP 6 (8-16); CO2 47 mmol/L (21-32)
--- NOTE | 2017-11-28 09:19 | PN ---
Progress Note, Physician Chief Complaint: Transferred out of ICU to tele TELE: NSR, sinus tach and a short self limited run of paroxysmal AFIB Labs reviewed: Mg2+, K+ are slightly low; INR is bit high - Current Medication List Current Medications: Active Medications Albuterol Sulfate (Ventolin 0.083% Nebulizer Soln -) 1 amp NEB Q4H PRN PRN Reason: SHORT OF BREATH/WHEEZING Last Admin: 11/28/17 04:08 Dose: 1 amp Budesonide/Formoterol Fumarate (Symbicort 160/4.5mcg -) 2 puff IH BID [facility] Last Admin: 11/27/17 22:47 Dose: 2 puff Ferrous Sulfate (Feosol -) 325 mg PO TIDCM [facility] Last Admin: 11/27/17 17:13 Dose: 325 mg Furosemide (Lasix Injection -) 40 mg IVPUSH BID@0600,1400 [facility] Last Admin: 11/28/17 06:19 Dose: 40 mg Guaifenesin (Robitussin -) 10 ml PO Q6H PRN PRN Reason: COUGH CEFTRIAXONE 1 G/50 ML PREMIX (Ceftriaxone 1 Gm-D5w Bag) 50 mls @ 100 mls/hr IVPB DAILY [facility] Last Admin: 11/27/17 09:41 Dose: 100 mls/hr Methylprednisolone Sodium Succinate (Solu-Medrol -) 20 mg IVPUSH Q8H-IV [facility] Last Admin: 11/28/17 02:55 Dose: 20 mg Nifedipine (Procardia Xl -) 30 mg PO DAILY [facility] Last Admin: 11/27/17 09:41 Dose: 30 mg Oseltamivir Phosphate (Tamiflu -) 75 mg PO BID [facility] Stop: 11/29/17 11:59 Last Admin: 11/27/17 22:48 Dose: 75 mg Pantoprazole Sodium (Protonix -) 40 mg PO DAILY [facility] Last Admin: 11/27/17 09:41 Dose: 40 mg Polyethylene Glycol (Miralax (For Daily Use) -) 17 gm PO DAILY [facility] Last Admin: 11/27/17 09:53 Dose: Not Given Rosuvastatin Calcium (Crestor -) 10 mg PO HS [facility] Last Admin: 11/27/17 22:48 Dose: 10 mg Senna (Senna -) 2 tab PO HS [facility] Last Admin: 11/27/17 22:49 Dose: 2 tab Tiotropium [place] (Spiriva -) 1 puff IH DAILY [facility] Last Admin: 11/27/17 09:43 Dose: 1 inh Valsartan (Diovan -) 160 mg PO DAILY [facility] Last Admin: 11/27/17 09:41 Dose: 160 mg Warfarin Sodium (Coumadin -) 1 mg PO DAILY@1800 [facility] Last Admin: 11/27/17 17:13 Dose: 1 mg - Objective Vital Signs: Vital Signs Temperature 98 F 11/28/17 06:00 Pulse Rate 104 H 11/28/17 06:00 Respiratory Rate 18 11/28/17 06:00 Blood Pressure 131/61 11/28/17 06:00 O2 Sat by Pulse Oximetry (%) 92 L 11/27/17 21:00 Constitutional: Yes: Calm Eyes: Yes: Conjunctiva Clear Cardiovascular: Yes: Regular Rate and Rhythm Respiratory: Yes: Other (decreased breath sounds bilaterally, no wheezing. No rales.) Gastrointestinal: Yes: Soft, Abdomen, Obese Edema: No Neurological: Yes: Alert, Oriented ...Motor Strength: WNL Labs: CBC, BMP 11/28/17 05:18 INR, PTT INR 4.65 (0.82-1.09) H* 11/28/17 05:18 Laboratory Tests 11/28/17 11/28/17 11/28/17 05:18 05:18 05:18 WBC Pending RBC Pending Hgb Pending Hct Pending Plt Count Pending Neutrophils % Pending INR 4.65 H* Sodium 142 Potassium 3.4 L Anion Gap 6 L Creatinine 1.4 H Magnesium 1.7 L - ....Imaging EKG: Image Reviewed Problem List - Problems (1) Respiratory distress Code(s): R06.03 - ACUTE RESPIRATORY DISTRESS (2) Acute exacerbation of chronic bronchitis Code(s): J20.9 - ACUTE BRONCHITIS, UNSPECIFIED; J42 - UNSPECIFIED CHRONIC BRONCHITIS (3) Acute on chronic respiratory failure with hypoxia and hypercapnia Code(s): J96.21 - ACUTE AND CHRONIC RESPIRATORY FAILURE WITH HYPOXIA; J96.22 - ACUTE AND CHRONIC RESPIRATORY FAILURE WITH HYPERCAPNIA (4) Anemia Code(s): D64.9 - ANEMIA, UNSPECIFIED Qualifiers: Anemia type: unspecified type Qualified Code(s): D64.9 - Anemia, unspecified (5) CHF (congestive heart failure) Code(s): I50.9 - HEART FAILURE, UNSPECIFIED Qualifiers: Congestive heart failure type: diastolic Congestive heart failure chronicity: acute on chronic Qualified Code(s): I50.33 - Acute on chronic diastolic (congestive) heart failure Assessment/Plan IMP: Influenza + Chronic COPD, with acute exacerbation triggered by viral illness History of Pulmonary Embolism on Coumadin PAF Hypokalemia Hypomagnesemia Elevated INR REC: 1. Replete K+ and Mg2+ 2. Hold coumadin 3. Pulmonary following, steroids/nebs/supplimental O2. Received Tamiflu
--- NOTE | 2017-11-28 09:46 | PN ---
Progress Note, Physician History of Present Illness: Pt seen and examined. Notes,labs, imaging results reviewed. Pt is currently alert, transferred out of ICU. States she is feeling better, less short of breath. No fever/chills. On O2 NC. - Current Medication List Current Medications: Active Medications Albuterol Sulfate (Ventolin 0.083% Nebulizer Soln -) 1 amp NEB Q4H PRN PRN Reason: SHORT OF BREATH/WHEEZING Last Admin: 11/28/17 04:08 Dose: 1 amp Budesonide/Formoterol Fumarate (Symbicort 160/4.5mcg -) 2 puff IH BID [facility] Last Admin: 11/27/17 22:47 Dose: 2 puff Ferrous Sulfate (Feosol -) 325 mg PO TIDCM [facility] Last Admin: 11/27/17 17:13 Dose: 325 mg Furosemide (Lasix Injection -) 40 mg IVPUSH BID@0600,1400 [facility] Last Admin: 11/28/17 06:19 Dose: 40 mg Guaifenesin (Robitussin -) 10 ml PO Q6H PRN PRN Reason: COUGH CEFTRIAXONE 1 G/50 ML PREMIX (Ceftriaxone 1 Gm-D5w Bag) 50 mls @ 100 mls/hr IVPB DAILY [facility] Last Admin: 11/27/17 09:41 Dose: 100 mls/hr Magnesium Oxide (Mag-Ox -) 400 mg PO BID [facility] Stop: 11/30/17 09:59 Methylprednisolone Sodium Succinate (Solu-Medrol -) 20 mg IVPUSH Q8H-IV [facility] Last Admin: 11/28/17 02:55 Dose: 20 mg Nifedipine (Procardia Xl -) 30 mg PO DAILY [facility] Last Admin: 11/27/17 09:41 Dose: 30 mg Oseltamivir Phosphate (Tamiflu -) 75 mg PO BID [facility] Stop: 11/29/17 11:59 Last Admin: 11/27/17 22:48 Dose: 75 mg Pantoprazole Sodium (Protonix -) 40 mg PO DAILY [facility] Last Admin: 11/27/17 09:41 Dose: 40 mg Polyethylene Glycol (Miralax (For Daily Use) -) 17 gm PO DAILY [facility] Last Admin: 11/27/17 09:53 Dose: Not Given Potassium Chloride (K-Dur -) 40 meq PO DAILY [facility] Rosuvastatin Calcium (Crestor -) 10 mg PO HS [facility] Last Admin: 11/27/17 22:48 Dose: 10 mg Senna (Senna -) 2 tab PO HS [facility] Last Admin: 11/27/17 22:49 Dose: 2 tab Tiotropium [place] (Spiriva -) 1 puff IH DAILY [facility] Last Admin: 11/27/17 09:43 Dose: 1 inh Valsartan (Diovan -) 160 mg PO DAILY [facility] Last Admin: 11/27/17 09:41 Dose: 160 mg - Objective Vital Signs: Vital Signs Temperature 98 F 11/28/17 06:00 Pulse Rate 104 H 11/28/17 06:00 Respiratory Rate 18 11/28/17 06:00 Blood Pressure 131/61 11/28/17 06:00 O2 Sat by Pulse Oximetry (%) 92 L 11/27/17 21:00 Constitutional: Yes: No Distress, Calm HENT: Yes: WNL Neck: Yes: WNL Cardiovascular: Yes: Tachycardia Respiratory: Yes: Wheezes (mild, expiratory) Gastrointestinal: Yes: Normal Bowel Sounds, Soft Genitourinary: Yes: WNL Extremities: Yes: WNL Neurological: Yes: Alert, Oriented Labs: CBC, BMP 11/28/17 05:18 11/28/17 05:18 INR, PTT INR 4.65 (0.82-1.09) H* 11/28/17 05:18 - ....Imaging Chest X-ray: Report Reviewed Problem List - Problems (1) Influenza Code(s): J11.1 - FLU DUE TO UNIDENTIFIED INFLUENZA VIRUS W OTH RESP MANIFEST (2) Respiratory distress Code(s): R06.03 - ACUTE RESPIRATORY DISTRESS (3) Acute exacerbation of chronic bronchitis Code(s): J20.9 - ACUTE BRONCHITIS, UNSPECIFIED; J42 - UNSPECIFIED CHRONIC BRONCHITIS (4) Acute on chronic respiratory failure with hypoxia and hypercapnia Code(s): J96.21 - ACUTE AND CHRONIC RESPIRATORY FAILURE WITH HYPOXIA; J96.22 - ACUTE AND CHRONIC RESPIRATORY FAILURE WITH HYPERCAPNIA (5) Anemia Code(s): D64.9 - ANEMIA, UNSPECIFIED Qualifiers: Anemia type: unspecified type Qualified Code(s): D64.9 - Anemia, unspecified (6) CHF (congestive heart failure) Code(s): I50.9 - HEART FAILURE, UNSPECIFIED Qualifiers: Congestive heart failure type: diastolic Congestive heart failure chronicity: acute on chronic Qualified Code(s): I50.33 - Acute on chronic diastolic (congestive) heart failure (7) Chronic diastolic (congestive) heart failure Code(s): I50.32 - CHRONIC DIASTOLIC (CONGESTIVE) HEART FAILURE (8) Coronary artery disease Code(s): I25.10 - ATHSCL HEART DISEASE OF [place] CORONARY ARTERY W/O ANG PCTRS (9) DVT (deep venous thrombosis) Code(s): I82.409 - ACUTE EMBOLISM AND THOMBOS UNSP DEEP VN UNSP LOWER EXTREMITY (10) History of pulmonary embolism Code(s): Z86.711 - PERSONAL HISTORY OF PULMONARY EMBOLISM (11) Morbid obesity Code(s): E66.01 - MORBID (SEVERE) OBESITY DUE TO EXCESS CALORIES (12) Urinary tract infection Code(s): N39.0 - URINARY TRACT INFECTION, SITE NOT SPECIFIED Assessment/Plan Pt appears to be improving - continue ceftriaxone - d/c tamiflu after today's doses - continue monitor wbc trend, on steroids - monitor vitals closely
[2017-11-28] MEDS ORDERED: PT OWN MED DRAWER 7, Y5N ONE ×2 (10:51→21:23)
[2017-11-28] MEDS: POTASSIUM CHLORIDE TABS 20 MEQ TABLET.ER (FP) PO SCH (11:14)
[2017-11-28] MEDS: FERROUS SO4 325 MG TABLET (FP) PO SCH ×3 (11:14→18:18)
[2017-11-28] MEDS: CEFTRIAXONE 1 G/50 ML PREMIX 50 ML IVPB SCH (11:14)
[2017-11-28] MEDS: MAGNESIUM OXIDE 400 MG TABLET (FP) PO SCH ×2 (11:14→22:02)
[2017-11-28] MEDS: VALSARTAN 160 MG TABLET (UD) PO SCH (11:14)
[2017-11-28] MEDS: PANTOPRAZOLE 40 MG TABLET (FP) PO SCH (11:15)
[2017-11-28] MEDS: TIOTROPIUM BROMIDE 18 MCG/INH (DEVICE W/ 5 CAPSULES) IH SCH (11:15)
[2017-11-28] MEDS: BUDESONIDE/FORMETEROL FUMARATE 160/4.5 mcg INHALER IH SCH ×2 (11:15→22:04)
[2017-11-28] MEDS: NIFEdipine E.R. 30 MG TABLET (FP) PO SCH (11:15)
[2017-11-28] MEDS: OSELTAMIVIR PHOSPHATE 75 MG CAPSULE PO SCH ×2 (11:16→22:03)
[2017-11-28] MEDS: POLYETHYLENE GLYCOL 3350 119 GM BTL PO SCH (11:27)
[2017-11-28 11:43] LABS: PLATELET ESTIMATE ADEQUATE
--- NOTE | 2017-11-28 13:09 | PN ---
Progress Note (short form) - Note Progress Note: PULMONARY Breathing slightly better but still with cough, wheezing and chest tightness. Last Vital Signs Temp Pulse Resp BP Pulse Ox 98 F 104 H 18 131/61 92 L 11/28/17 06:00 11/28/17 06:00 11/28/17 06:00 11/28/17 06:00 11/27/17 21:00 Gen: tachypneic at rest Heart: tachycardic, regular Lung: bilateral rhonchi, wheezes Abd: soft, nontender Ext: no edema CBC, BMP 11/28/17 05:18 11/28/17 05:18 Active Medications Albuterol Sulfate (Ventolin 0.083% Nebulizer Soln -) 1 amp NEB Q4H PRN PRN Reason: SHORT OF BREATH/WHEEZING Last Admin: 11/28/17 08:15 Dose: 1 amp Budesonide/Formoterol Fumarate (Symbicort 160/4.5mcg -) 2 puff IH BID [facility] Last Admin: 11/28/17 11:15 Dose: 2 puff Ferrous Sulfate (Feosol -) 325 mg PO TIDCM [facility] Last Admin: 11/28/17 11:14 Dose: 325 mg Furosemide (Lasix Injection -) 40 mg IVPUSH BID@0600,1400 [facility] Last Admin: 11/28/17 06:19 Dose: 40 mg Guaifenesin (Robitussin -) 10 ml PO Q6H PRN PRN Reason: COUGH CEFTRIAXONE 1 G/50 ML PREMIX (Ceftriaxone 1 Gm-D5w Bag) 50 mls @ 100 mls/hr IVPB DAILY [facility] Last Admin: 11/28/17 11:14 Dose: 100 mls/hr Magnesium Oxide (Mag-Ox -) 400 mg PO BID [facility] Stop: 11/30/17 09:59 Last Admin: 11/28/17 11:14 Dose: 400 mg Methylprednisolone Sodium Succinate (Solu-Medrol -) 20 mg IVPUSH Q8H-IV [facility] Last Admin: 11/28/17 11:15 Dose: 20 mg Nifedipine (Procardia Xl -) 30 mg PO DAILY [facility] Last Admin: 11/28/17 11:15 Dose: 30 mg Oseltamivir Phosphate (Tamiflu -) 75 mg PO BID [facility] Stop: 11/29/17 11:59 Last Admin: 11/28/17 11:16 Dose: 75 mg Pantoprazole Sodium (Protonix -) 40 mg PO DAILY [facility] Last Admin: 11/28/17 11:15 Dose: 40 mg Polyethylene Glycol (Miralax (For Daily Use) -) 17 gm PO DAILY [facility] Last Admin: 11/28/17 11:27 Dose: Not Given Potassium Chloride (K-Dur -) 40 meq PO DAILY [facility] Last Admin: 11/28/17 11:14 Dose: 40 meq Rosuvastatin Calcium (Crestor -) 10 mg PO HS [facility] Last Admin: 11/27/17 22:48 Dose: 10 mg Senna (Senna -) 2 tab PO HS [facility] Last Admin: 11/27/17 22:49 Dose: 2 tab Tiotropium [place] (Spiriva -) 1 puff IH DAILY [facility] Last Admin: 11/28/17 11:15 Dose: 1 inh Valsartan (Diovan -) 160 mg PO DAILY [facility] Last Admin: 11/28/17 11:14 Dose: 160 mg A/P Acute on Chronic Hypoxic and Hypercapneic Respiratory Failure improving Influenza A Acute COPD Exacerbation LV Diastolic Dysfunction h/o PE h/o CVA DM CKD Anemia - continue tamiflu - continue empiric antibiotics - continue medrol at current dose - inhaled bronchodilators standing and PRN - continue IV lasix - monitor urine output, creatinine - monitor H/H - transfuse as needed - O2 to keep SpO2 >90% - BiPAP if pt allows - continue anticoagulation
[2017-11-28] MEDS: SENNOSIDES 8.6MG TABLET (FP) PO SCH (22:02)
[2017-11-28] MEDS: ROSUVASTATIN CA 10 MG TABLET (FP) PO SCH (22:03)
--- NOTE | 2017-11-28 22:16 | PN ---
Progress Note, Physician History of Present Illness: No new complaints - Current Medication List Current Medications: Active Medications Albuterol Sulfate (Ventolin 0.083% Nebulizer Soln -) 1 amp NEB Q4H PRN PRN Reason: SHORT OF BREATH/WHEEZING Last Admin: 11/28/17 08:15 Dose: 1 amp Budesonide/Formoterol Fumarate (Symbicort 160/4.5mcg -) 2 puff IH BID [facility] Last Admin: 11/28/17 22:04 Dose: 2 puff Ferrous Sulfate (Feosol -) 325 mg PO TIDCM [facility] Last Admin: 11/28/17 18:18 Dose: 325 mg Furosemide (Lasix Injection -) 40 mg IVPUSH BID@0600,1400 [facility] Last Admin: 11/28/17 13:43 Dose: 40 mg Guaifenesin (Robitussin -) 10 ml PO Q6H PRN PRN Reason: COUGH CEFTRIAXONE 1 G/50 ML PREMIX (Ceftriaxone 1 Gm-D5w Bag) 50 mls @ 100 mls/hr IVPB DAILY [facility] Last Admin: 11/28/17 11:14 Dose: 100 mls/hr Magnesium Oxide (Mag-Ox -) 400 mg PO BID [facility] Stop: 11/30/17 09:59 Last Admin: 11/28/17 22:02 Dose: 400 mg Methylprednisolone Sodium Succinate (Solu-Medrol -) 20 mg IVPUSH Q8H-IV [facility] Last Admin: 11/28/17 18:18 Dose: 20 mg Nifedipine (Procardia Xl -) 30 mg PO DAILY [facility] Last Admin: 11/28/17 11:15 Dose: 30 mg Oseltamivir Phosphate (Tamiflu -) 75 mg PO BID [facility] Stop: 11/29/17 11:59 Last Admin: 11/28/17 22:03 Dose: 75 mg Pantoprazole Sodium (Protonix -) 40 mg PO DAILY [facility] Last Admin: 11/28/17 11:15 Dose: 40 mg Polyethylene Glycol (Miralax (For Daily Use) -) 17 gm PO DAILY [facility] Last Admin: 11/28/17 11:27 Dose: Not Given Potassium Chloride (K-Dur -) 40 meq PO DAILY [facility] Last Admin: 11/28/17 11:14 Dose: 40 meq Rosuvastatin Calcium (Crestor -) 10 mg PO HS [facility] Last Admin: 11/28/17 22:03 Dose: 10 mg Senna (Senna -) 2 tab PO HS [facility] Last Admin: 11/28/17 22:02 Dose: 2 tab Tiotropium [place] (Spiriva -) 1 puff IH DAILY [facility] Last Admin: 11/28/17 11:15 Dose: 1 inh Valsartan (Diovan -) 160 mg PO DAILY [facility] Last Admin: 11/28/17 11:14 Dose: 160 mg - Objective Vital Signs: Vital Signs Temperature 98.8 F 11/28/17 17:30 Pulse Rate 104 H 11/28/17 17:30 Respiratory Rate 18 11/28/17 17:30 Blood Pressure 118/90 11/28/17 17:30 O2 Sat by Pulse Oximetry (%) 100 11/28/17 16:50 Constitutional: Yes: Well Nourished, Obese HENT: Yes: WNL Neck: Yes: WNL, Supple Cardiovascular: Yes: WNL, Regular Rate and Rhythm Respiratory: Yes: Diminished Gastrointestinal: Yes: WNL, Normal Bowel Sounds, Soft, Abdomen, Obese Edema: No Labs: CBC, BMP 11/28/17 05:18 11/28/17 05:18 INR, PTT INR 4.65 (0.82-1.09) H* 11/28/17 05:18 Problem List - Problems (1) Influenza Code(s): J11.1 - FLU DUE TO UNIDENTIFIED INFLUENZA VIRUS W OTH RESP MANIFEST (2) Acute on chronic respiratory failure with hypoxia and hypercapnia Code(s): J96.21 - ACUTE AND CHRONIC RESPIRATORY FAILURE WITH HYPOXIA; J96.22 - ACUTE AND CHRONIC RESPIRATORY FAILURE WITH HYPERCAPNIA (3) CKD (chronic kidney disease) Code(s): N18.9 - CHRONIC KIDNEY DISEASE, UNSPECIFIED (4) Diabetes Code(s): E11.9 - TYPE 2 DIABETES MELLITUS WITHOUT COMPLICATIONS (5) GERD (gastroesophageal reflux disease) Code(s): K21.9 - GASTRO-ESOPHAGEAL REFLUX DISEASE WITHOUT ESOPHAGITIS (6) Anemia Code(s): D64.9 - ANEMIA, UNSPECIFIED Qualifiers: Anemia type: unspecified type Qualified Code(s): D64.9 - Anemia, unspecified (7) Chronic diastolic (congestive) heart failure Code(s): I50.32 - CHRONIC DIASTOLIC (CONGESTIVE) HEART FAILURE (8) HLD (hyperlipidemia) Code(s): E78.5 - HYPERLIPIDEMIA, UNSPECIFIED (9) History of pulmonary embolism Code(s): Z86.711 - PERSONAL HISTORY OF PULMONARY EMBOLISM (10) Hypertension Code(s): I10 - ESSENTIAL (PRIMARY) HYPERTENSION
[2017-11-28] MEDS ORDERED: INSULIN (NOVOLOG) ASPART 100 UNITS/ML 10ML VIAL ONE (22:27)
[2017-11-29] MEDS: methylPREDNISolone NA SUCC 40 MG/1 ML VIAL IVPUSH SCH ×3 (01:44→18:14)
[2017-11-29] MEDS: FUROSEMIDE 40 MG/4 ML INJECTABLE VIAL IVPUSH SCH ×2 (05:26→14:41)
[2017-11-29 07:40] LABS: PROTHROMBIN TIME (PATIENT) 62.4 SEC (9.98-11.88)
[2017-11-29 07:45] LABS: INR 5.52 (0.82-1.09)
[2017-11-29 07:52] LABS: CHLORIDE 89 mmol/L (98-107); POTASSIUM 3.9 mmol/L (3.5-5.1); SODIUM 142 mmol/L (136-145)
[2017-11-29 08:19] LABS: ANION GAP 11 (8-16); BLOOD UREA NITROGEN 30 mg/dL (7-18); CALCIUM 8.5 mg/dL (8.5-10.1); CO2 42 mmol/L (21-32); CREATININE 1.3 mg/dL (0.55-1.02); GLUCOSE,RANDOM 229 mg/dL (74-106)
[2017-11-29 08:55] LABS: BASO % 0.2 % (0-2.0); LYMPH % 5.6 % (8-40); MCHC 28.5 g/dl (32.0-36.0); MEAN CELL VOLUME 84.1 fl (80-96); MEAN PLT VOLUME 9.2 fl (7.5-11.1); MONO % 5.8 % (3.8-10.2); NEUT % 88.4 % (42.8-82.8); PLATELET COUNT 162 K/MM3 (134-434); RBC 4.15 M/mm3 (3.60-5.2); RDW 16.8 % (11.6-15.6); WHITE BLOOD COUNT 14.6 K/mm3 (4.0-10.0)
[2017-11-29 09:16] LABS: HEMATOCRIT 34.6 % (32.4-45.2)
--- NOTE | 2017-11-29 09:41 | PN ---
Progress Note, Physician Chief Complaint: feeling better INR continues to rise despite holding coumadin [place] better with repletion - Current Medication List Current Medications: Active Medications Albuterol Sulfate (Ventolin 0.083% Nebulizer Soln -) 1 amp NEB Q4H PRN PRN Reason: SHORT OF BREATH/WHEEZING Last Admin: 11/28/17 08:15 Dose: 1 amp Budesonide/Formoterol Fumarate (Symbicort 160/4.5mcg -) 2 puff IH BID [facility] Last Admin: 11/28/17 22:04 Dose: 2 puff Ferrous Sulfate (Feosol -) 325 mg PO TIDCM [facility] Last Admin: 11/28/17 18:18 Dose: 325 mg Furosemide (Lasix Injection -) 40 mg IVPUSH BID@0600,1400 [facility] Last Admin: 11/29/17 05:26 Dose: 40 mg Guaifenesin (Robitussin -) 10 ml PO Q6H PRN PRN Reason: COUGH CEFTRIAXONE 1 G/50 ML PREMIX (Ceftriaxone 1 Gm-D5w Bag) 50 mls @ 100 mls/hr IVPB DAILY [facility] Last Admin: 11/28/17 11:14 Dose: 100 mls/hr Magnesium Oxide (Mag-Ox -) 400 mg PO BID [facility] Stop: 11/30/17 09:59 Last Admin: 11/28/17 22:02 Dose: 400 mg Methylprednisolone Sodium Succinate (Solu-Medrol -) 20 mg IVPUSH Q8H-IV [facility] Last Admin: 11/29/17 01:44 Dose: 20 mg Nifedipine (Procardia Xl -) 30 mg PO DAILY [facility] Last Admin: 11/28/17 11:15 Dose: 30 mg Oseltamivir Phosphate (Tamiflu -) 75 mg PO BID [facility] Stop: 11/29/17 11:59 Last Admin: 11/28/17 22:03 Dose: 75 mg Pantoprazole Sodium (Protonix -) 40 mg PO DAILY [facility] Last Admin: 11/28/17 11:15 Dose: 40 mg Polyethylene Glycol (Miralax (For Daily Use) -) 17 gm PO DAILY [facility] Last Admin: 11/28/17 11:27 Dose: Not Given Potassium Chloride (K-Dur -) 40 meq PO DAILY [facility] Last Admin: 11/28/17 11:14 Dose: 40 meq Rosuvastatin Calcium (Crestor -) 10 mg PO HS [facility] Last Admin: 11/28/17 22:03 Dose: 10 mg Senna (Senna -) 2 tab PO HS [facility] Last Admin: 11/28/17 22:02 Dose: 2 tab Tiotropium [place] (Spiriva -) 1 puff IH DAILY [facility] Last Admin: 11/28/17 11:15 Dose: 1 inh Valsartan (Diovan -) 160 mg PO DAILY [facility] Last Admin: 11/28/17 11:14 Dose: 160 mg - Objective Vital Signs: Vital Signs Temperature 98.7 F 11/29/17 06:00 Pulse Rate 91 H 11/29/17 06:00 Respiratory Rate 18 11/29/17 06:00 Blood Pressure 109/68 11/29/17 06:00 O2 Sat by Pulse Oximetry (%) 98 11/29/17 06:19 Constitutional: Yes: No Distress, Calm Eyes: Yes: Conjunctiva Clear Cardiovascular: Yes: Pulse Irregular Respiratory: Yes: Other (decreased breath sounds b/l c/w COPD, no active wheezing nor rales) Gastrointestinal: Yes: Soft, Abdomen, Obese Edema: No Neurological: Yes: Alert, Oriented Labs: CBC, BMP 11/29/17 05:18 11/29/17 05:18 INR, PTT INR 5.52 (0.82-1.09) H* 11/29/17 05:18 - ....Imaging EKG: Image Reviewed Problem List - Problems (1) Respiratory distress Code(s): R06.03 - ACUTE RESPIRATORY DISTRESS (2) Acute exacerbation of chronic bronchitis Code(s): J20.9 - ACUTE BRONCHITIS, UNSPECIFIED; J42 - UNSPECIFIED CHRONIC BRONCHITIS (3) Acute on chronic respiratory failure with hypoxia and hypercapnia Code(s): J96.21 - ACUTE AND CHRONIC RESPIRATORY FAILURE WITH HYPOXIA; J96.22 - ACUTE AND CHRONIC RESPIRATORY FAILURE WITH HYPERCAPNIA (4) Anemia Code(s): D64.9 - ANEMIA, UNSPECIFIED Qualifiers: Anemia type: unspecified type Qualified Code(s): D64.9 - Anemia, unspecified (5) CHF (congestive heart failure) Code(s): I50.9 - HEART FAILURE, UNSPECIFIED Qualifiers: Congestive heart failure type: diastolic Congestive heart failure chronicity: acute on chronic Qualified Code(s): I50.33 - Acute on chronic diastolic (congestive) heart failure Assessment/Plan IMP: Influenza + Chronic COPD, with acute exacerbation triggered by viral illness History of Pulmonary Embolism on Coumadin PAF Hypokalemia Hypomagnesemia Elevated INR REC: 1. Repleted K+ and Mg2+, improved 2. Hold coumadin, low dose oral vitamin K 3. Pulmonary following, steroids/nebs/supplimental O2. Received Tamiflu
[2017-11-29] MEDS ORDERED: PHYTONADIONE 5 MG TABLET PO ONE (10:30)
[2017-11-29] MEDS: CEFTRIAXONE 1 G/50 ML PREMIX 50 ML IVPB SCH (10:44)
[2017-11-29] MEDS: FERROUS SO4 325 MG TABLET (FP) PO SCH ×3 (10:44→18:14)
[2017-11-29] MEDS: POLYETHYLENE GLYCOL 3350 119 GM BTL PO SCH (10:45)
[2017-11-29] MEDS: POTASSIUM CHLORIDE TABS 20 MEQ TABLET.ER (FP) PO SCH (10:45)
[2017-11-29] MEDS: VALSARTAN 160 MG TABLET (UD) PO SCH (10:45)
[2017-11-29] MEDS: MAGNESIUM OXIDE 400 MG TABLET (FP) PO SCH ×2 (10:45→22:41)
[2017-11-29] MEDS: BUDESONIDE/FORMETEROL FUMARATE 160/4.5 mcg INHALER IH SCH ×2 (10:46→22:40)
[2017-11-29] MEDS: NIFEdipine E.R. 30 MG TABLET (FP) PO SCH (10:46)
[2017-11-29] MEDS: PANTOPRAZOLE 40 MG TABLET (FP) PO SCH (10:46)
[2017-11-29] MEDS: TIOTROPIUM BROMIDE 18 MCG/INH (DEVICE W/ 5 CAPSULES) IH SCH (10:46)
[2017-11-29] MEDS: OSELTAMIVIR PHOSPHATE 75 MG CAPSULE PO SCH (10:47)
[2017-11-29] MEDS: ALBUTEROL SO4 0.083% IH SOL 2.5 MG/3 ML VIAL.NEB. NEB PRN ×2 (11:20→20:38)
--- NOTE | 2017-11-29 12:32 | PN ---
Progress Note (short form) - Note Progress Note: PULMONARY Breathing about the same, still with cough, wheezing and chest tightness. Last Vital Signs Temp Pulse Resp BP Pulse Ox 98.7 F 91 H 18 109/68 98 11/29/17 06:00 11/29/17 06:00 11/29/17 06:00 11/29/17 06:00 11/29/17 09:38 Intake & Output 11/26/17 11/27/17 11/28/17 11/29/17 23:59 23:59 23:59 23:59 Intake Total 700 1180 750 10 Balance 700 1180 750 10 Weight 125.673 kg 123.009 kg 125.464 kg 124.239 kg Gen: tachypneic at rest Heart: tachycardic, regular Lung: bilateral rhonchi, wheezes Abd: soft, nontender Ext: no edema CBC, BMP 11/29/17 05:18 11/29/17 05:18 Active Medications Albuterol Sulfate (Ventolin 0.083% Nebulizer Soln -) 1 amp NEB Q4H PRN PRN Reason: SHORT OF BREATH/WHEEZING Last Admin: 11/29/17 11:20 Dose: 1 amp Budesonide/Formoterol Fumarate (Symbicort 160/4.5mcg -) 2 puff IH BID [facility] Last Admin: 11/29/17 10:46 Dose: 2 puff Ferrous Sulfate (Feosol -) 325 mg PO TIDCM [facility] Last Admin: 11/29/17 11:42 Dose: 325 mg Furosemide (Lasix Injection -) 40 mg IVPUSH BID@0600,1400 [facility] Last Admin: 11/29/17 05:26 Dose: 40 mg Guaifenesin (Robitussin -) 10 ml PO Q6H PRN PRN Reason: COUGH CEFTRIAXONE 1 G/50 ML PREMIX (Ceftriaxone 1 Gm-D5w Bag) 50 mls @ 100 mls/hr IVPB DAILY [facility] Last Admin: 11/29/17 10:44 Dose: 100 mls/hr Magnesium Oxide (Mag-Ox -) 400 mg PO BID [facility] Stop: 11/30/17 09:59 Last Admin: 11/29/17 10:45 Dose: 400 mg Methylprednisolone Sodium Succinate (Solu-Medrol -) 20 mg IVPUSH Q8H-IV [facility] Last Admin: 11/29/17 10:46 Dose: 20 mg Nifedipine (Procardia Xl -) 30 mg PO DAILY [facility] Last Admin: 11/29/17 10:46 Dose: 30 mg Pantoprazole Sodium (Protonix -) 40 mg PO DAILY [facility] Last Admin: 11/29/17 10:46 Dose: 40 mg Polyethylene Glycol (Miralax (For Daily Use) -) 17 gm PO DAILY [facility] Last Admin: 11/29/17 10:45 Dose: Not Given Potassium Chloride (K-Dur -) 40 meq PO DAILY [facility] Last Admin: 11/29/17 10:45 Dose: 40 meq Rosuvastatin Calcium (Crestor -) 10 mg PO HS [facility] Last Admin: 11/28/17 22:03 Dose: 10 mg Senna (Senna -) 2 tab PO [facility] Last Admin: 11/28/17 22:02 Dose: 2 tab Tiotropium [place] (Spiriva -) 1 puff IH DAILY [facility] Last Admin: 11/29/17 10:46 Dose: 1 inh Valsartan (Diovan -) 160 mg PO DAILY [facility] Last Admin: 11/29/17 10:45 Dose: 160 mg A/P Acute on Chronic Hypoxic and Hypercapneic Respiratory Failure improving Influenza A Acute COPD Exacerbation LV Diastolic Dysfunction h/o PE h/o CVA DM CKD Anemia - completed tamiflu - continue empiric antibiotics - continue medrol at current dose - inhaled bronchodilators standing and PRN - continue IV lasix - monitor urine output, creatinine - monitor H/H - transfuse as needed - O2 to keep SpO2 >90% - BiPAP if pt allows - continue anticoagulation
--- NOTE | 2017-11-29 13:20 | PN ---
Progress Note, Physician History of Present Illness: Pt states she feels relatively well. Less shortness of breath. Remains afebrile. No new complaints. - Current Medication List Current Medications: Active Medications Albuterol Sulfate (Ventolin 0.083% Nebulizer Soln -) 1 amp NEB Q4H PRN PRN Reason: SHORT OF BREATH/WHEEZING Last Admin: 11/29/17 11:20 Dose: 1 amp Budesonide/Formoterol Fumarate (Symbicort 160/4.5mcg -) 2 puff IH BID [facility] Last Admin: 11/29/17 10:46 Dose: 2 puff Ferrous Sulfate (Feosol -) 325 mg PO TIDCM [facility] Last Admin: 11/29/17 11:42 Dose: 325 mg Furosemide (Lasix Injection -) 40 mg IVPUSH BID@0600,1400 [facility] Last Admin: 11/29/17 05:26 Dose: 40 mg Guaifenesin (Robitussin -) 10 ml PO Q6H PRN PRN Reason: COUGH CEFTRIAXONE 1 G/50 ML PREMIX (Ceftriaxone 1 Gm-D5w Bag) 50 mls @ 100 mls/hr IVPB DAILY [facility] Last Admin: 11/29/17 10:44 Dose: 100 mls/hr Magnesium Oxide (Mag-Ox -) 400 mg PO BID [facility] Stop: 11/30/17 09:59 Last Admin: 11/29/17 10:45 Dose: 400 mg Methylprednisolone Sodium Succinate (Solu-Medrol -) 20 mg IVPUSH Q8H-IV [facility] Last Admin: 11/29/17 10:46 Dose: 20 mg Nifedipine (Procardia Xl -) 30 mg PO DAILY [facility] Last Admin: 11/29/17 10:46 Dose: 30 mg Pantoprazole Sodium (Protonix -) 40 mg PO DAILY [facility] Last Admin: 11/29/17 10:46 Dose: 40 mg Polyethylene Glycol (Miralax (For Daily Use) -) 17 gm PO DAILY [facility] Last Admin: 11/29/17 10:45 Dose: Not Given Potassium Chloride (K-Dur -) 40 meq PO DAILY [facility] Last Admin: 11/29/17 10:45 Dose: 40 meq Rosuvastatin Calcium (Crestor -) 10 mg PO HS [facility] Last Admin: 11/28/17 22:03 Dose: 10 mg Senna (Senna -) 2 tab PO HS [facility] Last Admin: 11/28/17 22:02 Dose: 2 tab Tiotropium [place] (Spiriva -) 1 puff IH DAILY [facility] Last Admin: 11/29/17 10:46 Dose: 1 inh Valsartan (Diovan -) 160 mg PO DAILY [facility] Last Admin: 11/29/17 10:45 Dose: 160 mg - Objective Vital Signs: Vital Signs Temperature 98.4 F 11/29/17 10:00 Pulse Rate 90 11/29/17 10:00 Respiratory Rate 18 11/29/17 10:00 Blood Pressure 138/66 11/29/17 10:00 O2 Sat by Pulse Oximetry (%) 98 11/29/17 09:38 Constitutional: Yes: No Distress, Calm Cardiovascular: Yes: Regular Rate and Rhythm Respiratory: Yes: Wheezes (mild with deep inspiration) Gastrointestinal: Yes: Normal Bowel Sounds, Soft Genitourinary: Yes: WNL Neurological: Yes: Alert Labs: CBC, BMP 11/29/17 05:18 11/29/17 05:18 INR, PTT INR 5.52 (0.82-1.09) H* 11/29/17 05:18 Problem List - Problems (1) Influenza Code(s): J11.1 - FLU DUE TO UNIDENTIFIED INFLUENZA VIRUS W OTH RESP MANIFEST (2) Respiratory distress Code(s): R06.03 - ACUTE RESPIRATORY DISTRESS (3) Acute exacerbation of chronic bronchitis Code(s): J20.9 - ACUTE BRONCHITIS, UNSPECIFIED; J42 - UNSPECIFIED CHRONIC BRONCHITIS (4) Acute on chronic respiratory failure with hypoxia and hypercapnia Code(s): J96.21 - ACUTE AND CHRONIC RESPIRATORY FAILURE WITH HYPOXIA; J96.22 - ACUTE AND CHRONIC RESPIRATORY FAILURE WITH HYPERCAPNIA (5) Anemia Code(s): D64.9 - ANEMIA, UNSPECIFIED Qualifiers: Anemia type: unspecified type Qualified Code(s): D64.9 - Anemia, unspecified (6) CHF (congestive heart failure) Code(s): I50.9 - HEART FAILURE, UNSPECIFIED Qualifiers: Congestive heart failure type: diastolic Congestive heart failure chronicity: acute on chronic Qualified Code(s): I50.33 - Acute on chronic diastolic (congestive) heart failure (7) Chronic diastolic (congestive) heart failure Code(s): I50.32 - CHRONIC DIASTOLIC (CONGESTIVE) HEART FAILURE (8) Coronary artery disease Code(s): I25.10 - ATHSCL HEART DISEASE OF [place] CORONARY ARTERY W/O ANG PCTRS (9) DVT (deep venous thrombosis) Code(s): I82.409 - ACUTE EMBOLISM AND THOMBOS UNSP DEEP VN UNSP LOWER EXTREMITY (10) History of pulmonary embolism Code(s): Z86.711 - PERSONAL HISTORY OF PULMONARY EMBOLISM (11) Morbid obesity Code(s): E66.01 - MORBID (SEVERE) OBESITY DUE TO EXCESS CALORIES (12) Urinary tract infection Code(s): N39.0 - URINARY TRACT INFECTION, SITE NOT SPECIFIED Assessment/Plan Influenza A Klebsiella UTI COPD - continue ceftriaxone - completed course of tamiflu with resolution of symptoms - continue monitor wbc trend, on steroids, improving - monitor vitals closely
--- NOTE | 2017-11-29 20:02 | PN ---
Progress Note, Physician History of Present Illness: No new complaints - Current Medication List Current Medications: Active Medications Albuterol Sulfate (Ventolin 0.083% Nebulizer Soln -) 1 amp NEB Q4H PRN PRN Reason: SHORT OF BREATH/WHEEZING Last Admin: 11/29/17 11:20 Dose: 1 amp Budesonide/Formoterol Fumarate (Symbicort 160/4.5mcg -) 2 puff IH BID [facility] Last Admin: 11/29/17 10:46 Dose: 2 puff Ferrous Sulfate (Feosol -) 325 mg PO TIDCM [facility] Last Admin: 11/29/17 18:14 Dose: 325 mg Furosemide (Lasix Injection -) 40 mg IVPUSH BID@0600,1400 [facility] Last Admin: 11/29/17 14:41 Dose: 40 mg Guaifenesin (Robitussin -) 10 ml PO Q6H PRN PRN Reason: COUGH CEFTRIAXONE 1 G/50 ML PREMIX (Ceftriaxone 1 Gm-D5w Bag) 50 mls @ 100 mls/hr IVPB DAILY [facility] Last Admin: 11/29/17 10:44 Dose: 100 mls/hr Insulin Aspart (Novolog Vial Sliding Scale -) 1 vial SQ ACHS [facility] PRN Reason: Protocol Magnesium Oxide (Mag-Ox -) 400 mg PO BID [facility] Stop: 11/30/17 09:59 Last Admin: 11/29/17 10:45 Dose: 400 mg Methylprednisolone Sodium Succinate (Solu-Medrol -) 20 mg IVPUSH Q8H-IV [facility] Last Admin: 11/29/17 18:14 Dose: 20 mg Nifedipine (Procardia Xl -) 30 mg PO DAILY [facility] Last Admin: 11/29/17 10:46 Dose: 30 mg Pantoprazole Sodium (Protonix -) 40 mg PO DAILY [facility] Last Admin: 11/29/17 10:46 Dose: 40 mg Polyethylene Glycol (Miralax (For Daily Use) -) 17 gm PO DAILY [facility] Last Admin: 11/29/17 10:45 Dose: Not Given Potassium Chloride (K-Dur -) 40 meq PO DAILY [facility] Last Admin: 11/29/17 10:45 Dose: 40 meq Rosuvastatin Calcium (Crestor -) 10 mg PO HS [facility] Last Admin: 11/28/17 22:03 Dose: 10 mg Senna (Senna -) 2 tab PO HS [facility] Last Admin: 11/28/17 22:02 Dose: 2 tab Tiotropium [place] (Spiriva -) 1 puff IH DAILY [facility] Last Admin: 11/29/17 10:46 Dose: 1 inh Valsartan (Diovan -) 160 mg PO DAILY [facility] Last Admin: 11/29/17 10:45 Dose: 160 mg - Objective Vital Signs: Vital Signs Temperature 98.8 F 11/29/17 17:00 Pulse Rate 97 H 11/29/17 17:00 Respiratory Rate 18 11/29/17 17:00 Blood Pressure 111/66 11/29/17 17:00 O2 Sat by Pulse Oximetry (%) 97 11/29/17 18:32 Constitutional: Yes: Well Nourished, Obese HENT: Yes: WNL Neck: Yes: WNL, Supple Cardiovascular: Yes: WNL, Regular Rate and Rhythm Respiratory: Yes: Diminished Gastrointestinal: Yes: WNL, Normal Bowel Sounds, Soft, Abdomen, Obese Edema: Yes Labs: CBC, BMP 11/29/17 05:18 11/29/17 05:18 INR, PTT INR 5.52 (0.82-1.09) H* 11/29/17 05:18 Problem List - Problems (1) Influenza Assessment/Plan: Cont tamiflu Code(s): J11.1 - FLU DUE TO UNIDENTIFIED INFLUENZA VIRUS W OTH RESP MANIFEST (2) Acute on chronic respiratory failure with hypoxia and hypercapnia Assessment/Plan: Cont nebulizers/IV steroids Cont IV zithro/ceftriaxone Code(s): J96.21 - ACUTE AND CHRONIC RESPIRATORY FAILURE WITH HYPOXIA; J96.22 - ACUTE AND CHRONIC RESPIRATORY FAILURE WITH HYPERCAPNIA (3) COPD (chronic obstructive pulmonary disease) Assessment/Plan: Cont symbicort/spireva Code(s): J44.9 - CHRONIC OBSTRUCTIVE PULMONARY DISEASE, UNSPECIFIED (4) Anemia Assessment/Plan: S/P transfusion 2 units PRBC's Monitor H/H Cont feosol Code(s): D64.9 - ANEMIA, UNSPECIFIED Qualifiers: Anemia type: unspecified type Qualified Code(s): D64.9 - Anemia, unspecified (5) Chronic diastolic (congestive) heart failure Assessment/Plan: Cont IV lasix Monitor electrolytes Code(s): I50.32 - CHRONIC DIASTOLIC (CONGESTIVE) HEART FAILURE (6) History of pulmonary embolism Assessment/Plan: Coumadin on hold Vit K given monitor pt/inr Code(s): Z86.711 - PERSONAL HISTORY OF PULMONARY EMBOLISM (7) Hypertension Assessment/Plan: BP stable Cont diovan/procardia Code(s): I10 - ESSENTIAL (PRIMARY) HYPERTENSION (8) CKD (chronic kidney disease) Code(s): N18.9 - CHRONIC KIDNEY DISEASE, UNSPECIFIED (9) HLD (hyperlipidemia) Assessment/Plan: Cont crestor Code(s): E78.5 - HYPERLIPIDEMIA, UNSPECIFIED (10) GERD (gastroesophageal reflux disease) Assessment/Plan: Cont protonix Code(s): K21.9 - GASTRO-ESOPHAGEAL REFLUX DISEASE WITHOUT ESOPHAGITIS (11) Diabetes Assessment/Plan: Cont sliding scale Pt has a h/o steroid induced diabetes Code(s): E11.9 - TYPE 2 DIABETES MELLITUS WITHOUT COMPLICATIONS (12) Morbid obesity Code(s): E66.01 - MORBID (SEVERE) OBESITY DUE TO EXCESS CALORIES
[2017-11-29] MEDS: SENNOSIDES 8.6MG TABLET (FP) PO SCH (22:40)
[2017-11-29] MEDS: ROSUVASTATIN CA 10 MG TABLET (FP) PO SCH (22:40)
[2017-11-29] MEDS: INSULIN SLIDING SCALE (NOVOLOG) 1 VIAL SQ SCH (22:44)
[2017-11-30] MEDS: methylPREDNISolone NA SUCC 40 MG/1 ML VIAL IVPUSH SCH ×3 (01:37→17:17)
[2017-11-30] MEDS: INSULIN SLIDING SCALE (NOVOLOG) 1 VIAL SQ SCH ×4 (06:18→21:54)
[2017-11-30] MEDS: FUROSEMIDE 40 MG/4 ML INJECTABLE VIAL IVPUSH SCH ×2 (06:19→14:25)
[2017-11-30 06:35] LABS: HEMATOCRIT 34.3 % (32.4-45.2); HEMOGLOBIN 10.1 GM/dL (10.7-15.3); MCH 24.7 pg (25.7-33.7); MCHC 29.4 g/dl (32.0-36.0); MEAN CELL VOLUME 84.1 fl (80-96); MEAN PLT VOLUME 9.4 fl (7.5-11.1); PLATELET COUNT 173 K/MM3 (134-434); RBC 4.08 M/mm3 (3.60-5.2); RDW 15.9 % (11.6-15.6); WHITE BLOOD COUNT 15.1 K/mm3 (4.0-10.0)
[2017-11-30 06:53] LABS: INR 2.24 (0.82-1.09); PROTHROMBIN TIME (PATIENT) 25.3 SEC (9.98-11.88)
[2017-11-30 07:10] LABS: CHLORIDE 91 mmol/L (98-107); POTASSIUM 4.2 mmol/L (3.5-5.1); SODIUM 139 mmol/L (136-145)
[2017-11-30 07:16] LABS: ALBUMIN 3.2 g/dl (3.4-5.0); ALK PHOS 52 U/L (45-117); ANION GAP 3 (8-16); BILIRUBIN,TOTAL 0.8 mg/dL (0.2-1.0); BLOOD UREA NITROGEN 30 mg/dL (7-18); CALCIUM 8.1 mg/dL (8.5-10.1); CO2 45 mmol/L (21-32); CREATININE 1.2 mg/dL (0.55-1.02); GLUCOSE,RANDOM 221 mg/dL (74-106); SGOT/AST 31 U/L (15-37); SGPT/ALT 35 U/L (12-78); TOT PROT 5.5 g/dl (6.4-8.2)
[2017-11-30] MEDS: ALBUTEROL SO4 0.083% IH SOL 2.5 MG/3 ML VIAL.NEB. NEB PRN ×2 (07:42→20:30)
[2017-11-30 09:21] LABS: ANISOCYTOSIS 1+; PLATELET ESTIMATE ADEQUATE; TEAR DROP CELLS 2+
[2017-11-30] MEDS: TIOTROPIUM BROMIDE 18 MCG/INH (DEVICE W/ 5 CAPSULES) IH SCH (10:01)
[2017-11-30] MEDS: PANTOPRAZOLE 40 MG TABLET (FP) PO SCH (10:03)
[2017-11-30] MEDS: POTASSIUM CHLORIDE TABS 20 MEQ TABLET.ER (FP) PO SCH (10:04)
[2017-11-30] MEDS: CEFTRIAXONE 1 G/50 ML PREMIX 50 ML IVPB SCH (10:04)
[2017-11-30] MEDS: VALSARTAN 160 MG TABLET (UD) PO SCH (10:04)
[2017-11-30] MEDS: BUDESONIDE/FORMETEROL FUMARATE 160/4.5 mcg INHALER IH SCH ×2 (10:04→21:53)
[2017-11-30] MEDS: NIFEdipine E.R. 30 MG TABLET (FP) PO SCH (10:04)
[2017-11-30] MEDS: FERROUS SO4 325 MG TABLET (FP) PO SCH ×3 (10:04→17:17)
[2017-11-30] MEDS: POLYETHYLENE GLYCOL 3350 119 GM BTL PO SCH (10:05)
--- NOTE | 2017-11-30 11:36 | PN ---
Progress Note, Physician History of Present Illness: pulmonary alert,dyspneic with any movement,less cough,less congestion - Current Medication List Current Medications: Active Medications Budesonide/Formoterol Fumarate (Symbicort 160/4.5mcg -) 2 puff IH BID [facility] Last Admin: 11/30/17 10:04 Dose: 2 puff Ferrous Sulfate (Feosol -) 325 mg PO TIDCM [facility] Last Admin: 11/30/17 10:04 Dose: 325 mg Furosemide (Lasix Injection -) 40 mg IVPUSH BID@0600,1400 [facility] Last Admin: 11/30/17 06:19 Dose: 40 mg Guaifenesin (Robitussin -) 10 ml PO Q6H PRN PRN Reason: COUGH CEFTRIAXONE 1 G/50 ML PREMIX (Ceftriaxone 1 Gm-D5w Bag) 50 mls @ 100 mls/hr IVPB DAILY [facility] Last Admin: 11/30/17 10:04 Dose: 100 mls/hr Insulin Aspart (Novolog Vial Sliding Scale -) 1 vial SQ ACHS [facility] PRN Reason: Protocol Last Admin: 11/30/17 06:18 Dose: 4 units Methylprednisolone Sodium Succinate (Solu-Medrol -) 20 mg IVPUSH Q8H-IV [facility] Last Admin: 11/30/17 10:03 Dose: 20 mg Nifedipine (Procardia Xl -) 30 mg PO DAILY [facility] Last Admin: 11/30/17 10:04 Dose: 30 mg Pantoprazole Sodium (Protonix -) 40 mg PO DAILY [facility] Last Admin: 11/30/17 10:03 Dose: 40 mg Polyethylene Glycol (Miralax (For Daily Use) -) 17 gm PO DAILY [facility] Last Admin: 11/29/17 10:45 Dose: Not Given Potassium Chloride (K-Dur -) 40 meq PO DAILY [facility] Last Admin: 11/30/17 10:04 Dose: 40 meq Rosuvastatin Calcium (Crestor -) 10 mg PO HS [facility] Last Admin: 11/29/17 22:40 Dose: 10 mg Senna (Senna -) 2 tab PO HS [facility] Last Admin: 11/29/17 22:40 Dose: 2 tab Tiotropium [place] (Spiriva -) 1 puff IH DAILY [facility] Last Admin: 11/30/17 10:01 Dose: 1 inh Valsartan (Diovan -) 160 mg PO DAILY [facility] Last Admin: 11/30/17 10:04 Dose: 160 mg - Objective Vital Signs: Vital Signs Temperature 98.2 F 11/30/17 08:15 Pulse Rate 96 H 11/30/17 08:15 Respiratory Rate 16 11/30/17 08:15 Blood Pressure 142/82 11/30/17 08:15 O2 Sat by Pulse Oximetry (%) 97 11/29/17 21:00 Constitutional: Yes: Calm, Obese Eyes: Yes: WNL HENT: Yes: WNL Neck: Yes: WNL Cardiovascular: Yes: Regular Rate and Rhythm, S1, S2 Respiratory: Yes: Wheezes (few scattered lucretia wheezes) Gastrointestinal: Yes: Normal Bowel Sounds, Soft, Abdomen, Obese Extremities: Yes: WNL Edema: Yes Labs: CBC, BMP 11/30/17 06:20 11/30/17 06:20 INR, PTT INR 2.24 (0.82-1.09) H D 11/30/17 06:20 Problem List - Problems (1) CKD (chronic kidney disease) Code(s): N18.9 - CHRONIC KIDNEY DISEASE, UNSPECIFIED (2) COPD (chronic obstructive pulmonary disease) Code(s): J44.9 - CHRONIC OBSTRUCTIVE PULMONARY DISEASE, UNSPECIFIED (3) Diabetes Code(s): E11.9 - TYPE 2 DIABETES MELLITUS WITHOUT COMPLICATIONS (4) GERD (gastroesophageal reflux disease) Code(s): K21.9 - GASTRO-ESOPHAGEAL REFLUX DISEASE WITHOUT ESOPHAGITIS (5) Influenza Code(s): J11.1 - FLU DUE TO UNIDENTIFIED INFLUENZA VIRUS W OTH RESP MANIFEST (6) Respiratory distress Code(s): R06.03 - ACUTE RESPIRATORY DISTRESS (7) Acute on chronic respiratory failure with hypoxia and hypercapnia Code(s): J96.21 - ACUTE AND CHRONIC RESPIRATORY FAILURE WITH HYPOXIA; J96.22 - ACUTE AND CHRONIC RESPIRATORY FAILURE WITH HYPERCAPNIA (8) Coronary artery disease Code(s): I25.10 - ATHSCL HEART DISEASE OF [place] CORONARY ARTERY W/O ANG PCTRS (9) HLD (hyperlipidemia) Code(s): E78.5 - HYPERLIPIDEMIA, UNSPECIFIED (10) History of pulmonary embolism Code(s): Z86.711 - PERSONAL HISTORY OF PULMONARY EMBOLISM (11) Hypertension Code(s): I10 - ESSENTIAL (PRIMARY) HYPERTENSION (12) care home current use of anticoagulant Code(s): Z79.01 - RESIDENTIAL (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 OF 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 (13) Morbid obesity Code(s): E66.01 - MORBID (SEVERE) OBESITY DUE TO EXCESS CALORIES (14) SOB (shortness of breath) Code(s): R06.02 - SHORTNESS OF BREATH Assessment/Plan A/P Acute on Chronic Hypoxic and Hypercapneic Respiratory Failure improving Influenza A Acute COPD Exacerbation LV Diastolic Dysfunction h/o PE h/o CVA DM CKD Anemia - completed tamiflu - continue empiric antibiotics - continue medrol at current dose - inhaled bronchodilators standing and PRN - continue IV lasix - monitor urine output, creatinine - monitor H/H - transfuse as needed - O2 to keep SpO2 >90% - BiPAP if pt allows - anticoagulation DR FOX
[2017-11-30] MEDS ORDERED: INSULIN (NOVOLOG) ASPART 100 UNITS/ML 10ML VIAL ONE ×2 (12:03→17:01)
--- NOTE | 2017-11-30 12:23 | PN ---
Progress Note, Physician History of Present Illness: seen and examined today in nad. no overnight events. no new complaints. states she is feeling better but still not great. - Current Medication List Current Medications: Active Medications Budesonide/Formoterol Fumarate (Symbicort 160/4.5mcg -) 2 puff IH BID [facility] Last Admin: 11/30/17 10:04 Dose: 2 puff Ferrous Sulfate (Feosol -) 325 mg PO TIDCM [facility] Last Admin: 11/30/17 12:07 Dose: 325 mg Furosemide (Lasix Injection -) 40 mg IVPUSH BID@0600,1400 [facility] Last Admin: 11/30/17 06:19 Dose: 40 mg Guaifenesin (Robitussin -) 10 ml PO Q6H PRN PRN Reason: COUGH CEFTRIAXONE 1 G/50 ML PREMIX (Ceftriaxone 1 Gm-D5w Bag) 50 mls @ 100 mls/hr IVPB DAILY [facility] Last Admin: 11/30/17 10:04 Dose: 100 mls/hr Insulin Aspart (Novolog Vial Sliding Scale -) 1 vial SQ ACHS [facility] PRN Reason: Protocol Last Admin: 11/30/17 12:07 Dose: 2 units Methylprednisolone Sodium Succinate (Solu-Medrol -) 20 mg IVPUSH Q8H-IV [facility] Last Admin: 11/30/17 10:03 Dose: 20 mg Nifedipine (Procardia Xl -) 30 mg PO DAILY [facility] Last Admin: 11/30/17 10:04 Dose: 30 mg Pantoprazole Sodium (Protonix -) 40 mg PO DAILY [facility] Last Admin: 11/30/17 10:03 Dose: 40 mg Polyethylene Glycol (Miralax (For Daily Use) -) 17 gm PO DAILY [facility] Last Admin: 11/30/17 10:05 Dose: Not Given Potassium Chloride (K-Dur -) 40 meq PO DAILY [facility] Last Admin: 11/30/17 10:04 Dose: 40 meq Rosuvastatin Calcium (Crestor -) 10 mg PO HS [facility] Last Admin: 11/29/17 22:40 Dose: 10 mg Senna (Senna -) 2 tab PO HS [facility] Last Admin: 11/29/17 22:40 Dose: 2 tab Tiotropium [place] (Spiriva -) 1 puff IH DAILY [facility] Last Admin: 11/30/17 10:01 Dose: 1 inh Valsartan (Diovan -) 160 mg PO DAILY [facility] Last Admin: 11/30/17 10:04 Dose: 160 mg - Objective Vital Signs: Vital Signs Temperature 98.2 F 11/30/17 08:15 Pulse Rate 96 H 11/30/17 08:15 Respiratory Rate 16 11/30/17 08:15 Blood Pressure 142/82 11/30/17 08:15 O2 Sat by Pulse Oximetry (%) 97 11/29/17 21:00 Constitutional: Yes: No Distress, Calm Eyes: Yes: Conjunctiva Clear, EOM Intact HENT: Yes: Atraumatic, Normocephalic Neck: Yes: Supple, Trachea Midline Cardiovascular: Yes: Regular Rate and Rhythm, S1, S2. No: Bradycardia, Tachycardia, Pulse Irregular, Bruit, JVD, Gallop, Murmur, Rub, S3, S4, Varicosities Respiratory: Yes: Regular, Diminished, Wheezes. No: Rales, Rhonchi, SOB Gastrointestinal: Yes: Normal Bowel Sounds, Soft. No: Distention, Tenderness Musculoskeletal: Yes: WNL Extremities: Yes: WNL Edema: Yes Edema: LLE: Trace, RLE: Trace Peripheral Pulses WNL: Yes Peripheral Pulses: Left Doralis Pedis: 2+, Right Dorsalis Pedis: 2+ Integumentary: Yes: WNL Neurological: Yes: Alert, Oriented Psychiatric: Yes: Alert, Oriented Labs: CBC, BMP 11/30/17 06:20 11/30/17 06:20 INR, PTT INR 2.24 (0.82-1.09) H D 11/30/17 06:20 - ....Imaging Chest X-ray: Report Reviewed, Image Reviewed EKG: Report Reviewed, Image Reviewed Other: Report Reviewed, Image Reviewed (tele-NSR, Frequent Apcs, occ PVCs) Assessment/Plan IMP: Influenza + Chronic COPD, with acute exacerbation triggered by viral illness History of Pulmonary Embolism on Coumadin PAF Hypokalemia Hypomagnesemia Elevated INR REC: 1. Maintain K+ and Mg2+ 2. INR was supratherapeutic, now back within range, dose Coumadin for goal INR 2 -3 for h/o PE 3. Pulmonary following, steroids/nebs/supplimental O2. Received Tamiflu 4. Discontinue telemetry
--- NOTE | 2017-11-30 13:04 | PN ---
Progress Note, Physician History of Present Illness: doing much better patient now on regular floor breathing better - Current Medication List Current Medications: Active Medications Budesonide/Formoterol Fumarate (Symbicort 160/4.5mcg -) 2 puff IH BID [facility] Last Admin: 11/30/17 10:04 Dose: 2 puff Ferrous Sulfate (Feosol -) 325 mg PO TIDCM [facility] Last Admin: 11/30/17 12:07 Dose: 325 mg Furosemide (Lasix Injection -) 40 mg IVPUSH BID@0600,1400 [facility] Last Admin: 11/30/17 06:19 Dose: 40 mg Guaifenesin (Robitussin -) 10 ml PO Q6H PRN PRN Reason: COUGH CEFTRIAXONE 1 G/50 ML PREMIX (Ceftriaxone 1 Gm-D5w Bag) 50 mls @ 100 mls/hr IVPB DAILY [facility] Last Admin: 11/30/17 10:04 Dose: 100 mls/hr Insulin Aspart (Novolog Vial Sliding Scale -) 1 vial SQ ACHS [facility] PRN Reason: Protocol Last Admin: 11/30/17 12:07 Dose: 2 units Methylprednisolone Sodium Succinate (Solu-Medrol -) 20 mg IVPUSH Q8H-IV [facility] Last Admin: 11/30/17 10:03 Dose: 20 mg Nifedipine (Procardia Xl -) 30 mg PO DAILY [facility] Last Admin: 11/30/17 10:04 Dose: 30 mg Pantoprazole Sodium (Protonix -) 40 mg PO DAILY [facility] Last Admin: 11/30/17 10:03 Dose: 40 mg Polyethylene Glycol (Miralax (For Daily Use) -) 17 gm PO DAILY [facility] Last Admin: 11/30/17 10:05 Dose: Not Given Potassium Chloride (K-Dur -) 40 meq PO DAILY [facility] Last Admin: 11/30/17 10:04 Dose: 40 meq Rosuvastatin Calcium (Crestor -) 10 mg PO HS [facility] Last Admin: 11/29/17 22:40 Dose: 10 mg Senna (Senna -) 2 tab PO HS [facility] Last Admin: 11/29/17 22:40 Dose: 2 tab Tiotropium [place] (Spiriva -) 1 puff IH DAILY [facility] Last Admin: 11/30/17 10:01 Dose: 1 inh Valsartan (Diovan -) 160 mg PO DAILY [facility] Last Admin: 11/30/17 10:04 Dose: 160 mg - Objective Vital Signs: Vital Signs Temperature 98.2 F 11/30/17 08:15 Pulse Rate 96 H 11/30/17 08:15 Respiratory Rate 16 11/30/17 08:15 Blood Pressure 142/82 11/30/17 08:15 O2 Sat by Pulse Oximetry (%) 97 11/29/17 21:00 Constitutional: Yes: No Distress, Calm, Obese Cardiovascular: Yes: S1, S2 Respiratory: Yes: Regular, On Nasal O2 Gastrointestinal: Yes: Normal Bowel Sounds, Soft Musculoskeletal: Yes: WNL Extremities: Yes: WNL Neurological: Yes: Alert, Oriented Psychiatric: Yes: Alert, Oriented Labs: CBC, BMP 11/30/17 06:20 11/30/17 06:20 INR, PTT INR 2.24 (0.82-1.09) H D 11/30/17 06:20 Assessment/Plan this patient with multiple comorbid condition and with flu and positive xray findings Problem List - Problems (1) Influenza Code(s): J11.1 - FLU DUE TO UNIDENTIFIED INFLUENZA VIRUS W OTH RESP MANIFEST (2) Acute on chronic respiratory failure with hypoxia and hypercapnia Assessment/Plan: Code(s): J96.21 - ACUTE AND CHRONIC RESPIRATORY FAILURE WITH HYPOXIA; J96.22 - ACUTE AND CHRONIC RESPIRATORY FAILURE WITH HYPERCAPNIA (3) Anemia Code(s): D64.9 - ANEMIA, UNSPECIFIED Qualifiers: Anemia type: unspecified type Qualified Code(s): D64.9 - Anemia, unspecified (4) Chronic diastolic (congestive) heart failure Code(s): I50.32 - CHRONIC DIASTOLIC (CONGESTIVE) HEART FAILURE (5) Hypertension Code(s): I10 - ESSENTIAL (PRIMARY) HYPERTENSION (6) Pulmonary embolus Code(s): I26.99 - OTHER PULMONARY EMBOLISM WITHOUT ACUTE COR PULMONALE (7) Coronary artery disease Code(s): I25.10 - ATHSCL HEART DISEASE OF [place] CORONARY ARTERY W/O ANG PCTRS (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
[2017-11-30] MEDS ORDERED: WARFARIN NA 2 MG TABLET (UD) PO ONE (18:00)
--- NOTE | 2017-11-30 20:20 | PN ---
Progress Note, Physician History of Present Illness: No new complaints - Current Medication List Current Medications: Active Medications Albuterol Sulfate (Ventolin 0.083% Nebulizer Soln -) 1 amp NEB Q4H PRN PRN Reason: SHORT OF BREATH/WHEEZING Budesonide/Formoterol Fumarate (Symbicort 160/4.5mcg -) 2 puff IH BID [facility] Last Admin: 11/30/17 10:04 Dose: 2 puff Ferrous Sulfate (Feosol -) 325 mg PO TIDCM [facility] Last Admin: 11/30/17 17:17 Dose: 325 mg Furosemide (Lasix Injection -) 40 mg IVPUSH BID@0600,1400 [facility] Last Admin: 11/30/17 14:25 Dose: 40 mg Guaifenesin (Robitussin -) 10 ml PO Q6H PRN PRN Reason: COUGH CEFTRIAXONE 1 G/50 ML PREMIX (Ceftriaxone 1 Gm-D5w Bag) 50 mls @ 100 mls/hr IVPB DAILY [facility] Last Admin: 11/30/17 10:04 Dose: 100 mls/hr Insulin Aspart (Novolog Vial Sliding Scale -) 1 vial SQ ACHS [facility] PRN Reason: Protocol Last Admin: 11/30/17 17:17 Dose: 4 units Methylprednisolone Sodium Succinate (Solu-Medrol -) 20 mg IVPUSH Q8H-IV [facility] Last Admin: 11/30/17 17:17 Dose: 20 mg Nifedipine (Procardia Xl -) 30 mg PO DAILY [facility] Last Admin: 11/30/17 10:04 Dose: 30 mg Pantoprazole Sodium (Protonix -) 40 mg PO DAILY [facility] Last Admin: 11/30/17 10:03 Dose: 40 mg Polyethylene Glycol (Miralax (For Daily Use) -) 17 gm PO DAILY [facility] Last Admin: 11/30/17 10:05 Dose: Not Given Potassium Chloride (K-Dur -) 40 meq PO DAILY [facility] Last Admin: 11/30/17 10:04 Dose: 40 meq Rosuvastatin Calcium (Crestor -) 10 mg PO HS [facility] Last Admin: 11/29/17 22:40 Dose: 10 mg Senna (Senna -) 2 tab PO HS [facility] Last Admin: 11/29/17 22:40 Dose: 2 tab Tiotropium [place] (Spiriva -) 1 puff IH DAILY [facility] Last Admin: 11/30/17 10:01 Dose: 1 inh Valsartan (Diovan -) 160 mg PO DAILY [facility] Last Admin: 11/30/17 10:04 Dose: 160 mg - Objective Vital Signs: Vital Signs Temperature 98.7 F 11/30/17 14:00 Pulse Rate 97 H 11/30/17 14:00 Respiratory Rate 20 11/30/17 14:00 Blood Pressure 139/68 11/30/17 14:00 O2 Sat by Pulse Oximetry (%) 97 11/30/17 09:00 Constitutional: Yes: Well Nourished HENT: Yes: WNL Neck: Yes: WNL, Supple Cardiovascular: Yes: WNL, Regular Rate and Rhythm Respiratory: Yes: WNL, Regular, CTA Bilaterally Gastrointestinal: Yes: WNL, Normal Bowel Sounds, Soft, Abdomen, Obese Extremities: Yes: WNL Edema: No Labs: CBC, BMP 11/30/17 06:20 11/30/17 06:20 INR, PTT INR 2.24 (0.82-1.09) H D 11/30/17 06:20 Problem List - Problems (1) Influenza Assessment/Plan: Cont tamiflu Code(s): J11.1 - FLU DUE TO UNIDENTIFIED INFLUENZA VIRUS W OTH RESP MANIFEST (2) Acute on chronic respiratory failure with hypoxia and hypercapnia Assessment/Plan: Cont nebulizers IV steroids being tapered Cont IV ceftriaxone Code(s): J96.21 - ACUTE AND CHRONIC RESPIRATORY FAILURE WITH HYPOXIA; J96.22 - ACUTE AND CHRONIC RESPIRATORY FAILURE WITH HYPERCAPNIA (3) COPD (chronic obstructive pulmonary disease) Assessment/Plan: Cont symbicort/spireva Code(s): J44.9 - CHRONIC OBSTRUCTIVE PULMONARY DISEASE, UNSPECIFIED (4) Anemia Assessment/Plan: S/P transfusion 2 units PRBC's Monitor H/H Cont feosol Code(s): D64.9 - ANEMIA, UNSPECIFIED Qualifiers: Anemia type: unspecified type Qualified Code(s): D64.9 - Anemia, unspecified (5) Chronic diastolic (congestive) heart failure Assessment/Plan: Cont IV lasix Monitor electrolytes Code(s): I50.32 - CHRONIC DIASTOLIC (CONGESTIVE) HEART FAILURE (6) History of pulmonary embolism Assessment/Plan: Coumadin restarted coumadin monitor pt/inr Code(s): Z86.711 - PERSONAL HISTORY OF PULMONARY EMBOLISM (7) Hypertension Code(s): I10 - ESSENTIAL (PRIMARY) HYPERTENSION (8) CKD (chronic kidney disease) Code(s): N18.9 - CHRONIC KIDNEY DISEASE, UNSPECIFIED (9) HLD (hyperlipidemia) Code(s): E78.5 - HYPERLIPIDEMIA, UNSPECIFIED (10) GERD (gastroesophageal reflux disease) Code(s): K21.9 - GASTRO-ESOPHAGEAL REFLUX DISEASE WITHOUT ESOPHAGITIS (11) Diabetes Code(s): E11.9 - TYPE 2 DIABETES MELLITUS WITHOUT COMPLICATIONS (12) Morbid obesity Code(s): E66.01 - MORBID (SEVERE) OBESITY DUE TO EXCESS CALORIES
[2017-11-30] MEDS: SENNOSIDES 8.6MG TABLET (FP) PO SCH (21:54)
[2017-11-30] MEDS: ROSUVASTATIN CA 10 MG TABLET (FP) PO SCH (21:54)
[2017-11-30] MEDS: guaiFENesin 200 MG/10 ML 10 ML UNIT-DOSE CUPS PO PRN (21:55)
[2017-12-01] MEDS: methylPREDNISolone NA SUCC 40 MG/1 ML VIAL IVPUSH SCH ×3 (03:00→17:14)
[2017-12-01] MEDS: FUROSEMIDE 40 MG/4 ML INJECTABLE VIAL IVPUSH SCH ×2 (05:48→15:00)
[2017-12-01] MEDS: ALBUTEROL SO4 0.083% IH SOL 2.5 MG/3 ML VIAL.NEB. NEB PRN ×3 (06:29→18:24)
[2017-12-01] MEDS: FERROUS SO4 325 MG TABLET (FP) PO SCH ×3 (08:40→17:14)
--- NOTE | 2017-12-01 09:11 | PN ---
Progress Note, Physician Chief Complaint: no distress - Current Medication List Current Medications: Active Medications Albuterol Sulfate (Ventolin 0.083% Nebulizer Soln -) 1 amp NEB Q4H PRN PRN Reason: SHORT OF BREATH/WHEEZING Last Admin: 12/01/17 06:29 Dose: 1 amp Budesonide/Formoterol Fumarate (Symbicort 160/4.5mcg -) 2 puff IH BID [facility] Last Admin: 11/30/17 21:53 Dose: 2 puff Ferrous Sulfate (Feosol -) 325 mg PO TIDCM [facility] Last Admin: 11/30/17 17:17 Dose: 325 mg Furosemide (Lasix Injection -) 40 mg IVPUSH BID@0600,1400 [facility] Last Admin: 12/01/17 05:48 Dose: 40 mg Guaifenesin (Robitussin -) 10 ml PO Q6H PRN PRN Reason: COUGH Last Admin: 11/30/17 21:55 Dose: 10 ml CEFTRIAXONE 1 G/50 ML PREMIX (Ceftriaxone 1 Gm-D5w Bag) 50 mls @ 100 mls/hr IVPB DAILY [facility] Last Admin: 11/30/17 10:04 Dose: 100 mls/hr Insulin Aspart (Novolog Vial Sliding Scale -) 1 vial SQ ACHS [facility] PRN Reason: Protocol Last Admin: 11/30/17 21:54 Dose: 8 units Methylprednisolone Sodium Succinate (Solu-Medrol -) 20 mg IVPUSH Q8H-IV [facility] Last Admin: 12/01/17 03:00 Dose: 20 mg Nifedipine (Procardia Xl -) 30 mg PO DAILY [facility] Last Admin: 11/30/17 10:04 Dose: 30 mg Pantoprazole Sodium (Protonix -) 40 mg PO DAILY [facility] Last Admin: 11/30/17 10:03 Dose: 40 mg Polyethylene Glycol (Miralax (For Daily Use) -) 17 gm PO DAILY [facility] Last Admin: 11/30/17 10:05 Dose: Not Given Potassium Chloride (K-Dur -) 40 meq PO DAILY [facility] Last Admin: 11/30/17 10:04 Dose: 40 meq Rosuvastatin Calcium (Crestor -) 10 mg PO HS [facility] Last Admin: 11/30/17 21:54 Dose: 10 mg Senna (Senna -) 2 tab PO HS [facility] Last Admin: 11/30/17 21:54 Dose: 2 tab Tiotropium [place] (Spiriva -) 1 puff IH DAILY [facility] Last Admin: 11/30/17 10:01 Dose: 1 inh Valsartan (Diovan -) 160 mg PO DAILY [facility] Last Admin: 11/30/17 10:04 Dose: 160 mg - Objective Vital Signs: Vital Signs Temperature 98.5 F 12/01/17 02:23 Pulse Rate 96 H 12/01/17 06:00 Respiratory Rate 20 12/01/17 06:00 Blood Pressure 126/53 12/01/17 06:00 O2 Sat by Pulse Oximetry (%) 96 11/30/17 21:00 Constitutional: Yes: No Distress Cardiovascular: Yes: Regular Rate and Rhythm Respiratory: Yes: Other (no acticve wheezing) Gastrointestinal: Yes: Soft, Abdomen, Obese Edema: No Neurological: Yes: Alert, Oriented Labs: CBC, BMP 11/30/17 06:20 11/30/17 06:20 INR, PTT INR 2.24 (0.82-1.09) H D 11/30/17 06:20 Laboratory Tests 11/29/17 11/29/17 11/29/17 05:18 05:18 05:18 WBC 14.6 H RBC 4.15 Hgb Plt Count 162 INR 5.52 H* Sodium 142 Potassium 3.9 Creatinine 1.3 H Magnesium 2.0 11/30/17 11/30/17 11/30/17 06:20 06:20 06:20 WBC 15.1 H RBC 4.08 Hgb 10.1 L Plt Count 173 INR 2.24 H D Sodium Potassium 4.2 Creatinine 1.2 H Magnesium Problem List - Problems (1) Respiratory distress Code(s): R06.03 - ACUTE RESPIRATORY DISTRESS (2) Acute exacerbation of chronic bronchitis Code(s): J20.9 - ACUTE BRONCHITIS, UNSPECIFIED; J42 - UNSPECIFIED CHRONIC BRONCHITIS (3) Acute on chronic respiratory failure with hypoxia and hypercapnia Code(s): J96.21 - ACUTE AND CHRONIC RESPIRATORY FAILURE WITH HYPOXIA; J96.22 - ACUTE AND CHRONIC RESPIRATORY FAILURE WITH HYPERCAPNIA (4) Anemia Code(s): D64.9 - ANEMIA, UNSPECIFIED Qualifiers: Anemia type: unspecified type Qualified Code(s): D64.9 - Anemia, unspecified (5) CHF (congestive heart failure) Code(s): I50.9 - HEART FAILURE, UNSPECIFIED Qualifiers: Congestive heart failure type: diastolic Congestive heart failure chronicity: acute on chronic Qualified Code(s): I50.33 - Acute on chronic diastolic (congestive) heart failure Assessment/Plan ssment/Plan IMP: Influenza + Chronic COPD, with acute exacerbation triggered by viral illness History of Pulmonary Embolism on Coumadin PAF Hypokalemia Hypomagnesemia Elevated INR REC: 1. Maintain K+ and Mg2+ 2. INR was supratherapeutic, now back within range, dose Coumadin for goal INR 2 -3 for h/o PE 3. Pulmonary following, steroids/nebs/supplimental O2. Received Tamiflu 4. Discontinue telemetrym can move to medical floor.
[2017-12-01] MEDS: NIFEdipine E.R. 30 MG TABLET (FP) PO SCH (10:02)
[2017-12-01] MEDS: CEFTRIAXONE 1 G/50 ML PREMIX 50 ML IVPB SCH (10:02)
[2017-12-01] MEDS: VALSARTAN 160 MG TABLET (UD) PO SCH (10:02)
[2017-12-01] MEDS: PANTOPRAZOLE 40 MG TABLET (FP) PO SCH (10:02)
[2017-12-01] MEDS: POTASSIUM CHLORIDE TABS 20 MEQ TABLET.ER (FP) PO SCH (10:02)
[2017-12-01] MEDS: guaiFENesin 200 MG/10 ML 10 ML UNIT-DOSE CUPS PO PRN (10:03)
[2017-12-01] MEDS: POLYETHYLENE GLYCOL 3350 119 GM BTL PO SCH (10:03)
[2017-12-01] MEDS: TIOTROPIUM BROMIDE 18 MCG/INH (DEVICE W/ 5 CAPSULES) IH SCH (10:03)
[2017-12-01] MEDS: BUDESONIDE/FORMETEROL FUMARATE 160/4.5 mcg INHALER IH SCH ×2 (10:04→21:17)
[2017-12-01] MEDS: INSULIN SLIDING SCALE (NOVOLOG) 1 VIAL SQ SCH ×4 (10:04→21:18)
--- NOTE | 2017-12-01 12:35 | PN ---
Progress Note (short form) - Note Progress Note: PULMONARY Breathing better today, still with cough, wheezing and chest tightness. Last Vital Signs Temp Pulse Resp BP Pulse Ox 98.7 F 102 H 22 122/88 94 L 12/01/17 10:00 12/01/17 10:00 12/01/17 10:00 12/01/17 10:00 12/01/17 10:00 Gen: less tachypneic at rest Heart: tachycardic, regular Lung: bilateral rhonchi, wheezes Abd: soft, nontender Ext: no edema CBC, BMP 11/30/17 06:20 11/30/17 06:20 Active Medications Albuterol Sulfate (Ventolin 0.083% Nebulizer Soln -) 1 amp NEB Q4H PRN PRN Reason: SHORT OF BREATH/WHEEZING Last Admin: 12/01/17 07:55 Dose: 1 amp Budesonide/Formoterol Fumarate (Symbicort 160/4.5mcg -) 2 puff IH BID [facility] Last Admin: 12/01/17 10:04 Dose: 2 puff Ferrous Sulfate (Feosol -) 325 mg PO TIDCM [facility] Last Admin: 12/01/17 10:02 Dose: 325 mg Furosemide (Lasix Injection -) 40 mg IVPUSH BID@0600,1400 [facility] Last Admin: 12/01/17 05:48 Dose: 40 mg Guaifenesin (Robitussin -) 10 ml PO Q6H PRN PRN Reason: COUGH Last Admin: 12/01/17 10:03 Dose: 10 ml CEFTRIAXONE 1 G/50 ML PREMIX (Ceftriaxone 1 Gm-D5w Bag) 50 mls @ 100 mls/hr IVPB DAILY [facility] Last Admin: 12/01/17 10:02 Dose: 100 mls/hr Insulin Aspart (Novolog Vial Sliding Scale -) 1 vial SQ ACHS [facility] PRN Reason: Protocol Last Admin: 12/01/17 10:04 Dose: Not Given Methylprednisolone Sodium Succinate (Solu-Medrol -) 20 mg IVPUSH Q8H-IV [facility] Last Admin: 12/01/17 10:02 Dose: 20 mg Nifedipine (Procardia Xl -) 30 mg PO DAILY [facility] Last Admin: 12/01/17 10:02 Dose: 30 mg Pantoprazole Sodium (Protonix -) 40 mg PO DAILY [facility] Last Admin: 12/01/17 10:02 Dose: 40 mg Polyethylene Glycol (Miralax (For Daily Use) -) 17 gm PO DAILY [facility] Last Admin: 12/01/17 10:03 Dose: Not Given Potassium Chloride (K-Dur -) 40 meq PO DAILY [facility] Last Admin: 12/01/17 10:02 Dose: 40 meq Rosuvastatin Calcium (Crestor -) 10 mg PO HS [facility] Last Admin: 11/30/17 21:54 Dose: 10 mg Senna (Senna -) 2 tab PO HS [facility] Last Admin: 11/30/17 21:54 Dose: 2 tab Tiotropium [place] (Spiriva -) 1 puff IH DAILY [facility] Last Admin: 12/01/17 10:03 Dose: 1 inh Valsartan (Diovan -) 160 mg PO DAILY [facility] Last Admin: 12/01/17 10:02 Dose: 160 mg A/P Acute on Chronic Hypoxic and Hypercapneic Respiratory Failure improving Influenza A Acute COPD Exacerbation LV Diastolic Dysfunction h/o PE h/o CVA DM CKD Anemia - completed tamiflu - continue empiric antibiotics - slow medrol taper - inhaled bronchodilators standing and PRN - continue lasix - monitor urine output, creatinine - monitor H/H - transfuse as needed - O2 to keep SpO2 >90% - BiPAP if pt allows - continue anticoagulation
[2017-12-01 19:06] LABS: INR 1.6 (0.82-1.09); PROTHROMBIN TIME (PATIENT) 18.1 SEC (9.98-11.88)
[2017-12-01] MEDS ORDERED: WARFARIN NA 5 MG TABLET (UD) PO ONE (20:32)
--- NOTE | 2017-12-01 20:32 | PN ---
Progress Note, Physician - Current Medication List Current Medications: Active Medications Albuterol Sulfate (Ventolin 0.083% Nebulizer Soln -) 1 amp NEB Q4H PRN PRN Reason: SHORT OF BREATH/WHEEZING Last Admin: 12/01/17 18:24 Dose: 1 amp Budesonide/Formoterol Fumarate (Symbicort 160/4.5mcg -) 2 puff IH BID [facility] Last Admin: 12/01/17 10:04 Dose: 2 puff Ferrous Sulfate (Feosol -) 325 mg PO TIDCM [facility] Last Admin: 12/01/17 17:14 Dose: 325 mg Furosemide (Lasix Injection -) 40 mg IVPUSH BID@0600,1400 [facility] Last Admin: 12/01/17 15:00 Dose: 40 mg Guaifenesin (Robitussin -) 10 ml PO Q6H PRN PRN Reason: COUGH Last Admin: 12/01/17 10:03 Dose: 10 ml CEFTRIAXONE 1 G/50 ML PREMIX (Ceftriaxone 1 Gm-D5w Bag) 50 mls @ 100 mls/hr IVPB DAILY [facility] Last Admin: 12/01/17 10:02 Dose: 100 mls/hr Insulin Aspart (Novolog Vial Sliding Scale -) 1 vial SQ ACHS [facility] PRN Reason: Protocol Last Admin: 12/01/17 17:13 Dose: 4 units Methylprednisolone Sodium Succinate (Solu-Medrol -) 20 mg IVPUSH Q8H-IV [facility] Last Admin: 12/01/17 17:14 Dose: 20 mg Nifedipine (Procardia Xl -) 30 mg PO DAILY [facility] Last Admin: 12/01/17 10:02 Dose: 30 mg Pantoprazole Sodium (Protonix -) 40 mg PO DAILY [facility] Last Admin: 12/01/17 10:02 Dose: 40 mg Polyethylene Glycol (Miralax (For Daily Use) -) 17 gm PO DAILY [facility] Last Admin: 12/01/17 10:03 Dose: Not Given Potassium Chloride (K-Dur -) 40 meq PO DAILY [facility] Last Admin: 12/01/17 10:02 Dose: 40 meq Rosuvastatin Calcium (Crestor -) 10 mg PO HS [facility] Last Admin: 11/30/17 21:54 Dose: 10 mg Senna (Senna -) 2 tab PO HS [facility] Last Admin: 11/30/17 21:54 Dose: 2 tab Tiotropium [place] (Spiriva -) 1 puff IH DAILY [facility] Last Admin: 12/01/17 10:03 Dose: 1 inh Valsartan (Diovan -) 160 mg PO DAILY [facility] Last Admin: 12/01/17 10:02 Dose: 160 mg - Objective Vital Signs: Vital Signs Temperature 98.1 F 12/01/17 14:00 Pulse Rate 101 H 12/01/17 14:00 Respiratory Rate 22 12/01/17 10:00 Blood Pressure 123/77 12/01/17 14:00 O2 Sat by Pulse Oximetry (%) 94 L 12/01/17 10:00 Labs: CBC, BMP 11/30/17 06:20 11/30/17 06:20 INR, PTT INR 1.60 (0.82-1.09) H 12/01/17 17:45 Problem List - Problems (1) Influenza Code(s): J11.1 - FLU DUE TO UNIDENTIFIED INFLUENZA VIRUS W OTH RESP MANIFEST (2) Acute on chronic respiratory failure with hypoxia and hypercapnia Code(s): J96.21 - ACUTE AND CHRONIC RESPIRATORY FAILURE WITH HYPOXIA; J96.22 - ACUTE AND CHRONIC RESPIRATORY FAILURE WITH HYPERCAPNIA (3) COPD (chronic obstructive pulmonary disease) Code(s): J44.9 - CHRONIC OBSTRUCTIVE PULMONARY DISEASE, UNSPECIFIED (4) Anemia Code(s): D64.9 - ANEMIA, UNSPECIFIED Qualifiers: Anemia type: unspecified type Qualified Code(s): D64.9 - Anemia, unspecified (5) Chronic diastolic (congestive) heart failure Code(s): I50.32 - CHRONIC DIASTOLIC (CONGESTIVE) HEART FAILURE (6) History of pulmonary embolism Code(s): Z86.711 - PERSONAL HISTORY OF PULMONARY EMBOLISM (7) Hypertension Code(s): I10 - ESSENTIAL (PRIMARY) HYPERTENSION (8) CKD (chronic kidney disease) Code(s): N18.9 - CHRONIC KIDNEY DISEASE, UNSPECIFIED (9) HLD (hyperlipidemia) Code(s): E78.5 - HYPERLIPIDEMIA, UNSPECIFIED (10) GERD (gastroesophageal reflux disease) Code(s): K21.9 - GASTRO-ESOPHAGEAL REFLUX DISEASE WITHOUT ESOPHAGITIS (11) Diabetes Code(s): E11.9 - TYPE 2 DIABETES MELLITUS WITHOUT COMPLICATIONS (12) Morbid obesity Code(s): E66.01 - MORBID (SEVERE) OBESITY DUE TO EXCESS CALORIES
[2017-12-01] MEDS: ROSUVASTATIN CA 10 MG TABLET (FP) PO SCH (21:11)
[2017-12-01] MEDS: SENNOSIDES 8.6MG TABLET (FP) PO SCH (21:11)
[2017-12-01] MEDS ORDERED: INSULIN (NOVOLOG) ASPART 100 UNITS/ML 10ML VIAL ONE (21:16)
[2017-12-02] MEDS: methylPREDNISolone NA SUCC 40 MG/1 ML VIAL IVPUSH SCH ×3 (02:45→17:14)
[2017-12-02] MEDS: INSULIN SLIDING SCALE (NOVOLOG) 1 VIAL SQ SCH ×4 (06:39→21:23)
[2017-12-02] MEDS: FUROSEMIDE 40 MG/4 ML INJECTABLE VIAL IVPUSH SCH ×2 (06:39→17:14)
[2017-12-02] MEDS: ALBUTEROL SO4 0.083% IH SOL 2.5 MG/3 ML VIAL.NEB. NEB PRN ×3 (07:32→21:21)
[2017-12-02] MEDS: FERROUS SO4 325 MG TABLET (FP) PO SCH ×3 (07:54→17:14)
[2017-12-02 08:26] LABS: INR 1.78 (0.82-1.09); PROTHROMBIN TIME (PATIENT) 20.1 SEC (9.98-11.88)
[2017-12-02] MEDS ORDERED: PT OWN MED DRAWER 7, Y5N ONE (09:31)
[2017-12-02] MEDS: CEFTRIAXONE 1 G/50 ML PREMIX 50 ML IVPB SCH (09:45)
[2017-12-02] MEDS: NIFEdipine E.R. 30 MG TABLET (FP) PO SCH (09:47)
[2017-12-02] MEDS: POTASSIUM CHLORIDE TABS 20 MEQ TABLET.ER (FP) PO SCH (09:47)
[2017-12-02] MEDS: PANTOPRAZOLE 40 MG TABLET (FP) PO SCH (09:47)
[2017-12-02] MEDS: VALSARTAN 160 MG TABLET (UD) PO SCH (09:47)
[2017-12-02] MEDS: TIOTROPIUM BROMIDE 18 MCG/INH (DEVICE W/ 5 CAPSULES) IH SCH (09:48)
[2017-12-02] MEDS: POLYETHYLENE GLYCOL 3350 119 GM BTL PO SCH (09:50)
[2017-12-02] MEDS: BUDESONIDE/FORMETEROL FUMARATE 160/4.5 mcg INHALER IH SCH ×2 (09:50→21:23)
[2017-12-02] MEDS ORDERED: INSULIN (NOVOLOG) ASPART 100 UNITS/ML 10ML VIAL ONE ×2 (12:31→21:18)
--- NOTE | 2017-12-02 14:59 | PN ---
Progress Note, Physician History of Present Illness: pulmonary alert,feeling better,less dyspneic - Current Medication List Current Medications: Active Medications Albuterol Sulfate (Ventolin 0.083% Nebulizer Soln -) 1 amp NEB Q4H PRN PRN Reason: SHORT OF BREATH/WHEEZING Last Admin: 12/02/17 07:32 Dose: 1 amp Budesonide/Formoterol Fumarate (Symbicort 160/4.5mcg -) 2 puff IH BID [facility] Last Admin: 12/02/17 09:50 Dose: 2 puff Ferrous Sulfate (Feosol -) 325 mg PO TIDCM [facility] Last Admin: 12/02/17 12:38 Dose: 325 mg Furosemide (Lasix Injection -) 40 mg IVPUSH BID@0600,1400 [facility] Last Admin: 12/02/17 06:39 Dose: 40 mg Guaifenesin (Robitussin -) 10 ml PO Q6H PRN PRN Reason: COUGH Last Admin: 12/01/17 10:03 Dose: 10 ml CEFTRIAXONE 1 G/50 ML PREMIX (Ceftriaxone 1 Gm-D5w Bag) 50 mls @ 100 mls/hr IVPB DAILY [facility] Last Admin: 12/02/17 09:45 Dose: 100 mls/hr Insulin Aspart (Novolog Vial Sliding Scale -) 1 vial SQ ACHS [facility] PRN Reason: Protocol Last Admin: 12/02/17 12:38 Dose: 6 units Methylprednisolone Sodium Succinate (Solu-Medrol -) 20 mg IVPUSH Q8H-IV [facility] Last Admin: 12/02/17 09:46 Dose: 20 mg Nifedipine (Procardia Xl -) 30 mg PO DAILY [facility] Last Admin: 12/02/17 09:47 Dose: 30 mg Pantoprazole Sodium (Protonix -) 40 mg PO DAILY [facility] Last Admin: 12/02/17 09:47 Dose: 40 mg Polyethylene Glycol (Miralax (For Daily Use) -) 17 gm PO DAILY [facility] Last Admin: 12/02/17 09:50 Dose: Not Given Potassium Chloride (K-Dur -) 40 meq PO DAILY [facility] Last Admin: 12/02/17 09:47 Dose: 40 meq Rosuvastatin Calcium (Crestor -) 10 mg PO HS [facility] Last Admin: 12/01/17 21:11 Dose: 10 mg Senna (Senna -) 2 tab PO HS [facility] Last Admin: 12/01/17 21:11 Dose: 2 tab Tiotropium [place] (Spiriva -) 1 puff IH DAILY [facility] Last Admin: 12/02/17 09:48 Dose: 1 inh Valsartan (Diovan -) 160 mg PO DAILY [facility] Last Admin: 12/02/17 09:47 Dose: 160 mg - Objective Vital Signs: Vital Signs Temperature 98.1 F 12/02/17 14:50 Pulse Rate 91 H 12/02/17 14:50 Respiratory Rate 20 12/02/17 05:44 Blood Pressure 136/69 12/02/17 14:50 O2 Sat by Pulse Oximetry (%) 95 12/01/17 21:00 Constitutional: Yes: Calm, Obese Eyes: Yes: WNL HENT: Yes: WNL Neck: Yes: WNL Cardiovascular: Yes: Regular Rate and Rhythm, S1, S2 Respiratory: Yes: Wheezes (few scattered wheezes) Gastrointestinal: Yes: Normal Bowel Sounds, Soft Extremities: Yes: WNL Edema: Yes Labs: CBC, BMP Problem List - Problems (1) CKD (chronic kidney disease) Code(s): N18.9 - CHRONIC KIDNEY DISEASE, UNSPECIFIED (2) COPD (chronic obstructive pulmonary disease) Code(s): J44.9 - CHRONIC OBSTRUCTIVE PULMONARY DISEASE, UNSPECIFIED (3) Diabetes Code(s): E11.9 - TYPE 2 DIABETES MELLITUS WITHOUT COMPLICATIONS (4) GERD (gastroesophageal reflux disease) Code(s): K21.9 - GASTRO-ESOPHAGEAL REFLUX DISEASE WITHOUT ESOPHAGITIS (5) Influenza Code(s): J11.1 - FLU DUE TO UNIDENTIFIED INFLUENZA VIRUS W OTH RESP MANIFEST (6) Respiratory distress Code(s): R06.03 - ACUTE RESPIRATORY DISTRESS (7) Acute on chronic respiratory failure with hypoxia and hypercapnia Code(s): J96.21 - ACUTE AND CHRONIC RESPIRATORY FAILURE WITH HYPOXIA; J96.22 - ACUTE AND CHRONIC RESPIRATORY FAILURE WITH HYPERCAPNIA (8) Coronary artery disease Code(s): I25.10 - ATHSCL HEART DISEASE OF [place] CORONARY ARTERY W/O ANG PCTRS (9) HLD (hyperlipidemia) Code(s): E78.5 - HYPERLIPIDEMIA, UNSPECIFIED (10) History of pulmonary embolism Code(s): Z86.711 - PERSONAL HISTORY OF PULMONARY EMBOLISM (11) Hypertension Code(s): I10 - ESSENTIAL (PRIMARY) HYPERTENSION (12) 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 terminal 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 anticoagulant Code(s): Z79.01 - CLIENT ACCOUNT MANAGER (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 OF 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 (13) Morbid obesity Code(s): E66.01 - MORBID (SEVERE) OBESITY DUE TO EXCESS CALORIES (14) SOB (shortness of breath) Code(s): R06.02 - SHORTNESS OF BREATH Assessment/Plan A/P Acute on Chronic Hypoxic and Hypercapneic Respiratory Failure improving Influenza A Acute COPD Exacerbation LV Diastolic Dysfunction h/o PE h/o CVA DM CKD Anemia - continue empiric antibiotics - continue steroid taper - inhaled bronchodilators standing and PRN - continue IV lasix - monitor urine output, creatinine - monitor H/H - O2 to keep SpO2 >90% - BiPAP if pt allows - anticoagulation DR FOX
--- NOTE | 2017-12-02 15:28 | PN ---
Progress Note, Physician History of Present Illness: patient stable feels that she is improving - Current Medication List Current Medications: Active Medications Albuterol Sulfate (Ventolin 0.083% Nebulizer Soln -) 1 amp NEB Q4H PRN PRN Reason: SHORT OF BREATH/WHEEZING Last Admin: 12/02/17 07:32 Dose: 1 amp Budesonide/Formoterol Fumarate (Symbicort 160/4.5mcg -) 2 puff IH BID [facility] Last Admin: 12/02/17 09:50 Dose: 2 puff Ferrous Sulfate (Feosol -) 325 mg PO TIDCM [facility] Last Admin: 12/02/17 12:38 Dose: 325 mg Furosemide (Lasix Injection -) 40 mg IVPUSH BID@0600,1400 [facility] Last Admin: 12/02/17 06:39 Dose: 40 mg Guaifenesin (Robitussin -) 10 ml PO Q6H PRN PRN Reason: COUGH Last Admin: 12/01/17 10:03 Dose: 10 ml CEFTRIAXONE 1 G/50 ML PREMIX (Ceftriaxone 1 Gm-D5w Bag) 50 mls @ 100 mls/hr IVPB DAILY [facility] Last Admin: 12/02/17 09:45 Dose: 100 mls/hr Insulin Aspart (Novolog Vial Sliding Scale -) 1 vial SQ ACHS [facility] PRN Reason: Protocol Last Admin: 12/02/17 12:38 Dose: 6 units Methylprednisolone Sodium Succinate (Solu-Medrol -) 20 mg IVPUSH Q8H-IV [facility] Stop: 12/02/17 23:00 Last Admin: 12/02/17 09:46 Dose: 20 mg Nifedipine (Procardia Xl -) 30 mg PO DAILY [facility] Last Admin: 12/02/17 09:47 Dose: 30 mg Pantoprazole Sodium (Protonix -) 40 mg PO DAILY [facility] Last Admin: 12/02/17 09:47 Dose: 40 mg Polyethylene Glycol (Miralax (For Daily Use) -) 17 gm PO DAILY [facility] Last Admin: 12/02/17 09:50 Dose: Not Given Potassium Chloride (K-Dur -) 40 meq PO DAILY [facility] Last Admin: 12/02/17 09:47 Dose: 40 meq Prednisone (Deltasone -) 60 mg PO DAILY [facility] Rosuvastatin Calcium (Crestor -) 10 mg PO HS [facility] Last Admin: 12/01/17 21:11 Dose: 10 mg Senna (Senna -) 2 tab PO HS [facility] Last Admin: 12/01/17 21:11 Dose: 2 tab Tiotropium [place] (Spiriva -) 1 puff IH DAILY [facility] Last Admin: 12/02/17 09:48 Dose: 1 inh Valsartan (Diovan -) 160 mg PO DAILY [facility] Last Admin: 12/02/17 09:47 Dose: 160 mg - Objective Vital Signs: Vital Signs Temperature 98.1 F 12/02/17 14:50 Pulse Rate 91 H 12/02/17 14:50 Respiratory Rate 20 12/02/17 10:00 Blood Pressure 136/69 12/02/17 14:50 O2 Sat by Pulse Oximetry (%) 95 12/02/17 09:00 Constitutional: Yes: No Distress, Calm, Obese Cardiovascular: Yes: Regular Rate and Rhythm Respiratory: Yes: Regular, Poor Air Entry (bases) Gastrointestinal: Yes: Normal Bowel Sounds, Soft Musculoskeletal: Yes: WNL Extremities: Yes: WNL Neurological: Yes: Alert, Oriented Psychiatric: Yes: Alert, Oriented Labs: CBC, BMP 11/30/17 06:20 11/30/17 06:20 INR, PTT INR 1.78 (0.82-1.09) H 12/02/17 06:35 Assessment/Plan this patient with multiple comorbid condition and with flu and positive xray findings Problem List - Problems (1) Influenza Code(s): J11.1 - FLU DUE TO UNIDENTIFIED INFLUENZA VIRUS W OTH RESP MANIFEST (2) Acute on chronic respiratory failure with hypoxia and hypercapnia Assessment/Plan: Code(s): J96.21 - ACUTE AND CHRONIC RESPIRATORY FAILURE WITH HYPOXIA; J96.22 - ACUTE AND CHRONIC RESPIRATORY FAILURE WITH HYPERCAPNIA (3) Anemia Code(s): D64.9 - ANEMIA, UNSPECIFIED Qualifiers: Anemia type: unspecified type Qualified Code(s): D64.9 - Anemia, unspecified (4) Chronic diastolic (congestive) heart failure Code(s): I50.32 - CHRONIC DIASTOLIC (CONGESTIVE) HEART FAILURE (5) Hypertension Code(s): I10 - ESSENTIAL (PRIMARY) HYPERTENSION (6) Pulmonary embolus Code(s): I26.99 - OTHER PULMONARY EMBOLISM WITHOUT ACUTE COR PULMONALE (7) Coronary artery disease Code(s): I25.10 - ATHSCL HEART DISEASE OF [place] CORONARY ARTERY W/O ANG PCTRS (8) skilled nursing current use of anticoagulant Code(s): Z79.01 - GRADE [employer]EM[employer] (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 OF 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 9) uti plan continue current mgmt will stop abx off of isolation wbc on higher side
[2017-12-02] MEDS ORDERED: WARFARIN NA 7.5 MG TABLET (FP) PO ONE (20:00)
[2017-12-02] MEDS: ROSUVASTATIN CA 10 MG TABLET (FP) PO SCH (21:22)
[2017-12-02] MEDS: SENNOSIDES 8.6MG TABLET (FP) PO SCH (21:23)
--- NOTE | 2017-12-02 23:21 | PN ---
Progress Note, Physician History of Present Illness: Pt w/ some SOB - Current Medication List Current Medications: Active Medications Albuterol Sulfate (Ventolin 0.083% Nebulizer Soln -) 1 amp NEB Q4H PRN PRN Reason: SHORT OF BREATH/WHEEZING Last Admin: 12/02/17 21:21 Dose: 1 amp Budesonide/Formoterol Fumarate (Symbicort 160/4.5mcg -) 2 puff IH BID [facility] Last Admin: 12/02/17 21:23 Dose: 2 puff Ferrous Sulfate (Feosol -) 325 mg PO TIDCM [facility] Last Admin: 12/02/17 17:14 Dose: 325 mg Furosemide (Lasix Injection -) 40 mg IVPUSH BID@0600,1400 [facility] Last Admin: 12/02/17 17:14 Dose: 40 mg Guaifenesin (Robitussin -) 10 ml PO Q6H PRN PRN Reason: COUGH Last Admin: 12/01/17 10:03 Dose: 10 ml Insulin Aspart (Novolog Vial Sliding Scale -) 1 vial SQ ACHS [facility] PRN Reason: Protocol Last Admin: 12/02/17 21:23 Dose: 6 units Nifedipine (Procardia Xl -) 30 mg PO DAILY [facility] Last Admin: 12/02/17 09:47 Dose: 30 mg Pantoprazole Sodium (Protonix -) 40 mg PO DAILY [facility] Last Admin: 12/02/17 09:47 Dose: 40 mg Polyethylene Glycol (Miralax (For Daily Use) -) 17 gm PO DAILY [facility] Last Admin: 12/02/17 09:50 Dose: Not Given Potassium Chloride (K-Dur -) 40 meq PO DAILY [facility] Last Admin: 12/02/17 09:47 Dose: 40 meq Prednisone (Deltasone -) 60 mg PO DAILY [facility] Rosuvastatin Calcium (Crestor -) 10 mg PO HS [facility] Last Admin: 12/02/17 21:22 Dose: 10 mg Senna (Senna -) 2 tab PO HS [facility] Last Admin: 12/02/17 21:23 Dose: 2 tab Tiotropium [place] (Spiriva -) 1 puff IH DAILY [facility] Last Admin: 12/02/17 09:48 Dose: 1 inh Valsartan (Diovan -) 160 mg PO DAILY [facility] Last Admin: 12/02/17 09:47 Dose: 160 mg - Objective Vital Signs: Vital Signs Temperature 98.1 F 12/02/17 14:50 Pulse Rate 91 H 12/02/17 14:50 Respiratory Rate 20 12/02/17 19:56 Blood Pressure 136/69 12/02/17 14:50 O2 Sat by Pulse Oximetry (%) 94 L 12/02/17 19:56 HENT: Yes: WNL Neck: Yes: WNL, Supple Cardiovascular: Yes: WNL, Regular Rate and Rhythm Respiratory: Yes: Wheezes Gastrointestinal: Yes: WNL, Normal Bowel Sounds, Soft Labs: CBC, BMP 11/30/17 06:20 11/30/17 06:20 INR, PTT INR 1.78 (0.82-1.09) H 12/02/17 06:35 Problem List - Problems (1) Influenza Assessment/Plan: Pt finished course of tamiflu Code(s): J11.1 - FLU DUE TO UNIDENTIFIED INFLUENZA VIRUS W OTH RESP MANIFEST (2) Acute on chronic respiratory failure with hypoxia and hypercapnia Assessment/Plan: Cont nebulizers Cont present dose IV steroids Cont IV ceftriaxone Code(s): J96.21 - ACUTE AND CHRONIC RESPIRATORY FAILURE WITH HYPOXIA; J96.22 - ACUTE AND CHRONIC RESPIRATORY FAILURE WITH HYPERCAPNIA (3) COPD (chronic obstructive pulmonary disease) Assessment/Plan: Cont symbicort/spireva Code(s): J44.9 - CHRONIC OBSTRUCTIVE PULMONARY DISEASE, UNSPECIFIED (4) History of pulmonary embolism Assessment/Plan: Coumadin dose increased due to subtherapeutic pt/inr monitor pt/inr Code(s): Z86.711 - PERSONAL HISTORY OF PULMONARY EMBOLISM (5) Anemia Assessment/Plan: S/P transfusion 2 units PRBC's Monitor H/H Cont feosol Code(s): D64.9 - ANEMIA, UNSPECIFIED Qualifiers: Anemia type: unspecified type Qualified Code(s): D64.9 - Anemia, unspecified (6) Chronic diastolic (congestive) heart failure Assessment/Plan: Cont IV lasix Monitor electrolytes Code(s): I50.32 - CHRONIC DIASTOLIC (CONGESTIVE) HEART FAILURE (7) Hypertension Assessment/Plan: BP stable Cont diovan/procardia Code(s): I10 - ESSENTIAL (PRIMARY) HYPERTENSION (8) CKD (chronic kidney disease) Code(s): N18.9 - CHRONIC KIDNEY DISEASE, UNSPECIFIED (9) HLD (hyperlipidemia) Code(s): E78.5 - HYPERLIPIDEMIA, UNSPECIFIED (10) GERD (gastroesophageal reflux disease) Code(s): K21.9 - GASTRO-ESOPHAGEAL REFLUX DISEASE WITHOUT ESOPHAGITIS (11) Diabetes Code(s): E11.9 - TYPE 2 DIABETES MELLITUS WITHOUT COMPLICATIONS (12) Morbid obesity Code(s): E66.01 - MORBID (SEVERE) OBESITY DUE TO EXCESS CALORIES
[2017-12-03] MEDS: FUROSEMIDE 40 MG/4 ML INJECTABLE VIAL IVPUSH SCH ×2 (06:15→14:33)
[2017-12-03] MEDS: INSULIN SLIDING SCALE (NOVOLOG) 1 VIAL SQ SCH ×5 (06:18→21:34)
[2017-12-03] MEDS: ALBUTEROL SO4 0.083% IH SOL 2.5 MG/3 ML VIAL.NEB. NEB PRN ×4 (07:44→20:41)
[2017-12-03 08:23] LABS: INR 2.81 (0.82-1.09); PROTHROMBIN TIME (PATIENT) 31.8 SEC (9.98-11.88)
[2017-12-03] MEDS: FERROUS SO4 325 MG TABLET (FP) PO SCH ×3 (08:36→17:16)
--- NOTE | 2017-12-03 10:55 | PN ---
Progress Note, Physician History of Present Illness: seen and examined today in nad. states she is feeling better overall. still wheezing and coughing. - Current Medication List Current Medications: Active Medications Albuterol Sulfate (Ventolin 0.083% Nebulizer Soln -) 1 amp NEB Q4H PRN PRN Reason: SHORT OF BREATH/WHEEZING Last Admin: 12/03/17 07:44 Dose: 1 amp Budesonide/Formoterol Fumarate (Symbicort 160/4.5mcg -) 2 puff IH BID [facility] Last Admin: 12/02/17 21:23 Dose: 2 puff Ferrous Sulfate (Feosol -) 325 mg PO TIDCM [facility] Last Admin: 12/03/17 08:36 Dose: 325 mg Furosemide (Lasix Injection -) 40 mg IVPUSH BID@0600,1400 [facility] Last Admin: 12/03/17 06:15 Dose: 40 mg Guaifenesin (Robitussin -) 10 ml PO Q6H PRN PRN Reason: COUGH Last Admin: 12/01/17 10:03 Dose: 10 ml Insulin Aspart (Novolog Vial Sliding Scale -) 1 vial SQ ACHS [facility] PRN Reason: Protocol Last Admin: 12/03/17 06:18 Dose: 4 units Nifedipine (Procardia Xl -) 30 mg PO DAILY [facility] Last Admin: 12/02/17 09:47 Dose: 30 mg Pantoprazole Sodium (Protonix -) 40 mg PO DAILY [facility] Last Admin: 12/02/17 09:47 Dose: 40 mg Polyethylene Glycol (Miralax (For Daily Use) -) 17 gm PO DAILY [facility] Last Admin: 12/02/17 09:50 Dose: Not Given Potassium Chloride (K-Dur -) 40 meq PO DAILY [facility] Last Admin: 12/02/17 09:47 Dose: 40 meq Prednisone (Deltasone -) 60 mg PO DAILY [facility] Rosuvastatin Calcium (Crestor -) 10 mg PO HS [facility] Last Admin: 12/02/17 21:22 Dose: 10 mg Senna (Senna -) 2 tab PO HS [facility] Last Admin: 12/02/17 21:23 Dose: 2 tab Tiotropium [place] (Spiriva -) 1 puff IH DAILY [facility] Last Admin: 12/02/17 09:48 Dose: 1 inh Valsartan (Diovan -) 160 mg PO DAILY [facility] Last Admin: 12/02/17 09:47 Dose: 160 mg - Objective Vital Signs: Vital Signs Temperature 98.5 F 12/03/17 06:00 Pulse Rate 101 H 12/03/17 06:00 Respiratory Rate 20 12/03/17 06:00 Blood Pressure 121/61 12/03/17 06:00 O2 Sat by Pulse Oximetry (%) 94 L 12/02/17 19:56 Constitutional: Yes: No Distress, Calm, Obese Eyes: Yes: Conjunctiva Clear, EOM Intact, PERRL HENT: Yes: Atraumatic, Normocephalic Neck: Yes: Supple, Trachea Midline Cardiovascular: Yes: Regular Rate and Rhythm, S1, S2. No: Bradycardia, Tachycardia, Pulse Irregular, Bruit, JVD, Gallop, Murmur, Rub, S3, S4, Varicosities Respiratory: Yes: Regular, Diminished, On Nasal O2, Rhonchi, Wheezes. No: Rales , SOB Gastrointestinal: Yes: Normal Bowel Sounds, Soft. No: Distention, Tenderness Musculoskeletal: Yes: WNL Extremities: Yes: WNL Edema: LLE: Trace, RLE: Trace Peripheral Pulses WNL: Yes Peripheral Pulses: Left Doralis Pedis: 2+, Right Dorsalis Pedis: 2+ Neurological: Yes: Alert, Oriented Psychiatric: Yes: Alert, Oriented Labs: CBC, BMP 11/30/17 06:20 11/30/17 06:20 INR, PTT INR 2.81 (0.82-1.09) H D 12/03/17 07:00 - ....Imaging Chest X-ray: Report Reviewed, Image Reviewed EKG: Report Reviewed, Image Reviewed Other: Report Reviewed, Image Reviewed Assessment/Plan IMP: Influenza + Chronic COPD, with acute exacerbation triggered by viral illness History of Pulmonary Embolism on Coumadin PAF Hypokalemia Hypomagnesemia Elevated INR REC: 1. Maintain K+ and Mg2+ 2. INR was supratherapeutic, now back within range, dose Coumadin for goal INR 2 -3 for h/o PE 3. Pulmonary following, steroids/nebs/supplimental O2 as per their reccs. Received Tamiflu 4. Now off tele 5. Cont IV Lasix at current dose for now, pt tends to develop volume overload while receiving steroids, if steroids dcd can likely transition to po Lasix
[2017-12-03] MEDS: BUDESONIDE/FORMETEROL FUMARATE 160/4.5 mcg INHALER IH SCH ×2 (11:32→21:35)
--- NOTE | 2017-12-03 11:37 | PN ---
Progress Note (short form) - Note Progress Note: PULMONARY Breathing slowly improving. Cough and wheezing less. Last Vital Signs Temp Pulse Resp BP Pulse Ox 98.5 F 101 H 20 121/61 94 L 12/03/17 06:00 12/03/17 06:00 12/03/17 06:00 12/03/17 06:00 12/02/17 19:56 Gen: less tachypneic at rest Heart: tachycardic, regular Lung: scattered rhonchi, wheezes Abd: soft, nontender Ext: no edema CBC, BMP 11/30/17 06:20 11/30/17 06:20 Active Medications Albuterol Sulfate (Ventolin 0.083% Nebulizer Soln -) 1 amp NEB Q4H PRN PRN Reason: SHORT OF BREATH/WHEEZING Last Admin: 12/03/17 07:44 Dose: 1 amp Budesonide/Formoterol Fumarate (Symbicort 160/4.5mcg -) 2 puff IH BID [facility] Last Admin: 12/02/17 21:23 Dose: 2 puff Ferrous Sulfate (Feosol -) 325 mg PO TIDCM [facility] Last Admin: 12/03/17 08:36 Dose: 325 mg Furosemide (Lasix Injection -) 40 mg IVPUSH BID@0600,1400 [facility] Last Admin: 12/03/17 06:15 Dose: 40 mg Guaifenesin (Robitussin -) 10 ml PO Q6H PRN PRN Reason: COUGH Last Admin: 12/01/17 10:03 Dose: 10 ml Insulin Aspart (Novolog Vial Sliding Scale -) 1 vial SQ ACHS [facility] PRN Reason: Protocol Last Admin: 12/03/17 06:18 Dose: 4 units Nifedipine (Procardia Xl -) 30 mg PO DAILY [facility] Last Admin: 12/02/17 09:47 Dose: 30 mg Pantoprazole Sodium (Protonix -) 40 mg PO DAILY [facility] Last Admin: 12/02/17 09:47 Dose: 40 mg Polyethylene Glycol (Miralax (For Daily Use) -) 17 gm PO DAILY [facility] Last Admin: 12/02/17 09:50 Dose: Not Given Potassium Chloride (K-Dur -) 40 meq PO DAILY [facility] Last Admin: 12/02/17 09:47 Dose: 40 meq Prednisone (Deltasone -) 60 mg PO DAILY [facility] Rosuvastatin Calcium (Crestor -) 10 mg PO HS [facility] Last Admin: 12/02/17 21:22 Dose: 10 mg Senna (Senna -) 2 tab PO HS [facility] Last Admin: 12/02/17 21:23 Dose: 2 tab Tiotropium [place] (Spiriva -) 1 puff IH DAILY [facility] Last Admin: 12/02/17 09:48 Dose: 1 inh Valsartan (Diovan -) 160 mg PO DAILY [facility] Last Admin: 12/02/17 09:47 Dose: 160 mg A/P Acute on Chronic Hypoxic and Hypercapneic Respiratory Failure improving Influenza A treated Acute COPD Exacerbation improving LV Diastolic Dysfunction h/o PE h/o CVA DM CKD Anemia - completed tamiflu - continue empiric antibiotics - prednisone taper - inhaled bronchodilators standing and PRN - continue lasix - monitor urine output, creatinine - monitor H/H - transfuse as needed - O2 to keep SpO2 >90% - BiPAP if pt allows - continue anticoagulation - can d/c to SNF from pulmonary standpoint
[2017-12-03] MEDS ORDERED: PT OWN MED DRAWER 7, Y5N ONE ×2 (11:55→21:20)
[2017-12-03] MEDS: TIOTROPIUM BROMIDE 18 MCG/INH (DEVICE W/ 5 CAPSULES) IH SCH (12:10)
[2017-12-03] MEDS: predniSONE 20 MG TABLET (UD) PO SCH (12:10)
[2017-12-03] MEDS: PANTOPRAZOLE 40 MG TABLET (FP) PO SCH (12:11)
[2017-12-03] MEDS: POTASSIUM CHLORIDE TABS 20 MEQ TABLET.ER (FP) PO SCH (12:11)
[2017-12-03] MEDS: VALSARTAN 160 MG TABLET (UD) PO SCH (12:11)
[2017-12-03] MEDS: NIFEdipine E.R. 30 MG TABLET (FP) PO SCH (12:12)
[2017-12-03] MEDS: POLYETHYLENE GLYCOL 3350 119 GM BTL PO SCH (12:13)
--- NOTE | 2017-12-03 12:32 | PN ---
Progress Note, Physician History of Present Illness: stable no new issues - Current Medication List Current Medications: Active Medications Albuterol Sulfate (Ventolin 0.083% Nebulizer Soln -) 1 amp NEB Q4H PRN PRN Reason: SHORT OF BREATH/WHEEZING Last Admin: 12/03/17 12:17 Dose: 1 amp Budesonide/Formoterol Fumarate (Symbicort 160/4.5mcg -) 2 puff IH BID [facility] Last Admin: 12/02/17 21:23 Dose: 2 puff Ferrous Sulfate (Feosol -) 325 mg PO TIDCM [facility] Last Admin: 12/03/17 12:10 Dose: 325 mg Furosemide (Lasix Injection -) 40 mg IVPUSH BID@0600,1400 [facility] Last Admin: 12/03/17 06:15 Dose: 40 mg Guaifenesin (Robitussin -) 10 ml PO Q6H PRN PRN Reason: COUGH Last Admin: 12/01/17 10:03 Dose: 10 ml Insulin Aspart (Novolog Vial Sliding Scale -) 1 vial SQ ACHS [facility] PRN Reason: Protocol Last Admin: 12/03/17 12:14 Dose: 2 units Nifedipine (Procardia Xl -) 30 mg PO DAILY [facility] Last Admin: 12/03/17 12:12 Dose: 30 mg Pantoprazole Sodium (Protonix -) 40 mg PO DAILY [facility] Last Admin: 12/03/17 12:11 Dose: 40 mg Polyethylene Glycol (Miralax (For Daily Use) -) 17 gm PO DAILY [facility] Last Admin: 12/03/17 12:13 Dose: Not Given Potassium Chloride (K-Dur -) 40 meq PO DAILY [facility] Last Admin: 12/03/17 12:11 Dose: 40 meq Prednisone (Deltasone -) 60 mg PO DAILY [facility] Last Admin: 12/03/17 12:10 Dose: 60 mg Rosuvastatin Calcium (Crestor -) 10 mg PO HS [facility] Last Admin: 12/02/17 21:22 Dose: 10 mg Senna (Senna -) 2 tab PO HS [facility] Last Admin: 12/02/17 21:23 Dose: 2 tab Tiotropium [place] (Spiriva -) 1 puff IH DAILY [facility] Last Admin: 12/03/17 12:10 Dose: 1 inh Valsartan (Diovan -) 160 mg PO DAILY [facility] Last Admin: 12/03/17 12:11 Dose: 160 mg - Objective Vital Signs: Vital Signs Temperature 98.5 F 12/03/17 06:00 Pulse Rate 101 H 12/03/17 06:00 Respiratory Rate 20 12/03/17 06:00 Blood Pressure 121/61 12/03/17 06:00 O2 Sat by Pulse Oximetry (%) 94 L 12/02/17 19:56 Constitutional: Yes: No Distress, Calm Cardiovascular: Yes: S1, S2 Respiratory: Yes: Poor Air Entry, Other Gastrointestinal: Yes: Normal Bowel Sounds, Soft Musculoskeletal: Yes: WNL Extremities: Yes: WNL Neurological: Yes: Alert, Oriented Psychiatric: Yes: Alert, Oriented Labs: CBC, BMP 11/30/17 06:20 11/30/17 06:20 INR, PTT INR 2.81 (0.82-1.09) H D 12/03/17 07:00 Assessment/Plan this patient with multiple comorbid condition and with flu and positive xray findings Problem List - Problems (1) Influenza Code(s): J11.1 - FLU DUE TO UNIDENTIFIED INFLUENZA VIRUS W OTH RESP MANIFEST (2) Acute on chronic respiratory failure with hypoxia and hypercapnia Assessment/Plan: Code(s): J96.21 - ACUTE AND CHRONIC RESPIRATORY FAILURE WITH HYPOXIA; J96.22 - ACUTE AND CHRONIC RESPIRATORY FAILURE WITH HYPERCAPNIA (3) Anemia Code(s): D64.9 - ANEMIA, UNSPECIFIED Qualifiers: Anemia type: unspecified type Qualified Code(s): D64.9 - Anemia, unspecified (4) Chronic diastolic (congestive) heart failure Code(s): I50.32 - CHRONIC DIASTOLIC (CONGESTIVE) HEART FAILURE (5) Hypertension Code(s): I10 - ESSENTIAL (PRIMARY) HYPERTENSION (6) Pulmonary embolus Code(s): I26.99 - OTHER PULMONARY EMBOLISM WITHOUT ACUTE COR PULMONALE (7) Coronary artery disease Code(s): I25.10 - ATHSCL HEART DISEASE OF [place] CORONARY ARTERY W/O ANG PCTRS (8) terminal operations manager current use of anticoagulant Code(s): Z79.01 - NETWORK OPERATIONS MANAGER (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 OF 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 9) uti plan continue current mgmt stable off of abx off of isolation continue to monitor
--- NOTE | 2017-12-03 20:13 | PN ---
Progress Note, Physician History of Present Illness: No new change - Current Medication List Current Medications: Active Medications Albuterol Sulfate (Ventolin 0.083% Nebulizer Soln -) 1 amp NEB Q4H PRN PRN Reason: SHORT OF BREATH/WHEEZING Last Admin: 12/03/17 16:33 Dose: 1 amp Budesonide/Formoterol Fumarate (Symbicort 160/4.5mcg -) 2 puff IH BID [facility] Last Admin: 12/03/17 11:32 Dose: 2 puff Ferrous Sulfate (Feosol -) 325 mg PO TIDCM [facility] Last Admin: 12/03/17 17:16 Dose: 325 mg Furosemide (Lasix Injection -) 40 mg IVPUSH BID@0600,1400 [facility] Last Admin: 12/03/17 14:33 Dose: 40 mg Guaifenesin (Robitussin -) 10 ml PO Q6H PRN PRN Reason: COUGH Last Admin: 12/01/17 10:03 Dose: 10 ml Insulin Aspart (Novolog Vial Sliding Scale -) 1 vial SQ ACHS [facility] PRN Reason: Protocol Last Admin: 12/03/17 17:16 Dose: 6 units Nifedipine (Procardia Xl -) 30 mg PO DAILY [facility] Last Admin: 12/03/17 12:12 Dose: 30 mg Pantoprazole Sodium (Protonix -) 40 mg PO DAILY [facility] Last Admin: 12/03/17 12:11 Dose: 40 mg Polyethylene Glycol (Miralax (For Daily Use) -) 17 gm PO DAILY [facility] Last Admin: 12/03/17 12:13 Dose: Not Given Potassium Chloride (K-Dur -) 40 meq PO DAILY [facility] Last Admin: 12/03/17 12:11 Dose: 40 meq Prednisone (Deltasone -) 60 mg PO DAILY [facility] Last Admin: 12/03/17 12:10 Dose: 60 mg Rosuvastatin Calcium (Crestor -) 10 mg PO HS [facility] Last Admin: 12/02/17 21:22 Dose: 10 mg Senna (Senna -) 2 tab PO HS [facility] Last Admin: 12/02/17 21:23 Dose: 2 tab Tiotropium [place] (Spiriva -) 1 puff IH DAILY [facility] Last Admin: 12/03/17 12:10 Dose: 1 inh Valsartan (Diovan -) 160 mg PO DAILY [facility] Last Admin: 12/03/17 12:11 Dose: 160 mg - Objective Vital Signs: Vital Signs Temperature 98.9 F 12/03/17 15:14 Pulse Rate 106 H 12/03/17 15:14 Respiratory Rate 20 12/03/17 09:00 Blood Pressure 133/66 12/03/17 15:14 O2 Sat by Pulse Oximetry (%) 94 L 12/03/17 09:00 Constitutional: Yes: Well Nourished HENT: Yes: WNL Neck: Yes: WNL, Supple Cardiovascular: Yes: WNL, Regular Rate and Rhythm Respiratory: Yes: Rhonchi Gastrointestinal: Yes: WNL, Normal Bowel Sounds, Soft, Abdomen, Obese Edema: No Labs: CBC, BMP 11/30/17 06:20 11/30/17 06:20 INR, PTT INR 2.81 (0.82-1.09) H D 12/03/17 07:00 Problem List - Problems (1) Acute on chronic respiratory failure with hypoxia and hypercapnia Assessment/Plan: Cont nebulizers Pt changed to prednisone Cont IV ceftriaxone Code(s): J96.21 - ACUTE AND CHRONIC RESPIRATORY FAILURE WITH HYPOXIA; J96.22 - ACUTE AND CHRONIC RESPIRATORY FAILURE WITH HYPERCAPNIA (2) COPD (chronic obstructive pulmonary disease) Assessment/Plan: Cont symbicort/spireva Code(s): J44.9 - CHRONIC OBSTRUCTIVE PULMONARY DISEASE, UNSPECIFIED (3) History of pulmonary embolism Assessment/Plan: Hold coumadin today monitor pt/inr Code(s): Z86.711 - PERSONAL HISTORY OF PULMONARY EMBOLISM (4) Anemia Assessment/Plan: S/P transfusion 2 units PRBC's Monitor H/H Cont feosol Code(s): D64.9 - ANEMIA, UNSPECIFIED Qualifiers: Anemia type: unspecified type Qualified Code(s): D64.9 - Anemia, unspecified (5) Chronic diastolic (congestive) heart failure Assessment/Plan: Cont IV lasix Monitor electrolytes Code(s): I50.32 - CHRONIC DIASTOLIC (CONGESTIVE) HEART FAILURE (6) Hypertension Code(s): I10 - ESSENTIAL (PRIMARY) HYPERTENSION (7) CKD (chronic kidney disease) Code(s): N18.9 - CHRONIC KIDNEY DISEASE, UNSPECIFIED (8) HLD (hyperlipidemia) Code(s): E78.5 - HYPERLIPIDEMIA, UNSPECIFIED (9) GERD (gastroesophageal reflux disease) Code(s): K21.9 - GASTRO-ESOPHAGEAL REFLUX DISEASE WITHOUT ESOPHAGITIS (10) Diabetes Code(s): E11.9 - TYPE 2 DIABETES MELLITUS WITHOUT COMPLICATIONS (11) Morbid obesity Code(s): E66.01 - MORBID (SEVERE) OBESITY DUE TO EXCESS CALORIES (12) Influenza Assessment/Plan: Pt finished course of tamiflu Code(s): J11.1 - FLU DUE TO UNIDENTIFIED INFLUENZA VIRUS W OTH RESP MANIFEST
[2017-12-03] MEDS: SENNOSIDES 8.6MG TABLET (FP) PO SCH (21:28)
[2017-12-03] MEDS: ROSUVASTATIN CA 10 MG TABLET (FP) PO SCH (21:28)
[2017-12-04] MEDS: ALBUTEROL SO4 0.083% IH SOL 2.5 MG/3 ML VIAL.NEB. NEB PRN ×4 (04:19→20:43)
[2017-12-04] MEDS: FUROSEMIDE 40 MG/4 ML INJECTABLE VIAL IVPUSH SCH ×2 (06:54→14:10)
[2017-12-04] MEDS: INSULIN SLIDING SCALE (NOVOLOG) 1 VIAL SQ SCH ×4 (06:55→21:41)
[2017-12-04 08:16] LABS: HEMATOCRIT 33.3 % (32.4-45.2); HEMOGLOBIN 9.6 GM/dL (10.7-15.3); MCH 24.1 pg (25.7-33.7); MCHC 28.9 g/dl (32.0-36.0); MEAN CELL VOLUME 83.2 fl (80-96); MEAN PLT VOLUME 9.2 fl (7.5-11.1); PLATELET COUNT 193 K/MM3 (134-434); RDW 15.9 % (11.6-15.6); WHITE BLOOD COUNT 17.8 K/mm3 (4.0-10.0)
[2017-12-04 08:28] LABS: PROTHROMBIN TIME (PATIENT) 48.7 SEC (9.98-11.88)
[2017-12-04 08:33] LABS: ALBUMIN 3.3 g/dl (3.4-5.0); BLOOD UREA NITROGEN 25 mg/dL (7-18); CALCIUM 8.8 mg/dL (8.5-10.1); CHLORIDE 89 mmol/L (98-107); GLUCOSE,RANDOM 153 mg/dL (74-106); SODIUM 140 mmol/L (136-145)
[2017-12-04 08:36] LABS: INR 4.31 (0.82-1.09)
[2017-12-04 08:37] LABS: ALK PHOS 50 U/L (45-117); BILIRUBIN,TOTAL 0.6 mg/dL (0.2-1.0); CREATININE 1.2 mg/dL (0.55-1.02); SGOT/AST 21 U/L (15-37); SGPT/ALT 37 U/L (12-78); TOT PROT 5.6 g/dl (6.4-8.2)
[2017-12-04] MEDS ORDERED: INSULIN (NOVOLOG) ASPART 100 UNITS/ML 10ML VIAL ONE ×3 (11:12→21:22)
[2017-12-04] MEDS: POTASSIUM CHLORIDE TABS 20 MEQ TABLET.ER (FP) PO SCH (11:14)
[2017-12-04] MEDS: VALSARTAN 160 MG TABLET (UD) PO SCH (11:14)
[2017-12-04] MEDS: TIOTROPIUM BROMIDE 18 MCG/INH (DEVICE W/ 5 CAPSULES) IH SCH (11:15)
[2017-12-04] MEDS: NIFEdipine E.R. 30 MG TABLET (FP) PO SCH (11:15)
[2017-12-04] MEDS: predniSONE 20 MG TABLET (UD) PO SCH (11:15)
[2017-12-04] MEDS: PANTOPRAZOLE 40 MG TABLET (FP) PO SCH (11:15)
[2017-12-04] MEDS: FERROUS SO4 325 MG TABLET (FP) PO SCH ×3 (11:15→19:30)
[2017-12-04] MEDS: POLYETHYLENE GLYCOL 3350 119 GM BTL PO SCH (11:15)
[2017-12-04] MEDS: BUDESONIDE/FORMETEROL FUMARATE 160/4.5 mcg INHALER IH SCH ×2 (11:16→21:45)
[2017-12-04 12:10] LABS: PLATELET ESTIMATE ADEQUATE
--- NOTE | 2017-12-04 14:02 | PN ---
Progress Note, Physician Chief Complaint: LESS COUGH History of Present Illness: REVIEWED - Current Medication List Current Medications: Active Medications Albuterol Sulfate (Ventolin 0.083% Nebulizer Soln -) 1 amp NEB Q4H PRN PRN Reason: SHORT OF BREATH/WHEEZING Last Admin: 12/04/17 07:52 Dose: 1 amp Budesonide/Formoterol Fumarate (Symbicort 160/4.5mcg -) 2 puff IH BID [facility] Last Admin: 12/04/17 11:16 Dose: 2 puff Ferrous Sulfate (Feosol -) 325 mg PO TIDCM [facility] Last Admin: 12/04/17 11:15 Dose: 325 mg Furosemide (Lasix Injection -) 40 mg IVPUSH BID@0600,1400 [facility] Last Admin: 12/04/17 06:54 Dose: 40 mg Guaifenesin (Robitussin -) 10 ml PO Q6H PRN PRN Reason: COUGH Last Admin: 12/01/17 10:03 Dose: 10 ml Insulin Aspart (Novolog Vial Sliding Scale -) 1 vial SQ ACHS [facility] PRN Reason: Protocol Last Admin: 12/04/17 11:25 Dose: 2 units Nifedipine (Procardia Xl -) 30 mg PO DAILY [facility] Last Admin: 12/04/17 11:15 Dose: 30 mg Pantoprazole Sodium (Protonix -) 40 mg PO DAILY [facility] Last Admin: 12/04/17 11:15 Dose: 40 mg Polyethylene Glycol (Miralax (For Daily Use) -) 17 gm PO DAILY [facility] Last Admin: 12/04/17 11:15 Dose: Not Given Potassium Chloride (K-Dur -) 40 meq PO DAILY [facility] Last Admin: 12/04/17 11:14 Dose: 40 meq Prednisone (Deltasone -) 60 mg PO DAILY [facility] Last Admin: 12/04/17 11:15 Dose: 60 mg Rosuvastatin Calcium (Crestor -) 10 mg PO HS [facility] Last Admin: 12/03/17 21:28 Dose: 10 mg Senna (Senna -) 2 tab PO HS [facility] Last Admin: 12/03/17 21:28 Dose: 2 tab Tiotropium [place] (Spiriva -) 1 puff IH DAILY [facility] Last Admin: 12/04/17 11:15 Dose: 1 inh Valsartan (Diovan -) 160 mg PO DAILY [facility] Last Admin: 12/04/17 11:14 Dose: 160 mg - Objective Vital Signs: Vital Signs Temperature 97.9 F 12/04/17 06:00 Pulse Rate 95 H 12/04/17 06:00 Respiratory Rate 14 12/04/17 06:00 Blood Pressure 131/55 12/04/17 06:00 O2 Sat by Pulse Oximetry (%) 95 12/03/17 22:00 Constitutional: Yes: Calm Eyes: Yes: EOM Intact HENT: Yes: Normocephalic Neck: Yes: Trachea Midline Cardiovascular: Yes: Regular Rate and Rhythm, S2 Respiratory: Yes: Diminished, Wheezes (MINIMAL END EXP WHEEZE) Gastrointestinal: Yes: Abdomen, Obese Edema: LLE: 1+, RLE: 1+ Neurological: Yes: Alert Labs: CBC, BMP 12/04/17 06:30 12/04/17 06:30 INR, PTT INR 4.31 (0.82-1.09) H* D 12/04/17 06:30 - ....Imaging Chest X-ray: Report Reviewed, Image Reviewed EKG: Report Reviewed Problem List - Problems (1) CKD (chronic kidney disease) Code(s): N18.9 - CHRONIC KIDNEY DISEASE, UNSPECIFIED (2) COPD (chronic obstructive pulmonary disease) Code(s): J44.9 - CHRONIC OBSTRUCTIVE PULMONARY DISEASE, UNSPECIFIED (3) Diabetes Code(s): E11.9 - TYPE 2 DIABETES MELLITUS WITHOUT COMPLICATIONS (4) GERD (gastroesophageal reflux disease) Code(s): K21.9 - GASTRO-ESOPHAGEAL REFLUX DISEASE WITHOUT ESOPHAGITIS (5) Acute exacerbation of chronic bronchitis Code(s): J20.9 - ACUTE BRONCHITIS, UNSPECIFIED; J42 - UNSPECIFIED CHRONIC BRONCHITIS (6) Acute on chronic respiratory failure with hypoxia and hypercapnia Code(s): J96.21 - ACUTE AND CHRONIC RESPIRATORY FAILURE WITH HYPOXIA; J96.22 - ACUTE AND CHRONIC RESPIRATORY FAILURE WITH HYPERCAPNIA Assessment/Plan Acute on Chronic Hypoxic and Hypercapneic Respiratory Failure improving Influenza A treated Acute COPD Exacerbation improving LV Diastolic Dysfunction h/o PE h/o CVA DM CKD Anemia - completed tamiflu - continue empiric antibiotics - prednisone taper - inhaled bronchodilators standing and PRN - continue lasix - monitor urine output, creatinine - monitor H/H - transfuse as needed - O2 to keep SpO2 >90% - BiPAP if pt allows - continue anticoagulation - can d/c to SNF from pulmonary standpoint Danny ROMERO MD
[2017-12-04] MEDS: guaiFENesin 200 MG/10 ML 10 ML UNIT-DOSE CUPS PO PRN (14:17)
[2017-12-04 14:33] LABS: ANION GAP 6 (8-16); CO2 45 mmol/L (21-32)
--- NOTE | 2017-12-04 15:05 | PN ---
Progress Note, Physician History of Present Illness: patient stable says she is feeling better - Current Medication List Current Medications: Active Medications Albuterol Sulfate (Ventolin 0.083% Nebulizer Soln -) 1 amp NEB Q4H PRN PRN Reason: SHORT OF BREATH/WHEEZING Last Admin: 12/04/17 07:52 Dose: 1 amp Budesonide/Formoterol Fumarate (Symbicort 160/4.5mcg -) 2 puff IH BID [facility] Last Admin: 12/04/17 11:16 Dose: 2 puff Ferrous Sulfate (Feosol -) 325 mg PO TIDCM [facility] Last Admin: 12/04/17 14:11 Dose: 325 mg Furosemide (Lasix Injection -) 40 mg IVPUSH BID@0600,1400 [facility] Last Admin: 12/04/17 14:10 Dose: 40 mg Guaifenesin (Robitussin -) 10 ml PO Q6H PRN PRN Reason: COUGH Last Admin: 12/04/17 14:17 Dose: 10 ml Insulin Aspart (Novolog Vial Sliding Scale -) 1 vial SQ ACHS [facility] PRN Reason: Protocol Last Admin: 12/04/17 11:25 Dose: 2 units Nifedipine (Procardia Xl -) 30 mg PO DAILY [facility] Last Admin: 12/04/17 11:15 Dose: 30 mg Pantoprazole Sodium (Protonix -) 40 mg PO DAILY [facility] Last Admin: 12/04/17 11:15 Dose: 40 mg Polyethylene Glycol (Miralax (For Daily Use) -) 17 gm PO DAILY [facility] Last Admin: 12/04/17 11:15 Dose: Not Given Potassium Chloride (K-Dur -) 40 meq PO DAILY [facility] Last Admin: 12/04/17 11:14 Dose: 40 meq Prednisone (Deltasone -) 60 mg PO DAILY [facility] Last Admin: 12/04/17 11:15 Dose: 60 mg Rosuvastatin Calcium (Crestor -) 10 mg PO HS [facility] Last Admin: 12/03/17 21:28 Dose: 10 mg Senna (Senna -) 2 tab PO HS [facility] Last Admin: 12/03/17 21:28 Dose: 2 tab Tiotropium [place] (Spiriva -) 1 puff IH DAILY [facility] Last Admin: 12/04/17 11:15 Dose: 1 inh Valsartan (Diovan -) 160 mg PO DAILY [facility] Last Admin: 12/04/17 11:14 Dose: 160 mg - Objective Vital Signs: Vital Signs Temperature 97.9 F 12/04/17 06:00 Pulse Rate 95 H 12/04/17 06:00 Respiratory Rate 14 12/04/17 06:00 Blood Pressure 131/55 12/04/17 06:00 O2 Sat by Pulse Oximetry (%) 95 12/03/17 22:00 Constitutional: Yes: No Distress, Calm Cardiovascular: Yes: S1, S2 Respiratory: Yes: On Nasal O2, Poor Air Entry, Other Gastrointestinal: Yes: Normal Bowel Sounds, Soft Musculoskeletal: Yes: WNL Extremities: Yes: WNL Neurological: Yes: Alert, Oriented Psychiatric: Yes: Alert, Oriented Labs: CBC, BMP 12/04/17 06:30 12/04/17 06:30 INR, PTT INR 4.31 (0.82-1.09) H* D 12/04/17 06:30 Assessment/Plan this patient with multiple comorbid condition and with flu and positive xray findings Problem List - Problems (1) Influenza Code(s): J11.1 - FLU DUE TO UNIDENTIFIED INFLUENZA VIRUS W OTH RESP MANIFEST (2) Acute on chronic respiratory failure with hypoxia and hypercapnia Assessment/Plan: Code(s): J96.21 - ACUTE AND CHRONIC RESPIRATORY FAILURE WITH HYPOXIA; J96.22 - ACUTE AND CHRONIC RESPIRATORY FAILURE WITH HYPERCAPNIA (3) Anemia Code(s): D64.9 - ANEMIA, UNSPECIFIED Qualifiers: Anemia type: unspecified type Qualified Code(s): D64.9 - Anemia, unspecified (4) Chronic diastolic (congestive) heart failure Code(s): I50.32 - CHRONIC DIASTOLIC (CONGESTIVE) HEART FAILURE (5) Hypertension Code(s): I10 - ESSENTIAL (PRIMARY) HYPERTENSION (6) Pulmonary embolus Code(s): I26.99 - OTHER PULMONARY EMBOLISM WITHOUT ACUTE COR PULMONALE (7) Coronary artery disease Code(s): I25.10 - ATHSCL HEART DISEASE OF [place] CORONARY ARTERY W/O ANG PCTRS (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
[2017-12-04] MEDS: SENNOSIDES 8.6MG TABLET (FP) PO SCH (21:40)
[2017-12-04] MEDS: ROSUVASTATIN CA 10 MG TABLET (FP) PO SCH (21:40)
[2017-12-04] MEDS ORDERED: PT OWN MED DRAWER 7, Y5N ONE (21:45)
--- NOTE | 2017-12-04 23:01 | PN ---
Progress Note, Physician History of Present Illness: No new change - Current Medication List Current Medications: Active Medications Albuterol Sulfate (Ventolin 0.083% Nebulizer Soln -) 1 amp NEB Q4H PRN PRN Reason: SHORT OF BREATH/WHEEZING Last Admin: 12/04/17 20:43 Dose: 1 amp Budesonide/Formoterol Fumarate (Symbicort 160/4.5mcg -) 2 puff IH BID [facility] Last Admin: 12/04/17 21:45 Dose: 2 puff Ferrous Sulfate (Feosol -) 325 mg PO TIDCM [facility] Last Admin: 12/04/17 19:30 Dose: 325 mg Furosemide (Lasix Injection -) 40 mg IVPUSH BID@0600,1400 [facility] Last Admin: 12/04/17 14:10 Dose: 40 mg Guaifenesin (Robitussin -) 10 ml PO Q6H PRN PRN Reason: COUGH Last Admin: 12/04/17 14:17 Dose: 10 ml Insulin Aspart (Novolog Vial Sliding Scale -) 1 vial SQ ACHS [facility] PRN Reason: Protocol Last Admin: 12/04/17 21:41 Dose: 8 units Nifedipine (Procardia Xl -) 30 mg PO DAILY [facility] Last Admin: 12/04/17 11:15 Dose: 30 mg Pantoprazole Sodium (Protonix -) 40 mg PO DAILY [facility] Last Admin: 12/04/17 11:15 Dose: 40 mg Polyethylene Glycol (Miralax (For Daily Use) -) 17 gm PO DAILY [facility] Last Admin: 12/04/17 11:15 Dose: Not Given Potassium Chloride (K-Dur -) 40 meq PO DAILY [facility] Last Admin: 12/04/17 11:14 Dose: 40 meq Prednisone (Deltasone -) 60 mg PO DAILY [facility] Last Admin: 12/04/17 11:15 Dose: 60 mg Rosuvastatin Calcium (Crestor -) 10 mg PO HS [facility] Last Admin: 12/04/17 21:40 Dose: 10 mg Senna (Senna -) 2 tab PO HS [facility] Last Admin: 12/04/17 21:40 Dose: 2 tab Tiotropium [place] (Spiriva -) 1 puff IH DAILY [facility] Last Admin: 12/04/17 11:15 Dose: 1 inh Valsartan (Diovan -) 160 mg PO DAILY [facility] Last Admin: 12/04/17 11:14 Dose: 160 mg - Objective Vital Signs: Vital Signs Temperature 116 F H 12/04/17 22:01 Pulse Rate 107 H 12/04/17 22:01 Respiratory Rate 22 12/04/17 22:01 Blood Pressure 116/52 12/04/17 22:01 O2 Sat by Pulse Oximetry (%) 95 12/04/17 09:00 Constitutional: Yes: Well Nourished Neck: Yes: WNL, Supple Cardiovascular: Yes: WNL, Regular Rate and Rhythm Respiratory: Yes: Diminished Gastrointestinal: Yes: WNL, Normal Bowel Sounds, Soft, Abdomen, Obese Edema: LLE: Trace, RLE: Trace Labs: CBC, BMP 12/04/17 06:30 12/04/17 06:30 INR, PTT INR 4.31 (0.82-1.09) H* D 12/04/17 06:30 Problem List - Problems (1) Acute on chronic respiratory failure with hypoxia and hypercapnia Assessment/Plan: Cont nebulizers Cont prednisone Code(s): J96.21 - ACUTE AND CHRONIC RESPIRATORY FAILURE WITH HYPOXIA; J96.22 - ACUTE AND CHRONIC RESPIRATORY FAILURE WITH HYPERCAPNIA (2) COPD (chronic obstructive pulmonary disease) Assessment/Plan: Cont symbicort/spireva Code(s): J44.9 - CHRONIC OBSTRUCTIVE PULMONARY DISEASE, UNSPECIFIED (3) History of pulmonary embolism Assessment/Plan: Hold coumadin today monitor pt/inr Code(s): Z86.711 - PERSONAL HISTORY OF PULMONARY EMBOLISM (4) Anemia Assessment/Plan: S/P transfusion 2 units PRBC's Monitor H/H Cont feosol Code(s): D64.9 - ANEMIA, UNSPECIFIED Qualifiers: Anemia type: unspecified type Qualified Code(s): D64.9 - Anemia, unspecified (5) Chronic diastolic (congestive) heart failure Assessment/Plan: Pt does not have IV access Will change to po lasix for am Monitor electrolytes Code(s): I50.32 - CHRONIC DIASTOLIC (CONGESTIVE) HEART FAILURE (6) Hypertension Code(s): I10 - ESSENTIAL (PRIMARY) HYPERTENSION (7) CKD (chronic kidney disease) Code(s): N18.9 - CHRONIC KIDNEY DISEASE, UNSPECIFIED (8) HLD (hyperlipidemia) Code(s): E78.5 - HYPERLIPIDEMIA, UNSPECIFIED (9) GERD (gastroesophageal reflux disease) Code(s): K21.9 - GASTRO-ESOPHAGEAL REFLUX DISEASE WITHOUT ESOPHAGITIS (10) Diabetes Code(s): E11.9 - TYPE 2 DIABETES MELLITUS WITHOUT COMPLICATIONS (11) Morbid obesity Code(s): E66.01 - MORBID (SEVERE) OBESITY DUE TO EXCESS CALORIES (12) Influenza Code(s): J11.1 - FLU DUE TO UNIDENTIFIED INFLUENZA VIRUS W OTH RESP MANIFEST
[2017-12-05] MEDS: ALBUTEROL SO4 0.083% IH SOL 2.5 MG/3 ML VIAL.NEB. NEB PRN ×4 (02:24→16:43)
[2017-12-05] MEDS ORDERED: FUROSEMIDE 40 MG TABLET (FP) PO SCH (06:00)
[2017-12-05] MEDS: INSULIN SLIDING SCALE (NOVOLOG) 1 VIAL SQ SCH ×4 (06:17→22:17)
[2017-12-05] MEDS: FERROUS SO4 325 MG TABLET (FP) PO SCH ×3 (08:13→17:58)
[2017-12-05] MEDS ORDERED: PT OWN MED DRAWER 7, Y5N ONE (09:01)
[2017-12-05 09:05] LABS: HEMATOCRIT 33.5 % (32.4-45.2); HEMOGLOBIN 9.6 GM/dL (10.7-15.3); MCH 23.7 pg (25.7-33.7); MCHC 28.7 g/dl (32.0-36.0); MEAN CELL VOLUME 82.4 fl (80-96); MEAN PLT VOLUME 10.2 fl (7.5-11.1); PLATELET COUNT 228 K/MM3 (134-434); RBC 4.06 M/mm3 (3.60-5.2); RDW 16.1 % (11.6-15.6); WHITE BLOOD COUNT 18.4 K/mm3 (4.0-10.0)
[2017-12-05 09:06] LABS: ALBUMIN 3.2 g/dl (3.4-5.0); BLOOD UREA NITROGEN 22 mg/dL (7-18); CHLORIDE 90 mmol/L (98-107); CREATININE 1.2 mg/dL (0.55-1.02); GLUCOSE,RANDOM 137 mg/dL (74-106); POTASSIUM 3.8 mmol/L (3.5-5.1); SGOT/AST 23 U/L (15-37); SGPT/ALT 34 U/L (12-78); SODIUM 140 mmol/L (136-145)
[2017-12-05] MEDS: POTASSIUM CHLORIDE TABS 20 MEQ TABLET.ER (FP) PO SCH (09:06)
[2017-12-05] MEDS: NIFEdipine E.R. 30 MG TABLET (FP) PO SCH (09:06)
[2017-12-05 09:07] LABS: ALK PHOS 50 U/L (45-117); BILIRUBIN,TOTAL 0.6 mg/dL (0.2-1.0); TOT PROT 5.5 g/dl (6.4-8.2)
[2017-12-05] MEDS: VALSARTAN 160 MG TABLET (UD) PO SCH (09:07)
[2017-12-05] MEDS: predniSONE 20 MG TABLET (UD) PO SCH (09:07)
[2017-12-05] MEDS: PANTOPRAZOLE 40 MG TABLET (FP) PO SCH (09:07)
[2017-12-05] MEDS: BUDESONIDE/FORMETEROL FUMARATE 160/4.5 mcg INHALER IH SCH ×2 (09:08→22:00)
[2017-12-05 09:36] LABS: ANION GAP 4 (8-16); CO2 46 mmol/L (21-32)
--- NOTE | 2017-12-05 09:37 | PN ---
Progress Note, Physician - Current Medication List Current Medications: Active Medications Albuterol Sulfate (Ventolin 0.083% Nebulizer Soln -) 1 amp NEB Q4H PRN PRN Reason: SHORT OF BREATH/WHEEZING Last Admin: 12/05/17 08:44 Dose: 1 amp Budesonide/Formoterol Fumarate (Symbicort 160/4.5mcg -) 2 puff IH BID [facility] Last Admin: 12/05/17 09:08 Dose: 2 puff Ferrous Sulfate (Feosol -) 325 mg PO TIDCM [facility] Last Admin: 12/05/17 08:13 Dose: 325 mg Furosemide (Lasix -) 40 mg PO BID@0600,1400 [facility] Last Admin: 12/05/17 06:17 Dose: 40 mg Guaifenesin (Robitussin -) 10 ml PO Q6H PRN PRN Reason: COUGH Last Admin: 12/04/17 14:17 Dose: 10 ml Insulin Aspart (Novolog Vial Sliding Scale -) 1 vial SQ ACHS [facility] PRN Reason: Protocol Last Admin: 12/05/17 06:17 Dose: Not Given Nifedipine (Procardia Xl -) 30 mg PO DAILY [facility] Last Admin: 12/05/17 09:06 Dose: 30 mg Pantoprazole Sodium (Protonix -) 40 mg PO DAILY [facility] Last Admin: 12/05/17 09:07 Dose: 40 mg Polyethylene Glycol (Miralax (For Daily Use) -) 17 gm PO DAILY [facility] Last Admin: 12/04/17 11:15 Dose: Not Given Potassium Chloride (K-Dur -) 40 meq PO DAILY [facility] Last Admin: 12/05/17 09:06 Dose: 40 meq Prednisone (Deltasone -) 60 mg PO DAILY [facility] Last Admin: 12/05/17 09:07 Dose: 60 mg Rosuvastatin Calcium (Crestor -) 10 mg PO HS [facility] Last Admin: 12/04/17 21:40 Dose: 10 mg Senna (Senna -) 2 tab PO HS [facility] Last Admin: 12/04/17 21:40 Dose: 2 tab Tiotropium [place] (Spiriva -) 1 puff IH DAILY [facility] Last Admin: 12/04/17 11:15 Dose: 1 inh Valsartan (Diovan -) 160 mg PO DAILY [facility] Last Admin: 12/05/17 09:07 Dose: 160 mg - Objective Vital Signs: Vital Signs Temperature 98.3 F 12/05/17 06:00 Pulse Rate 100 H 12/05/17 06:00 Respiratory Rate 18 12/05/17 06:00 Blood Pressure 113/55 12/05/17 06:00 O2 Sat by Pulse Oximetry (%) 94 L 12/04/17 21:00 Eyes: Yes: WNL, Conjunctiva Clear, EOM Intact HENT: Yes: WNL, Atraumatic, Normocephalic Neck: Yes: WNL, Supple, Trachea Midline Cardiovascular: Yes: WNL, Regular Rate and Rhythm Respiratory: Yes: WNL, Regular, CTA Bilaterally Gastrointestinal: Yes: WNL, Normal Bowel Sounds Genitourinary: Yes: WNL Musculoskeletal: Yes: WNL Extremities: Yes: WNL Edema: Yes Edema: LLE: Trace, RLE: Trace Integumentary: Yes: WNL Neurological: Yes: WNL, Alert, Oriented ...Motor Strength: WNL Psychiatric: Yes: WNL Labs: CBC, BMP 12/05/17 08:20 12/05/17 08:20 INR, PTT INR 4.31 (0.82-1.09) H* D 12/04/17 06:30 Assessment/Plan MP: Influenza + Chronic COPD, with acute exacerbation triggered by viral illness History of Pulmonary Embolism on Coumadin PAF Hypokalemia Hypomagnesemia Elevated INR REC: 1. Maintain K+ and Mg2+ 2. INR was supratherapeutic, now back within range, dose Coumadin for goal INR 2 -3 for h/o PE 3. Pulmonary following, steroids/nebs/supplimental O2 as per their reccs. Received Tamiflu 4. Now off tele 5. Cont IV Lasix at current dose for now, pt tends to develop volume overload while receiving steroids, if steroids dcd can likely transition to po Lasix
[2017-12-05 09:57] LABS: PLATELET ESTIMATE ADEQUATE; TEAR DROP CELLS 2+
[2017-12-05] MEDS: POLYETHYLENE GLYCOL 3350 119 GM BTL PO SCH (10:22)
[2017-12-05] MEDS: TIOTROPIUM BROMIDE 18 MCG/INH (DEVICE W/ 5 CAPSULES) IH SCH (10:22)
--- NOTE | 2017-12-05 13:06 | PN ---
Physical Exam: SUBJECTIVE: Patient seen and examined at the bedside. Denies pain, denies discomfort. OBJECTIVE: systolic bp 90s, will add parameters to BP meds INR pending coverage for Dr. Whitlock Period Temp Pulse Resp BP Sys/Nielsen Pulse Ox Last 24 Hr 98.3 F-116 F 99-107 18-22 113-117/52-55 94 GENERAL: The patient is awake, alert, and fully oriented, in no acute distress. anxious HEAD: Normal with no signs of trauma. EYES: PERRL, extraocular movements intact, sclera anicteric, conjunctiva clear. No ptosis. ENT: Ears normal, nares patent, oropharynx clear without exudates, moist mucous membranes. NECK: Trachea midline, full range of motion, supple. LUNGS: diminished breath sounds, scattered rhonchi, on supplemental oxygen HEART: Regular rate and rhythm, S1, S2 without murmur, rub or gallop. ABDOMEN: Soft, nontender, nondistended, normoactive bowel sounds EXTREMITIES: +1 bilateral lower ext. edema NEUROLOGICAL: Normal speech,bed bound PSYCH: Normal mood, normal affect. SKIN: Warm, dry, normal turgor, no rashes or lesions noted Laboratory Results - last 24 hr 12/04/17 12/04/17 12/05/17 06:30 21:17 05:54 WBC RBC Hgb Hct MCV MCH MCHC RDW Plt Count MPV Total Counted Neutrophils % Neutrophils % (Manual) Band Neutrophils % Lymphocytes % Lymphocytes % (Manual) Monocytes % (Manual) Platelet Estimate Microcytosis Tear Drop Cells Sodium Potassium Chloride Carbon Dioxide 45 H Anion Gap 6 L BUN Creatinine Creat Clearance w eGFR POC Glucometer 347 141 Random Glucose Calcium Total Bilirubin AST ALT Alkaline Phosphatase Total Protein Albumin 12/05/17 12/05/17 12/05/17 08:20 08:20 11:47 WBC 18.4 H RBC 4.06 Hgb 9.6 L Hct 33.5 MCV 82.4 MCH 23.7 L MCHC 28.7 L RDW 16.1 H Plt Count 228 MPV 10.2 D Total Counted 100 Neutrophils % No Result Required. Neutrophils % (Manual) 70.0 D Band Neutrophils % 1.0 Lymphocytes % No Result Required. Lymphocytes % (Manual) 25.0 D Monocytes % (Manual) 4 Platelet Estimate Adequate Microcytosis 1+ Tear Drop Cells 2+ Sodium 140 Potassium 3.8 Chloride 90 L Carbon Dioxide 46 H Anion Gap 4 L BUN 22 H Creatinine 1.2 H Creat Clearance w eGFR 44.54 POC Glucometer 199 Random Glucose 137 H Calcium 9.0 Total Bilirubin 0.6 AST 23 ALT 34 Alkaline Phosphatase 50 Total Protein 5.5 L Albumin 3.2 L Active Medications Generic Name Dose Route Start Last Admin Trade Name Freq PRN Reason Stop Dose Admin Albuterol Sulfate 1 amp 11/30/17 16:56 12/05/17 12:46 Ventolin 0.083% Nebulizer Soln - NEB 1 amp Q4H PRN Administration SHORT OF BREATH/WHEEZING Budesonide/Formoterol Fumarate 2 puff 11/27/17 12:23 12/05/17 09:08 Symbicort 160/4.5mcg - IH 2 puff BID [facility] Administration Ferrous Sulfate 325 mg 11/25/17 17:30 12/05/17 08:13 Feosol - PO 325 mg TIDCM [facility] Administration Furosemide 40 mg 12/05/17 06:00 12/05/17 06:17 Lasix - PO 40 mg BID@0600,1400 [facility] Administration Guaifenesin 10 ml 11/25/17 11:29 12/04/17 14:17 Robitussin - PO 10 ml Q6H PRN Administration COUGH Insulin Aspart 1 vial 11/29/17 22:00 12/05/17 06:17 Novolog Vial Sliding Scale - SQ Not Given ACHS [facility] Protocol Nifedipine 30 mg 11/26/17 10:00 12/05/17 09:06 Procardia Xl - PO 30 mg DAILY [facility] Administration Pantoprazole Sodium 40 mg 11/26/17 10:00 12/05/17 09:07 Protonix - PO 40 mg DAILY [facility] Administration Polyethylene Glycol 17 gm 11/26/17 10:00 12/05/17 10:22 Miralax (For Daily Use) - PO Not Given DAILY [facility] Potassium Chloride 40 meq 11/28/17 10:00 12/05/17 09:06 K-Dur - PO 40 meq DAILY [facility] Administration Prednisone 60 mg 12/03/17 10:00 12/05/17 09:07 Deltasone - PO 60 mg DAILY [facility] Administration Rosuvastatin Calcium 10 mg 11/25/17 22:00 12/04/17 21:40 Crestor - PO 10 mg HS [facility] Administration Senna 2 tab 11/25/17 22:00 12/04/17 21:40 Senna - PO 2 tab HS [facility] Administration Tiotropium [place] 1 puff 11/26/17 10:00 12/05/17 10:22 Spiriva - IH 1 inh DAILY [facility] Administration Valsartan 160 mg 11/26/17 10:00 12/05/17 09:07 Diovan - PO 160 mg DAILY [facility] Administration ASSESSMENT/PLAN: Patient is a 67 year old female with a significant past medical history of morbid obesity, hypertensin, HLD, CHF, COPD (oxygen dependent), PE, CVA with (w /residual L sided visual loss), diabetes mellitus, anemia, CKD, GERD and vertigo. Patient was sent from [facility] for acute respiratory distress. Pulmonary: Acute respiratory distress, improving COPD exc., improving Flu, completed Tamiflu Incentive spirometer Spiriva/Symbicort Duonebs On Prednisone taper, taper down to Prednisone 50mg on 12/06 Monitor respiratory status Hematology: Pulmonary Embolism Coumadin on hold for supratherapeutic INR Rechecking INR Goal INR bet 2-3 Anemia S/P transfusion 2 units PRBC's Monitor H/H Cont Ferrous Sulfate TID CBC in a.m. Cardiology CHF, chronic On Lasix PO Monitor electrolytes Intake and output/daily weights Hypertension, chronic Monitor Hypotensive today Parameters added to Diovan and Lasix Renal CKD,monitor HLD, on Crestor Endocrine Diabetes, Novolog SS, monitor BGMs Disposition: full code. Visit type - Emergency Visit Emergency Visit: Yes ED Registration Date: 11/23/17 Care time: The patient presented to the Emergency Department on the above date and was hospitalized for further evaluation of their emergent condition. - New Patient This patient is new to me today: Yes Date on this admission: 12/05/17 - Critical Care Critical Care patient: No - Discharge Referral Referred to [facility] Med P.C.: No
--- NOTE | 2017-12-05 13:09 | PN ---
Progress Note, Physician History of Present Illness: says she is feeling a bit weird breathing better - Current Medication List Current Medications: Active Medications Albuterol Sulfate (Ventolin 0.083% Nebulizer Soln -) 1 amp NEB Q4H PRN PRN Reason: SHORT OF BREATH/WHEEZING Last Admin: 12/05/17 12:46 Dose: 1 amp Budesonide/Formoterol Fumarate (Symbicort 160/4.5mcg -) 2 puff IH BID [facility] Last Admin: 12/05/17 09:08 Dose: 2 puff Ferrous Sulfate (Feosol -) 325 mg PO TIDCM [facility] Last Admin: 12/05/17 08:13 Dose: 325 mg Furosemide (Lasix -) 40 mg PO BID@0600,1400 [facility] Last Admin: 12/05/17 06:17 Dose: 40 mg Guaifenesin (Robitussin -) 10 ml PO Q6H PRN PRN Reason: COUGH Last Admin: 12/04/17 14:17 Dose: 10 ml Insulin Aspart (Novolog Vial Sliding Scale -) 1 vial SQ ACHS [facility] PRN Reason: Protocol Last Admin: 12/05/17 06:17 Dose: Not Given Nifedipine (Procardia Xl -) 30 mg PO DAILY [facility] Last Admin: 12/05/17 09:06 Dose: 30 mg Pantoprazole Sodium (Protonix -) 40 mg PO DAILY [facility] Last Admin: 12/05/17 09:07 Dose: 40 mg Polyethylene Glycol (Miralax (For Daily Use) -) 17 gm PO DAILY [facility] Last Admin: 12/05/17 10:22 Dose: Not Given Potassium Chloride (K-Dur -) 40 meq PO DAILY [facility] Last Admin: 12/05/17 09:06 Dose: 40 meq Prednisone (Deltasone -) 60 mg PO DAILY [facility] Last Admin: 12/05/17 09:07 Dose: 60 mg Rosuvastatin Calcium (Crestor -) 10 mg PO HS [facility] Last Admin: 12/04/17 21:40 Dose: 10 mg Senna (Senna -) 2 tab PO HS [facility] Last Admin: 12/04/17 21:40 Dose: 2 tab Tiotropium [place] (Spiriva -) 1 puff IH DAILY [facility] Last Admin: 12/05/17 10:22 Dose: 1 inh Valsartan (Diovan -) 160 mg PO DAILY [facility] Last Admin: 12/05/17 09:07 Dose: 160 mg - Objective Vital Signs: Vital Signs Temperature 98.3 F 12/05/17 06:00 Pulse Rate 100 H 12/05/17 06:00 Respiratory Rate 18 12/05/17 06:00 Blood Pressure 113/55 12/05/17 06:00 O2 Sat by Pulse Oximetry (%) 94 L 12/04/17 21:00 Constitutional: Yes: Calm, Mild Distress Cardiovascular: Yes: S1, S2 Respiratory: Yes: Regular, CTA Bilaterally, On Nasal O2 Gastrointestinal: Yes: Normal Bowel Sounds, Soft Musculoskeletal: Yes: WNL Extremities: Yes: WNL Neurological: Yes: Alert, Oriented Psychiatric: Yes: Alert, Oriented Labs: CBC, BMP 12/05/17 08:20 12/05/17 08:20 INR, PTT INR 4.31 (0.82-1.09) H* D 12/04/17 06:30 Assessment/Plan this patient with multiple comorbid condition and with flu and positive xray findings Problem List - Problems (1) Influenza Code(s): J11.1 - FLU DUE TO UNIDENTIFIED INFLUENZA VIRUS W OTH RESP MANIFEST (2) Acute on chronic respiratory failure with hypoxia and hypercapnia Assessment/Plan: Code(s): J96.21 - ACUTE AND CHRONIC RESPIRATORY FAILURE WITH HYPOXIA; J96.22 - ACUTE AND CHRONIC RESPIRATORY FAILURE WITH HYPERCAPNIA (3) Anemia Code(s): D64.9 - ANEMIA, UNSPECIFIED Qualifiers: Anemia type: unspecified type Qualified Code(s): D64.9 - Anemia, unspecified (4) Chronic diastolic (congestive) heart failure Code(s): I50.32 - CHRONIC DIASTOLIC (CONGESTIVE) HEART FAILURE (5) Hypertension Code(s): I10 - ESSENTIAL (PRIMARY) HYPERTENSION (6) Pulmonary embolus Code(s): I26.99 - OTHER PULMONARY EMBOLISM WITHOUT ACUTE COR PULMONALE (7) Coronary artery disease Code(s): I25.10 - ATHSCL HEART DISEASE OF [place] CORONARY ARTERY W/O ANG PCTRS (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
--- NOTE | 2017-12-05 14:48 | PN ---
Progress Note, Physician History of Present Illness: pulmonary alert,comfortable,-resp distress - Current Medication List Current Medications: Active Medications Albuterol Sulfate (Ventolin 0.083% Nebulizer Soln -) 1 amp NEB Q4H PRN PRN Reason: SHORT OF BREATH/WHEEZING Last Admin: 12/05/17 12:46 Dose: 1 amp Budesonide/Formoterol Fumarate (Symbicort 160/4.5mcg -) 2 puff IH BID ON LICENSE OF [facility] Last Admin: 12/05/17 09:08 Dose: 2 puff Ferrous Sulfate (Feosol -) 325 mg PO TIDCM ON LICENSE OF [facility] Last Admin: 12/05/17 13:18 Dose: 325 mg Furosemide (Lasix -) 40 mg PO BID@0600,1400 ON LICENSE OF [facility] Guaifenesin (Robitussin -) 10 ml PO Q6H PRN PRN Reason: COUGH Last Admin: 12/04/17 14:17 Dose: 10 ml Insulin Aspart (Novolog Vial Sliding Scale -) 1 vial SQ ACHS ON LICENSE OF [facility] PRN Reason: Protocol Last Admin: 12/05/17 13:17 Dose: 2 units Nifedipine (Procardia Xl -) 30 mg PO DAILY ON LICENSE OF [facility] Last Admin: 12/05/17 09:06 Dose: 30 mg Pantoprazole Sodium (Protonix -) 40 mg PO DAILY ON [facility] OF [facility] Last Admin: 12/05/17 09:07 Dose: 40 mg Polyethylene Glycol (Miralax (For Daily Use) -) 17 gm PO DAILY ON [facility] OF [facility] Last Admin: 12/05/17 10:22 Dose: Not Given Potassium Chloride (K-Dur -) 40 meq PO DAILY ON LICENSE OF [facility] Last Admin: 12/05/17 09:06 Dose: 40 meq Prednisone (Deltasone -) 50 mg PO DAILY ON LICENSE OF [facility] Rosuvastatin Calcium (Crestor -) 10 mg PO HS ON LICENSE OF [facility] Last Admin: 12/04/17 21:40 Dose: 10 mg Senna (Senna -) 2 tab PO HS ON [facility] OF [facility] Last Admin: 12/04/17 21:40 Dose: 2 tab Tiotropium [place] (Spiriva -) 1 puff IH DAILY ON LICENSE OF [facility] Last Admin: 12/05/17 10:22 Dose: 1 inh Valsartan (Diovan -) 160 mg PO DAILY ON LICENSE OF [facility] - Objective Vital Signs: Vital Signs Temperature 98.9 F 12/05/17 14:38 Pulse Rate 108 H 12/05/17 14:38 Respiratory Rate 18 12/05/17 14:38 Blood Pressure 92/39 12/05/17 14:38 O2 Sat by Pulse Oximetry (%) 94 L 12/04/17 21:00 Constitutional: Yes: Well Nourished, Calm Eyes: Yes: WNL HENT: Yes: WNL Neck: Yes: WNL Cardiovascular: Yes: Regular Rate and Rhythm, S1, S2 Respiratory: Yes: Wheezes (scattered wheezes) Gastrointestinal: Yes: Normal Bowel Sounds, Soft Extremities: Yes: WNL Edema: Yes Labs: CBC, BMP 12/05/17 08:20 12/05/17 08:20 INR, PTT INR 4.31 (0.82-1.09) H* D 12/04/17 06:30 Problem List - Problems (1) CKD (chronic kidney disease) Code(s): N18.9 - CHRONIC KIDNEY DISEASE, UNSPECIFIED (2) COPD (chronic obstructive pulmonary disease) Code(s): J44.9 - CHRONIC OBSTRUCTIVE PULMONARY DISEASE, UNSPECIFIED (3) Diabetes Code(s): E11.9 - TYPE 2 DIABETES MELLITUS WITHOUT COMPLICATIONS (4) GERD (gastroesophageal reflux disease) Code(s): K21.9 - GASTRO-ESOPHAGEAL REFLUX DISEASE WITHOUT ESOPHAGITIS (5) Influenza Code(s): J11.1 - FLU DUE TO UNIDENTIFIED INFLUENZA VIRUS W OTH RESP MANIFEST (6) Respiratory distress Code(s): R06.03 - ACUTE RESPIRATORY DISTRESS (7) Acute on chronic respiratory failure with hypoxia and hypercapnia Code(s): J96.21 - ACUTE AND CHRONIC RESPIRATORY FAILURE WITH HYPOXIA; J96.22 - ACUTE AND CHRONIC RESPIRATORY FAILURE WITH HYPERCAPNIA (8) Coronary artery disease Code(s): I25.10 - ATHSCL HEART DISEASE OF [place] CORONARY ARTERY W/O ANG PCTRS (9) HLD (hyperlipidemia) Code(s): E78.5 - HYPERLIPIDEMIA, UNSPECIFIED (10) History of pulmonary embolism Code(s): Z86.711 - PERSONAL HISTORY OF PULMONARY EMBOLISM (11) Hypertension Code(s): I10 - ESSENTIAL (PRIMARY) HYPERTENSION (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
[2017-12-05 15:41] LABS: INR 3.87 (0.82-1.09); PROTHROMBIN TIME (PATIENT) 43.7 SEC (9.98-11.88)
[2017-12-05] MEDS: FUROSEMIDE 40 MG TABLET (FP) PO SCH (16:29)
[2017-12-05] MEDS ORDERED: INSULIN (NOVOLOG) ASPART 100 UNITS/ML 10ML VIAL ONE ×2 (17:55→21:06)
[2017-12-05] MEDS ORDERED: ALBUTEROL SO4 0.083% IH SOL 2.5 MG/3 ML VIAL.NEB. NEB ONE (21:01)
[2017-12-05] MEDS: SENNOSIDES 8.6MG TABLET (FP) PO SCH (21:59)
[2017-12-05] MEDS: ROSUVASTATIN CA 10 MG TABLET (FP) PO SCH (21:59)
[2017-12-06] MEDS: FUROSEMIDE 40 MG TABLET (FP) PO SCH ×2 (06:07→14:21)
[2017-12-06] MEDS: INSULIN SLIDING SCALE (NOVOLOG) 1 VIAL SQ SCH ×4 (06:09→21:09)
[2017-12-06 07:41] LABS: HEMATOCRIT 32.2 % (32.4-45.2); HEMOGLOBIN 9.5 GM/dL (10.7-15.3); MCH 24.1 pg (25.7-33.7); MCHC 29.4 g/dl (32.0-36.0); MEAN CELL VOLUME 82.1 fl (80-96); PLATELET COUNT 236 K/MM3 (134-434); RBC 3.92 M/mm3 (3.60-5.2); RDW 16.5 % (11.6-15.6); WHITE BLOOD COUNT 19.2 K/mm3 (4.0-10.0)
[2017-12-06 08:04] LABS: INR 3.38 (0.82-1.09); PROTHROMBIN TIME (PATIENT) 38.2 SEC (9.98-11.88)
[2017-12-06 08:06] LABS: CHLORIDE 89 mmol/L (98-107); POTASSIUM 4.4 mmol/L (3.5-5.1); SODIUM 138 mmol/L (136-145)
[2017-12-06 08:14] LABS: ALBUMIN 3.1 g/dl (3.4-5.0); ALK PHOS 52 U/L (45-117); ANION GAP 5 (8-16); BILIRUBIN,TOTAL 0.7 mg/dL (0.2-1.0); BLOOD UREA NITROGEN 19 mg/dL (7-18); CALCIUM 8.7 mg/dL (8.5-10.1); CO2 44 mmol/L (21-32); CREATININE 1.3 mg/dL (0.55-1.02); GLUCOSE,RANDOM 128 mg/dL (74-106); SGOT/AST 20 U/L (15-37); SGPT/ALT 33 U/L (12-78); TOT PROT 5.6 g/dl (6.4-8.2)
[2017-12-06] MEDS: FERROUS SO4 325 MG TABLET (FP) PO SCH ×3 (08:32→18:43)
[2017-12-06 08:51] LABS: TEAR DROP CELLS 3+
[2017-12-06 08:52] LABS: PLATELET ESTIMATE ADEQUATE
[2017-12-06] MEDS: ALBUTEROL SO4 2.5/IPRATROPIUM 0.5 INH SOL 3 ML VIAL.NEB. NEB PRN ×2 (08:58→14:47)
--- NOTE | 2017-12-06 09:22 | PN ---
Progress Note, Physician - Current Medication List Current Medications: Active Medications Albuterol/Ipratropium (Duoneb -) 1 amp NEB Q6H PRN PRN Reason: SHORTNESS OF BREATH Last Admin: 12/06/17 08:58 Dose: 1 amp Budesonide/Formoterol Fumarate (Symbicort 160/4.5mcg -) 2 puff IH BID [facility] Last Admin: 12/05/17 22:00 Dose: 2 puff Ferrous Sulfate (Feosol -) 325 mg PO TIDCM [facility] Last Admin: 12/06/17 08:32 Dose: 325 mg Furosemide (Lasix -) 40 mg PO BID@0600,1400 [facility] Last Admin: 12/06/17 06:07 Dose: 40 mg Guaifenesin (Robitussin -) 10 ml PO Q6H PRN PRN Reason: COUGH Last Admin: 12/04/17 14:17 Dose: 10 ml Insulin Aspart (Novolog Vial Sliding Scale -) 1 vial SQ ACHS [facility] PRN Reason: Protocol Last Admin: 12/06/17 06:09 Dose: 2 units Nifedipine (Procardia Xl -) 30 mg PO DAILY [facility] Last Admin: 12/05/17 09:06 Dose: 30 mg Pantoprazole Sodium (Protonix -) 40 mg PO DAILY [facility] Last Admin: 12/05/17 09:07 Dose: 40 mg Polyethylene Glycol (Miralax (For Daily Use) -) 17 gm PO DAILY [facility] Last Admin: 12/05/17 10:22 Dose: Not Given Potassium Chloride (K-Dur -) 40 meq PO DAILY [facility] Last Admin: 12/05/17 09:06 Dose: 40 meq Prednisone (Deltasone -) 50 mg PO DAILY [facility] Rosuvastatin Calcium (Crestor -) 10 mg PO HS [facility] Last Admin: 12/05/17 21:59 Dose: 10 mg Senna (Senna -) 2 tab PO HS [facility] Last Admin: 12/05/17 21:59 Dose: 2 tab Tiotropium [place] (Spiriva -) 1 puff IH DAILY [facility] Last Admin: 12/05/17 10:22 Dose: 1 inh Valsartan (Diovan -) 160 mg PO DAILY [facility] - Objective Vital Signs: Vital Signs Temperature 98.1 F 12/06/17 06:00 Pulse Rate 83 12/06/17 06:00 Respiratory Rate 18 12/06/17 06:00 Blood Pressure 107/55 12/06/17 06:00 O2 Sat by Pulse Oximetry (%) 95 12/05/17 21:00 Eyes: Yes: WNL, Conjunctiva Clear, EOM Intact HENT: Yes: WNL, Atraumatic, Normocephalic Neck: Yes: WNL, Supple, Trachea Midline Cardiovascular: Yes: WNL, Regular Rate and Rhythm Respiratory: Yes: WNL, Regular, CTA Bilaterally Gastrointestinal: Yes: WNL, Normal Bowel Sounds Genitourinary: Yes: WNL Musculoskeletal: Yes: WNL Extremities: Yes: WNL Edema: No Integumentary: Yes: WNL Neurological: Yes: WNL, Alert, Oriented ...Motor Strength: WNL Psychiatric: Yes: WNL Labs: CBC, BMP 12/06/17 07:00 12/06/17 07:00 INR, PTT INR 3.38 (0.82-1.09) H 12/06/17 07:00 Assessment/Plan MP: Influenza + Chronic COPD, with acute exacerbation triggered by viral illness History of Pulmonary Embolism on Coumadin PAF Hypokalemia Hypomagnesemia Elevated INR REC: 1. Maintain K+ and Mg2+ 2. INR was supratherapeutic, now back within range, dose Coumadin for goal INR 2 -3 for h/o PE 3. Pulmonary following, steroids/nebs/supplimental O2 as per their reccs. Received Tamiflu 4. Now off tele 5. Cont IV Lasix at current dose for now, pt tends to develop volume overload while receiving steroids, if steroids dcd can likely transition to po Lasix
[2017-12-06] MEDS ORDERED: PT OWN MED DRAWER 7, Y5N ONE ×2 (11:11→16:55)
[2017-12-06] MEDS: POTASSIUM CHLORIDE TABS 20 MEQ TABLET.ER (FP) PO SCH (11:15)
[2017-12-06] MEDS: PANTOPRAZOLE 40 MG TABLET (FP) PO SCH (11:16)
[2017-12-06] MEDS: NIFEdipine E.R. 30 MG TABLET (FP) PO SCH ×2 (11:16→18:42)
[2017-12-06] MEDS: VALSARTAN 160 MG TABLET (UD) PO SCH (11:17)
[2017-12-06] MEDS: BUDESONIDE/FORMETEROL FUMARATE 160/4.5 mcg INHALER IH SCH ×2 (11:17→21:10)
[2017-12-06] MEDS: predniSONE 20 MG TABLET (UD) PO SCH (11:17)
--- NOTE | 2017-12-06 11:23 | PN ---
Progress Note, Physician History of Present Illness: stable still little oozy bp fluctuating otherwise breathing better wbc progressively increasing - Current Medication List Current Medications: Active Medications Albuterol/Ipratropium (Duoneb -) 1 amp NEB Q6H PRN PRN Reason: SHORTNESS OF BREATH Last Admin: 12/06/17 08:58 Dose: 1 amp Budesonide/Formoterol Fumarate (Symbicort 160/4.5mcg -) 2 puff IH BID [facility] Last Admin: 12/05/17 22:00 Dose: 2 puff Ferrous Sulfate (Feosol -) 325 mg PO TIDCM [facility] Last Admin: 12/06/17 08:32 Dose: 325 mg Furosemide (Lasix -) 40 mg PO BID@0600,1400 [facility] Last Admin: 12/06/17 06:07 Dose: 40 mg Guaifenesin (Robitussin -) 10 ml PO Q6H PRN PRN Reason: COUGH Last Admin: 12/04/17 14:17 Dose: 10 ml Insulin Aspart (Novolog Vial Sliding Scale -) 1 vial SQ ACHS [facility] PRN Reason: Protocol Last Admin: 12/06/17 06:09 Dose: 2 units Nifedipine (Procardia Xl -) 30 mg PO DAILY [facility] Last Admin: 12/05/17 09:06 Dose: 30 mg Pantoprazole Sodium (Protonix -) 40 mg PO DAILY [facility] Last Admin: 12/05/17 09:07 Dose: 40 mg Polyethylene Glycol (Miralax (For Daily Use) -) 17 gm PO DAILY [facility] Last Admin: 12/05/17 10:22 Dose: Not Given Potassium Chloride (K-Dur -) 40 meq PO DAILY [facility] Last Admin: 12/05/17 09:06 Dose: 40 meq Prednisone (Deltasone -) 50 mg PO DAILY [facility] Rosuvastatin Calcium (Crestor -) 10 mg PO HS [facility] Last Admin: 12/05/17 21:59 Dose: 10 mg Senna (Senna -) 2 tab PO HS [facility] Last Admin: 12/05/17 21:59 Dose: 2 tab Tiotropium [place] (Spiriva -) 1 puff IH DAILY [facility] Last Admin: 12/05/17 10:22 Dose: 1 inh Valsartan (Diovan -) 160 mg PO DAILY [facility] - Objective Vital Signs: Vital Signs Temperature 98.1 F 02/11/18 06:00 Pulse Rate 83 12/06/17 06:00 Respiratory Rate 18 12/06/17 06:00 Blood Pressure 107/55 12/06/17 06:00 O2 Sat by Pulse Oximetry (%) 95 12/05/17 21:00 Constitutional: Yes: Calm, Mild Distress Cardiovascular: Yes: S1, S2 Respiratory: Yes: On Nasal O2, Poor Air Entry Gastrointestinal: Yes: Normal Bowel Sounds, Soft Musculoskeletal: Yes: WNL Extremities: Yes: WNL Neurological: Yes: Alert, Oriented Psychiatric: Yes: Alert, Oriented Labs: CBC, BMP 12/06/17 07:00 12/06/17 07:00 INR, PTT INR 3.38 (0.82-1.09) H 12/06/17 07:00 Assessment/Plan this patient with multiple comorbid condition and with flu and positive xray findings Problem List - Problems (1) Influenza Code(s): J11.1 - FLU DUE TO UNIDENTIFIED INFLUENZA VIRUS W OTH RESP MANIFEST (2) Acute on chronic respiratory failure with hypoxia and hypercapnia Assessment/Plan: Code(s): J96.21 - ACUTE AND CHRONIC RESPIRATORY FAILURE WITH HYPOXIA; J96.22 - ACUTE AND CHRONIC RESPIRATORY FAILURE WITH HYPERCAPNIA (3) Anemia Code(s): D64.9 - ANEMIA, UNSPECIFIED Qualifiers: Anemia type: unspecified type Qualified Code(s): D64.9 - Anemia, unspecified (4) Chronic diastolic (congestive) heart failure Code(s): I50.32 - CHRONIC DIASTOLIC (CONGESTIVE) HEART FAILURE (5) Hypertension Code(s): I10 - ESSENTIAL (PRIMARY) HYPERTENSION (6) Pulmonary embolus Code(s): I26.99 - OTHER PULMONARY EMBOLISM WITHOUT ACUTE COR PULMONALE (7) Coronary artery disease Code(s): I25.10 - ATHSCL HEART DISEASE OF [place] CORONARY ARTERY W/O ANG PCTRS (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
[2017-12-06] MEDS: POLYETHYLENE GLYCOL 3350 119 GM BTL PO SCH (11:28)
[2017-12-06] MEDS: TIOTROPIUM BROMIDE 18 MCG/INH (DEVICE W/ 5 CAPSULES) IH SCH (14:21)
--- NOTE | 2017-12-06 15:17 | PN ---
Progress Note, Physician History of Present Illness: pulmonary alert,no distress - Current Medication List Current Medications: Active Medications Albuterol/Ipratropium (Duoneb -) 1 amp NEB Q6H PRN PRN Reason: SHORTNESS OF BREATH Last Admin: 12/06/17 14:47 Dose: 1 amp Budesonide/Formoterol Fumarate (Symbicort 160/4.5mcg -) 2 puff IH BID [facility] Last Admin: 12/06/17 11:17 Dose: 2 puff Ferrous Sulfate (Feosol -) 325 mg PO TIDCM [facility] Last Admin: 12/06/17 12:00 Dose: 325 mg Furosemide (Lasix -) 40 mg PO BID@0600,1400 [facility] Last Admin: 12/06/17 14:21 Dose: 40 mg Guaifenesin (Robitussin -) 10 ml PO Q6H PRN PRN Reason: COUGH Last Admin: 12/04/17 14:17 Dose: 10 ml Insulin Aspart (Novolog Vial Sliding Scale -) 1 vial SQ ACHS [facility] PRN Reason: Protocol Last Admin: 12/06/17 11:28 Dose: Not Given Nifedipine (Procardia Xl -) 30 mg PO DAILY [facility] Pantoprazole Sodium (Protonix -) 40 mg PO DAILY [facility] Last Admin: 12/06/17 11:16 Dose: 40 mg Polyethylene Glycol (Miralax (For Daily Use) -) 17 gm PO DAILY [facility] Last Admin: 12/06/17 11:28 Dose: Not Given Potassium Chloride (K-Dur -) 40 meq PO DAILY [facility] Last Admin: 12/06/17 11:15 Dose: 40 meq Prednisone (Deltasone -) 50 mg PO DAILY [facility] Last Admin: 12/06/17 11:17 Dose: 50 mg Rosuvastatin Calcium (Crestor -) 10 mg PO HS [facility] Last Admin: 12/05/17 21:59 Dose: 10 mg Senna (Senna -) 2 tab PO HS [facility] Last Admin: 12/05/17 21:59 Dose: 2 tab Tiotropium [place] (Spiriva -) 1 puff IH DAILY [facility] Last Admin: 12/06/17 14:21 Dose: 1 inh Valsartan (Diovan -) 160 mg PO DAILY [facility] Last Admin: 12/06/17 11:17 Dose: Not Given - Objective Vital Signs: Vital Signs Temperature 98.1 F 12/06/17 15:07 Pulse Rate 98 H 12/06/17 15:07 Respiratory Rate 20 12/06/17 15:07 Blood Pressure 117/53 12/06/17 15:07 O2 Sat by Pulse Oximetry (%) 96 12/06/17 09:00 Constitutional: Yes: Calm, Obese Eyes: Yes: WNL HENT: Yes: WNL Neck: Yes: WNL Cardiovascular: Yes: Regular Rate and Rhythm, S1, S2 Respiratory: Yes: Wheezes (few scattered wheezes) Gastrointestinal: Yes: Normal Bowel Sounds, Soft Extremities: Yes: WNL Edema: No Labs: CBC, BMP 12/06/17 07:00 12/06/17 07:00 INR, PTT INR 3.38 (0.82-1.09) H 12/06/17 07:00 Problem List - Problems (1) CKD (chronic kidney disease) Code(s): N18.9 - CHRONIC KIDNEY DISEASE, UNSPECIFIED (2) COPD (chronic obstructive pulmonary disease) Code(s): J44.9 - CHRONIC OBSTRUCTIVE PULMONARY DISEASE, UNSPECIFIED (3) Diabetes Code(s): E11.9 - TYPE 2 DIABETES MELLITUS WITHOUT COMPLICATIONS (4) GERD (gastroesophageal reflux disease) Code(s): K21.9 - GASTRO-ESOPHAGEAL REFLUX DISEASE WITHOUT ESOPHAGITIS (5) Influenza Code(s): J11.1 - FLU DUE TO UNIDENTIFIED INFLUENZA VIRUS W OTH RESP MANIFEST (6) Respiratory distress Code(s): R06.03 - ACUTE RESPIRATORY DISTRESS (7) Acute on chronic respiratory failure with hypoxia and hypercapnia Code(s): J96.21 - ACUTE AND CHRONIC RESPIRATORY FAILURE WITH HYPOXIA; J96.22 - ACUTE AND CHRONIC RESPIRATORY FAILURE WITH HYPERCAPNIA (8) Coronary artery disease Code(s): I25.10 - ATHSCL HEART DISEASE OF [place] CORONARY ARTERY W/O ANG PCTRS (9) HLD (hyperlipidemia) Code(s): E78.5 - HYPERLIPIDEMIA, UNSPECIFIED (10) History of pulmonary embolism Code(s): Z86.711 - PERSONAL HISTORY OF PULMONARY EMBOLISM (11) Hypertension Code(s): I10 - ESSENTIAL (PRIMARY) HYPERTENSION (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
--- NOTE | 2017-12-06 15:33 | PN ---
Physical Exam: SUBJECTIVE: Patient seen and examined. She is concerned that her BP was low this morning. Assured her that I will monitor. OBJECTIVE: coverage for Dr. Whitlock systolic bp 90s this a.m., now improved parameters to BP meds INR therapeutic @ 3.38, hold Coumadin, INR in a.m. Vital Signs Period Temp Pulse Resp BP Sys/Nielsen Pulse Ox Last 24 Hr 98.0 F-98.7 F 83-100 18-20 93-117/47-65 95-96 GENERAL: The patient is awake, alert, and fully oriented, in no acute distress. anxious HEAD: Normal with no signs of trauma. EYES: PERRL, extraocular movements intact, sclera anicteric, conjunctiva clear. No ptosis. ENT: Ears normal, nares patent, oropharynx clear without exudates, moist mucous membranes. NECK: Trachea midline, full range of motion, supple. LUNGS: diminished breath sounds, scattered rhonchi, on supplemental oxygen HEART: Regular rate and rhythm, S1, S2 without murmur, rub or gallop. ABDOMEN: Soft, nontender, nondistended, normoactive bowel sounds EXTREMITIES: +1 bilateral lower ext. edema NEUROLOGICAL: Normal speech,bed bound PSYCH: Normal mood, normal affect. SKIN: Warm, dry, normal turgor, no rashes or lesions noted Laboratory Results - last 24 hr 12/05/17 12/05/17 12/05/17 14:40 17:52 22:15 WBC RBC Hgb Hct MCV MCH MCHC RDW Plt Count MPV Total Counted Neutrophils % Neutrophils % (Manual) Lymphocytes % Lymphocytes % (Manual) Monocytes % (Manual) Nucleated RBC % Platelet Estimate Microcytosis Tear Drop Cells PT with INR 43.70 H INR 3.87 H Sodium Potassium Chloride Carbon Dioxide Anion Gap BUN Creatinine Creat Clearance w eGFR POC Glucometer 363 282 Random Glucose Calcium Total Bilirubin AST ALT Alkaline Phosphatase Total Protein Albumin Stool Occult Blood 12/06/17 12/06/17 12/06/17 05:30 05:44 07:00 WBC RBC Hgb Hct MCV MCH MCHC RDW Plt Count MPV Total Counted Neutrophils % Neutrophils % (Manual) Lymphocytes % Lymphocytes % (Manual) Monocytes % (Manual) Nucleated RBC % Platelet Estimate Microcytosis Tear Drop Cells PT with INR 38.20 H INR 3.38 H Sodium Potassium Chloride Carbon Dioxide Anion Gap BUN Creatinine Creat Clearance w eGFR POC Glucometer 161 Random Glucose Calcium Total Bilirubin AST ALT Alkaline Phosphatase Total Protein Albumin Stool Occult Blood Negative 12/06/17 12/06/17 12/06/17 07:00 07:00 11:24 WBC 19.2 H RBC 3.92 Hgb 9.5 L Hct 32.2 L MCV 82.1 MCH 24.1 L MCHC 29.4 L RDW 16.5 H Plt Count 236 MPV 10.0 Total Counted 100 Neutrophils % No Result Required. Neutrophils % (Manual) 83.0 H Lymphocytes % No Result Required. Lymphocytes % (Manual) 12.0 D Monocytes % (Manual) 3 L Nucleated RBC % 1 H Platelet Estimate Adequate Microcytosis 1+ Tear Drop Cells 3+ PT with INR INR Sodium 138 Potassium 4.4 Chloride 89 L Carbon Dioxide 44 H Anion Gap 5 L BUN 19 H Creatinine 1.3 H Creat Clearance w eGFR 40.61 POC Glucometer 135 Random Glucose 128 H Calcium 8.7 Total Bilirubin 0.7 AST 20 ALT 33 Alkaline Phosphatase 52 Total Protein 5.6 L Albumin 3.1 L Stool Occult Blood Active Medications Generic Name Dose Route Start Last Admin Trade Name Freq PRN Reason Stop Dose Admin Albuterol/Ipratropium 1 amp 12/06/17 05:59 12/06/17 14:47 Duoneb - NEB 1 amp Q6H PRN Administration SHORTNESS OF BREATH Budesonide/Formoterol Fumarate 2 puff 11/27/17 12:23 12/06/17 11:17 Symbicort 160/4.5mcg - IH 2 puff BID [facility] Administration Ferrous Sulfate 325 mg 11/25/17 17:30 12/06/17 12:00 Feosol - PO 325 mg TIDCM [facility] Administration Furosemide 40 mg 12/05/17 13:13 12/06/17 14:21 Lasix - PO 40 mg BID@0600,1400 [facility] Administration Guaifenesin 10 ml 11/25/17 11:29 12/04/17 14:17 Robitussin - PO 10 ml Q6H PRN Administration COUGH Insulin Aspart 1 vial 11/29/17 22:00 12/06/17 11:28 Novolog Vial Sliding Scale - SQ Not Given ACHS [facility] Protocol Nifedipine 30 mg 12/06/17 14:30 Procardia Xl - PO DAILY [facility] Pantoprazole Sodium 40 mg 11/26/17 10:00 12/06/17 11:16 Protonix - PO 40 mg DAILY [facility] Administration Polyethylene Glycol 17 gm 11/26/17 10:00 12/06/17 11:28 Miralax (For Daily Use) - PO Not Given DAILY [facility] Potassium Chloride 40 meq 11/28/17 10:00 12/06/17 11:15 K-Dur - PO 40 meq DAILY [facility] Administration Prednisone 50 mg 12/05/17 14:34 12/06/17 11:17 Deltasone - PO 50 mg DAILY [facility] Administration Rosuvastatin Calcium 10 mg 11/25/17 22:00 12/05/17 21:59 Crestor - PO 10 mg HS [facility] Administration Senna 2 tab 11/25/17 22:00 12/05/17 21:59 Senna - PO 2 tab HS [facility] Administration Tiotropium [place] 1 puff 11/26/17 10:00 12/06/17 14:21 Spiriva - IH 1 inh DAILY [facility] Administration Valsartan 160 mg 12/06/17 10:00 12/06/17 11:17 Diovan - PO Not Given DAILY [facility] ASSESSMENT/PLAN: Patient is a 67 year old female with a significant past medical history of morbid obesity, hypertension, HLD, CHF, COPD (oxygen dependent), PE, 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 Patient was sent from [facility] for acute respiratory distress. Pulmonary: Acute respiratory distress, improving COPD exc., improving Flu, completed Tamiflu Incentive spirometer Spiriva/Symbicort Duonebs On Prednisone taper, taper down to Prednisone 50mg on 12/06. Monitor respiratory status Hematology: Pulmonary Embolism Coumadin on hold for supratherapeutic INR Goal INR bet 2-3, INR 3.38 today Continue to hold coumadin INR in a.m. Anemia S/P transfusion 2 units PRBC's Monitor H/H Cont Ferrous Sulfate TID CBC in a.m. Cardiology CHF, chronic On Lasix PO Monitor electrolytes Intake and output/daily weights Hypertension, chronic Monitor Hypotensive this a.m, Parameters added to cardiac meds Cardiology following Renal CKD,monitor HLD, on Crestor Endocrine Diabetes, Novolog SS, monitor BGMs Disposition: full code. Visit type - Emergency Visit Emergency Visit: Yes ED Registration Date: 11/23/17 Care time: The patient presented to the Emergency Department on the above date and was hospitalized for further evaluation of their emergent condition. - New Patient This patient is new to me today: No - Critical Care Critical Care patient: No - Discharge Referral Referred to [id number] No
[2017-12-06] MEDS: ROSUVASTATIN CA 10 MG TABLET (FP) PO SCH (21:04)
[2017-12-06] MEDS: SENNOSIDES 8.6MG TABLET (FP) PO SCH (21:04)
[2017-12-06] MEDS ORDERED: INSULIN (NOVOLOG) ASPART 100 UNITS/ML 10ML VIAL ONE (21:08)
[2017-12-07] MEDS: FUROSEMIDE 40 MG TABLET (FP) PO SCH ×2 (05:58→15:00)
[2017-12-07] MEDS: INSULIN SLIDING SCALE (NOVOLOG) 1 VIAL SQ SCH ×4 (06:28→21:46)
[2017-12-07] MEDS: ALBUTEROL SO4 2.5/IPRATROPIUM 0.5 INH SOL 3 ML VIAL.NEB. NEB PRN ×4 (07:11→21:41)
[2017-12-07 08:36] LABS: INR 2.39 (0.82-1.09)
[2017-12-07 08:46] LABS: CALCIUM 8.8 mg/dL (8.5-10.1); CHLORIDE 90 mmol/L (98-107); POTASSIUM 4.4 mmol/L (3.5-5.1); SODIUM 137 mmol/L (136-145)
[2017-12-07 08:53] LABS: ALBUMIN 3.1 g/dl (3.4-5.0); ALK PHOS 54 U/L (45-117); ANION GAP 3 (8-16); BILIRUBIN,TOTAL 0.8 mg/dL (0.2-1.0); BLOOD UREA NITROGEN 17 mg/dL (7-18); CO2 44 mmol/L (21-32); CREATININE 1.2 mg/dL (0.55-1.02); GLUCOSE,RANDOM 124 mg/dL (74-106); MAGNESIUM 1.7 mg/dL (1.8-2.4); SGOT/AST 22 U/L (15-37); SGPT/ALT 35 U/L (12-78); TOT PROT 5.7 g/dl (6.4-8.2)
[2017-12-07] MEDS ORDERED: PT OWN MED DRAWER 7, Y5N ONE ×2 (08:57→21:32)
[2017-12-07] MEDS: POLYETHYLENE GLYCOL 3350 119 GM BTL PO SCH (09:16)
[2017-12-07] MEDS: predniSONE 20 MG TABLET (UD) PO SCH (09:19)
[2017-12-07] MEDS: NIFEdipine E.R. 30 MG TABLET (FP) PO SCH (09:19)
[2017-12-07] MEDS: POTASSIUM CHLORIDE TABS 20 MEQ TABLET.ER (FP) PO SCH (09:19)
[2017-12-07] MEDS: VALSARTAN 160 MG TABLET (UD) PO SCH (09:19)
[2017-12-07] MEDS: FERROUS SO4 325 MG TABLET (FP) PO SCH ×3 (09:19→17:32)
[2017-12-07] MEDS: BUDESONIDE/FORMETEROL FUMARATE 160/4.5 mcg INHALER IH SCH ×2 (09:20→21:46)
[2017-12-07] MEDS: PANTOPRAZOLE 40 MG TABLET (FP) PO SCH (09:20)
[2017-12-07] MEDS: TIOTROPIUM BROMIDE 18 MCG/INH (DEVICE W/ 5 CAPSULES) IH SCH (09:20)
[2017-12-07 09:31] LABS: HEMATOCRIT 33.3 % (32.4-45.2); HEMOGLOBIN 9.5 GM/dL (10.7-15.3); MCH 23.6 pg (25.7-33.7); MCHC 28.5 g/dl (32.0-36.0); MEAN CELL VOLUME 82.9 fl (80-96); MEAN PLT VOLUME 9.2 fl (7.5-11.1); PLATELET COUNT 212 K/MM3 (134-434); RBC 4.02 M/mm3 (3.60-5.2); RDW 16.4 % (11.6-15.6); WHITE BLOOD COUNT 20.1 K/mm3 (4.0-10.0)
[2017-12-07 11:21] LABS: PLATELET ESTIMATE ADEQUATE
--- NOTE | 2017-12-07 11:51 | PN ---
Progress Note, Physician History of Present Illness: seen and examined today in nad. states she is feeling slightly better but concerned as her SaO2 was 88 on supp O2. still has mild cough. - Current Medication List Current Medications: Active Medications Albuterol/Ipratropium (Duoneb -) 1 amp NEB Q6H PRN PRN Reason: SHORTNESS OF BREATH Last Admin: 12/07/17 11:12 Dose: 1 amp Budesonide/Formoterol Fumarate (Symbicort 160/4.5mcg -) 2 puff IH BID [facility] Last Admin: 12/07/17 09:20 Dose: 2 puff Ferrous Sulfate (Feosol -) 325 mg PO TIDCM [facility] Last Admin: 12/07/17 09:19 Dose: 325 mg Furosemide (Lasix -) 40 mg PO BID@0600,1400 [facility] Last Admin: 12/07/17 05:58 Dose: 40 mg Guaifenesin (Robitussin -) 10 ml PO Q6H PRN PRN Reason: COUGH Last Admin: 12/04/17 14:17 Dose: 10 ml Insulin Aspart (Novolog Vial Sliding Scale -) 1 vial SQ ACHS [facility] PRN Reason: Protocol Last Admin: 12/07/17 10:59 Dose: 2 units Nifedipine (Procardia Xl -) 30 mg PO DAILY [facility] Last Admin: 12/07/17 09:19 Dose: 30 mg Pantoprazole Sodium (Protonix -) 40 mg PO DAILY [facility] Last Admin: 12/07/17 09:20 Dose: 40 mg Polyethylene Glycol (Miralax (For Daily Use) -) 17 gm PO DAILY [facility] Last Admin: 12/07/17 09:16 Dose: Not Given Potassium Chloride (K-Dur -) 40 meq PO DAILY [facility] Last Admin: 12/07/17 09:19 Dose: 40 meq Prednisone (Deltasone -) 50 mg PO DAILY [facility] Last Admin: 12/07/17 09:19 Dose: 50 mg Rosuvastatin Calcium (Crestor -) 10 mg PO HS [facility] Last Admin: 12/06/17 21:04 Dose: 10 mg Senna (Senna -) 2 tab PO HS [facility] Last Admin: 12/06/17 21:04 Dose: 2 tab Tiotropium [place] (Spiriva -) 1 puff IH DAILY [facility] Last Admin: 12/07/17 09:20 Dose: 1 inh Valsartan (Diovan -) 160 mg PO DAILY [facility] Last Admin: 12/07/17 09:19 Dose: 160 mg - Objective Vital Signs: Vital Signs Temperature 98.7 F 12/07/17 06:00 Pulse Rate 92 H 12/07/17 06:00 Respiratory Rate 18 12/07/17 06:00 Blood Pressure 148/50 12/07/17 06:00 O2 Sat by Pulse Oximetry (%) 95 12/06/17 20:08 Constitutional: Yes: No Distress, Calm Eyes: Yes: Conjunctiva Clear, EOM Intact HENT: Yes: Atraumatic, Normocephalic Neck: Yes: Supple, Trachea Midline Cardiovascular: Yes: Regular Rate and Rhythm, S1, S2. No: Bradycardia, Tachycardia, Pulse Irregular, Bruit, JVD, Gallop, Murmur, Rub, S3, S4, Varicosities Respiratory: Yes: Regular, Diminished, On Nasal O2, Wheezes. No: Rales, Rhonchi , SOB Gastrointestinal: Yes: Normal Bowel Sounds, Soft. No: Distention, Tenderness Edema: LLE: Trace, RLE: Trace Peripheral Pulses WNL: Yes Peripheral Pulses: Left Doralis Pedis: 2+, Right Dorsalis Pedis: 2+ Neurological: Yes: Alert, Oriented Psychiatric: Yes: Alert, Oriented Labs: CBC, BMP 12/07/17 07:51 12/07/17 07:51 INR, PTT INR 2.39 (0.82-1.09) H 12/07/17 07:51 - ....Imaging Chest X-ray: Report Reviewed, Image Reviewed EKG: Report Reviewed, Image Reviewed Other: Report Reviewed, Image Reviewed Assessment/Plan IMP: Influenza + Chronic COPD, with acute exacerbation triggered by viral illness History of Pulmonary Embolism on Coumadin PAF Hypokalemia Hypomagnesemia Elevated INR REC: Maintain K+ and Mg2+ INR was supratherapeutic, now back within range, dose Coumadin for goal INR 2-3 for h/o PE Pulmonary following, steroids/nebs/supplimental O2 as per their reccs. Received Tamiflu Relative hypotension yesterday thus nifedipine was held, this am SBP 140s so nifedipine was given, monitor BP closely Pt reports episodes of hypoxia to 88% on 4L supp O2, Pulm f/up Does not appear significantly volume overloaded, Cont po Lasix at current dose for now, if needed can dose IV Lasix prn
--- NOTE | 2017-12-07 12:10 | PN ---
Progress Note (short form) - Note Progress Note: Feels overall better, but gets SOB with just mild movement. Dry cough. No CP. Intake & Output 12/04/17 12/05/17 12/06/17 12/07/17 23:59 23:59 23:59 23:59 Intake Total 1350 400 950 100 Balance 1350 400 950 100 Weight 266 lb 14.4 oz 266 lb 11.2 oz 269 lb 270 lb Last Vital Signs Temp Pulse Resp BP Pulse Ox 98.7 F 92 H 18 148/50 95 12/07/17 06:00 12/07/17 06:00 12/07/17 06:00 12/07/17 06:00 12/06/17 20:08 Active Medications Albuterol/Ipratropium (Duoneb -) 1 amp NEB Q6H PRN PRN Reason: SHORTNESS OF BREATH Last Admin: 12/07/17 11:12 Dose: 1 amp Budesonide/Formoterol Fumarate (Symbicort 160/4.5mcg -) 2 puff IH BID [facility] Last Admin: 12/07/17 09:20 Dose: 2 puff Ferrous Sulfate (Feosol -) 325 mg PO TIDCM [facility] Last Admin: 12/07/17 09:19 Dose: 325 mg Furosemide (Lasix -) 40 mg PO BID@0600,1400 [facility] Last Admin: 12/07/17 05:58 Dose: 40 mg Guaifenesin (Robitussin -) 10 ml PO Q6H PRN PRN Reason: COUGH Last Admin: 12/04/17 14:17 Dose: 10 ml Insulin Aspart (Novolog Vial Sliding Scale -) 1 vial SQ ACHS [facility] PRN Reason: Protocol Last Admin: 12/07/17 10:59 Dose: 2 units Nifedipine (Procardia Xl -) 30 mg PO DAILY [facility] Last Admin: 12/07/17 09:19 Dose: 30 mg Pantoprazole Sodium (Protonix -) 40 mg PO DAILY [facility] Last Admin: 12/07/17 09:20 Dose: 40 mg Polyethylene Glycol (Miralax (For Daily Use) -) 17 gm PO DAILY [facility] Last Admin: 12/07/17 09:16 Dose: Not Given Potassium Chloride (K-Dur -) 40 meq PO DAILY [facility] Last Admin: 12/07/17 09:19 Dose: 40 meq Prednisone (Deltasone -) 50 mg PO DAILY [facility] Last Admin: 12/07/17 09:19 Dose: 50 mg Rosuvastatin Calcium (Crestor -) 10 mg PO HS [facility] Last Admin: 12/06/17 21:04 Dose: 10 mg Senna (Senna -) 2 tab PO HS [facility] Last Admin: 12/06/17 21:04 Dose: 2 tab Tiotropium [place] (Spiriva -) 1 puff IH DAILY [facility] Last Admin: 12/07/17 09:20 Dose: 1 inh Valsartan (Diovan -) 160 mg PO DAILY [facility] Last Admin: 12/07/17 09:19 Dose: 160 mg Constitutional: Yes: Mildly tachypneic at rest, Morbidly Obese Eyes: Yes: WNL HENT: Yes: WNL Neck: Yes: WNL Cardiovascular: Yes: Regular Rate and Rhythm, S1, S2 Respiratory: Yes: Few scattered rhonchi, no Wheezes appreciated Gastrointestinal: Yes: Normal Bowel Sounds, Soft Extremities: Yes: WNL Edema: No Labs: Laboratory Results - last 24 hr 12/06/17 12/06/17 12/07/17 16:51 21:03 05:56 WBC RBC Hgb Hct MCV MCH MCHC RDW Plt Count MPV Total Counted Neutrophils % Neutrophils % (Manual) Band Neutrophils % Lymphocytes % Lymphocytes % (Manual) Monocytes % (Manual) Myelocytes % (Man) Metamyelocytes Platelet Estimate PT with INR INR Sodium Potassium Chloride Carbon Dioxide Anion Gap BUN Creatinine Creat Clearance w eGFR POC Glucometer 328 308 144 Random Glucose Calcium Magnesium Total Bilirubin AST ALT Alkaline Phosphatase Total Protein Albumin 12/07/17 12/07/17 12/07/17 07:51 07:51 07:51 WBC 20.1 H RBC 4.02 Hgb 9.5 L Hct 33.3 MCV 82.9 MCH 23.6 L MCHC 28.5 L RDW 16.4 H Plt Count 212 MPV 9.2 Total Counted 100 Neutrophils % No Result Required. Neutrophils % (Manual) 79.0 Band Neutrophils % 2.0 Lymphocytes % No Result Required. Lymphocytes % (Manual) 12.0 Monocytes % (Manual) 4 Myelocytes % (Man) 1 D Metamyelocytes 1 Platelet Estimate Adequate PT with INR 27.00 H INR 2.39 H Sodium 137 Potassium 4.4 Chloride 90 L Carbon Dioxide 44 H Anion Gap 3 L BUN 17 Creatinine 1.2 H Creat Clearance w eGFR 44.54 POC Glucometer Random Glucose 124 H Calcium 8.8 Magnesium 1.7 L Total Bilirubin 0.8 AST 22 ALT 35 Alkaline Phosphatase 54 Total Protein 5.7 L Albumin 3.1 L 12/07/17 10:57 WBC RBC Hgb Hct MCV MCH MCHC RDW Plt Count MPV Total Counted Neutrophils % Neutrophils % (Manual) Band Neutrophils % Lymphocytes % Lymphocytes % (Manual) Monocytes % (Manual) Myelocytes % (Man) Metamyelocytes Platelet Estimate PT with INR INR Sodium Potassium Chloride Carbon Dioxide Anion Gap BUN Creatinine Creat Clearance w eGFR POC Glucometer 168 Random Glucose Calcium Magnesium Total Bilirubin AST ALT Alkaline Phosphatase Total Protein Albumin Problem List - Problems (1) CKD (chronic kidney disease) Code(s): N18.9 - CHRONIC KIDNEY DISEASE, UNSPECIFIED (2) COPD (chronic obstructive pulmonary disease) Code(s): J44.9 - CHRONIC OBSTRUCTIVE PULMONARY DISEASE, UNSPECIFIED (3) Diabetes Code(s): E11.9 - TYPE 2 DIABETES MELLITUS WITHOUT COMPLICATIONS (4) GERD (gastroesophageal reflux disease) Code(s): K21.9 - GASTRO-ESOPHAGEAL REFLUX DISEASE WITHOUT ESOPHAGITIS (5) Influenza Code(s): J11.1 - FLU DUE TO UNIDENTIFIED INFLUENZA VIRUS W OTH RESP MANIFEST (6) Respiratory distress Code(s): R06.03 - ACUTE RESPIRATORY DISTRESS (7) Acute on chronic respiratory failure with hypoxia and hypercapnia Code(s): J96.21 - ACUTE AND CHRONIC RESPIRATORY FAILURE WITH HYPOXIA; J96.22 - ACUTE AND CHRONIC RESPIRATORY FAILURE WITH HYPERCAPNIA (8) Coronary artery disease Code(s): I25.10 - ATHSCL HEART DISEASE OF [place] CORONARY ARTERY W/O ANG PCTRS (9) HLD (hyperlipidemia) Code(s): E78.5 - HYPERLIPIDEMIA, UNSPECIFIED (10) History of pulmonary embolism Code(s): Z86.711 - PERSONAL HISTORY OF PULMONARY EMBOLISM (11) Hypertension Code(s): I10 - ESSENTIAL (PRIMARY) HYPERTENSION (12) [facility] current use of anticoagulant Code(s): 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
--- NOTE | 2017-12-07 13:10 | PN ---
Progress Note, Physician - Current Medication List Current Medications: Active Medications Albuterol/Ipratropium (Duoneb -) 1 amp NEB Q6H PRN PRN Reason: SHORTNESS OF BREATH Last Admin: 12/07/17 11:12 Dose: 1 amp Budesonide/Formoterol Fumarate (Symbicort 160/4.5mcg -) 2 puff IH BID [facility] Last Admin: 12/07/17 09:20 Dose: 2 puff Ferrous Sulfate (Feosol -) 325 mg PO TIDCM [facility] Last Admin: 12/07/17 12:23 Dose: 325 mg Furosemide (Lasix -) 40 mg PO BID@0600,1400 [facility] Last Admin: 12/07/17 05:58 Dose: 40 mg Guaifenesin (Robitussin -) 10 ml PO Q6H PRN PRN Reason: COUGH Last Admin: 12/04/17 14:17 Dose: 10 ml Insulin Aspart (Novolog Vial Sliding Scale -) 1 vial SQ ACHS [facility] PRN Reason: Protocol Last Admin: 12/07/17 10:59 Dose: 2 units Nifedipine (Procardia Xl -) 30 mg PO DAILY [facility] Last Admin: 12/07/17 09:19 Dose: 30 mg Pantoprazole Sodium (Protonix -) 40 mg PO DAILY [facility] Last Admin: 12/07/17 09:20 Dose: 40 mg Polyethylene Glycol (Miralax (For Daily Use) -) 17 gm PO DAILY [facility] Last Admin: 12/07/17 09:16 Dose: Not Given Potassium Chloride (K-Dur -) 40 meq PO DAILY [facility] Last Admin: 12/07/17 09:19 Dose: 40 meq Prednisone (Deltasone -) 50 mg PO DAILY [facility] Last Admin: 12/07/17 09:19 Dose: 50 mg Rosuvastatin Calcium (Crestor -) 10 mg PO HS [facility] Last Admin: 12/06/17 21:04 Dose: 10 mg Senna (Senna -) 2 tab PO HS [facility] Last Admin: 12/06/17 21:04 Dose: 2 tab Tiotropium [place] (Spiriva -) 1 puff IH DAILY [facility] Last Admin: 12/07/17 09:20 Dose: 1 inh Valsartan (Diovan -) 160 mg PO DAILY [facility] Last Admin: 12/07/17 09:19 Dose: 160 mg - Objective Vital Signs: Vital Signs Temperature 98.7 F 12/07/17 06:00 Pulse Rate 92 H 12/07/17 06:00 Respiratory Rate 18 12/07/17 06:00 Blood Pressure 148/50 12/07/17 06:00 O2 Sat by Pulse Oximetry (%) 95 12/06/17 20:08 Labs: CBC, BMP 12/07/17 07:51 12/07/17 07:51 INR, PTT INR 2.39 (0.82-1.09) H 12/07/17 07:51
[2017-12-07] MEDS: WARFARIN NA 3 MG TABLET PO SCH (17:33)
[2017-12-07] MEDS: SENNOSIDES 8.6MG TABLET (FP) PO SCH (21:45)
[2017-12-07] MEDS: ROSUVASTATIN CA 10 MG TABLET (FP) PO SCH (21:46)
--- NOTE | 2017-12-07 22:46 | PN ---
Progress Note, Physician History of Present Illness: No new change - Current Medication List Current Medications: Active Medications Albuterol/Ipratropium (Duoneb -) 1 amp NEB Q6H PRN PRN Reason: SHORTNESS OF BREATH Last Admin: 12/07/17 21:41 Dose: 1 amp Budesonide/Formoterol Fumarate (Symbicort 160/4.5mcg -) 2 puff IH BID [facility] Last Admin: 12/07/17 21:46 Dose: 2 puff Ferrous Sulfate (Feosol -) 325 mg PO TIDCM [facility] Last Admin: 12/07/17 17:32 Dose: 325 mg Furosemide (Lasix -) 40 mg PO BID@0600,1400 [facility] Last Admin: 12/07/17 15:00 Dose: 40 mg Guaifenesin (Robitussin -) 10 ml PO Q6H PRN PRN Reason: COUGH Last Admin: 12/04/17 14:17 Dose: 10 ml Insulin Aspart (Novolog Vial Sliding Scale -) 1 vial SQ ACHS [facility] PRN Reason: Protocol Last Admin: 12/07/17 21:46 Dose: 4 units Nifedipine (Procardia Xl -) 30 mg PO DAILY [facility] Last Admin: 12/07/17 09:19 Dose: 30 mg Pantoprazole Sodium (Protonix -) 40 mg PO DAILY [facility] Last Admin: 12/07/17 09:20 Dose: 40 mg Polyethylene Glycol (Miralax (For Daily Use) -) 17 gm PO DAILY [facility] Last Admin: 12/07/17 09:16 Dose: Not Given Potassium Chloride (K-Dur -) 40 meq PO DAILY [facility] Last Admin: 12/07/17 09:19 Dose: 40 meq Prednisone (Deltasone -) 50 mg PO DAILY [facility] Last Admin: 12/07/17 09:19 Dose: 50 mg Rosuvastatin Calcium (Crestor -) 10 mg PO HS [facility] Last Admin: 12/07/17 21:46 Dose: 10 mg Senna (Senna -) 2 tab PO HS [facility] Last Admin: 12/07/17 21:45 Dose: 2 tab Tiotropium [place] (Spiriva -) 1 puff IH DAILY [facility] Last Admin: 12/07/17 09:20 Dose: 1 inh Valsartan (Diovan -) 160 mg PO DAILY [facility] Last Admin: 12/07/17 09:19 Dose: 160 mg Warfarin Sodium (Coumadin -) 3 mg PO DAILY@1800 [facility] Last Admin: 12/07/17 17:33 Dose: 3 mg - Objective Vital Signs: Vital Signs Temperature 98.2 F 12/07/17 15:36 Pulse Rate 72 12/07/17 15:36 Respiratory Rate 20 12/07/17 15:36 Blood Pressure 110/56 12/07/17 15:36 O2 Sat by Pulse Oximetry (%) 91 L 12/07/17 08:00 Constitutional: Yes: Well Nourished HENT: Yes: WNL Neck: Yes: WNL, Supple Cardiovascular: Yes: WNL, Regular Rate and Rhythm Respiratory: Yes: WNL, Regular, CTA Bilaterally Gastrointestinal: Yes: WNL, Normal Bowel Sounds, Soft, Abdomen, Obese Labs: CBC, BMP 12/07/17 07:51 12/07/17 07:51 INR, PTT INR 2.39 (0.82-1.09) H 12/07/17 07:51 Problem List - Problems (1) Acute on chronic respiratory failure with hypoxia and hypercapnia Assessment/Plan: Cont nebulizers Cont prednisone Code(s): J96.21 - ACUTE AND CHRONIC RESPIRATORY FAILURE WITH HYPOXIA; J96.22 - ACUTE AND CHRONIC RESPIRATORY FAILURE WITH HYPERCAPNIA (2) COPD (chronic obstructive pulmonary disease) Assessment/Plan: Cont symbicort/spireva Code(s): J44.9 - CHRONIC OBSTRUCTIVE PULMONARY DISEASE, UNSPECIFIED (3) History of pulmonary embolism Assessment/Plan: Cont coumadin monitor pt/inr Code(s): Z86.711 - PERSONAL HISTORY OF PULMONARY EMBOLISM (4) Anemia Code(s): D64.9 - ANEMIA, UNSPECIFIED Qualifiers: Anemia type: unspecified type Qualified Code(s): D64.9 - Anemia, unspecified (5) Chronic diastolic (congestive) heart failure Code(s): I50.32 - CHRONIC DIASTOLIC (CONGESTIVE) HEART FAILURE (6) Hypertension Code(s): I10 - ESSENTIAL (PRIMARY) HYPERTENSION (7) CKD (chronic kidney disease) Code(s): N18.9 - CHRONIC KIDNEY DISEASE, UNSPECIFIED (8) HLD (hyperlipidemia) Code(s): E78.5 - HYPERLIPIDEMIA, UNSPECIFIED (9) GERD (gastroesophageal reflux disease) Code(s): K21.9 - GASTRO-ESOPHAGEAL REFLUX DISEASE WITHOUT ESOPHAGITIS (10) Diabetes Code(s): E11.9 - TYPE 2 DIABETES MELLITUS WITHOUT COMPLICATIONS (11) Morbid obesity Code(s): E66.01 - MORBID (SEVERE) OBESITY DUE TO EXCESS CALORIES (12) Influenza Code(s): J11.1 - FLU DUE TO UNIDENTIFIED INFLUENZA VIRUS W OTH RESP MANIFEST
[2017-12-08] MEDS: FUROSEMIDE 40 MG TABLET (FP) PO SCH ×2 (06:09→15:15)
[2017-12-08] MEDS: INSULIN SLIDING SCALE (NOVOLOG) 1 VIAL SQ SCH ×3 (06:09→17:11)
[2017-12-08 08:34] VITALS: TEMP 97.8
[2017-12-08] MEDS: ALBUTEROL SO4 2.5/IPRATROPIUM 0.5 INH SOL 3 ML VIAL.NEB. NEB PRN ×2 (08:40→14:40)
[2017-12-08] MEDS ORDERED: PT OWN MED DRAWER 7, Y5N ONE (09:07)
[2017-12-08 09:11] VITALS: BP 117/53; PULSE 100
[2017-12-08] MEDS: POTASSIUM CHLORIDE TABS 20 MEQ TABLET.ER (FP) PO SCH (09:11)
[2017-12-08] MEDS: VALSARTAN 160 MG TABLET (UD) PO SCH (09:11)
[2017-12-08] MEDS: PANTOPRAZOLE 40 MG TABLET (FP) PO SCH (09:11)
[2017-12-08] MEDS: predniSONE 20 MG TABLET (UD) PO SCH (09:12)
[2017-12-08] MEDS: TIOTROPIUM BROMIDE 18 MCG/INH (DEVICE W/ 5 CAPSULES) IH SCH (09:12)
[2017-12-08] MEDS: FERROUS SO4 325 MG TABLET (FP) PO SCH ×3 (09:12→17:11)
[2017-12-08] MEDS: NIFEdipine E.R. 30 MG TABLET (FP) PO SCH (09:12)
[2017-12-08] MEDS: BUDESONIDE/FORMETEROL FUMARATE 160/4.5 mcg INHALER IH SCH (09:17)
[2017-12-08] MEDS: POLYETHYLENE GLYCOL 3350 119 GM BTL PO SCH (09:19)
--- NOTE | 2017-12-08 13:02 | PN ---
Progress Note, Physician History of Present Illness: no issues patient still with sob - Current Medication List Current Medications: Active Medications Albuterol/Ipratropium (Duoneb -) 1 amp NEB Q6H PRN PRN Reason: SHORTNESS OF BREATH Last Admin: 12/08/17 08:40 Dose: 1 amp Budesonide/Formoterol Fumarate (Symbicort 160/4.5mcg -) 2 puff IH BID [facility] Last Admin: 12/08/17 09:17 Dose: 2 puff Ferrous Sulfate (Feosol -) 325 mg PO TIDCM [facility] Last Admin: 12/08/17 12:06 Dose: 325 mg Furosemide (Lasix -) 40 mg PO BID@0600,1400 [facility] Last Admin: 12/08/17 06:09 Dose: 40 mg Guaifenesin (Robitussin -) 10 ml PO Q6H PRN PRN Reason: COUGH Last Admin: 12/04/17 14:17 Dose: 10 ml Insulin Aspart (Novolog Vial Sliding Scale -) 1 vial SQ ACHS [facility] PRN Reason: Protocol Last Admin: 12/08/17 12:06 Dose: 2 units Nifedipine (Procardia Xl -) 30 mg PO DAILY [facility] Last Admin: 12/08/17 09:12 Dose: 30 mg Pantoprazole Sodium (Protonix -) 40 mg PO DAILY [facility] Last Admin: 12/08/17 09:11 Dose: 40 mg Polyethylene Glycol (Miralax (For Daily Use) -) 17 gm PO DAILY [facility] Last Admin: 12/08/17 09:19 Dose: Not Given Potassium Chloride (K-Dur -) 40 meq PO DAILY [facility] Last Admin: 12/08/17 09:11 Dose: 40 meq Prednisone (Deltasone -) 50 mg PO DAILY [facility] Last Admin: 12/08/17 09:12 Dose: 50 mg Rosuvastatin Calcium (Crestor -) 10 mg PO HS [facility] Last Admin: 12/07/17 21:46 Dose: 10 mg Senna (Senna -) 2 tab PO HS [facility] Last Admin: 12/07/17 21:45 Dose: 2 tab Tiotropium [place] (Spiriva -) 1 puff IH DAILY [facility] Last Admin: 12/08/17 09:12 Dose: 1 inh Valsartan (Diovan -) 160 mg PO DAILY [facility] Last Admin: 12/08/17 09:11 Dose: 160 mg Warfarin Sodium (Coumadin -) 3 mg PO DAILY@1800 [facility] Last Admin: 12/07/17 17:33 Dose: 3 mg - Objective Vital Signs: Vital Signs Temperature 97.8 F 12/08/17 08:15 Pulse Rate 100 H 12/08/17 09:10 Respiratory Rate 18 12/08/17 09:10 Blood Pressure 117/53 12/08/17 09:10 O2 Sat by Pulse Oximetry (%) 97 12/08/17 09:00 Constitutional: Yes: No Distress, Calm, Obese Cardiovascular: Yes: Regular Rate and Rhythm Respiratory: Yes: Regular, On Nasal O2, Poor Air Entry Gastrointestinal: Yes: Normal Bowel Sounds, Soft Musculoskeletal: Yes: WNL Extremities: Yes: WNL Neurological: Yes: Alert, Oriented Psychiatric: Yes: Alert, Oriented Labs: CBC, BMP 12/07/17 07:51 12/07/17 07:51 INR, PTT INR 2.39 (0.82-1.09) H 12/07/17 07:51 Assessment/Plan this patient with multiple comorbid condition and with flu and positive xray findings Problem List - Problems (1) Influenza Code(s): J11.1 - FLU DUE TO UNIDENTIFIED INFLUENZA VIRUS W OTH RESP MANIFEST (2) Acute on chronic respiratory failure with hypoxia and hypercapnia Assessment/Plan: Code(s): J96.21 - ACUTE AND CHRONIC RESPIRATORY FAILURE WITH HYPOXIA; J96.22 - ACUTE AND CHRONIC RESPIRATORY FAILURE WITH HYPERCAPNIA (3) Anemia Code(s): D64.9 - ANEMIA, UNSPECIFIED Qualifiers: Anemia type: unspecified type Qualified Code(s): D64.9 - Anemia, unspecified (4) Chronic diastolic (congestive) heart failure Code(s): I50.32 - CHRONIC DIASTOLIC (CONGESTIVE) HEART FAILURE (5) Hypertension Code(s): I10 - ESSENTIAL (PRIMARY) HYPERTENSION (6) Pulmonary embolus Code(s): I26.99 - OTHER PULMONARY EMBOLISM WITHOUT ACUTE COR PULMONALE (7) Coronary artery disease Code(s): I25.10 - ATHSCL HEART DISEASE OF [place] CORONARY ARTERY W/O ANG PCTRS (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
--- NOTE | 2017-12-08 13:50 | DS ---
Physical Examination Vital Signs: Vital Signs Temperature 97.8 F 12/08/17 08:15 Pulse Rate 100 H 12/08/17 09:10 Respiratory Rate 18 12/08/17 09:10 Blood Pressure 117/53 12/08/17 09:10 O2 Sat by Pulse Oximetry (%) 97 12/08/17 09:00 Labs: CBC, BMP 12/07/17 07:51 12/07/17 07:51 Discharge Summary Reason For Visit: ACUTE RESPIRATORY DISTRESS Current Active Problems CKD (chronic kidney disease) (Acute) COPD (chronic obstructive pulmonary disease) (Acute) Diabetes (Acute) GERD (gastroesophageal reflux disease) (Acute) Influenza (Acute) Respiratory distress (Acute) Condition: Good - Instructions Diet, Activity, Other Instructions: 2 gram sodium and 2200 calorie diabetic diet Monitor daily pt/inr and and adjust coumadin accordingly Will need to taper prednisone over the next 10 days Disposition: RETIREMENT FACILITY - Home Medications Comprehensive Discharge Medication List: Ambulatory Orders Cholecalciferol (Vitamin D3) [Vitamin D3] 2,000 unit PO DAILY #30 capsule Budesonide/Formeterol Fumarate [SYMBICORT 160/4.5mcg -] 1 inh PO BID #7 inhaler 11/26/15 Ferrous Sulfate [Feosol] 325 mg PO TID #30 ud 11/26/15 Nifedipine ER [Procardia XL -] 30 mg PO DAILY #30 tab.er.24 11/26/15 Rosuvastatin Calcium [Crestor] 10 mg PO HS #30 tablet 11/26/15 Tiotropium [place] [Spiriva] 1 inh PO DAILY #7 inh 11/26/15 Warfarin Na [Coumadin -] 2 mg PO HS 06/14/17 Albuterol 0.083% Nebulizer Claudia [Ventolin 0.083% Nebulizer Soln -] 1 amp NEB Q4H PRN amp 09/21/17 Benzocaine Ointment [Americaine Ointment -] 1 applic TX PRN PRN tube 09/21/17 Furosemide [Lasix -] 40 mg PO BID@0600,1400 tablet 09/21/17 Insulin Sliding Scale [Novolog Vial Sliding Scale -] 1 vial SQ ACHS units 09/21 Polyethylene Glycol 3350 [Miralax 119 gm Btl -] 17 gm PO DAILY bottle 09/21/17 Valsartan [Diovan] 160 mg PO DAILY tablet 09/21/17 Acetaminophen [Acetaminophen ER] 2 tab PO Q12H 11/23/17 Cyclosporine [Restasis] 1 drop OU BID 11/23/17 Guaifenesin Dm [Robitussin Dm -] 15 ml PO Q6H 11/23/17 Insulin Glargine,Hum.rec.anlog [Lantus] 2 unit SQ DAILY 11/23/17 Meclizine HCl [Antivert -] 12.5 mg PO BID PRN 11/23/17 Menthol [Bengay Ultra Strength] 1 each TP DAILY 11/23/17 Pantoprazole Sodium [Protonix] 40 mg PO DAILY 11/23/17 Prednisone 30 mg PO Q48H 11/23/17 Sennosides [Senna -] 2 tab PO HS 11/23/17 Albuterol 2.5/Ipratropium 0.5 [Duoneb -] 1 amp NEB Q6H PRN amp 12/08/17 Furosemide [Lasix -] 40 mg PO BID@0600,1400 tablet 12/08/17 Guaifenesin [Robitussin -] 10 ml PO Q6H PRN cup 12/08/17 Insulin Sliding Scale [Novolog Vial Sliding Scale -] 1 vial SQ ACHS units 12/08 Potassium Chloride [K-Dur -] 40 meq PO DAILY tablet.er 12/08/17 predniSONE [Deltasone -] 50 mg PO DAILY tablet 12/08/17
--- NOTE | 2017-12-08 14:45 | PN ---
Progress Note (short form) - Note Progress Note: Feels overall better. Some residual dry cough. No CP. Intake & Output 12/05/17 12/06/17 12/07/17 12/08/17 23:59 23:59 23:59 23:59 Intake Total 400 950 300 200 Balance 400 950 300 200 Weight 266 lb 11.2 oz 269 lb 270 lb 267 lb 7 oz Last Vital Signs Temp Pulse Resp BP Pulse Ox 97.8 F 100 H 18 117/53 97 12/08/17 08:15 12/08/17 09:10 12/08/17 09:10 12/08/17 09:10 12/08/17 09:00 Active Medications Albuterol/Ipratropium (Duoneb -) 1 amp NEB Q6H PRN PRN Reason: SHORTNESS OF BREATH Last Admin: 12/08/17 08:40 Dose: 1 amp Budesonide/Formoterol Fumarate (Symbicort 160/4.5mcg -) 2 puff IH BID [facility] Last Admin: 12/08/17 09:17 Dose: 2 puff Ferrous Sulfate (Feosol -) 325 mg PO TIDCM [facility] Last Admin: 12/08/17 12:06 Dose: 325 mg Furosemide (Lasix -) 40 mg PO BID@0600,1400 [facility] Last Admin: 12/08/17 06:09 Dose: 40 mg Guaifenesin (Robitussin -) 10 ml PO Q6H PRN PRN Reason: COUGH Last Admin: 12/04/17 14:17 Dose: 10 ml Insulin Aspart (Novolog Vial Sliding Scale -) 1 vial SQ ACHS [facility] PRN Reason: Protocol Last Admin: 12/08/17 12:06 Dose: 2 units Nifedipine (Procardia Xl -) 30 mg PO DAILY [facility] Last Admin: 12/08/17 09:12 Dose: 30 mg Pantoprazole Sodium (Protonix -) 40 mg PO DAILY [facility] Last Admin: 12/08/17 09:11 Dose: 40 mg Polyethylene Glycol (Miralax (For Daily Use) -) 17 gm PO DAILY [facility] Last Admin: 12/08/17 09:19 Dose: Not Given Potassium Chloride (K-Dur -) 40 meq PO DAILY [facility] Last Admin: 12/08/17 09:11 Dose: 40 meq Prednisone (Deltasone -) 50 mg PO DAILY [facility] Last Admin: 12/08/17 09:12 Dose: 50 mg Rosuvastatin Calcium (Crestor -) 10 mg PO [facility] Last Admin: 12/07/17 21:46 Dose: 10 mg Senna (Senna -) 2 tab PO [facility] Last Admin: 12/07/17 21:45 Dose: 2 tab Tiotropium [place] (Spiriva -) 1 puff IH DAILY [facility] Last Admin: 12/08/17 09:12 Dose: 1 inh Valsartan (Diovan -) 160 mg PO DAILY [facility] Last Admin: 12/08/17 09:11 Dose: 160 mg Warfarin Sodium (Coumadin -) 3 mg PO DAILY@1800 [facility] Last Admin: 12/07/17 17:33 Dose: 3 mg Constitutional: Yes: NAD, Morbidly Obese Eyes: Yes: WNL HENT: Yes: WNL Neck: Yes: WNL Cardiovascular: Yes: Regular Rate and Rhythm, S1, S2 Respiratory: Yes: Few scattered rhonchi, no Wheezes appreciated Gastrointestinal: Yes: Normal Bowel Sounds, Soft Extremities: Yes: WNL Edema: No Labs: Laboratory Results - last 24 hr 12/07/17 12/07/17 12/08/17 17:31 21:09 05:32 POC Glucometer 333 214 183 12/08/17 11:40 POC Glucometer 196 Problem List - Problems (1) CKD (chronic kidney disease) Code(s): N18.9 - CHRONIC KIDNEY DISEASE, UNSPECIFIED (2) COPD (chronic obstructive pulmonary disease) Code(s): J44.9 - CHRONIC OBSTRUCTIVE PULMONARY DISEASE, UNSPECIFIED (3) Diabetes Code(s): E11.9 - TYPE 2 DIABETES MELLITUS WITHOUT COMPLICATIONS (4) GERD (gastroesophageal reflux disease) Code(s): K21.9 - GASTRO-ESOPHAGEAL REFLUX DISEASE WITHOUT ESOPHAGITIS (5) Influenza Code(s): J11.1 - FLU DUE TO UNIDENTIFIED INFLUENZA VIRUS W OTH RESP MANIFEST (6) Respiratory distress Code(s): R06.03 - ACUTE RESPIRATORY DISTRESS (7) Acute on chronic respiratory failure with hypoxia and hypercapnia Code(s): J96.21 - ACUTE AND CHRONIC RESPIRATORY FAILURE WITH HYPOXIA; J96.22 - ACUTE AND CHRONIC RESPIRATORY FAILURE WITH HYPERCAPNIA (8) Coronary artery disease Code(s): I25.10 - ATHSCL HEART DISEASE OF [place] CORONARY ARTERY W/O ANG PCTRS (9) HLD (hyperlipidemia) Code(s): E78.5 - HYPERLIPIDEMIA, UNSPECIFIED (10) History of pulmonary embolism Code(s): Z86.711 - PERSONAL HISTORY OF PULMONARY EMBOLISM (11) Hypertension Code(s): I10 - ESSENTIAL (PRIMARY) HYPERTENSION (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
[2017-12-08] MEDS ORDERED: NYSTATIN 500,000 UNITS/5 ML SUSPENSION PO ONE (16:45)
[2017-12-08] MEDS: WARFARIN NA 3 MG TABLET PO SCH (17:15)
== END 2017-12-08 19:41 | DRG 291 ==
LOC: JER 08:45 → JERBED 10:24 → JICU 17:49 → J4W 11-27 15:15 → J6S 12-01 17:45
PROVIDERS: ADMIT Internal Medicine; ATTEND Internal Medicine
PROC: 30233N1 Transfusion of Nonautologous Red Blood Cells into Peripheral Vein, Percutaneous Approach (ICD-10-PCS; principal; 2017-11-24)
DX: I13.0 Hypertensive heart and chronic kidney disease with heart failure and stage 1 through stage 4 chronic kidney disease, or unspecified chronic kidney disease (principal); J96.21 Acute and chronic respiratory failure with hypoxia; I50.33 Acute on chronic diastolic (congestive) heart failure; J96.22 Acute and chronic respiratory failure with hypercapnia; J44.1 Chronic obstructive pulmonary disease with (acute) exacerbation; Z68.42 Body mass index [BMI] 45.0-49.9, adult; I69.354 Hemiplegia and hemiparesis following cerebral infarction affecting left non-dominant side; N39.0 Urinary tract infection, site not specified; J11.1 Influenza due to unidentified influenza virus with other respiratory manifestations; D64.9 Anemia, unspecified; E78.5 Hyperlipidemia, unspecified; I25.10 Atherosclerotic heart disease of native coronary artery without angina pectoris; E66.01 Morbid (severe) obesity due to excess calories; N18.9 Chronic kidney disease, unspecified; E11.22 Type 2 diabetes mellitus with diabetic chronic kidney disease; K21.9 Gastro-esophageal reflux disease without esophagitis; E87.6 Hypokalemia; E83.42 Hypomagnesemia; R79.1 Abnormal coagulation profile; I95.9 Hypotension, unspecified; B96.1 Klebsiella pneumoniae [K. pneumoniae] as the cause of diseases classified elsewhere
CPT/HCPCS: 36415; 36430; 36600; 71045-TC; 80048; 80053; 81003; 81015; 82272; 82375; 82550; 82803; 82962; 83050; 83605; 83735; 84100; 84484; 85025; 85610; 85730; 86850; 86900; 86901; 86922; 87040; 87070; 87086; 87186; 87205; 87804; 87899; 93005; 93010; 94010; 94640; 94660; 97161-GP; 99285-25; P9038; P9058

== ENCOUNTER 2018-01-08 19:43 | Inpatient (IN) | payer OTHER ==
--- NOTE | 2018-01-08 19:59 | PDOC ---
History of Present Illness - General History Source: Patient, Old Records Exam Limitations: No Limitations - History of Present Illness Initial Comments: 01/08/18 20:28 The patient is a 67 year old female with a past medical history of CHF, COPD ( on 3 L NC @ baseline) PE, CVA (w/residual L sided visual loss), IDDM who was BIBA from [facility] for revist secondary to abnormal labs and wheezing for 2 days. The patient states that she has not been feeling well lately and the physician at [facility] did blood work on the patient. Today the doctor contacted the patient to let her know that her labs were abnormal and that she should go to the emergency department to receive a blood transfusion. The patient notes that she has received a blood transfusion in that past. The patient states that the first time she received transfusion she experienced severe respiratory distress and was admitted to the ICU. She endorses wheezy at baseline but is currently experiencing increased wheezing. <Ryne Noel - Last Filed: 01/08/18 22:24> <Graciela Padron - Last Filed: 01/09/18 01:22> - General Chief Complaint: Revisit, Lab Variance Stated Complaint: LOW HEMOGLOBIN Time Seen by Provider: 01/08/18 19:59 Past History <Ryne Noel - Last Filed: 01/08/18 22:24> - Past Medical History Anemia: Yes Asthma: Yes Cancer: No Cardiac Disorders: No CVA: Yes COPD: Yes CHF: Yes Dementia: No Diabetes: No GI Disorders: No Disorders: No HTN: Yes Hypercholesterolemia: Yes Liver Disease: No Seizures: No Thyroid Disease: No - Surgical History Cardiac Surgery: No Neurologic Surgery: No Orthopedic Surgery: Yes - Immunization History Immunization Up to Date: Yes - Suicide/Smoking/Psychosocial Hx Smoking Status: No Smoking History: Unknown if ever smoked Have you smoked in the past 12 months: No Number of Cigarettes Smoked Daily: 0 If you are a former smoker, when did you quit?: 1998 Cigars Per Day: 5 'Breaking Loose' booklet given: 11/20/13 Hx Alcohol Use: No Drug/Substance Use Hx: No Substance Use Type: None Hx Substance Use Treatment: No <Graciela Padron - Last Filed: 01/09/18 01:22> - Past Medical History Allergies/Adverse Reactions: Allergies Allergy/AdvReac Type Severity Reaction Status Date / Time No Known Allergies Allergy Verified 01/08/18 19:57 Home Medications: Ambulatory Orders Acetaminophen [Tylenol] 650 mg PO BID 01/08/18 Albuterol 0.083% Nebulizer Claudia [Ventolin 0.083%] 1 neb NEB Q4H PRN 01/08/18 Albuterol 2.5/Ipratropium 0.5 [Duoneb -] 1 neb IH QID 01/08/18 Bacitracin - [Bacitracin Topical Ointment -] 1 applic TP DAILY 01/08/18 Benzocaine Ointment [Americaine] 1 applic TP PRN PRN 01/08/18 Budesonide/Formeterol Fumarate [SYMBICORT 160/4.5mcg -] 1 inh PO BID 01/08/18 Cholecalciferol (Vitamin D3) [Vitamin D3 -] 2,000 unit PO DAILY 01/08/18 Cyclosporine [Restasis] 1 each OU BID 01/08/18 Ferrous Sulfate [Feosol] 325 mg PO TID 01/08/18 Furosemide [Lasix] 20 mg PO BID 01/08/18 Guaifenesin [Robitussin] 15 ml PO TID 01/08/18 Insulin Glargine,Hum.rec.anlog [Lantus Solostar] 10 unit SQ DAILY 01/08/18 Meclizine HCl 12.5 mg PO BID PRN 01/08/18 Menthol/Zinc Oxide [Calmoseptine Ointment] 3.5 gm TP DAILY 01/08/18 Nifedipine ER [Procardia Xl -] 30 mg PO DAILY 01/08/18 Polyethylene Glycol 3350 [Glycolax] 119 gm PO DAILY 01/08/18 Prednisone 5 mg PO DAILY 01/08/18 Prednisone 10 mg PO DAILY 01/08/18 Rosuvastatin Calcium [Crestor] 10 mg PO DAILY 01/08/18 Sennosides [Natural Laxative] 2 tab PO HS 01/08/18 Tiotropium [place] [Spiriva Respimat] 2 inh IH DAILY 01/08/18 Valsartan 160 mg PO DAILY 01/08/18 Warfarin Na [Coumadin] 2 mg PO DAILY 01/08/18 Review of Systems - Review of Systems Able to Perform ROS?: Yes Comments:: 01/08/18 20:28 GENERAL/CONSTITUTIONAL: No fever or chills. No weakness. HEAD, EYES, EARS, NOSE AND THROAT: No change in vision. No ear pain or discharge. No sore throat. GASTROINTESTINAL: No nausea, vomiting, diarrhea or constipation. GENITOURINARY: No dysuria, frequency, or change in urination. CARDIOVASCULAR: No chest pain or shortness of breath. RESPIRATORY: (+) Wheezing and cough. No hemoptysis. MUSCULOSKELETAL: No joint or muscle swelling or pain. No neck or back pain. SKIN: No rash NEUROLOGIC: No headache, vertigo, loss of consciousness, or change in strength/ sensation. ENDOCRINE: No increased thirst. No abnormal weight change. HEMATOLOGIC/LYMPHATIC: No anemia, easy bleeding, or history of blood clots. ALLERGIC/IMMUNOLOGIC: No hives or skin allergy. <Ryne Noel - Last Filed: 01/08/18 22:24> *Physical Exam - Vital Signs Last Vital Signs Temp Pulse Resp BP Pulse Ox 98.9 F 116 H 18 92/54 96 01/08/18 19:57 01/08/18 19:57 01/08/18 19:57 01/08/18 19:57 01/08/18 19:57 <Ryne Noel - Last Filed: 01/08/18 22:24> - Physical Exam Comments: GENERAL: Awake, alert, and fully oriented, in no acute distress. Morbidly obese. HEAD: No signs of trauma EYES: PERRLA, EOMI, sclera anicteric, conjunctiva pale ENT: Auricles normal inspection, hearing grossly normal, nares patent, oropharynx clear without exudates. Moist mucosa NECK: Normal ROM, supple, no lymphadenopathy, JVD, or masses LUNGS: Good air entry B/L, +scattered wheezes B/L. HEART: Regular rate and rhythm, normal S1 and S2, no murmurs, rubs or gallops ABDOMEN: Soft, nontender, normoactive bowel sounds. No guarding, no rebound. No masses EXTREMITIES: Normal range of motion, 1+ pitting edema B/L. No clubbing or cyanosis. No cords, erythema, or tenderness NEUROLOGICAL: Cranial nerves II through XII grossly intact. Normal speech. Motor and sensation intact B/L. SKIN: Warm, Dry, normal turgor, no rashes or lesions noted. <Graciela Padron - Last Filed: 01/09/18 01:22> ED Treatment Course - LABORATORY CBC & Chemistry Diagram: 01/08/18 20:35 01/08/18 20:45 <Ryne Noel - Last Filed: 01/08/18 22:24> - LABORATORY CBC & Chemistry Diagram: 01/08/18 20:35 01/08/18 20:45 <Graciela Padron - Last Filed: 01/09/18 01:22> Medical Decision Making - Medical Decision Making 01/08/18 22:[address] Whitlock placed. Awaiting call back. <Ryne Noel - Last Filed: 01/08/18 22:24> - Medical Decision Making Case d/w Dr. Whitlock. Patient with prior history anemia, unclear origin. Guaiac has been negative in past. Now presents with symptomatic anemia (fatigue). Will transfuse with lasix. <Graciela Padron - Last Filed: 01/09/18 01:22> *DC/Admit/Observation/Transfer - Attestations Scribe Attestion: 01/08/18 20:28 Documentation prepared by Ryne Noel, acting as chief medical physicist for Graciela Padron MD <Ryne Noel - Last Filed: 01/08/18 22:24> - Discharge Dispostion Admit: Yes <Graciela Padron - Last Filed: 01/09/18 01:22> Diagnosis at time of Disposition: longterm current use of anticoagulant Anemia Qualifiers: Anemia type: unspecified type Qualified Code(s): D64.9 - Anemia, unspecified - Discharge Dispostion Condition at time of disposition: Stable
[2018-01-08] MEDS: ALBUTEROL SO4 2.5/IPRATROPIUM 0.5 INH SOL 3 ML VIAL.NEB. NEB SCH ×3 (20:45→21:09)
[2018-01-08 20:50] LABS: HEMATOCRIT 23.5 % (32.4-45.2); MCH 23.4 pg (25.7-33.7); MCHC 29.5 g/dl (32.0-36.0); MEAN CELL VOLUME 79.4 fl (80-96); MEAN PLT VOLUME 9.3 fl (7.5-11.1); PLATELET COUNT 346 K/MM3 (134-434); RBC 2.96 M/mm3 (3.60-5.2); RDW 17.3 % (11.6-15.6); RETICULOCYTES 2.71 % (0.5-1.5); WHITE BLOOD COUNT 11.8 K/mm3 (4.0-10.0)
[2018-01-08] MEDS ORDERED: ALBUTEROL SO4 2.5/IPRATROPIUM 0.5 INH SOL 3 ML VIAL.NEB. NEB ONE (20:52)
[2018-01-08 20:55] LABS: ADD RBC MORPHOLOGY YES; HEMOGLOBIN 6.9 GM/dL (10.7-15.3)
[2018-01-08 21:17] LABS: PROTHROMBIN TIME (PATIENT) 99.3 SEC (9.98-11.88)
[2018-01-08 21:24] LABS: INR 8.79 (0.82-1.09)
[2018-01-08 21:42] LABS: ALBUMIN 2.7 g/dl (3.4-5.0); ANION GAP 13 (8-16); BILIRUBIN,TOTAL 0.3 mg/dL (0.2-1.0); BLOOD UREA NITROGEN 19 mg/dL (7-18); CALCIUM 7.7 mg/dL (8.5-10.1); CHLORIDE 106 mmol/L (98-107); CO2 25 mmol/L (21-32); CREATININE 1.5 mg/dL (0.55-1.02); GLUCOSE,RANDOM 108 mg/dL (74-106); LDH 589 U/L (84-246); POTASSIUM 4.3 mmol/L (3.5-5.1); SGOT/AST 29 U/L (15-37); SGPT/ALT 22 U/L (12-78); SODIUM 144 mmol/L (136-145); TOT PROT 5.4 g/dl (6.4-8.2)
[2018-01-08 21:43] LABS: ALK PHOS 51 U/L (45-117)
[2018-01-08 21:57] LABS: ANISOCYTOSIS 2+; PLATELET ESTIMATE ADEQUATE; SMUDGE CELLS FEW; TEAR DROP CELLS 1+
[2018-01-08] MEDS ORDERED: FUROSEMIDE 40 MG/4 ML INJECTABLE VIAL IVPUSH ONE (22:37)
[2018-01-08] MEDS ORDERED: FUROSEMIDE 40 MG/4 ML INJECTABLE VIAL ONE (22:56)
[2018-01-09 01:12] VITALS: BMI 47.0
[2018-01-09] MEDS ORDERED: MECLIZINE HCL 12.5 MG TABLET PO PRN (03:10)
[2018-01-09] MEDS ORDERED: PHYTONADIONE 10 MG/1 ML AMP IM ONE ×2 (03:32→06:30)
[2018-01-09] MEDS: INSULIN DETEMIR 100 UNITS/ML MDV SQ SCH (06:09)
[2018-01-09] MEDS: ALBUTEROL SO4 2.5/IPRATROPIUM 0.5 INH SOL 3 ML VIAL.NEB. NEB SCH ×4 (07:29→20:35)
[2018-01-09] MEDS ORDERED: NIFEdipine E.R. 30 MG TABLET (FP) PO SCH (10:00)
[2018-01-09] MEDS ORDERED: FUROSEMIDE 20 MG TABLET (FP) PO SCH (10:00)
[2018-01-09] MEDS ORDERED: PATIENT'S OWN MEDICATION (NON-FORMULARY) (Cyclosporine [Restasis] 1 EACH) OU SCH (10:00)
[2018-01-09] MEDS ORDERED: PT OWN MED DRAWER 7, Y5N ONE ×2 (10:01→22:11)
[2018-01-09] MEDS: ROSUVASTATIN CA 10 MG TABLET (FP) PO SCH (10:03)
[2018-01-09] MEDS: FERROUS SO4 325 MG TABLET (FP) PO SCH ×3 (10:03→17:45)
[2018-01-09] MEDS: CHOLECALCIFEROL (VITAMIN D3) 1,000 UNIT TABLET (FP) PO SCH (10:04)
[2018-01-09] MEDS: BUDESONIDE/FORMETEROL FUMARATE 160/4.5 mcg INHALER IH SCH ×2 (10:05→22:12)
[2018-01-09] MEDS: TIOTROPIUM BROMIDE 18 MCG CAPSULES IH SCH (10:06)
[2018-01-09] MEDS: ACETAMINOPHEN 325 MG TABLET (FP) PO SCH ×2 (10:17→22:14)
[2018-01-09] MEDS: POLYETHYLENE GLYCOL 3350 119 GM BTL PO SCH (11:27)
[2018-01-09 11:43] LABS: BASO % 0.6 % (0-2.0); EOS % 0.3 % (0-4.5); HEMATOCRIT 28.5 % (32.4-45.2); HEMOGLOBIN 8.7 GM/dL (10.7-15.3); MCH 25.5 pg (25.7-33.7); MCHC 30.5 g/dl (32.0-36.0); MEAN CELL VOLUME 83.5 fl (80-96); MEAN PLT VOLUME 9.5 fl (7.5-11.1); MONO % 11.5 % (3.8-10.2); NEUT % 62.6 % (42.8-82.8); PLATELET COUNT 317 K/MM3 (134-434); RBC 3.41 M/mm3 (3.60-5.2); RDW 17.8 % (11.6-15.6); WHITE BLOOD COUNT 13.8 K/mm3 (4.0-10.0)
[2018-01-09 12:01] LABS: PROTHROMBIN TIME (PATIENT) 85.9 SEC (9.98-11.88)
[2018-01-09 12:08] LABS: ALBUMIN 2.7 g/dl (3.4-5.0); ALK PHOS 44 U/L (45-117); ANION GAP 9 (8-16); BILIRUBIN,TOTAL 0.4 mg/dL (0.2-1.0); BLOOD UREA NITROGEN 19 mg/dL (7-18); CALCIUM 7.6 mg/dL (8.5-10.1); CHLORIDE 105 mmol/L (98-107); CO2 31 mmol/L (21-32); CREATININE 1.5 mg/dL (0.55-1.02); GLUCOSE,RANDOM 97 mg/dL (74-106); INR 7.6 (0.82-1.09); POTASSIUM 3.8 mmol/L (3.5-5.1); SGOT/AST 24 U/L (15-37); SGPT/ALT 20 U/L (12-78); SODIUM 145 mmol/L (136-145); TOT PROT 5.4 g/dl (6.4-8.2)
--- NOTE | 2018-01-09 13:10 | CON.GI ---
Consult Consult Specialty:: anemia Referred by:: Dr Whitlock - History of Present Illness History of Present Illness: The patient is a 67 year old female with a past medical history of CHF, COPD ( on 3 L NC @ baseline) PE, CVA (w/residual L sided visual loss), IDDM who was BIBA from [facility] for revist secondary to abnormal labs and wheezing for 2 days. The patient states that she has not been feeling well lately and the physician at [facility] did blood work on the patient. Today the doctor contacted the patient to let her know that her labs were abnormal and that she should go to the emergency department to receive a blood transfusion. The patient notes that she has received a blood transfusion in that past. The patient states that the first time she received transfusion she experienced severe respiratory distress and was admitted to the ICU. She endorses wheezy at baseline but is currently experiencing increased wheezing. The patient had multipe admissions in the past.Patient is on iron and Coumadin. The patient has been anemic for more than 6 years and has undergone EGD and colonoscopy at [facility]. There no active lesions noted and the etiology of the bleeding is unknown. 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 Cardio/Vascular: Yes: CHF (chronic diastolic), HTN, Hyperlipdemia Pulmonary: Yes: COPD, O2 Dependent, Pulmonary Embolus, Other (pulmonary HTN) - Alcohol/Substance Use Hx Alcohol Use: No - Smoking History Smoking history: Unknown if ever smoked Have you smoked in the past 12 months: No Aproximately how many cigarettes per day: 0 If you are a former smoker, when did you quit?: 1998 - Social History Usual Living Arrangement: Alone History of Recent Travel: No Home Medications - Allergies Allergies/Adverse Reactions: Allergies Allergy/AdvReac Type Severity Reaction Status Date / Time No Known Allergies Allergy Verified 01/08/18 19:57 - Home Medications Home Medications: Ambulatory Orders Acetaminophen [Tylenol] 650 mg PO BID 01/08/18 Albuterol 0.083% Nebulizer Claudia [Ventolin 0.083%] 1 neb NEB Q4H PRN 01/08/18 Albuterol 2.5/Ipratropium 0.5 [Duoneb -] 1 neb IH QID 01/08/18 Bacitracin - [Bacitracin Topical Ointment -] 1 applic TP DAILY 01/08/18 Benzocaine Ointment [Americaine] 1 applic TP PRN PRN 01/08/18 Budesonide/Formeterol Fumarate [SYMBICORT 160/4.5mcg -] 1 inh PO BID 01/08/18 Cholecalciferol (Vitamin D3) [Vitamin D3 -] 2,000 unit PO DAILY 01/08/18 Cyclosporine [Restasis] 1 each OU BID 01/08/18 Ferrous Sulfate [Feosol] 325 mg PO TID 01/08/18 Furosemide [Lasix] 20 mg PO BID 01/08/18 Guaifenesin [Robitussin] 15 ml PO TID 01/08/18 Insulin Glargine,Hum.rec.anlog [Lantus Solostar] 10 unit SQ DAILY 01/08/18 Meclizine HCl 12.5 mg PO BID PRN 01/08/18 Menthol/Zinc Oxide [Calmoseptine Ointment] 3.5 gm TP DAILY 01/08/18 Nifedipine ER [Procardia Xl -] 30 mg PO DAILY 01/08/18 Polyethylene Glycol 3350 [Glycolax] 119 gm PO DAILY 01/08/18 Prednisone 5 mg PO DAILY 01/08/18 Prednisone 10 mg PO DAILY 01/08/18 Rosuvastatin Calcium [Crestor] 10 mg PO DAILY 01/08/18 Sennosides [Natural Laxative] 2 tab PO HS 01/08/18 Tiotropium [place] [Spiriva Respimat] 2 inh IH DAILY 01/08/18 Valsartan 160 mg PO DAILY 01/08/18 Warfarin Na [Coumadin] 2 mg PO DAILY 01/08/18 Physical Exam-GI Vital Signs: Vital Signs Temperature 98 F 01/09/18 10:00 Pulse Rate 104 H 01/09/18 10:00 Respiratory Rate 18 01/09/18 10:00 Blood Pressure 124/60 01/09/18 10:00 O2 Sat by Pulse Oximetry (%) 95 01/09/18 05:00 Constitutional: Yes: Well Nourished Eyes: Yes: Conjunctiva Clear HENT: Yes: Atraumatic Neck: Yes: Supple Cardiovascular: Yes: Regular Rate and Rhythm Respiratory: Yes: CTA Bilaterally ...Auscultate: Yes: Normoactive Bowel Sounds ...Palpate: Yes: Soft. No: Firm/Rigid, Guarding, Hepatomegaly, Mass, Pulsatile Mass, Splenomegaly, Tenderness Labs: CBC, BMP 01/09/18 10:42 01/09/18 10:42 INR, PTT INR 7.60 (0.82-1.09) H* 01/09/18 10:42 Ambulatory Orders Acetaminophen [Tylenol] 650 mg PO BID 01/08/18 Albuterol 0.083% Nebulizer Claudia [Ventolin 0.083%] 1 neb NEB Q4H PRN 01/08/18 Albuterol 2.5/Ipratropium 0.5 [Duoneb -] 1 neb IH QID 01/08/18 Bacitracin - [Bacitracin Topical Ointment -] 1 applic TP DAILY 01/08/18 Benzocaine Ointment [Americaine] 1 applic TP PRN PRN 01/08/18 Budesonide/Formeterol Fumarate [SYMBICORT 160/4.5mcg -] 1 inh PO BID 01/08/18 Cholecalciferol (Vitamin D3) [Vitamin D3 -] 2,000 unit PO DAILY 01/08/18 Cyclosporine [Restasis] 1 each OU BID 01/08/18 Ferrous Sulfate [Feosol] 325 mg PO TID 01/08/18 Furosemide [Lasix] 20 mg PO BID 01/08/18 Guaifenesin [Robitussin] 15 ml PO TID 01/08/18 Insulin Glargine,Hum.rec.anlog [Lantus Solostar] 10 unit SQ DAILY 01/08/18 Meclizine HCl 12.5 mg PO BID PRN 01/08/18 Menthol/Zinc Oxide [Calmoseptine Ointment] 3.5 gm TP DAILY 01/08/18 Nifedipine ER [Procardia Xl -] 30 mg PO DAILY 01/08/18 Polyethylene Glycol 3350 [Glycolax] 119 gm PO DAILY 01/08/18 Prednisone 5 mg PO DAILY 01/08/18 Prednisone 10 mg PO DAILY 01/08/18 Rosuvastatin Calcium [Crestor] 10 mg PO DAILY 01/08/18 Sennosides [Natural Laxative] 2 tab PO HS 01/08/18 Tiotropium [place] [Spiriva Respimat] 2 inh IH DAILY 01/08/18 Valsartan 160 mg PO DAILY 01/08/18 Warfarin Na [Coumadin] 2 mg PO DAILY 01/08/18 Problem List - Problems (1) Anemia Assessment/Plan: etilogy is unclear, she refused repeat EGD and colonoscopy and was made aware risk of severe bleeding and undetected occult malignancy R> sool guaiac od x 3 cologuard test or FIT test as an outpatient please recall as necessary. thank you for the consultation Code(s): D64.9 - ANEMIA, UNSPECIFIED Qualifiers: Anemia type: unspecified type Qualified Code(s): D64.9 - Anemia, unspecified
--- NOTE | 2018-01-09 14:23 | CON.CARD ---
Consult Consult Specialty:: cardiology Reason for Consultation:: shortness of breath - History of Present Illness Chief Complaint: Pt A&Ox3; anxious about having anemia and long-term consequences. History of Present Illness: The patient is a 67 year old black female with a past medical history of diastolic CHF (ECHO of 2017 was limited; valves could not be assessed), COPD ( on 3 L NC @ baseline), hyperlipidemia, PE, CVA (w/residual L sided visual loss) , IDDM, morbid obesity with ?sleep apnea, who was BIBA from [facility] for revisit secondary to abnormal labs and wheezing for 2 days. The patient states that she has not been feeling well lately and the physician at [facility] did blood work on the patient. Today the doctor contacted the patient to let her know that her labs were abnormal and that she should go to the emergency department to receive a blood transfusion. The patient notes that she has received a blood transfusion in the past. The patient states that the first time she received transfusion she experienced severe respiratory distress and was admitted to the ICU. She is currently experiencing increased wheezing. 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 Cardio/Vascular: Yes: CHF (chronic diastolic), HTN, Hyperlipdemia Pulmonary: Yes: COPD, O2 Dependent, Pulmonary Embolus, Other (pulmonary HTN) - Alcohol/Substance Use Hx Alcohol Use: No - Smoking History Smoking history: Unknown if ever smoked Have you smoked in the past 12 months: No Aproximately how many cigarettes per day: 0 If you are a former smoker, when did you quit?: 1998 - Social History Usual Living Arrangement: Alone History of Recent Travel: No Home Medications - Allergies Allergies/Adverse Reactions: Allergies Allergy/AdvReac Type Severity Reaction Status Date / Time No Known Allergies Allergy Verified 01/08/18 19:57 - Home Medications Home Medications: Ambulatory Orders Acetaminophen [Tylenol] 650 mg PO BID 01/08/18 Albuterol 0.083% Nebulizer Claudia [Ventolin 0.083%] 1 neb NEB Q4H PRN 01/08/18 Albuterol 2.5/Ipratropium 0.5 [Duoneb -] 1 neb IH QID 01/08/18 Bacitracin - [Bacitracin Topical Ointment -] 1 applic TP DAILY 01/08/18 Benzocaine Ointment [Americaine] 1 applic TP PRN PRN 01/08/18 Budesonide/Formeterol Fumarate [SYMBICORT 160/4.5mcg -] 1 inh PO BID 01/08/18 Cholecalciferol (Vitamin D3) [Vitamin D3 -] 2,000 unit PO DAILY 01/08/18 Cyclosporine [Restasis] 1 each OU BID 01/08/18 Ferrous Sulfate [Feosol] 325 mg PO TID 01/08/18 Furosemide [Lasix] 20 mg PO BID 01/08/18 Guaifenesin [Robitussin] 15 ml PO TID 01/08/18 Insulin Glargine,Hum.rec.anlog [Lantus Solostar] 10 unit SQ DAILY 01/08/18 Meclizine HCl 12.5 mg PO BID PRN 01/08/18 Menthol/Zinc Oxide [Calmoseptine Ointment] 3.5 gm TP DAILY 01/08/18 Nifedipine ER [Procardia Xl -] 30 mg PO DAILY 01/08/18 Polyethylene Glycol 3350 [Glycolax] 119 gm PO DAILY 01/08/18 Prednisone 5 mg PO DAILY 01/08/18 Prednisone 10 mg PO DAILY 01/08/18 Rosuvastatin Calcium [Crestor] 10 mg PO DAILY 01/08/18 Sennosides [Natural Laxative] 2 tab PO HS 01/08/18 Tiotropium [place] [Spiriva Respimat] 2 inh IH DAILY 01/08/18 Valsartan 160 mg PO DAILY 01/08/18 Warfarin Na [Coumadin] 2 mg PO DAILY 01/08/18 Family Disease History - Family Disease History Family History: Denies Review of Systems - Review of Systems Constitutional: reports: Weakness Eyes: reports: No Symptoms HENT: reports: No Symptoms Neck: reports: No Symptoms Cardiovascular: reports: Shortness of Breath Respiratory: reports: Snoring, SOB, Wheezing Gastrointestinal: reports: Bloating Genitourinary: reports: No Symptoms Breasts: reports: No Symptoms Reported Musculoskeletal: reports: Muscle Weakness Integumentary: reports: No Symptoms Neurological: reports: No Symptoms Endocrine: reports: No Symptoms Hematology/Lymphatic: reports: Other (anemia, with SOB) Psychiatric: reports: Anxiety - Risk Factors Known Risk Factors: Yes: Age, Hypercholesterolemia, Hypertension, Physical Inactivity, Race Vital Signs: Vital Signs Temperature 98 F 01/09/18 10:00 Pulse Rate 104 H 01/09/18 10:00 Respiratory Rate 18 01/09/18 10:00 Blood Pressure 124/60 01/09/18 10:00 O2 Sat by Pulse Oximetry (%) 95 01/09/18 09:00 Constitutional: Yes: Obese Eyes: Yes: Other (left eye "blind") HENT: Yes: WNL Neck: Yes: WNL Respiratory: Yes: Diminished, Poor Air Entry. No: Wheezes Gastrointestinal: Yes: Soft, Abdomen, Obese Renal/: No: Anuria JVD: Yes PMI: Non-Displaced Heart Sounds: Yes: S1, S2 Murmur: Yes: Systolic Murmur, Grade 2 Musculoskeletal: Yes: Muscle Weakness Extremities: Yes: Cool Edema: No Peripheral Pulses WNL: Yes Integumentary: Yes: WNL Neurological: Yes: Alert, Oriented, Weakness Psychiatric: Yes: Other (anxiety) - Other Data Labs, Other Data: CBC, BMP 01/09/18 10:42 01/09/18 10:42 INR, PTT INR 7.60 (0.82-1.09) H* 01/09/18 10:42 Abnormal Lab Results 01/08/18 01/08/18 01/10/18 14:00 20:45 06:57 WBC 13.4 H RBC 3.28 L Hgb 8.3 L Hct 27.3 L MCH 25.4 L MCHC 30.4 L RDW 17.8 H Monocytes % 12.5 H Retic Count 2.40 H D Haptoglobin 204 H PT with INR INR Creatinine Calcium TIBC 184 L Transferrin 144 L Total Protein Albumin Urine Protein Urine Blood Ur Leukocyte Esterase 01/10/18 01/10/18 01/10/18 06:57 06:57 16:30 WBC RBC Hgb Hct MCH MCHC RDW Monocytes % Retic Count Haptoglobin PT with INR 39.30 H INR 3.48 H D Creatinine 1.3 H Calcium 7.8 L TIBC Transferrin Total Protein 5.0 L Albumin 2.4 L Urine Protein 1+ H Urine Blood 1+ H Ur Leukocyte Esterase 3+ H Echo: Report Reviewed Ejection Fraction %: LVEF > or = 40 % Imaging - Results Chest X-ray: Image Reviewed (improvement in CHF) EKG: Image Reviewed (sinus tachycardia) Problem List - Problems (1) Acute on chronic diastolic (congestive) heart failure Assessment/Plan: Consider starting ACEI (HTN; DM; CHF) if renal function allows. 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 OF 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 (4) Acute exacerbation of chronic bronchitis Code(s): J20.9 - ACUTE BRONCHITIS, UNSPECIFIED; J42 - UNSPECIFIED CHRONIC BRONCHITIS (5) CKD (chronic kidney disease) Code(s): N18.9 - CHRONIC KIDNEY DISEASE, UNSPECIFIED (6) COPD (chronic obstructive pulmonary disease) Code(s): J44.9 - CHRONIC OBSTRUCTIVE PULMONARY DISEASE, UNSPECIFIED (7) Sleep apnea Code(s): G47.30 - SLEEP APNEA, UNSPECIFIED (8) Diabetes Code(s): E11.9 - TYPE 2 DIABETES MELLITUS WITHOUT COMPLICATIONS (9) Morbid obesity Code(s): E66.01 - MORBID (SEVERE) OBESITY DUE TO EXCESS CALORIES (10) Pulmonary embolus Assessment/Plan: on warfarin: supratherapeutic-->Vit K. F/u INR. Code(s): I26.99 - OTHER PULMONARY EMBOLISM WITHOUT ACUTE COR PULMONALE (11) Pulmonary hypertension Code(s): I27.2 - OTHER SECONDARY PULMONARY HYPERTENSION * DO NOT USE * (12) Stroke Code(s): I63.9 - CEREBRAL INFARCTION, UNSPECIFIED (13) HLD (hyperlipidemia) Assessment/Plan: on rosuvastatin; f/u lipid panel. Code(s): E78.5 - HYPERLIPIDEMIA, UNSPECIFIED (14) Warfarin overdosage Assessment/Plan: Pt received Vitamin K; f/u INR. Code(s): T45.511A - POISONING BY 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, ACCIDENTAL, INIT
--- NOTE | 2018-01-09 14:56 | PN ---
Progress Note (short form) - Note Progress Note: Patient known to me from previous admissions. Referred for increased SOB, with Hb below her baseline. Denies noting any GI bleeding. INR noted to be supratherapeutic. Meds reviewed. Current Medications Generic Name Dose Route Start Last Admin Trade Name Freq PRN Reason Stop Dose Admin Acetaminophen 650 mg 01/09/18 10:00 01/09/18 10:17 Tylenol - PO Not Given BID SAIMA Albuterol/Ipratropium 1 amp 01/09/18 08:00 01/09/18 11:47 Duoneb - NEB 1 amp RQID SAIMA Administration Budesonide/Formoterol Fumarate 1 puff 01/09/18 10:00 01/09/18 10:05 Symbicort 160/4.5mcg - IH 1 puff BID SAIMA Administration Cholecalciferol 2,000 unit 01/09/18 10:00 01/09/18 10:04 Vitamin D3 - PO 2,000 unit DAILY SAIMA Administration Ferrous Sulfate 325 mg 01/09/18 08:00 01/09/18 13:41 Feosol - PO 325 mg TIDCM SAIMA Administration Insulin Detemir 10 units 01/09/18 07:00 01/09/18 06:09 Levemir Vial SQ Not Given ACBK SAIMA Meclizine HCl 12.5 mg 01/09/18 03:10 Antivert - PO Q12H PRN VERTIGO Non-Formulary Medication 1 each 01/09/18 10:00 Cyclosporine [Restasis] OU BID SAIMA Polyethylene Glycol 17 gm 01/09/18 10:00 01/09/18 11:27 Miralax (For Daily Use) - PO Not Given DAILY SAIMA Rosuvastatin Calcium 10 mg 01/09/18 10:00 01/09/18 10:03 Crestor - PO 10 mg DAILY SAIMA Administration Tiotropium [place] 1 puff 01/09/18 10:00 01/09/18 10:06 Spiriva - IH 1 puff DAILY SAIMA Administration On exam: Last Vital Signs Temp Pulse Resp BP Pulse Ox 98 F 104 H 18 124/60 95 01/09/18 10:00 01/09/18 10:00 01/09/18 10:00 01/09/18 10:00 01/09/18 09:00 General: Looks well, sitting in bed, obese++ Extremities: No pallor, no icterus. Chest: breathing comfortably, clear to auscultation CVS: S1, S2, no gallop or murmur. Abdomen: Soft, no organomegaly, no masses. Neuro: Alert, oriented, non-focal. Skin: Multiple large ecchymoses. CBC, BMP 01/09/18 10:42 01/09/18 10:42 Assessment. Acute on chronic anemia, admitted with SOB.. History of thromboembolic disease with ongoing recommendation for anticoagulation - coumadin currently held due to supratherapeutic INR. Has not been iron deficient in some time (ferritin low last in february 2017) - stop oral iron - causing constipation. 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 Unclear to what extent above is accounting for her anemia, and still need to exclude acute etiologies, with high index of suspicion for GI bleed - occult stool pending. Check retic count, screen for hemolysis. Remote history of PE (?provoked), on anticoagulation for a period of time but then apparently stopped. 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 In light of current morbidity with warfarin (echymoses, possible GI hemorrhage), important to revisit prior decision for lifelong AC. CVA in of itself is not an indication for full AC - aspirin alone may be sufficient. Patient indicates that Dr. Torres (opthalmologist) initialy recommended anticoagulation, this decision warrants revisiting, especially in light of a strong possibility Possible GI bleed) that the warfarin is a cause of significant morbidity in this patient.
--- NOTE | 2018-01-09 15:21 | HP ---
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 Cardiovascular: Yes: CHF (chronic diastolic), HTN, Hyperlipdemia Pulmonary: Yes: COPD, O2 Dependent, Pulmonary Embolus, Other (pulmonary HTN) Heme/Onc: Yes: Anemia, Hypercoaguable State - Smoking History Smoking history: Unknown if ever smoked Have you smoked in the past 12 months: No Aproximately how many cigarettes per day: 0 If you are a former smoker, when did you quit?: 1998 - Alcohol/Substance Use Hx Alcohol Use: No - Social History History of Recent Travel: No Home Medications - Allergies Allergies/Adverse Reactions: Allergies Allergy/AdvReac Type Severity Reaction Status Date / Time No Known Allergies Allergy Verified 01/08/18 19:57 - Home Medications Home Medications: Ambulatory Orders Acetaminophen [Tylenol] 650 mg PO BID 01/08/18 Albuterol 0.083% Nebulizer Claudia [Ventolin 0.083%] 1 neb NEB Q4H PRN 01/08/18 Albuterol 2.5/Ipratropium 0.5 [Duoneb -] 1 neb IH QID 01/08/18 Bacitracin - [Bacitracin Topical Ointment -] 1 applic TP DAILY 01/08/18 Benzocaine Ointment [Americaine] 1 applic TP PRN PRN 01/08/18 Budesonide/Formeterol Fumarate [SYMBICORT 160/4.5mcg -] 1 inh PO BID 01/08/18 Cholecalciferol (Vitamin D3) [Vitamin D3 -] 2,000 unit PO DAILY 01/08/18 Cyclosporine [Restasis] 1 each OU BID 01/08/18 Ferrous Sulfate [Feosol] 325 mg PO TID 01/08/18 Furosemide [Lasix] 20 mg PO BID 01/08/18 Guaifenesin [Robitussin] 15 ml PO TID 01/08/18 Insulin Glargine,Hum.rec.anlog [Lantus Solostar] 10 unit SQ DAILY 01/08/18 Meclizine HCl 12.5 mg PO BID PRN 01/08/18 Menthol/Zinc Oxide [Calmoseptine Ointment] 3.5 gm TP DAILY 01/08/18 Nifedipine ER [Procardia Xl -] 30 mg PO DAILY 01/08/18 Polyethylene Glycol 3350 [Glycolax] 119 gm PO DAILY 01/08/18 Prednisone 5 mg PO DAILY 01/08/18 Prednisone 10 mg PO DAILY 01/08/18 Rosuvastatin Calcium [Crestor] 10 mg PO DAILY 01/08/18 Sennosides [Natural Laxative] 2 tab PO HS 01/08/18 Tiotropium [place] [Spiriva Respimat] 2 inh IH DAILY 01/08/18 Valsartan 160 mg PO DAILY 01/08/18 Warfarin Na [Coumadin] 2 mg PO DAILY 01/08/18 Physical Examination Vital Signs: Vital Signs Temperature 98 F 01/09/18 10:00 Pulse Rate 104 H 01/09/18 10:00 Respiratory Rate 18 01/09/18 10:00 Blood Pressure 124/60 01/09/18 10:00 O2 Sat by Pulse Oximetry (%) 95 01/09/18 09:00 Labs: CBC, BMP 01/09/18 10:42 01/09/18 10:42
[2018-01-09 15:52] LABS: CHOLESTEROL 104 mg/dL (50-200); LDL CHOLESTEROL (ONLY SJRH) 51 mg/dL (5-100); TRIGLYCERIDES 124 mg/dL (35-160)
[2018-01-09 15:58] LABS: HDL CHOLESTEROL 42 mg/dL (40-60); N-TERMINAL BNP 235.27 pg/ml (5-125)
[2018-01-09 16:45] LABS: CHOLESTEROL 95 mg/dL (50-200); HDL CHOLESTEROL 41 mg/dl (29-89); LDL CHOLESTEROL (ONLY SJRH) 48 mg/dL (5-100); TRIGLYCERIDES 130 mg/dL (35-160)
--- NOTE | 2018-01-09 18:44 | EKG ---
Test Reason : Blood Pressure : / mmHG Vent. Rate : 108 BPM Atrial Rate : 108 BPM P-R Int : 142 ms QRS Dur : 072 ms QT Int : 342 ms P-R-T Axes : 067 -31 048 degrees QTc Int : 458 ms SINUS TACHYCARDIA LEFT AXIS DEVIATION LOW VOLTAGE QRS CANNOT RULE OUT INFERIOR INFARCT , AGE UNDETERMINED CANNOT RULE OUT ANTERIOR INFARCT (CITED ON OR BEFORE 23-NOV-2017) ABNORMAL ECG WHEN COMPARED WITH ECG OF 23-NOV-2017 13:02, QRS AXIS SHIFTED LEFT MINIMAL CRITERIA FOR INFERIOR INFARCT ARE NOW PRESENT T WAVE AMPLITUDE HAS DECREASED IN LATERAL LEADS Confirmed by MELVIN ADLER MD ([id number]) on 01/09/2018 6:43:39 PM Referred By: Confirmed By:MELVIN ADLER MD
[2018-01-09] MEDS ORDERED: ACETAMINOPHEN 325 MG TABLET (FP) ONE (22:10)
[2018-01-10 06:38] LABS: SERUM IRON SATURATION 31 % (15-55); TOTAL IRON BINDING CAPACITY 184 ug/dL (250-450); UIBC 127 ug/dL (118-369)
[2018-01-10] MEDS: INSULIN DETEMIR 100 UNITS/ML MDV SQ SCH (06:42)
[2018-01-10 07:25] LABS: BASO % 0.9 % (0-2.0); EOS % 0.4 % (0-4.5); HEMATOCRIT 27.3 % (32.4-45.2); HEMOGLOBIN 8.3 GM/dL (10.7-15.3); MCH 25.4 pg (25.7-33.7); MCHC 30.4 g/dl (32.0-36.0); MEAN CELL VOLUME 83.5 fl (80-96); MEAN PLT VOLUME 9.7 fl (7.5-11.1); MONO % 12.5 % (3.8-10.2); NEUT % 66.2 % (42.8-82.8); PLATELET COUNT 292 K/MM3 (134-434); RBC 3.28 M/mm3 (3.60-5.2); RDW 17.8 % (11.6-15.6); WHITE BLOOD COUNT 13.4 K/mm3 (4.0-10.0)
[2018-01-10 07:41] LABS: INR 3.48 (0.82-1.09); PROTHROMBIN TIME (PATIENT) 39.3 SEC (9.98-11.88)
[2018-01-10] MEDS: ALBUTEROL SO4 2.5/IPRATROPIUM 0.5 INH SOL 3 ML VIAL.NEB. NEB SCH ×4 (07:48→20:08)
[2018-01-10 08:00] LABS: CHLORIDE 105 mmol/L (98-107); POTASSIUM 3.9 mmol/L (3.5-5.1); SODIUM 144 mmol/L (136-145)
[2018-01-10 08:08] LABS: TRANSFERRIN 144 mg/dL (200-370)
[2018-01-10 08:10] LABS: ALBUMIN 2.4 g/dl (3.4-5.0); ALK PHOS 46 U/L (45-117); ANION GAP 12 (8-16); BILIRUBIN,TOTAL 0.5 mg/dL (0.2-1.0); BLOOD UREA NITROGEN 16 mg/dL (7-18); CALCIUM 7.8 mg/dL (8.5-10.1); CO2 27 mmol/L (21-32); CREATININE 1.3 mg/dL (0.55-1.02); GLUCOSE,RANDOM 91 mg/dL (74-106); SGOT/AST 19 U/L (15-37); SGPT/ALT 16 U/L (12-78)
[2018-01-10] MEDS: FERROUS SO4 325 MG TABLET (FP) PO SCH ×3 (09:00→17:32)
[2018-01-10] MEDS: ROSUVASTATIN CA 10 MG TABLET (FP) PO SCH (09:01)
[2018-01-10] MEDS: ACETAMINOPHEN 325 MG TABLET (FP) PO SCH ×3 (09:01→22:02)
[2018-01-10] MEDS: CHOLECALCIFEROL (VITAMIN D3) 1,000 UNIT TABLET (FP) PO SCH (09:01)
[2018-01-10] MEDS: BUDESONIDE/FORMETEROL FUMARATE 160/4.5 mcg INHALER IH SCH ×2 (09:03→22:03)
[2018-01-10] MEDS ORDERED: PT OWN MED DRAWER 7, Y5N ONE (09:04)
[2018-01-10] MEDS: TIOTROPIUM BROMIDE 18 MCG CAPSULES IH SCH (09:05)
[2018-01-10] MEDS: POLYETHYLENE GLYCOL 3350 119 GM BTL PO SCH (09:19)
--- NOTE | 2018-01-10 13:09 | PN ---
Progress Note (short form) - Note Progress Note: Patient seen in follow up. No new complaints, but still reporting shortness of breath, and back pain (from bed). INR <3.5 this morning. Meds reviewed. Current Medications Generic Name Dose Route Start Last Admin Trade Name Freq PRN Reason Stop Dose Admin Acetaminophen 650 mg 01/09/18 10:00 01/10/18 09:01 Tylenol - PO Not Given BID SAIMA Albuterol/Ipratropium 1 amp 01/09/18 08:00 01/10/18 12:03 Duoneb - NEB 1 amp RQID SAIMA Administration Budesonide/Formoterol Fumarate 1 puff 01/09/18 10:00 01/10/18 09:03 Symbicort 160/4.5mcg - IH 1 puff BID SAIMA Administration Cholecalciferol 2,000 unit 01/09/18 10:00 01/10/18 09:01 Vitamin D3 - PO 2,000 unit DAILY SAIMA Administration Ferrous Sulfate 325 mg 01/09/18 08:00 01/10/18 12:27 Feosol - PO 325 mg TIDCM SAIMA Administration Insulin Detemir 10 units 01/09/18 07:00 01/10/18 06:42 Levemir Vial SQ Not Given ACBK SAIMA Meclizine HCl 12.5 mg 01/09/18 03:10 Antivert - PO Q12H PRN VERTIGO Non-Formulary Medication 1 each 01/09/18 10:00 Cyclosporine [Restasis] OU BID SAIMA Polyethylene Glycol 17 gm 01/09/18 10:00 01/10/18 09:19 Miralax (For Daily Use) - PO Not Given DAILY SAIMA Rosuvastatin Calcium 10 mg 01/09/18 10:00 01/10/18 09:01 Crestor - PO 10 mg DAILY SAIMA Administration Tiotropium [place] 1 puff 01/09/18 10:00 01/10/18 09:05 Spiriva - IH 1 puff DAILY SAIMA Administration On exam: Last Vital Signs Temp Pulse Resp BP Pulse Ox 98 F 100 H 20 102/48 96 01/10/18 09:00 01/10/18 09:00 01/10/18 09:00 01/10/18 09:00 01/10/18 09:00 General: Looks well, sitting in bed, obese++ Extremities: No pallor, no icterus. Neuro: Alert, oriented, non-focal. Skin: Multiple large ecchymoses. CBC, BMP 01/10/18 06:57 01/10/18 06:57 INR, PTT INR 3.48 (0.82-1.09) H D 01/10/18 06:57 Assessment. Acute on chronic anemia, admitted with SOB.. History of thromboembolic disease with ongoing recommendation for anticoagulation - coumadin currently held due to supratherapeutic INR. Has not been iron deficient in some time (ferritin low last in february 2017) - stop oral iron - causing constipation. 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 Unclear to what extent above is accounting for her anemia, and still need to exclude acute etiologies, with high index of suspicion for GI bleed - occult stool pending. Retic elevated. Hemolysis screen negative. Remote history of PE (?provoked), on anticoagulation for a period of time but then apparently stopped. 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 In light of current morbidity with warfarin (echymoses, possible GI hemorrhage), important to revisit prior decision for lifelong AC. CVA in of itself is not an indication for full AC - aspirin alone may be sufficient. Patient indicates that Dr. Torres (opthalmologist) initialy recommended anticoagulation, this decision warrants revisiting, especially in light of a strong possibility Possible GI bleed) that the warfarin is a cause of significant morbidity in this patient.
[2018-01-10 18:06] LABS: URINE APPEARANCE TURBID; URINE BILIRUBIN NEGATIVE (NEGATIVE); URINE BLOOD 1+ (NEGATIVE); URINE COLOR AMBER; URINE GLUCOSE (UA) NEGATIVE (NEGATIVE); URINE KETONE NEGATIVE (NEGATIVE); URINE NITRITE NEGATIVE (NEGATIVE); URINE UROBILINOGEN NEGATIVE mg/dL (0.2-1.0)
[2018-01-10 18:08] LABS: URINE LEUK ESTERASE 3+ (NEGATIVE); URINE PROTEIN 1+ (NEGATIVE)
[2018-01-10 18:43] LABS: EPI CELLS MODERATE /HPF (FEW); URINE BACTERIA MANY /hpf (NONE SEEN); URINE MUCUS RARE
--- NOTE | 2018-01-10 19:29 | PN ---
Progress Note, Physician History of Present Illness: The patient is a 67 year old female with a past medical history of CHF, COPD ( on 3 L NC @ baseline) PE, CVA (w/residual L sided visual loss), IDDM who was BIBA from [facility] for revist secondary to abnormal labs and wheezing for 2 days. The patient states that she has not been feeling well lately and the physician at [facility] did blood work on the patient. Today the doctor contacted the patient to let her know that her labs were abnormal and that she should go to the emergency department to receive a blood transfusion. The patient notes that she has received a blood transfusion in that past. The patient states that the first time she received transfusion she experienced severe respiratory distress and was admitted to the ICU. She endorses wheezy at baseline but is currently experiencing increased wheezing. - Current Medication List Current Medications: Active Medications Acetaminophen (Tylenol -) 650 mg PO BID [facility] Last Admin: 01/10/18 16:08 Dose: 650 mg Albuterol/Ipratropium (Duoneb -) 1 amp NEB RQID [facility] Last Admin: 01/10/18 16:00 Dose: 1 amp Budesonide/Formoterol Fumarate (Symbicort 160/4.5mcg -) 1 puff IH BID [facility] Last Admin: 01/10/18 09:03 Dose: 1 puff Cholecalciferol (Vitamin D3 -) 2,000 unit PO DAILY [facility] Last Admin: 01/10/18 09:01 Dose: 2,000 unit Ferrous Sulfate (Feosol -) 325 mg PO TIDCM [facility] Last Admin: 01/10/18 17:32 Dose: 325 mg Insulin Detemir (Levemir Vial) 10 units SQ ACBK [facility] Last Admin: 01/10/18 06:42 Dose: Not Given Meclizine HCl (Antivert -) 12.5 mg PO Q12H PRN PRN Reason: VERTIGO Non-Formulary Medication (Cyclosporine [Restasis]) 1 each OU BID [facility] Polyethylene Glycol (Miralax (For Daily Use) -) 17 gm PO DAILY [facility] Last Admin: 01/10/18 09:19 Dose: Not Given Rosuvastatin Calcium (Crestor -) 10 mg PO DAILY [facility] Last Admin: 01/10/18 09:01 Dose: 10 mg Tiotropium [place] (Spiriva -) 1 puff IH DAILY [facility] Last Admin: 03/18/18 09:05 Dose: 1 puff - Objective Vital Signs: Vital Signs Temperature 100.2 F H 01/10/18 14:00 Pulse Rate 108 H 01/10/18 14:00 Respiratory Rate 20 01/10/18 14:00 Blood Pressure 107/48 01/10/18 14:00 O2 Sat by Pulse Oximetry (%) 96 01/10/18 09:00 Labs: CBC, BMP 01/10/18 06:57 01/10/18 06:57 INR, PTT INR 3.48 (0.82-1.09) H D 01/10/18 06:57 Problem List - Problems (1) Acute on chronic diastolic (congestive) heart failure Code(s): I50.33 - ACUTE ON CHRONIC DIASTOLIC (CONGESTIVE) HEART FAILURE (2) Anemia Code(s): D64.9 - ANEMIA, UNSPECIFIED Qualifiers: Anemia type: unspecified type Qualified Code(s): D64.9 - Anemia, unspecified (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 Code(s): Z79.01 - LONG-TERM (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 OF 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 (4) Acute exacerbation of chronic bronchitis Code(s): J20.9 - ACUTE BRONCHITIS, UNSPECIFIED; J42 - UNSPECIFIED CHRONIC BRONCHITIS (5) CKD (chronic kidney disease) Code(s): N18.9 - CHRONIC KIDNEY DISEASE, UNSPECIFIED (6) COPD (chronic obstructive pulmonary disease) Code(s): J44.9 - CHRONIC OBSTRUCTIVE PULMONARY DISEASE, UNSPECIFIED (7) Sleep apnea Code(s): G47.30 - SLEEP APNEA, UNSPECIFIED (8) Diabetes Code(s): E11.9 - TYPE 2 DIABETES MELLITUS WITHOUT COMPLICATIONS (9) Morbid obesity Code(s): E66.01 - MORBID (SEVERE) OBESITY DUE TO EXCESS CALORIES (10) Pulmonary embolus Code(s): I26.99 - OTHER PULMONARY EMBOLISM WITHOUT ACUTE COR PULMONALE (11) Pulmonary hypertension Code(s): I27.2 - OTHER SECONDARY PULMONARY HYPERTENSION * DO NOT USE * (12) Stroke Code(s): I63.9 - CEREBRAL INFARCTION, UNSPECIFIED (13) HLD (hyperlipidemia) Code(s): E78.5 - HYPERLIPIDEMIA, UNSPECIFIED
--- NOTE | 2018-01-10 23:41 | PN ---
Progress Note, Physician History of Present Illness: Pt c/o lower abdomimnal pain - Current Medication List Current Medications: Active Medications Acetaminophen (Tylenol -) 650 mg PO BID [facility] Last Admin: 01/10/18 22:02 Dose: Not Given Albuterol/Ipratropium (Duoneb -) 1 amp NEB RQID [facility] Last Admin: 01/10/18 20:08 Dose: 1 amp Budesonide/Formoterol Fumarate (Symbicort 160/4.5mcg -) 1 puff IH BID [facility] Last Admin: 01/10/18 22:03 Dose: 1 puff Cholecalciferol (Vitamin D3 -) 2,000 unit PO DAILY [facility] Last Admin: 01/10/18 09:01 Dose: 2,000 unit Ferrous Sulfate (Feosol -) 325 mg PO TIDCM [facility] Last Admin: 01/10/18 17:32 Dose: 325 mg Insulin Detemir (Levemir Vial) 10 units SQ ACBK [facility] Last Admin: 01/10/18 06:42 Dose: Not Given Meclizine HCl (Antivert -) 12.5 mg PO Q12H PRN PRN Reason: VERTIGO Non-Formulary Medication (Cyclosporine [Restasis]) 1 each OU BID [facility] Polyethylene Glycol (Miralax (For Daily Use) -) 17 gm PO DAILY [facility] Last Admin: 01/10/18 09:19 Dose: Not Given Rosuvastatin Calcium (Crestor -) 10 mg PO DAILY [facility] Last Admin: 01/10/18 09:01 Dose: 10 mg Tiotropium [place] (Spiriva -) 1 puff IH DAILY [facility] Last Admin: 01/10/18 09:05 Dose: 1 puff - Objective Vital Signs: Vital Signs Temperature 98.8 F 01/10/18 22:00 Pulse Rate 98 H 01/10/18 22:00 Respiratory Rate 20 01/10/18 22:00 Blood Pressure 100/58 01/10/18 22:00 O2 Sat by Pulse Oximetry (%) 98 01/10/18 21:00 Constitutional: Yes: Well Nourished Neck: Yes: WNL, Supple Cardiovascular: Yes: WNL, Regular Rate and Rhythm Respiratory: Yes: WNL, Regular, CTA Bilaterally Gastrointestinal: Yes: WNL, Normal Bowel Sounds, Soft, Abdomen, Obese Labs: CBC, BMP 01/10/18 06:57 01/10/18 06:57 INR, PTT INR 3.48 (0.82-1.09) H D 01/10/18 06:57 Problem List - Problems (1) Abdominal pain Assessment/Plan: ?GERD VS gastritis Check ct scan abd/pelvis Code(s): R10.9 - UNSPECIFIED ABDOMINAL PAIN (2) Fever Assessment/Plan: Pt pancultured ID consult Code(s): R50.9 - FEVER, UNSPECIFIED (3) Anemia Assessment/Plan: ?multifactorial S/p transfusion PRBC's Follow h/h As per heme Code(s): D64.9 - ANEMIA, UNSPECIFIED (4) History of pulmonary embolism Assessment/Plan: PT/INR is supratherapeutic Hold coumadin and monitor PT/INR Code(s): Z86.711 - PERSONAL HISTORY OF PULMONARY EMBOLISM (5) COPD (chronic obstructive pulmonary disease) Code(s): J44.9 - CHRONIC OBSTRUCTIVE PULMONARY DISEASE, UNSPECIFIED (6) Chronic diastolic (congestive) heart failure Code(s): I50.32 - CHRONIC DIASTOLIC (CONGESTIVE) HEART FAILURE (7) DVT (deep venous thrombosis) Code(s): I82.409 - ACUTE EMBOLISM AND THOMBOS UNSP DEEP VN UNSP LOWER EXTREMITY (8) GERD (gastroesophageal reflux disease) Code(s): K21.9 - GASTRO-ESOPHAGEAL REFLUX DISEASE WITHOUT ESOPHAGITIS (9) HLD (hyperlipidemia) Code(s): E78.5 - HYPERLIPIDEMIA, UNSPECIFIED (10) Hypertension Code(s): I10 - ESSENTIAL (PRIMARY) HYPERTENSION (11) Morbid obesity Code(s): E66.01 - MORBID (SEVERE) OBESITY DUE TO EXCESS CALORIES
[2018-01-11] MEDS: INSULIN DETEMIR 100 UNITS/ML MDV SQ SCH (06:05)
[2018-01-11 07:29] LABS: CHLORIDE 106 mmol/L (98-107); POTASSIUM 4.2 mmol/L (3.5-5.1); SODIUM 144 mmol/L (136-145)
[2018-01-11 07:32] LABS: HEMATOCRIT 26.4 % (32.4-45.2); MCH 25.5 pg (25.7-33.7); MCHC 30.3 g/dl (32.0-36.0); MEAN CELL VOLUME 84.2 fl (80-96); MEAN PLT VOLUME 9.5 fl (7.5-11.1); PLATELET COUNT 258 K/MM3 (134-434); RBC 3.13 M/mm3 (3.60-5.2); RDW 18.3 % (11.6-15.6); WHITE BLOOD COUNT 13.6 K/mm3 (4.0-10.0)
[2018-01-11 07:50] LABS: INR 1.91 (0.82-1.09); PROTHROMBIN TIME (PATIENT) 21.6 SEC (9.98-11.88)
[2018-01-11 07:58] LABS: ALBUMIN 2.2 g/dl (3.4-5.0); ALK PHOS 43 U/L (45-117); ANION GAP 11 (8-16); BILIRUBIN,TOTAL 0.7 mg/dL (0.2-1.0); BLOOD UREA NITROGEN 18 mg/dL (7-18); CALCIUM 7.8 mg/dL (8.5-10.1); CO2 27 mmol/L (21-32); CREATININE 1.3 mg/dL (0.55-1.02); GLUCOSE,RANDOM 84 mg/dL (74-106); SGOT/AST 16 U/L (15-37); SGPT/ALT 14 U/L (12-78); TOT PROT 4.6 g/dl (6.4-8.2)
[2018-01-11] MEDS: ALBUTEROL SO4 2.5/IPRATROPIUM 0.5 INH SOL 3 ML VIAL.NEB. NEB SCH ×2 (08:58→12:00)
[2018-01-11 11:07] LABS: PLATELET ESTIMATE NORMAL; TARGET CELLS 2+; TEAR DROP CELLS 1+
[2018-01-11] MEDS: ROSUVASTATIN CA 10 MG TABLET (FP) PO SCH (11:43)
[2018-01-11] MEDS: FERROUS SO4 325 MG TABLET (FP) PO SCH ×3 (11:43→18:55)
[2018-01-11] MEDS: BUDESONIDE/FORMETEROL FUMARATE 160/4.5 mcg INHALER IH SCH ×2 (11:43→22:05)
[2018-01-11] MEDS: CHOLECALCIFEROL (VITAMIN D3) 1,000 UNIT TABLET (FP) PO SCH (11:43)
[2018-01-11] MEDS: POLYETHYLENE GLYCOL 3350 119 GM BTL PO SCH ×2 (11:43→18:57)
[2018-01-11] MEDS: ACETAMINOPHEN 325 MG TABLET (FP) PO SCH ×2 (11:44→22:04)
[2018-01-11] MEDS: TIOTROPIUM BROMIDE 18 MCG CAPSULES IH SCH (12:13)
--- NOTE | 2018-01-11 12:47 | PN ---
Progress Note (short form) - Note Progress Note: PULMONARY CONSULTATION DICTATED 01/11/18 IMP DYSPNEA ADVANCE COPD WITH CHRONIC HYPOXEMIC RESPIRATORY FAILURE PULMONARY HTN SEVERE SYMPTOMATIC ANEMIA SUPRA-THERAPEUTIC INR DIASTOLIC HF H/O CVA H/O PE IDDM HTN CKD MORBID OBESITY PLAN INHALED BRONCHODILATORS O2 MONITOR H+H TRANSFUSE NEEDED GI W/U MONITOR INR,AMIE FOX Problem List - Problems (1) Symptomatic anemia Code(s): D64.9 - ANEMIA, UNSPECIFIED (2) Anemia Code(s): D64.9 - ANEMIA, UNSPECIFIED Qualifiers: Anemia type: unspecified type Qualified Code(s): D64.9 - Anemia, unspecified (3) care rep current use of anticoagulant Code(s): Z79.01 - [facility] (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 OF 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 (4) Warfarin overdosage Code(s): T45.511A - POISONING BY 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, ACCIDENTAL, INIT (5) CHF (congestive heart failure) Code(s): I50.9 - HEART FAILURE, UNSPECIFIED Qualifiers: Qualified Code(s): I50.33 - Acute on chronic diastolic (congestive) heart failure (6) CKD (chronic kidney disease) Code(s): N18.9 - CHRONIC KIDNEY DISEASE, UNSPECIFIED (7) COPD (chronic obstructive pulmonary disease) Code(s): J44.9 - CHRONIC OBSTRUCTIVE PULMONARY DISEASE, UNSPECIFIED (8) Diabetes Code(s): E11.9 - TYPE 2 DIABETES MELLITUS WITHOUT COMPLICATIONS (9) GERD (gastroesophageal reflux disease) Code(s): K21.9 - GASTRO-ESOPHAGEAL REFLUX DISEASE WITHOUT ESOPHAGITIS (10) HLD (hyperlipidemia) Code(s): E78.5 - HYPERLIPIDEMIA, UNSPECIFIED (11) History of pulmonary embolism Code(s): Z86.711 - PERSONAL HISTORY OF PULMONARY EMBOLISM (12) Morbid obesity Code(s): E66.01 - MORBID (SEVERE) OBESITY DUE TO EXCESS CALORIES (13) Pulmonary hypertension Code(s): I27.2 - OTHER SECONDARY PULMONARY HYPERTENSION * DO NOT USE * (14) SOB (shortness of breath) Code(s): R06.02 - SHORTNESS OF BREATH (15) Supratherapeutic INR Code(s): R79.1 - ABNORMAL COAGULATION PROFILE (16) Chronic hypoxemic respiratory failure Code(s): J96.11 - CHRONIC RESPIRATORY FAILURE WITH HYPOXIA (17) Chronic respiratory failure with hypoxia, on home O2 therapy Code(s): J96.11 - CHRONIC RESPIRATORY FAILURE WITH HYPOXIA; Z99.81 - DEPENDENCE ON SUPPLEMENTAL OXYGEN
--- NOTE | 2018-01-11 13:50 | CONS ---
DATE OF CONSULTATION: 01/11/2018 REFERRING PHYSICIAN: Graciela Whitlock MD HISTORY: The patient is a 67-year-old black female known to me from previous hospitalizations as well as office follow up with advanced COPD on O2 with chronic hypoxemic respiratory failure, congestive heart failure, pulmonary emboli, pulmonary hypertension, history of CVA with residual left-sided visual loss, insulin-dependent diabetes mellitus, morbid obesity resident of [facility] transferred to [facility] secondary to anemia and supratherapeutic INR. The patient was at [place]. She had labs obtained there, which revealed an INR of 8.7. She was also noted to be markedly anemic with a hemoglobin of 6.9. She was transferred to [facility] for further management. The patient received 2 units of packed red blood cells. Of note, the patient has been complaining about a week of shortness of breath, some cough, and some bronchospasm. Denies any fevers, chills, or hemoptysis. Denies any chest pains or palpitations. Denies any sputum production. As stated before, a history of longstanding history of COPD and pulmonary hypertension maintained on O2 as well as anticoagulation and inhaled bronchodilators. She has required multiple courses of intravenous and p.o. steroids. She is markedly dyspneic with minimal exertion. She denies orthopnea, denies any PND. She had a sleep screen performed recently, which revealed no evidence of obstructive sleep apnea. PAST MEDICAL HISTORY: Again include advanced COPD with chronic hypoxemic respiratory failure, chronic pulmonary emboli, pulmonary hypertension, anemia, insulin-dependent diabetes mellitus, morbid obesity, history of CVA with residual left-sided visual loss. SOCIAL HISTORY: History of tobacco use. Quit in 1998. No occupational exposures. REVIEW OF SYSTEMS: Positive orthopnea. Positive dyspnea. Positive shortness of breath. Positive bronchospasm. No chest pain, no palpitations, no fever, no chills. Positive weakness. No abdominal pain. Positive lower extremity edema. CURRENT MEDICATIONS: Include cyclosporine, Symbicort, Tylenol, Antivert, Spiriva, DuoNeb, MiraLAX, Crestor, Levemir, Feosol, cholecalciferol, vitamin D3, and Theosol. PHYSICAL EXAMINATION: General: The patient is an obese female well-developed, awake, alert currently in no acute distress. Vital Signs: She is currently afebrile. Blood pressure 102/56, respiratory rate 20, O2 saturation 98% on 3 L. HEENT: Normocephalic and atraumatic. Neck: Supple. Heart: Regular S1, S2. Chest: Diminished breath sounds bilaterally. A few scattered bilateral wheezes. Abdomen: Soft. Bowel sounds positive. Extremities: Bilateral lower extremity edema. LABORATORIES: On admission, WBC is 11.8, hemoglobin 6.9, hematocrit 23.5, platelet count 346,000. Currently, WBC 13.6, hemoglobin 8 g, hematocrit 26.4 with a platelet count of 258,000. INR on admission was 8.79, currently 1.91. BUN 18, creatinine 1.3, BNP 220. Chest x-ray: No infiltrates, no effusions. Decreased congestion bilaterally. IMPRESSION: 1. Chronic hypoxemic respiratory failure secondary to: 2. Advanced chronic obstructive pulmonary disease O2 dependent. 3. History of pulmonary hypertension. 4. Severe symptomatic anemia. 5. Supratherapeutic international normalized ratio. 6. Diastolic congestive heart failure. 7. Morbid obesity. 8. Diabetes. 9. Chronic kidney disease. PLAN: Continue supplemental O2, inhaled bronchodilators. Monitor INR. Monitor the CBC. Monitor hemoglobin and hematocrit. Transfuse as needed. Supplemental O2. BiPAP if the patient develops increasing respiratory distress. STEPHIE FOX M.D. [id number]
--- NOTE | 2018-01-11 14:44 | PN ---
Progress Note, Physician - Current Medication List Current Medications: Active Medications Acetaminophen (Tylenol -) 650 mg PO BID [facility] Last Admin: 01/11/18 11:44 Dose: Not Given Albuterol Sulfate (Ventolin 0.083% Nebulizer Soln -) 1 amp NEB Q4H PRN PRN Reason: SHORT OF BREATH/WHEEZING Budesonide/Formoterol Fumarate (Symbicort 160/4.5mcg -) 1 puff IH BID [facility] Last Admin: 01/11/18 11:43 Dose: 1 puff Cholecalciferol (Vitamin D3 -) 2,000 unit PO DAILY [facility] Last Admin: 01/11/18 11:43 Dose: 2,000 unit Ferrous Sulfate (Feosol -) 325 mg PO TIDCM [facility] Last Admin: 01/11/18 12:13 Dose: 325 mg Insulin Detemir (Levemir Vial) 10 units SQ ACBK [facility] Last Admin: 01/11/18 06:05 Dose: Not Given Meclizine HCl (Antivert -) 12.5 mg PO Q12H PRN PRN Reason: VERTIGO Non-Formulary Medication (Cyclosporine [Restasis]) 1 each OU BID [facility] Polyethylene Glycol (Miralax (For Daily Use) -) 17 gm PO DAILY [facility] Last Admin: 01/11/18 11:43 Dose: Not Given Rosuvastatin Calcium (Crestor -) 10 mg PO DAILY [facility] Last Admin: 01/11/18 11:43 Dose: 10 mg Tiotropium [place] (Spiriva -) 1 puff IH DAILY [facility] Last Admin: 01/11/18 12:13 Dose: 1 puff - Objective Vital Signs: Vital Signs Temperature 99.1 F 01/11/18 09:00 Pulse Rate 92 H 01/11/18 09:00 Respiratory Rate 20 01/11/18 09:00 Blood Pressure 100/49 01/11/18 09:00 O2 Sat by Pulse Oximetry (%) 98 01/11/18 09:00 Labs: CBC, BMP 01/11/18 06:30 01/11/18 06:30 INR, PTT INR 1.91 (0.82-1.09) H D 01/11/18 06:30 Assessment/Plan IMP: Anemia Supratherapeutic INR Chronic COPD History of Pulmonary Embolism on Coumadin PAF Hypokalemia Hypomagnesemia REC: Maintain K+ and Mg2+ Coumadin on hold as INR was supratherapeutic, now back below 2, pt has been on coumadin due to h/o DVT, prior CVA, and Pafib, will need to re-evaluate the risk vs benefit depending on the source of anemia Currently volume status approximately at baseline, monitor closely with PRBC transfusions, Cont po Lasix at current dose for now, if needed can dose IV Lasix prn Ok to dc tele
--- NOTE | 2018-01-11 14:46 | PN ---
Progress Note, Physician History of Present Illness: seen and examined today in [facility]. no overnight events. no new complaints. - Current Medication List Current Medications: Active Medications Acetaminophen (Tylenol -) 650 mg PO BID [facility] Last Admin: 01/11/18 11:44 Dose: Not Given Albuterol Sulfate (Ventolin 0.083% Nebulizer Soln -) 1 amp NEB Q4H PRN PRN Reason: SHORT OF BREATH/WHEEZING Budesonide/Formoterol Fumarate (Symbicort 160/4.5mcg -) 1 puff IH BID [facility] Last Admin: 01/11/18 11:43 Dose: 1 puff Cholecalciferol (Vitamin D3 -) 2,000 unit PO DAILY [facility] Last Admin: 01/11/18 11:43 Dose: 2,000 unit Ferrous Sulfate (Feosol -) 325 mg PO TIDCM [facility] Last Admin: 01/11/18 12:13 Dose: 325 mg Insulin Detemir (Levemir Vial) 10 units SQ ACBK [facility] Last Admin: 01/11/18 06:05 Dose: Not Given Meclizine HCl (Antivert -) 12.5 mg PO Q12H PRN PRN Reason: VERTIGO Non-Formulary Medication (Cyclosporine [Restasis]) 1 each OU BID [facility] Polyethylene Glycol (Miralax (For Daily Use) -) 17 gm PO DAILY [facility] Last Admin: 01/11/18 11:43 Dose: Not Given Rosuvastatin Calcium (Crestor -) 10 mg PO DAILY [facility] Last Admin: 01/11/18 11:43 Dose: 10 mg Tiotropium [place] (Spiriva -) 1 puff IH DAILY [facility] Last Admin: 01/11/18 12:13 Dose: 1 puff - Objective Vital Signs: Vital Signs Temperature 99.1 F 01/11/18 09:00 Pulse Rate 92 H 01/11/18 09:00 Respiratory Rate 20 01/11/18 09:00 Blood Pressure 100/49 01/11/18 09:00 O2 Sat by Pulse Oximetry (%) 98 01/11/18 09:00 Constitutional: Yes: No Distress, Calm, Obese Eyes: Yes: Conjunctiva Clear, EOM Intact HENT: Yes: Atraumatic, Normocephalic Neck: Yes: Supple, Trachea Midline Cardiovascular: Yes: Regular Rate and Rhythm, S1, S2. No: Bradycardia, Tachycardia, Pulse Irregular, Bruit, JVD, Gallop, Murmur, Rub, S3, S4, Varicosities Respiratory: Yes: Regular, Diminished, Wheezes. No: Rales, Rhonchi, SOB Gastrointestinal: Yes: Normal Bowel Sounds, Soft. No: Distention, Tenderness Musculoskeletal: Yes: Muscle Weakness Extremities: Yes: WNL Edema: No Peripheral Pulses WNL: Yes Peripheral Pulses: Left Doralis Pedis: 2+, Right Dorsalis Pedis: 2+ Neurological: Yes: Alert, Oriented Psychiatric: Yes: Alert, Oriented Labs: CBC, BMP 01/11/18 06:30 01/11/18 06:30 INR, PTT INR 1.91 (0.82-1.09) H D 01/11/18 06:30 - ....Imaging Chest X-ray: Report Reviewed, Image Reviewed EKG: Report Reviewed, Image Reviewed Other: Report Reviewed, Image Reviewed (tele-NSR, Sinus tach, possible brief Pafib) Assessment/Plan IMP: Anemia Supratherapeutic INR Chronic COPD History of Pulmonary Embolism on Coumadin PAF Hypokalemia Hypomagnesemia REC: Maintain K+ and Mg2+ Coumadin on hold as INR was supratherapeutic, now back below 2, pt has been on coumadin due to h/o DVT, prior CVA, and Pafib, will need to re-evaluate the risk vs benefit depending on the source of anemia Currently volume status approximately at baseline, monitor closely with PRBC transfusions, Cont po Lasix at current dose for now, if needed can dose IV Lasix prn Ok to dc tele
--- NOTE | 2018-01-11 17:06 | CON.ID ---
Consult Consult Specialty:: infectious diseases Referred by:: Reason for Consultation:: hypxia r/o pna,leukocytosis - History of Present Illness Chief Complaint: sob abn labs History of Present Illness: 67 year old female with a past medical history of CHF, COPD (on 3 L NC @ baseline) PE, CVA (w/residual L sided visual loss), IDDM who was BIBA from [facility] for revist secondary to abnormal labs and wheezing for 2 days. The patient states that she has not been feeling well lately and the physician at [facility] did blood work on the patient. patient was send to the hospital because of low h and h patient according to her had received blood transfusion and could not tolerate the transfusion and had developed a resp distress . She endorses wheezy at baseline but is currently experiencing increased wheezing. 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 Cardio/Vascular: Yes: CHF (chronic diastolic), HTN, Hyperlipdemia Pulmonary: Yes: COPD, O2 Dependent, Pulmonary Embolus, Other (pulmonary HTN) - Alcohol/Substance Use Hx Alcohol Use: No - Smoking History Smoking history: Unknown if ever smoked Have you smoked in the past 12 months: No Aproximately how many cigarettes per day: 0 If you are a former smoker, when did you quit?: 1998 - Social History Usual Living Arrangement: Alone History of Recent Travel: No Home Medications - Allergies Allergies/Adverse Reactions: Allergies Allergy/AdvReac Type Severity Reaction Status Date / Time No Known Allergies Allergy Verified 01/08/18 19:57 - Home Medications Home Medications: Ambulatory Orders Acetaminophen [Tylenol] 650 mg PO BID 01/08/18 Albuterol 0.083% Nebulizer Claudia [Ventolin 0.083%] 1 neb NEB Q4H PRN 01/08/18 Albuterol 2.5/Ipratropium 0.5 [Duoneb -] 1 neb IH QID 01/08/18 Bacitracin - [Bacitracin Topical Ointment -] 1 applic TP DAILY 01/08/18 Benzocaine Ointment [Americaine] 1 applic TP PRN PRN 01/08/18 Budesonide/Formeterol Fumarate [SYMBICORT 160/4.5mcg -] 1 inh PO BID 01/08/18 Cholecalciferol (Vitamin D3) [Vitamin D3 -] 2,000 unit PO DAILY 01/08/18 Cyclosporine [Restasis] 1 each OU BID 01/08/18 Ferrous Sulfate [Feosol] 325 mg PO TID 01/08/18 Furosemide [Lasix] 20 mg PO BID 01/08/18 Guaifenesin [Robitussin] 15 ml PO TID 01/08/18 Insulin Glargine,Hum.rec.anlog [Lantus Solostar] 10 unit SQ DAILY 01/08/18 Meclizine HCl 12.5 mg PO BID PRN 01/08/18 Menthol/Zinc Oxide [Calmoseptine Ointment] 3.5 gm TP DAILY 01/08/18 Nifedipine ER [Procardia Xl -] 30 mg PO DAILY 01/08/18 Polyethylene Glycol 3350 [Glycolax] 119 gm PO DAILY 01/08/18 Prednisone 5 mg PO DAILY 01/08/18 Prednisone 10 mg PO DAILY 01/08/18 Rosuvastatin Calcium [Crestor] 10 mg PO DAILY 01/08/18 Sennosides [Natural Laxative] 2 tab PO HS 01/08/18 Tiotropium [place] [Spiriva Respimat] 2 inh IH DAILY 01/08/18 Valsartan 160 mg PO DAILY 01/08/18 Warfarin Na [Coumadin] 2 mg PO DAILY 01/08/18 Review of Systems - Review of Systems Constitutional: reports: No Symptoms Eyes: reports: No Symptoms HENT: reports: No Symptoms Neck: reports: No Symptoms Cardiovascular: reports: Shortness of Breath Respiratory: reports: SOB, Wheezing Gastrointestinal: reports: No Symptoms Physical Exam Vital Signs: Vital Signs Temperature 99.1 F 01/11/18 09:00 Pulse Rate 92 H 01/11/18 09:00 Respiratory Rate 20 01/11/18 09:00 Blood Pressure 100/49 01/11/18 09:00 O2 Sat by Pulse Oximetry (%) 98 01/11/18 09:00 Constitutional: Yes: Calm, Mild Distress Eyes: Yes: Conjunctiva Clear HENT: Yes: Atraumatic, Normocephalic Neck: Yes: Supple, Trachea Midline Cardiovascular: Yes: Regular Rate and Rhythm Respiratory: Yes: Regular, Poor Air Entry, Wheezes Gastrointestinal: Yes: Normal Bowel Sounds, Soft Musculoskeletal: Yes: Other Extremities: Yes: Other Neurological: Yes: Alert Psychiatric: Yes: Alert Labs: CBC, BMP 01/11/18 06:30 01/11/18 06:30 Assessment/Plan - Problems (1) Acute on chronic diastolic (congestive) heart failure Code(s): I50.33 - ACUTE ON CHRONIC DIASTOLIC (CONGESTIVE) HEART FAILURE (2) Anemia Code(s): D64.9 - ANEMIA, UNSPECIFIED Qualifiers: Anemia type: unspecified type Qualified Code(s): D64.9 - Anemia, unspecified (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 Code(s): Z79.01 - [facility] (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 OF 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 (4) Acute exacerbation of chronic bronchitis Code(s): J20.9 - ACUTE BRONCHITIS, UNSPECIFIED; J42 - UNSPECIFIED CHRONIC BRONCHITIS (5) CKD (chronic kidney disease) Code(s): N18.9 - CHRONIC KIDNEY DISEASE, UNSPECIFIED (6) COPD (chronic obstructive pulmonary disease) Code(s): J44.9 - CHRONIC OBSTRUCTIVE PULMONARY DISEASE, UNSPECIFIED (7) Sleep apnea Code(s): G47.30 - SLEEP APNEA, UNSPECIFIED (8) Diabetes Code(s): E11.9 - TYPE 2 DIABETES MELLITUS WITHOUT COMPLICATIONS (9) Morbid obesity Code(s): E66.01 - MORBID (SEVERE) OBESITY DUE TO EXCESS CALORIES (10) Pulmonary embolus Code(s): I26.99 - OTHER PULMONARY EMBOLISM WITHOUT ACUTE COR PULMONALE (11) Pulmonary hypertension Code(s): I27.2 - OTHER SECONDARY PULMONARY HYPERTENSION * DO NOT USE * (12) Stroke Code(s): I63.9 - CEREBRAL INFARCTION, UNSPECIFIED (13) HLD (hyperlipidemia) Code(s): E78.5 - HYPERLIPIDEMIA, UNSPECIFIED (14) Warfarin overdosage Code(s): T45.511A - POISONING BY 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, ACCIDENTAL, INIT plan continue current mgmt follow labs monitor wbc will hold of on starting abx at the moment rest as per the teams
[2018-01-11] MEDS: ALBUTEROL SO4 0.083% IH SOL 2.5 MG/3 ML VIAL.NEB. NEB PRN ×2 (17:45→21:50)
[2018-01-11] MEDS: WARFARIN NA 2 MG TABLET (UD) PO SCH (19:20)
[2018-01-11] MEDS ORDERED: INSULIN (NOVOLOG) ASPART 100 UNITS/ML 10ML VIAL ONE (19:23)
--- NOTE | 2018-01-11 19:58 | PN ---
Progress Note, Physician History of Present Illness: Pt is unsure if she can lay flat for ct scan abd - Current Medication List Current Medications: Active Medications Acetaminophen (Tylenol -) 650 mg PO BID [facility] Last Admin: 01/11/18 11:44 Dose: Not Given Albuterol Sulfate (Ventolin 0.083% Nebulizer Soln -) 1 amp NEB Q4H PRN PRN Reason: SHORT OF BREATH/WHEEZING Last Admin: 01/11/18 17:45 Dose: 1 amp Budesonide/Formoterol Fumarate (Symbicort 160/4.5mcg -) 1 puff IH BID [facility] Last Admin: 01/11/18 11:43 Dose: 1 puff Cholecalciferol (Vitamin D3 -) 2,000 unit PO DAILY [facility] Last Admin: 01/11/18 11:43 Dose: 2,000 unit Ferrous Sulfate (Feosol -) 325 mg PO TIDCM [facility] Last Admin: 01/11/18 18:55 Dose: 325 mg Insulin Detemir (Levemir Vial) 10 units SQ ACBK [facility] Last Admin: 01/11/18 06:05 Dose: Not Given Meclizine HCl (Antivert -) 12.5 mg PO Q12H PRN PRN Reason: VERTIGO Non-Formulary Medication (Cyclosporine [Restasis]) 1 each OU BID [facility] Polyethylene Glycol (Miralax (For Daily Use) -) 17 gm PO DAILY [facility] Last Admin: 01/11/18 18:57 Dose: 17 gm Rosuvastatin Calcium (Crestor -) 10 mg PO DAILY [facility] Last Admin: 01/11/18 11:43 Dose: 10 mg Tiotropium [place] (Spiriva -) 1 puff IH DAILY [facility] Last Admin: 01/11/18 12:13 Dose: 1 puff Warfarin Sodium (Coumadin -) 2 mg PO DAILY@1800 [facility] Last Admin: 01/11/18 19:20 Dose: 2 mg - Objective Vital Signs: Vital Signs Temperature 98.9 F 01/11/18 16:30 Pulse Rate 69 01/11/18 16:30 Respiratory Rate 20 01/11/18 16:30 Blood Pressure 128/54 01/11/18 16:30 O2 Sat by Pulse Oximetry (%) 98 01/11/18 09:00 Constitutional: Yes: Obese HENT: Yes: WNL Neck: Yes: WNL, Supple Cardiovascular: Yes: WNL, Regular Rate and Rhythm Respiratory: Yes: WNL, Regular, CTA Bilaterally Gastrointestinal: Yes: WNL, Normal Bowel Sounds, Soft, Abdomen, Obese Extremities: Yes: Other ((+) ecchymosis on upper extremities) Edema: LLE: 1+, RLE: 1+ Labs: CBC, BMP 01/11/18 06:30 01/11/18 06:30 INR, PTT INR 1.91 (0.82-1.09) H D 01/11/18 06:30 Problem List - Problems (1) Abdominal pain Assessment/Plan: ?GERD VS gastritis Check ct scan abd/pelvis Code(s): R10.9 - UNSPECIFIED ABDOMINAL PAIN (2) Fever Code(s): R50.9 - FEVER, UNSPECIFIED (3) Anemia Assessment/Plan: ?multifactorial S/p transfusion PRBC's Follow h/h Will dc iron Code(s): D64.9 - ANEMIA, UNSPECIFIED (4) History of pulmonary embolism Assessment/Plan: PT/INR is slightly suntherapeutic Will restart coumadin at lower dose and observe pt/inr Code(s): Z86.711 - PERSONAL HISTORY OF PULMONARY EMBOLISM (5) Chronic diastolic (congestive) heart failure Assessment/Plan: Pt w/ edema Will restart lasix Code(s): I50.32 - CHRONIC DIASTOLIC (CONGESTIVE) HEART FAILURE (6) COPD (chronic obstructive pulmonary disease) Code(s): J44.9 - CHRONIC OBSTRUCTIVE PULMONARY DISEASE, UNSPECIFIED (7) DVT (deep venous thrombosis) Code(s): I82.409 - ACUTE EMBOLISM AND THOMBOS UNSP DEEP VN UNSP LOWER EXTREMITY (8) GERD (gastroesophageal reflux disease) Code(s): K21.9 - GASTRO-ESOPHAGEAL REFLUX DISEASE WITHOUT ESOPHAGITIS (9) HLD (hyperlipidemia) Code(s): E78.5 - HYPERLIPIDEMIA, UNSPECIFIED (10) Hypertension Code(s): I10 - ESSENTIAL (PRIMARY) HYPERTENSION (11) Morbid obesity Code(s): E66.01 - MORBID (SEVERE) OBESITY DUE TO EXCESS CALORIES
[2018-01-12] MEDS: INSULIN DETEMIR 100 UNITS/ML MDV SQ SCH (06:54)
[2018-01-12 07:46] LABS: ALBUMIN 2.1 g/dl (3.4-5.0); ANION GAP 9 (8-16); BLOOD UREA NITROGEN 16 mg/dL (7-18); CHLORIDE 103 mmol/L (98-107); CO2 29 mmol/L (21-32); GLUCOSE,RANDOM 89 mg/dL (74-106); POTASSIUM 4.3 mmol/L (3.5-5.1); SGOT/AST 14 U/L (15-37); SGPT/ALT 13 U/L (12-78); SODIUM 141 mmol/L (136-145)
[2018-01-12 07:53] LABS: ALK PHOS 44 U/L (45-117); BILIRUBIN,TOTAL 0.5 mg/dL (0.2-1.0); CALCIUM 7.7 mg/dL (8.5-10.1); CREATININE 1.2 mg/dL (0.55-1.02); TOT PROT 4.6 g/dl (6.4-8.2)
[2018-01-12 08:05] LABS: INR 1.68 (0.82-1.09)
[2018-01-12 08:32] LABS: BASO % 0.6 % (0-2.0); EOS % 0.3 % (0-4.5); HEMATOCRIT 26.1 % (32.4-45.2); HEMOGLOBIN 7.9 GM/dL (10.7-15.3); LYMPH % 19.3 % (8-40); MCH 25.3 pg (25.7-33.7); MCHC 30.5 g/dl (32.0-36.0); MEAN CELL VOLUME 83.1 fl (80-96); MEAN PLT VOLUME 8.9 fl (7.5-11.1); MONO % 14.4 % (3.8-10.2); NEUT % 65.4 % (42.8-82.8); PLATELET COUNT 242 K/MM3 (134-434); RBC 3.14 M/mm3 (3.60-5.2); RDW 18.4 % (11.6-15.6); WHITE BLOOD COUNT 14.3 K/mm3 (4.0-10.0)
[2018-01-12] MEDS: ALBUTEROL SO4 0.083% IH SOL 2.5 MG/3 ML VIAL.NEB. NEB PRN (08:53)
--- NOTE | 2018-01-12 09:36 | PN ---
Progress Note, Physician - Current Medication List Current Medications: Active Medications Acetaminophen (Tylenol -) 650 mg PO BID [facility] Last Admin: 01/11/18 22:04 Dose: Not Given Albuterol Sulfate (Ventolin 0.083% Nebulizer Soln -) 1 amp NEB Q4H PRN PRN Reason: SHORT OF BREATH/WHEEZING Last Admin: 01/12/18 08:53 Dose: 1 amp Budesonide/Formoterol Fumarate (Symbicort 160/4.5mcg -) 1 puff IH BID [facility] Last Admin: 01/11/18 22:05 Dose: 1 puff Cholecalciferol (Vitamin D3 -) 2,000 unit PO DAILY [facility] Last Admin: 01/11/18 11:43 Dose: 2,000 unit Furosemide (Lasix -) 40 mg PO DAILY [facility] Insulin Detemir (Levemir Vial) 10 units SQ ACBK [facility] Last Admin: 01/12/18 06:54 Dose: Not Given Meclizine HCl (Antivert -) 12.5 mg PO Q12H PRN PRN Reason: VERTIGO Non-Formulary Medication (Cyclosporine [Restasis]) 1 each OU BID [facility] Polyethylene Glycol (Miralax (For Daily Use) -) 17 gm PO DAILY [facility] Last Admin: 01/11/18 18:57 Dose: 17 gm Rosuvastatin Calcium (Crestor -) 10 mg PO DAILY [facility] Last Admin: 01/11/18 11:43 Dose: 10 mg Tiotropium [place] (Spiriva -) 1 puff IH DAILY [facility] Last Admin: 01/11/18 12:13 Dose: 1 puff Warfarin Sodium (Coumadin -) 2 mg PO DAILY@1800 [facility] Last Admin: 01/11/18 19:20 Dose: 2 mg - Objective Vital Signs: Vital Signs Temperature 99.1 F 01/12/18 06:14 Pulse Rate 72 01/12/18 06:14 Respiratory Rate 20 01/12/18 06:14 Blood Pressure 98/68 01/12/18 06:14 O2 Sat by Pulse Oximetry (%) 98 01/11/18 21:00 Labs: CBC, BMP 01/12/18 05:30 01/12/18 05:30 INR, PTT INR 1.68 (0.82-1.09) H 01/12/18 05:30 Microbiology 01/10/18 16:30 Blood - Peripheral Venous Blood Culture - Preliminary NO GROWTH OBTAINED AFTER 24 HOURS, INCUBATION TO CONTINUE FOR 4 DAYS. 01/10/18 16:30 Blood - Peripheral Venous Blood Culture - Preliminary NO GROWTH OBTAINED AFTER 24 HOURS, INCUBATION TO CONTINUE FOR 4 DAYS. Laboratory Tests 01/12/18 01/12/18 01/12/18 05:30 05:30 05:30 WBC 14.3 H Hgb 7.9 L Plt Count 242 INR 1.68 H Potassium 4.3 Creatinine 1.2 H Assessment/Plan IMP: Anemia Supratherapeutic INR Chronic COPD History of Pulmonary Embolism on Coumadin PAF Hypokalemia Hypomagnesemia REC: Replete electrolytes. Coumadin on hold as INR was supratherapeutic, now back below 2, pt has been on coumadin due to h/o DVT, prior CVA, and Pafib, will need to re-evaluate the risk vs benefit depending on the source of anemia Currently volume status approximately at baseline, monitor closely with PRBC transfusions, Cont po Lasix at current dose for now, if needed can dose IV Lasix prn
[2018-01-12] MEDS ORDERED: FUROSEMIDE 40 MG TABLET (FP) PO SCH (10:00)
--- NOTE | 2018-01-12 10:14 | PN ---
Progress Note (short form) - Note Progress Note: PULMONARY Still with abdominal discomfort and leg pains. CT A/P done last night, read pending. Some shortness of breath, cough and wheezing but not significantly more than her baseline. Last Vital Signs Temp Pulse Resp BP Pulse Ox 99.1 F 72 20 98/68 98 01/12/18 06:14 01/12/18 06:14 01/12/18 06:14 01/12/18 06:14 01/11/18 21:00 Gen: NAD at rest, mildly tachypneic with speaking Heart: RRR Lung: scattered wheezes, rhonchi Abd: soft, obese, nontender Ext: + edema CBC, BMP 01/12/18 05:30 01/12/18 05:30 Active Medications Acetaminophen (Tylenol -) 650 mg PO BID [facility] Last Admin: 01/11/18 22:04 Dose: Not Given Albuterol Sulfate (Ventolin 0.083% Nebulizer Soln -) 1 amp NEB Q4H PRN PRN Reason: SHORT OF BREATH/WHEEZING Last Admin: 01/12/18 08:53 Dose: 1 amp Budesonide/Formoterol Fumarate (Symbicort 160/4.5mcg -) 1 puff IH BID [facility] Last Admin: 01/11/18 22:05 Dose: 1 puff Cholecalciferol (Vitamin D3 -) 2,000 unit PO DAILY [facility] Last Admin: 01/11/18 11:43 Dose: 2,000 unit Furosemide (Lasix -) 40 mg PO DAILY [facility] Insulin Detemir (Levemir Vial) 10 units SQ ACBK [facility] Last Admin: 01/12/18 06:54 Dose: Not Given Meclizine HCl (Antivert -) 12.5 mg PO Q12H PRN PRN Reason: VERTIGO Non-Formulary Medication (Cyclosporine [Restasis]) 1 each OU BID [facility] Polyethylene Glycol (Miralax (For Daily Use) -) 17 gm PO DAILY [facility] Last Admin: 01/11/18 18:57 Dose: 17 gm Rosuvastatin Calcium (Crestor -) 10 mg PO DAILY [facility] Last Admin: 01/11/18 11:43 Dose: 10 mg Tiotropium [place] (Spiriva -) 1 puff IH DAILY [facility] Last Admin: 01/11/18 12:13 Dose: 1 puff Warfarin Sodium (Coumadin -) 2 mg PO DAILY@1800 [facility] Last Admin: 01/11/18 19:20 Dose: 2 mg A/P Abdominal Pain Symptomatic Anemia Severe COPD Chronic Hypoxic Respiratory Failure LV Diastolic Dysfunction Pulmonary HTN h/o PE HTN DM CKD Morbid Obesity - f/u CT A/P reading - inhaled bronchodilators - will add pulmicort nebs to try to avoid systemic steroids - O2 to keep SpO2 >90% - monitor H/H - continue anticoagulation
[2018-01-12] MEDS: TIOTROPIUM BROMIDE 18 MCG CAPSULES IH SCH (10:43)
[2018-01-12] MEDS: CHOLECALCIFEROL (VITAMIN D3) 1,000 UNIT TABLET (FP) PO SCH (10:45)
[2018-01-12] MEDS: ACETAMINOPHEN 325 MG TABLET (FP) PO SCH ×2 (10:45→22:38)
[2018-01-12] MEDS: POLYETHYLENE GLYCOL 3350 119 GM BTL PO SCH (10:47)
[2018-01-12] MEDS: BUDESONIDE 0.5 MG/2 ML INH SUSP VIAL NEB SCH ×2 (10:55→21:50)
[2018-01-12] MEDS ORDERED: BUDESONIDE 0.25 MG/2ML INH SUSP VIAL NEB ONE ×2 (11:10→21:55)
[2018-01-12] MEDS: ALBUTEROL SO4 0.083% IH SOL 2.5 MG/3 ML VIAL.NEB. NEB SCH ×3 (11:39→21:30)
[2018-01-12] MEDS: ROSUVASTATIN CA 10 MG TABLET (FP) PO SCH ×2 (12:13→22:39)
[2018-01-12] MEDS: BUDESONIDE/FORMETEROL FUMARATE 160/4.5 mcg INHALER IH SCH (12:13)
--- NOTE | 2018-01-12 13:29 | PN ---
Progress Note, Physician History of Present Illness: patient says she does not feel too well but currently no issues with breathing - Current Medication List Current Medications: Active Medications Acetaminophen (Tylenol -) 650 mg PO BID [facility] Last Admin: 01/12/18 10:45 Dose: Not Given Albuterol Sulfate (Ventolin 0.083% Nebulizer Soln -) 1 amp NEB Q4H PRN PRN Reason: SHORT OF BREATH/WHEEZING Last Admin: 01/12/18 08:53 Dose: 1 amp Albuterol Sulfate (Ventolin 0.083% Nebulizer Soln -) 1 amp NEB RQID [facility] Last Admin: 01/12/18 11:39 Dose: 1 amp Budesonide (Pulmicort 0.5 Mg Nebulizer -) 1 amp NEB RBID [facility] Last Admin: 01/12/18 10:55 Dose: 1 amp Cholecalciferol (Vitamin D3 -) 2,000 unit PO DAILY [facility] Last Admin: 01/12/18 10:45 Dose: 2,000 unit Furosemide (Lasix -) 40 mg PO DAILY [facility] Last Admin: 01/12/18 10:47 Dose: Not Given Insulin Detemir (Levemir Vial) 10 units SQ ACBK [facility] Last Admin: 01/12/18 06:54 Dose: Not Given Meclizine HCl (Antivert -) 12.5 mg PO Q12H PRN PRN Reason: VERTIGO Non-Formulary Medication (Cyclosporine [Restasis]) 1 each OU BID [facility] Polyethylene Glycol (Miralax (For Daily Use) -) 17 gm PO DAILY [facility] Last Admin: 01/12/18 10:47 Dose: Not Given Rosuvastatin Calcium (Crestor -) 10 mg PO HS [facility] Tiotropium [place] (Spiriva -) 1 puff IH DAILY [facility] Last Admin: 01/12/18 10:43 Dose: 1 puff Warfarin Sodium (Coumadin -) 2 mg PO DAILY@1800 [facility] Last Admin: 01/11/18 19:20 Dose: 2 mg - Objective Vital Signs: Vital Signs Temperature 98.9 F 01/12/18 10:22 Pulse Rate 109 H 01/12/18 10:22 Respiratory Rate 18 01/12/18 10:22 Blood Pressure 103/49 01/12/18 10:22 O2 Sat by Pulse Oximetry (%) 98 01/11/18 21:00 Constitutional: Yes: No Distress, Calm Neck: Yes: Supple Cardiovascular: Yes: S1, S2 Respiratory: Yes: Regular, CTA Bilaterally, On Nasal O2 Gastrointestinal: Yes: Normal Bowel Sounds, Soft Musculoskeletal: Yes: WNL Extremities: Yes: WNL Neurological: Yes: Alert, Oriented Psychiatric: Yes: Alert, Oriented Labs: CBC, BMP 01/12/18 05:30 01/12/18 05:30 INR, PTT INR 1.68 (0.82-1.09) H 01/12/18 05:30 Assessment/Plan - Problems (1) Acute on chronic diastolic (congestive) heart failure Code(s): I50.33 - ACUTE ON CHRONIC DIASTOLIC (CONGESTIVE) HEART FAILURE (2) Anemia Code(s): D64.9 - ANEMIA, UNSPECIFIED Qualifiers: Anemia type: unspecified type Qualified Code(s): D64.9 - Anemia, unspecified (3) [facility] current use of anticoagulant Code(s): 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 OF 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 (4) Acute exacerbation of chronic bronchitis Code(s): J20.9 - ACUTE BRONCHITIS, UNSPECIFIED; J42 - UNSPECIFIED CHRONIC BRONCHITIS (5) CKD (chronic kidney disease) Code(s): N18.9 - CHRONIC KIDNEY DISEASE, UNSPECIFIED (6) COPD (chronic obstructive pulmonary disease) Code(s): J44.9 - CHRONIC OBSTRUCTIVE PULMONARY DISEASE, UNSPECIFIED (7) Sleep apnea Code(s): G47.30 - SLEEP APNEA, UNSPECIFIED (8) Diabetes Code(s): E11.9 - TYPE 2 DIABETES MELLITUS WITHOUT COMPLICATIONS (9) Morbid obesity Code(s): E66.01 - MORBID (SEVERE) OBESITY DUE TO EXCESS CALORIES (10) Pulmonary embolus Code(s): I26.99 - OTHER PULMONARY EMBOLISM WITHOUT ACUTE COR PULMONALE (11) Pulmonary hypertension Code(s): I27.2 - OTHER SECONDARY PULMONARY HYPERTENSION * DO NOT USE * (12) Stroke Code(s): I63.9 - CEREBRAL INFARCTION, UNSPECIFIED (13) HLD (hyperlipidemia) Code(s): E78.5 - HYPERLIPIDEMIA, UNSPECIFIED (14) Warfarin overdosage Code(s): T45.511A - POISONING BY 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, ACCIDENTAL, INIT leukocytosis plan continue current mgmt wbc marginally up will watch wbc tomorrow if increasing will start abx incentive schuyler
--- NOTE | 2018-01-12 15:58 | PN ---
Progress Note (short form) - Note Progress Note: Patient seen and examined. Feels well when compared to the other days as per. O/E Morbid obseity On O2. HEENT: [place], EOM Intact Cor: RSR, No murmurs, No gallops Lungs: Clear to P&A.scattered rhonchi Abd: Soft, Normal bowel sounds, No organomegaly Ext:chronic edema Last Vital Signs Temp Pulse Resp BP Pulse Ox 98.8 F 114 H 18 92/54 98 01/12/18 15:02 01/12/18 15:02 01/12/18 15:02 01/12/18 15:02 01/11/18 21:00 CBC, BMP 01/12/18 05:30 01/12/18 05:30 Current Medications Generic Name Dose Route Start Last Admin Trade Name Freq PRN Reason Stop Dose Admin Acetaminophen 650 mg 01/09/18 10:00 01/12/18 10:45 Tylenol - PO Not Given BID [facility] Albuterol Sulfate 1 amp 01/11/18 12:50 01/12/18 08:53 Ventolin 0.083% Nebulizer Soln - NEB 1 amp Q4H PRN Administration SHORT OF BREATH/WHEEZING Albuterol Sulfate 1 amp 01/12/18 12:00 01/12/18 11:39 Ventolin 0.083% Nebulizer Soln - NEB 1 amp RQID [facility] Administration Budesonide 1 amp 01/12/18 10:20 01/12/18 10:55 Pulmicort 0.5 Mg Nebulizer - NEB 1 amp RBID [facility] Administration Cholecalciferol 2,000 unit 01/09/18 10:00 01/12/18 10:45 Vitamin D3 - PO 2,000 unit DAILY [facility] Administration Furosemide 40 mg 01/12/18 10:00 01/12/18 10:47 Lasix - PO Not Given DAILY [facility] Insulin Detemir 10 units 01/09/18 07:00 01/12/18 06:54 Levemir Vial SQ Not Given ACBK [facility] Meclizine HCl 12.5 mg 01/09/18 03:10 Antivert - PO Q12H PRN [facility]O Non-Formulary Medication 1 each 01/09/18 10:00 Cyclosporine [Restasis] OU BID [facility] Non-Formulary Med( 2 each 01/12/18 22:00 Tylenol 650mg Er) PO BID [facility] Polyethylene Glycol 17 gm 01/09/18 10:00 01/12/18 10:47 Miralax (For Daily Use) - PO Not Given DAILY [facility] Rosuvastatin Calcium 10 mg 01/12/18 10:56 Crestor - PO HS [facility] Tiotropium [place] 1 puff 01/09/18 10:00 01/12/18 10:43 Spiriva - IH 1 puff DAILY [facility] Administration Warfarin Sodium 2 mg 01/11/18 19:00 01/11/18 19:20 Coumadin - PO 2 mg DAILY@1800 [facility] Administration anemia ( h/o B-thal ) Leucocytosis PE (h/o) End stage COPD pAfib dCHF h/o CVA Pulmonary HTN ( 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 r/b to be assessed given her Hgb -COPD/dCHF as per Pulm and Cardiology
[2018-01-12] MEDS ORDERED: ACETAMINOPHEN 325 MG TABLET (FP) PO PRN (16:20)
[2018-01-12] MEDS ORDERED: IRON SUCROSE INJECTION 100 MG in SODIUM CHLORIDE 95 ML IVPB ONE (16:30)
[2018-01-12] MEDS ORDERED: PT OWN MED DRAWER 7, Y5N ONE (17:16)
[2018-01-12] MEDS: WARFARIN NA 2 MG TABLET (UD) PO SCH (18:16)
--- NOTE | 2018-01-12 23:39 | PN ---
Progress Note, Physician History of Present Illness: Pt complains of pain to b/l feet - Current Medication List Current Medications: Active Medications Acetaminophen (Tylenol -) 650 mg PO BID [facility] Last Admin: 01/12/18 22:38 Dose: 650 mg Acetaminophen (Tylenol -) 650 mg PO Q6H PRN PRN Reason: PAIN LEVEL 7 - 10 Albuterol Sulfate (Ventolin 0.083% Nebulizer Soln -) 1 amp NEB Q4H PRN PRN Reason: SHORT OF BREATH/WHEEZING Last Admin: 01/12/18 08:53 Dose: 1 amp Albuterol Sulfate (Ventolin 0.083% Nebulizer Soln -) 1 amp NEB RQID [facility] Last Admin: 01/12/18 21:30 Dose: 1 amp Budesonide (Pulmicort 0.5 Mg Nebulizer -) 1 amp NEB RBID [facility] Last Admin: 01/12/18 21:50 Dose: 1 amp Cholecalciferol (Vitamin D3 -) 2,000 unit PO DAILY [facility] Last Admin: 01/12/18 10:45 Dose: 2,000 unit Furosemide (Lasix -) 40 mg PO DAILY [facility] Last Admin: 01/12/18 10:47 Dose: Not Given Insulin Detemir (Levemir Vial) 10 units SQ ACBK [facility] Last Admin: 01/12/18 06:54 Dose: Not Given Meclizine HCl (Antivert -) 12.5 mg PO Q12H PRN PRN Reason: VERTIGO Non-Formulary Medication (Cyclosporine [Restasis]) 1 each OU BID [facility] Non-Formulary Med( (Tylenol 650mg Er)) 2 each PO BID [facility] Polyethylene Glycol (Miralax (For Daily Use) -) 17 gm PO DAILY [facility] Last Admin: 01/12/18 10:47 Dose: Not Given Rosuvastatin Calcium (Crestor -) 10 mg PO HS [facility] Last Admin: 01/12/18 22:39 Dose: 10 mg Tiotropium [place] (Spiriva -) 1 puff IH DAILY [facility] Last Admin: 01/12/18 10:43 Dose: 1 puff Warfarin Sodium (Coumadin -) 2 mg PO DAILY@1800 [facility] Last Admin: 01/12/18 18:16 Dose: 2 mg - Objective Vital Signs: Vital Signs Temperature 97.7 F 01/12/18 17:00 Pulse Rate 117 H 01/12/18 17:00 Respiratory Rate 20 01/12/18 17:00 Blood Pressure 101/50 01/12/18 17:00 O2 Sat by Pulse Oximetry (%) 98 01/11/18 21:00 HENT: Yes: WNL Neck: Yes: WNL, Supple Cardiovascular: Yes: WNL, Regular Rate and Rhythm Respiratory: Yes: WNL, Regular, CTA Bilaterally Gastrointestinal: Yes: WNL, Normal Bowel Sounds, Soft Edema: LLE: 1+, RLE: 1+ Labs: CBC, BMP 01/12/18 05:30 01/12/18 05:30 INR, PTT INR 1.68 (0.82-1.09) H 01/12/18 05:30 Problem List - Problems (1) Abdominal pain Code(s): R10.9 - UNSPECIFIED ABDOMINAL PAIN (2) Fever Code(s): R50.9 - FEVER, UNSPECIFIED (3) Anemia Code(s): D64.9 - ANEMIA, UNSPECIFIED (4) History of pulmonary embolism Code(s): Z86.711 - PERSONAL HISTORY OF PULMONARY EMBOLISM (5) Chronic diastolic (congestive) heart failure Code(s): I50.32 - CHRONIC DIASTOLIC (CONGESTIVE) HEART FAILURE (6) COPD (chronic obstructive pulmonary disease) Code(s): J44.9 - CHRONIC OBSTRUCTIVE PULMONARY DISEASE, UNSPECIFIED (7) DVT (deep venous thrombosis) Code(s): I82.409 - ACUTE EMBOLISM AND THOMBOS UNSP DEEP VN UNSP LOWER EXTREMITY (8) GERD (gastroesophageal reflux disease) Code(s): K21.9 - GASTRO-ESOPHAGEAL REFLUX DISEASE WITHOUT ESOPHAGITIS (9) HLD (hyperlipidemia) Code(s): E78.5 - HYPERLIPIDEMIA, UNSPECIFIED (10) Hypertension Code(s): I10 - ESSENTIAL (PRIMARY) HYPERTENSION (11) Morbid obesity Code(s): E66.01 - MORBID (SEVERE) OBESITY DUE TO EXCESS CALORIES
[2018-01-13] MEDS: INSULIN DETEMIR 100 UNITS/ML MDV SQ SCH (06:26)
[2018-01-13] MEDS: ALBUTEROL SO4 0.083% IH SOL 2.5 MG/3 ML VIAL.NEB. NEB SCH ×4 (07:20→20:43)
--- NOTE | 2018-01-13 09:05 | PN ---
Progress Note, Physician Chief Complaint: alert and oriented History of Present Illness: no distress BP is running low - Current Medication List Current Medications: Active Medications Acetaminophen (Tylenol -) 650 mg PO BID [facility] Last Admin: 01/12/18 22:38 Dose: 650 mg Acetaminophen (Tylenol -) 650 mg PO Q6H PRN PRN Reason: PAIN LEVEL 7 - 10 Albuterol Sulfate (Ventolin 0.083% Nebulizer Soln -) 1 amp NEB Q4H PRN PRN Reason: SHORT OF BREATH/WHEEZING Last Admin: 01/12/18 08:53 Dose: 1 amp Albuterol Sulfate (Ventolin 0.083% Nebulizer Soln -) 1 amp NEB RQID [facility] Last Admin: 01/12/18 21:30 Dose: 1 amp Budesonide (Pulmicort 0.5 Mg Nebulizer -) 1 amp NEB RBID [facility] Last Admin: 01/12/18 21:50 Dose: 1 amp Cholecalciferol (Vitamin D3 -) 2,000 unit PO DAILY [facility] Last Admin: 01/12/18 10:45 Dose: 2,000 unit Furosemide (Lasix -) 40 mg PO DAILY [facility] Last Admin: 01/12/18 10:47 Dose: Not Given Insulin Detemir (Levemir Vial) 10 units SQ ACBK [facility] Last Admin: 01/13/18 06:26 Dose: Not Given Meclizine HCl (Antivert -) 12.5 mg PO Q12H PRN PRN Reason: VERTIGO Non-Formulary Medication (Cyclosporine [Restasis]) 1 each OU BID [facility] Non-Formulary Med( (Tylenol 650mg Er)) 2 each PO BID [facility] Polyethylene Glycol (Miralax (For Daily Use) -) 17 gm PO DAILY [facility] Last Admin: 01/12/18 10:47 Dose: Not Given Rosuvastatin Calcium (Crestor -) 10 mg PO HS [facility] Last Admin: 01/12/18 22:39 Dose: 10 mg Tiotropium [place] (Spiriva -) 1 puff IH DAILY [facility] Last Admin: 01/12/18 10:43 Dose: 1 puff Warfarin Sodium (Coumadin -) 2 mg PO DAILY@1800 [facility] Last Admin: 01/12/18 18:16 Dose: 2 mg - Objective Vital Signs: Vital Signs Temperature 98 F 01/13/18 06:37 Pulse Rate 95 H 01/13/18 06:37 Respiratory Rate 20 01/13/18 06:37 Blood Pressure 90/50 01/13/18 06:37 O2 Sat by Pulse Oximetry (%) 98 01/11/18 21:00 Constitutional: Yes: No Distress, Calm Cardiovascular: Yes: Regular Rate and Rhythm Respiratory: Yes: CTA Bilaterally (no wheezing) Gastrointestinal: Yes: Soft, Abdomen, Obese Edema: No Neurological: Yes: Alert, Oriented ...Motor Strength: WNL Labs: CBC, BMP 01/12/18 05:30 01/12/18 05:30 INR, PTT INR 1.68 (0.82-1.09) H 01/12/18 05:30 Laboratory Tests 01/12/18 01/12/18 01/12/18 05:30 05:30 05:30 WBC 14.3 H Hgb 7.9 L Plt Count 242 INR 1.68 H Potassium 4.3 Creatinine 1.2 H Assessment/Plan IMP: Anemia Supratherapeutic INR Chronic COPD History of Pulmonary Embolism on Coumadin PAF Hypokalemia Hypomagnesemia Hypotension REC: Replete electrolytes. Coumadin on hold as INR was supratherapeutic, now back below 2, pt has been on coumadin due to h/o DVT, prior CVA, and Pafib, will need to re-evaluate the risk vs benefit depending on the source of anemia Currently volume status approximately at baseline, monitor closely with PRBC transfusions, Cont po Lasix at current dose for now, if needed can dose IV Lasix prn Hold BP meds today.
[2018-01-13] MEDS: BUDESONIDE 0.5 MG/2 ML INH SUSP VIAL NEB SCH ×2 (09:32→20:42)
[2018-01-13] MEDS: POLYETHYLENE GLYCOL 3350 119 GM BTL PO SCH (10:26)
[2018-01-13] MEDS: TIOTROPIUM BROMIDE 18 MCG CAPSULES IH SCH (10:38)
[2018-01-13] MEDS: CHOLECALCIFEROL (VITAMIN D3) 1,000 UNIT TABLET (FP) PO SCH (10:39)
[2018-01-13] MEDS: ACETAMINOPHEN 325 MG TABLET (FP) PO SCH (10:39)
--- NOTE | 2018-01-13 11:05 | PN ---
Progress Note (short form) - Note Progress Note: PULMONARY Breathing, cough and wheezing improving. Last Vital Signs Temp Pulse Resp BP Pulse Ox 98 F 95 H 20 90/50 98 01/13/18 06:37 01/13/18 06:37 01/13/18 06:37 01/13/18 06:37 01/11/18 21:00 Gen: NAD at rest Heart: RRR Lung: less wheezes, rhonchi Abd: soft, obese, nontender Ext: + edema CBC, BMP 01/12/18 05:30 01/12/18 05:30 Active Medications Acetaminophen (Tylenol -) 650 mg PO BID [facility] Last Admin: 01/13/18 10:39 Dose: Not Given Acetaminophen (Tylenol -) 650 mg PO Q6H PRN PRN Reason: PAIN LEVEL 7 - 10 Albuterol Sulfate (Ventolin 0.083% Nebulizer Soln -) 1 amp NEB Q4H PRN PRN Reason: SHORT OF BREATH/WHEEZING Last Admin: 01/12/18 08:53 Dose: 1 amp Albuterol Sulfate (Ventolin 0.083% Nebulizer Soln -) 1 amp NEB RQID [facility] Last Admin: 01/13/18 07:20 Dose: 1 amp Budesonide (Pulmicort 0.5 Mg Nebulizer -) 1 amp NEB RBID [facility] Last Admin: 01/13/18 09:32 Dose: 1 amp Cholecalciferol (Vitamin D3 -) 2,000 unit PO DAILY [facility] Last Admin: 01/13/18 10:39 Dose: 2,000 unit Furosemide (Lasix -) 40 mg PO DAILY [facility] Last Admin: 01/12/18 10:47 Dose: Not Given Insulin Detemir (Levemir Vial) 10 units SQ ACBK [facility] Last Admin: 01/13/18 06:26 Dose: Not Given Meclizine HCl (Antivert -) 12.5 mg PO Q12H PRN PRN Reason: VERTIGO Non-Formulary Medication (Cyclosporine [Restasis]) 1 each OU BID [facility] Non-Formulary Med( (Tylenol 650mg Er)) 2 each PO BID [facility] Polyethylene Glycol (Miralax (For Daily Use) -) 17 gm PO DAILY [facility] Last Admin: 01/13/18 10:26 Dose: Not Given Rosuvastatin Calcium (Crestor -) 10 mg PO HS [facility] Last Admin: 01/12/18 22:39 Dose: 10 mg Tiotropium [place] (Spiriva -) 1 puff IH DAILY [facility] Last Admin: 01/13/18 10:38 Dose: 1 puff Warfarin Sodium (Coumadin -) 2 mg PO DAILY@1800 [facility] Last Admin: 01/12/18 18:16 Dose: 2 mg A/P Abdominal Pain Symptomatic Anemia Severe COPD Chronic Hypoxic Respiratory Failure LV Diastolic Dysfunction Pulmonary HTN h/o PE HTN DM CKD Morbid Obesity - inhaled bronchodilators - continue pulmicort nebs - O2 to keep SpO2 >90% - monitor H/H - continue anticoagulation
--- NOTE | 2018-01-13 11:37 | PN ---
Progress Note, Physician History of Present Illness: stable still does not feel very well breathing improving - Current Medication List Current Medications: Active Medications Acetaminophen (Tylenol -) 650 mg PO BID [facility] Last Admin: 01/13/18 10:39 Dose: Not Given Acetaminophen (Tylenol -) 650 mg PO Q6H PRN PRN Reason: PAIN LEVEL 7 - 10 Albuterol Sulfate (Ventolin 0.083% Nebulizer Soln -) 1 amp NEB Q4H PRN PRN Reason: SHORT OF BREATH/WHEEZING Last Admin: 01/12/18 08:53 Dose: 1 amp Albuterol Sulfate (Ventolin 0.083% Nebulizer Soln -) 1 amp NEB RQID [facility] Last Admin: 01/13/18 07:20 Dose: 1 amp Budesonide (Pulmicort 0.5 Mg Nebulizer -) 1 amp NEB RBID [facility] Last Admin: 01/13/18 09:32 Dose: 1 amp Cholecalciferol (Vitamin D3 -) 2,000 unit PO DAILY [facility] Last Admin: 01/13/18 10:39 Dose: 2,000 unit Furosemide (Lasix -) 40 mg PO DAILY [facility] Last Admin: 01/12/18 10:47 Dose: Not Given Insulin Detemir (Levemir Vial) 10 units SQ ACBK [facility] Last Admin: 01/13/18 06:26 Dose: Not Given Meclizine HCl (Antivert -) 12.5 mg PO Q12H PRN PRN Reason: [facility] Non-Formulary Medication (Cyclosporine [Restasis]) 1 each OU BID [facility] Non-Formulary Med( (Tylenol 650mg Er)) 2 each PO BID [facility] Polyethylene Glycol (Miralax (For Daily Use) -) 17 gm PO DAILY [facility] Last Admin: 01/13/18 10:26 Dose: Not Given Rosuvastatin Calcium (Crestor -) 10 mg PO HS [facility] Last Admin: 01/12/18 22:39 Dose: 10 mg Tiotropium [place] (Spiriva -) 1 puff IH DAILY [facility] Last Admin: 01/13/18 10:38 Dose: 1 puff Warfarin Sodium (Coumadin -) 2 mg PO DAILY@1800 [facility] Last Admin: 01/12/18 18:16 Dose: 2 mg - Objective Vital Signs: Vital Signs Temperature 98 F 01/13/18 06:37 Pulse Rate 95 H 01/13/18 06:37 Respiratory Rate 20 03/21/18 06:37 Blood Pressure 90/50 01/13/18 06:37 O2 Sat by Pulse Oximetry (%) 98 01/11/18 21:00 Constitutional: Yes: No Distress, Calm, Obese Cardiovascular: Yes: S1, S2 Respiratory: Yes: Regular, On Nasal O2, Poor Air Entry Gastrointestinal: Yes: Normal Bowel Sounds, Soft Musculoskeletal: Yes: WNL Extremities: Yes: WNL Neurological: Yes: Alert, Oriented Psychiatric: Yes: Alert, Oriented Labs: CBC, BMP 01/12/18 05:30 01/12/18 05:30 INR, PTT INR 1.68 (0.82-1.09) H 01/12/18 05:30 Assessment/Plan - Problems (1) Acute on chronic diastolic (congestive) heart failure Code(s): I50.33 - ACUTE ON CHRONIC DIASTOLIC (CONGESTIVE) HEART FAILURE (2) Anemia Code(s): D64.9 - ANEMIA, UNSPECIFIED Qualifiers: Anemia type: unspecified type Qualified Code(s): D64.9 - Anemia, unspecified (3) intermediate card tender current use of anticoagulant Code(s): Z79.01 - SCADA OPERATOR (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 OF 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 (4) Acute exacerbation of chronic bronchitis Code(s): J20.9 - ACUTE BRONCHITIS, UNSPECIFIED; J42 - UNSPECIFIED CHRONIC BRONCHITIS (5) CKD (chronic kidney disease) Code(s): N18.9 - CHRONIC KIDNEY DISEASE, UNSPECIFIED (6) COPD (chronic obstructive pulmonary disease) Code(s): J44.9 - CHRONIC OBSTRUCTIVE PULMONARY DISEASE, UNSPECIFIED (7) Sleep apnea Code(s): G47.30 - SLEEP APNEA, UNSPECIFIED (8) Diabetes Code(s): E11.9 - TYPE 2 DIABETES MELLITUS WITHOUT COMPLICATIONS (9) Morbid obesity Code(s): E66.01 - MORBID (SEVERE) OBESITY DUE TO EXCESS CALORIES (10) Pulmonary embolus Code(s): I26.99 - OTHER PULMONARY EMBOLISM WITHOUT ACUTE COR PULMONALE (11) Pulmonary hypertension Code(s): I27.2 - OTHER SECONDARY PULMONARY HYPERTENSION * DO NOT USE * (12) Stroke Code(s): I63.9 - CEREBRAL INFARCTION, UNSPECIFIED (13) HLD (hyperlipidemia) Code(s): E78.5 - HYPERLIPIDEMIA, UNSPECIFIED (14) Warfarin overdosage Code(s): T45.511A - POISONING BY 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, ACCIDENTAL, INIT leukocytosis plan continue current mgmt will send stat labs and see the cbc rest continue current mgmt patient stable
[2018-01-13 12:15] LABS: HEMATOCRIT 28.1 % (32.4-45.2); HEMOGLOBIN 8.6 GM/dL (10.7-15.3); MCH 25.1 pg (25.7-33.7); MCHC 30.5 g/dl (32.0-36.0); MEAN CELL VOLUME 82.5 fl (80-96); MEAN PLT VOLUME 8.8 fl (7.5-11.1); PLATELET COUNT 236 K/MM3 (134-434); RBC 3.41 M/mm3 (3.60-5.2); RDW 18.2 % (11.6-15.6); WHITE BLOOD COUNT 12.8 K/mm3 (4.0-10.0)
[2018-01-13 12:46] LABS: ANION GAP 9 (8-16); BLOOD UREA NITROGEN 15 mg/dL (7-18); CHLORIDE 105 mmol/L (98-107); CO2 30 mmol/L (21-32); CREATININE 1.1 mg/dL (0.55-1.02); GLUCOSE,RANDOM 92 mg/dL (74-106); POTASSIUM 4.2 mmol/L (3.5-5.1); SODIUM 144 mmol/L (136-145)
[2018-01-13 12:49] LABS: INR 1.73 (0.82-1.09); PROTHROMBIN TIME (PATIENT) 19.6 SEC (9.98-11.88)
--- NOTE | 2018-01-13 15:45 | PN ---
Progress Note (short form) - Note Progress Note: Requested to see this pt by Dr Whitlock for today 01/13/18 c/o diffuse pain. typically relieved with tylenol arthritis which is 1350mg of tylenol extended release. states SOB has resolved. Denies CP, SOB, fever, chills , cough, N/V/C/D. had 2 BM today Current Medications Generic Name Dose Route Start Last Admin Trade Name Freq PRN Reason Stop Dose Admin Acetaminophen 650 mg 01/09/18 10:00 01/13/18 10:39 Tylenol - PO Not Given BID SAIMA Acetaminophen 650 mg 01/12/18 16:20 Tylenol - PO Q6H PRN PAIN LEVEL 7 - 10 Albuterol Sulfate 1 amp 01/11/18 12:50 01/12/18 08:53 Ventolin 0.083% Nebulizer Soln - NEB 1 amp Q4H PRN Administration SHORT OF BREATH/WHEEZING Albuterol Sulfate 1 amp 01/12/18 12:00 01/13/18 12:25 Ventolin 0.083% Nebulizer Soln - NEB 1 amp RQID SAIMA Administration Budesonide 1 amp 01/12/18 10:20 01/13/18 09:32 Pulmicort 0.5 Mg Nebulizer - NEB 1 amp RBID SAIMA Administration Cholecalciferol 2,000 unit 01/09/18 10:00 01/13/18 10:39 Vitamin D3 - PO 2,000 unit DAILY SAIMA Administration Furosemide 40 mg 01/12/18 10:00 01/12/18 10:47 Lasix - PO Not Given DAILY SAIMA Insulin Detemir 10 units 01/09/18 07:00 01/13/18 06:26 Levemir Vial SQ Not Given ACBK [facility] Meclizine HCl 12.5 mg 01/09/18 03:10 Antivert - PO Q12H PRN VERTIGO Non-Formulary Medication 1 each 01/09/18 10:00 Cyclosporine [Restasis] OU BID SAIMA Non-Formulary Med( 2 each 01/12/18 22:00 Tylenol 650mg Er) PO BID SAIMA Polyethylene Glycol 17 gm 01/09/18 10:00 01/13/18 10:26 Miralax (For Daily Use) - PO Not Given DAILY [facility] Rosuvastatin Calcium 10 mg 01/12/18 10:56 01/12/18 22:39 Crestor - PO 10 mg HS SAIMA Administration Tiotropium [place] 1 puff 01/09/18 10:00 01/13/18 10:38 Spiriva - IH 1 puff DAILY SAIMA Administration Warfarin Sodium 2 mg 01/11/18 19:00 01/12/18 18:16 Coumadin - PO 2 mg DAILY@1800 SAIMA Administration Last Vital Signs Temp Pulse Resp BP Pulse Ox 98.9 F 100 H 18 118/55 98 01/13/18 14:48 01/13/18 14:48 01/13/18 14:48 01/13/18 14:48 01/11/18 21:00 General NAD CV S1 S2 + Lungs CTA B/L poor inspiratory effort Abdomen soft NT/ND obese Extremities no pedal edema CBCD WBC 12.8 K/mm3 (4.0-10.0) H 01/13/18 11:57 RBC 3.41 M/mm3 (3.60-5.2) L 01/13/18 11:57 Hgb 8.6 GM/dL (10.7-15.3) L 01/13/18 11:57 Hct 28.1 % (32.4-45.2) L 01/13/18 11:57 MCV 82.5 fl (80-96) 01/13/18 11:57 MCHC 30.5 g/dl (32.0-36.0) L 01/13/18 11:57 RDW 18.2 % (11.6-15.6) H 01/13/18 11:57 Plt Count 236 K/MM3 (134-434) 01/13/18 11:57 MPV 8.8 fl (7.5-11.1) 01/13/18 11:57 CMP Sodium 144 mmol/L (136-145) 01/13/18 11:57 Potassium 4.2 mmol/L (3.5-5.1) 01/13/18 11:57 Chloride 105 mmol/L (98-107) 01/13/18 11:57 Carbon Dioxide 30 mmol/L (21-32) 01/13/18 11:57 Anion Gap 9 (8-16) 01/13/18 11:57 BUN 15 mg/dL (7-18) 01/13/18 11:57 Creatinine 1.1 mg/dL (0.55-1.02) H 01/13/18 11:57 Creat Clearance w eGFR 44.54 (>60) 01/12/18 05:30 Calcium 8.0 mg/dL (8.5-10.1) L 01/13/18 11:57 Total Bilirubin 0.5 mg/dL (0.2-1.0) D 01/12/18 05:30 AST 14 U/L (15-37) L 01/12/18 05:30 ALT 13 U/L (12-78) 01/12/18 05:30 Alkaline Phosphatase 44 U/L (45-117) L 01/12/18 05:30 Total Protein 4.6 g/dl (6.4-8.2) L 01/12/18 05:30 Albumin 2.1 g/dl (3.4-5.0) L 01/12/18 05:30 Microbiology 01/10/18 16:30 Urine - Urine Clean Catch Urine Culture - Preliminary Klebsiella Pneumoniae Group D Strep Or Entero Coccus 01/10/18 16:30 Blood - Peripheral Venous Blood Culture - Preliminary NO GROWTH OBTAINED AFTER 48 HOURS, INCUBATION TO CONTINUE FOR 3 DAYS. 01/10/18 16:30 Blood - Peripheral Venous Blood Culture - Preliminary NO GROWTH OBTAINED AFTER 48 HOURS, INCUBATION TO CONTINUE FOR 3 DAYS. A/P 67 year old black female with a past medical history of diastolic CHF (ECHO of 2017 was limited; valves could not be assessed), COPD (on 3 L NC @ baseline), hyperlipidemia, PE, CVA (w/residual L sided visual loss), IDDM, morbid obesity with ?sleep apnea, who was BIBA from [facility] for revisit secondary to abnormal labs and wheezing for 2 days. 1. Symptomatic anemia- s/p 2 units PRBC with good response. also received Venofer IV yesterday. refusing colonoscopy as she has had 3 in the past and claims she does not need it. 2. Arthritis pain- requesting her tylenol arthritis as its the only medication that alleviates her pain. will order 1350mg prn. will bring in home medication 3. PE on coumadin- seems like INR has been hard to control. was supratherapeutic INR and now subtherapeutic INR. started on coumadin 2 days ago. will cont 2mg for now if INR still low tomorrow would consider increasing dose 4. +UA- pt is not symptomatic. had mild leukocytosis but no fevers and ID decided not to treat. will hold abx at this time 5. Hyperglycemia- pt A1c 6. has been refusing levemir since shes been here and sugars been controlled. will d/c for now. 6. AMAURY- likely dehydration. now resolved. lasix been on hold. will let PMD decide to re-start if needed 7. DVT ppx- SCD. holding pharmacologic anticoagulation due to symptomatic anemia and supratherapeutic INR. Hgb is now stable and INR is subtherapeutic. would re-start hep sq at this time at minimum due to multiple risk factors 8. Morbid obesity- BMI 46 9. will need return to [facility] once medically optimized as unable to ambulate and been bed bound 10. Dr Whitlock to resume care tomorrow Visit type - Emergency Visit Emergency Visit: Yes ED Registration Date: 01/08/18 Care time: The patient presented to the Emergency Department on the above date and was hospitalized for further evaluation of their emergent condition. - New Patient This patient is new to me today: Yes Date on this admission: 01/13/18 - Critical Care Critical Care patient: No - Discharge Referral Referred to [facility] Med P.C.: No
[2018-01-13] MEDS ORDERED: ACETAMINOPHEN 500 MG TABLET (FP) PO PRN ×3 (16:43→17:14)
[2018-01-13] MEDS ORDERED: ACETAMINOPHEN 325 MG TABLET (FP) PO PRN (17:15)
[2018-01-13] MEDS: TYLENOL 650 MG PO SCH (17:26)
[2018-01-13] MEDS: WARFARIN NA 2 MG TABLET (UD) PO SCH (17:46)
[2018-01-13] MEDS: ROSUVASTATIN CA 10 MG TABLET (FP) PO SCH (23:12)
[2018-01-13] MEDS: HEPARIN NA (PORCINE) 5,000 UNITS/ML 1ML VIAL SQ SCH (23:12)
[2018-01-14 07:06] LABS: BASO % 0.7 % (0-2.0); EOS % 0.3 % (0-4.5); HEMATOCRIT 27.4 % (32.4-45.2); HEMOGLOBIN 8.3 GM/dL (10.7-15.3); LYMPH % 16.4 % (8-40); MCH 25.1 pg (25.7-33.7); MCHC 30.3 g/dl (32.0-36.0); MEAN PLT VOLUME 8.8 fl (7.5-11.1); MONO % 15.3 % (3.8-10.2); NEUT % 67.3 % (42.8-82.8); PLATELET COUNT 230 K/MM3 (134-434); RDW 18.8 % (11.6-15.6); WHITE BLOOD COUNT 12.4 K/mm3 (4.0-10.0)
[2018-01-14 07:24] LABS: CHLORIDE 104 mmol/L (98-107); POTASSIUM 4.1 mmol/L (3.5-5.1); SODIUM 143 mmol/L (136-145)
[2018-01-14 07:29] LABS: INR 2.12 (0.82-1.09); PROTHROMBIN TIME (PATIENT) 23.9 SEC (9.98-11.88)
[2018-01-14 07:31] LABS: ANION GAP 11 (8-16); BLOOD UREA NITROGEN 14 mg/dL (7-18); CALCIUM 7.7 mg/dL (8.5-10.1); CO2 28 mmol/L (21-32); CREATININE 1.2 mg/dL (0.55-1.02); GLUCOSE,RANDOM 87 mg/dL (74-106)
[2018-01-14] MEDS ORDERED: PT OWN MED DRAWER 7, Y5N ONE (08:04)
[2018-01-14] MEDS: BUDESONIDE 0.5 MG/2 ML INH SUSP VIAL NEB SCH (08:45)
[2018-01-14] MEDS: ALBUTEROL SO4 0.083% IH SOL 2.5 MG/3 ML VIAL.NEB. NEB SCH ×3 (08:45→16:00)
--- NOTE | 2018-01-14 10:17 | PN ---
Progress Note (short form) - Note Progress Note: PULMONARY Still with abdominal pain. Reports increased leg swelling. Not getting her home dose lasix. Breathing, cough and wheezing improving. Last Vital Signs Temp Pulse Resp BP Pulse Ox 97.8 F 106 H 20 105/55 97 01/14/18 06:00 01/14/18 06:00 01/14/18 06:00 01/14/18 06:00 01/13/18 21:00 Gen: NAD at rest Heart: RRR Lung: distant breath sounds, no wheezes appreciated Abd: soft, obese, nontender Ext: + edema CBC, BMP 01/14/18 05:35 01/14/18 05:35 Active Medications Acetaminophen (Tylenol -) 1,300 mg PO Q8H PRN PRN Reason: pain >6 Albuterol Sulfate (Ventolin 0.083% Nebulizer Soln -) 1 amp NEB Q4H PRN PRN Reason: SHORT OF BREATH/WHEEZING Last Admin: 01/12/18 08:53 Dose: 1 amp Albuterol Sulfate (Ventolin 0.083% Nebulizer Soln -) 1 amp NEB RQID [facility] Last Admin: 01/14/18 08:45 Dose: 1 amp Budesonide (Pulmicort 0.5 Mg Nebulizer -) 1 amp NEB RBID [facility] Last Admin: 01/14/18 08:45 Dose: 1 amp Cholecalciferol (Vitamin D3 -) 2,000 unit PO DAILY [facility] Last Admin: 01/13/18 10:39 Dose: 2,000 unit Furosemide (Lasix -) 40 mg PO DAILY [facility] Last Admin: 01/12/18 10:47 Dose: Not Given Heparin Sodium (Porcine) (Heparin -) 5,000 unit SQ BID [facility] Last Admin: 01/13/18 23:12 Dose: 5,000 unit Meclizine HCl (Antivert -) 12.5 mg PO Q12H PRN PRN Reason: VERTIGO Non-Formulary Medication (Cyclosporine [Restasis]) 1 each OU BID [facility] Polyethylene Glycol (Miralax (For Daily Use) -) 17 gm PO DAILY [facility] Last Admin: 01/13/18 10:26 Dose: Not Given Rosuvastatin Calcium (Crestor -) 10 mg PO HS [facility] Last Admin: 01/13/18 23:12 Dose: 10 mg Tiotropium [place] (Spiriva -) 1 puff IH DAILY [facility] Last Admin: 01/13/18 10:38 Dose: 1 puff Warfarin Sodium (Coumadin -) 2 mg PO DAILY@1800 [facility] Last Admin: 01/13/18 17:46 Dose: 2 mg A/P Abdominal Pain Symptomatic Anemia Severe COPD Chronic Hypoxic Respiratory Failure LV Diastolic Dysfunction Pulmonary HTN h/o PE HTN DM CKD Morbid Obesity - inhaled bronchodilators - continue pulmicort nebs - O2 to keep SpO2 >90% - monitor H/H - continue anticoagulation - will resume her home lasix 20mg BID
[2018-01-14] MEDS: POLYETHYLENE GLYCOL 3350 119 GM BTL PO SCH (11:39)
[2018-01-14] MEDS: CHOLECALCIFEROL (VITAMIN D3) 1,000 UNIT TABLET (FP) PO SCH (11:39)
[2018-01-14] MEDS: HEPARIN NA (PORCINE) 5,000 UNITS/ML 1ML VIAL SQ SCH (11:40)
[2018-01-14] MEDS: TIOTROPIUM BROMIDE 18 MCG CAPSULES IH SCH (11:40)
--- NOTE | 2018-01-14 11:55 | PN ---
Progress Note (short form) - Note Progress Note: Patient seen and examined. c/o "pins/needles" sensation in the bilateral LE Otherwise she feels OK. O/E Morbid obseity On O2. HEENT: [place], EOM Intact Cor: RSR, No murmurs, No gallops Lungs: Clear to P&A.scattered rhonchi Abd: Soft, Normal bowel sounds, No organomegaly Ext:chronic edema Last Vital Signs Temp Pulse Resp BP Pulse Ox 97.8 F 106 H 20 105/55 97 01/14/18 06:00 01/14/18 06:00 01/14/18 06:00 01/14/18 06:00 01/13/18 21:00 CBC, BMP 01/14/18 05:35 01/14/18 05:35 Current Medications Generic Name Dose Route Start Last Admin Trade Name Freq PRN Reason Stop Dose Admin Acetaminophen 1,300 mg 01/13/18 17:15 Tylenol - PO Q8H PRN pain >6 Albuterol Sulfate 1 amp 01/11/18 12:50 01/12/18 08:53 Ventolin 0.083% Nebulizer Soln - NEB 1 amp Q4H PRN Administration SHORT OF BREATH/WHEEZING Albuterol Sulfate 1 amp 01/12/18 12:00 01/14/18 11:43 Ventolin 0.083% Nebulizer Soln - NEB 1 amp RQID SAIMA Administration Budesonide 1 amp 01/12/18 10:20 01/14/18 08:45 Pulmicort 0.5 Mg Nebulizer - NEB 1 amp RBID SAIMA Administration Cholecalciferol 2,000 unit 01/09/18 10:00 01/14/18 11:39 Vitamin D3 - PO 2,000 unit DAILY SAIMA Administration Furosemide 20 mg 01/14/18 14:00 Lasix - PO BID@0600,1400 SAIMA Heparin Sodium (Porcine) 5,000 unit 01/13/18 22:00 01/14/18 11:40 Heparin - SQ 5,000 unit BID SAIMA Administration Meclizine HCl 12.5 mg 01/09/18 03:10 Antivert - PO Q12H PRN VERTIGO Non-Formulary Medication 1 each 01/09/18 10:00 Cyclosporine [Restasis] OU BID SAIMA Polyethylene Glycol 17 gm 01/09/18 10:00 01/14/18 11:39 Miralax (For Daily Use) - PO Not Given DAILY SAIMA Rosuvastatin Calcium 10 mg 01/12/18 10:56 01/13/18 23:12 Crestor - PO 10 mg HS SAIMA Administration Tiotropium [place] 1 puff 01/09/18 10:00 01/14/18 11:40 Spiriva - IH 1 puff DAILY SAIMA Administration Warfarin Sodium 2 mg 01/11/18 19:00 01/13/18 17:46 Coumadin - PO 2 mg DAILY@1800 SAIMA Administration anemia ( h/o B-thal ) Leucocytosis PE (h/o) End stage COPD pAfib dCHF h/o CVA Pulmonary HTN ( Likely a component of chronic thromboembolic pulmonary hypertension CTEPH?) Morbid obesity hgb stable s/p venofer on systemic AC ?Peripheral Neuropathy rest per primary.
[2018-01-14] MEDS ORDERED: PIPERACILLIN/TAZOB 3.375 GM 50 ML IVPB SCH (12:00)
--- NOTE | 2018-01-14 12:02 | PN ---
Progress Note, Physician History of Present Illness: increased difficulty breathing says she does feel feverish still not feeling well wbc still on the higher side - Current Medication List Current Medications: Active Medications Acetaminophen (Tylenol -) 1,300 mg PO Q8H PRN PRN Reason: pain >6 Albuterol Sulfate (Ventolin 0.083% Nebulizer Soln -) 1 amp NEB Q4H PRN PRN Reason: SHORT OF BREATH/WHEEZING Last Admin: 01/12/18 08:53 Dose: 1 amp Albuterol Sulfate (Ventolin 0.083% Nebulizer Soln -) 1 amp NEB RQID [facility] Last Admin: 01/14/18 11:43 Dose: 1 amp Budesonide (Pulmicort 0.5 Mg Nebulizer -) 1 amp NEB RBID [facility] Last Admin: 01/14/18 08:45 Dose: 1 amp Cholecalciferol (Vitamin D3 -) 2,000 unit PO DAILY [facility] Last Admin: 01/14/18 11:39 Dose: 2,000 unit Furosemide (Lasix -) 20 mg PO BID@0600,1400 [facility] Heparin Sodium (Porcine) (Heparin -) 5,000 unit SQ BID [facility] Last Admin: 01/14/18 11:40 Dose: 5,000 unit Piperacillin/Tazobactam/Dextrose (Zosyn 3.375gm Ivpb (Premix)) 50 mls @ 100 mls /hr IVPB Q8H-IV SAIMA PRN Reason: Protocol Meclizine HCl (Antivert -) 12.5 mg PO Q12H PRN PRN Reason: VERTIGO Non-Formulary Medication (Cyclosporine [Restasis]) 1 each OU BID [facility] Polyethylene Glycol (Miralax (For Daily Use) -) 17 gm PO DAILY [facility] Last Admin: 01/14/18 11:39 Dose: Not Given Rosuvastatin Calcium (Crestor -) 10 mg PO HS [facility] Last Admin: 01/13/18 23:12 Dose: 10 mg Tiotropium [place] (Spiriva -) 1 puff IH DAILY [facility] Last Admin: 01/14/18 11:40 Dose: 1 puff Warfarin Sodium (Coumadin -) 2 mg PO DAILY@1800 [facility] Last Admin: 01/13/18 17:46 Dose: 2 mg - Objective Vital Signs: Vital Signs Temperature 97.8 F 01/14/18 06:00 Pulse Rate 106 H 01/14/18 06:00 Respiratory Rate 20 01/14/18 06:00 Blood Pressure 105/55 01/14/18 06:00 O2 Sat by Pulse Oximetry (%) 97 01/13/18 21:00 Constitutional: Yes: Calm, Mild Distress, Obese Cardiovascular: Yes: S1, S2 Respiratory: Yes: On Nasal O2, Poor Air Entry, Rhonchi Gastrointestinal: Yes: Normal Bowel Sounds, Soft Musculoskeletal: Yes: Other Extremities: Yes: Other Edema: LLE: 1+, RLE: 1+ Neurological: Yes: Alert, Oriented Psychiatric: Yes: Alert, Oriented Labs: CBC, BMP 01/14/18 05:35 01/14/18 05:35 INR, PTT INR 2.12 (0.82-1.09) H 01/14/18 05:35 Assessment/Plan - Problems (1) Acute on chronic diastolic (congestive) heart failure Code(s): I50.33 - ACUTE ON CHRONIC DIASTOLIC (CONGESTIVE) HEART FAILURE (2) Anemia Code(s): D64.9 - ANEMIA, UNSPECIFIED Qualifiers: Anemia type: unspecified type Qualified Code(s): D64.9 - Anemia, unspecified (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 Code(s): Z79.01 - MANAGER WEALTH MANAGEMENT (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 OF 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 (4) Acute exacerbation of chronic bronchitis Code(s): J20.9 - ACUTE BRONCHITIS, UNSPECIFIED; J42 - UNSPECIFIED CHRONIC BRONCHITIS (5) CKD (chronic kidney disease) Code(s): N18.9 - CHRONIC KIDNEY DISEASE, UNSPECIFIED (6) COPD (chronic obstructive pulmonary disease) Code(s): J44.9 - CHRONIC OBSTRUCTIVE PULMONARY DISEASE, UNSPECIFIED (7) Sleep apnea Code(s): G47.30 - SLEEP APNEA, UNSPECIFIED (8) Diabetes Code(s): E11.9 - TYPE 2 DIABETES MELLITUS WITHOUT COMPLICATIONS (9) Morbid obesity Code(s): E66.01 - MORBID (SEVERE) OBESITY DUE TO EXCESS CALORIES (10) Pulmonary embolus Code(s): I26.99 - OTHER PULMONARY EMBOLISM WITHOUT ACUTE COR PULMONALE (11) Pulmonary hypertension Code(s): I27.2 - OTHER SECONDARY PULMONARY HYPERTENSION * DO NOT USE * (12) Stroke Code(s): I63.9 - CEREBRAL INFARCTION, UNSPECIFIED (13) HLD (hyperlipidemia) Code(s): E78.5 - HYPERLIPIDEMIA, UNSPECIFIED (14) Warfarin overdosage Code(s): T45.511A - POISONING BY 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, ACCIDENTAL, INIT leukocytosis 16 uti patient urine cx are positive for two organisms her low grade fever and leukocytosis could be very well from that plan will start augmentin will monitor for wbc rest continue current mgmt continue monitoring
--- NOTE | 2018-01-14 13:42 | PN ---
Progress Note, Physician History of Present Illness: seen and examined today in nad. no new complaints. no overnight events. - Current Medication List Current Medications: Active Medications Acetaminophen (Tylenol -) 1,300 mg PO Q8H PRN PRN Reason: pain >6 Last Admin: 01/14/18 12:25 Dose: 1,300 mg Albuterol Sulfate (Ventolin 0.083% Nebulizer Soln -) 1 amp NEB Q4H PRN PRN Reason: SHORT OF BREATH/WHEEZING Last Admin: 01/12/18 08:53 Dose: 1 amp Albuterol Sulfate (Ventolin 0.083% Nebulizer Soln -) 1 amp NEB RQID [facility] Last Admin: 01/14/18 11:43 Dose: 1 amp Amoxicillin/Clavulanate Potassium (Augmentin - 875mg Tablet) 1 tab PO BID@0800, 1730 [facility] Budesonide (Pulmicort 0.5 Mg Nebulizer -) 1 amp NEB RBID [facility] Last Admin: 01/14/18 08:45 Dose: 1 amp Cholecalciferol (Vitamin D3 -) 2,000 unit PO DAILY [facility] Last Admin: 01/14/18 11:39 Dose: 2,000 unit Furosemide (Lasix -) 20 mg PO BID@0600,1400 [facility] Heparin Sodium (Porcine) (Heparin -) 5,000 unit SQ BID [facility] Last Admin: 01/14/18 11:40 Dose: 5,000 unit Meclizine HCl (Antivert -) 12.5 mg PO Q12H PRN PRN Reason: VERTIGO Non-Formulary Medication (Cyclosporine [Restasis]) 1 each OU BID [facility] Polyethylene Glycol (Miralax (For Daily Use) -) 17 gm PO DAILY [facility] Last Admin: 01/14/18 11:39 Dose: Not Given Rosuvastatin Calcium (Crestor -) 10 mg PO HS [facility] Last Admin: 01/13/18 23:12 Dose: 10 mg Tiotropium [place] (Spiriva -) 1 puff IH DAILY [facility] Last Admin: 01/14/18 11:40 Dose: 1 puff Warfarin Sodium (Coumadin -) 2 mg PO DAILY@1800 [facility] Last Admin: 01/13/18 17:46 Dose: 2 mg - Objective Vital Signs: Vital Signs Temperature 97.8 F 01/14/18 06:00 Pulse Rate 106 H 03/22/18 06:00 Respiratory Rate 20 01/14/18 06:00 Blood Pressure 105/55 01/14/18 06:00 O2 Sat by Pulse Oximetry (%) 97 01/13/18 21:00 Constitutional: Yes: No Distress, Calm, Obese Eyes: Yes: Conjunctiva Clear, EOM Intact HENT: Yes: Atraumatic, Normocephalic Neck: Yes: Supple, Trachea Midline Cardiovascular: Yes: Regular Rate and Rhythm, S1, S2. No: Bradycardia, Tachycardia, Pulse Irregular, Bruit, JVD, Gallop, Murmur, Rub, S3, S4, Varicosities Respiratory: Yes: Regular, Diminished, On Nasal O2. No: Rales, Rhonchi, Wheezes Gastrointestinal: Yes: Normal Bowel Sounds, Soft. No: Distention, Tenderness Musculoskeletal: Yes: Muscle Weakness Edema: No Peripheral Pulses WNL: Yes Peripheral Pulses: Left Doralis Pedis: 2+, Right Dorsalis Pedis: 2+ Neurological: Yes: Alert, Oriented Psychiatric: Yes: Alert, Oriented Labs: CBC, BMP 01/14/18 05:35 01/14/18 05:35 INR, PTT INR 2.12 (0.82-1.09) H 01/14/18 05:35 - ....Imaging Chest X-ray: Report Reviewed, Image Reviewed EKG: Report Reviewed, Image Reviewed Other: Report Reviewed, Image Reviewed Assessment/Plan IMP: Anemia Supratherapeutic INR Chronic COPD History of Pulmonary Embolism on Coumadin PAF Hypokalemia Hypomagnesemia Hypotension REC: -INR therapeutic today, can likely stop Heparin SQ -Replete electrolytes as needed -pt has been on coumadin due to h/o DVT, prior CVA, and Pafib, will need to re- evaluate the risk vs benefit depending on the source of anemia -Cont po Lasix at current dose for now -BP running low normal, monitor, not currently on anti-htn meds other than po lasix
[2018-01-14] MEDS ORDERED: FUROSEMIDE 20 MG TABLET (FP) PO SCH (14:00)
[2018-01-14 15:29] VITALS: BP 130/82; PULSE 70; TEMP 98.4
[2018-01-14] MEDS ORDERED: AMOX TR/POT CLAV 875MG/125MG TABLETS (FP) PO SCH (17:30)
[2018-01-14] MEDS: WARFARIN NA 2 MG TABLET (UD) PO SCH (17:43)
--- NOTE | 2018-01-22 14:50 | DS ---
Physical Examination Vital Signs: Vital Signs Temperature 98.4 F 01/14/18 15:27 Pulse Rate 70 01/14/18 15:27 Respiratory Rate 18 01/14/18 15:27 Blood Pressure 130/82 01/14/18 15:27 O2 Sat by Pulse Oximetry (%) 97 01/13/18 21:00 Constitutional: Yes: Well Nourished Cardiovascular: Yes: WNL, Regular Rate and Rhythm Respiratory: Yes: WNL, Regular, CTA Bilaterally Gastrointestinal: Yes: WNL, Normal Bowel Sounds, Soft, Abdomen, Obese Labs: CBC, BMP 01/14/18 05:35 01/14/18 05:35 Discharge Summary Reason For Visit: ANEMIA Hypercoaguable state due to coumadin toxicity (1) Abdominal pain Code(s): R10.9 - UNSPECIFIED ABDOMINAL PAIN (2) Fever Code(s): R50.9 - FEVER, UNSPECIFIED (3) Anemia Code(s): D64.9 - ANEMIA, UNSPECIFIED (4) History of pulmonary embolism Code(s): Z86.711 - PERSONAL HISTORY OF PULMONARY EMBOLISM (5) Chronic diastolic (congestive) heart failure Code(s): I50.32 - CHRONIC DIASTOLIC (CONGESTIVE) HEART FAILURE (6) COPD (chronic obstructive pulmonary disease) Code(s): J44.9 - CHRONIC OBSTRUCTIVE PULMONARY DISEASE, UNSPECIFIED (7) DVT (deep venous thrombosis) Code(s): I82.409 - ACUTE EMBOLISM AND THOMBOS UNSP DEEP VN UNSP LOWER EXTREMITY (8) GERD (gastroesophageal reflux disease) Code(s): K21.9 - GASTRO-ESOPHAGEAL REFLUX DISEASE WITHOUT ESOPHAGITIS (9) HLD (hyperlipidemia) Code(s): E78.5 - HYPERLIPIDEMIA, UNSPECIFIED (10) Hypertension Code(s): I10 - ESSENTIAL (PRIMARY) HYPERTENSION (11) Morbid obesity Code(s): E66.01 - MORBID (SEVERE) OBESITY DUE TO EXCESS CALORIES Hospital Course: Pt is 67 y/o morbidly obese female w/ multiple medical problems who presented to the ER initially bc of symptomatic anemia and was transfused packed red blood cells. Pt also found to have supratherapeutic INR due to use of coumadin wc was initially held and restarted once pt/inr was therapeutic. Pt was also given Vit K. Pt seen by cardio/GI/heme consultations and their recommendations were noted. Pt transferred to SNF on discharge Condition: Good - Instructions Diet, Activity, Other Instructions: 2 gram sodium diet Referrals: Eliza Dangelo MD [Primary Care Provider] - [facility] - Home Medications Comprehensive Discharge Medication List: Ambulatory Orders Acetaminophen [Tylenol] 650 mg PO BID 01/08/18 Albuterol 0.083% Nebulizer [place] [Ventolin 0.083% Nebulizer Soln -] 1 neb NEB Q4H PRN 01/08/18 Albuterol 2.5/Ipratropium 0.5 [Duoneb -] 1 neb IH QID 01/08/18 Bacitracin - [Bacitracin Topical Ointment -] 1 applic TP DAILY 01/08/18 Benzocaine Ointment [Americaine Ointment -] 1 applic TP PRN PRN 01/08/18 Budesonide/Formeterol Fumarate [SYMBICORT 160/4.5mcg -] 1 inh PO BID 01/08/18 Cholecalciferol (Vitamin D3) [Vitamin D3 -] 2,000 unit PO DAILY 01/08/18 Cyclosporine [Restasis] 1 each OU BID 01/08/18 Ferrous Sulfate [Feosol] 325 mg PO TID 01/08/18 Furosemide [Lasix] 20 mg PO BID 01/08/18 Guaifenesin [Robitussin -] 15 ml PO TID 01/08/18 Insulin Glargine,Hum.rec.anlog [Lantus Solostar] 10 unit SQ DAILY 01/08/18 Meclizine HCl 12.5 mg PO BID PRN 01/08/18 Menthol/Zinc Oxide [Calmoseptine Ointment] 3.5 gm TP DAILY 01/08/18 Nifedipine ER [Procardia XL -] 30 mg PO DAILY 01/08/18 Polyethylene Glycol 3350 [Glycolax] 119 gm PO DAILY 01/08/18 Prednisone 5 mg PO DAILY 01/08/18 Prednisone 10 mg PO DAILY 01/08/18 Rosuvastatin Calcium [Crestor] 10 mg PO DAILY 01/08/18 Sennosides [Natural Laxative] 2 tab PO HS 01/08/18 Tiotropium [place] [Spiriva Respimat] 2 inh IH DAILY 01/08/18 Valsartan 160 mg PO DAILY 01/08/18 Warfarin Na [Coumadin -] 2 mg PO DAILY 01/08/18 Amox-Tr/K Cl [Augmentin 875-125mg Tablet -] 1 tab PO BID@0800,1730 tablet 01/14 Budesonide [Pulmicort 0.5 mg Nebulizer -] 1 amp NEB RBID amp 01/14/18 Furosemide [Lasix -] 40 mg PO DAILY tablet 01/14/18 Warfarin Na [Coumadin -] 2 mg PO DAILY@1800 tablet 01/14/18
== END 2018-01-14 18:15 | DRG 813 ==
LOC: JER 19:43 → JERBED 22:53 → J4W 01-09 00:28 → J8W 01-11 13:50 → JSAMEDAYSX 01-11 14:04 → J8W 01-11 14:06
PROVIDERS: ADMIT Internal Medicine; ATTEND Internal Medicine
PROC: 30233H1 Transfusion of Nonautologous Whole Blood into Peripheral Vein, Percutaneous Approach (ICD-10-PCS; principal; 2018-01-08)
DX: D68.32 Hemorrhagic disorder due to extrinsic circulating anticoagulants (principal); I13.0 Hypertensive heart and chronic kidney disease with heart failure and stage 1 through stage 4 chronic kidney disease, or unspecified chronic kidney disease; I50.32 Chronic diastolic (congestive) heart failure; J96.10 Chronic respiratory failure, unspecified whether with hypoxia or hypercapnia; Z68.42 Body mass index [BMI] 45.0-49.9, adult; N17.9 Acute kidney failure, unspecified; D64.9 Anemia, unspecified; D68.8 Other specified coagulation defects; E11.22 Type 2 diabetes mellitus with diabetic chronic kidney disease; E11.65 Type 2 diabetes mellitus with hyperglycemia; E66.01 Morbid (severe) obesity due to excess calories; D56.3 Thalassemia minor; I27.20 Pulmonary hypertension, unspecified; N18.9 Chronic kidney disease, unspecified; E87.6 Hypokalemia; E83.42 Hypomagnesemia; I48.0 Paroxysmal atrial fibrillation; I95.9 Hypotension, unspecified; Z86.73 Personal history of transient ischemic attack (TIA), and cerebral infarction without residual deficits; J44.9 Chronic obstructive pulmonary disease, unspecified; Z86.711 Personal history of pulmonary embolism; Z99.81 Dependence on supplemental oxygen; Z79.4 Long term (current) use of insulin; E78.5 Hyperlipidemia, unspecified; G47.30 Sleep apnea, unspecified; H54.62 Unqualified visual loss, left eye, normal vision right eye; Z87.891 Personal history of nicotine dependence; G62.9 Polyneuropathy, unspecified
CPT/HCPCS: 36415; 36430; 71045-TC-FY; 74176-TC; 80048; 80053; 80061; 81003; 81015; 82728; 82962; 83010; 83540; 83550; 83615; 83721; 83880; 84443; 84466; 85025; 85027; 85044; 85610; 86850; 86900; 86901; 86922; 87040; 87086; 87186; 93005; 93010; 94640; 99284-25; J1644; J1756; P9038; P9058

== ENCOUNTER 2018-08-31 12:59 | Inpatient (IN) | payer OTHER ==
[2018-08-31 13:29] VITALS: BMI 52.0
[2018-08-31 14:20] LABS: BASO % 0.7 % (0-2.0); EOS % 0.3 % (0-4.5); HEMATOCRIT 23.2 % (32.4-45.2); LYMPH % 5.6 % (8-40); MCH 24.5 pg (25.7-33.7); MCHC 29.4 g/dl (32.0-36.0); MEAN CELL VOLUME 83.1 fl (80-96); MEAN PLT VOLUME 8.7 fl (7.5-11.1); MONO % 7.7 % (3.8-10.2); NEUT % 85.7 % (42.8-82.8); PLATELET COUNT 266 K/MM3 (134-434); RBC 2.79 M/mm3 (3.60-5.2); RDW 16.1 % (11.6-15.6); WHITE BLOOD COUNT 15.9 K/mm3 (4.0-10.0)
[2018-08-31 14:23] LABS: HEMOGLOBIN 6.8 GM/dL (10.7-15.3)
--- NOTE | 2018-08-31 14:27 | PDOC ---
History of Present Illness - History of Present Illness Initial Comments: 08/31/18 15:05 Ganga is a 68 YOF from [facility] with h/o morbid obesity, chronic Anemia, Supratherapeutic INR, COPD (on 3 L NC @ baseline), CHF/diastolic heart failure, pulmonary hypertension, IDDM, CKD, History of Pulmonary Embolism/DVT, PAF, prior CVA (w/residual L sided visual loss) on Coumadin who presents to the emergency department for blood transfusion secondary to hemoglobin of 6.9 and hematocrit of 26 after having blood drawn yesterday. Patient reports a 1 month history of worsening shortness of breath with mild exertion. She reports recent UTI 2 weeks ago treated with IV antibiotics. Patient reports chronic constipation. Has had extensive workup for her anemia with unremarkable results, only takes iron supplements. Last admitted 12/2017 for UTI and acute on chronic anemia requiring transfusion at that time as well. The patient denies rhinorrhea, chest pain, abdominal pain, headache, and dizziness. Denies fevers, chills, nausea, vomiting, diarrhea, urinary urgency/ frequency, hematuria, and dysuria. Allergies: No known allergies. Social History: No reported alcohol, cigarette, or drug use. PMD: Dr. Graciela Whitlock <Angel King - Last Filed: 08/31/18 15:14> - General History Source: Patient, [facility] Records Exam Limitations: No Limitations <Dalila Wallace - Last Filed: 08/31/18 16:03> - General Chief Complaint: Blood Transfusion Stated Complaint: BLOOD TRANSFUSION Time Seen by Provider: 08/31/18 13:17 Past History <Angel King - Last Filed: 08/31/18 15:14> - Past Medical History Anemia: Yes Asthma: Yes CVA: Yes COPD: Yes CHF: Yes HTN: Yes Hypercholesterolemia: Yes - Surgical History Orthopedic Surgery: Yes - Immunization History Immunization Up to Date: Yes - Suicide/Smoking/Psychosocial Hx Smoking Status: No Smoking History: Former smoker Have you smoked in the past 12 months: No Number of Cigarettes Smoked Daily: 0 If you are a former smoker, when did you quit?: 1999 Cigars Per Day: 5 Information on smoking cessation initiated: No 'Breaking Loose' booklet given: 11/20/13 Hx Alcohol Use: No Drug/Substance Use Hx: No Substance Use Type: None Hx Substance Use Treatment: No <Dalila Wallace - Last Filed: 08/31/18 16:03> - Past Medical History Allergies/Adverse Reactions: Allergies Allergy/AdvReac Type Severity Reaction Status Date / Time No Known Allergies Allergy Verified 01/08/18 19:57 Home Medications: Ambulatory Orders Acetaminophen [Tylenol] 650 mg PO BID 01/08/18 Albuterol 0.083% Nebulizer Claudia [Ventolin 0.083% Nebulizer Soln -] 1 neb NEB Q4H PRN 01/08/18 Albuterol 2.5/Ipratropium 0.5 [Duoneb -] 1 neb IH QID 01/08/18 Cyclosporine [Restasis] 0.5 each OU BID 01/08/18 Ferrous Sulfate [Feosol] 325 mg PO TID 01/08/18 Insulin Glargine,Hum.rec.anlog [Lantus Solostar] 10 unit SQ DAILY 01/08/18 Meclizine HCl 12.5 mg PO BID PRN 01/08/18 Nifedipine ER [Procardia XL -] 30 mg PO DAILY 01/08/18 Polyethylene Glycol 3350 [Glycolax] 17 gm PO DAILY 01/08/18 Prednisone 20 mg PO DAILY 01/08/18 Prednisone 30 mg PO DAILY 01/08/18 Rosuvastatin Calcium [Crestor] 5 mg PO HS 01/08/18 Sennosides [Natural Laxative] 2 tab PO HS 01/08/18 Warfarin Na [Coumadin -] 0.5 mg PO HS 01/08/18 Budesonide [Pulmicort 0.5 mg Nebulizer -] 1 amp NEB RBID amp 01/14/18 Furosemide [Lasix -] 40 mg PO BID 08/31/18 Gabapentin 200 mg PO ASDIR 08/31/18 Losartan Potassium 100 mg PO DAILY 08/31/18 Sitagliptin Phosphate [Januvia] 50 mg PO DAILY 08/31/18 Warfarin Na [Coumadin -] 3 mg PO DAILY@1800 08/31/18 Review of Systems - Review of Systems Able to Perform ROS?: Yes Comments:: GENERAL/CONSTITUTIONAL: No fever or chills. no sweats. +weakness HEAD, EYES, EARS, NOSE AND THROAT: No change in vision or hearing. No congestion. CARDIOVASCULAR: No chest pain or palpitations, syncope or edema. RESPIRATORY: No cough, wheezing, or hemoptysis. +shortness of breath. GASTROINTESTINAL +constipation. No nausea/vomiting. No diarrhea. No bloody stools. GENITOURINARY: No hematuria, dysuria, frequency, urgency or other changes. MUSCULOSKELETAL: No joint or muscle swelling or pain. No neck or back pain. + leg pain. SKIN: No rash or changes in skin color or lesions. NEUROLOGIC: No headache, vertigo, loss of consciousness, or change in strength/ sensation. HEMATOLOGIC/LYMPHATIC: No anemia, easy bruising/bleeding, or history of blood clots. ALLERGIC/IMMUNOLOGIC: No allergies All other systems reviewed and negative, or as documented in HPI. <Angel King - Last Filed: 08/31/18 15:14> *Physical Exam - Vital Signs Last Vital Signs Temp Pulse Resp BP Pulse Ox 99.4 F 117 H 20 141/56 L 94 L 08/31/18 13:17 08/31/18 13:39 08/31/18 13:39 08/31/18 13:39 08/31/18 13:39 - Physical Exam Comments: General: Well appearing, awake and alert, NAD. morbidly obese. speaking full sentences, on nasal cannula. HEENT: NCAT, PERRL, EOMI, clear conjunctiva, anicteric, moist mucus membranes, clear oropharynx, no oral lesions.. Neck: neck supple, FROM Resp: +bibasilar crackles, inspiratory effort dependent. no respiratory distress on 3L o2 nasal cannula, able to have conversation. normal and even respirations, no respiratory distress CVS:+soft holosystolic murmur. +tachycardia. 2+ peripheral pulses throughout, no peripheral edema Abdomen: soft, obese, nontender. . Rectal: Normal brown stool, no gross blood Back: nontender, normal inspection and ROM MSK: no edema, HANDLEY x4, ROM intact. No clubbing or cyanosis. normal bulk and tone. Extrem: no calf tenderness Neuro: alert, oriented appropriately; no focal neurologic deficits Skin: warm and well perfused, cap refill <2 sec, normal color <Angel King - Last Filed: 08/31/18 15:14> - Vital Signs Last Vital Signs Temp Pulse Resp BP Pulse Ox 99.4 F 117 H 20 141/56 L 94 L 08/31/18 13:17 08/31/18 13:39 08/31/18 13:39 08/31/18 13:39 08/31/18 13:39 <Dalila Wallace - Last Filed: 08/31/18 16:03> Heart Score/ECG Review - ECG Impressions Normal ECG: No Tachycardia: Sinus Comment:: 08/31/18 15:08 EKG sinus tachycardia at 106 bpm, no interval abnormalities, left [place] deviation. narrow QRS, ST and T wave segments and morphology normal. Nonspecific T wave abnormalities <Dalila Wallace - Last Filed: 08/31/18 16:03> ED Treatment Course - LABORATORY CBC & Chemistry Diagram: 08/31/18 14:10 08/31/18 14:10 - ADDITIONAL ORDERS Additional order review: Laboratory Results 08/31/18 08/31/18 08/31/18 14:10 14:10 13:24 PT with INR 50.40 H PTT (Actin FS) 36.7 H Stool Occult Blood Positive Crossmatch See Detail 08/31/18 14:10 RBC 2.79 L MCV 83.1 MCHC 29.4 L RDW 16.1 H MPV 8.7 Neutrophils % 85.7 H D Lymphocytes % 5.6 L D Monocytes % 7.7 Eosinophils % 0.3 Basophils % 0.7 <Angel King - Last Filed: 08/31/18 15:14> - LABORATORY CBC & Chemistry Diagram: 08/31/18 14:10 08/31/18 14:10 - ADDITIONAL ORDERS Additional order review: 08/31/18 14:10 RBC 2.79 L MCV 83.1 MCHC 29.4 L RDW 16.1 H MPV 8.7 Neutrophils % 85.7 H D Lymphocytes % 5.6 L D Monocytes % 7.7 Eosinophils % 0.3 Basophils % 0.7 - RADIOLOGY Radiology Studies Ordered: Category Date Time Status CHEST X-RAY PORTABLE* [RAD] Stat Radiology 08/31/18 13:15 Completed <Dalila Wallacemarquis - Last Filed: 08/31/18 16:03> Medical Decision Making - Medical Decision Making 08/31/[address] Whitlock at 14:55. 08/31/[address] Munson at 15:14. <Angel King - Last Filed: 08/31/18 15:14> - Medical Decision Making 08/31/18 14:57 Ganga is a 68 YOF from [facility] with h/o morbid obesity, chronic Anemia, Supratherapeutic INR, COPD (on 3 L NC @ baseline), CHF/diastolic heart failure, pulmonary hypertension, IDDM, CKD, History of Pulmonary Embolism/DVT, PAF, prior CVA (w/residual L sided visual loss) on Coumadin who presents to the emergency department for blood transfusion secondary to hemoglobin of 6.9 and hematocrit of 26 after having blood drawn yesterday. Vital signs reviewed, +tachycardic in 117, hypertensive and SpO2 in 90s on nasal cannula (baseline), no acute distress Prior notes reviewed, including admissions, discharges and consultations. laboratory results and imaging reviewed, basic labs and lytes wnl, notable for acute on chronic anemia with Hb 6.8, Hct 23. Cr at baseline. leukocytosis noted , previously elevated as well, no fever here, defer treatment until source. INR supratherapeutic >4, guaiac positive but no gross bleeding or melena, defer tx for now. Protonix 40mg IV x1. retic ct elevated, so functioning bone marrow. remainder of anemia workup/iron studies ordered and pending UA_ CXR_enlarged cardiac silhouette, edema, unchanged from prior. Cardiac panel_neg trop, reassuring, less likely demand ischemia or ACS EKG sinus tachycardia at 106 bpm, no interval abnormalities, left [place] deviation. narrow QRS, ST and T wave segments and morphology normal. Nonspecific T wave abnormalities ED course: no acute events, remained stable and well appearing. tachycardia likely from severe symptomatic anemia. baseline borderline hypoxia 2/2 severe copd on nasal cannula. consented for blood transfusion, indication risks and benefits discussed, pt agreeable to proceed with pRBC transfusion txs, ordered for pRBC 2 units with lasix 40mg IV in between with h/o diastolic heart failure (last echo in 2017 with preserved EF, though limited). Heme cs called, Dr. Munson requested. Dispo: Admit to telemetry for acute on chronic anemia, symptomatic anemia.. Discussed results and management plan with pt and family member at bedside, agree with impression and plan. admit to Dr. Whitlock. 08/31/18 16:02 <Dalila Wallace - Last Filed: 08/31/18 16:03> *DC/Admit/Observation/Transfer - Attestations Scribe Attestion: Documentation prepared by Angel King, acting as medical laboratory scientist for Dalila Wallace MD. <Angel King - Last Filed: 08/31/18 15:14> - Discharge Dispostion Decision to Admit order: Yes Decision to Admit order Date/Time: 08/31/18 15:01 Decision to Admit Order Category Date Time Status Decision to Admit to Hospital Routine Admission 08/31/18 14:52 Active - Attestations Physician Attestion: 08/31/18 16:03 I, Dalila Wallace MD, attest that this document has been prepared under my direction and personally reviewed by me in its entirety. I further attest, that it accurately reflects all work, treatment, procedures and medical decision -making performed by me. <Dalila Wallace - Last Filed: 08/31/18 16:03> Diagnosis at time of Disposition: Chronic diastolic (congestive) heart failure, CKD (chronic kidney disease), Symptomatic anemia, Supratherapeutic INR - Discharge Dispostion Condition at time of disposition: Fair
[2018-08-31 14:49] LABS: PROTHROMBIN TIME (PATIENT) 50.4 SEC (9.7-13.0)
[2018-08-31 14:51] LABS: ACTIVATED PTT 36.7 SECONDS (25.2-36.5)
[2018-08-31] MEDS ORDERED: FUROSEMIDE 40 MG/4 ML INJECTABLE VIAL IVPUSH ONE (14:59)
[2018-08-31 15:08] LABS: ALBUMIN 3.2 g/dl (3.4-5.0); ALK PHOS 81 U/L (45-117); ANION GAP 6 MMOL/L (8-16); BILIRUBIN,TOTAL 0.3 mg/dL (0.2-1); BLOOD UREA NITROGEN 38 mg/dL (7-18); CALCIUM 8.2 mg/dL (8.5-10.1); CHLORIDE 96 mmol/L (98-107); CO2 41 mmol/L (21-32); CREATININE 1.5 mg/dL (0.55-1.3); GLUCOSE,RANDOM 178 mg/dL (74-106); POTASSIUM 4.2 mmol/L (3.5-5.1); SGOT/AST 24 U/L (15-37); SGPT/ALT 40 U/L (13-61); SODIUM 143 mmol/L (136-145); TOT PROT 5.7 g/dl (6.4-8.2)
[2018-08-31 15:23] LABS: ANISOCYTOSIS 3+; MACROCYTOSIS 0; PLATELET ESTIMATE NORMAL; TEAR DROP CELLS 2+
[2018-08-31 15:26] LABS: INR 4.21 (0.83-1.09)
--- NOTE | 2018-08-31 15:48 | EKG ---
Test Reason : Blood Pressure : / mmHG Vent. Rate : 106 BPM Atrial Rate : 106 BPM P-R Int : 158 ms QRS Dur : 064 ms QT Int : 322 ms P-R-T Axes : 069 -27 029 degrees QTc Int : 427 ms POOR DATA QUALITY, INTERPRETATION MAY BE ADVERSELY AFFECTED SINUS TACHYCARDIA CANNOT RULE OUT ANTERIOR INFARCT (CITED ON OR BEFORE 23-NOV-2017) ABNORMAL ECG WHEN COMPARED WITH ECG OF 08-JAN-2018 21:40, QUESTIONABLE CHANGE IN INITIAL FORCES OF ANTERIOR LEADS Confirmed by Samuel Whitman ([id number]) on 08/31/2018 3:48:01 PM Referred By: Confirmed By:Samuel Whitman
[2018-08-31] MEDS ORDERED: PANTOPRAZOLE SODIUM 40 MG VIAL IVPUSH ONE (15:55)
--- NOTE | 2018-08-31 17:02 | CONSULT ---
Consult Consult Specialty:: Heme/Onc Referred by:: Dr. Wallace Reason for Consultation:: Anemia - History of Present Illness Chief Complaint: low henmoglobin History of Present Illness: 68F with extensive medical history listed below presents to the ER with low hemoglobin and shortness of breath. Patient states she gets her blood work checked once a week on mondays for CBC and INR and she has had her coumadin dosing changed around plenty of times in the past. She states she has been worked up many times and has been here for similar presentations in the past where she has a supratherapeutic INR, has a positive occult blood, is anemic and gets GI work up. She is very frustrated as she has never been given an answer as to why this keeps happening. She currently denies nausea vomiting fever chills chest pain. She endorses consitpation and shortness of breath. Hb currently 6.8 and INR is 4.21. 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 Cardio/Vascular: Yes: CHF (chronic diastolic), HTN, Hyperlipdemia Pulmonary: Yes: COPD, O2 Dependent, Pulmonary Embolus, Other (pulmonary HTN) - Alcohol/Substance Use Hx Alcohol Use: No - Smoking History Smoking history: Former smoker Have you smoked in the past 12 months: No Aproximately how many cigarettes per day: 0 If you are a former smoker, when did you quit?: 1998 - Social History Usual Living Arrangement: Alone History of Recent Travel: No Home Medications - Allergies Allergies/Adverse Reactions: Allergies Allergy/AdvReac Type Severity Reaction Status Date / Time No Known Allergies Allergy Verified 01/08/18 19:57 - Home Medications Home Medications: Ambulatory Orders Acetaminophen [Tylenol] 650 mg PO BID 01/08/18 Albuterol 0.083% Nebulizer Claudia [Ventolin 0.083% Nebulizer Soln -] 1 neb NEB Q4H PRN 01/08/18 Albuterol 2.5/Ipratropium 0.5 [Duoneb -] 1 neb IH QID 01/08/18 Cyclosporine [Restasis] 0.5 each OU BID 01/08/18 Ferrous Sulfate [Feosol] 325 mg PO TID 01/08/18 Insulin Glargine,Hum.rec.anlog [Lantus Solostar] 10 unit SQ DAILY 01/08/18 Meclizine HCl 12.5 mg PO BID PRN 01/08/18 Nifedipine ER [Procardia XL -] 30 mg PO DAILY 01/08/18 Polyethylene Glycol 3350 [Glycolax] 17 gm PO DAILY 01/08/18 Prednisone 20 mg PO DAILY 01/08/18 Prednisone 30 mg PO DAILY 01/08/18 Rosuvastatin Calcium [Crestor] 5 mg PO HS 01/08/18 Sennosides [Natural Laxative] 2 tab PO HS 01/08/18 Warfarin Na [Coumadin -] 0.5 mg PO HS 01/08/18 Budesonide [Pulmicort 0.5 mg Nebulizer -] 1 amp NEB RBID amp 01/14/18 Furosemide [Lasix -] 40 mg PO BID 08/31/18 Gabapentin 200 mg PO ASDIR 08/31/18 Losartan Potassium 100 mg PO DAILY 08/31/18 Sitagliptin Phosphate [Januvia] 50 mg PO DAILY 08/31/18 Warfarin Na [Coumadin -] 3 mg PO DAILY@1800 08/31/18 Review of Systems - Review of Systems Constitutional: reports: No Symptoms Eyes: reports: Other (tearing of left eye) Neck: reports: No Symptoms Cardiovascular: reports: Edema (complains of lower extremitry edema and heaviness), Shortness of Breath Respiratory: reports: SOB Gastrointestinal: reports: Constipation Genitourinary: reports: No Symptoms Breasts: reports: No Symptoms Reported Musculoskeletal: reports: No Symptoms Integumentary: reports: No Symptoms Neurological: reports: No Symptoms Endocrine: reports: No Symptoms Hematology/Lymphatic: reports: Easily Bruised Physical Exam Vital Signs: Vital Signs Temperature 99.4 F 08/31/18 13:17 Pulse Rate 117 H 08/31/18 13:39 Respiratory Rate 20 08/31/18 13:39 Blood Pressure 141/56 L 08/31/18 13:39 O2 Sat by Pulse Oximetry (%) 94 L 08/31/18 13:39 Constitutional: Yes: No Distress, Obese Eyes: Yes: PERRL, Other (conjunctival pallor) HENT: Yes: Atraumatic Neck: Yes: Supple. No: Lymphadenopathy Cardiovascular: Yes: Regular Rate and Rhythm Respiratory: Yes: Diminished Gastrointestinal: Yes: Soft, Abdomen, Obese. No: Tenderness Extremities: Yes: Other (no inguinal adenopathy appreciated) Edema: Yes (trace LE edema) Integumentary: Yes: Bruising Neurological: Yes: Alert, Oriented Labs: CBC, BMP 08/31/18 14:10 08/31/18 14:10 Imaging - Results Chest X-ray: Report Reviewed, Image Reviewed Assessment/Plan 68M with extensive medical history presents for symptomatic anemia. Problem List: Shortness of breath supratherapeutic INR Stool occult blood positive History of PE/DVT History of CVA Morbid obesity chronic anemia diastolic CHF paroxysmal A fib constipation pulmonary HTN HTN IDDM CKD COPD on 3L NC Plan: Hold coumadin at this time patient to receive 2 units PRBCs with a dose of lasix in between trend CBC consider GI consult
[2018-08-31] MEDS ORDERED: IBUPROFEN 400 MG TABLET (FP) PO ONE (21:26)
[2018-08-31] MEDS ORDERED: MECLIZINE HCL 12.5 MG TABLET PO PRN (23:44)
[2018-09-01] MEDS ORDERED: ALBUTEROL SO4 2.5/IPRATROPIUM 0.5 INH SOL 3 ML VIAL.NEB. NEB ONE (00:48)
[2018-09-01] MEDS ORDERED: FUROSEMIDE 40 MG/4 ML INJECTABLE VIAL ONE (00:57)
[2018-09-01] MEDS: BUDESONIDE/FORMETEROL FUMARATE 160/4.5 mcg INHALER IH SCH ×3 (01:07→21:44)
[2018-09-01] MEDS: ALBUTEROL SO4 2.5/IPRATROPIUM 0.5 INH SOL 3 ML VIAL.NEB. NEB SCH ×4 (01:08→16:36)
[2018-09-01] MEDS: TIOTROPIUM BROMIDE 2.5 MCG (SPIRIVA) RESPIMAT INHALER IH SCH (01:08)
[2018-09-01] MEDS: ROSUVASTATIN CA 5 MG TABLET (FP) PO SCH ×2 (02:07→21:43)
[2018-09-01] MEDS: SENNOSIDES 8.6MG TABLET (FP) PO SCH ×2 (02:07→21:43)
[2018-09-01 06:06] LABS: SERUM IRON SATURATION 9 % (15-55); TOTAL IRON BINDING CAPACITY 305 ug/dL (250-450); UIBC 278 ug/dL (118-369)
[2018-09-01] MEDS: INSULIN (LEVEMIR) 100 UNITS/ML UNITS SQ SCH (07:00)
[2018-09-01] MEDS: sitaGLIPtin PHOSPHATE 50 MG TABLET PO SCH (07:00)
[2018-09-01] MEDS: INSULIN SLIDING SCALE (NOVOLOG) 1 VIAL SQ SCH ×4 (07:04→21:49)
[2018-09-01 07:35] LABS: BASO % 0.4 % (0-2.0); EOS % 0.1 % (0-4.5); HEMATOCRIT 28.1 % (32.4-45.2); HEMOGLOBIN 8.2 GM/dL (10.7-15.3); LYMPH % 11.8 % (8-40); MCH 24.5 pg (25.7-33.7); MCHC 29.2 g/dl (32.0-36.0); MEAN PLT VOLUME 8.3 fl (7.5-11.1); MONO % 7.3 % (3.8-10.2); NEUT % 80.4 % (42.8-82.8); PLATELET COUNT 209 K/MM3 (134-434); RBC 3.35 M/mm3 (3.60-5.2); RDW 15.4 % (11.6-15.6); WHITE BLOOD COUNT 14.4 K/mm3 (4.0-10.0)
[2018-09-01] MEDS ORDERED: BUDESONIDE 0.5 MG/2 ML INH SUSP VIAL NEB SCH (08:00)
[2018-09-01 08:36] LABS: INR 3.65 (0.83-1.09); PROTHROMBIN TIME (PATIENT) 43.6 SEC (9.7-13.0)
[2018-09-01 08:48] LABS: ALBUMIN 3.1 g/dl (3.4-5.0); ALK PHOS 60 U/L (45-117); ANION GAP 5 MMOL/L (8-16); BILIRUBIN,TOTAL 0.5 mg/dL (0.2-1); BLOOD UREA NITROGEN 34 mg/dL (7-18); CALCIUM 8.3 mg/dL (8.5-10.1); CHLORIDE 95 mmol/L (98-107); CO2 41 mmol/L (21-32); CREATININE 1.4 mg/dL (0.55-1.3); GLUCOSE,RANDOM 174 mg/dL (74-106); POTASSIUM 4.4 mmol/L (3.5-5.1); SGOT/AST 17 U/L (15-37); SGPT/ALT 33 U/L (13-61); SODIUM 141 mmol/L (136-145); TOT PROT 5.7 g/dl (6.4-8.2)
--- NOTE | 2018-09-01 08:51 | CON.CARD ---
Cardiology Consult (text) - Consultation Consultation Note: Cardiology Consult Dictated IMP: Hx PE on warfarin Supratherapeutic INR Anemia REC: 1. Hold coumadin 2. Follow H/H 3. Anemia work up per PMD 4. Transfuse to Hb > 8
[2018-09-01] MEDS ORDERED: PT OWN MED DRAWER 7, Y5N ONE ×2 (09:31→21:38)
[2018-09-01] MEDS: GABAPENTIN 100 MG CAPSULE (FP) PO SCH ×2 (09:39→21:43)
[2018-09-01] MEDS: LOSARTAN POTASSIUM 50 MG TABLET (FP) PO SCH (09:39)
[2018-09-01] MEDS: FUROSEMIDE 40 MG/4 ML INJECTABLE VIAL IVPUSH SCH (09:39)
[2018-09-01] MEDS: FERROUS SO4 325 MG TABLET (FP) PO SCH ×3 (09:39→17:07)
[2018-09-01] MEDS: ACETAMINOPHEN 325 MG TABLET (FP) PO SCH ×3 (09:39→21:43)
[2018-09-01] MEDS: NIFEdipine E.R. 30 MG TABLET (FP) PO SCH (09:39)
--- NOTE | 2018-09-01 09:46 | CONS ---
DATE OF CONSULTATION: 09/01/2018 HISTORY OF PRESENT ILLNESS: The patient is a 68-year-old female with significant past medical history of morbid obesity, chronic COPD on oxygen, chronic anemia, history of pulmonary embolism and DVT on warfarin, chronic diastolic CHF. pulmonary hypertension, insulin-dependent diabetes, and chronic renal insufficiency as well as paroxysmal atrial fibrillation. She presented from [facility] for transfusion due to marked anemia and elevated INR. The patient denies active bleeding. She denies any hematuria, hematemesis, or melena. She has chronic dyspnea on exertion from her COPD, which she states has not changed, she in chronically on home O2. She also reports having an extensive workup for anemia with unremarkable results and is chronically on iron supplementation. PAST MEDICAL HISTORY: As outlined above. ALLERGIES: She has no known drug allergies. MEDICATIONS: Her current medications include acetaminophen 650 po. b.i.d., albuterol/ipratropium nebulizer, budesonide via nebulizer b.i.d., ferrous sulfate 325 p.o. t.i.d., furosemide 40 mg IV daily, gabapentin 200 mg p.o. b.i.d., insulin sliding scale, Levemir 10 units subcutaneous at bedtime, losartan 100 mg p.o. daily, meclizine 12.5 p.o. b.i.d., nifedipine extended release 30 mg p.o. daily, cyclosporine eye drops 0.5 b.i.d., rosuvastatin 5 mg p.o. at bedtime, Senna tablets 2 tablets h.s., sitagliptin 50 mg p.o. daily, and Spiriva 2 puffs via inhalation daily. FAMILY HISTORY: Noncontributory. SOCIAL HISTORY: She is currently in a fpc on chronic O2. She is a former smoker. PHYSICAL EXAMINATION: General: She is alert, oriented, in no distress. Vital signs: Afebrile, temperature 98 Fahrenheit, pulse is 83 regular, blood pressure 149/68. HEENT: Anicteric. Neck: No bruits. Heart: S1, S2, regular, no murmurs. Chest: Decreased breath sounds bilaterally consistent with COPD. No active wheezing. Abdomen: Morbidly obese, soft, nontender. Extremities: With no significant edema. LABORATORY DATA: CBC consistent for significant anemia with hemoglobin of 6.8, hematocrit of 23, white count 15, platelets 266. INR was initially 4.2, now down to 3.6. Sodium 141, potassium 4.4, creatinine 1.4. LFTs are normal. Stool guaiac is positive. CHEST X-RAY: Prominent mediastinum with congestive changes, atelectatic changes. ECHOCARDIOGRAM: Sinus tachycardia with poor R-wave progression. IMPRESSION: 1. History of pulmonary embolism, on warfarin. 2. Supratherapeutic international normalized ratio. 3. Symptomatic anemia with guaiac positive stool. RECOMMENDATIONS: 1. Hold warfarin. 2. Follow H and H. 3. Anemia workup as per PMD. 4. Transfuse to hemoglobin greater than 8. 5. Supplemental O2. . Will follow. Thank you for the consultation. JENNIFER IRBY M.D. [id number]
[2018-09-01] MEDS: POLYETHYLENE GLYCOL 3350 255 GM BTL PO SCH (09:53)
[2018-09-01] MEDS ORDERED: CYCLOSPORINE OU SCH (10:00)
[2018-09-01 10:09] LABS: URINE APPEARANCE CLOUDY; URINE BILIRUBIN NEGATIVE (<2.0 mg/dL); URINE COLOR YELLOW; URINE GLUCOSE (UA) NEGATIVE (NEGATIVE); URINE KETONE NEGATIVE (NEGATIVE); URINE LEUK ESTERASE 1+ (NEGATIVE); URINE NITRITE NEGATIVE (NEGATIVE); URINE PROTEIN 1+ (NEGATIVE); URINE UROBILINOGEN NEGATIVE mg/dL (0.2-1.0)
[2018-09-01 10:16] LABS: EPI CELLS RARE /HPF (FEW); URINE BACTERIA FEW /hpf (NONE SEEN); URINE HYALINE CAST 3 /lpf
--- NOTE | 2018-09-01 11:38 | HP ---
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 Cardiovascular: Yes: CHF (chronic diastolic), HTN, Hyperlipdemia Pulmonary: Yes: COPD, O2 Dependent, Pulmonary Embolus, Other (pulmonary HTN) ...: No Heme/Onc: Yes: Anemia, Hypercoaguable State - Advance Directives Advance Directives: Yes: Health Care Proxy, MOLST - Smoking History Smoking history: Former smoker Have you smoked in the past 12 months: No Aproximately how many cigarettes per day: 20 If you are a former smoker, when did you quit?: 1998 - Alcohol/Substance Use Hx Alcohol Use: No - Social History History of Recent Travel: No Home Medications - Allergies Allergies/Adverse Reactions: Allergies Allergy/AdvReac Type Severity Reaction Status Date / Time No Known Allergies Allergy Verified 01/08/18 19:57 - Home Medications Home Medications: Ambulatory Orders Acetaminophen [Tylenol] 650 mg PO BID 01/08/18 Albuterol 0.083% Nebulizer Claudia [Ventolin 0.083% Nebulizer Soln -] 1 neb NEB Q4H PRN 01/08/18 Cyclosporine [Restasis] 1 drop OU BID 01/08/18 Ferrous Sulfate [Feosol] 325 mg PO DAILY 01/08/18 Insulin Glargine,Hum.rec.anlog [Lantus Solostar] 10 unit SQ DAILY 01/08/18 Meclizine HCl 12.5 mg PO DAILY 01/08/18 Nifedipine ER [Procardia XL -] 30 mg PO DAILY 01/08/18 Polyethylene Glycol 3350 [Glycolax] 17 gm PO DAILY 01/08/18 Rosuvastatin Calcium [Crestor] 5 mg PO HS 01/08/18 Sennosides [Natural Laxative] 2 tab PO HS 01/08/18 Warfarin Na [Coumadin -] 3.5 mg PO HS 01/08/18 Furosemide [Lasix -] 40 mg PO BID 08/31/18 Gabapentin 200 mg PO TID 08/31/18 Losartan Potassium 100 mg PO DAILY 08/31/18 Sitagliptin Phosphate [Januvia] 50 mg PO DAILY 08/31/18 Warfarin Na [Coumadin -] 3 mg PO DAILY@1800 08/31/18 Albuterol 0.083% Nebulizer Claudia [Ventolin 0.083% Nebulizer Soln -] 1 amp NEB DAILY 09/01/18 Budesonide/Formeterol Fumarate [SYMBICORT 160/4.5mcg -] 2 inh PO BID 09/01/18 Cholecalciferol (Vitamin D3) [Decara] 50,000 unit PO MONTHLY 09/01/18 Fluticasone Prop 0.05% Nasal [Flonase -] 1 spray NS DAILY 09/01/18 Levalbuterol Tartrate [Xopenex Hfa] 2 puff IH Q4H PRN 09/01/18 Menthol/Zinc Oxide [Calmoseptine Ointment] 1 applic TP DAILY 09/01/18 Polyvinyl Alcohol [Artificial Tears] 1 drop OU BID 09/01/18 Tiotropium Emerson [Spiriva Respimat] 2 puff IH DAILY 09/01/18 Physical Examination Vital Signs: Vital Signs Temperature 98 F 09/01/18 06:30 Pulse Rate 83 09/01/18 06:30 Respiratory Rate 18 09/01/18 06:30 Blood Pressure 149/68 09/01/18 06:30 O2 Sat by Pulse Oximetry (%) 94 L 09/01/18 00:25 Labs: CBC, BMP 09/01/18 05:50 09/01/18 05:50
[2018-09-01] MEDS ORDERED: ARTIFICIAL TEARS (POLYVINYL ALCOHOL) OPTH DROPS OU PRN (12:24)
[2018-09-01] MEDS ORDERED: ACETAMINOPHEN 325 MG TABLET (FP) PO SCH (12:30)
--- NOTE | 2018-09-01 14:15 | PN ---
Progress Note (short form) - Note Progress Note: PULMONARY CONSULTATION DICTATED 09/01/18 IMP SYMPTOMATIC ANEMIA COPD O2 DEPENDENT WITH CHRONIC HYPOXEMIC RESPIRATORY FAILURE CHRONIC THROMBOEMBOLIC PULMONARY HTN SUPRA-THERAPEUTIC INR DIASTOLIC HF HTN MORBID OBESITY DM PLAN O2 INHALED BRONCHODILATORS NORMAL TRANSFUSION THRESHOLD MONITOR INR GI W/U PER GI MONITOR H+H ESTEPHANIA FOX Problem List - Problems (1) CKD (chronic kidney disease) Code(s): N18.9 - CHRONIC KIDNEY DISEASE, UNSPECIFIED (2) Chronic diastolic (congestive) heart failure Code(s): I50.32 - CHRONIC DIASTOLIC (CONGESTIVE) HEART FAILURE (3) Supratherapeutic INR Code(s): R79.1 - ABNORMAL COAGULATION PROFILE (4) Symptomatic anemia Code(s): D64.9 - ANEMIA, UNSPECIFIED (5) Acute on chronic diastolic (congestive) heart failure Code(s): I50.33 - ACUTE ON CHRONIC DIASTOLIC (CONGESTIVE) HEART FAILURE (6) Anemia Code(s): D64.9 - ANEMIA, UNSPECIFIED Qualifiers: Anemia type: unspecified type Qualified Code(s): D64.9 - Anemia, unspecified (7) CHF (congestive heart failure) Code(s): I50.9 - HEART FAILURE, UNSPECIFIED (8) Chronic respiratory failure with hypoxia, on home O2 therapy Code(s): J96.11 - CHRONIC RESPIRATORY FAILURE WITH HYPOXIA; Z99.81 - DEPENDENCE ON SUPPLEMENTAL OXYGEN (9) DVT (deep venous thrombosis) Code(s): I82.409 - ACUTE EMBOLISM AND THOMBOS UNSP DEEP VN UNSP LOWER EXTREMITY (10) Diabetes Code(s): E11.9 - TYPE 2 DIABETES MELLITUS WITHOUT COMPLICATIONS (11) Hypertension Code(s): I10 - ESSENTIAL (PRIMARY) HYPERTENSION (12) long-term current use of anticoagulant 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
[2018-09-01] MEDS ORDERED: WARFARIN NA 2 MG TABLET (UD) PO SCH (18:00)
--- NOTE | 2018-09-01 18:13 | CONS ---
DATE OF CONSULTATION: 09/01/2018 PULMONARY CONSULTATION REFERRING PHYSICIAN: Graciela Whitlock M.D. HISTORY OF PRESENT ILLNESS: The patient I is a 68-year-old black female known to me from previous hospitalization as well as office followup with past medical history of increased pulmonary hypertension secondary to chronic thromboembolic pulmonary hypertension, morbid obesity, chronic COPD in O2, chronic anemia, chronic diastolic heart failure, pulmonary hypertension, insulin dependent diabetes mellitus, chronic kidney disease, paroxysmal atrial fibrillation, resident of [facility], transferred to [facility] secondary to labs revealing super therapeutic INR and anemia. On admission, the patient is noted to have hemoglobin of 6.8 g with hematocrit of 23, she was also noted to have an INR of 4.2. She was admitted. She was transfused 2 units of packed red blood cells without complications. Patient was complaining of increasing shortness of breath, denied any complaints of chest pain or palpitations. Of note is her stool for occult blood was positive. PAST MEDICAL HISTORY: Again includes chronic thromboembolic pulmonary hypertension, advanced COPD on home O2, chronic hypoxemic respiratory failure, chronic hypertension, insulin dependent diabetes mellitus, chronic kidney disease, diastolic heart failure, anemia, morbid obesity, CVA. REVIEW OF SYSTEMS: Positive orthopnea. Positive dyspnea. No chest pain. No palpitations. No fevers. No chills. No nausea. No vomiting. Positive for lower extremity edema. CURRENT MEDICATIONS: Include cyclosporin, Pulmicort, Symbicort, Tylenol, Cozaar, Neurontin, Antivert, Spiriva, DuoNeb, Miralax, senna, Procardia, Januvia, and artificial tears, Crestor, and Lasix. PHYSICAL EXAMINATION: GENERAL: The patient is a morbidly obese female, awake alert, currently in no acute distress. She is afebrile. VITAL SIGNS: Blood pressure 126/61, respiratory rate 18, O2 saturation is 95% on 4 L. HEENT: Normocephalic, atraumatic. NECK: Supple. HEART: Regular S1, S2. CHEST: Diminished breath sounds bilaterally. ABDOMEN: Soft, bowel sounds positive. EXTREMITIES: Lower extremity edema. LABORATORY: WBC 14.4, hemoglobin 8.2, hematocrit 28.1, platelet count of 209,000. Initial WBC is 15.9, hemoglobin is 6.8, hematocrit 23.2, platelet count of 266,000. INR initial 4.21, currently 3.65. BUN 34, creatinine 1.4. UA positive 3+ heme. No infiltrates. No effusions. Mild congestive changes bilaterally. IMPRESSION: 1. Anemia likely secondary to gastrointestinal bleed. 2. Chronic hypoxemic respiratory failure. 3. Chronic thromboembolic pulmonary hypertension currently on anticoagulation. 4. Advanced chronic obstructive pulmonary disease, chronic hypoxemia, oxygen dependent. 5. Morbid obesity. 6. Super therapeutic INR. 7. Chronic anemia. 8. Insulin dependent diabetes mellitus. 9. Chronic kidney disease. PLAN: Transfuse. Monitor normal transfusion threshold. Monitor CBC. GI workup. Supplemental O2. Inhaled bronchodilators. Monitor electrolytes. Monitor INR. STEPHIE FOX M.D. [id number]
[2018-09-02] MEDS: INSULIN SLIDING SCALE (NOVOLOG) 1 VIAL SQ SCH ×4 (06:05→21:02)
[2018-09-02] MEDS: INSULIN (LEVEMIR) 100 UNITS/ML UNITS SQ SCH (06:06)
[2018-09-02] MEDS: sitaGLIPtin PHOSPHATE 50 MG TABLET PO SCH (06:06)
[2018-09-02] MEDS: ALBUTEROL SO4 0.083% IH SOL 2.5 MG/3 ML VIAL.NEB. NEB PRN (07:34)
--- NOTE | 2018-09-02 08:32 | PN ---
Teaching Attending Note Name of Resident: Beni Salinas ATTENDING PHYSICIAN STATEMENT I saw and evaluated the patient. I reviewed the resident's note and discussed the case with the resident. I agree with the resident's findings and plan as documented. SUBJECTIVE: Patient seen and examined Multiple co- morbid medical problems. Presented with supratherapeutic INR and anemia Hx of VTE Morbid obesity COPD Anticoagulation stroke with decreased vision left eye Inability to ambulate. Strong family history of cancer Mother and mothers sister both with breast cance Maternal and paternal grandparents both with stomach ca Last Vital Signs Temp Pulse Resp BP Pulse Ox 98.2 F 84 20 153/62 100 09/02/18 06:00 09/02/18 06:00 09/02/18 06:00 09/02/18 06:00 09/01/18 21:00 HEENT: Erythema right ey -subconjunctival hemorrhage Oropharynx: No thrush, No mucositis,dentures Nodes: Without adenopathy Breasts: Without masses, pendulous , difficult to examine; left breast is edematous and larger than right Cor: RSR, No murmurs, No gallops Lungs: diminished breath sounds Abd: Soft, Normal bowel sounds, No organomegaly, obese ExtLE edemaedema Skin: No rashes, Integument intact CBC, BMP 09/01/18 05:50 09/01/18 05:50 Current Medications Generic Name Dose Route Start Last Admin Trade Name Freq PRN Reason Stop Dose Admin Acetaminophen 1,300 mg 09/01/18 13:24 09/01/18 21:43 Tylenol - PO 1,300 mg BID [facility] Administration Albuterol Sulfate 1 amp 09/01/18 17:12 09/02/18 07:34 Ventolin 0.083% Nebulizer Soln - NEB 1 amp Q4H PRN Administration SHORT OF BREATH/WHEEZING Artificial Tears 1 drop 09/01/18 12:24 Artificial Tears OU BID PRN DRY EYES Budesonide/Formoterol Fumarate 2 puff 09/01/18 01:00 09/01/18 21:44 Symbicort 160/4.5mcg - IH 2 puff BID [facility] Administration Ferrous Sulfate 325 mg 09/01/18 08:00 09/01/18 17:07 Feosol - PO 325 mg TIDCM [facility] Administration Furosemide 40 mg 09/01/18 10:00 09/01/18 09:39 Lasix Injection - IVPUSH 40 mg DAILY [facility] Administration Gabapentin 200 mg 09/01/18 10:00 09/01/18 21:43 Neurontin - PO 200 mg BID [facility] Administration Insulin Aspart 1 vial 09/01/18 07:00 09/02/18 06:05 Novolog Vial Sliding Scale - SQ Not Given ACHS [facility] Protocol Insulin Detemir 10 units 09/01/18 07:00 09/02/18 06:06 Levemir Vial SQ 10 units DAILY@0700 [facility] Administration Losartan Potassium 100 mg 09/01/18 10:00 09/01/18 09:39 Cozaar - PO 100 mg DAILY [facility] Administration Meclizine HCl 12.5 mg 08/31/18 23:44 Antivert - PO BID PRN VERTIGO Nifedipine 30 mg 09/01/18 10:00 09/01/18 09:39 Procardia Xl - PO 30 mg DAILY [facility] Administration Non-Formulary Medication 0.5 each 09/01/18 10:00 Cyclosporine [Restasis] OU BID [facility] Polyethylene Glycol 17 gm 09/01/18 10:00 09/01/18 09:53 Miralax (For Bowel Prep) - PO 17 gm DAILY [facility] Administration Rosuvastatin Calcium 5 mg 09/01/18 01:00 09/01/18 21:43 Crestor - PO 5 mg HS [facility] Administration Senna 2 tab 09/01/18 01:00 09/01/18 21:43 Senna - PO 2 tab HS [facility] Administration Sitagliptin Phosphate 50 mg 09/01/18 07:00 09/02/18 06:06 Januvia - PO 50 mg DAILY@0700 [facility] Administration Tiotropium [place] 2 puff 09/01/18 01:00 09/01/18 01:08 Spiriva Respimat IH 2 puff DAILY [facility] Administration OBJECTIVE: Impression: Anemia - heme positive stool ; Fe++ -27 with Fe++ saturation of 9% compatible with blood loss anemia. Although previously done-- consider follow up GI assessment including capsule. Can replete with parental iron. Review of lab dating back to 2011 reveals chronic anemia with serial Fe++ levels low over the years. Patient also with strong family history of breast ca in mother and mothers sister. Her left breast is edematous and larger than the right without distinct mass ( difficult to examine ) and deserves investigation. Also both grandparents had stomach ca and there is an association between lobular ca and breast ca. To follow. ASSESSMENT AND PLAN:
--- NOTE | 2018-09-02 08:34 | PN ---
Progress Note, Physician Chief Complaint: comfortable no acute distress TELE: NSR, rare PVC - Current Medication List Current Medications: Active Medications Acetaminophen (Tylenol -) 1,300 mg PO BID [facility] Last Admin: 09/01/18 21:43 Dose: 1,300 mg Albuterol Sulfate (Ventolin 0.083% Nebulizer Soln -) 1 amp NEB Q4H PRN PRN Reason: SHORT OF BREATH/WHEEZING Last Admin: 09/02/18 07:34 Dose: 1 amp Artificial Tears (Artificial Tears) 1 drop OU BID PRN PRN Reason: DRY EYES Budesonide/Formoterol Fumarate (Symbicort 160/4.5mcg -) 2 puff IH BID [facility] Last Admin: 09/01/18 21:44 Dose: 2 puff Ferrous Sulfate (Feosol -) 325 mg PO TIDCM [facility] Last Admin: 09/01/18 17:07 Dose: 325 mg Furosemide (Lasix Injection -) 40 mg IVPUSH DAILY [facility] Last Admin: 09/01/18 09:39 Dose: 40 mg Gabapentin (Neurontin -) 200 mg PO BID [facility] Last Admin: 09/01/18 21:43 Dose: 200 mg Insulin Aspart (Novolog Vial Sliding Scale -) 1 vial SQ [facility]; Protocol Last Admin: 09/02/18 06:05 Dose: Not Given Insulin Detemir (Levemir Vial) 10 units SQ DAILY@0700 [facility] Last Admin: 09/02/18 06:06 Dose: 10 units Losartan Potassium (Cozaar -) 100 mg PO DAILY [facility] Last Admin: 09/01/18 09:39 Dose: 100 mg Meclizine HCl (Antivert -) 12.5 mg PO BID PRN PRN Reason: VERTIGO Nifedipine (Procardia Xl -) 30 mg PO DAILY [facility] Last Admin: 09/01/18 09:39 Dose: 30 mg Non-Formulary Medication (Cyclosporine [Restasis]) 0.5 each OU BID [facility] Polyethylene Glycol (Miralax (For Bowel Prep) -) 17 gm PO DAILY [facility] Last Admin: 09/01/18 09:53 Dose: 17 gm Rosuvastatin Calcium (Crestor -) 5 mg PO HS [facility] Last Admin: 09/01/18 21:43 Dose: 5 mg Senna (Senna -) 2 tab PO [facility] Last Admin: 09/01/18 21:43 Dose: 2 tab Sitagliptin Phosphate (Januvia -) 50 mg PO DAILY@0700 [facility] Last Admin: 09/02/18 06:06 Dose: 50 mg Tiotropium [place] (Spiriva Respimat) 2 puff IH DAILY [facility] Last Admin: 09/01/18 01:08 Dose: 2 puff - Objective Vital Signs: Vital Signs Temperature 98.2 F 09/02/18 06:00 Pulse Rate 84 09/02/18 06:00 Respiratory Rate 20 09/02/18 06:00 Blood Pressure 153/62 09/02/18 06:00 O2 Sat by Pulse Oximetry (%) 100 09/01/18 21:00 Constitutional: Yes: Calm Cardiovascular: Yes: Regular Rate and Rhythm Respiratory: Yes: Other (decreased breath sounds bilaterally, no active wheezing or rales) Gastrointestinal: Yes: Soft, Abdomen, Obese Edema: No Neurological: Yes: Alert, Oriented Labs: CBC, BMP 09/01/18 05:50 09/01/18 05:50 INR, PTT INR 3.65 (0.83-1.09) H 09/01/18 05:50 Laboratory Tests 08/31/18 09/01/18 09/01/18 13:24 05:50 05:50 WBC 14.4 H Hgb 8.2 L Plt Count 209 D INR 3.65 H Stool Occult Blood Positive Assessment/Plan IMP: Hx PE on warfarin Supratherapeutic INR Anemia- chronic w/ guaiac + stool COPD REC: 1. Hold coumadin as INR remains supratherapeutic 2. Follow H/H 3. Anemia work up per PMD; GI f/u 4. Can switch to oral diuretics
[2018-09-02] MEDS ORDERED: PT OWN MED DRAWER 7, Y5N ONE ×2 (09:15→20:55)
[2018-09-02] MEDS: LOSARTAN POTASSIUM 50 MG TABLET (FP) PO SCH (09:18)
[2018-09-02] MEDS: NIFEdipine E.R. 30 MG TABLET (FP) PO SCH (09:18)
[2018-09-02] MEDS: FERROUS SO4 325 MG TABLET (FP) PO SCH ×3 (09:18→18:22)
[2018-09-02] MEDS: GABAPENTIN 100 MG CAPSULE (FP) PO SCH ×2 (09:18→21:01)
[2018-09-02] MEDS: FUROSEMIDE 40 MG/4 ML INJECTABLE VIAL IVPUSH SCH (09:19)
[2018-09-02] MEDS: ACETAMINOPHEN 325 MG TABLET (FP) PO SCH ×2 (09:19→22:41)
[2018-09-02] MEDS: TIOTROPIUM BROMIDE 2.5 MCG (SPIRIVA) RESPIMAT INHALER IH SCH (09:20)
[2018-09-02] MEDS: BUDESONIDE/FORMETEROL FUMARATE 160/4.5 mcg INHALER IH SCH ×2 (09:20→21:01)
[2018-09-02] MEDS: POLYETHYLENE GLYCOL 3350 255 GM BTL PO SCH (09:23)
--- NOTE | 2018-09-02 13:53 | CON.ID ---
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: Yes: CVA Cardio/Vascular: Yes: CHF (chronic diastolic), HTN, Hyperlipdemia Pulmonary: Yes: COPD, O2 Dependent, Pulmonary Embolus, Other (pulmonary HTN) ...: No - Alcohol/Substance Use Hx Alcohol Use: No - Smoking History Smoking history: Former smoker Have you smoked in the past 12 months: No Aproximately how many cigarettes per day: 20 If you are a former smoker, when did you quit?: 1998 - Social History Usual Living Arrangement: Alone History of Recent Travel: No Home Medications - Allergies Allergies/Adverse Reactions: Allergies Allergy/AdvReac Type Severity Reaction Status Date / Time No Known Allergies Allergy Verified 01/08/18 19:57 - Home Medications Home Medications: Ambulatory Orders Acetaminophen [Tylenol] 650 mg PO BID 01/08/18 Albuterol 0.083% Nebulizer Claudia [Ventolin 0.083% Nebulizer Soln -] 1 neb NEB Q4H PRN 01/08/18 Cyclosporine [Restasis] 1 drop OU BID 01/08/18 Ferrous Sulfate [Feosol] 325 mg PO DAILY 01/08/18 Insulin Glargine,Hum.rec.anlog [Lantus Solostar] 10 unit SQ DAILY 01/08/18 Meclizine HCl 12.5 mg PO DAILY 01/08/18 Nifedipine ER [Procardia XL -] 30 mg PO DAILY 01/08/18 Polyethylene Glycol 3350 [Glycolax] 17 gm PO DAILY 01/08/18 Rosuvastatin Calcium [Crestor] 5 mg PO HS 01/08/18 Sennosides [Natural Laxative] 2 tab PO HS 01/08/18 Warfarin Na [Coumadin -] 3.5 mg PO HS 01/08/18 Furosemide [Lasix -] 40 mg PO BID 08/31/18 Gabapentin 200 mg PO TID 08/31/18 Losartan Potassium 100 mg PO DAILY 08/31/18 Sitagliptin Phosphate [Januvia] 50 mg PO DAILY 08/31/18 Warfarin Na [Coumadin -] 3 mg PO DAILY@1800 08/31/18 Albuterol 0.083% Nebulizer Claudia [Ventolin 0.083% Nebulizer Soln -] 1 amp NEB DAILY 09/01/18 Budesonide/Formeterol Fumarate [SYMBICORT 160/4.5mcg -] 2 inh PO BID 09/01/18 Cholecalciferol (Vitamin D3) [Decara] 50,000 unit PO MONTHLY 09/01/18 Fluticasone Prop 0.05% Nasal [Flonase -] 1 spray NS DAILY 09/01/18 Levalbuterol Tartrate [Xopenex Hfa] 2 puff IH Q4H PRN 09/01/18 Menthol/Zinc Oxide [Calmoseptine Ointment] 1 applic TP DAILY 09/01/18 Polyvinyl Alcohol [Artificial Tears] 1 drop OU BID 09/01/18 Tiotropium [place] [Spiriva Respimat] 2 puff IH DAILY 09/01/18 Physical Exam Vital Signs: Vital Signs Temperature 98.3 F 09/02/18 13:49 Pulse Rate 89 09/02/18 13:49 Respiratory Rate 20 09/02/18 13:49 Blood Pressure 115/58 L 09/02/18 13:49 O2 Sat by Pulse Oximetry (%) 96 09/02/18 09:00
[2018-09-02 14:01] LABS: BASO % 0.6 % (0-2.0); EOS % 0.9 % (0-4.5); HEMATOCRIT 27.6 % (32.4-45.2); HEMOGLOBIN 8.3 GM/dL (10.7-15.3); LYMPH % 14.4 % (8-40); MCH 25.5 pg (25.7-33.7); MEAN CELL VOLUME 84.9 fl (80-96); MEAN PLT VOLUME 8.2 fl (7.5-11.1); MONO % 6.5 % (3.8-10.2); NEUT % 77.6 % (42.8-82.8); PLATELET COUNT 224 K/MM3 (134-434); RBC 3.25 M/mm3 (3.60-5.2); RDW 15.3 % (11.6-15.6); WHITE BLOOD COUNT 13.2 K/mm3 (4.0-10.0)
--- NOTE | 2018-09-02 14:24 | PN ---
Progress Note (short form) - Note Progress Note: More comfortable today. Saturation 96% on 3 L NC O2. Intake & Output 08/30/18 08/31/18 09/01/18 09/02/18 23:59 23:59 23:59 23:59 Intake Total 550 100 Balance 550 100 Weight 313 lb 313 lb Last Vital Signs Temp Pulse Resp BP Pulse Ox 98.3 F 89 20 115/58 L 96 09/02/18 13:49 09/02/18 13:49 09/02/18 13:49 09/02/18 13:49 09/02/18 09:00 Active Medications Acetaminophen (Tylenol -) 1,300 mg PO BID [facility] Last Admin: 09/02/18 09:19 Dose: 1,300 mg Albuterol Sulfate (Ventolin 0.083% Nebulizer Soln -) 1 amp NEB Q4H PRN PRN Reason: SHORT OF BREATH/WHEEZING Last Admin: 09/02/18 07:34 Dose: 1 amp Artificial Tears (Artificial Tears) 1 drop OU BID PRN PRN Reason: DRY EYES Budesonide/Formoterol Fumarate (Symbicort 160/4.5mcg -) 2 puff IH BID [facility] Last Admin: 09/02/18 09:20 Dose: 2 puff Ferrous Sulfate (Feosol -) 325 mg PO TIDCM [facility] Last Admin: 09/02/18 13:32 Dose: 325 mg Furosemide (Lasix Injection -) 40 mg IVPUSH DAILY [facility] Last Admin: 09/02/18 09:19 Dose: 40 mg Gabapentin (Neurontin -) 200 mg PO BID [facility] Last Admin: 09/02/18 09:18 Dose: 200 mg Piperacillin Sod/Tazobactam (Sod 2.25 gm/ Dextrose) 50 mls @ 100 mls/hr IVPB Q8H-IV [facility]; Protocol Insulin Aspart (Novolog Vial Sliding Scale -) 1 vial SQ ACHS [facility]; Protocol Last Admin: 09/02/18 12:47 Dose: Not Given Insulin Detemir (Levemir Vial) 10 units SQ DAILY@0700 [facility] Last Admin: 09/02/18 06:06 Dose: 10 units Losartan Potassium (Cozaar -) 100 mg PO DAILY [facility] Last Admin: 09/02/18 09:18 Dose: 100 mg Meclizine HCl (Antivert -) 12.5 mg PO BID PRN PRN Reason: VERTIGO Nifedipine (Procardia Xl -) 30 mg PO DAILY [facility] Last Admin: 09/02/18 09:18 Dose: 30 mg Non-Formulary Medication (Cyclosporine [Restasis]) 0.5 each OU BID [facility] Polyethylene Glycol (Miralax (For Bowel Prep) -) 17 gm PO DAILY [facility] Last Admin: 09/02/18 09:23 Dose: 17 gm Rosuvastatin Calcium (Crestor -) 5 mg PO [facility] Last Admin: 09/01/18 21:43 Dose: 5 mg Senna (Senna -) 2 tab PO HS [facility] Last Admin: 09/01/18 21:43 Dose: 2 tab Sitagliptin Phosphate (Januvia -) 50 mg PO DAILY@0700 [facility] Last Admin: 09/02/18 06:06 Dose: 50 mg Tiotropium [place] (Spiriva Respimat) 2 puff IH DAILY [facility] Last Admin: 09/02/18 09:20 Dose: 2 puff Constitutional: Yes: NAD Cardiovascular: Yes: Regular Rate and Rhythm Respiratory: Yes: diminished at the bases, (-) wheezing Gastrointestinal: Yes: Soft, Abdomen, Obese Edema: No Neurological: Yes: Alert, Oriented Labs: Laboratory Results - last 24 hr 09/01/18 09/01/18 09/02/18 17:06 21:46 06:04 WBC RBC Hgb Hct MCV MCH MCHC RDW Plt Count MPV Absolute Neuts (auto) Neutrophils % Lymphocytes % Monocytes % Eosinophils % Basophils % Nucleated RBC % POC Glucometer 156 141 113 09/02/18 09/02/18 11:10 13:35 WBC 13.2 H RBC 3.25 L Hgb 8.3 L Hct 27.6 L MCV 84.9 MCH 25.5 L MCHC 30.0 L RDW 15.3 Plt Count 224 MPV 8.2 Absolute Neuts (auto) 10.3 H Neutrophils % 77.6 Lymphocytes % 14.4 D Monocytes % 6.5 Eosinophils % 0.9 D Basophils % 0.6 Nucleated RBC % 0 POC Glucometer 106 Problem List - Problems (1) CKD (chronic kidney disease) Code(s): N18.9 - CHRONIC KIDNEY DISEASE, UNSPECIFIED (2) Chronic diastolic (congestive) heart failure Code(s): I50.32 - CHRONIC DIASTOLIC (CONGESTIVE) HEART FAILURE (3) Supratherapeutic INR Code(s): R79.1 - ABNORMAL COAGULATION PROFILE (4) Symptomatic anemia Code(s): D64.9 - ANEMIA, UNSPECIFIED (5) Acute on chronic diastolic (congestive) heart failure Code(s): I50.33 - ACUTE ON CHRONIC DIASTOLIC (CONGESTIVE) HEART FAILURE (6) Anemia Code(s): D64.9 - ANEMIA, UNSPECIFIED Qualifiers: Anemia type: unspecified type Qualified Code(s): D64.9 - Anemia, unspecified (7) CHF (congestive heart failure) Code(s): I50.9 - HEART FAILURE, UNSPECIFIED (8) Chronic respiratory failure with hypoxia, on home O2 therapy Code(s): J96.11 - CHRONIC RESPIRATORY FAILURE WITH HYPOXIA; Z99.81 - DEPENDENCE ON SUPPLEMENTAL OXYGEN (9) DVT (deep venous thrombosis) Code(s): I82.409 - ACUTE EMBOLISM AND THOMBOS UNSP DEEP VN UNSP LOWER EXTREMITY (10) Diabetes Code(s): E11.9 - TYPE 2 DIABETES MELLITUS WITHOUT COMPLICATIONS (11) Hypertension Code(s): I10 - ESSENTIAL (PRIMARY) HYPERTENSION (12) snf current use of anticoagulant Code(s): Z79.01 - [employer]DE [employer]OR (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 OF 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 (13) Morbid obesity Code(s): E66.01 - MORBID (SEVERE) OBESITY DUE TO EXCESS CALORIES (14) Pulmonary embolus Code(s): I26.99 - OTHER PULMONARY EMBOLISM WITHOUT ACUTE COR PULMONALE (15) Pulmonary hypertension Code(s): I27.2 - OTHER SECONDARY PULMONARY HYPERTENSION * DO NOT USE * (16) SOB (shortness of breath) Code(s): R06.02 - SHORTNESS OF BREATH IMP SYMPTOMATIC ANEMIA COPD O2 DEPENDENT WITH CHRONIC HYPOXEMIC RESPIRATORY FAILURE CHRONIC THROMBOEMBOLIC PULMONARY HTN SUPRA-THERAPEUTIC INR DIASTOLIC HF HTN MORBID OBESITY DM PLAN O2 INHALED BRONCHODILATORS NORMAL TRANSFUSION THRESHOLD MONITOR INR GI W/U PER GI MONITOR H+H LASIX SYMBICORT BID SPIRIVA OD Dr Waters
[2018-09-02] MEDS ORDERED: DEXTROSE 5%-WATER - 50 ML IVPB ONE ×2 (14:28→18:00)
[2018-09-02] MEDS ORDERED: PIPERACILLIN/TAZOBACTAM 2.25 GM VIAL IVPB ONE ×2 (14:28→18:00)
[2018-09-02] MEDS: PIPERACILLIN/TAZOB 2.25 GM 2.25 GM in DEXTROSE 5%-WATER - 50 ML IVPB SCH ×2 (14:36→18:22)
[2018-09-02 14:55] LABS: ALBUMIN 2.9 g/dl (3.4-5.0); ALK PHOS 60 U/L (45-117); ANION GAP 4 MMOL/L (8-16); BILIRUBIN,TOTAL 0.6 mg/dL (0.2-1); BLOOD UREA NITROGEN 36 mg/dL (7-18); CALCIUM 8.2 mg/dL (8.5-10.1); CHLORIDE 95 mmol/L (98-107); CO2 42 mmol/L (21-32); CREATININE 1.5 mg/dL (0.55-1.3); GLUCOSE,RANDOM 144 mg/dL (74-106); POTASSIUM 3.9 mmol/L (3.5-5.1); SGOT/AST 17 U/L (15-37); SGPT/ALT 28 U/L (13-61); SODIUM 141 mmol/L (136-145); TOT PROT 5.2 g/dl (6.4-8.2)
--- NOTE | 2018-09-02 17:28 | PN ---
Progress Note, Physician History of Present Illness: Pt is concerned stating that for the past 6 months she has been able to walk/ stand - Current Medication List Current Medications: Active Medications Acetaminophen (Tylenol -) 1,300 mg PO BID [facility] Last Admin: 09/02/18 09:19 Dose: 1,300 mg Albuterol Sulfate (Ventolin 0.083% Nebulizer Soln -) 1 amp NEB Q4H PRN PRN Reason: SHORT OF BREATH/WHEEZING Last Admin: 09/02/18 07:34 Dose: 1 amp Artificial Tears (Artificial Tears) 1 drop OU BID PRN PRN Reason: DRY EYES Budesonide/Formoterol Fumarate (Symbicort 160/4.5mcg -) 2 puff IH BID [facility] Last Admin: 09/02/18 09:20 Dose: 2 puff Ferrous Sulfate (Feosol -) 325 mg PO TIDCM [facility] Last Admin: 09/02/18 13:32 Dose: 325 mg Furosemide (Lasix Injection -) 40 mg IVPUSH DAILY [facility] Last Admin: 09/02/18 09:19 Dose: 40 mg Gabapentin (Neurontin -) 200 mg PO BID [facility] Last Admin: 09/02/18 09:18 Dose: 200 mg Piperacillin Sod/Tazobactam (Sod 2.25 gm/ Dextrose) 50 mls @ 100 mls/hr IVPB Q8H-IV [facility]; Protocol Last Admin: 09/02/18 14:36 Dose: 100 mls/hr Insulin Aspart (Novolog Vial Sliding Scale -) 1 vial SQ ACHS [facility]; Protocol Last Admin: 09/02/18 12:47 Dose: Not Given Insulin Detemir (Levemir Vial) 10 units SQ DAILY@0700 [facility] Last Admin: 09/02/18 06:06 Dose: 10 units Losartan Potassium (Cozaar -) 100 mg PO DAILY [facility] Last Admin: 09/02/18 09:18 Dose: 100 mg Meclizine HCl (Antivert -) 12.5 mg PO BID PRN PRN Reason: VERTIGO Nifedipine (Procardia Xl -) 30 mg PO DAILY [facility] Last Admin: 09/02/18 09:18 Dose: 30 mg Non-Formulary Medication (Cyclosporine [Restasis]) 0.5 each OU BID [facility] Polyethylene Glycol (Miralax (For Bowel Prep) -) 17 gm PO DAILY [facility] Last Admin: 09/02/18 09:23 Dose: 17 gm Rosuvastatin Calcium (Crestor -) 5 mg PO [facility] Last Admin: 09/01/18 21:43 Dose: 5 mg Senna (Senna -) 2 tab PO [facility] Last Admin: 09/01/18 21:43 Dose: 2 tab Sitagliptin Phosphate (Januvia -) 50 mg PO DAILY@0700 [facility] Last Admin: 09/02/18 06:06 Dose: 50 mg Tiotropium [place] (Spiriva Respimat) 2 puff IH DAILY [facility] Last Admin: 09/02/18 09:20 Dose: 2 puff - Objective Vital Signs: Vital Signs Temperature 98.3 F 09/02/18 13:49 Pulse Rate 89 09/02/18 13:49 Respiratory Rate 20 09/02/18 13:49 Blood Pressure 115/58 L 09/02/18 13:49 O2 Sat by Pulse Oximetry (%) 96 09/02/18 09:00 Constitutional: Yes: Obese Eyes: Yes: Other (Rt conjunctival hemorrhage) Neck: Yes: WNL, Supple Cardiovascular: Yes: WNL, Regular Rate and Rhythm Respiratory: Yes: Diminished Gastrointestinal: Yes: WNL, Normal Bowel Sounds, Soft, Abdomen, Obese Edema: LLE: Trace, RLE: Trace Labs: CBC, BMP 09/02/18 13:35 09/02/18 13:35 INR, PTT INR 3.65 (0.83-1.09) H 09/01/18 05:50 Problem List - Problems (1) Symptomatic anemia Assessment/Plan: Pt transfused total of 2 units PRBC's Stool hemoccult positive GI/heme consults Monitor H/H Cont ferrous sulfate Code(s): D64.9 - ANEMIA, UNSPECIFIED (2) UTI (urinary tract infection) Assessment/Plan: Lactose fermenting negative bacilli Cont IV zosyn Follow cultures ID consult Code(s): N39.0 - URINARY TRACT INFECTION, SITE NOT SPECIFIED (3) Unsteady gait Assessment/Plan: Unclear etiology Multifactorial Due to chronic steroid use/atrophy Pt has been bedbound PT eval Neuro consult Code(s): R26.81 - UNSTEADINESS ON FEET (4) Supratherapeutic INR Assessment/Plan: Pt on coumadin due to h/o PE/DVT Monitor PT/INR and restart once in therapeutic range Code(s): R79.1 - ABNORMAL COAGULATION PROFILE (5) Chronic diastolic (congestive) heart failure Assessment/Plan: Cont IV lasix Possible change to po lasix in am Monitor electrolytes Code(s): I50.32 - CHRONIC DIASTOLIC (CONGESTIVE) HEART FAILURE (6) Hypertension Assessment/Plan: Cont losartan/procardia Code(s): I10 - ESSENTIAL (PRIMARY) HYPERTENSION (7) COPD (chronic obstructive pulmonary disease) Assessment/Plan: Cont spireva/symbicort Cont duoneb nebulizer Code(s): J44.9 - CHRONIC OBSTRUCTIVE PULMONARY DISEASE, UNSPECIFIED (8) DVT (deep venous thrombosis) Code(s): I82.409 - ACUTE EMBOLISM AND THOMBOS UNSP DEEP VN UNSP LOWER EXTREMITY (9) HLD (hyperlipidemia) Assessment/Plan: Cont crestor Code(s): E78.5 - HYPERLIPIDEMIA, UNSPECIFIED (10) History of pulmonary embolism Code(s): Z86.711 - PERSONAL HISTORY OF PULMONARY EMBOLISM (11) CKD (chronic kidney disease) Code(s): N18.9 - CHRONIC KIDNEY DISEASE, UNSPECIFIED (12) Diabetes Assessment/Plan: Steroid induced Cont levemir and sliding scale w/ coverage Code(s): E11.9 - TYPE 2 DIABETES MELLITUS WITHOUT COMPLICATIONS (13) Coronary artery disease Code(s): I25.10 - ATHSCL HEART DISEASE OF [place] CORONARY ARTERY W/O ANG PCTRS (14) Morbid obesity Code(s): E66.01 - MORBID (SEVERE) OBESITY DUE TO EXCESS CALORIES
[2018-09-02] MEDS: ROSUVASTATIN CA 5 MG TABLET (FP) PO SCH (21:01)
[2018-09-02] MEDS: SENNOSIDES 8.6MG TABLET (FP) PO SCH (21:01)
[2018-09-03] MEDS ORDERED: PIPERACILLIN/TAZOBACTAM 2.25 GM VIAL IVPB ONE ×3 (01:47→16:25)
[2018-09-03] MEDS ORDERED: DEXTROSE 5%-WATER - 50 ML IVPB ONE ×3 (01:47→16:26)
[2018-09-03] MEDS: PIPERACILLIN/TAZOB 2.25 GM 2.25 GM in DEXTROSE 5%-WATER - 50 ML IVPB SCH ×3 (01:50→17:11)
[2018-09-03] MEDS: INSULIN (LEVEMIR) 100 UNITS/ML UNITS SQ SCH (06:39)
[2018-09-03] MEDS: sitaGLIPtin PHOSPHATE 50 MG TABLET PO SCH (06:39)
[2018-09-03] MEDS: INSULIN SLIDING SCALE (NOVOLOG) 1 VIAL SQ SCH ×4 (06:39→23:10)
[2018-09-03 07:23] LABS: BASO % 0.7 % (0-2.0); EOS % 0.8 % (0-4.5); HEMOGLOBIN 8.3 GM/dL (10.7-15.3); LYMPH % 15.8 % (8-40); MCH 25.1 pg (25.7-33.7); MCHC 29.7 g/dl (32.0-36.0); MEAN CELL VOLUME 84.7 fl (80-96); MEAN PLT VOLUME 8.1 fl (7.5-11.1); MONO % 4.9 % (3.8-10.2); NEUT % 77.8 % (42.8-82.8); PLATELET COUNT 186 K/MM3 (134-434); RBC 3.31 M/mm3 (3.60-5.2); RDW 14.7 % (11.6-15.6); WHITE BLOOD COUNT 13.9 K/mm3 (4.0-10.0)
[2018-09-03 08:19] LABS: ALK PHOS 54 U/L (45-117); ANION GAP 7 MMOL/L (8-16); BILIRUBIN,TOTAL 0.6 mg/dL (0.2-1); BLOOD UREA NITROGEN 35 mg/dL (7-18); CALCIUM 8.1 mg/dL (8.5-10.1); CHLORIDE 97 mmol/L (98-107); CO2 39 mmol/L (21-32); CREATININE 1.4 mg/dL (0.55-1.3); GLUCOSE,RANDOM 88 mg/dL (74-106); POTASSIUM 4.1 mmol/L (3.5-5.1); SGOT/AST 12 U/L (15-37); SGPT/ALT 26 U/L (13-61); SODIUM 143 mmol/L (136-145); TOT PROT 5.4 g/dl (6.4-8.2)
[2018-09-03] MEDS ORDERED: PT OWN MED DRAWER 7, Y5N ONE ×4 (08:46→22:04)
[2018-09-03] MEDS: FUROSEMIDE 40 MG/4 ML INJECTABLE VIAL IVPUSH SCH (09:12)
[2018-09-03] MEDS: GABAPENTIN 100 MG CAPSULE (FP) PO SCH ×2 (09:15→21:59)
[2018-09-03] MEDS: ACETAMINOPHEN 325 MG TABLET (FP) PO SCH ×2 (09:16→22:06)
[2018-09-03] MEDS: FERROUS SO4 325 MG TABLET (FP) PO SCH ×2 (09:17→12:28)
[2018-09-03] MEDS: BUDESONIDE/FORMETEROL FUMARATE 160/4.5 mcg INHALER IH SCH ×2 (09:19→23:11)
[2018-09-03] MEDS: POLYETHYLENE GLYCOL 3350 255 GM BTL PO SCH (09:19)
[2018-09-03] MEDS: TIOTROPIUM BROMIDE 2.5 MCG (SPIRIVA) RESPIMAT INHALER IH SCH (09:20)
[2018-09-03 09:23] LABS: INR 1.59 (0.83-1.09); PROTHROMBIN TIME (PATIENT) 18.9 SEC (9.7-13.0)
--- NOTE | 2018-09-03 09:29 | PN ---
Progress Note, Physician Chief Complaint: TELE: NSR, PVCs No chest pain or SOB - Current Medication List Current Medications: Active Medications Acetaminophen (Tylenol -) 1,300 mg PO BID [facility] Last Admin: 09/03/18 09:16 Dose: 1,300 mg Albuterol Sulfate (Ventolin 0.083% Nebulizer Soln -) 1 amp NEB Q4H PRN PRN Reason: SHORT OF BREATH/WHEEZING Last Admin: 09/02/18 07:34 Dose: 1 amp Artificial Tears (Artificial Tears) 1 drop OU BID PRN PRN Reason: DRY EYES Budesonide/Formoterol Fumarate (Symbicort 160/4.5mcg -) 2 puff IH BID [facility] Last Admin: 09/03/18 09:19 Dose: 2 puff Ferrous Sulfate (Feosol -) 325 mg PO TIDCM [facility] Last Admin: 09/03/18 09:17 Dose: 325 mg Furosemide (Lasix Injection -) 40 mg IVPUSH DAILY [facility] Last Admin: 09/03/18 09:12 Dose: 40 mg Gabapentin (Neurontin -) 200 mg PO BID [facility] Last Admin: 09/03/18 09:15 Dose: 200 mg Piperacillin Sod/Tazobactam (Sod 2.25 gm/ Dextrose) 50 mls @ 100 mls/hr IVPB Q8H-IV [facility]; Protocol Last Admin: 09/03/18 09:08 Dose: 100 mls/hr Insulin Aspart (Novolog Vial Sliding Scale -) 1 vial SQ ACHS [facility]; Protocol Last Admin: 09/03/18 06:39 Dose: Not Given Insulin Detemir (Levemir Vial) 10 units SQ DAILY@0700 [facility] Last Admin: 09/03/18 06:39 Dose: 10 units Losartan Potassium (Cozaar -) 100 mg PO DAILY [facility] Last Admin: 09/02/18 09:18 Dose: 100 mg Meclizine HCl (Antivert -) 12.5 mg PO BID PRN PRN Reason: VERTIGO Nifedipine (Procardia Xl -) 30 mg PO DAILY [facility] Last Admin: 09/02/18 09:18 Dose: 30 mg Non-Formulary Medication (Cyclosporine [Restasis]) 0.5 each OU BID [facility] Polyethylene Glycol (Miralax (For Bowel Prep) -) 17 gm PO DAILY [facility] Last Admin: 09/03/18 09:19 Dose: Not Given Rosuvastatin Calcium (Crestor -) 5 mg PO [facility] Last Admin: 09/02/18 21:01 Dose: 5 mg Senna (Senna -) 2 tab PO [facility] Last Admin: 09/02/18 21:01 Dose: 2 tab Sitagliptin Phosphate (Januvia -) 50 mg PO DAILY@0700 [facility] Last Admin: 09/03/18 06:39 Dose: 50 mg Tiotropium [place] (Spiriva Respimat) 2 puff IH DAILY [facility] Last Admin: 09/03/18 09:20 Dose: 2 puff - Objective Vital Signs: Vital Signs Temperature 98.6 F 09/03/18 06:38 Pulse Rate 88 09/03/18 06:38 Respiratory Rate 16 09/03/18 06:38 Blood Pressure 133/60 09/03/18 06:38 O2 Sat by Pulse Oximetry (%) 97 09/02/18 21:00 Constitutional: Yes: Calm Cardiovascular: Yes: Regular Rate and Rhythm Respiratory: Yes: Other (decreased breath sounds b/l) Gastrointestinal: Yes: Soft, Abdomen, Obese Edema: No Neurological: Yes: Alert, Oriented Labs: CBC, BMP 09/03/18 06:00 09/03/18 06:00 INR, PTT INR 1.59 (0.83-1.09) H 09/03/18 06:00 Laboratory Tests 08/31/18 09/03/18 09/03/18 13:24 06:00 06:00 WBC 13.9 H Hgb 8.3 L Plt Count 186 INR 1.59 H Sodium Potassium BUN Creatinine Stool Occult Blood Positive 09/03/18 06:00 WBC Hgb Plt Count INR Sodium 143 Potassium 4.1 BUN 35 H Creatinine 1.4 H Stool Occult Blood - ....Imaging EKG: Image Reviewed Assessment/Plan IMP: Chronic anemia COPD Hx DVT/PE UTI REC: 1. Supplimental O2 2. Rx UTI as per PMD 3. INR now < 2- coumadin held several days for supratherapeutic INR. Resume Coumadin for INR goal 2-3
[2018-09-03] MEDS: LOSARTAN POTASSIUM 50 MG TABLET (FP) PO SCH (10:35)
[2018-09-03] MEDS: NIFEdipine E.R. 30 MG TABLET (FP) PO SCH (10:35)
--- NOTE | 2018-09-03 11:11 | PN ---
Progress Note, Physician History of Present Illness: patient stable uti awaiting for cx reports and identification of the organism c/o of constipation - Current Medication List Current Medications: Active Medications Acetaminophen (Tylenol -) 1,300 mg PO BID [facility] Last Admin: 09/03/18 09:16 Dose: 1,300 mg Albuterol Sulfate (Ventolin 0.083% Nebulizer Soln -) 1 amp NEB Q4H PRN PRN Reason: SHORT OF BREATH/WHEEZING Last Admin: 09/02/18 07:34 Dose: 1 amp Artificial Tears (Artificial Tears) 1 drop OU BID PRN PRN Reason: DRY EYES Budesonide/Formoterol Fumarate (Symbicort 160/4.5mcg -) 2 puff IH BID [facility] Last Admin: 09/03/18 09:19 Dose: 2 puff Ferrous Sulfate (Feosol -) 325 mg PO TIDCM [facility] Last Admin: 09/03/18 09:17 Dose: 325 mg Furosemide (Lasix Injection -) 40 mg IVPUSH DAILY [facility] Last Admin: 09/03/18 09:12 Dose: 40 mg Gabapentin (Neurontin -) 200 mg PO BID [facility] Last Admin: 09/03/18 09:15 Dose: 200 mg Piperacillin Sod/Tazobactam (Sod 2.25 gm/ Dextrose) 50 mls @ 100 mls/hr IVPB Q8H-IV [facility]; Protocol Last Admin: 09/03/18 09:08 Dose: 100 mls/hr Insulin Aspart (Novolog Vial Sliding Scale -) 1 vial SQ ACHS [facility]; Protocol Last Admin: 09/03/18 06:39 Dose: Not Given Insulin Detemir (Levemir Vial) 10 units SQ DAILY@0700 [facility] Last Admin: 09/03/18 06:39 Dose: 10 units Losartan Potassium (Cozaar -) 100 mg PO DAILY [facility] Last Admin: 09/03/18 10:35 Dose: 100 mg Meclizine HCl (Antivert -) 12.5 mg PO BID PRN PRN Reason: VERTIGO Nifedipine (Procardia Xl -) 30 mg PO DAILY [facility] Last Admin: 09/03/18 10:35 Dose: 30 mg Non-Formulary Medication (Cyclosporine [Restasis]) 0.5 each OU BID [facility] Polyethylene Glycol (Miralax (For Bowel Prep) -) 17 gm PO DAILY [facility] Last Admin: 09/03/18 09:19 Dose: Not Given Rosuvastatin Calcium (Crestor -) 5 mg PO [facility] Last Admin: 09/02/18 21:01 Dose: 5 mg Senna (Senna -) 2 tab PO [facility] Last Admin: 09/02/18 21:01 Dose: 2 tab Sitagliptin Phosphate (Januvia -) 50 mg PO DAILY@0700 [facility] Last Admin: 09/03/18 06:39 Dose: 50 mg Tiotropium [place] (Spiriva Respimat) 2 puff IH DAILY [facility] Last Admin: 09/03/18 09:20 Dose: 2 puff Warfarin Sodium (Coumadin -) 2.5 mg PO DAILY@1800 [facility] - Objective Vital Signs: Vital Signs Temperature 98.6 F 09/03/18 06:38 Pulse Rate 88 09/03/18 06:38 Respiratory Rate 16 09/03/18 06:38 Blood Pressure 133/60 09/03/18 06:38 O2 Sat by Pulse Oximetry (%) 97 09/02/18 21:00 Constitutional: Yes: No Distress, Calm, Obese Cardiovascular: Yes: Regular Rate and Rhythm Respiratory: Yes: Regular, CTA Bilaterally Gastrointestinal: Yes: Normal Bowel Sounds, Soft Musculoskeletal: Yes: WNL Extremities: Yes: WNL Neurological: Yes: Alert, Oriented Psychiatric: Yes: Alert, Oriented Labs: CBC, BMP 09/03/18 06:00 09/03/18 06:00 INR, PTT INR 1.59 (0.83-1.09) H 09/03/18 06:00 Assessment/Plan Problem List - Problems (1) Symptomatic anemia Code(s): D64.9 - ANEMIA, UNSPECIFIED (2) UTI (urinary tract infection) Code(s): N39.0 - URINARY TRACT INFECTION, SITE NOT SPECIFIED (3) Unsteady gait Code(s): R26.81 - UNSTEADINESS ON FEET (4) Supratherapeutic INR Code(s): R79.1 - ABNORMAL COAGULATION PROFILE (5) Chronic diastolic (congestive) heart failure Code(s): I50.32 - CHRONIC DIASTOLIC (CONGESTIVE) HEART FAILURE (6) Hypertension Code(s): I10 - ESSENTIAL (PRIMARY) HYPERTENSION (7) COPD (chronic obstructive pulmonary disease) Code(s): J44.9 - CHRONIC OBSTRUCTIVE PULMONARY DISEASE, UNSPECIFIED (8) DVT (deep venous thrombosis) Code(s): I82.409 - ACUTE EMBOLISM AND THOMBOS UNSP DEEP VN UNSP LOWER EXTREMITY (9) HLD (hyperlipidemia) Assessment/Plan: Cont crestor Code(s): E78.5 - HYPERLIPIDEMIA, UNSPECIFIED (10) History of pulmonary embolism Code(s): Z86.711 - PERSONAL HISTORY OF PULMONARY EMBOLISM (11) CKD (chronic kidney disease) Code(s): N18.9 - CHRONIC KIDNEY DISEASE, UNSPECIFIED (12) Diabetes Code(s): E11.9 - TYPE 2 DIABETES MELLITUS WITHOUT COMPLICATIONS (13) Coronary artery disease Code(s): I25.10 - ATHSCL HEART DISEASE OF [place] CORONARY ARTERY W/O ANG PCTRS (14) Morbid obesity Code(s): E66.01 - MORBID (SEVERE) OBESITY DUE TO EXCESS CALORIES plan we will continue current abx await for identification of the organism patient doing well constipation rest as per the team
--- NOTE | 2018-09-03 13:20 | PN ---
Progress Note, Physician History of Present Illness: pulmonary alert,no distress,-cp,dyspneic with exertion - Current Medication List Current Medications: Active Medications Acetaminophen (Tylenol -) 1,300 mg PO BID [facility] Last Admin: 09/03/18 09:16 Dose: 1,300 mg Albuterol Sulfate (Ventolin 0.083% Nebulizer Soln -) 1 amp NEB Q4H PRN PRN Reason: SHORT OF BREATH/WHEEZING Last Admin: 09/02/18 07:34 Dose: 1 amp Artificial Tears (Artificial Tears) 1 drop OU BID PRN PRN Reason: DRY EYES Budesonide/Formoterol Fumarate (Symbicort 160/4.5mcg -) 2 puff IH BID [facility] Last Admin: 09/03/18 09:19 Dose: 2 puff Docusate Sodium (Colace -) 100 mg PO TID [facility] Ferrous Sulfate (Feosol -) 325 mg PO TIDCM [facility] Last Admin: 09/03/18 12:28 Dose: 325 mg Furosemide (Lasix Injection -) 40 mg IVPUSH DAILY [facility] Last Admin: 09/03/18 09:12 Dose: 40 mg Gabapentin (Neurontin -) 200 mg PO BID [facility] Last Admin: 09/03/18 09:15 Dose: 200 mg Piperacillin Sod/Tazobactam (Sod 2.25 gm/ Dextrose) 50 mls @ 100 mls/hr IVPB Q8H-IV [facility]; Protocol Last Admin: 09/03/18 09:08 Dose: 100 mls/hr Insulin Aspart (Novolog Vial Sliding Scale -) 1 vial SQ ACHS [facility]; Protocol Last Admin: 09/03/18 11:46 Dose: Not Given Insulin Detemir (Levemir Vial) 10 units SQ DAILY@0700 [facility] Last Admin: 09/03/18 06:39 Dose: 10 units Losartan Potassium (Cozaar -) 100 mg PO DAILY [facility] Last Admin: 09/03/18 10:35 Dose: 100 mg Meclizine HCl (Antivert -) 12.5 mg PO BID PRN PRN Reason: VERTIGO Nifedipine (Procardia Xl -) 30 mg PO DAILY [facility] Last Admin: 09/03/18 10:35 Dose: 30 mg Non-Formulary Medication (Cyclosporine [Restasis]) 0.5 each OU BID [facility] Polyethylene Glycol (Miralax (For Bowel Prep) -) 17 gm PO DAILY [facility] Last Admin: 09/03/18 09:19 Dose: Not Given Rosuvastatin Calcium (Crestor -) 5 mg PO [facility] Last Admin: 09/02/18 21:01 Dose: 5 mg Senna (Senna -) 2 tab PO HS [facility] Last Admin: 09/02/18 21:01 Dose: 2 tab Sitagliptin Phosphate (Januvia -) 50 mg PO DAILY@0700 [facility] Last Admin: 09/03/18 06:39 Dose: 50 mg Tiotropium [place] (Spiriva Respimat) 2 puff IH DAILY [facility] Last Admin: 09/03/18 09:20 Dose: 2 puff Warfarin Sodium (Coumadin -) 2.5 mg PO DAILY@1800 [facility] - Objective Vital Signs: Vital Signs Temperature 98 F 09/03/18 10:00 Pulse Rate 87 09/03/18 10:00 Respiratory Rate 20 09/03/18 10:00 Blood Pressure 119/53 L 09/03/18 10:00 O2 Sat by Pulse Oximetry (%) 97 09/03/18 09:00 Constitutional: Yes: Calm, Obese Eyes: Yes: WNL HENT: Yes: WNL Neck: Yes: WNL Cardiovascular: Yes: Regular Rate and Rhythm, S1, S2 Respiratory: Yes: Diminished Gastrointestinal: Yes: Normal Bowel Sounds, Soft Extremities: Yes: WNL Edema: Yes Labs: CBC, BMP 09/03/18 06:00 09/03/18 06:00 INR, PTT INR 1.59 (0.83-1.09) H 09/03/18 06:00 Problem List - Problems (1) CKD (chronic kidney disease) Code(s): N18.9 - CHRONIC KIDNEY DISEASE, UNSPECIFIED (2) Chronic diastolic (congestive) heart failure Code(s): I50.32 - CHRONIC DIASTOLIC (CONGESTIVE) HEART FAILURE (3) Supratherapeutic INR Code(s): R79.1 - ABNORMAL COAGULATION PROFILE (4) Symptomatic anemia Code(s): D64.9 - ANEMIA, UNSPECIFIED (5) Acute on chronic diastolic (congestive) heart failure Code(s): I50.33 - ACUTE ON CHRONIC DIASTOLIC (CONGESTIVE) HEART FAILURE (6) Anemia Code(s): D64.9 - ANEMIA, UNSPECIFIED Qualifiers: Anemia type: unspecified type Qualified Code(s): D64.9 - Anemia, unspecified (7) CHF (congestive heart failure) Code(s): I50.9 - HEART FAILURE, UNSPECIFIED (8) Chronic respiratory failure with hypoxia, on home O2 therapy Code(s): J96.11 - CHRONIC RESPIRATORY FAILURE WITH HYPOXIA; Z99.81 - DEPENDENCE ON SUPPLEMENTAL OXYGEN (9) DVT (deep venous thrombosis) Code(s): I82.409 - ACUTE EMBOLISM AND THOMBOS UNSP DEEP VN UNSP LOWER EXTREMITY (10) Diabetes Code(s): E11.9 - TYPE 2 DIABETES MELLITUS WITHOUT COMPLICATIONS (11) Hypertension Code(s): I10 - ESSENTIAL (PRIMARY) HYPERTENSION (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 Code(s): Z79.01 - HEAD BUCKER (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 OF 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 (13) Morbid obesity Code(s): E66.01 - MORBID (SEVERE) OBESITY DUE TO EXCESS CALORIES (14) Pulmonary embolus Code(s): I26.99 - OTHER PULMONARY EMBOLISM WITHOUT ACUTE COR PULMONALE (15) Pulmonary hypertension Code(s): I27.2 - OTHER SECONDARY PULMONARY HYPERTENSION * DO NOT USE * (16) SOB (shortness of breath) Code(s): R06.02 - SHORTNESS OF BREATH Assessment/Plan IMP SYMPTOMATIC ANEMIA COPD O2 DEPENDENT WITH CHRONIC HYPOXEMIC RESPIRATORY FAILURE CHRONIC THROMBOEMBOLIC PULMONARY HTN SUPRA-THERAPEUTIC INR DIASTOLIC HF HTN MORBID OBESITY DM PLAN O2 INHALED BRONCHODILATORS NORMAL TRANSFUSION THRESHOLD MONITOR INR GI W/U PER GI MONITOR H+H LASIX PREDNISONE PT IS STEROID DEPENDENT DR FOX Problem List - Problems (1) CKD (chronic kidney disease) Code(s): N18.9 - CHRONIC KIDNEY DISEASE, UNSPECIFIED (2) Chronic diastolic (congestive) heart failure Code(s): I50.32 - CHRONIC DIASTOLIC (CONGESTIVE) HEART FAILURE (3) Supratherapeutic INR Code(s): R79.1 - ABNORMAL COAGULATION PROFILE (4) Symptomatic anemia Code(s): D64.9 - ANEMIA, UNSPECIFIED (5) Acute on chronic diastolic (congestive) heart failure Code(s): I50.33 - ACUTE ON CHRONIC DIASTOLIC (CONGESTIVE) HEART FAILURE (6) Anemia Code(s): D64.9 - ANEMIA, UNSPECIFIED Qualifiers: Anemia type: unspecified type Qualified Code(s): D64.9 - Anemia, unspecified (7) CHF (congestive heart failure) Code(s): I50.9 - HEART FAILURE, UNSPECIFIED (8) Chronic respiratory failure with hypoxia, on home O2 therapy Code(s): J96.11 - CHRONIC RESPIRATORY FAILURE WITH HYPOXIA; Z99.81 - DEPENDENCE ON SUPPLEMENTAL OXYGEN (9) DVT (deep venous thrombosis) Code(s): I82.409 - ACUTE EMBOLISM AND THOMBOS UNSP DEEP VN UNSP LOWER EXTREMITY (10) Diabetes Code(s): E11.9 - TYPE 2 DIABETES MELLITUS WITHOUT COMPLICATIONS (11) Hypertension Code(s): I10 - ESSENTIAL (PRIMARY) HYPERTENSION (12) intermediate current use of anticoagulant Code(s): Z79.01 - HEAD BUCKER (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 OF 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 (13) Morbid obesity Code(s): E66.01 - MORBID (SEVERE) OBESITY DUE TO EXCESS CALORIES (14) Pulmonary embolus Code(s): I26.99 - OTHER PULMONARY EMBOLISM WITHOUT ACUTE COR PULMONALE (15) Pulmonary hypertension Code(s): I27.2 - OTHER SECONDARY PULMONARY HYPERTENSION * DO NOT USE * (16) SOB (shortness of breath) Code(s): R06.02 - SHORTNESS OF BREATH
[2018-09-03] MEDS: predniSONE 20 MG TABLET (UD) PO SCH (14:10)
[2018-09-03] MEDS: DOCUSATE SODIUM 100 MG CAPSULE (FP) PO SCH ×2 (14:10→21:56)
--- NOTE | 2018-09-03 15:53 | PN ---
Progress Note (short form) - Note Progress Note: Patient seen and examined Complains of constipation Breathing improved Last Vital Signs Temp Pulse Resp BP Pulse Ox 98.1 F 83 16 105/43 L 97 09/03/18 14:05 09/03/18 14:05 09/03/18 14:05 09/03/18 14:05 09/03/18 09:00 HEENT: [place], EOM Intact Cor: RSR, No murmurs, No gallops Lungs: scattered rhonchi and poor inspiratory effort Abd: Soft, Normal bowel sounds, No organomegaly, obese Ext:LE edema Skin: No rashes, Integument intact CBC, BMP 09/03/18 06:00 09/03/18 06:00 Current Medications Generic Name Dose Route Start Last Admin Trade Name Freq PRN Reason Stop Dose Admin Acetaminophen 1,300 mg 09/01/18 13:24 09/03/18 09:16 Tylenol - PO 1,300 mg BID [facility] Administration Albuterol Sulfate 1 amp 09/01/18 17:12 09/02/18 07:34 Ventolin 0.083% Nebulizer Soln - NEB 1 amp Q4H PRN Administration SHORT OF BREATH/WHEEZING Artificial Tears 1 drop 09/01/18 12:24 Artificial Tears OU BID PRN DRY EYES Budesonide/Formoterol Fumarate 2 puff 09/01/18 01:00 09/03/18 09:19 Symbicort 160/4.5mcg - I[facility] 2 puff BID [facility] Administration Docusate Sodium 100 mg 09/03/18 14:00 09/03/18 14:10 Colace - PO 100 mg TID [facility] Administration Ferrous Sulfate 325 mg 09/01/18 08:00 09/03/18 12:28 Feosol - PO 325 mg TIDCM [facility] Administration Furosemide 40 mg 09/01/18 10:00 09/03/18 09:12 Lasix Injection - IVPUSH 40 mg DAILY [facility] Administration Gabapentin 200 mg 09/01/18 10:00 09/03/18 09:15 Neurontin - PO 200 mg BID [facility] Administration Piperacillin Sod/Tazobactam 50 mls @ 100 mls/hr 09/02/18 14:00 09/03/18 09:08 Sod 2.25 gm/ Dextrose IVPB 100 mls/hr Q8H-IV [facility] Administration Protocol Insulin Aspart 1 vial 09/01/18 07:00 09/03/18 11:46 Novolog Vial Sliding Scale - SQ Not Given ACHS [facility] Protocol Insulin Detemir 10 units 09/01/18 07:00 09/03/18 06:39 Levemir Vial SQ 10 units DAILY@0700 [facility] Administration Losartan Potassium 100 mg 09/01/18 10:00 09/03/18 10:35 Cozaar - PO 100 mg DAILY [facility] Administration Meclizine HCl 12.5 mg 08/31/18 23:44 Antivert - PO BID PRN [facility] Nifedipine 30 mg 09/01/18 10:00 09/03/18 10:35 Procardia Xl - PO 30 mg DAILY [facility] Administration Non-Formulary Medication 0.5 each 09/01/18 10:00 Cyclosporine [Restasis] OU BID [facility] Polyethylene Glycol 17 gm 09/01/18 10:00 09/03/18 09:19 Miralax (For Bowel Prep) - PO Not Given DAILY [facility] Prednisone 20 mg 09/03/18 14:15 09/03/18 14:10 Deltasone - PO 20 mg DAILY [facility] Administration Rosuvastatin Calcium 5 mg 09/01/18 01:00 09/02/18 21:01 Crestor - PO 5 mg HS [facility] Administration Senna 2 tab 09/01/18 01:00 09/02/18 21:01 Senna - PO 2 tab HS [facility] Administration Sitagliptin Phosphate 50 mg 09/01/18 07:00 09/03/18 06:39 Januvia - PO 50 mg DAILY@0700 [facility] Administration Tiotropium [place] 2 puff 09/01/18 01:00 09/03/18 09:20 Spiriva Respimat IH 2 puff DAILY [facility] Administration Warfarin Sodium 2.5 mg 09/03/18 18:00 Coumadin - PO DAILY@1800 [facility] Impression: COPD A/C- currently subtherapeutic Will order 5 mg of Coumadin tonight Hx VTE DM HBP HPL Fe++ deficiency Constipation Plan: IV Venofer F/C p.o. FE++ Mag citrate Need to titrate coumadin dosing with therapeutic INR per PCP.
[2018-09-03] MEDS ORDERED: MAGNESIUM CITRATE 300 ML BOTTLE PO ONE (15:56)
[2018-09-03] MEDS ORDERED: IRON SUCROSE INJECTION 200 MG in SODIUM CHLORIDE 90 ML IVPB ONE (16:30)
[2018-09-03] MEDS ORDERED: WARFARIN NA 5 MG TABLET (UD) PO ONE (18:00)
[2018-09-03] MEDS ORDERED: WARFARIN NA 2.5 MG TABLET (FP) PO SCH (18:00)
--- NOTE | 2018-09-03 19:20 | CONSULT ---
Consult - text type - Consultation Consultation Note: NEUROLOGY CONSULTATION is greatly appreciated: This 68 yo Rh woman is a [place] patient with COPD on chronic steroid Rx, Chronic pulmonary HTN with distant history of PE, DM, Chol, and chronic morbid obesity. 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 It was during that hospitalization that patient was first unable to get off the commode. She walked with assist in [place] but has not walked independently for 1 year. Bedbound since November admission with flu. Maintained on: Albuterol; Restasis; Insulin; Meclizine; Nifedipine; Prednisone; Rosuvastatin; Warfarin; Budesonide; furosemide; Gabapentin; Losartan; Januvia. On chronic FeSO4 therapy for recurrent anemia requiring transfusions. Now admitted with progressive dyspnea and H/H= 6.8/24.2 with INR=4.21. Consultation of Dr. Munson read and appreciated: Heme +++stool strongly supporting GI source of blood loss. JOANNE: Obese. No bruits. Neck supple. Not dyspneic. NEURO: Awake, alert. Ox 3. MS/speech: Normal CN II-XII: normal. Motor: Normal arm strength. Occ tremor/asterixis Cannot elevate either leg off the bed. Knee ext 4-/5. but ankle Dorsiflexion/plantarflexion 5/5! Areflexic in legs. Downgoing toes. Coord: No FTN dystaxia Sensory: Normal vibration feet. 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 SUGGEST: Check CK (CPK), B12, TSH, T4 Consult Dr. Albert Jenkins for opinion and EMG/NCS Taper steroids as possible. Reassess indications for long-term anticoagulation. Bedside PT. Thank you very much, Barney Becker MD
[2018-09-03] MEDS: ROSUVASTATIN CA 5 MG TABLET (FP) PO SCH (21:57)
[2018-09-03] MEDS: SENNOSIDES 8.6MG TABLET (FP) PO SCH (22:00)
--- NOTE | 2018-09-03 22:34 | PN ---
Progress Note, Physician - Current Medication List Current Medications: Active Medications Acetaminophen (Tylenol -) 1,300 mg PO BID [facility] Last Admin: 09/03/18 22:06 Dose: 1,300 mg Albuterol Sulfate (Ventolin 0.083% Nebulizer Soln -) 1 amp NEB Q4H PRN PRN Reason: SHORT OF BREATH/WHEEZING Last Admin: 09/02/18 07:34 Dose: 1 amp Artificial Tears (Artificial Tears) 1 drop OU BID PRN PRN Reason: DRY EYES Budesonide/Formoterol Fumarate (Symbicort 160/4.5mcg -) 2 puff IH BID [facility] Last Admin: 09/03/18 09:19 Dose: 2 puff Docusate Sodium (Colace -) 100 mg PO TID [facility] Last Admin: 09/03/18 21:56 Dose: Not Given Furosemide (Lasix Injection -) 40 mg IVPUSH DAILY [facility] Last Admin: 09/03/18 09:12 Dose: 40 mg Gabapentin (Neurontin -) 200 mg PO BID [facility] Last Admin: 09/03/18 21:59 Dose: 200 mg Piperacillin Sod/Tazobactam (Sod 2.25 gm/ Dextrose) 50 mls @ 100 mls/hr IVPB Q8H-IV [facility]; Protocol Last Admin: 09/03/18 17:11 Dose: 100 mls/hr Insulin Aspart (Novolog Vial Sliding Scale -) 1 vial SQ ACHS [facility]; Protocol Last Admin: 09/03/18 16:45 Dose: Not Given Insulin Detemir (Levemir Vial) 10 units SQ DAILY@0700 [facility] Last Admin: 09/03/18 06:39 Dose: 10 units Losartan Potassium (Cozaar -) 100 mg PO DAILY [facility] Last Admin: 09/03/18 10:35 Dose: 100 mg Meclizine HCl (Antivert -) 12.5 mg PO BID PRN PRN Reason: VERTIGO Nifedipine (Procardia Xl -) 30 mg PO DAILY [facility] Last Admin: 09/03/18 10:35 Dose: 30 mg Non-Formulary Medication (Cyclosporine [Restasis]) 0.5 each OU BID [facility] Polyethylene Glycol (Miralax (For Bowel Prep) -) 17 gm PO DAILY [facility] Last Admin: 09/03/18 09:19 Dose: Not Given Prednisone (Deltasone -) 20 mg PO DAILY [facility] Last Admin: 09/03/18 14:10 Dose: 20 mg Rosuvastatin Calcium (Crestor -) 5 mg PO HS [facility] Last Admin: 09/03/18 21:57 Dose: 5 mg Senna (Senna -) 2 tab PO [facility] Last Admin: 09/03/18 22:00 Dose: Not Given Sitagliptin Phosphate (Januvia -) 50 mg PO DAILY@0700 [facility] Last Admin: 09/03/18 06:39 Dose: 50 mg Tiotropium [place] (Spiriva Respimat) 2 puff IH DAILY [facility] Last Admin: 09/03/18 09:20 Dose: 2 puff Warfarin Sodium (Coumadin -) 2.5 mg PO DAILY@1800 [facility] - Objective Vital Signs: Vital Signs Temperature 98.1 F 09/03/18 14:05 Pulse Rate 83 09/03/18 14:05 Respiratory Rate 16 09/03/18 14:05 Blood Pressure 105/43 L 09/03/18 14:05 O2 Sat by Pulse Oximetry (%) 97 09/03/18 09:00 Labs: CBC, BMP 09/03/18 06:00 09/03/18 06:00 INR, PTT INR 1.59 (0.83-1.09) H 09/03/18 06:00 Problem List - Problems (1) Symptomatic anemia Code(s): D64.9 - ANEMIA, UNSPECIFIED (2) UTI (urinary tract infection) Code(s): N39.0 - URINARY TRACT INFECTION, SITE NOT SPECIFIED (3) Unsteady gait Code(s): R26.81 - UNSTEADINESS ON FEET (4) Supratherapeutic INR Code(s): R79.1 - ABNORMAL COAGULATION PROFILE (5) Chronic diastolic (congestive) heart failure Code(s): I50.32 - CHRONIC DIASTOLIC (CONGESTIVE) HEART FAILURE (6) Hypertension Code(s): I10 - ESSENTIAL (PRIMARY) HYPERTENSION (7) COPD (chronic obstructive pulmonary disease) Code(s): J44.9 - CHRONIC OBSTRUCTIVE PULMONARY DISEASE, UNSPECIFIED (8) DVT (deep venous thrombosis) Code(s): I82.409 - ACUTE EMBOLISM AND THOMBOS UNSP DEEP VN UNSP LOWER EXTREMITY (9) HLD (hyperlipidemia) Code(s): E78.5 - HYPERLIPIDEMIA, UNSPECIFIED (10) History of pulmonary embolism Code(s): Z86.711 - PERSONAL HISTORY OF PULMONARY EMBOLISM (11) CKD (chronic kidney disease) Code(s): N18.9 - CHRONIC KIDNEY DISEASE, UNSPECIFIED (12) Diabetes Code(s): E11.9 - TYPE 2 DIABETES MELLITUS WITHOUT COMPLICATIONS (13) Coronary artery disease Code(s): I25.10 - ATHSCL HEART DISEASE OF [place] CORONARY ARTERY W/O ANG PCTRS (14) Morbid obesity Code(s): E66.01 - MORBID (SEVERE) OBESITY DUE TO EXCESS CALORIES
[2018-09-04] MEDS ORDERED: PIPERACILLIN/TAZOBACTAM 2.25 GM VIAL IVPB ONE ×3 (00:53→16:44)
[2018-09-04] MEDS ORDERED: DEXTROSE 5%-WATER - 100 ML IVPB ONE (00:54)
[2018-09-04] MEDS: PIPERACILLIN/TAZOB 2.25 GM 2.25 GM in DEXTROSE 5%-WATER - 50 ML IVPB SCH ×3 (01:21→16:59)
[2018-09-04] MEDS ORDERED: PT OWN MED DRAWER 7, Y5N ONE ×3 (04:43→21:16)
[2018-09-04] MEDS: DOCUSATE SODIUM 100 MG CAPSULE (FP) PO SCH ×3 (05:38→21:27)
[2018-09-04] MEDS: INSULIN (LEVEMIR) 100 UNITS/ML UNITS SQ SCH (06:42)
[2018-09-04] MEDS: sitaGLIPtin PHOSPHATE 50 MG TABLET PO SCH (06:42)
[2018-09-04] MEDS: INSULIN SLIDING SCALE (NOVOLOG) 1 VIAL SQ SCH ×4 (06:44→21:25)
[2018-09-04 07:49] LABS: INR 1.34 (0.83-1.09); PROTHROMBIN TIME (PATIENT) 15.8 SEC (9.7-13.0)
[2018-09-04 08:20] LABS: ALK PHOS 66 U/L (45-117); ANION GAP 4 MMOL/L (8-16); BILIRUBIN,TOTAL 0.4 mg/dL (0.2-1); BLOOD UREA NITROGEN 38 mg/dL (7-18); CALCIUM 8.2 mg/dL (8.5-10.1); CHLORIDE 95 mmol/L (98-107); CO2 43 mmol/L (21-32); CREATININE 1.6 mg/dL (0.55-1.3); GLUCOSE,RANDOM 185 mg/dL (74-106); POTASSIUM 4.5 mmol/L (3.5-5.1); SGOT/AST 12 U/L (15-37); SGPT/ALT 25 U/L (13-61); SODIUM 143 mmol/L (136-145); TOT PROT 5.5 g/dl (6.4-8.2)
--- NOTE | 2018-09-04 08:38 | PN ---
Progress Note, Physician - Current Medication List Current Medications: Active Medications Acetaminophen (Tylenol -) 1,300 mg PO BID [facility] Last Admin: 09/03/18 22:06 Dose: 1,300 mg Albuterol Sulfate (Ventolin 0.083% Nebulizer Soln -) 1 amp NEB Q4H PRN PRN Reason: SHORT OF BREATH/WHEEZING Last Admin: 09/02/18 07:34 Dose: 1 amp Artificial Tears (Artificial Tears) 1 drop OU BID PRN PRN Reason: DRY EYES Budesonide/Formoterol Fumarate (Symbicort 160/4.5mcg -) 2 puff IH BID [facility] Last Admin: 09/03/18 23:11 Dose: 2 puff Docusate Sodium (Colace -) 100 mg PO TID [facility] Last Admin: 09/04/18 05:38 Dose: Not Given Furosemide (Lasix Injection -) 40 mg IVPUSH DAILY [facility] Last Admin: 09/03/18 09:12 Dose: 40 mg Gabapentin (Neurontin -) 200 mg PO BID [facility] Last Admin: 09/03/18 21:59 Dose: 200 mg Piperacillin Sod/Tazobactam (Sod 2.25 gm/ Dextrose) 50 mls @ 100 mls/hr IVPB Q8H-IV [facility]; Protocol Last Admin: 09/04/18 01:21 Dose: 100 mls/hr Insulin Aspart (Novolog Vial Sliding Scale -) 1 vial SQ ACHS [facility]; Protocol Last Admin: 09/04/18 06:44 Dose: 4 units Insulin Detemir (Levemir Vial) 10 units SQ DAILY@0700 [facility] Last Admin: 09/04/18 06:42 Dose: 10 units Losartan Potassium (Cozaar -) 100 mg PO DAILY [facility] Last Admin: 09/03/18 10:35 Dose: 100 mg Meclizine HCl (Antivert -) 12.5 mg PO BID PRN PRN Reason: VERTIGO Nifedipine (Procardia Xl -) 30 mg PO DAILY [facility] Last Admin: 09/03/18 10:35 Dose: 30 mg Non-Formulary Medication (Cyclosporine [Restasis]) 0.5 each OU BID [facility] Polyethylene Glycol (Miralax (For Bowel Prep) -) 17 gm PO DAILY [facility] Last Admin: 09/03/18 09:19 Dose: Not Given Prednisone (Deltasone -) 20 mg PO DAILY [facility] Last Admin: 09/03/18 14:10 Dose: 20 mg Rosuvastatin Calcium (Crestor -) 5 mg PO HS [facility] Last Admin: 09/03/18 21:57 Dose: 5 mg Senna (Senna -) 2 tab PO HS [facility] Last Admin: 09/03/18 22:00 Dose: Not Given Sitagliptin Phosphate (Januvia -) 50 mg PO DAILY@0700 [facility] Last Admin: 09/04/18 06:42 Dose: 50 mg Tiotropium [place] (Spiriva Respimat) 2 puff IH DAILY [facility] Last Admin: 09/03/18 09:20 Dose: 2 puff Warfarin Sodium (Coumadin -) 2.5 mg PO DAILY@1800 [facility] - Objective Vital Signs: Vital Signs Temperature 98.1 F 09/04/18 02:00 Pulse Rate 80 09/04/18 02:00 Respiratory Rate 18 09/04/18 02:00 Blood Pressure 102/41 L 09/04/18 02:00 O2 Sat by Pulse Oximetry (%) 97 09/03/18 21:00 Eyes: Yes: WNL, Conjunctiva Clear, EOM Intact HENT: Yes: WNL, Atraumatic, Normocephalic Neck: Yes: WNL, Supple, Trachea Midline Cardiovascular: Yes: WNL, Regular Rate and Rhythm Respiratory: Yes: WNL, Regular, CTA Bilaterally Gastrointestinal: Yes: WNL, Normal Bowel Sounds Genitourinary: Yes: WNL Musculoskeletal: Yes: WNL Extremities: Yes: WNL Edema: No Integumentary: Yes: WNL Neurological: Yes: WNL, Alert, Oriented ...Motor Strength: WNL Psychiatric: Yes: WNL Labs: CBC, BMP 09/04/18 06:35 INR, PTT INR 1.34 (0.83-1.09) H 09/04/18 06:35 Assessment/Plan IMP: Chronic anemia COPD Hx DVT/PE UTI REC: 1. Supplimental O2 2. Rx UTI as per PMD 3. INR now < 2- coumadin held several days for supratherapeutic INR. Resume Coumadin for INR goal 2-3
[2018-09-04] MEDS ORDERED: DEXTROSE 5%-WATER - 50 ML IVPB ONE ×2 (08:48→16:44)
[2018-09-04 08:57] LABS: BASO % 0.2 % (0-2.0); EOS % 0.4 % (0-4.5); HEMATOCRIT 28.4 % (32.4-45.2); HEMOGLOBIN 8.4 GM/dL (10.7-15.3); LYMPH % 9.1 % (8-40); MCH 25.5 pg (25.7-33.7); MCHC 29.6 g/dl (32.0-36.0); MEAN CELL VOLUME 86.1 fl (80-96); MEAN PLT VOLUME 8.3 fl (7.5-11.1); MONO % 5.7 % (3.8-10.2); NEUT % 84.6 % (42.8-82.8); PLATELET COUNT 196 K/MM3 (134-434); WHITE BLOOD COUNT 13.6 K/mm3 (4.0-10.0)
[2018-09-04] MEDS: NIFEdipine E.R. 30 MG TABLET (FP) PO SCH (09:59)
[2018-09-04] MEDS: POLYETHYLENE GLYCOL 3350 255 GM BTL PO SCH (09:59)
[2018-09-04] MEDS: GABAPENTIN 100 MG CAPSULE (FP) PO SCH ×2 (09:59→21:27)
[2018-09-04] MEDS: TIOTROPIUM BROMIDE 2.5 MCG (SPIRIVA) RESPIMAT INHALER IH SCH (09:59)
[2018-09-04] MEDS: predniSONE 20 MG TABLET (UD) PO SCH (09:59)
[2018-09-04] MEDS: LOSARTAN POTASSIUM 50 MG TABLET (FP) PO SCH (09:59)
[2018-09-04] MEDS: BUDESONIDE/FORMETEROL FUMARATE 160/4.5 mcg INHALER IH SCH ×2 (09:59→21:28)
[2018-09-04] MEDS: FUROSEMIDE 40 MG/4 ML INJECTABLE VIAL IVPUSH SCH (10:00)
[2018-09-04] MEDS: ACETAMINOPHEN 325 MG TABLET (FP) PO SCH ×2 (10:01→21:28)
--- NOTE | 2018-09-04 10:58 | CON.GI ---
Consult Consult Specialty:: GI - History of Present Illness History of Present Illness: 68 y/o F with CHF,COPD and anemia was asked to be seen because of anemia and guaiac positive stool. Patient had previous EGD and colonoscopy was reported to be normal. 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: CVA Cardio/Vascular: Yes: CHF (chronic diastolic), HTN, Hyperlipdemia Pulmonary: Yes: COPD, O2 Dependent, Pulmonary Embolus, Other (pulmonary HTN) ...: No - Alcohol/Substance Use Hx Alcohol Use: No - Smoking History Smoking history: Former smoker Have you smoked in the past 12 months: No Aproximately how many cigarettes per day: 20 If you are a former smoker, when did you quit?: 1998 - Social History Usual Living Arrangement: Alone History of Recent Travel: No Home Medications - Allergies Allergies/Adverse Reactions: Allergies Allergy/AdvReac Type Severity Reaction Status Date / Time No Known Allergies Allergy Verified 01/08/18 19:57 - Home Medications Home Medications: Ambulatory Orders Acetaminophen [Tylenol] 650 mg PO BID 01/08/18 Albuterol 0.083% Nebulizer Claudia [Ventolin 0.083% Nebulizer Soln -] 1 neb NEB Q4H PRN 01/08/18 Cyclosporine [Restasis] 1 drop OU BID 01/08/18 Ferrous Sulfate [Feosol] 325 mg PO DAILY 01/08/18 Insulin Glargine,Hum.rec.anlog [Lantus Solostar] 10 unit SQ DAILY 01/08/18 Meclizine HCl 12.5 mg PO DAILY 01/08/18 Nifedipine ER [Procardia XL -] 30 mg PO DAILY 01/08/18 Polyethylene Glycol 3350 [Glycolax] 17 gm PO DAILY 01/08/18 Rosuvastatin Calcium [Crestor] 5 mg PO HS 01/08/18 Sennosides [Natural Laxative] 2 tab PO HS 01/08/18 Warfarin Na [Coumadin -] 3.5 mg PO HS 01/08/18 Furosemide [Lasix -] 40 mg PO BID 08/31/18 Gabapentin 200 mg PO TID 08/31/18 Losartan Potassium 100 mg PO DAILY 08/31/18 Sitagliptin Phosphate [Januvia] 50 mg PO DAILY 08/31/18 Warfarin Na [Coumadin -] 3 mg PO DAILY@1800 08/31/18 Albuterol 0.083% Nebulizer [place] [Ventolin 0.083% Nebulizer Soln -] 1 amp NEB DAILY 09/01/18 Budesonide/Formeterol Fumarate [SYMBICORT 160/4.5mcg -] 2 inh PO BID 09/01/18 Cholecalciferol (Vitamin D3) [Decara] 50,000 unit PO MONTHLY 09/01/18 Fluticasone Prop 0.05% Nasal [Flonase -] 1 spray NS DAILY 09/01/18 Levalbuterol Tartrate [Xopenex Hfa] 2 puff IH Q4H PRN 09/01/18 Menthol/Zinc Oxide [Calmoseptine Ointment] 1 applic TP DAILY 09/01/18 Polyvinyl Alcohol [Artificial Tears] 1 drop OU BID 09/01/18 Tiotropium [place] [Spiriva Respimat] 2 puff IH DAILY 09/01/18 Physical Exam-GI Vital Signs: Vital Signs Temperature 98.1 F 09/04/18 02:00 Pulse Rate 80 09/04/18 02:00 Respiratory Rate 18 09/04/18 02:00 Blood Pressure 102/41 L 09/04/18 02:00 O2 Sat by Pulse Oximetry (%) 97 09/03/18 21:00 Constitutional: Yes: Obese Eyes: Yes: Conjunctiva Clear HENT: Yes: Normocephalic Neck: Yes: Trachea Midline Cardiovascular: Yes: Regular Rate and Rhythm Respiratory: Yes: Diminished (at the bases) ...Palpate: Yes: Soft. No: Firm/Rigid, Guarding, Hepatomegaly, Mass, Pulsatile Mass, Splenomegaly, Tenderness Labs: CBC, BMP 09/04/18 06:35 09/04/18 06:35 INR, PTT INR 1.34 (0.83-1.09) H 09/04/18 06:35 Problem List - Problems (1) Anemia Assessment/Plan: stool guaiac positive stool R> for UGIS with SBFT, salvadoretn refiused repeat gi w/u because of underlying CHF and COPD. Dhe wasnts conservative management only. Code(s): D64.9 - ANEMIA, UNSPECIFIED Qualifiers: Anemia type: unspecified type Qualified Code(s): D64.9 - Anemia, unspecified
--- NOTE | 2018-09-04 13:22 | PN ---
Progress Note (short form) - Note Progress Note: Breathing feels OK today. NAD on NC O2. Intake & Output 09/01/18 09/02/18 09/03/18 09/04/18 23:59 23:59 23:59 23:59 Intake Total 497 874 4877 770 Balance 917 408 8854 770 Weight 313 lb 313 lb Last Vital Signs Temp Pulse Resp BP Pulse Ox 97.8 F 85 20 137/60 97 09/04/18 10:00 09/04/18 10:00 09/04/18 10:00 09/04/18 10:00 09/04/18 09:00 Active Medications Acetaminophen (Tylenol -) 1,300 mg PO BID [facility] Last Admin: 09/04/18 10:01 Dose: 1,300 mg Albuterol Sulfate (Ventolin 0.083% Nebulizer Soln -) 1 amp NEB Q4H PRN PRN Reason: SHORT OF BREATH/WHEEZING Last Admin: 09/02/18 07:34 Dose: 1 amp Artificial Tears (Artificial Tears) 1 drop OU BID PRN PRN Reason: DRY EYES Budesonide/Formoterol Fumarate (Symbicort 160/4.5mcg -) 2 puff IH BID [facility] Last Admin: 09/04/18 09:59 Dose: 2 puff Docusate Sodium (Colace -) 100 mg PO TID [facility] Last Admin: 09/04/18 13:07 Dose: Not Given Furosemide (Lasix Injection -) 40 mg IVPUSH DAILY [facility] Last Admin: 09/04/18 10:00 Dose: 40 mg Gabapentin (Neurontin -) 200 mg PO BID [facility] Last Admin: 09/04/18 09:59 Dose: 200 mg Piperacillin Sod/Tazobactam (Sod 2.25 gm/ Dextrose) 50 mls @ 100 mls/hr IVPB Q8H-IV [facility]; Protocol Last Admin: 09/04/18 09:54 Dose: 100 mls/hr Insulin Aspart (Novolog Vial Sliding Scale -) 1 vial SQ ACHS [facility]; Protocol Last Admin: 09/04/18 11:13 Dose: Not Given Insulin Detemir (Levemir Vial) 10 units SQ DAILY@0700 [facility] Last Admin: 09/04/18 06:42 Dose: 10 units Losartan Potassium (Cozaar -) 100 mg PO DAILY [facility] Last Admin: 09/04/18 09:59 Dose: 100 mg Meclizine HCl (Antivert -) 12.5 mg PO BID PRN PRN Reason: VERTIGO Nifedipine (Procardia Xl -) 30 mg PO DAILY [facility] Last Admin: 09/04/18 09:59 Dose: 30 mg Non-Formulary Medication (Cyclosporine [Restasis]) 0.5 each OU BID [facility] Polyethylene Glycol (Miralax (For Bowel Prep) -) 17 gm PO DAILY [facility] Last Admin: 09/04/18 09:59 Dose: Not Given Prednisone (Deltasone -) 20 mg PO DAILY [facility] Last Admin: 09/04/18 09:59 Dose: 20 mg Rosuvastatin Calcium (Crestor -) 5 mg PO HS [facility] Last Admin: 09/03/18 21:57 Dose: 5 mg Senna (Senna -) 2 tab PO HS [facility] Last Admin: 09/03/18 22:00 Dose: Not Given Sitagliptin Phosphate (Januvia -) 50 mg PO DAILY@0700 [facility] Last Admin: 09/04/18 06:42 Dose: 50 mg Tiotropium [place] (Spiriva Respimat) 2 puff IH DAILY [facility] Last Admin: 09/04/18 09:59 Dose: 2 puff Warfarin Sodium (Coumadin -) 2.5 mg PO DAILY@1800 [facility] Constitutional: Yes: NAD Cardiovascular: Yes: Regular Rate and Rhythm Respiratory: Yes: diminished at the bases, (-) wheezing Gastrointestinal: Yes: Soft, Abdomen, Obese Edema: No Neurological: Yes: Alert, Oriented Labs: Laboratory Results - last 24 hr 08/31/18 09/03/18 09/03/18 14:10 16:44 23:01 WBC RBC Hgb Hct MCV MCH MCHC RDW Plt Count MPV Absolute Neuts (auto) Neutrophils % Lymphocytes % Monocytes % Eosinophils % Basophils % Nucleated RBC % PT with INR INR Sodium Potassium Chloride Carbon Dioxide Anion Gap BUN Creatinine Creat Clearance w eGFR POC Glucometer 141 270 Random Glucose Calcium Total Bilirubin AST ALT Alkaline Phosphatase Creatine Kinase Total Protein Albumin TSH Blood Type O POSITIVE Antibody Screen Negative Crossmatch See Detail 09/04/18 09/04/18 09/04/18 06:23 06:35 06:35 WBC RBC Hgb Hct MCV MCH MCHC RDW Plt Count MPV Absolute Neuts (auto) Neutrophils % Lymphocytes % Monocytes % Eosinophils % Basophils % Nucleated RBC % PT with INR 15.80 H INR 1.34 H Sodium 143 Potassium 4.5 Chloride 95 L Carbon Dioxide 43 H Anion Gap 4 L BUN 38 H Creatinine 1.6 H Creat Clearance w eGFR 31.87 POC Glucometer 211 Random Glucose 185 H Calcium 8.2 L Total Bilirubin 0.4 AST 12 L ALT 25 Alkaline Phosphatase 66 Creatine Kinase 74 Total Protein 5.5 L Albumin 3.0 L TSH 0.60 Blood Type Antibody Screen Crossmatch 09/04/18 09/04/18 06:35 11:12 WBC 13.6 H RBC 3.30 L Hgb 8.4 L Hct 28.4 L MCV 86.1 MCH 25.5 L MCHC 29.6 L RDW 15.0 Plt Count 196 MPV 8.3 Absolute Neuts (auto) 11.5 H Neutrophils % 84.6 H Lymphocytes % 9.1 D Monocytes % 5.7 Eosinophils % 0.4 Basophils % 0.2 Nucleated RBC % 0 PT with INR INR Sodium Potassium Chloride Carbon Dioxide Anion Gap BUN Creatinine Creat Clearance w eGFR POC Glucometer 124 Random Glucose Calcium Total Bilirubin AST ALT Alkaline Phosphatase Creatine Kinase Total Protein Albumin TSH Blood Type Antibody Screen Crossmatch Problem List - Problems (1) CKD (chronic kidney disease) Code(s): N18.9 - CHRONIC KIDNEY DISEASE, UNSPECIFIED (2) Chronic diastolic (congestive) heart failure Code(s): I50.32 - CHRONIC DIASTOLIC (CONGESTIVE) HEART FAILURE (3) Supratherapeutic INR Code(s): R79.1 - ABNORMAL COAGULATION PROFILE (4) Symptomatic anemia Code(s): D64.9 - ANEMIA, UNSPECIFIED (5) Acute on chronic diastolic (congestive) heart failure Code(s): I50.33 - ACUTE ON CHRONIC DIASTOLIC (CONGESTIVE) HEART FAILURE (6) Anemia Code(s): D64.9 - ANEMIA, UNSPECIFIED Qualifiers: Anemia type: unspecified type Qualified Code(s): D64.9 - Anemia, unspecified (7) CHF (congestive heart failure) Code(s): I50.9 - HEART FAILURE, UNSPECIFIED (8) Chronic respiratory failure with hypoxia, on home O2 therapy Code(s): J96.11 - CHRONIC RESPIRATORY FAILURE WITH HYPOXIA; Z99.81 - DEPENDENCE ON SUPPLEMENTAL OXYGEN (9) DVT (deep venous thrombosis) Code(s): I82.409 - ACUTE EMBOLISM AND THOMBOS UNSP DEEP VN UNSP LOWER EXTREMITY (10) Diabetes Code(s): E11.9 - TYPE 2 DIABETES MELLITUS WITHOUT COMPLICATIONS (11) Hypertension Code(s): I10 - ESSENTIAL (PRIMARY) HYPERTENSION (12) manager intermediate current use of anticoagulant Code(s): Z79.01 - USP (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 OF 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 (13) Morbid obesity Code(s): E66.01 - MORBID (SEVERE) OBESITY DUE TO EXCESS CALORIES (14) Pulmonary embolus Code(s): I26.99 - OTHER PULMONARY EMBOLISM WITHOUT ACUTE COR PULMONALE (15) Pulmonary hypertension Code(s): I27.2 - OTHER SECONDARY PULMONARY HYPERTENSION * DO NOT USE * (16) SOB (shortness of breath) Code(s): R06.02 - SHORTNESS OF BREATH IMP SYMPTOMATIC ANEMIA COPD O2 DEPENDENT WITH CHRONIC HYPOXEMIC RESPIRATORY FAILURE CHRONIC THROMBOEMBOLIC PULMONARY HTN SUPRA-THERAPEUTIC INR DIASTOLIC HF HTN MORBID OBESITY DM PLAN O2 INHALED BRONCHODILATORS NORMAL TRANSFUSION THRESHOLD MONITOR INR GI W/U PER GI MONITOR H+H LASIX SYMBICORT BID SPIRIVA OD Dr Waters
--- NOTE | 2018-09-04 15:46 | PN ---
Progress Note, Physician History of Present Illness: stable no new issues - Current Medication List Current Medications: Active Medications Acetaminophen (Tylenol -) 1,[address] [facility] Last Admin: 09/04/18 10:01 Dose: 1,300 mg Albuterol Sulfate (Ventolin 0.083% Nebulizer Soln -) 1 amp NEB Q4H PRN PRN Reason: SHORT OF BREATH/WHEEZING Last Admin: 09/02/18 07:34 Dose: 1 amp Artificial Tears (Artificial Tears) 1 drop OU BID PRN PRN Reason: DRY EYES Budesonide/Formoterol Fumarate (Symbicort 160/4.5mcg -) [address] [facility] Last Admin: 09/04/18 09:59 Dose: 2 puff Docusate Sodium (Colace -) [address] [facility] Last Admin: 09/04/18 13:07 Dose: Not Given Furosemide (Lasix Injection -) [address] [facility] Last Admin: 09/04/18 10:00 Dose: 40 mg Gabapentin (Neurontin -) [address] [facility] Last Admin: 09/04/18 09:59 Dose: 200 mg Piperacillin Sod/Tazobactam (Sod 2.25 gm/ Dextrose) 50 mls @ 100 mls/hr IVPB Q8H-IV [facility]; Protocol Last Admin: 09/04/18 09:54 Dose: 100 mls/hr Insulin Aspart (Novolog Vial Sliding Scale -) [address] [facility]; Protocol Last Admin: 09/04/18 11:13 Dose: Not Given Insulin Detemir (Levemir Vial) 10 units SQ DAILY@0700 [facility] Last Admin: 09/04/18 06:42 Dose: 10 units Losartan Potassium (Cozaar -) [address] [facility] Last Admin: 09/04/18 09:59 Dose: 100 mg Meclizine HCl (Antivert -) 12.5 mg PO BID PRN PRN Reason: VERTIGO Nifedipine (Procardia Xl -) [address] [facility] Last Admin: 09/04/18 09:59 Dose: 30 mg Non-Formulary Medication (Cyclosporine [Restasis]) 0.[address] [facility] Polyethylene Glycol (Miralax (For Bowel Prep) -) [address] [facility] Last Admin: 09/04/18 09:59 Dose: Not Given Prednisone (Deltasone -) [address] [facility] Last Admin: 09/04/18 09:59 Dose: 20 mg Rosuvastatin Calcium (Crestor -) [address] [facility] Last Admin: 09/03/18 21:57 Dose: 5 mg Senna (Senna -) [address] [facility] Last Admin: 09/03/18 22:00 Dose: Not Given Sitagliptin Phosphate (Januvia -) 50 mg PO DAILY@0700 [facility] Last Admin: 09/04/18 06:42 Dose: 50 mg Tiotropium [place] (Spiriva Respimat) [address] [facility] Last Admin: 09/04/18 09:59 Dose: 2 puff Warfarin Sodium (Coumadin -) 2.5 mg PO DAILY@1800 [facility] - Objective Vital Signs: Vital Signs Temperature 97.8 F 09/04/18 10:00 Pulse Rate 85 09/04/18 10:00 Respiratory Rate 20 09/04/18 10:00 Blood Pressure 137/60 09/04/18 10:00 O2 Sat by Pulse Oximetry (%) 97 09/04/18 09:00 Constitutional: Yes: No Distress, Calm, Obese Cardiovascular: Yes: Pulse Irregular, S1, S2 Respiratory: Yes: On Nasal O2, Poor Air Entry Gastrointestinal: Yes: Normal Bowel Sounds, Soft Musculoskeletal: Yes: WNL Extremities: Yes: WNL Neurological: Yes: Alert, Oriented Psychiatric: Yes: Alert, Oriented Labs: CBC, BMP 09/04/18 06:35 09/04/18 06:35 INR, PTT INR 1.34 (0.83-1.09) H 09/04/18 06:35 Assessment/Plan Problem List - Problems (1) Symptomatic anemia Code(s): D64.9 - ANEMIA, UNSPECIFIED (2) UTI (urinary tract infection) Code(s): N39.0 - URINARY TRACT INFECTION, SITE NOT SPECIFIED (3) Unsteady gait Code(s): R26.81 - UNSTEADINESS ON FEET (4) Supratherapeutic INR Code(s): R79.1 - ABNORMAL COAGULATION PROFILE (5) Chronic diastolic (congestive) heart failure Code(s): I50.32 - CHRONIC DIASTOLIC (CONGESTIVE) HEART FAILURE (6) Hypertension Code(s): I10 - ESSENTIAL (PRIMARY) HYPERTENSION (7) COPD (chronic obstructive pulmonary disease) Code(s): J44.9 - CHRONIC OBSTRUCTIVE PULMONARY DISEASE, UNSPECIFIED (8) DVT (deep venous thrombosis) Code(s): I82.409 - ACUTE EMBOLISM AND THOMBOS UNSP DEEP VN UNSP LOWER EXTREMITY (9) HLD (hyperlipidemia) Assessment/Plan: Cont crestor Code(s): E78.5 - HYPERLIPIDEMIA, UNSPECIFIED (10) History of pulmonary embolism Code(s): Z86.711 - PERSONAL HISTORY OF PULMONARY EMBOLISM (11) CKD (chronic kidney disease) Code(s): N18.9 - CHRONIC KIDNEY DISEASE, UNSPECIFIED (12) Diabetes Code(s): E11.9 - TYPE 2 DIABETES MELLITUS WITHOUT COMPLICATIONS (13) Coronary artery disease Code(s): I25.10 - ATHSCL HEART DISEASE OF [place] CORONARY ARTERY W/O ANG PCTRS (14) Morbid obesity Code(s): E66.01 - MORBID (SEVERE) OBESITY DUE TO EXCESS CALORIES plan await for sensitivites rest contineu current mgmt once we have all the sensitivities will have a final plan
--- NOTE | 2018-09-04 16:27 | PN ---
Progress Note, Physician - Current Medication List Current Medications: Active Medications Acetaminophen (Tylenol -) 1,300 mg PO BID [facility] Last Admin: 09/04/18 10:01 Dose: 1,300 mg Albuterol Sulfate (Ventolin 0.083% Nebulizer Soln -) 1 amp NEB Q4H PRN PRN Reason: SHORT OF BREATH/WHEEZING Last Admin: 09/02/18 07:34 Dose: 1 amp Artificial Tears (Artificial Tears) 1 drop OU BID PRN PRN Reason: DRY EYES Budesonide/Formoterol Fumarate (Symbicort 160/4.5mcg -) 2 puff IH BID [facility] Last Admin: 09/04/18 09:59 Dose: 2 puff Docusate Sodium (Colace -) 100 mg PO TID [facility] Last Admin: 09/04/18 13:07 Dose: Not Given Furosemide (Lasix Injection -) 40 mg IVPUSH DAILY [facility] Last Admin: 09/04/18 10:00 Dose: 40 mg Gabapentin (Neurontin -) 200 mg PO BID [facility] Last Admin: 09/04/18 09:59 Dose: 200 mg Piperacillin Sod/Tazobactam (Sod 2.25 gm/ Dextrose) 50 mls @ 100 mls/hr IVPB Q8H-IV [facility]; Protocol Last Admin: 09/04/18 09:54 Dose: 100 mls/hr Insulin Aspart (Novolog Vial Sliding Scale -) 1 vial SQ ACHS [facility]; Protocol Last Admin: 09/04/18 11:13 Dose: Not Given Insulin Detemir (Levemir Vial) 10 units SQ DAILY@0700 [facility] Last Admin: 09/04/18 06:42 Dose: 10 units Losartan Potassium (Cozaar -) 100 mg PO DAILY [facility] Last Admin: 09/04/18 09:59 Dose: 100 mg Meclizine HCl (Antivert -) 12.5 mg PO BID PRN PRN Reason: VERTIGO Nifedipine (Procardia Xl -) 30 mg PO DAILY [facility] Last Admin: 09/04/18 09:59 Dose: 30 mg Non-Formulary Medication (Cyclosporine [Restasis]) 0.5 each OU BID [facility] Polyethylene Glycol (Miralax (For Bowel Prep) -) 17 gm PO DAILY [facility] Last Admin: 09/04/18 09:59 Dose: Not Given Prednisone (Deltasone -) 20 mg PO DAILY [facility] Last Admin: 09/04/18 09:59 Dose: 20 mg Rosuvastatin Calcium (Crestor -) 5 mg PO [facility] Last Admin: 09/03/18 21:57 Dose: 5 mg Senna (Senna -) 2 tab PO [facility] Last Admin: 09/03/18 22:00 Dose: Not Given Sitagliptin Phosphate (Januvia -) 50 mg PO DAILY@0700 [facility] Last Admin: 09/04/18 06:42 Dose: 50 mg Tiotropium [place] (Spiriva Respimat) 2 puff IH DAILY [facility] Last Admin: 09/04/18 09:59 Dose: 2 puff Warfarin Sodium (Coumadin -) 2.5 mg PO DAILY@1800 [facility] - Objective Vital Signs: Vital Signs Temperature 98 F 09/04/18 15:00 Pulse Rate 84 09/04/18 15:00 Respiratory Rate 18 09/04/18 15:00 Blood Pressure 128/52 L 09/04/18 15:00 O2 Sat by Pulse Oximetry (%) 97 09/04/18 09:00 Labs: CBC, BMP 09/04/18 06:35 09/04/18 06:35 INR, PTT INR 1.34 (0.83-1.09) H 09/04/18 06:35 Problem List - Problems (1) Symptomatic anemia Code(s): D64.9 - ANEMIA, UNSPECIFIED (2) UTI (urinary tract infection) Code(s): N39.0 - URINARY TRACT INFECTION, SITE NOT SPECIFIED (3) Unsteady gait Code(s): R26.81 - UNSTEADINESS ON FEET (4) Supratherapeutic INR Code(s): R79.1 - ABNORMAL COAGULATION PROFILE (5) Chronic diastolic (congestive) heart failure Code(s): I50.32 - CHRONIC DIASTOLIC (CONGESTIVE) HEART FAILURE (6) Hypertension Code(s): I10 - ESSENTIAL (PRIMARY) HYPERTENSION (7) COPD (chronic obstructive pulmonary disease) Code(s): J44.9 - CHRONIC OBSTRUCTIVE PULMONARY DISEASE, UNSPECIFIED (8) DVT (deep venous thrombosis) Code(s): I82.409 - ACUTE EMBOLISM AND THOMBOS UNSP DEEP VN UNSP LOWER EXTREMITY (9) HLD (hyperlipidemia) Code(s): E78.5 - HYPERLIPIDEMIA, UNSPECIFIED (10) History of pulmonary embolism Code(s): Z86.711 - PERSONAL HISTORY OF PULMONARY EMBOLISM (11) CKD (chronic kidney disease) Code(s): N18.9 - CHRONIC KIDNEY DISEASE, UNSPECIFIED (12) Diabetes Code(s): E11.9 - TYPE 2 DIABETES MELLITUS WITHOUT COMPLICATIONS (13) Coronary artery disease Code(s): I25.10 - ATHSCL HEART DISEASE OF [place] CORONARY ARTERY W/O ANG PCTRS (14) Morbid obesity Code(s): E66.01 - MORBID (SEVERE) OBESITY DUE TO EXCESS CALORIES
[2018-09-04] MEDS: ALBUTEROL SO4 0.083% IH SOL 2.5 MG/3 ML VIAL.NEB. NEB PRN (16:33)
[2018-09-04] MEDS: WARFARIN NA 2.5 MG TABLET (FP) PO SCH (16:59)
[2018-09-04] MEDS: ROSUVASTATIN CA 5 MG TABLET (FP) PO SCH (21:27)
[2018-09-04] MEDS: SENNOSIDES 8.6MG TABLET (FP) PO SCH (21:27)
[2018-09-05] MEDS ORDERED: PIPERACILLIN/TAZOBACTAM 2.25 GM VIAL IVPB ONE ×3 (02:08→16:50)
[2018-09-05] MEDS ORDERED: DEXTROSE 5%-WATER - 50 ML IVPB ONE ×3 (02:08→16:50)
[2018-09-05] MEDS: PIPERACILLIN/TAZOB 2.25 GM 2.25 GM in DEXTROSE 5%-WATER - 50 ML IVPB SCH ×3 (02:24→17:36)
[2018-09-05] MEDS: INSULIN SLIDING SCALE (NOVOLOG) 1 VIAL SQ SCH ×4 (07:00→21:21)
[2018-09-05] MEDS: sitaGLIPtin PHOSPHATE 50 MG TABLET PO SCH (07:02)
[2018-09-05] MEDS: INSULIN (LEVEMIR) 100 UNITS/ML UNITS SQ SCH (07:02)
[2018-09-05] MEDS: DOCUSATE SODIUM 100 MG CAPSULE (FP) PO SCH ×3 (07:03→22:14)
[2018-09-05 07:47] LABS: INR 1.69 (0.83-1.09)
[2018-09-05 08:13] LABS: ALK PHOS 55 U/L (45-117); ANION GAP 4 MMOL/L (8-16); BILIRUBIN,TOTAL 0.4 mg/dL (0.2-1); BLOOD UREA NITROGEN 31 mg/dL (7-18); CALCIUM 8.2 mg/dL (8.5-10.1); CHLORIDE 95 mmol/L (98-107); CO2 43 mmol/L (21-32); CREATININE 1.4 mg/dL (0.55-1.3); GLUCOSE,RANDOM 123 mg/dL (74-106); POTASSIUM 4.5 mmol/L (3.5-5.1); SGOT/AST 12 U/L (15-37); SGPT/ALT 25 U/L (13-61); SODIUM 143 mmol/L (136-145); TOT PROT 5.5 g/dl (6.4-8.2)
--- NOTE | 2018-09-05 08:46 | PN ---
Progress Note, Physician - Current Medication List Current Medications: Active Medications Acetaminophen (Tylenol -) 1,300 mg PO BID [facility] Last Admin: 09/04/18 21:28 Dose: 1,300 mg Albuterol Sulfate (Ventolin 0.083% Nebulizer Soln -) 1 amp NEB Q4H PRN PRN Reason: SHORT OF BREATH/WHEEZING Last Admin: 09/04/18 16:33 Dose: 1 amp Artificial Tears (Artificial Tears) 1 drop OU BID PRN PRN Reason: DRY EYES Budesonide/Formoterol Fumarate (Symbicort 160/4.5mcg -) 2 puff IH BID [facility] Last Admin: 09/04/18 21:28 Dose: 2 puff Docusate Sodium (Colace -) 100 mg PO TID [facility] Last Admin: 09/05/18 07:03 Dose: Not Given Furosemide (Lasix Injection -) 40 mg IVPUSH DAILY [facility] Last Admin: 09/04/18 10:00 Dose: 40 mg Gabapentin (Neurontin -) 200 mg PO BID [facility] Last Admin: 09/04/18 21:27 Dose: 200 mg Piperacillin Sod/Tazobactam (Sod 2.25 gm/ Dextrose) 50 mls @ 100 mls/hr IVPB Q8H-IV [facility], [facility]; Protocol Last Admin: 09/05/18 02:24 Dose: 100 mls/hr Insulin Aspart (Novolog Vial Sliding Scale -) 1 vial SQ ACHS [facility]; Protocol Last Admin: 09/05/18 07:00 Dose: Not Given Insulin Detemir (Levemir Vial) 10 units SQ DAILY@0700 [facility] Last Admin: 09/05/18 07:02 Dose: 10 units Losartan Potassium (Cozaar -) 100 mg PO DAILY [facility] Last Admin: 09/04/18 09:59 Dose: 100 mg Meclizine HCl (Antivert -) 12.5 mg PO BID PRN PRN Reason: VERTIGO Nifedipine (Procardia Xl -) 30 mg PO DAILY [facility] Last Admin: 09/04/18 09:59 Dose: 30 mg Polyethylene Glycol (Miralax (For Bowel Prep) -) 17 gm PO DAILY [facility] Last Admin: 09/04/18 09:59 Dose: Not Given Prednisone (Deltasone -) 20 mg PO DAILY [facility] Last Admin: 09/04/18 09:59 Dose: 20 mg Rosuvastatin Calcium (Crestor -) 5 mg PO HS [facility] Last Admin: 09/04/18 21:27 Dose: 5 mg Senna (Senna -) 2 tab PO HS [facility] Last Admin: 09/04/18 21:27 Dose: 2 tab Sitagliptin Phosphate (Januvia -) 50 mg PO DAILY@0700 [facility] Last Admin: 09/05/18 07:02 Dose: 50 mg Tiotropium [place] (Spiriva Respimat) 2 puff IH DAILY [facility] Last Admin: 09/04/18 09:59 Dose: 2 puff Warfarin Sodium (Coumadin -) 2.5 mg PO DAILY@1800 [facility] Last Admin: 09/04/18 16:59 Dose: 2.5 mg - Objective Vital Signs: Vital Signs Temperature 97.9 F 09/05/18 06:00 Pulse Rate 71 09/05/18 06:00 Respiratory Rate 20 09/05/18 06:00 Blood Pressure 118/54 L 09/05/18 06:00 O2 Sat by Pulse Oximetry (%) 99 09/04/18 21:00 Eyes: Yes: WNL, Conjunctiva Clear, EOM Intact HENT: Yes: WNL, Atraumatic, Normocephalic Neck: Yes: WNL, Supple, Trachea Midline Cardiovascular: Yes: WNL, Regular Rate and Rhythm Respiratory: Yes: WNL, Regular, Diminished Gastrointestinal: Yes: WNL, Normal Bowel Sounds Genitourinary: Yes: WNL Musculoskeletal: Yes: WNL Extremities: Yes: WNL Edema: No Integumentary: Yes: WNL Neurological: Yes: WNL, Alert, Oriented ...Motor Strength: WNL Psychiatric: Yes: WNL Labs: CBC, BMP 09/05/18 06:30 INR, PTT INR 1.69 (0.83-1.09) H 09/05/18 06:30 Assessment/Plan IMP: Chronic anemia COPD Hx DVT/PE UTI REC: 1. Supplimental O2 2. Rx UTI as per PMD 3. INR now < 2- coumadin held several days for supratherapeutic INR. Resume Coumadin for INR goal 2-3
[2018-09-05] MEDS ORDERED: PT OWN MED DRAWER 7, Y5N ONE ×2 (09:16→21:03)
[2018-09-05] MEDS: BUDESONIDE/FORMETEROL FUMARATE 160/4.5 mcg INHALER IH SCH ×2 (09:25→21:21)
[2018-09-05] MEDS: LOSARTAN POTASSIUM 50 MG TABLET (FP) PO SCH (09:25)
[2018-09-05] MEDS: NIFEdipine E.R. 30 MG TABLET (FP) PO SCH (09:25)
[2018-09-05] MEDS: FUROSEMIDE 40 MG/4 ML INJECTABLE VIAL IVPUSH SCH (09:25)
[2018-09-05] MEDS: GABAPENTIN 100 MG CAPSULE (FP) PO SCH ×2 (09:25→21:20)
[2018-09-05] MEDS: TIOTROPIUM BROMIDE 2.5 MCG (SPIRIVA) RESPIMAT INHALER IH SCH (09:26)
[2018-09-05] MEDS: POLYETHYLENE GLYCOL 3350 255 GM BTL PO SCH (09:26)
[2018-09-05] MEDS: predniSONE 20 MG TABLET (UD) PO SCH (09:26)
[2018-09-05] MEDS: ACETAMINOPHEN 325 MG TABLET (FP) PO SCH ×2 (09:27→21:23)
[2018-09-05 09:44] LABS: HEMATOCRIT 26.9 % (32.4-45.2); MCH 25.7 pg (25.7-33.7); MCHC 29.9 g/dl (32.0-36.0); MEAN CELL VOLUME 85.7 fl (80-96); MEAN PLT VOLUME 8.1 fl (7.5-11.1); PLATELET COUNT 204 K/MM3 (134-434); RBC 3.14 M/mm3 (3.60-5.2); RDW 15.3 % (11.6-15.6)
[2018-09-05 10:22] LABS: ADD RBC MORPHOLOGY YES
[2018-09-05 12:49] LABS: ACANTHOCYTES 1+; ANISOCYTOSIS 1+; MACROCYTOSIS 0; OVALOCYTE 1+; PLATELET ESTIMATE NORMAL; TEAR DROP CELLS 1+
--- NOTE | 2018-09-05 13:08 | PN ---
Progress Note (short form) - Note Progress Note: Breathing feels OK today. NAD on NC O2. Intake & Output 09/02/18 09/03/18 09/04/18 09/05/18 23:59 23:59 23:59 23:59 Intake Total 200 1710 770 960 Balance 200 1710 770 960 Weight 313 lb Last Vital Signs Temp Pulse Resp BP Pulse Ox 98 F 83 20 122/61 96 09/05/18 10:00 09/05/18 10:00 09/05/18 10:00 09/05/18 10:00 09/05/18 09:00 Active Medications Acetaminophen (Tylenol -) 1,300 mg PO BID [facility] Last Admin: 09/05/18 09:27 Dose: 1,300 mg Albuterol Sulfate (Ventolin 0.083% Nebulizer Soln -) 1 amp NEB Q4H PRN PRN Reason: SHORT OF BREATH/WHEEZING Last Admin: 09/04/18 16:33 Dose: 1 amp Artificial Tears (Artificial Tears) 1 drop OU BID PRN PRN Reason: DRY EYES Budesonide/Formoterol Fumarate (Symbicort 160/4.5mcg -) 2 puff IH BID [facility] Last Admin: 09/05/18 09:25 Dose: 2 puff Docusate Sodium (Colace -) 100 mg PO TID [facility] Last Admin: 09/05/18 07:03 Dose: Not Given Furosemide (Lasix Injection -) 40 mg IVPUSH DAILY [facility] Last Admin: 09/05/18 09:25 Dose: 40 mg Gabapentin (Neurontin -) 200 mg PO BID [facility] Last Admin: 09/05/18 09:25 Dose: 200 mg Piperacillin Sod/Tazobactam (Sod 2.25 gm/ Dextrose) 50 mls @ 100 mls/hr IVPB Q8H-IV [facility]; Protocol Last Admin: 09/05/18 10:08 Dose: 100 mls/hr Insulin Aspart (Novolog Vial Sliding Scale -) 1 vial SQ ACHS [facility]; Protocol Last Admin: 09/05/18 11:45 Dose: 2 units Insulin Detemir (Levemir Vial) 10 units SQ DAILY@0700 [facility] Last Admin: 09/05/18 07:02 Dose: 10 units Losartan Potassium (Cozaar -) 100 mg PO DAILY [facility] Last Admin: 09/05/18 09:25 Dose: 100 mg Meclizine HCl (Antivert -) 12.5 mg PO BID PRN PRN Reason: VERTIGO Nifedipine (Procardia Xl -) 30 mg PO DAILY [facility] Last Admin: 09/05/18 09:25 Dose: 30 mg Polyethylene Glycol (Miralax (For Bowel Prep) -) 17 gm PO DAILY [facility] Last Admin: 09/05/18 09:26 Dose: Not Given Prednisone (Deltasone -) 20 mg PO DAILY [facility] Last Admin: 09/05/18 09:26 Dose: 20 mg Rosuvastatin Calcium (Crestor -) 5 mg PO HS [facility] Last Admin: 09/04/18 21:27 Dose: 5 mg Senna (Senna -) 2 tab PO HS [facility] Last Admin: 09/04/18 21:27 Dose: 2 tab Sitagliptin Phosphate (Januvia -) 50 mg PO DAILY@0700 [facility] Last Admin: 09/05/18 07:02 Dose: 50 mg Tiotropium [place] (Spiriva Respimat) 2 puff IH DAILY [facility] Last Admin: 09/05/18 09:26 Dose: 2 puff Warfarin Sodium (Coumadin -) 2.5 mg PO DAILY@1800 [facility] Last Admin: 09/04/18 16:59 Dose: 2.5 mg Constitutional: Yes: NAD Cardiovascular: Yes: Regular Rate and Rhythm Respiratory: Yes: diminished at the bases, (-) wheezing Gastrointestinal: Yes: Soft, Abdomen, Obese Edema: No Neurological: Yes: Alert, Oriented Labs: Laboratory Results - last 24 hr 09/04/18 09/04/18 09/05/18 16:48 21:24 06:30 WBC 12.0 H RBC 3.14 L Hgb 8.0 L Hct 26.9 L MCV 85.7 MCH 25.7 MCHC 29.9 L RDW 15.3 Plt Count 204 MPV 8.1 Absolute Neuts (auto) 9.6 H Neutrophils % No Result Required. Neutrophils % (Manual) 68.8 Band Neutrophils % 8.3 Lymphocytes % No Result Required. Lymphocytes % (Manual) 3.1 L D Monocytes % (Manual) 4 Eosinophils % (Manual) 1.0 D Basophils % (Manual) 0.0 Myelocytes % (Man) 0 D Promyelocytes % (Man) 0 Blast Cells % (Manual) 0 Nucleated RBC % 0 Metamyelocytes 0 D Hypochromia 0 Platelet Estimate Normal Polychromasia 0 Poikilocytosis 1+ Basophilic Stippling 1+ Anisocytosis 1+ Microcytosis 1+ Macrocytosis 0 Tear Drop Cells 1+ Ovalocytes 1+ Stomatocytes 1+ Acanthocytes (Spur) 1+ PT with INR INR Sodium Potassium Chloride Carbon Dioxide Anion Gap BUN Creatinine Creat Clearance w eGFR POC Glucometer 268 131 Random Glucose Calcium Total Bilirubin AST ALT Alkaline Phosphatase Total Protein Albumin 09/05/18 09/05/18 09/05/18 06:30 06:30 07:00 WBC RBC Hgb Hct MCV MCH MCHC RDW Plt Count MPV Absolute Neuts (auto) Neutrophils % Neutrophils % (Manual) Band Neutrophils % Lymphocytes % Lymphocytes % (Manual) Monocytes % (Manual) Eosinophils % (Manual) Basophils % (Manual) Myelocytes % (Man) Promyelocytes % (Man) Blast Cells % (Manual) Nucleated RBC % Metamyelocytes Hypochromia Platelet Estimate Polychromasia Poikilocytosis Basophilic Stippling Anisocytosis Microcytosis Macrocytosis Tear Drop Cells Ovalocytes Stomatocytes Acanthocytes (Spur) PT with INR 20.00 H INR 1.69 H Sodium 143 Potassium 4.5 Chloride 95 L Carbon Dioxide 43 H Anion Gap 4 L BUN 31 H Creatinine 1.4 H Creat Clearance w eGFR 37.18 POC Glucometer 143 Random Glucose 123 H Calcium 8.2 L Total Bilirubin 0.4 AST 12 L ALT 25 Alkaline Phosphatase 55 Total Protein 5.5 L Albumin 3.0 L 09/05/18 11:13 WBC RBC Hgb Hct MCV MCH MCHC RDW Plt Count MPV Absolute Neuts (auto) Neutrophils % Neutrophils % (Manual) Band Neutrophils % Lymphocytes % Lymphocytes % (Manual) Monocytes % (Manual) Eosinophils % (Manual) Basophils % (Manual) Myelocytes % (Man) Promyelocytes % (Man) Blast Cells % (Manual) Nucleated RBC % Metamyelocytes Hypochromia Platelet Estimate Polychromasia Poikilocytosis Basophilic Stippling Anisocytosis Microcytosis Macrocytosis Tear Drop Cells Ovalocytes Stomatocytes Acanthocytes (Spur) PT with INR INR Sodium Potassium Chloride Carbon Dioxide Anion Gap BUN Creatinine Creat Clearance w eGFR POC Glucometer 167 Random Glucose Calcium Total Bilirubin AST ALT Alkaline Phosphatase Total Protein Albumin Problem List - Problems (1) CKD (chronic kidney disease) Code(s): N18.9 - CHRONIC KIDNEY DISEASE, UNSPECIFIED (2) Chronic diastolic (congestive) heart failure Code(s): I50.32 - CHRONIC DIASTOLIC (CONGESTIVE) HEART FAILURE (3) Supratherapeutic INR Code(s): R79.1 - ABNORMAL COAGULATION PROFILE (4) Symptomatic anemia Code(s): D64.9 - ANEMIA, UNSPECIFIED (5) Acute on chronic diastolic (congestive) heart failure Code(s): I50.33 - ACUTE ON CHRONIC DIASTOLIC (CONGESTIVE) HEART FAILURE (6) Anemia Code(s): D64.9 - ANEMIA, UNSPECIFIED Qualifiers: Anemia type: unspecified type Qualified Code(s): D64.9 - Anemia, unspecified (7) CHF (congestive heart failure) Code(s): I50.9 - HEART FAILURE, UNSPECIFIED (8) Chronic respiratory failure with hypoxia, on home O2 therapy Code(s): J96.11 - CHRONIC RESPIRATORY FAILURE WITH HYPOXIA; Z99.81 - DEPENDENCE ON SUPPLEMENTAL OXYGEN (9) DVT (deep venous thrombosis) Code(s): I82.409 - ACUTE EMBOLISM AND THOMBOS UNSP DEEP VN UNSP LOWER EXTREMITY (10) Diabetes Code(s): E11.9 - TYPE 2 DIABETES MELLITUS WITHOUT COMPLICATIONS (11) Hypertension Code(s): I10 - ESSENTIAL (PRIMARY) HYPERTENSION (12) intermediate current use of anticoagulant Code(s): Z79.01 - SENIOR LIVING (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 OF 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 (13) Morbid obesity Code(s): E66.01 - MORBID (SEVERE) OBESITY DUE TO EXCESS CALORIES (14) Pulmonary embolus Code(s): I26.99 - OTHER PULMONARY EMBOLISM WITHOUT ACUTE COR PULMONALE (15) Pulmonary hypertension Code(s): I27.2 - OTHER SECONDARY PULMONARY HYPERTENSION * DO NOT USE * (16) SOB (shortness of breath) Code(s): R06.02 - SHORTNESS OF BREATH IMP SYMPTOMATIC ANEMIA COPD O2 DEPENDENT WITH CHRONIC HYPOXEMIC RESPIRATORY FAILURE CHRONIC THROMBOEMBOLIC PULMONARY HTN SUPRA-THERAPEUTIC INR DIASTOLIC HF HTN MORBID OBESITY DM PLAN O2 INHALED BRONCHODILATORS NORMAL TRANSFUSION THRESHOLD MONITOR INR GI W/U PER GI MONITOR H+H LASIX SYMBICORT BID SPIRIVA OD Dr Waters
--- NOTE | 2018-09-05 17:19 | PN ---
Progress Note, Physician History of Present Illness: stable doing well no issues - Current Medication List Current Medications: Active Medications Acetaminophen (Tylenol -) 1,300 mg PO BID [facility] Last Admin: 09/05/18 09:27 Dose: 1,300 mg Albuterol Sulfate (Ventolin 0.083% Nebulizer Soln -) 1 amp NEB Q4H PRN PRN Reason: SHORT OF BREATH/WHEEZING Last Admin: 09/04/18 16:33 Dose: 1 amp Artificial Tears (Artificial Tears) 1 drop OU BID PRN PRN Reason: DRY EYES Budesonide/Formoterol Fumarate (Symbicort 160/4.5mcg -) 2 puff IH BID [facility] Last Admin: 09/05/18 09:25 Dose: 2 puff Docusate Sodium (Colace -) 100 mg PO TID [facility] Last Admin: 09/05/18 13:14 Dose: Not Given Furosemide (Lasix Injection -) 40 mg IVPUSH DAILY [facility] Last Admin: 09/05/18 09:25 Dose: 40 mg Gabapentin (Neurontin -) 200 mg PO BID [facility] Last Admin: 09/05/18 09:25 Dose: 200 mg Piperacillin Sod/Tazobactam (Sod 2.25 gm/ Dextrose) 50 mls @ 100 mls/hr IVPB Q8H-IV [facility]; Protocol Last Admin: 09/05/18 10:08 Dose: 100 mls/hr Insulin Aspart (Novolog Vial Sliding Scale -) 1 vial SQ ACHS [facility]; Protocol Last Admin: 09/05/18 11:45 Dose: 2 units Insulin Detemir (Levemir Vial) 10 units SQ DAILY@0700 [facility] Last Admin: 09/05/18 07:02 Dose: 10 units Losartan Potassium (Cozaar -) 100 mg PO DAILY [facility] Last Admin: 09/05/18 09:25 Dose: 100 mg Meclizine HCl (Antivert -) 12.5 mg PO BID PRN PRN Reason: VERTIGO Nifedipine (Procardia Xl -) 30 mg PO DAILY [facility] Last Admin: 09/05/18 09:25 Dose: 30 mg Polyethylene Glycol (Miralax (For Bowel Prep) -) 17 gm PO DAILY [facility] Last Admin: 09/05/18 09:26 Dose: Not Given Prednisone (Deltasone -) 20 mg PO DAILY [facility] Last Admin: 11/11/18 09:26 Dose: 20 mg Rosuvastatin Calcium (Crestor -) 5 mg PO [facility] Last Admin: 09/04/18 21:27 Dose: 5 mg Senna (Senna -) 2 tab PO [facility] Last Admin: 09/04/18 21:27 Dose: 2 tab Sitagliptin Phosphate (Januvia -) 50 mg PO DAILY@0700 [facility] Last Admin: 09/05/18 07:02 Dose: 50 mg Tiotropium [place] (Spiriva Respimat) 2 puff IH DAILY [facility] Last Admin: 09/05/18 09:26 Dose: 2 puff Warfarin Sodium (Coumadin -) 2.5 mg PO DAILY@1800 [facility] Last Admin: 09/04/18 16:59 Dose: 2.5 mg - Objective Vital Signs: Vital Signs Temperature 99.1 F 09/05/18 14:38 Pulse Rate 94 H 09/05/18 14:38 Respiratory Rate 20 09/05/18 14:38 Blood Pressure 102/46 L 09/05/18 14:38 O2 Sat by Pulse Oximetry (%) 96 09/05/18 09:00 Constitutional: Yes: No Distress, Calm, Obese Cardiovascular: Yes: Pulse Irregular Respiratory: Yes: Regular, CTA Bilaterally, On Nasal O2 Musculoskeletal: Yes: WNL Extremities: Yes: WNL Neurological: Yes: Alert, Oriented Psychiatric: Yes: Alert, Oriented Labs: CBC, BMP 09/05/18 06:30 09/05/18 06:30 INR, PTT INR 1.69 (0.83-1.09) H 09/05/18 06:30 Assessment/Plan Problem List - Problems (1) Symptomatic anemia Code(s): D64.9 - ANEMIA, UNSPECIFIED (2) UTI (urinary tract infection) Code(s): N39.0 - URINARY TRACT INFECTION, SITE NOT SPECIFIED (3) Unsteady gait Code(s): R26.81 - UNSTEADINESS ON FEET (4) Supratherapeutic INR Code(s): R79.1 - ABNORMAL COAGULATION PROFILE (5) Chronic diastolic (congestive) heart failure Code(s): I50.32 - CHRONIC DIASTOLIC (CONGESTIVE) HEART FAILURE (6) Hypertension Code(s): I10 - ESSENTIAL (PRIMARY) HYPERTENSION (7) COPD (chronic obstructive pulmonary disease) Code(s): J44.9 - CHRONIC OBSTRUCTIVE PULMONARY DISEASE, UNSPECIFIED (8) DVT (deep venous thrombosis) Code(s): I82.409 - ACUTE EMBOLISM AND THOMBOS UNSP DEEP VN UNSP LOWER EXTREMITY (9) HLD (hyperlipidemia) Assessment/Plan: Cont crestor Code(s): E78.5 - HYPERLIPIDEMIA, UNSPECIFIED (10) History of pulmonary embolism Code(s): Z86.711 - PERSONAL HISTORY OF PULMONARY EMBOLISM (11) CKD (chronic kidney disease) Code(s): N18.9 - CHRONIC KIDNEY DISEASE, UNSPECIFIED (12) Diabetes Code(s): E11.9 - TYPE 2 DIABETES MELLITUS WITHOUT COMPLICATIONS (13) Coronary artery disease Code(s): I25.10 - ATHSCL HEART DISEASE OF [place] CORONARY ARTERY W/O ANG PCTRS (14) Morbid obesity Code(s): E66.01 - MORBID (SEVERE) OBESITY DUE TO EXCESS CALORIES plan continue current mgmt incentive schuyler will d/w the team rest as per the team
[2018-09-05] MEDS: WARFARIN NA 2.5 MG TABLET (FP) PO SCH (17:36)
[2018-09-05] MEDS: ALBUTEROL SO4 0.083% IH SOL 2.5 MG/3 ML VIAL.NEB. NEB PRN (17:42)
--- NOTE | 2018-09-05 20:46 | PN ---
Progress Note, Physician History of Present Illness: No new complaints - Current Medication List Current Medications: Active Medications Acetaminophen (Tylenol -) 1,300 mg PO BID [facility] Last Admin: 09/05/18 09:27 Dose: 1,300 mg Albuterol Sulfate (Ventolin 0.083% Nebulizer Soln -) 1 amp NEB Q4H PRN PRN Reason: SHORT OF BREATH/WHEEZING Last Admin: 09/05/18 17:42 Dose: 1 amp Artificial Tears (Artificial Tears) 1 drop OU BID PRN PRN Reason: DRY EYES Budesonide/Formoterol Fumarate (Symbicort 160/4.5mcg -) 2 puff IH BID [facility] [place] Last Admin: 09/05/18 09:25 Dose: 2 puff Docusate Sodium (Colace -) 100 mg PO TID [facility] [place] Last Admin: 09/05/18 13:14 Dose: Not Given Furosemide (Lasix Injection -) 40 mg IVPUSH DAILY [facility] [place] Last Admin: 09/05/18 09:25 Dose: 40 mg Gabapentin (Neurontin -) 200 mg PO BID [facility] [place] Last Admin: 09/05/18 09:25 Dose: 200 mg Piperacillin Sod/Tazobactam (Sod 2.25 gm/ Dextrose) 50 mls @ 100 mls/hr IVPB Q8H-IV [facility] [place]; Protocol Last Admin: 09/05/18 17:36 Dose: 100 mls/hr Insulin Aspart (Novolog Vial Sliding Scale -) 1 vial SQ ACHS [facility] [place]; Protocol Last Admin: 09/05/18 17:36 Dose: 4 units Insulin Detemir (Levemir Vial) 10 units SQ DAILY@0700 [facility] [place] Last Admin: 09/05/18 07:02 Dose: 10 units Losartan Potassium (Cozaar -) 100 mg PO DAILY [facility] [place] Last Admin: 09/05/18 09:25 Dose: 100 mg Meclizine HCl (Antivert -) 12.5 mg PO BID PRN PRN Reason: VERTIGO Nifedipine (Procardia Xl -) 30 mg PO DAILY [facility] [place] Last Admin: 09/05/18 09:25 Dose: 30 mg Polyethylene Glycol (Miralax (For Bowel Prep) -) 17 gm PO DAILY [facility] [place] Last Admin: 09/05/18 09:26 Dose: Not Given Prednisone (Deltasone -) 20 mg PO DAILY [facility] [place] Last Admin: 09/05/18 09:26 Dose: 20 mg Rosuvastatin Calcium (Crestor -) 5 mg PO [facility] Last Admin: 09/04/18 21:27 Dose: 5 mg Senna (Senna -) 2 tab PO [facility] Last Admin: 09/04/18 21:27 Dose: 2 tab Sitagliptin Phosphate (Januvia -) 50 mg PO DAILY@0700 [facility] [place] Last Admin: 09/05/18 07:02 Dose: 50 mg Tiotropium [place] (Spiriva Respimat) 2 puff IH DAILY [facility] Last Admin: 09/05/18 09:26 Dose: 2 puff Warfarin Sodium (Coumadin -) 2.5 mg PO DAILY@1800 [facility] Last Admin: 09/05/18 17:36 Dose: 2.5 mg - Objective Vital Signs: Vital Signs Temperature 98.7 F 09/05/18 17:20 Pulse Rate 88 09/05/18 17:20 Respiratory Rate 20 09/05/18 17:20 Blood Pressure 120/65 09/05/18 17:20 O2 Sat by Pulse Oximetry (%) 96 09/05/18 09:00 Constitutional: Yes: Obese Neck: Yes: WNL, Supple Cardiovascular: Yes: WNL, Regular Rate and Rhythm Respiratory: Yes: WNL, Regular, CTA Bilaterally Gastrointestinal: Yes: WNL, Normal Bowel Sounds, Soft, Abdomen, Obese Extremities: Yes: WNL Edema: No Labs: CBC, BMP 09/05/18 06:30 09/05/18 06:30 INR, PTT INR 1.69 (0.83-1.09) H 09/05/18 06:30 Problem List - Problems (1) Symptomatic anemia Assessment/Plan: Pt transfused total of 2 units PRBC's Stool hemoccult positive GI/heme consults Monitor H/H Cont ferrous sulfate DC planning for am Code(s): D64.9 - ANEMIA, UNSPECIFIED (2) UTI (urinary tract infection) Assessment/Plan: Urine culture (+) for Klebsiella/enterococcus Cont IV zosyn DC planning for am Code(s): N39.0 - URINARY TRACT INFECTION, SITE NOT SPECIFIED (3) Unsteady gait Assessment/Plan: ?Myopathy Neuro consult noted Due to chronic steroid use PT eval Code(s): R26.81 - UNSTEADINESS ON FEET (4) Supratherapeutic INR Assessment/Plan: h/o PE/DVT Pt on coumadin Will give extra dose of coumadin today Monitor PT/INR Code(s): R79.1 - ABNORMAL COAGULATION PROFILE (5) Chronic diastolic (congestive) heart failure Assessment/Plan: Cont IV lasix Possible change to po lasix in am Monitor electrolytes Code(s): I50.32 - CHRONIC DIASTOLIC (CONGESTIVE) HEART FAILURE (6) Hypertension Assessment/Plan: Cont losartan/procardia Code(s): I10 - ESSENTIAL (PRIMARY) HYPERTENSION (7) COPD (chronic obstructive pulmonary disease) Assessment/Plan: Cont spireva/symbicort Cont duoneb nebulizer Cont prednisone and taper as possible Code(s): J44.9 - CHRONIC OBSTRUCTIVE PULMONARY DISEASE, UNSPECIFIED (8) DVT (deep venous thrombosis) Code(s): I82.409 - ACUTE EMBOLISM AND THOMBOS UNSP DEEP VN UNSP LOWER EXTREMITY (9) HLD (hyperlipidemia) Code(s): E78.5 - HYPERLIPIDEMIA, UNSPECIFIED (10) History of pulmonary embolism Code(s): Z86.711 - PERSONAL HISTORY OF PULMONARY EMBOLISM (11) CKD (chronic kidney disease) Code(s): N18.9 - CHRONIC KIDNEY DISEASE, UNSPECIFIED (12) Diabetes Code(s): E11.9 - TYPE 2 DIABETES MELLITUS WITHOUT COMPLICATIONS (13) Coronary artery disease Code(s): I25.10 - ATHSCL HEART DISEASE OF [place] CORONARY ARTERY W/O ANG PCTRS (14) Morbid obesity Code(s): E66.01 - MORBID (SEVERE) OBESITY DUE TO EXCESS CALORIES
[2018-09-05] MEDS ORDERED: WARFARIN NA 2.5 MG TABLET (FP) PO ONE (21:00)
[2018-09-05] MEDS: ROSUVASTATIN CA 5 MG TABLET (FP) PO SCH (21:20)
[2018-09-05] MEDS: SENNOSIDES 8.6MG TABLET (FP) PO SCH (21:21)
[2018-09-06] MEDS ORDERED: PIPERACILLIN/TAZOBACTAM 2.25 GM VIAL IVPB ONE ×3 (01:07→16:42)
[2018-09-06] MEDS ORDERED: DEXTROSE 5%-WATER - 50 ML IVPB ONE ×3 (01:08→16:42)
[2018-09-06] MEDS ORDERED: PT OWN MED DRAWER 7, Y5N ONE ×7 (01:23→21:34)
[2018-09-06] MEDS: PIPERACILLIN/TAZOB 2.25 GM 2.25 GM in DEXTROSE 5%-WATER - 50 ML IVPB SCH ×3 (01:24→17:02)
[2018-09-06] MEDS: DOCUSATE SODIUM 100 MG CAPSULE (FP) PO SCH ×3 (06:04→21:10)
[2018-09-06] MEDS: INSULIN (LEVEMIR) 100 UNITS/ML UNITS SQ SCH (06:47)
[2018-09-06] MEDS: sitaGLIPtin PHOSPHATE 50 MG TABLET PO SCH (06:48)
[2018-09-06] MEDS: INSULIN SLIDING SCALE (NOVOLOG) 1 VIAL SQ SCH ×4 (06:48→21:11)
[2018-09-06 07:43] LABS: BASO % 0.3 % (0-2.0); EOS % 0.9 % (0-4.5); HEMATOCRIT 26.2 % (32.4-45.2); HEMOGLOBIN 7.6 GM/dL (10.7-15.3); LYMPH % 17.5 % (8-40); MCH 24.6 pg (25.7-33.7); MCHC 28.9 g/dl (32.0-36.0); MEAN CELL VOLUME 85.2 fl (80-96); NEUT % 72.3 % (42.8-82.8); PLATELET COUNT 209 K/MM3 (134-434); RBC 3.08 M/mm3 (3.60-5.2); WHITE BLOOD COUNT 11.1 K/mm3 (4.0-10.0)
[2018-09-06 07:53] LABS: INR 1.87 (0.83-1.09); PROTHROMBIN TIME (PATIENT) 22.2 SEC (9.7-13.0)
[2018-09-06 08:07] LABS: ALBUMIN 2.8 g/dl (3.4-5.0); ALK PHOS 51 U/L (45-117); ANION GAP 1 MMOL/L (8-16); BILIRUBIN,TOTAL 0.3 mg/dL (0.2-1); BLOOD UREA NITROGEN 31 mg/dL (7-18); CALCIUM 8.5 mg/dL (8.5-10.1); CHLORIDE 96 mmol/L (98-107); CO2 45 mmol/L (21-32); CREATININE 1.5 mg/dL (0.55-1.3); GLUCOSE,RANDOM 113 mg/dL (74-106); POTASSIUM 4.4 mmol/L (3.5-5.1); SGOT/AST 15 U/L (15-37); SGPT/ALT 24 U/L (13-61); SODIUM 141 mmol/L (136-145); TOT PROT 5.3 g/dl (6.4-8.2)
--- NOTE | 2018-09-06 08:48 | PN ---
Progress Note, Physician Chief Complaint: no distress TELE: NSR, sinus tach - Current Medication List Current Medications: Active Medications Acetaminophen (Tylenol -) 1,300 mg PO BID [facility] Last Admin: 09/05/18 21:23 Dose: 1,300 mg Albuterol Sulfate (Ventolin 0.083% Nebulizer Soln -) 1 amp NEB Q4H PRN PRN Reason: SHORT OF BREATH/WHEEZING Last Admin: 09/05/18 17:42 Dose: 1 amp Artificial Tears (Artificial Tears) 1 drop OU BID PRN PRN Reason: DRY EYES Budesonide/Formoterol Fumarate (Symbicort 160/4.5mcg -) 2 puff IH BID [facility] Last Admin: 09/05/18 21:21 Dose: 2 puff Docusate Sodium (Colace -) 100 mg PO TID [facility] Last Admin: 09/06/18 06:04 Dose: Not Given Furosemide (Lasix Injection -) 40 mg IVPUSH DAILY [facility] Last Admin: 09/05/18 09:25 Dose: 40 mg Gabapentin (Neurontin -) 200 mg PO BID [facility] Last Admin: 09/05/18 21:20 Dose: 200 mg Piperacillin Sod/Tazobactam (Sod 2.25 gm/ Dextrose) 50 mls @ 100 mls/hr IVPB Q8H-IV [facility]; Protocol Last Admin: 09/06/18 01:24 Dose: 100 mls/hr Insulin Aspart (Novolog Vial Sliding Scale -) 1 vial SQ ACHS [facility]; Protocol Last Admin: 09/06/18 06:48 Dose: 2 units Insulin Detemir (Levemir Vial) 10 units SQ DAILY@0700 [facility] Last Admin: 09/06/18 06:47 Dose: 10 units Losartan Potassium (Cozaar -) 100 mg PO DAILY [facility] Last Admin: 09/05/18 09:25 Dose: 100 mg Meclizine HCl (Antivert -) 12.5 mg PO BID PRN PRN Reason: VERTIGO Nifedipine (Procardia Xl -) 30 mg PO DAILY [facility] Last Admin: 09/05/18 09:25 Dose: 30 mg Polyethylene Glycol (Miralax (For Bowel Prep) -) 17 gm PO DAILY [facility] Last Admin: 09/05/18 09:26 Dose: Not Given Prednisone (Deltasone -) 20 mg PO DAILY [facility] Last Admin: 09/05/18 09:26 Dose: 20 mg Rosuvastatin Calcium (Crestor -) 5 mg PO [facility] Last Admin: 09/05/18 21:20 Dose: 5 mg Senna (Senna -) 2 tab PO [facility] Last Admin: 09/05/18 21:21 Dose: 2 tab Sitagliptin Phosphate (Januvia -) 50 mg PO DAILY@0700 [facility] Last Admin: 09/06/18 06:48 Dose: 50 mg Tiotropium [place] (Spiriva Respimat) 2 puff IH DAILY [facility] Last Admin: 09/05/18 09:26 Dose: 2 puff Warfarin Sodium (Coumadin -) 2.5 mg PO DAILY@1800 [facility] Last Admin: 09/05/18 17:36 Dose: 2.5 mg - Objective Vital Signs: Vital Signs Temperature 97.3 F L 09/06/18 06:07 Pulse Rate 75 09/06/18 06:07 Respiratory Rate 16 09/06/18 06:07 Blood Pressure 125/56 L 09/06/18 06:07 O2 Sat by Pulse Oximetry (%) 95 09/05/18 21:00 Constitutional: Yes: Calm Cardiovascular: Yes: Regular Rate and Rhythm Respiratory: Yes: CTA Bilaterally (decreased breath sounds bilaterally) Gastrointestinal: Yes: Soft, Abdomen, Obese Edema: Yes Edema: LLE: 1+, RLE: 1+ Neurological: Yes: Alert, Oriented Labs: CBC, BMP 09/06/18 06:45 09/06/18 06:45 INR, PTT INR 1.87 (0.83-1.09) H 09/06/18 06:45 Laboratory Tests 09/06/18 09/06/18 09/06/18 06:45 06:45 06:45 WBC 11.1 H Hgb 7.6 L Plt Count 209 INR 1.87 H Sodium 141 Potassium 4.4 BUN 31 H Creatinine 1.5 H - ....Imaging EKG: Image Reviewed Assessment/Plan IMP: Chronic anemia COPD Hx DVT/PE UTI REC: 1. Supplimental O2 2. Rx UTI as per PMD 3. INR now < 2- coumadin held several days for supratherapeutic INR. Resume Coumadin for INR goal 2-3 4. Switch PO Lasix
[2018-09-06] MEDS: GABAPENTIN 100 MG CAPSULE (FP) PO SCH ×2 (09:21→21:10)
[2018-09-06] MEDS: ACETAMINOPHEN 325 MG TABLET (FP) PO SCH ×2 (09:25→21:10)
[2018-09-06] MEDS: NIFEdipine E.R. 30 MG TABLET (FP) PO SCH (09:27)
[2018-09-06] MEDS: LOSARTAN POTASSIUM 50 MG TABLET (FP) PO SCH (09:27)
[2018-09-06] MEDS: TIOTROPIUM BROMIDE 2.5 MCG (SPIRIVA) RESPIMAT INHALER IH SCH (09:28)
[2018-09-06] MEDS: FUROSEMIDE 40 MG TABLET (FP) PO SCH (09:28)
[2018-09-06] MEDS: predniSONE 20 MG TABLET (UD) PO SCH (09:28)
[2018-09-06] MEDS: BUDESONIDE/FORMETEROL FUMARATE 160/4.5 mcg INHALER IH SCH ×2 (09:28→21:11)
[2018-09-06] MEDS: POLYETHYLENE GLYCOL 3350 255 GM BTL PO SCH (09:30)
[2018-09-06] MEDS: IRON POLYSACCHARIDES 150 MG CAPSULE PO SCH (10:55)
--- NOTE | 2018-09-06 12:03 | PN ---
Progress Note, Physician History of Present Illness: pulmonary alert,no distress,-cp,-sob - Current Medication List Current Medications: Active Medications Acetaminophen (Tylenol -) 1,300 mg PO BID [facility] Last Admin: 09/06/18 09:25 Dose: 1,300 mg Albuterol Sulfate (Ventolin 0.083% Nebulizer Soln -) 1 amp NEB Q4H PRN PRN Reason: SHORT OF BREATH/WHEEZING Last Admin: 09/05/18 17:42 Dose: 1 amp Artificial Tears (Artificial Tears) 1 drop OU BID PRN PRN Reason: DRY EYES Budesonide/Formoterol Fumarate (Symbicort 160/4.5mcg -) 2 puff IH BID [facility] Last Admin: 09/06/18 09:28 Dose: 2 puff Docusate Sodium (Colace -) 100 mg PO TID [facility] Last Admin: 09/06/18 06:04 Dose: Not Given Furosemide (Lasix -) 40 mg PO DAILY [facility] Last Admin: 09/06/18 09:28 Dose: 40 mg Gabapentin (Neurontin -) 200 mg PO BID [facility] Last Admin: 09/06/18 09:21 Dose: 200 mg Piperacillin Sod/Tazobactam (Sod 2.25 gm/ Dextrose) 50 mls @ 100 mls/hr IVPB Q8H-IV [facility]; Protocol Last Admin: 09/06/18 01:24 Dose: 100 mls/hr Insulin Aspart (Novolog Vial Sliding Scale -) 1 vial SQ ACHS [facility]; Protocol Last Admin: 09/06/18 06:48 Dose: 2 units Insulin Detemir (Levemir Vial) 10 units SQ DAILY@0700 [facility] Last Admin: 09/06/18 06:47 Dose: 10 units Losartan Potassium (Cozaar -) 100 mg PO DAILY [facility] Last Admin: 09/06/18 09:27 Dose: 100 mg Meclizine HCl (Antivert -) 12.5 mg PO BID PRN PRN Reason: VERTIGO Nifedipine (Procardia Xl -) 30 mg PO DAILY [facility] Last Admin: 09/06/18 09:27 Dose: 30 mg Polyethylene Glycol (Miralax (For Bowel Prep) -) 17 gm PO DAILY [facility] Last Admin: 09/06/18 09:30 Dose: Not Given Polysaccharide Iron Complex (Niferex-150 -) 150 mg PO DAILY [facility] Last Admin: 09/06/18 10:55 Dose: 150 mg Prednisone (Deltasone -) 20 mg PO DAILY [facility] Last Admin: 09/06/18 09:28 Dose: 20 mg Rosuvastatin Calcium (Crestor -) 5 mg PO HS [facility] Last Admin: 09/05/18 21:20 Dose: 5 mg Senna (Senna -) 2 tab PO HS [facility] Last Admin: 09/05/18 21:21 Dose: 2 tab Sitagliptin Phosphate (Januvia -) 50 mg PO DAILY@0700 [facility] Last Admin: 09/06/18 06:48 Dose: 50 mg Tiotropium [place] (Spiriva Respimat) 2 puff IH DAILY [facility] Last Admin: 09/06/18 09:28 Dose: 2 puff Warfarin Sodium (Coumadin -) 2.5 mg PO DAILY@1800 [facility] Last Admin: 09/05/18 17:36 Dose: 2.5 mg - Objective Vital Signs: Vital Signs Temperature 97.3 F L 09/06/18 06:07 Pulse Rate 75 09/06/18 06:07 Respiratory Rate 16 09/06/18 06:07 Blood Pressure 125/56 L 09/06/18 06:07 O2 Sat by Pulse Oximetry (%) 95 09/05/18 21:00 Constitutional: Yes: Calm, Obese Eyes: Yes: WNL HENT: Yes: WNL Neck: Yes: WNL Cardiovascular: Yes: Regular Rate and Rhythm, S1, S2 Respiratory: Yes: Diminished Gastrointestinal: Yes: Normal Bowel Sounds, Soft Extremities: Yes: WNL Edema: Yes Labs: CBC, BMP 09/06/18 06:45 09/06/18 06:45 INR, PTT INR 1.87 (0.83-1.09) H 09/06/18 06:45 Problem List - Problems (1) CKD (chronic kidney disease) Code(s): N18.9 - CHRONIC KIDNEY DISEASE, UNSPECIFIED (2) Chronic diastolic (congestive) heart failure Code(s): I50.32 - CHRONIC DIASTOLIC (CONGESTIVE) HEART FAILURE (3) Supratherapeutic INR Code(s): R79.1 - ABNORMAL COAGULATION PROFILE (4) Symptomatic anemia Code(s): D64.9 - ANEMIA, UNSPECIFIED (5) Acute on chronic diastolic (congestive) heart failure Code(s): I50.33 - ACUTE ON CHRONIC DIASTOLIC (CONGESTIVE) HEART FAILURE (6) Anemia Code(s): D64.9 - ANEMIA, UNSPECIFIED Qualifiers: Anemia type: unspecified type Qualified Code(s): D64.9 - Anemia, unspecified (7) CHF (congestive heart failure) Code(s): I50.9 - HEART FAILURE, UNSPECIFIED (8) Chronic respiratory failure with hypoxia, on home O2 therapy Code(s): J96.11 - CHRONIC RESPIRATORY FAILURE WITH HYPOXIA; Z99.81 - DEPENDENCE ON SUPPLEMENTAL OXYGEN (9) DVT (deep venous thrombosis) Code(s): I82.409 - ACUTE EMBOLISM AND THOMBOS UNSP DEEP VN UNSP LOWER EXTREMITY (10) Diabetes Code(s): E11.9 - TYPE 2 DIABETES MELLITUS WITHOUT COMPLICATIONS (11) Hypertension Code(s): I10 - ESSENTIAL (PRIMARY) HYPERTENSION (12) supervisor intermediates current use of anticoagulant Code(s): Z79.01 - MEDICAL CERTIFICATION SPECIALIST (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 OF 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 (13) Morbid obesity Code(s): E66.01 - MORBID (SEVERE) OBESITY DUE TO EXCESS CALORIES (14) Pulmonary embolus Code(s): I26.99 - OTHER PULMONARY EMBOLISM WITHOUT ACUTE COR PULMONALE (15) Pulmonary hypertension Code(s): I27.2 - OTHER SECONDARY PULMONARY HYPERTENSION * DO NOT USE * (16) SOB (shortness of breath) Code(s): R06.02 - SHORTNESS OF BREATH Assessment/Plan IMP SYMPTOMATIC ANEMIA COPD O2 DEPENDENT WITH CHRONIC HYPOXEMIC RESPIRATORY FAILURE CHRONIC THROMBOEMBOLIC PULMONARY HTN SUPRA-THERAPEUTIC INR DIASTOLIC HF HTN MORBID OBESITY DM PLAN O2 INHALED BRONCHODILATORS NORMAL TRANSFUSION THRESHOLD MONITOR INR MONITOR H+H LASIX PREDNISONE DR FOX Problem List - Problems (1) CKD (chronic kidney disease) Code(s): N18.9 - CHRONIC KIDNEY DISEASE, UNSPECIFIED (2) Chronic diastolic (congestive) heart failure Code(s): I50.32 - CHRONIC DIASTOLIC (CONGESTIVE) HEART FAILURE (3) Supratherapeutic INR Code(s): R79.1 - ABNORMAL COAGULATION PROFILE (4) Symptomatic anemia Code(s): D64.9 - ANEMIA, UNSPECIFIED (5) Acute on chronic diastolic (congestive) heart failure Code(s): I50.33 - ACUTE ON CHRONIC DIASTOLIC (CONGESTIVE) HEART FAILURE (6) Anemia Code(s): D64.9 - ANEMIA, UNSPECIFIED Qualifiers: Anemia type: unspecified type Qualified Code(s): D64.9 - Anemia, unspecified (7) CHF (congestive heart failure) Code(s): I50.9 - HEART FAILURE, UNSPECIFIED (8) Chronic respiratory failure with hypoxia, on home O2 therapy Code(s): J96.11 - CHRONIC RESPIRATORY FAILURE WITH HYPOXIA; Z99.81 - DEPENDENCE ON SUPPLEMENTAL OXYGEN (9) DVT (deep venous thrombosis) Code(s): I82.409 - ACUTE EMBOLISM AND THOMBOS UNSP DEEP VN UNSP LOWER EXTREMITY (10) Diabetes Code(s): E11.9 - TYPE 2 DIABETES MELLITUS WITHOUT COMPLICATIONS (11) Hypertension Code(s): I10 - ESSENTIAL (PRIMARY) HYPERTENSION (12) skilled nursing current use of anticoagulant Code(s): Z79.01 - SNF (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 OF 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 (13) Morbid obesity Code(s): E66.01 - MORBID (SEVERE) OBESITY DUE TO EXCESS CALORIES (14) Pulmonary embolus Code(s): I26.99 - OTHER PULMONARY EMBOLISM WITHOUT ACUTE COR PULMONALE (15) Pulmonary hypertension Code(s): I27.2 - OTHER SECONDARY PULMONARY HYPERTENSION * DO NOT USE * (16) SOB (shortness of breath) Code(s): R06.02 - SHORTNESS OF BREATH
--- NOTE | 2018-09-06 13:52 | PN ---
Progress Note, Physician History of Present Illness: patient doing well no complaints - Current Medication List Current Medications: Active Medications Acetaminophen (Tylenol -) 1,300 mg PO BID [facility] Last Admin: 09/06/18 09:25 Dose: 1,300 mg Albuterol Sulfate (Ventolin 0.083% Nebulizer Soln -) 1 amp NEB Q4H PRN PRN Reason: SHORT OF BREATH/WHEEZING Last Admin: 09/05/18 17:42 Dose: 1 amp Artificial Tears (Artificial Tears) 1 drop OU BID PRN PRN Reason: DRY EYES Budesonide/Formoterol Fumarate (Symbicort 160/4.5mcg -) 2 puff IH BID [facility] Last Admin: 09/06/18 09:28 Dose: 2 puff Docusate Sodium (Colace -) 100 mg PO TID [facility] Last Admin: 09/06/18 13:32 Dose: 100 mg Furosemide (Lasix -) 40 mg PO DAILY [facility] Last Admin: 09/06/18 09:28 Dose: 40 mg Gabapentin (Neurontin -) 200 mg PO BID [facility] Last Admin: 09/06/18 09:21 Dose: 200 mg Piperacillin Sod/Tazobactam (Sod 2.25 gm/ Dextrose) 50 mls @ 100 mls/hr IVPB Q8H-IV [facility]; Protocol Last Admin: 09/06/18 11:00 Dose: 100 mls/hr Insulin Aspart (Novolog Vial Sliding Scale -) 1 vial SQ ACHS [facility]; Protocol Last Admin: 09/06/18 11:50 Dose: 4 units Insulin Detemir (Levemir Vial) 10 units SQ DAILY@0700 [facility] Last Admin: 09/06/18 06:47 Dose: 10 units Losartan Potassium (Cozaar -) 100 mg PO DAILY [facility] Last Admin: 09/06/18 09:27 Dose: 100 mg Meclizine HCl (Antivert -) 12.5 mg PO BID PRN PRN Reason: VERTIGO Nifedipine (Procardia Xl -) 30 mg PO DAILY [facility] Last Admin: 09/06/18 09:27 Dose: 30 mg Polyethylene Glycol (Miralax (For Bowel Prep) -) 17 gm PO DAILY [facility] Last Admin: 09/06/18 09:30 Dose: Not Given Polysaccharide Iron Complex (Niferex-150 -) 150 mg PO DAILY [facility] Last Admin: 09/06/18 10:55 Dose: 150 mg Prednisone (Deltasone -) 20 mg PO DAILY [facility] Last Admin: 09/06/18 09:28 Dose: 20 mg Rosuvastatin Calcium (Crestor -) 5 mg PO [facility] Last Admin: 09/05/18 21:20 Dose: 5 mg Senna (Senna -) 2 tab PO HS [facility] Last Admin: 09/05/18 21:21 Dose: 2 tab Sitagliptin Phosphate (Januvia -) 50 mg PO DAILY@0700 [facility] Last Admin: 09/06/18 06:48 Dose: 50 mg Tiotropium [place] (Spiriva Respimat) 2 puff IH DAILY [facility] Last Admin: 09/06/18 09:28 Dose: 2 puff Warfarin Sodium (Coumadin -) 3 mg PO DAILY@1800 [facility] - Objective Vital Signs: Vital Signs Temperature 97.3 F L 09/06/18 06:07 Pulse Rate 75 09/06/18 06:07 Respiratory Rate 16 09/06/18 06:07 Blood Pressure 125/56 L 09/06/18 06:07 O2 Sat by Pulse Oximetry (%) 95 09/05/18 21:00 Constitutional: Yes: No Distress, Calm, Obese Cardiovascular: Yes: S1, S2 Respiratory: Yes: Regular, On Nasal O2, Poor Air Entry Gastrointestinal: Yes: Normal Bowel Sounds, Soft Musculoskeletal: Yes: WNL Extremities: Yes: WNL Neurological: Yes: Alert, Oriented Psychiatric: Yes: Alert, Oriented Labs: CBC, BMP 09/06/18 06:45 09/06/18 06:45 INR, PTT INR 1.87 (0.83-1.09) H 09/06/18 06:45 Assessment/Plan Problem List - Problems (1) Symptomatic anemia Code(s): D64.9 - ANEMIA, UNSPECIFIED (2) UTI (urinary tract infection) Code(s): N39.0 - URINARY TRACT INFECTION, SITE NOT SPECIFIED (3) Unsteady gait Code(s): R26.81 - UNSTEADINESS ON FEET (4) Supratherapeutic INR Code(s): R79.1 - ABNORMAL COAGULATION PROFILE (5) Chronic diastolic (congestive) heart failure Code(s): I50.32 - CHRONIC DIASTOLIC (CONGESTIVE) HEART FAILURE (6) Hypertension Code(s): I10 - ESSENTIAL (PRIMARY) HYPERTENSION (7) COPD (chronic obstructive pulmonary disease) Code(s): J44.9 - CHRONIC OBSTRUCTIVE PULMONARY DISEASE, UNSPECIFIED (8) DVT (deep venous thrombosis) Code(s): I82.409 - ACUTE EMBOLISM AND THOMBOS UNSP DEEP VN UNSP LOWER EXTREMITY (9) HLD (hyperlipidemia) Assessment/Plan: Cont crestor Code(s): E78.5 - HYPERLIPIDEMIA, UNSPECIFIED (10) History of pulmonary embolism Code(s): Z86.711 - PERSONAL HISTORY OF PULMONARY EMBOLISM (11) CKD (chronic kidney disease) Code(s): N18.9 - CHRONIC KIDNEY DISEASE, UNSPECIFIED (12) Diabetes Code(s): E11.9 - TYPE 2 DIABETES MELLITUS WITHOUT COMPLICATIONS (13) Coronary artery disease Code(s): I25.10 - ATHSCL HEART DISEASE OF [place] CORONARY ARTERY W/O ANG PCTRS (14) Morbid obesity Code(s): E66.01 - MORBID (SEVERE) OBESITY DUE TO EXCESS CALORIES plan continue current mgmt incentive schuyler can send the patient on augmentin 500 mg bid for 5 more days
--- NOTE | 2018-09-06 14:02 | PN ---
Progress Note (short form) - Note Progress Note: Patient seen and examined at bedside [facility]els "okay" Vital Signs Temperature 97.3 F L 09/06/18 06:07 Pulse Rate 75 09/06/18 06:07 Respiratory Rate 16 09/06/18 06:07 Blood Pressure 125/56 L 09/06/18 06:07 O2 Sat by Pulse Oximetry (%) 95 09/05/18 21:00 PE: Constitutional: Yes: No Distress, Obese Eyes: Yes: PERRL, Other (conjunctival pallor) HENT: Yes: Atraumatic Neck: Yes: Supple. No: Lymphadenopathy Cardiovascular: Yes: Regular Rate and Rhythm Respiratory: Yes: Diminished Gastrointestinal: Yes: Soft, Abdomen, Obese. No: Tenderness Edema: Yes (trace LE edema) Integumentary: Yes: Bruising Neurological: Yes: Alert, Oriented 09/06/18 09/06/18 09/06/18 06:45 06:45 06:45 WBC 11.1 H RBC 3.08 L Hgb 7.6 L Hct 26.2 L MCV 85.2 MCHC 28.9 L RDW 15.0 Plt Count 209 Neutrophils % 72.3 Lymphocytes % 17.5 D Monocytes % 9.0 Eosinophils % 0.9 D Basophils % 0.3 INR 1.87 H Sodium 141 Potassium 4.4 Chloride 96 L Carbon Dioxide 45 H Anion Gap 1 L BUN 31 H Creatinine 1.5 H 08/31/18 09:30 Urine Culture - Final Urine - Urine - Catheterized Klebsiella Pneumoniae Enterococcus Faecalis Staphylococcus Aureus A/P 68M with extensive medical history presents for symptomatic anemia. Problem List: Shortness of breath supratherapeutic INR Stool occult blood positive History of PE/DVT History of CVA Morbid obesity chronic anemia diastolic CHF paroxysmal A fib constipation pulmonary HTN HTN IDDM CKD COPD on 3L NC Plan: Patient on coumadin Started on Niferex 150mg po daily Patient being discharged today Follow up as outpatient
--- NOTE | 2018-09-06 14:05 | DS ---
Physical Examination Vital Signs: Vital Signs Temperature 97.3 F L 09/06/18 06:07 Pulse Rate 75 09/06/18 06:07 Respiratory Rate 16 09/06/18 06:07 Blood Pressure 125/56 L 09/06/18 06:07 O2 Sat by Pulse Oximetry (%) 95 09/05/18 21:00 Constitutional: Yes: Well Nourished Neck: Yes: WNL, Supple Cardiovascular: Yes: WNL, Regular Rate and Rhythm Respiratory: Yes: WNL, Regular, CTA Bilaterally Gastrointestinal: Yes: WNL, Normal Bowel Sounds, Soft Labs: CBC, BMP 09/06/18 06:45 09/06/18 06:45 Discharge Summary Reason For Visit: ANEMIA Current Active Problems Symptomatic anemia CKD (chronic kidney disease) (Acute) Acute on chronic diastolic (congestive) heart failure (Acute) Diabetes (Acute) Supratherapeutic INR (Acute) Symptomatic anemia (Acute) UTI (urinary tract infection) (Acute) Unsteady gait (Acute) Myopathy COPD HTN HLD Morbid obesity Hospital Course: Pt is 68 y/o female who was sent from SNF for symptomatic anemia and was transfused PRBC's and her H/H remained stable. Pt was seen by heme and GI who felt that pt is at increased risk for colonscopy/EGD and at this time will treat her anemia conservatively. Pt also found to have supratherapeutic PT/INR and coumadin was held and is now restarted. Her coumadin dose today was found to be 1.87 and her coumadin dose was increased to 3mg daily. However her PT/INR will need to be checked in next 48 hrs and coumadin dose adjusted accordingly. Pt also found to have UTI and was started on IV antibxs and she was seen by ID and antibiotic now changed to po augmentin. Pt was also followed by ID. Urine culture (+) for klebsiella/enterococcus. Pt was also seen by neuro for her unsteady gait and being bedbound. 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 Pt will need to have prednisone tapered and pt will need to have physical therapy. Condition: Good - Instructions Diet, Activity, Other Instructions: 2 gram sodium diet Patient will need to have prednisone tapered especially with her myopathy for which she will also need physical therapy Patient also needs to see type cutter for her catarracts Patient will also need to have her PT/INR checked as her PT/INR today is 1.87 and the coumadin dose was increased to 3mg daily and will need to be adjusted to keep PT/INR between 2.5-3.0 Pt will also need to have her hemoglobin/ hemocrit checked regularly Referrals: Scotty Martínez [Primary Care Provider] - Disposition: [facility] FACILITY - Home Medications Comprehensive Discharge Medication List: Ambulatory Orders Acetaminophen [Tylenol] 650 mg PO BID 01/08/18 Albuterol 0.083% Nebulizer Claudia [Ventolin 0.083% Nebulizer Soln -] 1 neb NEB Q4H PRN 01/08/18 Cyclosporine [Restasis] 1 drop OU BID 01/08/18 Ferrous Sulfate [Feosol] 325 mg PO DAILY 01/08/18 Insulin Glargine,Hum.rec.anlog [Lantus Solostar] 10 unit SQ DAILY 01/08/18 Meclizine HCl 12.5 mg PO DAILY 01/08/18 Nifedipine ER [Procardia XL -] 30 mg PO DAILY 01/08/18 Polyethylene Glycol 3350 [Glycolax] 17 gm PO DAILY 01/08/18 Rosuvastatin Calcium [Crestor] 5 mg PO HS 01/08/18 Sennosides [Natural Laxative] 2 tab PO HS 01/08/18 Warfarin Na [Coumadin -] 3.5 mg PO HS 01/08/18 Furosemide [Lasix -] 40 mg PO BID 08/31/18 Gabapentin 200 mg PO TID 08/31/18 Losartan Potassium 100 mg PO DAILY 08/31/18 Sitagliptin Phosphate [Januvia -] 50 mg PO DAILY 08/31/18 Warfarin Na [Coumadin -] 3 mg PO DAILY@1800 08/31/18 Albuterol 0.083% Nebulizer [place] [Ventolin 0.083% Nebulizer Soln -] 1 amp NEB DAILY 09/01/18 Budesonide/Formeterol Fumarate [SYMBICORT 160/4.5mcg -] 2 inh PO BID 09/01/18 Cholecalciferol (Vitamin D3) [Decara] 50,000 unit PO MONTHLY 09/01/18 Fluticasone Prop 0.05% Nasal [Flonase -] 1 spray NS DAILY 09/01/18 Levalbuterol Tartrate [Xopenex Hfa] 2 puff IH Q4H PRN 09/01/18 Menthol/Zinc Oxide [Calmoseptine Ointment] 1 applic TP DAILY 09/01/18 Polyvinyl Alcohol [Artificial Tears] 1 drop OU BID 09/01/18 Tiotropium [place] [Spiriva Respimat] 2 puff IH DAILY 09/01/18 Amox-Tr/K Cl [Augmentin - 875Mg Tablet] 1 tab PO BID #14 tablet 09/06/18 Budesonide/Formeterol Fumarate [SYMBICORT 160/4.5mcg -] 2 puff IH BID inhaler 09/06/18 Docusate Sodium [Colace -] 100 mg PO TID capsule 09/06/18 Furosemide [Lasix -] 40 mg PO DAILY tablet 09/06/18 Insulin Sliding Scale [Novolog Vial Sliding Scale -] 1 vial SQ ACHS units 09/06 Iron Polysaccharides [Niferex-150 -] 150 mg PO DAILY capsule 09/06/18 Polyvinyl Alcohol [Artificial Tears] 1 drop OU BID PRN drops 09/06/18 Tiotropium [place] [Spiriva Respimat] 2 puff IH DAILY inhaler 09/06/18 Warfarin Na [Coumadin -] 3 mg PO DAILY@1800 tablet 09/06/18 predniSONE [Deltasone -] 20 mg PO DAILY tablet 09/06/18
[2018-09-06] MEDS ORDERED: WARFARIN NA 3 MG TABLET PO SCH (18:00)
--- NOTE | 2018-09-06 18:42 | PN ---
Progress Note, Physician History of Present Illness: No new complaints - Current Medication List Current Medications: Active Medications Acetaminophen (Tylenol -) 1,300 mg PO BID [facility] Last Admin: 09/06/18 09:25 Dose: 1,300 mg Artificial Tears (Artificial Tears) 1 drop OU BID PRN PRN Reason: DRY EYES Budesonide/Formoterol Fumarate (Symbicort 160/4.5mcg -) 2 puff IH BID [facility] Last Admin: 09/06/18 09:28 Dose: 2 puff Docusate Sodium (Colace -) 100 mg PO TID [facility] Last Admin: 09/06/18 13:32 Dose: 100 mg Furosemide (Lasix -) 40 mg PO DAILY [facility] Last Admin: 09/06/18 09:28 Dose: 40 mg Gabapentin (Neurontin -) 200 mg PO BID [facility] Last Admin: 09/06/18 09:21 Dose: 200 mg Piperacillin Sod/Tazobactam (Sod 2.25 gm/ Dextrose) 50 mls @ 100 mls/hr IVPB Q8H-IV [facility]; Protocol Last Admin: 09/06/18 17:02 Dose: 100 mls/hr Insulin Aspart (Novolog Vial Sliding Scale -) 1 vial SQ ACHS [facility]; Protocol Last Admin: 09/06/18 16:58 Dose: 4 units Insulin Detemir (Levemir Vial) 10 units SQ DAILY@0700 [facility] Last Admin: 09/06/18 06:47 Dose: 10 units Losartan Potassium (Cozaar -) 100 mg PO DAILY [facility] Last Admin: 09/06/18 09:27 Dose: 100 mg Meclizine HCl (Antivert -) 12.5 mg PO BID PRN PRN Reason: VERTIGO Nifedipine (Procardia Xl -) 30 mg PO DAILY [facility] Last Admin: 09/06/18 09:27 Dose: 30 mg Polyethylene Glycol (Miralax (For Bowel Prep) -) 17 gm PO DAILY [facility] Last Admin: 09/06/18 09:30 Dose: Not Given Polysaccharide Iron Complex (Niferex-150 -) 150 mg PO DAILY [facility] Last Admin: 09/06/18 10:55 Dose: 150 mg Prednisone (Deltasone -) 20 mg PO DAILY [facility] Last Admin: 09/06/18 09:28 Dose: 20 mg Rosuvastatin Calcium (Crestor -) 5 mg PO HS [facility] Last Admin: 09/05/18 21:20 Dose: 5 mg Senna (Senna -) 2 tab PO HS [facility] Last Admin: 09/05/18 21:21 Dose: 2 tab Sitagliptin Phosphate (Januvia -) 50 mg PO DAILY@0700 [facility] Last Admin: 09/06/18 06:48 Dose: 50 mg Tiotropium [place] (Spiriva Respimat) 2 puff IH DAILY [facility] Last Admin: 09/06/18 09:28 Dose: 2 puff Warfarin Sodium (Coumadin -) 3 mg PO DAILY@1800 [facility] Last Admin: 09/06/18 17:01 Dose: 3 mg - Objective Vital Signs: Vital Signs Temperature 97.8 F 09/06/18 16:00 Pulse Rate 85 09/06/18 16:00 Respiratory Rate 18 09/06/18 16:00 Blood Pressure 132/69 09/06/18 16:00 O2 Sat by Pulse Oximetry (%) 97 09/06/18 09:00 Constitutional: Yes: Obese Neck: Yes: WNL, Supple Cardiovascular: Yes: WNL, Regular Rate and Rhythm Respiratory: Yes: WNL, Regular, CTA Bilaterally Gastrointestinal: Yes: WNL, Normal Bowel Sounds, Soft, Abdomen, Obese Labs: CBC, BMP 09/06/18 06:45 09/06/18 06:45 INR, PTT INR 1.87 (0.83-1.09) H 09/06/18 06:45 Problem List - Problems (1) Symptomatic anemia Code(s): D64.9 - ANEMIA, UNSPECIFIED (2) UTI (urinary tract infection) Code(s): N39.0 - URINARY TRACT INFECTION, SITE NOT SPECIFIED (3) Unsteady gait Code(s): R26.81 - UNSTEADINESS ON FEET (4) Supratherapeutic INR Code(s): R79.1 - ABNORMAL COAGULATION PROFILE (5) Chronic diastolic (congestive) heart failure Code(s): I50.32 - CHRONIC DIASTOLIC (CONGESTIVE) HEART FAILURE (6) Hypertension Code(s): I10 - ESSENTIAL (PRIMARY) HYPERTENSION (7) COPD (chronic obstructive pulmonary disease) Code(s): J44.9 - CHRONIC OBSTRUCTIVE PULMONARY DISEASE, UNSPECIFIED (8) DVT (deep venous thrombosis) Code(s): I82.409 - ACUTE EMBOLISM AND THOMBOS UNSP DEEP VN UNSP LOWER EXTREMITY (9) HLD (hyperlipidemia) Code(s): E78.5 - HYPERLIPIDEMIA, UNSPECIFIED (10) History of pulmonary embolism Code(s): Z86.711 - PERSONAL HISTORY OF PULMONARY EMBOLISM (11) CKD (chronic kidney disease) Code(s): N18.9 - CHRONIC KIDNEY DISEASE, UNSPECIFIED (12) Diabetes Code(s): E11.9 - TYPE 2 DIABETES MELLITUS WITHOUT COMPLICATIONS (13) Coronary artery disease Code(s): I25.10 - ATHSCL HEART DISEASE OF [place] CORONARY ARTERY W/O ANG PCTRS (14) Morbid obesity Code(s): E66.01 - MORBID (SEVERE) OBESITY DUE TO EXCESS CALORIES
[2018-09-06] MEDS: SENNOSIDES 8.6MG TABLET (FP) PO SCH (21:10)
[2018-09-06] MEDS: ROSUVASTATIN CA 5 MG TABLET (FP) PO SCH (21:10)
[2018-09-07] MEDS ORDERED: PIPERACILLIN/TAZOBACTAM 2.25 GM VIAL IVPB ONE ×2 (00:34→09:16)
[2018-09-07] MEDS ORDERED: DEXTROSE 5%-WATER - 50 ML IVPB ONE ×2 (00:35→09:16)
[2018-09-07] MEDS: PIPERACILLIN/TAZOB 2.25 GM 2.25 GM in DEXTROSE 5%-WATER - 50 ML IVPB SCH ×2 (01:05→09:21)
[2018-09-07] MEDS: INSULIN SLIDING SCALE (NOVOLOG) 1 VIAL SQ SCH ×2 (06:00→12:48)
[2018-09-07 06:27] LABS: INR 2.25 (0.83-1.09); PROTHROMBIN TIME (PATIENT) 26.8 SEC (9.7-13.0)
[2018-09-07] MEDS: sitaGLIPtin PHOSPHATE 50 MG TABLET PO SCH (06:27)
[2018-09-07] MEDS: INSULIN (LEVEMIR) 100 UNITS/ML UNITS SQ SCH (06:27)
[2018-09-07] MEDS: DOCUSATE SODIUM 100 MG CAPSULE (FP) PO SCH (06:27)
[2018-09-07 06:42] VITALS: TEMP 98.2
--- NOTE | 2018-09-07 09:03 | PN ---
Progress Note, Physician Chief Complaint: sitting in bed, no acute distress No CP TELE: NSR - Current Medication List Current Medications: Active Medications Acetaminophen (Tylenol -) 1,300 mg PO BID [facility] Last Admin: 09/06/18 21:10 Dose: 1,300 mg Artificial Tears (Artificial Tears) 1 drop OU BID PRN PRN Reason: DRY EYES Budesonide/Formoterol Fumarate (Symbicort 160/4.5mcg -) 2 puff IH BID [facility] Last Admin: 09/06/18 21:11 Dose: 2 puff Docusate Sodium (Colace -) 100 mg PO TID [facility] Last Admin: 09/07/18 06:27 Dose: 100 mg Furosemide (Lasix -) 40 mg PO DAILY [facility] Last Admin: 09/06/18 09:28 Dose: 40 mg Gabapentin (Neurontin -) 200 mg PO BID [facility] Last Admin: 09/06/18 21:10 Dose: 200 mg Piperacillin Sod/Tazobactam (Sod 2.25 gm/ Dextrose) 50 mls @ 100 mls/hr IVPB Q8H-IV [facility]; Protocol Last Admin: 09/07/18 01:05 Dose: 100 mls/hr Insulin Aspart (Novolog Vial Sliding Scale -) 1 vial SQ ACHS [facility]; Protocol Last Admin: 09/07/18 06:00 Dose: Not Given Insulin Detemir (Levemir Vial) 10 units SQ DAILY@0700 [facility] Last Admin: 09/07/18 06:27 Dose: 10 units Losartan Potassium (Cozaar -) 100 mg PO DAILY [facility] Last Admin: 09/06/18 09:27 Dose: 100 mg Meclizine HCl (Antivert -) 12.5 mg PO BID PRN PRN Reason: VERTIGO Nifedipine (Procardia Xl -) 30 mg PO DAILY [facility] Last Admin: 09/06/18 09:27 Dose: 30 mg Polyethylene Glycol (Miralax (For Bowel Prep) -) 17 gm PO DAILY [facility] Last Admin: 09/06/18 09:30 Dose: Not Given Polysaccharide Iron Complex (Niferex-150 -) 150 mg PO DAILY [facility] Last Admin: 09/06/18 10:55 Dose: 150 mg Prednisone (Deltasone -) 20 mg PO DAILY [facility] Last Admin: 09/06/18 09:28 Dose: 20 mg Rosuvastatin Calcium (Crestor -) 5 mg PO HS [facility] Last Admin: 11/12/18 21:10 Dose: 5 mg Senna (Senna -) 2 tab PO [facility] Last Admin: 09/06/18 21:10 Dose: 2 tab Sitagliptin Phosphate (Januvia -) 50 mg PO DAILY@0700 [facility] Last Admin: 09/07/18 06:27 Dose: 50 mg Tiotropium [place] (Spiriva Respimat) 2 puff IH DAILY [facility] Last Admin: 09/06/18 09:28 Dose: 2 puff Warfarin Sodium (Coumadin -) 3 mg PO DAILY@1800 [facility] Last Admin: 09/06/18 17:01 Dose: 3 mg - Objective Vital Signs: Vital Signs Temperature 98.2 F 09/07/18 06:40 Pulse Rate 77 09/07/18 02:03 Respiratory Rate 18 09/07/18 06:40 Blood Pressure 133/61 09/07/18 06:40 O2 Sat by Pulse Oximetry (%) 97 09/06/18 21:00 Constitutional: Yes: No Distress, Calm Cardiovascular: Yes: Regular Rate and Rhythm Respiratory: Yes: Other (decreased breath sounds no active wheezing.) Gastrointestinal: Yes: Soft, Abdomen, Obese Edema: Yes Edema: LLE: 1+, RLE: 1+ Neurological: Yes: Alert, Oriented Labs: CBC, BMP 09/06/18 06:45 09/06/18 06:45 INR, PTT INR 2.25 (0.83-1.09) H 09/07/18 05:40 Laboratory Tests 09/06/18 09/06/18 09/07/18 06:45 06:45 05:40 WBC 11.1 H Hgb 7.6 L Plt Count 209 INR 2.25 H Sodium 141 Potassium 4.4 BUN 31 H Creatinine 1.5 H - ....Imaging EKG: Image Reviewed Assessment/Plan IMP: Chronic anemia COPD Hx DVT/PE UTI REC: 1. Supplimental O2 2. Rx UTI as per PMD 3. INR 2-3 4. PO Lasix 5. D/ C telemetry
[2018-09-07] MEDS ORDERED: PT OWN MED DRAWER 7, Y5N ONE ×3 (09:15→13:37)
[2018-09-07] MEDS: FUROSEMIDE 40 MG TABLET (FP) PO SCH (09:21)
[2018-09-07] MEDS: GABAPENTIN 100 MG CAPSULE (FP) PO SCH (09:21)
[2018-09-07] MEDS: LOSARTAN POTASSIUM 50 MG TABLET (FP) PO SCH (09:21)
[2018-09-07] MEDS: predniSONE 20 MG TABLET (UD) PO SCH (09:21)
[2018-09-07] MEDS: NIFEdipine E.R. 30 MG TABLET (FP) PO SCH (09:21)
[2018-09-07] MEDS: POLYETHYLENE GLYCOL 3350 255 GM BTL PO SCH (09:22)
[2018-09-07] MEDS: TIOTROPIUM BROMIDE 2.5 MCG (SPIRIVA) RESPIMAT INHALER IH SCH (09:22)
[2018-09-07] MEDS: BUDESONIDE/FORMETEROL FUMARATE 160/4.5 mcg INHALER IH SCH (09:22)
[2018-09-07] MEDS: IRON POLYSACCHARIDES 150 MG CAPSULE PO SCH (09:22)
[2018-09-07] MEDS: ACETAMINOPHEN 325 MG TABLET (FP) PO SCH (09:23)
--- NOTE | 2018-09-07 11:48 | PN ---
Progress Note, Physician History of Present Illness: patient doing well no complaints - Current Medication List Current Medications: Active Medications Acetaminophen (Tylenol -) 1,300 mg PO BID [facility] Last Admin: 09/07/18 09:23 Dose: 1,300 mg Artificial Tears (Artificial Tears) 1 drop OU BID PRN PRN Reason: DRY EYES Budesonide/Formoterol Fumarate (Symbicort 160/4.5mcg -) 2 puff IH BID [facility] Last Admin: 09/07/18 09:22 Dose: 2 puff Docusate Sodium (Colace -) 100 mg PO TID [facility] Last Admin: 09/07/18 06:27 Dose: 100 mg Furosemide (Lasix -) 40 mg PO DAILY [facility] Last Admin: 09/07/18 09:21 Dose: 40 mg Gabapentin (Neurontin -) 200 mg PO BID [facility] Last Admin: 09/07/18 09:21 Dose: 200 mg Piperacillin Sod/Tazobactam (Sod 2.25 gm/ Dextrose) 50 mls @ 100 mls/hr IVPB Q8H-IV [facility]; Protocol Last Admin: 09/07/18 09:21 Dose: 100 mls/hr Insulin Aspart (Novolog Vial Sliding Scale -) 1 vial SQ ACHS [facility]; Protocol Last Admin: 09/07/18 06:00 Dose: Not Given Insulin Detemir (Levemir Vial) 10 units SQ DAILY@0700 [facility] Last Admin: 09/07/18 06:27 Dose: 10 units Losartan Potassium (Cozaar -) 100 mg PO DAILY [facility] Last Admin: 09/07/18 09:21 Dose: 100 mg Meclizine HCl (Antivert -) 12.5 mg PO BID PRN PRN Reason: VERTIGO Nifedipine (Procardia Xl -) 30 mg PO DAILY [facility] Last Admin: 09/07/18 09:21 Dose: 30 mg Polyethylene Glycol (Miralax (For Bowel Prep) -) 17 gm PO DAILY [facility] Last Admin: 09/07/18 09:22 Dose: Not Given Polysaccharide Iron Complex (Niferex-150 -) 150 mg PO DAILY [facility] Last Admin: 09/07/18 09:22 Dose: 150 mg Prednisone (Deltasone -) 20 mg PO DAILY [facility] Last Admin: 09/07/18 09:21 Dose: 20 mg Rosuvastatin Calcium (Crestor -) 5 mg PO HS [facility] Last Admin: 09/06/18 21:10 Dose: 5 mg Senna (Senna -) 2 tab PO HS [facility] Last Admin: 09/06/18 21:10 Dose: 2 tab Sitagliptin Phosphate (Januvia -) 50 mg PO DAILY@0700 [facility] Last Admin: 09/07/18 06:27 Dose: 50 mg Tiotropium [place] (Spiriva Respimat) 2 puff IH DAILY [facility] Last Admin: 09/07/18 09:22 Dose: 2 puff Warfarin Sodium (Coumadin -) 3 mg PO DAILY@1800 [facility] Last Admin: 09/06/18 17:01 Dose: 3 mg - Objective Vital Signs: Vital Signs Temperature 98.2 F 09/07/18 06:40 Pulse Rate 77 09/07/18 02:03 Respiratory Rate 18 09/07/18 06:40 Blood Pressure 133/61 09/07/18 06:40 O2 Sat by Pulse Oximetry (%) 97 09/06/18 21:00 Constitutional: Yes: No Distress, Calm Cardiovascular: Yes: Regular Rate and Rhythm Respiratory: Yes: Regular, CTA Bilaterally Gastrointestinal: Yes: Normal Bowel Sounds, Soft Musculoskeletal: Yes: WNL Extremities: Yes: WNL Neurological: Yes: Alert, Oriented Psychiatric: Yes: Alert, Oriented Labs: CBC, BMP 09/06/18 06:45 09/06/18 06:45 INR, PTT INR 2.25 (0.83-1.09) H 09/07/18 05:40 Assessment/Plan Problem List - Problems (1) Symptomatic anemia Code(s): D64.9 - ANEMIA, UNSPECIFIED (2) UTI (urinary tract infection) Code(s): N39.0 - URINARY TRACT INFECTION, SITE NOT SPECIFIED (3) Unsteady gait Code(s): R26.81 - UNSTEADINESS ON FEET (4) Supratherapeutic INR Code(s): R79.1 - ABNORMAL COAGULATION PROFILE (5) Chronic diastolic (congestive) heart failure Code(s): I50.32 - CHRONIC DIASTOLIC (CONGESTIVE) HEART FAILURE (6) Hypertension Code(s): I10 - ESSENTIAL (PRIMARY) HYPERTENSION (7) COPD (chronic obstructive pulmonary disease) Code(s): J44.9 - CHRONIC OBSTRUCTIVE PULMONARY DISEASE, UNSPECIFIED (8) DVT (deep venous thrombosis) Code(s): I82.409 - ACUTE EMBOLISM AND THOMBOS UNSP DEEP VN UNSP LOWER EXTREMITY (9) HLD (hyperlipidemia) Assessment/Plan: Cont crestor Code(s): E78.5 - HYPERLIPIDEMIA, UNSPECIFIED (10) History of pulmonary embolism Code(s): Z86.711 - PERSONAL HISTORY OF PULMONARY EMBOLISM (11) CKD (chronic kidney disease) Code(s): N18.9 - CHRONIC KIDNEY DISEASE, UNSPECIFIED (12) Diabetes Code(s): E11.9 - TYPE 2 DIABETES MELLITUS WITHOUT COMPLICATIONS (13) Coronary artery disease Code(s): I25.10 - ATHSCL HEART DISEASE OF [place] CORONARY ARTERY W/O ANG PCTRS (14) Morbid obesity Code(s): E66.01 - MORBID (SEVERE) OBESITY DUE TO EXCESS CALORIES plan continue current mgmt incentive schuyler can send the patient on augmentin 500 mg bid for 5 more days
--- NOTE | 2018-09-07 11:57 | PN ---
Progress Note, Physician History of Present Illness: pulmonary alert,feeling better,-resp distress - Current Medication List Current Medications: Active Medications Acetaminophen (Tylenol -) 1,300 mg PO BID [facility] Last Admin: 09/07/18 09:23 Dose: 1,300 mg Artificial Tears (Artificial Tears) 1 drop OU BID PRN PRN Reason: DRY EYES Budesonide/Formoterol Fumarate (Symbicort 160/4.5mcg -) 2 puff IH BID [facility] Last Admin: 09/07/18 09:22 Dose: 2 puff Docusate Sodium (Colace -) 100 mg PO TID [facility] Last Admin: 09/07/18 06:27 Dose: 100 mg Furosemide (Lasix -) 40 mg PO DAILY [facility] Last Admin: 09/07/18 09:21 Dose: 40 mg Gabapentin (Neurontin -) 200 mg PO BID [facility] Last Admin: 09/07/18 09:21 Dose: 200 mg Piperacillin Sod/Tazobactam (Sod 2.25 gm/ Dextrose) 50 mls @ 100 mls/hr IVPB Q8H-IV [facility]; Protocol Last Admin: 09/07/18 09:21 Dose: 100 mls/hr Insulin Aspart (Novolog Vial Sliding Scale -) 1 vial SQ ACHS [facility]; Protocol Last Admin: 09/07/18 06:00 Dose: Not Given Insulin Detemir (Levemir Vial) 10 units SQ DAILY@0700 [facility] Last Admin: 09/07/18 06:27 Dose: 10 units Losartan Potassium (Cozaar -) 100 mg PO DAILY [facility] Last Admin: 09/07/18 09:21 Dose: 100 mg Meclizine HCl (Antivert -) 12.5 mg PO BID PRN PRN Reason: VERTIGO Nifedipine (Procardia Xl -) 30 mg PO DAILY [facility] Last Admin: 09/07/18 09:21 Dose: 30 mg Polyethylene Glycol (Miralax (For Bowel Prep) -) 17 gm PO DAILY [facility] Last Admin: 09/07/18 09:22 Dose: Not Given Polysaccharide Iron Complex (Niferex-150 -) 150 mg PO DAILY [facility] Last Admin: 09/07/18 09:22 Dose: 150 mg Prednisone (Deltasone -) 20 mg PO DAILY [facility] Last Admin: 09/07/18 09:21 Dose: 20 mg Rosuvastatin Calcium (Crestor -) 5 mg PO HS [facility] Last Admin: 09/06/18 21:10 Dose: 5 mg Senna (Senna -) 2 tab PO [facility] Last Admin: 09/06/18 21:10 Dose: 2 tab Sitagliptin Phosphate (Januvia -) 50 mg PO DAILY@0700 [facility] Last Admin: 09/07/18 06:27 Dose: 50 mg Tiotropium [place] (Spiriva Respimat) 2 puff IH DAILY [facility] Last Admin: 09/07/18 09:22 Dose: 2 puff Warfarin Sodium (Coumadin -) 3 mg PO DAILY@1800 [facility] Last Admin: 09/06/18 17:01 Dose: 3 mg - Objective Vital Signs: Vital Signs Temperature 98.2 F 09/07/18 06:40 Pulse Rate 77 09/07/18 02:03 Respiratory Rate 18 09/07/18 06:40 Blood Pressure 133/61 09/07/18 06:40 O2 Sat by Pulse Oximetry (%) 97 09/06/18 21:00 Constitutional: Yes: Calm, Obese Eyes: Yes: WNL HENT: Yes: WNL Neck: Yes: WNL Cardiovascular: Yes: Regular Rate and Rhythm, S1, S2 Respiratory: Yes: Diminished Gastrointestinal: Yes: Normal Bowel Sounds, Soft Extremities: Yes: WNL Edema: Yes Labs: CBC, BMP Problem List - Problems (1) CKD (chronic kidney disease) Code(s): N18.9 - CHRONIC KIDNEY DISEASE, UNSPECIFIED (2) Chronic diastolic (congestive) heart failure Code(s): I50.32 - CHRONIC DIASTOLIC (CONGESTIVE) HEART FAILURE (3) Supratherapeutic INR Code(s): R79.1 - ABNORMAL COAGULATION PROFILE (4) Symptomatic anemia Code(s): D64.9 - ANEMIA, UNSPECIFIED (5) Acute on chronic diastolic (congestive) heart failure Code(s): I50.33 - ACUTE ON CHRONIC DIASTOLIC (CONGESTIVE) HEART FAILURE (6) Anemia Code(s): D64.9 - ANEMIA, UNSPECIFIED Qualifiers: Anemia type: unspecified type Qualified Code(s): D64.9 - Anemia, unspecified (7) CHF (congestive heart failure) Code(s): I50.9 - HEART FAILURE, UNSPECIFIED (8) Chronic respiratory failure with hypoxia, on home O2 therapy Code(s): J96.11 - CHRONIC RESPIRATORY FAILURE WITH HYPOXIA; Z99.81 - DEPENDENCE ON SUPPLEMENTAL OXYGEN (9) DVT (deep venous thrombosis) Code(s): I82.409 - ACUTE EMBOLISM AND THOMBOS UNSP DEEP VN UNSP LOWER EXTREMITY (10) Diabetes Code(s): E11.9 - TYPE 2 DIABETES MELLITUS WITHOUT COMPLICATIONS (11) Hypertension Code(s): I10 - ESSENTIAL (PRIMARY) HYPERTENSION (12) snf current use of anticoagulant Code(s): Z79.01 - 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 HELPER (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 OF 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 (13) Morbid obesity Code(s): E66.01 - MORBID (SEVERE) OBESITY DUE TO EXCESS CALORIES (14) Pulmonary embolus Code(s): I26.99 - OTHER PULMONARY EMBOLISM WITHOUT ACUTE COR PULMONALE (15) Pulmonary hypertension Code(s): I27.2 - OTHER SECONDARY PULMONARY HYPERTENSION * DO NOT USE * (16) SOB (shortness of breath) Code(s): R06.02 - SHORTNESS OF BREATH Assessment/Plan IMP SYMPTOMATIC ANEMIA COPD O2 DEPENDENT WITH CHRONIC HYPOXEMIC RESPIRATORY FAILURE CHRONIC THROMBOEMBOLIC PULMONARY HTN SUPRA-THERAPEUTIC INR corrected DIASTOLIC HF HTN MORBID OBESITY DM PLAN O2 INHALED BRONCHODILATORS NORMAL TRANSFUSION THRESHOLD MONITOR INR MONITOR H+H LASIX PREDNISONE DR FOX Problem List - Problems (1) CKD (chronic kidney disease) Code(s): N18.9 - CHRONIC KIDNEY DISEASE, UNSPECIFIED (2) Chronic diastolic (congestive) heart failure Code(s): I50.32 - CHRONIC DIASTOLIC (CONGESTIVE) HEART FAILURE (3) Supratherapeutic INR Code(s): R79.1 - ABNORMAL COAGULATION PROFILE (4) Symptomatic anemia Code(s): D64.9 - ANEMIA, UNSPECIFIED (5) Acute on chronic diastolic (congestive) heart failure Code(s): I50.33 - ACUTE ON CHRONIC DIASTOLIC (CONGESTIVE) HEART FAILURE (6) Anemia Code(s): D64.9 - ANEMIA, UNSPECIFIED Qualifiers: Anemia type: unspecified type Qualified Code(s): D64.9 - Anemia, unspecified (7) CHF (congestive heart failure) Code(s): I50.9 - HEART FAILURE, UNSPECIFIED (8) Chronic respiratory failure with hypoxia, on home O2 therapy Code(s): J96.11 - CHRONIC RESPIRATORY FAILURE WITH HYPOXIA; Z99.81 - DEPENDENCE ON SUPPLEMENTAL OXYGEN (9) DVT (deep venous thrombosis) Code(s): I82.409 - ACUTE EMBOLISM AND THOMBOS UNSP DEEP VN UNSP LOWER EXTREMITY (10) Diabetes Code(s): E11.9 - TYPE 2 DIABETES MELLITUS WITHOUT COMPLICATIONS (11) Hypertension Code(s): I10 - ESSENTIAL (PRIMARY) HYPERTENSION (12) 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
[2018-09-07] MEDS ORDERED: INSULIN SLIDING SCALE (NOVOLOG) 1 VIAL SQ ONE (12:40)
[2018-09-07 13:34] VITALS: BP 122/62; PULSE 87
== END 2018-09-07 14:11 | DRG 812 ==
LOC: JER 12:59 → JERBED 14:52 → J4S 23:48
PROVIDERS: ADMIT Internal Medicine; ATTEND Internal Medicine
PROC: 30233N1 Transfusion of Nonautologous Red Blood Cells into Peripheral Vein, Percutaneous Approach (ICD-10-PCS; principal; 2018-08-31)
DX: D50.0 Iron deficiency anemia secondary to blood loss (chronic) (principal); Z68.43 Body mass index [BMI] 50.0-59.9, adult; I13.0 Hypertensive heart and chronic kidney disease with heart failure and stage 1 through stage 4 chronic kidney disease, or unspecified chronic kidney disease; I50.32 Chronic diastolic (congestive) heart failure; J96.11 Chronic respiratory failure with hypoxia; N39.0 Urinary tract infection, site not specified; D64.9 Anemia, unspecified; E66.01 Morbid (severe) obesity due to excess calories; I27.20 Pulmonary hypertension, unspecified; E11.22 Type 2 diabetes mellitus with diabetic chronic kidney disease; R79.1 Abnormal coagulation profile; I25.10 Atherosclerotic heart disease of native coronary artery without angina pectoris; R26.81 Unsteadiness on feet; N18.9 Chronic kidney disease, unspecified; H54.62 Unqualified visual loss, left eye, normal vision right eye; B96.1 Klebsiella pneumoniae [K. pneumoniae] as the cause of diseases classified elsewhere; I48.0 Paroxysmal atrial fibrillation; K59.00 Constipation, unspecified; J44.9 Chronic obstructive pulmonary disease, unspecified; G71.11 Myotonic muscular dystrophy; Z86.73 Personal history of transient ischemic attack (TIA), and cerebral infarction without residual deficits; Z86.711 Personal history of pulmonary embolism; Z86.718 Personal history of other venous thrombosis and embolism; Z99.81 Dependence on supplemental oxygen; Z79.01 Long term (current) use of anticoagulants; Z79.52 Long term (current) use of systemic steroids
CPT/HCPCS: 36415; 36430; 71045-TC-FY; 80053; 81003; 81015; 82272; 82550; 82728; 82962; 83540; 83550; 84252; 84436; 84443; 84484; 85025; 85044; 85610; 85730; 86850; 86900; 86901; 86922; 87086; 87186; 93005; 93010; 94640; 97162-GP; 99285-25; J1756; P9038; P9058